=== PATIENT | female | born 1985 | race Caucasian/White ===

== ENCOUNTER → 2023-05-24 | Emergency (ER) | payer BC ==
[~2023-05-24] MED LIST: CODEINE 30MG/APAP 300MG TAB ONE; HYDROCODONE/APAP 10/325 TAB ONE; HYDROCORTISONE SUC 100 MG INJ ONE; LORAZEPAM 1 MG TABLET ONE; MORPHINE 4 MG/ML SYR ONE; NA CHLORIDE 0.9% 1,000 ML ONE; ONDANSETRON 4 MG/2 ML VIAL ONE; PROMETHAZINE 25 MG TABLET ONE; methocarbamoL 500 MG TAB ONE
--- OUTSIDE RECORDS SUMMARY | 2023-05-24 06:32 | XMS REPORT | Continuity of Care Document ---
Author Name Unknown Address [address] [facility] [address] [id number] [facility] thconnect Address [address] [facility] [address] [place] [address] Care Team Providers Care Printed Circuit Layout Taper Name Role Phone PCP, PATIENT DOES NOT HAVE A Primary Care Physic renny Unavailable HORTENCIA MACEDO Attending Clinician Unavailable HUMPHREY GOLDSTEIN Attending Clinician Unavailable Leon WYMAN, Ta Avila Attending Clinician [phone] Pcp-Lab Attending Clinician Unavailable Steve Redd MD Attending Clinician [phone] STEVE REDD Attending Clinician Unavail able Floyd Gallegos MD Attending Clinician [phone] LUC MOSER Attending Clinician Unavailable Buck Ziegler MD Attending Clinician [phone] Luc Moser MD Attending Clinician [phone] Kadie Hardin Attending Clinician UnavailEVELYN Loomis Attending Clinician UnaBARRIE Marcus Attending Clinician UnavailShilo Taylor Attending Clinician Unavailable Evelyn Hickey MD Attending Clinician [phone] Adolph WYMAN, Norbert Attending Clinician [phone] Pcp, Patient Does Not Have A Attending Clinician Vtc-Lab Attending Clinician Unavailable Bianka WYMAN, Cristina Garcia Attending Clinician +[phone] Michael WYMAN, Humphrey Attending Clinician [phone] Doctor Unassigned, Hays Attending Clinician U lilibeth Bourgeois RN, Hoa Attending Clinician Unavailable Crow RIVERS, Mary Byers Attending Clinician + [phone] DIALLO RUVALCABA Attending Clinician Unavailable Lanie WYMAN, Marcel Attending Clinician [phone] Kelly Lim MD Attending Clinician [phone] Diallo Ruvalcaba DO Attending Clinician [phone] Ty HORNE, Dequan Attending Clinician [phone] DEQUAN GHOTRA Attending Clinician Unavailable Unknown, Attending Attending Clinician Unavailab uziel Hilton MD, Jh Clinton Attending Clinician + [phone] Racheal Sierra MD Attending Clinician Unavailab le Lab, [facility] Attending Clinician Unavailable Ronn Frankel MD Attending Clinician [phone] RONN FRANKEL Attending Clinician Unavaila RACHEAL Renner Attending Clinician Unavailable Jose Juan Zepeda MD Attending Clinician [phone] REYMUNDO NOWAK Attending Clinician Unavailable Reymundo Nowak MD Attending Clinician [phone] Rolo Fuentes MD Attending Clinician + [phone] ROLO FUENTES Attending Clinician Unavailab KELLY Morales Attending Clinician Unavailab ROBERT Long II Attending Clinician Unav olamide Villaseñor MD, Haroon Attending Clinician [phone] Dina WEEKS MD, Michael James Attending Clinician Louie RIVERS, Cesar R Attending Clinician Unavailelizabeth ramírez Only, Colleen Uc Test Attending Clinician UnavailNoah De La Paz Attending Clinician [phone] NOAH MUÑOZ Attending Clinician Unavailable Cristina Foster NP Attending Clinician + [phone] CRISTINA FOSTER Attending Clinician Unavailab TA Mcknight Attending Clinician Unavaila Amber Kern Attending Clinician [phone] AMBER HURTADO Attending Clinician Unavailable Therapy, [facility] Attending Clinician Unavailable Db Daily MD Attending Clinician [phone] DB DAILY Attending Clinician Unavailable Only, Fri Cbc Test Attending Clinician Unavailab Chong Bacon DO Attending Clinician [phone] CHONG ZAAR Attending Clinician Unavail able UNKNOWN, ATTENDING Attending Clinician Unavailab uziel Camarillo RN, Belkys Attending Clinician Unavailable Gabe Dawkins MD Attending Clinician + [phone] Emily Coles Attending Clinician +[phone] [facility] Attending Clinician Unavail able Radiology Attending Clinician Unavailable RADIOLOGY Attending Clinician Unavailable Osmany Zuñiga MD Attending Clinician + [phone] OSMANY ZUÑIGA Attending Clinician Unavailable Hoa Pham MA Attending Clinician Unavailelizabeth e [facility]-Lab Attending Clinician Unavailable GABE DAWKINS Attending Clinician Unavailab Sindy Lowe Attending Clinician [phone] JENI LOMBARDI Attending Clinician Unavailable VIRGILIO UNDERWOOD Attending Clinician Unavailable Aure Smith Attending Clinician + [phone] AURE KNIGHT Attending Clinician Unavailabl Rebecca Rodriguez RN Attending Clinician Unavailable Raudel, [facility] Resident Attending Clinician Unavailab Roberta Huitron MD Attending Clinician [phone] May Moore MD Attending Clinician +- [phone] Luanne Toribio Attending Clinician +[phone] LUANNE BARCENAS Attending Clinician Unavailable SJ MEDELLIN Attending Clinician Unavailable MONCHO PEÑA Attending Clinician Unavailable Lab, [facility]-Rmchp Attending Clinician Unavailable 1, [facility] U[facility] Room Attending Clinician Unavaila Sj Beebe Attending Clinician [phone] Meera Azar MD Attending Clinician [phone] Thomas FIFTH HAND, Rosmery Attending Clinician [phone] Blessing WYMAN, Uche Avila Attending Clinician +- [phone] Fellow, Jose [facility] Attending Clinician Un available Kirsten WYMAN, Bharathi Maldonado Attending Clinician [phone] Moncho Peña Attending Clinician [phone] Felisa Orozco MD Attending Clinician [phone] Madalyn WYMAN, Zoë Crabtree Attending Clinician + [phone] Uche Barcenas Attending Clinician +[phone] Boone Jones MD Attending Clinician [phone] Lit WYMAN, Ami Attending Clinician [phone] Visit/Fp, [facility] Nurse Attending Clinician Un available Trimester, [facility] Res-1st Attending Clinician Unavailable BOONE JONES Attending Clinician Unavailable MORRICAL, BUCK O Admitting Clinician Unavaila Darin Ramirez Admitting Clinician Unavailab le Physician, No Primary or Family Admitting Clinic renny Unavailable KELLY LIM Admitting Clinician Unavailab uziel Lim MD, Kelly Shah Admitting Clinician [phone] REYMUNDO NOWAK Admitting Clinician Unavailable Reymundo Nowak MD Admitting Clinician [phone] ROBERT ARROYO II Admitting Clinician Unav olamide Arroyo II, MD, Michael James Admitting Clinician AURE KNIGHT Admitting Clinician UnavailRACHEAL Interiano Admitting Clinician Unavailable Payers Payer Name Policy Type Policy Number Effective Date Expirati on Date Source BCBS FED SELECT [id number] 2019 00:00:00 [facility] [id number] 2019 00:00:00 2023 00:00:00 Problems Condition Name Condition Details Condition Category Status Onset Date Resolution Date Last Treatment Date Treating Clinician Comments Source Sepsis Sepsis Disease Active 2023-1 0-21 00:00: 00 [facility] Elevated brain natriureti c peptide (BNP) level Elevated brain natriureti c peptide (BNP) level Disease Active 2022-05 0-21 00:00: 00 [facility] Stage 5 chronic kidney disease Stage 5 chronic kidney disease Disease Active 2022-05 0-21 00:00: 00 [facility] Symptomati c anemia Symptomati c anemia Disease Active 6- 00:00: 00 [facility] Metabolic acidosis Metabolic acidosis Disease Active 6 00:00: 00 [facility] Oral candidiasi s Oral candidiasi s Disease Active 6 00:00: 00 [facility] SOB (shortness of breath) SOB (shortness of breath) Disease Active 6 00:00: 00 [facility] Hypokalemi a Hypokalemi a Disease Active 4-20 00:00: 00 [facility] Symptomati c anemia Symptomati c anemia Disease Active 4- 00:00: 00 [facility] Fatigue Fatigue Disease Active 1- 00:00: 00 [facility] Leukocytos is Leukocytos is Disease Active 1- 00:00: 00 [facility] Bacteriuri a Bacteriuri a Disease Active 1-10 00:00: 00 [facility] Thrombocyt osis Thrombocyt osis Disease Active 1-10 00:00: 00 [facility] Hypocalcem ia Hypocalcem ia Disease Active 1-10 00:00: 00 [facility] Hypermagne semia Hypermagne semia Disease Active 1-10 00:00: 00 [facility] Elevated liver enzymes Elevated liver enzymes Disease Active 1-10 00:00: 00 [facility] COVID-19 COVID-19 Disease Active 1- 00:00: 00 [facility] Stage 4 chronic kidney disease Stage 4 chronic kidney disease Disease Active 05-27 00:00: 00 [facility] Refractive error Refractive error Disease Active 2016-05 00:00: 00 [facility] 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 Disease Active 2016-05 00:00: 00 [facility] Dehydratio n Dehydratio n Disease Active 2015-05 00:00: 00 [facility] 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 ressive medication Disease Active 2015-05 00:00: 00 [facility] Renal transplant recipient Renal transplant recipient Disease Active 2015-05 00:00: 00 [facility] 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 Disease Recurre aze 2015-05 00:00: 00 [facility] Senile nuclear sclerosis, bilateral Senile nuclear sclerosis, bilateral Disease Recurre aze 2015-05 0 00:00: 00 [facility] 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) Disease Recurre aze 2015-05 0-11 00:00: 00 [facility] Anemia of chronic renal failure, stage 5 Anemia of chronic renal failure, stage 5 Disease Recurre aze 9-23 00:00: 00 [facility] Cervical high risk human papillomav irus (HPV) DNA test positive Cervical high risk human papillomav irus (HPV) DNA test positive Disease Active 08-18 00:00: 00 [facility] Atypical squamous cells of undetermin ed significan ce (ASCUS) on Papanicola ou smear of cervix Atypical squamous cells of undetermin ed significan ce (ASCUS) on Papanicola ou smear of cervix Disease Recurre aze 08-18 00:00: 00 [facility] Failed kidney transplant Failed kidney transplant Disease Recurre aze 16 00:00: 00 Overview: Formattin g of this note might be different from the original. 08/14/2008 1st transplan t at [facility] Anxiety Anxiety Disease Recurre nce 09-13 00:00: 00 [facility] GERD (gastroeso phageal reflux disease) GERD (gastroeso phageal reflux disease) Disease Active 09-13 00:00: 00 [facility] Essential hypertensi on Essential hypertensi on Disease Recurre [facility] 07-24 00:00: 00 [facility] HTN (hypertens ion) HTN (hypertens ion) Disease Active 07-24 00:00: 00 [facility] Anemia Anemia Disease Active 05-26 00:00: 00 Overview: Formattin g of this note might be different from the original. ICD10 Diagnosis Term Mix Maker Utility [facility] HPV (human papilloma virus) anogenital infection HPV (human papilloma virus) anogenital infection Disease Recurre [facility] Hyperlipid emia Hyperlipid emia Disease Recurre [facility] Allergies, Adverse Reactions, Alerts Allergy Name Allergy Type Status Severity Reaction(s) Onset Date Inactive Date Treating Clinician Comments Source HYDRALAZ INE DRUG INGREDI Active Other-Cmnt 05-14 00:00: 00 [facility] Hydralaz ine Propensi ty to adverse reaction s Active Other - See comments 05-14 00:00: 00 Per Nephrolog ist do not take [facility] Beta-Blo ckers (Beta-Ad renergic Bloc DA Active SV halucinate and affects kidneys according to pt 2022-05 00:00: 00 [facility] hydralaz ine DA Active U COMA 2022-05 00:00: 00 [facility] TI Inhibito rs DA Active SV hallucinate and affects kidney according to pt 2022-05 00:00: 00 [facility] No Known Allergie s DA Active U 2022-05 00:00: 00 [facility] Ti Inhibito rs Propensi ty to adverse reaction s Active Other - See comments 09-02 00:00: 00 Contraind icated with CKD/FSGS [facility] Beta-Blo ckers (Beta-Ad renergic Blocking Agts) Propensi ty to adverse reaction s to drug Active Hallucinatio ns 09-02 00:00: 00 [facility] BETA-BLO CKERS (BETA-AD RENERGIC BLOCKING AGTS) Drug Class Active High Hallucinates 09-02 00:00: 00 [facility] TI INHIBITO RS Drug Class Active Other-Cmnt 09-02 00:00: 00 [facility] Ti Inhibito rs Propensi ty to adverse reaction s Active Other - See comments 09-02 00:00: 00 Contraind icated with CKD/FSGS [facility] Beta-Blo ckers (Beta-Ad renergic Blocking Agts) Propensi ty to adverse reaction s to drug Active Hallucinatio ns 09-02 00:00: 00 [facility] Social History Social Habit Start Date Stop Date Quantity Comments Source History SDOH Social Connections Get Together [facility] History SDOH Social Connections [facility] History SDOH Social Connections Membership [facility] History SDOH Social Connections Meetings [facility] Gender identity [facility] Alcohol intake 2023-05-18 00:00:00 2023-05-18 00:00:00 0 /d [facility] History of Social function 2022-11-11 00:00:00 2022-11-11 00:00:00 [facility] History SDOH Alcohol Frequency 2022-10-08 00:00:00 2022-10-08 00:00:00 1 [facility] History SDOH Social Connections Phone 2022-10-08 00:00:00 2022-10-08 00:00:00 5 [facility] History SDOH Social Connections Living 2022-10-08 00:00:00 2022-10-08 00:00:00 3 [facility] History SDOH Physical Activity DPW 2022-10-08 00:00:00 2022-10-08 00:00:00 0 [facility] History SDOH Physical Activity MPS 2022-10-08 00:00:00 2022-10-08 00:00:00 0 [facility] History SDOH Financial 2022-10-08 00:00:00 2022-10-08 00:00:00 5 [facility] History SDOH Food Worry 2022-10-08 00:00:00 2022-10-08 00:00:00 1 [facility] History SDOH Food Scarcity 2022-10-08 00:00:00 2022-10-08 00:00:00 1 [facility] History SDOH Transport Med 2022-10-08 00:00:00 2022-10-08 00:00:00 2 [facility] History SDOH Housing Unable to Pay 2022-10-08 00:00:00 2022-10-08 00:00:00 2 [facility] History SDOH Housing Places Lived 2022-10-08 00:00:00 2022-10-08 00:00:00 1 [facility] History SDOH Housing Homeless Last Year 2022-10-08 00:00:00 2022-10-08 00:00:00 2 [facility] History SDOH Transport Non-Med 2022-09-09 00:00:00 2022-09-09 00:00:00 2 [facility] Exposure to SARS-CoV-2 (event) 2022-08-29 00:00:00 2022-09-08 15:45:00 Not sure [facility] Tobacco use and exposure 2022-09-08 00:00:00 2022-09-08 00:00:00 Smokeless tobacco non-user [facility] History SDOH Alcohol Std Drinks 2022-05-11 00:00:00 2022-05-11 00:00:00 0 [facility] History SDOH Alcohol Binge 2022-05-11 00:00:00 2022-05-11 00:00:00 1 [facility] Tobacco Comment 2022-02-11 00:00:00 2022-02-11 00:00:00 n/a [facility] Sex Assigned At 1985 00:00:00 1985 00:00:00 [facility] Smoking Status Start Date Stop Date Source Never smoked tobacco [facility] Medications Ordered Medication Name Filled Medication Name Start Date Stop Date Current Medication? Ordering Clinician Indication Dosage Frequency Signature (SIG) Comments Components Source famotidine 20 mg tablet 05-18 00:00: 00 Yes [id number] 20mg Take 1 tablet by mouth in the morning and 1 tablet in the evening. [facility] sennosides- docusate sodium (SENOKOT-S) 8.6-50 mg per tablet 05-18 00:00: 00 Yes [id number] 1{tbl} Take 1 tablet by mouth in the morning. [facility] traMADoL 50 mg tablet 05-18 00:00: 00 Yes [id number] 50mg Take 1 tablet by mouth once daily as needed for Pain (scale 7-10). Indication s: acute pain [facility] famotidine 20 mg tablet 05-18 00:00: 00 Yes [id number] 20mg Take 1 tablet by mouth in the morning and 1 tablet in the evening. [facility] sennosides- docusate sodium (SENOKOT-S) 8.6-50 mg per tablet 05-18 00:00: 00 Yes [id number] 1{tbl} Take 1 tablet by mouth in the morning. [facility] traMADoL 50 mg tablet 05-18 00:00: 00 Yes [id number] 50mg Take 1 tablet by mouth once daily as needed for Pain (scale 7-10). Indication s: acute pain [facility] famotidine 20 mg tablet 05-18 00:00: 00 Yes [id number] 20mg Take 1 tablet by mouth in the morning and 1 tablet in the evening. [facility] sennosides- docusate sodium (SENOKOT-S) 8.6-50 mg per tablet 05-18 00:00: 00 Yes [id number] 1{tbl} Take 1 tablet by mouth in the morning. [facility] traMADoL 50 mg tablet 05-18 00:00: 00 Yes [id number] 50mg Take 1 tablet by mouth once daily as needed for Pain (scale 7-10). Indication s: [facility] tablet 05-18 00:00: 00 Yes [id number] 20mg Take 1 tablet by mouth in the morning and 1 tablet in the evening. [facility] sennosides- docusate sodium (SENOKOT-S) 8.6-50 mg per tablet - 00:00: 00 Yes [id number] 1{tbl} Take 1 tablet by mouth in the morning. [facility] tra[facility] mg tablet 0 05-18 00:00: 00 Yes [id number] 50mg Take 1 tablet by mouth once daily as needed for Pain (scale 7-10). Indication s: acute pain [facility] famotidine 20 mg tablet 05-18 00:00: 00 Yes [id number] 20mg Take 1 tablet by mouth in the morning and 1 tablet in the evening. [facility] sennosides- docusate sodium (SENOKOT-S) 8.6-50 mg per tablet 05-18 00:00: 00 Yes [id number] 1{tbl} Take 1 tablet by mouth in the morning. [facility] tra[facility] mg tablet 05-18 00:00: 00 Yes [id number] 50mg Take 1 tablet by mouth once daily as needed for Pain (scale 7-10). Indication s: acute pain [facility] famotidine 20 mg tablet 05-18 00:00: 00 Yes [id number] 20mg Take 1 tablet by mouth in the morning and 1 tablet in the evening. [facility] sennosides- docusate sodium (SENOKOT-S) 8.6-50 mg per tablet 05-18 00:00: 00 Yes [id number] 1{tbl} Take 1 tablet by mouth in the morning. [facility] traMADoL 50 mg tablet 0 17 00:00: 00 Yes [id number] 50mg Take 1 tablet by mouth once daily as needed for Pain (scale 7-10). Indication s: acute pain [facility] diphenhydrA MINE (BENADRYL) injection 25 mg 05-14 13:45: 00 05-14 13:38 :00 No 25mg 25 mg, Slow IV Push, ONCE, 1 dose, On 05/14/23 at 0745, [facility] [facility] metoclopram deepak HCl (REGLAN) injection 10 mg 05-14 13:45: 00 05-14 13:38 :00 No 10mg 10 mg, Slow IV Push, ONCE, 1 dose, On 05/14/23 at 0745, [facility] FENTanyl PF (SUBLIMAZE (PF)) injection 50 mcg 05-14 12:45: 00 05-14 12:02 :00 No 50ug 50 mcg, Slow IV Push, ONCE, 1 dose, On 05/14/23 at 0645, Routine [facility] ondansetron (ZOFRAN (PF)) injection 4 mg 05-14 12:00: 00 05-14 12:02 :00 No 4mg 4 mg, Slow IV Push, ONCE, 1 dose, On 05/14/23 at 0600, [facility] acetaminoph en-codeine 300-15 mg tablet 05-14 00:00: 00 Yes [id number] 1{tbl} Take 1 tablet by mouth every 8 (eight) hours. Indication s: acute pain [facility] docusate 100 mg capsule 05-14 00:00: 00 Yes [id number] 100mg Take 1 capsule by mouth in the morning. [facility] proMETHazin e 12.5 mg tablet 05-14 00:00: 00 Yes [id number] 12.5mg Take 1 tablet by mouth every 8 (eight) hours. [facility] acetaminoph en-codeine 300-15 mg tablet 05-14 00:00: 00 Yes [id number] 1{tbl} Take 1 tablet by mouth every 8 (eight) hours. Indication s: acute pain [facility] proMETHazin e 12.5 mg tablet 4-0 -13 00:00: 00 Yes [id number] 12.5mg Take 1 tablet by mouth every 8 (eight) hours. [facility] acetaminoph en-codeine 300-15 mg tablet 2023-0 -13 00:00: 00 Yes [id number] 1{tbl} Take 1 tablet by mouth every 8 (eight) hours. Indication s: acute pain [facility] proMETHazin e 12.5 mg tablet 4-0 -13 00:00: 00 Yes [id number] 12.5mg Take 1 tablet by mouth every 8 (eight) hours. [facility] acetaminoph en-codeine 300-15 mg tablet 2023-0 -13 00:00: 00 Yes [id number] 1{tbl} Take 1 tablet by mouth every 8 (eight) hours. Indication s: acute pain [facility] proMETHazin e 12.5 mg tablet 4-0 -13 00:00: 00 Yes [id number] 12.5mg Take 1 tablet by mouth every 8 (eight) hours. [facility] acetaminoph en-codeine 300-15 mg tablet 2023-0 -13 00:00: 00 Yes [id number] 1{tbl} Take 1 tablet by mouth every 8 (eight) hours. Indication s: acute pain [facility] proMETHazin e 12.5 mg tablet 2023-0 -13 00:00: 00 Yes [id number] 12.5mg Take 1 tablet by mouth every 8 (eight) hours. [facility] acetaminoph en-codeine 300-15 mg tablet 2023-0 -13 00:00: 00 Yes [id number] 1{tbl} Take 1 tablet by mouth every 8 (eight) hours. Indication s: acute pain [facility] proMETHazin e 12.5 mg tablet 4-0 -13 00:00: 00 Yes [id number] 12.5mg Take 1 tablet by mouth every 8 (eight) hours. [facility] acetaminoph en-codeine 300-15 mg tablet 4-0 -13 00:00: 00 Yes [id number] 1{tbl} Take 1 tablet by mouth every 8 (eight) hours. Indication s: acute pain [facility] proMETHazin e 12.5 mg tablet 05-14 00:00: 00 Yes [id number] 12.5mg Take 1 tablet by mouth every 8 (eight) hours. [facility] docusate 100 mg capsule - 00:00: 00 05-18 00:00 :00 No [id number] 100mg Take 1 capsule by mouth in the morning. [facility] docusate 100 mg capsule 05-14 00:00: 00 05-18 00:00 :00 No [id number] 100mg Take 1 capsule by mouth in the morning. [facility] docusate 100 mg capsule 05-14 00:00: 00 05-18 00:00 :00 No [id number] 100mg Take 1 capsule by mouth in the morning. [facility] GUANFACINE ER 2 mg tablet 2022-05 00:00: 00 Yes 2mg TAKE 1 TABLET BY MOUTH EVERY DAY IN THE MORNING [facility] GUANFACINE ER 2 mg tablet 2022-05 00:00: 00 Yes 2mg TAKE 1 TABLET BY MOUTH EVERY DAY IN THE MORNING [facility] GUANFACINE ER 2 mg tablet 2022-05 00:00: 00 Yes 2mg TAKE 1 TABLET BY MOUTH EVERY DAY IN THE MORNING [facility] GUANFACINE ER 2 mg tablet 2022-05 00:00: 00 Yes 2mg TAKE 1 TABLET BY MOUTH EVERY DAY IN THE MORNING [facility] GUANFACINE ER 2 mg tablet 2022-05 00:00: 00 Yes 2mg TAKE 1 TABLET BY MOUTH EVERY DAY IN THE MORNING [facility] GUANFACINE ER 2 mg tablet 2022-05 00:00: 00 Yes 2mg TAKE 1 TABLET BY MOUTH EVERY DAY IN THE MORNING [facility] GUANFACINE ER 2 mg tablet 2022-05 00:00: 00 Yes 2mg TAKE 1 TABLET BY MOUTH EVERY DAY IN THE MORNING [facility] GUANFACINE ER 2 mg tablet 2022-05 00:00: 00 Yes 2mg TAKE 1 TABLET BY MOUTH EVERY DAY IN THE MORNING [facility] GUANFACINE ER 2 mg tablet 2022-05 00:00: 00 Yes 2mg TAKE 1 TABLET BY MOUTH EVERY DAY IN THE MORNING [facility] GUANFACINE ER 2 mg tablet 2022-05 00:00: 00 Yes 2mg TAKE 1 TABLET BY MOUTH EVERY DAY IN THE MORNING [facility] guanFACINE ER 2 mg tablet 2022-05 00:00: 00 Yes 2mg Take 1 tablet by mouth in the morning. [facility] guanFACINE ER 2 mg tablet 2022-05 00:00: 00 Yes 2mg Take 1 tablet by mouth in the morning. [facility] sodium bicarbonate 650 mg tablet 2022-05 00:00: 00 Yes [id number] 1300mg Take 2 tablets by mouth in the morning and 2 tablets at noon and 2 tablets in the evening. [facility] guanFACINE ER 2 mg tablet 2022-05 00:00: 00 Yes 2mg Take 1 tablet by mouth in the morning. [facility] sodium bicarbonate 650 mg tablet 2022-05 00:00: 00 Yes [id number] 1300mg Take 2 tablets by mouth in the morning and 2 tablets at noon and 2 tablets in the evening. [facility] guanFACINE ER 2 mg tablet 2022-05 00:00: 00 Yes 2mg Take 1 tablet by mouth in the morning. [facility] sodium bicarbonate 650 mg tablet 2022-05 00:00: 00 Yes [id number] 1300mg Take 2 tablets by mouth in the morning and 2 tablets at noon and 2 tablets in the evening. [facility] sodium bicarbonate 650 mg tablet 2022-05 00:00: 00 Yes [id number] 1300mg Take 2 tablets by mouth in the morning and 2 tablets at noon and 2 tablets in the evening. [facility] sodium bicarbonate 650 mg tablet 2022-05 00:00: 00 Yes [id number] 1300mg Take 2 tablets by mouth in the morning and 2 tablets at noon and 2 tablets in the evening. [facility] sodium bicarbonate 650 mg tablet 2022-05 00:00: 00 Yes [id number] 1300mg Take 2 tablets by mouth in the morning and 2 tablets at noon and 2 tablets in the evening. [facility] sodium bicarbonate 650 mg tablet 2022-05 00:00: 00 Yes [id number] 1300mg Take 2 tablets by mouth in the morning and 2 tablets at noon and 2 tablets in the evening. [facility] sodium bicarbonate 650 mg tablet 2022-05 00:00: 00 Yes [id number] 1300mg Take 2 tablets by mouth in the morning and 2 tablets at noon and 2 tablets in the evening. [facility] sodium bicarbonate 650 mg tablet 2022-05 00:00: 00 Yes [id number] 1300mg Take 2 tablets by mouth in the morning and 2 tablets at noon and 2 tablets in the evening. [facility] sodium bicarbonate 650 mg tablet 2022-05 00:00: 00 Yes [id number] 1300mg Take 2 tablets by mouth in the morning and 2 tablets at noon and 2 tablets in the evening. [facility] sodium bicarbonate 650 mg tablet 2022-05 00:00: 00 Yes [id number] 1300mg Take 2 tablets by mouth in the morning and 2 tablets at noon and 2 tablets in the evening. [facility] sodium bicarbonate 650 mg tablet 2022-05 00:00: 00 Yes [id number] 1300mg Take 2 tablets by mouth in the morning and 2 tablets at noon and 2 tablets in the evening. [facility] sodium bicarbonate 650 mg tablet 2022-05 00:00: 00 Yes [id number] 1300mg Take 2 tablets by mouth in the morning and 2 tablets at noon and 2 tablets in the evening. [facility] sodium bicarbonate 650 mg tablet 2022-05 00:00: 00 Yes [id number] 1300mg Take 2 tablets by mouth in the morning and 2 tablets at noon and 2 tablets in the evening. [facility] guanFACINE ER 2 mg tablet 2022-05 00:00: 00 04-21 00:00 :00 No 2mg Take 1 tablet by mouth in the morning. [facility] fluticasone propionate 50 mcg/actuati on nasal spray 2022-05 00:00: 00 Yes [id number] 2{spray } Use 2 Sprays in each nostril in the morning and 2 Sprays in the evening. [facility] fluticasone propionate 50 mcg/actuati on nasal spray 2022-05 00:00: 00 Yes [id number] 2{spray } Use 2 Sprays in each nostril in the morning and 2 Sprays in the evening. [facility] fluticasone propionate 50 mcg/actuati on nasal spray 2022-05 00:00: 00 Yes [id number] 2{spray } Use 2 Sprays in each nostril in the morning and 2 Sprays in the evening. [facility] fluticasone propionate 50 mcg/actuati on nasal spray 2022-05 00:00: 00 Yes [id number] 2{spray } Use 2 Sprays in each nostril in the morning and 2 Sprays in the evening. [facility] fluticasone propionate 50 mcg/actuati on nasal spray 2022-05 00:00: 00 Yes [id number] 2{spray } Use 2 Sprays in each nostril in the morning and 2 Sprays in the evening. [facility] fluticasone propionate 50 mcg/actuati on nasal spray 2022-05 00:00: 00 Yes [id number] 2{spray } Use 2 Sprays in each nostril in the morning and 2 Sprays in the evening. [facility] fluticasone propionate 50 mcg/actuati on nasal spray 2022-05 00:00: 00 Yes [id number] 2{spray } Use 2 Sprays in each nostril in the morning and 2 Sprays in the evening. [facility] fluticasone propionate 50 mcg/actuati on nasal spray 2022-05 00:00: 00 Yes [id number] 2{spray } Use 2 Sprays in each nostril in the morning and 2 Sprays in the evening. [facility] fluticasone propionate 50 mcg/actuati on nasal spray 2022-05 00:00: 00 Yes [id number] 2{spray } Use 2 Sprays in each nostril in the morning and 2 Sprays in the evening. [facility] fluticasone propionate 50 mcg/actuati on nasal spray 2022-05 00:00: 00 Yes [id number] 2{spray } Use 2 Sprays in each nostril in the morning and 2 Sprays in the evening. [facility] fluticasone propionate 50 mcg/actuati on nasal spray 2022-05 00:00: 00 Yes [id number] 2{spray } Use 2 Sprays in each nostril in the morning and 2 Sprays in the evening. [facility] fluticasone propionate 50 mcg/actuati on nasal spray 2022-05 00:00: 00 Yes [id number] 2{spray } Use 2 Sprays in each nostril in the morning and 2 Sprays in the evening. [facility] fluticasone propionate 50 mcg/actuati on nasal spray 2022-05 00:00: 00 Yes [id number] 2{spray } Use 2 Sprays in each nostril in the morning and 2 Sprays in the evening. [facility] fluticasone propionate 50 mcg/actuati on nasal spray 2022-05 00:00: 00 Yes [id number] 2{spray } Use 2 Sprays in each nostril in the morning and 2 Sprays in the evening. [facility] fluticasone propionate 50 mcg/actuati on nasal spray 2022-05 00:00: 00 Yes [id number] 2{spray } Use 2 Sprays in each nostril in the morning and 2 Sprays in the evening. [facility] fluticasone propionate 50 mcg/actuati on nasal spray 2022-05 00:00: 00 Yes [id number] 2{spray } Use 2 Sprays in each nostril in the morning and 2 Sprays in the evening. [facility] fluticasone propionate 50 mcg/actuati on nasal spray 2022-05 00:00: 00 Yes [id number] 2{spray } Use 2 Sprays in each nostril in the morning and 2 Sprays in the evening. [facility] fluticasone propionate 50 mcg/actuati on nasal spray 2022-05 00:00: 00 Yes [id number] 2{spray } Use 2 Sprays in each nostril in the morning and 2 Sprays in the evening. [facility] fluticasone propionate 50 mcg/actuati on nasal spray 2022-05 00:00: 00 Yes [id number] 2{spray } Use 2 Sprays in each nostril in the morning and 2 Sprays in the evening. [facility] fluticasone propionate 50 mcg/actuati on nasal spray 2022-05 00:00: 00 Yes [id number] 2{spray } Use 2 Sprays in each nostril in the morning and 2 Sprays in the evening. [facility] fluticasone propionate 50 mcg/actuati on nasal spray 2022-05 00:00: 00 03-04 00:00 :00 No [id number] 2{spray } Use 2 Sprays in each nostril in the morning and 2 Sprays in the evening. [facility] sodium bicarbonate 650 mg tablet 2022-05 00:00: 00 Yes [id number] 1300mg Take 2 tablets by mouth in the morning and 2 tablets in the evening. [facility] sodium bicarbonate 650 mg tablet 2022-05 00:00: 00 Yes [id number] 1300mg Take 2 tablets by mouth in the morning and 2 tablets in the evening. [facility] sodium bicarbonate 650 mg tablet 2022-05 00:00: 00 Yes [id number] 1300mg Take 2 tablets by mouth in the morning and 2 tablets in the evening. [facility] sodium bicarbonate 650 mg tablet 2022-05 00:00: 00 Yes [id number] 1300mg Take 2 tablets by mouth in the morning and 2 tablets in the evening. [facility] sodium bicarbonate 650 mg tablet 2022-05 0- 00:00: 00 Yes [id number] 1300mg Take 2 tablets by mouth in the morning and 2 tablets in the evening. [facility] sodium bicarbonate 650 mg tablet 2022-05 0- 00:00: 00 Yes [id number] 1300mg Take 2 tablets by mouth in the morning and 2 tablets in the evening. [facility] sodium bicarbonate 650 mg tablet 2022-05 0 00:00: 00 Yes [id number] 1300mg Take 2 tablets by mouth in the morning and 2 tablets in the evening. [facility] sodium bicarbonate 650 mg tablet 2022-05 0 00:00: 00 Yes [id number] 1300mg Take 2 tablets by mouth in the morning and 2 tablets in the evening. [facility] sodium bicarbonate 650 mg tablet 2022-05 0 00:00: 00 Yes [id number] 1300mg Take 2 tablets by mouth in the morning and 2 tablets in the evening. [facility] sodium bicarbonate 650 mg tablet 2022-05 0 00:00: 00 Yes [id number] 1300mg Take 2 tablets by mouth in the morning and 2 tablets in the evening. [facility] sodium bicarbonate 650 mg tablet 2022-05 0 00:00: 00 Yes [id number] 1300mg Take 2 tablets by mouth in the morning and 2 tablets in the evening. [facility] sodium bicarbonate 650 mg tablet 2022-05 0 00:00: 00 Yes [id number] 1300mg Take 2 tablets by mouth in the morning and 2 tablets in the evening. [facility] sodium bicarbonate 650 mg tablet 2022-05 0 00:00: 00 03-28 00:00 :00 No [id number] 1300mg Take 2 tablets by mouth in the morning and 2 tablets in the evening. [facility] sodium bicarbonate 650 mg tablet 2022-05 0- 00:00: 00 03-28 00:00 :00 No [id number] 1300mg Take 2 tablets by mouth in the morning and 2 tablets in the evening. [facility] aspirin 81 mg EC tablet 2022-05 0-30 00:00: 00 Yes 81mg Take 1 tablet by mouth in the morning. [facility]-05 0-30 00:00: 00 Yes 81mg Take 1 tablet by mouth in the morning. [facility] aspirin 81 mg EC tablet 2022-05 0-30 00:00: 00 Yes 81mg Take 1 tablet by mouth in the morning. [facility] aspirin 81 mg EC tablet 2022-05 0-30 00:00: 00 Yes 81mg Take 1 tablet by mouth in the morning. [facility] aspirin 81 mg EC tablet 2022-05 0-30 00:00: 00 Yes 81mg Take 1 tablet by mouth in the morning. [facility] aspirin 81 mg EC tablet 2022-05 0-30 00:00: 00 Yes 81mg Take 1 tablet by mouth in the morning. [facility] aspirin 81 mg EC tablet 2022-05 0-30 00:00: 00 Yes 81mg Take 1 tablet by mouth in the morning. [facility] aspirin 81 mg EC tablet 2022-05 0-30 00:00: 00 Yes 81mg Take 1 tablet by mouth in the morning. [facility] aspirin 81 mg EC tablet 2022-05 0-30 00:00: 00 Yes 81mg Take 1 tablet by mouth in the morning. [facility] aspirin 81 mg EC tablet 2022-05 0-30 00:00: 00 Yes 81mg Take 1 tablet by mouth in the morning. [facility] aspirin 81 mg EC tablet 2022-05 0-30 00:00: 00 Yes 81mg Take 1 tablet by mouth in the morning. [facility] aspirin 81 mg EC tablet 2022-1 0-30 00:00: 00 Yes 81mg Take 1 tablet by mouth in the morning. [facility] aspirin 81 mg EC tablet 2022-1 0-30 00:00: 00 Yes 81mg Take 1 tablet by mouth in the morning. [facility] aspirin 81 mg EC tablet 2022- 0-30 00:00: 00 Yes 81mg Take 1 tablet by mouth in the morning. [facility] aspirin 81 mg EC tablet 2022-05 0-30 00:00: 00 Yes 81mg Take 1 tablet by mouth in the morning. [facility] aspirin 81 mg EC tablet 2022-05 0-30 00:00: 00 Yes 81mg Take 1 tablet by mouth in the morning. [facility] 2022-05 0-30 00:00: 00 Yes 81mg Take 1 tablet by mouth in the morning. [facility] 2022-05 0-30 00:00: 00 Yes 81mg Take 1 tablet by mouth in the morning. [facility] 2022-05 0-30 00:00: 00 Yes 81mg Take 1 tablet by mouth in the morning. [facility] 2022-05 0-30 00:00: 00 Yes 81mg Take 1 tablet by mouth in the morning. [facility] aspirin 81 mg EC tablet 2022-05 0-30 00:00: 00 Yes 81mg Take 1 tablet by mouth in the morning. [facility] aspirin 81 mg EC tablet 2022-05 030 00:00: 00 Yes 81mg Take 1 tablet by mouth in the morning. [facility] aspirin 81 mg EC tablet 2022-05 0-30 00:00: 00 Yes 81mg Take 1 tablet by mouth in the morning. [facility] aspirin 81 mg EC tablet 2022- 0-30 00:00: 00 Yes 81mg Take 1 tablet by mouth in the morning. [facility] aspirin 81 mg EC tablet 2022-05 0-30 00:00: 00 Yes 81mg Take 1 tablet by mouth in the morning. [facility] aspirin 81 mg EC tablet 2022-1 0-30 00:00: 00 Yes 81mg Take 1 tablet by mouth in the morning. [facility] aspirin 81 mg EC tablet 2022- 0-30 00:00: 00 Yes 81mg Take 1 tablet by mouth in the morning. [facility] aspirin 81 mg EC tablet 2022-1 0-30 00:00: 00 Yes 81mg Take 1 tablet by mouth in the morning. [facility] aspirin 81 mg EC tablet 2022-05 00:00: 00 Yes 81mg Take 1 tablet by mouth in the morning. [facility] aspirin 81 mg EC tablet 2022-05 00:00: 00 Yes 81mg Take 1 tablet by mouth in the morning. [facility] aspirin 81 mg EC tablet 2022-05 00:00: 00 Yes 81mg Take 1 tablet by mouth in the morning. [facility] mycophenola te sodium (MYFORTIC) EC tablet 720 mg 2022-05 14:00: 00 Yes 720mg 720 mg, Oral, QAM, First dose (after last modificati on) on 02/21/23 at 0900, Until Discontinu ed, Routine
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 [facility] hydrOXYzine (ATARAX) tablet 25 mg 2022-05 03:18: 00 02-21 03:59 :00 No 25mg 25 mg, Oral, ONCE, 1 dose, On 02/20/23 at 2230, Routine [facility] fluconazole 100 mg tablet 2022-05 00:00: 00 Yes [id number] 100mg Take 1 tablet by mouth in the morning. [facility] fluconazole 100 mg tablet 2022-05 00:00: 00 Yes [id number] 100mg Take 1 tablet by mouth in the morning. [facility] fluconazole 100 mg tablet 2022-05 00:00: 00 Yes [id number] 100mg Take 1 tablet by mouth in the morning. [facility] fluconazole 100 mg tablet 2022-05 00:00: 00 Yes [id number] 100mg Take 1 tablet by mouth in the morning. [facility] cefdinir 300 mg capsule 2022-05 00:00: 00 03-04 04:59 :00 No [id number] 300mg Take 1 capsule by mouth every 12 (twelve) hours for 10 days. [facility] cefdinir 300 mg capsule 2022- 0-23 00:00: 00 03-04 04:59 :00 No [id number] 300mg Take 1 capsule by mouth every 12 (twelve) hours for 10 days. [facility] cefdinir 300 mg capsule 2022- 0-23 00:00: 00 03-04 04:59 :00 No [id number] 300mg Take 1 capsule by mouth every 12 (twelve) hours for 10 days. [facility] cefdinir 300 mg capsule 2022- 0-23 00:00: 00 03-04 04:59 :00 No [id number] 300mg Take 1 capsule by mouth every 12 (twelve) hours for 10 days. [facility] cefdinir 300 mg capsule 2022- 0-23 00:00: 00 03-04 04:59 :00 No [id number] 300mg Take 1 capsule by mouth every 12 (twelve) hours for 10 days. [facility] cefdinir 300 mg capsule 2022- 0-23 00:00: 00 03-04 04:59 :00 No [id number] 300mg Take 1 capsule by mouth every 12 (twelve) hours for 10 days. [facility] cefdinir 300 mg capsule 2022- 0-23 00:00: 00 03-04 04:59 :00 No [id number] 300mg Take 1 capsule by mouth every 12 (twelve) hours for 10 days. [facility] cefdinir 300 mg capsule 2022- 0-23 00:00: 00 03-04 04:59 :00 No [id number] 300mg Take 1 capsule by mouth every 12 (twelve) hours for 10 days. [facility] cefdinir 300 mg capsule 2022- 0-23 00:00: 00 03-04 04:59 :00 No [id number] 300mg Take 1 capsule by mouth every 12 (twelve) hours for 10 days. [facility] cefdinir 300 mg capsule 2022- 0-23 00:00: 00 03-04 04:59 :00 No [id number] 300mg Take 1 capsule by mouth every 12 (twelve) hours for 10 days. [facility] cefdinir 300 mg capsule 2022-05 0 00:00: 00 03-04 04:59 :00 No [id number] 300mg Take 1 capsule by mouth every 12 (twelve) hours for 10 days. [facility] cefdinir 300 mg capsule 2022-05 00:00: 00 03-04 04:59 :00 No [id number] 300mg Take 1 capsule by mouth every 12 (twelve) hours for 10 days. [facility] cefdinir 300 mg capsule 2022-05 00:00: 00 03-04 04:59 :00 No [id number] 300mg Take 1 capsule by mouth every 12 (twelve) hours for 10 days. [facility] cefdinir 300 mg capsule 2022-05 00:00: 03-04 04:59 :00 No [id number] 300mg Take 1 capsule by mouth every 12 (twelve) hours for 10 days. [facility] fluconazole 100 mg tablet 2022-05 00:00: 00 02-28 00:00 :00 No [id number] 100mg Take 1 tablet by mouth in the morning. [facility] fluconazole 100 mg tablet 2022-05 00:00: 00 02-28 00:00 :00 No [id number] 100mg Take 1 tablet by mouth in the morning. [facility] fluconazole 100 mg tablet 2022-05 00:00: 00 02-28 00:00 :00 No [id number] 100mg Take 1 tablet by mouth in the morning. [facility] fluconazole 100 mg tablet 2022-05 00:00: 00 02-28 00:00 :00 No [id number] 100mg Take 1 tablet by mouth in the morning. [facility] mycophenola te sodium (MYFORTIC) EC tablet 360 mg 2022-05 0 22:00: 00 Yes 360mg 360 mg, Oral, QPM, First dose on [place] 02/20/23 at 1700, Until Discontinu ed, Routine
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
Reas on for Anti-Infec tive: Documented Infection< br>Documen josué Infection Site: Urine
D uration of Therapy: 7 days [facility] famotidine (PEPCID AC) tablet 20 mg 2022-05 14:00: 00 Yes 20mg 20 mg, Oral, DAILY, First dose on [place] 02/20/23 at 0900, Until Discontinu ed [facility] predniSONE (DELTASONE) tablet 10 mg 2022-05 14:00: 00 Yes 10mg 10 mg, Oral, DAILY, First dose on [place] 02/20/23 at 0900, Until Discontinu ed, Routine [facility] guanFACINE (TENEX) tablet 2 mg 2022-05 03:30: 00 Yes 2mg 2 mg, Oral, QHS, First dose on [facility] 02/19/23 at 2230, Until Discontinu ed, Routine [facility] pravastatin (PRAVACHOL) tablet 20 mg 2022-05 02:00: 00 Yes 20mg 20 mg, Oral, QHS, First dose on [facility] 02/19/23 at 2100, Until Discontinu ed, Routine [facility] albuterol (PROVENTIL) 2.5 mg /3 mL (0.083 %) nebulizer solution 2.5 mg 2022-05 01:27: 14 Yes 2.5mg 2.5 mg, Inhalation , Q4HPRN, Starting on [facility] 02/19/23 at 2027, Until Discontinu ed, Routine, Shortness of Breath, Wheezing [facility] sodium bicarbonate (ANTACID (SODIUM BICARBONATE )) tablet 650 mg 2022-05 01:00: 00 Yes 650mg 650 mg, Oral, BID, First dose on 02/19/23 at 2000, Until Discontinu ed, Routine [facility] diltiazem XR (DILT-XR) capsule 240 mg 2022-05 01:00: 00 Yes 240mg 240 mg, Oral, BID, First dose on 02/19/23 at 2000, Until Discontinu ed, Routine [facility] mycophenola te sodium (MYFORTIC) EC tablet 360 mg 2022-05 01:00: 00 02-20 13:47 :22 No 360mg 360 mg, Oral, Q12H, First dose on 02/19/23 at 1999, Until Discontinu ed, Routine
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 [facility] vancomycin (VANCOCIN) 1,000 mg in NaCl 0.9% (NS) 250 mL VIAL-MATE IV piggyback 2022-05 15:30: 00 02-19 18:16 :00 No 15mg/kg 1,000 mg (rounded from 1,002 mg = 15 mg/kg ?66.8 kg), IV Piggyback, ONCE, 1 dose, On 02/19/23 at 1030, Administer over 60 Minutes, 250 mL
Reas on for Anti-Infec tive: Documented Infection& lt;br>Docu mented Infection Site: Urine
D uration of Therapy: 7 days [facility] cefTRIAXone (ROCEPHIN) 1,000 mg in NaCl 0.9% (NS) 100 mL MINI-BAG 2022-05 14:45: 00 02-19 16:34 :00 No 1000mg 1,000 mg, IV Piggyback, ONCE, 1 dose, On 02/19/23 at 0945, Administer over 30 Minutes, 100 mL
Reas on for Anti-Infec tive: Documented Infection< br>Documen josué Infection Site: Other
O ther site: sepsis
Duration of Therapy: 7 days [facility] ondansetron (ZOFRAN (PF)) injection 4 mg 2022-05 13:15: 00 02-19 14:02 :00 No 4mg 4 mg, Slow IV Push, ONCE, 1 dose, On 02/19/23 at 0815, [facility] acetaminoph en (TYLENOL) tablet 650 mg 2022-05 13:15: 00 02-19 13:15 :00 No 650mg 650 mg, Oral, ONCE, 1 dose, On 02/19/23 at 0815, [facility] NaCl 0.9% (NS) bolus infusion 1,000 mL 2022-05 13:15: 00 02-19 17:02 :00 No 1000mL at 999 mL/hr, 1,000 mL, IV Infusion, ONCE, 1 dose, On 02/19/23 at 0815, [place] [facility] albuterol 90 mcg/actuati on inhaler 2022-05 0 00:00: 00 Yes [id number] 2{puff} Inhale 2 Puffs every 6 (six) hours as needed for Wheezing or Shortness of Breath. [facility] albuterol 90 mcg/actuati on inhaler 2022-05 020 00:00: 00 Yes [id number] 2{puff} Inhale 2 Puffs every 6 (six) hours as needed for Wheezing or Shortness of Breath. [facility] benzonatate (TESSALON PERLES) 100 mg capsule 2022-05 0 00:00: 00 03-01 04:59 :00 No [id number] 100mg Take 1 capsule by mouth every 8 (eight) hours as needed for Cough for up to 10 days. [facility] benzonatate (TESSALON PERLES) 100 mg capsule 2022-05 0 00:00: 00 03-01 04:59 :00 No [id number] 100mg Take 1 capsule by mouth every 8 (eight) hours as needed for Cough for up to 10 days. [facility] ciprofloxac in-dexameth asone 0.3-0.1 % otic drops 2022-05 020 00:00: 00 02-26 04:59 :00 No [id number] 4[drp] Place 4 Drops in left ear in the morning and 4 Drops in the evening. Do all this for 7 days. [facility] ciprofloxac in-dexameth asone 0.3-0.1 % otic drops 2022-05 020 00:00: 00 02-26 04:59 :00 No [id number] 4[drp] Place 4 Drops in left ear in the morning and 4 Drops in the evening. Do all this for 7 days. [facility] doxycycline hyclate 100 mg tablet 2022-05 020 00:00: 00 02-24 04:59 :00 No [id number] 100mg Take 1 tablet by mouth in the morning and 1 tablet in the evening. Do all this for 5 days. [facility] doxycycline hyclate 100 mg tablet 2022-05 0-20 00:00: 00 02-24 04:59 :00 No [id number] 100mg Take 1 tablet by mouth in the morning and 1 tablet in the evening. Do all this for 5 days. [facility] doxycycline hyclate 100 mg tablet 2022-05 0-20 00:00: 00 02-19 00:00 :00 No [id number] 100mg Take 1 tablet by mouth in the morning and 1 tablet in the evening. Do all this for 5 days. [facility] ciprofloxac in-dexameth asone 0.3-0.1 % otic drops 2022-05 0-20 00:00: 00 02-19 00:00 :00 No [id number] 4[drp] Place 4 Drops in left ear in the morning and 4 Drops in the evening. Do all this for 7 days. [facility] benzonatate (TESSALON PERLES) 100 mg capsule 2022-05 0-20 00:00: 00 02-19 00:00 :00 No [id number] 100mg Take 1 capsule by mouth every 8 (eight) hours as needed for Cough for up to 10 days. [facility] albuterol 90 mcg/actuati on inhaler 2022-05 0-20 00:00: 00 02-19 00:00 :00 No [id number] 2{puff} Inhale 2 Puffs every 6 (six) hours as needed for Wheezing or Shortness of Breath. [facility] doxycycline hyclate 100 mg tablet 2022-05 0-20 00:00: 00 02-19 00:00 :00 No [id number] 100mg Take 1 tablet by mouth in the morning and 1 tablet in the evening. Do all this for 5 days. [facility] ciprofloxac in-dexameth asone 0.3-0.1 % otic drops 2022-05 0-20 00:00: 00 02-19 00:00 :00 No [id number] 4[drp] Place 4 Drops in left ear in the morning and 4 Drops in the evening. Do all this for 7 days. [facility] benzonatate (TESSALON PERLES) 100 mg capsule 2022-05 0 00:00: 00 02-19 00:00 :00 No [id number] 100mg Take 1 capsule by mouth every 8 (eight) hours as needed for Cough for up to 10 days. [facility] albuterol 90 mcg/actuati on inhaler 2022-05 00:00: 00 02-19 00:00 :00 No [id number] 2{puff} Inhale 2 Puffs every 6 (six) hours as needed for Wheezing or Shortness of Breath. [facility] aspirin 81 mg Cap 2022-0 - 11:41: 00 Yes Take by mouth. [facility] aspirin 81 mg Cap 2022-0 9-25 11:41: 00 Yes Take by mouth. [facility] aspirin 81 mg Cap 2022-0 -25 11:41: 00 Yes Take by mouth. [facility] aspirin 81 mg Cap 2022-0 9-25 11:41: 00 Yes Take by mouth. [facility] aspirin 81 mg Cap 2022-0 9-25 11:41: 00 Yes Take by mouth. [facility] aspirin 81 mg Cap 2022-0 9-25 11:41: 00 Yes Take by mouth. [facility] aspirin 81 mg Cap 2022-0 9-25 11:41: 00 Yes Take by mouth. [facility] aspirin 81 mg Cap 2022-0 9-25 11:41: 00 Yes Take by mouth. [facility] aspirin 81 mg Cap 3-0 9-25 11:41: 00 Yes Take by mouth. [facility] aspirin 81 mg Cap 2022-0 9-25 11:41: 00 Yes Take by mouth. [facility] aspirin 81 mg Cap 2022-0 9-25 11:41: 00 Yes Take by mouth. [facility] aspirin 81 mg Cap 2022-0 9-25 11:41: 00 Yes Take by mouth. [facility] guanFACINE ER 2 mg tablet 01-24 00:00: 00 Yes [id number] 2mg Take 1 tablet by mouth at bedtime. [facility] mycophenola te sodium 360 mg EC tablet 01-24 00:00: 00 Yes [id number] Take 2 tablets by mouth every morning AND 1 tablet every evening. [facility] diltiazem XR 240 mg 24 hr capsule 01-24 00:00: 00 Yes [id number] 240mg Take 1 capsule by mouth in the morning and 1 capsule in the evening. [facility] predniSONE 10 mg tablet 01-24 00:00: 00 Yes [id number] 10mg Take 1 tablet by mouth in the morning. [facility] sodium bicarbonate 650 mg tablet 01-24 00:00: 00 Yes [id number] 650mg Take 1 tablet by mouth in the morning and 1 tablet in the evening. [facility] guanFACINE ER 2 mg tablet 01-24 00:00: 00 Yes [id number] 2mg Take 1 tablet by mouth at bedtime. [facility] mycophenola te sodium 360 mg EC tablet 01-24 00:00: 00 Yes [id number] Take 2 tablets by mouth every morning AND 1 tablet every evening. [facility] diltiazem XR 240 mg 24 hr capsule 01-24 00:00: 00 Yes [id number] 240mg Take 1 capsule by mouth in the morning and 1 capsule in the evening. [facility] predniSONE 10 mg tablet 01-24 00:00: 00 Yes [id number] 10mg Take 1 tablet by mouth in the morning. [facility] sodium bicarbonate 650 mg tablet 01-24 00:00: 00 Yes [id number] 650mg Take 1 tablet by mouth in the morning and 1 tablet in the evening. [facility] guanFACINE ER 2 mg tablet 01-24 00:00: 00 Yes [id number] 2mg Take 1 tablet by mouth at bedtime. [facility] mycophenola te sodium 360 mg EC tablet 01-24 00:00: 00 Yes [id number] Take 2 tablets by mouth every morning AND 1 tablet every evening. [facility] diltiazem XR 240 mg 24 hr capsule 01-24 00:00: 00 Yes [id number] 240mg Take 1 capsule by mouth in the morning and 1 capsule in the evening. [facility] predniSONE 10 mg tablet 01-24 00:00: 00 Yes [id number] 10mg Take 1 tablet by mouth in the morning. [facility] sodium bicarbonate 650 mg tablet 01-24 00:00: 00 Yes [id number] 650mg Take 1 tablet by mouth in the morning and 1 tablet in the evening. [facility] guanFACINE ER 2 mg tablet 01-24 00:00: 00 Yes [id number] 2mg Take 1 tablet by mouth at bedtime. [facility] mycophenola te sodium 360 mg EC tablet 01-24 00:00: 00 Yes [id number] Take 2 tablets by mouth every morning AND 1 tablet every evening. [facility] diltiazem XR 240 mg 24 hr capsule 01-24 00:00: 00 Yes [id number] 240mg Take 1 capsule by mouth in the morning and 1 capsule in the evening. [facility] predniSONE 10 mg tablet 01-24 00:00: 00 Yes [id number] 10mg Take 1 tablet by mouth in the morning. [facility] sodium bicarbonate 650 mg tablet 01-24 00:00: 00 Yes [id number] 650mg Take 1 tablet by mouth in the morning and 1 tablet in the evening. [facility] mycophenola te sodium 360 mg EC tablet 01-24 00:00: 00 Yes [id number] Take 2 tablets by mouth every morning AND 1 tablet every evening. [facility] diltiazem XR 240 mg 24 hr capsule 01-24 00:00: 00 Yes [id number] 240mg Take 1 capsule by mouth in the morning and 1 capsule in the evening. [facility] predniSONE 10 mg tablet 01-24 00:00: 00 Yes [id number] 10mg Take 1 tablet by mouth in the morning. [facility] sodium bicarbonate 650 mg tablet 0 01-24 00:00: 00 Yes [id number] 650mg Take 1 tablet by mouth in the morning and 1 tablet in the evening. [facility] mycophenola te sodium 360 mg EC tablet 01-24 00:00: 00 Yes [id number] Take 2 tablets by mouth every morning AND 1 tablet every evening. [facility] diltiazem XR 240 mg 24 hr capsule 01-24 00:00: 00 Yes [id number] 240mg Take 1 capsule by mouth in the morning and 1 capsule in the evening. [facility] predniSONE 10 mg tablet 01-24 00:00: 00 Yes [id number] 10mg Take 1 tablet by mouth in the morning. [facility] sodium bicarbonate 650 mg tablet 01-24 00:00: 00 Yes [id number] 650mg Take 1 tablet by mouth in the morning and 1 tablet in the evening. [facility] mycophenola te sodium 360 mg EC tablet 01-24 00:00: 00 Yes [id number] Take 2 tablets by mouth every morning AND 1 tablet every evening. [facility] diltiazem XR 240 mg 24 hr capsule 01-24 00:00: 00 Yes [id number] 240mg Take 1 capsule by mouth in the morning and 1 capsule in the evening. [facility] predniSONE 10 mg tablet 0 01-24 00:00: 00 Yes [id number] 10mg Take 1 tablet by mouth in the morning. [facility] sodium bicarbonate 650 mg tablet 0 01-24 00:00: 00 Yes [id number] 650mg Take 1 tablet by mouth in the morning and 1 tablet in the evening. [facility] mycophenola te sodium 360 mg EC tablet 01-24 00:00: 00 Yes [id number] Take 2 tablets by mouth every morning AND 1 tablet every evening. [facility] diltiazem XR 240 mg 24 hr capsule 2022-0 01-24 00:00: 00 Yes [id number] 240mg Take 1 capsule by mouth in the morning and 1 capsule in the evening. [facility] predniSONE 10 mg tablet 01-24 00:00: 00 Yes [id number] 10mg Take 1 tablet by mouth in the morning. [facility] sodium bicarbonate 650 mg tablet 01-24 00:00: 00 Yes [id number] 650mg Take 1 tablet by mouth in the morning and 1 tablet in the evening. [facility] mycophenola te sodium 360 mg EC tablet 01-24 00:00: 00 Yes [id number] Take 2 tablets by mouth every morning AND 1 tablet every evening. [facility] diltiazem XR 240 mg 24 hr capsule 01-24 00:00: 00 Yes [id number] 240mg Take 1 capsule by mouth in the morning and 1 capsule in the evening. [facility] predniSONE 10 mg tablet 01-24 00:00: 00 Yes [id number] 10mg Take 1 tablet by mouth in the morning. [facility] sodium bicarbonate 650 mg tablet 01-24 00:00: 00 Yes [id number] 650mg Take 1 tablet by mouth in the morning and 1 tablet in the evening. [facility] mycophenola te sodium 360 mg EC tablet 01-24 00:00: 00 Yes [id number] Take 2 tablets by mouth every morning AND 1 tablet every evening. [facility] diltiazem XR 240 mg 24 hr capsule 01-24 00:00: 00 Yes [id number] 240mg Take 1 capsule by mouth in the morning and 1 capsule in the evening. [facility] predniSONE 10 mg tablet 01-24 00:00: 00 Yes [id number] 10mg Take 1 tablet by mouth in the morning. [facility] sodium bicarbonate 650 mg tablet 01-24 00:00: 00 Yes [id number] 650mg Take 1 tablet by mouth in the morning and 1 tablet in the evening. [facility] mycophenola te sodium 360 mg EC tablet 01-24 00:00: 00 Yes [id number] Take 2 tablets by mouth every morning AND 1 tablet every evening. [facility] diltiazem XR 240 mg 24 hr capsule 01-24 00:00: 00 Yes [id number] 240mg Take 1 capsule by mouth in the morning and 1 capsule in the evening. [facility] predniSONE 10 mg tablet 01-24 00:00: 00 Yes [id number] 10mg Take 1 tablet by mouth in the morning. [facility] sodium bicarbonate 650 mg tablet 01-24 00:00: 00 Yes [id number] 650mg Take 1 tablet by mouth in the morning and 1 tablet in the evening. [facility] mycophenola te sodium 360 mg EC tablet 01-24 00:00: 00 Yes [id number] Take 2 tablets by mouth every morning AND 1 tablet every evening. [facility] diltiazem XR 240 mg 24 hr capsule 01-24 00:00: 00 Yes [id number] 240mg Take 1 capsule by mouth in the morning and 1 capsule in the evening. [facility] predniSONE 10 mg tablet 01-24 00:00: 00 Yes [id number] 10mg Take 1 tablet by mouth in the morning. [facility] sodium bicarbonate 650 mg tablet 01-24 00:00: 00 Yes [id number] 650mg Take 1 tablet by mouth in the morning and 1 tablet in the evening. [facility] mycophenola te sodium 360 mg EC tablet 01-24 00:00: 00 Yes [id number] Take 2 tablets by mouth every morning AND 1 tablet every evening. [facility] diltiazem XR 240 mg 24 hr capsule 01-24 00:00: 00 Yes [id number] 240mg Take 1 capsule by mouth in the morning and 1 capsule in the evening. [facility] predniSONE 10 mg tablet 01-24 00:00: 00 Yes [id number] 10mg Take 1 tablet by mouth in the morning. [facility] mycophenola te sodium 360 mg EC tablet 01-24 00:00: 00 Yes [id number] Take 2 tablets by mouth every morning AND 1 tablet every evening. [facility] diltiazem XR 240 mg 24 hr capsule 0 01-24 00:00: 00 Yes [id number] 240mg Take 1 capsule by mouth in the morning and 1 capsule in the evening. [facility] predniSONE 10 mg tablet 0 01-24 00:00: 00 Yes [id number] 10mg Take 1 tablet by mouth in the morning. [facility] mycophenola te sodium 360 mg EC tablet 0 01-24 00:00: 00 Yes [id number] Take 2 tablets by mouth every morning AND 1 tablet every evening. [facility] diltiazem XR 240 mg 24 hr capsule 01-24 00:00: 00 Yes [id number] 240mg Take 1 capsule by mouth in the morning and 1 capsule in the evening. [facility] predniSONE 10 mg tablet 0 01-24 00:00: 00 Yes [id number] 10mg Take 1 tablet by mouth in the morning. [facility] mycophenola te sodium 360 mg EC tablet 01-24 00:00: 00 Yes [id number] Take 2 tablets by mouth every morning AND 1 tablet every evening. [facility] diltiazem XR 240 mg 24 hr capsule 01-24 00:00: 00 Yes [id number] 240mg Take 1 capsule by mouth in the morning and 1 capsule in the evening. [facility] predniSONE 10 mg tablet 0 01-24 00:00: 00 Yes [id number] 10mg Take 1 tablet by mouth in the morning. [facility] mycophenola te sodium 360 mg EC tablet 01-24 00:00: 00 Yes [id number] Take 2 tablets by mouth every morning AND 1 tablet every evening. [facility] diltiazem XR 240 mg 24 hr capsule 0 01-24 00:00: 00 Yes [id number] 240mg Take 1 capsule by mouth in the morning and 1 capsule in the evening. [facility] predniSONE 10 mg tablet 2022-0 01-24 00:00: 00 Yes [id number] 10mg Take 1 tablet by mouth in the morning. [facility] mycophenola te sodium 360 mg EC tablet 0 01-24 00:00: 00 Yes [id number] Take 2 tablets by mouth every morning AND 1 tablet every evening. [facility] diltiazem XR 240 mg 24 hr capsule 0 01-24 00:00: 00 Yes [id number] 240mg Take 1 capsule by mouth in the morning and 1 capsule in the evening. [facility] predniSONE 10 mg tablet 0 01-24 00:00: 00 Yes [id number] 10mg Take 1 tablet by mouth in the morning. [facility] mycophenola te sodium 360 mg EC tablet 0 01-24 00:00: 00 Yes [id number] Take 2 tablets by mouth every morning AND 1 tablet every evening. [facility] diltiazem XR 240 mg 24 hr capsule 0 01-24 00:00: 00 Yes [id number] 240mg Take 1 capsule by mouth in the morning and 1 capsule in the evening. [facility] predniSONE 10 mg tablet 0 01-24 00:00: 00 Yes [id number] 10mg Take 1 tablet by mouth in the morning. [facility] mycophenola te sodium 360 mg EC tablet 01-24 00:00: 00 Yes [id number] Take 2 tablets by mouth every morning AND 1 tablet every evening. [facility] diltiazem XR 240 mg 24 hr capsule 0 01-24 00:00: 00 Yes [id number] 240mg Take 1 capsule by mouth in the morning and 1 capsule in the evening. [facility] predniSONE 10 mg tablet 0 01-24 00:00: 00 Yes [id number] 10mg Take 1 tablet by mouth in the morning. [facility] mycophenola te sodium 360 mg EC tablet 0 01-24 00:00: 00 Yes [id number] Take 2 tablets by mouth every morning AND 1 tablet every evening. [facility] diltiazem XR 240 mg 24 hr capsule 2022-0 01-24 00:00: 00 Yes [id number] 240mg Take 1 capsule by mouth in the morning and 1 capsule in the evening. [facility] predniSONE 10 mg tablet 0 01-24 00:00: 00 Yes [id number] 10mg Take 1 tablet by mouth in the morning. [facility] mycophenola te sodium 360 mg EC tablet 0 01-24 00:00: 00 Yes [id number] Take 2 tablets by mouth every morning AND 1 tablet every evening. [facility] diltiazem XR 240 mg 24 hr capsule 0 01-24 00:00: 00 Yes [id number] 240mg Take 1 capsule by mouth in the morning and 1 capsule in the evening. [facility] predniSONE 10 mg tablet 01-24 00:00: 00 Yes [id number] 10mg Take 1 tablet by mouth in the morning. [facility] mycophenola te sodium 360 mg EC tablet 01-24 00:00: 00 Yes [id number] Take 2 tablets by mouth every morning AND 1 tablet every evening. [facility] diltiazem XR 240 mg 24 hr capsule 01-24 00:00: 00 Yes [id number] 240mg Take 1 capsule by mouth in the morning and 1 capsule in the evening. [facility] predniSONE 10 mg tablet 01-24 00:00: 00 Yes [id number] 10mg Take 1 tablet by mouth in the morning. [facility] mycophenola te sodium 360 mg EC tablet 01-24 00:00: 00 Yes [id number] Take 2 tablets by mouth every morning AND 1 tablet every evening. [facility] diltiazem XR 240 mg 24 hr capsule 01-24 00:00: 00 Yes [id number] 240mg Take 1 capsule by mouth in the morning and 1 capsule in the evening. [facility] predniSONE 10 mg tablet 0 01-24 00:00: 00 Yes [id number] 10mg Take 1 tablet by mouth in the morning. [facility] mycophenola te sodium 360 mg EC tablet 0 01-24 00:00: 00 Yes [id number] Take 2 tablets by mouth every morning AND 1 tablet every evening. [facility] diltiazem XR 240 mg 24 hr capsule 0 01-24 00:00: 00 Yes [id number] 240mg Take 1 capsule by mouth in the morning and 1 capsule in the evening. [facility] predniSONE 10 mg tablet 01-24 00:00: 00 Yes [id number] 10mg Take 1 tablet by mouth in the morning. [facility] mycophenola te sodium 360 mg EC tablet 01-24 00:00: 00 Yes [id number] Take 2 tablets by mouth every morning AND 1 tablet every evening. [facility] diltiazem XR 240 mg 24 hr capsule 0 01-24 00:00: 00 Yes [id number] 240mg Take 1 capsule by mouth in the morning and 1 capsule in the evening. [facility] predniSONE 10 mg tablet 01-24 00:00: 00 Yes [id number] 10mg Take 1 tablet by mouth in the morning. [facility] mycophenola te sodium 360 mg EC tablet 01-24 00:00: 00 Yes [id number] Take 2 tablets by mouth every morning AND 1 tablet every evening. [facility] diltiazem XR 240 mg 24 hr capsule 01-24 00:00: 00 Yes [id number] 240mg Take 1 capsule by mouth in the morning and 1 capsule in the evening. [facility] predniSONE 10 mg tablet 01-24 00:00: 00 Yes [id number] 10mg Take 1 tablet by mouth in the morning. [facility] mycophenola te sodium 360 mg EC tablet 01-24 00:00: 00 Yes [id number] Take 2 tablets by mouth every morning AND 1 tablet every evening. [facility] diltiazem XR 240 mg 24 hr capsule 0 01-24 00:00: 00 Yes [id number] 240mg Take 1 capsule by mouth in the morning and 1 capsule in the evening. [facility] predniSONE 10 mg tablet 0 01-24 00:00: 00 Yes [id number] 10mg Take 1 tablet by mouth in the morning. [facility] mycophenola te sodium 360 mg EC tablet 01-24 00:00: 00 Yes [id number] Take 2 tablets by mouth every morning AND 1 tablet every evening. [facility] diltiazem XR 240 mg 24 hr capsule 01-24 00:00: 00 Yes [id number] 240mg Take 1 capsule by mouth in the morning and 1 capsule in the evening. [facility] predniSONE 10 mg tablet 01-24 00:00: 00 Yes [id number] 10mg Take 1 tablet by mouth in the morning. [facility] mycophenola te sodium 360 mg EC tablet 01-24 00:00: 00 Yes [id number] Take 2 tablets by mouth every morning AND 1 tablet every evening. [facility] diltiazem XR 240 mg 24 hr capsule 01-24 00:00: 00 Yes [id number] 240mg Take 1 capsule by mouth in the morning and 1 capsule in the evening. [facility] predniSONE 10 mg tablet 01-24 00:00: 00 Yes [id number] 10mg Take 1 tablet by mouth in the morning. [facility] mycophenola te sodium 360 mg EC tablet 01-24 00:00: 00 Yes [id number] Take 2 tablets by mouth every morning AND 1 tablet every evening. [facility] diltiazem XR 240 mg 24 hr capsule 01-24 00:00: 00 Yes [id number] 240mg Take 1 capsule by mouth in the morning and 1 capsule in the evening. [facility] predniSONE 10 mg tablet 0 01-24 00:00: 00 Yes [id number] 10mg Take 1 tablet by mouth in the morning. [facility] mycophenola te sodium 360 mg EC tablet 01-24 00:00: 00 Yes [id number] Take 2 tablets by mouth every morning AND 1 tablet every evening. [facility] diltiazem XR 240 mg 24 hr capsule 01-24 00:00: 00 Yes [id number] 240mg Take 1 capsule by mouth in the morning and 1 capsule in the evening. [facility] predniSONE 10 mg tablet 01-24 00:00: 00 Yes [id number] 10mg Take 1 tablet by mouth in the morning. [facility] mycophenola te sodium 360 mg EC tablet 01-24 00:00: 00 Yes [id number] Take 2 tablets by mouth every morning AND 1 tablet every evening. [facility] diltiazem XR 240 mg 24 hr capsule 0 01-24 00:00: 00 Yes [id number] 240mg Take 1 capsule by mouth in the morning and 1 capsule in the evening. [facility] predniSONE 10 mg tablet 01-24 00:00: 00 Yes [id number] 10mg Take 1 tablet by mouth in the morning. [facility] mycophenola te sodium 360 mg EC tablet 01-24 00:00: 00 Yes [id number] Take 2 tablets by mouth every morning AND 1 tablet every evening. [facility] diltiazem XR 240 mg 24 hr capsule 01-24 00:00: 00 Yes [id number] 240mg Take 1 capsule by mouth in the morning and 1 capsule in the evening. [facility] predniSONE 10 mg tablet 01-24 00:00: 00 Yes [id number] 10mg Take 1 tablet by mouth in the morning. [facility] mycophenola te sodium 360 mg EC tablet 01-24 00:00: 00 Yes [id number] Take 2 tablets by mouth every morning AND 1 tablet every evening. [facility] diltiazem XR 240 mg 24 hr capsule 01-24 00:00: 00 Yes [id number] 240mg Take 1 capsule by mouth in the morning and 1 capsule in the evening. [facility] predniSONE 10 mg tablet 0 01-24 00:00: 00 Yes [id number] 10mg Take 1 tablet by mouth in the morning. [facility] mycophenola te sodium 360 mg EC tablet 01-24 00:00: 00 Yes [id number] Take 2 tablets by mouth every morning AND 1 tablet every evening. [facility] diltiazem XR 240 mg 24 hr capsule 01-24 00:00: 00 Yes [id number] 240mg Take 1 capsule by mouth in the morning and 1 capsule in the evening. [facility] predniSONE 10 mg tablet 01-24 00:00: 00 Yes [id number] 10mg Take 1 tablet by mouth in the morning. [facility] mycophenola te sodium 360 mg EC tablet 01-24 00:00: 00 Yes [id number] Take 2 tablets by mouth every morning AND 1 tablet every evening. [facility] diltiazem XR 240 mg 24 hr capsule 01-24 00:00: 00 Yes [id number] 240mg Take 1 capsule by mouth in the morning and 1 capsule in the evening. [facility] predniSONE 10 mg tablet 01-24 00:00: 00 Yes [id number] 10mg Take 1 tablet by mouth in the morning. [facility] mycophenola te sodium 360 mg EC tablet 01-24 00:00: 00 Yes [id number] Take 2 tablets by mouth every morning AND 1 tablet every evening. [facility] diltiazem XR 240 mg 24 hr capsule 01-24 00:00: 00 Yes [id number] 240mg Take 1 capsule by mouth in the morning and 1 capsule in the evening. [facility] predniSONE 10 mg tablet 01-24 00:00: 00 Yes [id number] 10mg Take 1 tablet by mouth in the morning. [facility] mycophenola te sodium 360 mg EC tablet 01-24 00:00: 00 Yes [id number] Take 2 tablets by mouth every morning AND 1 tablet every evening. [facility] diltiazem XR 240 mg 24 hr capsule 01-24 00:00: 00 Yes [id number] 240mg Take 1 capsule by mouth in the morning and 1 capsule in the evening. [facility] predniSONE 10 mg tablet 01-24 00:00: 00 Yes [id number] 10mg Take 1 tablet by mouth in the morning. [facility] mycophenola te sodium 360 mg EC tablet 01-24 00:00: 00 Yes [id number] Take 2 tablets by mouth every morning AND 1 tablet every evening. [facility] diltiazem XR 240 mg 24 hr capsule 01-24 00:00: 00 Yes [id number] 240mg Take 1 capsule by mouth in the morning and 1 capsule in the evening. [facility] predniSONE 10 mg tablet 01-24 00:00: 00 Yes [id number] 10mg Take 1 tablet by mouth in the morning. [facility] mycophenola te sodium 360 mg EC tablet 01-24 00:00: 00 Yes [id number] Take 2 tablets by mouth every morning AND 1 tablet every evening. [facility] diltiazem XR 240 mg 24 hr capsule 01-24 00:00: 00 Yes [id number] 240mg Take 1 capsule by mouth in the morning and 1 capsule in the evening. [facility] predniSONE 10 mg tablet 01-24 00:00: 00 Yes [id number] 10mg Take 1 tablet by mouth in the morning. [facility] mycophenola te sodium 360 mg EC tablet 01-24 00:00: 00 Yes [id number] Take 2 tablets by mouth every morning AND 1 tablet every evening. [facility] diltiazem XR 240 mg 24 hr capsule 01-24 00:00: 00 Yes [id number] 240mg Take 1 capsule by mouth in the morning and 1 capsule in the evening. [facility] predniSONE 10 mg tablet 01-24 00:00: 00 Yes [id number] 10mg Take 1 tablet by mouth in the morning. [facility] sodium bicarbonate 650 mg tablet 01-24 00:00: 00 Yes [id number] 650mg Take 1 tablet by mouth in the morning and 1 tablet in the evening. [facility] guanFACINE ER 2 mg tablet 01-24 00:00: 00 Yes [id number] 2mg Take 1 tablet by mouth at bedtime. [facility] mycophenola te sodium 360 mg EC tablet 01-24 00:00: 00 Yes [id number] Take 2 tablets by mouth every morning AND 1 tablet every evening. [facility] diltiazem XR 240 mg 24 hr capsule 01-24 00:00: 00 Yes [id number] 240mg Take 1 capsule by mouth in the morning and 1 capsule in the evening. [facility] predniSONE 10 mg tablet 01-24 00:00: 00 Yes [id number] 10mg Take 1 tablet by mouth in the morning. [facility] sodium bicarbonate 650 mg tablet 01-24 00:00: 00 Yes [id number] 650mg Take 1 tablet by mouth in the morning and 1 tablet in the evening. [facility] guanFACINE ER 2 mg tablet 01-24 00:00: 00 Yes [id number] 2mg Take 1 tablet by mouth at bedtime. [facility] mycophenola te sodium 360 mg EC tablet 01-24 00:00: 00 Yes [id number] Take 2 tablets by mouth every morning AND 1 tablet every evening. [facility] diltiazem XR 240 mg 24 hr capsule 01-24 00:00: 00 Yes [id number] 240mg Take 1 capsule by mouth in the morning and 1 capsule in the evening. [facility] predniSONE 10 mg tablet 01-24 00:00: 00 Yes [id number] 10mg Take 1 tablet by mouth in the morning. [facility] sodium bicarbonate 650 mg tablet 01-24 00:00: 00 Yes [id number] 650mg Take 1 tablet by mouth in the morning and 1 tablet in the evening. [facility] guanFACINE ER 2 mg tablet 01-24 00:00: 00 Yes [id number] 2mg Take 1 tablet by mouth at bedtime. [facility] mycophenola te sodium 360 mg EC tablet 01-24 00:00: 00 Yes [id number] Take 2 tablets by mouth every morning AND 1 tablet every evening. [facility] diltiazem XR 240 mg 24 hr capsule 01-24 00:00: 00 Yes [id number] 240mg Take 1 capsule by mouth in the morning and 1 capsule in the evening. [facility] predniSONE 10 mg tablet 01-24 00:00: 00 Yes [id number] 10mg Take 1 tablet by mouth in the morning. [facility] sodium bicarbonate 650 mg tablet 01-24 00:00: 00 Yes [id number] 650mg Take 1 tablet by mouth in the morning and 1 tablet in the evening. [facility] guanFACINE ER 2 mg tablet 01-24 00:00: 00 Yes [id number] 2mg Take 1 tablet by mouth at bedtime. [facility] mycophenola te sodium 360 mg EC tablet 01-24 00:00: 00 Yes [id number] Take 2 tablets by mouth every morning AND 1 tablet every evening. [facility] diltiazem XR 240 mg 24 hr capsule 01-24 00:00: 00 Yes [id number] 240mg Take 1 capsule by mouth in the morning and 1 capsule in the evening. [facility] predniSONE 10 mg tablet 01-24 00:00: 00 Yes [id number] 10mg Take 1 tablet by mouth in the morning. [facility] sodium bicarbonate 650 mg tablet 01-24 00:00: 00 Yes [id number] 650mg Take 1 tablet by mouth in the morning and 1 tablet in the evening. [facility] guanFACINE ER 2 mg tablet 01-24 00:00: 00 Yes [id number] 2mg Take 1 tablet by mouth at bedtime. [facility] mycophenola te sodium 360 mg EC tablet 01-24 00:00: 00 Yes [id number] Take 2 tablets by mouth every morning AND 1 tablet every evening. [facility] diltiazem XR 240 mg 24 hr capsule 01-24 00:00: 00 Yes [id number] 240mg Take 1 capsule by mouth in the morning and 1 capsule in the evening. [facility] predniSONE 10 mg tablet 01-24 00:00: 00 Yes [id number] 10mg Take 1 tablet by mouth in the morning. [facility] sodium bicarbonate 650 mg tablet 01-24 00:00: 00 Yes [id number] 650mg Take 1 tablet by mouth in the morning and 1 tablet in the evening. [facility] guanFACINE ER 2 mg tablet 01-24 00:00: 00 Yes [id number] 2mg Take 1 tablet by mouth at bedtime. [facility] mycophenola te sodium 360 mg EC tablet 01-24 00:00: 00 Yes [id number] Take 2 tablets by mouth every morning AND 1 tablet every evening. [facility] diltiazem XR 240 mg 24 hr capsule 01-24 00:00: 00 Yes [id number] 240mg Take 1 capsule by mouth in the morning and 1 capsule in the evening. [facility] predniSONE 10 mg tablet 01-24 00:00: 00 Yes [id number] 10mg Take 1 tablet by mouth in the morning. [facility] sodium bicarbonate 650 mg tablet 01-24 00:00: 00 Yes [id number] 650mg Take 1 tablet by mouth in the morning and 1 tablet in the evening. [facility] guanFACINE ER 2 mg tablet 01-24 00:00: 00 Yes [id number] 2mg Take 1 tablet by mouth at bedtime. [facility] mycophenola te sodium 360 mg EC tablet 01-24 00:00: 00 Yes [id number] Take 2 tablets by mouth every morning AND 1 tablet every evening. [facility] diltiazem XR 240 mg 24 hr capsule 01-24 00:00: 00 Yes [id number] 240mg Take 1 capsule by mouth in the morning and 1 capsule in the evening. [facility] predniSONE 10 mg tablet 01-24 00:00: 00 Yes [id number] 10mg Take 1 tablet by mouth in the morning. [facility] sodium bicarbonate 650 mg tablet 01-24 00:00: 00 Yes [id number] 650mg Take 1 tablet by mouth in the morning and 1 tablet in the evening. [facility] guanFACINE ER 2 mg tablet 01-24 00:00: 00 Yes [id number] 2mg Take 1 tablet by mouth at bedtime. [facility] mycophenola te sodium 360 mg EC tablet 01-24 00:00: 00 Yes [id number] Take 2 tablets by mouth every morning AND 1 tablet every evening. [facility] diltiazem XR 240 mg 24 hr capsule 01-24 00:00: 00 Yes [id number] 240mg Take 1 capsule by mouth in the morning and 1 capsule in the evening. [facility] predniSONE 10 mg tablet 01-24 00:00: 00 Yes [id number] 10mg Take 1 tablet by mouth in the morning. [facility] sodium bicarbonate 650 mg tablet 01-24 00:00: 00 Yes [id number] 650mg Take 1 tablet by mouth in the morning and 1 tablet in the evening. [facility] sodium bicarbonate 650 mg tablet 01-24 00:00: 00 03-01 00:00 :00 No [id number] 650mg Take 1 tablet by mouth in the morning and 1 tablet in the evening. [facility] sodium bicarbonate 650 mg tablet 01-24 00:00: 00 03-01 00:00 :00 No [id number] 650mg Take 1 tablet by mouth in the morning and 1 tablet in the evening. [facility] guanFACINE ER 2 mg tablet 01-24 00:00: 00 02-19 00:00 :00 No [id number] 2mg Take 1 tablet by mouth at bedtime. [facility] guanFACINE ER 2 mg tablet 01-24 00:00: 00 02-19 00:00 :00 No [id number] 2mg Take 1 tablet by mouth at bedtime. [facility] mycophenola te sodium 360 mg EC tablet 01-24 00:00: 00 01-24 00:00 :00 No [id number] TAKE 1 TABLET BY MOUTH IN THE MORNING AT NOON AND IN THE EVENING [facility] mycophenola te sodium 360 mg EC tablet 01-24 00:00: 00 01-24 00:00 :00 No [id number] TAKE 1 TABLET BY MOUTH IN THE MORNING AT NOON AND IN THE EVENING [facility] mycophenola te sodium 360 mg EC tablet 01-24 00:00: 00 01-24 00:00 :00 No [id number] TAKE 1 TABLET BY MOUTH IN THE MORNING AT NOON AND IN THE EVENING [facility] guanFACINE ER 2 mg tablet 12-29 00:00: 00 Yes [id number] 2mg Take 1 tablet by mouth at bedtime. [facility] guanFACINE ER 2 mg tablet 12-29 00:00: 00 Yes [id number] 2mg Take 1 tablet by mouth at bedtime. [facility] guanFACINE ER 2 mg tablet 12-29 00:00: 00 01-24 00:00 :00 No [id number] 2mg Take 1 tablet by mouth at bedtime. [facility] guanFACINE ER 2 mg tablet 12-29 00:00: 00 01-24 00:00 :00 No [id number] 2mg Take 1 tablet by mouth at bedtime. [facility] guanFACINE ER 2 mg tablet 12-29 00:00: 00 01-24 00:00 :00 No [id number] 2mg Take 1 tablet by mouth at bedtime. [facility] darbepoetin michael in polysorbat (ARANESP, POLYSORBATE ,) 200 mcg/0.4 mL injection 12-04 00:00: 00 Yes [id number] 9101 200ug inject 0.4 mL under the skin every 2 (two) weeks. [facility] darbepoetin michael in polysorbat (ARANESP, POLYSORBATE ,) 200 mcg/0.4 mL injection 12-04 00:00: 00 Yes [id number] 200ug inject 0.4 mL under the skin every 2 (two) weeks. [facility] darbepoetin michael in polysorbat (ARANESP, POLYSORBATE ,) 200 mcg/0.4 mL injection 12-04 00:00: 00 Yes [id number] 9101 200ug inject 0.4 mL under the skin every 2 (two) weeks. [facility] darbepoetin michael in polysorbat (ARANESP, POLYSORBATE ,) 200 mcg/0.4 mL injection 8 00:00: 00 Yes [id number] 9101 200ug inject 0.4 mL under the skin every 2 (two) weeks. [facility] darbepoetin michael in polysorbat (ARANESP, POLYSORBATE ,) 200 mcg/0.4 mL injection 12-04 00:00: 00 Yes [id number] 9101 200ug inject 0.4 mL under the skin every 2 (two) weeks. [facility] darbepoetin michael in polysorbat (ARANESP, POLYSORBATE ,) 200 mcg/0.4 mL injection 12-04 00:00: 00 Yes [id number] 9101 200ug inject 0.4 mL under the skin every 2 (two) weeks. [facility] darbepoetin michael in polysorbat (ARANESP, POLYSORBATE ,) 200 mcg/0.4 mL injection 12-04 00:00: 00 Yes [id number] 9101 200ug inject 0.4 mL under the skin every 2 (two) weeks. [facility] darbepoetin michael in polysorbat (ARANESP, POLYSORBATE ,) 200 mcg/0.4 mL injection 12-04 00:00: 00 Yes [id number] 9101 200ug inject 0.4 mL under the skin every 2 (two) weeks. [facility] darbepoetin michael in polysorbat (ARANESP, POLYSORBATE ,) 200 mcg/0.4 mL injection 8 00:00: 00 Yes [id number] 9101 200ug inject 0.4 mL under the skin every 2 (two) weeks. [facility] darbepoetin michael in polysorbat (ARANESP, POLYSORBATE ,) 200 mcg/0.4 mL injection 8 00:00: 00 Yes [id number] 9101 200ug inject 0.4 mL under the skin every 2 (two) weeks. [facility] darbepoetin michael in polysorbat (ARANESP, POLYSORBATE ,) 200 mcg/0.4 mL injection 8 00:00: 00 Yes [id number] 9101 200ug inject 0.4 mL under the skin every 2 (two) weeks. [facility] darbepoetin michael in polysorbat (ARANESP, POLYSORBATE ,) 200 mcg/0.4 mL injection 8 00:00: 00 Yes [id number] 9101 200ug inject 0.4 mL under the skin every 2 (two) weeks. [facility] darbepoetin michael in polysorbat (ARANESP, POLYSORBATE ,) 200 mcg/0.4 mL injection 8 00:00: 00 Yes [id number] 9101 200ug inject 0.4 mL under the skin every 2 (two) weeks. [facility] darbepoetin michael in polysorbat (ARANESP, POLYSORBATE ,) 200 mcg/0.4 mL injection 8 00:00: 00 Yes [id number] 9101 200ug inject 0.4 mL under the skin every 2 (two) weeks. [facility] darbepoetin michael in polysorbat (ARANESP, POLYSORBATE ,) 200 mcg/0.4 mL injection 8 00:00: 00 Yes [id number] 9101 200ug inject 0.4 mL under the skin every 2 (two) weeks. [facility] darbepoetin michael in polysorbat (ARANESP, POLYSORBATE ,) 200 mcg/0.4 mL injection 8 00:00: 00 Yes [id number] 9101 200ug inject 0.4 mL under the skin every 2 (two) weeks. [facility] darbepoetin michael in polysorbat (ARANESP, POLYSORBATE ,) 200 mcg/0.4 mL injection 12-04 00:00: 00 Yes [id number] 9101 200ug inject 0.4 mL under the skin every 2 (two) weeks. [facility] darbepoetin michael in polysorbat (ARANESP, POLYSORBATE ,) 200 mcg/0.4 mL injection 12-04 00:00: 00 Yes [id number] 9101 200ug inject 0.4 mL under the skin every 2 (two) weeks. [facility] darbepoetin michael in polysorbat (ARANESP, POLYSORBATE ,) 200 mcg/0.4 mL injection 12-04 00:00: 00 Yes [id number] 9101 200ug inject 0.4 mL under the skin every 2 (two) weeks. [facility] darbepoetin michael in polysorbat (ARANESP, POLYSORBATE ,) 200 mcg/0.4 mL injection 12-04 00:00: 00 Yes [id number] 9101 200ug inject 0.4 mL under the skin every 2 (two) weeks. [facility] darbepoetin michael in polysorbat (ARANESP, POLYSORBATE ,) 200 mcg/0.4 mL injection 12-04 00:00: 00 Yes [id number] 9101 200ug inject 0.4 mL under the skin every 2 (two) weeks. [facility] darbepoetin michael in polysorbat (ARANESP, POLYSORBATE ,) 200 mcg/0.4 mL injection 12-04 00:00: 00 02-19 00:00 :00 No [id number] 9101 200ug inject 0.4 mL under the skin every 2 (two) weeks. [facility] darbepoetin michael in polysorbat (ARANESP, POLYSORBATE ,) 200 mcg/0.4 mL injection 12-04 00:00: 00 02-19 00:00 :00 No [id number] 9101 200ug inject 0.4 mL under the skin every 2 (two) weeks. [facility] diltiazem XR 240 mg 24 hr capsule 2023-0 7-18 00:00: 00 Yes [id number] 240mg Take 1 capsule by mouth in the morning and 1 capsule in the evening. [facility] 24 hr capsule 2023-0 7-18 00:00: 00 Yes [id number] 240mg Take 1 capsule by mouth in the morning and 1 capsule in the evening. [facility] diltiazem XR 240 mg 24 hr capsule 2023-0 7-18 00:00: 00 Yes [id number] 240mg Take 1 capsule by mouth in the morning and 1 capsule in the evening. [facility] 24 hr capsule 2023-0 7-18 00:00: 00 Yes [id number] 240mg Take 1 capsule by mouth in the morning and 1 capsule in the evening. [facility] diltiazem XR 240 mg 24 hr capsule 3-0 7-18 00:00: 00 Yes [id number] 240mg Take 1 capsule by mouth in the morning and 1 capsule in the evening. [facility] diltiazem XR 240 mg 24 hr capsule 2023-0 7-18 00:00: 00 Yes [id number] 240mg Take 1 capsule by mouth in the morning and 1 capsule in the evening. [facility] diltiazem XR 240 mg 24 hr capsule 3-0 7-18 00:00: 00 Yes [id number] 240mg Take 1 capsule by mouth in the morning and 1 capsule in the evening. [facility] diltiazem XR 240 mg 24 hr capsule 3-0 7-18 00:00: 00 Yes [id number] 240mg Take 1 capsule by mouth in the morning and 1 capsule in the evening. [facility] diltiazem XR 240 mg 24 hr capsule 2023-0 7-18 00:00: 00 Yes [id number] 240mg Take 1 capsule by mouth in the morning and 1 capsule in the evening. [facility] diltiazem XR 240 mg 24 hr capsule 2023-0 7-18 00:00: 00 Yes [id number] 240mg Take 1 capsule by mouth in the morning and 1 capsule in the evening. [facility] diltiazem XR 240 mg 24 hr capsule 2022-11-16 00:00: 00 01-24 00:00 :00 No [id number] 240mg Take 1 capsule by mouth in the morning and 1 capsule in the evening. [facility] diltiazem XR 240 mg 24 hr capsule 2022-11-16 00:00: 00 01-24 00:00 :00 No [id number] 240mg Take 1 capsule by mouth in the morning and 1 capsule in the evening. [facility] diltiazem XR 240 mg 24 hr capsule 11-16 00:00: 00 01-24 00:00 :00 No [id number] 240mg Take 1 capsule by mouth in the morning and 1 capsule in the evening. [facility] calcium carbonate 200 mg calcium (500 mg) chewable tablet 11-11 00:00: 00 Yes [id number] 1{tbl} Take 1 tablet by mouth in the morning and 1 tablet at noon and 1 tablet in the evening. Take before meals. [facility] calcium carbonate 200 mg calcium (500 mg) chewable tablet 11-11 00:00: 00 Yes [id number] 1{tbl} Take 1 tablet by mouth in the morning and 1 tablet at noon and 1 tablet in the evening. Take before meals. [facility] calcium carbonate 200 mg calcium (500 mg) chewable tablet 11-11 00:00: 00 Yes [id number] 1{tbl} Take 1 tablet by mouth in the morning and 1 tablet at noon and 1 tablet in the evening. Take before meals. [facility] calcium carbonate 200 mg calcium (500 mg) chewable tablet 11-11 00:00: 00 Yes [id number] 1{tbl} Take 1 tablet by mouth in the morning and 1 tablet at noon and 1 tablet in the evening. Take before meals. [facility] calcium carbonate 200 mg calcium (500 mg) chewable tablet 11-11 00:00: 00 Yes [id number] 1{tbl} Take 1 tablet by mouth in the morning and 1 tablet at noon and 1 tablet in the evening. Take before meals. [facility] calcium carbonate 200 mg calcium (500 mg) chewable tablet 11-11 00:00: 00 Yes [id number] 1{tbl} Take 1 tablet by mouth in the morning and 1 tablet at noon and 1 tablet in the evening. Take before meals. [facility] calcium carbonate 200 mg calcium (500 mg) chewable tablet 11-11 00:00: 00 Yes [id number] 1{tbl} Take 1 tablet by mouth in the morning and 1 tablet at noon and 1 tablet in the evening. Take before meals. [facility] calcium carbonate 200 mg calcium (500 mg) chewable tablet 11-11 00:00: 00 Yes [id number] 1{tbl} Take 1 tablet by mouth in the morning and 1 tablet at noon and 1 tablet in the evening. Take before meals. [facility] calcium carbonate 200 mg calcium (500 mg) chewable tablet 11-11 00:00: 00 Yes [id number] 1{tbl} Take 1 tablet by mouth in the morning and 1 tablet at noon and 1 tablet in the evening. Take before meals. [facility] calcium carbonate 200 mg calcium (500 mg) chewable tablet 11-11 00:00: 00 Yes [id number] 1{tbl} Take 1 tablet by mouth in the morning and 1 tablet at noon and 1 tablet in the evening. Take before meals. [facility] calcium carbonate 200 mg calcium (500 mg) chewable tablet 11-11 00:00: 00 Yes [id number] 1{tbl} Take 1 tablet by mouth in the morning and 1 tablet at noon and 1 tablet in the evening. Take before meals. [facility] calcium carbonate 200 mg calcium (500 mg) chewable tablet 11-11 00:00: 00 Yes [id number] 1{tbl} Take 1 tablet by mouth in the morning and 1 tablet at noon and 1 tablet in the evening. Take before meals. [facility] calcium carbonate 200 mg calcium (500 mg) chewable tablet 11-11 00:00: 00 Yes [id number] 1{tbl} Take 1 tablet by mouth in the morning and 1 tablet at noon and 1 tablet in the evening. Take before meals. [facility] calcium carbonate 200 mg calcium (500 mg) chewable tablet 11-11 00:00: 00 Yes [id number] 1{tbl} Take 1 tablet by mouth in the morning and 1 tablet at noon and 1 tablet in the evening. Take before meals. [facility] calcium carbonate 200 mg calcium (500 mg) chewable tablet 11-11 00:00: 00 Yes [id number] 1{tbl} Take 1 tablet by mouth in the morning and 1 tablet at noon and 1 tablet in the evening. Take before meals. [facility] calcium carbonate 200 mg calcium (500 mg) chewable tablet 11-11 00:00: 00 Yes [id number] 1{tbl} Take 1 tablet by mouth in the morning and 1 tablet at noon and 1 tablet in the evening. Take before meals. [facility] calcium carbonate 200 mg calcium (500 mg) chewable tablet 11-11 00:00: 00 Yes [id number] 1{tbl} Take 1 tablet by mouth in the morning and 1 tablet at noon and 1 tablet in the evening. Take before meals. [facility] calcium carbonate 200 mg calcium (500 mg) chewable tablet 11-11 00:00: 00 Yes [id number] 1{tbl} Take 1 tablet by mouth in the morning and 1 tablet at noon and 1 tablet in the evening. Take before meals. [facility] calcium carbonate 200 mg calcium (500 mg) chewable tablet 11-11 00:00: 00 Yes [id number] 1{tbl} Take 1 tablet by mouth in the morning and 1 tablet at noon and 1 tablet in the evening. Take before meals. [facility] calcium carbonate 200 mg calcium (500 mg) chewable tablet 11-11 00:00: 00 Yes [id number] 1{tbl} Take 1 tablet by mouth in the morning and 1 tablet at noon and 1 tablet in the evening. Take before meals. [facility] calcium carbonate 200 mg calcium (500 mg) chewable tablet 0 13 00:00: 00 Yes [id number] 1{tbl} Take 1 tablet by mouth in the morning and 1 tablet at noon and 1 tablet in the evening. Take before meals. [facility] calcium carbonate 200 mg calcium (500 mg) chewable tablet 0 11-11 00:00: 00 Yes [id number] 1{tbl} Take 1 tablet by mouth in the morning and 1 tablet at noon and 1 tablet in the evening. Take before meals. [facility] calcium carbonate 200 mg calcium (500 mg) chewable tablet 0 11-11 00:00: 00 Yes [id number] 1{tbl} Take 1 tablet by mouth in the morning and 1 tablet at noon and 1 tablet in the evening. Take before meals. [facility] calcium carbonate 200 mg calcium (500 mg) chewable tablet 0 11-11 00:00: 00 Yes [id number] 1{tbl} Take 1 tablet by mouth in the morning and 1 tablet at noon and 1 tablet in the evening. Take before meals. [facility] calcium carbonate 200 mg calcium (500 mg) chewable tablet 0 11-11 00:00: 00 Yes [id number] 1{tbl} Take 1 tablet by mouth in the morning and 1 tablet at noon and 1 tablet in the evening. Take before meals. [facility] calcium carbonate 200 mg calcium (500 mg) chewable tablet 0 11-11 00:00: 00 Yes [id number] 1{tbl} Take 1 tablet by mouth in the morning and 1 tablet at noon and 1 tablet in the evening. Take before meals. [facility] calcium carbonate 200 mg calcium (500 mg) chewable tablet 0 11-11 00:00: 00 Yes [id number] 1{tbl} Take 1 tablet by mouth in the morning and 1 tablet at noon and 1 tablet in the evening. Take before meals. [facility] calcium carbonate 200 mg calcium (500 mg) chewable tablet 0 13 00:00: 00 Yes [id number] 1{tbl} Take 1 tablet by mouth in the morning and 1 tablet at noon and 1 tablet in the evening. Take before meals. [facility] calcium carbonate 200 mg calcium (500 mg) chewable tablet 11-11 00:00: 00 Yes [id number] 1{tbl} Take 1 tablet by mouth in the morning and 1 tablet at noon and 1 tablet in the evening. Take before meals. [facility] calcium carbonate 200 mg calcium (500 mg) chewable tablet 11-11 00:00: 00 Yes [id number] 1{tbl} Take 1 tablet by mouth in the morning and 1 tablet at noon and 1 tablet in the evening. Take before meals. [facility] calcium carbonate 200 mg calcium (500 mg) chewable tablet 11-11 00:00: 00 Yes [id number] 1{tbl} Take 1 tablet by mouth in the morning and 1 tablet at noon and 1 tablet in the evening. Take before meals. [facility] calcium carbonate 200 mg calcium (500 mg) chewable tablet 11-11 00:00: 00 Yes [id number] 1{tbl} Take 1 tablet by mouth in the morning and 1 tablet at noon and 1 tablet in the evening. Take before meals. [facility] calcium carbonate 200 mg calcium (500 mg) chewable tablet 11-11 00:00: 00 Yes [id number] 1{tbl} Take 1 tablet by mouth in the morning and 1 tablet at noon and 1 tablet in the evening. Take before meals. [facility] calcium carbonate 200 mg calcium (500 mg) chewable tablet 11-11 00:00: 00 Yes [id number] 1{tbl} Take 1 tablet by mouth in the morning and 1 tablet at noon and 1 tablet in the evening. Take before meals. [facility] calcium carbonate 200 mg calcium (500 mg) chewable tablet 11-11 00:00: 00 Yes [id number] 1{tbl} Take 1 tablet by mouth in the morning and 1 tablet at noon and 1 tablet in the evening. Take before meals. [facility] calcium carbonate 200 mg calcium (500 mg) chewable tablet 11-11 00:00: 00 Yes [id number] 1{tbl} Take 1 tablet by mouth in the morning and 1 tablet at noon and 1 tablet in the evening. Take before meals. [facility] calcium carbonate 200 mg calcium (500 mg) chewable tablet 11-11 00:00: 00 Yes [id number] 1{tbl} Take 1 tablet by mouth in the morning and 1 tablet at noon and 1 tablet in the evening. Take before meals. [facility] calcium carbonate 200 mg calcium (500 mg) chewable tablet 11-11 00:00: 00 Yes [id number] 1{tbl} Take 1 tablet by mouth in the morning and 1 tablet at noon and 1 tablet in the evening. Take before meals. [facility] calcium carbonate 200 mg calcium (500 mg) chewable tablet 11-11 00:00: 00 Yes [id number] 1{tbl} Take 1 tablet by mouth in the morning and 1 tablet at noon and 1 tablet in the evening. Take before meals. [facility] calcium carbonate 200 mg calcium (500 mg) chewable tablet 11-11 00:00: 00 Yes [id number] 1{tbl} Take 1 tablet by mouth in the morning and 1 tablet at noon and 1 tablet in the evening. Take before meals. [facility] calcium carbonate 200 mg calcium (500 mg) chewable tablet 11-11 00:00: 00 Yes [id number] 1{tbl} Take 1 tablet by mouth in the morning and 1 tablet at noon and 1 tablet in the evening. Take before meals. [facility] darbepoetin michael in polysorbat (ARANESP, POLYSORBATE ,) 200 mcg/0.4 mL injection 11-11 00:00: 00 Yes [id number] 200ug inject 0.4 mL under the skin weekly. [facility] calcium carbonate 200 mg calcium (500 mg) chewable tablet 11-11 00:00: 00 Yes [id number] 1{tbl} Take 1 tablet by mouth in the morning and 1 tablet at noon and 1 tablet in the evening. Take before meals. [facility] calcium carbonate 200 mg calcium (500 mg) chewable tablet 0 11-11 00:00: 00 Yes [id number] 1{tbl} Take 1 tablet by mouth in the morning and 1 tablet at noon and 1 tablet in the evening. Take before meals. [facility] calcium carbonate 200 mg calcium (500 mg) chewable tablet 11-11 00:00: 00 Yes [id number] 1{tbl} Take 1 tablet by mouth in the morning and 1 tablet at noon and 1 tablet in the evening. Take before meals. [facility] calcium carbonate 200 mg calcium (500 mg) chewable tablet 11-11 00:00: 00 Yes [id number] 1{tbl} Take 1 tablet by mouth in the morning and 1 tablet at noon and 1 tablet in the evening. Take before meals. [facility] calcium carbonate 200 mg calcium (500 mg) chewable tablet 11-11 00:00: 00 Yes [id number] 1{tbl} Take 1 tablet by mouth in the morning and 1 tablet at noon and 1 tablet in the evening. Take before meals. [facility] calcium carbonate 200 mg calcium (500 mg) chewable tablet 11-11 00:00: 00 Yes [id number] 1{tbl} Take 1 tablet by mouth in the morning and 1 tablet at noon and 1 tablet in the evening. Take before meals. [facility] calcium carbonate 200 mg calcium (500 mg) chewable tablet 11-11 00:00: 00 Yes [id number] 1{tbl} Take 1 tablet by mouth in the morning and 1 tablet at noon and 1 tablet in the evening. Take before meals. [facility] calcium carbonate 200 mg calcium (500 mg) chewable tablet 0 11-11 00:00: 00 Yes [id number] 1{tbl} Take 1 tablet by mouth in the morning and 1 tablet at noon and 1 tablet in the evening. Take before meals. [facility] calcium carbonate 200 mg calcium (500 mg) chewable tablet 0 11-11 00:00: 00 Yes [id number] 1{tbl} Take 1 tablet by mouth in the morning and 1 tablet at noon and 1 tablet in the evening. Take before meals. [facility] calcium carbonate 200 mg calcium (500 mg) chewable tablet 0 11-11 00:00: 00 Yes [id number] 1{tbl} Take 1 tablet by mouth in the morning and 1 tablet at noon and 1 tablet in the evening. Take before meals. [facility] calcium carbonate 200 mg calcium (500 mg) chewable tablet 0 11-11 00:00: 00 Yes [id number] 1{tbl} Take 1 tablet by mouth in the morning and 1 tablet at noon and 1 tablet in the evening. Take before meals. [facility] calcium carbonate 200 mg calcium (500 mg) chewable tablet 0 11-11 00:00: 00 Yes [id number] 1{tbl} Take 1 tablet by mouth in the morning and 1 tablet at noon and 1 tablet in the evening. Take before meals. [facility] calcium carbonate 200 mg calcium (500 mg) chewable tablet 11-11 00:00: 00 Yes [id number] 1{tbl} Take 1 tablet by mouth in the morning and 1 tablet at noon and 1 tablet in the evening. Take before meals. [facility] calcium carbonate 200 mg calcium (500 mg) chewable tablet 11-11 00:00: 00 Yes [id number] 1{tbl} Take 1 tablet by mouth in the morning and 1 tablet at noon and 1 tablet in the evening. Take before meals. [facility] calcium carbonate 200 mg calcium (500 mg) chewable tablet 11-11 00:00: 00 Yes [id number] 1{tbl} Take 1 tablet by mouth in the morning and 1 tablet at noon and 1 tablet in the evening. Take before meals. [facility] calcium carbonate 200 mg calcium (500 mg) chewable tablet 0 11-11 00:00: 00 Yes [id number] 1{tbl} Take 1 tablet by mouth in the morning and 1 tablet at noon and 1 tablet in the evening. Take before meals. [facility] calcium carbonate 200 mg calcium (500 mg) chewable tablet 11-11 00:00: 00 Yes [id number] 1{tbl} Take 1 tablet by mouth in the morning and 1 tablet at noon and 1 tablet in the evening. Take before meals. [facility] calcium carbonate 200 mg calcium (500 mg) chewable tablet 11-11 00:00: 00 Yes [id number] 1{tbl} Take 1 tablet by mouth in the morning and 1 tablet at noon and 1 tablet in the evening. Take before meals. [facility] calcium carbonate 200 mg calcium (500 mg) chewable tablet 11-11 00:00: 00 Yes [id number] 1{tbl} Take 1 tablet by mouth in the morning and 1 tablet at noon and 1 tablet in the evening. Take before meals. [facility] darbepoetin michael in polysorbat (ARANESP, POLYSORBATE ,) 200 mcg/0.4 mL injection 11-11 00:00: 00 12-04 00:00 :00 No [id number] 200ug inject 0.4 mL under the skin weekly. [facility] pravastatin 20 mg tablet 11-04 00:00: 00 Yes [id number] 20mg Take 1 tablet by mouth at bedtime. [facility] pravastatin 20 mg tablet 11-04 00:00: 00 Yes [id number] 20mg Take 1 tablet by mouth at bedtime. [facility] pravastatin 20 mg tablet 11-04 00:00: 00 Yes [id number] 20mg Take 1 tablet by mouth at bedtime. [facility] pravastatin 20 mg tablet 11-04 00:00: 00 Yes [id number] 20mg Take 1 tablet by mouth at bedtime. [facility] pravastatin 20 mg tablet 11-04 00:00: 00 Yes [id number] 20mg Take 1 tablet by mouth at bedtime. [facility] pravastatin 20 mg tablet 11-04 00:00: 00 Yes [id number] 20mg Take 1 tablet by mouth at bedtime. [facility] pravastatin 20 mg tablet 2022-0 11-04 00:00: 00 Yes [id number] 20mg Take 1 tablet by mouth at bedtime. [facility] pravastatin 20 mg tablet 0 11-04 00:00: 00 Yes [id number] 20mg Take 1 tablet by mouth at bedtime. [facility] pravastatin 20 mg tablet 0 11-04 00:00: 00 Yes [id number] 20mg Take 1 tablet by mouth at bedtime. [facility] pravastatin 20 mg tablet 0 11-04 00:00: 00 Yes [id number] 20mg Take 1 tablet by mouth at bedtime. [facility] pravastatin 20 mg tablet 0 11-04 00:00: 00 Yes [id number] 20mg Take 1 tablet by mouth at bedtime. [facility] pravastatin 20 mg tablet 0 11-04 00:00: 00 Yes [id number] 20mg Take 1 tablet by mouth at bedtime. [facility] pravastatin 20 mg tablet 0 11-04 00:00: 00 Yes [id number] 20mg Take 1 tablet by mouth at bedtime. [facility] pravastatin 20 mg tablet 0 11-04 00:00: 00 Yes [id number] 20mg Take 1 tablet by mouth at bedtime. [facility] pravastatin 20 mg tablet 0 11-04 00:00: 00 Yes [id number] 20mg Take 1 tablet by mouth at bedtime. [facility] pravastatin 20 mg tablet 0 11-04 00:00: 00 Yes [id number] 20mg Take 1 tablet by mouth at bedtime. [facility] pravastatin 20 mg tablet 0 11-04 00:00: 00 Yes [id number] 20mg Take 1 tablet by mouth at bedtime. [facility] pravastatin 20 mg tablet 2022-0 11-04 00:00: 00 Yes [id number] 20mg Take 1 tablet by mouth at bedtime. [facility] pravastatin 20 mg tablet 0 11-04 00:00: 00 Yes [id number] 20mg Take 1 tablet by mouth at bedtime. [facility] pravastatin 20 mg tablet 0 11-04 00:00: 00 Yes [id number] 20mg Take 1 tablet by mouth at bedtime. [facility] pravastatin 20 mg tablet 0 11-04 00:00: 00 Yes [id number] 20mg Take 1 tablet by mouth at bedtime. [facility] pravastatin 20 mg tablet 0 11-04 00:00: 00 Yes [id number] 20mg Take 1 tablet by mouth at bedtime. [facility] pravastatin 20 mg tablet 0 11-04 00:00: 00 Yes [id number] 20mg Take 1 tablet by mouth at bedtime. [facility] pravastatin 20 mg tablet 0 11-04 00:00: 00 Yes [id number] 20mg Take 1 tablet by mouth at bedtime. [facility] pravastatin 20 mg tablet 0 11-04 00:00: 00 Yes [id number] 20mg Take 1 tablet by mouth at bedtime. [facility] pravastatin 20 mg tablet 0 11-04 00:00: 00 Yes [id number] 20mg Take 1 tablet by mouth at bedtime. [facility] pravastatin 20 mg tablet 0 11-04 00:00: 00 Yes [id number] 20mg Take 1 tablet by mouth at bedtime. [facility] pravastatin 20 mg tablet 0 11-04 00:00: 00 Yes [id number] 20mg Take 1 tablet by mouth at bedtime. [facility] pravastatin 20 mg tablet 2022-0 11-04 00:00: 00 Yes [id number] 20mg Take 1 tablet by mouth at bedtime. [facility] pravastatin 20 mg tablet 0 11-04 00:00: 00 Yes [id number] 20mg Take 1 tablet by mouth at bedtime. [facility] pravastatin 20 mg tablet 0 11-04 00:00: 00 Yes [id number] 20mg Take 1 tablet by mouth at bedtime. [facility] pravastatin 20 mg tablet 2022-0 11-04 00:00: 00 Yes [id number] 20mg Take 1 tablet by mouth at bedtime. [facility] pravastatin 20 mg tablet 0 11-04 00:00: 00 Yes [id number] 20mg Take 1 tablet by mouth at bedtime. [facility] pravastatin 20 mg tablet 0 11-04 00:00: 00 Yes [id number] 20mg Take 1 tablet by mouth at bedtime. [facility] pravastatin 20 mg tablet 0 11-04 00:00: 00 Yes [id number] 20mg Take 1 tablet by mouth at bedtime. [facility] pravastatin 20 mg tablet 0 11-04 00:00: 00 Yes [id number] 20mg Take 1 tablet by mouth at bedtime. [facility] pravastatin 20 mg tablet 0 11-04 00:00: 00 Yes [id number] 20mg Take 1 tablet by mouth at bedtime. [facility] pravastatin 20 mg tablet 0 11-04 00:00: 00 Yes [id number] 20mg Take 1 tablet by mouth at bedtime. [facility] pravastatin 20 mg tablet 0 11-04 00:00: 00 Yes [id number] 20mg Take 1 tablet by mouth at bedtime. [facility] pravastatin 20 mg tablet 0 11-04 00:00: 00 Yes [id number] 20mg Take 1 tablet by mouth at bedtime. [facility] pravastatin 20 mg tablet 0 11-04 00:00: 00 Yes [id number] 20mg Take 1 tablet by mouth at bedtime. [facility] pravastatin 20 mg tablet 0 11-04 00:00: 00 Yes [id number] 20mg Take 1 tablet by mouth at bedtime. [facility] pravastatin 20 mg tablet 2022-0 11-04 00:00: 00 Yes [id number] 20mg Take 1 tablet by mouth at bedtime. [facility] pravastatin 20 mg tablet 0 11-04 00:00: 00 Yes [id number] 20mg Take 1 tablet by mouth at bedtime. [facility] pravastatin 20 mg tablet 0 11-04 00:00: 00 Yes [id number] 20mg Take 1 tablet by mouth at bedtime. [facility] pravastatin 20 mg tablet 0 11-04 00:00: 00 Yes [id number] 20mg Take 1 tablet by mouth at bedtime. [facility] pravastatin 20 mg tablet 0 11-04 00:00: 00 Yes [id number] 20mg Take 1 tablet by mouth at bedtime. [facility] pravastatin 20 mg tablet 0 11-04 00:00: 00 Yes [id number] 20mg Take 1 tablet by mouth at bedtime. [facility] pravastatin 20 mg tablet 0 11-04 00:00: 00 Yes [id number] 20mg Take 1 tablet by mouth at bedtime. [facility] pravastatin 20 mg tablet 0 11-04 00:00: 00 Yes [id number] 20mg Take 1 tablet by mouth at bedtime. [facility] pravastatin 20 mg tablet 0 11-04 00:00: 00 Yes [id number] 20mg Take 1 tablet by mouth at bedtime. [facility] pravastatin 20 mg tablet 0 11-04 00:00: 00 Yes [id number] 20mg Take 1 tablet by mouth at bedtime. [facility] pravastatin 20 mg tablet 0 11-04 00:00: 00 Yes [id number] 20mg Take 1 tablet by mouth at bedtime. [facility] pravastatin 20 mg tablet 2022-0 11-04 00:00: 00 Yes [id number] 20mg Take 1 tablet by mouth at bedtime. [facility] pravastatin 20 mg tablet 0 11-04 00:00: 00 Yes [id number] 20mg Take 1 tablet by mouth at bedtime. [facility] pravastatin 20 mg tablet 0 11-04 00:00: 00 Yes [id number] 20mg Take 1 tablet by mouth at bedtime. [facility] pravastatin 20 mg tablet 2022-0 11-04 00:00: 00 Yes [id number] 20mg Take 1 tablet by mouth at bedtime. [facility] pravastatin 20 mg tablet 2022-0 11-04 00:00: 00 Yes [id number] 20mg Take 1 tablet by mouth at bedtime. [facility] pravastatin 20 mg tablet 2022-0 11-04 00:00: 00 Yes [id number] 20mg Take 1 tablet by mouth at bedtime. [facility] pravastatin 20 mg tablet 2022-0 11-04 00:00: 00 Yes [id number] 20mg Take 1 tablet by mouth at bedtime. [facility] pravastatin 20 mg tablet 2022-0 11-04 00:00: 00 Yes [id number] 20mg Take 1 tablet by mouth at bedtime. [facility] pravastatin 20 mg tablet 2022-0 11-04 00:00: 00 Yes [id number] 20mg Take 1 tablet by mouth at bedtime. [facility] pravastatin 20 mg tablet 2022-0 11-04 00:00: 00 Yes [id number] 20mg Take 1 tablet by mouth at bedtime. [facility] pravastatin 20 mg tablet 2022-0 11-04 00:00: 00 Yes [id number] 20mg Take 1 tablet by mouth at bedtime. [facility] pravastatin 20 mg tablet 2022-0 11-04 00:00: 00 Yes [id number] 20mg Take 1 tablet by mouth at bedtime. [facility] fluconazole 100 mg tablet 2022-0 10-09 00:00: 00 Yes [id number] 100mg Take 1 tablet by mouth in the morning. [facility] fluconazole 100 mg tablet 3-0 6-10 00:00: 00 Yes [id number] 100mg Take 1 tablet by mouth in the morning. [facility] fluconazole 100 mg tablet 3-0 6-10 00:00: 00 Yes [id number] 100mg Take 1 tablet by mouth in the morning. [facility] fluconazole 100 mg tablet 3-0 6-10 00:00: 00 Yes [id number] 100mg Take 1 tablet by mouth in the morning. [facility] fluconazole 100 mg tablet 3-0 6-10 00:00: 00 Yes [id number] 100mg Take 1 tablet by mouth in the morning. [facility] fluconazole 100 mg tablet 3-0 6-10 00:00: 00 Yes [id number] 100mg Take 1 tablet by mouth in the morning. [facility] fluconazole 100 mg tablet 3-0 6-10 00:00: 00 Yes [id number] 100mg Take 1 tablet by mouth in the morning. [facility] fluconazole 100 mg tablet 3-0 6-10 00:00: 00 Yes [id number] 100mg Take 1 tablet by mouth in the morning. [facility] fluconazole 100 mg tablet 3-0 610 00:00: 00 Yes [id number] 100mg Take 1 tablet by mouth in the morning. [facility] fluconazole 100 mg tablet 3-0 -10 00:00: 00 Yes [id number] 100mg Take 1 tablet by mouth in the morning. [facility] fluconazole 100 mg tablet 3-0 6-10 00:00: 00 Yes [id number] 100mg Take 1 tablet by mouth in the morning. [facility] fluconazole 100 mg tablet 3-0 10 00:00: 00 10-08 00:00 :00 No [id number] 100mg Take 1 tablet by mouth in the morning for 4 days. [facility] aspirin 81 mg Cap 3-0 10-08 14:39: 18 Yes Take by mouth. [facility] aspirin 81 mg Cap 2023-0 10-08 14:39: 18 Yes Take by mouth. [facility] aspirin 81 mg Cap 3-0 10-08 14:39: 18 Yes Take by mouth. [facility] aspirin 81 mg Cap 3-0 10-08 14:39: 18 Yes Take by mouth. [facility] aspirin 81 mg Cap 2023-0 10-08 14:39: 18 Yes Take by mouth. [facility] aspirin 81 mg Cap 2023-0 10-08 14:39: 18 Yes Take by mouth. [facility] aspirin 81 mg Cap 3-0 10-08 14:39: 18 Yes Take by mouth. [facility] aspirin 81 mg Cap 3-0 10-08 14:39: 18 Yes Take by mouth. [facility] aspirin 81 mg Cap 3-0 10-08 14:39: 18 Yes Take by mouth. [facility] aspirin 81 mg Cap 3-0 10-08 14:39: 18 Yes Take by mouth. [facility] aspirin 81 mg Cap 3-0 10-08 14:39: 18 Yes Take by mouth. [facility] aspirin 81 mg Cap 2022-0 10-08 14:39: 18 Yes Take by mouth. [facility] aspirin 81 mg Cap 3-0 10-08 14:39: 18 Yes Take by mouth. [facility] aspirin 81 mg Cap 2022-0 10-08 14:39: 18 Yes Take by mouth. [facility] aspirin 81 mg Cap 3-0 10-08 14:39: 18 Yes Take by mouth. [facility] aspirin 81 mg Cap 2022-0 10-08 14:39: 18 Yes Take by mouth. [facility] aspirin 81 mg Cap 2022-0 10-08 14:39: 18 Yes Take by mouth. [facility] aspirin 81 mg Cap 2022-0 10-08 14:39: 18 Yes Take by mouth. [facility] aspirin 81 mg Cap 2022-0 10-08 14:39: 18 Yes Take by mouth. [facility] aspirin 81 mg Cap 3-0 10-08 14:39: 18 Yes Take by mouth. [facility] predniSONE (DELTASONE) tablet 10 mg 2022-10-08 14:00: 00 Yes 10mg 10 mg, Oral, DAILY, First dose on Tue10/08/22 at 0900, Until Discontinu ed, Routine [facility] norgestimat e-ethinyl estradioL (VYLIBRA) 0.25-35 mg-mcg per tablet 1 tablet 2022-10-08 14:00: 00 Yes 1{tbl} 1 tablet, Oral, DAILY, First dose on Tue10/08/22 at 0900, Until Discontinu ed, Routine
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 : REYMUNDO NOWAK [facility] aspirin chewable tablet 81 mg 10-08 14:00: 00 Yes 81mg 81 mg, Oral, DAILY, First dose on Tue10/08/22 at 0900, Until Discontinu ed [facility] sodium bicarbonate (ANTACID (SODIUM BICARBONATE )) tablet 1,300 mg 10-08 13:00: 00 Yes 1300mg 1,300 mg, Oral, BID, First dose (after last modificati on) on Tue10/08/22 at 0800, Until Discontinu ed, Routine [facility] acyclovir (ZOVIRAX) tablet 400 mg 10-08 12:15: 00 Yes 400mg 400 mg, Oral, Q8H, First dose on Tue10/08/22 at 0715, Until Discontinu ed, [facility] diphenhydrA MINE (BENADRYL) injection 25 mg 10-08 11:14: 00 10-08 11:24 :00 No 25mg 25 mg, Intravenou s, ONCE, 1 dose, On Tue10/08/22 at 0615, Routine [facility] pravastatin (PRAVACHOL) tablet 20 mg 10-08 02:00: 00 Yes 20mg 20 mg, Oral, QHS, First dose on Tue10/07/22 at 2100, Until Discontinu ed, Routine [facility] guanFACINE (TENEX) tablet 1 mg 10-08 02:00: 00 Yes 1mg 1 mg, Oral, QHS, First dose on Tue10/07/22 at 2100, Until Discontinu ed [facility] heparin (porcine) injection 5,000 Units 10-08 01:00: 00 Yes 5000U 5,000 Units, Subcutaneo us, Q12H, First dose on Tue10/07/22 at 2000, Until Discontinu ed, Routine [facility] famotidine (PEPCID AC) tablet 20 mg 10-08 01:00: 00 Yes 20mg 20 mg, Oral, BID, First dose on [place] 10/07/22 at 1999, Until Discontinu ed [facility] mycophenola te sodium (MYFORTIC) EC tablet 360 mg 10-08 01:00: 00 Yes 360mg 360 mg, Oral, Q12H, First dose on [facility] 10/07/22 at 1999, Until Discontinu ed, Routine
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 [facility] sodium bicarbonate 650 mg tablet 10-08 00:00: 00 Yes [id number] 1300mg Take 2 tablets by mouth in the morning and 2 tablets in the evening. [facility] acyclovir 400 mg tablet 10-08 00:00: 00 Yes [id number] 400mg Take 1 tablet by mouth every 8 (eight) hours. [facility] sodium bicarbonate 650 mg tablet 10-08 00:00: 00 Yes [id number] 1300mg Take 2 tablets by mouth in the morning and 2 tablets in the evening. [facility] acyclovir 400 mg tablet 10-08 00:00: 00 Yes [id number] 400mg Take 1 tablet by mouth every 8 (eight) hours. [facility] sodium bicarbonate 650 mg tablet 10-08 00:00: 00 Yes [id number] 1300mg Take 2 tablets by mouth in the morning and 2 tablets in the evening. [facility] acyclovir 400 mg tablet 2022-0 10-08 00:00: 00 Yes [id number] 400mg Take 1 tablet by mouth every 8 (eight) hours. [facility] sodium bicarbonate 650 mg tablet 2022-0 10-08 00:00: 00 Yes [id number] 1300mg Take 2 tablets by mouth in the morning and 2 tablets in the evening. [facility] acyclovir 400 mg tablet 2022-0 10-08 00:00: 00 Yes [id number] 400mg Take 1 tablet by mouth every 8 (eight) hours. [facility] sodium bicarbonate 650 mg tablet 2022-0 10-08 00:00: 00 Yes [id number] 1300mg Take 2 tablets by mouth in the morning and 2 tablets in the evening. [facility] acyclovir 400 mg tablet 2022-0 10-08 00:00: 00 Yes [id number] 400mg Take 1 tablet by mouth every 8 (eight) hours. [facility] sodium bicarbonate 650 mg tablet 2022-0 10-08 00:00: 00 Yes [id number] 1300mg Take 2 tablets by mouth in the morning and 2 tablets in the evening. [facility] acyclovir 400 mg tablet 2022-0 10-08 00:00: 00 Yes [id number] 400mg Take 1 tablet by mouth every 8 (eight) hours. [facility] sodium bicarbonate 650 mg tablet 2022-0 10-08 00:00: 00 Yes [id number] 1300mg Take 2 tablets by mouth in the morning and 2 tablets in the evening. [facility] acyclovir 400 mg tablet 2022-0 10-08 00:00: 00 Yes [id number] 400mg Take 1 tablet by mouth every 8 (eight) hours. [facility] sodium bicarbonate 650 mg tablet 2022-0 10-08 00:00: 00 Yes [id number] 1300mg Take 2 tablets by mouth in the morning and 2 tablets in the evening. [facility] acyclovir 400 mg tablet 2022-0 10-08 00:00: 00 Yes [id number] 400mg Take 1 tablet by mouth every 8 (eight) hours. [facility] sodium bicarbonate 650 mg tablet 2022-0 10-08 00:00: 00 Yes [id number] 1300mg Take 2 tablets by mouth in the morning and 2 tablets in the evening. [facility] acyclovir 400 mg tablet 0 10-08 00:00: 00 Yes [id number] 400mg Take 1 tablet by mouth every 8 (eight) hours. [facility] sodium bicarbonate 650 mg tablet 0 10-08 00:00: 00 Yes [id number] 1300mg Take 2 tablets by mouth in the morning and 2 tablets in the evening. [facility] acyclovir 400 mg tablet 10-08 00:00: 00 Yes [id number] 400mg Take 1 tablet by mouth every 8 (eight) hours. [facility] sodium bicarbonate 650 mg tablet 2022-0 10-08 00:00: 00 Yes [id number] 1300mg Take 2 tablets by mouth in the morning and 2 tablets in the evening. [facility] sodium bicarbonate 650 mg tablet 0 10-08 00:00: 00 Yes [id number] 1300mg Take 2 tablets by mouth in the morning and 2 tablets in the evening. [facility] sodium bicarbonate 650 mg tablet 2022-0 10-08 00:00: 00 Yes [id number] 1300mg Take 2 tablets by mouth in the morning and 2 tablets in the evening. [facility] sodium bicarbonate 650 mg tablet 2022-0 10-08 00:00: 00 Yes [id number] 1300mg Take 2 tablets by mouth in the morning and 2 tablets in the evening. [facility] sodium bicarbonate 650 mg tablet 2022-0 10-08 00:00: 00 Yes [id number] 1300mg Take 2 tablets by mouth in the morning and 2 tablets in the evening. [facility] sodium bicarbonate 650 mg tablet 2022-0 10-08 00:00: 00 Yes [id number] 1300mg Take 2 tablets by mouth in the morning and 2 tablets in the evening. [facility] sodium bicarbonate 650 mg tablet 2022-0 10-08 00:00: 00 Yes [id number] 1300mg Take 2 tablets by mouth in the morning and 2 tablets in the evening. [facility] sodium bicarbonate 650 mg tablet 10-08 00:00: 00 Yes [id number] 1300mg Take 2 tablets by mouth in the morning and 2 tablets in the evening. [facility] sodium bicarbonate 650 mg tablet 10-08 00:00: 00 Yes [id number] 1300mg Take 2 tablets by mouth in the morning and 2 tablets in the evening. [facility] sodium bicarbonate 650 mg tablet 10-08 00:00: 00 Yes [id number] 1300mg Take 2 tablets by mouth in the morning and 2 tablets in the evening. [facility] sodium bicarbonate 650 mg tablet 10-08 00:00: 00 01-24 00:00 :00 No [id number] 1300mg Take 2 tablets by mouth in the morning and 2 tablets in the evening. [facility] sodium bicarbonate 650 mg tablet 10-08 00:00: 00 01-24 00:00 :00 No [id number] 1300mg Take 2 tablets by mouth in the morning and 2 tablets in the evening. [facility] sodium bicarbonate 650 mg tablet 10-08 00:00: 00 01-24 00:00 :00 No [id number] 1300mg Take 2 tablets by mouth in the morning and 2 tablets in the evening. [facility] acyclovir 400 mg tablet 10-08 00:00: 00 10-08 00:00 :00 No [id number] 400mg Take 1 tablet by mouth every 8 (eight) hours. [facility] sodium bicarbonate 650 mg tablet 10-08 00:00: 00 10-08 00:00 :00 No [id number] 1300mg Take 2 tablets by mouth in the morning and 2 tablets in the evening. [facility] nystatin (NILSTAT) 100,000 unit/mL suspension 1,000,000 Units 10-07 21:00: 00 Yes 10mL 1,000,000 Units (10 mL), Oral, QID, First dose on Tue10/07/22 at 1600, Until Discontinu ed, [facility] [facility] fluconazole (DIFLUCAN) tablet 100 mg 10-07 21:00: 00 10-14 13:59 :00 No 100mg 100 mg, Oral, DAILY, 7 doses, First dose on Tue10/07/22 at 1600, Last dose on Tue10/13/22 at 0900, [place]
Re ason for Anti-Infec tive: Documented Infection< br>Documen josué Infection Site: HEENT
D uration of Therapy: 7 days [facility] diphenhydrA MINE (BENADRYL) tablet 25 mg 10-07 17:45: 00 10-07 20:12 :00 No 25mg 25 mg, Oral, ONCE, 1 dose, On Tue10/07/22 at 1245, Routine [facility] acetaminoph en (TYLENOL) tablet 650 mg 10-07 17:27: 23 Yes 650mg 650 mg, Oral, Q6HPRN, Starting on Tue10/07/22 at 1227, Until Discontinu ed, Routine, Pain (scale 1-3) [facility] darbepoetin michael in polysorbat (ARANESP, POLYSORBATE ,) 200 mcg/0.4 mL injection 09-13 00:00: 00 12-01 04:59 :00 No [id number] 200ug inject 0.4 mL under the skin weekly for 12 doses. [facility] darbepoetin michael in polysorbat (ARANESP, POLYSORBATE ,) 200 mcg/0.4 mL injection 09-13 00:00: 00 12-01 04:59 :00 No [id number] 200ug inject 0.4 mL under the skin weekly for 12 doses. [facility] darbepoetin michael in polysorbat (ARANESP, POLYSORBATE ,) 200 mcg/0.4 mL injection 09-13 00:00: 00 12-01 04:59 :00 No [id number] 9101 200ug inject 0.4 mL under the skin weekly for 12 doses. [facility] darbepoetin michael in polysorbat (ARANESP, POLYSORBATE ,) 200 mcg/0.4 mL injection 0 5-15 00:00: 00 12-01 04:59 :00 No [id number] 9101 200ug inject 0.4 mL under the skin weekly for 12 doses. [facility] darbepoetin michael in polysorbat (ARANESP, POLYSORBATE ,) 200 mcg/0.4 mL injection 0 5-15 00:00: 00 12-01 04:59 :00 No [id number] 9101 200ug inject 0.4 mL under the skin weekly for 12 doses. [facility] darbepoetin michael in polysorbat (ARANESP, POLYSORBATE ,) 200 mcg/0.4 mL injection 0 5-15 00:00: 00 12-01 04:59 :00 No [id number] 9101 200ug inject 0.4 mL under the skin weekly for 12 doses. [facility] darbepoetin michael in polysorbat (ARANESP, POLYSORBATE ,) 200 mcg/0.4 mL injection 0 5-15 00:00: 00 12-01 04:59 :00 No [id number] 9101 200ug inject 0.4 mL under the skin weekly for 12 doses. [facility] darbepoetin michael in polysorbat (ARANESP, POLYSORBATE ,) 200 mcg/0.4 mL injection 0 5-15 00:00: 00 12-01 04:59 :00 No [id number] 9101 200ug inject 0.4 mL under the skin weekly for 12 doses. [facility] darbepoetin michael in polysorbat (ARANESP, POLYSORBATE ,) 200 mcg/0.4 mL injection 2022-0 5-15 00:00: 00 12-01 04:59 :00 No [id number] 9101 200ug inject 0.4 mL under the skin weekly for 12 doses. [facility] darbepoetin michael in polysorbat (ARANESP, POLYSORBATE ,) 200 mcg/0.4 mL injection 0 5-15 00:00: 00 12-01 04:59 :00 No [id number] 9101 200ug inject 0.4 mL under the skin weekly for 12 doses. [facility] darbepoetin michael in polysorbat (ARANESP, POLYSORBATE ,) 200 mcg/0.4 mL injection 0 5-15 00:00: 00 12-01 04:59 :00 No [id number] 9101 200ug inject 0.4 mL under the skin weekly for 12 doses. [facility] darbepoetin michael in polysorbat (ARANESP, POLYSORBATE ,) 200 mcg/0.4 mL injection 0 5-15 00:00: 00 12-01 04:59 :00 No [id number] 9101 200ug inject 0.4 mL under the skin weekly for 12 doses. [facility] darbepoetin michael in polysorbat (ARANESP, POLYSORBATE ,) 200 mcg/0.4 mL injection 0 5-15 00:00: 00 12-01 04:59 :00 No [id number] 9101 200ug inject 0.4 mL under the skin weekly for 12 doses. [facility] darbepoetin michael in polysorbat (ARANESP, POLYSORBATE ,) 200 mcg/0.4 mL injection 0 5-15 00:00: 00 12-01 04:59 :00 No [id number] 9101 200ug inject 0.4 mL under the skin weekly for 12 doses. [facility] darbepoetin michael in polysorbat (ARANESP, POLYSORBATE ,) 200 mcg/0.4 mL injection 0 5-15 00:00: 00 12-01 04:59 :00 No [id number] 9101 200ug inject 0.4 mL under the skin weekly for 12 doses. [facility] darbepoetin michael in polysorbat (ARANESP, POLYSORBATE ,) 200 mcg/0.4 mL injection 3-0 5-15 00:00: 00 12-01 04:59 :00 No [id number] 9101 200ug inject 0.4 mL under the skin weekly for 12 doses. [facility] in polysorbat (ARANESP, POLYSORBATE ,) 200 mcg/0.4 mL injection 3-0 5-15 00:00: 00 12-01 04:59 :00 No [id number] 9101 200ug inject 0.4 mL under the skin weekly for 12 doses. [facility] darbepoetin michael in polysorbat (ARANESP, POLYSORBATE ,) 200 mcg/0.4 mL injection 2022-0 5-15 00:00: 00 12-01 04:59 :00 No [id number] 9101 200ug inject 0.4 mL under the skin weekly for 12 doses. [facility] darbepoetin michael in polysorbat (ARANESP, POLYSORBATE ,) 200 mcg/0.4 mL injection 2022-0 5-15 00:00: 00 12-01 04:59 :00 No [id number] 9101 200ug inject 0.4 mL under the skin weekly for 12 doses. [facility] aspirin 81 mg Cap 2023-0 5-11 15:55: 09 Yes Take by mouth. [facility] aspirin 81 mg Cap 2023-0 5-11 15:55: 09 Yes Take by mouth. [facility] aspirin 81 mg Cap 2023-0 5-11 15:55: 09 Yes Take by mouth. [facility] aspirin 81 mg Cap 2023-0 5-11 15:55: 09 Yes Take by mouth. [facility] aspirin 81 mg Cap 2023-0 5-11 15:55: 09 Yes Take by mouth. [facility] aspirin 81 mg Cap 2023-0 5-11 15:55: 09 Yes Take by mouth. [facility] aspirin 81 mg Cap 2023-0 5-11 15:55: 09 Yes Take by mouth. [facility] aspirin 81 mg Cap 2023-0 5-11 15:55: 09 Yes Take by mouth. [facility] aspirin 81 mg Cap 09-09 15:55: 09 Yes Take by mouth. [facility] aspirin 81 mg Cap 09-09 15:55: 09 Yes Take by mouth. [facility] aspirin 81 mg Cap 09-09 15:55: 09 Yes Take by mouth. [facility] predniSONE (DELTASONE) tablet 10 mg 09-09 14:00: 00 Yes 10mg 10 mg, Oral, DAILY, First dose on Ijeoma 09/09/22 at 0900, Until Discontinu ed, Routine [facility] mycophenola te sodium (MYFORTIC) EC tablet 720 mg 09-09 14:00: 00 Yes 720mg 720 mg, Oral, QAM, First dose on Tue09/09/22 at 0900, Until Discontinu ed, Routine
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 : MAURICE LIM [facility] aspirin chewable tablet 81 mg 09-09 14:00: 00 Yes 81mg 81 mg, Oral, DAILY, First dose on Tue09/09/22 at 0900, Until Discontinu ed [facility] KCL (KLOR-CON M20) tablet 40 mEq 09-09 13:00: 00 09-09 14:19 :00 No 40meq 40 mEq, Oral, ONCE, 1 dose, On Ijeoma 09/09/22 at 0800, Routine [facility] magnesium sulfate in water 2 gram/50 mL (4 %) infusion 2 g 09-09 13:00: 00 09-09 15:19 :00 No 2g 2 g, IV Piggyback, Administer over 60 Minutes, ONCE, 1 dose, On Tue09/09/22 at 0800, Routine [facility] mycophenola te sodium (MYFORTIC) EC tablet 360 mg 09-09 02:00: 00 Yes 360mg 360 mg, Oral, QHS, First dose on Tue09/08/22 at 2100, Until Discontinu ed, Routine
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 : MAURICE LIM [facility] pravastatin (PRAVACHOL) tablet 20 mg 09-09 02:00: 00 Yes 20mg 20 mg, Oral, QHS, First dose on Tue09/08/22 at 2100, Until Discontinu ed, Routine [facility] guanFACINE (TENEX) tablet 2 mg 09-09 02:00: 00 Yes 2mg 2 mg, Oral, QHS, First dose on Tue09/08/22 at 2100, Until Discontinu ed [facility] sodium bicarbonate (ANTACID (SODIUM BICARBONATE )) tablet 650 mg 09-09 01:00: 00 Yes 650mg 650 mg, Oral, BID, First dose on Tue09/08/22 at 1999, Until Discontinu ed, Routine [facility] famotidine (PEPCID AC) tablet 20 mg 09-09 01:00: 00 Yes 20mg 20 mg, Oral, BID, First dose on Tue09/08/22 at 1999, Until Discontinu ed [facility] diltiazem XR (DILT-XR) capsule 240 mg 09-09 01:00: 00 Yes 240mg 240 mg, Oral, BID, First dose on Tue09/08/22 at 1999, Until Discontinu ed, Routine [facility] darbepoetin michael-polyso rbate (ARANESP, POLYSORBATE ,) 100 mcg/0.5 mL injection 09-09 00:00: 00 Yes [id number] 9101 200ug inject 1 mL under the skin weekly. [facility] darbepoetin michael-polyso rbate (ARANESP, POLYSORBATE ,) 100 mcg/0.5 mL injection 09-09 00:00: 00 Yes [id number] 9101 200ug inject 1 mL under the skin weekly. [facility] darbepoetin michael-polyso rbate (ARANESP, POLYSORBATE ,) 100 mcg/0.5 mL injection 09-09 00:00: 00 09-13 00:00 :00 No [id number] 9101 200ug inject 1 mL under the skin weekly. [facility] KCL (KLOR-CON M20) tablet 40 mEq 09-08 19:45: 00 09-08 19:28 :00 No 40meq 40 mEq, Oral, ONCE, 1 dose, On Tue09/08/22 at 1445, Routine [facility] magnesium oxide (MAG-OX 400) tablet 400 mg 09-08 19:00: 00 09-08 19:28 :00 No 400mg 400 mg, Oral, ONCE, 1 dose, On Tue09/08/22 at 1400, Routine [facility] diphenhydrA MINE (BENADRYL) tablet 25 mg 09-08 18:15: 00 09-09 02:58 :00 No 25mg 25 mg, Oral, ONCE, 1 dose, On Tue09/08/22 at 1315, Routine [facility] diphenhydrA MINE (BENADRYL) tablet 25 mg 09-08 17:30: 00 09-08 20:16 :00 No 25mg 25 mg, Oral, ONCE, 1 dose, On Tue09/08/22 at 1230, Routine [facility] ondansetron (ZOFRAN) tablet 8 mg 09-08 17:09: 39 Yes 8mg 8 mg, Oral, Q8HPRN, Starting on Tue09/08/22 at 1209, Until Discontinu ed, Routine, Nausea and Vomiting (N/V) [facility] ARTIFICIAL TEARS,DEXT7 0-HYPRO, OPHTHALMIC 09-08 12:13: 47 09-08 00:00 :[address] in each eye. [facility] ondansetron 8 mg tablet 0 08-28 00:00: 00 Yes [id number] 8mg Take 1 tablet by mouth every 8 (eight) hours as needed for Nausea and Vomiting (N/V). [facility] ondansetron 8 mg tablet 2022-0 08-28 00:00: 00 Yes [id number] 8mg Take 1 tablet by mouth every 8 (eight) hours as needed for Nausea and Vomiting (N/V). [facility] ondansetron 8 mg tablet 2022-0 08-28 00:00: 00 Yes [id number] 8mg Take 1 tablet by mouth every 8 (eight) hours as needed for Nausea and Vomiting (N/V). [facility] ondansetron 8 mg tablet 0 08-28 00:00: 00 Yes [id number] 8mg Take 1 tablet by mouth every 8 (eight) hours as needed for Nausea and Vomiting (N/V). [facility] ondansetron 8 mg tablet 2022-0 08-28 00:00: 00 Yes [id number] 8mg Take 1 tablet by mouth every 8 (eight) hours as needed for Nausea and Vomiting (N/V). [facility] ondansetron 8 mg tablet 2022-0 08-28 00:00: 00 Yes [id number] 8mg Take 1 tablet by mouth every 8 (eight) hours as needed for Nausea and Vomiting (N/V). [facility] ondansetron 8 mg tablet 2022-0 08-28 00:00: 00 Yes [id number] 8mg Take 1 tablet by mouth every 8 (eight) hours as needed for Nausea and Vomiting (N/V). [facility] ondansetron 8 mg tablet 2022-0 08-28 00:00: 00 Yes [id number] 8mg Take 1 tablet by mouth every 8 (eight) hours as needed for Nausea and Vomiting (N/V). [facility] ondansetron 8 mg tablet 2022-0 08-28 00:00: 00 Yes [id number] 8mg Take 1 tablet by mouth every 8 (eight) hours as needed for Nausea and Vomiting (N/V). [facility] ondansetron 8 mg tablet 2022-0 08-28 00:00: 00 Yes [id number] 8mg Take 1 tablet by mouth every 8 (eight) hours as needed for Nausea and Vomiting (N/V). [facility] ondansetron 8 mg tablet 2022-0 08-28 00:00: 00 Yes [id number] 8mg Take 1 tablet by mouth every 8 (eight) hours as needed for Nausea and Vomiting (N/V). [facility] ondansetron 8 mg tablet 2022-0 08-28 00:00: 00 Yes [id number] 8mg Take 1 tablet by mouth every 8 (eight) hours as needed for Nausea and Vomiting (N/V). [facility] ondansetron 8 mg tablet 2022-0 08-28 00:00: 00 Yes [id number] 8mg Take 1 tablet by mouth every 8 (eight) hours as needed for Nausea and Vomiting (N/V). [facility] ondansetron 8 mg tablet 2022-0 08-28 00:00: 00 Yes [id number] 8mg Take 1 tablet by mouth every 8 (eight) hours as needed for Nausea and Vomiting (N/V). [facility] ondansetron 8 mg tablet 2022-0 08-28 00:00: 00 Yes [id number] 8mg Take 1 tablet by mouth every 8 (eight) hours as needed for Nausea and Vomiting (N/V). [facility] ondansetron 8 mg tablet 2022-0 08-28 00:00: 00 Yes [id number] 8mg Take 1 tablet by mouth every 8 (eight) hours as needed for Nausea and Vomiting (N/V). [facility] ondansetron 8 mg tablet 2022-0 08-28 00:00: 00 Yes [id number] 8mg Take 1 tablet by mouth every 8 (eight) hours as needed for Nausea and Vomiting (N/V). [facility] ondansetron 8 mg tablet 2022-0 08-28 00:00: 00 Yes [id number] 8mg Take 1 tablet by mouth every 8 (eight) hours as needed for Nausea and Vomiting (N/V). [facility] ondansetron 8 mg tablet 2022-0 08-28 00:00: 00 Yes [id number] 8mg Take 1 tablet by mouth every 8 (eight) hours as needed for Nausea and Vomiting (N/V). [facility] ondansetron 8 mg tablet 3-0 08-28 00:00: 00 Yes [id number] 8mg Take 1 tablet by mouth every 8 (eight) hours as needed for Nausea and Vomiting (N/V). [facility] ondansetron 8 mg tablet 2022-0 08-28 00:00: 00 Yes [id number] 8mg Take 1 tablet by mouth every 8 (eight) hours as needed for Nausea and Vomiting (N/V). [facility] ondansetron 8 mg tablet 2022-0 08-28 00:00: 00 Yes [id number] 8mg Take 1 tablet by mouth every 8 (eight) hours as needed for Nausea and Vomiting (N/V). [facility] ondansetron 8 mg tablet 2022-0 08-28 00:00: 00 Yes [id number] 8mg Take 1 tablet by mouth every 8 (eight) hours as needed for Nausea and Vomiting (N/V). [facility] ondansetron 8 mg tablet 2022-0 08-28 00:00: 00 Yes [id number] 8mg Take 1 tablet by mouth every 8 (eight) hours as needed for Nausea and Vomiting (N/V). [facility] ondansetron 8 mg tablet 3-0 08-28 00:00: 00 Yes [id number] 8mg Take 1 tablet by mouth every 8 (eight) hours as needed for Nausea and Vomiting (N/V). [facility] ondansetron 8 mg tablet 3-0 29 00:00: 00 Yes [id number] 8mg Take 1 tablet by mouth every 8 (eight) hours as needed for Nausea and Vomiting (N/V). [facility] ondansetron 8 mg tablet 3-0 29 00:00: 00 Yes [id number] 8mg Take 1 tablet by mouth every 8 (eight) hours as needed for Nausea and Vomiting (N/V). [facility] ondansetron 8 mg tablet 2022-0 08-28 00:00: 00 Yes [id number] 8mg Take 1 tablet by mouth every 8 (eight) hours as needed for Nausea and Vomiting (N/V). [facility] ondansetron 8 mg tablet 2022-0 08-28 00:00: 00 Yes [id number] 8mg Take 1 tablet by mouth every 8 (eight) hours as needed for Nausea and Vomiting (N/V). [facility] ondansetron 8 mg tablet 2022-0 08-28 00:00: 00 Yes [id number] 8mg Take 1 tablet by mouth every 8 (eight) hours as needed for Nausea and Vomiting (N/V). [facility] ondansetron 8 mg tablet 2022-0 08-28 00:00: 00 Yes [id number] 8mg Take 1 tablet by mouth every 8 (eight) hours as needed for Nausea and Vomiting (N/V). [facility] ondansetron 8 mg tablet 2022-0 08-28 00:00: 00 Yes [id number] 8mg Take 1 tablet by mouth every 8 (eight) hours as needed for Nausea and Vomiting (N/V). [facility] ondansetron 8 mg tablet 2022-0 08-28 00:00: 00 Yes [id number] 8mg Take 1 tablet by mouth every 8 (eight) hours as needed for Nausea and Vomiting (N/V). [facility] ondansetron 8 mg tablet 3-0 08-28 00:00: 00 Yes [id number] 8mg Take 1 tablet by mouth every 8 (eight) hours as needed for Nausea and Vomiting (N/V). [facility] ondansetron 8 mg tablet 2022-0 08-28 00:00: 00 01-24 00:00 :00 No [id number] 8mg Take 1 tablet by mouth every 8 (eight) hours as needed for Nausea and Vomiting (N/V). [facility] ondansetron 8 mg tablet 08-28 00:00: 00 01-24 00:00 :00 No [id number] 8mg Take 1 tablet by mouth every 8 (eight) hours as needed for Nausea and Vomiting (N/V). [facility] ondansetron 8 mg tablet 08-28 00:00: 00 01-24 00:00 :00 No [id number] 8mg Take 1 tablet by mouth every 8 (eight) hours as needed for Nausea and Vomiting (N/V). [facility] sodium bicarbonate 650 mg tablet 08-24 00:00: 00 Yes [id number] 650mg Take 1 tablet by mouth in the morning and 1 tablet in the evening. [facility] pravastatin 20 mg tablet 0 08-24 00:00: 00 Yes [id number] 20mg Take 1 tablet by mouth at bedtime. [facility] sodium bicarbonate 650 mg tablet 0 08-24 00:00: 00 Yes [id number] 650mg Take 1 tablet by mouth in the morning and 1 tablet in the evening. [facility] pravastatin 20 mg tablet 0 08-24 00:00: 00 Yes [id number] 20mg Take 1 tablet by mouth at bedtime. [facility] sodium bicarbonate 650 mg tablet 0 08-24 00:00: 00 Yes [id number] 650mg Take 1 tablet by mouth in the morning and 1 tablet in the evening. [facility] pravastatin 20 mg tablet 0 08-24 00:00: 00 Yes [id number] 20mg Take 1 tablet by mouth at bedtime. [facility] sodium bicarbonate 650 mg tablet 0 08-24 00:00: 00 Yes [id number] 650mg Take 1 tablet by mouth in the morning and 1 tablet in the evening. [facility] pravastatin 20 mg tablet 0 08-24 00:00: 00 Yes [id number] 20mg Take 1 tablet by mouth at bedtime. [facility] sodium bicarbonate 650 mg tablet 2022-0 08-24 00:00: 00 Yes [id number] 650mg Take 1 tablet by mouth in the morning and 1 tablet in the evening. [facility] pravastatin 20 mg tablet 3-0 425 00:00: 00 Yes [id number] 20mg Take 1 tablet by mouth at bedtime. [facility] sodium bicarbonate 650 mg tablet 2022-0 4-25 00:00: 00 Yes [id number] 650mg Take 1 tablet by mouth in the morning and 1 tablet in the evening. [facility] pravastatin 20 mg tablet 3-0 4-25 00:00: 00 Yes [id number] 20mg Take 1 tablet by mouth at bedtime. [facility] sodium bicarbonate 650 mg tablet 3-0 4-25 00:00: 00 Yes [id number] 650mg Take 1 tablet by mouth in the morning and 1 tablet in the evening. [facility] pravastatin 20 mg tablet 2022-0 4-25 00:00: 00 Yes [id number] 20mg Take 1 tablet by mouth at bedtime. [facility] sodium bicarbonate 650 mg tablet 2022-0 4-25 00:00: 00 Yes [id number] 650mg Take 1 tablet by mouth in the morning and 1 tablet in the evening. [facility] pravastatin 20 mg tablet 3-0 4-25 00:00: 00 Yes [id number] 20mg Take 1 tablet by mouth at bedtime. [facility] sodium bicarbonate 650 mg tablet 3-0 4-25 00:00: 00 Yes [id number] 650mg Take 1 tablet by mouth in the morning and 1 tablet in the evening. [facility] pravastatin 20 mg tablet 3-0 4-25 00:00: 00 Yes [id number] 20mg Take 1 tablet by mouth at bedtime. [facility] sodium bicarbonate 650 mg tablet 3-0 4-25 00:00: 00 Yes [id number] 650mg Take 1 tablet by mouth in the morning and 1 tablet in the evening. [facility] pravastatin 20 mg tablet 3-0 4-25 00:00: 00 Yes [id number] 20mg Take 1 tablet by mouth at bedtime. [facility] sodium bicarbonate 650 mg tablet 3-0 4-25 00:00: 00 Yes [id number] 650mg Take 1 tablet by mouth in the morning and 1 tablet in the evening. [facility] pravastatin 20 mg tablet 3-0 4-25 00:00: 00 Yes [id number] 20mg Take 1 tablet by mouth at bedtime. [facility] sodium bicarbonate 650 mg tablet 3-0 4-25 00:00: 00 Yes [id number] 650mg Take 1 tablet by mouth in the morning and 1 tablet in the evening. [facility] pravastatin 20 mg tablet 2022-0 4-25 00:00: 00 Yes [id number] 20mg Take 1 tablet by mouth at bedtime. [facility] sodium bicarbonate 650 mg tablet 2022-0 4-25 00:00: 00 Yes [id number] 650mg Take 1 tablet by mouth in the morning and 1 tablet in the evening. [facility] pravastatin 20 mg tablet 3-0 -25 00:00: 00 Yes [id number] 20mg Take 1 tablet by mouth at bedtime. [facility] sodium bicarbonate 650 mg tablet 2022-0 -25 00:00: 00 Yes [id number] 650mg Take 1 tablet by mouth in the morning and 1 tablet in the evening. [facility] pravastatin 20 mg tablet 3-0 4-25 00:00: 00 Yes [id number] 20mg Take 1 tablet by mouth at bedtime. [facility] sodium bicarbonate 650 mg tablet 3-0 4-25 00:00: 00 Yes [id number] 650mg Take 1 tablet by mouth in the morning and 1 tablet in the evening. [facility] pravastatin 20 mg tablet 3-0 4-25 00:00: 00 Yes [id number] 20mg Take 1 tablet by mouth at bedtime. [facility] sodium bicarbonate 650 mg tablet 3-0 4-25 00:00: 00 Yes [id number] 650mg Take 1 tablet by mouth in the morning and 1 tablet in the evening. [facility] pravastatin 20 mg tablet 3-0 4-25 00:00: 00 Yes [id number] 20mg Take 1 tablet by mouth at bedtime. [facility] pravastatin 20 mg tablet 2022-0 4-25 00:00: 00 Yes [id number] 20mg Take 1 tablet by mouth at bedtime. [facility] pravastatin 20 mg tablet 2022-0 4-25 00:00: 00 Yes [id number] 20mg Take 1 tablet by mouth at bedtime. [facility] pravastatin 20 mg tablet 2022-0 4-25 00:00: 00 Yes [id number] 20mg Take 1 tablet by mouth at bedtime. [facility] pravastatin 20 mg tablet 2022-0 4-25 00:00: 00 Yes [id number] 20mg Take 1 tablet by mouth at bedtime. [facility] pravastatin 20 mg tablet 2022-0 25 00:00: 00 Yes [id number] 20mg Take 1 tablet by mouth at bedtime. [facility] pravastatin 20 mg tablet 2022-0 25 00:00: 00 11-03 00:00 :00 No [id number] 20mg Take 1 tablet by mouth at bedtime. [facility] sodium bicarbonate 650 mg tablet 2022-0 25 00:00: 00 10-08 00:00 :00 No [id number] 650mg Take 1 tablet by mouth in the morning and 1 tablet in the evening. [facility] pravastatin 20 mg tablet 0 25 00:00: 00 08-24 00:00 :00 No [id number] 20mg Take 1 tablet by mouth at bedtime. [facility] sodium citrate-cit karan acid 500-334 mg/5 mL solution 0 24 00:00: 00 Yes [id number] 15mL Take 15 mL by mouth 2 (two) times daily after breakfast and dinner. [facility] sodium citrate-cit karan acid 500-334 mg/5 mL solution 0 -24 00:00: 00 08-24 00:00 :00 No [id number] 15mL Take 15 mL by mouth 2 (two) times daily after breakfast and dinner. [facility] darbepoetin michael-polyso rbate (ARANESP, POLYSORBATE ,) 100 mcg/0.5 mL injection 08-20 00:00: 00 Yes [id number] 100ug inject 0.5 mL under the skin weekly. [facility] darbepoetin michael-polyso rbate (ARANESP, POLYSORBATE ,) 100 mcg/0.5 mL injection 08-20 00:00: 00 Yes [id number] 100ug inject 0.5 mL under the skin weekly. [facility] darbepoetin michael-polyso rbate (ARANESP, POLYSORBATE ,) 100 mcg/0.5 mL injection 08-20 00:00: 00 Yes [id number] 100ug inject 0.5 mL under the skin weekly. [facility] darbepoetin michael-polyso rbate (ARANESP, POLYSORBATE ,) 100 mcg/0.5 mL injection 08-20 00:00: 00 Yes [id number] 100ug inject 0.5 mL under the skin weekly. [facility] darbepoetin michael-polyso rbate (ARANESP, POLYSORBATE ,) 100 mcg/0.5 mL injection 08-20 00:00: 00 Yes [id number] 9101 100ug inject 0.5 mL under the skin weekly. [facility] darbepoetin michael-polyso rbate (ARANESP, POLYSORBATE ,) 100 mcg/0.5 mL injection 08-20 00:00: 00 Yes [id number] 9101 100ug inject 0.5 mL under the skin weekly. [facility] darbepoetin michael-polyso rbate (ARANESP, POLYSORBATE ,) 100 mcg/0.5 mL injection 08-20 00:00: 00 Yes [id number] 100ug inject 0.5 mL under the skin weekly. [facility] darbepoetin michael-polyso rbate (ARANESP, POLYSORBATE ,) 100 mcg/0.5 mL injection 08-20 00:00: 00 Yes [id number] 100ug inject 0.5 mL under the skin weekly. [facility] darbepoetin mcihael-polyso rbate (ARANESP, POLYSORBATE ,) 100 mcg/0.5 mL injection 08-20 00:00: 00 09-09 00:00 :00 No [id number] 100ug inject 0.5 mL under the skin weekly. [facility] ARTIFICIAL TEARS,DEXT7 0-HYPRO, OPHTHALMIC 08-19 15:55: [address] in each eye. [facility] aspirin 81 mg Cap 08-19 15:55: 36 Yes Take by mouth. [facility] ARTIFICIAL TEARS,DEXT7 0-HYPRO, OPHTHALMIC 08-19 15:55: [address] in each eye. [facility] aspirin 81 mg Cap 08-19 15:55: 36 Yes Take by mouth. [facility] ARTIFICIAL TEARS,DEXT7 0-HYPRO, OPHTHALMIC 08-19 15:55: [address] in each eye. [facility] aspirin 81 mg Cap 0 08-19 15:55: 36 Yes Take by mouth. [facility] ARTIFICIAL TEARS,DEXT7 0-HYPRO, OPHTHALMIC 08-19 15:55: [address] in each eye. [facility] aspirin 81 mg Cap 08-19 15:55: 36 Yes Take by mouth. [facility] ARTIFICIAL TEARS,DEXT7 0-HYPRO, OPHTHALMIC 0 08-19 15:55: [address] in each eye. [facility] aspirin 81 mg Cap 0 08-19 15:55: 36 Yes Take by mouth. [facility] ARTIFICIAL TEARS,DEXT7 0-HYPRO, OPHTHALMIC 2022-0 08-19 15:55: [address] in each eye. [facility] aspirin 81 mg Cap 0 08-19 15:55: 36 Yes Take by mouth. [facility] ARTIFICIAL TEARS,DEXT7 0-HYPRO, OPHTHALMIC 08-19 15:55: [address] in each eye. [facility] aspirin 81 mg Cap 08-19 15:55: 36 Yes Take by mouth. [facility] ARTIFICIAL TEARS,DEXT7 0-HYPRO, OPHTHALMIC 08-19 15:55: [address] in each eye. [facility] aspirin 81 mg Cap 08-19 15:55: 36 Yes Take by mouth. [facility] ARTIFICIAL TEARS,DEXT7 0-HYPRO, OPHTHALMIC 08-19 15:55: [address] in each eye. [facility] aspirin 81 mg Cap 08-19 15:55: 36 Yes Take by mouth. [facility] aspirin chewable tablet 81 mg 08-19 14:00: 00 Yes 81mg 81 mg, Oral, DAILY, First dose on Tue08/19/22 at 0900, Until Discontinu ed, Routine [facility] predniSONE (DELTASONE) tablet 10 mg 08-19 14:00: 00 Yes 10mg 10 mg, Oral, DAILY, First dose on Tue08/19/22 at 0900, Until Discontinu ed, Routine [facility] KCL (KLOR-CON M20) tablet 40 mEq 08-19 12:15: 00 08-19 12:47 :00 No 40meq 40 mEq, Oral, ONCE, 1 dose, On Tue08/19/22 at 0715, Routine [facility] pravastatin (PRAVACHOL) tablet 20 mg 08-19 02:00: 00 Yes 20mg 20 mg, Oral, QHS, First dose on Tue08/18/22 at 2100, Until Discontinu ed, Routine [facility] guanFACINE (TENEX) tablet 2 mg 08-19 02:00: 00 Yes 2mg 2 mg, Oral, QHS, First dose on Tue08/18/22 at 2100, Until Discontinu ed, Routine [facility] diltiazem XR (DILT-XR) capsule 240 mg 08-19 01:00: 00 Yes 240mg 240 mg, Oral, BID, First dose on Tue08/18/22 at 2000, Until Discontinu ed, Routine [facility] diphenhydrA MINE (BENADRYL) injection 25 mg 08-18 19:30: 00 08-18 18:44 :00 No 25mg 25 mg, Intravenou s, ONCE, 1 dose, On Tue08/18/22 at 1430, Routine [facility] mycophenola te sodium (MYFORTIC) EC tablet 360 mg 08-18 19:00: 00 Yes 360mg 360 mg, Oral, TID, First dose on Tue08/18/22 at 1400, Until Discontinu ed, Routine
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 : RACHEAL SIERRA [facility] tc 99m-albumin (DRAXIMAGE MAA) injection 2.1 millicurie 08-18 17:30: 00 08-18 17:30 :00 No [id number] 2.1mCi 2.1 millicurie , Intravenou s, ONCE, 1 dose, On Tue08/18/22 at 1230, Routine [facility] nystatin (NILSTAT) 100,000 unit/mL suspension 1,000,000 Units 08-18 17:00: 00 Yes 10mL 1,000,000 Units (10 mL), Oral, QID, First dose on Tue08/18/22 at 1200, Until Discontinu ed, [place] [facility] ESTARYLLA 0.25-35 mg-mcg per tablet 08-07 00:00: 00 Yes [id number] TAKE 1 TABLET BY MOUTH EVERY DAY [facility] ESTARYLLA 0.25-35 mg-mcg per tablet 08-07 00:00: 00 Yes [id number] TAKE 1 TABLET BY MOUTH EVERY DAY [facility] ESTARYLLA 0.25-35 mg-mcg per tablet 08-07 00:00: 00 Yes [id number] TAKE 1 TABLET BY MOUTH EVERY DAY [facility] ESTARYLLA 0.25-35 mg-mcg per tablet 08-07 00:00: 00 Yes [id number] TAKE 1 TABLET BY MOUTH EVERY DAY [facility] ESTARYLLA 0.25-35 mg-mcg per tablet 0 08-07 00:00: 00 Yes [id number] TAKE 1 TABLET BY MOUTH EVERY DAY [facility] ESTARYLLA 0.25-35 mg-mcg per tablet 0 08-07 00:00: 00 Yes [id number] TAKE 1 TABLET BY MOUTH EVERY DAY [facility] ESTARYLLA 0.25-35 mg-mcg per tablet 0 08-07 00:00: 00 Yes [id number] TAKE 1 TABLET BY MOUTH EVERY DAY [facility] ESTARYLLA 0.25-35 mg-mcg per tablet 0 08-07 00:00: 00 Yes [id number] TAKE 1 TABLET BY MOUTH EVERY DAY [facility] ESTARYLLA 0.25-35 mg-mcg per tablet 0 08-07 00:00: 00 Yes [id number] TAKE 1 TABLET BY MOUTH EVERY DAY [facility] ESTARYLLA 0.25-35 mg-mcg per tablet 0 08-07 00:00: 00 Yes [id number] TAKE 1 TABLET BY MOUTH EVERY DAY [facility] ESTARYLLA 0.25-35 mg-mcg per tablet 0 08-07 00:00: 00 Yes [id number] TAKE 1 TABLET BY MOUTH [facility] 0.25-35 mg-mcg per tablet 0 08-07 00:00: 00 Yes [id number] TAKE 1 TABLET BY MOUTH EVERY DAY [facility] ESTARYLLA 0.25-35 mg-mcg per tablet 0 08-07 00:00: 00 Yes [id number] TAKE 1 TABLET BY MOUTH EVERY DAY [facility] ESTARYLLA 0.25-35 mg-mcg per tablet 0 08-07 00:00: 00 Yes [id number] TAKE 1 TABLET BY MOUTH EVERY DAY [facility] ESTARYLLA 0.25-35 mg-mcg per tablet 0 08-07 00:00: 00 Yes [id number] TAKE 1 TABLET BY MOUTH EVERY DAY [facility] ESTARYLLA 0.25-35 mg-mcg per tablet 0 08-07 00:00: 00 Yes [id number] TAKE 1 TABLET BY MOUTH EVERY DAY [facility] ESTARYLLA 0.25-35 mg-mcg per tablet 0 08-07 00:00: 00 Yes [id number] TAKE 1 TABLET BY MOUTH EVERY DAY [facility] ESTARYLLA 0.25-35 mg-mcg per tablet 0 08-07 00:00: 00 Yes [id number] TAKE 1 TABLET BY MOUTH EVERY DAY [facility] ESTARYLLA 0.25-35 mg-mcg per tablet 0 08-07 00:00: 00 Yes [id number] TAKE 1 TABLET BY MOUTH EVERY DAY [facility] ESTARYLLA 0.25-35 mg-mcg per tablet 0 08-07 00:00: 00 Yes [id number] TAKE 1 TABLET BY MOUTH EVERY DAY [facility] ESTARYLLA 0.25-35 mg-mcg per tablet 0 08-07 00:00: 00 Yes [id number] TAKE 1 TABLET BY MOUTH EVERY DAY [facility] ESTARYLLA 0.25-35 mg-mcg per tablet 0 08-07 00:00: 00 Yes [id number] TAKE 1 TABLET BY MOUTH EVERY DAY [facility] ESTARYLLA 0.25-35 mg-mcg per tablet 0 08-07 00:00: 00 Yes [id number] TAKE 1 TABLET BY MOUTH EVERY DAY [facility] ESTARYLLA 0.25-35 mg-mcg per tablet 0 08-07 00:00: 00 Yes [id number] TAKE 1 TABLET BY MOUTH EVERY DAY [facility] ESTARYLLA 0.25-35 mg-mcg per tablet 0 08-07 00:00: 00 Yes [id number] TAKE 1 TABLET BY MOUTH EVERY DAY [facility] ESTARYLLA 0.25-35 mg-mcg per tablet 0 08-07 00:00: 00 Yes [id number] TAKE 1 TABLET BY MOUTH EVERY DAY [facility] ESTARYLLA 0.25-35 mg-mcg per tablet 0 08-07 00:00: 00 Yes [id number] TAKE 1 TABLET BY MOUTH EVERY DAY [facility] ESTARYLLA 0.25-35 mg-mcg per tablet 0 08-07 00:00: 00 Yes [id number] TAKE 1 TABLET BY MOUTH EVERY DAY [facility] ESTARYLLA 0.25-35 mg-mcg per tablet 0 08-07 00:00: 00 Yes [id number] TAKE 1 TABLET BY MOUTH EVERY DAY [facility] ESTARYLLA 0.25-35 mg-mcg per tablet 0 08-07 00:00: 00 Yes [id number] TAKE 1 TABLET BY MOUTH EVERY DAY [facility] ESTARYLLA 0.25-35 mg-mcg per tablet 0 08-07 00:00: 00 Yes [id number] TAKE 1 TABLET BY MOUTH EVERY DAY [facility] ESTARYLLA 0.25-35 mg-mcg per tablet 0 08-07 00:00: 00 Yes [id number] TAKE 1 TABLET BY MOUTH EVERY DAY [facility] ESTARYLLA 0.25-35 mg-mcg per tablet 0 08-07 00:00: 00 Yes [id number] TAKE 1 TABLET BY MOUTH EVERY DAY [facility] ESTARYLLA 0.25-35 mg-mcg per tablet 0 08-07 00:00: 00 Yes [id number] TAKE 1 TABLET BY MOUTH EVERY DAY [facility] ESTARYLLA 0.25-35 mg-mcg per tablet 0 08-07 00:00: 00 Yes [id number] TAKE 1 TABLET BY MOUTH EVERY DAY [facility] ESTARYLLA 0.25-35 mg-mcg per tablet 0 08-07 00:00: 00 Yes [id number] TAKE 1 TABLET BY MOUTH EVERY DAY [facility] ESTARYLLA 0.25-35 mg-mcg per tablet 0 08-07 00:00: 00 Yes [id number] TAKE 1 TABLET BY MOUTH EVERY DAY [facility] ESTARYLLA 0.25-35 mg-mcg per tablet 0 4-08 00:00: 00 Yes [id number] TAKE 1 TABLET BY MOUTH EVERY DAY [facility] ESTARYLLA 0.25-35 mg-mcg per tablet 0 08-07 00:00: 00 Yes [id number] TAKE 1 TABLET BY MOUTH EVERY DAY [facility] ESTARYLLA 0.25-35 mg-mcg per tablet 0 08-07 00:00: 00 Yes [id number] TAKE 1 TABLET BY MOUTH EVERY DAY [facility] ESTARYLLA 0.25-35 mg-mcg per tablet 0 08-07 00:00: 00 Yes [id number] TAKE 1 TABLET BY MOUTH EVERY DAY [facility] ESTARYLLA 0.25-35 mg-mcg per tablet 0 08-07 00:00: 00 Yes [id number] TAKE 1 TABLET BY MOUTH EVERY DAY [facility] ESTARYLLA 0.25-35 mg-mcg per tablet 0 08-07 00:00: 00 Yes [id number] TAKE 1 TABLET BY MOUTH EVERY DAY [facility] ESTARYLLA 0.25-35 mg-mcg per tablet 0 08-07 00:00: 00 Yes [id number] TAKE 1 TABLET BY MOUTH EVERY DAY [facility] ESTARYLLA 0.25-35 mg-mcg per tablet 0 08-07 00:00: 00 Yes [id number] TAKE 1 TABLET BY MOUTH EVERY DAY [facility] ESTARYLLA 0.25-35 mg-mcg per tablet 0 08-07 00:00: 00 Yes [id number] TAKE 1 TABLET BY MOUTH EVERY DAY [facility] ESTARYLLA 0.25-35 mg-mcg per tablet 0 08-07 00:00: 00 Yes [id number] TAKE 1 TABLET BY MOUTH EVERY DAY [facility] ESTARYLLA 0.25-35 mg-mcg per tablet 0 08-07 00:00: 00 Yes [id number] TAKE 1 TABLET BY MOUTH EVERY DAY [facility] ESTARYLLA 0.25-35 mg-mcg per tablet 2022-0 08 00:00: 00 Yes [id number] TAKE 1 TABLET BY MOUTH EVERY DAY [facility] ESTARYLLA 0.25-35 mg-mcg per tablet 0 08-07 00:00: 00 Yes [id number] TAKE 1 TABLET BY MOUTH EVERY DAY [facility] ESTARYLLA 0.25-35 mg-mcg per tablet 0 08-07 00:00: 00 Yes [id number] TAKE 1 TABLET BY MOUTH EVERY DAY [facility] ESTARYLLA 0.25-35 mg-mcg per tablet 0 08-07 00:00: 00 Yes [id number] TAKE 1 TABLET BY MOUTH EVERY DAY [facility] ESTARYLLA 0.25-35 mg-mcg per tablet 0 08-07 00:00: 00 Yes [id number] TAKE 1 TABLET BY MOUTH EVERY DAY [facility] ESTARYLLA 0.25-35 mg-mcg per tablet 0 08-07 00:00: 00 Yes [id number] TAKE 1 TABLET BY MOUTH EVERY DAY [facility] ESTARYLLA 0.25-35 mg-mcg per tablet 0 08-07 00:00: 00 Yes [id number] TAKE 1 TABLET BY MOUTH EVERY DAY [facility] ESTARYLLA 0.25-35 mg-mcg per tablet 0 08-07 00:00: 00 Yes [id number] TAKE 1 TABLET BY MOUTH EVERY DAY [facility] ESTARYLLA 0.25-35 mg-mcg per tablet 0 08-07 00:00: 00 Yes [id number] TAKE 1 TABLET BY MOUTH EVERY DAY [facility] ESTARYLLA 0.25-35 mg-mcg per tablet 0 08-07 00:00: 00 Yes [id number] TAKE 1 TABLET BY MOUTH EVERY DAY [facility] ESTARYLLA 0.25-35 mg-mcg per tablet 0 08-07 00:00: 00 Yes [id number] TAKE 1 TABLET BY MOUTH EVERY DAY [facility] ESTARYLLA 0.25-35 mg-mcg per tablet 0 08-07 00:00: 00 Yes [id number] TAKE 1 TABLET BY MOUTH EVERY DAY [facility] ESTARYLLA 0.25-35 mg-mcg per tablet 0 08-07 00:00: 00 Yes [id number] TAKE 1 TABLET BY MOUTH EVERY DAY [facility] ESTARYLLA 0.25-35 mg-mcg per tablet 0 08-07 00:00: 00 Yes [id number] TAKE 1 TABLET BY MOUTH EVERY DAY [facility] ESTARYLLA 0.25-35 mg-mcg per tablet 0 08-07 00:00: 00 Yes [id number] TAKE 1 TABLET BY MOUTH EVERY DAY [facility] ESTARYLLA 0.25-35 mg-mcg per tablet 0 08-07 00:00: 00 Yes [id number] TAKE 1 TABLET BY MOUTH EVERY DAY [facility] ESTARYLLA 0.25-35 mg-mcg per tablet 0 08-07 00:00: 00 Yes [id number] TAKE 1 TABLET BY MOUTH EVERY DAY [facility] ESTARYLLA 0.25-35 mg-mcg per tablet 0 08-07 00:00: 00 Yes [id number] TAKE 1 TABLET BY MOUTH EVERY DAY [facility] ESTARYLLA 0.25-35 mg-mcg per tablet 0 08-07 00:00: 00 Yes [id number] TAKE 1 TABLET BY MOUTH EVERY DAY [facility] ESTARYLLA 0.25-35 mg-mcg per tablet 0 08-07 00:00: 00 Yes [id number] TAKE 1 TABLET BY MOUTH EVERY DAY [facility] ESTARYLLA 0.25-35 mg-mcg per tablet 0 08-07 00:00: 00 Yes [id number] TAKE 1 TABLET BY MOUTH EVERY DAY [facility] ESTARYLLA 0.25-35 mg-mcg per tablet 0 08-07 00:00: 00 Yes [id number] TAKE 1 TABLET BY MOUTH EVERY DAY [facility] ESTARYLLA 0.25-35 mg-mcg per tablet 0 08-07 00:00: 00 Yes [id number] TAKE 1 TABLET BY MOUTH EVERY DAY [facility] ESTARYLLA 0.25-35 mg-mcg per tablet 0 08-07 00:00: 00 Yes [id number] TAKE 1 TABLET BY MOUTH EVERY DAY [facility] ESTARYLLA 0.25-35 mg-mcg per tablet 0 08-07 00:00: 00 Yes [id number] TAKE 1 TABLET BY MOUTH EVERY DAY [facility] ESTARYLLA 0.25-35 mg-mcg per tablet 0 08-07 00:00: 00 Yes [id number] TAKE 1 TABLET BY MOUTH EVERY DAY [facility] ESTARYLLA 0.25-35 mg-mcg per tablet 0 08-07 00:00: 00 Yes [id number] TAKE 1 TABLET BY MOUTH EVERY DAY [facility] ESTARYLLA 0.25-35 mg-mcg per tablet 0 08-07 00:00: 00 Yes [id number] TAKE 1 TABLET BY MOUTH EVERY DAY [facility] ESTARYLLA 0.25-35 mg-mcg per tablet 0 08-07 00:00: 00 Yes [id number] TAKE 1 TABLET BY MOUTH EVERY DAY [facility] ESTARYLLA 0.25-35 mg-mcg per tablet 0 08-07 00:00: 00 Yes [id number] TAKE 1 TABLET BY MOUTH EVERY DAY [facility] ESTARYLLA 0.25-35 mg-mcg per tablet 0 08-07 00:00: 00 Yes [id number] TAKE 1 TABLET BY MOUTH EVERY DAY [facility] ESTARYLLA 0.25-35 mg-mcg per tablet 0 08-07 00:00: 00 Yes [id number] TAKE 1 TABLET BY MOUTH EVERY DAY [facility] ESTARYLLA 0.25-35 mg-mcg per tablet 0 08-07 00:00: 00 Yes [id number] TAKE 1 TABLET BY MOUTH EVERY DAY [facility] ESTARYLLA 0.25-35 mg-mcg per tablet 0 08-07 00:00: 00 Yes [id number] TAKE 1 TABLET BY MOUTH EVERY DAY [facility] ESTARYLLA 0.25-35 mg-mcg per tablet 0 08-07 00:00: 00 Yes [id number] TAKE 1 TABLET BY MOUTH EVERY DAY [facility]y [facility] ESTARYLLA 0.25-35 mg-mcg per tablet 08-07 00:00: 00 Yes [id number] TAKE 1 TABLET BY MOUTH EVERY DAY [facility] ESTARYLLA 0.25-35 mg-mcg per tablet 08-07 00:00: 00 Yes [id number] TAKE 1 TABLET BY MOUTH EVERY DAY [facility] ity [facility] ESTARYLLA 0.25-35 mg-mcg per tablet 08-07 00:00: 00 Yes [id number] TAKE 1 TABLET BY MOUTH EVERY DAY [facility] ity [facility] ESTARYLLA 0.25-35 mg-mcg per tablet 08-07 00:00: 00 Yes [id number] TAKE 1 TABLET BY MOUTH EVERY DAY [facility] ity [facility] ESTARYLLA 0.25-35 mg-mcg per tablet 08-07 00:00: 00 Yes [id number] TAKE 1 TABLET BY MOUTH EVERY DAY [facility]y [facility] ESTARYLLA 0.25-35 mg-mcg per tablet 08-07 00:00: 00 Yes [id number] TAKE 1 TABLET BY MOUTH EVERY DAY [facility] ESTARYLLA 0.25-35 mg-mcg per tablet 08-07 00:00: 00 Yes [id number] TAKE 1 TABLET BY MOUTH EVERY DAY [facility] ESTARYLLA 0.25-35 mg-mcg per tablet 08-07 00:00: 00 Yes [id number] TAKE 1 TABLET BY MOUTH EVERY DAY [facility] ESTARYLLA 0.25-35 mg-mcg per tablet 08-07 00:00: 00 Yes [id number] TAKE 1 TABLET BY MOUTH EVERY DAY [facility] ESTARYLLA 0.25-35 mg-mcg per tablet 08-07 00:00: 00 Yes [id number] TAKE 1 TABLET BY MOUTH EVERY DAY [facility] nystatin 100,000 unit/mL suspension 08-04 00:00: 00 Yes [id number] U Take 10 mL by mouth 4 (four) times daily. [facility] nystatin 100,000 unit/mL suspension 08-04 00:00: 00 Yes [id number] U Take 10 mL by mouth 4 (four) times daily. [facility] nystatin 100,000 unit/mL suspension 0 08-04 00:00: 00 Yes [id number] U Take 10 mL by mouth 4 (four) times daily. [facility] nystatin 100,000 unit/mL suspension 0 08-04 00:00: 00 Yes [id number] U Take 10 mL by mouth 4 (four) times daily. [facility] nystatin 100,000 unit/mL suspension 0 08-04 00:00: 00 Yes [id number] U Take 10 mL by mouth 4 (four) times daily. [facility] nystatin 100,000 unit/mL suspension 0 08-04 00:00: 00 Yes [id number] U Take 10 mL by mouth 4 (four) times daily. [facility] nystatin 100,000 unit/mL suspension 0 08-04 00:00: 00 Yes [id number] U Take 10 mL by mouth 4 (four) times daily. [facility] nystatin 100,000 unit/mL suspension 0 08-04 00:00: 00 Yes [id number] U Take 10 mL by mouth 4 (four) times daily. [facility] nystatin 100,000 unit/mL suspension 0 08-04 00:00: 00 Yes [id number] U Take 10 mL by mouth 4 (four) times daily. [facility] nystatin 100,000 unit/mL suspension 0 05 00:00: 00 Yes [id number] U Take 10 mL by mouth 4 (four) times daily. [facility] nystatin 100,000 unit/mL suspension 0 05 00:00: 00 Yes [id number] U Take 10 mL by mouth 4 (four) times daily. [facility] nystatin 100,000 unit/mL suspension 0 05 00:00: 00 Yes [id number] U Take 10 mL by mouth 4 (four) times daily. [facility] nystatin 100,000 unit/mL suspension 0 08-04 00:00: 00 Yes [id number] U Take 10 mL by mouth 4 (four) times daily. [facility] nystatin 100,000 unit/mL suspension 08-04 00:00: 00 Yes [id number] U Take 10 mL by mouth 4 (four) times daily. [facility] nystatin 100,000 unit/mL suspension 0 08-04 00:00: 00 Yes [id number] U Take 10 mL by mouth 4 (four) times daily. [facility] nystatin 100,000 unit/mL suspension 08-04 00:00: 00 Yes [id number] U Take 10 mL by mouth 4 (four) times daily. [facility] nystatin 100,000 unit/mL suspension 0 08-04 00:00: 00 Yes [id number] U Take 10 mL by mouth 4 (four) times daily. [facility] nystatin 100,000 unit/mL suspension 08-04 00:00: 00 Yes [id number] U Take 10 mL by mouth 4 (four) times daily. [facility] nystatin 100,000 unit/mL suspension 08-04 00:00: 00 Yes [id number] U Take 10 mL by mouth 4 (four) times daily. [facility] nystatin 100,000 unit/mL suspension 0 08-04 00:00: 00 Yes [id number] U Take 10 mL by mouth 4 (four) times daily. [facility] nystatin 100,000 unit/mL suspension 0 05 00:00: 00 Yes [id number] U Take 10 mL by mouth 4 (four) times daily. [facility] nystatin 100,000 unit/mL suspension 0 05 00:00: 00 Yes [id number] U Take 10 mL by mouth 4 (four) times daily. [facility] nystatin 100,000 unit/mL suspension 0 05 00:00: 00 Yes [id number] U Take 10 mL by mouth 4 (four) times daily. [facility] nystatin 100,000 unit/mL suspension 0 4-05 00:00: 00 Yes [id number] U Take 10 mL by mouth 4 (four) times daily. [facility] nystatin 100,000 unit/mL suspension 0 4-05 00:00: 00 Yes [id number] U Take 10 mL by mouth 4 (four) times daily. [facility] nystatin 100,000 unit/mL suspension 0 4-05 00:00: 00 Yes [id number] U Take 10 mL by mouth 4 (four) times daily. [facility] nystatin 100,000 unit/mL suspension 0 05 00:00: 00 Yes [id number] U Take 10 mL by mouth 4 (four) times daily. [facility] nystatin 100,000 unit/mL suspension 0 -05 00:00: 00 Yes [id number] U Take 10 mL by mouth 4 (four) times daily. [facility] ity [facility] nystatin 100,000 unit/mL suspension 0 05 00:00: 00 Yes [id number] U Take 10 mL by mouth 4 (four) times daily. [facility] nystatin 100,000 unit/mL suspension 0 05 00:00: 00 Yes [id number] U Take 10 mL by mouth 4 (four) times daily. [facility] nystatin 100,000 unit/mL suspension 0 4-05 00:00: 00 Yes [id number] U Take 10 mL by mouth 4 (four) times daily. [facility] nystatin 100,000 unit/mL suspension 0 4-05 00:00: 00 Yes [id number] U Take 10 mL by mouth 4 (four) times daily. [facility] nystatin 100,000 unit/mL suspension 0 4-05 00:00: 00 Yes [id number] U Take 10 mL by mouth 4 (four) times daily. [facility] nystatin 100,000 unit/mL suspension 0 05 00:00: 00 Yes [id number] U Take 10 mL by mouth 4 (four) times daily. [facility] nystatin 100,000 unit/mL suspension 0 05 00:00: 00 Yes [id number] U Take 10 mL by mouth 4 (four) times daily. [facility] nystatin 100,000 unit/mL suspension 0 05 00:00: 00 Yes [id number] U Take 10 mL by mouth 4 (four) times daily. [facility] nystatin 100,000 unit/mL suspension 0 05 00:00: 00 Yes [id number] U Take 10 mL by mouth 4 (four) times daily. [facility] it[facility] nystatin 100,000 unit/mL suspension 0 08-04 00:00: 00 Yes [id number] U Take 10 mL by mouth 4 (four) times daily. [facility] nystatin 100,000 unit/mL suspension 0 05 00:00: 00 Yes [id number] U Take 10 mL by mouth 4 (four) times daily. [facility] nystatin 100,000 unit/mL suspension 0 05 00:00: 00 Yes [id number] U Take 10 mL by mouth 4 (four) times daily. [facility] nystatin 100,000 unit/mL suspension 0 08-04 00:00: 00 Yes [id number] U Take 10 mL by mouth 4 (four) times daily. [facility] nystatin 100,000 unit/mL suspension 0 05 00:00: 00 Yes [id number] U Take 10 mL by mouth 4 (four) times daily. [facility] nystatin 100,000 unit/mL suspension 0 05 00:00: 00 Yes [id number] U Take 10 mL by mouth 4 (four) times daily. [facility] nystatin 100,000 unit/mL suspension 0 05 00:00: 00 Yes [id number] U Take 10 mL by mouth 4 (four) times daily. [facility] nystatin 100,000 unit/mL suspension 4-05 00:00: 00 01-24 00:00 :00 No [id number] U Take 10 mL by mouth 4 (four) times daily. [facility] nystatin 100,000 unit/mL suspension 4-05 00:00: 00 01-24 00:00 :00 No [id number] U Take 10 mL by mouth 4 (four) times daily. [facility] nystatin 100,000 unit/mL suspension 4-05 00:00: 00 01-24 00:00 :00 No [id number] U Take 10 mL by mouth 4 (four) times daily. [facility] acyclovir 200 mg capsule 07-25 00:00: 00 07-31 04:59 :00 No [id number] 200mg Take 1 capsule by mouth in the morning and 1 capsule at noon and 1 capsule in the evening. Do all this for 5 days. [facility] MYCOPHENOLA TE SODIUM 360 mg EC tablet 07-12 00:00: 00 Yes [id number] TAKE 1 TABLET BY MOUTH IN THE MORNING AT NOON AND IN THE EVENING [facility] MYCOPHENOLA TE SODIUM 360 mg EC tablet 07-12 00:00: 00 Yes [id number] TAKE 1 TABLET BY MOUTH IN THE MORNING AT NOON AND IN THE EVENING [facility] MYCOPHENOLA TE SODIUM 360 mg EC tablet 07-12 00:00: 00 Yes [id number] TAKE 1 TABLET BY MOUTH IN THE MORNING AT NOON AND IN THE EVENING [facility] MYCOPHENOLA TE SODIUM 360 mg EC tablet 0 07-12 00:00: 00 Yes [id number] TAKE 1 TABLET BY MOUTH IN THE MORNING AT NOON AND IN THE EVENING [facility] MYCOPHENOLA TE SODIUM 360 mg EC tablet 0 07-12 00:00: 00 Yes [id number] TAKE 1 TABLET BY MOUTH IN THE MORNING AT NOON AND IN THE EVENING [facility] MYCOPHENOLA TE SODIUM 360 mg EC tablet 0 13 00:00: 00 Yes [id number] TAKE 1 TABLET BY MOUTH IN THE MORNING AT NOON AND IN THE EVENING [facility] MYCOPHENOLA TE SODIUM 360 mg EC tablet 2022-0 13 00:00: 00 Yes [id number] TAKE 1 TABLET BY MOUTH IN THE MORNING AT NOON AND IN THE EVENING [facility] MYCOPHENOLA TE SODIUM 360 mg EC tablet 2022-0 07-12 00:00: 00 Yes [id number] TAKE 1 TABLET BY MOUTH IN THE MORNING AT NOON AND IN THE EVENING [facility] MYCOPHENOLA TE SODIUM 360 mg EC tablet 2022-0 13 00:00: 00 Yes [id number] TAKE 1 TABLET BY MOUTH IN THE MORNING AT NOON AND IN THE EVENING [facility] MYCOPHENOLA TE SODIUM 360 mg EC tablet 2022-0 13 00:00: 00 Yes [id number] TAKE 1 TABLET BY MOUTH IN THE MORNING AT NOON AND IN THE EVENING [facility] MYCOPHENOLA TE SODIUM 360 mg EC tablet 2022-0 07-12 00:00: 00 Yes [id number] TAKE 1 TABLET BY MOUTH IN THE MORNING AT NOON AND IN THE EVENING [facility] MYCOPHENOLA TE SODIUM 360 mg EC tablet 2022-0 13 00:00: 00 Yes [id number] TAKE 1 TABLET BY MOUTH IN THE MORNING AT NOON AND IN THE EVENING [facility] MYCOPHENOLA TE SODIUM 360 mg EC tablet 2022-0 13 00:00: 00 Yes [id number] TAKE 1 TABLET BY MOUTH IN THE MORNING AT NOON AND IN THE EVENING [facility] MYCOPHENOLA TE SODIUM 360 mg EC tablet 2022-0 13 00:00: 00 Yes [id number] TAKE 1 TABLET BY MOUTH IN THE MORNING AT NOON AND IN THE EVENING [facility] MYCOPHENOLA TE SODIUM 360 mg EC tablet 2022-0 13 00:00: 00 Yes [id number] TAKE 1 TABLET BY MOUTH IN THE MORNING AT NOON AND IN THE EVENING [facility] MYCOPHENOLA TE SODIUM 360 mg EC tablet 2022-0 13 00:00: 00 Yes [id number] TAKE 1 TABLET BY MOUTH IN THE MORNING AT NOON AND IN THE EVENING [facility] MYCOPHENOLA TE SODIUM 360 mg EC tablet 3-0 -13 00:00: 00 Yes [id number] TAKE 1 TABLET BY MOUTH IN THE MORNING AT NOON AND IN THE EVENING [facility] MYCOPHENOLA TE SODIUM 360 mg EC tablet 3-0 -13 00:00: 00 Yes [id number] TAKE 1 TABLET BY MOUTH IN THE MORNING AT NOON AND IN THE EVENING [facility] MYCOPHENOLA TE SODIUM 360 mg EC tablet 2022-0 -13 00:00: 00 Yes [id number] TAKE 1 TABLET BY MOUTH IN THE MORNING AT NOON AND IN THE EVENING [facility] MYCOPHENOLA TE SODIUM 360 mg EC tablet 2022-0 -13 00:00: 00 Yes [id number] TAKE 1 TABLET BY MOUTH IN THE MORNING AT NOON AND IN THE EVENING [facility] MYCOPHENOLA TE SODIUM 360 mg EC tablet 2022-0 13 00:00: 00 Yes [id number] TAKE 1 TABLET BY MOUTH IN THE MORNING AT NOON AND IN THE EVENING [facility] MYCOPHENOLA TE SODIUM 360 mg EC tablet 2022-0 13 00:00: 00 Yes [id number] TAKE 1 TABLET BY MOUTH IN THE MORNING AT NOON AND IN THE EVENING [facility] MYCOPHENOLA TE SODIUM 360 mg EC tablet 2022-0 -13 00:00: 00 Yes [id number] TAKE 1 TABLET BY MOUTH IN THE MORNING AT NOON AND IN THE EVENING [facility] MYCOPHENOLA TE SODIUM 360 mg EC tablet 2022-0 13 00:00: 00 Yes [id number] TAKE 1 TABLET BY MOUTH IN THE MORNING AT NOON AND IN THE EVENING [facility] MYCOPHENOLA TE SODIUM 360 mg EC tablet 3-0 -13 00:00: 00 Yes [id number] TAKE 1 TABLET BY MOUTH IN THE MORNING AT NOON AND IN THE EVENING [facility] MYCOPHENOLA TE SODIUM 360 mg EC tablet 3-0 -13 00:00: 00 Yes [id number] TAKE 1 TABLET BY MOUTH IN THE MORNING AT NOON AND IN THE EVENING [facility] MYCOPHENOLA TE SODIUM 360 mg EC tablet 2022-0 13 00:00: 00 Yes [id number] TAKE 1 TABLET BY MOUTH IN THE MORNING AT NOON AND IN THE EVENING [facility] MYCOPHENOLA TE SODIUM 360 mg EC tablet 2022-0 07-12 00:00: 00 Yes [id number] TAKE 1 TABLET BY MOUTH IN THE MORNING AT NOON AND IN THE EVENING [facility] MYCOPHENOLA TE SODIUM 360 mg EC tablet 2022-0 07-12 00:00: 00 Yes [id number] TAKE 1 TABLET BY MOUTH IN THE MORNING AT NOON AND IN THE EVENING [facility] MYCOPHENOLA TE SODIUM 360 mg EC tablet 2022-0 07-12 00:00: 00 Yes [id number] TAKE 1 TABLET BY MOUTH IN THE MORNING AT NOON AND IN THE EVENING [facility] MYCOPHENOLA TE SODIUM 360 mg EC tablet 2022-0 13 00:00: 00 Yes [id number] TAKE 1 TABLET BY MOUTH IN THE MORNING AT NOON AND IN THE EVENING [facility] MYCOPHENOLA TE SODIUM 360 mg EC tablet 2022-0 07-12 00:00: 00 Yes [id number] TAKE 1 TABLET BY MOUTH IN THE MORNING AT NOON AND IN THE EVENING [facility] MYCOPHENOLA TE SODIUM 360 mg EC tablet 2022-0 13 00:00: 00 Yes [id number] TAKE 1 TABLET BY MOUTH IN THE MORNING AT NOON AND IN THE EVENING [facility] MYCOPHENOLA TE SODIUM 360 mg EC tablet 2022-0 13 00:00: 00 Yes [id number] TAKE 1 TABLET BY MOUTH IN THE MORNING AT NOON AND IN THE EVENING [facility] MYCOPHENOLA TE SODIUM 360 mg EC tablet 2022-0 13 00:00: 00 Yes [id number] TAKE 1 TABLET BY MOUTH IN THE MORNING AT NOON AND IN THE EVENING [facility] MYCOPHENOLA TE SODIUM 360 mg EC tablet 2022-0 13 00:00: 00 Yes [id number] TAKE 1 TABLET BY MOUTH IN THE MORNING AT NOON AND IN THE EVENING [facility] MYCOPHENOLA TE SODIUM 360 mg EC tablet 2022-0 3-13 00:00: 00 Yes [id number] TAKE 1 TABLET BY MOUTH IN THE MORNING AT NOON AND IN THE EVENING [facility] MYCOPHENOLA TE SODIUM 360 mg EC tablet 2022-0 07-12 00:00: 00 Yes [id number] TAKE 1 TABLET BY MOUTH IN THE MORNING AT NOON AND IN THE EVENING [facility] MYCOPHENOLA TE SODIUM 360 mg EC tablet 2022-0 07-12 00:00: 00 Yes [id number] TAKE 1 TABLET BY MOUTH IN THE MORNING AT NOON AND IN THE EVENING [facility] MYCOPHENOLA TE SODIUM 360 mg EC tablet 2022-0 13 00:00: 00 Yes [id number] TAKE 1 TABLET BY MOUTH IN THE MORNING AT NOON AND IN THE EVENING [facility] MYCOPHENOLA TE SODIUM 360 mg EC tablet 2022-0 07-12 00:00: 00 Yes [id number] TAKE 1 TABLET BY MOUTH IN THE MORNING AT NOON AND IN THE EVENING [facility] MYCOPHENOLA TE SODIUM 360 mg EC tablet 2022-0 07-12 00:00: 00 Yes [id number] TAKE 1 TABLET BY MOUTH IN THE MORNING AT NOON AND IN THE EVENING [facility] MYCOPHENOLA TE SODIUM 360 mg EC tablet 2022-0 07-12 00:00: 00 Yes [id number] TAKE 1 TABLET BY MOUTH IN THE MORNING AT NOON AND IN THE EVENING [facility] MYCOPHENOLA TE SODIUM 360 mg EC tablet 2022-0 13 00:00: 00 Yes [id number] TAKE 1 TABLET BY MOUTH IN THE MORNING AT NOON AND IN THE EVENING [facility] MYCOPHENOLA TE SODIUM 360 mg EC tablet 2022-0 13 00:00: 00 Yes [id number] TAKE 1 TABLET BY MOUTH IN THE MORNING AT NOON AND IN THE EVENING [facility] MYCOPHENOLA TE SODIUM 360 mg EC tablet 2022-0 07-12 00:00: 00 Yes [id number] TAKE 1 TABLET BY MOUTH IN THE MORNING AT NOON AND IN THE EVENING [facility] MYCOPHENOLA TE SODIUM 360 mg EC tablet 2022-0 07-12 00:00: 00 [id number] 00:00 :00 No [id number] TAKE 1 TABLET BY MOUTH IN THE MORNING AT NOON AND IN THE EVENING [facility] MYCOPHENOLA TE SODIUM 360 mg EC tablet 2022-0 13 00:00: 00 01-24 00:00 :00 No [id number] TAKE 1 TABLET BY MOUTH IN THE MORNING AT NOON AND IN THE EVENING [facility] MYCOPHENOLA TE SODIUM 360 mg EC tablet 2022-0 13 00:00: 00 01-24 00:00 :00 No [id number] TAKE 1 TABLET BY MOUTH IN THE MORNING AT NOON AND IN THE EVENING [facility] predniSONE 10 mg tablet 2022-0 2- 00:00: 00 Yes [id number] 10mg Take 1 tablet by mouth in the morning. [facility] predniSONE 10 mg tablet 2022-0 2- 00:00: 00 Yes [id number] 10mg Take 1 tablet by mouth in the morning. [facility] predniSONE 10 mg tablet 2022-0 2- 00:00: 00 Yes [id number] 10mg Take 1 tablet by mouth in the morning. [facility] predniSONE 10 mg tablet 3-0 2-03 00:00: 00 Yes [id number] 10mg Take 1 tablet by mouth in the morning. [facility] predniSONE 10 mg tablet 2022-0 2-03 00:00: 00 Yes [id number] 10mg Take 1 tablet by mouth in the morning. [facility] predniSONE 10 mg tablet 3-0 2-03 00:00: 00 Yes [id number] 10mg Take 1 tablet by mouth in the morning. [facility] predniSONE 10 mg tablet 3-0 2-03 00:00: 00 Yes [id number] 10mg Take 1 tablet by mouth in the morning. [facility] predniSONE 10 mg tablet 3-0 2-03 00:00: 00 Yes [id number] 10mg Take 1 tablet by mouth in the morning. [facility] predniSONE 10 mg tablet 3-0 2-03 00:00: 00 Yes [id number] 10mg Take 1 tablet by mouth in the morning. [facility] predniSONE 10 mg tablet 3-0 2-03 00:00: 00 Yes [id number] 10mg Take 1 tablet by mouth in the morning. [facility] predniSONE 10 mg tablet 3-0 2-03 00:00: 00 Yes [id number] 10mg Take 1 tablet by mouth in the morning. [facility] predniSONE 10 mg tablet 3-0 2-03 00:00: 00 Yes [id number] 10mg Take 1 tablet by mouth in the morning. [facility] predniSONE 10 mg tablet 3-0 2-03 00:00: 00 Yes [id number] 10mg Take 1 tablet by mouth in the morning. [facility] predniSONE 10 mg tablet 3-0 2-03 00:00: 00 Yes [id number] 10mg Take 1 tablet by mouth in the morning. [facility] predniSONE 10 mg tablet 3-0 2-03 00:00: 00 Yes [id number] 10mg Take 1 tablet by mouth in the morning. [facility] predniSONE 10 mg tablet 3-0 2-03 00:00: 00 Yes [id number] 10mg Take 1 tablet by mouth in the morning. [facility] predniSONE 10 mg tablet 3-0 2-03 00:00: 00 Yes [id number] 10mg Take 1 tablet by mouth in the morning. [facility] predniSONE 10 mg tablet 3-0 2-03 00:00: 00 Yes [id number] 10mg Take 1 tablet by mouth in the morning. [facility] predniSONE 10 mg tablet 3-0 2-03 00:00: 00 Yes [id number] 10mg Take 1 tablet by mouth in the morning. [facility] predniSONE 10 mg tablet 3-0 2-03 00:00: 00 Yes [id number] 10mg Take 1 tablet by mouth in the morning. [facility] predniSONE 10 mg tablet 3-0 2-03 00:00: 00 Yes [id number] 10mg Take 1 tablet by mouth in the morning. [facility] predniSONE 10 mg tablet 3-0 2-03 00:00: 00 Yes [id number] 10mg Take 1 tablet by mouth in the morning. [facility] predniSONE 10 mg tablet 2023-0 2-03 00:00: 00 Yes [id number] 10mg Take 1 tablet by mouth in the morning. [facility] predniSONE 10 mg tablet 3-0 2-03 00:00: 00 Yes [id number] 10mg Take 1 tablet by mouth in the morning. [facility] predniSONE 10 mg tablet 3-0 2-03 00:00: 00 Yes [id number] 10mg Take 1 tablet by mouth in the morning. [facility] predniSONE 10 mg tablet 2023-0 2-03 00:00: 00 Yes [id number] 10mg Take 1 tablet by mouth in the morning. [facility] predniSONE 10 mg tablet 3-0 2-03 00:00: 00 Yes [id number] 10mg Take 1 tablet by mouth in the morning. [facility] predniSONE 10 mg tablet 3-0 2-03 00:00: 00 Yes [id number] 10mg Take 1 tablet by mouth in the morning. [facility] predniSONE 10 mg tablet 3-0 2-03 00:00: 00 Yes [id number] 10mg Take 1 tablet by mouth in the morning. [facility] predniSONE 10 mg tablet 3-0 2-03 00:00: 00 Yes [id number] 10mg Take 1 tablet by mouth in the morning. [facility] predniSONE 10 mg tablet 3-0 2-03 00:00: 00 Yes [id number] 10mg Take 1 tablet by mouth in the morning. [facility] predniSONE 10 mg tablet 3-0 2-03 00:00: 00 Yes [id number] 10mg Take 1 tablet by mouth in the morning. [facility] predniSONE 10 mg tablet 3-0 2-03 00:00: 00 Yes [id number] 10mg Take 1 tablet by mouth in the morning. [facility] predniSONE 10 mg tablet 2023-0 2-03 00:00: 00 Yes [id number] 10mg Take 1 tablet by mouth in the morning. [facility] predniSONE 10 mg tablet 2023-0 2-03 00:00: 00 Yes [id number] 10mg Take 1 tablet by mouth in the morning. [facility] predniSONE 10 mg tablet 2023-0 2-03 00:00: 00 Yes [id number] 10mg Take 1 tablet by mouth in the morning. [facility] predniSONE 10 mg tablet 3-0 2-03 00:00: 00 Yes [id number] 10mg Take 1 tablet by mouth in the morning. [facility] predniSONE 10 mg tablet 2023-0 2-03 00:00: 00 Yes [id number] 10mg Take 1 tablet by mouth in the morning. [facility] predniSONE 10 mg tablet 3-0 2-03 00:00: 00 Yes [id number] 10mg Take 1 tablet by mouth in the morning. [facility] predniSONE 10 mg tablet 3-0 2-03 00:00: 00 Yes [id number] 10mg Take 1 tablet by mouth in the morning. [facility] predniSONE 10 mg tablet 3-0 2-03 00:00: 00 Yes [id number] 10mg Take 1 tablet by mouth in the morning. [facility] predniSONE 10 mg tablet 3-0 2-03 00:00: 00 Yes [id number] 10mg Take 1 tablet by mouth in the morning. [facility] predniSONE 10 mg tablet 3-0 2-03 00:00: 00 Yes [id number] 10mg Take 1 tablet by mouth in the morning. [facility] predniSONE 10 mg tablet 3-0 2-03 00:00: 00 Yes [id number] 10mg Take 1 tablet by mouth in the morning. [facility] predniSONE 10 mg tablet 3-0 2-03 00:00: 00 Yes [id number] 10mg Take 1 tablet by mouth in the morning. [facility] predniSONE 10 mg tablet 3-0 2-03 00:00: 00 Yes [id number] 10mg Take 1 tablet by mouth in the morning. [facility] predniSONE 10 mg tablet 3-0 2-03 00:00: 00 Yes [id number] 10mg Take 1 tablet by mouth in the morning. [facility] predniSONE 10 mg tablet 2023-0 2-03 00:00: 00 Yes [id number] 10mg Take 1 tablet by mouth in the morning. [facility] predniSONE 10 mg tablet 2022-0 2-03 00:00: 00 Yes [id number] 10mg Take 1 tablet by mouth in the morning. [facility] predniSONE 10 mg tablet 2022-0 2-03 00:00: 00 Yes [id number] 10mg Take 1 tablet by mouth in the morning. [facility] predniSONE 10 mg tablet 2022-0 2- 00:00: 00 Yes [id number] 10mg Take 1 tablet by mouth in the morning. [facility] predniSONE 10 mg tablet 0 2- 00:00: 00 01-24 00:00 :00 No [id number] 10mg Take 1 tablet by mouth in the morning. [facility] predniSONE 10 mg tablet 2022-0 2- 00:00: 00 01-24 00:00 :00 No [id number] 10mg Take 1 tablet by mouth in the morning. [facility] predniSONE 10 mg tablet 2 00:00: 00 01-24 00:00 :00 No [id number] 10mg Take 1 tablet by mouth in the morning. [facility] diltiazem XR 240 mg 24 hr capsule 05-26 00:00: 00 Yes [id number] 240mg Take 1 capsule by mouth in the morning and 1 capsule in the evening. [facility] guanFACINE ER 2 mg tablet 0 05-26 00:00: 00 Yes [id number] 2mg Take 1 tablet by mouth at bedtime. [facility] diltiazem XR 240 mg 24 hr capsule 0 05-26 00:00: 00 Yes [id number] 240mg Take 1 capsule by mouth in the morning and 1 capsule in the evening. [facility] guanFACINE ER 2 mg tablet 05-26 00:00: 00 Yes [id number] 2mg Take 1 tablet by mouth at bedtime. [facility] diltiazem XR 240 mg 24 hr capsule 2022-0 25 00:00: 00 Yes [id number] 240mg Take 1 capsule by mouth in the morning and 1 capsule in the evening. [facility] guanFACINE ER 2 mg tablet 2022-0 25 00:00: 00 Yes [id number] 2mg Take 1 tablet by mouth at bedtime. [facility] diltiazem XR 240 mg 24 hr capsule 2022-0 -25 00:00: 00 Yes [id number] 240mg Take 1 capsule by mouth in the morning and 1 capsule in the evening. [facility] guanFACINE ER 2 mg tablet 2022-0 - 00:00: 00 Yes [id number] 2mg Take 1 tablet by mouth at bedtime. [facility] diltiazem XR 240 mg 24 hr capsule 2022-0 - 00:00: 00 Yes [id number] 240mg Take 1 capsule by mouth in the morning and 1 capsule in the evening. [facility] guanFACINE ER 2 mg tablet 2022-0 05-26 00:00: 00 Yes [id number] 2mg Take 1 tablet by mouth at bedtime. [facility] diltiazem XR 240 mg 24 hr capsule 2022-0 05-26 00:00: 00 Yes [id number] 240mg Take 1 capsule by mouth in the morning and 1 capsule in the evening. [facility] guanFACINE ER 2 mg tablet 0 05-26 00:00: 00 Yes [id number] 2mg Take 1 tablet by mouth at bedtime. [facility] diltiazem XR 240 mg 24 hr capsule 2022-0 05-26 00:00: 00 Yes [id number] 240mg Take 1 capsule by mouth in the morning and 1 capsule in the evening. [facility] guanFACINE ER 2 mg tablet 2022-0 25 00:00: 00 Yes [id number] 2mg Take 1 tablet by mouth at bedtime. [facility] diltiazem XR 240 mg 24 hr capsule 2022-0 -25 00:00: 00 Yes [id number] 240mg Take 1 capsule by mouth in the morning and 1 capsule in the evening. [facility] guanFACINE ER 2 mg tablet 3-0 -25 00:00: 00 Yes [id number] 2mg Take 1 tablet by mouth at bedtime. [facility] diltiazem XR 240 mg 24 hr capsule 2022-0 25 00:00: 00 Yes [id number] 240mg Take 1 capsule by mouth in the morning and 1 capsule in the evening. [facility] guanFACINE ER 2 mg tablet 0 25 00:00: 00 Yes [id number] 2mg Take 1 tablet by mouth at bedtime. [facility] diltiazem XR 240 mg 24 hr capsule 2022-0 05-26 00:00: 00 Yes [id number] 240mg Take 1 capsule by mouth in the morning and 1 capsule in the evening. [facility] guanFACINE ER 2 mg tablet 2022-0 05-26 00:00: 00 Yes [id number] 2mg Take 1 tablet by mouth at bedtime. [facility] diltiazem XR 240 mg 24 hr capsule 2022-0 05-26 00:00: 00 Yes [id number] 240mg Take 1 capsule by mouth in the morning and 1 capsule in the evening. [facility] guanFACINE ER 2 mg tablet 2022-0 05-26 00:00: 00 Yes [id number] 2mg Take 1 tablet by mouth at bedtime. [facility] diltiazem XR 240 mg 24 hr capsule 2022-0 05-26 00:00: 00 Yes [id number] 240mg Take 1 capsule by mouth in the morning and 1 capsule in the evening. [facility] guanFACINE ER 2 mg tablet 2022-0 05-26 00:00: 00 Yes [id number] 2mg Take 1 tablet by mouth at bedtime. [facility] diltiazem XR 240 mg 24 hr capsule 2022-0 05-26 00:00: 00 Yes [id number] 240mg Take 1 capsule by mouth in the morning and 1 capsule in the evening. [facility] guanFACINE ER 2 mg tablet 2022-0 25 00:00: 00 Yes [id number] 2mg Take 1 tablet by mouth at bedtime. [facility] diltiazem XR 240 mg 24 hr capsule 3-0 -25 00:00: 00 Yes [id number] 240mg Take 1 capsule by mouth in the morning and 1 capsule in the evening. [facility] guanFACINE ER 2 mg tablet 2022-0 25 00:00: 00 Yes [id number] 2mg Take 1 tablet by mouth at bedtime. [facility] diltiazem XR 240 mg 24 hr capsule 2022-0 -25 00:00: 00 Yes [id number] 240mg Take 1 capsule by mouth in the morning and 1 capsule in the evening. [facility] guanFACINE ER 2 mg tablet 2022-0 - 00:00: 00 Yes [id number] 2mg Take 1 tablet by mouth at bedtime. [facility] diltiazem XR 240 mg 24 hr capsule 2022-0 - 00:00: 00 Yes [id number] 240mg Take 1 capsule by mouth in the morning and 1 capsule in the evening. [facility] guanFACINE ER 2 mg tablet 2022-0 05-26 00:00: 00 Yes [id number] 2mg Take 1 tablet by mouth at bedtime. [facility] diltiazem XR 240 mg 24 hr capsule 2022-0 05-26 00:00: 00 Yes [id number] 240mg Take 1 capsule by mouth in the morning and 1 capsule in the evening. [facility] guanFACINE ER 2 mg tablet 0 05-26 00:00: 00 Yes [id number] 2mg Take 1 tablet by mouth at bedtime. [facility] diltiazem XR 240 mg 24 hr capsule 2022-0 05-26 00:00: 00 Yes [id number] 240mg Take 1 capsule by mouth in the morning and 1 capsule in the evening. [facility] guanFACINE ER 2 mg tablet 2022-0 05-26 00:00: 00 Yes [id number] 2mg Take 1 tablet by mouth at bedtime. [facility] diltiazem XR 240 mg 24 hr capsule 2022-0 25 00:00: 00 Yes [id number] 240mg Take 1 capsule by mouth in the morning and 1 capsule in the evening. [facility] guanFACINE ER 2 mg tablet 2022-0 -25 00:00: 00 Yes [id number] 2mg Take 1 tablet by mouth at bedtime. [facility] diltiazem XR 240 mg 24 hr capsule 2022-0 25 00:00: 00 Yes [id number] 240mg Take 1 capsule by mouth in the morning and 1 capsule in the evening. [facility] guanFACINE ER 2 mg tablet 2022-0 05-26 00:00: 00 Yes [id number] 2mg Take 1 tablet by mouth at bedtime. [facility] diltiazem XR 240 mg 24 hr capsule 2022-0 05-26 00:00: 00 Yes [id number] 240mg Take 1 capsule by mouth in the morning and 1 capsule in the evening. [facility] guanFACINE ER 2 mg tablet 2022-0 05-26 00:00: 00 Yes [id number] 2mg Take 1 tablet by mouth at bedtime. [facility] diltiazem XR 240 mg 24 hr capsule 2022-0 05-26 00:00: 00 Yes [id number] 240mg Take 1 capsule by mouth in the morning and 1 capsule in the evening. [facility] guanFACINE ER 2 mg tablet 0 05-26 00:00: 00 Yes [id number] 2mg Take 1 tablet by mouth at bedtime. [facility] diltiazem XR 240 mg 24 hr capsule 2022-0 05-26 00:00: 00 Yes [id number] 240mg Take 1 capsule by mouth in the morning and 1 capsule in the evening. [facility] guanFACINE ER 2 mg tablet 2022-0 05-26 00:00: 00 Yes [id number] 2mg Take 1 tablet by mouth at bedtime. [facility] diltiazem XR 240 mg 24 hr capsule 2022-0 05-26 00:00: 00 Yes [id number] 240mg Take 1 capsule by mouth in the morning and 1 capsule in the evening. [facility] guanFACINE ER 2 mg tablet 2022-0 25 00:00: 00 Yes [id number] 2mg Take 1 tablet by mouth at bedtime. [facility] diltiazem XR 240 mg 24 hr capsule 3-0 -25 00:00: 00 Yes [id number] 240mg Take 1 capsule by mouth in the morning and 1 capsule in the evening. [facility] guanFACINE ER 2 mg tablet 2022-0 25 00:00: 00 Yes [id number] 2mg Take 1 tablet by mouth at bedtime. [facility] diltiazem XR 240 mg 24 hr capsule 2022-0 -25 00:00: 00 Yes [id number] 240mg Take 1 capsule by mouth in the morning and 1 capsule in the evening. [facility] guanFACINE ER 2 mg tablet 2022-0 05-26 00:00: 00 Yes [id number] 2mg Take 1 tablet by mouth at bedtime. [facility] diltiazem XR 240 mg 24 hr capsule 2022-0 05-26 00:00: 00 Yes [id number] 240mg Take 1 capsule by mouth in the morning and 1 capsule in the evening. [facility] guanFACINE ER 2 mg tablet 2022-0 05-26 00:00: 00 Yes [id number] 2mg Take 1 tablet by mouth at bedtime. [facility] diltiazem XR 240 mg 24 hr capsule 2022-0 05-26 00:00: 00 Yes [id number] 240mg Take 1 capsule by mouth in the morning and 1 capsule in the evening. [facility] guanFACINE ER 2 mg tablet 0 05-26 00:00: 00 Yes [id number] 2mg Take 1 tablet by mouth at bedtime. [facility] diltiazem XR 240 mg 24 hr capsule 2022-0 05-26 00:00: 00 Yes [id number] 240mg Take 1 capsule by mouth in the morning and 1 capsule in the evening. [facility] guanFACINE ER 2 mg tablet 0 05-26 00:00: 00 Yes [id number] 2mg Take 1 tablet by mouth at bedtime. [facility] diltiazem XR 240 mg 24 hr capsule 2022-0 05-26 00:00: 00 Yes [id number] 240mg Take 1 capsule by mouth in the morning and 1 capsule in the evening. [facility] guanFACINE ER 2 mg tablet 2022-0 -25 00:00: 00 Yes [id number] 2mg Take 1 tablet by mouth at bedtime. [facility] diltiazem XR 240 mg 24 hr capsule 2022-0 25 00:00: 00 Yes [id number] 240mg Take 1 capsule by mouth in the morning and 1 capsule in the evening. [facility] guanFACINE ER 2 mg tablet 2022-0 05-26 00:00: 00 Yes [id number] 2mg Take 1 tablet by mouth at bedtime. [facility] diltiazem XR 240 mg 24 hr capsule 2022-0 05-26 00:00: 00 Yes [id number] 240mg Take 1 capsule by mouth in the morning and 1 capsule in the evening. [facility] guanFACINE ER 2 mg tablet 2022-0 05-26 00:00: 00 Yes [id number] 2mg Take 1 tablet by mouth at bedtime. [facility] diltiazem XR 240 mg 24 hr capsule 2022-0 05-26 00:00: 00 Yes [id number] 240mg Take 1 capsule by mouth in the morning and 1 capsule in the evening. [facility] guanFACINE ER 2 mg tablet 0 05-26 00:00: 00 Yes [id number] 2mg Take 1 tablet by mouth at bedtime. [facility] diltiazem XR 240 mg 24 hr capsule 0 05-26 00:00: 00 Yes [id number] 240mg Take 1 capsule by mouth in the morning and 1 capsule in the evening. [facility] guanFACINE ER 2 mg tablet 2022-0 05-26 00:00: 00 Yes [id number] 2mg Take 1 tablet by mouth at bedtime. [facility] diltiazem XR 240 mg 24 hr capsule 2022-0 05-26 00:00: 00 Yes [id number] 240mg Take 1 capsule by mouth in the morning and 1 capsule in the evening. [facility] guanFACINE ER 2 mg tablet 2022-0 05-26 00:00: 00 Yes [id number] 2mg Take 1 tablet by mouth at bedtime. [facility] diltiazem XR 240 mg 24 hr capsule 2022-0 25 00:00: 00 Yes [id number] 240mg Take 1 capsule by mouth in the morning and 1 capsule in the evening. [facility] guanFACINE ER 2 mg tablet 2022-0 25 00:00: 00 Yes [id number] 2mg Take 1 tablet by mouth at bedtime. [facility] diltiazem XR 240 mg 24 hr capsule 2022-0 05-26 00:00: 00 Yes [id number] 240mg Take 1 capsule by mouth in the morning and 1 capsule in the evening. [facility] guanFACINE ER 2 mg tablet 2022-0 05-26 00:00: 00 Yes [id number] 2mg Take 1 tablet by mouth at bedtime. [facility] diltiazem XR 240 mg 24 hr capsule 2022-0 05-26 00:00: 00 Yes [id number] 240mg Take 1 capsule by mouth in the morning and 1 capsule in the evening. [facility] guanFACINE ER 2 mg tablet 2022-0 05-26 00:00: 00 Yes [id number] 2mg Take 1 tablet by mouth at bedtime. [facility] diltiazem XR 240 mg 24 hr capsule 2022-0 05-26 00:00: 00 Yes [id number] 240mg Take 1 capsule by mouth in the morning and 1 capsule in the evening. [facility] guanFACINE ER 2 mg tablet 0 05-26 00:00: 00 Yes [id number] 2mg Take 1 tablet by mouth at bedtime. [facility] diltiazem XR 240 mg 24 hr capsule 2022-0 05-26 00:00: 00 Yes [id number] 240mg Take 1 capsule by mouth in the morning and 1 capsule in the evening. [facility] guanFACINE ER 2 mg tablet 2022-0 05-26 00:00: 00 Yes [id number] 2mg Take 1 tablet by mouth at bedtime. [facility] diltiazem XR 240 mg 24 hr capsule 2022-0 25 00:00: 00 Yes [id number] 240mg Take 1 capsule by mouth in the morning and 1 capsule in the evening. [facility] guanFACINE ER 2 mg tablet 2022-0 -25 00:00: 00 Yes [id number] 2mg Take 1 tablet by mouth at bedtime. [facility] diltiazem XR 240 mg 24 hr capsule 0 05-26 00:00: 00 Yes [id number] 240mg Take 1 capsule by mouth in the morning and 1 capsule in the evening. [facility] guanFACINE ER 2 mg tablet 0 05-26 00:00: 00 Yes [id number] 2mg Take 1 tablet by mouth at bedtime. [facility] guanFACINE ER 2 mg tablet 0 05-26 00:00: 00 Yes [id number] 2mg Take 1 tablet by mouth at bedtime. [facility] guanFACINE ER 2 mg tablet 0 05-26 00:00: 00 Yes [id number] 2mg Take 1 tablet by mouth at bedtime. [facility] guanFACINE ER 2 mg tablet 0 05-26 00:00: 00 Yes [id number] 2mg Take 1 tablet by mouth at bedtime. [facility] guanFACINE ER 2 mg tablet 0 05-26 00:00: 00 Yes [id number] 2mg Take 1 tablet by mouth at bedtime. [facility] guanFACINE ER 2 mg tablet 0 05-26 00:00: 00 Yes [id number] 2mg Take 1 tablet by mouth at bedtime. [facility] guanFACINE ER 2 mg tablet 0 05-26 00:00: 00 Yes [id number] 2mg Take 1 tablet by mouth at bedtime. [facility] guanFACINE ER 2 mg tablet 0 05-26 00:00: 00 Yes [id number] 2mg Take 1 tablet by mouth at bedtime. [facility] guanFACINE ER 2 mg tablet 05-26 00:00: 00 12-28 00:00 :00 No [id number] 2mg Take 1 tablet by mouth at bedtime. [facility] diltiazem XR 240 mg 24 hr capsule 05-26 00:00: 00 11-16 00:00 :00 No [id number] 240mg Take 1 capsule by mouth in the morning and 1 capsule in the evening. [facility] metoclopram deepak HCl 5 mg tablet 3-0 -22 00:00: 00 Yes [id number] 5mg Take 1 tablet by mouth 2 (two) times daily before breakfast and dinner. [facility] metoclopram deepak HCl 5 mg tablet 3-0 -22 00:00: 00 Yes [id number] 5mg Take 1 tablet by mouth 2 (two) times daily before breakfast and dinner. [facility] metoclopram deepak HCl 5 mg tablet 3-0 -22 00:00: 00 Yes [id number] 5mg Take 1 tablet by mouth 2 (two) times daily before breakfast and dinner. [facility] metoclopram deepak HCl 5 mg tablet 3-0 -22 00:00: 00 Yes [id number] 5mg Take 1 tablet by mouth 2 (two) times daily before breakfast and dinner. [facility] metoclopram deepak HCl 5 mg tablet 3-0 -22 00:00: 00 Yes [id number] 5mg Take 1 tablet by mouth 2 (two) times daily before breakfast and dinner. [facility] metoclopram deepak HCl 5 mg tablet 3-0 22 00:00: 00 Yes [id number] 5mg Take 1 tablet by mouth 2 (two) times daily before breakfast and dinner. [facility] metoclopram deepak HCl 5 mg tablet 3-0 -22 00:00: 00 Yes [id number] 5mg Take 1 tablet by mouth 2 (two) times daily before breakfast and dinner. [facility] metoclopram deepak HCl 5 mg tablet 3-0 -22 00:00: 00 Yes [id number] 5mg Take 1 tablet by mouth 2 (two) times daily before breakfast and dinner. [facility] metoclopram deepak HCl 5 mg tablet 3-0 1-22 00:00: 00 Yes [id number] 5mg Take 1 tablet by mouth 2 (two) times daily before breakfast and dinner. [facility] metoclopram deepak HCl 5 mg tablet 2023-0 1-22 00:00: 00 Yes [id number] 5mg Take 1 tablet by mouth 2 (two) times daily before breakfast and dinner. [facility] metoclopram deepak HCl 5 mg tablet 3-0 -22 00:00: 00 Yes [id number] 5mg Take 1 tablet by mouth 2 (two) times daily before breakfast and dinner. [facility] metoclopram deepak HCl 5 mg tablet 3-0 -22 00:00: 00 Yes [id number] 5mg Take 1 tablet by mouth 2 (two) times daily before breakfast and dinner. [facility] metoclopram deepak HCl 5 mg tablet 3-0 -22 00:00: 00 Yes [id number] 5mg Take 1 tablet by mouth 2 (two) times daily before breakfast and dinner. [facility] metoclopram deepak HCl 5 mg tablet 3-0 -22 00:00: 00 Yes [id number] 5mg Take 1 tablet by mouth 2 (two) times daily before breakfast and dinner. [facility] metoclopram deepak HCl 5 mg tablet 3-0 -22 00:00: 00 Yes [id number] 5mg Take 1 tablet by mouth 2 (two) times daily before breakfast and dinner. [facility] metoclopram deepka HCl 5 mg tablet 3-0 22 00:00: 00 Yes [id number] 5mg Take 1 tablet by mouth 2 (two) times daily before breakfast and dinner. [facility] metoclopram deepak HCl 5 mg tablet 3-0 -22 00:00: 00 Yes [id number] 5mg Take 1 tablet by mouth 2 (two) times daily before breakfast and dinner. [facility] metoclopram deepak HCl 5 mg tablet 3-0 -22 00:00: 00 Yes [id number] 5mg Take 1 tablet by mouth 2 (two) times daily before breakfast and dinner. [facility] metoclopram deepak HCl 5 mg tablet 3-0 -22 00:00: 00 Yes [id number] 5mg Take 1 tablet by mouth 2 (two) times daily before breakfast and dinner. [facility] metoclopram deepak HCl 5 mg tablet 2023-0 1-22 00:00: 00 Yes [id number] 5mg Take 1 tablet by mouth 2 (two) times daily before breakfast and dinner. [facility] metoclopram deepak HCl 5 mg tablet 3-0 -22 00:00: 00 Yes [id number] 5mg Take 1 tablet by mouth 2 (two) times daily before breakfast and dinner. [facility] metoclopram deepak HCl 5 mg tablet 3-0 -22 00:00: 00 Yes [id number] 5mg Take 1 tablet by mouth 2 (two) times daily before breakfast and dinner. [facility] metoclopram deepak HCl 5 mg tablet 3-0 -22 00:00: 00 Yes [id number] 5mg Take 1 tablet by mouth 2 (two) times daily before breakfast and dinner. [facility] metoclopram deepak HCl 5 mg tablet 3-0 -22 00:00: 00 Yes [id number] 5mg Take 1 tablet by mouth 2 (two) times daily before breakfast and dinner. [facility] metoclopram deepak HCl 5 mg tablet 3-0 22 00:00: 00 Yes [id number] 5mg Take 1 tablet by mouth 2 (two) times daily before breakfast and dinner. [facility] metoclopram deepak HCl 5 mg tablet 3-0 22 00:00: 00 Yes [id number] 5mg Take 1 tablet by mouth 2 (two) times daily before breakfast and dinner. [facility] metoclopram deepak HCl 5 mg tablet 3-0 -22 00:00: 00 Yes [id number] 5mg Take 1 tablet by mouth 2 (two) times daily before breakfast and dinner. [facility] metoclopram deepak HCl 5 mg tablet 3-0 -22 00:00: 00 Yes [id number] 5mg Take 1 tablet by mouth 2 (two) times daily before breakfast and dinner. [facility] metoclopram deepak HCl 5 mg tablet 3-0 -22 00:00: 00 Yes [id number] 5mg Take 1 tablet by mouth 2 (two) times daily before breakfast and dinner. [facility] metoclopram deepak HCl 5 mg tablet 3-0 -22 00:00: 00 Yes [id number] 5mg Take 1 tablet by mouth 2 (two) times daily before breakfast and dinner. [facility] metoclopram deepak HCl 5 mg tablet 3-0 22 00:00: 00 Yes [id number] 5mg Take 1 tablet by mouth 2 (two) times daily before breakfast and dinner. [facility] metoclopram deepak HCl 5 mg tablet 3-0 22 00:00: 00 Yes [id number] 5mg Take 1 tablet by mouth 2 (two) times daily before breakfast and dinner. [facility] metoclopram deepak HCl 5 mg tablet 3-0 -22 00:00: 00 Yes [id number] 5mg Take 1 tablet by mouth 2 (two) times daily before breakfast and dinner. [facility] metoclopram deepak HCl 5 mg tablet 3-0 22 00:00: 00 Yes [id number] 5mg Take 1 tablet by mouth 2 (two) times daily before breakfast and dinner. [facility] metoclopram deepak HCl 5 mg tablet 3-0 22 00:00: 00 Yes [id number] 5mg Take 1 tablet by mouth 2 (two) times daily before breakfast and dinner. [facility] metoclopram deepak HCl 5 mg tablet 3-0 22 00:00: 00 Yes [id number] 5mg Take 1 tablet by mouth 2 (two) times daily before breakfast and dinner. [facility] metoclopram deepak HCl 5 mg tablet 3-0 22 00:00: 00 Yes [id number] 5mg Take 1 tablet by mouth 2 (two) times daily before breakfast and dinner. [facility] metoclopram deepak HCl 5 mg tablet 3-0 22 00:00: 00 Yes [id number] 5mg Take 1 tablet by mouth 2 (two) times daily before breakfast and dinner. [facility] metoclopram deepak HCl 5 mg tablet 3-0 -22 00:00: 00 Yes [id number] 5mg Take 1 tablet by mouth 2 (two) times daily before breakfast and dinner. [facility] metoclopram deepak HCl 5 mg tablet 3-0 1-22 00:00: 00 Yes [id number] 5mg Take 1 tablet by mouth 2 (two) times daily before breakfast and dinner. [facility] metoclopram deepak HCl 5 mg tablet 3-0 -22 00:00: 00 Yes [id number] 5mg Take 1 tablet by mouth 2 (two) times daily before breakfast and dinner. [facility] metoclopram deepak HCl 5 mg tablet 3-0 -22 00:00: 00 Yes [id number] 5mg Take 1 tablet by mouth 2 (two) times daily before breakfast and dinner. [facility] metoclopram deepak HCl 5 mg tablet 3-0 -22 00:00: 00 Yes [id number] 5mg Take 1 tablet by mouth 2 (two) times daily before breakfast and dinner. [facility] metoclopram deepak HCl 5 mg tablet 3-0 -22 00:00: 00 Yes [id number] 5mg Take 1 tablet by mouth 2 (two) times daily before breakfast and dinner. [facility] metoclopram deepak HCl 5 mg tablet 3-0 22 00:00: 00 Yes [id number] 5mg Take 1 tablet by mouth 2 (two) times daily before breakfast and dinner. [facility] metoclopram deepak HCl 5 mg tablet 3-0 22 00:00: 00 Yes [id number] 5mg Take 1 tablet by mouth 2 (two) times daily before breakfast and dinner. [facility] metoclopram deepak HCl 5 mg tablet 3-0 22 00:00: 00 Yes [id number] 5mg Take 1 tablet by mouth 2 (two) times daily before breakfast and dinner. [facility] metoclopram deepak HCl 5 mg tablet 3-0 -22 00:00: 00 Yes [id number] 5mg Take 1 tablet by mouth 2 (two) times daily before breakfast and dinner. [facility] metoclopram deepak HCl 5 mg tablet 3-0 -22 00:00: 00 Yes [id number] 5mg Take 1 tablet by mouth 2 (two) times daily before breakfast and dinner. [facility] metoclopram deepak HCl 5 mg tablet 2022-0 22 00:00: 00 Yes [id number] 5mg Take 1 tablet by mouth 2 (two) times daily before breakfast and dinner. [facility] metoclopram deepak HCl 5 mg tablet 2022-0 22 00:00: 00 Yes [id number] 5mg Take 1 tablet by mouth 2 (two) times daily before breakfast and dinner. [facility] metoclopram deepak HCl 5 mg tablet 2022-0 05-23 00:00: 00 Yes [id number] 5mg Take 1 tablet by mouth 2 (two) times daily before breakfast and dinner. [facility] metoclopram deepak HCl 5 mg tablet 2022-0 05-23 00:00: 00 Yes [id number] 5mg Take 1 tablet by mouth 2 (two) times daily before breakfast and dinner. [facility] metoclopram deepak HCl 5 mg tablet 05-23 00:00: 00 01-24 00:00 :00 No [id number] 5mg Take 1 tablet by mouth 2 (two) times daily before breakfast and dinner. [facility] metoclopram deepak HCl 5 mg tablet 05-23 00:00: 00 01-24 00:00 :00 No [id number] 5mg Take 1 tablet by mouth 2 (two) times daily before breakfast and dinner. [facility] metoclopram deepak HCl 5 mg tablet 05-23 00:00: 00 01-24 00:00 :00 No [id number] 5mg Take 1 tablet by mouth 2 (two) times daily before breakfast and dinner. [facility] mycophenola te sodium 360 mg EC tablet 0 05-14 00:00: 00 Yes [id number] 360mg Take 1 tablet by mouth in the morning and 1 tablet at noon and 1 tablet in the evening. [facility] mycophenola te sodium 360 mg EC tablet 0 05-14 00:00: 00 Yes [id number] 360mg Take 1 tablet by mouth in the morning and 1 tablet at noon and 1 tablet in the evening. [facility] mycophenola te sodium 360 mg EC tablet 05-14 00:00: 00 Yes [id number] 360mg Take 1 tablet by mouth in the morning and 1 tablet at noon and 1 tablet in the evening. [facility] mycophenola te sodium 360 mg EC tablet 05-14 00:00: 00 Yes [id number] 360mg Take 1 tablet by mouth in the morning and 1 tablet at noon and 1 tablet in the evening. [facility] mycophenola te sodium 360 mg EC tablet 05-14 00:00: 00 Yes [id number] 360mg Take 1 tablet by mouth in the morning and 1 tablet at noon and 1 tablet in the evening. [facility] mycophenola te sodium 360 mg EC tablet 05-14 00:00: 00 Yes [id number] 360mg Take 1 tablet by mouth in the morning and 1 tablet at noon and 1 tablet in the evening. [facility] mycophenola te sodium 360 mg EC tablet 05-14 00:00: 00 Yes [id number] 360mg Take 1 tablet by mouth in the morning and 1 tablet at noon and 1 tablet in the evening. [facility] mycophenola te sodium 360 mg EC tablet 05-14 00:00: 00 Yes [id number] 360mg Take 1 tablet by mouth in the morning and 1 tablet at noon and 1 tablet in the evening. [facility] mycophenola te sodium 360 mg EC tablet 05-14 00:00: 00 Yes [id number] 360mg Take 1 tablet by mouth in the morning and 1 tablet at noon and 1 tablet in the evening. [facility] mycophenola te sodium 360 mg EC tablet 05-14 00:00: 00 Yes [id number] 360mg Take 1 tablet by mouth in the morning and 1 tablet at noon and 1 tablet in the evening. [facility] mycophenola te sodium 360 mg EC tablet 05-14 00:00: 00 07-12 00:00 :00 No [id number] 360mg Take 1 tablet by mouth in the morning and 1 tablet at noon and 1 tablet in the evening. [facility] darbepoetin michael 100 mcg/mL injection 0 05-13 00:00: 00 08-12 04:59 :00 No [id number] 100ug inject 1 mL under the skin every 2 (two) weeks for 90 days. [facility] darbepoetin michael 100 mcg/mL injection 0 05-13 00:00: 00 08-12 04:59 :00 No [id number] 9101 100ug inject 1 mL under the skin every 2 (two) weeks for 90 days. [facility] darbepoetin michael 100 mcg/mL injection 0 05-13 00:00: 00 08-12 04:59 :00 No [id number] 9101 100ug inject 1 mL under the skin every 2 (two) weeks for 90 days. [facility] darbepoetin michael 100 mcg/mL injection 0 05-13 00:00: 00 08-12 04:59 :00 No [id number] 9101 100ug inject 1 mL under the skin every 2 (two) weeks for 90 days. [facility] darbepoetin michael 100 mcg/mL injection 05-13 00:00: 00 08-12 04:59 :00 No [id number] 9101 100ug inject 1 mL under the skin every 2 (two) weeks for 90 days. [facility] darbepoetin michael 100 mcg/mL injection 0 05-13 00:00: 00 08-12 04:59 :00 No [id number] 9101 100ug inject 1 mL under the skin every 2 (two) weeks for 90 days. [facility] darbepoetin michael 100 mcg/mL injection 0 05-13 00:00: 00 08-12 04:59 :00 No [id number] 9101 100ug inject 1 mL under the skin every 2 (two) weeks for 90 days. [facility] darbepoetin michael 100 mcg/mL injection 0 05-13 00:00: 00 08-12 04:59 :00 No [id number] 9101 100ug inject 1 mL under the skin every 2 (two) weeks for 90 days. [facility] darbepoetin michael 100 mcg/mL injection 12 00:00: 00 08-12 04:59 :00 No [id number] 9101 100ug inject 1 mL under the skin every 2 (two) weeks for 90 days. [facility] darbepoetin michael 100 mcg/mL injection 05-13 00:00: 00 08-12 04:59 :00 No [id number] 9101 100ug inject 1 mL under the skin every 2 (two) weeks for 90 days. [facility] darbepoetin michael 100 mcg/mL injection 05-13 00:00: 00 08-12 04:59 :00 No [id number] 9101 100ug inject 1 mL under the skin every 2 (two) weeks for 90 days. [facility] darbepoetin michael 100 mcg/mL injection 05-13 00:00: 00 08-12 04:59 :00 No [id number] 9101 100ug inject 1 mL under the skin every 2 (two) weeks for 90 days. [facility] darbepoetin michael 100 mcg/mL injection 05-13 00:00: 00 08-12 04:59 :00 No [id number] 9101 100ug inject 1 mL under the skin every 2 (two) weeks for 90 days. [facility] darbepoetin imchael 100 mcg/mL injection 12 00:00: 00 08-12 04:59 :00 No [id number] 9101 100ug inject 1 mL under the skin every 2 (two) weeks for 90 days. [facility] darbepoetin michael 100 mcg/mL injection 12 00:00: 00 08-12 04:59 :00 No [id number] 9101 100ug inject 1 mL under the skin every 2 (two) weeks for 90 days. [facility] ARTIFICIAL TEARS,DEXT7 0-HYPRO, OPHTHALMIC 2023-0 05-12 16:08: [address] in each eye. [facility] aspirin 81 mg Cap 2022-0 05-12 16:08: 11 Yes Take by mouth. [facility] ARTIFICIAL TEARS,DEXT7 0-HYPRO, OPHTHALMIC 2023-0 05-12 16:08: [address] in each eye. [facility] aspirin 81 mg Cap 2022-0 05-12 16:08: 11 Yes Take by mouth. [facility] ARTIFICIAL TEARS,DEXT7 0-HYPRO, OPHTHALMIC 2022-0 05-12 16:08: [address] in each eye. [facility] aspirin 81 mg Cap 2022-0 05-12 16:08: 11 Yes Take by mouth. [facility] ARTIFICIAL TEARS,DEXT7 0-HYPRO, OPHTHALMIC 2022-0 05-12 16:08: [address] in each eye. [facility] aspirin 81 mg Cap 2022-0 05-12 16:08: 11 Yes Take by mouth. [facility] ARTIFICIAL TEARS,DEXT7 0-HYPRO, OPHTHALMIC 2022-0 05-12 16:08: [address] [facility] aspirin 81 mg Cap 2022-0 05-12 16:08: 11 Yes Take by mouth. [facility]7 0-HYPRO, OPHTHALMIC 2022-0 05-12 16:08: [address] in each eye. [facility] aspirin 81 mg Cap 2022-0 05-12 16:08: 11 Yes Take by mouth. [facility] ARTIFICIAL TEARS,DEXT7 0-HYPRO, OPHTHALMIC 2022-0 05-12 16:08: [address] in each eye. [facility] aspirin 81 mg Cap 3-0 05-12 16:08: 11 Yes Take by mouth. [facility] ARTIFICIAL TEARS,DEXT7 0-HYPRO, OPHTHALMIC 202-0 05-12 16:08: [address] in each eye. [facility] aspirin 81 mg Cap 2022-0 05-12 16:08: 11 Yes Take by mouth. [facility] ARTIFICIAL TEARS,DEXT7 0-HYPRO, OPHTHALMIC 2022-0 05-12 16:08: [address] in each eye. [facility] aspirin 81 mg Cap 2022-0 05-12 16:08: 11 Yes Take by mouth. [facility] ARTIFICIAL TEARS,DEXT7 0-HYPRO, OPHTHALMIC 2022-0 05-12 16:08: [address] in each eye. [facility] aspirin 81 mg Cap 2022-0 05-12 16:08: 11 Yes Take by mouth. [facility] ARTIFICIAL TEARS,DEXT7 0-HYPRO, OPHTHALMIC 2022-0 05-12 16:08: [address] in each eye. [facility] aspirin 81 mg Cap 2022-0 05-12 16:08: 11 Yes Take by mouth. [facility] ARTIFICIAL TEARS,DEXT7 0-HYPRO, OPHTHALMIC 2022-0 05-12 16:08: [address] in each eye. [facility] aspirin 81 mg Cap 2022-0 05-12 16:08: 11 Yes Take by mouth. [facility] ARTIFICIAL TEARS,DEXT7 0-HYPRO, OPHTHALMIC 2022-0 05-12 16:08: [address] in each eye[address] [facility] aspirin 81 mg Cap 2022-0 05-12 16:08: 11 Yes Take by mouth. [facility] ARTIFICIAL TEARS,DEXT7 0-HYPRO, OPHTHALMIC 2022-0 05-12 16:08: [address] in each eye. [facility] aspirin 81 mg Cap 2022-0 05-12 16:08: 11 Yes Take by mouth. [facility] ARTIFICIAL TEARS,DEXT7 0-HYPRO, OPHTHALMIC 2022-0 05-12 16:08: [address] in each eye. [facility] aspirin 81 mg Cap 2022-0 05-12 16:08: 11 Yes Take by mouth. [facility] ARTIFICIAL TEARS,DEXT7 0-HYPRO, OPHTHALMIC 2022-0 05-12 16:08: [address] in each eye. [facility] aspirin 81 mg Cap 05-12 16:08: 11 Yes Take by mouth. [facility] ARTIFICIAL TEARS,DEXT7 0-HYPRO, OPHTHALMIC 05-12 16:08: [address] in each eye. [facility] aspirin 81 mg Cap 05-12 16:08: 11 Yes Take by mouth. [facility] ARTIFICIAL TEARS,DEXT7 0-HYPRO, OPHTHALMIC 05-12 16:08: [address] in each eye. [facility] aspirin 81 mg Cap 05-12 16:08: 11 Yes Take by mouth. [facility] NaCl 0.9% (NS) bolus infusion 500 mL 05-12 14:00: 00 05-12 15:15 :00 No 500mL at 999 mL/hr, 500 mL, IV Piggyback, ONCE, 1 dose, On Tue05/12/22 at 0800, STAT [facility] NaCl 0.9% (NS) bolus infusion 250 mL 05-12 08:30: 00 05-12 08:36 :00 No 250mL at 999 mL/hr, 250 mL, IV Piggyback, ONCE, 1 dose, On Tue05/12/22 at 0230, STAT [facility] guanFACINE (TENEX) tablet 1 mg 05-12 03:00: 00 Yes 1mg 1 mg, Oral, QHS, First dose on Tue05/11/22 at 2100, Until Discontinu ed, Routine [facility] pravastatin (PRAVACHOL) tablet 20 mg 05-12 03:00: 00 Yes 20mg 20 mg, Oral, QHS, First dose on Tue05/11/22 at 2100, Until Discontinu ed, Routine [facility] mycophenola te sodium (MYFORTIC) EC tablet 360 mg 05-12 03:00: 00 Yes 360mg 360 mg, Oral, QHS, First dose on Tue05/11/22 at 2100, Until Discontinu ed, Routine
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 [facility] sulfamethox azole-trime thoprim (BACTRIM DS) 800-160 mg per tablet 05-12 00:00: 00 Yes [id number] 1{tbl} Take 1 tablet by mouth in the morning and 1 tablet in the evening. [facility] sulfamethox azole-trime thoprim (BACTRIM DS) 800-160 mg per tablet 05-12 00:00: 00 Yes [id number] 1{tbl} Take 1 tablet by mouth in the morning and 1 tablet in the evening. [facility] sulfamethox azole-trime thoprim (BACTRIM DS) 800-160 mg per tablet 05-12 00:00: 00 Yes [id number] 1{tbl} Take 1 tablet by mouth in the morning and 1 tablet in the evening. [facility] sulfamethox azole-trime thoprim (BACTRIM DS) 800-160 mg per tablet 05-12 00:00: 00 Yes [id number] 1{tbl} Take 1 tablet by mouth in the morning and 1 tablet in the evening. [facility] sulfamethox azole-trime thoprim (BACTRIM DS) 800-160 mg per tablet 05-12 00:00: 00 Yes [id number] 1{tbl} Take 1 tablet by mouth in the morning and 1 tablet in the evening. [facility] sulfamethox azole-trime thoprim (BACTRIM DS) 800-160 mg per tablet 05-12 00:00: 00 Yes [id number] 1{tbl} Take 1 tablet by mouth in the morning and 1 tablet in the evening. [facility] sulfamethox azole-trime thoprim (BACTRIM DS) 800-160 mg per tablet 05-12 00:00: 00 Yes [id number] 1{tbl} Take 1 tablet by mouth in the morning and 1 tablet in the evening. [facility] sulfamethox azole-trime thoprim (BACTRIM DS) 800-160 mg per tablet 05-12 00:00: 00 Yes [id number] 1{tbl} Take 1 tablet by mouth in the morning and 1 tablet in the evening. [facility] sulfamethox azole-trime thoprim (BACTRIM DS) 800-160 mg per tablet 05-12 00:00: 00 Yes [id number] 1{tbl} Take 1 tablet by mouth in the morning and 1 tablet in the evening. [facility] sulfamethox azole-trime thoprim (BACTRIM DS) 800-160 mg per tablet 05-12 00:00: 00 Yes [id number] 1{tbl} Take 1 tablet by mouth in the morning and 1 tablet in the evening. [facility] sulfamethox azole-trime thoprim (BACTRIM DS) 800-160 mg per tablet 05-12 00:00: 00 Yes [id number] 1{tbl} Take 1 tablet by mouth in the morning and 1 tablet in the evening. [facility] sulfamethox azole-trime thoprim (BACTRIM DS) 800-160 mg per tablet 05-12 00:00: 00 Yes [id number] 1{tbl} Take 1 tablet by mouth in the morning and 1 tablet in the evening. [facility] sulfamethox azole-trime thoprim (BACTRIM DS) 800-160 mg per tablet 05-12 00:00: 00 Yes [id number] 1{tbl} Take 1 tablet by mouth in the morning and 1 tablet in the evening. [facility] sulfamethox azole-trime thoprim (BACTRIM DS) 800-160 mg per tablet 05-12 00:00: 00 Yes [id number] 1{tbl} Take 1 tablet by mouth in the morning and 1 tablet in the evening. [facility] sulfamethox azole-trime thoprim (BACTRIM DS) 800-160 mg per tablet 05-12 00:00: 00 Yes [id number] 1{tbl} Take 1 tablet by mouth in the morning and 1 tablet in the evening. [facility] sulfamethox azole-trime thoprim (BACTRIM DS) 800-160 mg per tablet 05-12 00:00: 00 Yes [id number] 1{tbl} Take 1 tablet by mouth in the morning and 1 tablet in the evening. [facility] sulfamethox azole-trime thoprim (BACTRIM DS) 800-160 mg per tablet 05-12 00:00: 00 Yes [id number] 1{tbl} Take 1 tablet by mouth in the morning and 1 tablet in the evening. [facility] sulfamethox azole-trime thoprim (BACTRIM DS) 800-160 mg per tablet 05-12 00:00: 00 Yes [id number] 1{tbl} Take 1 tablet by mouth in the morning and 1 tablet in the evening. [facility] sulfamethox azole-trime thoprim (BACTRIM DS) 800-160 mg per tablet 05-12 00:00: 00 08-20 00:00 :00 No [id number] 1{tbl} Take 1 tablet by mouth in the morning and 1 tablet in the evening. [facility] diphenhydrA MINE (BENADRYL) tablet 25 mg 05-11 22:32: 25 Yes 25mg 25 mg, Oral, Q6HPRN, Starting on Tue05/11/22 at 1632, Until Discontinu ed, Routine, nausea [facility] NaCl 0.9% (NS) bolus infusion 1,000 mL 05-11 22:00: 00 05-11 22:00 :00 No 1000mL at 999 mL/hr, 1,000 mL, IV Piggyback, ONCE, 1 dose, On Tue05/11/22 at 1600, STAT [facility] guanFACINE (TENEX) tablet 1 mg 05-11 19:34: 00 05-11 19:52 :00 No 1mg 1 mg, Oral, ONCE, 1 dose, On Tue05/11/22 at 1345, Routine [facility] ondansetron (ZOFRAN) tablet 4 mg 05-11 18:37: 04 Yes 4mg 4 mg, Oral, Q6HPRN, Starting on Tue05/11/22 at 1237, Until Discontinu ed, Routine, Nausea and Vomiting (N/V) [facility] famotidine (PEPCID AC) tablet 20 mg 05-11 15:00: 00 Yes 20mg 20 mg, Oral, DAILY, First dose on Tue05/11/22 at 0900, Until Discontinu ed, Routine [facility] predniSONE (DELTASONE) tablet 10 mg 05-11 15:00: 00 Yes 10mg 10 mg, Oral, DAILY, First dose on Tue05/11/22 at 0900, Until Discontinu ed, Routine [facility] norgestimat e-ethinyl estradioL (VYLIBRA) 0.25-35 mg-mcg per tablet 1 tablet 05-11 15:00: 00 Yes 1{tbl} 1 tablet, Oral, DAILY, First dose on Tue05/11/22 at 0900, Until Discontinu ed, Routine
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 : RACHEAL SIERRA [facility] diltiazem XR (DILT-XR) capsule 240 mg 05-11 14:00: 00 Yes 240mg 240 mg, Oral, BID, First dose on Tue05/11/22 at 0800, Until Discontinu ed, Routine [facility] acetaminoph en (TYLENOL) tablet 650 mg 05-11 08:24: 13 Yes 650mg 650 mg, Oral, Q6HPRN, Starting on Tue05/11/22 at 0224, Until Discontinu ed, Routine, Pain (scale 1-3) [facility] cefTRIAXone (ROCEPHIN) 1,000 mg in NaCl 0.9% (NS) 50 mL MINI-BAG 05-11 07:00: 00 05-11 08:34 :00 No 1000mg 1,000 mg, IV Piggyback, ONCE, 1 dose, On Tue05/11/22 at 0100, Administer over 30 Minutes, 50 mL
Reas on for Anti-Infec tive: Documented Infection< br>Documen josué Infection Site: Urine
D uration of Therapy: 7 days [facility] mycophenola te sodium 360 mg EC tablet 2021-05 00:00: 00 Yes [id number] 360mg Take 1 tablet by mouth every 12 (twelve) hours. [facility] mycophenola te sodium 360 mg EC tablet 2021-05 00:00: 00 Yes [id number] 360mg Take 1 tablet by mouth every 12 (twelve) hours. [facility] mycophenola te sodium 360 mg EC tablet 2021-05 00:00: 00 Yes [id number] 360mg Take 1 tablet by mouth every 12 (twelve) hours. [facility] mycophenola te sodium 360 mg EC tablet 2021-05 00:00: 00 Yes [id number] 360mg Take 1 tablet by mouth every 12 (twelve) hours. [facility] mycophenola te sodium 360 mg EC tablet 2021-05 00:00: 00 Yes [id number] 360mg Take 1 tablet by mouth every 12 (twelve) hours. [facility] mycophenola te sodium 360 mg EC tablet 2021-05 00:00: 00 Yes [id number] 360mg Take 1 tablet by mouth every 12 (twelve) hours. [facility] mycophenola te sodium 360 mg EC tablet 2021-05 00:00: 00 05-14 00:00 :00 No [id number] 360mg Take 1 tablet by mouth every 12 (twelve) hours. [facility] mycophenola te sodium 360 mg EC tablet 2021-05 00:00: 00 05-14 00:00 :00 No [id number] 360mg Take 1 tablet by mouth every 12 (twelve) hours. [facility] Sirolimus 0.5 mg tablet 2021-05 00:00: 00 Yes [id number] .5mg Take 1 tablet by mouth every other day. [facility] Sirolimus 0.5 mg tablet 2021-05 00:00: 00 Yes [id number] .5mg Take 1 tablet by mouth every other day. [facility] Sirolimus 0.5 mg tablet 2021-05 00:00: 00 04-27 00:00 :00 No [id number] .5mg Take 1 tablet by mouth every other day. [facility] GUANFACINE ER 2 mg tablet 2021-05 00:00: 00 Yes [id number] TAKE 1 TABLET BY MOUTH EVERYDAY AT BEDTIME [facility] GUANFACINE ER 2 mg tablet 2021-05 00:00: 00 Yes [id number] TAKE 1 TABLET BY MOUTH EVERYDAY AT BEDTIME [facility] GUANFACINE ER 2 mg tablet 2021-05 00:00: 00 Yes [id number] TAKE 1 TABLET BY MOUTH EVERYDAY AT BEDTIME [facility] GUANFACINE ER 2 mg tablet 2021-05 00:00: 00 Yes [id number] TAKE 1 TABLET BY MOUTH EVERYDAY AT BEDTIME [facility] GUANFACINE ER 2 mg tablet 2021-05 00:00: 00 Yes [id number] TAKE 1 TABLET BY MOUTH EVERYDAY AT BEDTIME [facility] GUANFACINE ER 2 mg tablet 2021-05 00:00: 00 Yes [id number] TAKE 1 TABLET BY MOUTH EVERYDAY AT BEDTIME [facility] GUANFACINE ER 2 mg tablet 2021-05 00:00: 00 Yes [id number] TAKE 1 TABLET BY MOUTH EVERYDAY AT BEDTIME [facility] GUANFACINE ER 2 mg tablet 2021-05 00:00: 00 Yes [id number] TAKE 1 TABLET BY MOUTH EVERYDAY AT BEDTIME [facility] GUANFACINE ER 2 mg tablet 2021-05 00:00: 00 Yes [id number] TAKE 1 TABLET BY MOUTH EVERYDAY AT BEDTIME [facility] GUANFACINE ER 2 mg tablet 2021-05 00:00: 00 Yes [id number] TAKE 1 TABLET BY MOUTH EVERYDAY AT BEDTIME [facility] GUANFACINE ER 2 mg tablet 2021-05 00:00: 00 Yes [id number] TAKE 1 TABLET BY MOUTH EVERYDAY AT BEDTIME [facility] GUANFACINE ER 2 mg tablet 2021-05 00:00: 00 Yes [id number] TAKE 1 TABLET BY MOUTH EVERYDAY AT BEDTIME [facility] GUANFACINE ER 2 mg tablet 2021-05 00:00: 00 Yes [id number] TAKE 1 TABLET BY MOUTH EVERYDAY AT BEDTIME [facility] GUANFACINE ER 2 mg tablet 2021-05 00:00: 00 05-26 00:00 :00 No [id number] TAKE 1 TABLET BY MOUTH EVERYDAY AT BEDTIME [facility] Sirolimus 0.5 mg tablet 2021-05 00:00: 00 Yes [id number] .5mg Take 1 tablet by mouth in the morning. [facility] Sirolimus 0.5 mg tablet 2021-05 00:00: 00 Yes [id number] .5mg Take 1 tablet by mouth in the morning. [facility] [facility] Sirolimus 0.5 mg tablet 2021-05 00:00: 00 Yes [id number] .5mg Take 1 tablet by mouth in the morning. [facility] Sirolimus 0.5 mg tablet 2021-05 1-09 00:00: 00 18 00:00 :00 No [id number] .5mg Take 1 tablet by mouth in the morning. [facility] metoclopram deepak HCl 5 mg tablet 2021-05 0-14 00:00: 00 Yes [id number] 5mg Take 1 tablet by mouth 2 (two) times daily before breakfast and dinner. [facility] metoclopram deepak HCl 5 mg tablet 2021-05 0-14 00:00: 00 Yes [id number] 5mg Take 1 tablet by mouth 2 (two) times daily before breakfast and dinner. [facility] metoclopram deepak HCl 5 mg tablet 2021-05 0-14 00:00: 00 Yes [id number] 5mg Take 1 tablet by mouth 2 (two) times daily before breakfast and dinner. [facility] metoclopram deepak HCl 5 mg tablet 2021-05 0-14 00:00: 00 Yes [id number] 5mg Take 1 tablet by mouth 2 (two) times daily before breakfast and dinner. [facility] metoclopram deepak HCl 5 mg tablet 2021-05 0-14 00:00: 00 Yes [id number] 5mg Take 1 tablet by mouth 2 (two) times daily before breakfast and dinner. [facility] metoclopram deepak HCl 5 mg tablet 2021-05 0-14 00:00: 00 Yes [id number] 5mg Take 1 tablet by mouth 2 (two) times daily before breakfast and dinner. [facility] metoclopram deepak HCl 5 mg tablet 2021-05 0-14 00:00: 00 Yes [id number] 5mg Take 1 tablet by mouth 2 (two) times daily before breakfast and dinner. [facility] metoclopram deepak HCl 5 mg tablet 2021-05 0-14 00:00: 00 Yes [id number] 5mg Take 1 tablet by mouth 2 (two) times daily before breakfast and dinner. [facility] metoclopram deepak HCl 5 mg tablet 2021-05 0-14 00:00: 00 Yes [id number] 5mg Take 1 tablet by mouth 2 (two) times daily before breakfast and dinner. [facility] metoclopram deepak HCl 5 mg tablet 2021-1 0-14 00:00: 00 Yes [id number] 5mg Take 1 tablet by mouth 2 (two) times daily before breakfast and dinner. [facility] metoclopram deepak HCl 5 mg tablet 2021-1 0-14 00:00: 00 Yes [id number] 5mg Take 1 tablet by mouth 2 (two) times daily before breakfast and dinner. [facility] metoclopram deepak HCl 5 mg tablet 2021-1 0-14 00:00: 00 Yes [id number] 5mg Take 1 tablet by mouth 2 (two) times daily before breakfast and dinner. [facility] metoclopram deepak HCl 5 mg tablet 2021- 0-14 00:00: 00 Yes [id number] 5mg Take 1 tablet by mouth 2 (two) times daily before breakfast and dinner. [facility] metoclopram deepak HCl 5 mg tablet 2021- 0-14 00:00: 00 Yes [id number] 5mg Take 1 tablet by mouth 2 (two) times daily before breakfast and dinner. [facility] metoclopram deepak HCl 5 mg tablet 2021- 0-14 00:00: 00 Yes [id number] 5mg Take 1 tablet by mouth 2 (two) times daily before breakfast and dinner. [facility] metoclopram deepak HCl 5 mg tablet 2021- 0-14 00:00: 00 Yes [id number] 5mg Take 1 tablet by mouth 2 (two) times daily before breakfast and dinner. [facility] metoclopram deepak HCl 5 mg tablet 2021- 0-14 00:00: 00 Yes [id number] 5mg Take 1 tablet by mouth 2 (two) times daily before breakfast and dinner. [facility] metoclopram deepak HCl 5 mg tablet 2021-1 0-14 00:00: 00 Yes [id number] 5mg Take 1 tablet by mouth 2 (two) times daily before breakfast and dinner. [facility] metoclopram deepak HCl 5 mg tablet 2021-1 0-14 00:00: 00 Yes [id number] 5mg Take 1 tablet by mouth 2 (two) times daily before breakfast and dinner. [facility] metoclopram deepak HCl 5 mg tablet 2021-05 0-14 00:00: 00 05-21 00:00 :00 No [id number] 5mg Take 1 tablet by mouth 2 (two) times daily before breakfast and dinner. [facility] sirolimus 1 mg tablet 2021-05 0-13 00:00: 00 Yes [id number] 1mg Take 1 tablet by mouth in the morning. [facility] sirolimus 1 mg tablet 2021-05 0-13 00:00: 00 Yes [id number] 1mg Take 1 tablet by mouth in the morning. [facility] sirolimus 1 mg tablet 2021-05 0-13 00:00: 00 Yes [id number] 1mg Take 1 tablet by mouth in the morning. [facility] sirolimus 1 mg tablet 2021-05 0-13 00:00: 00 Yes [id number] 1mg Take 1 tablet by mouth in the morning. [facility] sirolimus 1 mg tablet 2021-05 0-13 00:00: 00 03-10 00:00 :00 No [id number] 1mg Take 1 tablet by mouth in the morning. [facility] sirolimus 1 mg tablet 2021-05 0-13 00:00: 00 03-10 00:00 :00 No [id number] 1mg Take 1 tablet by mouth in the morning. [facility] sirolimus 1 mg tablet 2021-05 0-13 00:00: 00 03-10 00:00 :00 No [id number] 1mg Take 1 tablet by mouth in the morning. [facility] fluconazole 150 mg tablet 8-30 00:00: 00 01-02 04:59 :00 No [id number] 150mg Take 1 tablet by mouth in the morning for 3 doses. [facility] guanFACINE ER 2 mg tablet 8-29 00:00: 00 Yes [id number] 2mg Take 1 tablet by mouth at bedtime. [facility] guanFACINE ER 2 mg tablet 8-29 00:00: 00 Yes [id number] 2mg Take 1 tablet by mouth at bedtime. [facility] guanFACINE ER 2 mg tablet 0 12-28 00:00: 00 Yes [id number] 2mg Take 1 tablet by mouth at bedtime. [facility] guanFACINE ER 2 mg tablet 0 12-28 00:00: 00 Yes [id number] 2mg Take 1 tablet by mouth at bedtime. [facility] guanFACINE ER 2 mg tablet 0 12-28 00:00: 00 Yes [id number] 2mg Take 1 tablet by mouth at bedtime. [facility] guanFACINE ER 2 mg tablet 12-28 00:00: 00 Yes [id number] 2mg Take 1 tablet by mouth at bedtime. [facility] guanFACINE ER 2 mg tablet 12-28 00:00: 00 Yes [id number] 2mg Take 1 tablet by mouth at bedtime. [facility] guanFACINE ER 2 mg tablet 12-28 00:00: 00 Yes [id number] 2mg Take 1 tablet by mouth at bedtime. [facility] guanFACINE ER 2 mg tablet 12-28 00:00: 00 Yes [id number] 2mg Take 1 tablet by mouth at bedtime. [facility] guanFACINE ER 2 mg tablet 12-28 00:00: 00 03-16 00:00 :00 No [id number] 2mg Take 1 tablet by mouth at bedtime. [facility] guanFACINE ER 2 mg tablet 12-28 00:00: 00 03-16 00:00 :00 No [id number] 2mg Take 1 tablet by mouth at bedtime. [facility] guanFACINE ER 2 mg tablet 12-28 00:00: 00 03-16 00:00 :00 No [id number] 2mg Take 1 tablet by mouth at bedtime. [facility] DILTIAZEM XR 240 mg 24 hr capsule 12-10 00:00: 00 Yes [id number] TAKE 1 CAPSULE BY MOUTH TWICE A DAY [facility] DILTIAZEM XR 240 mg 24 hr capsule 2-0 8-11 00:00: 00 Yes [id number] TAKE 1 CAPSULE BY MOUTH TWICE A DAY [facility] [address] [facility] DILTIAZEM XR 240 mg 24 hr capsule 2-0 8-11 00:00: 00 Yes [id number] TAKE 1 CAPSULE BY MOUTH TWICE A DAY [facility] DILTIAZEM XR 240 mg 24 hr capsule 2-0 8-11 00:00: 00 Yes [id number] TAKE 1 CAPSULE BY MOUTH TWICE A DAY [facility] DILTIAZEM XR 240 mg 24 hr capsule 2-0 8-11 00:00: 00 Yes [id number] TAKE 1 CAPSULE BY MOUTH TWICE A DAY [facility] 240 mg 24 hr capsule 2-0 8-11 00:00: 00 Yes [id number] TAKE 1 CAPSULE BY MOUTH TWICE A DAY [facility] DILTIAZEM XR 240 mg 24 hr capsule 2-0 8- 00:00: 00 Yes [id number] TAKE 1 CAPSULE BY MOUTH TWICE A DAY [facility] DILTIAZEM XR 240 mg 24 hr capsule 2-0 8- 00:00: 00 Yes [id number] TAKE 1 CAPSULE BY MOUTH TWICE A DAY [facility] DILTIAZEM XR 240 mg 24 hr capsule 2-0 8- 00:00: 00 Yes [id number] TAKE 1 CAPSULE BY MOUTH TWICE A DAY [facility] DILTIAZEM XR 240 mg 24 hr capsule 2-0 8- 00:00: 00 Yes [id number] TAKE 1 CAPSULE BY MOUTH TWICE A DAY [facility] DILTIAZEM XR 240 mg 24 hr capsule 2-0 8- 00:00: 00 Yes [id number] TAKE 1 CAPSULE BY MOUTH TWICE A DAY [facility] DILTIAZEM XR 240 mg 24 hr capsule 2-0 8-11 00:00: 00 Yes [id number] TAKE 1 CAPSULE BY MOUTH TWICE A DAY [facility] 240 mg 24 hr capsule 2-0 8-11 00:00: 00 Yes [id number] TAKE 1 CAPSULE BY MOUTH TWICE A DAY [facility] DILTIAZEM XR 240 mg 24 hr capsule 2-0 8-11 00:00: 00 Yes [id number] TAKE 1 CAPSULE BY MOUTH TWICE A DAY [facility] DILTIAZEM XR 240 mg 24 hr capsule 2-0 8-11 00:00: 00 Yes [id number] TAKE 1 CAPSULE BY MOUTH TWICE A DAY [facility] DILTIAZEM XR 240 mg 24 hr capsule 2-0 8- 00:00: 00 Yes [id number] TAKE 1 CAPSULE BY MOUTH TWICE A DAY [facility] DILTIAZEM XR 240 mg 24 hr capsule 2-0 8-11 00:00: 00 Yes [id number] TAKE 1 CAPSULE BY MOUTH TWICE A DAY [facility] DILTIAZEM XR 240 mg 24 hr capsule 2-0 8- 00:00: 00 Yes [id number] TAKE 1 CAPSULE BY MOUTH TWICE A DAY [facility] DILTIAZEM XR 240 mg 24 hr capsule 2-0 8- 00:00: 00 Yes [id number] TAKE 1 CAPSULE BY MOUTH TWICE A DAY [facility] DILTIAZEM XR 240 mg 24 hr capsule 2-0 8- 00:00: 00 Yes [id number] TAKE 1 CAPSULE BY MOUTH TWICE A DAY [facility] DILTIAZEM XR 240 mg 24 hr capsule 2-0 8- 00:00: 00 Yes [id number] TAKE 1 CAPSULE BY MOUTH TWICE A DAY [facility] DILTIAZEM XR 240 mg 24 hr capsule 2-0 8- 00:00: 00 Yes [id number] TAKE 1 CAPSULE BY MOUTH TWICE A DAY [facility] DILTIAZEM XR 240 mg 24 hr capsule 2-0 8-11 00:00: 00 Yes [id number] TAKE 1 CAPSULE BY MOUTH TWICE A DAY [facility] DILTIAZEM XR 240 mg 24 hr capsule 2-0 8-11 00:00: 00 Yes [id number] TAKE 1 CAPSULE BY MOUTH TWICE A DAY [facility] DILTIAZEM XR 240 mg 24 hr capsule 2-0 8-11 00:00: 00 Yes [id number] TAKE 1 CAPSULE BY MOUTH TWICE A DAY [facility] DILTIAZEM XR 240 mg 24 hr capsule 2021-0 8 00:00: 00 Yes [id number] TAKE 1 CAPSULE BY MOUTH TWICE A DAY [facility] DILTIAZEM XR 240 mg 24 hr capsule 8 00:00: 00 Yes [id number] TAKE 1 CAPSULE BY MOUTH TWICE A DAY [facility] DILTIAZEM XR 240 mg 24 hr capsule 8 00:00: 00 05-26 00:00 :00 No [id number] TAKE 1 CAPSULE BY MOUTH TWICE A DAY [facility] pravastatin 20 mg tablet 10-16 00:00: 00 Yes [id number] 20mg Take 1 tablet by mouth at bedtime. [facility] norgestimat e-ethinyl estradioL (SPRINTEC) 0.25-35 mg-mcg per tablet 10-16 00:00: 00 Yes [id number] 1{tbl} Take 1 tablet by mouth daily. [facility] pravastatin 20 mg tablet 10-16 00:00: 00 Yes [id number] 20mg Take 1 tablet by mouth at bedtime. [facility] norgestimat e-ethinyl estradioL (SPRINTEC) 0.25-35 mg-mcg per tablet 10-16 00:00: 00 Yes [id number] 1{tbl} Take 1 tablet by mouth daily. [facility] pravastatin 20 mg tablet 10-16 00:00: 00 Yes [id number] 20mg Take 1 tablet by mouth at bedtime. [facility] norgestimat e-ethinyl estradioL (SPRINTEC) 0.25-35 mg-mcg per tablet 10-16 00:00: 00 Yes [id number] 1{tbl} Take 1 tablet by mouth daily. [facility] pravastatin 20 mg tablet 10-16 00:00: 00 Yes [id number] 20mg Take 1 tablet by mouth at bedtime. [facility] norgestimat e-ethinyl estradioL (SPRINTEC) 0.25-35 mg-mcg per tablet 10-16 00:00: 00 Yes [id number] 1{tbl} Take 1 tablet by mouth daily. [facility] pravastatin 20 mg tablet 10-16 00:00: 00 Yes [id number] 20mg Take 1 tablet by mouth at bedtime. [facility] norgestimat e-ethinyl estradioL (SPRINTEC) 0.25-35 mg-mcg per tablet 10-16 00:00: 00 Yes [id number] 1{tbl} Take 1 tablet by mouth daily. [facility] pravastatin 20 mg tablet 10-16 00:00: 00 Yes [id number] 20mg Take 1 tablet by mouth at bedtime. [facility] norgestimat e-ethinyl estradioL (SPRINTEC) 0.25-35 mg-mcg per tablet 10-16 00:00: 00 Yes [id number] 1{tbl} Take 1 tablet by mouth daily. [facility] pravastatin 20 mg tablet 10-16 00:00: 00 Yes [id number] 20mg Take 1 tablet by mouth at bedtime. [facility] norgestimat e-ethinyl estradioL (SPRINTEC) 0.25-35 mg-mcg per tablet 10-16 00:00: 00 Yes [id number] 1{tbl} Take 1 tablet by mouth daily. [facility] pravastatin 20 mg tablet 10-16 00:00: 00 Yes [id number] 20mg Take 1 tablet by mouth at bedtime. [facility] norgestimat e-ethinyl estradioL (SPRINTEC) 0.25-35 mg-mcg per tablet 10-16 00:00: 00 Yes [id number] 1{tbl} Take 1 tablet by mouth daily. [facility] pravastatin 20 mg tablet 10-16 00:00: 00 Yes [id number] 20mg Take 1 tablet by mouth at bedtime. [facility] norgestimat e-ethinyl estradioL (SPRINTEC) 0.25-35 mg-mcg per tablet 10-16 00:00: 00 Yes [id number] 1{tbl} Take 1 tablet by mouth daily. [facility] pravastatin 20 mg tablet 10-16 00:00: 00 Yes [id number] 20mg Take 1 tablet by mouth at bedtime. [facility] norgestimat e-ethinyl estradioL (SPRINTEC) 0.25-35 mg-mcg per tablet 10-16 00:00: 00 Yes [id number] 1{tbl} Take 1 tablet by mouth daily. [facility] pravastatin 20 mg tablet 10-16 00:00: 00 Yes [id number] 20mg Take 1 tablet by mouth at bedtime. [facility] norgestimat e-ethinyl estradioL (SPRINTEC) 0.25-35 mg-mcg per tablet 10-16 00:00: 00 Yes [id number] 1{tbl} Take 1 tablet by mouth daily. [facility] pravastatin 20 mg tablet 10-16 00:00: 00 Yes [id number] 20mg Take 1 tablet by mouth at bedtime. [facility] norgestimat e-ethinyl estradioL (SPRINTEC) 0.25-35 mg-mcg per tablet 10-16 00:00: 00 Yes [id number] 1{tbl} Take 1 tablet by mouth daily. [facility] pravastatin 20 mg tablet 10-16 00:00: 00 Yes [id number] 20mg Take 1 tablet by mouth at bedtime. [facility] norgestimat e-ethinyl estradioL (SPRINTEC) 0.25-35 mg-mcg per tablet 10-16 00:00: 00 Yes [id number] 1{tbl} Take 1 tablet by mouth daily. [facility] pravastatin 20 mg tablet 10-16 00:00: 00 Yes [id number] 20mg Take 1 tablet by mouth at bedtime. [facility] norgestimat e-ethinyl estradioL (SPRINTEC) 0.25-35 mg-mcg per tablet 2021-0 17 00:00: 00 Yes [id number] 1{tbl} Take 1 tablet by mouth daily. [facility] pravastatin 20 mg tablet 0 17 00:00: 00 Yes [id number] 20mg Take 1 tablet by mouth at bedtime. [facility] norgestimat e-ethinyl estradioL (SPRINTEC) 0.25-35 mg-mcg per tablet 0 10-16 00:00: 00 Yes [id number] 1{tbl} Take 1 tablet by mouth daily. [facility] pravastatin 20 mg tablet 0 10-16 00:00: 00 Yes [id number] 20mg Take 1 tablet by mouth at bedtime. [facility] norgestimat e-ethinyl estradioL (SPRINTEC) 0.25-35 mg-mcg per tablet 0 10-16 00:00: 00 Yes [id number] 1{tbl} Take 1 tablet by mouth daily. [facility] pravastatin 20 mg tablet 0 10-16 00:00: 00 Yes [id number] 20mg Take 1 tablet by mouth at bedtime. [facility] norgestimat e-ethinyl estradioL (SPRINTEC) 0.25-35 mg-mcg per tablet 10-16 00:00: 00 Yes [id number] 1{tbl} Take 1 tablet by mouth daily. [facility] pravastatin 20 mg tablet 0 10-16 00:00: 00 Yes [id number] 20mg Take 1 tablet by mouth at bedtime. [facility] norgestimat e-ethinyl estradioL (SPRINTEC) 0.25-35 mg-mcg per tablet 0 10-16 00:00: 00 Yes [id number] 1{tbl} Take 1 tablet by mouth daily. [facility] pravastatin 20 mg tablet 2021-0 10-16 00:00: 00 Yes [id number] 20mg Take 1 tablet by mouth at bedtime. [facility] norgestimat e-ethinyl estradioL (SPRINTEC) 0.25-35 mg-mcg per tablet 0 17 00:00: 00 Yes [id number] 1{tbl} Take 1 tablet by mouth daily. [facility] pravastatin 20 mg tablet 0 17 00:00: 00 Yes [id number] 20mg Take 1 tablet by mouth at bedtime. [facility] norgestimat e-ethinyl estradioL (SPRINTEC) 0.25-35 mg-mcg per tablet 0 10-16 00:00: 00 Yes [id number] 1{tbl} Take 1 tablet by mouth daily. [facility] pravastatin 20 mg tablet 10-16 00:00: 00 Yes [id number] 20mg Take 1 tablet by mouth at bedtime. [facility] norgestimat e-ethinyl estradioL (SPRINTEC) 0.25-35 mg-mcg per tablet 10-16 00:00: 00 Yes [id number] 1{tbl} Take 1 tablet by mouth daily. [facility] pravastatin 20 mg tablet 10-16 00:00: 00 Yes [id number] 20mg Take 1 tablet by mouth at bedtime. [facility] norgestimat e-ethinyl estradioL (SPRINTEC) 0.25-35 mg-mcg per tablet 10-16 00:00: 00 Yes [id number] 1{tbl} Take 1 tablet by mouth daily. [facility] pravastatin 20 mg tablet 0 10-16 00:00: 00 Yes [id number] 20mg Take 1 tablet by mouth at bedtime. [facility] norgestimat e-ethinyl estradioL (SPRINTEC) 0.25-35 mg-mcg per tablet 10-16 00:00: 00 Yes [id number] 1{tbl} Take 1 tablet by mouth daily. [facility] pravastatin 20 mg tablet 0 17 00:00: 00 Yes [id number] 20mg Take 1 tablet by mouth at bedtime. [facility] norgestimat e-ethinyl estradioL (SPRINTEC) 0.25-35 mg-mcg per tablet 10-16 00:00: 00 Yes [id number] 1{tbl} Take 1 tablet by mouth daily. [facility] pravastatin 20 mg tablet 10-16 00:00: 00 Yes [id number] 20mg Take 1 tablet by mouth at bedtime. [facility] norgestimat e-ethinyl estradioL (SPRINTEC) 0.25-35 mg-mcg per tablet 10-16 00:00: 00 Yes [id number] 1{tbl} Take 1 tablet by mouth daily. [facility] pravastatin 20 mg tablet 10-16 00:00: 00 Yes [id number] 20mg Take 1 tablet by mouth at bedtime. [facility] norgestimat e-ethinyl estradioL (SPRINTEC) 0.25-35 mg-mcg per tablet 10-16 00:00: 00 Yes [id number] 1{tbl} Take 1 tablet by mouth daily. [facility] pravastatin 20 mg tablet 10-16 00:00: 00 Yes [id number] 20mg Take 1 tablet by mouth at bedtime. [facility] norgestimat e-ethinyl estradioL (SPRINTEC) 0.25-35 mg-mcg per tablet 10-16 00:00: 00 Yes [id number] 1{tbl} Take 1 tablet by mouth daily. [facility] pravastatin 20 mg tablet 10-16 00:00: 00 Yes [id number] 20mg Take 1 tablet by mouth at bedtime. [facility] norgestimat e-ethinyl estradioL (SPRINTEC) 0.25-35 mg-mcg per tablet 10-16 00:00: 00 Yes [id number] 1{tbl} Take 1 tablet by mouth daily. [facility] pravastatin 20 mg tablet 10-16 00:00: 00 Yes [id number] 20mg Take 1 tablet by mouth at bedtime. [facility] norgestimat e-ethinyl estradioL (SPRINTEC) 0.25-35 mg-mcg per tablet 0 10-16 00:00: 00 Yes [id number] 1{tbl} Take 1 tablet by mouth daily. [facility] pravastatin 20 mg tablet 0 10-16 00:00: 00 Yes [id number] 20mg Take 1 tablet by mouth at bedtime. [facility] norgestimat e-ethinyl estradioL (SPRINTEC) 0.25-35 mg-mcg per tablet 10-16 00:00: 00 Yes [id number] 1{tbl} Take 1 tablet by mouth daily. [facility] pravastatin 20 mg tablet 10-16 00:00: 00 Yes [id number] 20mg Take 1 tablet by mouth at bedtime. [facility] norgestimat e-ethinyl estradioL (SPRINTEC) 0.25-35 mg-mcg per tablet 10-16 00:00: 00 Yes [id number] 1{tbl} Take 1 tablet by mouth daily. [facility] pravastatin 20 mg tablet 0 10-16 00:00: 00 Yes [id number] 20mg Take 1 tablet by mouth at bedtime. [facility] norgestimat e-ethinyl estradioL (SPRINTEC) 0.25-35 mg-mcg per tablet 10-16 00:00: 00 Yes [id number] 1{tbl} Take 1 tablet by mouth daily. [facility] pravastatin 20 mg tablet 0 10-16 00:00: 00 Yes [id number] 20mg Take 1 tablet by mouth at bedtime. [facility] norgestimat e-ethinyl estradioL (SPRINTEC) 0.25-35 mg-mcg per tablet 10-16 00:00: 00 Yes [id number] 1{tbl} Take 1 tablet by mouth daily. [facility] pravastatin 20 mg tablet 2021-0 10-16 00:00: 00 Yes [id number] 20mg Take 1 tablet by mouth at bedtime. [facility] norgestimat e-ethinyl estradioL (SPRINTEC) 0.25-35 mg-mcg per tablet 10-16 00:00: 00 Yes [id number] 1{tbl} Take 1 tablet by mouth daily. [facility] pravastatin 20 mg tablet 10-16 00:00: 00 Yes [id number] 20mg Take 1 tablet by mouth at bedtime. [facility] norgestimat e-ethinyl estradioL (SPRINTEC) 0.25-35 mg-mcg per tablet 10-16 00:00: 00 Yes [id number] 1{tbl} Take 1 tablet by mouth daily. [facility] pravastatin 20 mg tablet 10-16 00:00: 00 Yes [id number] 20mg Take 1 tablet by mouth at bedtime. [facility] norgestimat e-ethinyl estradioL (SPRINTEC) 0.25-35 mg-mcg per tablet 10-16 00:00: 00 Yes [id number] 1{tbl} Take 1 tablet by mouth daily. [facility] pravastatin 20 mg tablet 10-16 00:00: 00 Yes [id number] 20mg Take 1 tablet by mouth at bedtime. [facility] norgestimat e-ethinyl estradioL (SPRINTEC) 0.25-35 mg-mcg per tablet 10-16 00:00: 00 Yes [id number] 1{tbl} Take 1 tablet by mouth daily. [facility] pravastatin 20 mg tablet 10-16 00:00: 00 Yes [id number] 20mg Take 1 tablet by mouth at bedtime. [facility] norgestimat e-ethinyl estradioL (SPRINTEC) 0.25-35 mg-mcg per tablet 10-16 00:00: 00 Yes [id number] 1{tbl} Take 1 tablet by mouth daily. [facility] pravastatin 20 mg tablet 10-16 00:00: 00 Yes [id number] 20mg Take 1 tablet by mouth at bedtime. [facility] norgestimat e-ethinyl estradioL (SPRINTEC) 0.25-35 mg-mcg per tablet 10-16 00:00: 00 Yes [id number] 1{tbl} Take 1 tablet by mouth daily. [facility] pravastatin 20 mg tablet 10-16 00:00: 00 Yes [id number] 20mg Take 1 tablet by mouth at bedtime. [facility] norgestimat e-ethinyl estradioL (SPRINTEC) 0.25-35 mg-mcg per tablet 10-16 00:00: 00 Yes [id number] 1{tbl} Take 1 tablet by mouth daily. [facility] pravastatin 20 mg tablet 10-16 00:00: 00 Yes [id number] 20mg Take 1 tablet by mouth at bedtime. [facility] norgestimat e-ethinyl estradioL (SPRINTEC) 0.25-35 mg-mcg per tablet 10-16 00:00: 00 Yes [id number] 1{tbl} Take 1 tablet by mouth daily. [facility] pravastatin 20 mg tablet 10-16 00:00: 00 Yes [id number] 20mg Take 1 tablet by mouth at bedtime. [facility] norgestimat e-ethinyl estradioL (SPRINTEC) 0.25-35 mg-mcg per tablet 10-16 00:00: 00 Yes [id number] 1{tbl} Take 1 tablet by mouth daily. [facility] pravastatin 20 mg tablet 10-16 00:00: 00 Yes [id number] 20mg Take 1 tablet by mouth at bedtime. [facility] norgestimat e-ethinyl estradioL (SPRINTEC) 0.25-35 mg-mcg per tablet 10-16 00:00: 00 Yes [id number] 1{tbl} Take 1 tablet by mouth daily. [facility] pravastatin 20 mg tablet 10-16 00:00: 00 Yes [id number] 20mg Take 1 tablet by mouth at bedtime. [facility] pravastatin 20 mg tablet 10-16 00:00: 00 Yes [id number] 20mg Take 1 tablet by mouth at bedtime. [facility] pravastatin 20 mg tablet 10-16 00:00: 00 Yes [id number] 20mg Take 1 tablet by mouth at bedtime. [facility] pravastatin 20 mg tablet 10-16 00:00: 00 Yes [id number] 20mg Take 1 tablet by mouth at bedtime. [facility] pravastatin 20 mg tablet 10-16 00:00: 00 Yes [id number] 20mg Take 1 tablet by mouth at bedtime. [facility] pravastatin 20 mg tablet 10-16 00:00: 00 Yes [id number] 20mg Take 1 tablet by mouth at bedtime. [facility] pravastatin 20 mg tablet 10-16 00:00: 00 Yes [id number] 20mg Take 1 tablet by mouth at bedtime. [facility] pravastatin 20 mg tablet 10-16 00:00: 00 08-23 00:00 :00 No [id number] 20mg Take 1 tablet by mouth at bedtime. [facility] norgestimat e-ethinyl estradioL (SPRINTEC) 0.25-35 mg-mcg per tablet 10-16 00:00: 00 08-07 00:00 :00 No [id number] 1{tbl} Take 1 tablet by mouth daily. [facility] cycloSPORIN E 25 mg capsule 08-20 00:00: 00 Yes [id number] 25mg Take 1 capsule by mouth every 12 (twelve) hours. [facility] predniSONE 10 mg tablet 08-20 00:00: 00 Yes Take 5 mg (one-half tablet daily for 2 weeks then 5 mg (1.2 tablet) every other day for 4 weeks, then discontinu e. [facility] cycloSPORIN E 25 mg capsule 08-20 00:00: 00 Yes [id number] 25mg Take 1 capsule by mouth every 12 (twelve) hours. [facility] predniSONE 10 mg tablet 2-0 08-20 00:00: 00 Yes Take 5 mg (one-half tablet daily for 2 weeks then 5 mg (1.2 tablet) every other day for 4 weeks, then discontinu e. [facility] cycloSPORIN E 25 mg capsule 2021-0 08-20 00:00: 00 Yes [id number] 25mg Take 1 capsule by mouth every 12 (twelve) hours. [facility] predniSONE 10 mg tablet 2021-0 08-20 00:00: 00 Yes Take 5 mg (one-half tablet daily for 2 weeks then 5 mg (1.2 tablet) every other day for 4 weeks, then discontinu e. [facility] cycloSPORIN E 25 mg capsule 2021-0 08-20 00:00: 00 Yes [id number] 25mg Take 1 capsule by mouth every 12 (twelve) hours. [facility] predniSONE 10 mg tablet 2021-0 08-20 00:00: 00 Yes Take 5 mg (one-half tablet daily for 2 weeks then 5 mg (1.2 tablet) every other day for 4 weeks, then discontinu e. [facility] cycloSPORIN E 25 mg capsule 2021-0 08-20 00:00: 00 Yes [id number] 25mg Take 1 capsule by mouth every 12 (twelve) hours. [facility] predniSONE 10 mg tablet 2021-0 08-20 00:00: 00 Yes Take 5 mg (one-half tablet daily for 2 weeks then 5 mg (1.2 tablet) every other day for 4 weeks, then discontinu e. [facility] cycloSPORIN E 25 mg capsule 2021-0 08-20 00:00: 00 Yes [id number] 25mg Take 1 capsule by mouth every 12 (twelve) hours. [facility] predniSONE 10 mg tablet 2-0 08-20 00:00: 00 Yes Take 5 mg (one-half tablet daily for 2 weeks then 5 mg (1.2 tablet) every other day for 4 weeks, then discontinu e. [facility] cycloSPORIN E 25 mg capsule 2021-0 08-20 00:00: 00 Yes [id number] 25mg Take 1 capsule by mouth every 12 (twelve) hours. [facility] predniSONE 10 mg tablet 2021-0 08-20 00:00: 00 Yes Take 5 mg (one-half tablet daily for 2 weeks then 5 mg (1.2 tablet) every other day for 4 weeks, then discontinu e. [facility] cycloSPORIN E 25 mg capsule 08-20 00:00: 00 Yes [id number] 25mg Take 1 capsule by mouth every 12 (twelve) hours. [facility] predniSONE 10 mg tablet 2021-0 08-20 00:00: 00 Yes Take 5 mg (one-half tablet daily for 2 weeks then 5 mg (1.2 tablet) every other day for 4 weeks, then discontinu e. [facility] cycloSPORIN E 25 mg capsule 2021-08-20 00:00: 00 Yes [id number] 25mg Take 1 capsule by mouth every 12 (twelve) hours. [facility] predniSONE 10 mg tablet 2021-0 08-20 00:00: 00 Yes Take 5 mg (one-half tablet daily for 2 weeks then 5 mg (1.2 tablet) every other day for 4 weeks, then discontinu e. [facility] cycloSPORIN E 25 mg capsule 08-20 00:00: 00 Yes [id number] 25mg Take 1 capsule by mouth every 12 (twelve) hours. [facility] predniSONE 10 mg tablet 2021-0 08-20 00:00: 00 Yes Take 5 mg (one-half tablet daily for 2 weeks then 5 mg (1.2 tablet) every other day for 4 weeks, then discontinu e. [facility] cycloSPORIN E 25 mg capsule 2021-0 08-20 00:00: 00 Yes [id number] 25mg Take 1 capsule by mouth every 12 (twelve) hours. [facility] predniSONE 10 mg tablet 2021-0 08-20 00:00: 00 Yes Take 5 mg (one-half tablet daily for 2 weeks then 5 mg (1.2 tablet) every other day for 4 weeks, then discontinu e. [facility] cycloSPORIN E 25 mg capsule 2021-0 08-20 00:00: 00 Yes [id number] 25mg Take 1 capsule by mouth every 12 (twelve) hours. [facility] predniSONE 10 mg tablet 0 08-20 00:00: 00 Yes Take 5 mg (one-half tablet daily for 2 weeks then 5 mg (1.2 tablet) every other day for 4 weeks, then discontinu e. [facility] cycloSPORIN E 25 mg capsule 08-20 00:00: 00 Yes [id number] 25mg Take 1 capsule by mouth every 12 (twelve) hours. [facility] predniSONE 10 mg tablet 08-20 00:00: 00 Yes Take 5 mg (one-half tablet daily for 2 weeks then 5 mg (1.2 tablet) every other day for 4 weeks, then discontinu e. [facility] cycloSPORIN E 25 mg capsule 08-20 00:00: 00 Yes [id number] 25mg Take 1 capsule by mouth every 12 (twelve) hours. [facility] predniSONE 10 mg tablet 0 08-20 00:00: 00 Yes Take 5 mg (one-half tablet daily for 2 weeks then 5 mg (1.2 tablet) every other day for 4 weeks, then discontinu e. [facility] predniSONE 10 mg tablet 2021-08-20 00:00: 00 Yes Take 5 mg (one-half tablet daily for 2 weeks then 5 mg (1.2 tablet) every other day for 4 weeks, then discontinu e. [facility] predniSONE 10 mg tablet 2021-0 08-20 00:00: 00 Yes Take 5 mg (one-half tablet daily for 2 weeks then 5 mg (1.2 tablet) every other day for 4 weeks, then discontinu e. [facility] predniSONE 10 mg tablet 2021-0 08-20 00:00: 00 Yes Take 5 mg (one-half tablet daily for 2 weeks then 5 mg (1.2 tablet) every other day for 4 weeks, then discontinu e. [facility] predniSONE 10 mg tablet 2021-0 08-20 00:00: 00 Yes Take 5 mg (one-half tablet daily for 2 weeks then 5 mg (1.2 tablet) every other day for 4 weeks, then discontinu e. [facility] predniSONE 10 mg tablet 0 08-20 00:00: 00 Yes Take 5 mg (one-half tablet daily for 2 weeks then 5 mg (1.2 tablet) every other day for 4 weeks, then discontinu e. [facility] predniSONE 10 mg tablet 08-20 00:00: 00 Yes Take 5 mg (one-half tablet daily for 2 weeks then 5 mg (1.2 tablet) every other day for 4 weeks, then discontinu e. [facility] predniSONE 10 mg tablet 08-20 00:00: 00 Yes Take 5 mg (one-half tablet daily for 2 weeks then 5 mg (1.2 tablet) every other day for 4 weeks, then discontinu e. [facility] predniSONE 10 mg tablet 08-20 00:00: 00 Yes Take 5 mg (one-half tablet daily for 2 weeks then 5 mg (1.2 tablet) every other day for 4 weeks, then discontinu e. [facility] predniSONE 10 mg tablet 08-20 00:00: 00 Yes Take 5 mg (one-half tablet daily for 2 weeks then 5 mg (1.2 tablet) every other day for 4 weeks, then discontinu e. [facility] predniSONE 10 mg tablet 08-20 00:00: 00 Yes Take 5 mg (one-half tablet daily for 2 weeks then 5 mg (1.2 tablet) every other day for 4 weeks, then discontinu e. [facility] predniSONE 10 mg tablet 08-20 00:00: 00 Yes Take 5 mg (one-half tablet daily for 2 weeks then 5 mg (1.2 tablet) every other day for 4 weeks, then discontinu e. [facility] predniSONE 10 mg tablet 08-20 00:00: 00 Yes Take 5 mg (one-half tablet daily for 2 weeks then 5 mg (1.2 tablet) every other day for 4 weeks, then discontinu e. [facility] predniSONE 10 mg tablet 08-20 00:00: 00 Yes Take 5 mg (one-half tablet daily for 2 weeks then 5 mg (1.2 tablet) every other day for 4 weeks, then discontinu e. [facility] predniSONE 10 mg tablet 08-20 00:00: 00 Yes Take 5 mg (one-half tablet daily for 2 weeks then 5 mg (1.2 tablet) every other day for 4 weeks, then discontinu e. [facility] predniSONE 10 mg tablet 08-20 00:00: 00 Yes Take 5 mg (one-half tablet daily for 2 weeks then 5 mg (1.2 tablet) every other day for 4 weeks, then discontinu e. [facility] predniSONE 10 mg tablet 08-20 00:00: 00 Yes Take 5 mg (one-half tablet daily for 2 weeks then 5 mg (1.2 tablet) every other day for 4 weeks, then discontinu e. [facility] predniSONE 10 mg tablet 08-20 00:00: 00 Yes Take 5 mg (one-half tablet daily for 2 weeks then 5 mg (1.2 tablet) every other day for 4 weeks, then discontinu e. [facility] predniSONE 10 mg tablet 08-20 00:00: 00 Yes Take 5 mg (one-half tablet daily for 2 weeks then 5 mg (1.2 tablet) every other day for 4 weeks, then discontinu e. [facility] predniSONE 10 mg tablet 08-20 00:00: 00 Yes Take 5 mg (one-half tablet daily for 2 weeks then 5 mg (1.2 tablet) every other day for 4 weeks, then discontinu e. [facility] predniSONE 10 mg tablet 08-20 00:00: 00 Yes Take 5 mg (one-half tablet daily for 2 weeks then 5 mg (1.2 tablet) every other day for 4 weeks, then discontinu e. [facility] predniSONE 10 mg tablet 08-20 00:00: 00 Yes Take 5 mg (one-half tablet daily for 2 weeks then 5 mg (1.2 tablet) every other day for 4 weeks, then discontinu e. [facility] predniSONE 10 mg tablet 08-20 00:00: 00 Yes Take 5 mg (one-half tablet daily for 2 weeks then 5 mg (1.2 tablet) every other day for 4 weeks, then discontinu e. [facility] predniSONE 10 mg tablet 2021-08-20 00:00: 00 06-04 00:00 :00 No Take 5 mg (one-half tablet daily for 2 weeks then 5 mg (1.2 tablet) every other day for 4 weeks, then discontinu e. [facility] cycloSPORIN E 25 mg capsule 08-20 00:00: 00 02-11 00:00 :00 No [id number] 25mg Take 1 capsule by mouth every 12 (twelve) hours. [facility] cycloSPORIN E 25 mg capsule 08-20 00:00: 00 02-11 00:00 :00 No [id number] 25mg Take 1 capsule by mouth every 12 (twelve) hours. [facility] guanFACINE 1 mg tablet 2021-0 07-21 00:00: 00 Yes [id number] 1mg Take 1 tablet by mouth at bedtime. [facility] guanFACINE 1 mg tablet 2021-0 07-21 00:00: 00 Yes [id number] 1mg Take 1 tablet by mouth at bedtime. [facility] guanFACINE 1 mg tablet 2021-0 07-21 00:00: 00 Yes [id number] 1mg Take 1 tablet by mouth at bedtime. [facility] guanFACINE 1 mg tablet 2021-0 07-21 00:00: 00 Yes [id number] 1mg Take 1 tablet by mouth at bedtime. [facility] guanFACINE 1 mg tablet 2021-0 22 00:00: 00 Yes [id number] 1mg Take 1 tablet by mouth at bedtime. [facility] guanFACINE 1 mg tablet 2021-0 -22 00:00: 00 Yes [id number] 1mg Take 1 tablet by mouth at bedtime. [facility] guanFACINE 1 mg tablet 2-0 -22 00:00: 00 Yes [id number] 1mg Take 1 tablet by mouth at bedtime. [facility] guanFACINE 1 mg tablet 0 07-21 00:00: 00 Yes [id number] 1mg Take 1 tablet by mouth at bedtime. [facility] guanFACINE 1 mg tablet 0 07-21 00:00: 00 Yes [id number] 1mg Take 1 tablet by mouth at bedtime. [facility] guanFACINE 1 mg tablet 0 07-21 00:00: 00 Yes [id number] 1mg Take 1 tablet by mouth at bedtime. [facility] guanFACINE 1 mg tablet 0 07-21 00:00: 00 Yes [id number] 1mg Take 1 tablet by mouth at bedtime. [facility] guanFACINE 1 mg tablet 0 07-21 00:00: 00 12-28 00:00 :00 No [id number] 1mg Take 1 tablet by mouth at bedtime. [facility] PREDNISONE 10 mg tablet 07-20 00:00: 00 08-20 00:00 :00 No [id number] TAKE 1 TABLET BY MOUTH EVERY DAY [facility] MYCOPHENOLA TE SODIUM 360 mg EC tablet 06-30 00:00: 00 Yes [id number] TAKE 1 TABLET BY MOUTH EVERY 12 HOURS [facility] MYCOPHENOLA TE SODIUM 360 mg EC tablet 06-30 00:00: 00 Yes [id number] TAKE 1 TABLET BY MOUTH EVERY 12 HOURS [facility] MYCOPHENOLA TE SODIUM 360 mg EC tablet 0 06-30 00:00: 00 Yes [id number] TAKE 1 TABLET BY MOUTH EVERY 12 HOURS [facility] MYCOPHENOLA TE SODIUM 360 mg EC tablet 0 06-30 00:00: 00 Yes [id number] TAKE 1 TABLET BY MOUTH EVERY 12 HOURS [facility] MYCOPHENOLA TE SODIUM 360 mg EC tablet 0 06-30 00:00: 00 Yes [id number] TAKE 1 TABLET BY MOUTH EVERY 12 HOURS [facility] MYCOPHENOLA TE SODIUM 360 mg EC tablet 0 06-30 00:00: 00 Yes [id number] TAKE 1 TABLET BY MOUTH EVERY 12 HOURS [facility] MYCOPHENOLA TE SODIUM 360 mg EC tablet 06-30 00:00: 00 Yes [id number] TAKE 1 TABLET BY MOUTH EVERY 12 HOURS [facility] MYCOPHENOLA TE SODIUM 360 mg EC tablet 06-30 00:00: 00 Yes [id number] TAKE 1 TABLET BY MOUTH EVERY 12 HOURS [facility] MYCOPHENOLA TE SODIUM 360 mg EC tablet 06-30 00:00: 00 Yes [id number] TAKE 1 TABLET BY MOUTH EVERY 12 HOURS [facility] MYCOPHENOLA TE SODIUM 360 mg EC tablet 06-30 00:00: 00 Yes [id number] TAKE 1 TABLET BY MOUTH EVERY 12 HOURS [facility] MYCOPHENOLA TE SODIUM 360 mg EC tablet 06-30 00:00: 00 Yes [id number] TAKE 1 TABLET BY MOUTH EVERY 12 HOURS [facility] MYCOPHENOLA TE SODIUM 360 mg EC tablet 06-30 00:00: 00 Yes [id number] TAKE 1 TABLET BY MOUTH EVERY 12 HOURS [facility] MYCOPHENOLA TE SODIUM 360 mg EC tablet 06-30 00:00: 00 Yes [id number] TAKE 1 TABLET BY MOUTH EVERY 12 HOURS [facility] MYCOPHENOLA TE SODIUM 360 mg EC tablet 06-30 00:00: 00 Yes [id number] TAKE 1 TABLET BY MOUTH EVERY 12 HOURS [facility] MYCOPHENOLA TE SODIUM 360 mg EC tablet 06-30 00:00: 00 Yes [id number] TAKE 1 TABLET BY MOUTH EVERY 12 HOURS [facility] MYCOPHENOLA TE SODIUM 360 mg EC tablet 06-30 00:00: 00 Yes [id number] TAKE 1 TABLET BY MOUTH EVERY 12 HOURS [facility] MYCOPHENOLA TE SODIUM 360 mg EC tablet 06-30 00:00: 00 Yes [id number] TAKE 1 TABLET BY MOUTH EVERY 12 HOURS [facility] MYCOPHENOLA TE SODIUM 360 mg EC tablet 06-30 00:00: 00 Yes [id number] TAKE 1 TABLET BY MOUTH EVERY 12 HOURS [facility] MYCOPHENOLA TE SODIUM 360 mg EC tablet 0 06-30 00:00: 00 Yes [id number] TAKE 1 TABLET BY MOUTH EVERY 12 [facility]RS [facility] mg EC tablet 0 06-30 00:00: 00 Yes [id number] TAKE 1 TABLET BY MOUTH EVERY 12 HOURS [facility] SODIUM 360 mg EC tablet 0 06-30 00:00: 00 Yes [id number] TAKE 1 TABLET BY MOUTH EVERY 12 HOURS [facility] MYCOPHENOLA TE SODIUM 360 mg EC tablet 0 06-30 00:00: 00 Yes [id number] TAKE 1 TABLET BY MOUTH EVERY 12 HOURS [facility] MYCOPHENOLA TE SODIUM 360 mg EC tablet 06-30 00:00: 00 Yes [id number] TAKE 1 TABLET BY MOUTH EVERY 12 HOURS [facility] MYCOPHENOLA TE SODIUM 360 mg EC tablet 06-30 00:00: 00 Yes [id number] TAKE 1 TABLET BY MOUTH EVERY 12 HOURS [facility] MYCOPHENOLA TE SODIUM 360 mg EC tablet 06-30 00:00: 00 Yes [id number] TAKE 1 TABLET BY MOUTH EVERY 12 HOURS [facility] MYCOPHENOLA TE SODIUM 360 mg EC tablet 06-30 00:00: 00 04-27 00:00 :00 No [id number] TAKE 1 TABLET BY MOUTH EVERY 12 HOURS [facility] diltiazem XR 240 mg 24 hr capsule 2021-0 18 00:00: 00 Yes [id number] 240mg Take 1 capsule by mouth 2 (two) times daily. [facility] diltiazem XR 240 mg 24 hr capsule 2021-0 -18 00:00: 00 Yes [id number] 240mg Take 1 capsule by mouth 2 (two) times daily. [facility] diltiazem XR 240 mg 24 hr capsule 2021-0 2-18 00:00: 00 Yes [id number] 240mg Take 1 capsule by mouth 2 (two) times daily. [facility] diltiazem XR 240 mg 24 hr capsule 2021-0 2-18 00:00: 00 Yes [id number] 240mg Take 1 capsule by mouth 2 (two) times daily. [facility] diltiazem XR 240 mg 24 hr capsule 2021-0 2-18 00:00: 00 Yes [id number] 240mg Take 1 capsule by mouth 2 (two) times daily. [facility] diltiazem XR 240 mg 24 hr capsule 2021-0 2-18 00:00: 00 Yes [id number] 240mg Take 1 capsule by mouth 2 (two) times daily. [facility] diltiazem XR 240 mg 24 hr capsule 2-0 2-18 00:00: 00 Yes [id number] 240mg Take 1 capsule by mouth 2 (two) times daily. [facility] diltiazem XR 240 mg 24 hr capsule 2021-0 2-18 00:00: 00 Yes [id number] 240mg Take 1 capsule by mouth 2 (two) times daily. [facility] diltiazem XR 240 mg 24 hr capsule 2021-0 18 00:00: 00 12-10 00:00 :00 No [id number] 240mg Take 1 capsule by mouth 2 (two) times daily. [facility] ARTIFICIAL TEARS,DEXT7 0-HYPRO, OPHTHALMIC 05-28 19:38: [address] in each eye. [facility] aspirin 81 mg Cap 05-28 19:38: 10 Yes Take by mouth. [facility] ARTIFICIAL TEARS,DEXT7 0-HYPRO, OPHTHALMIC 05-28 19:38: [address] in each eye. [facility] aspirin 81 mg Cap 05-28 19:38: 10 Yes Take by mouth. [facility] ARTIFICIAL TEARS,DEXT7 0-HYPRO, OPHTHALMIC 05-28 19:38: [address] in each eye. [facility] aspirin 81 mg Cap 05-28 19:38: 10 Yes Take by mouth. [facility] ARTIFICIAL TEARS,DEXT7 0-HYPRO, OPHTHALMIC 05-28 19:38: [address] in each eye. [facility] aspirin 81 mg Cap 05-28 19:38: 10 Yes Take by mouth. [facility] ARTIFICIAL TEARS,DEXT7 0-HYPRO, OPHTHALMIC 2021-0 05-28 19:38: [address] in each eye. [facility] aspirin 81 mg Cap 05-28 19:38: 10 Yes Take by mouth. [facility] ARTIFICIAL TEARS,DEXT7 0-HYPRO, OPHTHALMIC 05-28 19:38: [address] in each eye. [facility] aspirin 81 mg Cap 0 05-28 19:38: 10 Yes Take by mouth. [facility] ARTIFICIAL TEARS,DEXT7 0-HYPRO, OPHTHALMIC 05-28 19:38: [address] in each eye. [facility] aspirin 81 mg Cap 05-28 19:38: 10 Yes Take by mouth. [facility] ARTIFICIAL TEARS,DEXT7 0-HYPRO, OPHTHALMIC 05-28 19:38: [address] in each eye. [facility] aspirin 81 mg Cap 0 05-28 19:38: 10 Yes Take by mouth. [facility]-HYPRO, OPHTHALMIC 05-28 19:38: [address] in each eye. [facility] aspirin 81 mg Cap 05-28 19:38: 10 Yes Take by mouth. [facility] ARTIFICIAL TEARS,DEXT7 0-HYPRO, OPHTHALMIC 05-28 19:38: [address] in each eye. [facility] aspirin 81 mg Cap 0 05-28 19:38: 10 Yes Take by mouth. [facility] ARTIFICIAL TEARS,DEXT7 0-HYPRO, OPHTHALMIC 2021-05-28 19:38: [address] in each eye. [facility] aspirin 81 mg Cap 0 05-28 19:38: 10 Yes Take by mouth. [facility] 0-HYPRO, OPHTHALMIC 2021-0 05-28 19:38: [address] in each eye. [facility] aspirin 81 mg Cap 0 05-28 19:38: 10 Yes Take by mouth. [facility] ARTIFICIAL TEARS,DEXT7 0-HYPRO, OPHTHALMIC 05-28 19:38: [address] in each eye. [facility] aspirin 81 mg Cap 05-28 19:38: 10 Yes Take by mouth. [facility] ARTIFICIAL TEARS,DEXT7 0-HYPRO, OPHTHALMIC 05-28 19:38: [address] in each eye. [facility] aspirin 81 mg Cap 0 05-28 19:38: 10 Yes Take by mouth. [facility] ARTIFICIAL TEARS,DEXT7 0-HYPRO, OPHTHALMIC 05-28 19:38: [address] in each eye. [facility] aspirin 81 mg Cap 05-28 19:38: 10 Yes Take by mouth. [facility] ARTIFICIAL TEARS,DEXT7 0-HYPRO, OPHTHALMIC 05-28 19:38: [address] in each eye. [facility] aspirin 81 mg Cap 0 05-28 19:38: 10 Yes Take by mouth. [facility] ARTIFICIAL TEARS,DEXT7 0-HYPRO, OPHTHALMIC 05-28 19:38: [address] in each eye. [facility] aspirin 81 mg Cap 0 05-28 19:38: 10 Yes Take by mouth. [facility] ARTIFICIAL TEARS,DEXT7 0-HYPRO, OPHTHALMIC 2021-0 05-28 19:38: [address] in each eye. [facility] aspirin 81 mg Cap 0 05-28 19:38: 10 Yes Take by mouth. [facility] ARTIFICIAL TEARS,DEXT7 0-HYPRO, OPHTHALMIC 05-28 19:38: [address] in each eye. [facility] aspirin 81 mg Cap 0 05-28 19:38: 10 Yes Take by mouth. [facility] ARTIFICIAL TEARS,DEXT7 0-HYPRO, OPHTHALMIC 05-28 19:38: [address] in each eye. [facility] aspirin 81 mg Cap 05-28 19:38: 10 Yes Take by mouth. [facility] ARTIFICIAL TEARS,DEXT7 0-HYPRO, OPHTHALMIC 05-28 19:38: [address] in each eye. [facility] aspirin 81 mg Cap 05-28 19:38: 10 Yes Take by mouth. [facility] ARTIFICIAL TEARS,DEXT7 0-HYPRO, OPHTHALMIC 05-28 19:38: [address] in each eye. [facility] aspirin 81 mg Cap 05-28 19:38: 10 Yes Take by mouth. [facility] ARTIFICIAL TEARS,DEXT7 0-HYPRO, OPHTHALMIC 05-28 19:38: [address] in each eye. [facility] aspirin 81 mg Cap 05-28 19:38: 10 Yes Take by mouth. [facility] ARTIFICIAL TEARS,DEXT7 0-HYPRO, OPHTHALMIC 05-28 19:38: [address] in each eye. [facility] aspirin 81 mg Cap 05-28 19:38: 10 Yes Take by mouth. [facility] ARTIFICIAL TEARS,DEXT7 0-HYPRO, OPHTHALMIC 05-28 19:38: [address] in each eye. [facility] [facility] mg Cap 05-28 19:38: 10 Yes Take by mouth. [facility] ARTIFICIAL TEARS,DEXT7 0-HYPRO, OPHTHALMIC 05-28 19:38: [address] in each eye. [facility] aspirin 81 mg Cap 0 05-28 19:38: 10 Yes Take by mouth. [facility] ARTIFICIAL TEARS,DEXT7 0-HYPRO, OPHTHALMIC 05-28 19:38: [address] in each eye. [facility] aspirin 81 mg Cap 0 05-28 19:38: 10 Yes Take by mouth. [facility] ARTIFICIAL TEARS,DEXT7 0-HYPRO, OPHTHALMIC 05-28 19:38: [address] in each eye. [facility] aspirin 81 mg Cap 05-28 19:38: 10 Yes Take by mouth. [facility] ARTIFICIAL TEARS,DEXT7 0-HYPRO, OPHTHALMIC 05-28 19:38: [address] in each eye. [facility] aspirin 81 mg Cap 05-28 19:38: 10 Yes Take by mouth. [facility] SPRINTEC 0.25-35 mg-mcg per tablet 11-10 00:00: 00 Yes [id number] TAKE 1 TABLET BY MOUTH EVERY DAY [facility] SPRINTEC 0.25-35 mg-mcg per tablet 11-10 00:00: 00 10-15 00:00 :00 No [id number] TAKE 1 TABLET BY MOUTH EVERY DAY [facility] PRAVASTATIN 20 mg tablet 10-03 00:00: 00 Yes [id number] TAKE 1 TABLET BY MOUTH EVERYDAY AT BEDTIME [facility] PRAVASTATIN 20 mg tablet 10-03 00:00: 00 10-15 00:00 :00 No [id number] TAKE 1 TABLET BY MOUTH EVERYDAY AT BEDTIME [facility] ranitidine 150 mg tablet 12-13 00:00: 00 Yes 150mg Take 1 tablet by mouth every morning. [facility] ranitidine 150 mg tablet 12-13 00:00: 00 Yes 150mg Take 1 tablet by mouth every morning. [facility] ranitidine 150 mg tablet 12-13 00:00: 00 Yes 150mg Take 1 tablet by mouth every morning. [facility] ranitidine 150 mg tablet 12-13 00:00: 00 Yes 150mg Take 1 tablet by mouth every morning. [facility] ranitidine 150 mg tablet 12-13 00:00: 00 Yes 150mg Take 1 tablet by mouth every morning. [facility] ranitidine 150 mg tablet 12-13 00:00: 00 Yes 150mg Take 1 tablet by mouth every morning. [facility] ranitidine 150 mg tablet 12-13 00:00: 00 Yes 150mg Take 1 tablet by mouth every morning. [facility] ranitidine 150 mg tablet 12-13 00:00: 00 Yes 150mg Take 1 tablet by mouth every morning. [facility] ranitidine 150 mg tablet 12-13 00:00: 00 Yes 150mg Take 1 tablet by mouth every morning. [facility] ranitidine 150 mg tablet 12-13 00:00: 00 Yes 150mg Take 1 tablet by mouth every morning. [facility] ranitidine 150 mg tablet 12-13 00:00: 00 Yes 150mg Take 1 tablet by mouth every morning. [facility] ranitidine 150 mg tablet 12-13 00:00: 00 Yes 150mg Take 1 tablet by mouth every morning. [facility] ranitidine 150 mg tablet 12-13 00:00: 00 Yes 150mg Take 1 tablet by mouth every morning. [facility] ranitidine 150 mg tablet 12-13 00:00: 00 Yes 150mg Take 1 tablet by mouth every morning. [facility] ranitidine 150 mg tablet 12-13 00:00: 00 Yes 150mg Take 1 tablet by mouth every morning. [facility] ranitidine 150 mg tablet 12-13 00:00: 00 Yes 150mg Take 1 tablet by mouth every morning. [facility] ranitidine 150 mg tablet 12-13 00:00: 00 Yes 150mg Take 1 tablet by mouth every morning. [facility] ranitidine 150 mg tablet 12-13 00:00: 00 Yes 150mg Take 1 tablet by mouth every morning. [facility] ranitidine 150 mg tablet 12-13 00:00: 00 Yes 150mg Take 1 tablet by mouth every morning. [facility] ranitidine 150 mg tablet 12-13 00:00: 00 Yes 150mg Take 1 tablet by mouth every morning. [facility] ranitidine 150 mg tablet 12-13 00:00: 00 Yes 150mg Take 1 tablet by mouth every morning. [facility] ranitidine 150 mg tablet 12-13 00:00: 00 Yes 150mg Take 1 tablet by mouth every morning. [facility] ranitidine 150 mg tablet 12-13 00:00: 00 Yes 150mg Take 1 tablet by mouth every morning. [facility] ranitidine 150 mg tablet 12-13 00:00: 00 Yes 150mg Take 1 tablet by mouth every morning. [facility] ranitidine 150 mg tablet 12-13 00:00: 00 Yes 150mg Take 1 tablet by mouth every morning. [facility] ranitidine 150 mg tablet 12-13 00:00: 00 Yes 150mg Take 1 tablet by mouth every morning. [facility] ranitidine 150 mg tablet 12-13 00:00: 00 Yes 150mg Take 1 tablet by mouth every morning. [facility] ranitidine 150 mg tablet 12-13 00:00: 00 Yes 150mg Take 1 tablet by mouth every morning. [facility] ranitidine 150 mg tablet 12-13 00:00: 00 Yes 150mg Take 1 tablet by mouth every morning. [facility] ranitidine 150 mg tablet 12-13 00:00: 00 Yes 150mg Take 1 tablet by mouth every morning. [facility] ranitidine 150 mg tablet 12-13 00:00: 00 Yes 150mg Take 1 tablet by mouth every morning. [facility] ranitidine 150 mg tablet 12-13 00:00: 00 Yes 150mg Take 1 tablet by mouth every morning. [facility] ranitidine 150 mg tablet 12-13 00:00: 00 Yes 150mg Take 1 tablet by mouth every morning. [facility] ranitidine 150 mg tablet 12-13 00:00: 00 Yes 150mg Take 1 tablet by mouth every morning. [facility] ranitidine 150 mg tablet 12-13 00:00: 00 Yes 150mg Take 1 tablet by mouth every morning. [facility] ranitidine 150 mg tablet 12-13 00:00: 00 Yes 150mg Take 150 mg by mouth every morning. [facility] ranitidine 150 mg tablet 12-13 00:00: 00 Yes 150mg Take 150 mg by mouth every morning. [facility] ranitidine 150 mg tablet 12-13 00:00: 00 Yes 150mg Take 150 mg by mouth every morning. [facility] ranitidine 150 mg tablet 12-13 00:00: 00 Yes 150mg Take 150 mg by mouth every morning. [facility] ranitidine 150 mg tablet 12-13 00:00: 00 Yes 150mg Take 150 mg by mouth every morning. [facility] ranitidine 150 mg tablet 12-13 00:00: 00 Yes 150mg Take 150 mg by mouth every morning. [facility] ranitidine 150 mg tablet 12-13 00:00: 00 Yes 150mg Take 150 mg by mouth every morning. [facility] ranitidine 150 mg tablet 12-13 00:00: 00 Yes 150mg Take 150 mg by mouth every morning. [facility] ranitidine 150 mg tablet 12-13 00:00: 00 Yes 150mg Take 150 mg by mouth every morning. [facility] ranitidine 150 mg tablet 12-13 00:00: 00 Yes 150mg Take 150 mg by mouth every morning. [facility] ranitidine 150 mg tablet 12-13 00:00: 00 Yes 150mg Take 150 mg by mouth every morning. [facility] ranitidine 150 mg tablet 12-13 00:00: 00 Yes 150mg Take 150 mg by mouth every morning. [facility] ranitidine 150 mg tablet 12-13 00:00: 00 Yes 150mg Take 150 mg by mouth every morning. [facility] ranitidine 150 mg tablet 12-13 00:00: 00 Yes 150mg Take 150 mg by mouth every morning. [facility] ranitidine 150 mg tablet 12-13 00:00: 00 Yes 150mg Take 150 mg by mouth every morning. [facility] ranitidine 150 mg tablet 12-13 00:00: 00 Yes 150mg Take 150 mg by mouth every morning. [facility] ranitidine 150 mg tablet 12-13 00:00: 00 Yes 150mg Take 150 mg by mouth every morning. [facility] ranitidine 150 mg tablet 12-13 00:00: 00 Yes 150mg Take 150 mg by mouth every morning. [facility] ranitidine 150 mg tablet 12-13 00:00: 00 Yes 150mg Take 150 mg by mouth every morning. [facility] ranitidine 150 mg tablet 12-13 00:00: 00 Yes 150mg Take 150 mg by mouth every morning. [facility] ranitidine 150 mg tablet 12-13 00:00: 00 Yes 150mg Take 150 mg by mouth every morning. [facility] ranitidine 150 mg tablet 12-13 00:00: 00 Yes 150mg Take 150 mg by mouth every morning. [facility] ranitidine 150 mg tablet 12-13 00:00: 00 Yes 150mg Take 150 mg by mouth every morning. [facility] ranitidine 150 mg tablet 12-13 00:00: 00 Yes 150mg Take 150 mg by mouth every morning. [facility] ranitidine 150 mg tablet 12-13 00:00: 00 Yes 150mg Take 150 mg by mouth every morning. [facility] ranitidine 150 mg tablet 12-13 00:00: 00 Yes 150mg Take 150 mg by mouth every morning. [facility] ranitidine 150 mg tablet 12-13 00:00: 00 Yes 150mg Take 150 mg by mouth every morning. [facility] ranitidine 150 mg tablet 12-13 00:00: 00 Yes 150mg Take 150 mg by mouth every morning. [facility] ranitidine 150 mg tablet 12-13 00:00: 00 Yes 150mg Take 150 mg by mouth every morning. [facility] ranitidine 150 mg tablet 12-13 00:00: 00 Yes 150mg Take 150 mg by mouth every morning. [facility] ranitidine 150 mg tablet 12-13 00:00: 00 Yes 150mg Take 150 mg by mouth every morning. [facility] ranitidine 150 mg tablet 12-13 00:00: 00 Yes 150mg Take 150 mg by mouth every morning. [facility] ranitidine 150 mg tablet 12-13 00:00: 00 Yes 150mg Take 150 mg by mouth every morning. [facility] ranitidine 150 mg tablet 12-13 00:00: 00 Yes 150mg Take 150 mg by mouth every morning. [facility] ranitidine 150 mg tablet 12-13 00:00: 00 Yes 150mg Take 150 mg by mouth every morning. [facility] ranitidine 150 mg tablet 12-13 00:00: 00 Yes 150mg Take 150 mg by mouth every morning. [facility] ranitidine 150 mg tablet 12-13 00:00: 00 Yes 150mg Take 150 mg by mouth every morning. [facility] ranitidine 150 mg tablet 12-13 00:00: 00 Yes 150mg Take 150 mg by mouth every morning. [facility] ranitidine 150 mg tablet 12-13 00:00: 00 Yes 150mg Take 150 mg by mouth every morning. [facility] ranitidine 150 mg tablet 12-13 00:00: 00 Yes 150mg Take 150 mg by mouth every morning. [facility] ranitidine 150 mg tablet 12-13 00:00: 00 Yes 150mg Take 150 mg by mouth every morning. [facility] ranitidine 150 mg tablet 12-13 00:00: 00 Yes 150mg Take 150 mg by mouth every morning. [facility] ranitidine 150 mg tablet 12-13 00:00: 00 Yes 150mg Take 150 mg by mouth every morning. [facility] ranitidine 150 mg tablet 12-13 00:00: 00 Yes 150mg Take 150 mg by mouth every morning. [facility] ranitidine 150 mg tablet 12-13 00:00: 00 Yes 150mg Take 150 mg by mouth every morning. [facility] ranitidine 150 mg tablet 12-13 00:00: 00 Yes 150mg Take 150 mg by mouth every morning. [facility] ranitidine 150 mg tablet 12-13 00:00: 00 Yes 150mg Take 150 mg by mouth every morning. [facility] ranitidine 150 mg tablet 12-13 00:00: 00 Yes 150mg Take 150 mg by mouth every morning. [facility] ranitidine 150 mg tablet 12-13 00:00: 00 Yes 150mg Take 150 mg by mouth every morning. [facility] ranitidine 150 mg tablet 12-13 00:00: 00 Yes 150mg Take 150 mg by mouth every morning. [facility] ranitidine 150 mg tablet 12-13 00:00: 00 Yes 150mg Take 150 mg by mouth every morning. [facility] ranitidine 150 mg tablet 12-13 00:00: 00 Yes 150mg Take 150 mg by mouth every morning. [facility] ranitidine 150 mg tablet 12-13 00:00: 00 Yes 150mg Take 150 mg by mouth every morning. [facility] ranitidine 150 mg tablet 12-13 00:00: 00 Yes 150mg Take 150 mg by mouth every morning. [facility] ranitidine 150 mg tablet 12-13 00:00: 00 Yes 150mg Take 150 mg by mouth every morning. [facility] ranitidine 150 mg tablet 12-13 00:00: 00 Yes 150mg Take 150 mg by mouth every morning. [facility] ranitidine 150 mg tablet 12-13 00:00: 00 Yes 150mg Take 150 mg by mouth every morning. [facility] ranitidine 150 mg tablet 12-13 00:00: 00 Yes 150mg Take 150 mg by mouth every morning. [facility] ranitidine 150 mg tablet 12-13 00:00: 00 Yes 150mg Take 150 mg by mouth every morning. [facility] ranitidine 150 mg tablet 12-13 00:00: 00 Yes 150mg Take 150 mg by mouth every morning. [facility] ranitidine 150 mg tablet 12-13 00:00: 00 Yes 150mg Take 150 mg by mouth every morning. [facility] ranitidine 150 mg tablet 12-13 00:00: 00 Yes 150mg Take 150 mg by mouth every morning. [facility] ranitidine 150 mg tablet 12-13 00:00: 00 Yes 150mg Take 150 mg by mouth every morning. [facility] ranitidine 150 mg tablet 12-13 00:00: 00 Yes 150mg Take 150 mg by mouth every morning. [facility] ranitidine 150 mg tablet 12-13 00:00: 00 Yes 150mg Take 150 mg by mouth every morning. [facility] ranitidine 150 mg tablet 12-13 00:00: 00 Yes 150mg Take 150 mg by mouth every morning. [facility] ranitidine 150 mg tablet 12-13 00:00: 00 Yes 150mg Take 150 mg by mouth every morning. [facility] ranitidine 150 mg tablet 12-13 00:00: 00 Yes 150mg Take 1 tablet by mouth every morning. [facility] ranitidine 150 mg tablet 12-13 00:00: 00 Yes 150mg Take 1 tablet by mouth every morning. [facility] ranitidine 150 mg tablet 12-13 00:00: 00 Yes 150mg Take 1 tablet by mouth every morning. [facility] ranitidine 150 mg tablet 12-13 00:00: 00 Yes 150mg Take 1 tablet by mouth every morning. [facility] ranitidine 150 mg tablet 12-13 00:00: 00 Yes 150mg Take 1 tablet by mouth every morning. [facility] ranitidine 150 mg tablet 12-13 00:00: 00 Yes 150mg Take 1 tablet by mouth every morning. [facility] ranitidine 150 mg tablet 12-13 00:00: 00 Yes 150mg Take 1 tablet by mouth every morning. [facility] ranitidine 150 mg tablet 12-13 00:00: 00 Yes 150mg Take 1 tablet by mouth every morning. [facility] ranitidine 150 mg tablet 12-13 00:00: 00 Yes 150mg Take 1 tablet by mouth every morning. [facility] ranitidine 150 mg tablet 12-13 00:00: 00 Yes 150mg Take 1 tablet by mouth every morning. [facility] ranitidine 150 mg tablet 12-13 00:00: 00 Yes 150mg Take 1 tablet by mouth every morning. [facility] ranitidine 150 mg tablet 12-13 00:00: 00 Yes 150mg Take 1 tablet by mouth every morning. [facility] ranitidine 150 mg tablet 12-13 00:00: 00 Yes 150mg Take 1 tablet by mouth every morning. [facility] ranitidine 150 mg tablet 12-13 00:00: 00 Yes 150mg Take 1 tablet by mouth every morning. [facility] ranitidine 150 mg tablet 12-13 00:00: 00 Yes 150mg Take 1 tablet by mouth every morning. [facility] ranitidine 150 mg tablet 12-13 00:00: 00 Yes 150mg Take 1 tablet by mouth every morning. [facility] ranitidine 150 mg tablet 12-13 00:00: 00 Yes 150mg Take 1 tablet by mouth every morning. [facility] ranitidine 150 mg tablet 12-13 00:00: 00 Yes 150mg Take 1 tablet by mouth every morning. [facility] ranitidine 150 mg tablet 12-13 00:00: 00 Yes 150mg Take 1 tablet by mouth every morning. [facility] ranitidine 150 mg tablet 12-13 00:00: 00 Yes 150mg Take 1 tablet by mouth every morning. [facility] ranitidine 150 mg tablet 12-13 00:00: 00 Yes 150mg Take 1 tablet by mouth every morning. [facility] ranitidine 150 mg tablet 12-13 00:00: 00 Yes 150mg Take 1 tablet by mouth every morning. [facility] ranitidine 150 mg tablet 12-13 00:00: 00 Yes 150mg Take 1 tablet by mouth every morning. [facility] ranitidine 150 mg tablet 12-13 00:00: 00 Yes 150mg Take 1 tablet by mouth every morning. [facility] ranitidine 150 mg tablet 12-13 00:00: 00 Yes 150mg Take 1 tablet by mouth every morning. [facility] ranitidine 150 mg tablet 12-13 00:00: 00 Yes 150mg Take 1 tablet by mouth every morning. [facility] ranitidine 150 mg tablet 12-13 00:00: 00 Yes 150mg Take 1 tablet by mouth every morning. [facility] ranitidine 150 mg tablet 12-13 00:00: 00 Yes 150mg Take 1 tablet by mouth every morning. [facility] ranitidine 150 mg tablet 12-13 00:00: 00 Yes 150mg Take 1 tablet by mouth every morning. [facility] ranitidine 150 mg tablet 12-13 00:00: 00 05-18 00:00 :00 No 150mg Take 1 tablet by mouth every morning. [facility] ranitidine 150 mg tablet 12-13 00:00: 00 05-18 00:00 :00 No 150mg Take 1 tablet by mouth every morning. [facility] ranitidine 150 mg tablet 2019-0 8-14 00:00: 00 05-18 00:00 :00 No 150mg Take 1 tablet by mouth every morning. [facility] F[facility]-FA (RIGHT STEP VITAMINS) 27 mg iron- 0.8 mg per tablet 0 11-07 00:00: 00 Yes Take by mouth. [facility] Fumar[facility]-FA (RIGHT STEP VITAMINS) 27 mg iron- 0.8 mg per tablet 0 11-07 00:00: 00 Yes Take by mouth. [facility] Fumarate-FA (RIGHT STEP VITAMINS) 27 mg iron- 0.8 mg per tablet 0 11-07 00:00: 00 Yes Take by mouth. [facility]Iron Fumarate-FA (RIGHT STEP VITAMINS) 27 mg iron- 0.8 mg per tablet 0 11-07 00:00: 00 Yes Take by mouth. [facility]Iron Fumarate-FA (RIGHT STEP VITAMINS) 27 mg iron- 0.8 mg per tablet 0 11-07 00:00: 00 Yes Take by mouth. [facility]Iron Fumarate-FA (RIGHT STEP VITAMINS) 27 mg iron- 0.8 mg per tablet 0 11-07 00:00: 00 Yes Take by mouth. [facility] Vit-Iron Fumarate-FA (RIGHT STEP VITAMINS) 27 mg iron- 0.8 mg per tablet 0 11-07 00:00: 00 Yes Take by mouth. [facility] Fumarate-FA (RIGHT STEP VITAMINS) 27 mg iron- 0.8 mg per tablet 0 11-07 00:00: 00 Yes Take by mouth. [facility]Iron Fumarate-FA (RIGHT STEP VITAMINS) 27 mg iron- 0.8 mg per tablet 0 11-07 00:00: 00 Yes Take by mouth. [facility] Fumarate-FA (RIGHT STEP VITAMINS) 27 mg iron- 0.8 mg per tablet 0 11-07 00:00: 00 Yes Take by mouth. [facility] Fumarate-FA (RIGHT STEP VITAMINS) 27 mg iron- 0.8 mg per tablet 0 11-07 00:00: 00 Yes Take by mouth. [facility] Vit-Iron Fumarate-FA (RIGHT STEP VITAMINS) 27 mg iron- 0.8 mg per tablet 0 11-07 00:00: 00 Yes Take by mouth. [facility] Vit-Iron Fumarate-FA (RIGHT STEP VITAMINS) 27 mg iron- 0.8 mg per tablet 0 11-07 00:00: 00 Yes Take by mouth. [facility] Vit-Iron Fumarate-FA (RIGHT STEP VITAMINS) 27 mg iron- 0.8 mg per tablet 0 11-07 00:00: 00 Yes Take by mouth. [facility] Vit-Iron Fumarate-FA (RIGHT STEP VITAMINS) 27 mg iron- 0.8 mg per tablet 0 11-07 00:00: 00 02-11 00:00 :00 No Take by mouth. [facility] Vit-Iron Fumarate-FA (RIGHT STEP VITAMINS) 27 mg iron- 0.8 mg per tablet 0 11-07 00:00: 00 02-11 00:00 :00 No Take by mouth. [facility] Immunizations Ordered Immunization Name Filled Immunization Name Date Status Comments Source Pneumococcal Polysaccharide, PPSV23 (PNEUMOVAX) 2021-04-09 00:00:00 Completed [facility] Pneumococcal Polysaccharide, PPSV23 (PNEUMOVAX) 2021-04-09 00:00:00 Completed [facility] Pneumococcal Polysaccharide, PPSV23 (PNEUMOVAX) 2021-04-09 00:00:00 Completed [facility] Pneumococcal Polysaccharide, PPSV23 (PNEUMOVAX) 2021-04-09 00:00:00 Completed [facility] Pneumococcal Polysaccharide, PPSV23 (PNEUMOVAX) 2021-04-09 00:00:00 Completed [facility] Pneumococcal Polysaccharide, PPSV23 (PNEUMOVAX) 2021-04-09 00:00:00 Completed [facility] Pneumococcal Polysaccharide, PPSV23 (PNEUMOVAX) 2021-04-09 00:00:00 Completed [facility] Pneumococcal Polysaccharide, PPSV23 (PNEUMOVAX) 2021-04-09 00:00:00 Completed [facility] Pneumococcal Polysaccharide, PPSV23 (PNEUMOVAX) 2021-04-09 00:00:00 Completed [facility] Pneumococcal Polysaccharide, PPSV23 (PNEUMOVAX) 2021-04-09 00:00:00 Completed [facility] Pneumococcal Polysaccharide, PPSV23 (PNEUMOVAX) 2021-04-09 00:00:00 Completed [facility] Pneumococcal Polysaccharide, PPSV23 (PNEUMOVAX) 2021-04-09 00:00:00 Completed [facility] Pneumococcal Polysaccharide, PPSV23 (PNEUMOVAX) 2021-04-09 00:00:00 Completed [facility] Pneumococcal Polysaccharide, PPSV23 (PNEUMOVAX) 2021-04-09 00:00:00 Completed [facility] Pneumococcal Polysaccharide, PPSV23 (PNEUMOVAX) 2021-04-09 00:00:00 Completed [facility] Pneumococcal Polysaccharide, PPSV23 (PNEUMOVAX) 2021-04-09 00:00:00 Completed [facility] Pneumococcal Polysaccharide, PPSV23 (PNEUMOVAX) 2021-04-09 00:00:00 Completed [facility] Pneumococcal Polysaccharide, PPSV23 (PNEUMOVAX) 2021-04-09 00:00:00 Completed [facility] Pneumococcal Polysaccharide, PPSV23 (PNEUMOVAX) 2021-04-09 00:00:00 Completed [facility] Pneumococcal Polysaccharide, PPSV23 (PNEUMOVAX) 2021-04-09 00:00:00 Completed [facility] Pneumococcal Polysaccharide, PPSV23 (PNEUMOVAX) 2021-04-09 00:00:00 Completed [facility] Pneumococcal Polysaccharide, PPSV23 (PNEUMOVAX) 2021-04-09 00:00:00 Completed [facility] Pneumococcal Polysaccharide, PPSV23 (PNEUMOVAX) 2021-04-09 00:00:00 Completed [facility] Pneumococcal Polysaccharide, PPSV23 (PNEUMOVAX) 2021-04-09 00:00:00 Completed [facility] Pneumococcal Polysaccharide, PPSV23 (PNEUMOVAX) 2021-04-09 00:00:00 Completed [facility] Pneumococcal Polysaccharide, PPSV23 (PNEUMOVAX) 2021-04-09 00:00:00 Completed [facility] Pneumococcal Polysaccharide, PPSV23 (PNEUMOVAX) 2021-04-09 00:00:00 Completed [facility] Pneumococcal Polysaccharide, PPSV23 (PNEUMOVAX) 2021-04-09 00:00:00 Completed [facility] Pneumococcal Polysaccharide, PPSV23 (PNEUMOVAX) 2021-04-09 00:00:00 Completed [facility] Pneumococcal Polysaccharide, PPSV23 (PNEUMOVAX) 2021-04-09 00:00:00 Completed [facility] Pneumococcal Polysaccharide, PPSV23 (PNEUMOVAX) 2021-04-09 00:00:00 Completed [facility] Pneumococcal Polysaccharide, PPSV23 (PNEUMOVAX) 2021-04-09 00:00:00 Completed [facility] Pneumococcal Polysaccharide, PPSV23 (PNEUMOVAX) 2021-04-09 00:00:00 Completed [facility] Pneumococcal Polysaccharide, PPSV23 (PNEUMOVAX) 2021-04-09 00:00:00 Completed [facility] Pneumococcal Polysaccharide, PPSV23 (PNEUMOVAX) 2021-04-09 00:00:00 Completed [facility] Pneumococcal Polysaccharide, PPSV23 (PNEUMOVAX) 2021-04-09 00:00:00 Completed [facility] Pneumococcal Polysaccharide, PPSV23 (PNEUMOVAX) 2021-04-09 00:00:00 Completed [facility] Pneumococcal Polysaccharide, PPSV23 (PNEUMOVAX) 2021-04-09 00:00:00 Completed [facility] Pneumococcal Polysaccharide, PPSV23 (PNEUMOVAX) 2021-04-09 00:00:00 Completed [facility] Pneumococcal Polysaccharide, PPSV23 (PNEUMOVAX) 2021-04-09 00:00:00 Completed [facility] Pneumococcal Polysaccharide, PPSV23 (PNEUMOVAX) 2021-04-09 00:00:00 Completed [facility] Pneumococcal Polysaccharide, PPSV23 (PNEUMOVAX) 2021-04-09 00:00:00 Completed [facility] Pneumococcal Polysaccharide, PPSV23 (PNEUMOVAX) 2021-04-09 00:00:00 Completed [facility] Pneumococcal Polysaccharide, PPSV23 (PNEUMOVAX) 2021-04-09 00:00:00 Completed [facility] Pneumococcal Polysaccharide, PPSV23 (PNEUMOVAX) 2021-04-09 00:00:00 Completed [facility] Pneumococcal Polysaccharide, PPSV23 (PNEUMOVAX) 2021-04-09 00:00:00 Completed [facility] Pneumococcal Polysaccharide, PPSV23 (PNEUMOVAX) 2021-04-09 00:00:00 Completed [facility] Pneumococcal Polysaccharide, PPSV23 (PNEUMOVAX) 2021-04-09 00:00:00 Completed [facility] Pneumococcal Polysaccharide, PPSV23 (PNEUMOVAX) 2021-04-09 00:00:00 Completed [facility] Pneumococcal Polysaccharide, PPSV23 (PNEUMOVAX) 2021-04-09 00:00:00 Completed [facility] Pneumococcal Polysaccharide, PPSV23 (PNEUMOVAX) 2021-04-09 00:00:00 Completed [facility] Pneumococcal Polysaccharide, PPSV23 (PNEUMOVAX) 2021-04-09 00:00:00 Completed [facility] Pneumococcal Polysaccharide, PPSV23 (PNEUMOVAX) 2021-04-09 00:00:00 Completed [facility] Pneumococcal Polysaccharide, PPSV23 (PNEUMOVAX) 2021-04-09 00:00:00 Completed [facility] Pneumococcal Polysaccharide, PPSV23 (PNEUMOVAX) 2021-04-09 00:00:00 Completed [facility] Pneumococcal Polysaccharide, PPSV23 (PNEUMOVAX) 2021-04-09 00:00:00 Completed [facility] Pneumococcal Polysaccharide, PPSV23 (PNEUMOVAX) 2021-04-09 00:00:00 Completed [facility] Pneumococcal Polysaccharide, PPSV23 (PNEUMOVAX) 2021-04-09 00:00:00 Completed [facility] Pneumococcal Polysaccharide, PPSV23 (PNEUMOVAX) 2021-04-09 00:00:00 Completed [facility] Pneumococcal Polysaccharide, PPSV23 (PNEUMOVAX) 2021-04-09 00:00:00 Completed [facility] Pneumococcal Polysaccharide, PPSV23 (PNEUMOVAX) 2021-04-09 00:00:00 Completed [facility] Pneumococcal Polysaccharide, PPSV23 (PNEUMOVAX) 2021-04-09 00:00:00 Completed [facility] Pneumococcal Polysaccharide, PPSV23 (PNEUMOVAX) 2021-04-09 00:00:00 Completed [facility] Pneumococcal Polysaccharide, PPSV23 (PNEUMOVAX) 2021-04-09 00:00:00 Completed [facility] Pneumococcal Polysaccharide, PPSV23 (PNEUMOVAX) 2021-04-09 00:00:00 Completed [facility] Pneumococcal Polysaccharide, PPSV23 (PNEUMOVAX) 2021-04-09 00:00:00 Completed [facility] Pneumococcal Polysaccharide, PPSV23 (PNEUMOVAX) 2021-04-09 00:00:00 Completed [facility] Pneumococcal Polysaccharide, PPSV23 (PNEUMOVAX) 2021-04-09 00:00:00 Completed [facility] Pneumococcal Polysaccharide, PPSV23 (PNEUMOVAX) 2021-04-09 00:00:00 Completed [facility] Pneumococcal Polysaccharide, PPSV23 (PNEUMOVAX) 2021-04-09 00:00:00 Completed [facility] Pneumococcal Polysaccharide, PPSV23 (PNEUMOVAX) 2021-04-09 00:00:00 Completed [facility] Pneumococcal Polysaccharide, PPSV23 (PNEUMOVAX) 2021-04-09 00:00:00 Completed [facility] Pneumococcal Polysaccharide, PPSV23 (PNEUMOVAX) 2021-04-09 00:00:00 Completed [facility] Pneumococcal Polysaccharide, PPSV23 (PNEUMOVAX) 2021-04-09 00:00:00 Completed [facility] Pneumococcal Polysaccharide, PPSV23 (PNEUMOVAX) 2021-04-09 00:00:00 Completed [facility] Pneumococcal Polysaccharide, PPSV23 (PNEUMOVAX) 2021-04-09 00:00:00 Completed [facility] Pneumococcal Polysaccharide, PPSV23 (PNEUMOVAX) 2021-04-09 00:00:00 Completed [facility] Pneumococcal Polysaccharide, PPSV23 (PNEUMOVAX) 2021-04-09 00:00:00 Completed [facility] Pneumococcal Polysaccharide, PPSV23 (PNEUMOVAX) 2021-04-09 00:00:00 Completed [facility] Pneumococcal Polysaccharide, PPSV23 (PNEUMOVAX) 2021-04-09 00:00:00 Completed [facility] Pneumococcal Polysaccharide, PPSV23 (PNEUMOVAX) 2021-04-09 00:00:00 Completed [facility] Pneumococcal Polysaccharide, PPSV23 (PNEUMOVAX) 2021-04-09 00:00:00 Completed [facility] Pneumococcal Polysaccharide, PPSV23 (PNEUMOVAX) 2021-04-09 00:00:00 Completed [facility] Pneumococcal Polysaccharide, PPSV23 (PNEUMOVAX) 2021-04-09 00:00:00 Completed [facility] Pneumococcal Polysaccharide, PPSV23 (PNEUMOVAX) 2021-04-09 00:00:00 Completed [facility] Pneumococcal Polysaccharide, PPSV23 (PNEUMOVAX) 2021-04-09 00:00:00 Completed [facility] Pneumococcal Polysaccharide, PPSV23 (PNEUMOVAX) 2021-04-09 00:00:00 Completed [facility] Influenza Virus Vaccine Quad IM, Preserv and ABX Free 6 MO-64 YRS 2021-02-12 00:00:00 Completed [facility] Influenza Virus Vaccine Quad IM, Preserv and ABX Free 6 MO-64 YRS 2021-02-12 00:00:00 Completed [facility] Influenza Virus Vaccine Quad IM, Preserv and ABX Free 6 MO-64 YRS 2021-02-12 00:00:00 Completed [facility] Influenza Virus Vaccine Quad IM, Preserv and ABX Free 6 MO-64 YRS 2021-02-12 00:00:00 Completed [facility] Influenza Virus Vaccine Quad IM, Preserv and ABX Free 6 MO-64 YRS 2021-02-12 00:00:00 Completed [facility] Influenza Virus Vaccine Quad IM, Preserv and ABX Free 6 MO-64 YRS 2021-02-12 00:00:00 Completed [facility] Influenza Virus Vaccine Quad IM, Preserv and ABX Free 6 MO-64 YRS 2021-02-12 00:00:00 Completed [facility] Influenza Virus Vaccine Quad IM, Preserv and ABX Free 6 MO-64 YRS 2021-02-12 00:00:00 Completed [facility] Influenza Virus Vaccine Quad IM, Preserv and ABX Free 6 MO-64 YRS 2021-02-12 00:00:00 Completed [facility] Influenza Virus Vaccine Quad IM, Preserv and ABX Free 6 MO-64 YRS 2021-02-12 00:00:00 Completed [facility] Influenza Virus Vaccine Quad IM, Preserv and ABX Free 6 MO-64 YRS 2021-02-12 00:00:00 Completed [facility] Influenza Virus Vaccine Quad IM, Preserv and ABX Free 6 MO-64 YRS 2021-02-12 00:00:00 Completed [facility] Influenza Virus Vaccine Quad IM, Preserv and ABX Free 6 MO-64 YRS 2021-02-12 00:00:00 Completed [facility] Influenza Virus Vaccine Quad IM, Preserv and ABX Free 6 MO-64 YRS 2021-02-12 00:00:00 Completed [facility] Influenza Virus Vaccine Quad IM, Preserv and ABX Free 6 MO-64 YRS 2021-02-12 00:00:00 Completed [facility] Influenza Virus Vaccine Quad IM, Preserv and ABX Free 6 MO-64 YRS 2021-02-12 00:00:00 Completed [facility] Influenza Virus Vaccine Quad IM, Preserv and ABX Free 6 MO-64 YRS 2021-02-12 00:00:00 Completed [facility] Influenza Virus Vaccine Quad IM, Preserv and ABX Free 6 MO-64 YRS 2021-02-12 00:00:00 Completed [facility] Influenza Virus Vaccine Quad IM, Preserv and ABX Free 6 MO-64 YRS 2021-02-12 00:00:00 Completed [facility] Influenza Virus Vaccine Quad IM, Preserv and ABX Free 6 MO-64 YRS 2021-02-12 00:00:00 Completed [facility] Influenza Virus Vaccine Quad IM, Preserv and ABX Free 6 MO-64 YRS 2021-02-12 00:00:00 Completed [facility] Influenza Virus Vaccine Quad IM, Preserv and ABX Free 6 MO-64 YRS 2021-02-12 00:00:00 Completed [facility] Influenza Virus Vaccine Quad IM, Preserv and ABX Free 6 MO-64 YRS 2021-02-12 00:00:00 Completed [facility] Influenza Virus Vaccine Quad IM, Preserv and ABX Free 6 MO-64 YRS 2021-02-12 00:00:00 Completed [facility] Influenza Virus Vaccine Quad IM, Preserv and ABX Free 6 MO-64 YRS 2021-02-12 00:00:00 Completed [facility] Influenza Virus Vaccine Quad IM, Preserv and ABX Free 6 MO-64 YRS 2021-02-12 00:00:00 Completed [facility] Influenza Virus Vaccine Quad IM, Preserv and ABX Free 6 MO-64 YRS 2021-02-12 00:00:00 Completed [facility] Influenza Virus Vaccine Quad IM, Preserv and ABX Free 6 MO-64 YRS 2021-02-12 00:00:00 Completed [facility] Influenza Virus Vaccine Quad IM, Preserv and ABX Free 6 MO-64 YRS 2021-02-12 00:00:00 Completed [facility] Influenza Virus Vaccine Quad IM, Preserv and ABX Free 6 MO-64 YRS 2021-02-12 00:00:00 Completed [facility] Influenza Virus Vaccine Quad IM, Preserv and ABX Free 6 MO-64 YRS 2021-02-12 00:00:00 Completed [facility] Influenza Virus Vaccine Quad IM, Preserv and ABX Free 6 MO-64 YRS 2021-02-12 00:00:00 Completed [facility] Influenza Virus Vaccine Quad IM, Preserv and ABX Free 6 MO-64 YRS 2021-02-12 00:00:00 Completed [facility] Influenza Virus Vaccine Quad IM, Preserv and ABX Free 6 MO-64 YRS 2021-02-12 00:00:00 Completed [facility] Influenza Virus Vaccine Quad IM, Preserv and ABX Free 6 MO-64 YRS 2021-02-12 00:00:00 Completed [facility] Influenza Virus Vaccine Quad IM, Preserv and ABX Free 6 MO-64 YRS 2021-02-12 00:00:00 Completed [facility] Influenza Virus Vaccine Quad IM, Preserv and ABX Free 6 MO-64 YRS 2021-02-12 00:00:00 Completed [facility] Influenza Virus Vaccine Quad IM, Preserv and ABX Free 6 MO-64 YRS 2021-02-12 00:00:00 Completed [facility] Influenza Virus Vaccine Quad IM, Preserv and ABX Free 6 MO-64 YRS 2021-02-12 00:00:00 Completed [facility] Influenza Virus Vaccine Quad IM, Preserv and ABX Free 6 MO-64 YRS 2021-02-12 00:00:00 Completed [facility] Influenza Virus Vaccine Quad IM, Preserv and ABX Free 6 MO-64 YRS 2021-02-12 00:00:00 Completed [facility] Influenza Virus Vaccine Quad IM, Preserv and ABX Free 6 MO-64 YRS 2021-02-12 00:00:00 Completed [facility] Influenza Virus Vaccine Quad IM, Preserv and ABX Free 6 MO-64 YRS 2021-02-12 00:00:00 Completed [facility] Influenza Virus Vaccine Quad IM, Preserv and ABX Free 6 MO-64 YRS 2021-02-12 00:00:00 Completed [facility] Influenza Virus Vaccine Quad IM, Preserv and ABX Free 6 MO-64 YRS 2021-02-12 00:00:00 Completed [facility] Influenza Virus Vaccine Quad IM, Preserv and ABX Free 6 MO-64 YRS 2021-02-12 00:00:00 Completed [facility] Influenza Virus Vaccine Quad IM, Preserv and ABX Free 6 MO-64 YRS 2021-02-12 00:00:00 Completed [facility] Influenza Virus Vaccine Quad IM, Preserv and ABX Free 6 MO-64 YRS 2021-02-12 00:00:00 Completed [facility] Influenza Virus Vaccine Quad IM, Preserv and ABX Free 6 MO-64 YRS 2021-02-12 00:00:00 Completed [facility] Influenza Virus Vaccine Quad IM, Preserv and ABX Free 6 MO-64 YRS 2021-02-12 00:00:00 Completed [facility] Influenza Virus Vaccine Quad IM, Preserv and ABX Free 6 MO-64 YRS 2021-02-12 00:00:00 Completed [facility] Influenza Virus Vaccine Quad IM, Preserv and ABX Free 6 MO-64 YRS 2021-02-12 00:00:00 Completed [facility] Influenza Virus Vaccine Quad IM, Preserv and ABX Free 6 MO-64 YRS 2021-02-12 00:00:00 Completed [facility] Influenza Virus Vaccine Quad IM, Preserv and ABX Free 6 MO-64 YRS 2021-02-12 00:00:00 Completed [facility] Influenza Virus Vaccine Quad IM, Preserv and ABX Free 6 MO-64 YRS 2021-02-12 00:00:00 Completed [facility] Influenza Virus Vaccine Quad IM, Preserv and ABX Free 6 MO-64 YRS 2021-02-12 00:00:00 Completed [facility] Influenza Virus Vaccine Quad IM, Preserv and ABX Free 6 MO-64 YRS 2021-02-12 00:00:00 Completed [facility] Influenza Virus Vaccine Quad IM, Preserv and ABX Free 6 MO-64 YRS 2021-02-12 00:00:00 Completed [facility] Influenza Virus Vaccine Quad IM, Preserv and ABX Free 6 MO-64 YRS 2021-02-12 00:00:00 Completed [facility] Influenza Virus Vaccine Quad IM, Preserv and ABX Free 6 MO-64 YRS 2021-02-12 00:00:00 Completed [facility] Influenza Virus Vaccine Quad IM, Preserv and ABX Free 6 MO-64 YRS 2021-02-12 00:00:00 Completed [facility] Influenza Virus Vaccine Quad IM, Preserv and ABX Free 6 MO-64 YRS 2021-02-12 00:00:00 Completed [facility] Influenza Virus Vaccine Quad IM, Preserv and ABX Free 6 MO-64 YRS 2021-02-12 00:00:00 Completed [facility] Influenza Virus Vaccine Quad IM, Preserv and ABX Free 6 MO-64 YRS 2021-02-12 00:00:00 Completed [facility] Influenza Virus Vaccine Quad IM, Preserv and ABX Free 6 MO-64 YRS 2021-02-12 00:00:00 Completed [facility] Influenza Virus Vaccine Quad IM, Preserv and ABX Free 6 MO-64 YRS 2021-02-12 00:00:00 Completed [facility] Influenza Virus Vaccine Quad IM, Preserv and ABX Free 6 MO-64 YRS 2021-02-12 00:00:00 Completed [facility] Influenza Virus Vaccine Quad IM, Preserv and ABX Free 6 MO-64 YRS 2021-02-12 00:00:00 Completed [facility] Influenza Virus Vaccine Quad IM, Preserv and ABX Free 6 MO-64 YRS 2021-02-12 00:00:00 Completed [facility] Influenza Virus Vaccine Quad IM, Preserv and ABX Free 6 MO-64 YRS 2021-02-12 00:00:00 Completed [facility] Influenza Virus Vaccine Quad IM, Preserv and ABX Free 6 MO-64 YRS 2021-02-12 00:00:00 Completed [facility] Influenza Virus Vaccine Quad IM, Preserv and ABX Free 6 MO-64 YRS 2021-02-12 00:00:00 Completed [facility] Influenza Virus Vaccine Quad IM, Preserv and ABX Free 6 MO-64 YRS 2021-02-12 00:00:00 Completed [facility] Influenza Virus Vaccine Quad IM, Preserv and ABX Free 6 MO-64 YRS 2021-02-12 00:00:00 Completed [facility] Influenza Virus Vaccine Quad IM, Preserv and ABX Free 6 MO-64 YRS 2021-02-12 00:00:00 Completed [facility] Influenza Virus Vaccine Quad IM, Preserv and ABX Free 6 MO-64 YRS 2021-02-12 00:00:00 Completed [facility] Influenza Virus Vaccine Quad IM, Preserv and ABX Free 6 MO-64 YRS 2021-02-12 00:00:00 Completed [facility] Influenza Virus Vaccine Quad IM, Preserv and ABX Free 6 MO-64 YRS 2021-02-12 00:00:00 Completed [facility] Influenza Virus Vaccine Quad IM, Preserv and ABX Free 6 MO-64 YRS 2021-02-12 00:00:00 Completed [facility] Influenza Virus Vaccine Quad IM, Preserv and ABX Free 6 MO-64 YRS 2021-02-12 00:00:00 Completed [facility] Influenza Virus Vaccine Quad IM, Preserv and ABX Free 6 MO-64 YRS 2021-02-12 00:00:00 Completed [facility] Influenza Virus Vaccine Quad IM, Preserv and ABX Free 6 MO-64 YRS 2021-02-12 00:00:00 Completed [facility] Influenza Virus Vaccine Quad IM, Preserv and ABX Free 6 MO-64 YRS 2021-02-12 00:00:00 Completed [facility] Influenza Virus Vaccine Quad IM, Preserv and ABX Free 6 MO-64 YRS 2021-02-12 00:00:00 Completed [facility] Influenza Virus Vaccine Quad IM, Preserv and ABX Free 6 MO-64 YRS 2021-02-12 00:00:00 Completed [facility] Influenza Virus Vaccine Quad IM, Preserv and ABX Free 6 MO-64 YRS (FLUCELVAX) 2021-02-12 00:00:00 Completed [facility] Influenza Virus Vaccine Quad IM, Preserv and ABX Free 6 MO-64 YRS (FLUCELVAX) 2021-02-12 00:00:00 Completed [facility] Pfizer COVID-19 Vaccine Pfizer COVID-19 Vaccine 2021-01-01 00:00:00 Completed SARS-COV-2 COVID-19 PFIZER VACCINE 2020-08-18 00:00:00 Completed [facility] SARS-COV-2 COVID-19 PFIZER VACCINE 2020-08-18 00:00:00 Completed [facility] SARS-COV-2 COVID-19 PFIZER VACCINE 2020-08-18 00:00:00 Completed [facility] SARS-COV-2 COVID-19 PFIZER VACCINE 2020-08-18 00:00:00 Completed [facility] SARS-COV-2 COVID-19 PFIZER VACCINE 2020-08-18 00:00:00 Completed [facility] SARS-COV-2 COVID-19 PFIZER VACCINE 2020-08-18 00:00:00 Completed [facility] SARS-COV-2 COVID-19 PFIZER VACCINE 2020-08-18 00:00:00 Completed [facility] SARS-COV-2 COVID-19 PFIZER VACCINE 2020-08-18 00:00:00 Completed [facility] SARS-COV-2 COVID-19 PFIZER VACCINE 2020-08-18 00:00:00 Completed [facility] SARS-COV-2 COVID-19 PFIZER VACCINE 2020-08-18 00:00:00 Completed [facility] SARS-COV-2 COVID-19 PFIZER VACCINE 2020-08-18 00:00:00 Completed [facility] SARS-COV-2 COVID-19 PFIZER VACCINE 2020-08-18 00:00:00 Completed [facility] SARS-COV-2 COVID-19 PFIZER VACCINE 2020-08-18 00:00:00 Completed [facility] SARS-COV-2 COVID-19 PFIZER VACCINE 2020-08-18 00:00:00 Completed [facility] SARS-COV-2 COVID-19 PFIZER VACCINE 2020-08-18 00:00:00 Completed [facility] SARS-COV-2 COVID-19 PFIZER VACCINE 2020-08-18 00:00:00 Completed [facility] SARS-COV-2 COVID-19 PFIZER VACCINE 2020-08-18 00:00:00 Completed [facility] SARS-COV-2 COVID-19 PFIZER VACCINE 2020-08-18 00:00:00 Completed [facility] SARS-COV-2 COVID-19 PFIZER VACCINE 2020-08-18 00:00:00 Completed [facility] SARS-COV-2 COVID-19 PFIZER VACCINE 2020-08-18 00:00:00 Completed [facility] SARS-COV-2 COVID-19 PFIZER VACCINE 2020-08-18 00:00:00 Completed [facility] SARS-COV-2 COVID-19 PFIZER VACCINE 2020-08-18 00:00:00 Completed [facility] SARS-COV-2 COVID-19 PFIZER VACCINE 2020-08-18 00:00:00 Completed [facility] SARS-COV-2 COVID-19 PFIZER VACCINE 2020-08-18 00:00:00 Completed [facility] SARS-COV-2 COVID-19 PFIZER VACCINE 2020-08-18 00:00:00 Completed [facility] SARS-COV-2 COVID-19 PFIZER VACCINE 2020-08-18 00:00:00 Completed [facility] SARS-COV-2 COVID-19 PFIZER VACCINE 2020-08-18 00:00:00 Completed [facility] SARS-COV-2 COVID-19 PFIZER VACCINE 2020-08-18 00:00:00 Completed [facility] SARS-COV-2 COVID-19 PFIZER VACCINE 2020-08-18 00:00:00 Completed [facility] SARS-COV-2 COVID-19 PFIZER VACCINE 2020-08-18 00:00:00 Completed [facility] SARS-COV-2 COVID-19 PFIZER VACCINE 2020-08-18 00:00:00 Completed [facility] SARS-COV-2 COVID-19 PFIZER VACCINE 2020-08-18 00:00:00 Completed [facility] SARS-COV-2 COVID-19 PFIZER VACCINE 2020-08-18 00:00:00 Completed [facility] SARS-COV-2 COVID-19 PFIZER VACCINE 2020-08-18 00:00:00 Completed [facility] SARS-COV-2 COVID-19 PFIZER VACCINE 2020-08-18 00:00:00 Completed [facility] SARS-COV-2 COVID-19 PFIZER VACCINE 2020-08-18 00:00:00 Completed [facility] SARS-COV-2 COVID-19 PFIZER VACCINE 2020-08-18 00:00:00 Completed [facility] SARS-COV-2 COVID-19 PFIZER VACCINE 2020-08-18 00:00:00 Completed [facility] SARS-COV-2 COVID-19 PFIZER VACCINE 2020-08-18 00:00:00 Completed [facility] SARS-COV-2 COVID-19 PFIZER VACCINE 2020-08-18 00:00:00 Completed [facility] SARS-COV-2 COVID-19 PFIZER VACCINE 2020-08-18 00:00:00 Completed [facility] SARS-COV-2 COVID-19 PFIZER VACCINE 2020-08-18 00:00:00 Completed [facility] SARS-COV-2 COVID-19 PFIZER VACCINE 2020-08-18 00:00:00 Completed [facility] SARS-COV-2 COVID-19 PFIZER VACCINE 2020-08-18 00:00:00 Completed [facility] SARS-COV-2 COVID-19 PFIZER VACCINE 2020-08-18 00:00:00 Completed [facility] SARS-COV-2 COVID-19 PFIZER VACCINE 2020-08-18 00:00:00 Completed [facility] SARS-COV-2 COVID-19 PFIZER VACCINE 2020-08-18 00:00:00 Completed [facility] SARS-COV-2 COVID-19 PFIZER VACCINE 2020-08-18 00:00:00 Completed [facility] SARS-COV-2 COVID-19 PFIZER VACCINE 2020-08-18 00:00:00 Completed [facility] SARS-COV-2 COVID-19 PFIZER VACCINE 2020-08-18 00:00:00 Completed [facility] SARS-COV-2 COVID-19 PFIZER VACCINE 2020-08-18 00:00:00 Completed [facility] SARS-COV-2 COVID-19 PFIZER VACCINE 2020-08-18 00:00:00 Completed [facility] SARS-COV-2 COVID-19 PFIZER VACCINE 2020-08-18 00:00:00 Completed [facility] SARS-COV-2 COVID-19 PFIZER VACCINE 2020-08-18 00:00:00 Completed [facility] SARS-COV-2 COVID-19 PFIZER VACCINE 2020-08-18 00:00:00 Completed [facility] SARS-COV-2 COVID-19 PFIZER VACCINE 2020-08-18 00:00:00 Completed [facility] SARS-COV-2 COVID-19 PFIZER VACCINE 2020-08-18 00:00:00 Completed [facility] SARS-COV-2 COVID-19 PFIZER VACCINE 2020-08-18 00:00:00 Completed [facility] SARS-COV-2 COVID-19 PFIZER VACCINE 2020-08-18 00:00:00 Completed [facility] SARS-COV-2 COVID-19 PFIZER VACCINE 2020-08-18 00:00:00 Completed [facility] SARS-COV-2 COVID-19 PFIZER VACCINE 2020-08-18 00:00:00 Completed [facility] SARS-COV-2 COVID-19 PFIZER VACCINE 2020-08-18 00:00:00 Completed [facility] SARS-COV-2 COVID-19 PFIZER VACCINE 2020-08-18 00:00:00 Completed [facility] SARS-COV-2 COVID-19 PFIZER VACCINE 2020-08-18 00:00:00 Completed [facility] SARS-COV-2 COVID-19 PFIZER VACCINE 2020-08-18 00:00:00 Completed [facility] SARS-COV-2 COVID-19 PFIZER VACCINE 2020-08-18 00:00:00 Completed [facility] SARS-COV-2 COVID-19 PFIZER VACCINE 2020-08-18 00:00:00 Completed [facility] SARS-COV-2 COVID-19 PFIZER VACCINE 2020-08-18 00:00:00 Completed [facility] SARS-COV-2 COVID-19 PFIZER VACCINE 2020-08-18 00:00:00 Completed [facility] SARS-COV-2 COVID-19 PFIZER VACCINE 2020-08-18 00:00:00 Completed [facility] SARS-COV-2 COVID-19 PFIZER VACCINE 2020-08-18 00:00:00 Completed [facility] SARS-COV-2 COVID-19 PFIZER VACCINE 2020-08-18 00:00:00 Completed [facility] SARS-COV-2 COVID-19 PFIZER VACCINE 2020-08-18 00:00:00 Completed [facility] SARS-COV-2 COVID-19 PFIZER VACCINE 2020-08-18 00:00:00 Completed [facility] SARS-COV-2 COVID-19 PFIZER VACCINE 2020-08-18 00:00:00 Completed [facility] SARS-COV-2 COVID-19 PFIZER VACCINE 2020-08-18 00:00:00 Completed [facility] SARS-COV-2 COVID-19 PFIZER VACCINE 2020-08-18 00:00:00 Completed [facility] SARS-COV-2 COVID-19 PFIZER VACCINE 2020-08-18 00:00:00 Completed [facility] SARS-COV-2 COVID-19 PFIZER VACCINE 2020-08-18 00:00:00 Completed [facility] SARS-COV-2 COVID-19 PFIZER VACCINE 2020-08-18 00:00:00 Completed [facility] SARS-COV-2 COVID-19 PFIZER VACCINE 2020-08-18 00:00:00 Completed [facility] SARS-COV-2 COVID-19 PFIZER VACCINE 2020-08-18 00:00:00 Completed [facility] SARS-COV-2 COVID-19 PFIZER VACCINE 2020-08-18 00:00:00 Completed [facility] SARS-COV-2 COVID-19 PFIZER VACCINE 2020-08-18 00:00:00 Completed [facility] SARS-COV-2 COVID-19 PFIZER VACCINE 2020-08-18 00:00:00 Completed [facility] SARS-COV-2 COVID-19 PFIZER VACCINE 2020-08-18 00:00:00 Completed [facility] SARS-COV-2 COVID-19 PFIZER VACCINE 2020-08-18 00:00:00 Completed [facility] Pfizer COVID-19 Vaccine Pfizer COVID-19 Vaccine 2020-08-18 00:00:00 Completed SARS-COV-2 COVID-19 PFIZER VACCINE 2020-07-25 00:00:00 Completed [facility] SARS-COV-2 COVID-19 PFIZER VACCINE 2020-07-25 00:00:00 Completed [facility] SARS-COV-2 COVID-19 PFIZER VACCINE 2020-07-25 00:00:00 Completed [facility] SARS-COV-2 COVID-19 PFIZER VACCINE 2020-07-25 00:00:00 Completed [facility] SARS-COV-2 COVID-19 PFIZER VACCINE 2020-07-25 00:00:00 Completed [facility] SARS-COV-2 COVID-19 PFIZER VACCINE 2020-07-25 00:00:00 Completed [facility] SARS-COV-2 COVID-19 PFIZER VACCINE 2020-07-25 00:00:00 Completed [facility] SARS-COV-2 COVID-19 PFIZER VACCINE 2020-07-25 00:00:00 Completed [facility] SARS-COV-2 COVID-19 PFIZER VACCINE 2020-07-25 00:00:00 Completed [facility] SARS-COV-2 COVID-19 PFIZER VACCINE 2020-07-25 00:00:00 Completed [facility] SARS-COV-2 COVID-19 PFIZER VACCINE 2020-07-25 00:00:00 Completed [facility] SARS-COV-2 COVID-19 PFIZER VACCINE 2020-07-25 00:00:00 Completed [facility] SARS-COV-2 COVID-19 PFIZER VACCINE 2020-07-25 00:00:00 Completed [facility] SARS-COV-2 COVID-19 PFIZER VACCINE 2020-07-25 00:00:00 Completed [facility] SARS-COV-2 COVID-19 PFIZER VACCINE 2020-07-25 00:00:00 Completed [facility] SARS-COV-2 COVID-19 PFIZER VACCINE 2020-07-25 00:00:00 Completed [facility] SARS-COV-2 COVID-19 PFIZER VACCINE 2020-07-25 00:00:00 Completed [facility] SARS-COV-2 COVID-19 PFIZER VACCINE 2020-07-25 00:00:00 Completed [facility] SARS-COV-2 COVID-19 PFIZER VACCINE 2020-07-25 00:00:00 Completed [facility] SARS-COV-2 COVID-19 PFIZER VACCINE 2020-07-25 00:00:00 Completed [facility] SARS-COV-2 COVID-19 PFIZER VACCINE 2020-07-25 00:00:00 Completed [facility] SARS-COV-2 COVID-19 PFIZER VACCINE 2020-07-25 00:00:00 Completed [facility] SARS-COV-2 COVID-19 PFIZER VACCINE 2020-07-25 00:00:00 Completed [facility] SARS-COV-2 COVID-19 PFIZER VACCINE 2020-07-25 00:00:00 Completed [facility] SARS-COV-2 COVID-19 PFIZER VACCINE 2020-07-25 00:00:00 Completed [facility] SARS-COV-2 COVID-19 PFIZER VACCINE 2020-07-25 00:00:00 Completed [facility] SARS-COV-2 COVID-19 PFIZER VACCINE 2020-07-25 00:00:00 Completed [facility] SARS-COV-2 COVID-19 PFIZER VACCINE 2020-07-25 00:00:00 Completed [facility] SARS-COV-2 COVID-19 PFIZER VACCINE 2020-07-25 00:00:00 Completed [facility] SARS-COV-2 COVID-19 PFIZER VACCINE 2020-07-25 00:00:00 Completed [facility] SARS-COV-2 COVID-19 PFIZER VACCINE 2020-07-25 00:00:00 Completed [facility] SARS-COV-2 COVID-19 PFIZER VACCINE 2020-07-25 00:00:00 Completed [facility] SARS-COV-2 COVID-19 PFIZER VACCINE 2020-07-25 00:00:00 Completed [facility] SARS-COV-2 COVID-19 PFIZER VACCINE 2020-07-25 00:00:00 Completed [facility] SARS-COV-2 COVID-19 PFIZER VACCINE 2020-07-25 00:00:00 Completed [facility] SARS-COV-2 COVID-19 PFIZER VACCINE 2020-07-25 00:00:00 Completed [facility] SARS-COV-2 COVID-19 PFIZER VACCINE 2020-07-25 00:00:00 Completed [facility] SARS-COV-2 COVID-19 PFIZER VACCINE 2020-07-25 00:00:00 Completed [facility] SARS-COV-2 COVID-19 PFIZER VACCINE 2020-07-25 00:00:00 Completed [facility] SARS-COV-2 COVID-19 PFIZER VACCINE 2020-07-25 00:00:00 Completed [facility] SARS-COV-2 COVID-19 PFIZER VACCINE 2020-07-25 00:00:00 Completed [facility] SARS-COV-2 COVID-19 PFIZER VACCINE 2020-07-25 00:00:00 Completed [facility] SARS-COV-2 COVID-19 PFIZER VACCINE 2020-07-25 00:00:00 Completed [facility] SARS-COV-2 COVID-19 PFIZER VACCINE 2020-07-25 00:00:00 Completed [facility] SARS-COV-2 COVID-19 PFIZER VACCINE 2020-07-25 00:00:00 Completed [facility] SARS-COV-2 COVID-19 PFIZER VACCINE 2020-07-25 00:00:00 Completed [facility] SARS-COV-2 COVID-19 PFIZER VACCINE 2020-07-25 00:00:00 Completed [facility] SARS-COV-2 COVID-19 PFIZER VACCINE 2020-07-25 00:00:00 Completed [facility] SARS-COV-2 COVID-19 PFIZER VACCINE 2020-07-25 00:00:00 Completed [facility] SARS-COV-2 COVID-19 PFIZER VACCINE 2020-07-25 00:00:00 Completed [facility] SARS-COV-2 COVID-19 PFIZER VACCINE 2020-07-25 00:00:00 Completed [facility] SARS-COV-2 COVID-19 PFIZER VACCINE 2020-07-25 00:00:00 Completed [facility] SARS-COV-2 COVID-19 PFIZER VACCINE 2020-07-25 00:00:00 Completed [facility] SARS-COV-2 COVID-19 PFIZER VACCINE 2020-07-25 00:00:00 Completed [facility] SARS-COV-2 COVID-19 PFIZER VACCINE 2020-07-25 00:00:00 Completed [facility] SARS-COV-2 COVID-19 PFIZER VACCINE 2020-07-25 00:00:00 Completed [facility] SARS-COV-2 COVID-19 PFIZER VACCINE 2020-07-25 00:00:00 Completed [facility] SARS-COV-2 COVID-19 PFIZER VACCINE 2020-07-25 00:00:00 Completed [facility] SARS-COV-2 COVID-19 PFIZER VACCINE 2020-07-25 00:00:00 Completed [facility] SARS-COV-2 COVID-19 PFIZER VACCINE 2020-07-25 00:00:00 Completed [facility] SARS-COV-2 COVID-19 PFIZER VACCINE 2020-07-25 00:00:00 Completed [facility] SARS-COV-2 COVID-19 PFIZER VACCINE 2020-07-25 00:00:00 Completed [facility] SARS-COV-2 COVID-19 PFIZER VACCINE 2020-07-25 00:00:00 Completed [facility] SARS-COV-2 COVID-19 PFIZER VACCINE 2020-07-25 00:00:00 Completed [facility] SARS-COV-2 COVID-19 PFIZER VACCINE 2020-07-25 00:00:00 Completed [facility] SARS-COV-2 COVID-19 PFIZER VACCINE 2020-07-25 00:00:00 Completed [facility] SARS-COV-2 COVID-19 PFIZER VACCINE 2020-07-25 00:00:00 Completed [facility] SARS-COV-2 COVID-19 PFIZER VACCINE 2020-07-25 00:00:00 Completed [facility] SARS-COV-2 COVID-19 PFIZER VACCINE 2020-07-25 00:00:00 Completed [facility] SARS-COV-2 COVID-19 PFIZER VACCINE 2020-07-25 00:00:00 Completed [facility] SARS-COV-2 COVID-19 PFIZER VACCINE 2020-07-25 00:00:00 Completed [facility] SARS-COV-2 COVID-19 PFIZER VACCINE 2020-07-25 00:00:00 Completed [facility] SARS-COV-2 COVID-19 PFIZER VACCINE 2020-07-25 00:00:00 Completed [facility] SARS-COV-2 COVID-19 PFIZER VACCINE 2020-07-25 00:00:00 Completed [facility] SARS-COV-2 COVID-19 PFIZER VACCINE 2020-07-25 00:00:00 Completed [facility] SARS-COV-2 COVID-19 PFIZER VACCINE 2020-07-25 00:00:00 Completed [facility] SARS-COV-2 COVID-19 PFIZER VACCINE 2020-07-25 00:00:00 Completed [facility] SARS-COV-2 COVID-19 PFIZER VACCINE 2020-07-25 00:00:00 Completed [facility] SARS-COV-2 COVID-19 PFIZER VACCINE 2020-07-25 00:00:00 Completed [facility] SARS-COV-2 COVID-19 PFIZER VACCINE 2020-07-25 00:00:00 Completed [facility] SARS-COV-2 COVID-19 PFIZER VACCINE 2020-07-25 00:00:00 Completed [facility] SARS-COV-2 COVID-19 PFIZER VACCINE 2020-07-25 00:00:00 Completed [facility] SARS-COV-2 COVID-19 PFIZER VACCINE 2020-07-25 00:00:00 Completed [facility] SARS-COV-2 COVID-19 PFIZER VACCINE 2020-07-25 00:00:00 Completed [facility] SARS-COV-2 COVID-19 PFIZER VACCINE 2020-07-25 00:00:00 Completed [facility] SARS-COV-2 COVID-19 PFIZER VACCINE 2020-07-25 00:00:00 Completed [facility] SARS-COV-2 COVID-19 PFIZER VACCINE 2020-07-25 00:00:00 Completed [facility] Pfizer COVID-19 Vaccine Pfizer COVID-19 Vaccine 2020-07-25 00:00:00 Completed Influenza Virus Vaccine Recomb Quad IM, Preserv and ABX Free 1864 [facility] 2020-04-04 00:00:00 Completed [facility] Influenza Virus Vaccine Recomb Quad IM, Preserv and ABX Free [address] [facility] 2020-04-04 00:00:00 Completed [facility] Influenza Virus Vaccine Recomb Quad IM, Preserv and ABX Free 1864 [facility] 2020-04-04 00:00:00 Completed [facility] Influenza Virus Vaccine Recomb Quad IM, Preserv and ABX Free 18-64 [facility] 2020-04-04 00:00:00 Completed [facility] Influenza Virus Vaccine Recomb Quad IM, Preserv and ABX Free [address] [facility] 2020-04-04 00:00:00 Completed [facility] Influenza Virus Vaccine Recomb Quad IM, Preserv and ABX Free 18-64 [facility] 2020-04-04 00:00:00 Completed [facility] Influenza Virus Vaccine Recomb Quad IM, Preserv and ABX Free 18-64 [facility] 2020-04-04 00:00:00 Completed [facility] Influenza Virus Vaccine Recomb Quad IM, Preserv and ABX Free 18-64 [facility] 2020-04-04 00:00:00 Completed [facility] Influenza Virus Vaccine Recomb Quad IM, Preserv and ABX Free 18-64 [facility] 2020-04-04 00:00:00 Completed [facility] Influenza Virus Vaccine Recomb Quad IM, Preserv and ABX Free 18-64 [facility] 2020-04-04 00:00:00 Completed [facility] Influenza Virus Vaccine Recomb Quad IM, Preserv and ABX Free 18-64 [facility] 2020-04-04 00:00:00 Completed [facility] Influenza Virus Vaccine Recomb Quad IM, Preserv and ABX Free 18-64 [facility] 2020-04-04 00:00:00 Completed [facility] Influenza Virus Vaccine Recomb Quad IM, Preserv and ABX Free 18-64 [facility] 2020-04-04 00:00:00 Completed [facility] Influenza Virus Vaccine Recomb Quad IM, Preserv and ABX Free [address] [facility] 2020-04-04 00:00:00 Completed [facility] Influenza Virus Vaccine Recomb Quad IM, Preserv and ABX Free [address] [facility] 2020-04-04 00:00:00 Completed [facility] Influenza Virus Vaccine Recomb Quad IM, Preserv and ABX Free [address] [facility] 2020-04-04 00:00:00 Completed [facility] Influenza Virus Vaccine Recomb Quad IM, Preserv and ABX Free [address] [facility] 2020-04-04 00:00:00 Completed [facility] Influenza Virus Vaccine Recomb Quad IM, Preserv and ABX Free [address] [facility] 2020-04-04 00:00:00 Completed [facility] Influenza Virus Vaccine Recomb Quad IM, Preserv and ABX Free [address] [facility] 2020-04-04 00:00:00 Completed [facility] Influenza Virus Vaccine Recomb Quad IM, Preserv and ABX Free [address] [facility] 2020-04-04 00:00:00 Completed [facility] Influenza Virus Vaccine Recomb Quad IM, Preserv and ABX Free [address] [facility] 2020-04-04 00:00:00 Completed [facility] Influenza Virus Vaccine Recomb Quad IM, Preserv and ABX Free [address] [facility] 2020-04-04 00:00:00 Completed [facility] Influenza Virus Vaccine Recomb Quad IM, Preserv and ABX Free [address] [facility] 2020-04-04 00:00:00 Completed [facility] Influenza Virus Vaccine Recomb Quad IM, Preserv and ABX Free [address] [facility] 2020-04-04 00:00:00 Completed [facility] Influenza Virus Vaccine Recomb Quad IM, Preserv and ABX Free [address] [facility] 2020-04-04 00:00:00 Completed [facility] Influenza Virus Vaccine Recomb Quad IM, Preserv and ABX Free 18-64 [facility] 2020-04-04 00:00:00 Completed [facility] Influenza Virus Vaccine Recomb Quad IM, Preserv and ABX Free 18-64 [facility] 2020-04-04 00:00:00 Completed [facility] Influenza Virus Vaccine Recomb Quad IM, Preserv and ABX Free 18-64 [facility] 2020-04-04 00:00:00 Completed [facility] Influenza Virus Vaccine Recomb Quad IM, Preserv and ABX Free 18-64 [facility] 2020-04-04 00:00:00 Completed [facility] Influenza Virus Vaccine Recomb Quad IM, Preserv and ABX Free 18-64 [facility] 2020-04-04 00:00:00 Completed [facility] Influenza Virus Vaccine Recomb Quad IM, Preserv and ABX Free [address] [facility] 2020-04-04 00:00:00 Completed [facility] Influenza Virus Vaccine Recomb Quad IM, Preserv and ABX Free [address] [facility] 2020-04-04 00:00:00 Completed [facility] Influenza Virus Vaccine Recomb Quad IM, Preserv and ABX Free [address] [facility] 2020-04-04 00:00:00 Completed [facility] Influenza Virus Vaccine Recomb Quad IM, Preserv and ABX Free [address] [facility] 2020-04-04 00:00:00 Completed [facility] Influenza Virus Vaccine Recomb Quad IM, Preserv and ABX Free [address] [facility] 2020-04-04 00:00:00 Completed [facility] Influenza Virus Vaccine Recomb Quad IM, Preserv and ABX Free [address] [facility] 2020-04-04 00:00:00 Completed [facility] Influenza Virus Vaccine Recomb Quad IM, Preserv and ABX Free 18-64 [facility] 2020-04-04 00:00:00 Completed [facility] Influenza Virus Vaccine Recomb Quad IM, Preserv and ABX Free [address] [facility] 2020-04-04 00:00:00 Completed [facility] Influenza Virus Vaccine Recomb Quad IM, Preserv and ABX Free [address] [facility] 2020-04-04 00:00:00 Completed [facility] Influenza Virus Vaccine Recomb Quad IM, Preserv and ABX Free [address] [facility] 2020-04-04 00:00:00 Completed [facility] Influenza Virus Vaccine Recomb Quad IM, Preserv and ABX Free [address] [facility] 2020-04-04 00:00:00 Completed [facility] Influenza Virus Vaccine Recomb Quad IM, Preserv and ABX Free 18-64 YRS 2020-04-04 00:00:00 Completed [facility] Influenza Virus Vaccine Recomb Quad IM, Preserv and ABX Free 18-64 YRS 2020-04-04 00:00:00 Completed [facility] Influenza Virus Vaccine Recomb Quad IM, Preserv and ABX Free 18-64 YRS 2020-04-04 00:00:00 Completed [facility] Influenza Virus Vaccine Recomb Quad IM, Preserv and ABX Free 18-64 YRS 2020-04-04 00:00:00 Completed [facility] Influenza Virus Vaccine Recomb Quad IM, Preserv and ABX Free 18-64 YRS 2020-04-04 00:00:00 Completed [facility] Influenza Virus Vaccine Recomb Quad IM, Preserv and ABX Free 18-64 [facility] 2020-04-04 00:00:00 Completed [facility] Influenza Virus Vaccine Recomb Quad IM, Preserv and ABX Free 18-64 [facility] 2020-04-04 00:00:00 Completed [facility] Influenza Virus Vaccine Recomb Quad IM, Preserv and ABX Free 18-64 [facility] 2020-04-04 00:00:00 Completed [facility] Influenza Virus Vaccine Recomb Quad IM, Preserv and ABX Free 18-64 [facility] 2020-04-04 00:00:00 Completed [facility] Influenza Virus Vaccine Recomb Quad IM, Preserv and ABX Free 18-64 [facility] 2020-04-04 00:00:00 Completed [facility] Influenza Virus Vaccine Recomb Quad IM, Preserv and ABX Free 18-64 YRS 2020-04-04 00:00:00 Completed [facility] Influenza Virus Vaccine Recomb Quad IM, Preserv and ABX Free 18-64 [facility] 2020-04-04 00:00:00 Completed [facility] Influenza Virus Vaccine Recomb Quad IM, Preserv and ABX Free 18-64 [facility] 2020-04-04 00:00:00 Completed [facility] Influenza Virus Vaccine Recomb Quad IM, Preserv and ABX Free 18-64 YRS 2020-04-04 00:00:00 Completed [facility] Influenza Virus Vaccine Recomb Quad IM, Preserv and ABX Free 18-64 [facility] 2020-04-04 00:00:00 Completed [facility] Influenza Virus Vaccine Recomb Quad IM, Preserv and ABX Free 18-64 [facility] 2020-04-04 00:00:00 Completed [facility] Influenza Virus Vaccine Recomb Quad IM, Preserv and ABX Free 18-64 [facility] 2020-04-04 00:00:00 Completed [facility] Influenza Virus Vaccine Recomb Quad IM, Preserv and ABX Free 18-64 [facility] 2020-04-04 00:00:00 Completed [facility] Influenza Virus Vaccine Recomb Quad IM, Preserv and ABX Free 18-64 [facility] 2020-04-04 00:00:00 Completed [facility] Influenza Virus Vaccine Recomb Quad IM, Preserv and ABX Free 18-64 [facility] 2020-04-04 00:00:00 Completed [facility] Influenza Virus Vaccine Recomb Quad IM, Preserv and ABX Free [address] [facility] 2020-04-04 00:00:00 Completed [facility] Influenza Virus Vaccine Recomb Quad IM, Preserv and ABX Free [address] [facility] 2020-04-04 00:00:00 Completed [facility] Influenza Virus Vaccine Recomb Quad IM, Preserv and ABX Free [address] [facility] 2020-04-04 00:00:00 Completed [facility] Influenza Virus Vaccine Recomb Quad IM, Preserv and ABX Free [address] [facility] 2020-04-04 00:00:00 Completed [facility] Influenza Virus Vaccine Recomb Quad IM, Preserv and ABX Free [address] [facility] 2020-04-04 00:00:00 Completed [facility] Influenza Virus Vaccine Recomb Quad IM, Preserv and ABX Free [address] [facility] 2020-04-04 00:00:00 Completed [facility] Influenza Virus Vaccine Recomb Quad IM, Preserv and ABX Free 18-64 [facility] 2020-04-04 00:00:00 Completed [facility] Influenza Virus Vaccine Recomb Quad IM, Preserv and ABX Free [address] [facility] 2020-04-04 00:00:00 Completed [facility] Influenza Virus Vaccine Recomb Quad IM, Preserv and ABX Free 18-64 [facility] 2020-04-04 00:00:00 Completed [facility] Influenza Virus Vaccine Recomb Quad IM, Preserv and ABX Free [address] [facility] 2020-04-04 00:00:00 Completed [facility] Influenza Virus Vaccine Recomb Quad IM, Preserv and ABX Free 18-64 YRS 2020-04-04 00:00:00 Completed [facility] Influenza Virus Vaccine Recomb Quad IM, Preserv and ABX Free 18-64 [facility] 2020-04-04 00:00:00 Completed [facility] Influenza Virus Vaccine Recomb Quad IM, Preserv and ABX Free 18-64 [facility] 2020-04-04 00:00:00 Completed [facility] Influenza Virus Vaccine Recomb Quad IM, Preserv and ABX Free [address] [facility] 2020-04-04 00:00:00 Completed [facility] Influenza Virus Vaccine Recomb Quad IM, Preserv and ABX Free [address] [facility] 2020-04-04 00:00:00 Completed [facility] Influenza Virus Vaccine Recomb Quad IM, Preserv and ABX Free [address] [facility] 2020-04-04 00:00:00 Completed [facility] Influenza Virus Vaccine Recomb Quad IM, Preserv and ABX Free [address] [facility] 2020-04-04 00:00:00 Completed [facility] Influenza Virus Vaccine Recomb Quad IM, Preserv and ABX Free [address] [facility] 2020-04-04 00:00:00 Completed [facility] Influenza Virus Vaccine Recomb Quad IM, Preserv and ABX Free [address] [facility] 2020-04-04 00:00:00 Completed [facility] Influenza Virus Vaccine Recomb Quad IM, Preserv and ABX Free [address] [facility] 2020-04-04 00:00:00 Completed [facility] Influenza Virus Vaccine Recomb Quad IM, Preserv and ABX Free [address] [facility] 2020-04-04 00:00:00 Completed [facility] Influenza Virus Vaccine Recomb Quad IM, Preserv and ABX Free [address] [facility] 2020-04-04 00:00:00 Completed [facility] Influenza Virus Vaccine Recomb Quad IM, Preserv and ABX Free [address] [facility] 2020-04-04 00:00:00 Completed [facility] Influenza Virus Vaccine Recomb Quad IM, Preserv and ABX Free [address] [facility] 2020-04-04 00:00:00 Completed [facility] Influenza Virus Vaccine Recomb Quad IM, Preserv and ABX Free [address] [facility] 2020-04-04 00:00:00 Completed [facility] Influenza Virus Vaccine Recomb Quad IM, Preserv and ABX Free 18-64 YRS 2020-04-04 00:00:00 Completed [facility] TDAP (ADACEL) VACCINE 2019-04-10 00:00:00 Completed [facility] TDAP (ADACEL) VACCINE 2019-04-10 00:00:00 Completed [facility] TDAP (ADACEL) VACCINE 2019-04-10 00:00:00 Completed [facility] TDAP (ADACEL) VACCINE 2019-04-10 00:00:00 Completed [facility] TDAP (ADACEL) VACCINE 2019-04-10 00:00:00 Completed [facility] TDAP (ADACEL) VACCINE 2019-04-10 00:00:00 Completed [facility] TDAP (ADACEL) VACCINE 2019-04-10 00:00:00 Completed [facility] TDAP (ADACEL) VACCINE 2019-04-10 00:00:00 Completed [facility] TDAP (ADACEL) VACCINE 2019-04-10 00:00:00 Completed [facility] TDAP (ADACEL) VACCINE 2019-04-10 00:00:00 Completed [facility] TDAP (ADACEL) VACCINE 2019-04-10 00:00:00 Completed [facility] TDAP (ADACEL) VACCINE 2019-04-10 00:00:00 Completed [facility] TDAP (ADACEL) VACCINE 2019-04-10 00:00:00 Completed [facility] TDAP (ADACEL) VACCINE 2019-04-10 00:00:00 Completed [facility] TDAP (ADACEL) VACCINE 2019-04-10 00:00:00 Completed [facility] TDAP (ADACEL) VACCINE 2019-04-10 00:00:00 Completed [facility] TDAP (ADACEL) VACCINE 2019-04-10 00:00:[address] [facility] TDAP (ADACEL) VACCINE 2019-04-10 00:00:00 Completed [facility] TDAP (ADACEL) VACCINE 2019-04-10 00:00:00 Completed [facility] TDAP (ADACEL) VACCINE 2019-04-10 00:00:[address] [facility] TDAP (ADACEL) VACCINE 2019-04-10 00:00:00 Completed [facility] TDAP (ADACEL) VACCINE 2019-04-10 00:00:00 Completed [facility] TDAP (ADACEL) VACCINE 2019-04-10 00:00:00 Completed [facility] TDAP (ADACEL) VACCINE 2019-04-10 00:00:00 Completed [facility] TDAP (ADACEL) VACCINE 2019-04-10 00:00:00 Completed [facility] TDAP (ADACEL) VACCINE 2019-04-10 00:00:00 Completed [facility] TDAP (ADACEL) VACCINE 2019-04-10 00:00:00 Completed [facility] TDAP (ADACEL) VACCINE 2019-04-10 00:00:00 Completed [facility] TDAP (ADACEL) VACCINE 2019-04-10 00:00:00 Completed [facility] TDAP (ADACEL) VACCINE 2019-04-10 00:00:00 Completed [facility] TDAP (ADACEL) VACCINE 2019-04-10 00:00:00 Completed [facility] TDAP (ADACEL) VACCINE 2019-04-10 00:00:00 Completed [facility] TDAP (ADACEL) VACCINE 2019-04-10 00:00:00 Completed [facility] TDAP (ADACEL) VACCINE 2019-04-10 00:00:00 Completed [facility] TDAP (ADACEL) VACCINE 2019-04-10 00:00:00 Completed [facility] TDAP (ADACEL) VACCINE 2019-04-10 00:00:00 Completed [facility] TDAP (ADACEL) VACCINE 2019-04-10 00:00:00 Completed [facility] TDAP (ADACEL) VACCINE 2019-04-10 00:00:00 Completed [facility] TDAP (ADACEL) VACCINE 2019-04-10 00:00:00 Completed [facility] TDAP (ADACEL) VACCINE 2019-04-10 00:00:00 Completed [facility] TDAP (ADACEL) VACCINE 2019-04-10 00:00:00 Completed [facility] TDAP (ADACEL) VACCINE 2019-04-10 00:00:[address] [facility] TDAP (ADACEL) VACCINE 2019-04-10 00:00:00 Completed [facility] TDAP (ADACEL) VACCINE 2019-04-10 00:00:00 Completed [facility] TDAP (ADACEL) VACCINE 2019-04-10 00:00:00 Completed [facility] TDAP (ADACEL) VACCINE 2019-04-10 00:00:00 Completed [facility] TDAP (ADACEL) VACCINE 2019-04-10 00:00:00 Completed [facility] TDAP (ADACEL) VACCINE 2019-04-10 00:00:00 Completed [facility] TDAP (ADACEL) VACCINE 2019-04-10 00:00:00 Completed [facility] TDAP (ADACEL) VACCINE 2019-04-10 00:00:00 Completed [facility] TDAP (ADACEL) VACCINE 2019-04-10 00:00:00 Completed [facility] TDAP (ADACEL) VACCINE 2019-04-10 00:00:00 Completed [facility] TDAP (ADACEL) VACCINE 2019-04-10 00:00:00 Completed [facility] TDAP (ADACEL) VACCINE 2019-04-10 00:00:00 Completed [facility] TDAP (ADACEL) VACCINE 2019-04-10 00:00:00 Completed [facility] TDAP (ADACEL) VACCINE 2019-04-10 00:00:00 Completed [facility] TDAP (ADACEL) VACCINE 2019-04-10 00:00:00 Completed [facility] TDAP (ADACEL) VACCINE 2019-04-10 00:00:00 Completed [facility] TDAP (ADACEL) VACCINE 2019-04-10 00:00:[address] [facility] TDAP (ADACEL) VACCINE 2019-04-10 00:00:[address] [facility] TDAP (ADACEL) VACCINE 2019-04-10 00:00:[address] [facility] TDAP (ADACEL) VACCINE 2019-04-10 00:00:[address] [facility] TDAP (ADACEL) VACCINE 2019-04-10 00:00:[address] [facility] TDAP (ADACEL) VACCINE 2019-04-10 00:00:00 Completed [facility] TDAP (ADACEL) VACCINE 2019-04-10 00:00:00 Completed [facility] TDAP (ADACEL) VACCINE 2019-04-10 00:00:00 Completed [facility] TDAP (ADACEL) VACCINE 2019-04-10 00:00:00 Completed [facility] TDAP (ADACEL) VACCINE 2019-04-10 00:00:00 Completed [facility] TDAP (ADACEL) VACCINE 2019-04-10 00:00:00 Completed [facility] TDAP (ADACEL) VACCINE 2019-04-10 00:00:00 Completed [facility] TDAP (ADACEL) VACCINE 2019-04-10 00:00:00 Completed [facility] TDAP (ADACEL) VACCINE 2019-04-10 00:00:00 Completed [facility] TDAP (ADACEL) VACCINE 2019-04-10 00:00:00 Completed [facility] TDAP (ADACEL) VACCINE 2019-04-10 00:00:00 Completed [facility] TDAP (ADACEL) VACCINE 2019-04-10 00:00:00 Completed [facility] TDAP (ADACEL) VACCINE 2019-04-10 00:00:00 Completed [facility] TDAP (ADACEL) VACCINE 2019-04-10 00:00:00 Completed [facility] TDAP (ADACEL) VACCINE 2019-04-10 00:00:00 Completed [facility] TDAP (ADACEL) VACCINE 2019-04-10 00:00:00 Completed [facility] TDAP (ADACEL) VACCINE 2019-04-10 00:00:00 Completed [facility] TDAP (ADACEL) VACCINE 2019-04-10 00:00:00 Completed [facility] TDAP (ADACEL) VACCINE 2019-04-10 00:00:00 Completed [facility] TDAP (ADACEL) VACCINE 2019-04-10 00:00:00 Completed [facility] TDAP (ADACEL) VACCINE 2019-04-10 00:00:00 Completed [facility] TDAP (ADACEL) VACCINE 2019-04-10 00:00:00 Completed [facility] TDAP (ADACEL) VACCINE 2019-04-10 00:00:00 Completed [facility] TDAP (ADACEL) VACCINE 2019-04-10 00:00:00 Completed [facility] Influenza Virus Vaccine Quad .5 mL IM 6+ MO 2019-02-09 00:00:00 Completed [facility] Influenza Virus Vaccine Quad .5 mL IM 6+ MO 2019-02-09 00:00:00 Completed [facility] Influenza Virus Vaccine Quad .5 mL IM 6+ MO 2019-02-09 00:00:00 Completed [facility] Influenza Virus Vaccine Quad .5 mL IM 6+ MO 2019-02-09 00:00:00 Completed [facility] Influenza Virus Vaccine Quad .5 mL IM 6+ MO 2019-02-09 00:00:00 Completed [facility] Influenza Virus Vaccine Quad .5 mL IM 6+ MO 2019-02-09 00:00:00 Completed [facility] Influenza Virus Vaccine Quad .5 mL IM 6+ MO 2019-02-09 00:00:00 Completed [facility] Influenza Virus Vaccine Quad .5 mL IM 6+ MO 2019-02-09 00:00:00 Completed [facility] Influenza Virus Vaccine Quad .5 mL IM 6+ MO 2019-02-09 00:00:00 Completed [facility] Influenza Virus Vaccine Quad .5 mL IM 6+ MO 2019-02-09 00:00:00 Completed [facility] Influenza Virus Vaccine Quad .5 mL IM 6+ MO 2019-02-09 00:00:00 Completed [facility] Influenza Virus Vaccine Quad .5 mL IM 6+ MO 2019-02-09 00:00:00 Completed [facility] Influenza Virus Vaccine Quad .5 mL IM 6+ MO 2019-02-09 00:00:00 Completed [facility] Influenza Virus Vaccine Quad .5 mL IM 6+ MO 2019-02-09 00:00:00 Completed [facility] Influenza Virus Vaccine Quad .5 mL IM 6+ MO 2019-02-09 00:00:00 Completed [facility] Influenza Virus Vaccine Quad .5 mL IM 6+ MO 2019-02-09 00:00:00 Completed [facility] Influenza Virus Vaccine Quad .5 mL IM 6+ MO 2019-02-09 00:00:00 Completed [facility] Influenza Virus Vaccine Quad .5 mL IM 6+ MO 2019-02-09 00:00:00 Completed [facility] Influenza Virus Vaccine Quad .5 mL IM 6+ MO 2019-02-09 00:00:00 Completed [facility] Influenza Virus Vaccine Quad .5 mL IM 6+ MO 2019-02-09 00:00:00 Completed [facility] Influenza Virus Vaccine Quad .5 mL IM 6+ MO 2019-02-09 00:00:00 Completed [facility] Influenza Virus Vaccine Quad .5 mL IM 6+ MO 2019-02-09 00:00:00 Completed [facility] Influenza Virus Vaccine Quad .5 mL IM 6+ MO 2019-02-09 00:00:00 Completed [facility] Influenza Virus Vaccine Quad .5 mL IM 6+ MO 2019-02-09 00:00:00 Completed [facility] Influenza Virus Vaccine Quad .5 mL IM 6+ MO 2019-02-09 00:00:00 Completed [facility] Influenza Virus Vaccine Quad .5 mL IM 6+ MO 2019-02-09 00:00:00 Completed [facility] Influenza Virus Vaccine Quad .5 mL IM 6+ MO 2019-02-09 00:00:00 Completed [facility] Influenza Virus Vaccine Quad .5 mL IM 6+ MO 2019-02-09 00:00:00 Completed [facility] Influenza Virus Vaccine Quad .5 mL IM 6+ MO 2019-02-09 00:00:00 Completed [facility] Influenza Virus Vaccine Quad .5 mL IM 6+ MO 2019-02-09 00:00:00 Completed [facility] Influenza Virus Vaccine Quad .5 mL IM 6+ MO 2019-02-09 00:00:00 Completed [facility] Influenza Virus Vaccine Quad .5 mL IM 6+ MO 2019-02-09 00:00:00 Completed [facility] Influenza Virus Vaccine Quad .5 mL IM 6+ MO 2019-02-09 00:00:00 Completed [facility] Influenza Virus Vaccine Quad .5 mL IM 6+ MO 2019-02-09 00:00:00 Completed [facility] Influenza Virus Vaccine Quad .5 mL IM 6+ MO 2019-02-09 00:00:00 Completed [facility] Influenza Virus Vaccine Quad .5 mL IM 6+ MO 2019-02-09 00:00:00 Completed [facility] Influenza Virus Vaccine Quad .5 mL IM 6+ MO 2019-02-09 00:00:00 Completed [facility] Influenza Virus Vaccine Quad .5 mL IM 6+ MO 2019-02-09 00:00:00 Completed [facility] Influenza Virus Vaccine Quad .5 mL IM 6+ MO 2019-02-09 00:00:00 Completed [facility] Influenza Virus Vaccine Quad .5 mL IM 6+ MO 2019-02-09 00:00:00 Completed [facility] Influenza Virus Vaccine Quad .5 mL IM 6+ MO 2019-02-09 00:00:00 Completed [facility] Influenza Virus Vaccine Quad .5 mL IM 6+ MO 2019-02-09 00:00:00 Completed [facility] Influenza Virus Vaccine Quad .5 mL IM 6+ MO 2019-02-09 00:00:00 Completed [facility] Influenza Virus Vaccine Quad .5 mL IM 6+ MO 2019-02-09 00:00:00 Completed [facility] Influenza Virus Vaccine Quad .5 mL IM 6+ MO 2019-02-09 00:00:00 Completed [facility] Influenza Virus Vaccine Quad .5 mL IM 6+ MO 2019-02-09 00:00:00 Completed [facility] Influenza Virus Vaccine Quad .5 mL IM 6+ MO 2019-02-09 00:00:00 Completed [facility] Influenza Virus Vaccine Quad .5 mL IM 6+ MO 2019-02-09 00:00:00 Completed [facility] Influenza Virus Vaccine Quad .5 mL IM 6+ MO 2019-02-09 00:00:00 Completed [facility] Influenza Virus Vaccine Quad .5 mL IM 6+ MO 2019-02-09 00:00:00 Completed [facility] Influenza Virus Vaccine Quad .5 mL IM 6+ MO 2019-02-09 00:00:00 Completed [facility] Influenza Virus Vaccine Quad .5 mL IM 6+ MO 2019-02-09 00:00:00 Completed [facility] Influenza Virus Vaccine Quad .5 mL IM 6+ MO 2019-02-09 00:00:00 Completed [facility] Influenza Virus Vaccine Quad .5 mL IM 6+ MO 2019-02-09 00:00:00 Completed [facility] Influenza Virus Vaccine Quad .5 mL IM 6+ MO 2019-02-09 00:00:00 Completed [facility] Influenza Virus Vaccine Quad .5 mL IM 6+ MO 2019-02-09 00:00:00 Completed [facility] Influenza Virus Vaccine Quad .5 mL IM 6+ MO 2019-02-09 00:00:00 Completed [facility] Influenza Virus Vaccine Quad .5 mL IM 6+ MO 2019-02-09 00:00:00 Completed [facility] Influenza Virus Vaccine Quad .5 mL IM 6+ MO 2019-02-09 00:00:00 Completed [facility] Influenza Virus Vaccine Quad .5 mL IM 6+ MO 2019-02-09 00:00:00 Completed [facility] Influenza Virus Vaccine Quad .5 mL IM 6+ MO 2019-02-09 00:00:00 Completed [facility] Influenza Virus Vaccine Quad .5 mL IM 6+ MO 2019-02-09 00:00:00 Completed [facility] Influenza Virus Vaccine Quad .5 mL IM 6+ MO 2019-02-09 00:00:00 Completed [facility] Influenza Virus Vaccine Quad .5 mL IM 6+ MO 2019-02-09 00:00:00 Completed [facility] Influenza Virus Vaccine Quad .5 mL IM 6+ MO 2019-02-09 00:00:00 Completed [facility] Influenza Virus Vaccine Quad .5 mL IM 6+ MO 2019-02-09 00:00:00 Completed [facility] Influenza Virus Vaccine Quad .5 mL IM 6+ MO 2019-02-09 00:00:00 Completed [facility] Influenza Virus Vaccine Quad .5 mL IM 6+ MO 2019-02-09 00:00:00 Completed [facility] Influenza Virus Vaccine Quad .5 mL IM 6+ MO 2019-02-09 00:00:00 Completed [facility] Influenza Virus Vaccine Quad .5 mL IM 6+ MO 2019-02-09 00:00:00 Completed [facility] Influenza Virus Vaccine Quad .5 mL IM 6+ MO 2019-02-09 00:00:00 Completed [facility] Influenza Virus Vaccine Quad .5 mL IM 6+ MO 2019-02-09 00:00:00 Completed [facility] Influenza Virus Vaccine Quad .5 mL IM 6+ MO 2019-02-09 00:00:00 Completed [facility] Influenza Virus Vaccine Quad .5 mL IM 6+ MO 2019-02-09 00:00:00 Completed [facility] Influenza Virus Vaccine Quad .5 mL IM 6+ MO 2019-02-09 00:00:00 Completed [facility] Influenza Virus Vaccine Quad .5 mL IM 6+ MO 2019-02-09 00:00:00 Completed [facility] Influenza Virus Vaccine Quad .5 mL IM 6+ MO 2019-02-09 00:00:00 Completed [facility] Influenza Virus Vaccine Quad .5 mL IM 6+ MO 2019-02-09 00:00:00 Completed [facility] Influenza Virus Vaccine Quad .5 mL IM 6+ MO 2019-02-09 00:00:00 Completed [facility] Influenza Virus Vaccine Quad .5 mL IM 6+ MO 2019-02-09 00:00:00 Completed [facility] Influenza Virus Vaccine Quad .5 mL IM 6+ MO 2019-02-09 00:00:00 Completed [facility] Influenza Virus Vaccine Quad .5 mL IM 6+ MO 2019-02-09 00:00:00 Completed [facility] Influenza Virus Vaccine Quad .5 mL IM 6+ MO 2019-02-09 00:00:00 Completed [facility] Influenza Virus Vaccine Quad .5 mL IM 6+ MO 2019-02-09 00:00:00 Completed [facility] Influenza Virus Vaccine Quad .5 mL IM 6+ MO 2019-02-09 00:00:00 Completed [facility] Influenza Virus Vaccine Quad .5 mL IM 6+ MO (FLUZONE/FLULAVAL/F LUARIX) 2019-02-09 00:00:00 Completed [facility] Influenza Virus Vaccine Quad .5 mL IM 6+ MO (FLUZONE/FLULAVAL/F LUARIX) 2019-02-09 00:00:00 Completed [facility] Influenza High Dose 2018-03-29 00:00:00 Completed [facility] Influenza High Dose 2018-03-29 00:00:00 Completed [facility] Influenza High Dose 2018-03-29 00:00:00 Completed [facility] Influenza High Dose 2018-03-29 00:00:00 Completed [facility] Influenza High Dose 2018-03-29 00:00:00 Completed [facility] Influenza High Dose 2018-03-29 00:00:00 Completed [facility] Influenza High Dose 2018-03-29 00:00:00 Completed [facility] Influenza High Dose 2018-03-29 00:00:00 Completed [facility] Influenza High Dose 2018-03-29 00:00:00 Completed [facility] Influenza High Dose 2018-03-29 00:00:00 Completed [facility] Influenza High Dose 2018-03-29 00:00:00 Completed [facility] Influenza High Dose 2018-03-29 00:00:00 Completed [facility] Influenza High Dose 2018-03-29 00:00:00 Completed [facility] Influenza High Dose 2018-03-29 00:00:00 Completed [facility] Influenza High Dose 2018-03-29 00:00:00 Completed [facility] Influenza High Dose 2018-03-29 00:00:00 Completed [facility] Influenza High Dose 2018-03-29 00:00:00 Completed [facility] Influenza High Dose 2018-03-29 00:00:00 Completed [facility] Influenza High Dose 2018-03-29 00:00:00 Completed [facility] Influenza High Dose 2018-03-29 00:00:00 Completed [facility] Influenza High Dose 2018-03-29 00:00:00 Completed [facility] Influenza High Dose 2018-03-29 00:00:00 Completed [facility] Influenza High Dose 2018-03-29 00:00:00 Completed [facility] Influenza High Dose 2018-03-29 00:00:00 Completed [facility] Influenza High Dose 2018-03-29 00:00:00 Completed [facility] Influenza High Dose 2018-03-29 00:00:00 Completed [facility] Influenza High Dose 2018-03-29 00:00:00 Completed [facility] Influenza High Dose 2018-03-29 00:00:00 Completed [facility] Influenza High Dose 2018-03-29 00:00:00 Completed [facility] Influenza High Dose 2018-03-29 00:00:00 Completed [facility] Influenza High Dose 2018-03-29 00:00:00 Completed [facility] Influenza High Dose 2018-03-29 00:00:00 Completed [facility] Influenza High Dose 2018-03-29 00:00:00 Completed [facility] Influenza High Dose 2018-03-29 00:00:00 Completed [facility] Influenza High Dose 2018-03-29 00:00:00 Completed [facility] Influenza High Dose 2018-03-29 00:00:00 Completed [facility] Influenza High Dose 2018-03-29 00:00:00 Completed [facility] Influenza High Dose 2018-03-29 00:00:00 Completed [facility] Influenza High Dose 2018-03-29 00:00:00 Completed [facility] Influenza High Dose 2018-03-29 00:00:00 Completed [facility] Influenza High Dose 2018-03-29 00:00:00 Completed [facility] Influenza High Dose 2018-03-29 00:00:00 Completed [facility] Influenza High Dose 2018-03-29 00:00:00 Completed [facility] Influenza High Dose 2018-03-29 00:00:00 Completed [facility] Influenza High Dose 2018-03-29 00:00:00 Completed [facility] Influenza High Dose 2018-03-29 00:00:00 Completed [facility] Influenza High Dose 2018-03-29 00:00:00 Completed [facility] Influenza High Dose 2018-03-29 00:00:00 Completed [facility] Influenza High Dose 2018-03-29 00:00:00 Completed [facility] Influenza High Dose 2018-03-29 00:00:00 Completed [facility] Influenza High Dose 2018-03-29 00:00:00 Completed [facility] Influenza High Dose 2018-03-29 00:00:00 Completed [facility] Influenza High Dose 2018-03-29 00:00:00 Completed [facility] Influenza High Dose 2018-03-29 00:00:00 Completed [facility] Influenza High Dose 2018-03-29 00:00:00 Completed [facility] Influenza High Dose 2018-03-29 00:00:00 Completed [facility] Influenza High Dose 2018-03-29 00:00:00 Completed [facility] Influenza High Dose 2018-03-29 00:00:00 Completed [facility] Influenza High Dose 2018-03-29 00:00:00 Completed [facility] Influenza High Dose 2018-03-29 00:00:00 Completed [facility] Influenza High Dose 2018-03-29 00:00:00 Completed [facility] Influenza High Dose 2018-03-29 00:00:00 Completed [facility] Influenza High Dose 2018-03-29 00:00:00 Completed [facility] Influenza High Dose 2018-03-29 00:00:00 Completed [facility] Influenza High Dose 2018-03-29 00:00:00 Completed [facility] Influenza High Dose 2018-03-29 00:00:00 Completed [facility] Influenza High Dose 2018-03-29 00:00:00 Completed [facility] Influenza High Dose 2018-03-29 00:00:00 Completed [facility] Influenza High Dose 2018-03-29 00:00:00 Completed [facility] Influenza High Dose 2018-03-29 00:00:00 Completed [facility] Influenza High Dose 2018-03-29 00:00:00 Completed [facility] Influenza High Dose 2018-03-29 00:00:00 Completed [facility] Influenza High Dose 2018-03-29 00:00:00 Completed [facility] Influenza High Dose 2018-03-29 00:00:00 Completed [facility] Influenza High Dose 2018-03-29 00:00:00 Completed [facility] Influenza High Dose 2018-03-29 00:00:00 Completed [facility] Influenza High Dose 2018-03-29 00:00:00 Completed [facility] Influenza High Dose 2018-03-29 00:00:00 Completed [facility] Influenza High Dose 2018-03-29 00:00:00 Completed [facility] Influenza High Dose 2018-03-29 00:00:00 Completed [facility] Influenza High Dose 2018-03-29 00:00:00 Completed [facility] Influenza High Dose 2018-03-29 00:00:00 Completed [facility] Influenza High Dose 2018-03-29 00:00:00 Completed [facility] Influenza High Dose 2018-03-29 00:00:00 Completed [facility] Influenza High Dose 2018-03-29 00:00:00 Completed [facility] Influenza High Dose 2018-03-29 00:00:00 Completed [facility] Influenza High Dose 2018-03-29 00:00:00 Completed [facility] Influenza High Dose 2017-04-07 00:00:00 Completed [facility] Influenza High Dose 2017-04-07 00:00:00 Completed [facility] Influenza High Dose 2017-04-07 00:00:00 Completed [facility] Influenza High Dose 2017-04-07 00:00:00 Completed [facility] Influenza High Dose 2017-04-07 00:00:00 Completed [facility] Influenza High Dose 2017-04-07 00:00:00 Completed [facility] Influenza High Dose 2017-04-07 00:00:00 Completed [facility] Influenza High Dose 2017-04-07 00:00:00 Completed [facility] Influenza High Dose 2017-04-07 00:00:00 Completed [facility] Influenza High Dose 2017-04-07 00:00:00 Completed [facility] Influenza High Dose 2017-04-07 00:00:00 Completed [facility] Influenza High Dose 2017-04-07 00:00:00 Completed [facility] Influenza High Dose 2017-04-07 00:00:00 Completed [facility] Influenza High Dose 2017-04-07 00:00:00 Completed [facility] Influenza High Dose 2017-04-07 00:00:00 Completed [facility] Influenza High Dose 2017-04-07 00:00:00 Completed [facility] Influenza High Dose 2017-04-07 00:00:00 Completed [facility] Influenza High Dose 2017-04-07 00:00:00 Completed [facility] Influenza High Dose 2017-04-07 00:00:00 Completed [facility] Influenza High Dose 2017-04-07 00:00:00 Completed [facility] Influenza High Dose 2017-04-07 00:00:00 Completed [facility] Influenza High Dose 2017-04-07 00:00:00 Completed [facility] Influenza High Dose 2017-04-07 00:00:00 Completed [facility] Influenza High Dose 2017-04-07 00:00:00 Completed [facility] Influenza High Dose 2017-04-07 00:00:00 Completed [facility] Influenza High Dose 2017-04-07 00:00:00 Completed [facility] Influenza High Dose 2017-04-07 00:00:00 Completed [facility] Influenza High Dose 2017-04-07 00:00:00 Completed [facility] Influenza High Dose 2017-04-07 00:00:00 Completed [facility] Influenza High Dose 2017-04-07 00:00:00 Completed [facility] Influenza High Dose 2017-04-07 00:00:00 Completed [facility] Influenza High Dose 2017-04-07 00:00:00 Completed [facility] Influenza High Dose 2017-04-07 00:00:00 Completed [facility] Influenza High Dose 2017-04-07 00:00:00 Completed [facility] Influenza High Dose 2017-04-07 00:00:00 Completed [facility] Influenza High Dose 2017-04-07 00:00:00 Completed [facility] Influenza High Dose 2017-04-07 00:00:00 Completed [facility] Influenza High Dose 2017-04-07 00:00:00 Completed [facility] Influenza High Dose 2017-04-07 00:00:00 Completed [facility] Influenza High Dose 2017-04-07 00:00:00 Completed [facility] Influenza High Dose 2017-04-07 00:00:00 Completed [facility] Influenza High Dose 2017-04-07 00:00:00 Completed [facility] Influenza High Dose 2017-04-07 00:00:00 Completed [facility] Influenza High Dose 2017-04-07 00:00:00 Completed [facility] Influenza High Dose 2017-04-07 00:00:00 Completed [facility] Influenza High Dose 2017-04-07 00:00:00 Completed [facility] Influenza High Dose 2017-04-07 00:00:00 Completed [facility] Influenza High Dose 2017-04-07 00:00:00 Completed [facility] Influenza High Dose 2017-04-07 00:00:00 Completed [facility] Influenza High Dose 2017-04-07 00:00:00 Completed [facility] Influenza High Dose 2017-04-07 00:00:00 Completed [facility] Influenza High Dose 2017-04-07 00:00:00 Completed [facility] Influenza High Dose 2017-04-07 00:00:00 Completed [facility] Influenza High Dose 2017-04-07 00:00:00 Completed [facility] Influenza High Dose 2017-04-07 00:00:00 Completed [facility] Influenza High Dose 2017-04-07 00:00:00 Completed [facility] Influenza High Dose 2017-04-07 00:00:00 Completed [facility] Influenza High Dose 2017-04-07 00:00:00 Completed [facility] Influenza High Dose 2017-04-07 00:00:00 Completed [facility] Influenza High Dose 2017-04-07 00:00:00 Completed [facility] Influenza High Dose 2017-04-07 00:00:00 Completed [facility] Influenza High Dose 2017-04-07 00:00:00 Completed [facility] Influenza High Dose 2017-04-07 00:00:00 Completed [facility] Influenza High Dose 2017-04-07 00:00:00 Completed [facility] Influenza High Dose 2017-04-07 00:00:00 Completed [facility] Influenza High Dose 2017-04-07 00:00:00 Completed [facility] Influenza High Dose 2017-04-07 00:00:00 Completed [facility] Influenza High Dose 2017-04-07 00:00:00 Completed [facility] Influenza High Dose 2017-04-07 00:00:00 Completed [facility] Influenza High Dose 2017-04-07 00:00:00 Completed [facility] Influenza High Dose 2017-04-07 00:00:00 Completed [facility] Influenza High Dose 2017-04-07 00:00:00 Completed [facility] Influenza High Dose 2017-04-07 00:00:00 Completed [facility] Influenza High Dose 2017-04-07 00:00:00 Completed [facility] Influenza High Dose 2017-04-07 00:00:00 Completed [facility] Influenza High Dose 2017-04-07 00:00:00 Completed [facility] Influenza High Dose 2017-04-07 00:00:00 Completed [facility] Influenza High Dose 2017-04-07 00:00:00 Completed [facility] Influenza High Dose 2017-04-07 00:00:00 Completed [facility] Influenza High Dose 2017-04-07 00:00:00 Completed [facility] Influenza High Dose 2017-04-07 00:00:00 Completed [facility] Influenza High Dose 2017-04-07 00:00:00 Completed [facility] Influenza High Dose 2017-04-07 00:00:00 Completed [facility] Influenza High Dose 2017-04-07 00:00:00 Completed [facility] Influenza High Dose 2017-04-07 00:00:00 Completed [facility] Influenza High Dose 2017-04-07 00:00:00 Completed [facility] Influenza High Dose 2017-04-07 00:00:00 Completed [facility] Influenza High Dose 2016-01-29 00:00:00 Completed [facility] Influenza High Dose 2016-01-29 00:00:00 Completed [facility] Influenza High Dose 2016-01-29 00:00:00 Completed [facility] Influenza High Dose 2016-01-29 00:00:00 Completed [facility] Influenza High Dose 2016-01-29 00:00:00 Completed [facility] Influenza High Dose 2016-01-29 00:00:00 Completed [facility] Influenza High Dose 2016-01-29 00:00:00 Completed [facility] Influenza High Dose 2016-01-29 00:00:00 Completed [facility] Influenza High Dose 2016-01-29 00:00:00 Completed [facility] Influenza High Dose 2016-01-29 00:00:00 Completed [facility] Influenza High Dose 2016-01-29 00:00:00 Completed [facility] Influenza High Dose 2016-01-29 00:00:00 Completed [facility] Influenza High Dose 2016-01-29 00:00:00 Completed [facility] Influenza High Dose 2016-01-29 00:00:00 Completed [facility] Influenza High Dose 2016-01-29 00:00:00 Completed [facility] Influenza High Dose 2016-01-29 00:00:00 Completed [facility] Influenza High Dose 2016-01-29 00:00:00 Completed [facility] Influenza High Dose 2016-01-29 00:00:00 Completed [facility] Influenza High Dose 2016-01-29 00:00:00 Completed [facility] Influenza High Dose 2016-01-29 00:00:00 Completed [facility] Influenza High Dose 2016-01-29 00:00:00 Completed [facility] Influenza High Dose 2016-01-29 00:00:00 Completed [facility] Influenza High Dose 2016-01-29 00:00:00 Completed [facility] Influenza High Dose 2016-01-29 00:00:00 Completed [facility] Influenza High Dose 2016-01-29 00:00:00 Completed [facility] Influenza High Dose 2016-01-29 00:00:00 Completed [facility] Influenza High Dose 2016-01-29 00:00:00 Completed [facility] Influenza High Dose 2016-01-29 00:00:00 Completed [facility] Influenza High Dose 2016-01-29 00:00:00 Completed [facility] Influenza High Dose 2016-01-29 00:00:00 Completed [facility] Influenza High Dose 2016-01-29 00:00:00 Completed [facility] Influenza High Dose 2016-01-29 00:00:00 Completed [facility] Influenza High Dose 2016-01-29 00:00:00 Completed [facility] Influenza High Dose 2016-01-29 00:00:00 Completed [facility] Influenza High Dose 2016-01-29 00:00:00 Completed [facility] Influenza High Dose 2016-01-29 00:00:00 Completed [facility] Influenza High Dose 2016-01-29 00:00:00 Completed [facility] Influenza High Dose 2016-01-29 00:00:00 Completed [facility] Influenza High Dose 2016-01-29 00:00:00 Completed [facility] Influenza High Dose 2016-01-29 00:00:00 Completed [facility] Influenza High Dose 2016-01-29 00:00:00 Completed [facility] Influenza High Dose 2016-01-29 00:00:00 Completed [facility] Influenza High Dose 2016-01-29 00:00:00 Completed [facility] Influenza High Dose 2016-01-29 00:00:00 Completed [facility] Influenza High Dose 2016-01-29 00:00:00 Completed [facility] Influenza High Dose 2016-01-29 00:00:00 Completed [facility] Influenza High Dose 2016-01-29 00:00:00 Completed [facility] Influenza High Dose 2016-01-29 00:00:00 Completed [facility] Influenza High Dose 2016-01-29 00:00:00 Completed [facility] Influenza High Dose 2016-01-29 00:00:00 Completed [facility] Influenza High Dose 2016-01-29 00:00:00 Completed [facility] Influenza High Dose 2016-01-29 00:00:00 Completed [facility] Influenza High Dose 2016-01-29 00:00:00 Completed [facility] Influenza High Dose 2016-01-29 00:00:00 Completed [facility] Influenza High Dose 2016-01-29 00:00:00 Completed [facility] Influenza High Dose 2016-01-29 00:00:00 Completed [facility] Influenza High Dose 2016-01-29 00:00:00 Completed [facility] Influenza High Dose 2016-01-29 00:00:00 Completed [facility] Influenza High Dose 2016-01-29 00:00:00 Completed [facility] Influenza High Dose 2016-01-29 00:00:00 Completed [facility] Influenza High Dose 2016-01-29 00:00:00 Completed [facility] Influenza High Dose 2016-01-29 00:00:00 Completed [facility] Influenza High Dose 2016-01-29 00:00:00 Completed [facility] Influenza High Dose 2016-01-29 00:00:00 Completed [facility] Influenza High Dose 2016-01-29 00:00:00 Completed [facility] Influenza High Dose 2016-01-29 00:00:00 Completed [facility] Influenza High Dose 2016-01-29 00:00:00 Completed [facility] Influenza High Dose 2016-01-29 00:00:00 Completed [facility] Influenza High Dose 2016-01-29 00:00:00 Completed [facility] Influenza High Dose 2016-01-29 00:00:00 Completed [facility] Influenza High Dose 2016-01-29 00:00:00 Completed [facility] Influenza High Dose 2016-01-29 00:00:00 Completed [facility] Influenza High Dose 2016-01-29 00:00:00 Completed [facility] Influenza High Dose 2016-01-29 00:00:00 Completed [facility] Influenza High Dose 2016-01-29 00:00:00 Completed [facility] Influenza High Dose 2016-01-29 00:00:00 Completed [facility] Influenza High Dose 2016-01-29 00:00:00 Completed [facility] Influenza High Dose 2016-01-29 00:00:00 Completed [facility] Influenza High Dose 2016-01-29 00:00:00 Completed [facility] Influenza High Dose 2016-01-29 00:00:00 Completed [facility] Influenza High Dose 2016-01-29 00:00:00 Completed [facility] Influenza High Dose 2016-01-29 00:00:00 Completed [facility] Influenza High Dose 2016-01-29 00:00:00 Completed [facility] Influenza High Dose 2016-01-29 00:00:00 Completed [facility] Influenza High Dose 2016-01-29 00:00:00 Completed [facility] Influenza High Dose 2016-01-29 00:00:00 Completed [facility] Influenza High Dose 2016-01-29 00:00:00 Completed [facility] Influenza High Dose 2015-02-06 00:00:00 Completed [facility] Influenza High Dose 2015-02-06 00:00:00 Completed [facility] Influenza High Dose 2015-02-06 00:00:00 Completed [facility] Influenza High Dose 2015-02-06 00:00:00 Completed [facility] Influenza High Dose 2015-02-06 00:00:00 Completed [facility] Influenza High Dose 2015-02-06 00:00:00 Completed [facility] Influenza High Dose 2015-02-06 00:00:00 Completed [facility] Influenza High Dose 2015-02-06 00:00:00 Completed [facility] Influenza High Dose 2015-02-06 00:00:00 Completed [facility] Influenza High Dose 2015-02-06 00:00:00 Completed [facility] Influenza High Dose 2015-02-06 00:00:00 Completed [facility] Influenza High Dose 2015-02-06 00:00:00 Completed [facility] Influenza High Dose 2015-02-06 00:00:00 Completed [facility] Influenza High Dose 2015-02-06 00:00:00 Completed [facility] Influenza High Dose 2015-02-06 00:00:00 Completed [facility] Influenza High Dose 2015-02-06 00:00:00 Completed [facility] Influenza High Dose 2015-02-06 00:00:00 Completed [facility] Influenza High Dose 2015-02-06 00:00:00 Completed [facility] Influenza High Dose 2015-02-06 00:00:00 Completed [facility] Influenza High Dose 2015-02-06 00:00:00 Completed [facility] Influenza High Dose 2015-02-06 00:00:00 Completed [facility] Influenza High Dose 2015-02-06 00:00:00 Completed [facility] Influenza High Dose 2015-02-06 00:00:00 Completed [facility] Influenza High Dose 2015-02-06 00:00:00 Completed [facility] Influenza High Dose 2015-02-06 00:00:00 Completed [facility] Influenza High Dose 2015-02-06 00:00:00 Completed [facility] Influenza High Dose 2015-02-06 00:00:00 Completed [facility] Influenza High Dose 2015-02-06 00:00:00 Completed [facility] Influenza High Dose 2015-02-06 00:00:00 Completed [facility] Influenza High Dose 2015-02-06 00:00:00 Completed [facility] Influenza High Dose 2015-02-06 00:00:00 Completed [facility] Influenza High Dose 2015-02-06 00:00:00 Completed [facility] Influenza High Dose 2015-02-06 00:00:00 Completed [facility] Influenza High Dose 2015-02-06 00:00:00 Completed [facility] Influenza High Dose 2015-02-06 00:00:00 Completed [facility] Influenza High Dose 2015-02-06 00:00:00 Completed [facility] Influenza High Dose 2015-02-06 00:00:00 Completed [facility] Influenza High Dose 2015-02-06 00:00:00 Completed [facility] Influenza High Dose 2015-02-06 00:00:00 Completed [facility] Influenza High Dose 2015-02-06 00:00:00 Completed [facility] Influenza High Dose 2015-02-06 00:00:00 Completed [facility] Influenza High Dose 2015-02-06 00:00:00 Completed [facility] Influenza High Dose 2015-02-06 00:00:00 Completed [facility] Influenza High Dose 2015-02-06 00:00:00 Completed [facility] Influenza High Dose 2015-02-06 00:00:00 Completed [facility] Influenza High Dose 2015-02-06 00:00:00 Completed [facility] Influenza High Dose 2015-02-06 00:00:00 Completed [facility] Influenza High Dose 2015-02-06 00:00:00 Completed [facility] Influenza High Dose 2015-02-06 00:00:00 Completed [facility] Influenza High Dose 2015-02-06 00:00:00 Completed [facility] Influenza High Dose 2015-02-06 00:00:00 Completed [facility] Influenza High Dose 2015-02-06 00:00:00 Completed [facility] Influenza High Dose 2015-02-06 00:00:00 Completed [facility] Influenza High Dose 2015-02-06 00:00:00 Completed [facility] Influenza High Dose 2015-02-06 00:00:00 Completed [facility] Influenza High Dose 2015-02-06 00:00:00 Completed [facility] Influenza High Dose 2015-02-06 00:00:00 Completed [facility] Influenza High Dose 2015-02-06 00:00:00 Completed [facility] Influenza High Dose 2015-02-06 00:00:00 Completed [facility] Influenza High Dose 2015-02-06 00:00:00 Completed [facility] Influenza High Dose 2015-02-06 00:00:00 Completed [facility] Influenza High Dose 2015-02-06 00:00:00 Completed [facility] Influenza High Dose 2015-02-06 00:00:00 Completed [facility] Influenza High Dose 2015-02-06 00:00:00 Completed [facility] Influenza High Dose 2015-02-06 00:00:00 Completed [facility] Influenza High Dose 2015-02-06 00:00:00 Completed [facility] Influenza High Dose 2015-02-06 00:00:00 Completed [facility] Influenza High Dose 2015-02-06 00:00:00 Completed [facility] Influenza High Dose 2015-02-06 00:00:00 Completed [facility] Influenza High Dose 2015-02-06 00:00:00 Completed [facility] Influenza High Dose 2015-02-06 00:00:00 Completed [facility] Influenza High Dose 2015-02-06 00:00:00 Completed [facility] Influenza High Dose 2015-02-06 00:00:00 Completed [facility] Influenza High Dose 2015-02-06 00:00:00 Completed [facility] Influenza High Dose 2015-02-06 00:00:00 Completed [facility] Influenza High Dose 2015-02-06 00:00:00 Completed [facility] Influenza High Dose 2015-02-06 00:00:00 Completed [facility] Influenza High Dose 2015-02-06 00:00:00 Completed [facility] Influenza High Dose 2015-02-06 00:00:00 Completed [facility] Influenza High Dose 2015-02-06 00:00:00 Completed [facility] Influenza High Dose 2015-02-06 00:00:00 Completed [facility] Influenza High Dose 2015-02-06 00:00:00 Completed [facility] Influenza High Dose 2015-02-06 00:00:00 Completed [facility] Influenza High Dose 2015-02-06 00:00:00 Completed [facility] Influenza High Dose 2015-02-06 00:00:00 Completed [facility] Influenza High Dose 2015-02-06 00:00:00 Completed [facility] Influenza High Dose 2015-02-06 00:00:00 Completed [facility] Influenza Virus Vaccine Quad IM 3+ YRS 2015-01-16 00:00:00 Completed [facility] Influenza Virus Vaccine Quad IM 3+ YRS 2015-01-16 00:00:00 Completed [facility] Influenza Virus Vaccine Quad IM 3+ YRS 2015-01-16 00:00:00 Completed [facility] Influenza Virus Vaccine Quad IM 3+ YRS 2015-01-16 00:00:00 Completed [facility] Influenza Virus Vaccine Quad IM 3+ YRS 2015-01-16 00:00:00 Completed [facility] Influenza Virus Vaccine Quad IM 3+ YRS 2015-01-16 00:00:00 Completed [facility] Influenza Virus Vaccine Quad IM 3+ YRS 2015-01-16 00:00:00 Completed [facility] Influenza Virus Vaccine Quad IM 3+ YRS 2015-01-16 00:00:00 Completed [facility] Influenza Virus Vaccine Quad IM 3+ YRS 2015-01-16 00:00:00 Completed [facility] Influenza Virus Vaccine Quad IM 3+ YRS 2015-01-16 00:00:00 Completed [facility] Influenza Virus Vaccine Quad IM 3+ YRS 2015-01-16 00:00:00 Completed [facility] Influenza Virus Vaccine Quad IM 3+ YRS 2015-01-16 00:00:00 Completed [facility] Influenza Virus Vaccine Quad IM 3+ YRS 2015-01-16 00:00:00 Completed [facility] Influenza Virus Vaccine Quad IM 3+ YRS 2015-01-16 00:00:00 Completed [facility] Influenza Virus Vaccine Quad IM 3+ YRS 2015-01-16 00:00:00 Completed [facility] Influenza Virus Vaccine Quad IM 3+ YRS 2015-01-16 00:00:00 Completed [facility] Influenza Virus Vaccine Quad IM 3+ YRS 2015-01-16 00:00:00 Completed [facility] Influenza Virus Vaccine Quad IM 3+ YRS 2015-01-16 00:00:00 Completed [facility] Influenza Virus Vaccine Quad IM 3+ YRS 2015-01-16 00:00:00 Completed [facility] Influenza Virus Vaccine Quad IM 3+ YRS 2015-01-16 00:00:00 Completed [facility] Influenza Virus Vaccine Quad IM 3+ YRS 2015-01-16 00:00:00 Completed [facility] Influenza Virus Vaccine Quad IM 3+ YRS 2015-01-16 00:00:00 Completed [facility] Influenza Virus Vaccine Quad IM 3+ YRS 2015-01-16 00:00:00 Completed [facility] Influenza Virus Vaccine Quad IM 3+ YRS 2015-01-16 00:00:00 Completed [facility] Influenza Virus Vaccine Quad IM 3+ YRS 2015-01-16 00:00:00 Completed [facility] Influenza Virus Vaccine Quad IM 3+ YRS 2015-01-16 00:00:00 Completed [facility] Influenza Virus Vaccine Quad IM 3+ YRS 2015-01-16 00:00:00 Completed [facility] Influenza Virus Vaccine Quad IM 3+ YRS 2015-01-16 00:00:00 Completed [facility] Influenza Virus Vaccine Quad IM 3+ YRS 2015-01-16 00:00:00 Completed [facility] Influenza Virus Vaccine Quad IM 3+ YRS 2015-01-16 00:00:00 Completed [facility] Influenza Virus Vaccine Quad IM 3+ YRS 2015-01-16 00:00:00 Completed [facility] Influenza Virus Vaccine Quad IM 3+ YRS 2015-01-16 00:00:00 Completed [facility] Influenza Virus Vaccine Quad IM 3+ YRS 2015-01-16 00:00:00 Completed [facility] Influenza Virus Vaccine Quad IM 3+ YRS 2015-01-16 00:00:00 Completed [facility] Influenza Virus Vaccine Quad IM 3+ YRS 2015-01-16 00:00:00 Completed [facility] Influenza Virus Vaccine Quad IM 3+ YRS 2015-01-16 00:00:00 Completed [facility] Influenza Virus Vaccine Quad IM 3+ YRS 2015-01-16 00:00:00 Completed [facility] Influenza Virus Vaccine Quad IM 3+ YRS 2015-01-16 00:00:00 Completed [facility] Influenza Virus Vaccine Quad IM 3+ YRS 2015-01-16 00:00:00 Completed [facility] Influenza Virus Vaccine Quad IM 3+ YRS 2015-01-16 00:00:00 Completed [facility] Influenza Virus Vaccine Quad IM 3+ YRS 2015-01-16 00:00:00 Completed [facility] Influenza Virus Vaccine Quad IM 3+ YRS 2015-01-16 00:00:00 Completed [facility] Influenza Virus Vaccine Quad IM 3+ YRS 2015-01-16 00:00:00 Completed [facility] Influenza Virus Vaccine Quad IM 3+ YRS 2015-01-16 00:00:00 Completed [facility] Influenza Virus Vaccine Quad IM 3+ YRS 2015-01-16 00:00:00 Completed [facility] Influenza Virus Vaccine Quad IM 3+ YRS 2015-01-16 00:00:00 Completed [facility] Influenza Virus Vaccine Quad IM 3+ YRS 2015-01-16 00:00:00 Completed [facility] Influenza Virus Vaccine Quad IM 3+ YRS 2015-01-16 00:00:00 Completed [facility] Influenza Virus Vaccine Quad IM 3+ YRS 2015-01-16 00:00:00 Completed [facility] Influenza Virus Vaccine Quad IM 3+ YRS 2015-01-16 00:00:00 Completed [facility] Influenza Virus Vaccine Quad IM 3+ YRS 2015-01-16 00:00:00 Completed [facility] Influenza Virus Vaccine Quad IM 3+ YRS 2015-01-16 00:00:00 Completed [facility] Influenza Virus Vaccine Quad IM 3+ YRS 2015-01-16 00:00:00 Completed [facility] Influenza Virus Vaccine Quad IM 3+ YRS 2015-01-16 00:00:00 Completed [facility] Influenza Virus Vaccine Quad IM 3+ YRS 2015-01-16 00:00:00 Completed [facility] Influenza Virus Vaccine Quad IM 3+ YRS 2015-01-16 00:00:00 Completed [facility] Influenza Virus Vaccine Quad IM 3+ YRS 2015-01-16 00:00:00 Completed [facility] Influenza Virus Vaccine Quad IM 3+ YRS 2015-01-16 00:00:00 Completed [facility] Influenza Virus Vaccine Quad IM 3+ YRS 2015-01-16 00:00:00 Completed [facility] Influenza Virus Vaccine Quad IM 3+ YRS 2015-01-16 00:00:00 Completed [facility] Influenza Virus Vaccine Quad IM 3+ YRS 2015-01-16 00:00:00 Completed [facility] Influenza Virus Vaccine Quad IM 3+ YRS 2015-01-16 00:00:00 Completed [facility] Influenza Virus Vaccine Quad IM 3+ YRS 2015-01-16 00:00:00 Completed [facility] Influenza Virus Vaccine Quad IM 3+ YRS 2015-01-16 00:00:00 Completed [facility] Influenza Virus Vaccine Quad IM 3+ YRS 2015-01-16 00:00:00 Completed [facility] Influenza Virus Vaccine Quad IM 3+ YRS 2015-01-16 00:00:00 Completed [facility] Influenza Virus Vaccine Quad IM 3+ YRS 2015-01-16 00:00:00 Completed [facility] Influenza Virus Vaccine Quad IM 3+ YRS 2015-01-16 00:00:00 Completed [facility] Influenza Virus Vaccine Quad IM 3+ YRS 2015-01-16 00:00:00 Completed [facility] Influenza Virus Vaccine Quad IM 3+ YRS 2015-01-16 00:00:00 Completed [facility] Influenza Virus Vaccine Quad IM 3+ YRS 2015-01-16 00:00:00 Completed [facility] Influenza Virus Vaccine Quad IM 3+ YRS 2015-01-16 00:00:00 Completed [facility] Influenza Virus Vaccine Quad IM 3+ YRS 2015-01-16 00:00:00 Completed [facility] Influenza Virus Vaccine Quad IM 3+ YRS 2015-01-16 00:00:00 Completed [facility] Influenza Virus Vaccine Quad IM 3+ YRS 2015-01-16 00:00:00 Completed [facility] Influenza Virus Vaccine Quad IM 3+ YRS 2015-01-16 00:00:00 Completed [facility] Influenza Virus Vaccine Quad IM 3+ YRS 2015-01-16 00:00:00 Completed [facility] Influenza Virus Vaccine Quad IM 3+ YRS 2015-01-16 00:00:00 Completed [facility] Influenza Virus Vaccine Quad IM 3+ YRS 2015-01-16 00:00:00 Completed [facility] Influenza Virus Vaccine Quad IM 3+ YRS 2015-01-16 00:00:00 Completed [facility] Influenza Virus Vaccine Quad IM 3+ YRS 2015-01-16 00:00:00 Completed [facility] Influenza Virus Vaccine Quad IM 3+ YRS 2015-01-16 00:00:00 Completed [facility] Influenza Virus Vaccine Quad IM 3+ YRS 2015-01-16 00:00:00 Completed [facility] Influenza Virus Vaccine Quad IM 3+ YRS 2015-01-16 00:00:00 Completed [facility] Influenza Virus Vaccine Quad IM 3+ YRS 2015-01-16 00:00:00 Completed [facility] Influenza Virus Vaccine Quad IM 3+ YRS 2015-01-16 00:00:00 Completed [facility] Influenza Virus Vaccine Quad IM 3+ YRS 2015-01-16 00:00:00 Completed [facility] Hep B, Adol or Pedi Dosage 2014-09-18 00:00:00 Completed [facility] Hep B, Adol or Pedi Dosage 2014-09-18 00:00:00 Completed [facility] Hep B, Adol or Pedi Dosage 2014-09-18 00:00:00 Completed [facility] Hep B, Adol or Pedi Dosage 2014-09-18 00:00:00 Completed [facility] Hep B, Adol or Pedi Dosage 2014-09-18 00:00:00 Completed [facility] Hep B, Adol or Pedi Dosage 2014-09-18 00:00:00 Completed [facility] Hep B, Adol or Pedi Dosage 2014-09-18 00:00:00 Completed [facility] Hep B, Adol or Pedi Dosage 2014-09-18 00:00:00 Completed [facility] Hep B, Adol or Pedi Dosage 2014-09-18 00:00:00 Completed [facility] Hep B, Adol or Pedi Dosage 2014-09-18 00:00:00 Completed [facility] Hep B, Adol or Pedi Dosage 2014-09-18 00:00:00 Completed [facility] Hep B, Adol or Pedi Dosage 2014-09-18 00:00:00 Completed [facility] Hep B, Adol or Pedi Dosage 2014-09-18 00:00:00 Completed [facility] Hep B, Adol or Pedi Dosage 2014-09-18 00:00:00 Completed [facility] Hep B, Adol or Pedi Dosage 2014-09-18 00:00:00 Completed [facility] Hep B, Adol or Pedi Dosage 2014-09-18 00:00:00 Completed [facility] Hep B, Adol or Pedi Dosage 2014-09-18 00:00:00 Completed [facility] Hep B, Adol or Pedi Dosage 2014-09-18 00:00:00 Completed [facility] Hep B, Adol or Pedi Dosage 2014-09-18 00:00:00 Completed [facility] Hep B, Adol or Pedi Dosage 2014-09-18 00:00:00 Completed [facility] Hep B, Adol or Pedi Dosage 2014-09-18 00:00:00 Completed [facility] Hep B, Adol or Pedi Dosage 2014-09-18 00:00:00 Completed [facility] Hep B, Adol or Pedi Dosage 2014-09-18 00:00:00 Completed [facility] Hep B, Adol or Pedi Dosage 2014-09-18 00:00:00 Completed [facility] Hep B, Adol or Pedi Dosage 2014-09-18 00:00:00 Completed [facility] Hep B, Adol or Pedi Dosage 2014-09-18 00:00:00 Completed [facility] Hep B, Adol or Pedi Dosage 2014-09-18 00:00:00 Completed [facility] Hep B, Adol or Pedi Dosage 2014-09-18 00:00:00 Completed [facility] Hep B, Adol or Pedi Dosage 2014-09-18 00:00:00 Completed [facility] Hep B, Adol or Pedi Dosage 2014-09-18 00:00:00 Completed [facility] Hep B, Adol or Pedi Dosage 2014-09-18 00:00:00 Completed [facility] Hep B, Adol or Pedi Dosage 2014-09-18 00:00:00 Completed [facility] Hep B, Adol or Pedi Dosage 2014-09-18 00:00:00 Completed [facility] Hep B, Adol or Pedi Dosage 2014-09-18 00:00:00 Completed [facility] Hep B, Adol or Pedi Dosage 2014-09-18 00:00:00 Completed [facility] Hep B, Adol or Pedi Dosage 2014-09-18 00:00:00 Completed [facility] Hep B, Adol or Pedi Dosage 2014-09-18 00:00:00 Completed [facility] Hep B, Adol or Pedi Dosage 2014-09-18 00:00:00 Completed [facility] Hep B, Adol or Pedi Dosage 2014-09-18 00:00:00 Completed [facility] Hep B, Adol or Pedi Dosage 2014-09-18 00:00:00 Completed [facility] Hep B, Adol or Pedi Dosage 2014-09-18 00:00:00 Completed [facility] Hep B, Adol or Pedi Dosage 2014-09-18 00:00:00 Completed [facility] Hep B, Adol or Pedi Dosage 2014-09-18 00:00:00 Completed [facility] Hep B, Adol or Pedi Dosage 2014-09-18 00:00:00 Completed [facility] Hep B, Adol or Pedi Dosage 2014-09-18 00:00:00 Completed [facility] Hep B, Adol or Pedi Dosage 2014-09-18 00:00:00 Completed [facility] Hep B, Adol or Pedi Dosage 2014-09-18 00:00:00 Completed [facility] Hep B, Adol or Pedi Dosage 2014-09-18 00:00:00 Completed [facility] Hep B, Adol or Pedi Dosage 2014-09-18 00:00:00 Completed [facility] Hep B, Adol or Pedi Dosage 2014-09-18 00:00:00 Completed [facility] Hep B, Adol or Pedi Dosage 2014-09-18 00:00:00 Completed [facility] Hep B, Adol or Pedi Dosage 2014-09-18 00:00:00 Completed [facility] Hep B, Adol or Pedi Dosage 2014-09-18 00:00:00 Completed [facility] Hep B, Adol or Pedi Dosage 2014-09-18 00:00:00 Completed [facility] Hep B, Adol or Pedi Dosage 2014-09-18 00:00:00 Completed [facility] Hep B, Adol or Pedi Dosage 2014-09-18 00:00:00 Completed [facility] Hep B, Adol or Pedi Dosage 2014-09-18 00:00:00 Completed [facility] Hep B, Adol or Pedi Dosage 2014-09-18 00:00:00 Completed [facility] Hep B, Adol or Pedi Dosage 2014-09-18 00:00:00 Completed [facility] Hep B, Adol or Pedi Dosage 2014-09-18 00:00:00 Completed [facility] Hep B, Adol or Pedi Dosage 2014-09-18 00:00:00 Completed [facility] Hep B, Adol or Pedi Dosage 2014-09-18 00:00:00 Completed [facility] Hep B, Adol or Pedi Dosage 2014-09-18 00:00:00 Completed [facility] Hep B, Adol or Pedi Dosage 2014-09-18 00:00:00 Completed [facility] Hep B, Adol or Pedi Dosage 2014-09-18 00:00:00 Completed [facility] Hep B, Adol or Pedi Dosage 2014-09-18 00:00:00 Completed [facility] Hep B, Adol or Pedi Dosage 2014-09-18 00:00:00 Completed [facility] Hep B, Adol or Pedi Dosage 2014-09-18 00:00:00 Completed [facility] Hep B, Adol or Pedi Dosage 2014-09-18 00:00:00 Completed [facility] Hep B, Adol or Pedi Dosage 2014-09-18 00:00:00 Completed [facility] Hep B, Adol or Pedi Dosage 2014-09-18 00:00:00 Completed [facility] Hep B, Adol or Pedi Dosage 2014-09-18 00:00:00 Completed [facility] Hep B, Adol or Pedi Dosage 2014-09-18 00:00:00 Completed [facility] Hep B, Adol or Pedi Dosage 2014-09-18 00:00:00 Completed [facility] Hep B, Adol or Pedi Dosage 2014-09-18 00:00:00 Completed [facility] Hep B, Adol or Pedi Dosage 2014-09-18 00:00:00 Completed [facility] Hep B, Adol or Pedi Dosage 2014-09-18 00:00:00 Completed [facility] Hep B, Adol or Pedi Dosage 2014-09-18 00:00:00 Completed [facility] Hep B, Adol or Pedi Dosage 2014-09-18 00:00:00 Completed [facility] Hep B, Adol or Pedi Dosage 2014-09-18 00:00:00 Completed [facility] Hep B, Adol or Pedi Dosage 2014-09-18 00:00:00 Completed [facility] Hep B, Adol or Pedi Dosage 2014-09-18 00:00:00 Completed [facility] Hep B, Adol or Pedi Dosage 2014-09-18 00:00:00 Completed [facility] Hep B, Adol or Pedi Dosage 2014-09-18 00:00:00 Completed [facility] Hep B, Adol or Pedi Dosage 2014-09-18 00:00:00 Completed [facility] Hep B, Adol or Pedi Dosage 2014-09-18 00:00:00 Completed [facility] Hep B, Adol or Pedi Dosage 2014-09-18 00:00:00 Completed [facility] Influenza Virus Vaccine 2011-02-05 00:00:00 Completed [facility] Influenza Virus Vaccine 2011-02-05 00:00:00 Completed [facility] Influenza Virus Vaccine 2011-02-05 00:00:00 Completed [facility] Influenza Virus Vaccine 2011-02-05 00:00:00 Completed [facility] Influenza Virus Vaccine 2011-02-05 00:00:00 Completed [facility] Influenza Virus Vaccine 2011-02-05 00:00:00 Completed [facility] Influenza Virus Vaccine 2011-02-05 00:00:00 Completed [facility] Influenza Virus Vaccine 2011-02-05 00:00:00 Completed [facility] Influenza Virus Vaccine 2011-02-05 00:00:00 Completed [facility] Influenza Virus Vaccine 2011-02-05 00:00:00 Completed [facility] Influenza Virus Vaccine 2011-02-05 00:00:00 Completed [facility] Influenza Virus Vaccine 2011-02-05 00:00:00 Completed [facility] Influenza Virus Vaccine 2011-02-05 00:00:00 Completed [facility] Influenza Virus Vaccine 2011-02-05 00:00:00 Completed [facility] Influenza Virus Vaccine 2011-02-05 00:00:00 Completed [facility] Influenza Virus Vaccine 2011-02-05 00:00:00 Completed [facility] Influenza Virus Vaccine 2011-02-05 00:00:00 Completed [facility] Influenza Virus Vaccine 2011-02-05 00:00:00 Completed [facility] Influenza Virus Vaccine 2011-02-05 00:00:00 Completed [facility] Influenza Virus Vaccine 2011-02-05 00:00:00 Completed [facility] Influenza Virus Vaccine 2011-02-05 00:00:00 Completed [facility] Influenza Virus Vaccine 2011-02-05 00:00:00 Completed [facility] Influenza Virus Vaccine 2011-02-05 00:00:00 Completed [facility] Influenza Virus Vaccine 2011-02-05 00:00:00 Completed [facility] Influenza Virus Vaccine 2011-02-05 00:00:00 Completed [facility] Influenza Virus Vaccine 2011-02-05 00:00:00 Completed [facility] Influenza Virus Vaccine 2011-02-05 00:00:00 Completed [facility] Influenza Virus Vaccine 2011-02-05 00:00:00 Completed [facility] Influenza Virus Vaccine 2011-02-05 00:00:00 Completed [facility] Influenza Virus Vaccine 2011-02-05 00:00:00 Completed [facility] Influenza Virus Vaccine 2011-02-05 00:00:00 Completed [facility] Influenza Virus Vaccine 2011-02-05 00:00:00 Completed [facility] Influenza Virus Vaccine 2011-02-05 00:00:00 Completed [facility] Influenza Virus Vaccine 2011-02-05 00:00:00 Completed [facility] Influenza Virus Vaccine 2011-02-05 00:00:00 Completed [facility] Influenza Virus Vaccine 2011-02-05 00:00:00 Completed [facility] Influenza Virus Vaccine 2011-02-05 00:00:00 Completed [facility] Influenza Virus Vaccine 2011-02-05 00:00:00 Completed [facility] Influenza Virus Vaccine 2011-02-05 00:00:00 Completed [facility] Influenza Virus Vaccine 2011-02-05 00:00:00 Completed [facility] Influenza Virus Vaccine 2011-02-05 00:00:00 Completed [facility] Influenza Virus Vaccine 2011-02-05 00:00:00 Completed [facility] Influenza Virus Vaccine 2011-02-05 00:00:00 Completed [facility] Influenza Virus Vaccine 2011-02-05 00:00:00 Completed [facility] Influenza Virus Vaccine 2011-02-05 00:00:00 Completed [facility] Influenza Virus Vaccine 2011-02-05 00:00:00 Completed [facility] Influenza Virus Vaccine 2011-02-05 00:00:00 Completed [facility] Influenza Virus Vaccine 2011-02-05 00:00:00 Completed [facility] Influenza Virus Vaccine 2011-02-05 00:00:00 Completed [facility] Influenza Virus Vaccine 2011-02-05 00:00:00 Completed [facility] Influenza Virus Vaccine 2011-02-05 00:00:00 Completed [facility] Influenza Virus Vaccine 2011-02-05 00:00:00 Completed [facility] Influenza Virus Vaccine 2011-02-05 00:00:00 Completed [facility] Influenza Virus Vaccine 2011-02-05 00:00:00 Completed [facility] Influenza Virus Vaccine 2011-02-05 00:00:00 Completed [facility] Influenza Virus Vaccine 2011-02-05 00:00:00 Completed [facility] Influenza Virus Vaccine 2011-02-05 00:00:00 Completed [facility] Influenza Virus Vaccine 2011-02-05 00:00:00 Completed [facility] Influenza Virus Vaccine 2011-02-05 00:00:00 Completed [facility] Influenza Virus Vaccine 2011-02-05 00:00:00 Completed [facility] Influenza Virus Vaccine 2011-02-05 00:00:00 Completed [facility] Influenza Virus Vaccine 2011-02-05 00:00:00 Completed [facility] Influenza Virus Vaccine 2011-02-05 00:00:00 Completed [facility] Influenza Virus Vaccine 2011-02-05 00:00:00 Completed [facility] Influenza Virus Vaccine 2011-02-05 00:00:00 Completed [facility] Influenza Virus Vaccine 2011-02-05 00:00:00 Completed [facility] Influenza Virus Vaccine 2011-02-05 00:00:00 Completed [facility] Influenza Virus Vaccine 2011-02-05 00:00:00 Completed [facility] Influenza Virus Vaccine 2011-02-05 00:00:00 Completed [facility] Influenza Virus Vaccine 2011-02-05 00:00:00 Completed [facility] Influenza Virus Vaccine 2011-02-05 00:00:00 Completed [facility] Influenza Virus Vaccine 2011-02-05 00:00:00 Completed [facility] Influenza Virus Vaccine 2011-02-05 00:00:00 Completed [facility] Influenza Virus Vaccine 2011-02-05 00:00:00 Completed [facility] Influenza Virus Vaccine 2011-02-05 00:00:00 Completed [facility] Influenza Virus Vaccine 2011-02-05 00:00:00 Completed [facility] Influenza Virus Vaccine 2011-02-05 00:00:00 Completed [facility] Influenza Virus Vaccine 2011-02-05 00:00:00 Completed [facility] Influenza Virus Vaccine 2011-02-05 00:00:00 Completed [facility] Influenza Virus Vaccine 2011-02-05 00:00:00 Completed [facility] Influenza Virus Vaccine 2011-02-05 00:00:00 Completed [facility] Influenza Virus Vaccine 2011-02-05 00:00:00 Completed [facility] Influenza Virus Vaccine 2011-02-05 00:00:00 Completed [facility] Influenza Virus Vaccine 2011-02-05 00:00:00 Completed [facility] Influenza Virus Vaccine 2011-02-05 00:00:00 Completed [facility] Influenza Virus Vaccine 2011-02-05 00:00:00 Completed [facility] Influenza Virus Vaccine 2011-02-05 00:00:00 Completed [facility] Influenza Virus Vaccine 2010-04-10 00:00:00 Completed [facility] Influenza Virus Vaccine 2010-04-10 00:00:00 Completed [facility] Influenza Virus Vaccine 2010-04-10 00:00:00 Completed [facility] Influenza Virus Vaccine 2010-04-10 00:00:00 Completed [facility] Influenza Virus Vaccine 2010-04-10 00:00:00 Completed [facility] Influenza Virus Vaccine 2010-04-10 00:00:00 Completed [facility] Influenza Virus Vaccine 2010-04-10 00:00:00 Completed [facility] Influenza Virus Vaccine 2010-04-10 00:00:00 Completed [facility] Influenza Virus Vaccine 2010-04-10 00:00:00 Completed [facility] Influenza Virus Vaccine 2010-04-10 00:00:00 Completed [facility] Influenza Virus Vaccine 2010-04-10 00:00:00 Completed [facility] Influenza Virus Vaccine 2010-04-10 00:00:00 Completed [facility] Influenza Virus Vaccine 2010-04-10 00:00:00 Completed [facility] Influenza Virus Vaccine 2010-04-10 00:00:00 Completed [facility] Influenza Virus Vaccine 2010-04-10 00:00:00 Completed [facility] Influenza Virus Vaccine 2010-04-10 00:00:00 Completed [facility] Influenza Virus Vaccine 2010-04-10 00:00:00 Completed [facility] Influenza Virus Vaccine 2010-04-10 00:00:00 Completed [facility] Influenza Virus Vaccine 2010-04-10 00:00:00 Completed [facility] Influenza Virus Vaccine 2010-04-10 00:00:00 Completed [facility] Influenza Virus Vaccine 2010-04-10 00:00:00 Completed [facility] Influenza Virus Vaccine 2010-04-10 00:00:00 Completed [facility] Influenza Virus Vaccine 2010-04-10 00:00:00 Completed [facility] Influenza Virus Vaccine 2010-04-10 00:00:00 Completed [facility] Influenza Virus Vaccine 2010-04-10 00:00:00 Completed [facility] Influenza Virus Vaccine 2010-04-10 00:00:00 Completed [facility] Influenza Virus Vaccine 2010-04-10 00:00:00 Completed [facility] Influenza Virus Vaccine 2010-04-10 00:00:00 Completed [facility] Influenza Virus Vaccine 2010-04-10 00:00:00 Completed [facility] Influenza Virus Vaccine 2010-04-10 00:00:00 Completed [facility] Influenza Virus Vaccine 2010-04-10 00:00:00 Completed [facility] Influenza Virus Vaccine 2010-04-10 00:00:00 Completed [facility] Influenza Virus Vaccine 2010-04-10 00:00:00 Completed [facility] Influenza Virus Vaccine 2010-04-10 00:00:00 Completed [facility] Influenza Virus Vaccine 2010-04-10 00:00:00 Completed [facility] Influenza Virus Vaccine 2010-04-10 00:00:00 Completed [facility] Influenza Virus Vaccine 2010-04-10 00:00:00 Completed [facility] Influenza Virus Vaccine 2010-04-10 00:00:00 Completed [facility] Influenza Virus Vaccine 2010-04-10 00:00:00 Completed [facility] Influenza Virus Vaccine 2010-04-10 00:00:00 Completed [facility] Influenza Virus Vaccine 2010-04-10 00:00:00 Completed [facility] Influenza Virus Vaccine 2010-04-10 00:00:00 Completed [facility] Influenza Virus Vaccine 2010-04-10 00:00:00 Completed [facility] Influenza Virus Vaccine 2010-04-10 00:00:00 Completed [facility] Influenza Virus Vaccine 2010-04-10 00:00:00 Completed [facility] Influenza Virus Vaccine 2010-04-10 00:00:00 Completed [facility] Influenza Virus Vaccine 2010-04-10 00:00:00 Completed [facility] Influenza Virus Vaccine 2010-04-10 00:00:00 Completed [facility] Influenza Virus Vaccine 2010-04-10 00:00:00 Completed [facility] Influenza Virus Vaccine 2010-04-10 00:00:00 Completed [facility] Influenza Virus Vaccine 2010-04-10 00:00:00 Completed [facility] Influenza Virus Vaccine 2010-04-10 00:00:00 Completed [facility] Influenza Virus Vaccine 2010-04-10 00:00:00 Completed [facility] Influenza Virus Vaccine 2010-04-10 00:00:00 Completed [facility] Influenza Virus Vaccine 2010-04-10 00:00:00 Completed [facility] Influenza Virus Vaccine 2010-04-10 00:00:00 Completed [facility] Influenza Virus Vaccine 2010-04-10 00:00:00 Completed [facility] Influenza Virus Vaccine 2010-04-10 00:00:00 Completed [facility] Influenza Virus Vaccine 2010-04-10 00:00:00 Completed [facility] Influenza Virus Vaccine 2010-04-10 00:00:00 Completed [facility] Influenza Virus Vaccine 2010-04-10 00:00:00 Completed [facility] Influenza Virus Vaccine 2010-04-10 00:00:00 Completed [facility] Influenza Virus Vaccine 2010-04-10 00:00:00 Completed [facility] Influenza Virus Vaccine 2010-04-10 00:00:00 Completed [facility] Influenza Virus Vaccine 2010-04-10 00:00:00 Completed [facility] Influenza Virus Vaccine 2010-04-10 00:00:00 Completed [facility] Influenza Virus Vaccine 2010-04-10 00:00:00 Completed [facility] Influenza Virus Vaccine 2010-04-10 00:00:00 Completed [facility] Influenza Virus Vaccine 2010-04-10 00:00:00 Completed [facility] Influenza Virus Vaccine 2010-04-10 00:00:00 Completed [facility] Influenza Virus Vaccine 2010-04-10 00:00:00 Completed [facility] Influenza Virus Vaccine 2010-04-10 00:00:00 Completed [facility] Influenza Virus Vaccine 2010-04-10 00:00:00 Completed [facility] Influenza Virus Vaccine 2010-04-10 00:00:00 Completed [facility] Influenza Virus Vaccine 2010-04-10 00:00:00 Completed [facility] Influenza Virus Vaccine 2010-04-10 00:00:00 Completed [facility] Influenza Virus Vaccine 2010-04-10 00:00:00 Completed [facility] Influenza Virus Vaccine 2010-04-10 00:00:00 Completed [facility] Influenza Virus Vaccine 2010-04-10 00:00:00 Completed [facility] Influenza Virus Vaccine 2010-04-10 00:00:00 Completed [facility] Influenza Virus Vaccine 2010-04-10 00:00:00 Completed [facility] Influenza Virus Vaccine 2010-04-10 00:00:00 Completed [facility] Influenza Virus Vaccine 2010-04-10 00:00:00 Completed [facility] Influenza Virus Vaccine 2010-04-10 00:00:00 Completed [facility] Influenza Virus Vaccine 2010-04-10 00:00:00 Completed [facility] Influenza Virus Vaccine 2010-04-10 00:00:00 Completed [facility] Influenza Virus Vaccine 2010-04-10 00:00:00 Completed [facility] H1n1 Vaccine 2009-04-02 00:00:00 Completed [facility] H1n1 Vaccine 2009-04-02 00:00:00 Completed [facility] H1n1 Vaccine 2009-04-02 00:00:00 Completed [facility] H1n1 Vaccine 2009-04-02 00:00:00 Completed [facility] H1n1 Vaccine 2009-04-02 00:00:00 Completed [facility] H1n1 Vaccine 2009-04-02 00:00:00 Completed [facility] H1n1 Vaccine 2009-04-02 00:00:00 Completed [facility] H1n1 Vaccine 2009-04-02 00:00:00 Completed [facility] H1n1 Vaccine 2009-04-02 00:00:00 Completed [facility] H1n1 Vaccine 2009-04-02 00:00:00 Completed [facility] H1n1 Vaccine 2009-04-02 00:00:00 Completed [facility] H1n1 Vaccine 2009-04-02 00:00:00 Completed [facility] H1n1 Vaccine 2009-04-02 00:00:00 Completed [facility] H1n1 Vaccine 2009-04-02 00:00:00 Completed [facility] H1n1 Vaccine 2009-04-02 00:00:00 Completed [facility] H1n1 Vaccine 2009-04-02 00:00:00 Completed [facility] H1n1 Vaccine 2009-04-02 00:00:00 Completed [facility] H1n1 Vaccine 2009-04-02 00:00:00 Completed [facility] H1n1 Vaccine 2009-04-02 00:00:00 Completed [facility] H1n1 Vaccine 2009-04-02 00:00:00 Completed [facility] H1n1 Vaccine 2009-04-02 00:00:00 Completed [facility] H1n1 Vaccine 2009-04-02 00:00:00 Completed [facility] H1n1 Vaccine 2009-04-02 00:00:00 Completed [facility] H1n1 Vaccine 2009-04-02 00:00:00 Completed [facility] H1n1 Vaccine 2009-04-02 00:00:00 Completed [facility] H1n1 Vaccine 2009-04-02 00:00:00 Completed [facility] H1n1 Vaccine 2009-04-02 00:00:00 Completed [facility] H1n1 Vaccine 2009-04-02 00:00:00 Completed [facility] H1n1 Vaccine 2009-04-02 00:00:00 Completed [facility] H1n1 Vaccine 2009-04-02 00:00:00 Completed [facility] H1n1 Vaccine 2009-04-02 00:00:00 Completed [facility] H1n1 Vaccine 2009-04-02 00:00:00 Completed [facility] H1n1 Vaccine 2009-04-02 00:00:00 Completed [facility] H1n1 Vaccine 2009-04-02 00:00:00 Completed [facility] H1n1 Vaccine 2009-04-02 00:00:00 Completed [facility] H1n1 Vaccine 2009-04-02 00:00:00 Completed [facility] H1n1 Vaccine 2009-04-02 00:00:00 Completed [facility] H1n1 Vaccine 2009-04-02 00:00:00 Completed [facility] H1n1 Vaccine 2009-04-02 00:00:00 Completed [facility] H1n1 Vaccine 2009-04-02 00:00:00 Completed [facility] H1n1 Vaccine 2009-04-02 00:00:00 Completed [facility] H1n1 Vaccine 2009-04-02 00:00:00 Completed [facility] H1n1 Vaccine 2009-04-02 00:00:00 Completed [facility] H1n1 Vaccine 2009-04-02 00:00:00 Completed [facility] H1n1 Vaccine 2009-04-02 00:00:00 Completed [facility] H1n1 Vaccine 2009-04-02 00:00:00 Completed [facility] H1n1 Vaccine 2009-04-02 00:00:00 Completed [facility] H1n1 Vaccine 2009-04-02 00:00:00 Completed [facility] H1n1 Vaccine 2009-04-02 00:00:00 Completed [facility] H1n1 Vaccine 2009-04-02 00:00:00 Completed [facility] H1n1 Vaccine 2009-04-02 00:00:00 Completed [facility] H1n1 Vaccine 2009-04-02 00:00:00 Completed [facility] H1n1 Vaccine 2009-04-02 00:00:00 Completed [facility] H1n1 Vaccine 2009-04-02 00:00:00 Completed [facility] H1n1 Vaccine 2009-04-02 00:00:00 Completed [facility] H1n1 Vaccine 2009-04-02 00:00:00 Completed [facility] H1n1 Vaccine 2009-04-02 00:00:00 Completed [facility] H1n1 Vaccine 2009-04-02 00:00:00 Completed [facility] H1n1 Vaccine 2009-04-02 00:00:00 Completed [facility] H1n1 Vaccine 2009-04-02 00:00:00 Completed [facility] H1n1 Vaccine 2009-04-02 00:00:00 Completed [facility] H1n1 Vaccine 2009-04-02 00:00:00 Completed [facility] H1n1 Vaccine 2009-04-02 00:00:00 Completed [facility] H1n1 Vaccine 2009-04-02 00:00:00 Completed [facility] H1n1 Vaccine 2009-04-02 00:00:00 Completed [facility] H1n1 Vaccine 2009-04-02 00:00:00 Completed [facility] H1n1 Vaccine 2009-04-02 00:00:00 Completed [facility] H1n1 Vaccine 2009-04-02 00:00:00 Completed [facility] H1n1 Vaccine 2009-04-02 00:00:00 Completed [facility] H1n1 Vaccine 2009-04-02 00:00:00 Completed [facility] H1n1 Vaccine 2009-04-02 00:00:00 Completed [facility] H1n1 Vaccine 2009-04-02 00:00:00 Completed [facility] H1n1 Vaccine 2009-04-02 00:00:00 Completed [facility] H1n1 Vaccine 2009-04-02 00:00:00 Completed [facility] H1n1 Vaccine 2009-04-02 00:00:00 Completed [facility] [place] H1n1 Vaccine 2009-04-02 00:00:00 Completed [facility] H1n1 Vaccine 2009-04-02 00:00:00 Completed [facility] H1n1 Vaccine 2009-04-02 00:00:00 Completed [facility] H1n1 Vaccine 2009-04-02 00:00:00 Completed [facility] H1n1 Vaccine 2009-04-02 00:00:00 Completed [facility] H1n1 Vaccine 2009-04-02 00:00:00 Completed [facility] H1n1 Vaccine 2009-04-02 00:00:00 Completed [facility] H1n1 Vaccine 2009-04-02 00:00:00 Completed [facility] H1n1 Vaccine 2009-04-02 00:00:00 Completed [facility] H1n1 Vaccine 2009-04-02 00:00:00 Completed [facility] H1n1 Vaccine 2009-04-02 00:00:00 Completed [facility] H1n1 Vaccine 2009-04-02 00:00:00 Completed [facility] Influenza Virus Vaccine 2009-02-14 00:00:00 Completed [facility] Influenza Virus Vaccine 2009-02-14 00:00:00 Completed [facility] Influenza Virus Vaccine 2009-02-14 00:00:00 Completed [facility] Influenza Virus Vaccine 2009-02-14 00:00:00 Completed [facility] Influenza Virus Vaccine 2009-02-14 00:00:00 Completed [facility] Influenza Virus Vaccine 2009-02-14 00:00:00 Completed [facility] Influenza Virus Vaccine 2009-02-14 00:00:00 Completed [facility] Influenza Virus Vaccine 2009-02-14 00:00:00 Completed [facility] Influenza Virus Vaccine 2009-02-14 00:00:00 Completed [facility] Influenza Virus Vaccine 2009-02-14 00:00:00 Completed [facility] Influenza Virus Vaccine 2009-02-14 00:00:00 Completed [facility] Influenza Virus Vaccine 2009-02-14 00:00:00 Completed [facility] Influenza Virus Vaccine 2009-02-14 00:00:00 Completed [facility] Influenza Virus Vaccine 2009-02-14 00:00:00 Completed [facility] Influenza Virus Vaccine 2009-02-14 00:00:00 Completed [facility] Influenza Virus Vaccine 2009-02-14 00:00:00 Completed [facility] Influenza Virus Vaccine 2009-02-14 00:00:00 Completed [facility] Influenza Virus Vaccine 2009-02-14 00:00:00 Completed [facility] Influenza Virus Vaccine 2009-02-14 00:00:00 Completed [facility] Influenza Virus Vaccine 2009-02-14 00:00:00 Completed [facility] Influenza Virus Vaccine 2009-02-14 00:00:00 Completed [facility] Influenza Virus Vaccine 2009-02-14 00:00:00 Completed [facility] Influenza Virus Vaccine 2009-02-14 00:00:00 Completed [facility] Influenza Virus Vaccine 2009-02-14 00:00:00 Completed [facility] Influenza Virus Vaccine 2009-02-14 00:00:00 Completed [facility] Influenza Virus Vaccine 2009-02-14 00:00:00 Completed [facility] Influenza Virus Vaccine 2009-02-14 00:00:00 Completed [facility] Influenza Virus Vaccine 2009-02-14 00:00:00 Completed [facility] Influenza Virus Vaccine 2009-02-14 00:00:00 Completed [facility] Influenza Virus Vaccine 2009-02-14 00:00:00 Completed [facility] Influenza Virus Vaccine 2009-02-14 00:00:00 Completed [facility] Influenza Virus Vaccine 2009-02-14 00:00:00 Completed [facility] Influenza Virus Vaccine 2009-02-14 00:00:00 Completed [facility] Influenza Virus Vaccine 2009-02-14 00:00:00 Completed [facility] Influenza Virus Vaccine 2009-02-14 00:00:00 Completed [facility] Influenza Virus Vaccine 2009-02-14 00:00:00 Completed [facility] Influenza Virus Vaccine 2009-02-14 00:00:00 Completed [facility] Influenza Virus Vaccine 2009-02-14 00:00:00 Completed [facility] Influenza Virus Vaccine 2009-02-14 00:00:00 Completed [facility] Influenza Virus Vaccine 2009-02-14 00:00:00 Completed [facility] Influenza Virus Vaccine 2009-02-14 00:00:00 Completed [facility] Influenza Virus Vaccine 2009-02-14 00:00:00 Completed [facility] Influenza Virus Vaccine 2009-02-14 00:00:00 Completed [facility] Influenza Virus Vaccine 2009-02-14 00:00:00 Completed [facility] Influenza Virus Vaccine 2009-02-14 00:00:00 Completed [facility] Influenza Virus Vaccine 2009-02-14 00:00:00 Completed [facility] Influenza Virus Vaccine 2009-02-14 00:00:00 Completed [facility] Influenza Virus Vaccine 2009-02-14 00:00:00 Completed [facility] Influenza Virus Vaccine 2009-02-14 00:00:00 Completed [facility] Influenza Virus Vaccine 2009-02-14 00:00:00 Completed [facility] Influenza Virus Vaccine 2009-02-14 00:00:00 Completed [facility] Influenza Virus Vaccine 2009-02-14 00:00:00 Completed [facility] Influenza Virus Vaccine 2009-02-14 00:00:00 Completed [facility] Influenza Virus Vaccine 2009-02-14 00:00:00 Completed [facility] Influenza Virus Vaccine 2009-02-14 00:00:00 Completed [facility] Influenza Virus Vaccine 2009-02-14 00:00:00 Completed [facility] Influenza Virus Vaccine 2009-02-14 00:00:00 Completed [facility] Influenza Virus Vaccine 2009-02-14 00:00:00 Completed [facility] Influenza Virus Vaccine 2009-02-14 00:00:00 Completed [facility] Influenza Virus Vaccine 2009-02-14 00:00:00 Completed [facility] Influenza Virus Vaccine 2009-02-14 00:00:00 Completed [facility] Influenza Virus Vaccine 2009-02-14 00:00:00 Completed [facility] Influenza Virus Vaccine 2009-02-14 00:00:00 Completed [facility] Influenza Virus Vaccine 2009-02-14 00:00:00 Completed [facility] Influenza Virus Vaccine 2009-02-14 00:00:00 Completed [facility] Influenza Virus Vaccine 2009-02-14 00:00:00 Completed [facility] Influenza Virus Vaccine 2009-02-14 00:00:00 Completed [facility] Influenza Virus Vaccine 2009-02-14 00:00:00 Completed [facility] Influenza Virus Vaccine 2009-02-14 00:00:00 Completed [facility] Influenza Virus Vaccine 2009-02-14 00:00:00 Completed [facility] Influenza Virus Vaccine 2009-02-14 00:00:00 Completed [facility] Influenza Virus Vaccine 2009-02-14 00:00:00 Completed [facility] Influenza Virus Vaccine 2009-02-14 00:00:00 Completed [facility] Influenza Virus Vaccine 2009-02-14 00:00:00 Completed [facility] Influenza Virus Vaccine 2009-02-14 00:00:00 Completed [facility] Influenza Virus Vaccine 2009-02-14 00:00:00 Completed [facility] Influenza Virus Vaccine 2009-02-14 00:00:00 Completed [facility] Influenza Virus Vaccine 2009-02-14 00:00:00 Completed [facility] Influenza Virus Vaccine 2009-02-14 00:00:00 Completed [facility] Influenza Virus Vaccine 2009-02-14 00:00:00 Completed [facility] Influenza Virus Vaccine 2009-02-14 00:00:00 Completed [facility] Influenza Virus Vaccine 2009-02-14 00:00:00 Completed [facility] Influenza Virus Vaccine 2009-02-14 00:00:00 Completed [facility] Influenza Virus Vaccine 2009-02-14 00:00:00 Completed [facility] Influenza Virus Vaccine 2009-02-14 00:00:00 Completed [facility] Influenza Virus Vaccine 2009-02-14 00:00:00 Completed [facility] Influenza Virus Vaccine 2009-02-14 00:00:00 Completed [facility] Influenza Virus Vaccine 2007-05-24 00:00:00 Completed [facility] Influenza Virus Vaccine 2007-05-24 00:00:00 Completed [facility] Influenza Virus Vaccine 2007-05-24 00:00:00 Completed [facility] Influenza Virus Vaccine 2007-05-24 00:00:00 Completed [facility] Influenza Virus Vaccine 2007-05-24 00:00:00 Completed [facility] Influenza Virus Vaccine 2007-05-24 00:00:00 Completed [facility] Influenza Virus Vaccine 2007-05-24 00:00:00 Completed [facility] Influenza Virus Vaccine 2007-05-24 00:00:00 Completed [facility] Influenza Virus Vaccine 2007-05-24 00:00:00 Completed [facility] Influenza Virus Vaccine 2007-05-24 00:00:00 Completed [facility] Influenza Virus Vaccine 2007-05-24 00:00:00 Completed [facility] Influenza Virus Vaccine 2007-05-24 00:00:00 Completed [facility] Influenza Virus Vaccine 2007-05-24 00:00:00 Completed [facility] Influenza Virus Vaccine 2007-05-24 00:00:00 Completed [facility] Influenza Virus Vaccine 2007-05-24 00:00:00 Completed [facility] Influenza Virus Vaccine 2007-05-24 00:00:00 Completed [facility] Influenza Virus Vaccine 2007-05-24 00:00:00 Completed [facility] Influenza Virus Vaccine 2007-05-24 00:00:00 Completed [facility] Influenza Virus Vaccine 2007-05-24 00:00:00 Completed [facility] Influenza Virus Vaccine 2007-05-24 00:00:00 Completed [facility] Influenza Virus Vaccine 2007-05-24 00:00:00 Completed [facility] Influenza Virus Vaccine 2007-05-24 00:00:00 Completed [facility] Influenza Virus Vaccine 2007-05-24 00:00:00 Completed [facility] Influenza Virus Vaccine 2007-05-24 00:00:00 Completed [facility] Influenza Virus Vaccine 2007-05-24 00:00:00 Completed [facility] Influenza Virus Vaccine 2007-05-24 00:00:00 Completed [facility] Influenza Virus Vaccine 2007-05-24 00:00:00 Completed [facility] Influenza Virus Vaccine 2007-05-24 00:00:00 Completed [facility] Influenza Virus Vaccine 2007-05-24 00:00:00 Completed [facility] Influenza Virus Vaccine 2007-05-24 00:00:00 Completed [facility] Influenza Virus Vaccine 2007-05-24 00:00:00 Completed [facility] Influenza Virus Vaccine 2007-05-24 00:00:00 Completed [facility] Influenza Virus Vaccine 2007-05-24 00:00:00 Completed [facility] Influenza Virus Vaccine 2007-05-24 00:00:00 Completed [facility] Influenza Virus Vaccine 2007-05-24 00:00:00 Completed [facility] Influenza Virus Vaccine 2007-05-24 00:00:00 Completed [facility] Influenza Virus Vaccine 2007-05-24 00:00:00 Completed [facility] Influenza Virus Vaccine 2007-05-24 00:00:00 Completed [facility] Influenza Virus Vaccine 2007-05-24 00:00:00 Completed [facility] Influenza Virus Vaccine 2007-05-24 00:00:00 Completed [facility] Influenza Virus Vaccine 2007-05-24 00:00:00 Completed [facility] Influenza Virus Vaccine 2007-05-24 00:00:00 Completed [facility] Influenza Virus Vaccine 2007-05-24 00:00:00 Completed [facility] Influenza Virus Vaccine 2007-05-24 00:00:00 Completed [facility] Influenza Virus Vaccine 2007-05-24 00:00:00 Completed [facility] Influenza Virus Vaccine 2007-05-24 00:00:00 Completed [facility] Influenza Virus Vaccine 2007-05-24 00:00:00 Completed [facility] Influenza Virus Vaccine 2007-05-24 00:00:00 Completed [facility] Influenza Virus Vaccine 2007-05-24 00:00:00 Completed [facility] Influenza Virus Vaccine 2007-05-24 00:00:00 Completed [facility] Influenza Virus Vaccine 2007-05-24 00:00:00 Completed [facility] Influenza Virus Vaccine 2007-05-24 00:00:00 Completed [facility] Influenza Virus Vaccine 2007-05-24 00:00:00 Completed [facility] Influenza Virus Vaccine 2007-05-24 00:00[facility]00 [facility] [facility]ine 2007-05-24 00:00:00 Completed [facility] Influenza Virus Vaccine 2007-05-24 00:00:00 Completed [facility] Influenza Virus Vaccine 2007-05-24 00:00:00 Completed [facility] Influenza Virus Vaccine 2007-05-24 00:00:00 Completed [facility] Influenza Virus Vaccine 2007-05-24 00:00:00 Completed [facility] Influenza Virus Vaccine 2007-05-24 00:00:00 Completed [facility] Influenza Virus Vaccine 2007-05-24 00:00:00 Completed [facility] Influenza Virus Vaccine 2007-05-24 00:00:00 Completed [facility] Influenza Virus Vaccine 2007-05-24 00:00:00 Completed [facility] Influenza Virus Vaccine 2007-05-24 00:00:00 Completed [facility] Influenza Virus Vaccine 2007-05-24 00:00:00 Completed [facility] Influenza Virus Vaccine 2007-05-24 00:00:00 Completed [facility] Influenza Virus Vaccine 2007-05-24 00:00:00 Completed [facility] Influenza Virus Vaccine 2007-05-24 00:00:00 Completed [facility] Influenza Virus Vaccine 2007-05-24 00:00:00 Completed [facility] Influenza Virus Vaccine 2007-05-24 00:00:00 Completed [facility] Influenza Virus Vaccine 2007-05-24 00:00:00 Completed [facility] Influenza Virus Vaccine 2007-05-24 00:00:00 Completed [facility] Influenza Virus Vaccine 2007-05-24 00:00:00 Completed [facility] Influenza Virus Vaccine 2007-05-24 00:00:00 Completed [facility] Influenza Virus Vaccine 2007-05-24 00:00:00 Completed [facility] Influenza Virus Vaccine 2007-05-24 00:00:00 Completed [facility] Influenza Virus Vaccine 2007-05-24 00:00:00 Completed [facility] Influenza Virus Vaccine 2007-05-24 00:00:00 Completed [facility] Influenza Virus Vaccine 2007-05-24 00:00:00 Completed [facility] Influenza Virus Vaccine 2007-05-24 00:00:00 Completed [facility] Influenza Virus Vaccine 2007-05-24 00:00:00 Completed [facility] Influenza Virus Vaccine 2007-05-24 00:00:00 Completed [facility] Influenza Virus Vaccine 2007-05-24 00:00:00 Completed [facility] Influenza Virus Vaccine 2007-05-24 00:00:00 Completed [facility] Influenza Virus Vaccine 2007-05-24 00:00:00 Completed [facility] Influenza Virus Vaccine 2007-05-24 00:00:00 Completed [facility] Influenza Virus Vaccine 2007-05-24 00:00:00 Completed [facility] Influenza Virus Vaccine Unknown Completed [facility] Influenza Virus Vaccine Unknown Completed [facility] H1n1 Vaccine Unknown Completed [facility] Influenza Virus Vaccine Unknown Completed [facility] Influenza Virus Vaccine Unknown Completed [facility] Hep B, Adol or Pedi Dosage Unknown Completed [facility] Influenza Virus Vaccine Quad IM 3+ YRS Unknown Completed [facility] Influenza High Dose Unknown Completed [facility] Influenza High Dose Unknown Completed [facility] Influenza High Dose Unknown Completed [facility] Influenza High Dose Unknown Completed [facility] Influenza Virus Vaccine Quad .5 mL IM 6+ MO (FLUZONE/FLULAVAL/F LUARIX) Unknown Completed [facility] TDAP (ADACEL) VACCINE Unknown Completed [facility] Influenza Virus Vaccine Recomb Quad IM, Preserv and ABX Free 18-64 YRS Unknown Completed [facility] SARS-COV-2 COVID-19 PFIZER VACCINE Unknown Completed [facility] SARS-COV-2 COVID-19 PFIZER VACCINE Unknown Completed [facility] Influenza Virus Vaccine Quad IM, Preserv and ABX Free 6 MO-64 YRS (FLUCELVAX) Unknown Completed [facility] Pneumococcal Polysaccharide, PPSV23 (PNEUMOVAX) Unknown Completed [facility] Influenza Virus Vaccine Unknown Completed [facility] Influenza Virus Vaccine Unknown Completed [facility] H1n1 Vaccine Unknown Completed [facility] Influenza Virus Vaccine Unknown Completed [facility] Influenza Virus Vaccine Unknown Completed [facility] Hep B, Adol or Pedi Dosage Unknown Completed [facility] Influenza Virus Vaccine Quad IM 3+ YRS Unknown Completed [facility] Influenza High Dose Unknown Completed [facility] Influenza High Dose Unknown Completed [facility] Influenza High Dose Unknown Completed [facility] Influenza High Dose Unknown Completed [facility] Influenza Virus Vaccine Quad .5 mL IM 6+ MO (FLUZONE/FLULAVAL/F LUARIX) Unknown Completed [facility] TDAP (ADACEL) VACCINE Unknown Completed [facility] Influenza Virus Vaccine Recomb Quad IM, Preserv and ABX Free 18-64 YRS Unknown Completed [facility] SARS-COV-2 COVID-19 PFIZER VACCINE Unknown Completed [facility] SARS-COV-2 COVID-19 PFIZER VACCINE Unknown Completed [facility] Influenza Virus Vaccine Quad IM, Preserv and ABX Free 6 MO-64 YRS (FLUCELVAX) Unknown Completed [facility] Pneumococcal Polysaccharide, PPSV23 (PNEUMOVAX) Unknown Completed [facility] Influenza Virus Vaccine Unknown Completed [facility] Influenza Virus Vaccine Unknown Completed [facility] H1n1 Vaccine Unknown Completed [facility] Influenza Virus Vaccine Unknown Completed [facility] Influenza Virus Vaccine Unknown Completed [facility] Hep B, Adol or Pedi Dosage Unknown Completed [facility] Influenza Virus Vaccine Quad IM 3+ YRS Unknown Completed [facility] Influenza High Dose Unknown Completed [facility] Influenza High Dose Unknown Completed [facility] Influenza High Dose Unknown Completed [facility] Influenza High Dose Unknown Completed [facility] Influenza Virus Vaccine Quad .5 mL IM 6+ MO (FLUZONE/FLULAVAL/F LUARIX) Unknown Completed [facility] TDAP (ADACEL) VACCINE Unknown Completed [facility] Influenza Virus Vaccine Recomb Quad IM, Preserv and ABX Free 18-64 YRS Unknown Completed [facility] SARS-COV-2 COVID-19 PFIZER VACCINE Unknown Completed [facility] SARS-COV-2 COVID-19 PFIZER VACCINE Unknown Completed [facility] Influenza Virus Vaccine Quad IM, Preserv and ABX Free 6 MO-64 YRS (FLUCELVAX) Unknown Completed [facility] Pneumococcal Polysaccharide, PPSV23 (PNEUMOVAX) Unknown Completed [facility] Influenza Virus Vaccine Unknown Completed [facility] Influenza Virus Vaccine Unknown Completed [facility] H1n1 Vaccine Unknown Completed [facility] Influenza Virus Vaccine Unknown Completed [facility] Influenza Virus Vaccine Unknown Completed [facility] Hep B, Adol or Pedi Dosage Unknown Completed [facility] Influenza Virus Vaccine Quad IM 3+ YRS Unknown Completed [facility] Influenza High Dose Unknown Completed [facility] Influenza High Dose Unknown Completed [facility] Influenza High Dose Unknown Completed [facility] Influenza High Dose Unknown Completed [facility] Influenza Virus Vaccine Quad .5 mL IM 6+ MO (FLUZONE/FLULAVAL/F LUARIX) Unknown Completed [facility] TDAP (ADACEL) VACCINE Unknown Completed [facility] Influenza Virus Vaccine Recomb Quad IM, Preserv and ABX Free 18-64 YRS Unknown Completed [facility] SARS-COV-2 COVID-19 PFIZER VACCINE Unknown Completed [facility] SARS-COV-2 COVID-19 PFIZER VACCINE Unknown Completed [facility] Influenza Virus Vaccine Quad IM, Preserv and ABX Free 6 MO-64 YRS (FLUCELVAX) Unknown Completed [facility] Pneumococcal Polysaccharide, PPSV23 (PNEUMOVAX) [facility] Influ[facility] Vacc[facility] Completed [facility] Influenza Virus Vaccine Unknown Completed [facility] H1n1 Vaccine Unknown Completed [facility] Influenza Virus Vaccine Unknown Completed [facility] Influenza Virus Vaccine Unknown Completed [facility] Hep B, Adol or Pedi Dosage Unknown Completed [facility] Influenza Virus Vaccine Quad IM 3+ YRS Unknown Completed [facility] Influenza High Dose Unknown Completed [facility] Influenza High Dose Unknown Completed [facility] Influenza High Dose Unknown Completed [facility] Influenza High Dose Unknown Completed [facility] Influenza Virus Vaccine Quad .5 mL IM 6+ MO (FLUZONE/FLULAVAL/F LUARIX) Unknown Completed [facility] TDAP (ADACEL) VACCINE Unknown Completed [facility] Influenza Virus Vaccine Recomb Quad IM, Preserv and ABX Free 18-64 YRS Unknown Completed [facility] SARS-COV-2 COVID-19 PFIZER VACCINE Unknown Completed [facility] SARS-COV-2 COVID-19 PFIZER VACCINE Unknown Completed [facility] Influenza Virus Vaccine Quad IM, Preserv and ABX Free 6 MO-64 YRS (FLUCELVAX) Unknown Completed [facility] Pneumococcal Polysaccharide, PPSV23 (PNEUMOVAX) Unknown Completed [facility] Influenza Virus Vaccine Unknown Completed [facility] Influenza Virus Vaccine Unknown Completed [facility] H1n1 Vaccine Unknown Completed [facility] Influenza Virus Vaccine Unknown Completed [facility] Influenza Virus Vaccine Unknown Completed [facility] Hep B, Adol or Pedi Dosage Unknown Completed [facility] Influenza Virus Vaccine Quad IM 3+ YRS Unknown Completed [facility] Influenza High Dose Unknown Completed [facility] Influenza High Dose Unknown Completed [facility] Influenza High Dose Unknown Completed [facility] Influenza High Dose Unknown Completed [facility] Influenza Virus Vaccine Quad .5 mL IM 6+ MO (FLUZONE/FLULAVAL/F LUARIX) Unknown Completed [facility] TDAP (ADACEL) VACCINE Unknown Completed [facility] Influenza Virus Vaccine Recomb Quad IM, Preserv and ABX Free 18-64 YRS Unknown Completed [facility] SARS-COV-2 COVID-19 PFIZER VACCINE Unknown Completed [facility] SARS-COV-2 COVID-19 PFIZER VACCINE Unknown Completed [facility] Influenza Virus Vaccine Quad IM, Preserv and ABX Free 6 MO-64 YRS (FLUCELVAX) Unknown Completed [facility] Pneumococcal Polysaccharide, PPSV23 (PNEUMOVAX) Unknown [facility] Influenza Virus Vaccine Unknown Completed [facility] Influenza Virus Vaccine Unknown Completed [facility] H1n1 Vaccine Unknown Completed [facility] Influenza Virus Vaccine Unknown Completed [facility] Influenza Virus Vaccine Unknown Completed [facility] Hep B, Adol or Pedi Dosage Unknown Completed [facility] Influenza Virus Vaccine Quad IM 3+ YRS Unknown Completed [facility] Influenza High Dose Unknown Completed [facility] Influenza High Dose Unknown Completed [facility] Influenza High Dose Unknown Completed [facility] Influenza High Dose Unknown Completed [facility] Influenza Virus Vaccine Quad .5 mL IM 6+ MO (FLUZONE/FLULAVAL/F LUARIX) Unknown Completed [facility] TDAP (ADACEL) VACCINE Unknown Completed [facility] Influenza Virus Vaccine Recomb Quad IM, Preserv and ABX Free 18-64 YRS Unknown Completed [facility] SARS-COV-2 COVID-19 PFIZER VACCINE Unknown Completed [facility] SARS-COV-2 COVID-19 PFIZER VACCINE Unknown Completed [facility] Influenza Virus Vaccine Quad IM, Preserv and ABX Free 6 MO-64 YRS (FLUCELVAX) Unknown Completed [facility] Pneumococcal Polysaccharide, PPSV23 (PNEUMOVAX) Unknown [facility] Influenza Virus Vaccine Unknown Completed [facility] Influenza Virus Vaccine Unknown Completed [facility] H1n1 Vaccine Unknown Completed [facility] Influenza Virus Vaccine Unknown Completed [facility] Influenza Virus Vaccine Unknown Completed [facility] Hep B, Adol or Pedi Dosage Unknown Completed [facility] Influenza Virus Vaccine Quad IM 3+ YRS Unknown Completed [facility] Influenza High Dose Unknown Completed [facility] Influenza High Dose Unknown Completed [facility] Influenza High Dose Unknown Completed [facility] Influenza High Dose Unknown Completed [facility] Influenza Virus Vaccine Quad .5 mL IM 6+ MO (FLUZONE/FLULAVAL/F LUARIX) Unknown Completed [facility] TDAP (ADACEL) VACCINE Unknown Completed [facility] Influenza Virus Vaccine Recomb Quad IM, Preserv and ABX Free 18-64 YRS Unknown Completed [facility] SARS-COV-2 COVID-19 PFIZER VACCINE Unknown Completed [facility] SARS-COV-2 COVID-19 PFIZER VACCINE Unknown Completed [facility] Influenza Virus Vaccine Quad IM, Preserv and ABX Free 6 MO-64 YRS (FLUCELVAX) Unknown Completed [facility] Pneumococcal Polysaccharide, PPSV23 (PNEUMOVAX) Unknown Completed [facility] Influenza Virus Vaccine Unknown Completed [facility] Influenza Virus Vaccine Unknown Completed [facility] H1n1 Vaccine Unknown Completed [facility] Influenza Virus Vaccine Unknown Completed [facility] Influenza Virus Vaccine Unknown Completed [facility] Hep B, Adol or Pedi Dosage Unknown Completed [facility] Influenza Virus Vaccine Quad IM 3+ YRS Unknown Completed [facility] Influenza High Dose Unknown Completed [facility] Influenza High Dose Unknown Completed [facility] Influenza High Dose Unknown Completed [facility] Influenza High Dose Unknown Completed [facility] Influenza Virus Vaccine Quad .5 mL IM 6+ MO (FLUZONE/FLULAVAL/F LUARIX) Unknown Completed [facility] TDAP (ADACEL) VACCINE Unknown Completed [facility] Influenza Virus Vaccine Recomb Quad IM, Preserv and ABX Free 18-64 YRS Unknown Completed [facility] SARS-COV-2 COVID-19 PFIZER VACCINE Unknown Completed [facility] SARS-COV-2 COVID-19 PFIZER VACCINE Unknown Completed [facility] Influenza Virus Vaccine Quad IM, Preserv and ABX Free 6 MO-64 YRS (FLUCELVAX) Unknown Completed [facility] Pneumococcal Polysaccharide, PPSV23 (PNEUMOVAX) Unknown Completed [facility] Influenza Virus Vaccine Unknown Completed [facility] Influenza Virus Vaccine Unknown Completed [facility] H1n1 Vaccine Unknown Completed [facility] Influenza Virus Vaccine Unknown Completed [facility] Influenza Virus Vaccine Unknown Completed [facility] Hep B, Adol or Pedi Dosage Unknown Completed [facility] Influenza Virus Vaccine Quad IM 3+ YRS Unknown Completed [facility] Influenza High Dose Unknown Completed [facility] Influenza High Dose Unknown Completed [facility] Influenza High Dose Unknown Completed [facility] Influenza High Dose Unknown Completed [facility] Influenza Virus Vaccine Quad .5 mL IM 6+ MO (FLUZONE/FLULAVAL/F LUARIX) Unknown Completed [facility] TDAP (ADACEL) VACCINE Unknown Completed [facility] Influenza Virus Vaccine Recomb Quad IM, Preserv and ABX Free 18-64 YRS Unknown Completed [facility] SARS-COV-2 COVID-19 PFIZER VACCINE Unknown Completed [facility] SARS-COV-2 COVID-19 PFIZER VACCINE Unknown Completed [facility] Influenza Virus Vaccine Quad IM, Preserv and ABX Free 6 MO-64 YRS (FLUCELVAX) Unknown Completed [facility] Pneumococcal Polysaccharide, PPSV23 (PNEUMOVAX) Unknown [facility] Influenza Virus Vaccine Unknown Completed [facility] Influenza Virus Vaccine Unknown Completed [facility] H1n1 Vaccine Unknown Completed [facility] Influenza Virus Vaccine Unknown Completed [facility] Influenza Virus Vaccine Unknown Completed [facility] Hep B, Adol or Pedi Dosage Unknown Completed [facility] Influenza Virus Vaccine Quad IM 3+ YRS Unknown Completed [facility] Influenza High Dose Unknown Completed [facility] Influenza High Dose Unknown Completed [facility] Influenza High Dose Unknown Completed [facility] Influenza High Dose Unknown Completed [facility] Influenza Virus Vaccine Quad .5 mL IM 6+ MO (FLUZONE/FLULAVAL/F LUARIX) Unknown Completed [facility] TDAP (ADACEL) VACCINE Unknown Completed [facility] Influenza Virus Vaccine Recomb Quad IM, Preserv and ABX Free 18-64 YRS Unknown Completed [facility] SARS-COV-2 COVID-19 PFIZER VACCINE Unknown Completed [facility] SARS-COV-2 COVID-19 PFIZER VACCINE Unknown Completed [facility] Influenza Virus Vaccine Quad IM, Preserv and ABX Free 6 MO-64 YRS (FLUCELVAX) Unknown Completed [facility] Pneumococcal Polysaccharide, PPSV23 (PNEUMOVAX) Unknown Completed [facility] Influenza Virus Vaccine Unknown Completed [facility] Influenza Virus Vaccine Unknown Completed [facility] H1n1 Vaccine Unknown Completed [facility] Influenza Virus Vaccine Unknown Completed [facility] Influenza Virus Vaccine Unknown Completed [facility] Hep B, Adol or Pedi Dosage Unknown Completed [facility] Influenza Virus Vaccine Quad IM 3+ YRS Unknown Completed [facility] Influenza High Dose Unknown Completed [facility] Influenza High Dose Unknown Completed [facility] Influenza High Dose Unknown Completed [facility] Influenza High Dose Unknown Completed [facility] Influenza Virus Vaccine Quad .5 mL IM 6+ MO (FLUZONE/FLULAVAL/F LUARIX) Unknown Completed [facility] TDAP (ADACEL) VACCINE Unknown Completed [facility] Influenza Virus Vaccine Recomb Quad IM, Preserv and ABX Free 18-64 YRS Unknown Completed [facility] SARS-COV-2 COVID-19 PFIZER VACCINE Unknown Completed [facility] SARS-COV-2 COVID-19 PFIZER VACCINE Unknown Completed [facility] Influenza Virus Vaccine Quad IM, Preserv and ABX Free 6 MO-64 YRS (FLUCELVAX) Unknown Completed [facility] Pneumococcal Polysaccharide, PPSV23 (PNEUMOVAX) Unknown Completed [facility] Influenza Virus Vaccine Unknown Completed [facility] Influenza Virus Vaccine Unknown Completed [facility] H1n1 Vaccine Unknown Completed [facility] Influenza Virus Vaccine Unknown Completed [facility] Influenza Virus Vaccine Unknown Completed [facility] Hep B, Adol or Pedi Dosage Unknown Completed [facility] Influenza Virus Vaccine Quad IM 3+ YRS Unknown Completed [facility] Influenza High Dose Unknown Completed [facility] Influenza High Dose Unknown Completed [facility] Influenza High Dose Unknown Completed [facility] Influenza High Dose Unknown Completed [facility] Influenza Virus Vaccine Quad .5 mL IM 6+ MO (FLUZONE/FLULAVAL/F LUARIX) Unknown Completed [facility] TDAP (ADACEL) VACCINE Unknown Completed [facility] Influenza Virus Vaccine Recomb Quad IM, Preserv and ABX Free 18-64 YRS Unknown Completed [facility] SARS-COV-2 COVID-19 PFIZER VACCINE Unknown Completed [facility] SARS-COV-2 COVID-19 PFIZER VACCINE Unknown Completed [facility] Influenza Virus Vaccine Quad IM, Preserv and ABX Free 6 MO-64 YRS (FLUCELVAX) Unknown Completed [facility] Pneumococcal Polysaccharide, PPSV23 (PNEUMOVAX) Unknown Completed [facility] Influenza Virus Vaccine Unknown Completed [facility] Influenza Virus Vaccine Unknown Completed [facility] H1n1 Vaccine Unknown Completed [facility] Influenza Virus Vaccine Unknown Completed [facility] Influenza Virus Vaccine Unknown Completed [facility] Hep B, Adol or Pedi Dosage Unknown Completed [facility] Influenza Virus Vaccine Quad IM 3+ YRS Unknown Completed [facility] Influenza High Dose Unknown Completed [facility] Influenza High Dose Unknown Completed [facility] Influenza High Dose Unknown Completed [facility] Influenza High Dose Unknown Completed [facility] Influenza Virus Vaccine Quad .5 mL IM 6+ MO (FLUZONE/FLULAVAL/F LUARIX) Unknown Completed [facility] TDAP (ADACEL) VACCINE Unknown Completed [facility] Influenza Virus Vaccine Recomb Quad IM, Preserv and ABX Free 18-64 YRS Unknown Completed [facility] SARS-COV-2 COVID-19 PFIZER VACCINE Unknown Completed [facility] SARS-COV-2 COVID-19 PFIZER VACCINE Unknown Completed [facility] Influenza Virus Vaccine Quad IM, Preserv and ABX Free 6 MO-64 YRS (FLUCELVAX) Unknown Completed [facility] Pneumococcal Polysaccharide, PPSV23 (PNEUMOVAX) Unknown Completed [facility] Influenza Virus Vaccine Unknown Completed [facility] Influenza Virus Vaccine Unknown Completed [facility] H1n1 Vaccine Unknown Completed [facility] Influenza Virus Vaccine Unknown Completed [facility] Influenza Virus Vaccine Unknown Completed [facility] Hep B, Adol or Pedi Dosage Unknown Completed [facility] Influenza Virus Vaccine Quad IM 3+ YRS Unknown Completed [facility] Influenza High Dose Unknown Completed [facility] Influenza High Dose Unknown Completed [facility] Influenza High Dose Unknown Completed [facility] Influenza High Dose Unknown Completed [facility] Influenza Virus Vaccine Quad .5 mL IM 6+ MO (FLUZONE/FLULAVAL/F LUARIX) Unknown Completed [facility] TDAP (ADACEL) VACCINE Unknown Completed [facility] Influenza Virus Vaccine Recomb Quad IM, Preserv and ABX Free 18-64 YRS Unknown Completed [facility] SARS-COV-2 COVID-19 PFIZER VACCINE Unknown Completed [facility] SARS-COV-2 COVID-19 PFIZER VACCINE Unknown Completed [facility] Influenza Virus Vaccine Quad IM, Preserv and ABX Free 6 MO-64 YRS (FLUCELVAX) Unknown Completed [facility] Pneumococcal Polysaccharide, PPSV23 (PNEUMOVAX) Unknown [facility] Influenza Virus Vaccine Unknown Completed [facility] Influenza Virus Vaccine Unknown Completed [facility] H1n1 Vaccine Unknown Completed [facility] Influenza Virus Vaccine Unknown Completed [facility] Influenza Virus Vaccine Unknown Completed [facility] Hep B, Adol or Pedi Dosage Unknown Completed [facility] Influenza Virus Vaccine Quad IM 3+ YRS Unknown Completed [facility] Influenza High Dose Unknown Completed [facility] Influenza High Dose Unknown Completed [facility] Influenza High Dose Unknown Completed [facility] Influenza High Dose Unknown Completed [facility] Influenza Virus Vaccine Quad .5 mL IM 6+ MO (FLUZONE/FLULAVAL/F LUARIX) Unknown Completed [facility] TDAP (ADACEL) VACCINE Unknown Completed [facility] Influenza Virus Vaccine Recomb Quad IM, Preserv and ABX Free 18-64 YRS Unknown Completed [facility] SARS-COV-2 COVID-19 PFIZER VACCINE Unknown Completed [facility] SARS-COV-2 COVID-19 PFIZER VACCINE Unknown Completed [facility] Influenza Virus Vaccine Quad IM, Preserv and ABX Free 6 MO-64 YRS (FLUCELVAX) Unknown Completed [facility] Pneumococcal Polysaccharide, PPSV23 (PNEUMOVAX) [facility] Completed [facility] Influenza Virus Vaccine Unknown Completed [facility] H1n1 Vaccine Unknown Completed [facility] Influenza Virus Vaccine Unknown Completed [facility] Influenza Virus Vaccine Unknown Completed [facility] Hep B, Adol or Pedi Dosage Unknown Completed [facility] Influenza Virus Vaccine Quad IM 3+ YRS Unknown Completed [facility] Influenza High Dose Unknown Completed [facility] Influenza High Dose Unknown Completed [facility] Influenza High Dose Unknown Completed [facility] Influenza High Dose Unknown Completed [facility] Influenza Virus Vaccine Quad .5 mL IM 6+ MO (FLUZONE/FLULAVAL/F LUARIX) Unknown Completed [facility] TDAP (ADACEL) VACCINE Unknown Completed [facility] Influenza Virus Vaccine Recomb Quad IM, Preserv and ABX Free 18-64 YRS Unknown Completed [facility] SARS-COV-2 COVID-19 PFIZER VACCINE Unknown Completed [facility] SARS-COV-2 COVID-19 PFIZER VACCINE Unknown Completed [facility] Influenza Virus Vaccine Quad IM, Preserv and ABX Free 6 MO-64 YRS (FLUCELVAX) Unknown Completed [facility] Pneumococcal Polysaccharide, PPSV23 (PNEUMOVAX) Unknown Completed [facility] Influenza Virus Vaccine Unknown Completed [facility] Influenza Virus Vaccine Unknown Completed [facility] H1n1 Vaccine Unknown Completed [facility] Influenza Virus Vaccine Unknown Completed [facility] Influenza Virus Vaccine Unknown Completed [facility] Hep B, Adol or Pedi Dosage Unknown Completed [facility] Influenza Virus Vaccine Quad IM 3+ YRS Unknown Completed [facility] Influenza High Dose Unknown Completed [facility] Influenza High Dose Unknown Completed [facility] Influenza High Dose Unknown Completed [facility] Influenza High Dose Unknown Completed [facility] Influenza Virus Vaccine Quad .5 mL IM 6+ MO (FLUZONE/FLULAVAL/F LUARIX) Unknown Completed [facility] TDAP (ADACEL) VACCINE Unknown Completed [facility] Influenza Virus Vaccine Recomb Quad IM, Preserv and ABX Free 18-64 YRS Unknown Completed [facility] SARS-COV-2 COVID-19 PFIZER VACCINE Unknown Completed [facility] SARS-COV-2 COVID-19 PFIZER VACCINE Unknown Completed [facility] Influenza Virus Vaccine Quad IM, Preserv and ABX Free 6 MO-64 YRS (FLUCELVAX) Unknown Completed [facility] Pneumococcal Polysaccharide, PPSV23 (PNEUMOVAX) Unknown Completed [facility] Influenza Virus Vaccine Unknown Completed [facility] Influenza Virus Vaccine Unknown Completed [facility] H1n1 Vaccine Unknown Completed [facility] Influenza Virus Vaccine Unknown Completed [facility] Influenza Virus Vaccine Unknown Completed [facility] Hep B, Adol or Pedi Dosage Unknown Completed [facility] Influenza Virus Vaccine Quad IM 3+ YRS Unknown Completed [facility] Influenza High Dose Unknown Completed [facility] Influenza High Dose Unknown Completed [facility] Influenza High Dose Unknown Completed [facility] Influenza High Dose Unknown Completed [facility] Influenza Virus Vaccine Quad .5 mL IM 6+ MO (FLUZONE/FLULAVAL/F LUARIX) Unknown Completed [facility] TDAP (ADACEL) VACCINE Unknown Completed [facility] Influenza Virus Vaccine Recomb Quad IM, Preserv and ABX Free 18-64 YRS Unknown Completed [facility] SARS-COV-2 COVID-19 PFIZER VACCINE Unknown Completed [facility] SARS-COV-2 COVID-19 PFIZER VACCINE Unknown Completed [facility] Influenza Virus Vaccine Quad IM, Preserv and ABX Free 6 MO-64 YRS (FLUCELVAX) Unknown Completed [facility] Pneumococcal Polysaccharide, PPSV23 (PNEUMOVAX) [facility] Influ[facility] Vacc[facility] Completed [facility] Influenza Virus Vaccine Unknown Completed [facility] H1n1 Vaccine Unknown Completed [facility] Influenza Virus Vaccine Unknown Completed [facility] Influenza Virus Vaccine Unknown Completed [facility] Hep B, Adol or Pedi Dosage Unknown Completed [facility] Influenza Virus Vaccine Quad IM 3+ YRS Unknown Completed [facility] Influenza High Dose Unknown Completed [facility] Influenza High Dose Unknown Completed [facility] Influenza High Dose Unknown Completed [facility] Influenza High Dose Unknown Completed [facility] Influenza Virus Vaccine Quad .5 mL IM 6+ MO (FLUZONE/FLULAVAL/F LUARIX) Unknown Completed [facility] TDAP (ADACEL) VACCINE Unknown Completed [facility] Influenza Virus Vaccine Recomb Quad IM, Preserv and ABX Free 18-64 YRS Unknown Completed [facility] SARS-COV-2 COVID-19 PFIZER VACCINE Unknown Completed [facility] SARS-COV-2 COVID-19 PFIZER VACCINE Unknown Completed [facility] Influenza Virus Vaccine Quad IM, Preserv and ABX Free 6 MO-64 YRS (FLUCELVAX) Unknown Completed [facility] Pneumococcal Polysaccharide, PPSV23 (PNEUMOVAX) Unknown Completed [facility] Influenza Virus Vaccine Unknown Completed [facility] Influenza Virus Vaccine Unknown Completed [facility] H1n1 Vaccine Unknown Completed [facility] Influenza Virus Vaccine Unknown Completed [facility] Influenza Virus Vaccine Unknown Completed [facility] Hep B, Adol or Pedi Dosage Unknown Completed [facility] Influenza Virus Vaccine Quad IM 3+ YRS Unknown Completed [facility] Influenza High Dose Unknown Completed [facility] Influenza High Dose Unknown Completed [facility] Influenza High Dose Unknown Completed [facility] Influenza High Dose Unknown Completed [facility] Influenza Virus Vaccine Quad .5 mL IM 6+ MO (FLUZONE/FLULAVAL/F LUARIX) Unknown Completed [facility] TDAP (ADACEL) VACCINE Unknown Completed [facility] Influenza Virus Vaccine Recomb Quad IM, Preserv and ABX Free 18-64 YRS Unknown Completed [facility] SARS-COV-2 COVID-19 PFIZER VACCINE Unknown Completed [facility] SARS-COV-2 COVID-19 PFIZER VACCINE Unknown Completed [facility] Influenza Virus Vaccine Quad IM, Preserv and ABX Free 6 MO-64 YRS (FLUCELVAX) Unknown Completed [facility] Pneumococcal Polysaccharide, PPSV23 (PNEUMOVAX) Unknown Completed [facility] Influenza Virus Vaccine Unknown Completed [facility] Influenza Virus Vaccine Unknown Completed [facility] H1n1 Vaccine Unknown Completed [facility] Influenza Virus Vaccine Unknown Completed [facility] Influenza Virus Vaccine Unknown Completed [facility] Hep B, Adol or Pedi Dosage Unknown Completed [facility] Influenza Virus Vaccine Quad IM 3+ YRS Unknown Completed [facility] Influenza High Dose Unknown Completed [facility] Influenza High Dose Unknown Completed [facility] Influenza High Dose Unknown Completed [facility] Influenza High Dose Unknown Completed [facility] Influenza Virus Vaccine Quad .5 mL IM 6+ MO (FLUZONE/FLULAVAL/F LUARIX) Unknown Completed [facility] TDAP (ADACEL) VACCINE Unknown Completed [facility] Influenza Virus Vaccine Recomb Quad IM, Preserv and ABX Free 18-64 YRS Unknown Completed [facility] SARS-COV-2 COVID-19 PFIZER VACCINE Unknown Completed [facility] SARS-COV-2 COVID-19 PFIZER VACCINE Unknown Completed [facility] Influenza Virus Vaccine Quad IM, Preserv and ABX Free 6 MO-64 YRS (FLUCELVAX) Unknown Completed [facility] Pneumococcal Polysaccharide, PPSV23 (PNEUMOVAX) Unknown Completed [facility] Influenza Virus Vaccine Unknown Completed [facility] Influenza Virus Vaccine Unknown Completed [facility] H1n1 Vaccine Unknown Completed [facility] Influenza Virus Vaccine Unknown Completed [facility] Influenza Virus Vaccine Unknown Completed [facility] Hep B, Adol or Pedi Dosage Unknown Completed [facility] Influenza Virus Vaccine Quad IM 3+ YRS Unknown Completed [facility] Influenza High Dose Unknown Completed [facility] Influenza High Dose Unknown Completed [facility] Influenza High Dose Unknown Completed [facility] Influenza High Dose Unknown Completed [facility] Influenza Virus Vaccine Quad .5 mL IM 6+ MO (FLUZONE/FLULAVAL/F LUARIX) Unknown Completed [facility] TDAP (ADACEL) VACCINE Unknown Completed [facility] Influenza Virus Vaccine Recomb Quad IM, Preserv and ABX Free 18-64 YRS Unknown Completed [facility] SARS-COV-2 COVID-19 PFIZER VACCINE Unknown Completed [facility] SARS-COV-2 COVID-19 PFIZER VACCINE Unknown Completed [facility] Influenza Virus Vaccine Quad IM, Preserv and ABX Free 6 MO-64 YRS (FLUCELVAX) Unknown Completed [facility] Pneumococcal Polysaccharide, PPSV23 (PNEUMOVAX) Unknown Completed [facility] Influenza Virus Vaccine Unknown Completed [facility] Influenza Virus Vaccine Unknown Completed [facility] H1n1 Vaccine Unknown Completed [facility] Influenza Virus Vaccine Unknown Completed [facility] Influenza Virus Vaccine Unknown Completed [facility] Hep B, Adol or Pedi Dosage Unknown Completed [facility] Influenza Virus Vaccine Quad IM 3+ YRS Unknown Completed [facility] Influenza High Dose Unknown Completed [facility] Influenza High Dose Unknown Completed [facility] Influenza High Dose Unknown Completed [facility] Influenza High Dose Unknown Completed [facility] Influenza Virus Vaccine Quad .5 mL IM 6+ MO (FLUZONE/FLULAVAL/F LUARIX) Unknown Completed [facility] TDAP (ADACEL) VACCINE Unknown Completed [facility] Influenza Virus Vaccine Recomb Quad IM, Preserv and ABX Free 18-64 YRS Unknown Completed [facility] SARS-COV-2 COVID-19 PFIZER VACCINE Unknown Completed [facility] SARS-COV-2 COVID-19 PFIZER VACCINE Unknown Completed [facility] Influenza Virus Vaccine Quad IM, Preserv and ABX Free 6 MO-64 YRS (FLUCELVAX) Unknown Completed [facility] Pneumococcal Polysaccharide, PPSV23 (PNEUMOVAX) Unknown Completed [facility] Influenza Virus Vaccine Unknown Completed [facility] Influenza Virus Vaccine Unknown Completed [facility] H1n1 Vaccine Unknown Completed [facility] Influenza Virus Vaccine Unknown Completed [facility] Influenza Virus Vaccine Unknown Completed [facility] Hep B, Adol or Pedi Dosage Unknown Completed [facility] Influenza Virus Vaccine Quad IM 3+ YRS Unknown Completed [facility] Influenza High Dose Unknown Completed [facility] Influenza High Dose Unknown Completed [facility] Influenza High Dose Unknown Completed [facility] Influenza High Dose Unknown Completed [facility] Influenza Virus Vaccine Quad .5 mL IM 6+ MO (FLUZONE/FLULAVAL/F LUARIX) Unknown Completed [facility] TDAP (ADACEL) VACCINE Unknown Completed [facility] Influenza Virus Vaccine Recomb Quad IM, Preserv and ABX Free 18-64 YRS Unknown Completed [facility] SARS-COV-2 COVID-19 PFIZER VACCINE Unknown Completed [facility] SARS-COV-2 COVID-19 PFIZER VACCINE Unknown Completed [facility] Influenza Virus Vaccine Quad IM, Preserv and ABX Free 6 MO-64 YRS (FLUCELVAX) Unknown Completed [facility] Pneumococcal Polysaccharide, PPSV23 (PNEUMOVAX) Unknown Completed [facility] Influenza Virus Vaccine Unknown Completed [facility] Influenza Virus Vaccine Unknown Completed [facility] H1n1 Vaccine Unknown Completed [facility] Influenza Virus Vaccine Unknown Completed [facility] Influenza Virus Vaccine Unknown Completed [facility] Hep B, Adol or Pedi Dosage Unknown Completed [facility] Influenza Virus Vaccine Quad IM 3+ YRS Unknown Completed [facility] Influenza High Dose Unknown Completed [facility] Influenza High Dose Unknown Completed [facility] Influenza High Dose Unknown Completed [facility] Influenza High Dose Unknown Completed [facility] Influenza Virus Vaccine Quad .5 mL IM 6+ MO (FLUZONE/FLULAVAL/F LUARIX) Unknown Completed [facility] TDAP (ADACEL) VACCINE Unknown Completed [facility] Influenza Virus Vaccine Recomb Quad IM, Preserv and ABX Free 18-64 YRS Unknown Completed [facility] SARS-COV-2 COVID-19 PFIZER VACCINE Unknown Completed [facility] SARS-COV-2 COVID-19 PFIZER VACCINE Unknown Completed [facility] Influenza Virus Vaccine Quad IM, Preserv and ABX Free 6 MO-64 YRS (FLUCELVAX) Unknown Completed [facility] Pneumococcal Polysaccharide, PPSV23 (PNEUMOVAX) Unknown Completed [facility] Influenza Virus Vaccine Unknown Completed [facility] Influenza Virus Vaccine Unknown Completed [facility] H1n1 Vaccine Unknown Completed [facility] Influenza Virus Vaccine Unknown Completed [facility] Influenza Virus Vaccine Unknown Completed [facility] Hep B, Adol or Pedi Dosage Unknown Completed [facility] Influenza Virus Vaccine Quad IM 3+ YRS Unknown Completed [facility] Influenza High Dose Unknown Completed [facility] Influenza High Dose Unknown Completed [facility] Influenza High Dose Unknown Completed [facility] Influenza High Dose Unknown Completed [facility] Influenza Virus Vaccine Quad .5 mL IM 6+ MO (FLUZONE/FLULAVAL/F LUARIX) Unknown Completed [facility] TDAP (ADACEL) VACCINE Unknown Completed [facility] Influenza Virus Vaccine Recomb Quad IM, Preserv and ABX Free 18-64 YRS Unknown Completed [facility] SARS-COV-2 COVID-19 PFIZER VACCINE Unknown Completed [facility] SARS-COV-2 COVID-19 PFIZER VACCINE Unknown Completed [facility] Influenza Virus Vaccine Quad IM, Preserv and ABX Free 6 MO-64 YRS (FLUCELVAX) Unknown Completed [facility] Pneumococcal Polysaccharide, PPSV23 (PNEUMOVAX) Unknown Completed [facility] Influenza Virus Vaccine Unknown Completed [facility] Influenza Virus Vaccine Unknown Completed [facility] H1n1 Vaccine Unknown Completed [facility] Influenza Virus Vaccine Unknown Completed [facility] Influenza Virus Vaccine Unknown Completed [facility] Hep B, Adol or Pedi Dosage Unknown Completed [facility] Influenza Virus Vaccine Quad IM 3+ YRS Unknown Completed [facility] Influenza High Dose Unknown Completed [facility] Influenza High Dose Unknown Completed [facility] Influenza High Dose Unknown Completed [facility] Influenza High Dose Unknown Completed [facility] Influenza Virus Vaccine Quad .5 mL IM 6+ MO (FLUZONE/FLULAVAL/F LUARIX) Unknown Completed [facility] TDAP (ADACEL) VACCINE Unknown Completed [facility] Influenza Virus Vaccine Recomb Quad IM, Preserv and ABX Free 18-64 YRS Unknown Completed [facility] SARS-COV-2 COVID-19 PFIZER VACCINE Unknown Completed [facility] SARS-COV-2 COVID-19 PFIZER VACCINE Unknown Completed [facility] Influenza Virus Vaccine Quad IM, Preserv and ABX Free 6 MO-64 YRS (FLUCELVAX) Unknown Completed [facility] Pneumococcal Polysaccharide, PPSV23 (PNEUMOVAX) [facility] Influ[facility] Completed [facility] Influenza Virus Vaccine Unknown Completed [facility] H1n1 Vaccine Unknown Completed [facility] Influenza Virus Vaccine Unknown Completed [facility] Influenza Virus Vaccine Unknown Completed [facility] Hep B, Adol or Pedi Dosage Unknown Completed [facility] Influenza Virus Vaccine Quad IM 3+ YRS Unknown Completed [facility] Influenza High Dose Unknown Completed [facility] Influenza High Dose Unknown Completed [facility] Influenza High Dose Unknown Completed [facility] Influenza High Dose Unknown Completed [facility] Influenza Virus Vaccine Quad .5 mL IM 6+ MO (FLUZONE/FLULAVAL/F LUARIX) Unknown Completed [facility] TDAP (ADACEL) VACCINE Unknown Completed [facility] Influenza Virus Vaccine Recomb Quad IM, Preserv and ABX Free 18-64 YRS Unknown Completed [facility] SARS-COV-2 COVID-19 PFIZER VACCINE Unknown Completed [facility] SARS-COV-2 COVID-19 PFIZER VACCINE Unknown Completed [facility] Influenza Virus Vaccine Quad IM, Preserv and ABX Free 6 MO-64 YRS (FLUCELVAX) Unknown Completed [facility] Pneumococcal Polysaccharide, PPSV23 (PNEUMOVAX) Unknown Completed [facility] Influenza Virus Vaccine Unknown Completed [facility] Influenza Virus Vaccine Unknown Completed [facility] H1n1 Vaccine Unknown Completed [facility] Influenza Virus Vaccine Unknown Completed [facility] Influenza Virus Vaccine Unknown Completed [facility] Hep B, Adol or Pedi Dosage Unknown Completed [facility] Influenza Virus Vaccine Quad IM 3+ YRS Unknown Completed [facility] Influenza High Dose Unknown Completed [facility] Influenza High Dose Unknown Completed [facility] Influenza High Dose Unknown Completed [facility] Influenza High Dose Unknown Completed [facility] Influenza Virus Vaccine Quad .5 mL IM 6+ MO (FLUZONE/FLULAVAL/F LUARIX) Unknown Completed [facility] TDAP (ADACEL) VACCINE Unknown Completed [facility] Influenza Virus Vaccine Recomb Quad IM, Preserv and ABX Free 18-64 YRS Unknown Completed [facility] SARS-COV-2 COVID-19 PFIZER VACCINE Unknown Completed [facility] SARS-COV-2 COVID-19 PFIZER VACCINE Unknown Completed [facility] Influenza Virus Vaccine Quad IM, Preserv and ABX Free 6 MO-64 YRS (FLUCELVAX) Unknown Completed [facility] Pneumococcal Polysaccharide, PPSV23 (PNEUMOVAX) Unknown Completed [facility] Influenza Virus Vaccine Unknown Completed [facility] Influenza Virus Vaccine Unknown Completed [facility] H1n1 Vaccine Unknown Completed [facility] Influenza Virus Vaccine Unknown Completed [facility] Influenza Virus Vaccine Unknown Completed [facility] Hep B, Adol or Pedi Dosage Unknown Completed [facility] Influenza Virus Vaccine Quad IM 3+ YRS Unknown Completed [facility] Influenza High Dose Unknown Completed [facility] Influenza High Dose Unknown Completed [facility] Influenza High Dose Unknown Completed [facility] Influenza High Dose Unknown Completed [facility] Influenza Virus Vaccine Quad .5 mL IM 6+ MO (FLUZONE/FLULAVAL/F LUARIX) Unknown Completed [facility] TDAP (ADACEL) VACCINE Unknown Completed [facility] Influenza Virus Vaccine Recomb Quad IM, Preserv and ABX Free 18-64 YRS Unknown Completed [facility] SARS-COV-2 COVID-19 PFIZER VACCINE Unknown Completed [facility] SARS-COV-2 COVID-19 PFIZER VACCINE Unknown Completed [facility] Influenza Virus Vaccine Quad IM, Preserv and ABX Free 6 MO-64 YRS (FLUCELVAX) Unknown Completed [facility] Pneumococcal Polysaccharide, PPSV23 (PNEUMOVAX) Unknown Completed [facility] Influenza Virus Vaccine Unknown Completed [facility] Influenza Virus Vaccine Unknown Completed [facility] H1n1 Vaccine Unknown Completed [facility] Influenza Virus Vaccine Unknown Completed [facility] Influenza Virus Vaccine Unknown Completed [facility] Hep B, Adol or Pedi Dosage Unknown Completed [facility] Influenza Virus Vaccine Quad IM 3+ YRS Unknown Completed [facility] Influenza High Dose Unknown Completed [facility] Influenza High Dose Unknown Completed [facility] Influenza High Dose Unknown Completed [facility] Influenza High Dose Unknown Completed [facility] Influenza Virus Vaccine Quad .5 mL IM 6+ MO (FLUZONE/FLULAVAL/F LUARIX) Unknown Completed [facility] TDAP (ADACEL) VACCINE Unknown Completed [facility] Influenza Virus Vaccine Recomb Quad IM, Preserv and ABX Free 18-64 YRS Unknown Completed [facility] SARS-COV-2 COVID-19 PFIZER VACCINE Unknown Completed [facility] SARS-COV-2 COVID-19 PFIZER VACCINE Unknown Completed [facility] Influenza Virus Vaccine Quad IM, Preserv and ABX Free 6 MO-64 YRS (FLUCELVAX) Unknown Completed [facility] Pneumococcal Polysaccharide, PPSV23 (PNEUMOVAX) Unknown Completed [facility] Influenza Virus Vaccine Unknown Completed [facility] Influenza Virus Vaccine Unknown Completed [facility] H1n1 Vaccine Unknown Completed [facility] Influenza Virus Vaccine Unknown Completed [facility] Influenza Virus Vaccine Unknown Completed [facility] Hep B, Adol or Pedi Dosage Unknown Completed [facility] Influenza Virus Vaccine Quad IM 3+ YRS Unknown Completed [facility] Influenza High Dose Unknown Completed [facility] Influenza High Dose Unknown Completed [facility] Influenza High Dose Unknown Completed [facility] Influenza High Dose Unknown Completed [facility] Influenza Virus Vaccine Quad .5 mL IM 6+ MO (FLUZONE/FLULAVAL/F LUARIX) Unknown Completed [facility] TDAP (ADACEL) VACCINE Unknown Completed [facility] Influenza Virus Vaccine Recomb Quad IM, Preserv and ABX Free 18-64 YRS Unknown Completed [facility] SARS-COV-2 COVID-19 PFIZER VACCINE Unknown Completed [facility] SARS-COV-2 COVID-19 PFIZER VACCINE Unknown Completed [facility] Influenza Virus Vaccine Quad IM, Preserv and ABX Free 6 MO-64 YRS (FLUCELVAX) Unknown Completed [facility] Pneumococcal Polysaccharide, PPSV23 (PNEUMOVAX) Unknown [facility] Influenza [facility] Vaccine Unknown Completed [facility] Influenza Virus Vaccine Unknown Completed [facility] H1n1 Vaccine Unknown Completed [facility] Influenza Virus Vaccine Unknown Completed [facility] Influenza Virus Vaccine Unknown Completed [facility] Hep B, Adol or Pedi Dosage Unknown Completed [facility] Influenza Virus Vaccine Quad IM 3+ YRS Unknown Completed [facility] Influenza High Dose Unknown Completed [facility] Influenza High Dose Unknown Completed [facility] Influenza High Dose Unknown Completed [facility] Influenza High Dose Unknown Completed [facility] Influenza Virus Vaccine Quad .5 mL IM 6+ MO (FLUZONE/FLULAVAL/F LUARIX) Unknown Completed [facility] TDAP (ADACEL) VACCINE Unknown Completed [facility] Influenza Virus Vaccine Recomb Quad IM, Preserv and ABX Free 18-64 YRS Unknown Completed [facility] SARS-COV-2 COVID-19 PFIZER VACCINE Unknown Completed [facility] SARS-COV-2 COVID-19 PFIZER VACCINE Unknown Completed [facility] Influenza Virus Vaccine Quad IM, Preserv and ABX Free 6 MO-64 YRS (FLUCELVAX) Unknown Completed [facility] Pneumococcal Polysaccharide, PPSV23 (PNEUMOVAX) Unknown [facility] Influenza Virus Vaccine Unknown Completed [facility] Influenza Virus Vaccine Unknown Completed [facility] H1n1 Vaccine Unknown Completed [facility] Influenza Virus Vaccine Unknown Completed [facility] Influenza Virus Vaccine Unknown Completed [facility] Hep B, Adol or Pedi Dosage Unknown Completed [facility] Influenza Virus Vaccine Quad IM 3+ YRS Unknown Completed [facility] Influenza High Dose Unknown Completed [facility] Influenza High Dose Unknown Completed [facility] Influenza High Dose Unknown Completed [facility] Influenza High Dose Unknown Completed [facility] Influenza Virus Vaccine Quad .5 mL IM 6+ MO (FLUZONE/FLULAVAL/F LUARIX) Unknown Completed [facility] TDAP (ADACEL) VACCINE Unknown Completed [facility] Influenza Virus Vaccine Recomb Quad IM, Preserv and ABX Free 18-64 YRS Unknown Completed [facility] SARS-COV-2 COVID-19 PFIZER VACCINE Unknown Completed [facility] SARS-COV-2 COVID-19 PFIZER VACCINE Unknown Completed [facility] Influenza Virus Vaccine Quad IM, Preserv and ABX Free 6 MO-64 YRS (FLUCELVAX) Unknown Completed [facility] Pneumococcal Polysaccharide, PPSV23 (PNEUMOVAX) Unknown Completed [facility] Influenza Virus Vaccine Unknown Completed [facility] Influenza Virus Vaccine Unknown Completed [facility] H1n1 Vaccine Unknown Completed [facility] Influenza Virus Vaccine Unknown Completed [facility] Influenza Virus Vaccine Unknown Completed [facility] Hep B, Adol or Pedi Dosage Unknown Completed [facility] Influenza Virus Vaccine Quad IM 3+ YRS Unknown Completed [facility] Influenza High Dose Unknown Completed [facility] Influenza High Dose Unknown Completed [facility] Influenza High Dose Unknown Completed [facility] Influenza High Dose Unknown Completed [facility] Influenza Virus Vaccine Quad .5 mL IM 6+ MO (FLUZONE/FLULAVAL/F LUARIX) Unknown Completed [facility] TDAP (ADACEL) VACCINE Unknown Completed [facility] Influenza Virus Vaccine Recomb Quad IM, Preserv and ABX Free 18-64 YRS Unknown Completed [facility] SARS-COV-2 COVID-19 PFIZER VACCINE Unknown Completed [facility] SARS-COV-2 COVID-19 PFIZER VACCINE Unknown Completed [facility] Influenza Virus Vaccine Quad IM, Preserv and ABX Free 6 MO-64 YRS (FLUCELVAX) Unknown Completed [facility] Pneumococcal Polysaccharide, PPSV23 (PNEUMOVAX) Unknown Completed [facility] Influenza Virus Vaccine Unknown Completed [facility] Influenza Virus Vaccine Unknown Completed [facility] H1n1 Vaccine Unknown Completed [facility] Influenza Virus Vaccine Unknown Completed [facility] Influenza Virus Vaccine Unknown Completed [facility] Hep B, Adol or Pedi Dosage Unknown Completed [facility] Influenza Virus Vaccine Quad IM 3+ YRS Unknown Completed [facility] Influenza High Dose Unknown Completed [facility] Influenza High Dose Unknown Completed [facility] Influenza High Dose Unknown Completed [facility] Influenza High Dose Unknown Completed [facility] Influenza Virus Vaccine Quad .5 mL IM 6+ MO (FLUZONE/FLULAVAL/F LUARIX) Unknown Completed [facility] TDAP (ADACEL) VACCINE Unknown Completed [facility] Influenza Virus Vaccine Recomb Quad IM, Preserv and ABX Free 18-64 YRS Unknown Completed [facility] SARS-COV-2 COVID-19 PFIZER VACCINE Unknown Completed [facility] SARS-COV-2 COVID-19 PFIZER VACCINE Unknown Completed [facility] Influenza Virus Vaccine Quad IM, Preserv and ABX Free 6 MO-64 YRS (FLUCELVAX) Unknown Completed [facility] Pneumococcal Polysaccharide, PPSV23 (PNEUMOVAX) Unknown [facility] Influenza Virus Vaccine Unknown Completed [facility] Influenza Virus Vaccine Unknown Completed [facility] H1n1 Vaccine Unknown Completed [facility] Influenza Virus Vaccine Unknown Completed [facility] Influenza Virus Vaccine Unknown Completed [facility] Hep B, Adol or Pedi Dosage Unknown Completed [facility] Influenza Virus Vaccine Quad IM 3+ YRS Unknown Completed [facility] Influenza High Dose Unknown Completed [facility] Influenza High Dose Unknown Completed [facility] Influenza High Dose Unknown Completed [facility] Influenza High Dose Unknown Completed [facility] Influenza Virus Vaccine Quad .5 mL IM 6+ MO (FLUZONE/FLULAVAL/F LUARIX) Unknown Completed [facility] TDAP (ADACEL) VACCINE Unknown Completed [facility] Influenza Virus Vaccine Recomb Quad IM, Preserv and ABX Free 18-64 YRS Unknown Completed [facility] SARS-COV-2 COVID-19 PFIZER VACCINE Unknown Completed [facility] SARS-COV-2 COVID-19 PFIZER VACCINE Unknown Completed [facility] Influenza Virus Vaccine Quad IM, Preserv and ABX Free 6 MO-64 YRS (FLUCELVAX) Unknown Completed [facility] Pneumococcal Polysaccharide, PPSV23 (PNEUMOVAX) Unknown Completed [facility] Influenza Virus Vaccine Unknown Completed [facility] Influenza Virus Vaccine Unknown Completed [facility] H1n1 Vaccine Unknown Completed [facility] Influenza Virus Vaccine Unknown Completed [facility] Influenza Virus Vaccine Unknown Completed [facility] Hep B, Adol or Pedi Dosage Unknown Completed [facility] Influenza Virus Vaccine Quad IM 3+ YRS Unknown Completed [facility] Influenza High Dose Unknown Completed [facility] Influenza High Dose Unknown Completed [facility] Influenza High Dose Unknown Completed [facility] Influenza High Dose Unknown Completed [facility] Influenza Virus Vaccine Quad .5 mL IM 6+ MO (FLUZONE/FLULAVAL/F LUARIX) Unknown Completed [facility] TDAP (ADACEL) VACCINE Unknown Completed [facility] Influenza Virus Vaccine Recomb Quad IM, Preserv and ABX Free 18-64 YRS Unknown Completed [facility] SARS-COV-2 COVID-19 PFIZER VACCINE Unknown Completed [facility] SARS-COV-2 COVID-19 PFIZER VACCINE Unknown Completed [facility] Influenza Virus Vaccine Quad IM, Preserv and ABX Free 6 MO-64 YRS (FLUCELVAX) Unknown Completed [facility] Pneumococcal Polysaccharide, PPSV23 (PNEUMOVAX) Unknown Completed [facility] Influenza Virus Vaccine Unknown Completed [facility] Influenza Virus Vaccine Unknown Completed [facility] H1n1 Vaccine Unknown Completed [facility] Influenza Virus Vaccine Unknown Completed [facility] Influenza Virus Vaccine Unknown Completed [facility] Hep B, Adol or Pedi Dosage Unknown Completed [facility] Influenza Virus Vaccine Quad IM 3+ YRS Unknown Completed [facility] Influenza High Dose Unknown Completed [facility] Influenza High Dose Unknown Completed [facility] Influenza High Dose Unknown Completed [facility] Influenza High Dose Unknown Completed [facility] Influenza Virus Vaccine Quad .5 mL IM 6+ MO (FLUZONE/FLULAVAL/F LUARIX) Unknown Completed [facility] TDAP (ADACEL) VACCINE Unknown Completed [facility] Influenza Virus Vaccine Recomb Quad IM, Preserv and ABX Free 18-64 YRS Unknown Completed [facility] SARS-COV-2 COVID-19 PFIZER VACCINE Unknown Completed [facility] SARS-COV-2 COVID-19 PFIZER VACCINE Unknown Completed [facility] Influenza Virus Vaccine Quad IM, Preserv and ABX Free 6 MO-64 YRS (FLUCELVAX) Unknown Completed [facility] Pneumococcal Polysaccharide, PPSV23 (PNEUMOVAX) Unknown [facility] Influenza Virus Vaccine Unknown Completed [facility] Influenza Virus Vaccine Unknown Completed [facility] H1n1 Vaccine Unknown Completed [facility] Influenza Virus Vaccine Unknown Completed [facility] Influenza Virus Vaccine Unknown Completed [facility] Hep B, Adol or Pedi Dosage Unknown Completed [facility] Influenza Virus Vaccine Quad IM 3+ YRS Unknown Completed [facility] Influenza High Dose Unknown Completed [facility] Influenza High Dose Unknown Completed [facility] Influenza High Dose Unknown Completed [facility] Influenza High Dose Unknown Completed [facility] Influenza Virus Vaccine Quad .5 mL IM 6+ MO (FLUZONE/FLULAVAL/F LUARIX) Unknown Completed [facility] TDAP (ADACEL) VACCINE Unknown Completed [facility] Influenza Virus Vaccine Recomb Quad IM, Preserv and ABX Free 18-64 YRS Unknown Completed [facility] SARS-COV-2 COVID-19 PFIZER VACCINE Unknown Completed [facility] SARS-COV-2 COVID-19 PFIZER VACCINE Unknown Completed [facility] Influenza Virus Vaccine Quad IM, Preserv and ABX Free 6 MO-64 YRS (FLUCELVAX) Unknown Completed [facility] Pneumococcal Polysaccharide, PPSV23 (PNEUMOVAX) Unknown Completed [facility] Influenza Virus Vaccine Unknown Completed [facility] Influenza Virus Vaccine Unknown Completed [facility] H1n1 Vaccine Unknown Completed [facility] Influenza Virus Vaccine Unknown Completed [facility] Influenza Virus Vaccine Unknown Completed [facility] Hep B, Adol or Pedi Dosage Unknown Completed [facility] Influenza Virus Vaccine Quad IM 3+ YRS Unknown Completed [facility] Influenza High Dose Unknown Completed [facility] Influenza High Dose Unknown Completed [facility] Influenza High Dose Unknown Completed [facility] Influenza High Dose Unknown Completed [facility] Influenza Virus Vaccine Quad .5 mL IM 6+ MO (FLUZONE/FLULAVAL/F LUARIX) Unknown Completed [facility] TDAP (ADACEL) VACCINE Unknown Completed [facility] Influenza Virus Vaccine Recomb Quad IM, Preserv and ABX Free 18-64 YRS Unknown Completed [facility] SARS-COV-2 COVID-19 PFIZER VACCINE Unknown Completed [facility] SARS-COV-2 COVID-19 PFIZER VACCINE Unknown Completed [facility] Influenza Virus Vaccine Quad IM, Preserv and ABX Free 6 MO-64 YRS (FLUCELVAX) Unknown Completed [facility] Pneumococcal Polysaccharide, PPSV23 (PNEUMOVAX) Unknown Completed [facility] Influenza Virus Vaccine Unknown Completed [facility] Influenza Virus Vaccine Unknown Completed [facility] H1n1 Vaccine Unknown Completed [facility] Influenza Virus Vaccine Unknown Completed [facility] Influenza Virus Vaccine Unknown Completed [facility] Hep B, Adol or Pedi Dosage Unknown Completed [facility] Influenza Virus Vaccine Quad IM 3+ YRS Unknown Completed [facility] Influenza High Dose Unknown Completed [facility] Influenza High Dose Unknown Completed [facility] Influenza High Dose Unknown Completed [facility] Influenza High Dose Unknown Completed [facility] Influenza Virus Vaccine Quad .5 mL IM 6+ MO (FLUZONE/FLULAVAL/F LUARIX) Unknown Completed [facility] TDAP (ADACEL) VACCINE Unknown Completed [facility] Influenza Virus Vaccine Recomb Quad IM, Preserv and ABX Free 18-64 YRS Unknown Completed [facility] SARS-COV-2 COVID-19 PFIZER VACCINE Unknown Completed [facility] SARS-COV-2 COVID-19 PFIZER VACCINE Unknown Completed [facility] Influenza Virus Vaccine Quad IM, Preserv and ABX Free 6 MO-64 YRS (FLUCELVAX) Unknown Completed [facility] Pneumococcal Polysaccharide, PPSV23 (PNEUMOVAX) Unknown [facility] Influenza Virus Vaccine Unknown Completed [facility] Influenza Virus Vaccine Unknown Completed [facility] H1n1 Vaccine Unknown Completed [facility] Influenza Virus Vaccine Unknown Completed [facility] Influenza Virus Vaccine Unknown Completed [facility] Hep B, Adol or Pedi Dosage Unknown Completed [facility] Influenza Virus Vaccine Quad IM 3+ YRS Unknown Completed [facility] Influenza High Dose Unknown Completed [facility] Influenza High Dose Unknown Completed [facility] Influenza High Dose Unknown Completed [facility] Influenza High Dose Unknown Completed [facility] Influenza Virus Vaccine Quad .5 mL IM 6+ MO (FLUZONE/FLULAVAL/F LUARIX) Unknown Completed [facility] TDAP (ADACEL) VACCINE Unknown Completed [facility] Influenza Virus Vaccine Recomb Quad IM, Preserv and ABX Free 18-64 YRS Unknown Completed [facility] SARS-COV-2 COVID-19 PFIZER VACCINE Unknown Completed [facility] SARS-COV-2 COVID-19 PFIZER VACCINE Unknown Completed [facility] Influenza Virus Vaccine Quad IM, Preserv and ABX Free 6 MO-64 YRS (FLUCELVAX) Unknown Completed [facility] Pneumococcal Polysaccharide, PPSV23 (PNEUMOVAX) Unknown Completed [facility] Influenza Virus Vaccine Unknown Completed [facility] Influenza Virus Vaccine Unknown Completed [facility] H1n1 Vaccine Unknown Completed [facility] Influenza Virus Vaccine Unknown Completed [facility] Influenza Virus Vaccine Unknown Completed [facility] Hep B, Adol or Pedi Dosage Unknown Completed [facility] Influenza Virus Vaccine Quad IM 3+ YRS Unknown Completed [facility] Influenza High Dose Unknown Completed [facility] Influenza High Dose Unknown Completed [facility] Influenza High Dose Unknown Completed [facility] Influenza High Dose Unknown Completed [facility] Influenza Virus Vaccine Quad .5 mL IM 6+ MO (FLUZONE/FLULAVAL/F LUARIX) Unknown Completed [facility] TDAP (ADACEL) VACCINE Unknown Completed [facility] Influenza Virus Vaccine Recomb Quad IM, Preserv and ABX Free 18-64 YRS Unknown Completed [facility] SARS-COV-2 COVID-19 PFIZER VACCINE Unknown Completed [facility] SARS-COV-2 COVID-19 PFIZER VACCINE Unknown Completed [facility] Influenza Virus Vaccine Quad IM, Preserv and ABX Free 6 MO-64 YRS (FLUCELVAX) Unknown Completed [facility] Pneumococcal Polysaccharide, PPSV23 (PNEUMOVAX) Unknown Completed [facility] Influenza Virus Vaccine Unknown Completed [facility] Influenza Virus Vaccine Unknown Completed [facility] H1n1 Vaccine Unknown Completed [facility] Influenza Virus Vaccine Unknown Completed [facility] Influenza Virus Vaccine Unknown Completed [facility] Hep B, Adol or Pedi Dosage Unknown Completed [facility] Influenza Virus Vaccine Quad IM 3+ YRS Unknown Completed [facility] Influenza High Dose Unknown Completed [facility] Influenza High Dose Unknown Completed [facility] Influenza High Dose Unknown Completed [facility] Influenza High Dose Unknown Completed [facility] Influenza Virus Vaccine Quad .5 mL IM 6+ MO (FLUZONE/FLULAVAL/F LUARIX) Unknown Completed [facility] TDAP (ADACEL) VACCINE Unknown Completed [facility] Influenza Virus Vaccine Recomb Quad IM, Preserv and ABX Free 18-64 YRS Unknown Completed [facility] SARS-COV-2 COVID-19 PFIZER VACCINE Unknown Completed [facility] SARS-COV-2 COVID-19 PFIZER VACCINE Unknown Completed [facility] Influenza Virus Vaccine Quad IM, Preserv and ABX Free 6 MO-64 YRS (FLUCELVAX) Unknown Completed [facility] Pneumococcal Polysaccharide, PPSV23 (PNEUMOVAX) [facility] Influ[facility] Virus Vaccine Unknown Completed [facility] Influenza Virus Vaccine Unknown Completed [facility] H1n1 Vaccine Unknown Com[facility] Influenza Virus Vaccine Unknown Completed [facility] Influenza Virus Vaccine Unknown Completed [facility] Hep B, Adol or Pedi Dosage Unknown Completed [facility] Influenza Virus Vaccine Quad IM 3+ YRS Unknown Completed [facility] Influenza High Dose Unknown Completed [facility] Influenza High Dose Unknown Completed [facility] Influenza High Dose Unknown Completed [facility] Influenza High Dose Unknown Completed [facility] Influenza Virus Vaccine Quad .5 mL IM 6+ MO (FLUZONE/FLULAVAL/F LUARIX) Unknown Completed [facility] TDAP (ADACEL) VACCINE Unknown Completed [facility] Influenza Virus Vaccine Recomb Quad IM, Preserv and ABX Free 18-64 YRS Unknown Completed [facility] SARS-COV-2 COVID-19 PFIZER VACCINE Unknown Completed [facility] SARS-COV-2 COVID-19 PFIZER VACCINE Unknown Completed [facility] Influenza Virus Vaccine Quad IM, Preserv and ABX Free 6 MO-64 YRS (FLUCELVAX) Unknown Completed [facility] Pneumococcal Polysaccharide, PPSV23 (PNEUMOVAX) Unknown Completed [facility] Influenza Virus Vaccine Unknown Completed [facility] Influenza Virus Vaccine Unknown Completed [facility] H1n1 Vaccine Unknown Completed [facility] Influenza Virus Vaccine Unknown Completed [facility] Influenza Virus Vaccine Unknown Completed [facility] Hep B, Adol or Pedi Dosage Unknown Completed [facility] Influenza Virus Vaccine Quad IM 3+ YRS Unknown Completed [facility] Influenza High Dose Unknown Completed [facility] Influenza High Dose Unknown Completed [facility] Influenza High Dose Unknown Completed [facility] Influenza High Dose Unknown Completed [facility] Influenza Virus Vaccine Quad .5 mL IM 6+ MO (FLUZONE/FLULAVAL/F LUARIX) Unknown Completed [facility] TDAP (ADACEL) VACCINE Unknown Completed [facility] Influenza Virus Vaccine Recomb Quad IM, Preserv and ABX Free 18-64 YRS Unknown Completed [facility] SARS-COV-2 COVID-19 PFIZER VACCINE Unknown Completed [facility] SARS-COV-2 COVID-19 PFIZER VACCINE Unknown Completed [facility] Influenza Virus Vaccine Quad IM, Preserv and ABX Free 6 MO-64 YRS (FLUCELVAX) Unknown Completed [facility] Pneumococcal Polysaccharide, PPSV23 (PNEUMOVAX) Unknown Completed [facility] Influenza Virus Vaccine Unknown Completed [facility] Influenza Virus Vaccine Unknown Completed [facility] H1n1 Vaccine Unknown Completed [facility] Influenza Virus Vaccine Unknown Completed [facility] Influenza Virus Vaccine Unknown Completed [facility] Hep B, Adol or Pedi Dosage Unknown Completed [facility] Influenza Virus Vaccine Quad IM 3+ YRS Unknown Completed [facility] Influenza High Dose Unknown Completed [facility] Influenza High Dose Unknown Completed [facility] Influenza High Dose Unknown Completed [facility] Influenza High Dose Unknown Completed [facility] Influenza Virus Vaccine Quad .5 mL IM 6+ MO (FLUZONE/FLULAVAL/F LUARIX) Unknown Completed [facility] TDAP (ADACEL) VACCINE Unknown Completed [facility] Influenza Virus Vaccine Recomb Quad IM, Preserv and ABX Free 18-64 YRS Unknown Completed [facility] SARS-COV-2 COVID-19 PFIZER VACCINE Unknown Completed [facility] SARS-COV-2 COVID-19 PFIZER VACCINE Unknown Completed [facility] Influenza Virus Vaccine Quad IM, Preserv and ABX Free 6 MO-64 YRS (FLUCELVAX) Unknown Completed [facility] Pneumococcal Polysaccharide, PPSV23 (PNEUMOVAX) Unknown Completed [facility] Influenza Virus Vaccine Unknown Completed [facility] Influenza Virus Vaccine Unknown Completed [facility] H1n1 Vaccine Unknown Completed [facility] Influenza Virus Vaccine Unknown Completed [facility] Influenza Virus Vaccine Unknown Completed [facility] Hep B, Adol or Pedi Dosage Unknown Completed [facility] Influenza Virus Vaccine Quad IM 3+ YRS Unknown Completed [facility] Influenza High Dose Unknown Completed [facility] Influenza High Dose Unknown Completed [facility] Influenza High Dose Unknown Completed [facility] Influenza High Dose Unknown Completed [facility] Influenza Virus Vaccine Quad .5 mL IM 6+ MO (FLUZONE/FLULAVAL/F LUARIX) Unknown Completed [facility] TDAP (ADACEL) VACCINE Unknown Completed [facility] Influenza Virus Vaccine Recomb Quad IM, Preserv and ABX Free 18-64 YRS Unknown Completed [facility] SARS-COV-2 COVID-19 PFIZER VACCINE Unknown Completed [facility] SARS-COV-2 COVID-19 PFIZER VACCINE Unknown Completed [facility] Influenza Virus Vaccine Quad IM, Preserv and ABX Free 6 MO-64 YRS (FLUCELVAX) Unknown Completed [facility] Pneumococcal Polysaccharide, PPSV23 (PNEUMOVAX) Unknown Completed [facility] Vital Signs Vital Name Observation Time Observation Value Comments S ource Systolic blood pressure 2023-05-18 20:41:00 118 mm[Hg] [facility] Diastolic blood pressure 2023-05-18 20:41:00 84 mm[Hg] [facility] Heart rate 2023-05-18 20:41:00 99 /min [facility] Body temperature 2023-05-18 20:41:00 36.72 Juanita [facility] Respiratory rate 2023-05-18 20:41:00 18 /min [facility] Body height 2023-05-18 20:41:00 157.5 cm [facility] Body weight 2023-05-18 20:41:00 59.693 kg [facility] BMI 2023-05-18 20:41:00 24.07 kg/m2 [facility] Oxygen saturation in Arterial blood by Pulse oximetry 2023-05-18 20:41:00 99 /min [facility] Systolic blood pressure 2023-05-14 14:43:00 125 mm[Hg] [facility] Diastolic blood pressure 2023-05-14 14:43:00 97 mm[Hg] [facility] Heart rate 2023-05-14 14:43:00 87 /min [facility] Respiratory rate 2023-05-14 14:43:00 18 /min [facility] Oxygen saturation in Arterial blood by Pulse oximetry 2023-05-14 14:43:00 100 /min [facility] Body temperature 2023-05-14 11:19:00 36.22 Juanita [facility] Body weight 2023-05-14 11:19:00 67.586 kg [facility] BMI 2023-05-14 11:19:00 27.25 kg/m2 [facility] Systolic blood pressure 2023-03-28 16:16:00 152 mm[Hg] [facility] Diastolic blood pressure 2023-03-28 16:16:00 93 mm[Hg] [facility] Heart rate 2023-03-28 16:16:00 113 /min [facility] Oxygen saturation in Arterial blood by Pulse oximetry 2023-03-28 16:16:00 99 /min [facility] Body temperature 2023-03-28 16:15:00 36.78 Juanita [facility] Body height 2023-03-28 16:15:00 157.5 cm [facility] Body weight 2023-03-28 16:15:00 67.586 kg [facility] BMI 2023-03-28 16:15:00 27.25 kg/m2 [facility] Body temperature 2023-03-03 14:00:00 35.56 Juanita [facility] Body height 2023-03-03 14:00:00 157.5 cm [facility] Body weight 2023-03-03 14:00:00 67.586 kg [facility] BMI 2023-03-03 14:00:00 27.25 kg/m2 [facility] Systolic blood pressure 2023-02-28 13:10:00 134 mm[Hg] [facility] Diastolic blood pressure 2023-02-28 13:10:00 93 mm[Hg] [facility] Heart rate 2023-02-28 13:10:00 86 /min [facility] Oxygen saturation in Arterial blood by Pulse oximetry 2023-02-28 13:10:00 100 /min [facility] Body height 2023-02-28 13:09:00 157.5 cm [facility] Body weight 2023-02-28 13:09:00 66.225 kg [facility] BMI 2023-02-28 13:09:00 26.70 kg/m2 [facility] Systolic blood pressure 2023-02-21 16:52:00 118 mm[Hg] [facility] Diastolic blood pressure 2023-02-21 16:52:00 80 mm[Hg] [facility] Heart rate 2023-02-21 16:52:00 79 /min [facility] Body temperature 2023-02-21 16:52:00 36.83 Juanita [facility] Respiratory rate 2023-02-21 16:52:00 18 /min [facility] Oxygen saturation in Arterial blood by Pulse oximetry 2023-02-21 16:52:00 97 /min [facility] Body height 2023-02-19 21:02:00 157.5 cm [facility] Body weight 2023-02-19 21:02:00 66.679 kg [facility] BMI 2023-02-19 21:02:00 26.89 kg/m2 [facility] Systolic blood pressure 2023-02-18 22:18:00 162 mm[Hg] [facility] Diastolic blood pressure 2023-02-18 22:18:00 111 mm[Hg] [facility] Heart rate 2023-02-18 22:16:00 119 /min [facility] Body temperature 2023-02-18 22:16:00 35.72 Juanita [facility] Respiratory rate 2023-02-18 22:16:00 18 /min [facility] Body height 2023-02-18 22:16:00 157.5 cm [facility] Body weight 2023-02-18 22:16:00 66.769 kg [facility] BMI 2023-02-18 22:16:00 26.92 kg/m2 [facility] Oxygen saturation in Arterial blood by Pulse oximetry 2023-02-18 22:16:00 98 /min [facility] Systolic blood pressure 2023-01-24 16:09:00 148 mm[Hg] [facility] Diastolic blood pressure 2023-01-24 16:09:00 105 mm[Hg] [facility] Heart rate 2023-01-24 16:09:00 98 /min [facility] Oxygen saturation in Arterial blood by Pulse oximetry 2023-01-24 16:09:00 100 /min [facility] Body temperature 2023-01-24 16:08:00 36.22 Juanita [facility] Body height 2023-01-24 16:08:00 157.5 cm [facility] Body weight 2023-01-24 16:08:00 66.679 kg [facility] BMI 2023-01-24 16:08:00 26.89 kg/m2 [facility] Systolic blood pressure 2022-10-08 16:51:00 119 mm[Hg] [facility] Diastolic blood pressure 2022-10-08 16:51:00 76 mm[Hg] [facility] Heart rate 2022-10-08 16:51:00 72 /min [facility] Body temperature 2022-10-08 16:51:00 36.78 Juanita [facility] Respiratory rate 2022-10-08 16:51:00 21 /min [facility] Oxygen saturation in Arterial blood by Pulse oximetry 2022-10-08 16:51:00 98 /min [facility] Body height 2022-10-07 17:04:00 162.6 cm [facility] Body weight 2022-10-07 17:04:00 64.32 kg standing weight [facility] BMI 2022-10-07 17:04:00 24.34 kg/m2 [facility] Body weight 2022-09-30 13:37:00 61.236 kg [facility] BMI 2022-09-30 13:37:00 24.69 kg/m2 [facility] Systolic blood pressure 2022-09-09 16:28:00 108 mm[Hg] [facility] Diastolic blood pressure 2022-09-09 16:28:00 75 mm[Hg] [facility] Heart rate 2022-09-09 16:28:00 62 /min [facility] Body temperature 2022-09-09 16:28:00 36.78 Juanita [facility] Oxygen saturation in Arterial blood by Pulse oximetry 2022-09-09 16:28:00 97 /min [facility] Respiratory rate 2022-09-09 12:32:00 17 /min [facility] Body height 2022-09-08 21:02:00 157.5 cm [facility] Body weight 2022-09-08 21:02:00 61.236 kg [facility] BMI 2022-09-08 21:02:00 24.69 kg/m2 [facility] Systolic blood pressure 2022-08-19 16:28:00 112 mm[Hg] [facility] Diastolic blood pressure 2022-08-19 16:28:00 74 mm[Hg] [facility] Heart rate 2022-08-19 16:28:00 67 /min [facility] Body temperature 2022-08-19 16:28:00 36.83 Juanita [facility] Respiratory rate 2022-08-19 16:28:00 19 /min [facility] Oxygen saturation in Arterial blood by Pulse oximetry 2022-08-19 16:28:00 98 /min [facility] Body height 2022-08-18 15:05:00 157.5 cm [facility] Body weight 2022-08-18 15:05:00 62.596 kg [facility] BMI 2022-08-18 15:05:00 25.24 kg/m2 [facility] Systolic blood pressure 2022-06-10 19:05:00 139 mm[Hg] [facility] Diastolic blood pressure 2022-06-10 19:05:00 92 mm[Hg] [facility] Heart rate 2022-06-10 19:04:00 96 /min [facility] Body temperature 2022-06-10 19:04:00 36.56 Juanita [facility] Respiratory rate 2022-06-10 19:04:00 18 /min [facility] Body height 2022-06-10 19:04:00 157.5 cm [facility] Body weight 2022-06-10 19:04:00 65.318 kg [facility] BMI 2022-06-10 19:04:00 26.34 kg/m2 [facility] Oxygen saturation in Arterial blood by Pulse oximetry 2022-06-10 19:04:00 100 /min [facility] Systolic blood pressure 2022-05-13 19:26:00 156 mm[Hg] [facility] Diastolic blood pressure 2022-05-13 19:26:00 90 mm[Hg] [facility] Heart rate 2022-05-13 19:24:00 104 /min [facility] Body temperature 2022-05-13 19:24:00 37.11 Juanita [facility] Body height 2022-05-13 19:24:00 157.5 cm [facility] Body weight 2022-05-13 19:24:00 65.01 kg [facility] BMI 2022-05-13 19:24:00 26.21 kg/m2 [facility] Oxygen saturation in Arterial blood by Pulse oximetry 2022-05-13 19:24:00 100 /min [facility] Systolic blood pressure 2022-05-12 17:31:00 141 mm[Hg] rn notified [facility] Diastolic blood pressure 2022-05-12 17:31:00 93 mm[Hg] rn notified [facility] Heart rate 2022-05-12 17:31:00 80 /min [facility] Body temperature 2022-05-12 17:31:00 36.17 Juanita [facility] Oxygen saturation in Arterial blood by Pulse oximetry 2022-05-12 17:31:00 99 /min [facility] Respiratory rate 2022-05-12 13:15:00 18 /min [facility] Body height 2022-05-11 19:46:00 157.5 cm [facility] Body weight 2022-05-11 19:46:00 63.05 kg [facility] BMI 2022-05-11 19:46:00 25.42 kg/m2 [facility] Systolic blood pressure 2022-03-06 19:01:00 157 mm[Hg] [facility] Diastolic blood pressure 2022-03-06 19:01:00 97 mm[Hg] [facility] Heart rate 2022-03-06 18:53:00 112 /min [facility] Body temperature 2022-03-06 18:53:00 36.11 Juanita [facility] Respiratory rate 2022-03-06 18:53:00 14 /min [facility] Body height 2022-03-06 18:53:00 157.5 cm [facility] Body weight 2022-03-06 18:53:00 67.45 kg [facility] BMI 2022-03-06 18:53:00 27.20 kg/m2 [facility] Oxygen saturation in Arterial blood by Pulse oximetry 2022-03-06 18:53:00 98 /min [facility] Systolic blood pressure 2022-02-11 18:52:00 166 mm[Hg] [facility] Diastolic blood pressure 2022-02-11 18:52:00 104 mm[Hg] [facility] Heart rate 2022-02-11 18:52:00 113 /min [facility] Body height 2022-02-11 18:52:00 157.5 cm [facility] Body weight 2022-02-11 18:52:00 69.945 kg [facility] BMI 2022-02-11 18:52:00 28.20 kg/m2 [facility] Oxygen saturation in Arterial blood by Pulse oximetry 2022-02-11 18:52:00 99 /min [facility] Systolic blood pressure 2021-08-20 14:21:00 162 mm[Hg] [facility] Diastolic blood pressure 2021-08-20 14:21:00 109 mm[Hg] [facility] Heart rate 2021-08-20 14:21:00 86 /min [facility] Body height 2021-08-20 14:21:00 157.5 cm [facility] Body weight 2021-08-20 14:21:00 69.446 kg [facility] BMI 2021-08-20 14:21:00 28.00 kg/m2 [facility] Oxygen saturation in Arterial blood by Pulse oximetry 2021-08-20 14:21:00 100 /min [facility] Procedures Procedure Date / Time Performed Performing Clinician Source CT ABDOMEN PELVIS WO CONTRAST 2023-05-14 13:10:38 Buck Ziegler [facility] CONSENT/REFUSAL FOR DIAGNOSIS AND TREATMENT 2023-05-14 12:42:23 Doctor Unassigned, [place] [facility] POCT TEST 2023-05-14 12:38:00 Brijesh Ziegler [facility] XR CHEST 2 VW 2023-05-14 12:14:12 Adrianne Buchanan Yob[facility] LACTIC ACID WHOLE BLOOD 2023-05-14 11:49:00 Mary Tate [facility] COMP. METABOLIC PANEL ([id number]) 2023-05-14 11:48:00 Mary Buchanan Yobany [facility] CBC WITH DIFF 2023-05-14 11:48:00 Adrianne Buchanan Yob[facility] URINALYSIS 2023-05-14 11:48:00 Adrianne Buchanan Yobany [facility] [id number] 2023-05-05 00:00:00 ABDHA.01 [facility] [id number] 2023-05-05 00:00:00 ABDHA.01 [facility] [id number] 2023-04-26 00:00:00 ALNMA.01 [facility] [id number] 2023-04-26 00:00:00 ALNMA.01 [facility] [id number] 2023-04-26 00:00:00 JOHKR01 [facility] [id number] 2023-04-26 00:00:00 ALNMA.01 [facility] [id number] 2023-04-26 00:00:00 ALNMA.01 [facility] [id number] 2023-04-26 00:00:00 BELBR.01 [facility] [id number] 2023-04-26 00:00:00 ALNMA.01 [facility] [id number] 2023-04-26 00:00:00 BELBR.01 [facility] [id number] 2023-04-21 00:00:00 MOUDA.01 [facility] [id number] 2023-04-21 00:00:00 MOUDA.01 [facility] [id number] 2023-04-21 00:00:00 MOUDA.01 [facility] TRANSTHORACIC ECHO (TTE) COMPLETE 2023-02-21 14:56:53 Felisa Holm [facility] MAGNESIUM 2023-02-21 10:38:00 Shilo Lance [facility] COMP. METABOLIC PANEL ([id number]) 2023-02-21 10:38:00 Shilo Lance [facility] CBC WITH DIFF 2023-02-21 10:38:00 [facility] 2023-02-20 10:04:00 Felisa Holm [facility] MAGNESIUM 2023-02-20 10:04:00 Felisa Holm [facility] COMP. METABOLIC PANEL ([id number]) 2023-02-20 10:04:00 Felisa Holm [facility] CBC WITH DIFF 2023-02-20 10:04:00 Felisa Holm [facility] EKG-12 LEAD 2023-02-19 21:45:53 Marcel Dela Cruz [facility] TROPONIN I 2023-02-19 21:33:00 Felisa Holm [facility] LACTIC ACID WHOLE BLOOD 2023-02-19 21:33:00 Jose Holm [facility] URINALYSIS 2023-02-19 16:10:00 Dela Cruz, [facility] URINE CULTURE 2023-02-19 16:10:00 Dela Cruz, [facility] BLOOD CULTURE SCREEN 2023-02-19 13:51:00 Dela Cruz, [facility] TROPONIN I 2023-02-19 13:51:00 Dela Cruz, [facility] THYROID STIMULATING HORMONE 2023-02-19 13:51:00 Dela Cruz, [facility] COMP. METABOLIC PANEL ([id number]) 2023-02-19 13:51:00 Dela Cruz, [facility] CBC WITH DIFF 2023-02-19 13:51:00 Dela Cruz, [facility] N-TERMINAL PRO-BNP 2023-02-19 13:51:00 Dela Cruz, Marcel [facility] LACTIC ACID WHOLE BLOOD 2023-02-19 13:51:00 Dela CruzNettie [facility] XR CHEST 2 VW 2023-02-19 12:54:00 Dela Cruz, [facility] CONSENT/REFUSAL FOR DIAGNOSIS AND TREATMENT 2023-02-19 11:21:51 Doctor Unassigned, [facility] [facility] CRITICAL CARE 2023-02-19 11:20:00 Lanie Marcel [facility] XR CHEST 2 VW 2023-02-18 23:05:33 Dequan Ghotra [facility] POCT TEST 2023-02-18 22:37:00 Wallace Ghotra [facility] POCT SARS-COV-2 ANTIGEN (BINAX NOW) 2023-02-18 22:37:00 Dequan Ghotra [facility] ASSIGNMENT OF BENEFITS 2022-10-26 20:44:17 Docto r Unassigned, [facility] [facility] CBC WITHOUT DIFF 2022-10-08 14:48:00 Jose Juan Zepeda [facility] PREPARE PACKED RBC 2022-10-08 11:02:03 Aren Rahman in [facility] BASIC METABOLIC PANEL (NA, K, CL, CO2, GLUCOSE, BUN, CREATININE, CA) 2022-10-08 09:38:00 Maureen Levine [facility] CBC WITH DIFF 2022-10-08 09:38:00 Anjelica Jain [facility] CBC WITHOUT DIFF 2022-10-08 02:06:00 Josiah [facility] HB ABO GROUPING 2022-10-07 18:09:00 [place] [facility] OCT, RETINA - OU - BOTH EYES 2022-09-30 13:38:38 Rolo Fuentes [facility] PHOSPHORUS 2022-09-09 09:09:00 Juancarlos Cloud [facility] MAGNESIUM 2022-09-09 09:09:00 Pedro Luis [facility] BASIC METABOLIC PANEL (NA, K, CL, CO2, GLUCOSE, BUN, CREATININE, CA) 2022-09-09 09:09:00 Pedro Luis [facility] CBC WITH DIFF 2022-09-09 09:09:00 Pedro Luis [facility] PREPARE PACKED RBC 2022-09-09 03:03:04 Abhilash Liu [facility] PREPARE PACKED RBC 2022-09-08 20:29:10 Abhilash Liu [facility] CBC WITH DIFF 2022-09-08 18:01:00 [facility]hilash [facility] 2022-09-08 18:00:00 Abhilash Liu [facility] MAGNESIUM 2022-09-08 18:00:00 Abhilash Liu [facility] HEPATIC FUNCTION PANEL ([id number]) (ALB,T.PRO,BILI T,BU/BC,ALT,AST,ALK PHOS) 2022-09-08 18:00:00 Abhilash Liu [facility] BASIC METABOLIC PANEL (NA, K, CL, CO2, GLUCOSE, BUN, CREATININE, CA) 2022-09-08 18:00:00 Abhilash Liu [facility] HB ABO GROUPING 2022-09-08 18:00:00 Abhilash Liu [facility] PHOSPHORUS 2022-08-19 10:03:00 Diego [facility] [facility] MAGNESIUM 2022-08-19 10:03:00 Kavita [facility] BASIC METABOLIC PANEL (NA, K, CL, CO2, GLUCOSE, BUN, CREATININE, CA) 2022-08-19 10:03:00 Diego Walls [facility] CBC WITH DIFF 2022-08-19 10:03:00 Kavita [facility] CBC WITHOUT DIFF 2022-08-19 03:56:00 Jose Juan Zepeda [facility] PREPARE PACKED RBC 2022-08-18 22:51:35 Kavita [facility] D-DIMER 2022-08-18 16:14:00 Kavita [facility] HB ABO GROUPING 2022-08-18 16:14:00 Nika Reyes [facility] LACTIC ACID WHOLE BLOOD 2022-05-12 16:01:00 Lanie Sabillon [facility] LACTIC ACID WHOLE BLOOD 2022-05-12 07:07:00 Zina Menendez [facility] COMP. METABOLIC PANEL (96481) 2022-05-12 07:06:00 Kathy Boateng [facility] IRON PANEL 2022-05-12 07:06:00 Kathy Boateng [facility] CBC WITH DIFF 2022-05-12 07:06:00 Zina Menendez [facility] LACTIC ACID WHOLE BLOOD 2022-05-11 22:25:00 Deanna Rivas [facility] LACTIC ACID WHOLE BLOOD 2022-05-11 19:37:00 [facility] LACTIC ACID WHOLE BLOOD 2022-05-11 15:15:00 [facility] TRANSTHORACIC ECHO (TTE) COMPLETE 2022-05-11 14:57:40 [facility] COVID-19 (ID NOW RAPID TESTING) 2022-05-11 08:35:00 Haroon Villaseñor [facility] LAB ONLY COVID INTERPRETATION 2022-05-11 08:35:00 Haroon Villaseñor [facility] BLOOD CULTURE SCREEN 2022-05-11 08:05:00 Kasi [facility] XR CHEST 2 VW 2022-05-11 06:34:00 Haroon Villaseñor [facility] MAGNESIUM 2022-05-11 05:51:00 Kasi [facility] FERRITIN SERUM 2022-05-11 05:51:00 Zina Menendez [facility] TEST, SERUM 2022-05-11 05:51:00 Kasi, Nannette l [facility] TROPONIN I 2022-05-11 05:51:00 Kasi [facility] COMP. METABOLIC PANEL (51944) 2022-05-11 05:51:00 Kasi [facility] IRON PANEL 2022-05-11 05:51:00 Zina Menendez [facility] CBC WITH DIFF 2022-05-11 05:51:00 Kasi [facility] URINALYSIS 2022-05-11 05:51:00 Kasi [facility] RETICULOCYTES AUTOMATED 2022-05-11 05:51:00 Zina Menendez [facility] N-TERMINAL PRO-BNP 2022-05-11 05:51:00 Haroon Villaseñor [facility] HB ECG ROUTINE & RHYTHM STRIP 2022-05-11 04:53:26 Zina Menendez [facility] CONSENT/REFUSAL FOR DIAGNOSIS AND TREATMENT 2022-05-11 04:40:20 Doctor Unassigned, [place] [facility] POCT MOLECULAR FLU 2022-03-06 19:25:00 Unknown, Attend ing [facility] POCT MOLECULAR STREP 2022-03-06 19:06:00 Unknown, Atte case [facility] ASSIGNMENT OF BENEFITS 2021-10-24 21:23:30 Docto r Unassigned, [place] [facility] Encounters Start Date/Time End Date/Time Encounter Type Admission Type Attending Clinicians Care Facility Care Department Encounter ID Source 2023-05-25 14:50:00 2023-05-25 14:50:00 Outpatient R HORTENCIA MACEDO [facility] [id number] [facility] 2023-05-23 16:30:00 2023-05-23 16:30:00 Outpatient R [facility] [id number] [facility] 2023-05-19 00:00:00 2023-05-19 00:00:00 Telephone Ta Dimas [facility] 1..114 350.1.13.10 4.2.7.2.686 [id number] [facility] 2023-05-18 16:00:00 2023-05-18 16:15:00 Manager Social Visit Pcp-Lab Steve Redd [facility] 1.0.114 350.1.13.10 4.2.7.2.686 [id number] [facility] 2023-05-18 14:30:00 2023-05-18 15:47:28 Outpatient R STEVE REDD [facility] [id number] [facility] 2023-05-18 14:30:00 2023-05-18 15:47:28 Office Visit Flody Gallegos Laura R [facility] 1..114 350.1.13.10 4.2.7.2.686 [id number] [facility] 2023-05-14 05:19:00 2023-05-14 08:48:00 Emergency X LUC MOSER [facility] ERT [id number] [facility] 2023-05-14 05:19:00 2023-05-14 08:48:00 Emergency Buck Ziegler Ethan [facility] [place] 1..114 350.1.13.10 4.2.7.2.686 [id number] [facility] 2023-04-21 13:36:00 2023-05-13 15:03:00 Inpatient Kadie Molina [facility] EDCL INTE.02 [id number] 55 [facility] 2023-05-09 16:00:00 2023-05-09 16:00:00 Outpatient R EVELYN HERNANDEZ DO [facility] [id number] [facility] 2023-05-06 00:00:00 2023-05-06 00:00:00 Telephone aT Dimas [facility] AND [facility] 1.840.114 350.1.13.10 4.2.7.2.686 [id number] [facility] 2023-05-05 16:15:00 2023-05-05 16:15:00 Outpatient R BARRIE SAMANIEGO [facility] [id number] [facility] 2023-04-21 00:00:00 2023-04-21 00:00:00 RefEvelyn Jeong do [facility] AND [facility] 1.2840.114 350.1.13.10 4.2.7.2.686 [id number] [facility] 2023-04-21 00:00:00 2023-04-21 00:00:00 Telephone Norbert Farfan [facility] AND [facility] 1.0.114 350.1.13.10 4.2.7.2.686 [id number] [facility] 2023-04-13 09:00:00 2023-04-13 09:00:00 Outpatient R [facility] [id number] [facility] 2023-04-12 13:45:00 2023-04-12 13:45:00 Outpatient R HUMPHREY GOLDSTEIN [facility] [id number] [facility] 2023-04-07 14:00:00 2023-04-07 14:00:00 Outpatient R CHERIEBARRIE KIRKLAND [facility] [id number] [facility] 2023-04-07 00:00:00 2023-04-07 00:00:00 Patient Secure Msg Pcp, Patient Does Not Have A [facility] 1.20.114 350.1.13.10 4.2.7.2.686 [id number] [facility] 2023-04-04 13:00:00 2023-04-04 13:00:00 Outpatient R [facility] [id number] [facility] 2023-03-28 10:20:00 2023-03-28 14:43:39 Outpatient R EVELYN HERNANDEZ DO [facility] [id number] [facility] 2023-03-28 10:20:00 2023-03-28 14:43:39 Office Visit Norbert Farfan do, Ann K N [facility] AND [facility] 1..114 350.1.13.10 4.2.7.2.686 [id number] [facility] 2023-03-28 00:00:00 2023-03-28 00:00:00 [facility] (Out[facility] 1..114 350.1.13.10 4.2.7.2.686 [id number] [facility] 2023-03-28 00:00:00 2023-03-28 00:00:00 Patient Secure Msg Steve Redd [facility] AMELIAILLION 1.0.114 350.1.13.10 4.2.7.2.686 [id number] [facility] 2023-03-21 16:00:00 2023-03-21 16:15:00 Manager Social Visit Anabella-Cristina Concepcion do, Ann K N [facility] AND [facility] 1.2840.114 350.1.13.10 4.2.7.2.686 [id number] [facility] 2023-03-21 16:00:00 2023-03-21 16:00:00 Outpatient R ALEXANDRA MORILLO [facility] [id number] [facility] 2023-03-04 00:00:00 2023-03-04 00:00:00 Telephone Michael [facility] PLAANDR[facility] 1.2.840.114 350.1.13.10 4.2.7.2.686 [id number] [facility] 2023-03-03 09:15:00 2023-03-03 09:30:00 Office Visit Michael [facility] FIONA 1.2.840.114 350.1.13.10 4.2.7.2.686 [id number] [facility] 2023-03-03 09:15:00 2023-03-03 09:15:00 Outpatient Leonard GOLDSTEIN [facility] [id number] [facility] 2023-03-03 00:00:00 2023-03-03 00:00:00 Telephone Norbert [facility]fan [facility] 1.840.114 350.1.13.10 4.2.7.2.686 [id number] [facility] 2023-03-02 17:00:00 2023-03-02 17:15:00 Manager Social Visit Vtc-Lab Evelyn Hernandez do [facility] MULTISPEC [facility]TY C[facility] AND [facility] 1.2.840.114 350.1.13.10 4.2.7.2.686 [id number] [facility] 2023-03-02 17:00:00 2023-03-02 17:00:00 Outpatient R EVELYN HERNANDEZ DO [facility] [id number] [facility] 2023-03-02 00:00:00 2023-03-02 00:00:00 Telephone Evelyn Hernandez do [facility] AND [facility] 1.2840.114 350.1.13.10 4.2.7.2.686 [id number] [facility] 2023-03-02 00:00:00 2023-03-02 00:00:00 Patient Secure Msg Doctor Unassigned, [place] [facility] 1.2840.114 350.1.13.10 4.2.7.2.686 [id number] [facility] 2023-03-01 00:00:00 2023-03-01 00:00:00 Telephone Evelyn Hernandez do [facility] 1.2840.114 350.1.13.10 4.2.7.2.686 [id number] [facility] 2023-03-01 00:00:00 2023-03-01 00:00:00 Telephone Ta Dimas [facility] 1.2840.114 350.1.13.10 4.2.7.2.686 [id number] [facility] 2023-03-01 00:00:00 2023-03-01 00:00:00 Patient Secure Msg Doctor Unassigned, [place] [facility] 1.2840.114 350.1.13.10 4.2.7.2.686 [id number] [facility] 2023-02-28 09:15:00 2023-02-28 09:30:00 Manager Social Visit Vtc-Lab Evelyn Hernandez do [facility] AND [facility] 1.2.840.114 350.1.13.10 4.2.7.2.686 [id number] [facility] 2023-02-28 08:00:00 2023-02-28 09:12:18 Outpatient R EVELYN HERNANDEZ DO [facility] [id number] [facility] 2023-02-28 08:00:00 2023-02-28 09:12:18 Office Visit Norbert Farfan do, Evelyn Anand [facility] 1.2.840.114 350.1.13.10 4.2.7.2.686 [id number] [facility] 2023-02-23 00:00:00 2023-02-23 00:00:00 Telephone Hoa Bourgeois [facility] 1.2.840.114 350.1.13.10 4.2.7.2.686 [id number] [facility] 2023-02-22 00:00:00 2023-02-22 00:00:00 Telephone Alexandra morillo, Evelyn Anand [facility]ALTY [place] [facility] 1.2.840.114 350.1.13.10 4.2.7.2.686 [id number] [facility] 2023-02-22 00:00:00 2023-02-22 00:00:00 Transition of Care Mary Maria F[facility] 1.2.840.114 350.1.13.10 4.2.7.2.686 [id number] [facility] 2023-02-22 00:00:00 2023-02-22 00:00:00 Patient Secure Msg Alexandra morillo, Evelyn Anand [facility] 1.2.840.114 350.1.13.10 4.2.7.2.686 [id number] [facility] 2023-02-19 06:35:00 2023-02-21 17:43:00 Inpatient X DM RUVALCABAEEB [facility] [id number] [facility] 2023-02-19 06:35:00 2023-02-21 17:43:00 Hospital Encounter Dela CruzMarcelKelly Alyssa Amyjama [facility] 1..114 350.1.13.10 4.2.7.2.686 [id number] [facility] 2023-02-21 11:00:00 2023-02-21 11:00:00 Outpatient R EVELYN HERNANDEZ DO [facility] [id number] [facility] 2023-02-18 17:54:51 2023-02-18 23:59:00 Hospital Encounter [facility]hot[facility] 1..114 350.1.13.10 4.2.7.2.686 [id number] [facility] 2023-02-18 17:15:00 2023-02-18 18:12:20 Outpatient R DEQUAN GHOTRA SHAHNAZ [facility] [id number] [facility] 2023-02-18 17:15:00 2023-02-18 18:12:20 Urgent Care Dequan Ghotra Unknown, Attending MELANIA [facility] 1..114 350.1.13.10 4.2.7.2.686 [id number] [facility] 2023-02-18 00:00:00 2023-02-18 00:00:00 Letter (Out) Dequan Ghotra [facility] 1..114 350.1.13.10 4.2.7.2.686 [id number] [facility] 2023-02-15 16:45:00 2023-02-15 17:00:00 Manager Social Visit Vtc-Lab Evelyn Hernandez do [facility] AND [facility] 1.2840.114 350.1.13.10 4.2.7.2.686 [id number] [facility] 2023-02-15 16:45:00 2023-02-15 16:45:00 Outpatient R EVELYN HERNANDEZ DO [facility] [id number] [facility] 2023-02-03 00:00:00 2023-02-03 00:00:00 Letter (Out) Ta Dimas [facility] 1.840.114 350.1.13.10 4.2.7.2.686 [id number] [facility] 2023-02-02 00:00:00 2023-02-02 00:00:00 Telephone Evelyn Hernandez do [facility] 1.840.114 350.1.13.10 4.2.7.2.686 [id number] [facility] 2023-01-27 00:00:00 2023-01-27 00:00:00 Telephone Jh Hilton Oz [facility] AND [facility] 1.840.114 350.1.13.10 4.2.7.2.686 [id number] [facility] 2023-01-27 00:00:00 2023-01-27 00:00:00 Telephone Jh Hilton [facility] MULTISPEC [facility]TY CENTER AND [facility] 1.840.114 350.1.13.10 4.2.7.2.686 [id number] [facility] 2023-01-27 00:00:00 2023-01-27 00:00:00 Telephone Jh Hilton [facility]TY [place] [facility] 1..114 350.1.13.10 4.2.7.2.686 [id number] [facility] 2023-01-26 00:00:00 2023-01-26 00:00:00 Patient Secure Alexandra morillo, Evelyn Anand [facility] IAY [place] [facility] 1..114 350.1.13.10 4.2.7.2.686 [id number] [facility] 2023-01-25 12:15:00 2023-01-25 12:30:00 Manager Social Visit Vtc-Lab Alexandra morillo, Evelyn [facility] 1..114 350.1.13.10 4.2.7.2.686 [id number] [facility] 2023-01-25 12:15:00 2023-01-25 12:15:00 Outpatient R ALEXANDRA MORILLO [facility] [id number] [facility] 2023-01-24 11:00:00 2023-01-24 12:19:21 Outpatient R EVELYN HERNANDEZ DO [facility] [id number] [facility] 2023-01-24 11:00:00 2023-01-24 12:19:21 Office Visit Jh Hilton do, Evelyn [facility] 1..114 350.1.13.10 4.2.7.2.686 [id number] [facility] 2023-01-07 00:00:00 2023-01-07 00:00:00 Telephone Racheal Sierra [facility] 1.2.840.114 350.1.13.10 4.2.7.2.686 [id number] [facility] 2022-12-29 00:00:00 2022-12-29 00:00:00 Evelyn Akhtar do [facility] MULTISPEC [facility]TY CENTER AND [facility] 1.2.840.114 350.1.13.10 4.2.7.2.686 [id number] [facility] 2022-12-28 00:00:00 2022-12-28 00:00:00 Racheal Ragland [facility] 1.2.840.114 350.1.13.10 4.2.7.2.686 [id number] [facility] 2022-12-23 00:00:00 2022-12-23 00:00:00 Racheal Ragland [facility] 1.2.840.114 350.1.13.10 4.2.7.2.686 [id number] [facility] 2022-12-15 10:30:00 2022-12-15 10:45:00 Manager Social Visit Lab, Ronn Rios [facility] 1.2.840.114 350.1.13.10 4.2.7.2.686 [id number] [facility] 2022-12-15 10:30:00 2022-12-15 10:30:00 Outpatient RONN SPRINGER [facility] [id number] [facility] 2022-12-14 00:00:00 2022-12-14 00:00:00 Telephone Jh Hilton [facility]ULT[facility]PEC [facility] AND [facility] 1.2.840.114 350.1.13.10 4.2.7.2.686 [id number] [facility] 2022-12-13 16:00:00 2022-12-13 16:00:00 Outpatient R [facility] [id number] [facility] 2022-12-07 16:30:00 2022-12-07 16:45:00 Manager Social Visit [facility] Concepcion [facility] 1.2840.114 350.1.13.10 4.2.7.2.686 [id number] [facility] 2022-12-07 16:30:00 2022-12-07 16:30:00 Outpatient R RACHEAL SIERRA [facility] [id number] [facility] 2022-12-04 00:00:00 2022-12-04 00:00:00 Case Management Bianka [facility]AV[facility] 1.2840.114 350.1.13.10 4.2.7.2.686 [id number] [facility] 2022-11-16 00:00:00 2022-11-16 00:00:00 Refill Racheal Sierra [facility] 1.2.840.114 350.1.13.10 4.2.7.2.686 [id number] [facility] 2022-11-11 13:00:00 2022-11-11 15:18:48 Outpatient R RACHEAL SIERRA [facility] [id number] [facility] 2022-11-11 14:15:00 2022-11-11 14:30:00 Manager Social Visit [facility] Concepcion [facility] 1.2.840.114 350.1.13.10 4.2.7.2.686 [id number] [facility] 2022-11-11 00:00:00 2022-11-11 00:00:00 Case Management Bianka [facility] 1.2.840.114 350.1.13.10 4.2.7.2.686 [id number] [facility] 2022-11-09 00:00:00 2022-11-09 00:00:00 Telephone Ta Dimas [facility] 1.2.840.114 350.1.13.10 4.2.7.2.686 [id number] [facility] 2022-11-03 00:00:00 2022-11-03 00:00:00 Refill Bianka [facility] 1.2.840.114 350.1.13.10 4.2.7.2.686 [id number] [id number] [facility] 2022-10-26 15:45:00 2022-10-26 16:00:00 Manager Social Visit Vtc-Lab Bianka [facility] 1.2.840.114 350.1.13.10 4.2.7.2.686 [id number] [facility] 2022-10-26 15:45:00 2022-10-26 15:45:00 Outpatient R RACHEAL SIERRA [facility] [id number] [facility] 2022-10-26 00:00:00 2022-10-26 00:00:00 Orders Only Doctor Unassigned, [place] [facility] 1.2.840.114 350.1.13.10 4.2.7.2.686 [id number] [facility] 2022-10-20 00:00:00 2022-10-20 00:00:00 Case Management Bianka [facility] 1.2.840.114 350.1.13.10 4.2.7.2.686 [id number] [facility] 2022-10-10 00:00:00 2022-10-10 00:00:00 Jose Juan Cuevas [facility] 1.2.840.114 350.1.13.10 4.2.7.2.686 [id number] [facility] 2022-10-07 11:57:00 2022-10-08 14:39:00 Outpatient U REYMUNDO NOWAK [facility] [id number] [facility] 2022-10-07 11:57:00 2022-10-08 14:39:00 Hospital Encounter Reymundo Nowak [facility] 1.2.840.114 350.1.13.10 4.2.7.2.686 [id number] [facility] 2022-10-06 14:30:00 2022-10-06 14:45:00 Manager Social Visit [facility] Concepcion [facility] MULTISPEC [facility] AND [facility] 1.0.114 350.1.13.10 4.2.7.2.686 [id number] [facility] 2022-10-06 14:30:00 2022-10-06 14:30:00 Outpatient R RACHEAL SIERRA [facility] [id number] [facility] 2022-10-03 00:00:00 2022-10-03 00:00:00 Case Management Racheal Sierra [facility] MAR[facility] 1.2840.114 350.1.13.10 4.2.7.2.686 [id number] [id number] [facility] 2022-09-30 08:15:00 2022-09-30 08:30:00 Office Visit Rolo Fuentes [facility]ULT[facility]PEC [facility] AND [facility] 1.284.114 350.1.13.10 4.2.7.2.686 [id number] [facility] 2022-09-30 08:15:00 2022-09-30 08:15:00 Outpatient R ROLO FUENTES [facility] [id number] [facility] 2022-09-30 00:00:00 2022-09-30 00:00:00 Letter (Out) Rolo Fuentes [facility] 1.2.840.114 350.1.13.10 4.2.7.2.686 [id number] [facility] 2022-09-29 16:30:00 2022-09-29 16:45:00 Manager Social Visit Vtc-Lab Bianka Racheal Ramírez [facility] 1.2.840.114 350.1.13.10 4.2.7.2.686 [id number] [facility] 2022-09-29 16:30:00 2022-09-29 16:30:00 Outpatient R BIANKA RACHEAL [facility] [id number] [facility] 2022-09-24 00:00:00 2022-09-24 00:00:00 Case Management Racheal Sierra [facility] 1.2.840.114 350.1.13.10 4.2.7.2.686 [id number] [facility] 2022-09-15 00:00:00 2022-09-15 00:00:00 Telephone Bianka Racheal Ramírez [facility] 1.2.840.114 350.1.13.10 4.2.7.2.686 [id number] [facility] 2022-09-13 00:00:00 2022-09-13 00:00:00 Case Management Bianka Racheal Ramírez [facility] 1.2.840.114 350.1.13.10 4.2.7.2.686 [id number] [facility] 2022-09-10 00:00:00 2022-09-10 00:00:00 Case Management Bianka Racheal [facility] 1.2.840.114 350.1.13.10 4.2.7.2.686 [id number] [facility] 2022-09-08 11:50:00 2022-09-09 15:55:00 Outpatient R KELLY ILM [facility] [id number] [facility] 2022-09-08 11:50:00 2022-09-09 15:55:00 Hospital Encounter Ian Limashkandesiree [facility] 1.2.840.114 350.1.13.10 4.2.7.2.686 [id number] [facility] 2022-09-09 13:00:00 2022-09-09 13:00:00 Outpatient R RACHEAL SIERRA [facility] [id number] [facility] 2022-09-06 15:15:00 2022-09-06 15:30:00 Manager Social Visit Pcp-Lab Steve Redd [facility] 1.2.840.114 350.1.13.10 4.2.7.2.686 [id number] [facility] 2022-09-06 15:15:00 2022-09-06 15:15:00 Outpatient R STEVE REDD [facility] [id number] [facility] 2022-09-06 00:00:00 2022-09-06 00:00:00 Case Management Racheal Sierra [facility] 1.2.840.114 350.1.13.10 4.2.7.2.686 [id number] [facility] 2022-08-28 00:00:00 2022-08-28 00:00:00 Case Management Racheal Sierra [facility] PRIMARY CARE PAVILLION 1.2.840.114 350.1.13.10 4.2.7.2.686 [id number] 044 [id number] [facility] 2022-08-24 00:00:00 2022-08-24 00:00:00 Case Management Racheal Sierra [facility] PRIMARY CARE PAVILLION 1.2.840.114 350.1.13.10 4.2.7.2.686 [id number] 044 [id number] [facility] 2022-08-24 00:00:00 2022-08-24 00:00:00 Case Management Racheal Sierra [facility] PRIMARY CARE PAVILLION 1.2.840.114 350.1.13.10 4.2.7.2.686 [id number] 044 [id number] [facility] 2022-08-23 00:00:00 2022-08-23 00:00:00 Case Management Racheal Sierra [facility] PRIMARY CARE PAVILLION 1.2.840.114 350.1.13.10 4.2.7.2.686 [id number] 044 [id number] [facility] 2022-08-23 00:00:00 2022-08-23 00:00:00 Refill Racheal Sierra [facility] PRIMARY CARE PAVILLION 1.2.840.114 350.1.13.10 4.2.7.2.686 [id number] 044 [id number] [facility] 2022-08-20 00:00:00 2022-08-20 00:00:00 Case Management Racheal Sierra [facility] PRIMARY CARE PAVILLION 1.2.840.114 350.1.13.10 4.2.7.2.686 [id number] 044 [id number] [facility] 2022-08-18 10:06:00 2022-08-19 15:55:00 Outpatient R KELLY LIM [facility] [id number] [facility] 2022-08-18 10:06:00 2022-08-19 15:55:00 Hospital Encounter Kelly Lim [facility] 1.2.840.114 350.1.13.10 4.2.7.2.686 [id number] [facility] 2022-08-17 17:00:00 2022-08-17 17:15:00 Manager Social Visit Mec-Racheal Concepcion [facility] 1.2.840.114 350.1.13.10 4.2.7.2.686 [id number] [facility] 2022-08-17 17:00:00 2022-08-17 17:00:00 Outpatient R RACHEAL SIERRA [facility] [id number] [facility] 2022-08-16 00:00:00 2022-08-16 00:00:00 Case Management Bianka [facility] PRIMARY CARE PAVILLION 1.2.840.114 350.1.13.10 4.2.7.2.686 [id number] 044 [id number] [facility] 2022-08-06 00:00:00 2022-08-06 00:00:00 Refill Bianka [facility] PRIMARY CARE PAVILLION 1.2.840.114 350.1.13.10 4.2.7.2.686 [id number] 044 [id number] [facility] 2022-08-05 14:00:00 2022-08-05 14:00:00 Outpatient ROLO VERDUZCO [facility] [id number] [facility] 2022-08-04 00:00:00 2022-08-04 00:00:00 Case Management Bianka [facility] PRIMARY CARE PAVILLION 1.2.840.114 350.1.13.10 4.2.7.2.686 [id number] 044 [id number] [facility] 2022-07-25 00:00:00 2022-07-25 00:00:00 Case Management Bianka [facility] PRIMARY CARE PAVILLION 1.2.840.114 350.1.13.10 4.2.7.2.686 [id number] 044 [id number] [facility] 2022-07-09 00:00:00 2022-07-09 00:00:00 Refill Racheal Sierra [facility] PRIMARY CARE PAVILLION 1.2.840.114 350.1.13.10 4.2.7.2.686 [id number] 044 [id number] [facility] 2022-07-01 08:30:00 2022-07-01 08:30:00 Outpatient ROLO VERDUZCO [facility] [id number] [facility] 2022-06-10 13:00:00 2022-06-10 16:44:40 Office Visit Racheal Sierra [facility] PRIMARY CARE PAVILLION 1.2.840.114 350.1.13.10 4.2.7.2.686 [id number] 044 [id number] [facility] 2022-06-10 14:15:00 2022-06-10 14:30:00 Manager Social Visit Pcp-Lab BiankaRacheal [facility] PRIMARY CARE PAVILLION 1.2.840.114 350.1.13.10 4.2.7.2.686 [id number] [facility] 2022-06-10 14:15:00 2022-06-10 14:15:00 Outpatient R BIANKA RACHEAL [facility] [id number] [facility] 2022-06-10 00:00:00 2022-06-10 00:00:00 Case Management Racheal Sierra [facility] PRIMARY CARE PAVILLION 1.2.840.114 350.1.13.10 4.2.7.2.686 [id number] 044 [id number] [facility] 2022-06-04 00:00:00 2022-06-04 00:00:00 Case Management Racheal Sierra [facility] PRIMARY CARE PAVILLION 1.2.840.114 350.1.13.10 4.2.7.2.686 [id number] 044 [id number] [facility] 2022-05-26 00:00:00 2022-05-26 00:00:00 Racheal Ragland [facility] PRIMARY CARE PAVMARYANNEON 1.2.840.114 350.1.13.10 4.2.7.2.686 [id number] 044 [id number] [facility] 2022-05-21 00:00:00 2022-05-21 00:00:00 Refill Racheal Sierra [facility] PRIMARY CARE PAVMARYANNEON 1.2.840.114 350.1.13.10 4.2.7.2.686 [id number] 044 [id number] [facility] 2022-05-18 00:00:00 2022-05-18 00:00:00 Telephone Racheal Sierra [facility] PRIMARY CARE MARLENE 1.2.840.114 350.1.13.10 4.2.7.2.686 [id number] 044 [id number] [facility] 2022-05-13 13:30:00 2022-05-13 16:12:13 Outpatient R RACHEAL SIERRA [facility] [id number] [facility] 2022-05-13 13:30:00 2022-05-13 16:12:13 Office Visit Racheal Sierra [facility] PRIMARY CARE MARLENE 1.2.840.114 350.1.13.10 4.2.7.2.686 [id number] 044 [id number] [facility] 2022-05-13 00:00:00 2022-05-13 00:00:00 Case Management Racheal Sierra [facility] PRIMARY CARE MARLENE 1.2.840.114 350.1.13.10 4.2.7.2.686 [id number] 044 [id number] [facility] 2022-05-10 22:41:00 2022-05-12 16:07:00 Outpatient ROBERT TOLEDO II [facility] [id number] [facility] 2022-05-10 22:41:00 2022-05-12 16:07:00 Emergency Haroon Villaseñor Michael [facility] 1.2.840.114 350.1.13.10 4.2.7.2.686 [id number] [facility] 2022-04-29 00:00:00 2022-04-29 00:00:00 Letter (Out) Cesar Palma [facility] 1.2.840.114 350.1.13.10 4.2.7.2.686 [id number] 019 [id number] [facility] 2022-04-28 18:00:00 2022-04-28 18:15:00 Laboratory Only Only, Colleen Uc Test Unknown, Attending Noah Mu[facility]oz [facility] 1.2.840.114 350.1.13.10 4.2.7.2.686 [id number] [facility] 2022-04-28 18:00:00 2022-04-28 18:13:14 Outpatient R NOAH MUÑOZ [facility] [id number] [facility] 2022-04-27 00:00:00 2022-04-27 00:00:00 Refill Racheal Sierra [facility] PRIMARY CARE PAVILLION 1.2.840.114 350.1.13.10 4.2.7.2.686 [id number] 044 [id number] [facility] 2022-04-27 00:00:00 2022-04-27 00:00:00 Case Management Racheal Seirra [facility] PRIMARY CARE PAVILLION 1.2.840.114 350.1.13.10 4.2.7.2.686 [id number] [id number] [facility] 2022-03-19 00:00:00 2022-03-19 00:00:00 Case Management Racheal Sierra [facility] PRIMARY CARE PAVILLION 1.2.840.114 350.1.13.10 4.2.7.2.686 [id number] 044 [id number] [facility] 2022-03-17 16:00:00 2022-03-17 16:15:00 Manager Social Visit [facility] [place] [place] [facility] 1.840.114 350.1.13.10 4.2.7.2.686 [id number] [facility] 2022-03-17 16:00:00 2022-03-17 16:00:00 Outpatient R RACHEAL SIERRA [facility] [id number] [facility] 2022-03-14 00:00:00 2022-03-14 00:00:00 Refill [facility] PRIMARY CARE PAVILLION 1.2.840.114 350.1.13.10 4.2.7.2.686 [id number] 044 [id number] [facility] 2022-03-10 00:00:00 2022-03-10 00:00:00 Case Management Bianka [facility] PRIMARY CARE PAVILLION 1.2840.114 350.1.13.10 4.2.7.2.686 [id number] 044 [id number] [facility] 2022-03-06 14:00:00 2022-03-06 14:15:00 Urgent Care Cristina Foster, Attending MELANIA [facility] 1..114 350.1.13.10 4.2.7.2.686 [id number] [facility] 2022-03-06 14:00:00 2022-03-06 14:00:00 Outpatient CRISTINA ROTH [facility] [id number] [facility] 2022-03-05 00:00:00 2022-03-05 00:00:00 [facility] PRIMARY CARE PAVILLION 1.2840.114 350.1.13.10 4.2.7.2.686 [id number] 044 [id number] [facility] 2022-03-03 16:45:00 2022-03-03 17:00:00 Manager Social Visit Vtc-Lab Bianka [facility] 1.2.840.114 350.1.13.10 4.2.7.2.686 [id number] [facility] 2022-03-03 16:45:00 2022-03-03 16:45:00 Outpatient R RACHEAL SIERRA [facility] [id number] [facility] 2022-03-02 00:00:00 2022-03-02 00:00:00 Case Management Racheal Sierra [facility] PRIMARY CARE PAVILLION 1.2.840.114 350.1.13.10 4.2.7.2.686 [id number] 044 [id number] [facility] 2022-02-11 14:00:00 2022-02-11 15:37:48 Outpatient R RACHEAL SIERRA [facility] [id number] [facility] 2022-02-11 14:00:00 2022-02-11 15:37:48 Office Visit Racheal Sierra [facility] PRIMARY CARE PAVILLION 1.2.840.114 350.1.13.10 4.2.7.2.686 [id number] 044 [id number] [facility] 2022-02-11 14:30:00 2022-02-11 14:45:00 Manager Social Visit Pcp-Lab Racheal Sierra [facility] PRIMARY CARE PAVILLION 1.2.840.114 350.1.13.10 4.2.7.2.686 [id number] [facility] 2022-02-11 00:00:00 2022-02-11 00:00:00 Case Management Racheal Sierra [facility] PRIMARY CARE PAVILLION 1.2.840.114 350.1.13.10 4.2.7.2.686 [id number] 044 [id number] [facility] 2021-12-29 00:00:00 2021-12-29 00:00:00 Case Management Racheal Sierra [facility] PRIMARY CARE PAVILLION 1.2.840.114 350.1.13.10 4.2.7.2.686 [id number] 044 [id number] [facility] 2021-12-28 00:00:00 2021-12-28 00:00:00 Case Management Racheal Sierra [facility] PRIMARY CARE [place]AV[place] 1.2.840.114 350.1.13.10 4.2.7.2.686 [id number] 044 [id number] [facility] 2021-12-23 14:15:00 2021-12-23 14:30:00 Manager Social Visit Vtc-Lab Bianka [facility]al [facility] 1.2.840.114 350.1.13.10 4.2.7.2.686 [id number] [facility] 2021-12-23 14:15:00 2021-12-23 14:15:00 Outpatient BIANKA [facility] [id number] [facility] 2021-12-17 10:00:00 2021-12-17 10:00:00 Outpatient R BIANKA [facility] [id number] [facility] 2021-12-16 00:00:00 2021-12-16 00:00:00 Case Management [facility] PRIMARY CARE MARLENE 1.2.840.114 350.1.13.10 4.2.7.2.686 [id number] 044 [id number] [facility] 2021-12-03 00:00:00 2021-12-03 00:00:00 Refill Racheal Sierra [facility] CARE [place] 1.2.840.114 350.1.13.10 4.2.7.2.686 [id number] 044 [id number] [facility] 2021-11-11 12:30:00 2021-11-11 23:59:00 Hospital Encounter Ta Dimas [facility] 1.2.840.114 350.1.13.10 4.2.7.2.686 [id number] 040 [id number] [facility] 2021-11-11 00:00:00 2021-11-11 23:59:00 Outpatient R TA DIMAS [facility] ACO [id number] [facility] 2021-11-11 15:30:00 2021-11-11 15:45:00 Manager Social Visit [facility] Racheal Sierra [facility] AND [facility] 1..114 350.1.13.10 4.2.7.2.686 [id number] [facility] 2021-11-08 00:00:00 2021-11-08 00:00:00 Case Management Racheal Sierra [facility] PRIMARY CARE PAVMARYANNEON 1.2.114 350.1.13.10 4.2.7.2.686 [id number] 044 [id number] [facility] 2021-11-06 16:45:00 2021-11-06 16:45:00 Outpatient R [facility] [id number] [facility] 2021-11-05 16:00:00 2021-11-05 16:00:00 Outpatient R BIANKA RACHEAL [facility] [id number] [facility] 2021-10-29 00:00:00 2021-10-29 00:00:00 Case Management Bianka [facility] PRIMARY CARE PAVMARYANNEON 1.2.114 350.1.13.10 4.2.7.2.686 [id number] 044 [id number] [facility] 2021-10-24 16:30:00 2021-10-24 16:30:00 Laboratory Only Only, Colleen Uc Test Unknown, Attending Amber Hurtado [facility] 1..114 350.1.13.10 4.2.7.2.686 [id number] 370 [id number] [facility] 2021-10-24 16:30:00 2021-10-24 16:26:25 Outpatient R AMBER HURTADO [facility] [id number] [facility] 2021-10-24 00:00:00 2021-10-24 00:00:00 Orders Only Doctor Unassigned, [place] [facility] 1.2.840.114 350.1.13.10 4.2.7.2.686 [id number] [facility] 2021-10-15 00:00:00 2021-10-15 00:00:00 Refill Bianka Racheal Ramírez [facility] PRIMARY CARE PAVILLION 1.2.840.114 350.1.13.10 4.2.7.2.686 [id number] 044 [id number] [facility] 2021-08-20 11:30:00 2021-08-20 11:45:00 Manager Social Visit Pcp-Lab Bianka Racheal Desiree [facility] PRIMARY CARE PAVILLION 1.2.840.114 350.1.13.10 4.2.7.2.686 [id number] 366 [id number] [facility] 2021-08-20 09:00:00 2021-08-20 11:10:07 Office Visit BiankaRacheal [facility] PRIMARY CARE PAVMARYANNEON 1.2.840.114 350.1.13.10 4.2.7.2.686 [id number] 044 [id number] [facility] 2021-08-20 09:00:00 2021-08-20 11:10:07 Outpatient R RACHEAL SIERRA [facility] [id number] [facility] 2021-08-20 09:00:00 2021-08-20 09:00:00 Outpatient R RACHEAL SIERRA [facility] [id number] [facility] 2021-08-19 00:00:00 2021-08-19 00:00:00 Case Management Bianka Racheal Ramírez [facility] PRIMARY CARE PAVILLION 1.2.840.114 350.1.13.10 4.2.7.2.686 [id number] 044 [id number] [facility] 2021-07-21 00:00:00 2021-07-21 00:00:00 Case Management Bianka [facility] PRIMARY CARE PAVILLION 1.2.840.114 350.1.13.10 4.2.7.2.686 [id number] 044 [id number] [facility] 2021-07-19 00:00:00 2021-07-19 00:00:00 Racheal Ragland [facility] PRIMARY CARE PAVILLION 1.2.840.114 350.1.13.10 4.2.7.2.686 [id number] 044 [id number] [facility] 2021-06-30 00:00:00 2021-06-30 00:00:00 [facility] PR[facility] CARE PAVILLION 1.2.840.114 350.1.13.10 4.2.7.2.686 [id number] 044 [id number] [facility] 2021-06-25 15:00:00 2021-06-25 15:15:00 Manager Social Visit [facility] Bianka [facility] AND [facility] 1.2.840.114 350.1.13.10 4.2.7.2.686 [id number] [facility] 2021-06-25 15:00:00 2021-06-25 15:00:00 Outpatient R RACHEAL SIERRA [facility] [id number] [facility] 2021-06-25 10:00:00 2021-06-25 10:00:00 Outpatient R BIANKA RACHEAL [facility] [id number] [facility] 2021-06-24 00:00:00 2021-06-24 00:00:00 Case Management [facility] PRIMARY CARE PAVILLION 1.2.840.114 350.1.13.10 4.2.7.2.686 [id number] 044 [id number] [facility] 2021-06-19 00:00:00 2021-06-19 00:00:00 Case Management [facility] PRIMARY CARE PAVILLION 1.2.840.114 350.1.13.10 4.2.7.2.686 [id number] 044 [id number] [facility] 2021-06-08 00:00:00 2021-06-08 00:00:00 Orders Only Doctor Unassigned, [place] [facility] 1.2840.114 350.1.13.10 4.2.7.2.686 [id number] [facility] 2021-06-07 00:00:00 2021-06-07 00:00:00 Case Management Racheal Sierra [facility] PRIMARY CARE PAVILLION 1.2840.114 350.1.13.10 4.2.7.2.686 [id number] 044 [id number] [facility] 2021-06-04 14:30:00 2021-06-04 16:30:08 Outpatient R ROLO FUENTES [facility] [id number] [facility] 2021-06-04 14:30:00 2021-06-04 16:30:08 Office Visit Rolo Fuentes [facility] 1.0.114 350.1.13.10 4.2.7.2.686 [id number] [facility] 2021-05-30 00:00:00 2021-05-30 00:00:00 Case Management Racheal Sierra [facility] PRIMARY CARE PAVILLION 1.2840.114 350.1.13.10 4.2.7.2.686 [id number] 044 [id number] [facility] 2021-05-27 21:50:00 2021-05-28 18:45:00 Outpatient KELLY MCCOY [facility] [id number] [facility] 2021-05-27 21:50:00 2021-05-28 18:45:00 Hospital Encounter Robert Arroyo Quratulanne H [facility] 1.2840.114 350.1.13.10 4.2.7.2.686 [id number] [facility] 2021-05-27 21:50:00 2021-05-28 18:45:00 Outpatient KELLY MCCOY [facility] [id number] [facility] 2021-05-27 00:00:00 2021-05-27 00:00:00 Refill Racheal Sierra [facility] PRIMARY CARE PAVILLION 1.0.114 350.1.13.10 4.2.7.2.686 [id number] 044 [id number] [facility] 2021-05-04 14:30:00 2021-05-04 15:30:00 Nurse Visit Therapy, Db Anguol [facility] 1..114 350.1.13.10 4.2.7.2.686 [id number] 053 [id number] [facility] 2021-05-04 14:30:00 2021-05-04 14:30:00 Outpatient DB MCCARTHY [facility] [id number] [facility] 2021-05-04 00:00:00 2021-05-04 00:00:00 Orders Only Doctor Unassigned, [place] [facility] 1..114 350.1.13.10 4.2.7.2.686 [id number] [id number] [facility] 2021-05-02 00:00:00 2021-05-02 00:00:00 Case Management Racheal Sierra [facility] PRIMARY CARE PAVILLION 1..114 350.1.13.10 4.2.7.2.686 [id number] 044 [id number] [facility] 2021-05-01 14:30:00 2021-05-01 14:45:00 Laboratory Only Only, Fri Cbc Test Chong Azar [facility] 1..114 350.1.13.10 4.2.7.2.686 [id number] [facility] 2021-05-01 14:30:00 2021-05-01 14:37:02 Outpatient R CHONG AZAR [facility] [id number] [facility] 2021-04-27 00:00:00 2021-04-27 00:00:00 Case Management Bianka Racheal Desiree [facility] PRIMARY CARE PAVILLION 1.2.840.114 350.1.13.10 4.2.7.2.686 [id number] 044 [id number] [facility] 2021-04-09 10:30:00 2021-04-09 10:30:00 Outpatient R STEVE REDD [facility] [id number] [facility] 2021-04-09 09:42:02 2021-04-09 09:57:02 Manager Social Visit Pcp-Lab Steve Redd [facility] PRIMARY CARE PAVILLION 1.2.840.114 350.1.13.10 4.2.7.2.686 [id number] [facility] 2021-04-09 09:07:34 2021-04-09 09:39:27 Office Visit Racheal Sierra [facility] PRIMARY CARE PAVILLION 1.2.840.114 350.1.13.10 4.2.7.2.686 [id number] 044 [id number] [facility] 2021-04-09 09:00:00 2021-04-09 09:39:27 Outpatient R RACHEAL SIERRA [facility] [id number] [facility] 2021-04-09 00:00:00 2021-04-09 00:00:00 Case Management Racheal Sierra [facility] PRIMARY CARE PAVILLION 1.2.840.114 350.1.13.10 4.2.7.2.686 [id number] 044 [id number] [facility] 2021-04-06 00:00:00 2021-04-06 00:00:00 Case Management Racheal Sierra [facility] PRIMARY CARE PAVILLION 1.2.840.114 350.1.13.10 4.2.7.2.686 [id number] 044 [id number] [facility] 2021-03-27 00:00:00 2021-03-27 00:00:00 Refill Racheal Sierra [facility] PRIMARY CARE PAVILLION 1.2.840.114 350.1.13.10 4.2.7.2.686 [id number] 044 [id number] [facility] 2021-02-12 11:14:55 2021-02-12 11:29:55 Manager Social Visit Pcp-Lab Racheal Sierra [facility] PRIMARY CARE PAVILLION 1.2.840.114 350.1.13.10 4.2.7.2.686 [id number] [facility] 2021-02-12 10:42:19 2021-02-12 11:12:19 Office Visit Racheal Sierra [facility] PRIMARY CARE PAVILLION 1.2.840.114 350.1.13.10 4.2.7.2.686 [id number] 044 [id number] [facility] 2021-02-12 10:30:00 2021-02-12 10:30:00 Outpatient R BIANKARACHEAL [facility] [id number] [facility] 2021-02-12 00:00:00 2021-02-12 00:00:00 Case Management Racheal Sierra [facility] PRIMARY CARE PAVILLION 1.2.840.114 350.1.13.10 4.2.7.2.686 [id number] 044 [id number] [facility] 2021-01-28 00:00:00 2021-01-28 00:00:00 Case Management Racheal Sierra [facility] PRIMARY CARE PAVILLION 1.2.840.114 350.1.13.10 4.2.7.2.686 [id number] 044 [id number] [facility] 2021-01-14 16:42:17 2021-01-14 16:57:17 Manager Social Visit Vtc-Lab Unknown, Attending [facility] 1.840.114 350.1.13.10 4.2.7.2.686 [id number] [facility] 2021-01-14 16:45:00 2021-01-14 16:45:00 Outpatient R UNKNOWN, ATTENDING [facility] [id number] [facility] 2021-01-06 00:00:00 2021-01-06 00:00:00 Case Management [facility] 1.2840.114 350.1.13.10 4.2.7.2.686 [id number] [facility] 2021-01-02 00:00:00 2021-01-02 00:00:00 Nurse Triage Belkys Hooper [facility] 1.0.114 350.1.13.10 4.2.7.2.686 [id number] [facility] 2021-01-01 00:00:00 2021-01-01 00:00:00 Outpatient GCCOVIDV [facility] [id number] [facility] 2020-12-11 00:00:00 2020-12-11 00:00:00 Case Management [facility] 1.840.114 350.1.13.10 4.2.7.2.686 [id number] [facility] 2020-12-05 00:00:00 2020-12-05 00:00:00 Telephone Evelyn Hernandez do [facility] 1.20.114 350.1.13.10 4.2.7.2.686 [id number] [facility] 2020-12-04 12:46:00 2020-12-04 23:59:00 Hospital Encounter Ta Dimas [facility] 1.2.840.114 350.1.13.10 4.2.7.2.686 [id number] [facility] 2020-12-04 16:30:00 2020-12-04 16:30:00 Outpatient RACHEAL SEYMOUR [facility] [id number] [facility] 2020-12-04 10:21:43 2020-12-04 12:48:12 Office Visit Diallo Ruvalcaba [facility] 1.2.840.114 350.1.13.10 4.2.7.2.686 [id number] [facility] 2020-12-04 10:30:00 2020-12-04 10:30:00 Outpatient Leonard SIERRA [facility] [id number] [facility] 2020-12-04 10:10:13 2020-12-04 10:25:13 Manager Social Visit [facility]-Horacio Sierra [facility] 1.2.840.114 350.1.13.10 4.2.7.2.686 [id number] [facility] 2020-12-04 00:00:00 2020-12-04 00:00:00 Case Management Bianka [facility] 1.2.840.114 350.1.13.10 4.2.7.2.686 [id number] [facility] 2020-12-02 17:00:10 2020-12-02 17:15:10 Manager Social Visit [facility] Sierra [facility] 1.2.840.114 350.1.13.10 4.2.7.2.686 [id number] [facility] 2020-12-02 17:15:00 2020-12-02 17:15:00 Outpatient R BIANKA [facility] [id number] [facility] [facility] 2020-12-02 00:00:00 2020-12-02 00:00:00 Case Management Racheal Sierra [facility] PRIMARY CARE PAVILLION 1.2.840.114 350.1.13.10 4.2.7.2.686 [id number] 044 [id number] [facility] 2020-11-09 00:00:00 2020-11-09 00:00:00 Refill Racheal Sierra [facility] PRIMARY CARE PAVILLION 1.2.840.114 350.1.13.10 4.2.7.2.686 [id number] 044 [id number] [facility] 2020-11-08 00:00:00 2020-11-08 00:00:00 Case Management [facility] PRIMARY CARE PAVILLION 1.2.840.114 350.1.13.10 4.2.7.2.686 [id number] [id number] [facility] 2020-11-05 14:31:28 2020-11-05 14:46:28 Manager Social [facility] 1.2.840.114 350.1.13.10 4.2.7.2.686 [id number] [facility] 2020-11-05 14:30:00 2020-11-05 14:30:00 Outpatient R BIANKARACHEAL [facility] [id number] [facility] 2020-11-04 00:00:00 2020-11-04 00:00:00 Case Management [facility] PRIMARY CARE PAVILLION 1.2.840.114 350.1.13.10 4.2.7.2.686 [id number] 044 [id number] [facility] 2020-10-25 00:00:00 2020-10-25 00:00:00 Case Management [facility] PRIMARY CARE PAVILLION 1.2.840.114 350.1.13.10 4.2.7.2.686 [id number] 044 [id number] [facility] 2020-10-14 00:00:00 2020-10-14 00:00:00 Case Management Bianka Racheal Desiree [facility] PRIMARY CARE PAVILLION 1.2.840.114 350.1.13.10 4.2.7.2.686 [id number] 044 [id number] [facility] 2020-10-09 10:24:50 2020-10-09 23:59:00 Hospital Encounter Gabe Dawkins [facility] 1.2.840.114 350.1.13.10 4.2.7.2.686 [id number] [facility] 2020-10-09 11:32:12 2020-10-09 11:47:12 Manager Social Visit Pcp-Lab Steve Redd [facility] PRIMARY CARE PAVILLION 1.2.840.114 350.1.13.10 4.2.7.2.686 [id number] [facility] 2020-10-09 10:48:04 2020-10-09 11:18:04 Office Visit Racheal Sierra [facility] PRIMARY CARE PAVILLION 1.2.840.114 350.1.13.10 4.2.7.2.686 [id number] 044 [id number] [facility] 2020-10-09 11:00:00 2020-10-09 11:00:00 Outpatient R RACHEAL SIERRA [facility] [id number] [facility] 2020-10-09 09:26:01 2020-10-09 10:23:00 Hospital Encounter Emily Cruz [facility] 1.2.840.114 350.1.13.10 4.2.7.2.686 [id number] [facility] 2020-10-09 00:00:00 2020-10-09 00:00:00 Case Management Racheal Sierra [facility] PRIMARY CARE PAVILLION 1.2.840.114 350.1.13.10 4.2.7.2.686 [id number] 044 [id number] [facility] 2020-10-03 07:36:02 2020-10-03 23:59:00 Hospital Encounter Radiology [facility] 1.2840.114 350.1.13.10 4.2.7.2.686 [id number] [facility] 2020-10-03 00:00:00 2020-10-03 00:00:00 Outpatient R RADIOLOGY [facility] [id number] [facility] 2020-10-02 16:57:05 2020-10-02 17:12:05 Manager Social Visit Vtc-Lab [facility] AND [facility] 1.0.114 350.1.13.10 4.2.7.2.686 [id number] [facility] 2020-10-02 16:45:00 2020-10-02 16:45:00 [facility] [id number] [facility] 2020-09-30 00:00:00 2020-09-30 00:00:00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 Interpretation (test code = 00588-9) Abnormal [facility] CHE[facility] 2 [id number] 12:27:38Examination: Chest PA and lateral Ordering Physician: ?BUCK O MORRICAL Date: 05/14/2023 6:00 AM History: recent ards Comparison: 02/19/2023 Findings/[facility] Whole [id number] 11:57:24* Test Item Value Reference Range Interpretation Comme nts LACTIC ACID (test code = 4000786818) 2.00 mmol/L 0.50-2.20 QUES Lab Interpretation (test cod e = 51729-9) Normal [facility] Center[facility] ASPER [id number] 09:13:00* Test Item Value Reference Range Interpretation Comme nts AG ASPER GALACTOMANNAN (test code = ASPGAG) 0.17 Index 0.00-0.49 Performed A t: CETWE [facility] Jscyzsp[address] [id number] Gadiel Garcia MD Ph:[phone] COMMENTS: Bronchoaveolar lavage- XR CHEST 1 [id number] 07:30:00 [facility] : 1985 Sex: F FAX: Rishabh Manning MD [place]: St: ADM FAX: Kaushal Savage MD [phone] FAX: Darin Page [phone] Name:MARLENE MANCILLA [facility] : 1985 Age/S: 38/F [address] [place] [address] Bl Unit #: [id number] Loc: [place] [address] Phys: Rishabh Manning MD Acct: [id number] Dis Date: Status: ADM IN PHONE #: [phone] Exam Date: 05/13/2023719 FAX #: [phone] Reason: pneumonia EXAMS: CPT CODE: [id number] XR CHEST 1 V 82893 STUDY: Chest radiograph HISTORY: Pneumonia COMPARISON: 05/12/2023 TECHNIQUE: Frontal view of the chest. LOCATION: H19 FINDINGS: The cardiac silhouette is stable in size. There are persistent bibasilar opacities with improved aeration on the left. There is no large p leural effusion or discernible pneumothorax. IMPRESSION: Persistent bibasilar atelectasis versus pneumonia, improving on the left. at 0580 Reported and signed by: Racheal Jaffe M.D. CC: Rishabh Manning MD; Kaushal Neri MD; Darin Kaminski Technologist: RT Kristin(Leonard) Trnscrd Date/Time/By: 05/13/2023 (0198) : By: [email or web address] [facility] D/T: S: 05/13/2023 (0767) PAGE 1 Signed ReportCBC W/AUTO [id number] 10:45:00* Test Item Value Reference Range Interpretation Comme nts WHITE BLOOD CELL (test code = WBC) 10.1 x10 3/uL 4.5-11.0 N RED BLOOD CELL (test code = RBC) 3.19 x10 6/uL 3.54-5.02 L HEMOGLOBIN (test code = HGB) 9.3 g/dL 11.0-15.0 L HEMATOCRIT (test code = HCT) 29.5 % 33.0-45.0 L MEAN CELL VOLUME (test code = MCV) 92.5 fL 81.0-99.0 N MEAN CELL HGB (test code = MCH) 29.2 pg 27.0-33.0 N MEAN CELL HGB CONCETRATION (test code = MCHC) 31.5 g/dL 33.0-37.0 L RED CELL DISTRIBUTION WIDTH CV (test code = RDW) 16.4 % 11.5-14.5 H RED CELL DISTRIBUTION WIDTH SD (test code = RDW-SD) 55.3 fL 37.0-54.0 H PLATELET COUNT (test code = PLT) 543 x10 3/uL 150-400 H MEAN PLATELET VOLUME (test c ode = MPV) 9.4 fL 7.0-9.0 H NEUTROPHIL % (test code = NT%) 43.2 % 56.0-77.0 L IMMATURE GRANULOCYTE % (test code = IG%) 11.6 % 0.0-2.0 H LYMPHOCYTE % (test code = LY%) 31.6 % 14.0-32.0 N MONOCYTE % (test code = MO%) 11.7 % 4.8-9.0 H EOSINOPHIL % (test code = EO%) 1.4 % 0.3-3.7 N BASOPHIL % (test code = BA%) 0.5 % 0.0-2.0 N NUCLEATED RBC % (test code = NRBC%) 0.0 % 0-0 N NEUTROPHIL # (test code = NT#) 4.35 x10 3/uL 2.0-7.6 N IMMATURE GRANULOCYTE # (test code = IG#) 1.17 x10 3/uL 0.00-0.03 H LYMPHOCYTE # (test code = LY#) 3.19 x10 3/uL 1.0-3.8 N MONOCYTE # (test code = MO#) 1.18 x10 3/uL 0.1-0.8 H EOSINOPHIL # (test code = EO#) 0.14 x10 3/uL 0.0-0.2 N BASOPHIL # (test code = BA#) 0.05 x10 3/uL 0.0-0.2 N NUCLEATED RBC # (test code = NRBC#) 0.00 x10 3/uL 0.0-0.1 N MANUAL DIFF REQUIRED (test c ode = MDIFF) YES WBC [id number] 10:45:00* Test Item Value Reference Range Interpretation Comme nts BAND NEUTROPHIL (test code = BAND) 1.8 % 0.0-10.0 N ANISOCYTOSIS (test code = ANISO) NORMAL PLATELET ESTIMATE (test code = PLTEST) Increased THOUSAND ADEQUATE SEGMENTED NEUTROPHILS (test code = SEG) 56.8 % 37-69 N LYMPHOCYTE (test code = LYMPH) 21.6 % 23-55 L MONOCYTE (test code = MON) 8.1 % 0-10 N EOSINOPHIL (test code = EOS) 3.6 % 0.0-4.0 N BASOPHIL (test code = BASO) 0.9 % 0.0-2.0 N METAMYELOCYTE (test code = META) 0.9 % 0.0-0.0 H MYELOCYTE (test code = MYELO) 6.3 % 0.0-0.0 H HISTOPLASMA [id number] 10:22:00* Test Item Value Reference Range Interpretation Comme nts AB HISTOPLASMA MYCELIAL (test code = HISMYC) 1:2 See_Comment [Automated messa ge] The system which generated this result transmitted reference range: Neg:<1:2. The reference range was not used to interpret this result as normal/abnormal. YEAST (test code = HISTOY) 1:2 See_Comment Histoplasma Myce lial ID Ab. Negative CF titers of =>1:8 with positive ID results (M or H band)are suggestive of active infection. CF titers of =>1:32 are strongly suggestive of active infection. This test was developed and its performance characteristicsdetermined by [employer]. It has not been cleared or approvedby the Food and Drug Administration.Previously reported result: 1:2 Edited by: [facility] on 05/12/23:056320 1022: YEAST previously reported as: 1:2 [Automated message] The system which generated this result transmitted reference range: Neg:<1:2. The reference range was not used to interpret this result as normal/abnormal. COMPREHENSIVE METABOLIC [id number] 09:26:00* Test Item Value Reference Range Interpretation Comme nts SODIUM (test code = NA) 140 mEq/L 134-147 N POTASSIUM (test code = K) 3.6 mEq/L 3.4-5.0 N CHLORIDE (test code = CL) 105 mEq/L 100-108 N CARBON DIOXIDE (test code = CO2) 21 mEq/l 21-33 N ANION GAP (test code = GAP) 18 0-20 N GLUCOSE (test code = GLU) 82 mg/dL 77-141 N NOTE: NEW NORMAL RANGE BLOOD UREA NITROGEN (test code = BUN) 28 mg/dL 7-25 H NOTE: NEW NORM AL RANGE GLOMERULAR FILTRATION RATE (test code = GFR) 13.8 95-105 L The Glomerular Filtration Rate is a calculated parameterbased on serum Creatinine, patient age and sex. GFR valuesless than 60 mL/min/1.73 square meters are indicative ofChronic Kidney Disease. Values less than 15 mL/min/1.73square meters indicate Kidney failure. The calculation forGFR is based on the CKD-EPI (2020) calculation. This formulais race indifferent and is the recommended formula for GFRby the National Kidney Foundation for Adults.The GFR will not calculate if the sex is unknown or if thepatient's age is <18 years. CREATININE (test code = CREAT) 4.0 mg/dL 0.6-1.3 H TOTAL PROTEIN (test code = PROT) 6.7 g/dL 6.4-8.2 N ALBUMIN (test code = ALB) 3.40 g/dL 3.4-5.0 N CALCIUM (test code = CA) 8.9 mg/dL 8.0-10.5 N BILIRUBIN TOTAL (test code = BILT) 0.40 mg/dL 0.0-1.0 SGOT/AST (test code = AST) 28 IUnit/L 8-34 N NOTE: NEW NORMAL RANGE SGPT/ALT (test code = ALT) 19 IUnit/L 10-49 NOTE: NEW NORMAL RANGE ALKALINE PHOSPHATASE TOTAL (test code = ALKP) 124 IUnit/L 20-125 N [id number] 09:26:00* Test Item Value Reference Range Interpretation Comme nts PHOSPHOROUS (test code = PHOS) 4.8 MG/DL 2.5-4.9 N [id number] 09:26:00* Test Item Value Reference Range Interpretation Comme nts MAGNESIUM (test code = MAG) 1.96 mg/dL 1.6-2.6 N NOTE: NEW NORMAL RANGE CALCIUM [id number] 09:26:00* Test Item Value Reference Range Interpretation Comme nts CALCIUM IONIZED (test code = TRAVIS) 1.16 MMOL/L 1.09-1.30 N - XR CHEST 1 [id number] 08:16:00 [facility] 1985 Sex: F FAX: Rishabh Manning MD [place]: St: ADM FAX: Kaushal Savage MD [phone] FAX: Darin Page [phone] Name: MARLENE MANCILLA [facility] [place] : 1985 Age/S: 38/F [address] [place] [address] Unit #: [id number] Loc: [address] [address] Phys: Rishabh Manning MD Acct: [id number] Dis Date: Status: ADM IN PHONE #: [phone] Exam Date: 05/12/2023 0807 FAX #: [phone] Reason: pneumonia EXAMS: CPT CODE: [id number] XR CHEST 1 V 08623 STUDY: Chest radiograph HISTORY: Pneumonia COMPARISON: 05/11/2023 TECHNIQUE: Frontal view of the chest. LOCATION: H19 FINDINGS: The cardiac silhouette is stable in size. Bibasilar opacities are similar since the prior exam. There is no large pleural effusion or discernible pneumothorax. IMPRESSION: No significant interval change. at 0816 Reported and signed by: Racheal Jaffe M.D. CC: Rishabh Manning MD; Kaushal Neri MD; Darin Dumont MD Technologist: Opal Paz RT(R) Trnscrd Date/Time/By: 05/12/2023 (08) : By: [email or web address] Orig Print D/T: S: 05/12/2023 (0819) PAGE 1 Signed Report- XR ABDOMEN 1V (KUB)2023-05-11 08:25:00 [facility] : 1985 Sex: F FAX: Kadie Hardin MD [place]: St: ADM FAX: Kaushal Savage MD [phone] FAX: Darin Page [phone] Name: MARLENE MANCILLA [facility] : 1985 Age/S: 38/F [address] [place] [address] Unit #: [id number] Loc: [address] [place] [address] Phys: Kadie Hardin MD Acct: [id number] Dis Date: Status: ADM IN PHONE #: [phone] Exam Date: 05/11/2023 075 FAX #: [phone] Reason: ABDOMINAL PAIN AND DISCOMFORT EXAMS: CPT CODE: [id number] XR ABDOMEN 1V (KUB) 10349 EXAM: - XR ABDOMEN 1V (KUB) HISTORY: ABDOMINAL PAIN AND DISCOMFORT LOCATION CODE:T18 TECHNIQUE: Frontal supine view of the abdomen. COMPARISON: 05/05/2023. FINDINGS/ IMPRESSION: Previously shown enteric tube has been removed. Bowel gas pattern appears normal without obstruction or ileus. No abnormal calcifications. Clips overlie theright iliac bone. No acute osseous abnormalities. at 0825 Reported and signed by: Uyen Macario M.D. CC: Kadie Hardin MD; Kaushal Neri MD; Darin Dumont MD Technologist: RT Kristin(R) Trnscrd Date/Time/By: 05/11/2023 (824) : By: [email or web address] Orig Print D/T: S: 05/11/2023 (827) PAGE 1 Signed ReportCBC W/AUTO [id number] 08:22:00* Test Item Value Reference Range Interpretation Comme nts WHITE BLOOD CELL (test code = WBC) 9.7 x10 3/uL 4.5-11.0 N RED BLOOD CELL (test code = RBC) 2.98 x10 6/uL 3.54-5.02 L HEMOGLOBIN (test code = HGB) 8.7 g/dL 11.0-15.0 L HEMATOCRIT (test code = HCT) 28.2 % 33.0-45.0 L MEAN CELL VOLUME (test code = MCV) 94.6 fL 81.0-99.0 N MEAN CELL HGB (test code = MCH) 29.2 pg 27.0-33.0 N MEAN CELL HGB CONCETRATION (test code = MCHC) 30.9 g/dL 33.0-37.0 L RED CELL DISTRIBUTION WIDTH CV (test code = RDW) 16.4 % 11.5-14.5 H RED CELL DISTRIBUTION WIDTH SD (test code = RDW-SD) 55.7 fL 37.0-54.0 H PLATELET COUNT (test code = PLT) 559 x10 3/uL 150-400 H MEAN PLATELET VOLUME (test c ode = MPV) 9.9 fL 7.0-9.0 H NEUTROPHIL % (test code = NT%) 43.3 % 56.0-77.0 L IMMATURE GRANULOCYTE % (test code = IG%) 10.6 % 0.0-2.0 H LYMPHOCYTE % (test code = LY%) 33.5 % 14.0-32.0 H MONOCYTE % (test code = MO%) 10.4 % 4.8-9.0 H EOSINOPHIL % (test code = EO%) 1.2 % 0.3-3.7 N BASOPHIL % (test code = BA%) 1.0 % 0.0-2.0 N NUCLEATED RBC % (test code = NRBC%) 0.0 % 0-0 N NEUTROPHIL # (test code = NT#) 4.20 x10 3/uL 2.0-7.6 N IMMATURE GRANULOCYTE # (test code = IG#) 1.03 x10 3/uL 0.00-0.03 H LYMPHOCYTE # (test code = LY#) 3.25 x10 3/uL 1.0-3.8 N MONOCYTE # (test code = MO#) 1.01 x10 3/uL 0.1-0.8 H EOSINOPHIL # (test code = EO#) 0.12 x10 3/uL 0.0-0.2 N BASOPHIL # (test code = BA#) 0.10 x10 3/uL 0.0-0.2 N NUCLEATED RBC # (test code = NRBC#) 0.00 x10 3/uL 0.0-0.1 N MANUAL DIFF REQUIRED (test c ode = MDIFF) YES WBC [id number] 08:22:00* Test Item Value Reference Range Interpretation Comme nts BAND NEUTROPHIL (test code = BAND) 0.9 % 0.0-10.0 N ANISOCYTOSIS (test code = ANISO) 1+ PLATELET ESTIMATE (test code = PLTEST) Increased THOUSAND ADEQUATE SEGMENTED NEUTROPHILS (test code = SEG) 56.4 % 37-69 N LYMPHOCYTE (test code = LYMPH) 20.0 % 23-55 L REACTIVE LYMPH (test code = RELYMPH) 2.8 % MONOCYTE (test code = MON) 10.9 % 0-10 H EOSINOPHIL (test code = EOS) 1.8 % 0.0-4.0 N BASOPHIL (test code = BASO) 0.9 % 0.0-2.0 N METAMYELOCYTE (test code = META) 2.7 % 0.0-0.0 H MYELOCYTE (test code = MYELO) 2.7 % 0.0-0.0 H PROMYELOCYTE (test code = PROM) 0.9 % 0-0 H POLYCHROMASIA (test code = POLC) 2+ POIKILOCYTOSIS (test code = POIK) 1+ MICROCYTOSIS (test code = MICR) 1+ COMPREHENSIVE METABOLIC [id number] 08:03:00* Test Item Value Reference Range Interpretation Comme nts SODIUM (test code = NA) 138 mEq/L 134-147 N POTASSIUM (test code = K) 4.0 mEq/L 3.4-5.0 N CHLORIDE (test code = CL) 104 mEq/L 100-108 N CARBON DIOXIDE (test code = CO2) 20 mEq/l 21-33 L ANION GAP (test code = GAP) 18 0-20 N GLUCOSE (test code = GLU) 66 mg/dL 77-141 L NOTE: NEW NORMAL RANGE BLOOD UREA NITROGEN (test code = BUN) 32 mg/dL 7-25 H NOTE: NEW NORM AL RANGE GLOMERULAR FILTRATION RATE (test code = GFR) 13.4 95-105 L The Glomerular Filtration Rate is a calculated parameterbased on serum Creatinine, patient age and sex. GFR valuesless than 60 mL/min/1.73 square meters are indicative ofChronic Kidney Disease. Values less than 15 mL/min/1.73square meters indicate Kidney failure. The calculation forGFR is based on the CKD-EPI (202) calculation. This formulais race indifferent and is the recommended formula for GFRby the National Kidney Foundation for Adults.The GFR will not calculate if the sex is unknown or if thepatient's age is <18 years. CREATININE (test code = CREAT) 4.1 mg/dL 0.6-1.3 H TOTAL PROTEIN (test code = PROT) 6.6 g/dL 6.4-8.2 N ALBUMIN (test code = ALB) 3.20 g/dL 3.4-5.0 L CALCIUM (test code = CA) 9.1 mg/dL 8.0-10.5 N BILIRUBIN TOTAL (test code = BILT) 0.30 mg/dL 0.0-1.0 N SGOT/AST (test code = AST) 22 IUnit/L 8-34 N NOTE: NEW NORMAL RANGE SGPT/ALT (test code = ALT) 10 IUnit/L 10-49 N NOTE: NEW NORMAL RANGE ALKALINE PHOSPHATASE TOTAL (test code = ALKP) 117 IUnit/L 20-125 N [id number] 08:03:00* Test Item Value Reference Range Interpretation Comme nts PHOSPHOROUS (test code = PHOS) 6.1 MG/DL 2.5-4.9 H [id number] 08:03:00* Test Item Value Reference Range Interpretation Comme nts MAGNESIUM (test code = MAG) 2.22 mg/dL 1.6-2.6 N NOTE: NEW NORMAL RANGE CALCIUM [id number] 08:03:00* Test Item Value Reference Range Interpretation Comme nts CALCIUM IONIZED (test code = TRAVIS) 1.13 MMOL/L 1.09-1.30 N - XR CHEST 1 [id number] 08:00:00 [facility] 1985 Sex: F FAX: Rishabh Manning MD [place]: St: [facility] FAX: Kaushal Savage MD [phone] FAX: Darin Page [phone] Name:MARLENE MANCILLA [facility] : 1985 Age/S: 38/F [address] [place] [address] Blvd Unit #: [id number] Loc: [place] [address] Phys: Rishabh Manning MD Acct: [id number] Dis Date: Status: ADM IN PHONE #: [phone] Exam Date: 05/11/2023 0754 FAX #: [phone] Reason: pneumonia EXAMS: CPT CODE: [id number] XR CHEST 1 V 97321 STUDY: Chest radiograph HISTORY: Pneumonia COMPARISON: 05/09/2023 TECHNIQUE: Frontal view of the chest. LOCATION: H19 FINDINGS: The cardiac silhouette is stable in size. There is increasing right basilar although improved left basilar opacities. There is no large pleural effusion or discernible pneumothorax. IMPRESSION: Persistent bibasilar opacities, worsening on theright although improved on the left, suggestive of pneumonia or atelectasis. at 0800 Reported and signed by: Racheal Jaffe M.D. CC: Rishabh Manning MD; Kaushal Neri MD; Darin Dumont MD Technologist: RT Kristin(R) Trnscrd Date/Time/By: 05/11/2023 (0800) : By: [email or web address] Orig Print D/T: S: 05/11/2023 (0803) PAGE 1 Signed ReportHGB [id number] 06:42:00* Test Item Value Reference Range Interpretation Comme nts HEMOGLOBIN (test code = HGB) 8.8 g/dL 11.0-15.0 L HEMATOCRIT (test code = HCT) 27.8 % 33.0-45.0 L (1-3)-PTIR-[id number] 14:11:00* Test Item Value Reference Range Interpretation Comme nts (1-3)-VEDB-P-HOJSVA (test code = BETADGLUCAN) Negative See_Comment [Automated messa ge] The system which generated this result transmitted reference range: (). The reference range was not used to interpret this result as normal/abnormal. CBC W/AUTO [id number] 10:49:00* Test Item Value Reference Range Interpretation Comme nts WHITE BLOOD CELL (test code = WBC) 9.6 x10 3/uL 4.5-11.0 N RED BLOOD CELL (test code = RBC) 3.03 x10 6/uL 3.54-5.02 L HEMOGLOBIN (test code = HGB) 8.9 g/dL 11.0-15.0 L HEMATOCRIT (test code = HCT) 27.9 % 33.0-45.0 L MEAN CELL VOLUME (test code = MCV) 92.1 fL 81.0-99.0 N MEAN CELL HGB (test code = MCH) 29.4 pg 27.0-33.0 N MEAN CELL HGB CONCETRATION (test code = MCHC) 31.9 g/dL 33.0-37.0 L RED CELL DISTRIBUTION WIDTH CV (test code = RDW) 16.6 % 11.5-14.5 H RED CELL DISTRIBUTION WIDTH SD (test code = RDW-SD) 53.3 fL 37.0-54.0 N PLATELET COUNT (test code = PLT) 554 x10 3/uL 150-400 H MEAN PLATELET VOLUME (test c ode = MPV) 9.8 fL 7.0-9.0 H NEUTROPHIL % (test code = NT%) 46.1 % 56.0-77.0 L IMMATURE GRANULOCYTE % (test code = IG%) 9.5 % 0.0-2.0 H LYMPHOCYTE % (test code = LY%) 32.4 % 14.0-32.0 H MONOCYTE % (test code = MO%) 9.6 % 4.8-9.0 H EOSINOPHIL % (test code = EO%) 1.5 % 0.3-3.7 N BASOPHIL % (test code = BA%) 0.9 % 0.0-2.0 N NUCLEATED RBC % (test code = NRBC%) 0.0 % 0-0 N NEUTROPHIL # (test code = NT#) 4.42 x10 3/uL 2.0-7.6 N IMMATURE GRANULOCYTE # (test code = IG#) 0.91 x10 3/uL 0.00-0.03 H LYMPHOCYTE # (test code = LY#) 3.10 x10 3/uL 1.0-3.8 N MONOCYTE # (test code = MO#) 0.92 x10 3/uL 0.1-0.8 H EOSINOPHIL # (test code = EO#) 0.14 x10 3/uL 0.0-0.2 N BASOPHIL # (test code = BA#) 0.09 x10 3/uL 0.0-0.2 N NUCLEATED RBC # (test code = NRBC#) 0.00 x10 3/uL 0.0-0.1 N MANUAL DIFF REQUIRED (test c ode = MDIFF) YES WBC [id number] 10:49:00* Test Item Value Reference Range Interpretation Comme nts BAND NEUTROPHIL (test code = BAND) 1.8 % 0.0-10.0 N ANISOCYTOSIS (test code = ANISO) NORMAL PLATELET ESTIMATE (test code = PLTEST) Increased THOUSAND ADEQUATE SEGMENTED NEUTROPHILS (test code = SEG) 54.1 % 37-69 N LYMPHOCYTE (test code = LYMPH) 26.6 % 23-55 N REACTIVE LYMPH (test code = RELYMPH) 0.9 % MONOCYTE (test code = MON) 8.3 % 0-10 N EOSINOPHIL (test code = EOS) 2.8 % 0.0-4.0 N METAMYELOCYTE (test code = META) 3.7 % 0.0-0.0 H MYELOCYTE (test code = MYELO) 1.8 % 0.0-0.0 H COMPREHENSIVE METABOLIC [id number] 07:22:00* Test Item Value Reference Range Interpretation Comme nts SODIUM (test code = NA) 139 mEq/L 134-147 N POTASSIUM (test code = K) 4.0 mEq/L 3.4-5.0 N CHLORIDE (test code = CL) 106 mEq/L 100-108 N CARBON DIOXIDE (test code = CO2) 21 mEq/l 21-33 N ANION GAP (test code = GAP) 16 0-20 N GLUCOSE (test code = GLU) 72 mg/dL 77-141 L NOTE: NEW NORMAL RANGE BLOOD UREA NITROGEN (test code = BUN) 37 mg/dL 7-25 H NOTE: NEW NORM AL RANGE GLOMERULAR FILTRATION RATE (test code = GFR) 12.3 95-105 L The Glomerular Filtration Rate is a calculated parameterbased on serum Creatinine, patient age and sex. GFR valuesless than 60 mL/min/1.73 square meters are indicative ofChronic Kidney Disease. Values less than 15 mL/min/1.73square meters indicate Kidney failure. The calculation forGFR is based on the CKD-EPI (202) calculation. This formulais race indifferent and is the recommended formula for GFRby the National Kidney Foundation for Adults.The GFR will not calculate if the sex is unknown or if thepatient's age is <18 years. CREATININE (test code = CREAT) 4.4 mg/dL 0.6-1.3 H TOTAL PROTEIN (test code = PROT) 6.8 g/dL 6.4-8.2 N ALBUMIN (test code = ALB) 3.20 g/dL 3.4-5.0 L CALCIUM (test code = CA) 9.1 mg/dL 8.0-10.5 N BILIRUBIN TOTAL (test code = BILT) 0.30 mg/dL 0.0-1.0 N SGOT/AST (test code = AST) 24 IUnit/L 8-34 N NOTE: NEW NORMAL RANGE SGPT/ALT (test code = ALT) 12 IUnit/L 10-49 N NOTE: NEW NORMAL RANGE ALKALINE PHOSPHATASE TOTAL (test code = ALKP) 118 IUnit/L 20-125 N [id number] 07:22:00* Test Item Value Reference Range Interpretation Comme nts PHOSPHOROUS (test code = PHOS) 6.5 MG/DL 2.5-4.9 H [id number] 07:22:00* Test Item Value Reference Range Interpretation Comme nts MAGNESIUM (test code = MAG) 2.32 mg/dL 1.6-2.6 N NOTE: NEW NORMAL RANGE CALCIUM [id number] 07:22:00* Test Item Value Reference Range Interpretation Comme nts CALCIUM IONIZED (test code = TRAVIS) 1.13 MMOL/L 1.09-1.30 N - XR CHEST 1 [id number] 07:59:00 [facility] 1985 Sex: F FAX: Rony Costa MD [phone] [place]: St: [facility] FAX: Racheal Rangel Jr [phone] FAX: Darin Page [phone] Name: MARLENE MANCILLA [facility] : 1985 Age/S: 38/F [address] [place] [address] Unit #: [id number] Loc: [address] [address] Phys: Racheal Rangel Jr, MD Acct: [id number] Dis Date: Status: ADM IN PHONE #: [phone] Exam Date: 05/09/2023 0541 FAX #: [phone] Reason: INTUBATED/PNA EXAMS: CPT CODE: [id number] XR CHEST 1 V 05147 Location: 7 EXAM: - XR CHEST 1 V DATE: 05/09/2023 5:00 AM HISTORY: INTUBATED/PNA COMPARISON: Chest x-ray 05/08/2023 FINDINGS: Stable enlargement ofthe cardiac silhouette. No large pleural effusions. No pneumothorax. Stable airspace opacities in both lung bases, right greater than left due to atelectasis versus pneumonia. IMPRESSION: Stable since prior. at 0759 Reported andsigned by: Noah Ryan M.D. CC: Rony Costa MD; Racheal Rangel Jr, MD; Darin Dumont MD Technologist: RT Wagner(R) Trnscrd Date/Time/By: 05/09/2023 (0759) : By: MonicaMOP Orig Print D/T: S: 05/09/2023 (2627) PAGE 1 Signed ReportCBC W/AUTO [id number] 07:49:00* Test Item Value Reference Range Interpretation Comme nts WHITE BLOOD CELL (test code = WBC) 10.0 x10 3/uL 4.5-11.0 N RED BLOOD CELL (test code = RBC) 3.22 x10 6/uL 3.54-5.02 L HEMOGLOBIN (test code = HGB) 9.5 g/dL 11.0-15.0 L HEMATOCRIT (test code = HCT) 30.1 % 33.0-45.0 L MEAN CELL VOLUME (test code = MCV) 93.5 fL 81.0-99.0 N MEAN CELL HGB (test code = MCH) 29.5 pg 27.0-33.0 N MEAN CELL HGB CONCETRATION (test code = MCHC) 31.6 g/dL 33.0-37.0 L RED CELL DISTRIBUTION WIDTH CV (test code = RDW) 17.2 % 11.5-14.5 H RED CELL DISTRIBUTION WIDTH SD (test code = RDW-SD) 56.8 fL 37.0-54.0 H PLATELET COUNT (test code = PLT) 527 x10 3/uL 150-400 H MEAN PLATELET VOLUME (test c ode = MPV) 9.9 fL 7.0-9.0 H NEUTROPHIL % (test code = NT%) 50.1 % 56.0-77.0 L LYMPHOCYTE % (test code = LY%) 28.6 % 14.0-32.0 N NEUTROPHIL # (test code = NT#) 4.98 x10 3/uL 2.0-7.6 N LYMPHOCYTE # (test code = LY#) 2.85 x10 3/uL 1.0-3.8 N IMMATURE GRANULOCYTE % (test code = IG%) 10.7 % 0.0-2.0 H MONOCYTE % (test code = MO%) 7.6 % 4.8-9.0 N EOSINOPHIL % (test code = EO%) 2.0 % 0.3-3.7 N BASOPHIL % (test code = BA%) 1.0 % 0.0-2.0 N NUCLEATED RBC % (test code = NRBC%) 0.0 % 0-0 N IMMATURE GRANULOCYTE # (test code = IG#) 1.06 x10 3/uL 0.00-0.03 H MONOCYTE # (test code = MO#) 0.76 x10 3/uL 0.1-0.8 N EOSINOPHIL # (test code = EO#) 0.20 x10 3/uL 0.0-0.2 N BASOPHIL # (test code = BA#) 0.10 x10 3/uL 0.0-0.2 N NUCLEATED RBC # (test code = NRBC#) 0.00 x10 3/uL 0.0-0.1 N MANUAL DIFF REQUIRED (test c ode = MDIFF) YES WBC [id number] 07:49:00* Test Item Value Reference Range Interpretation Comme nts BAND NEUTROPHIL (test code = BAND) 0.9 % 0.0-10.0 N ANISOCYTOSIS (test code = ANISO) 2+ PLATELET ESTIMATE (test code = PLTEST) Increased THOUSAND ADEQUATE SEGMENTED NEUTROPHILS (test code = SEG) 66.4 % 37-69 N LYMPHOCYTE (test code = LYMPH) 21.8 % 23-55 L REACTIVE LYMPH (test code = RELYMPH) 0.9 % MONOCYTE (test code = MON) 3.7 % 0-10 N EOSINOPHIL (test code = EOS) 0.9 % 0.0-4.0 N BASOPHIL (test code = BASO) 0.9 % 0.0-2.0 N METAMYELOCYTE (test code = META) 1.8 % 0.0-0.0 H MYELOCYTE (test code = MYELO) 2.7 % 0.0-0.0 H POLYCHROMASIA (test code = POLC) 1+ POIKILOCYTOSIS (test code = POIK) 1+ PLATELET MORPHOLOGY (test code = PLTMORPH) NORMAL COMPREHENSIVE METABOLIC [id number] 07:35:00* Test Item Value Reference Range Interpretation Comme nts SODIUM (test code = NA) 140 mEq/L 134-147 N POTASSIUM (test code = K) 4.1 mEq/L 3.4-5.0 N CHLORIDE (test code = CL) 106 mEq/L 100-108 N CARBON DIOXIDE (test code = CO2) 20 mEq/l 21-33 L ANION GAP (test code = GAP) 18 0-20 N GLUCOSE (test code = GLU) 75 mg/dL 77-141 L NOTE: NEW NORMAL RANGE BLOOD UREA NITROGEN (test code = BUN) 38 mg/dL 7-25 H NOTE: NEW NORM AL RANGE GLOMERULAR FILTRATION RATE (test code = GFR) 12.0 95-105 L The Glomerular Filtration Rate is a calculated parameterbased on serum Creatinine, patient age and sex. GFR valuesless than 60 mL/min/1.73 square meters are indicative ofChronic Kidney Disease. Values less than 15 mL/min/1.73square meters indicate Kidney failure. The calculation forGFR is based on the CKD-EPI (202) calculation. This formulais race indifferent and is the recommended formula for GFRby the National Kidney Foundation for Adults.The GFR will not calculate if the sex is unknown or if thepatient's age is <18 years. CREATININE (test code = CREAT) 4.5 mg/dL 0.6-1.3 H TOTAL PROTEIN (test code = PROT) 7.0 g/dL 6.4-8.2 N ALBUMIN (test code = ALB) 3.40 g/dL 3.4-5.0 N CALCIUM (test code = CA) 9.6 mg/dL 8.0-10.5 N BILIRUBIN TOTAL (test code = BILT) 0.40 mg/dL 0.0-1.0 N SGOT/AST (test code = AST) 27 IUnit/L 8-34 N NOTE: NEW NORMAL RANGE SGPT/ALT (test code = ALT) 11 IUnit/L 10-49 N NOTE: NEW NORMAL RANGE ALKALINE PHOSPHATASE TOTAL (test code = ALKP) 118 IUnit/L 20-125 N [id number] 07:35:00* Test Item Value Reference Range Interpretation Comme nts PHOSPHOROUS (test code = PHOS) 5.9 MG/DL 2.5-4.9 H [id number] 07:35:00* Test Item Value Reference Range Interpretation Comme nts MAGNESIUM (test code = MAG) 2.36 mg/dL 1.6-2.6 N NOTE: NEW NORMAL RANGE CALCIUM [id number] 07:35:00* Test Item Value Reference Range Interpretation Comme nts CALCIUM IONIZED (test code = TRAVIS) 1.11 MMOL/L 1.09-1.30 N CBC W/AUTO [id number] 11:28:00* Test Item Value Reference Range Interpretation Comme nts WHITE BLOOD CELL (test code = WBC) 12.1 x10 3/uL 4.5-11.0 H RED BLOOD CELL (test code = RBC) 3.26 x10 6/uL 3.54-5.02 L HEMOGLOBIN (test code = HGB) 9.5 g/dL 11.0-15.0 L HEMATOCRIT (test code = HCT) 30.8 % 33.0-45.0 L MEAN CELL VOLUME (test code = MCV) 94.5 fL 81.0-99.0 N MEAN CELL HGB (test code = MCH) 29.1 pg 27.0-33.0 N MEAN CELL HGB CONCETRATION (test code = MCHC) 30.8 g/dL 33.0-37.0 L RED CELL DISTRIBUTION WIDTH CV (test code = RDW) 17.2 % 11.5-14.5 H RED CELL DISTRIBUTION WIDTH SD (test code = RDW-SD) 56.4 fL 37.0-54.0 H PLATELET COUNT (test code = PLT) 309 x10 3/uL 150-400 N MEAN PLATELET VOLUME (test c ode = MPV) 10.8 fL 7.0-9.0 H NEUTROPHIL % (test code = NT%) 52.1 % 56.0-77.0 L IMMATURE GRANULOCYTE % (test code = IG%) 8.9 % 0.0-2.0 H LYMPHOCYTE % (test code = LY%) 30.2 % 14.0-32.0 N MONOCYTE % (test code = MO%) 5.4 % 4.8-9.0 N EOSINOPHIL % (test code = EO%) 2.2 % 0.3-3.7 N BASOPHIL % (test code = BA%) 1.2 % 0.0-2.0 N NUCLEATED RBC % (test code = NRBC%) 0.0 % 0-0 N NEUTROPHIL # (test code = NT#) 6.29 x10 3/uL 2.0-7.6 N IMMATURE GRANULOCYTE # (test code = IG#) 1.07 x10 3/uL 0.00-0.03 H LYMPHOCYTE # (test code = LY#) 3.65 x10 3/uL 1.0-3.8 N MONOCYTE # (test code = MO#) 0.65 x10 3/uL 0.1-0.8 N EOSINOPHIL # (test code = EO#) 0.26 x10 3/uL 0.0-0.2 H BASOPHIL # (test code = BA#) 0.15 x10 3/uL 0.0-0.2 N NUCLEATED RBC # (test code = NRBC#) 0.00 x10 3/uL 0.0-0.1 N MANUAL DIFF REQUIRED (test c ode = MDIFF) YES WBC [id number] 11:28:00* Test Item Value Reference Range Interpretation Comme nts BAND NEUTROPHIL (test code = BAND) 3.6 % 0.0-10.0 N ANISOCYTOSIS (test code = ANISO) 1+ PLATELET ESTIMATE (test code = PLTEST) Adequate THOUSAND ADEQUATE SEGMENTED NEUTROPHILS (test code = SEG) 55.5 % 37-69 N LYMPHOCYTE (test code = LYMPH) 23.7 % 23-55 N REACTIVE LYMPH (test code = RELYMPH) 2.7 % MONOCYTE (test code = MON) 6.4 % 0-10 N EOSINOPHIL (test code = EOS) 0.9 % 0.0-4.0 N BASOPHIL (test code = BASO) 0.9 % 0.0-2.0 N METAMYELOCYTE (test code = META) 3.6 % 0.0-0.0 H MYELOCYTE (test code = MYELO) 2.7 % 0.0-0.0 H POLYCHROMASIA (test code = POLC) 1+ MICROCYTOSIS (test code = MICR) 1+ MACROCYTOSIS (test code = MACR) 1+ COMPREHENSIVE METABOLIC [id number] 07:16:00* Test Item Value Reference Range Interpretation Comme nts SODIUM (test code = NA) 137 mEq/L 134-147 N POTASSIUM (test code = K) 4.6 mEq/L 3.4-5.0 CHLORIDE (test code = CL) 105 mEq/L 100-108 N CARBON DIOXIDE (test code = CO2) 19 mEq/l 21-33 L ANION GAP (test code = GAP) 18 0-20 N GLUCOSE (test code = GLU) 71 mg/dL 77-141 L NOTE: NEW NORMAL RANGE BLOOD UREA NITROGEN (test code = BUN) 40 mg/dL 7-25 H NOTE: NEW NORM AL RANGE GLOMERULAR FILTRATION RATE (test code = GFR) 12.0 95-105 L The Glomerular Filtration Rate is a calculated parameterbased on serum Creatinine, patient age and sex. GFR valuesless than 60 mL/min/1.73 square meters are indicative ofChronic Kidney Disease. Values less than 15 mL/min/1.73square meters indicate Kidney failure. The calculation forGFR is based on the CKD-EPI (202) calculation. This formulais race indifferent and is the recommended formula for GFRby the National Kidney Foundation for Adults.The GFR will not calculate if the sex is unknown or if thepatient's age is <18 years. CREATININE (test code = CREAT) 4.5 mg/dL 0.6-1.3 H TOTAL PROTEIN (test code = PROT) 7.2 g/dL 6.4-8.2 ALBUMIN (test code = ALB) 3.50 g/dL 3.4-5.0 N CALCIUM (test code = CA) 9.7 mg/dL 8.0-10.5 N BILIRUBIN TOTAL (test code = BILT) 0.40 mg/dL 0.0-1.0 SGOT/AST (test code = AST) 24 IUnit/L 8-34 NOTE: NEW NORMAL RANGE SGPT/ALT (test code = ALT) 9 IUnit/L 10-49 L NOTE: NEW NORMAL RANGE ALKALINE PHOSPHATASE TOTAL (test code = ALKP) 119 IUnit/L 20-125 N [id number] 07:16:00* Test Item Value Reference Range Interpretation Comme nts PHOSPHOROUS (test code = PHOS) 5.9 MG/DL 2.5-4.9 H [id number] 07:16:00* Test Item Value Reference Range Interpretation Comme nts MAGNESIUM (test code = MAG) 2.32 mg/dL 1.6-2.6 N NOTE: NEW NORMAL RANGE CALCIUM [id number] 07:16:00* Test Item Value Reference Range Interpretation Comme nts CALCIUM IONIZED (test code = TRAVIS) 1.11 MMOL/L 1.09-1.30 N - XR CHEST 1 [id number] 06:20:00 [facility] 1985 Sex: F FAX: Royn Costa MD [phone] [place]: St: [facility] FAX: Racheal Rangel Jr [phone] FAX: Darin Page [phone] Name: MARLENE MANCILLA [facility] [place] : 1985 Age/S: 38/F [address] [place] [address] Unit#: [id number] Loc: G.M[address] [place] [address] Phys: Racheal Rangel Jr, MD Acct: [id number] Dis Date: Status: ADM IN PHONE #: [phone] Exam Date: 05/08/2023 0503 FAX #: [phone] Reason: INTUBATED/PNA EXAMS: CPT CODE: [id number] XR CHEST 1 V 22817 CHEST 1 VIEW: INDICATION: INTUBATED/PNA COMP ARISON: Comparison is made with prior study of 05/07/2023 Location: H54 A single portable AP view of the chest demonstrates heart size at the upper limits of normal. The endotracheal tube is not seen on the images. Patchy left basilar opacities are present. Mild pulmonary vascular congestion noted. No apparent pleural effusion nor pneumothorax. The visualized bony structures are unremarkable. IMPRESSION: 1. Patchy left basilar consolidation and mild vascular congestion present. at 0620 Reported and signed by: Domingo Fenton M.D. CC: Rony Costa MD; Racheal Rangel Jr, MD; Darin Dumont MD Technologist: PERRI Dave) Trnscrd Date/Time/By: 05/08/2023 (619) : By: [email or web address] Orig Print D/T: S: 05/08/2023 (2941)PAGE 1 Signed ReportHGB [id number] 18:30:00* Test Item Value Reference Range Interpretation Comme nts HEMOGLOBIN (test code = HGB) 8.4 g/dL 11.0-15.0 L HEMATOCRIT (test code = HCT) 25.8 % 33.0-45.0 L HGB [id number] 11:38:00* Test Item Value Reference Range Interpretation Comme nts HEMOGLOBIN (test code = HGB) 8.7 g/dL 11.0-15.0 L HEMATOCRIT (test code = HCT) 26.4 % 33.0-45.0 L - XR CHEST 1 [id number] 06:53:00 [facility] : 1985 Sex: F FAX: Kadie Hardin MD [place]: St: [facility] FAX: Racheal Rangel Jr [phone] FAX: Darin Page [phone] Name: MARLENE MANCILLA [facility] [place] : 1985 Age/S: 38/F [address] [place] [address] Unit #: [id number] Loc: [place] [address] Phys: Racheal Rangel Jr, MD Acct: [id number] Dis Date: Status: ADM IN PHONE #: [phone] Exam Date: 05/07/2023513 FAX #: [phone] Reason: INTUBATED/PNA EXAMS: CPT CODE: [id number] XR CHEST 1 V 53371 H 20 TIME OF STUDY: 05/07/2023 5:00 AM REASON FOR EXAM: INTUBATED/PNA COMPARISON: 05/06/2023. FINDINGS: AP view of the chest was obtained. Support devices:ET tube is in place with the tip 1.4 cm above the andrews. Stable enteric tube. Lungs: Low lung volumes with patchy bilateral airspace opacities are present. Pleura: No pneumothorax. Small left pleural effusion. Heart and Mediastinum: Stable cardiomegaly. Bones: Unchanged regional skeletal structures. IMPRESSION: 1. Interval retraction of the ET tube, otherwise unchanged chest radiograph. at 0653 Reported and signed by: Delta Otero M.D. CC: Kadie Hardin MD; Racheal Rangel Jr, MD; Darin Dumont MD Technologist: RT Wagner(R) Trnscrd Date/Time/By: 05/07/2023 (0653) : By: [email or web address] Orig Print D/T: S: 05/07/2023 (0656) PAGE 1 Signed Report[facility] ART[facility] BLOOD [facility]AS 2023-05-07 03:27:00* Test Item Value Reference Range Interpretation Comme nts POC ARTERIAL BLOOD GAS PH (t est code = POCPHA) 7.506 7.35-7.45 HH POC ARTERIAL BLOOD GAS PCO2 (test code = EXMYFH7L) 31.3 mmHg 35.0-45 L POC TCO2 ARTERIAL (test code = POCTCO2) 25.6 POC ARTERIAL BLOOD GAS PO2 ( test code = XRXJS0W) 61.9 mmHg 80-100.0 L POC HCO3 ARTERIAL (test code = ZAALHS5L) 24.7 MMOL/L 22.0-26.0 N POC BASE EXCESS (test code = POCBEA) 1.7 MMOL/L -4.0-4.0 N POC O2 SATURATION (test code = POCO2S) 93.4 % 90-100 N FIO2 (test code = FIO2A) 40 % PaO2/FiO2 (test code = DWZ6NXV7) 154.75 mm/Hg ABG DELIVERY (test code = BETTY) Adult Vent ABG VENT MODE (test code = MODEA) CPAP/PS ABG PEEP (test code = PEEPA) 5 cmH2O ABG PRESSURE SUPPORT (test c ode = PSABG) 5 cmH2O ABG TEMPERATURE (test code = TEMPA) 99.2 F COMPREHENSIVE METABOLIC [id number] 02:52:00* Test Item Value Reference Range Interpretation Comme nts SODIUM (test code = NA) 137 mEq/L 134-147 N POTASSIUM (test code = K) 3.2 mEq/L 3.4-5.0 L CHLORIDE (test code = CL) 100 mEq/L 100-108 N CARBON DIOXIDE (test code = CO2) 25 mEq/l 21-33 ANION GAP (test code = GAP) 15 0-20 N GLUCOSE (test code = GLU) 93 mg/dL 77-141 N NOTE: NEW NORMAL RANGE BLOOD UREA NITROGEN (test code = BUN) 61 mg/dL 7-25 H NOTE: NEW NORM AL RANGE GLOMERULAR FILTRATION RATE (test code = GFR) 12.3 95-105 L The Glomerular Filtration Rate is a calculated parameterbased on serum Creatinine, patient age and sex. GFR valuesless than 60 mL/min/1.73 square meters are indicative ofChronic Kidney Disease. Values less than 15 mL/min/1.73square meters indicate Kidney failure. The calculation forGFR is based on the CKD-EPI (202) calculation. This formulais race indifferent and is the recommended formula for GFRby the National Kidney Foundation for Adults.The GFR will not calculate if the sex is unknown or if thepatient's age is <18 years. CREATININE (test code = CREAT) 4.4 mg/dL 0.6-1.3 H TOTAL PROTEIN (test code = PROT) 6.2 g/dL 6.4-8.2 L ALBUMIN (test code = ALB) 3.00 g/dL 3.4-5.0 L CALCIUM (test code = CA) 9.1 mg/dL 8.0-10.5 N BILIRUBIN TOTAL (test code = BILT) 0.30 mg/dL 0.0-1.0 SGOT/AST (test code = AST) 15 IUnit/L 8-34 N NOTE: NEW NORMAL RANGE SGPT/ALT (test code = ALT) < 7 IUnit/L 10-49 L NOTE: NEW NORMAL RANGE ALKALINE PHOSPHATASE TOTAL (test code = ALKP) 102 IUnit/L 20-125 N [id number] 02:52:00* Test Item Value Reference Range Interpretation Comme nts PHOSPHOROUS (test code = PHOS) 5.9 MG/DL 2.5-4.9 H [id number] 02:52:00* Test Item Value Reference Range Interpretation Comme nts MAGNESIUM (test code = MAG) 2.09 mg/dL 1.6-2.6 N NOTE: NEW NORMAL RANGE CALCIUM [id number] 02:52:00* Test Item Value Reference Range Interpretation Comme nts CALCIUM IONIZED (test code = TRAVIS) 1.14 MMOL/L 1.09-1.30 N CBC W/AUTO [id number] 02:39:00* Test Item Value Reference Range Interpretation Comme nts WHITE BLOOD CELL (test code = WBC) 14.1 x10 3/uL 4.5-11.0 H RED BLOOD CELL (test code = RBC) 2.39 x10 6/uL 3.54-5.02 L HEMOGLOBIN (test code = HGB) 7.1 g/dL 11.0-15.0 L HEMATOCRIT (test code = HCT) 22.4 % 33.0-45.0 L MEAN CELL VOLUME (test code = MCV) 93.7 fL 81.0-99.0 N MEAN CELL HGB (test code = MCH) 29.7 pg 27.0-33.0 N MEAN CELL HGB CONCETRATION (test code = MCHC) 31.7 g/dL 33.0-37.0 L RED CELL DISTRIBUTION WIDTH CV (test code = RDW) 15.9 % 11.5-14.5 H RED CELL DISTRIBUTION WIDTH SD (test code = RDW-SD) 53.7 fL 37.0-54.0 N PLATELET COUNT (test code = PLT) 324 x10 3/uL 150-400 N MEAN PLATELET VOLUME (test code = MPV) 10.2 fL 7.0-9.0 H NEUTROPHIL % (test code = NT%) 64.6 % 56.0-77.0 N IMMATURE GRANULOCYTE % (test code = IG%) 5.3 % 0.0-2.0 H LYMPHOCYTE % (test code = LY%) 23.5 % 14.0-32.0 N MONOCYTE % (test code = MO%) 4.8 % 4.8-9.0 N EOSINOPHIL % (test code = EO%) 1.4 % 0.3-3.7 N BASOPHIL % (test code = BA%) 0.4 % 0.0-2.0 N NUCLEATED RBC % (test code = NRBC%) 0.1 % 0-0 H NEUTROPHIL # (test code = NT#) 9.11 x10 3/uL 2.0-7.6 H IMMATURE GRANULOCYTE # (test code = IG#) 0.74 x10 3/uL 0.00-0.03 H LYMPHOCYTE # (test code = LY#) 3.31 x10 3/uL 1.0-3.8 N MONOCYTE # (test code = MO#) 0.68 x10 3/uL 0.1-0.8 N EOSINOPHIL # (test code = EO#) 0.20 x10 3/uL 0.0-0.2 N BASOPHIL # (test code = BA#) 0.05 x10 3/uL 0.0-0.2 N NUCLEATED RBC # (test code = NRBC#) 0.02 x10 3/uL 0.0-0.1 N MANUAL DIFF REQUIRED (test code = MDIFF) NO SLIDE REVIEW ED, CONSISTENT WITH AUTO DIFF. PROTHROMBIN [id number] 22:07:00* Test Item Value Reference Range Interpretation Comme nts PROTHROMBIN TIME PATIENT (test code = PTP) 12.9 SECONDS 9.3-12.9 N INTERNATIONAL NORMAL RATIO (test code = INR) 1.2 0.8-1.2 N TARGET INR BY INDICATION Indication INR1. Prophylaxis of venous thrombosis 2.0 - 3.0 (orthopedic surgery), Prophylaxis of venous thrombosis (other than high-risk surgery), Treatment of Deep Vein Thrombosis/Pulmonary Embolism, Prevention of systemic embolism - Tissue heart valves, Acute Myocardial Infarction (to prevent systemic embolism), Valvular heart disease, Atrial Fibrillation, Bileaflet mechanical valve in aortic position.2. Mechanical prosthetic valves (high risk), 2.5 - 3.5 Presence of Lupus Anticoagulant or Antiphospholipid Antibodies, Prevention of systemic embolism - Acute Myocardial Infarction (to prevent recurrent infarct). THROMBOPLASTIN TIME [id number] 22:07:00* Test Item Value Reference Range Interpretation Comme nts THROMBOPLASTIN TIME PARTIAL (test code = PTT) 26.5 Seconds 25.0-39.5 N Therapeutic Rang e: 50.4 - 88.3 Seconds Effective 08/15/2018 [id number] 22:07:00* Test Item Value Reference Range Interpretation Comme nts FIBRINOGEN (test code = FIB) 587 MG/DL 160-450 H Excess administr ation of anticoagulants and/or FibrinDegradation Products may affect Fibrinogen value. HGB [id number] 21:52:00* Test Item Value Reference Range Interpretation Comme nts HEMOGLOBIN (test code = HGB) 6.8 g/dL 11.0-15.0 L HEMATOCRIT (test code = HCT) 21.7 % 33.0-45.0 L - DUP VEIN [id number] 15:49:00 [facility] 1985 Sex: F Name: MARLENE MANCILLA [facility] [place] : 1985 Age/S: 38 / F [address] [place] [address] Unit #: [id number] Loc: [place] [address] Phys: Rachel Rodriguez NP Acct: [id number] Dis Date: Status: ADM IN PHONE #: [phone] Exam Date: 05/06/2023 1340 FAX #: [phone] Reason: swelling EXAMS: CPTCODE: [id number] DUP VEIN GURMEET 72260 CLINICAL HISTORY:swelling PROCEDURE: 1. Venous Doppler of lowerextremities. TECHNIQUE: Real-time li scale imaging, with compression, and Doppler venous ultrasound examination of the bilateral lower extremities was performed. COMPARISON: No prior studies are available for comparison. FINDINGS: The visualized common femoral vein, superficial femoral vein, profunda femoral vein, popliteal vein, and visualized distal branches of the bilateral lower legs are unremarkable in sonographic appearance and demonstrate normal Doppler venous blood flow, augmentation, compression, and respiratory variability without sonographic evidence of deep vein thrombosis. Cast on lower left leg, unable to visualize left calf veins. IMPRESSION: No sonographic evidence of deep vein thrombosis within the bilateral lower extremities. at 1549 Reported and signed by: Nestor Wilde M.D. CC: Kadie Hardin MD; Darin Dumont MD; Rachel Rodriguez NP Technologist: Chuyita Arellano RDMS([place])(BR) Trnscb Date/Time: 05/06/2023 (1549) t.SDR.GG11 Orig Print D/T: S: 05/06/2023 (1057) Probe: PAGE 1 Signed Report- NM LUNG PERF [id number] 12:08:00 [facility] : 1985 Sex: F FAX: Justin David MD [place]: St: ADM FAX: Darin Page [phone] Name: MARLENE MANCILLA [facility] : 1985 Age/S: 38/F [address] [place] [address] Unit #: [id number] Loc: G.09 [place] [address] Phys: Justin David MD Acct: [id number] Dis Date: Status: ADM IN PHONE #: [phone] Exam Date: 05/06/20231203 FAX #: [phone] Reason: check for PE. Hypoxic resp failure EXAMS: CPT CODE: [id number] LUNG PERF PARTICULATE 45151 Nuclear medicine lung perfusion scan: INDICATION: check for PE. Hypoxic resp failure RADIOPHARMACEUTICAL: 5.0mCi Tc-99m MAA IV Comparison: Chest films of 05/06/2023 LOCATION: C3 FINDINGS: The study is reviewed in conjunction with the recent chest films. Perfusion images demonstrate homogenous distribution throughout both lungs without segmental or sub-segmental defects. IMPRESSION: 1. Low Probability lung perfusion for Pulmonary Embolus. at 1208 Reported and signed by: Domingo Fenton M.D. CC: Justin David MD; Darin Dumont MD Technologist: ROSALIE Sidhu (N)(CT) Trnscrd Date/Time/By: 05/06/2023 (1208) : By: [email or web address] Orig Print D/T: S: 05/06/2023 (0458) PAGE 1 Signed Report[facility] 2023-[facility]-06 08:06:00* Test Item Value Reference Range Interpretation Comme nts HEMOGLOBIN (test code = HGB) 8.0 g/dL 11.0-15.0 L HEMATOCRIT (test code = HCT) 25.5 % 33.0-45.0 L - XR CHEST 1 [id number] 08:04:00 [facility] : 1985 Sex: F FAX: Rishabh Manning MD [place]: St: [facility] FAX: Darin Page [phone] Name: AMRLENE MANCILLA [facility] :1985 Age/S: 38/F [address] [place] [address] Unit #: [id number] Loc: G.09 [place] [address] Phys: Rishabh Manning MD Acct: [id number] Dis Date: Status: ADM IN PHONE #: [phone] Exam Date: 05/06/2023719 FAX #: [phone] Reason: pneumonia EXAMS: CPT CODE: [id number] XR CHEST 1 V 66345 EXAM: - XR CHEST 1 V COMPARISON: Prior day. LOCATION: H47 HISTORY: pneumonia FINDINGS: Single view ofthe chest. Nasogastric tube is in appropriate position. Endotracheal tube tip is at the andrews, citlalli mmend retraction by 2 cm. No pneumothorax. Unchanged retrocardiac opacification. The mediastinal contours are unchanged. IMPRESSION: Recommend retraction of endotracheal tube tip by 2 cm as it is atthe andrews. Unchanged retrocardiac opacities. at 0804 Reported and signed by: James Garcia M.D. CC: Rishabh Manning MD; Darin Dumont MD Technologist: RT Fritz(R) Trnscrd Date/Time/By: 05/06/2023 (803) : By: Laith.[email or web address] Orig Print D/T: S: 05/06/2023 (0807) PAGE 1 Signed ReportCBC W/AUTO [id number] 05:44:00* Test Item Value Reference Range Interpretation Comme nts WHITE BLOOD CELL (test code = WBC) 14.7 x10 3/uL 4.5-11.0 H RED BLOOD CELL (test code = RBC) 2.59 x10 6/uL 3.54-5.02 L HEMOGLOBIN (test code = HGB) 7.6 g/dL 11.0-15.0 L HEMATOCRIT (test code = HCT) 24.2 % 33.0-45.0 L MEAN CELL VOLUME (test code = MCV) 93.4 fL 81.0-99.0 N MEAN CELL HGB (test code = MCH) 29.3 pg 27.0-33.0 N MEAN CELL HGB CONCETRATION (test code = MCHC) 31.4 g/dL 33.0-37.0 L RED CELL DISTRIBUTION WIDTH CV (test code = RDW) 16.6 % 11.5-14.5 H RED CELL DISTRIBUTION WIDTH SD (test code = RDW-SD) 55.8 fL 37.0-54.0 H PLATELET COUNT (test code = PLT) 256 x10 3/uL 150-400 N MEAN PLATELET VOLUME (test code = MPV) 10.9 fL 7.0-9.0 H NEUTROPHIL % (test code = NT%) 62.4 % 56.0-77.0 N IMMATURE GRANULOCYTE % (test code = IG%) 4.0 % 0.0-2.0 H LYMPHOCYTE % (test code = LY%) 25.5 % 14.0-32.0 N MONOCYTE % (test code = MO%) 6.1 % 4.8-9.0 N EOSINOPHIL % (test code = EO%) 1.5 % 0.3-3.7 N BASOPHIL % (test code = BA%) 0.5 % 0.0-2.0 N NUCLEATED RBC % (test code = NRBC%) 0.0 % 0-0 N NEUTROPHIL # (test code = NT#) 9.19 x10 3/uL 2.0-7.6 H IMMATURE GRANULOCYTE # (test code = IG#) 0.59 x10 3/uL 0.00-0.03 H LYMPHOCYTE # (test code = LY#) 3.75 x10 3/uL 1.0-3.8 N MONOCYTE # (test code = MO#) 0.90 x10 3/uL 0.1-0.8 H EOSINOPHIL # (test code = EO#) 0.22 x10 3/uL 0.0-0.2 H BASOPHIL # (test code = BA#) 0.08 x10 3/uL 0.0-0.2 N NUCLEATED RBC # (test code = NRBC#) 0.00 x10 3/uL 0.0-0.1 N MANUAL DIFF REQUIRED (test code = MDIFF) NO SLIDE REVIEW ED, CONSISTENT WITH AUTO DIFF. COMPREHENSIVE METABOLIC [id number] 05:10:00* Test Item Value Reference Range Interpretation Comme nts SODIUM (test code = NA) 135 mEq/L 134-147 N POTASSIUM (test code = K) 4.9 mEq/L 3.4-5.0 SPECIMEN SLIGHT HEMOLYZED.Results known to be adversely affected by hemolysis are: Potassium Magnesium LDH Phosphorus CHLORIDE (test code = CL) 103 mEq/L 100-108 N CARBON DIOXIDE (test code = CO2) 18 mEq/l 21-33 L ANION GAP (test code = GAP) 19 0-20 N GLUCOSE (test code = GLU) 79 mg/dL 77-141 NOTE: NEW NORMAL RANGE BLOOD UREA NITROGEN (test code = BUN) 43 mg/dL 7-25 H NOTE: NEW NORM AL RANGE GLOMERULAR FILTRATION RATE (test code = GFR) 14.7 95-105 L The Glomerular Filtration Rate is a calculated parameterbased on serum Creatinine, patient age and sex. GFR valuesless than 60 mL/min/1.73 square meters are indicative ofChronic Kidney Disease. Values less than 15 mL/min/1.73square meters indicate Kidney failure. The calculation forGFR is based on the CKD-EPI (202) calculation. This formulais race indifferent and is the recommended formula for GFRby the National Kidney Foundation for Adults.The GFR will not calculate if the sex is unknown or if thepatient's age is <18 years. CREATININE (test code = CREAT) 3.8 mg/dL 0.6-1.3 H TOTAL PROTEIN (test code = PROT) 5.9 g/dL 6.4-8.2 L ALBUMIN (test code = ALB) 2.80 g/dL 3.4-5.0 L CALCIUM (test code = CA) 8.3 mg/dL 8.0-10.5 N BILIRUBIN TOTAL (test code = BILT) 0.20 mg/dL 0.0-1.0 SGOT/AST (test code = AST) 25 IUnit/L 8-34 N NOTE: NEW NORMAL RANGE SGPT/ALT (test code = ALT) 7 IUnit/L 10-49 L NOTE: NEW NORMAL RANGE ALKALINE PHOSPHATASE TOTAL (test code = ALKP) 98 IUnit/L 20-125 N [id number] 05:10:00* Test Item Value Reference Range Interpretation Comme nts PHOSPHOROUS (test code = PHOS) 6.3 MG/DL 2.5-4.9 H [id number] 05:10:00* Test Item Value Reference Range Interpretation Comme nts MAGNESIUM (test code = MAG) 2.05 mg/dL 1.6-2.6 N NOTE: NEW NORMAL RANGE CALCIUM [id number] 05:10:00* Test Item Value Reference Range Interpretation Comme nts CALCIUM IONIZED (test code = TRAVIS) 0.96 MMOL/L 1.09-1.30 L POC ARTERIAL BLOOD [id number] 03:58:00* Test Item Value Reference Range Interpretation Comme nts POC ARTERIAL BLOOD GAS PH (t est code = POCPHA) 7.439 7.35-7.45 N POC ARTERIAL BLOOD GAS PCO2 (test code = GJVIBJ9S) 35.9 mmHg 35.0-45 N POC TCO2 ARTERIAL (test code = POCTCO2) 25.4 POC ARTERIAL BLOOD GAS PO2 ( test code = ZIPWB7U) 182.5 mmHg 80-100.0 H POC HCO3 ARTERIAL (test code = WXDIHF3Z) 24.3 MMOL/L 22.0-26.0 N POC BASE EXCESS (test code = POCBEA) 0.1 MMOL/L -4.0-4.0 N POC O2 SATURATION (test code = POCO2S) 99.7 % 90-100 N FIO2 (test code = FIO2A) 80.0 % PaO2/FiO2 (test code = WCI0JBN9) 228.10 mm/Hg ABG DELIVERY (test code = BETTY) Adult Vent ABG VENT MODE (test code = MODEA) AC ABG VENT RESP RATE (test cod e = RRA) 20 /MIN ABG TIDAL VOLUME (test code = TVA) 350 ml ABG PEEP (test code = PEEPA) 14 cmH2O ABG SITE (test code = SITEA) R Radial DINA'S TEST (test code = ALLENS) Positive - XR ABDOMEN 1V (KUB)2023-05-05 20:53:00 [facility] 1985 Sex: F FAX: Justin David MD [place]: St: ADM FAX: Darin Page [phone] Name: BELENMARLENE Garcia [facility] : 1985 Age/S: 38/F [address] [place] [address] Unit #: [id number] Loc: G.M309 [place] [address] Phys: Justin David MD Acct: [id number] Dis Date: Status: ADM IN PHONE #: [phone] Exam Date: 05/05/2023 190 FAX #: [phone] Reason: NGT Placement EXAMS: CPT CODE: [id number] XR ABDOMEN 1V (KUB) 28905 EXAM: Abdominal x-ray, 1 view Dictation location: H10 INDICATION: NG tube placement COMPARISON: Abdominal x-ray on 05/02/2023 DISCUSSION: A frontal view of the abdomen is submitted. The upper ente karan tube tip overlies the appropriate position over the gastric antrum. There is partial bibasilar consolidation, left greater than right. The bowel gas pattern is nonobstructive. No gross evidence of acute abdominal free air is seen. No acute bony abnormalities are identified. IMPRESSION: 1. The upper enteric tube tip overlies the appropriate position over the gastric antrum. 2. Partial bibasilar consolidation, either due to atelectasis, pneumonia, or a combination of these. ElectronicallySigned by Adrian Copeland on 05/05/2023 at 2052 Reported and signed by: Shilo Copeland M.D. CC: Justin David MD; Darin Dumont MD Technologist: RT Allie(R) Trnscrd Date/Time/By: 05/05/2023 (2052) : By: [email or web address] Orig Print D/T: S: 05/05/2023 (2055) PAGE 1 Signed ReportPOC ARTERIAL BLOOD [id number] 20:27:00* Test Item Value Reference Range Interpretation Comme nts POC ARTERIAL BLOOD GAS PH (t est code = POCPHA) 7.410 7.35-7.45 N POC ARTERIAL BLOOD GAS PCO2 (test code = CQIWLE3Y) 37.5 mmHg 35.0-45 N POC TCO2 ARTERIAL (test code = POCTCO2) 24.9 POC ARTERIAL BLOOD GAS PO2 ( test code = KLCGB2I) 138.2 mmHg 80-100.0 H POC HCO3 ARTERIAL (test code = BZIALS9G) 23.8 MMOL/L 22.0-26.0 N POC BASE EXCESS (test code = POCBEA) -0.9 MMOL/L -4.0-4.0 N POC O2 SATURATION (test code = POCO2S) 99.2 % 90-100 N FIO2 (test code = FIO2A) 90.0 % PaO2/FiO2 (test code = RUL6QIC8) 153.50 mm/Hg ABG DELIVERY (test code = BETTY) Adult Vent ABG VENT MODE (test code = MODEA) AC ABG VENT RESP RATE (test cod e = RRA) 20 /MIN ABG TIDAL VOLUME (test code = TVA) 350 ml ABG PEEP (test code = PEEPA) 15 cmH2O ABG SITE (test code = SITEA) L Radial DINA'S TEST (test code = ALLENS) Positive - XR CHEST 1 [id number] 19:09:00 [facility] : 1985 Sex: F FAX: Justin David MD [place]: GC St: [facility] FAX: Darin Page [phone] Name: MARLENE MANCILLA [facility] : 1985 Age/S: 38/F [address] [place] [address] Unit #: [id number] Loc: G.M309 [place] [address] Phys: Justin David MD Acct: [id number] Dis Date: Status: ADM IN PHONE #: [phone] Exam Date: 05/05/20231901 FAX #: [phone] Reason: INTUBATION EXAMS: CPT CODE: [id number] XR CHEST 1 V 43943 LOCATION: Q15 HISTORY: 38-year-old female, status post intubation. COMMENT: A frontal chest radiograph was obtained at the bedside at 6:29 p.m., and compared to study obtained earlier today at 7:40 a.m. F INDINGS: Since prior study the patient has been intubated. ET tube is above the andrews at the levelaortic arch, and a nasogastric tube is seen projecting outside the bgwwg-as-qnso in the left upper abdominal quadrant. Again seen is thickening in the right minor fissure with consolidation left lungbase, unchanged. Mild cardiac enlargement is unchanged. Skeleton and soft tissues are unchanged. IMPRESSION: This patient status post adequate endotracheal intubation and nasogastric intubation. Please see above for details. at 190 Reported and signed by: Racheal Arroyo M.D. CC: Justin David MD; Darin Dumont MD Technologist: RT Allie(R) Trnscrd Date/Time/By: 05/05/2023 (1908) : By: [email or web address] Orig Print D/T:S: 05/05/2023 (1911) PAGE 1 Signed ReportPO ARTERIAL BLOOD GAS 2023-05-05 17:45:00* Test Item Value Reference Range Interpretation Comme nts POC ARTERIAL BLOOD GAS PH (t est code = POCPHA) 7.455 7.35-7.45 H POC ARTERIAL BLOOD GAS PCO2 (test code = GTLNBK8D) 35.0 mmHg 35.0-45 N POC TCO2 ARTERIAL (test code = POCTCO2) 25.6 POC ARTERIAL BLOOD GAS PO2 ( test code = KGVLV1O) 67.1 mmHg 80-100.0 L POC HCO3 ARTERIAL (test code = HMHSOZ8U) 24.6 MMOL/L 22.0-26.0 N POC BASE EXCESS (test code = POCBEA) 0.7 MMOL/L -4.0-4.0 N POC O2 SATURATION (test code = POCO2S) 94.1 % 90-100 N FIO2 (test code = FIO2A) 100 % PaO2/FiO2 (test code = PXK6JNG1) 67.10 mm/Hg ABG DELIVERY (test code = BETTY) BiPAP ABG VENT MODE (test code = MODEA) NIV ABG VENT RESP RATE (test cod e = RRA) 12 /MIN ABG PEEP (test code = PEEPA) 10 cmH2O ABG PRESSURE SUPPORT (test c ode = PSABG) 12 cmH2O ABG SITE (test code = SITEA) R Kelli DINA'S TEST (test code = ALLENS) N/A LACTIC DEHYDROGENASE(LDH)2023-05-05 17:45:00* Test Item Value Reference Range Interpretation Comme nts LACTIC DEHYDROGENASE(LDH) (t est code = LDH) 457 IUnits/L 84-246 H - CT CHEST W/O [id number] 12:03:00 [facility] 1985 Sex: F Name: MARLENE MANCILLA [facility] : 1985 Age/S: 38 / F [address] [place] [address] Unit #: [id number] Loc: [place] [address] Phys: Osmany Lopez MD Acct: [id number] Dis Date: Status: ADM IN PHONE #: [phone] Exam Date: 05/05/2023 1106 FAX #: [phone] Reason: acute hypoxemic respiratory failure, SOB EXAMS: CPT CODE: [id number] CT CHEST W/O CONTRAST 09171 EXAM: - CT CHEST W/O CONTRAST LOCATION: H47 HISTORY: acute hypoxemic respiratory failure, SOB COMPARISON: None available at the time of interpretation. TECHNIQUE: Axial tomograms through the chest were obtained without intravenous contrast. Coronal and sagittal reformatted images are provided. Unless otherwise specified, inc idental findings do not require dedicated imaging follow-up. This exam was performed according to our departmental dose-optimization program, which includes automated exposure control, adjustment of the mA and/or kV according to patient size and/or use of iterative reconstruction technique. FINDINGS: LUNGS/PLEURA: Atelectasis and complete consolidation of the left lower lobe. Moderate consolidation in the right lower lobe. No effusions. MEDIASTINUM: There is no pericardial effusion. The aorta tapers normally. The trachea is unremarkable. The esophagus is grossly unremarkable. LYMPHADENOPATHY: There is no mediastinal, hilar, or axillary adenopathy. VISUALIZED ABDOMEN: Unremarkable. BONES: No acute osseous findings. SOFT TISSUES: Unremarkable. IMPRESSION: Atelectasis and pneumonia of the left lower lobe. Moderate pneumonia of the right lower lobe. PAGE 1 Signed Report (CONTINUED) Name:MARLENE MANCILLA [facility] : 1985 Age/S: 38 / F [address] [place] [address] Unit #: [id number] Loc: [place] [address] Phys: Osmany Lopez MD Acct: [id number] Dis Date: Status: ADM IN PHONE #: [phone] Exam Date: 05/05/2023 1106 FAX #: [phone] Reason: acute hypoxemic respiratory failure, SOB EXAMS: CPT CODE: [id number] CT CHEST W/O CONTRAST 25468 (Continued) ElectronicallySigned by Adrian Garcia on 05/05/2023 at 1203 Reported and signed by: James Garcia M.D. CC: Osmany Lopez MD; Darin Dumont MD Technologist:Kirill Barragan, RT(R)(CT) CTDI: DLP: Trnscb Date/Time: 05/05/2023 (1203) t.SDR.HV2 Orig Print D/T: S: 05/05/2023 (3666) PAGE 2 Signed ReportCOMPREHENSIVE METABOLIC [id number] 09:15:00* Test Item Value Reference Range Interpretation Comme nts SODIUM (test code = NA) 139 mEq/L 134-147 N POTASSIUM (test code = K) 3.6 mEq/L 3.4-5.0 CHLORIDE (test code = CL) 101 mEq/L 100-108 N CARBON DIOXIDE (test code = CO2) 23 mEq/l 21-33 N ANION GAP (test code = GAP) 19 0-20 N GLUCOSE (test code = GLU) 158 mg/dL 77-141 H NOTE: NEW NORMAL RANGE BLOOD UREA NITROGEN (test code = BUN) 66 mg/dL 7-25 H NOTE: NEW NORM AL RANGE GLOMERULAR FILTRATION RATE (test code = GFR) 13.1 95-105 L The Glomerular Filtration Rate is a calculated parameterbased on serum Creatinine, patient age and sex. GFR valuesless than 60 mL/min/1.73 square meters are indicative ofChronic Kidney Disease. Values less than 15 mL/min/1.73square meters indicate Kidney failure. The calculation forGFR is based on the CKD-EPI (2020) calculation. This formulais race indifferent and is the recommended formula for GFRby the National Kidney Foundation for Adults.The GFR will not calculate if the sex is unknown or if thepatient's age is <18 years. CREATININE (test code = CREAT) 4.2 mg/dL 0.6-1.3 H TOTAL PROTEIN (test code = PROT) 6.7 g/dL 6.4-8.2 N ALBUMIN (test code = ALB) 3.10 g/dL 3.4-5.0 L CALCIUM (test code = CA) 9.2 mg/dL 8.0-10.5 N BILIRUBIN TOTAL (test code = BILT) 0.30 mg/dL 0.0-1.0 N SGOT/AST (test code = AST) 20 IUnit/L 8-34 N NOTE: NEW NORMAL RANGE SGPT/ALT (test code = ALT) 11 IUnit/L 10-49 N NOTE: NEW NORMAL RANGE ALKALINE PHOSPHATASE TOTAL (test code = ALKP) 130 IUnit/L 20-125 H [id number] 09:15:00* Test Item Value Reference Range Interpretation Comme nts PHOSPHOROUS (test code = PHOS) 5.5 MG/DL 2.5-4.9 H [id number] 09:15:00* Test Item Value Reference Range Interpretation Comme nts MAGNESIUM (test code = MAG) 1.99 mg/dL 1.6-2.6 N NOTE: NEW NORMAL RANGE CALCIUM [id number] 09:15:00* Test Item Value Reference Range Interpretation Comme nts CALCIUM IONIZED (test code = TRAVIS) 1.13 MMOL/L 1.09-1.30 N POC ARTERIAL BLOOD [id number] 08:57:00* Test Item Value Reference Range Interpretation Comme nts POC ARTERIAL BLOOD GAS PH (t est code = POCPHA) 7.434 7.35-7.45 N POC ARTERIAL BLOOD GAS PCO2 (test code = IGJWIY8Y) 34.1 mmHg 35.0-45 L POC TCO2 ARTERIAL (test code = POCTCO2) 23.9 POC ARTERIAL BLOOD GAS PO2 ( test code = BFDDP4Y) 98.8 mmHg 80-100.0 N POC HCO3 ARTERIAL (test code = NUTVFP5K) 22.9 MMOL/L 22.0-26.0 N POC BASE EXCESS (test code = POCBEA) -1.4 MMOL/L -4.0-4.0 N POC O2 SATURATION (test code = POCO2S) 97.9 % 90-100 N CBC W/AUTO [id number] 08:41:00* Test Item Value Reference Range Interpretation Comme nts WHITE BLOOD CELL (test code = WBC) 15.3 x10 3/uL 4.5-11.0 H RED BLOOD CELL (test code = RBC) 2.92 x10 6/uL 3.54-5.02 L HEMOGLOBIN (test code = HGB) 8.5 g/dL 11.0-15.0 L HEMATOCRIT (test code = HCT) 26.8 % 33.0-45.0 L MEAN CELL VOLUME (test code = MCV) 91.8 fL 81.0-99.0 MEAN CELL HGB (test code = MCH) 29.1 pg 27.0-33.0 N MEAN CELL HGB CONCETRATION (test code = MCHC) 31.7 g/dL 33.0-37.0 L RED CELL DISTRIBUTION WIDTH CV (test code = RDW) 15.7 % 11.5-14.5 H RED CELL DISTRIBUTION WIDTH SD (test code = RDW-SD) 52.1 fL 37.0-54.0 N PLATELET COUNT (test code = PLT) 223 x10 3/uL 150-400 N MEAN PLATELET VOLUME (test code = MPV) 10.4 fL 7.0-9.0 H NEUTROPHIL % (test code = NT%) 67.0 % 56.0-77.0 N IMMATURE GRANULOCYTE % (test code = IG%) 3.9 % 0.0-2.0 H LYMPHOCYTE % (test code = LY%) 21.1 % 14.0-32.0 N MONOCYTE % (test code = MO%) 6.4 % 4.8-9.0 N EOSINOPHIL % (test code = EO%) 1.2 % 0.3-3.7 N BASOPHIL % (test code = BA%) 0.4 % 0.0-2.0 N NUCLEATED RBC % (test code = NRBC%) 0.0 % 0-0 N NEUTROPHIL # (test code = NT#) 10.23 x10 3/uL 2.0-7.6 H IMMATURE GRANULOCYTE # (test code = IG#) 0.59 x10 3/uL 0.00-0.03 H LYMPHOCYTE # (test code = LY#) 3.22 x10 3/uL 1.0-3.8 N MONOCYTE # (test code = MO#) 0.98 x10 3/uL 0.1-0.8 H EOSINOPHIL # (test code = EO#) 0.19 x10 3/uL 0.0-0.2 N BASOPHIL # (test code = BA#) 0.06 x10 3/uL 0.0-0.2 N NUCLEATED RBC # (test code = NRBC#) 0.00 x10 3/uL 0.0-0.1 N - XR CHEST 1 [id number] 08:19:00 [facility] 1985 Sex: F FAX: Darin Page [phone] [place]: St: ADM Name: MARLENE MANCILLA [facility] : 1985 Age/S: 38/F [address] [place] [address] Unit #: [id number] Loc: G.M309 [place] [address] Phys: Darin Dumont MD Acct: [id number] Dis Date: Status: ADM IN PHONE #: [phone] Exam Date: 05/05/2023 07 FAX #: [phone] Reason: RESPIRATORY DISTRESS EXAMS: CPT CODE: [id number] XR CHEST 1 V 85900 Chest INDICATION: Respiratory distress. COMPARISON: Chest x-ray from yesterday. FINDINGS: Single frontal radiograph chest. There is unchanged bibasilar airspace disease. Cardiac silhouette is enlarged and unchanged. No acute osseous abnormalities. IMPRESSION: 1. Unchanged bibasilar airspace disease with enlarged cardiac silhouette. at 0819 Reported and signed by: Nestor Wilde M.D. CC: Darin Dumont MD Technologist: RT Rosana(R) Trnscrd Date/Time/By: 05/05/2023 (818) : By: [email or web address] Orig Print D/T: S: 05/05/2023 (2422) PAGE 1 Signed Report- XR CHEST 1 [id number] 07:50:00 [facility] 1985 Sex: F FAX: Rishabh Manning MD [place]: St: [facility] FAX: Darin Page [phone] Name: MARLENE MANCILLA [facility] [place] : 1985 Age/S: 38/F [address] [place] [address] Unit #: [id number] Loc: G.M309 [place] [address] Phys: Rishabh Manning MD Acct: [id number] Dis Date: Status: ADM IN PHONE #: [phone] Exam Date: 05/05/2023 0505 FAX #: [phone] Reason: pneumonia EXAMS: CPT CODE: [id number] XR CHEST 1 V 44001 EXAM: - XR CHEST 1 V COMPARISON: Prior day. LOCATION: [facility] HISTORY: pneumonia FINDINGS: Single view of the chest. No indwelling lines/tubes. No pneumothorax. Unchanged right basilar airspace opacities, re trocardiac opacification, small left effusion. The mediastinal contours are unchanged. IMPRESSION: Unchanged exam. at 0750 Reported and signed by: James Garcia M.D. CC: Rishabh Manning MD; Darin Dumont MD Technologist: Xiao Henderson, RT(R) Trnscrd Date/Time/By: 05/05/2023 (0750) : By: [email or web address] Orig Print D/T: S: 05/05/2023 (0753) PAGE 1 Signed ReportCMV DNA [id number] 20:07:00* Test Item Value Reference Range Interpretation Comme nts CMV DNA PCR (test code = CMVDNA) 2530 IU/mL Negative The quantitative range of this assay is 200 to 1 millionIU/mL. CMV DNA LOG10 (test code = CMVDNAL) 3.403 See_Comment INFCE Result Uni ts: log10 IU/mLPerformed At: [facility] [id number] [address] [id number] Gadiel Garcia MD Ph:[phone] [Automated message] The system which generated this result transmitted reference range: (). The reference range was not used to interpret this result as normal/abnormal. COMMENTS: serumCBC W/AUTO [id number] 09:21:00* Test Item Value Reference Range Interpretation Comme nts WHITE BLOOD CELL (test code = WBC) 11.8 x10 3/uL 4.5-11.0 H RED BLOOD CELL (test code = RBC) 3.22 x10 6/uL 3.54-5.02 L HEMOGLOBIN (test code = HGB) 9.5 g/dL 11.0-15.0 L HEMATOCRIT (test code = HCT) 28.4 % 33.0-45.0 L MEAN CELL VOLUME (test code = MCV) 88.2 fL 81.0-99.0 MEAN CELL HGB (test code = MCH) 29.5 pg 27.0-33.0 N MEAN CELL HGB CONCETRATION (test code = MCHC) 33.5 g/dL 33.0-37.0 N RED CELL DISTRIBUTION WIDTH CV (test code = RDW) 15.9 % 11.5-14.5 H RED CELL DISTRIBUTION WIDTH SD (test code = RDW-SD) 50.4 fL 37.0-54.0 N PLATELET COUNT (test code = PLT) 203 x10 3/uL 150-400 N MEAN PLATELET VOLUME (test c ode = MPV) 11.3 fL 7.0-9.0 H NEUTROPHIL % (test code = NT%) 67.9 % 56.0-77.0 N LYMPHOCYTE % (test code = LY%) 19.1 % 14.0-32.0 N NEUTROPHIL # (test code = NT#) 7.98 x10 3/uL 2.0-7.6 H LYMPHOCYTE # (test code = LY#) 2.25 x10 3/uL 1.0-3.8 N IMMATURE GRANULOCYTE % (test code = IG%) 5.1 % 0.0-2.0 H MONOCYTE % (test code = MO%) 5.5 % 4.8-9.0 N EOSINOPHIL % (test code = EO%) 2.0 % 0.3-3.7 N BASOPHIL % (test code = BA%) 0.4 % 0.0-2.0 N NUCLEATED RBC % (test code = NRBC%) 0.0 % 0-0 N IMMATURE GRANULOCYTE # (test code = IG#) 0.60 x10 3/uL 0.00-0.03 H MONOCYTE # (test code = MO#) 0.65 x10 3/uL 0.1-0.8 N EOSINOPHIL # (test code = EO#) 0.23 x10 3/uL 0.0-0.2 H BASOPHIL # (test code = BA#) 0.05 x10 3/uL 0.0-0.2 N NUCLEATED RBC # (test code = NRBC#) 0.00 x10 3/uL 0.0-0.1 N MANUAL DIFF REQUIRED (test c ode = MDIFF) YES WBC [id number] 09:21:00* Test Item Value Reference Range Interpretation Comme nts BAND NEUTROPHIL (test code = BAND) 0.0 % 0.0-10.0 N ANISOCYTOSIS (test code = ANISO) 1+ PLATELET ESTIMATE (test code = PLTEST) Adequate THOUSAND ADEQUATE SEGMENTED NEUTROPHILS (test code = SEG) 72.7 % 37-69 H LYMPHOCYTE (test code = LYMPH) 18.2 % 23-55 L REACTIVE LYMPH (test code = RELYMPH) 0.9 % MONOCYTE (test code = MON) 4.6 % 0-10 N METAMYELOCYTE (test code = META) 0.9 % 0.0-0.0 H MYELOCYTE (test code = MYELO) 1.8 % 0.0-0.0 H PROMYELOCYTE (test code = PROM) 0.9 % 0-0 H POLYCHROMASIA (test code = POLC) 1+ MICROCYTOSIS (test code = MICR) 1+ - XR CHEST 1 [id number] 07:57:00 [facility] 1985 Sex: F FAX: Rishabh Manning MD [place]: St: [facility] FAX: Darin Page [phone] Name: MARLENE MANCILLA [facility] :1985 Age/S: 38/F [address] [place] [address] Unit #: [id number] Loc: G.M309 [place] [address] Phys: Rishabh Manning MD Acct: [id number] Dis Date: Status: ADM IN PHONE #: [phone] Exam Date: 05/04/2023624 FAX #: [phone] Reason: pneumonia EXAMS: CPT CODE: [id number] XR CHEST 1 V 57911 EXAM: - XR CHEST 1 V COMPARISON: Prior day. LOCATION: 7 HISTORY: pneumonia FINDINGS: Single view ofthe chest. No indwelling lines/tubes. No pneumothorax. New linear opacity in the right lung base. Unchanged retrocardiac opacification and small left pleural effusion. The mediastinal contours are unchanged. IMPRESSION: New right basilar subsegmental atelectasis versus mild pneumonitis. at 0757 Reported and signed by: James Garcia M.D. CC: Rishabh Manning MD; Darin Dumont MD Technologist: RT Rod(R) Trnscrd Date/Time/By: 05/04/2023 (0757) : By: [email or web address] Orig Print D/T: S: 05/04/2023 (0800) PAGE 1 Signed ReportCOMPREHENSIVE METABOLIC [id number] 06:18:00* Test Item Value Reference Range Interpretation Comme nts SODIUM (test code = NA) 140 mEq/L 134-147 N POTASSIUM (test code = K) 2.7 mEq/L 3.4-5.0 LL Critical result called to Adolfo CESAR [facility] at 0618 05/04/23Nurse read back resut and tech confirmed it's correct? Y CHLORIDE (test code = CL) 99 mEq/L 100-108 L CARBON DIOXIDE (test code = CO2) 23 mEq/l 21-33 N ANION GAP (test code = GAP) 21 0-20 H GLUCOSE (test code = GLU) 125 mg/dL 77-141 NOTE: NEW NORMAL RANGE BLOOD UREA NITROGEN (test code = BUN) 64 mg/dL 7-25 H NOTE: NEW NORM AL RANGE GLOMERULAR FILTRATION RATE (test code = GFR) 13.1 95-105 L The Glomerular Filtration Rate is a calculated parameterbased on serum Creatinine, patient age and sex. GFR valuesless than 60 mL/min/1.73 square meters are indicative ofChronic Kidney Disease. Values less than 15 mL/min/1.73square meters indicate Kidney failure. The calculation forGFR is based on the CKD-EPI (2020) calculation. This formulais race indifferent and is the recommended formula for GFRby the National Kidney Foundation for Adults.The GFR will not calculate if the sex is unknown or if thepatient's age is <18 years. CREATININE (test code = CREAT) 4.2 mg/dL 0.6-1.3 H TOTAL PROTEIN (test code = PROT) 6.8 g/dL 6.4-8.2 N ALBUMIN (test code = ALB) 3.00 g/dL 3.4-5.0 L CALCIUM (test code = CA) 9.7 mg/dL 8.0-10.5 N BILIRUBIN TOTAL (test code = BILT) 0.30 mg/dL 0.0-1.0 N SGOT/AST (test code = AST) 21 IUnit/L 8-34 N NOTE: NEW NORMAL RANGE SGPT/ALT (test code = ALT) 9 IUnit/L 10-49 L NOTE: NEW NORMAL RANGE ALKALINE PHOSPHATASE TOTAL (test code = ALKP) 137 IUnit/L 20-125 H [id number] 06:18:00* Test Item Value Reference Range Interpretation Comme nts PHOSPHOROUS (test code = PHOS) 6.3 MG/DL 2.5-4.9 H [id number] 06:18:00* Test Item Value Reference Range Interpretation Comme nts MAGNESIUM (test code = MAG) 2.16 mg/dL 1.6-2.6 N NOTE: NEW NORMAL RANGE CALCIUM [id number] 06:18:00* Test Item Value Reference Range Interpretation Comme nts CALCIUM IONIZED (test code = TRAVIS) 1.15 MMOL/L 1.09-1.30 N CBC W/AUTO [id number] 13:34:00* Test Item Value Reference Range Interpretation Comme nts WHITE BLOOD CELL (test code = WBC) 13.6 x10 3/uL 4.5-11.0 H RED BLOOD CELL (test code = RBC) 2.91 x10 6/uL 3.54-5.02 L HEMOGLOBIN (test code = HGB) 8.5 g/dL 11.0-15.0 L HEMATOCRIT (test code = HCT) 26.6 % 33.0-45.0 L MEAN CELL VOLUME (test code = MCV) 91.4 fL 81.0-99.0 N MEAN CELL HGB (test code = MCH) 29.2 pg 27.0-33.0 N MEAN CELL HGB CONCETRATION (test code = MCHC) 32.0 g/dL 33.0-37.0 L RED CELL DISTRIBUTION WIDTH CV (test code = RDW) 15.9 % 11.5-14.5 H RED CELL DISTRIBUTION WIDTH SD (test code = RDW-SD) 52.9 fL 37.0-54.0 N PLATELET COUNT (test code = PLT) 176 x10 3/uL 150-400 N MEAN PLATELET VOLUME (test c ode = MPV) 10.9 fL 7.0-9.0 H NEUTROPHIL % (test code = NT%) 71.9 % 56.0-77.0 N IMMATURE GRANULOCYTE % (test code = IG%) 7.1 % 0.0-2.0 H LYMPHOCYTE % (test code = LY%) 14.4 % 14.0-32.0 N MONOCYTE % (test code = MO%) 4.7 % 4.8-9.0 L EOSINOPHIL % (test code = EO%) 1.5 % 0.3-3.7 N BASOPHIL % (test code = BA%) 0.4 % 0.0-2.0 N NUCLEATED RBC % (test code = NRBC%) 0.0 % 0-0 N NEUTROPHIL # (test code = NT#) 9.78 x10 3/uL 2.0-7.6 H IMMATURE GRANULOCYTE # (test code = IG#) 0.97 x10 3/uL 0.00-0.03 H LYMPHOCYTE # (test code = LY#) 1.96 x10 3/uL 1.0-3.8 N MONOCYTE # (test code = MO#) 0.64 x10 3/uL 0.1-0.8 N EOSINOPHIL # (test code = EO#) 0.21 x10 3/uL 0.0-0.2 H BASOPHIL # (test code = BA#) 0.05 x10 3/uL 0.0-0.2 N NUCLEATED RBC # (test code = NRBC#) 0.00 x10 3/uL 0.0-0.1 N MANUAL DIFF REQUIRED (test c ode = MDIFF) YES WBC [id number] 13:34:00* Test Item Value Reference Range Interpretation Comme nts BAND NEUTROPHIL (test code = BAND) 1.0 % 0.0-10.0 N ANISOCYTOSIS (test code = ANISO) 1+ PLATELET ESTIMATE (test code = PLTEST) Adequate THOUSAND ADEQUATE SEGMENTED NEUTROPHILS (test code = SEG) 81 % 37-69 H LYMPHOCYTE (test code = LYMPH) 14 % 23-55 L MONOCYTE (test code = MON) 1 % 0-10 N EOSINOPHIL (test code = EOS) 2 % 0.0-4.0 N METAMYELOCYTE (test code = META) 1.0 % 0.0-0.0 H POIKILOCYTOSIS (test code = POIK) SLIGHT - XR CHEST 1 [id number] 07:33:00 [facility] : 1985 Sex: F FAX: Rishabh Manning MD [place]: St: ADM FAX: Darin Page [phone] Name: WILLMARLENE MARCUS [facility] : 1985 Age/S: 38/F [address] [place] [address] Unit #: [id number] Loc: G.M309 [place] [address] Phys: Rishabh Manning MD Acct: [id number] Dis Date: Status: ADM IN PHONE #: [phone] Exam Date: 05/03/202340 FAX #: [phone] Reason: pneumonia EXAMS: CPT CODE: [id number] XR CHEST 1 V 84915 EXAM: - XR CHEST 1 V Location code:C3 HISTORY: pneumonia COMPARISON: 05/02/2023 IMPRESSION: Single AP view of the chest is provided. Support lines and tubes are unchanged. Cardiomegaly with vascular congestion is present. Patchy basilar opacities persist. There is no pneumothorax. No additional interval change. at 0733 Reported and signed by: Ronald Fry M.D. CC: Rishabh Manning MD; Darin Dumont MD Technologist: RT Fritz(R) Trnscrd Date/Time/By: 05/03/2023 (0707) : By: [email or web address] Orig Print D/T: S: 05/03/2023 (9675) PAGE 1 Signed ReportCOMPREHENSIVE METABOLIC PANEL 2023-05-03 06:08:00* Test Item Value Reference Range Interpretation Comme nts SODIUM (test code = NA) 141 mEq/L 134-147 N POTASSIUM (test code = K) 3.1 mEq/L 3.4-5.0 L CHLORIDE (test code = CL) 102 mEq/L 100-108 N CARBON DIOXIDE (test code = CO2) 23 mEq/l 21-33 N ANION GAP (test code = GAP) 19 0-20 N GLUCOSE (test code = GLU) 84 mg/dL 77-141 NOTE: NEW NORMAL RANGE BLOOD UREA NITROGEN (test code = BUN) 64 mg/dL 7-25 H NOTE: NEW NORM AL RANGE GLOMERULAR FILTRATION RATE (test code = GFR) 14.3 95-105 L The Glomerular Filtration Rate is a calculated parameterbased on serum Creatinine, patient age and sex. GFR valuesless than 60 mL/min/1.73 square meters are indicative ofChronic Kidney Disease. Values less than 15 mL/min/1.73square meters indicate Kidney failure. The calculation forGFR is based on the CKD-EPI (2020) calculation. This formulais race indifferent and is the recommended formula for GFRby the National Kidney Foundation for Adults.The GFR will not calculate if the sex is unknown or if thepatient's age is <18 years. CREATININE (test code = CREAT) 3.9 mg/dL 0.6-1.3 H TOTAL PROTEIN (test code = PROT) 6.2 g/dL 6.4-8.2 L ALBUMIN (test code = ALB) 2.60 g/dL 3.4-5.0 L CALCIUM (test code = CA) 9.6 mg/dL 8.0-10.5 N BILIRUBIN TOTAL (test code = BILT) 0.30 mg/dL 0.0-1.0 N SGOT/AST (test code = AST) 16 IUnit/L 8-34 N NOTE: NEW NORMAL RANGE SGPT/ALT (test code = ALT) 10 IUnit/L 10-49 N NOTE: NEW NORMAL RANGE ALKALINE PHOSPHATASE TOTAL (test code = ALKP) 137 IUnit/L 20-125 H [id number] 06:08:00* Test Item Value Reference Range Interpretation Comme nts PHOSPHOROUS (test code = PHOS) 5.6 MG/DL 2.5-4.9 H [id number] 06:08:00* Test Item Value Reference Range Interpretation Comme nts MAGNESIUM (test code = MAG) 2.19 mg/dL 1.6-2.6 N NOTE: NEW NORMAL RANGE CALCIUM [id number] 06:08:00* Test Item Value Reference Range Interpretation Comme nts CALCIUM IONIZED (test code = TRAVIS) 1.17 MMOL/L 1.09-1.30 N - US ABDOMEN [id number] 21:35:00 [facility] : 1985 Sex: F Name: MARLNEE MANCILLA [facility] [place] : 1985 Age/S: 38 / F [address] [place] [address] Unit #: [id number] Loc: REF[place] [address] Phys: Rachel Rodriguez NP Acct: [id number] Dis Date: Status: ADM IN PHONE #: [phone] Exam Date: 05/02/20232118 FAX #: [phone] Reason: prolonged fever EXAMS: CPT CODE: [id number] US ABDOMEN LTD 98326 LOCATION: H48 HISTORY: Female, 38 years of age with prolonged fever, history of transplanted kidney EXAM: ULTRASOUND OF THE RIGHT UPPER QUADRANT COMPARISON: CT abdomen and pelvis without contrast 8 hours ago TECHNIQUE: Real-time grayscale 2-D imaging, pulse wave Doppler with spectral analysis, and Doppler color flow imaging were performed with the variable megahertz curved array transducer transabdominally. STATEMENT: According to technologist, study is technically limited due to patient immobility. FINDINGS: PANCREAS: Head and body within normal limits. Tail obscured by bowel gas. GALLBLADDER: No stones, sludge, or wall thickening. There is no pericholecystic fluid. COMMON BILE DUCT: 2.7 mm, normal caliber. LIVER: Normal in echogenicity. No focal mass or enlargement. Portal vein is patent with appropriate hepatopedal flow. RIGHT KIDNEY: Notvisualized, probably secondary to severe atrophy. OTHER: There is no ascites. IMPRESSION: No acute findings in the right upper quadrant. at 2135 Reported and signed by: Meena Meza M.D. 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 Oralcontrast was not administered Axial non-contrast images of the chest, abdomen and pelvis were obtained and reviewed in soft tissue, bone and lung windows. Coronal and sagittal reconstructed images were also provided for review. All CT scans are performed using dose optimization techniques as appropriate to a performed exam including one or more of the following: ?Automated exposure control ?Adjustment of the mA and/or kV according to patient size ?Use of iterative reconstruction technique FINDINGS CHEST: Scattered groundglass opacities remain present throughout both lungs but have decreased in prominence compared to the CT scan from April 24, 2023. There are linear opacities in both lower lungs on today's study, however, which appear somewhat more extensive. Findings may reflect worsening atelectasis or infiltrate. The central airways are patent. Endotracheal and nasogastric tubes are present and appear appropriately positioned. There is no mediastinal, axillary or supraclavicularadenopathy. The chest wall and lower neck are normal in appearance. Regional osseous structures areintact FINDINGS ABDOMEN: Within the limits of this noncontrast CT the liver, gallbladder and biliary tree, spleen, pancreas and adrenal glands are normal. Both kidneys are markedly atrophic in appearance. Tiny cysts seen in the kidneys on the prior study are not well visualized on today's noncontrast images. Left iliac fossa renal transplant is again identified and appears normal. There is no free air, free fluid or lymphadenopathy. Vessels are PAGE 1 Signed Report (CONTINUED) Name: MARLENE MANCILLA [facility] Greg Bonilla : 1985 Age/S: 38 / F [address] [place] [address] Unit #: [id number] Loc: [place] [address] Phys: Rachel Rodriguez AUTOMATION TE[employer] Acct: [id number] Dis Date: Status: ADM IN PHONE #: Exam Date: 05/02/2023 1203 FAX #: [phone] Reason: abdominal distention, persistent fever EXAMS: CPT CODE: [id number] CT CHEST W/O CONTRAST 73001 (Continued) normal. Moderate amount of liquid fecal material is seen throughout the colon which may be related to underlying diarrheal process. There is no evidence of bowel obstruction. Mild degenerative changes are present in the spine. FINDINGS PELVIS: Urinary bladder, uterus and adnexal structures are normal. There is no free air, free fluid or lymphadenopathy. Areas of calcification and linear change in the right iliac fossa are unchanged and may be related to a prior transplant. What appears to be a rectal balloon is noted. No suspicious bowel lesions are identified. Mild diffuse soft tissue anasarca is present. Right common femoral vein central venous catheter is present. Vessels are otherwise unremarkable. Regional osseousstructures are intact IMPRESSION: Waxing and waning infiltrates in both lungs. Please see detailed descriptions above at 1226 Reported and signed by: Nicki Selby M.D. 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 Oral contrast was not ad ministered Axial non-contrast images of the chest, abdomen and pelvis were obtained and reviewed insoft tissue, bone and lung windows. Coronal and sagittal reconstructed images were also provided for review. All CT scans are performed using dose optimization techniques as appropriate to a performed exam including one or more of the following: ?Automated exposure control ?Adjustment of the mA and/or kV according to patient size ?Use of iterative reconstruction technique FINDINGS CHEST: Scattered groundglass opacities remain present throughout both lungs but have decreased in prominence compared to the CT scan from April 24, 2023. There are linear opacities in both lower lungs on today's study, however, which appear somewhat more extensive. Findings may reflect worsening atelectasis or infiltrate. The central airways are patent. Endotracheal and nasogastric tubes are present and appear appropriately positioned. There is no mediastinal, axillary or supraclavicular adenopathy. The chest wall and lower neck are normal in appearance. Regional osseous structures are intact FINDINGS ABDOMEN: Within the limits of this noncontrast CT the liver, gallbladder and biliary tree, spleen, pancreas and adrenal glands are normal. Both kidneys are markedly atrophic in appearance. Tiny cysts seen in the kidneys on the prior study are not well visualized on today's noncontrast images. Left iliac fossa renal transplant is again identified and appears normal. There is no free air, free fluid orlymphadenopathy. 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 Moderate amount of liquid fecal material is seen throughout the colon which may be related to underlying diarrheal process. There is no evidence of bowel obst ruction. Mild degenerative changes are present in the spine. FINDINGS PELVIS: Urinary bladder, uterus and adnexal structures are normal. There is no free air, free fluid or lymphadenopathy. Areas of calcification and linear change in the right iliac fossa are unchanged and may be related to a priortransplant. What appears to be a rectal balloon is noted. No suspicious bowel lesions are identified. Mild diffuse soft tissue anasarca is present. Right common femoral vein central venous catheter is present. Vessels are otherwise unremarkable. Regional osseous structures are intact IMPRESSION: Waxing and waning infiltrates in both lungs. Please see detailed descriptions above ElectronicallySigned by Adrian Selby on 05/02/2023 at 1226 Reported and signed by: Nicki Selby M.D. 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 FINDINGS: The distal end of NG tube is in satisfactory position within the stomach. Partially visualized small bowel loops demonstrate mild gaseous distention, which is within normal limits. There is also mild gaseous distention seen throughout the colon measuring up to 7 cm.No definite intra-abdominal free air. No definite bowel obstruction seen. No abnormal calcifications. No acute bony abnormality. IMPRESSION: Distal end of NG tube is in satisfactory position within the stomach. at 1142 Reported and signed by: Alexander Sexton D.O. CC: Darin Dumont MD; Rachel Rodriguez NP Technologist: RT Lupe(R) Trnscrd Date/Time/By: 05/02/2023 (1142) : By: [email or web address] Orig Print D/T: S: 05/02/2023 (6819) PAGE 1 Signed ReportCBC W/AUTO [id number] 10:20:00* Test Item Value Reference Range Interpretation Comme nts WHITE BLOOD CELL (test code = WBC) 15.4 x10 3/uL 4.5-11.0 H RED BLOOD CELL (test code = RBC) 3.04 x10 6/uL 3.54-5.02 L HEMOGLOBIN (test code = HGB) 8.8 g/dL 11.0-15.0 L HEMATOCRIT (test code = HCT) 28.0 % 33.0-45.0 L MEAN CELL VOLUME (test code = MCV) 92.1 fL 81.0-99.0 N MEAN CELL HGB (test code = MCH) 28.9 pg 27.0-33.0 N MEAN CELL HGB CONCETRATION (test code = MCHC) 31.4 g/dL 33.0-37.0 L RED CELL DISTRIBUTION WIDTH CV (test code = RDW) 15.9 % 11.5-14.5 H RED CELL DISTRIBUTION WIDTH SD (test code = RDW-SD) 52.6 fL 37.0-54.0 N PLATELET COUNT (test code = PLT) 175 x10 3/uL 150-400 N MEAN PLATELET VOLUME (test code = MPV) 11.0 fL 7.0-9.0 H NEUTROPHIL % (test code = NT%) 75.6 % 56.0-77.0 N IMMATURE GRANULOCYTE % (test code = IG%) 5.9 % 0.0-2.0 H LYMPHOCYTE % (test code = LY%) 12.8 % 14.0-32.0 L MONOCYTE % (test code = MO%) 4.2 % 4.8-9.0 L EOSINOPHIL % (test code = EO%) 1.0 % 0.3-3.7 N BASOPHIL % (test code = BA%) 0.5 % 0.0-2.0 N NUCLEATED RBC % (test code = NRBC%) 0.0 % 0-0 N NEUTROPHIL # (test code = NT#) 11.61 x10 3/uL 2.0-7.6 H IMMATURE GRANULOCYTE # (test code = IG#) 0.91 x10 3/uL 0.00-0.03 H LYMPHOCYTE # (test code = LY#) 1.96 x10 3/uL 1.0-3.8 N MONOCYTE # (test code = MO#) 0.65 x10 3/uL 0.1-0.8 N EOSINOPHIL # (test code = EO#) 0.16 x10 3/uL 0.0-0.2 N BASOPHIL # (test code = BA#) 0.07 x10 3/uL 0.0-0.2 N NUCLEATED RBC # (test code = NRBC#) 0.00 x10 3/uL 0.0-0.1 N MANUAL DIFF REQUIRED (test code = MDIFF) YES WBC [id number] 10:20:00* Test Item Value Reference Range Interpretation Comme nts BAND NEUTROPHIL (test code = BAND) 0.0 % 0.0-10.0 N ANISOCYTOSIS (test code = ANISO) NORMAL PLATELET ESTIMATE (test code = PLTEST) Adequate THOUSAND ADEQUATE SEGMENTED NEUTROPHILS (test code = SEG) 75.5 % 37-69 H LYMPHOCYTE (test code = LYMPH) 12.7 % 23-55 L MONOCYTE (test code = MON) 4.6 % 0-10 N EOSINOPHIL (test code = EOS) 1.8 % 0.0-4.0 N BASOPHIL (test code = BASO) 0.9 % 0.0-2.0 N METAMYELOCYTE (test code = META) 3.6 % 0.0-0.0 H MYELOCYTE (test code = MYELO) 0.9 % 0.0-0.0 H - XR CHEST 1 [id number] 07:28:00 [facility] 1985 Sex: F FAX: Rishabh Manning MD [place]: St: [facility] FAX: Darin Page [phone] Name: MARLENE MANCILLA [facility] :1985 Age/S: 38/F [address] [place] [address] Unit #: [id number] Loc: G.M309 [place] [address] Phys: Rishabh Manning MD Acct: [id number] Dis Date: Status: ADM IN PHONE #: [phone] Exam Date: 05/02/2023512 FAX #: [phone] Reason: pneumonia EXAMS: CPT CODE: [id number] XR CHEST 1 V 32546 H20 TIME OF STUDY: 05/02/2023 5:00 AM REASON FOR EXAM: pneumonia COMPARISON: 1 day prior. FINDINGS: AP view of the chest was obtained. Support devices: Stable Lungs: Diffuse bilateral airspace opacities are unchanged. Pleura: No large pleural effusion or pneumothorax. Heart and Mediastinum: Normal cardiomediastinal silhouette and great vessels. Bones: Unchanged regional skeletal structures. IMPRESSION: 1. Unchanged chest radiograph. at 0728 Reported and signed by: Delta Otero M.D. CC: Rishabh Manning MD; Darin Dumont MD Technologist: RT Dave (R) Trnscrd Date/Time/By: 05/02/2023 (0723) : By: [email or web address] Orig Print D/T: S: 05/02/2023 (7721) PAGE 1 Signed Report COMPREHENSIVE METABOLIC [id number] 06:54:00* Test Item Value Reference Range Interpretation Comme nts SODIUM (test code = NA) 139 mEq/L 134-147 N POTASSIUM (test code = K) 3.0 mEq/L 3.4-5.0 L CHLORIDE (test code = CL) 102 mEq/L 100-108 N CARBON DIOXIDE (test code = CO2) 21 mEq/l 21-33 N ANION GAP (test code = GAP) 19 0-20 N GLUCOSE (test code = GLU) 116 mg/dL 77-141 N NOTE: NEW NORMAL RANGE BLOOD UREA NITROGEN (test code = BUN) 60 mg/dL 7-25 H NOTE: NEW NORM AL RANGE GLOMERULAR FILTRATION RATE (test code = GFR) 15.2 95-105 L The Glomerular Filtration Rate is a calculated parameterbased on serum Creatinine, patient age and sex. GFR valuesless than 60 mL/min/1.73 square meters are indicative ofChronic Kidney Disease. Values less than 15 mL/min/1.73square meters indicate Kidney failure. The calculation forGFR is based on the CKD-EPI (2020) calculation. This formulais race indifferent and is the recommended formula for GFRby the National Kidney Foundation for Adults.The GFR will not calculate if the sex is unknown or if thepatient's age is <18 years. CREATININE (test code = CREAT) 3.7 mg/dL 0.6-1.3 H TOTAL PROTEIN (test code = PROT) 5.9 g/dL 6.4-8.2 L ALBUMIN (test code = ALB) 2.50 g/dL 3.4-5.0 L CALCIUM (test code = CA) 9.1 mg/dL 8.0-10.5 N BILIRUBIN TOTAL (test code = BILT) 0.30 mg/dL 0.0-1.0 SGOT/AST (test code = AST) 15 IUnit/L 8-34 N NOTE: NEW NORMAL RANGE SGPT/ALT (test code = ALT) 11 IUnit/L 10-49 NOTE: NEW NORMAL RANGE ALKALINE PHOSPHATASE TOTAL (test code = ALKP) 146 IUnit/L 20-125 H CALCIUM [id number] 06:54:00* Test Item Value Reference Range Interpretation Comme nts CALCIUM IONIZED (test code = TRAVIS) 1.15 MMOL/L 1.09-1.30 N POC ARTERIAL BLOOD [id number] 03:57:00* Test Item Value Reference Range Interpretation Comme nts POC ARTERIAL BLOOD GAS PH (t est code = POCPHA) 7.450 7.35-7.45 N POC ARTERIAL BLOOD GAS PCO2 (test code = PWHAIY3P) 32.8 mmHg 35.0-45 L POC TCO2 ARTERIAL (test code = POCTCO2) 23.8 POC ARTERIAL BLOOD GAS PO2 ( test code = OTVUR8N) 89.3 mmHg 80-100.0 N POC HCO3 ARTERIAL (test code = UDHMWD0S) 22.8 MMOL/L 22.0-26.0 N POC BASE EXCESS (test code = POCBEA) -1.2 MMOL/L -4.0-4.0 N POC O2 SATURATION (test code = POCO2S) 97.4 % 90-100 N FIO2 (test code = FIO2A) 40 % PaO2/FiO2 (test code = UYV4FUU4) 223.25 mm/Hg ABG DELIVERY (test code = BETTY) Adult Vent ABG VENT MODE (test code = MODEA) CPAP/PS ABG PEEP (test code = PEEPA) 5 cmH2O ABG PRESSURE SUPPORT (test c ode = PSABG) 5 cmH2O ABG TEMPERATURE (test code = TEMPA) 98.6 F ABG SITE (test code = SITEA) Art Line DINA'S TEST (test code = ALLENS) N/A BASIC METABOLIC [id number] 03:57:00* Test Item Value Reference Range Interpretation Comme nts SODIUM (test code = NA/ABG) 137 mmol/L 134-147 N POTASSIUM (test code = K/ABG) 3.0 mmol/L 3.4-5.0 L CHLORIDE (test code = CL/ABG) 107 mmol/L 100-108 N CREATININE ABG (test code = CREAABG) 3.7 mg/dL 0.6-1.0 H POC IONIZED CALCIUM (test co de = POCCA) 1.20 MMOL/L 1.12-1.32 N POC GLUCOSE (test code = POCGLU) 135 MG/DL 70-110 H HEMOGLOBIN [id number] 03:57:00* Test Item Value Reference Range Interpretation Comme nts HEMOGLOBIN ABG (test code = HGB/ABG) 8.9 G/DL 11.0-15.0 L [id number] 03:57:00* Test Item Value Reference Range Interpretation Comme nts HEMATOCRIT (test code = HCT/ABG) 26 % 33.0-45.0 L POC LACTIC [id number] 03:57:00* Test Item Value Reference Range Interpretation Comme nts POC LACTIC ACID (test code = POCLAC) 0.7 mmol/l 0.9-1.7 L [id number] 11:59:00* Test Item Value Reference Range Interpretation Comme nts AMMONIA (test code = AMM) < 10 umol/L 11-35 L LACTIC [id number] 11:55:00* Test Item Value Reference Range Interpretation Comme nts LACTIC ACID (test code = LACT) 0.8 mmol/L 0.4-1.9 N CBC W/AUTO [id number] 10:28:00* Test Item Value Reference Range Interpretation Comme nts WHITE BLOOD CELL (test code = WBC) 13.6 x10 3/uL 4.5-11.0 H RED BLOOD CELL (test code = RBC) 2.99 x10 6/uL 3.54-5.02 L HEMOGLOBIN (test code = HGB) 8.7 g/dL 11.0-15.0 L HEMATOCRIT (test code = HCT) 27.1 % 33.0-45.0 L MEAN CELL VOLUME (test code = MCV) 90.6 fL 81.0-99.0 N MEAN CELL HGB (test code = MCH) 29.1 pg 27.0-33.0 N MEAN CELL HGB CONCETRATION (test code = MCHC) 32.1 g/dL 33.0-37.0 L RED CELL DISTRIBUTION WIDTH CV (test code = RDW) 16.6 % 11.5-14.5 H RED CELL DISTRIBUTION WIDTH SD (test code = RDW-SD) 54.7 fL 37.0-54.0 H PLATELET COUNT (test code = PLT) 165 x10 3/uL 150-400 N MEAN PLATELET VOLUME (test code = MPV) 11.2 fL 7.0-9.0 H NEUTROPHIL % (test code = NT%) 76.2 % 56.0-77.0 N IMMATURE GRANULOCYTE % (test code = IG%) 5.6 % 0.0-2.0 H LYMPHOCYTE % (test code = LY%) 12.8 % 14.0-32.0 L MONOCYTE % (test code = MO%) 3.9 % 4.8-9.0 L EOSINOPHIL % (test code = EO%) 1.3 % 0.3-3.7 N BASOPHIL % (test code = BA%) 0.2 % 0.0-2.0 N NUCLEATED RBC % (test code = NRBC%) 0.0 % 0-0 N NEUTROPHIL # (test code = NT#) 10.32 x10 3/uL 2.0-7.6 H IMMATURE GRANULOCYTE # (test code = IG#) 0.76 x10 3/uL 0.00-0.03 H LYMPHOCYTE # (test code = LY#) 1.74 x10 3/uL 1.0-3.8 N MONOCYTE # (test code = MO#) 0.53 x10 3/uL 0.1-0.8 N EOSINOPHIL # (test code = EO#) 0.17 x10 3/uL 0.0-0.2 N BASOPHIL # (test code = BA#) 0.03 x10 3/uL 0.0-0.2 N NUCLEATED RBC # (test code = NRBC#) 0.00 x10 3/uL 0.0-0.1 N MANUAL DIFF REQUIRED (test code = MDIFF) YES WBC [id number] 10:28:00* Test Item Value Reference Range Interpretation Comme nts BAND NEUTROPHIL (test code = BAND) 0.0 % 0.0-10.0 N ANISOCYTOSIS (test code = ANISO) 2+ PLATELET ESTIMATE (test code = PLTEST) Adequate THOUSAND ADEQUATE SEGMENTED NEUTROPHILS (test code = SEG) 82.7 % 37-69 H LYMPHOCYTE (test code = LYMPH) 11.8 % 23-55 L MONOCYTE (test code = MON) 2.8 % 0-10 N EOSINOPHIL (test code = EOS) 0.9 % 0.0-4.0 N METAMYELOCYTE (test code = META) 1.8 % 0.0-0.0 H BASIC METABOLIC [id number] 09:26:00* Test Item Value Reference Range Interpretation Comme nts SODIUM (test code = NA) 139 mEq/L 134-147 N POTASSIUM (test code = K) 3.3 mEq/L 3.4-5.0 L CHLORIDE (test code = CL) 103 mEq/L 100-108 N CARBON DIOXIDE (test code = CO2) 19 mEq/l 21-33 L ANION GAP (test code = GAP) 20 0-20 N GLUCOSE (test code = GLU) 115 mg/dL 77-141 NOTE: NEW NORMAL RANGE BLOOD UREA NITROGEN (test code = BUN) 63 mg/dL 7-25 H NOTE: NEW NORM AL RANGE GLOMERULAR FILTRATION RATE (test code = GFR) 15.7 95-105 L The Glomerular Filtration Rate is a calculated parameterbased on serum Creatinine, patient age and sex. GFR valuesless than 60 mL/min/1.73 square meters are indicative ofChronic Kidney Disease. Values less than 15 mL/min/1.73square meters indicate Kidney failure. The calculation forGFR is based on the CKD-EPI (202) calculation. This formulais race indifferent and is the recommended formula for GFRby the National Kidney Foundation for Adults.The GFR will not calculate if the sex is unknown or if thepatient's age is <18 years. CREATININE (test code = CREAT) 3.6 mg/dL 0.6-1.3 H CALCIUM (test code = CA) 8.8 mg/dL 8.0-10.5 N [id number] 09:26:00* Test Item Value Reference Range Interpretation Comme nts PHOSPHOROUS (test code = PHOS) 4.8 MG/DL 2.5-4.9 N [id number] 09:26:00* Test Item Value Reference Range Interpretation Comme nts MAGNESIUM (test code = MAG) 2.22 mg/dL 1.6-2.6 N NOTE: NEW NORMAL RANGE - XR CHEST 1 [id number] 06:20:00 [facility] 1985 Sex: F FAX: Rishabh Manning MD [place]: St: [facility] FAX: Darin Page [phone] Name: MARLENE MANCILLA [facility] [place] :1985 Age/S: 38/F [address] [place] [address] Unit #: [id number] Loc: G.M309 [place] [address] Phys: Rishabh Manning MD Acct: [id number] Dis Date: Status: ADM IN PHONE #: [phone] Exam Date: 05/01/2023 0501 FAX #: [phone] Reason: pneumonia EXAMS: CPT CODE: [id number] XR CHEST 1 V 98042 CLINICAL HISTORY: pneumonia. LOCATION: A1 FINDINGS: Comparison is made with a previous study dated April 30, 2023. A portable AP view of the chest is dated 05/01/2023 at 5:01 AM. There is stable moderate cardiomegaly. No change in tubes or lines. There is pulmonary vascular congestion. There is moderate infiltrate at the left lower lung as well as diffuse mild infiltrates bilaterally. Infiltrates on the right appear slightly increased. No acute skeletal or soft tissue abnormalities. IMPRESSION: 1. Diffuse mild infiltrates within the right lung are slightly increased from the previous study.There is stable moderate infiltrate at the left lower lung as well as mild infiltrates at the left mid and upper lung. at 0620 Reported and signed by: Martin Monk M.D. CC: Rishabh Manning MD; Darin Dumont MD Technologist: RT Wagner(Leonard) Trnscrd Date/Time/By: 05/01/2023 (619) : By: [email or web address] Orig Print D/T: S: 05/01/2023 (1024) PAGE 1 Signed ReportPOC ARTERIAL BLOOD GAS 2023-05-01 05:01:00* Test Item Value Reference Range Interpretation Comme nts POC ARTERIAL BLOOD GAS PH (t est code = POCPHA) 7.502 7.35-7.45 HH POC ARTERIAL BLOOD GAS PCO2 (test code = RRPTSC6O) 30.3 mmHg 35.0-45 L POC TCO2 ARTERIAL (test code = POCTCO2) 24.7 POC ARTERIAL BLOOD GAS PO2 ( test code = TXUIH3V) 82.8 mmHg 80-100.0 N POC HCO3 ARTERIAL (test code = UBGVJT9G) 23.8 MMOL/L 22.0-26.0 N POC BASE EXCESS (test code = POCBEA) 0.6 MMOL/L -4.0-4.0 N POC O2 SATURATION (test code = POCO2S) 97.2 % 90-100 N FIO2 (test code = FIO2A) 40 % PaO2/FiO2 (test code = [id number]) 207.00 mm/Hg ABG DELIVERY (test code = BETTY) Adult Vent ABG VENT MODE (test code = MODEA) AC ABG VENT RESP RATE (test cod e = RRA) 25 /MIN ABG TIDAL VOLUME (test code = TVA) 350 ml ABG PEEP (test code = PEEPA) 5 cmH2O ABG TEMPERATURE (test code = TEMPA) 98.6 F ABG SITE (test code = SITEA) Art Line DINA'S TEST (test code = ALLENS) N/A BASIC METABOLIC [id number] 05:01:00* Test Item Value Reference Range Interpretation Comme nts SODIUM (test code = NA/ABG) 138 mmol/L 134-147 N POTASSIUM (test code = K/ABG) 3.5 mmol/L 3.4-5.0 N CHLORIDE (test code = CL/ABG) 109 mmol/L 100-108 H CREATININE ABG (test code = CREAABG) 3.7 mg/dL 0.6-1.0 H POC IONIZED CALCIUM (test co de = POCCA) 1.18 MMOL/L 1.12-1.32 N POC GLUCOSE (test code = POCGLU) 113 MG/DL 70-110 H HEMOGLOBIN [id number] 05:01:00* Test Item Value Reference Range Interpretation Comme nts HEMOGLOBIN ABG (test code = HGB/ABG) 8.8 G/DL 11.0-15.0 L [id number] 05:01:00* Test Item Value Reference Range Interpretation Comme nts HEMATOCRIT (test code = HCT/ABG) 26 % 33.0-45.0 L POC LACTIC [id number] 05:01:00* Test Item Value Reference Range Interpretation Comme nts POC LACTIC ACID (test code = POCLAC) 0.6 mmol/l 0.9-1.7 L POC ARTERIAL BLOOD [id number] 20:23:00* Test Item Value Reference Range Interpretation Comme nts POC ARTERIAL BLOOD GAS PH (t est code = POCPHA) 7.488 7.35-7.45 H POC ARTERIAL BLOOD GAS PCO2 (test code = ORTBWW3Q) 30.5 mmHg 35.0-45 L POC TCO2 ARTERIAL (test code = POCTCO2) 24.0 POC ARTERIAL BLOOD GAS PO2 ( test code = HLJZV5B) 121.4 mmHg 80-100.0 H POC HCO3 ARTERIAL (test code = QHIWLM9B) 23.1 MMOL/L 22.0-26.0 N POC BASE EXCESS (test code = POCBEA) -0.3 MMOL/L -4.0-4.0 N POC O2 SATURATION (test code = POCO2S) 99.1 % 90-100 N FIO2 (test code = FIO2A) 40 % PaO2/FiO2 (test code = TMQ3YNU7) 303.50 mm/Hg ABG DELIVERY (test code = BETTY) Adult Vent ABG VENT MODE (test code = MODEA) CPAP/PS ABG PEEP (test code = PEEPA) 8 cmH2O ABG PRESSURE SUPPORT (test c ode = PSABG) 10 cmH2O ABG TEMPERATURE (test code = TEMPA) 98.6 F ABG SITE (test code = SITEA) Art Line DINA'S TEST (test code = ALLENS) N/A BASIC METABOLIC [id number] 20:23:00* Test Item Value Reference Range Interpretation Comme nts SODIUM (test code = NA/ABG) 137 mmol/L 134-147 N POTASSIUM (test code = K/ABG) 2.9 mmol/L 3.4-5.0 LL CHLORIDE (test code = CL/ABG) 107 mmol/L 100-108 N CREATININE ABG (test code = CREAABG) 3.7 mg/dL 0.6-1.0 H POC IONIZED CALCIUM (test co de = POCCA) 1.12 MMOL/L 1.12-1.32 N POC GLUCOSE (test code = POCGLU) 136 MG/DL 70-110 H HEMOGLOBIN [id number] 20:23:00* Test Item Value Reference Range Interpretation Comme nts HEMOGLOBIN ABG (test code = HGB/ABG) 8.8 G/DL 11.0-15.0 L [id number] 20:23:00* Test Item Value Reference Range Interpretation Comme nts HEMATOCRIT (test code = HCT/ABG) 26 % 33.0-45.0 L POC LACTIC [id number] 20:23:00* Test Item Value Reference Range Interpretation Comme nts POC LACTIC ACID (test code = POCLAC) 0.7 mmol/l 0.9-1.7 L - XR CHEST 1 [id number] 06:13:00 [facility] 1985 Sex: F FAX: Rishabh Manning MD [place]: St: [facility] FAX: Darin Page [phone] Name: MARLENE MANCILLA [facility] :1985 Age/S: 38/F [address] [place] [address] Unit #: [id number] Loc: G.M309 [place] [address] Phys: Rishabh Manning MD Acct: [id number] Dis Date: Status: ADM IN PHONE #: [phone] Exam Date: 04/30/2023518 FAX #: [phone] Reason: pneumonia EXAMS: CPT CODE: [id number] XR CHEST 1 V 60992 CLINICAL HISTORY: pneumonia. LOCATION: A1 FINDINGS: Comparison is made with a previous study dated April 29, 2023. A portable AP view of the chest is dated 04/30/2023 at 5:20 AM. There is stable moderate cardiomegaly. No change in tubes or lines. There is pulmonary vascular congestion and mild diffuse interstitial prominence. There is improved aeration of the right lung. Diffuse mild alveolar infiltrates remain within the left lung. No pleural effusions. No acute skeletal or soft tissue abnormalities. IMPRESSION: 1. There is improved aeration of the right lung with stable diffuse mild alveolar infiltrates within the left lung. Underlying pulmonary vascular congestion and mild diffuse interstitial prominence are again noted. at 0613 Reported and signed by: Martin Monk M.D. CC: Rishabh Manning MD; Darin Dumont MDTechnologist: RT Tenzin(Leonard) Trnscrd Date/Time/By: 04/30/2023 (9868) : By: [email or web address] Orig Print D/T: S: 04/30/2023 (3829) PAGE 1 Signed Report COMPREHENSIVE METABOLIC [id number] 06:01:00* Test Item Value Reference Range Interpretation Comme nts SODIUM (test code = NA) 134 mEq/L 134-147 N POTASSIUM (test code = K) 3.0 mEq/L 3.4-5.0 L CHLORIDE (test code = CL) 100 mEq/L 100-108 N CARBON DIOXIDE (test code = CO2) 22 mEq/l 21-33 N ANION GAP (test code = GAP) 15 0-20 N GLUCOSE (test code = GLU) 173 mg/dL 77-141 H NOTE: NEW NORMAL RANGE BLOOD UREA NITROGEN (test code = BUN) 58 mg/dL 7-25 H NOTE: NEW NORM AL RANGE GLOMERULAR FILTRATION RATE (test code = GFR) 15.7 95-105 L The Glomerular Filtration Rate is a calculated parameterbased on serum Creatinine, patient age and sex. GFR valuesless than 60 mL/min/1.73 square meters are indicative ofChronic Kidney Disease. Values less than 15 mL/min/1.73square meters indicate Kidney failure. The calculation forGFR is based on the CKD-EPI (2020) calculation. This formulais race indifferent and is the recommended formula for GFRby the National Kidney Foundation for Adults.The GFR will not calculate if the sex is unknown or if thepatient's age is <18 years. CREATININE (test code = CREAT) 3.6 mg/dL 0.6-1.3 H TOTAL PROTEIN (test code = PROT) 5.7 g/dL 6.4-8.2 L ALBUMIN (test code = ALB) 2.50 g/dL 3.4-5.0 L CALCIUM (test code = CA) 8.4 mg/dL 8.0-10.5 N BILIRUBIN TOTAL (test code = BILT) 0.20 mg/dL 0.0-1.0 SGOT/AST (test code = AST) 23 IUnit/L 8-34 N NOTE: NEW NORMAL RANGE SGPT/ALT (test code = ALT) < 7 IUnit/L 10-49 L NOTE: NEW NORMAL RANGE ALKALINE PHOSPHATASE TOTAL (test code = ALKP) 129 IUnit/L 20-125 H [id number] 06:01:00* Test Item Value Reference Range Interpretation Comme nts PHOSPHOROUS (test code = PHOS) 5.4 MG/DL 2.5-4.9 H [id number] 06:01:00* Test Item Value Reference Range Interpretation Comme nts MAGNESIUM (test code = MAG) 2.35 mg/dL 1.6-2.6 N NOTE: NEW NORMAL RANGE CALCIUM [id number] 06:01:00* Test Item Value Reference Range Interpretation Comme nts CALCIUM IONIZED (test code = TRAVIS) 1.09 MMOL/L 1.09-1.30 N POC ARTERIAL BLOOD [id number] 05:32:00* Test Item Value Reference Range Interpretation Comme nts POC ARTERIAL BLOOD GAS PH (t est code = POCPHA) 7.411 7.35-7.45 N POC ARTERIAL BLOOD GAS PCO2 (test code = CGCSFK8G) 37.4 mmHg 35.0-45 N POC TCO2 ARTERIAL (test code = POCTCO2) 24.9 POC ARTERIAL BLOOD GAS PO2 ( test code = DEWCD5G) 98.7 mmHg 80-100.0 N POC HCO3 ARTERIAL (test code = JFURDE6Y) 23.7 MMOL/L 22.0-26.0 N POC BASE EXCESS (test code = POCBEA) -0.9 MMOL/L -4.0-4.0 N POC O2 SATURATION (test code = POCO2S) 97.8 % 90-100 N FIO2 (test code = FIO2A) 40.0 % PaO2/FiO2 (test code = HZM4IQH0) 246.70 mm/Hg ABG DELIVERY (test code = BETTY) Adult Vent ABG VENT MODE (test code = MODEA) AC ABG VENT RESP RATE (test cod e = RRA) 25 /MIN ABG TIDAL VOLUME (test code = TVA) 350 ml ABG PEEP (test code = PEEPA) 8 cmH2O ABG SITE (test code = SITEA) Art Line DINA'S TEST (test code = ALLENS) N/A CBC W/AUTO [id number] 05:26:00* Test Item Value Reference Range Interpretation Comme nts WHITE BLOOD CELL (test code = WBC) 12.9 x10 3/uL 4.5-11.0 H RED BLOOD CELL (test code = RBC) 2.87 x10 6/uL 3.54-5.02 L HEMOGLOBIN (test code = HGB) 8.5 g/dL 11.0-15.0 L HEMATOCRIT (test code = HCT) 25.8 % 33.0-45.0 L MEAN CELL VOLUME (test code = MCV) 89.9 fL 81.0-99.0 N MEAN CELL HGB (test code = MCH) 29.6 pg 27.0-33.0 N MEAN CELL HGB CONCETRATION (test code = MCHC) 32.9 g/dL 33.0-37.0 L RED CELL DISTRIBUTION WIDTH CV (test code = RDW) 16.5 % 11.5-14.5 H RED CELL DISTRIBUTION WIDTH SD (test code = RDW-SD) 54.3 fL 37.0-54.0 H PLATELET COUNT (test code = PLT) 162 x10 3/uL 150-400 N MEAN PLATELET VOLUME (test code = MPV) 10.9 fL 7.0-9.0 H NEUTROPHIL % (test code = NT%) 85.5 % 56.0-77.0 H IMMATURE GRANULOCYTE % (test code = IG%) 2.9 % 0.0-2.0 H LYMPHOCYTE % (test code = LY%) 7.1 % 14.0-32.0 L MONOCYTE % (test code = MO%) 3.2 % 4.8-9.0 L EOSINOPHIL % (test code = EO%) 1.1 % 0.3-3.7 N BASOPHIL % (test code = BA%) 0.2 % 0.0-2.0 N NUCLEATED RBC % (test code = NRBC%) 0.0 % 0-0 N NEUTROPHIL # (test code = NT#) 11.01 x10 3/uL 2.0-7.6 H IMMATURE GRANULOCYTE # (test code = IG#) 0.37 x10 3/uL 0.00-0.03 H LYMPHOCYTE # (test code = LY#) 0.91 x10 3/uL 1.0-3.8 L MONOCYTE # (test code = MO#) 0.41 x10 3/uL 0.1-0.8 N EOSINOPHIL # (test code = EO#) 0.14 x10 3/uL 0.0-0.2 N BASOPHIL # (test code = BA#) 0.03 x10 3/uL 0.0-0.2 N NUCLEATED RBC # (test code = NRBC#) 0.00 x10 3/uL 0.0-0.1 N Novel Coronavirus [id number] 02:03:00* Test Item Value Reference Range Interpretation Comme nts Novel Coronavirus 2019 Inhouse (test code = [id number]) Negative Negative Positive resul ts are indicative of the presence afZWVQ-[id number]-8 RNA, clinical correlation with patient historyand other diagnostic information is necessary to determinepatient infection status. Positive results do not rule outbacterial infection or co-infection with other viruses. Negative results do not preclude SARS-CoV-2 infection andshould not be used as the sole basis for patient managementdecisions. Negative results must be combined with otherclinical observations, patient history, and epidemiologicalinformation . Detection of SARS-CoV-2 RNA may be affected bysample collection methods, storage conditions, and/or stageof infection. Viral RNA mutations, vaccinations, antiviraltherapeutics, antibiotics, chemotherapeutic orimmunosuppressant drugs have not been evaluated for effectson detection. Results are for the identification of SARS-CoV-2 RNA usingreal-time (RT) polymerase chain reaction (PCR) technologyfor the qualitative detection of nucleic acids from jboSVJG-IcR-4 virus and diagnosis of SARS-CoV-2 virusinfection. It is an Emergency Use Authorization (EUA) testauthorized by the U.S. FDA. COMMENTS: SARS-CoV-2 PCRPOC ARTERIAL BLOOD [id number] 23:46:00* Test Item Value Reference Range Interpretation Comme nts POC ARTERIAL BLOOD GAS PH (t est code = POCPHA) 7.423 7.35-7.45 N POC ARTERIAL BLOOD GAS PCO2 (test code = CPONPF8F) 37.7 mmHg 35.0-45 N POC TCO2 ARTERIAL (test code = POCTCO2) 25.8 POC ARTERIAL BLOOD GAS PO2 ( test code = NNRWJ6I) 77.3 mmHg 80-100.0 L POC HCO3 ARTERIAL (test code = QRXMCS1Q) 24.7 MMOL/L 22.0-26.0 N POC BASE EXCESS (test code = POCBEA) 0.2 MMOL/L -4.0-4.0 N POC O2 SATURATION (test code = POCO2S) 95.6 % 90-100 N FIO2 (test code = FIO2A) 40.0 % PaO2/FiO2 (test code = WFE2NLW2) 193.20 mm/Hg ABG DELIVERY (test code = BETTY) Adult Vent ABG VENT MODE (test code = MODEA) AC ABG VENT RESP RATE (test cod e = RRA) 25 /MIN ABG TIDAL VOLUME (test code = TVA) 350 ml ABG PEEP (test code = PEEPA) 8 cmH2O ABG SITE (test code = SITEA) Art Line DINA'S TEST (test code = ALLENS) N/A - XR ABDOMEN 1V (KUB)2023-04-29 16:57:00 [facility] 1985 Sex: F FAX: Marlene Mann NP [phone] [place]: St: ADM FAX: Darin Page [phone] ------ Name: MARLENE MANCILLA [facility] : 1985 Age/S: 38/F [address] [place] [address] Unit #: [id number] Loc: G.M309 [place] [address] Phys: Marlene Mann NP Acct: [id number] Dis Date: Status: ADM IN PHONE #: [phone] Exam Date: 04/29/2023 1620 FAX #: [phone] Reason: abdominal distention EXAMS: CPT CODE: [id number] XR ABDOMEN 1V (KUB) [id number] EXAM: ABDOMEN ONE VIEW INDICATION: Abdominal Distention LOCATION: B2 COMPARISON: April 20, 2023 TECHNIQUE: AP view of the abdomen. FINDINGS: There is an enteric tube with the tip overlying the stomach. There is mild dilatation of the proximal small bowel loops inthe upper abdomen. No pneumoperitoneum is identified. No abnormal calcifications. The osseous structures are unremarkable. IMPRESSION: Mild dilatation of the proximal small bowel loops in the upper abdomen. This may be secondary to an ileus versus bowel obstruction. at [id number] Reported and signed by: Alicia Pendleton M.D. CC: Eyad [employer]OMATION TE[employer]; Darin Dumont MD Technologist: RT Grazyna(R) Trnnerd Date/Time/By: 04/29/2023 (187) : By: [email or web address] PAGE 1 Signed Report INFLUENZA A [id number] 14:09:00* Test Item Value Reference Range Interpretation Comme nts INFLUENZA A (test code = FLUAPCR) Negative Negative INFLUENZA B (test code = FLUBPCR) Negative Negative MYCOPLASMA PNEUMONIAE [id number] 14:09:00* Test Item Value Reference Range Interpretation Comme nts MYCOPLASMA PNEUMONIAE DNA (test code = MYCODNA) Negative Negative No Mycoplasma pn eumoniae DNA detected.This test was developed and its performance characteristicsdetermined by [email or web address]. It has not been cleared or approvedby the Food and Drug Administration. The FDA hasdetermined that such clearance or approval is notnecessary.Performed At: [address] [id number] Russell MD Ph:[phone] POC ARTERIAL BLOOD [id number] 13:16:00* Test Item Value Reference Range Interpretation Comme nts POC ARTERIAL BLOOD GAS PH (t est code = POCPHA) 7.371 7.35-7.45 N POC ARTERIAL BLOOD GAS PCO2 (test code = FTRTCX7J) 43.7 mmHg 35.0-45 N POC TCO2 ARTERIAL (test code = POCTCO2) 26.7 POC ARTERIAL BLOOD GAS PO2 ( test code = RWBIL8E) 137.7 mmHg 80-100.0 H POC HCO3 ARTERIAL (test code = QESGOO9M) 25.3 MMOL/L 22.0-26.0 N POC BASE EXCESS (test code = POCBEA) 0.1 MMOL/L -4.0-4.0 N POC O2 SATURATION (test code = POCO2S) 99.0 % 90-100 N FIO2 (test code = FIO2A) 45 % PaO2/FiO2 (test code = [id number]) 306.00 mm/Hg ABG DELIVERY (test code = BETTY) Adult Vent ABG VENT MODE (test code = MODEA) AC ABG VENT RESP RATE (test cod e = RRA) 25 /MIN ABG TIDAL VOLUME (test code = TVA) 350 ml ABG PEEP (test code = PEEPA) 10 cmH2O ABG SITE (test code = SITEA) Art Line - XR CHEST 1 [id number] 08:12:00 [facility] : 1985 Sex: F FAX: Rishabh Manning MD [place]: St: [facility] FAX: Darin Page [phone] Name: MARLENE MANCILLA [facility] :1985 Age/S: 38/F [address] [place] [address] Unit #: [id number] Loc: G.M309 [place] [address] Phys: Rishabh Manning MD Acct: [id number] Dis Date: Status: ADM IN PHONE #: [phone] Exam Date: 04/29/2023 0700 FAX #: [phone] Reason: pneumonia EXAMS: CPT CODE: [id number] XR CHEST 1 V [id number] EXAM: CHEST ONE VIEW INDICATION: PNEUMONIA LOCATION: B2 COMPARISON: April 28, 2023 TECHNIQUE: AP view of the chest FINDINGS: The endotracheal tube and enteric tube are unchanged. The heart size is normal. There are diffuse congestive changes bilaterally. No pneumothorax or pleural effusion is identified. The osseous structures are normal. IMPRESSION: Diffuse congestive changes bilaterally. at 0812 Reported and signed by: Alicia Pendleton M.D. CC: Rishabh Manning MD; Darin Dumont MD Technologist: Karrie Tyson, RT(R); Sanjeev Cowart RT(R) Trnscrd Date/Time/By: 04/29/2023 (811) : By: 16 Orig Print D/T: S: 04/29/2023 (0815) PAGE 1 Signed ReportCOMPREHENSIVE METABOLIC [id number] 05:43:00* Test Item Value Reference Range Interpretation Comme nts SODIUM (test code = NA) 137 mEq/L 134-147 N POTASSIUM (test code = K) 3.4 mEq/L 3.4-5.0 N CHLORIDE (test code = CL) 99 mEq/L 100-108 L CARBON DIOXIDE (test code = CO2) 25 mEq/l 21-33 N ANION GAP (test code = GAP) 16 0-20 N GLUCOSE (test code = GLU) 135 mg/dL 77-141 NOTE: NEW NORMAL RANGE BLOOD UREA NITROGEN (test code = BUN) 45 mg/dL 7-25 H NOTE: NEW NORM AL RANGE GLOMERULAR FILTRATION RATE (test code = GFR) 14.7 95-105 L The Glomerular Filtration Rate is a calculated parameterbased on serum Creatinine, patient age and sex. GFR valuesless than 60 mL/min/1.73 square meters are indicative ofChronic Kidney Disease. Values less than 15 mL/min/1.73square meters indicate Kidney failure. The calculation forGFR is based on the CKD-EPI (202) calculation. This formulais race indifferent and is the recommended formula for GFRby the National Kidney Foundation for Adults.The GFR will not calculate if the sex is unknown or if thepatient's age is <18 years. CREATININE (test code = CREAT) 3.8 mg/dL 0.6-1.3 H TOTAL PROTEIN (test code = PROT) 5.7 g/dL 6.4-8.2 L ALBUMIN (test code = ALB) 2.60 g/dL 3.4-5.0 L CALCIUM (test code = CA) 8.6 mg/dL 8.0-10.5 N BILIRUBIN TOTAL (test code = BILT) 0.30 mg/dL 0.0-1.0 N SGOT/AST (test code = AST) 19 IUnit/L 8-34 N NOTE: NEW NORMAL RANGE SGPT/ALT (test code = ALT) < 7 IUnit/L 10-49 L NOTE: NEW NORMAL RANGE ALKALINE PHOSPHATASE TOTAL (test code = ALKP) 86 IUnit/L 20-125 N [id number] 05:43:00* Test Item Value Reference Range Interpretation Comme nts PHOSPHOROUS (test code = PHOS) 8.4 MG/DL 2.5-4.9 H [id number] 05:43:00* Test Item Value Reference Range Interpretation Comme nts MAGNESIUM (test code = MAG) 2.64 mg/dL 1.6-2.6 H NOTE: NEW NORMAL RANGE CALCIUM [id number] 05:43:00* Test Item Value Reference Range Interpretation Comme nts CALCIUM IONIZED (test code = TRAVIS) 1.05 MMOL/L 1.09-1.30 L POC ARTERIAL BLOOD [id number] 05:36:00* Test Item Value Reference Range Interpretation Comme nts POC ARTERIAL BLOOD GAS PH (t est code = POCPHA) 7.322 7.35-7.45 L POC ARTERIAL BLOOD GAS PCO2 (test code = KAYTMS3D) 53.6 mmHg 35.0-45 HH POC TCO2 ARTERIAL (test code = POCTCO2) 29.4 POC ARTERIAL BLOOD GAS PO2 ( test code = GSJGV7V) 110.1 mmHg 80-100.0 H POC HCO3 ARTERIAL (test code = SNISNQ1Y) 27.7 MMOL/L 22.0-26.0 H POC BASE EXCESS (test code = POCBEA) 1.7 MMOL/L -4.0-4.0 N POC O2 SATURATION (test code = POCO2S) 97.8 % 90-100 N FIO2 (test code = FIO2A) 55 % PaO2/FiO2 (test code = ORA2EOE0) 200.18 mm/Hg ABG DELIVERY (test code = BETTY) Adult Vent ABG VENT MODE (test code = MODEA) AC ABG VENT RESP RATE (test cod e = RRA) 25 /MIN ABG TIDAL VOLUME (test code = TVA) 300 ml ABG PEEP (test code = PEEPA) 10 cmH2O ABG TEMPERATURE (test code = TEMPA) 98.6 F ABG SITE (test code = SITEA) Art Line DINA'S TEST (test code = ALLENS) Positive CBC W/AUTO [id number] 05:08:00* Test Item Value Reference Range Interpretation Comme nts WHITE BLOOD CELL (test code = WBC) 11.4 x10 3/uL 4.5-11.0 H RED BLOOD CELL (test code = RBC) 2.84 x10 6/uL 3.54-5.02 L HEMOGLOBIN (test code = HGB) 8.4 g/dL 11.0-15.0 L HEMATOCRIT (test code = HCT) 26.3 % 33.0-45.0 L MEAN CELL VOLUME (test code = MCV) 92.6 fL 81.0-99.0 N MEAN CELL HGB (test code = MCH) 29.6 pg 27.0-33.0 N MEAN CELL HGB CONCETRATION (test code = MCHC) 31.9 g/dL 33.0-37.0 L RED CELL DISTRIBUTION WIDTH CV (test code = RDW) 16.8 % 11.5-14.5 H RED CELL DISTRIBUTION WIDTH SD (test code = RDW-SD) 57.0 fL 37.0-54.0 H PLATELET COUNT (test code = PLT) 158 x10 3/uL 150-400 N MEAN PLATELET VOLUME (test c ode = MPV) 10.8 fL 7.0-9.0 H NEUTROPHIL % (test code = NT%) 84.9 % 56.0-77.0 H IMMATURE GRANULOCYTE % (test code = IG%) 1.7 % 0.0-2.0 N LYMPHOCYTE % (test code = LY%) 8.9 % 14.0-32.0 L MONOCYTE % (test code = MO%) 2.8 % 4.8-9.0 L EOSINOPHIL % (test code = EO%) 1.5 % 0.3-3.7 N BASOPHIL % (test code = BA%) 0.2 % 0.0-2.0 N NUCLEATED RBC % (test code = NRBC%) 0.0 % 0-0 N NEUTROPHIL # (test code = NT#) 9.68 x10 3/uL 2.0-7.6 H IMMATURE GRANULOCYTE # (test code = IG#) 0.19 x10 3/uL 0.00-0.03 H LYMPHOCYTE # (test code = LY#) 1.01 x10 3/uL 1.0-3.8 N MONOCYTE # (test code = MO#) 0.32 x10 3/uL 0.1-0.8 N EOSINOPHIL # (test code = EO#) 0.17 x10 3/uL 0.0-0.2 N BASOPHIL # (test code = BA#) 0.02 x10 3/uL 0.0-0.2 N NUCLEATED RBC # (test code = NRBC#) 0.00 x10 3/uL 0.0-0.1 N POC ARTERIAL BLOOD [id number] 01:49:00* Test Item Value Reference Range Interpretation Comme nts POC ARTERIAL BLOOD GAS PH (t est code = POCPHA) 7.307 7.35-7.45 L POC ARTERIAL BLOOD GAS PCO2 (test code = WDSMLN3P) 55.7 mmHg 35.0-45 HH POC TCO2 ARTERIAL (test code = POCTCO2) 29.5 POC ARTERIAL BLOOD GAS PO2 ( test code = WCWTM0R) 243.2 mmHg 80-100.0 HH POC HCO3 ARTERIAL (test code = MLOULT8C) 27.8 MMOL/L 22.0-26.0 H POC BASE EXCESS (test code = POCBEA) 1.5 MMOL/L -4.0-4.0 N POC O2 SATURATION (test code = POCO2S) 99.8 % 90-100 N FIO2 (test code = FIO2A) 55 % PaO2/FiO2 (test code = HYT4KKC0) 442.18 mm/Hg ABG DELIVERY (test code = BETTY) Adult Vent ABG VENT MODE (test code = MODEA) SIMV ABG VENT RESP RATE (test cod e = RRA) 25 /MIN ABG TIDAL VOLUME (test code = TVA) 300 ml ABG PEEP (test code = PEEPA) 10 cmH2O ABG SITE (test code = SITEA) Art Line DINA'S TEST (test code = ALLENS) N/A AG ASPER [id number] 01:08:00* Test Item Value Reference Range Interpretation Comme nts AG ASPER GALACTOMANNAN (test code = ASPGAG) 0.06 Index 0.00-0.49 Performed A t: [facility] [id number] Earle S MD Ph:[phone] (1-3)-PTWH-R-[id number] 01:08:00* Test Item Value Reference Range Interpretation Comme nts (1-3)-MLJN-B-AYHZEP (test code = BETADGLUCAN) Negative See_Comment [Automated messa ge] The system which generated this result transmitted reference range: (). The reference range was not used to interpret this result as normal/abnormal. HGB [id number] 23:39:00* Test Item Value Reference Range Interpretation Comme nts HEMOGLOBIN (test code = HGB) 8.8 g/dL 11.0-15.0 L HEMATOCRIT (test code = HCT) 27.9 % 33.0-45.0 L POC ARTERIAL BLOOD [id number] 17:54:00* Test Item Value Reference Range Interpretation Comme nts POC ARTERIAL BLOOD GAS PH (t est code = POCPHA) 7.333 7.35-7.45 L POC ARTERIAL BLOOD GAS PCO2 (test code = QRLKGJ2Y) 49.0 mmHg 35.0-45 H POC TCO2 ARTERIAL (test code = POCTCO2) 27.5 POC ARTERIAL BLOOD GAS PO2 ( test code = KGPVE2G) 275.1 mmHg 80-100.0 HH POC HCO3 ARTERIAL (test code = LYNOMH5N) 26.0 MMOL/L 22.0-26.0 N POC BASE EXCESS (test code = POCBEA) 0.2 MMOL/L -4.0-4.0 N POC O2 SATURATION (test code = POCO2S) 99.9 % 90-100 N FIO2 (test code = FIO2A) 55 % PaO2/FiO2 (test code = FGY8JLK3) 500.18 mm/Hg ABG DELIVERY (test code = BETTY) Adult Vent ABG VENT MODE (test code = MODEA) AC ABG VENT RESP RATE (test cod e = RRA) 25 /MIN ABG TIDAL VOLUME (test code = TVA) 300 ml ABG PEEP (test code = PEEPA) 14 cmH2O ABG SITE (test code = SITEA) Art Line HGB [id number] 16:57:00* Test Item Value Reference Range Interpretation Comme nts HEMOGLOBIN (test code = HGB) 9.2 g/dL 11.0-15.0 L HEMATOCRIT (test code = HCT) 28.8 % 33.0-45.0 L INFLUENZA A [id number] 15:27:00* Test Item Value Reference Range Interpretation Comme nts INFLUENZA A (test code = FLUAPCR) Negative Negative INFLUENZA B (test code = FLUBPCR) Negative Negative HGB [id number] 14:07:00* Test Item Value Reference Range Interpretation Comme nts HEMOGLOBIN (test code = HGB) 8.8 g/dL 11.0-15.0 L HEMATOCRIT (test code = HCT) 27.2 % 33.0-45.0 L - XR CHEST 1 [id number] 08:28:00 [facility] : 1985 Sex: F FAX: Rishabh Manning MD [place]: St: [facility] FAX: Kadie Hardin MD FAX: Darin Page [phone] Name: MARLENE MANCILLA [facility] : 1985 Age/S: 38/F [address] [place] [address] Unit #: [id number] Loc: G.M309 [place] [address] Phys: Rishabh Manning MD Acct: [id number] Dis Date: Status: ADM IN PHONE #: [phone] Exam Date: 04/28/2023704 FAX #: [phone] Reason: pneumonia EXAMS: CPT CODE: [id number] XR CHEST 1 V [id number] EXAM: CHEST ONE VIEW INDICATION: PNEUMONIA LOCATION: B2 COMPARISON: April 27, 2023 TECHNIQUE: AP view of the chest FINDINGS: The endotracheal tube and enteric tube are unchanged. The heart size is normal. There are improving congestive changes bilaterally. No pneumothorax orpleural effusion is identified. The osseous structures are normal. IMPRESSION: Improving congestivechanges bilaterally. at 0828 Reported and signed by: Alicia Pendleton M.D. CC: Rishabh Manning MD; Kadie Hardin MD; Darin Dumont MD Technologist: Karrie Tyson, RT(R); RT Francia(R) Trnnerd Date/Time/By: 04/28/2023 (827) : By: [email or web address] Orig Print D/T: S: 04/28/2023 (5073) PAGE 1 S[facility] Report[facility] ART[facility] BLO[facility] [id number] 06:51:00* Test Item Value Reference Range Interpretation Comme nts POC ARTERIAL BLOOD GAS PH (t est code = POCPHA) 7.401 7.35-7.45 N POC ARTERIAL BLOOD GAS PCO2 (test code = RUOMZN0X) 43.1 mmHg 35.0-45 N POC TCO2 ARTERIAL (test code = POCTCO2) 28.1 POC ARTERIAL BLOOD GAS PO2 ( test code = QOOLF0A) 50.0 mmHg 80-100.0 L POC HCO3 ARTERIAL (test code = RAIUDC1J) 26.7 MMOL/L 22.0-26.0 H POC BASE EXCESS (test code = POCBEA) 2.0 MMOL/L -4.0-4.0 N POC O2 SATURATION (test code = POCO2S) 84.8 % 90-100 L FIO2 (test code = FIO2A) 55 % PaO2/FiO2 (test code = FSX6FUS7) 90.90 mm/Hg ABG DELIVERY (test code = BETTY) Adult Vent ABG VENT MODE (test code = MODEA) SIMV ABG VENT RESP RATE (test cod e = RRA) 25 /MIN ABG TIDAL VOLUME (test code = TVA) 300 ml ABG PEEP (test code = PEEPA) 14 cmH2O ABG SITE (test code = SITEA) R Radial DINA'S TEST (test code = ALLENS) Positive COMPREHENSIVE METABOLIC [id number] 05:23:00* Test Item Value Reference Range Interpretation Comme nts SODIUM (test code = NA) 142 mEq/L 134-147 N POTASSIUM (test code = K) 4.0 mEq/L 3.4-5.0 N CHLORIDE (test code = CL) 104 mEq/L 100-108 N CARBON DIOXIDE (test code = CO2) 27 mEq/l 21-33 N ANION GAP (test code = GAP) 15 0-20 N GLUCOSE (test code = GLU) 106 mg/dL 77-141 N NOTE: NEW NORMAL RANGE BLOOD UREA NITROGEN (test code = BUN) 45 mg/dL 7-25 H NOTE: NEW NORM AL RANGE GLOMERULAR FILTRATION RATE (test code = GFR) 15.2 95-105 L The Glomerular Filtration Rate is a calculated parameterbased on serum Creatinine, patient age and sex. GFR valuesless than 60 mL/min/1.73 square meters are indicative ofChronic Kidney Disease. Values less than 15 mL/min/1.73square meters indicate Kidney failure. The calculation forGFR is based on the CKD-EPI (2020) calculation. This formulais race indifferent and is the recommended formula for GFRby the National Kidney Foundation for Adults.The GFR will not calculate if the sex is unknown or if thepatient's age is <18 years. CREATININE (test code = CREAT) 3.7 mg/dL 0.6-1.3 H TOTAL PROTEIN (test code = PROT) 5.7 g/dL 6.4-8.2 L ALBUMIN (test code = ALB) 2.40 g/dL 3.4-5.0 L CALCIUM (test code = CA) 8.8 mg/dL 8.0-10.5 N BILIRUBIN TOTAL (test code = BILT) 0.30 mg/dL 0.0-1.0 N SGOT/AST (test code = AST) 21 IUnit/L 8-34 N NOTE: NEW NORMAL RANGE SGPT/ALT (test code = ALT) < 7 IUnit/L 10-49 L NOTE: NEW NORMAL RANGE ALKALINE PHOSPHATASE TOTAL (test code = ALKP) 77 IUnit/L 20-125 N [id number] 05:23:00* Test Item Value Reference Range Interpretation Comme nts PHOSPHOROUS (test code = PHOS) 7.3 MG/DL 2.5-4.9 H [id number] 05:23:00* Test Item Value Reference Range Interpretation Comme nts MAGNESIUM (test code = MAG) 2.67 mg/dL 1.6-2.6 H NOTE: NEW NORMAL RANGE CALCIUM [id number] 05:23:00* Test Item Value Reference Range Interpretation Comme nts CALCIUM IONIZED (test code = TRAVIS) 1.09 MMOL/L 1.09-1.30 N CBC W/AUTO [id number] 05:03:00* Test Item Value Reference Range Interpretation Comme nts WHITE BLOOD CELL (test code = WBC) 12.1 x10 3/uL 4.5-11.0 H RED BLOOD CELL (test code = RBC) 3.06 x10 6/uL 3.54-5.02 L HEMOGLOBIN (test code = HGB) 9.0 g/dL 11.0-15.0 L HEMATOCRIT (test code = HCT) 28.2 % 33.0-45.0 L MEAN CELL VOLUME (test code = MCV) 92.2 fL 81.0-99.0 N MEAN CELL HGB (test code = MCH) 29.4 pg 27.0-33.0 N MEAN CELL HGB CONCETRATION (test code = MCHC) 31.9 g/dL 33.0-37.0 L RED CELL DISTRIBUTION WIDTH CV (test code = RDW) 18.1 % 11.5-14.5 H RED CELL DISTRIBUTION WIDTH SD (test code = RDW-SD) 60.1 fL 37.0-54.0 H PLATELET COUNT (test code = PLT) 164 x10 3/uL 150-400 N MEAN PLATELET VOLUME (test code = MPV) 10.8 fL 7.0-9.0 H NEUTROPHIL % (test code = NT%) 83.4 % 56.0-77.0 H IMMATURE GRANULOCYTE % (test code = IG%) 1.3 % 0.0-2.0 N LYMPHOCYTE % (test code = LY%) 11.5 % 14.0-32.0 L MONOCYTE % (test code = MO%) 2.3 % 4.8-9.0 L EOSINOPHIL % (test code = EO%) 1.3 % 0.3-3.7 N BASOPHIL % (test code = BA%) 0.2 % 0.0-2.0 N NUCLEATED RBC % (test code = NRBC%) 0.0 % 0-0 N NEUTROPHIL # (test code = NT#) 10.11 x10 3/uL 2.0-7.6 H IMMATURE GRANULOCYTE # (test code = IG#) 0.16 x10 3/uL 0.00-0.03 H LYMPHOCYTE # (test code = LY#) 1.40 x10 3/uL 1.0-3.8 N MONOCYTE # (test code = MO#) 0.28 x10 3/uL 0.1-0.8 N EOSINOPHIL # (test code = EO#) 0.16 x10 3/uL 0.0-0.2 N BASOPHIL # (test code = BA#) 0.02 x10 3/uL 0.0-0.2 N NUCLEATED RBC # (test code = NRBC#) 0.00 x10 3/uL 0.0-0.1 N HGB [id number] 22:59:00* Test Item Value Reference Range Interpretation Comme nts HEMOGLOBIN (test code = HGB) 9.0 g/dL 11.0-15.0 L HEMATOCRIT (test code = HCT) 27.3 % 33.0-45.0 L POC ARTERIAL BLOOD [id number] 12:12:00* Test Item Value Reference Range Interpretation Comme nts POC ARTERIAL BLOOD GAS PH (t est code = POCPHA) 7.364 7.35-7.45 N POC ARTERIAL BLOOD GAS PCO2 (test code = YIFNRX1U) 55.3 mmHg 35.0-45 HH POC TCO2 ARTERIAL (test code = POCTCO2) 33.2 POC ARTERIAL BLOOD GAS PO2 ( test code = IBWQF0N) 85.1 mmHg 80-100.0 N POC HCO3 ARTERIAL (test code = ZPYXQM4R) 31.5 MMOL/L 22.0-26.0 HH POC BASE EXCESS (test code = POCBEA) 6.2 MMOL/L -4.0-4.0 H POC O2 SATURATION (test code = POCO2S) 95.8 % 90-100 N FIO2 (test code = FIO2A) 60.0 % PaO2/FiO2 (test code = VWK7INU0) 141.80 mm/Hg ABG DELIVERY (test code = BETTY) Adult Vent ABG VENT MODE (test code = MODEA) AC ABG VENT RESP RATE (test cod e = RRA) 25 /MIN ABG TIDAL VOLUME (test code = TVA) 300 ml ABG PEEP (test code = PEEPA) 17 cmH2O ABG SITE (test code = SITEA) Art Line DINA'S TEST (test code = ALLENS) N/A HGB [id number] 11:31:00* Test Item Value Reference Range Interpretation Comme nts HEMOGLOBIN (test code = HGB) 6.8 g/dL 11.0-15.0 L HEMATOCRIT (test code = HCT) 21.7 % 33.0-45.0 L BODY FLUID CELL CT/[id number] 08:38:00* Test Item Value Reference Range Interpretation Comments FLUID SOURCE (test code = SOURCEFL) BRONCHIAL LAVAGE RULReference interva ls and other method performancespecifications may be unavailable for certain body fluids.The test results must be integrated into the clinicalcontext for interpretation. FLUID COLOR (test code = COLFL) Red FLUID APPEARANCE (test code = APPFL) CLOUDY FLUID WBC (test code = WBCFL) 275 MM3 0-500 N FLUID RBC (test code = RBCFL) 54069 MM3 See_Comment N [Automated messa ge] The system which generated this result transmitted reference range: <=100,000. The reference range was not used to interpret this result as normal/abnormal. FLUID POLY (test code = POLYFL) 98 % FLUID LYMPHOCYTE (test code = LYMPHFL) 1 % FLUID MONOCYTE (test code = MONOFL) 1 % COMMENTS: Bronchoaveolar lavage- XR CHEST 1 [id number] 07:44:00 [facility] 1985 Sex: F FAX: Rishabh Manning MD [place]: St: [facility] FAX: Kadie Hardin MD FAX: Darin Page [phone] Name: BELENJoseMARLENE [facility] : 1985 Age/S: 38/F [address] [place] [address] Unit #: [id number] Loc: G.M309 [place] [address] Phys: Rishabh Manning MD Acct: [id number] Dis Date: Status: ADM IN PHONE #: [phone] Exam Date: 04/27/2023721 FAX #: [phone] Reason: pneumonia EXAMS: CPT CODE: [id number] XR CHEST 1 V [id number] EXAM: - XR CHEST 1 V Location code:C3 HISTORY: pneumonia COMPARISON: 04/26/2023 IMPRESSION: Single AP view of the chest is provided. Support lines and tubes are unchanged. Bilateral pulmonary opacities are similar. There is no pneumothorax. No additional interval change. Cherelle ctronically Signed by Adrian Fry on 04/27/2023 at 0744 Reported and signed by: Ronald Fry M.D. CC: Rishabh Manning MD; Kadie Hardin MD; Darin Dumont MD Technologist: Karrie Tyson RT(R); RT Francia(R) Trnscrd Date/Time/By: 04/27/2023 (0744) : By: [email or web address] Orig Print D/T: S: 04/27/2023 (0748) PAGE 1 Signed ReportCOMPREHENSIVE METABOLIC PANEL 2023-04-27 06:51:00* Test Item Value Reference Range Interpretation Comme nts SODIUM (test code = NA) 143 mEq/L 134-147 N POTASSIUM (test code = K) 3.6 mEq/L 3.4-5.0 N CHLORIDE (test code = CL) 106 mEq/L 100-108 N CARBON DIOXIDE (test code = CO2) 32 mEq/l 21-33 ANION GAP (test code = GAP) 9 0-20 N GLUCOSE (test code = GLU) 95 mg/dL 77-141 N NOTE: NEW NORMAL RANGE BLOOD UREA NITROGEN (test code = BUN) 32 mg/dL 7-25 H NOTE: NEW NORM AL RANGE GLOMERULAR FILTRATION RATE (test code = GFR) 19.5 95-105 L The Glomerular Filtration Rate is a calculated parameterbased on serum Creatinine, patient age and sex. GFR valuesless than 60 mL/min/1.73 square meters are indicative ofChronic Kidney Disease. Values less than 15 mL/min/1.73square meters indicate Kidney failure. The calculation forGFR is based on the CKD-EPI (2020) calculation. This formulais race indifferent and is the recommended formula for GFRby the National Kidney Foundation for Adults.The GFR will not calculate if the sex is unknown or if thepatient's age is <18 years. CREATININE (test code = CREAT) 3.0 mg/dL 0.6-1.3 H TOTAL PROTEIN (test code = PROT) 5.0 g/dL 6.4-8.2 L ALBUMIN (test code = ALB) 2.30 g/dL 3.4-5.0 L CALCIUM (test code = CA) 7.9 mg/dL 8.0-10.5 L BILIRUBIN TOTAL (test code = BILT) 0.30 mg/dL 0.0-1.0 N SGOT/AST (test code = AST) 23 IUnit/L 8-34 N NOTE: NEW NORMAL RANGE SGPT/ALT (test code = ALT) < 7 IUnit/L 10-49 L NOTE: NEW NORMAL RANGE ALKALINE PHOSPHATASE TOTAL (test code = ALKP) 54 IUnit/L 20-125 N [id number] 06:51:00* Test Item Value Reference Range Interpretation Comme nts PHOSPHOROUS (test code = PHOS) 4.7 MG/DL 2.5-4.9 N LACTIC DEHYDROGENASE(LDH)2023-04-27 06:51:00* Test Item Value Reference Range Interpretation Comme nts LACTIC DEHYDROGENASE(LDH) (t est code = LDH) 568 IUnits/L 84-246 H [id number] 06:51:00* Test Item Value Reference Range Interpretation Comme nts MAGNESIUM (test code = MAG) 2.64 mg/dL 1.6-2.6 H NOTE: NEW NORMAL RANGE CALCIUM [id number] 06:51:00* Test Item Value Reference Range Interpretation Comme nts CALCIUM IONIZED (test code = TRAVIS) 1.02 MMOL/L 1.09-1.30 L TOTAL IRON BINDING [id number] 06:46:00* Test Item Value Reference Range Interpretation Comme nts SERUM IRON (test code = IRON) 13 mcg/dL 35-150 L TOTAL IRON BINDING CAPACITY (test code = TIBC) 145 mcg/dL 260-445 L UIBC (test code = UIBC) 132 mcg/dL IRON SATURATION (test code = FESAT) 9.0 % 14-34 L CBC W/AUTO [id number] 06:27:00* Test Item Value Reference Range Interpretation Comme nts WHITE BLOOD CELL (test code = WBC) 8.2 x10 3/uL 4.5-11.0 N RED BLOOD CELL (test code = RBC) 2.47 x10 6/uL 3.54-5.02 L HEMOGLOBIN (test code = HGB) 7.2 g/dL 11.0-15.0 L HEMATOCRIT (test code = HCT) 22.2 % 33.0-45.0 L MEAN CELL VOLUME (test code = MCV) 89.9 fL 81.0-99.0 N MEAN CELL HGB (test code = MCH) 29.1 pg 27.0-33.0 N MEAN CELL HGB CONCETRATION (test code = MCHC) 32.4 g/dL 33.0-37.0 L RED CELL DISTRIBUTION WIDTH CV (test code = RDW) 18.2 % 11.5-14.5 H RED CELL DISTRIBUTION WIDTH SD (test code = RDW-SD) 58.7 fL 37.0-54.0 H PLATELET COUNT (test code = PLT) 124 x10 3/uL 150-400 L MEAN PLATELET VOLUME (test c ode = MPV) 10.5 fL 7.0-9.0 H NEUTROPHIL % (test code = NT%) 79.9 % 56.0-77.0 H IMMATURE GRANULOCYTE % (test code = IG%) 1.3 % 0.0-2.0 N LYMPHOCYTE % (test code = LY%) 15.1 % 14.0-32.0 N MONOCYTE % (test code = MO%) 2.4 % 4.8-9.0 L EOSINOPHIL % (test code = EO%) 1.2 % 0.3-3.7 N BASOPHIL % (test code = BA%) 0.1 % 0.0-2.0 N NUCLEATED RBC % (test code = NRBC%) 0.0 % 0-0 N NEUTROPHIL # (test code = NT#) 6.53 x10 3/uL 2.0-7.6 N IMMATURE GRANULOCYTE # (test code = IG#) 0.11 x10 3/uL 0.00-0.03 H LYMPHOCYTE # (test code = LY#) 1.24 x10 3/uL 1.0-3.8 N MONOCYTE # (test code = MO#) 0.20 x10 3/uL 0.1-0.8 N EOSINOPHIL # (test code = EO#) 0.10 x10 3/uL 0.0-0.2 N BASOPHIL # (test code = BA#) 0.01 x10 3/uL 0.0-0.2 N NUCLEATED RBC # (test code = NRBC#) 0.00 x10 3/uL 0.0-0.1 N RETIC COUNT (AUTOMATED)2023-04-27 06:27:00* Test Item Value Reference Range Interpretation Comme nts RETIC COUNT (AUTOMATED) (je t code = RETICA) 2.0 % 0.3-2.3 N POC ARTERIAL BLOOD [id number] 05:07:00* Test Item Value Reference Range Interpretation Comme nts POC ARTERIAL BLOOD GAS PH (t est code = POCPHA) 7.469 7.35-7.45 H POC ARTERIAL BLOOD GAS PCO2 (test code = [id number]) 46.1 mmHg 35.0-45 H POC TCO2 ARTERIAL (test code = POCTCO2) 34.9 POC ARTERIAL BLOOD GAS PO2 ( test code = BQUVN3R) 66.8 mmHg 80-100.0 L POC HCO3 ARTERIAL (test code = PFHXWP1O) 33.5 MMOL/L 22.0-26.0 HH POC BASE EXCESS (test code = POCBEA) 9.8 MMOL/L -4.0-4.0 H POC O2 SATURATION (test code = POCO2S) 93.9 % 90-100 N FIO2 (test code = FIO2A) 60 % PaO2/FiO2 (test code = [id number]) 111.33 mm/Hg ABG DELIVERY (test code = BETTY) Adult Vent ABG VENT MODE (test code = MODEA) AC ABG VENT RESP RATE (test cod e = RRA) 25 /MIN ABG TIDAL VOLUME (test code = TVA) 300 ml ABG PEEP (test code = PEEPA) 12 cmH2O ABG TEMPERATURE (test code = TEMPA) 98.6 F ABG SITE (test code = SITEA) Art Line DINA'S TEST (test code = ALLENS) N/A BASIC METABOLIC [id number] 05:07:00* Test Item Value Reference Range Interpretation Comme nts SODIUM (test code = NA/ABG) 146 mmol/L 134-147 N POTASSIUM (test code = K/ABG) 3.5 mmol/L 3.4-5.0 N CHLORIDE (test code = CL/ABG) 109 mmol/L 100-108 H CREATININE ABG (test code = CREAABG) 3.1 mg/dL 0.6-1.0 H POC IONIZED CALCIUM (test co de = POCCA) 1.05 MMOL/L 1.12-1.32 L POC GLUCOSE (test code = POCGLU) 88 MG/DL 70-110 N HEMOGLOBIN [id number] 05:07:00* Test Item Value Reference Range Interpretation Comme nts HEMOGLOBIN ABG (test code = HGB/ABG) 6.3 G/DL 11.0-15.0 L [id number] 05:07:00* Test Item Value Reference Range Interpretation Comme nts HEMATOCRIT (test code = HCT/ABG) 19 % 33.0-45.0 L POC LACTIC [id number] 05:07:00* Test Item Value Reference Range Interpretation Comme nts POC LACTIC ACID (test code = POCLAC) 0.5 mmol/l 0.9-1.7 L HGB [id number] 00:51:00* Test Item Value Reference Range Interpretation Comme nts HEMOGLOBIN (test code = HGB) 6.9 g/dL 11.0-15.0 L HEMATOCRIT (test code = HCT) 20.7 % 33.0-45.0 L POC ARTERIAL BLOOD [id number] 00:26:00* Test Item Value Reference Range Interpretation Comme nts POC ARTERIAL BLOOD GAS PH (t est code = POCPHA) 7.549 7.35-7.45 HH POC ARTERIAL BLOOD GAS PCO2 (test code = FCBRFU6H) 41.1 mmHg 35.0-45 N POC TCO2 ARTERIAL (test code = POCTCO2) 37.1 POC ARTERIAL BLOOD GAS PO2 ( test code = LYLWD6Y) 292.8 mmHg 80-100.0 HH POC HCO3 ARTERIAL (test code = CPDXOT6H) 35.9 MMOL/L 22.0-26.0 HH POC BASE EXCESS (test code = POCBEA) 13.5 MMOL/L -4.0-4.0 H POC O2 SATURATION (test code = POCO2S) 99.9 % 90-100 N FIO2 (test code = FIO2A) 100 % PaO2/FiO2 (test code = LRS0EBZ4) 292.80 mm/Hg ABG DELIVERY (test code = BETTY) Adult Vent ABG VENT MODE (test code = MODEA) AC ABG VENT RESP RATE (test cod e = RRA) 30 /MIN ABG TIDAL VOLUME (test code = TVA) 300 ml ABG PEEP (test code = PEEPA) 14 cmH2O ABG TEMPERATURE (test code = TEMPA) 98.6 F ABG SITE (test code = SITEA) Art Line DINA'S TEST (test code = ALLENS) N/A BASIC METABOLIC [id number] 00:26:00* Test Item Value Reference Range Interpretation Comme nts SODIUM (test code = NA/ABG) 146 mmol/L 134-147 N POTASSIUM (test code = K/ABG) 3.7 mmol/L 3.4-5.0 N CHLORIDE (test code = CL/ABG) 106 mmol/L 100-108 N CREATININE ABG (test code = CREAABG) 3.1 mg/dL 0.6-1.0 H POC IONIZED CALCIUM (test co de = POCCA) 1.01 MMOL/L 1.12-1.32 L POC GLUCOSE (test code = POCGLU) 119 MG/DL 70-110 H HEMOGLOBIN [id number] 00:26:00* Test Item Value Reference Range Interpretation Comme nts HEMOGLOBIN ABG (test code = HGB/ABG) 6.6 G/DL 11.0-15.0 L [id number] 00:26:00* Test Item Value Reference Range Interpretation Comme nts HEMATOCRIT (test code = HCT/ABG) 19 % 33.0-45.0 L POC LACTIC [id number] 00:26:00* Test Item Value Reference Range Interpretation Comme nts POC LACTIC ACID (test code = POCLAC) 1.1 mmol/l 0.9-1.7 N Novel Coronavirus 20:48:00* Test Item Value Reference Range Interpretation Comme nts Novel Coronavirus 2018 Inhouse (test code = [id number]) Negative Negative Positive resul ts are indicative of the presence xjPNUV-MqH-3 RNA, clinical correlation with patient historyand other diagnostic information is necessary to determinepatient infection status. Positive results do not rule outbacterial infection or co-infection with other viruses. Negative results do not preclude SARS-CoV-2 infection andshould not be used as the sole basis for patient managementdecisions. Negative results must be combined with otherclinical observations, patient history, and epidemiologicalinformation . Detection of SARS-CoV-2 RNA may be affected bysample collection methods, storage conditions, and/or stageof infection. Viral RNA mutations, vaccinations, antiviraltherapeutics, antibiotics, chemotherapeutic orimmunosuppressant drugs have not been evaluated for effectson detection. Results are for the identification of SARS-CoV-2 RNA usingreal-time (RT) polymerase chain reaction (PCR) technologyfor the qualitative detection of nucleic acids from dcbJVVG-KbL-7 virus and diagnosis of SARS-CoV-2 virusinfection. It is an Emergency Use Authorization (EUA) testauthorized by the U.S. FDA. COMMENTS: SARS-CoV-2 PCRHGB [id number] 20:29:00* Test Item Value Reference Range Interpretation Comme nts HEMOGLOBIN (test code = HGB) 7.1 g/dL 11.0-15.0 L HEMATOCRIT (test code = HCT) 21.1 % 33.0-45.0 L POC ARTERIAL BLOOD [id number] 18:48:00* Test Item Value Reference Range Interpretation Comme nts POC ARTERIAL BLOOD GAS PH (t est code = POCPHA) 7.345 7.35-7.45 L POC ARTERIAL BLOOD GAS PCO2 (test code = DYJZSY2C) 45.7 mmHg 35.0-45 H POC TCO2 ARTERIAL (test code = POCTCO2) 26.4 POC ARTERIAL BLOOD GAS PO2 ( test code = QSFHW8H) 104.1 mmHg 80-100.0 H POC HCO3 ARTERIAL (test code = KPFDUZ0L) 25.0 MMOL/L 22.0-26.0 N POC BASE EXCESS (test code = POCBEA) -0.7 MMOL/L -4.0-4.0 N POC O2 SATURATION (test code = POCO2S) 97.6 % 90-100 N FIO2 (test code = FIO2A) 100.0 % PaO2/FiO2 (test code = HGW3WKJ4) 104.10 mm/Hg ABG DELIVERY (test code = BETTY) Adult Vent ABG VENT MODE (test code = MODEA) AC ABG VENT RESP RATE (test cod e = RRA) 30 /MIN ABG TIDAL VOLUME (test code = TVA) 300 ml ABG PEEP (test code = PEEPA) 18 cmH2O ABG SITE (test code = SITEA) Art Line DINA'S TEST (test code = ALLENS) N/A - XR CHEST 1 [id number] 17:56:00 [facility] 1985 Sex: F FAX: Vik Tilley MD [phone] [place]: St: [facility] FAX: Kadie Hardin MD FAX: Sandra Page [phone] Name: MARLENE MANCILLA [facility] : 1985 Age/S: 38/F [address] [place] [address] Unit #: [id number] Loc: G.09 [place] [address] Phys: Vik Hinds MD Acct: [id number] Dis Date: Status: ADM INPHONE #: [phone] Exam Date: 04/26/2023 1720 FAX #: [phone] Reason: S/P INTUBATION EXAMS: CPT CODE: [id number] XR CHEST 1 V [id number] REASON FOR EXAM: S/P INTUBATION Exam Order Date: 04/26/2023 4:45 PM Ordering Adrian: Vik Hinds MD PROCEDURE: - XR CHEST 1 V COMPARISON: Chest x-ray earlier thisafternoon FINDINGS/ IMPRESSION: Patient has been intubated. ET tube terminates 4.5 cm above the andrews. Enteric suction tube has been inserted into the stomach. Worsening airspace disease in the right lung. Airspace disease in the left lung is unchanged. Heart and skeletal structures are unchanged.Location: H82 at 1756 Reported and signed by: Cyrus Lozano M.D. CC: Vik Hinds MD; Kadie Hardin MD; Darin Dumont MD Technologist: RT Jd(Leonard) Trnscrd Date/Time/By: 04/26/2023 (773) : By: [email or web address] Orig Print D/T: S: 04/26/2023 (4930) PAGE 1 Signed Report- XR CHEST 1 [id number] 16:10:00[facility] : 1985 Sex: F FAX: Vik Tilley MD [phone] [place]: St: [facility] FAX: Kadie Hardin MD FAX: Sandra Page [phone] Name: MARLENE MANCILLA [facility] [place] : 1985 Age/S: 38/F [address] [place] [address] Unit #: [id number] Loc: [address] [place] [address] Phys: Vik Hinds MD Acct: [id number] Dis Date: Status: ADM INPHONE #: [phone] Exam Date: 04/26/2023 1555 FAX #: [phone] Reason: SOB EXAMS: CPT CODE: [id number] XR CHEST 1 V [id number] EXAM: - XR CHEST 1 V CLINICAL HISTORY: SOB TECHNIQUE: Single frontal view. COMPARISON: Chest radiograph 04/22/2023 LOCATION: U19 FINDINGS: The trachea appears normal. Themediastinum and cardiac silhouette are within normal limits for size. Moderate patchy bilateral airspace opacities throughout the lungs. No pleural effusions. Visualized soft tissues and osseous structures are grossly unremarkable. IMPRESSION: Moderate patchy bilateral airspace opacities, favoringmultifocal infection. at 1610 Reported and signed by: Bjorn Hays D.O. CC: Vik Hinds MD; Kadie Hardin MD; Darin Dumont MD Technologist: RT Allie(R) Trnscrd Date/Time/By: 04/26/2023 (1610) : By: [email or web address] Orig Print D/T: S: 04/26/2023 (2173) PAGE 1 Signed ReportHGB [id number] 13:49:00* Test Item Value Reference Range Interpretation Comme nts HEMOGLOBIN (test code = HGB) 8.1 g/dL 11.0-15.0 L HEMATOCRIT (test code = HCT) 24.5 % 33.0-45.0 L RESPIRATORY VIRUS PANEL [id number] 13:36:00* Test Item Value Reference Range Interpretation Comments RSV A PCR (test code = RSV A) Negative Negative RSV B PCR (test code = RSV B) Negative Negative INFLUENZA A (test code = FLUAPCR) Negative Negative INFLUENZA A SUBTYPE H1 (test code = FLUAH1) Negative Negative INFLUENZA A SUBTYPE H3 (test code = FLUAH3) Negative Negative INFLUENZA B (test code = FLUBPCR) Negative Negative PARAINFLUENZA TYPE 1 PCR (test code = PIF1) Negative Negative PARAINFLUENZA TYPE 2 PCR (test code = PIF2) Negative Negative PARAINFLUENZA TYPE 3 PCR (test code = PIF3) Negative Negative PARAINFLUENZA TYPE 4 PCR (test code = PIF4) Negative Negative RHINOVIRUS PCR (test code = RHINO) Negative Negative METAPNEUMOVIRUS PCR (test code = METAPNEU) Negative Negative ADENOVIRUS PCR (test code = ADENOPCR) Negative Negative BORDETELLA PERTUSSIS DNA PCR (test code = BORDPERDNA) Negative Negative B PARAPERTUSSIS BY PCR (test code = BPARAPCR) Negative Negative BORDETELLA HOLMESII (test code = BORDHOLM) Negative Negative Testing was perf ormed using nucleic acid amplificationincluding Bordetella parapertussis/brochiseptic a, Bordetella holmesii, and Bordetella pertussis. RVP RESULT COMMENT (test code = RVPCOMM) RVP Comment Comment Testing was perf ormed using nucleic acid amplificationincluding influenza A, influenza A H1, influenza A H3,influenza B, RSV-A, RSV-B, Adenovirus, HumanMetapneumovirus, Parainfluenza 1,2,3 and 4, Rhinovirus, Bordetella parapertussis/brochiseptic a, Bordetella holmesii, and Bordetella pertussis. FLU/COVID +/- RSV result negative prior to ordering RVP: YesDesired post - result action: [facility] [id number] 08:06:00 * Test Item Value Reference Range Interpretation Comme nts POC ARTERIAL BLOOD GAS PH (t est code = POCPHA) 7.386 7.35-7.45 N POC ARTERIAL BLOOD GAS PCO2 (test code = QJKANE9Z) 27.3 mmHg 35.0-45 LL POC TCO2 ARTERIAL (test code = POCTCO2) 17.2 POC ARTERIAL BLOOD GAS PO2 ( test code = KMOXL0A) 105.9 mmHg 80-100.0 H POC HCO3 ARTERIAL (test code = YAQMCB4X) 16.4 MMOL/L 22.0-26.0 LL POC BASE EXCESS (test code = POCBEA) -8.6 MMOL/L -4.0-4.0 L POC O2 SATURATION (test code = POCO2S) 98.2 % 90-100 N FIO2 (test code = FIO2A) 100 % PaO2/FiO2 (test code = JOF1XSX5) 105.90 mm/Hg ABG DELIVERY (test code = BETTY) BiPAP ABG VENT MODE (test code = MODEA) BiLevel ABG VENT RESP RATE (test cod e = RRA) 16 /MIN ABG PEEP (test code = PEEPA) 6 cmH2O ABG PRESSURE SUPPORT (test c ode = PSABG) 12 cmH2O ABG SITE (test code = SITEA) R Radial DINA'S TEST (test code = ALLENS) Positive COMPREHENSIVE METABOLIC [id number] 06:59:00* Test Item Value Reference Range Interpretation Comme nts SODIUM (test code = NA) 136 mEq/L 134-147 N POTASSIUM (test code = K) 3.2 mEq/L 3.4-5.0 L CHLORIDE (test code = CL) 107 mEq/L 100-108 N CARBON DIOXIDE (test code = CO2) 17 mEq/l 21-33 L ANION GAP (test code = GAP) 16 0-20 N GLUCOSE (test code = GLU) 91 mg/dL 77-141 NOTE: NEW NORMAL RANGE BLOOD UREA NITROGEN (test code = BUN) 33 mg/dL 7-25 H NOTE: NEW NORM AL RANGE GLOMERULAR FILTRATION RATE (test code = GFR) 19.5 95-105 L The Glomerular Filtration Rate is a calculated parameterbased on serum Creatinine, patient age and sex. GFR valuesless than 60 mL/min/1.73 square meters are indicative ofChronic Kidney Disease. Values less than 15 mL/min/1.73square meters indicate Kidney failure. The calculation forGFR is based on the CKD-EPI (202) calculation. This formulais race indifferent and is the recommended formula for GFRby the National Kidney Foundation for Adults.The GFR will not calculate if the sex is unknown or if thepatient's age is <18 years. CREATININE (test code = CREAT) 3.0 mg/dL 0.6-1.3 H TOTAL PROTEIN (test code = PROT) 5.8 g/dL 6.4-8.2 L ALBUMIN (test code = ALB) 2.90 g/dL 3.4-5.0 L CALCIUM (test code = CA) 7.5 mg/dL 8.0-10.5 L BILIRUBIN TOTAL (test code = BILT) 0.40 mg/dL 0.0-1.0 SGOT/AST (test code = AST) 31 IUnit/L 8-34 NOTE: NEW NORMAL RANGE SGPT/ALT (test code = ALT) < 7 IUnit/L 10-49 L NOTE: NEW NORMAL RANGE ALKALINE PHOSPHATASE TOTAL (test code = ALKP) 65 IUnit/L 20-125 N [id number] 06:59:00* Test Item Value Reference Range Interpretation Comme nts PHOSPHOROUS (test code = PHOS) 4.4 MG/DL 2.5-4.9 [id number] 06:59:00* Test Item Value Reference Range Interpretation Comme nts MAGNESIUM (test code = MAG) 2.63 mg/dL 1.6-2.6 H NOTE: NEW NORMAL RANGE CALCIUM [id number] 06:59:00* Test Item Value Reference Range Interpretation Comme nts CALCIUM IONIZED (test code = TRAVIS) 1.06 MMOL/L 1.09-1.30 L CBC W/AUTO [id number] 06:20:00* Test Item Value Reference Range Interpretation Comme nts WHITE BLOOD CELL (test code = WBC) 13.3 x10 3/uL 4.5-11.0 H RED BLOOD CELL (test code = RBC) 2.77 x10 6/uL 3.54-5.02 L HEMOGLOBIN (test code = HGB) 8.1 g/dL 11.0-15.0 L HEMATOCRIT (test code = HCT) 24.7 % 33.0-45.0 L MEAN CELL VOLUME (test code = MCV) 89.2 fL 81.0-99.0 N MEAN CELL HGB (test code = MCH) 29.2 pg 27.0-33.0 N MEAN CELL HGB CONCETRATION (test code = MCHC) 32.8 g/dL 33.0-37.0 L RED CELL DISTRIBUTION WIDTH CV (test code = RDW) 17.4 % 11.5-14.5 H RED CELL DISTRIBUTION WIDTH SD (test code = RDW-SD) 57.9 fL 37.0-54.0 H PLATELET COUNT (test code = PLT) 138 x10 3/uL 150-400 L MEAN PLATELET VOLUME (test code = MPV) 10.5 fL 7.0-9.0 H NEUTROPHIL % (test code = NT%) 83.9 % 56.0-77.0 H IMMATURE GRANULOCYTE % (test code = IG%) 2.0 % 0.0-2.0 N LYMPHOCYTE % (test code = LY%) 10.4 % 14.0-32.0 L MONOCYTE % (test code = MO%) 3.0 % 4.8-9.0 L EOSINOPHIL % (test code = EO%) 0.5 % 0.3-3.7 N BASOPHIL % (test code = BA%) 0.2 % 0.0-2.0 N NUCLEATED RBC % (test code = NRBC%) 0.2 % 0-0 H NEUTROPHIL # (test code = NT#) 11.21 x10 3/uL 2.0-7.6 H IMMATURE GRANULOCYTE # (test code = IG#) 0.26 x10 3/uL 0.00-0.03 H LYMPHOCYTE # (test code = LY#) 1.38 x10 3/uL 1.0-3.8 N MONOCYTE # (test code = MO#) 0.40 x10 3/uL 0.1-0.8 N EOSINOPHIL # (test code = EO#) 0.06 x10 3/uL 0.0-0.2 N BASOPHIL # (test code = BA#) 0.02 x10 3/uL 0.0-0.2 N NUCLEATED RBC # (test code = NRBC#) 0.02 x10 3/uL 0.0-0.1 N MANUAL DIFF REQUIRED (test code = MDIFF) NO POC ARTERIAL BLOOD [id number] 04:12:00* Test Item Value Reference Range Interpretation Comme nts POC ARTERIAL BLOOD GAS PH (t est code = POCPHA) 7.403 7.35-7.45 N POC ARTERIAL BLOOD GAS PCO2 (test code = PABLLK4F) 27.2 mmHg 35.0-45 LL POC TCO2 ARTERIAL (test code = POCTCO2) 17.8 POC ARTERIAL BLOOD GAS PO2 ( test code = PXHUH9E) 46.1 mmHg 80-100.0 LL POC HCO3 ARTERIAL (test code = OQCRCU2Y) 17.0 MMOL/L 22.0-26.0 LL POC BASE EXCESS (test code = POCBEA) -7.8 MMOL/L -4.0-4.0 L POC O2 SATURATION (test code = POCO2S) 82.9 % 90-100 L ABG SITE (test code = SITEA) R Brach DINA'S TEST (test code = ALLENS) Positive PROTHROMBIN [id number] 22:58:00* Test Item Value Reference Range Interpretation Comme nts PROTHROMBIN TIME PATIENT (test code = PTP) 11.7 SECONDS 9.3-12.9 N INTERNATIONAL NORMAL RATIO (test code = INR) 1.1 0.8-1.2 N TARGET INR BY INDICATION Indication INR1. Prophylaxis of venous thrombosis 2.0 - 3.0 (orthopedic surgery), Prophylaxis of venous thrombosis (other than high-risk surgery), Treatment of Deep Vein Thrombosis/Pulmonary Embolism, Prevention of systemic embolism - Tissue heart valves, Acute Myocardial Infarction (to prevent systemic embolism), Valvular heart disease, Atrial Fibrillation, Bileaflet mechanical valve in aortic position.2. Mechanical prosthetic valves (high risk), 2.5 - 3.5 Presence of Lupus Anticoagulant or Antiphospholipid Antibodies, Prevention of systemic embolism - Acute Myocardial Infarction (to prevent recurrent infarct). THROMBOPLASTIN TIME [id number] 22:58:00* Test Item Value Reference Range Interpretation Comme [facility] THROMBOPLASTIN TIME PARTIAL (test code = PTT) 29.5 Seconds 25.0-39.5 N Therapeutic Rang e: 50.4 - 88.3 Seconds Effective 08/15/2018 [id number] 22:58:00* Test Item Value Reference Range Interpretation Comme [facility] FIBRINOGEN (test code = FIB) 620 MG/DL 160-450 H Excess administr ation of anticoagulants and/or FibrinDegradation Products may affect Fibrinogen value. CREATINE KINASE (CK)2023-04-25 22:37:00* Test Item Value Reference Range Interpretation Comme [facility] CREATINE KINASE (CK) (test c ode = CK) 128 Units/L 34-145 N CBC W/AUTO [id number] 21:57:00* Test Item Value Reference Range Interpretation Comme [facility] WHITE BLOOD CELL (test code = WBC) 12.1 x10 3/uL 4.5-11.0 H RED BLOOD CELL (test code = RBC) 2.25 x10 6/uL 3.54-5.02 L HEMOGLOBIN (test code = HGB) 6.5 g/dL 11.0-15.0 L HEMATOCRIT (test code = HCT) 20.3 % 33.0-45.0 L MEAN CELL VOLUME (test code = MCV) 90.2 fL 81.0-99.0 N MEAN CELL HGB (test code = MCH) 28.9 pg 27.0-33.0 N MEAN CELL HGB CONCETRATION (test code = MCHC) 32.0 g/dL 33.0-37.0 L RED CELL DISTRIBUTION WIDTH CV (test code = RDW) 19.2 % 11.5-14.5 H RED CELL DISTRIBUTION WIDTH SD (test code = RDW-SD) 62.7 fL 37.0-54.0 H PLATELET COUNT (test code = PLT) 134 x10 3/uL 150-400 L MEAN PLATELET VOLUME (test code = MPV) 10.2 fL 7.0-9.0 H NEUTROPHIL % (test code = NT%) 87.2 % 56.0-77.0 H IMMATURE GRANULOCYTE % (test code = IG%) 2.0 % 0.0-2.0 N LYMPHOCYTE % (test code = LY%) 7.7 % 14.0-32.0 L MONOCYTE % (test code = MO%) 2.9 % 4.8-9.0 L EOSINOPHIL % (test code = EO%) 0.1 % 0.3-3.7 L BASOPHIL % (test code = BA%) 0.1 % 0.0-2.0 N NUCLEATED RBC % (test code = NRBC%) 0.0 % 0-0 N NEUTROPHIL # (test code = NT#) 10.52 x10 3/uL 2.0-7.6 H IMMATURE GRANULOCYTE # (test code = IG#) 0.24 x10 3/uL 0.00-0.03 H LYMPHOCYTE # (test code = LY#) 0.93 x10 3/uL 1.0-3.8 L MONOCYTE # (test code = MO#) 0.35 x10 3/uL 0.1-0.8 N EOSINOPHIL # (test code = EO#) 0.01 x10 3/uL 0.0-0.2 N BASOPHIL # (test code = BA#) 0.01 x10 3/uL 0.0-0.2 N NUCLEATED RBC # (test code = NRBC#) 0.00 x10 3/uL 0.0-0.1 N POC ARTERIAL BLOOD [id number] 21:19:00* Test Item Value Reference Range Interpretation Comme nts POC ARTERIAL BLOOD GAS PH (t est code = POCPHA) 7.364 7.35-7.45 N POC ARTERIAL BLOOD GAS PCO2 (test code = VDFAQE0G) 29.5 mmHg 35.0-45 LL POC TCO2 ARTERIAL (test code = POCTCO2) 17.7 POC ARTERIAL BLOOD GAS PO2 ( test code = PPYAX3Q) 74.8 mmHg 80-100.0 L POC HCO3 ARTERIAL (test code = NNVMIK7T) 16.8 MMOL/L 22.0-26.0 LL POC BASE EXCESS (test code = POCBEA) -8.6 MMOL/L -4.0-4.0 L POC O2 SATURATION (test code = POCO2S) 94.6 % 90-100 N FIO2 (test code = FIO2A) 100 % PaO2/FiO2 (test code = XTL1BZO5) 74.80 mm/Hg ABG DELIVERY (test code = BETTY) nrb ABG SITE (test code = SITEA) R Brach DINA'S TEST (test code = ALLENS) Positive POC ARTERIAL BLOOD [id number] 18:10:00* Test Item Value Reference Range Interpretation Comme nts POC ARTERIAL BLOOD GAS PH (t est code = POCPHA) 7.419 7.35-7.45 N POC ARTERIAL BLOOD GAS PCO2 (test code = RVXZEA3Y) 21.2 mmHg 35.0-45 LL POC TCO2 ARTERIAL (test code = POCTCO2) 14.4 POC ARTERIAL BLOOD GAS PO2 ( test code = ZRFQQ8U) 70.1 mmHg 80-100.0 L POC HCO3 ARTERIAL (test code = TZOKGF4R) 13.7 MMOL/L 22.0-26.0 LL POC BASE EXCESS (test code = POCBEA) -10.8 MMOL/L -4.0-4.0 L POC O2 SATURATION (test code = POCO2S) 94.7 % 90-100 N ABG DELIVERY (test code = BETTY) Cannula ABG SITE (test code = SITEA) L Radial DINA'S TEST (test code = ALLENS) Positive BASIC METABOLIC [id number] 18:10:00* Test Item Value Reference Range Interpretation Comme nts SODIUM (test code = NA/ABG) 131 mmol/L 134-147 L POTASSIUM (test code = K/ABG) 3.7 mmol/L 3.4-5.0 N CHLORIDE (test code = CL/ABG) 112 mmol/L 100-108 H CREATININE ABG (test code = CREAABG) 3.0 mg/dL 0.6-1.0 H POC IONIZED CALCIUM (test co de = POCCA) 0.99 MMOL/L 1.12-1.32 L POC GLUCOSE (test code = POCGLU) 147 MG/DL 70-110 H HEMOGLOBIN [id number] 18:10:00* Test Item Value Reference Range Interpretation Comme nts HEMOGLOBIN ABG (test code = HGB/ABG) 6.5 G/DL 11.0-15.0 L [id number] 18:10:00* Test Item Value Reference Range Interpretation Comme nts HEMATOCRIT (test code = HCT/ABG) 19 % 33.0-45.0 L POC LACTIC [id number] 18:10:00* Test Item Value Reference Range Interpretation Comme nts POC LACTIC ACID (test code = POCLAC) 0.4 mmol/l 0.9-1.7 L RENAL FUNCTION [id number] 17:15:00* Test Item Value Reference Range Interpretation Comme nts SODIUM (test code = NA) 134 mEq/L 134-147 N POTASSIUM (test code = K) 3.6 mEq/L 3.4-5.0 N CHLORIDE (test code = CL) 108 mEq/L 100-108 N CARBON DIOXIDE (test code = CO2) 16 mEq/l 21-33 L ANION GAP (test code = GAP) 14 0-20 N GLUCOSE (test code = GLU) 149 mg/dL 77-141 H NOTE: NEW NORMAL RANGE BLOOD UREA NITROGEN (test code = BUN) 34 mg/dL 7-25 H NOTE: NEW NORM AL RANGE GLOMERULAR FILTRATION RATE (test code = GFR) 18.8 95-105 L The Glomerular Filtration Rate is a calculated parameterbased on serum Creatinine, patient age and sex. GFR valuesless than 60 mL/min/1.73 square meters are indicative ofChronic Kidney Disease. Values less than 15 mL/min/1.73square meters indicate Kidney failure. The calculation forGFR is based on the CKD-EPI (202) calculation. This formulais race indifferent and is the recommended formula for GFRby the National Kidney Foundation for Adults.The GFR will not calculate if the sex is unknown or if thepatient's age is <18 years. CREATININE (test code = CREAT) 3.1 mg/dL 0.6-1.3 H ALBUMIN (test code = ALB) 3.10 g/dL 3.4-5.0 L CALCIUM (test code = CA) 7.0 mg/dL 8.0-10.5 L PHOSPHOROUS (test code = PHOS) 3.4 MG/DL 2.5-4.9 N POC ARTERIAL BLOOD [id number] 11:47:00* Test Item Value Reference Range Interpretation Comme nts POC ARTERIAL BLOOD GAS PH (t est code = POCPHA) 7.366 7.35-7.45 N POC ARTERIAL BLOOD GAS PCO2 (test code = EZBXZF6Z) 28.0 mmHg 35.0-45 LL POC TCO2 ARTERIAL (test code = POCTCO2) 16.9 POC ARTERIAL BLOOD GAS PO2 (test code = DCRNX7U) 107.5 mmHg 80-100.0 H POC HCO3 ARTERIAL (test code = LLCLBB3P) 16.0 MMOL/L 22.0-26.0 LL POC BASE EXCESS (test code = POCBEA) -9.3 MMOL/L -4.0-4.0 L POC O2 SATURATION (test code = POCO2S) 98.1 % 90-100 N ABG DELIVERY (test code = BETTY) nonrebreather ABG SITE (test code = SITEA) L Radial DINA'S TEST (test code = ALLENS) Positive - CTA CHEST FOR [id number] 21:41:00 [facility] LAKEName: MARLENE MANCILLA: 1985 Sex: F Name: MARLENE MANCILLA : 1985 Age/S: 38 / F [address] [place] [address] Unit #: [id number] Loc: [place] [address] Phys: Shilo Almonte MD Acct: [id number] Dis Date: Status: ADM INPHONE #: [phone] Exam Date: 04/24/20232128 FAX #: [phone] Reason: PT HAVING LOW OXYGEN LEVELS EXAMS: CPT CODE: [id number] [place] [address] LOCATION: B2 CTA CHEST WITH CONTRAST HISTORY: PT HAVING LOW OXYGEN LEVELS TECHNIQUE: Axial CT images were obtained through the chest after intravenous contrast utilizing pulmonary embolus protocol. Maximum intensity projection images were also created from the data set. One or more of the following dose reduction techniques were used: Automated exposure control, adjustment of the mA and/or kV according to patient size, and/or iterative recon struction. Unless otherwise specified, incidental findings do not require dedicated imaging follow-up. COMPARISON: Chest one view 04/22/2023 FINDINGS: The pulmonary arteries are well opacified with no evidence of pulmonary embolus. There is no evidence of thoracic aortic aneurysm or dissection. Confluent bilateral airspace opacities. No pleural effusion or pneumothorax. There is no significant mediastinal or hilar adenopathy. No acute osseous abnormalities. Maximum intensity projection images confirm these findings. IMPRESSION: Confluent bilateral pulmonary edema and/or pneumonia. No evidenceof pulmonary embolus. at 2141 Reported and signed by: Brandon Lazo M.D. PAGE 1 Signed Report (CONTINUED) Name: MARLENE MANCILLA : 1985 Age/S: 38 / F [address] [place] [address] Unit #: [id number] Loc: [place] [address] Phys: Shilo Almonte MD Acct: [id number] Dis Date: Status: ADM IN PHONE #: [phone] ExamDate: 04/24/20232128 FAX #: [phone] Reason: PT HAVING LOW OXYGEN LEVELS EXAMS: CPT CODE: [id number] [place] [id number] (Continued) CC: Shilo Alomnte MD Technologist:Fredy Sierra, RT(R)(CT) CTDI: DLP: Trnscb Date/Time: 04/24/2023 (2140) [email or web address] Orig Print D/T: S: 04/24/2023 (2143) PAGE 2 Signed ReportCBC W/AUTO [id number] 08:12:00* Test Item Value Reference Range Interpretation Comme nts WHITE BLOOD CELL (test code = WBC) 14.3 x10 3/uL 4.5-11.0 H RED BLOOD CELL (test code = RBC) 2.94 x10 6/uL 3.54-5.02 L HEMOGLOBIN (test code = HGB) 8.4 g/dL 11.0-15.0 L HEMATOCRIT (test code = HCT) 26.2 % 33.0-45.0 L MEAN CELL VOLUME (test code = MCV) 89.1 fL 81.0-99.0 MEAN CELL HGB (test code = MCH) 28.6 pg 27.0-33.0 N MEAN CELL HGB CONCETRATION (test code = MCHC) 32.1 g/dL 33.0-37.0 L RED CELL DISTRIBUTION WIDTH CV (test code = RDW) 19.9 % 11.5-14.5 H RED CELL DISTRIBUTION WIDTH SD (test code = RDW-SD) 64.0 fL 37.0-54.0 H PLATELET COUNT (test code = PLT) 167 x10 3/uL 150-400 N MEAN PLATELET VOLUME (test code = MPV) 10.0 fL 7.0-9.0 H NEUTROPHIL % (test code = NT%) 79.8 % 56.0-77.0 H LYMPHOCYTE % (test code = LY%) 9.5 % 14.0-32.0 L NEUTROPHIL # (test code = NT#) 11.43 x10 3/uL 2.0-7.6 H LYMPHOCYTE # (test code = LY#) 1.36 x10 3/uL 1.0-3.8 N IMMATURE GRANULOCYTE % (test code = IG%) 4.3 % 0.0-2.0 H MONOCYTE % (test code = MO%) 5.9 % 4.8-9.0 N EOSINOPHIL % (test code = EO%) 0.3 % 0.3-3.7 N BASOPHIL % (test code = BA%) 0.2 % 0.0-2.0 N NUCLEATED RBC % (test code = NRBC%) 0.0 % 0-0 N IMMATURE GRANULOCYTE # (test code = IG#) 0.62 x10 3/uL 0.00-0.03 H MONOCYTE # (test code = MO#) 0.84 x10 3/uL 0.1-0.8 H EOSINOPHIL # (test code = EO#) 0.04 x10 3/uL 0.0-0.2 N BASOPHIL # (test code = BA#) 0.03 x10 3/uL 0.0-0.2 N NUCLEATED RBC # (test code = NRBC#) 0.00 x10 3/uL 0.0-0.1 N MANUAL DIFF REQUIRED (test code = MDIFF) YES WBC [id number] 08:12:00* Test Item Value Reference Range Interpretation Comme nts BAND NEUTROPHIL (test code = BAND) 0.0 % 0.0-10.0 N ANISOCYTOSIS (test code = ANISO) 1+ PLATELET ESTIMATE (test code = PLTEST) Adequate THOUSAND ADEQUATE SEGMENTED NEUTROPHILS (test code = SEG) 87.3 % 37-69 H LYMPHOCYTE (test code = LYMPH) 6.4 % 23-55 L MONOCYTE (test code = MON) 2.7 % 0-10 N EOSINOPHIL (test code = EOS) 0.9 % 0.0-4.0 N METAMYELOCYTE (test code = META) 0.9 % 0.0-0.0 H MYELOCYTE (test code = MYELO) 1.8 % 0.0-0.0 H POLYCHROMASIA (test code = POLC) 1+ POIKILOCYTOSIS (test code = POIK) 1+ ECHINOCYTES (test code = ECH) 1+ PLATELET MORPHOLOGY (test code = PLTMORPH) NORMAL COMPREHENSIVE METABOLIC [id number] 06:58:00* Test Item Value Reference Range Interpretation Comme nts SODIUM (test code = NA) 137 mEq/L 134-147 N POTASSIUM (test code = K) 3.5 mEq/L 3.4-5.0 N CHLORIDE (test code = CL) 108 mEq/L 100-108 N CARBON DIOXIDE (test code = CO2) 15 mEq/l 21-33 L ANION GAP (test code = GAP) 17 0-20 N GLUCOSE (test code = GLU) 112 mg/dL 77-141 N NOTE: NEW NORMAL RANGE BLOOD UREA NITROGEN (test code = BUN) 33 mg/dL 7-25 H NOTE: NEW NORM AL RANGE GLOMERULAR FILTRATION RATE (test code = GFR) 16.8 95-105 L The Glomerular Filtration Rate is a calculated parameterbased on serum Creatinine, patient age and sex. GFR valuesless than 60 mL/min/1.73 square meters are indicative ofChronic Kidney Disease. Values less than 15 mL/min/1.73square meters indicate Kidney failure. The calculation forGFR is based on the CKD-EPI (202) calculation. This formulais race indifferent and is the recommended formula for GFRby the National Kidney Foundation for Adults.The GFR will not calculate if the sex is unknown or if thepatient's age is <18 years. CREATININE (test code = CREAT) 3.4 mg/dL 0.6-1.3 H TOTAL PROTEIN (test code = PROT) 6.5 g/dL 6.4-8.2 N ALBUMIN (test code = ALB) 3.60 g/dL 3.4-5.0 N CALCIUM (test code = CA) 6.8 mg/dL 8.0-10.5 L BILIRUBIN TOTAL (test code = BILT) 0.30 mg/dL 0.0-1.0 SGOT/AST (test code = AST) 20 IUnit/L 8-34 N NOTE: NEW NORMAL RANGE SGPT/ALT (test code = ALT) < 7 IUnit/L 10-49 L NOTE: NEW NORMAL RANGE ALKALINE PHOSPHATASE TOTAL (test code = ALKP) 51 IUnit/L 20-125 [id number] 06:58:00* Test Item Value Reference Range Interpretation Comme nts PHOSPHOROUS (test code = PHOS) 4.3 MG/DL 2.5-4.9 N [id number] 06:58:00* Test Item Value Reference Range Interpretation Comme nts MAGNESIUM (test code = MAG) 2.73 mg/dL 1.6-2.6 H NOTE: NEW NORMAL RANGE CALCIUM [id number] 06:58:00* Test Item Value Reference Range Interpretation Comme nts CALCIUM IONIZED (test code = TRAVIS) 0.93 MMOL/L 1.09-1.30 L UR SODIUM [id number] 03:12:00* Test Item Value Reference Range Interpretation Comme nts UR SODIUM RANDOM (test code = OLLIE) 61 MEQ/L The Reference Range and Method Performance specificationshave not been established for this fluid. The test resultshould be correlated into the clinical context forinterpretation. UR PROTEIN/CREATININE [id number] 03:12:00* Test Item Value Reference Range Interpretation Comme nts UR PROTEIN RANDOM (test code = PROTU) 235 mg/dL UR CREATININE RANDOM (test code = CREATU) 65.9 mg/dL The Reference Ra nge and Method Performance specificationshave not been established for this fluid. The test resultshould be correlated into the clinical context forinterpretation. PROTEIN/CREATININE RATIO (test code = P/CRATIO) 3.57 HGB [id number] 21:21:00* Test Item Value Reference Range Interpretation Comme nts HEMOGLOBIN (test code = HGB) 8.3 g/dL 11.0-15.0 L HEMATOCRIT (test code = HCT) 26.0 % 33.0-45.0 L COMPREHENSIVE METABOLIC [id number] 07:12:00* Test Item Value Reference Range Interpretation Comme nts SODIUM (test code = NA) 138 mEq/L 134-147 N POTASSIUM (test code = K) 3.8 mEq/L 3.4-5.0 N CHLORIDE (test code = CL) 110 mEq/L 100-108 H CARBON DIOXIDE (test code = CO2) 17 mEq/l 21-33 L ANION GAP (test code = GAP) 15 0-20 N GLUCOSE (test code = GLU) 115 mg/dL 77-141 N NOTE: NEW NORMAL RANGE BLOOD UREA NITROGEN (test code = BUN) 29 mg/dL 7-25 H NOTE: NEW NORM AL RANGE GLOMERULAR FILTRATION RATE (test code = GFR) 15.2 95-105 L The Glomerular Filtration Rate is a calculated parameterbased on serum Creatinine, patient age and sex. GFR valuesless than 60 mL/min/1.73 square meters are indicative ofChronic Kidney Disease. Values less than 15 mL/min/1.73square meters indicate Kidney failure. The calculation forGFR is based on the CKD-EPI (202) calculation. This formulais race indifferent and is the recommended formula for GFRby the National Kidney Foundation for Adults.The GFR will not calculate if the sex is unknown or if thepatient's age is <18 years. CREATININE (test code = CREAT) 3.7 mg/dL 0.6-1.3 H TOTAL PROTEIN (test code = PROT) 5.9 g/dL 6.4-8.2 L ALBUMIN (test code = ALB) 3.20 g/dL 3.4-5.0 L CALCIUM (test code = CA) 6.8 mg/dL 8.0-10.5 L BILIRUBIN TOTAL (test code = BILT) 0.20 mg/dL 0.0-1.0 N SGOT/AST (test code = AST) 17 IUnit/L 8-34 N NOTE: NEW NORMAL RANGE SGPT/ALT (test code = ALT) < 7 IUnit/L 10-49 L NOTE: NEW NORMAL RANGE ALKALINE PHOSPHATASE TOTAL (test code = ALKP) 33 IUnit/L 20-125 N [id number] 07:12:00* Test Item Value Reference Range Interpretation Comme nts PHOSPHOROUS (test code = PHOS) 4.1 MG/DL 2.5-4.9 N [id number] 07:12:00* Test Item Value Reference Range Interpretation Comme nts MAGNESIUM (test code = MAG) 2.54 mg/dL 1.6-2.6 NOTE: NEW NORMAL RANGE CALCIUM [id number] 07:12:00* Test Item Value Reference Range Interpretation Comme nts CALCIUM IONIZED (test code = TRAVIS) 0.96 MMOL/L 1.09-1.30 L CBC W/AUTO [id number] 06:50:00* Test Item Value Reference Range Interpretation Comme nts WHITE BLOOD CELL (test code = WBC) 13.0 x10 3/uL 4.5-11.0 H RED BLOOD CELL (test code = RBC) 2.09 x10 6/uL 3.54-5.02 L HEMOGLOBIN (test code = HGB) 6.3 g/dL 11.0-15.0 LL Critical result called to TITA Abarca [id number] at 0648 04/23/23Nurse read back resut and tech confirmed it's correct? Y HEMATOCRIT (test code = HCT) 20.4 % 33.0-45.0 L MEAN CELL VOLUME (test code = MCV) 97.6 fL 81.0-99.0 N MEAN CELL HGB (test code = MCH) 30.1 pg 27.0-33.0 N MEAN CELL HGB CONCETRATION (test code = MCHC) 30.9 g/dL 33.0-37.0 L RED CELL DISTRIBUTION WIDTH CV (test code = RDW) 14.3 % 11.5-14.5 N RED CELL DISTRIBUTION WIDTH SD (test code = RDW-SD) 50.4 fL 37.0-54.0 N PLATELET COUNT (test code = PLT) 157 x10 3/uL 150-400 N MEAN PLATELET VOLUME (test code = MPV) 10.0 fL 7.0-9.0 H NEUTROPHIL % (test code = NT%) 79.7 % 56.0-77.0 H IMMATURE GRANULOCYTE % (test code = IG%) 2.9 % 0.0-2.0 H LYMPHOCYTE % (test code = LY%) 9.9 % 14.0-32.0 L MONOCYTE % (test code = MO%) 7.2 % 4.8-9.0 N EOSINOPHIL % (test code = EO%) 0.2 % 0.3-3.7 L BASOPHIL % (test code = BA%) 0.1 % 0.0-2.0 N NUCLEATED RBC % (test code = NRBC%) 0.0 % 0-0 N NEUTROPHIL # (test code = NT#) 10.34 x10 3/uL 2.0-7.6 H IMMATURE GRANULOCYTE # (test code = IG#) 0.37 x10 3/uL 0.00-0.03 H LYMPHOCYTE # (test code = LY#) 1.28 x10 3/uL 1.0-3.8 N MONOCYTE # (test code = MO#) 0.94 x10 3/uL 0.1-0.8 H EOSINOPHIL # (test code = EO#) 0.03 x10 3/uL 0.0-0.2 N BASOPHIL # (test code = BA#) 0.01 x10 3/uL 0.0-0.2 N NUCLEATED RBC # (test code = NRBC#) 0.00 x10 3/uL 0.0-0.1 N UR OSMOLALITY [id number] 17:27:00* Test Item Value Reference Range Interpretation Comme nts UR OSMOLALITY RANDOM (test c ode = OSMOU) 380 MOS/KG 300-1000 N UR SMEAR EOSINOPHIL [id number] 17:27:00* Test Item Value Reference Range Interpretation Comme nts UR SMEAR EOSINOPHIL COUNT (t est code = EOSCTU) NONE SEEN UR SODIUM [id number] 17:27:00* Test Item Value Reference Range Interpretation Comme nts UR SODIUM RANDOM (test code = OLLIE) 74 MEQ/L The Reference Range and Method Performance specificationshave not been established for this fluid. The test resultshould be correlated into the clinical context forinterpretation. UR PROTEIN/CREATININE [id number] 17:27:00* Test Item Value Reference Range Interpretation Comme nts UR PROTEIN RANDOM (test code = PROTU) 217 mg/dL UR CREATININE RANDOM (test code = CREATU) 54.4 mg/dL The Reference Ra nge and Method Performance specificationshave not been established for this fluid. The test resultshould be correlated into the clinical context forinterpretation. PROTEIN/CREATININE RATIO (test code = P/CRATIO) 3.99 UR OSMOLALITY [id number] 17:27:00* Test Item Value Reference Range Interpretation Comme nts UR OSMOLALITY RANDOM (test c ode = OSMOU) 380 MOS/KG 300-1000 UA RFLX MICR CULT IF [id number] 15:17:00* Test Item Value Reference Range Interpretation Comme nts UA COLOR (test code = COLU) STRAW YEL/STRAW UA APPEARANCE (test code = APPU) CLEAR CLEAR UA GLUCOSE DIPSTICK (test co de = DGLUU) 3+ NEGATIVE A UA BILIRUBIN DIPSTICK (test code = BILU) NEGATIVE NEGATIVE UA KETONE DIPSTICK (test cod e = KETU) NEGATIVE NEGATIVE UA SPECIFIC GRAVITY (test co de = SGU) 1.013 1.005-1.030 N UA BLOOD DIPSTICK (test code = RIYA) 1+ NEGATIVE A UA PH DIPSTICK (test code = ISMAEL) 6.0 5.0-7.0 N UA PROTEIN DIPSTICK (test co de = PROU) 2+ NEGATIVE A UA UROBILINIOGEN DIPSTICK (test code = URO) 0.2 mg/dL 0.2-1.0 UA NITRITE DIPSTICK (test co de = HUONG) NEGATIVE NEGATIVE UA LEUKOCYTE ESTERASE DIPSTI CK (test code = LEUU) NEGATIVE NEGATIVE UA WBC (test code = WBCU) 0-3 WBC/HPF 0-3 UA RBC (test code = RBCU) 11-20 RBC/HPF 0-3 UA WBC NO REFLEX (test code = WBCUCL) 0-3 WBC/HPF 0-3 UA BACTERIA (test code = BACU) NONE SEEN /HPF NONE SEEN UA SQUAMOUS CELLS (test code = SQU) 0-5 /HPF NONE SEEN Indication for culture: Dysuria/FrequencySpecimen Description: STRAIGHT CATH CALCIUM [id number] 15:12:00* Test Item Value Reference Range Interpretation Comme nts CALCIUM IONIZED (test code = TRAVIS) 0.99 MMOL/L 1.09-1.30 L - XR CHEST 1 [id number] 12:04:00 [facility] [id number] : 1985 Sex: F FAX: Adilia Rojas APRN [place]: St: [facility] FAX: Shilo Garrett MD [phone] ------ Name: TIMOTHY,[id number] [facility] Greg Bonilla : 1985 Age/S: 38/F [address] [place] [address] Unit #: [id number] Loc:[place] [address] Phys: Adilia Rojas Acct: [id number] Dis Date: Status: ADM IN PHONE #: [phone] Exam Date: 04/22/2023 1113 FAX #: [phone] Reason: Eval pulm process / contusion EXAMS: CPT CODE: [id number] XR CHEST 1 V 18584 EXAM: - XR CHEST 1 V CLINICAL HISTORY: Eval pulm process / contusion TECHNIQUE: Single frontal view. COMPARISON: Chest radiograph from 04/21/2023, multiple priors; chest CT from 04/20/2023 LOCATION: C4 FINDINGS: Lungs are adequately expanded The trachea appears normal. Mediastinal lipomatosis. Bilateral scattered peripheral patchy opacities in themidlung zones. No consolidation. No definite pleural effusions. No pneumothorax. Visualized soft tissues and osseous structures are grossly unremarkable. IMPRESSION: Bilateral scattered patchy opacities likely of infectious/inflammatory in etiology. These correspond to recent CT findings. at 1204 Reported and signed by: Dorota Judge M.D. CC: Adilia Rojas; Shilo Almonte MD Technologist: RT Kristin(R) Trnscrd Date/Time/By: 04/22/2023 (4442) : By: MonicaJJY Lizbeth Print D/T: S: 04/22/2023 (2845) PAGE 1 Signed Report- US RETROPERITONEAL [id number] 09:22:00 [facility] GREG BONILLAName: TIMOTHY [id number] : 1985 Sex: F Name: TRICIA [id number] [facility] [place] : 1985 Age/S: 38 / F [address] [place] [address] Blvd Unit #: [id number] Loc: [place] [address] Phys: Samantha Marks MD Acct: [id number] Dis Date: Status: ADM IN PHONE #: [phone] Exam Date: 04/22/2023707 FAX #: [phone] Reason: Transplant kideny EXAMS: CPT CODE: [id number] [facility] [address] Site ID: [id number] CLINICAL HISTORY: Transplant kidney assessment TECHNIQUE: Realtime montero scale and color doppler imaging ofthe left lower quadrant transplant kidney performed FINDINGS: [place] kidneys are both markedly atrophic. Left lower quadrant transplant kidney appears normal in size and echotexture, measuring 9.6 x 5.7 cm and demonstrates a normal cortical thickness. Arterial and venous flow are maintained, with anormal low resistance renal artery waveform profile and a normal resistive index of 0.68. The renalpelvis is mildly ectatic, no calyceal distention to suggest obstruction. Urinary bladder appears normal. IMPRESSION: Normal renal transplant ultrasound at 0922 Reported and signed by: Valdemar Nicholas M.D. CC: Shilo Almonte MD; Samantha Marks MD Technologist: Marcela Franco Trnscb Date/Time: 04/22/2023 (921) [email or web address] Orig Print D/T: S: 04/22/2023 (39) Probe: PAGE 1 Signed ReportCBC W/AUTO [id number] 08:53:00* Test Item Value Reference Range Interpretation Comme nts WHITE BLOOD CELL (test code = WBC) 15.0 x10 3/uL 4.5-11.0 H RED BLOOD CELL (test code = RBC) 2.48 x10 6/uL 3.54-5.02 L HEMOGLOBIN (test code = HGB) 7.4 g/dL 11.0-15.0 L HEMATOCRIT (test code = HCT) 24.0 % 33.0-45.0 L MEAN CELL VOLUME (test code = MCV) 96.8 fL 81.0-99.0 N MEAN CELL HGB (test code = MCH) 29.8 pg 27.0-33.0 N MEAN CELL HGB CONCETRATION (test code = MCHC) 30.8 g/dL 33.0-37.0 L RED CELL DISTRIBUTION WIDTH CV (test code = RDW) 14.1 % 11.5-14.5 N RED CELL DISTRIBUTION WIDTH SD (test code = RDW-SD) 49.3 fL 37.0-54.0 N PLATELET COUNT (test code = PLT) 163 x10 3/uL 150-400 N MEAN PLATELET VOLUME (test code = MPV) 9.9 fL 7.0-9.0 H NEUTROPHIL % (test code = NT%) 86.7 % 56.0-77.0 H IMMATURE GRANULOCYTE % (test code = IG%) 2.5 % 0.0-2.0 H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 Other/Soft Tissues: Unremarkable. IMPRESSION: 1. No CT evidence of acute intracranial abnormality. at 1955 Reported and signed by: James Garcia M.D. PAGE 1 Signed Report (CONTINUED) Name: TRICIA [id number] [facility] : 1985 Age/S:38 / F [address] [place] [address] Unit #: [id number] Loc: [place] [address] Phys: Shruti Eugene MD Acct: [id number] Dis Date: Status: REG ER PHONE #: [phone] Exam Date: 04/20/20231935 FAX #: [phone] Reason: HEADACHE EXAMS: CPT CODE: [id number] CT HEAD/BRAIN W/O CONT 08576 (Continued) CC: Shruti Eugene MD Technologist:Asia Arellano, RT(R) CTDI: DLP: Trnscb Date/Time: 04/20/2023 (1954) t.[email or web address].[email or web address] Orig Print D/T: S: 04/20/2023 (1957) PAGE 2 Signed Report- XR ANKLE 2 VIEWS [id number] 19:53:00 [facility] GREG BONILLAName: TIMOTHY, [id number] : 1985 Sex: F FAX: Shruti Eugene [place]: St: REG Name: TIMOTHY,[id number] [facility] Greg [facility] : 1985 Age/S: 38/F [address] [place] [address] Unit #: [id number] Loc: [place] [address] Phys: Shruti Eugene MD Acct: [id number] Dis Date: Status: REG ER PHONE #: [phone] Exam Date: 04/20/20231929 FAX #: [phone] Reason: ANKLE PAIN EXAMS: CPT CODE: [id number] XR ANKLE [address] [place] [address] EXAMINATION: - XR ANKLE 2 VIEWS LT INDICATION: ANKLE PAIN COMPARISON: None available at time of dictation LOCATION: H96 FINDINGS/ IMPRESSION: 2 views were obtained. Medial dislocation of talar domerelative to the tibial plafond. Soft tissue swelling and gas. No evidence of fracture or radiopaqueforeign body. at 1952 Reported and signed by: Haroon Valadez M.D. CC: Shruti Eugene MD Technologist: RT Jodie(R) Trnscrd Date/Time/By: 04/20/2023 (1952) : By: [email or web address] Orig Print D/T: S: 04/20/2023 (1956) PAGE 1 Signed Report- XR CHEST 1 [id number] 19:51:00[facility] GREG BONILLAName: TRICIA [id number] : 1985 Sex: F FAX: Shruti Eugene [place]: St: REG Name: TRICIA [id number] [facility] Greg Bonilla : 1985 Age/S: 38/F [address] [place] [address] Unit #: [id number] Loc: [place] [address] Phys: Shruti Eugene MD Acct: [id number] Dis Date: Status: REG ER PHONE #: [phone] Exam Date: 04/20/20231929 FAX #: [phone] Reason: CHEST PAIN EXAMS: CPT CODE: [id number] XR CHEST 1 V 46933 REASONFOR EXAM: CHEST PAIN Exam Order Date: 04/20/2023 6:59 PM Ordering M.D.: Shruti Eugene MD PROCEDURE: - XR CHEST 1 V COMPARISON: None FINDINGS: The lungs are clear. There is no pleural effusion orpneumothorax. Pulmonary vascularity is within normal limits. Cardiomediastinal silhouette is normalin size for technique. The mediastinal contours are within normal limits. Musculoskeletal structures are within normal limits. The visualized upper abdomen is within normal limits. IMPRESSION: No acute cardiopulmonary process. Location: H60 at 1950 Reported and signed by: Sebastian Figueroa M.D. CC: Shruti Eugene MD Technologist: PERRI Feliciano) Trnscrd Date/Time/By: 04/20/2023 (1950) : By: [email or web address] Orig Print D/T: S: 04/20/2023 (1954) PAGE 1 Signed Report- XR TIBIA/FIBULA 2 V [id number] 19:49:00 [facility], [id number] : 1985 Sex: F FAX: Shruti Eugene [place]: St: REG Name: TIMOTHY,[id number] [facility] : 1985 Age/S: 38/F [address] [place] [address] Unit #: [id number] Loc: [place] [address] Phys: Shruti Eugene MD Acct: [id number] Dis Date: Status: REG ER PHONE #: [phone] Exam Date: 04/20/20231929 FAX #: [phone] Reason: LEG PAIN EXAMS: CPT CODE: [id number] XR TIBIA/FIBULA 2 V LT [address]487WXFP TIBIA AND FIBULA 2 VIEWS Dictation location N 13 Clinical history left ankle open fracture TECHNIQUE: AP and lateral views were obtained over 4 cassettes. FINDINGS: The leg is imaged in a splint. There is an acute dislocation of the ankle mortise joint with the talus displaced and angulated me dially. Several bubbles of subcutaneous gas are seen near the ankle joint. There appears to be several centimeter laceration medial aspect of the lower leg oriented transversely. There is a well-corticated 0.8 cm osseous structure projecting lateral to the talus on the AP view not clearly representing a bone fragment from fracture. IMPRESSION: Acute dislocation of the ankle joint. Small well-corticated osseous structure projecting lateral to the talus may represent accessory ossicle versus chipfracture. Recommend follow-up 3 view ankle x-rays following reduction of the dislocation. at 1949 Reported and signed by: Noah Escobedo M.D. CC: Shruti Eugene MD Technologist: DEBORA FelicianoR) Trnscrd Date/Time/By: 04/20/2023 (1948) : By: Amber Orig Print D/T: S: 04/20/2023 (1951) PAGE 1 Signed ReportCOMPREHENSIVE METABOLIC [id number] 19:39:00* Test Item Value Reference Range Interpretation Comme nts SODIUM (test code = NA) 137 mEq/L 134-147 N POTASSIUM (test code = K) 4.4 mEq/L 3.4-5.0 N CHLORIDE (test code = CL) 104 mEq/L 100-108 N CARBON DIOXIDE (test code = CO2) 18 mEq/l 21-33 L ANION GAP (test code = GAP) 20 0-20 N GLUCOSE (test code = GLU) 244 mg/dL 77-141 H NOTE: NEW NORMAL RANGE BLOOD UREA NITROGEN (test code = BUN) 37 mg/dL 7-25 H NOTE: NEW NORM AL RANGE GLOMERULAR FILTRATION RATE (test code = GFR) 14.3 95-105 L The Glomerular Filtration Rate is a calculated parameterbased on serum Creatinine, patient age and sex. GFR valuesless than 60 mL/min/1.73 square meters are indicative ofChronic Kidney Disease. Values less than 15 mL/min/1.73square meters indicate Kidney failure. The calculation forGFR is based on the CKD-EPI (2020) calculation. This formulais race indifferent and is the recommended formula for GFRby the National Kidney Foundation for Adults.The GFR will not calculate if the sex is unknown or if thepatient's age is <18 years. CREATININE (test code = CREAT) 3.9 mg/dL 0.6-1.3 H TOTAL PROTEIN (test code = PROT) 7.1 g/dL 6.4-8.2 N ALBUMIN (test code = ALB) 3.90 g/dL 3.4-5.0 N CALCIUM (test code = CA) 8.8 mg/dL 8.0-10.5 N BILIRUBIN TOTAL (test code = BILT) 0.30 mg/dL 0.0-1.0 N SGOT/AST (test code = AST) 142 IUnit/L 8-34 H NOTE: NEW NORMAL RANGE SGPT/ALT (test code = ALT) 120 IUnit/L 10-49 H NOTE: NEW NORMAL RANGE ALKALINE PHOSPHATASE TOTAL (test code = ALKP) 50 IUnit/L 20-125 N [id number] 19:35:00* Test Item Value Reference Range Interpretation Comme nts ALCOHOL (test code = ALC) < 3.0 mg/dL <10 N Ethyl Alcohol Interpretation: 100 mg/dL - Legally Intoxicated 300-400 mg/dL - Severely Intoxicated >400 mg/dL - Potentially LethalThe pharmacological response to blood alcohol levels mayvary from individual to individual. Signs of intoxicationcan be observed at levels of 50-100 mg/dL. Results are for Medical purposes only, and not for Legal orEmployment evaluation purposes. HCG SERUM [id number] 19:34:00* Test Item Value Reference Range Interpretation Comme nts HCG SERUM QUAL (test code = HCGQL) SERUM NEGATIVE NEGATIVE Transthoracic echo (TTE)2023-02-21 18:19:27* Test Item Value Reference Range Interpretation Comme nts Height (test code = 6109779807) 62 in Weight (test code = 7950573735) 147 lbs Systolic BP (test code = 3688833450) 135 mmHg Diastolic BP (test code = 5500905672) 90 mmHg Heart Rate (test code = 5129642020) 71 bpm BSA (test code = 6142489706) 1.68 m2 LVIDD (test code = 4487232800) 4.50 cm Left Ventricular End Diastolic Volume by Teichholz Method (test code = 1317913) 94.3 mL IVS (test code = 0096964774) 1.12 cm Interventricular Septum Diastolic Thickness by 2D (test code = 6830931) 1.12 cm LVPWD (test code = 5521257997) 1.13 cm PW (test code = 2964295725) 1.13 cm 0.6-1.1 EF(Teich) (test code = 7909578870) 61.90 % LVIDS (test code = 9028131683) 3.00 cm Left Ventricular End Systolic Volume by Teichholz Method (test code = 5713781) 35.9 mL FS (test code = 1802342117) 33 % EF - 2D (test code = 14669735) 61.90 % LVOT diameter (test code = 7599837639) 1.80 cm LVOT area (test code = 0005435225) 2.60 cm2 Ao root diam (test code = 7840759530) 2.47 cm Aortic root (test code = 2710627826) 2.47 cm Ao root annulus (test code = 5660473285) 2.47 cm LA size (test code = 7460895658) 4.0 cm TR Peak Elaine (test code = 5062703453) 206.3 cm/s Triscuspid Valve Regurgitation Peak Gradient (test code = 5834586780) 17.0 mmHg MV Peak E Elaine (test code = 4407997383) 104.5 cm/s MV Peak A Elaine (test code = 3876226891) 112.1 cm/s E/A ratio (test code = 1451895019) 0.93 ratio E wave decelartion time (test code = 9860383790) 0.24 s MV E/e' septal (test code = 5529797698) 6.3 cm/s LVOT stroke volume (test code = 9361778625) 57.50 cm3 LVOT peak elaine (test code = 9017519453) 120.3 cm/s LVOT mn grad (test code = 4500045923) 2.8 mmHg AV LVOT peak gradient (test code = 6775846810) 5.8 mmHg LVOT peak VTI (test code = 2992287598) 22.5 cm LV V1 mean (test code = 5488224953) 78.30 cm/s Aortic valve mean velocity (test code = 0773302846) 121.1 cm/s Ao peak elaine (test code = 3292851626) 182.4 cm/s Ao VTI (test code = 5012275257) 33.3 cm AV area by cont VTI (test code = 4989538751) 1.7 cm2 AV area peak elaine (test code = 6114304795) 1.7 cm2 Ao max PG (test code = 9361674873) 13.30 mm[Hg] AV peak gradient (test code = 0659173856) 13.3 mmHg AV valve area (test code = 5276379705) 1.73 cm2 AV mean gradient (test code = 5721814970) 6.6 mmHg Tapse (test code = 7580502744) 1.67 cm LAV(MOD-sp4) (test code = 5642470684) 40.90 mL LA Volume Index (BP) (test code = 7478482486) 25.1 mL/m2 LA volume (BP) (test code = 1106184018) 42.0 mL LAV(MOD-sp2) (test code = 1079369241) 41.30 mL IVC Diam Exp(MM) (test code = 9607296440) 1.60 cm IVC Diam Ins(MM) (test code = 0824674570) 0.49 cm Radiology Study observation (narrative) (test code = 66129-5) CHINO (test code = CHINO) ?Left?Ventricle: Left ventricle size is normal. Mildly increased wall thickness. Normal wall motion. Normal systolic function with a visually estimated EF of 55 - 60%. Normal diastolic function. ?Right?Ventricle: Right ventricle size is normal. Normal systolic function. ?Left?Atrium: Left atrium size is normal. Left atrium volume index is 25.1 mL/m2. ?Tricuspid?Valve: Trace transvalvular regurgitation. Right ventricular systolic pressure is 15-20 mmHg. ?IVC/SVC: IVC diameter is less than or equal to 21 mm and decreases greater than 50% during inspiration; therefore the estimated right atrial pressure is normal (~0-5 mmHg). Left VentricleLeft ventricle size is normal. Mildly increased wall thickness. Normal wall motion. Normal systolic function with a visually estimated EF of 55 - 60%. Normal diastolic function.Right VentricleRight ventricle size is normal. Normal systolic function.Left AtriumLeft atrium size is normal. Left atrium volume index is 25.1 mL/m2.IVC/SVCIVC diameter is less than or equal to 21 mm and decreases greater than 50% during inspiration; therefore the estimated right atrial pressure is normal (~0-5 mmHg).Mitral ValveMitral valve structure is normal. Trace transvalvular regurgitation. No stenosis.Tricuspid ValveTricuspid valve structure is normal. Trace transvalvular regurgitation. Right ventricular systolic pressure is 15-20 mmHg. No stenosis.Aortic ValveAortic valve opens well. Trace transvalvular regurgitation. No evidence of aortic stenosis.Pulmonic ValveNot well visualized. Trace transvalvular regurgitation. No stenosis.Ascending AortaNormal sized annulus and sinus of Valsalva.PericardiumN o pericardial effusion.Study DetailsA complete echocardiogram was performed using 2D, color flow Doppler and spectral Doppler. [facility] Whole [id number] 21:46:02* Test Item Value Reference Range Interpretation Comme nts LACTIC ACID (test code = 6935741984) 1.55 mmol/L 0.50-2.20 Lab Interpretation (test cod e = 10880-6) Normal [facility] CenterTR[facility] [id number] 15:21:56* Test Item Value Reference Range Interpretation Comme nts TROPONIN I (test code = 8249178981) 0.040 ng/mL <=0.034 H CHINO (test code = CHINO) Reference (Normal) Range (defined by the 99th percentile reference limit): <= 0.034 ng/mL Note: Cardiac troponin begins to rise 3-4 hours after the onset of ischemia. Repeat in 4-6 hours if the sample was drawn within 3-4 hours of the onset of the symptom and found normal. Diagnosis of myocardial injury is made with acute changes in cTn concentrations with at least one serial sample above the 99th percentile upper reference limit (URL), taken together with the patient's clinical presentation. Biotin has been reported to cause a negative bias, interpret results relative to patient's use of biotin. Lab Interpretation (test code = 28094-4) Abnormal [facility] CenterN-TERMINAL [id number] 15:21:56* Test Item Value Reference Range Interpretation Comme [facility] NT-proBNP (test code = 08893-5) 2780 pg/mL <=125 H CHINO (test code = CHINO) Positive: Heart Failure Likely Lab Interpretation (test code = 68469-2) Abnormal [facility] CenterCOMP. METABOLIC PANEL (09323)2023-02-19 15:21:55* Test Item Value Reference Range Interpretation Comme nts NA (test code = 9896772386) 137 mmol/L 135-145 K (test code = 6286339057) 3.9 mmol/L 3.5-5.0 CL (test code = 9688169400) 105 mmol/L 98-108 CO2 TOTAL (test code = 5655668766) 18 mmol/L 23-31 L AGAP (test code = 2447402017) 14 2-16 BUN (test code = 1407655946) 36 mg/dL 7-23 H GLUCOSE (test code = 9966450801) 137 mg/dL 70-110 H CREATININE (test code = 5526738945) 3.63 mg/dL 0.50-1.04 H TOTAL BILI (test code = 7284458557) 0.4 mg/dL 0.1-1.1 CALCIUM (test code = 9789443690) 9.2 mg/dL 8.6-10.6 T PROTEIN (test code = 5330505801) 7.3 g/dL 6.3-8.2 ALBUMIN (test code = 4164151621) 4.3 g/dL 3.5-5.0 ALK PHOS (test code = 3259933182) 78 U/L 34-122 ALTv (test code = 1742-6) 25 U/L 5-35 AST(SGOT) (test code = 3961418489) 19 U/L 13-40 eGFR (test code = 9459717176) 13.9 mL/min/1.73m2 CHINO (test code = CHINO) Association of Glomerular Filtration Rate (GFR) and Staging of Kidney Disease* + --+ --+ ------+| GFR (mL/min/1.73 m2) ?| With Kidney Damage ?| ?Without Kidney Damage+ --------+ --------+ +| ?>90 ?| ?Stage one ?| ? Normal ?+ ---+ ---+ -------+| ?60-89 ?| ?Stage two ?| ? Decreased GFR ? + --+ --+ ------+| ?30-59 ?| ?Stage three ?| ? Stage three ? + --+ --+ ------+| ?15-29 ?| ?Stage four ? | ? Stage four ?+ ---+ ---+ -------+| ?<15 (or dialysis) ? ?| ?Stage five ? | ? Stage five ?+ ---+ ---+ -------+ *Each stage assumes the associated GFR level has been in effect for at least three months. ?Stages 1 to 5, with or without kidney disease, indicate chronic kidney disease. Notes: Determination of stages one and two (with eGFR >59mL/min/1.73 m2) requires estimation of kidney damage for at least three months as defined by structural or functional abnormalities of the kidney, manifested by either:Pathological abnormalities or Markers of kidney damage (including abnormalities in the composition of the blood or urine or abnormalities in imaging tests). Lab Interpretation (test code = 79415-5) Abnormal [facility] CenterTHYROID STIMULATING [id number] 15:21:55 * Test Item Value Reference Range Interpretation Comme nts TSH (test code = 4765072451) 2.11 See_Comment Biotin has been reported to cause a negative bias, interpret results relative to patient's use of biotin. [Automated message] The system which generated this result transmitted reference range: 0.45 - 4.70 mIU/L. The reference range was not used to interpret this result as normal/abnormal. Lab Interpretation (test code = 04958-1) Normal [facility] CenterL[facility] Acid Whole [id number] 14:18:09* Test Item Value Reference Range Interpretation Comme nts LACTIC ACID (test code = 9828942129) 2.41 mmol/L 0.50-2.20 H Lab Interpretation (test cod e = 14449-3) Abnormal [facility] WITH [id number] 14:17:44* Test Item Value Reference Range Interpretation Comme nts WBC (test code = 6690-2) 19.21 See_Comment H [Automated message] The system which generated this result transmitted reference range: 4.30 - 11.10 10*3/?L. The reference range was not used to interpret this result as normal/abnormal. RBC (test code = 789-8) 3.33 See_Comment L [Automated message] The system which generated this result transmitted reference range: 3.93 - 5.25 10*6/?L. The reference range was not used to interpret this result as normal/abnormal. HGB (test code = 718-7) 9.7 g/dL 11.6-15.0 L HCT (test code = 4544-3) 31.0 % 35.7-45.2 L MCV (test code = 787-2) 93.1 fL 80.6-95.5 MCH (test code = 785-6) 29.1 pg 25.9-32.8 MCHC (test code = 786-4) 31.3 g/dL 31.6-35.1 L RDW-SD (test code = 61038-0) 45.0 fL 39.0-49.9 RDW-CV (test code = 788-0) 13.3 % 12.0-15.5 PLT (test code = 777-3) 279 See_Comment [Automated message] The system which generated this result transmitted reference range: 166 - 358 10*3/?L. The reference range was not used to interpret this result as normal/abnormal. MPV (test code = 63808-8) 9.2 fL 9.5-12.9 L NRBC/100 WBC (test code = 4703703806) 0.0 See_Comment [Automated message] The system which generated this result transmitted reference range: 0.0 - 10.0 /100 WBCs. The reference range was not used to interpret this result as normal/abnormal. NRBC x10^3 (test code = 7094964120) See_Comment [Automated message] The system which generated this result transmitted reference range: 10*3/?L. The reference range was not used to interpret this result as normal/abnormal. GRAN MAT (NEUT) % (test code = 770-8) 77.8 % IMM GRAN % (test code = 8886210841) 2.00 % LYMPH % (test code = 736-9) 12.5 % MONO % (test code = 5905-5) 7.4 % EOS % (test code = 713-8) 0.1 % BASO % (test code = 706-2) 0.2 % GRAN MAT x10^3(ANC) (test code = 2149950792) 14.94 10*3/uL 1.88-7.09 H IMM GRAN x10^3 (test code = 6680104257) 0.38 10*3/uL 0.00-0.06 H LYMPH x10^3 (test code = 731-0) 2.41 10*3/uL 1.32-3.29 MONO x10^3 (test code = 742-7) 1.42 10*3/uL 0.33-0.92 H EOS x10^3 (test code = 711-2) 0.03-0.39 L BASO x10^3 (test code = 704-7) 0.04 10*3/uL 0.01-0.07 Lab Interpretation (test code = 81671-6) Abnormal [facility] SARS-COV-2 ANTIGEN (BINAX NOW)2023-02-18 22:37:00* Test Item Value Reference Range Interpretation Comme nts POCT SARS-COV-2 ANTIGEN (test code = 66760-4) Not Detected Not Detected On board controls acceptable with C Line (test code = 3574) Yes CHINO (test code = CHINO) accurate developme nt and interpretation of all internal controls Lab Interpretation (test code = 19046-8) Normal [facility] CenterPOCT [id number] 22:37:00* Test Item Value Reference Range Interpretation Comme nts POCT PREG (test code = 1605) Negative On board controls acceptable with C Line (test code = 3574) Yes POCT PREG LOT # (test code = 3575) POCT PREG TEST DATE (test code = 3576) CHINO (test code = CHINO) accurate developme nt and interpretation of all internal controls Lab Interpretation (test code = 32535-9) Normal [facility] WITHOUT [id number] 14:56:30* Test Item Value Reference Range Interpretation Comme nts WBC (test code = 6690-2) 12.01 See_Comment H [Automated message] The system which generated this result transmitted reference range: 4.30 - 11.10 10*3/?L. The reference range was not used to interpret this result as normal/abnormal. RBC (test code = 789-8) 2.63 See_Comment L [Automated message] The system which generated this result transmitted reference range: 3.93 - 5.25 10*6/?L. The reference range was not used to interpret this result as normal/abnormal. HGB (test code = 718-7) 7.7 g/dL 11.6-15.0 L HCT (test code = 4544-3) 22.3 % 35.7-45.2 L MCH (test code = 785-6) 29.3 pg 25.9-32.8 MCV (test code = 787-2) 84.8 fL 80.6-95.5 MCHC (test code = 786-4) 34.5 g/dL 31.6-35.1 PLT (test code = 777-3) 150 See_Comment L [Automated message] The system which generated this result transmitted reference range: 166 - 358 10*3/?L. The reference range was not used to interpret this result as normal/abnormal. MPV (test code = 46976-8) 10.6 fL 9.5-12.9 RDW-CV (test code = 788-0) 14.1 % 12.0-15.5 RDW-SD (test code = 27219-4) 42.1 fL 39.0-49.9 NRBC x10^3 (test code = 2805879334) See_Comment [Automated messa ge] The system which generated this result transmitted reference range: 10*3/?L. The reference range was not used to interpret this result as normal/abnormal. NRBC/100 WBC (test code = 9545784767) 0.0 See_Comment [Automated messa ge] The system which generated this result transmitted reference range: 0.0 - 10.0 /100 WBCs. The reference range was not used to interpret this result as normal/abnormal. IPF % (test code = 7965430067) Lab Interpretation (test code = 10924-9) Abnormal [facility] Packed RBC (in units), 2 Units 2022-10-08 11:02:03* Test Item Value Reference Range Interpretation Comme [facility] Cross Match Result (test code = 4409) Compatible ISBT Blood Type Code (test code = 514613) 6200 Unit Blood Type (test code = 4410) A Pos Unit Number (test code = 4411) [id number] Blood Expiration Date & Time (test code = 000452) 164584019887 Status Information (test code = 4412) Issued Product Identification (test code = 4413) Red Blood Cells Product Code (test code = 4414) [id number] Performed at [facility] B Laboratory Services - [facility] Blood [address] [address]Oqfi Free: [phone] No. [id number] [facility] Packed RBC (in units), 1 Units 2022-09-09 03:03:04* Test Item Value Reference Range Interpretation Comme nts Cross Match Result (test code = 4409) Compatible ISBT Blood Type Code (test code = 344442) 6200 Unit Blood Type (test code = 4410) A Pos Unit Number (test code = 4411) [id number] Blood Expiration Date & Time (test code = 333985) 274749243925 Status Information (test code = 4412) Issued Product Identification (test code = 4413) Red Blood Cells Product Code (test code = 4414) [id number] Performed at [facility] Blood [place] [id number] Free: [phone] No. [id number] [facility] Packed RBC (in units), 1 Units 2022-09-08 20:29:10* Test Item Value Reference Range Interpretation Comme nts Cross Match Result (test code = 4409) Compatible ISBT Blood Type Code (test code = 116433) 6200 Unit Blood Type (test code = 4410) A Pos Unit Number (test code = 4411) [id number] Blood Expiration Date & Time (test code = 975197) 176062823676 Status Information (test code = 4412) Issued Product Identification (test code = 4413) Red Blood Cells Product Code (test code = 4414) [id number] Performed at [facility] Blood [place] [id number] Free: [phone] No. [id number] [facility] (NA, K, CL, CO2, GLUCOSE, BUN, CREATININE, CA)2022-08-19 11:23:50* Test Item Value Reference Range Interpretation Comme nts NA (test code = 2099316203) 135 mmol/L 135-145 K (test code = 1317531726) 3.1 mmol/L 3.5-5.0 L CL (test code = 7775175291) 112 mmol/L 98-108 H CO2 TOTAL (test code = 0999300803) 12 mmol/L 23-31 L AGAP (test code = 2830111290) 11 2-16 BUN (test code = 6442891554) 33 mg/dL 7-23 H GLUCOSE (test code = 3636080466) 110 mg/dL 70-110 CREATININE (test code = 9301988895) 3.32 mg/dL 0.50-1.04 H CALCIUM (test code = 2933332348) 7.5 mg/dL 8.6-10.6 L eGFR (test code = 4292830046) 15.5 mL/min/1.73m2 CHINO (test code = CHINO) Association of Glomerular Filtration Rate (GFR) and Staging of Kidney Disease* + --+ --+ ------+| GFR (mL/min/1.73 m2) ?| With Kidney Damage ?| ?Without Kidney Damage+ --------+ --------+ +| ?>90 ?| ?Stage one ?| ? Normal ?+ ---+ ---+ -------+| ?60-89 ?| ?Stage two ?| ? Decreased GFR ? + --+ --+ ------+| ?30-59 ?| ?Stage three ?| ? Stage three ? + --+ --+ ------+| ?15-29 ?| ?Stage four ? | ? Stage four ?+ ---+ ---+ -------+| ?<15 (or dialysis) ? ?| ?Stage five ? | ? Stage five ?+ ---+ ---+ -------+ *Each stage assumes the associated GFR level has been in effect for at least three months. ?Stages 1 to 5, with or without kidney disease, indicate chronic kidney disease. Notes: Determination of stages one and two (with eGFR >59mL/min/1.73 m2) requires estimation of kidney damage for at least three months as defined by structural or functional abnormalities of the kidney, manifested by either:Pathological abnormalities or Markers of kidney damage (including abnormalities in the composition of the blood or urine or abnormalities in imaging tests). Lab Interpretation (test code = 28854-0) Abnormal [facility] CenterPHOSPHORUS2023-04-20 11:23:50* Test Item Value Reference Range Interpretation Comme nts PHOSPHORUS (test code = 6725277529) 3.3 mg/dL 2.5-5.0 Lab Interpretation (test cod e = 76923-1) Normal [facility] CenterMAGNESIUM2023-04-20 11:23:50* Test Item Value Reference Range Interpretation Comme nts MAGNESIUM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
[2023-05-24 07:04] LABS: Absolute Lymphocytes (CBC) 5.1 K/uL (0.7-4.9); Hematocrit 27.9 % (36.0-45.0); Lymphocytes % 28.1 % (15.3-44.8); MCV 88.7 fL (80-100); MPV 7.4 fL (7.6-11.3); Platelets 292 thou/uL (152-406); RBC Red Blood Cell Count 3.14 M/uL (3.86-4.86)
[2023-05-24 07:24] LABS: Albumin 3.3 g/dL (3.4-5.0); Bilirubin Total 0.3 mg/dL (0.2-1.0); Potassium 3.8 mEq/L (3.5-5.1); Protein, Total 7.8 g/dL (6.4-8.2)
--- NOTE | 2023-05-24 07:42 | RAD REPORT ---
EXAM DESCRIPTION: CTChest Abd Pelvis Wo Con - 05/24/2023 7:25 am CLINICAL HISTORY: chest and back pain COMPARISON: No comparisons TECHNIQUE: CT of the chest, abdomen, and pelvis was performed. All CT scans are performed using dose optimization technique as appropriate and may include automated exposure control or mA/KV adjustment according to patient size. FINDINGS: Thorax: Chest Wall: No abnormal mass Lungs: No acute abnormality. Pleura: No effusions or pneumothorax. Veronica/Mediastinum: No lymphadenopathy. Aorta/Pulmonary Arteries: Unremarkable Heart: Mild cardiomegaly. Trace coronary artery calcifications in the LAD. Abdomen/Pelvis: Liver: No acute abnormality or suspicious lesions. Biliary: No biliary ductal dilatation. The gallbladder is distended but no pericholecystic inflammato ry changes. Stomach: No significant focal abnormality. Duodenum: No significant focal abnormality. Pancreas: No significant abnormality. Spleen: No significant abnormality. Adrenal: No suspicious lesions. Kidney/ureter: No hydronephrosis. Severely atrophic kidneys bilaterally. Right upper pole renal lesio n which is likely a cyst. Left iliac fossa renal transplant. No hydronephrosis. Retroperitoneum: No retroperitoneal adenopathy. Vascular: No aneurysm. Bowel: No significant focal abnormality. Peritoneum: No ascites or free air. Bladder: Grossly unremarkable. Reproductive: No adnexal masses. Bones: Nondisplaced fracture of the right pubic bone likely extend into the superior pubic ramus. Rig ht sacral fracture which may be an insufficiency fracture. Nondisplaced left L5 transverse process fr acture. Remote appearing rib fractures. No acute displaced rib fracture appreciated. Other: Probable hematoma within the left lower abdominal wall the subcutaneous tissues measuring 9.4 x 4.3 cm. IMPRESSION: 1. Left lower quadrant anterior abdominal wall large superficial hematoma. Evaluation fo r active bleeding limited without IV contrast. 2. Acute nondisplaced anterior pubic bone fracture. No extension to the acetabulum. Right sacral frac ture may be a sacral insufficieny or subacute fracture. Acute left L5 transverse process fracture whi ch is nondisplaced.
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
[2023-05-24 08:29] LABS: Platelet Estimate ADEQ
[2023-05-24 08:30] LABS: Anisocytosis 1+; Blood Morphology Comment NOTED (NOT SEEN)
[2023-05-24 11:09] VITALS: BP 118/68; TEMP 97.9; O2SAT 98
== END ==
LOC: ER 05:54
DX: G89.21 Chronic pain due to trauma (principal); K85.90 Acute pancreatitis without necrosis or infection, unspecified; S22.39XA Fracture of one rib, unspecified side, initial encounter for closed fracture; S22.009A Unspecified fracture of unspecified thoracic vertebra, initial encounter for closed fracture; Z88.8 Allergy status to other drugs, medicaments and biological substances
CPT/HCPCS: 96361; 85025; 36415; 83690; 80053; 71250; 74176; 96375; 96374; 99284; J1720; J2405; J7030

== ENCOUNTER → 2023-05-25 | Emergency (ER) | payer BC ==
--- OUTSIDE RECORDS SUMMARY | 2023-05-25 05:20 | XMS REPORT | Continuity of Care Document ---
Author Name Unknown Address [address] [facility] [address] [place] [address] [facility] thconnect Address [address] [facility] [facility] [address] [place] [address] Care Team Providers Care Team Lead Name Role Phone Pcp, Patient Does Not Have A Primary Care Physic renny CONRAD ABERNATHY Attending Clinician Unavailable HORTENCIA MACEDO Attending Clinician Unavailable HUMPHREY GOLDSTEIN Attending Clinician Unavailable Floyd Gallegos MD Attending Clinician + [phone] Ta Dimas MD Attending Clinician [phone] Pcp-Lab Attending Clinician Unavailable Steve Redd MD Attending Clinician [phone] STEVE REDD Attending Clinician Unavail able LUC MOSER Attending Clinician Unavailable Buck Lewis MD Attending Clinician [phone] Luc Moser MD Attending Clinician [phone] Kadie Hardin Attending Clinician UnavailEVELYN Loomis Attending Clinician Unava BARRIE Hood Attending Clinician UnavailShilo Taylor Attending Clinician Unavailable Edelmira WYMAN, Evelyn Anand Attending Clinician [phone] Adolph WYMAN, Norbert Attending Clinician [phone] Pcp, Patient Does Not Have A Attending Clinician Vtc-Lab Attending Clinician Unavailable Bianka WYMAN, Cristina Garcia Attending Clinician [phone] Michael WYMAN, Humphrey Attending Clinician [phone] Doctor Unassigned, [place] Attending Clinician U liliebth Bourgeois RN, Hoa Attending Clinician Unavailable Crow RIVERS, Mary Byers Attending Clinician + [phone] DIALLO RUVALCABA Attending Clinician Unavailable Lanie WYMAN, Marcel Attending Clinician [phone] Kelly Lim MD Attending Clinician [phone] Ly MORILLO, Diallo Attending Clinician [phone] Ty HORNE, Dequan Attending Clinician +[phone] DEQUAN GHOTRA Attending Clinician Unavailable Unknown, Attending Attending Clinician Unavailab uziel Hilton MD, Jh Oz Attending Clinician [phone] Racheal Sierra MD Attending Clinician Unavailab le Lab, [facility] Cbc Attending Clinician Unavailable Lalit WYMAN, Ronn Hare Attending Clinician [phone] RONN FRANKEL Attending Clinician Unavaila RACHEAL Renner Attending Clinician Unavailable Jose Juan Zepeda MD Attending Clinician [phone] REYMUNDO NOWAK Attending Clinician Unavailable Reymundo Nowak MD Attending Clinician +[phone] Rolo Fuentes MD Attending Clinician + [phone] ROLO FUENTES Attending Clinician Unavailab KELLY Corbett Attending Clinician Unavailab ROBERT Long II Attending Clinician Unav olamide Villaseñor MD, Haroon Attending Clinician [phone] Dina WEEKS MD, Michael James Attending Clinician Louie RIVERS, Cesar Russo Attending Clinician Unavailabl desiree Only, Colleen Uc Test Attending Clinician UnavailNoah De La Paz Attending Clinician [phone] MUÑOZ, MARIA Attending Clinician Unavailable Cristina Foster NP Attending Clinician + [phone] CRISTINA FOSTER Attending Clinician Unavailab TA Mcknight Attending Clinician Unavaila facundo BOONE, Amber Attending Clinician [phone] AMBER HURTADO Attending Clinician Unavailable Therapy, [facility] Attending Clinician Unavailable Db Daily MD Attending Clinician [phone] DB DAILY Attending Clinician Unavailable Only, Fri Cbc Test Attending Clinician Unavailab Chong Bacon DO Attending Clinician [phone] CHONG AZAR Attending Clinician Unavail able UNKNOWN, ATTENDING Attending Clinician Unavailab Belkys Viramontes RN Attending Clinician Unavailable Gabe Dawkins MD Attending Clinician + [phone] Emily Coles Attending Clinician +[phone] [facility] Attending Clinician Unavail able Radiology Attending Clinician Unavailable RADIOLOGY Attending Clinician Unavailable Osmany Zuñiga MD Attending Clinician [phone] OSMANY ZUÑIGA Attending Clinician Unavailable Hoa Pham MA Attending Clinician Unavailelizabeth e [facility] Attending Clinician Unavailable GABE DAWKINS Attending Clinician Unavailab uziel [facility] [phone] JENI LOMBARDI Attending Clinician Unavailable VIRGILIO UNDERWOOD Attending Clinician Unavailable Aure Smith Attending Clinician + [phone] AURE KNIGHT Attending Clinician Unavailabl Rebecca Rodriguez RN Attending Clinician Unavailable Raudel, [facility] Resident Attending Clinician Unavailab Roberta Huitron MD Attending Clinician [phone] May Moore MD Attending Clinician +[phone] Rosaura BOONE, Luanne Attending Clinician +[phone] LUANNE KAPLAN Attending Clinician Unavailable SJ MEDELLIN Attending Clinician Unavailable MONCHO PEÑA Attending Clinician Unavailable Lab, [facility] Attending Clinician Unavailable 1, [facility] Usg Room Attending Clinician Unavaila Sj Beebe Attending Clinician [phone] Doe WYMAN, Meera Byers Attending Clinician +[phone] Rosmery Bartlett Attending Clinician [phone] Blessing WYMAN, Uche Avila Attending Clinician +[phone] Fellow, [facility] Attending Clinician Un available Kirsten WYMAN, Bharathi Maldonado Attending Clinician +[phone] Moncho Peña Attending Clinician [phone] Ernesto WYMAN, Felisa Nails Attending Clinician + [phone] Madalyn WYMAN, Zoë Crabtree Attending Clinician + [phone] Uche Barcenas Attending Clinician +[phone] Boone Jones MD Attending Clinician [phone] Lit WYMAN, Ami Attending Clinician [phone] Visit/Fp, [facility] Nurse Attending Clinician Un available Trimester, [facility] Res-1st Attending Clinician Unavailable BOONE JONES Attending Clinician Unavailable MORRICAL, BUCK O Admitting Clinician Unavaila Darin Ramirez Admitting Clinician Unavailab le Physician, No Primary or Family Admitting Clinic renny Unavailable KELLY LIM Admitting Clinician Unavailab Kelly Corbett MD Admitting Clinician [phone] REYMUNDO NOWAK Admitting Clinician Unavailable Reymundo Nowak MD Admitting Clinician [phone] ROBERT ARROYO II Admitting Clinician Unav olamide Arroyo II, MD, Michael James Admitting Clinician AURE KNIGHT Admitting Clinician UnavailRACHEAL Interiano Admitting Clinician Unavailable Payers Payer Name Policy Type Policy Number Effective Date Expirati on Date Source [facility] [employer] [id number] 2019 00:00:00 [facility] SAMIA IRISH [id number] 2019 00:00:00 2023 00:00:00 Problems Condition Name Condition Details Condition Category Status Onset Date Resolution Date Last Treatment Date Treating Clinician Comments Source Sepsis Sepsis Disease Active 2022-05 0-21 00:00: 00 [facility] Elevated brain natriureti c peptide (BNP) level Elevated brain natriureti c peptide (BNP) level Disease Active 2022-05 0-21 00:00: 00 [facility] Stage 5 chronic kidney disease Stage 5 chronic kidney disease Disease Active 2022-05 0-21 00:00: 00 [facility] Symptomati c anemia Symptomati c anemia Disease Active 6- 00:00: 00 [facility] Metabolic acidosis Metabolic acidosis Disease Active 6 00:00: 00 [facility] Oral candidiasi s Oral candidiasi s Disease Active 10-07 00:00: 00 [facility] SOB (shortness of breath) SOB (shortness of breath) Disease Active 6 00:00: 00 [facility] Hypokalemi a Hypokalemi a Disease Active 4-20 00:00: 00 [facility] Symptomati c anemia Symptomati c anemia Disease Active 4- 00:00: 00 [facility] Fatigue Fatigue Disease Active - 00:00: 00 [facility] Leukocytos is Leukocytos is Disease Active 1- 00:00: 00 [facility] Bacteriuri a Bacteriuri a Disease Active 1- 00:00: 00 [facility] Thrombocyt osis Thrombocyt osis Disease Active 1- 00:00: 00 [facility] Hypocalcem ia Hypocalcem ia Disease Active 1- 00:00: 00 [facility] Hypermagne semia Hypermagne semia Disease Active 1- 00:00: 00 [facility] Elevated liver enzymes Elevated liver enzymes Disease Active 1- 00:00: 00 [facility] COVID-19 COVID-19 Disease Active 00:00: 00 [facility] Stage 4 chronic kidney disease Stage 4 chronic kidney disease Disease Active 05-27 00:00: 00 [facility] Refractive error Refractive error Disease Active 2016-05 00:00: 00 [facility] 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 Disease Active 2016-05 00:00: 00 [facility] Dehydratio n Dehydratio n Disease Active 2015-05 00:00: 00 [facility] 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 ressive medication Disease Active 2015-05 00:00: 00 [facility] Renal transplant recipient Renal transplant recipient Disease Active 2015-05 00:00: 00 [facility] 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 Disease Recurre mae 2015-05 0 00:00: 00 [facility] Senile nuclear sclerosis, bilateral Senile nuclear sclerosis, bilateral Disease Recurre nce 2015-05 0 00:00: 00 [facility] 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) Disease Recurre nce 2015-05 0-11 00:00: 00 [facility] Anemia of chronic renal failure, stage 5 Anemia of chronic renal failure, stage 5 Disease Recurre nce 9 00:00: 00 [facility] Cervical high risk human papillomav irus (HPV) DNA test positive Cervical high risk human papillomav irus (HPV) DNA test positive Disease Active 08-18 00:00: 00 [facility] Atypical squamous cells of undetermin ed significan ce (ASCUS) on Papanicola ou smear of cervix Atypical squamous cells of undetermin ed significan ce (ASCUS) on Papanicola ou smear of cervix Disease Recurre nce 08-18 00:00: 00 [facility] Failed kidney transplant Failed kidney transplant Disease Recurre nce 16 00:00: 00 Overview: Formattin g of this note might be different from the original. 08/14/2008 1st transplan t at [facility] Anxiety Anxiety Disease Recurre [facility] 09-13 00:00: 00 [facility] GERD (gastroeso phageal reflux disease) GERD (gastroeso phageal reflux disease) Disease Active 09-13 00:00: 00 [facility] Essential hypertensi on Essential hypertensi on Disease Recurre [facility] 07-24 00:00: 00 [facility] HTN (hypertens ion) HTN (hypertens ion) Disease Active 07-24 00:00: 00 [facility] Anemia Anemia Disease Active 05-26 00:00: 00 Overview: Formattin g of this note might be different from the original. ICD10 Diagnosis Term Clinical Support Associate Utility [facility] HPV (human papilloma virus) anogenital infection HPV (human papilloma virus) anogenital infection Disease Recurre [facility] Hyperlipid emia Hyperlipid emia Disease Recurre [facility] Allergies, Adverse Reactions, Alerts Allergy Name Allergy Type Status Severity Reaction(s) Onset Date Inactive Date Treating Clinician Comments Source HYDRALAZ INE DRUG INGREDI Active Other-Cmnt 05-14 00:00: 00 [facility] Hydralaz ine Propensi ty to adverse reaction s Active Other - See comments 05-14 00:00: 00 Per Nephrolog ist do not take [facility] Beta-Blo ckers (Beta-Ad renergic Bloc DA Active SV halucinate and affects kidneys according to pt 2022-05 00:00: [address] [facility] hydralaz ine DA Active U COMA 2022-05 00:00: 00 [facility] TI Inhibito rs DA Active SV hallucinate and affects kidney according to pt 2022-05 00:00: 00 [facility] No Known Allergie s DA Active U 2022-05 00:00: 00 [facility] Ti Inhibito rs Propensi ty to adverse reaction s Active Other - See comments 09-02 00:00: 00 Contraind icated with CKD/FSGS [facility] Beta-Blo ckers (Beta-Ad renergic Blocking Agts) Propensi ty to adverse reaction s to drug Active Hallucinatio ns 09-02 00:00: 00 [facility] BETA-BLO CKERS (BETA-AD RENERGIC BLOCKING AGTS) Drug Class Active High Hallucinates 09-02 00:00: 00 [facility] TI INHIBITO RS Drug Class Active Other-Cmnt 09-02 00:00: 00 [facility] Ti Inhibito rs Propensi ty to adverse reaction s Active Other - See comments 09-02 00:00: 00 Contraind icated with CKD/FSGS [facility] Beta-Blo ckers (Beta-Ad renergic Blocking Agts) Propensi ty to adverse reaction s to drug Active Hallucinatio ns 09-02 00:00: 00 [facility] Social History Social Habit Start Date Stop Date Quantity Comments Source History SDOH Social Connections Get Together [facility] History SDOH Social Connections [facility] History SDOH Social Connections Membership [facility] History SDOH Social Connections Meetings [facility] Gender identity Univ [facility] Sexual orientation U [facility] Alcohol intake 2023-05-18 00:00:00 2023-05-18 00:00:00 0 /d [facility] History of Social function 2022-11-11 00:00:00 2022-11-11 00:00:00 [facility] History SDOH Alcohol Frequency 2022-10-08 00:00:00 2022-10-08 00:00:00 1 [facility] History SDOH Social Connections Phone 2022-10-08 00:00:00 2022-10-08 00:00:00 5 [facility] History SDOH Social Connections Living 2022-10-08 00:00:00 2022-10-08 00:00:00 3 [facility] History SDOH Physical Activity DPW 2022-10-08 00:00:00 2022-10-08 00:00:00 0 [facility] History SDOH Physical Activity MPS 2022-10-08 00:00:00 2022-10-08 00:00:00 0 [facility] History SDOH Financial 2022-10-08 00:00:00 2022-10-08 00:00:00 5 [facility] History SDOH Food Worry 2022-10-08 00:00:00 2022-10-08 00:00:00 1 [facility] History SDOH Food Scarcity 2022-10-08 00:00:00 2022-10-08 00:00:00 1 [facility] History SDOH Transport Med 2022-10-08 00:00:00 2022-10-08 00:00:00 2 [facility] History SDOH Housing Unable to Pay 2022-10-08 00:00:00 2022-10-08 00:00:00 2 [facility] History SDOH Housing Places Lived 2022-10-08 00:00:00 2022-10-08 00:00:00 1 [facility] History SDOH Housing Homeless Last Year 2022-10-08 00:00:00 2022-10-08 00:00:00 2 [facility] History SDOH Transport Non-Med 2022-09-09 00:00:00 2022-09-09 00:00:00 2 [facility] Exposure to SARS-CoV-2 (event) 2022-08-29 00:00:00 2022-09-08 15:45:00 Not sure [facility] Tobacco use and exposure 2022-09-08 00:00:00 2022-09-08 00:00:00 Smokeless tobacco non-user [facility] History SDOH Alcohol Std Drinks 2022-05-11 00:00:00 2022-05-11 00:00:00 0 [facility] History SDOH Alcohol Binge 2022-05-11 00:00:00 2022-05-11 00:00:00 1 [facility] Tobacco Comment 2022-02-11 00:00:00 2022-02-11 00:00:00 n/a [facility] Sex Assigned At 1985 00:00:00 1985 00:00:00 [facility] Smoking Status Start Date Stop Date Source Never smoked tobacco [facility] Medications Ordered Medication Name Filled Medication Name Start Date Stop Date Current Medication? Ordering Clinician Indication Dosage Frequency Signature (SIG) Comments Components Source famotidine 20 mg tablet 05-18 00:00: 00 Yes [id number] 20mg Take 1 tablet by mouth in the morning and 1 tablet in the evening. [facility] sennosides- docusate sodium (SENOKOT-S) 8.6-50 mg per tablet 05-18 00:00: 00 Yes [id number] 1{tbl} Take 1 tablet by mouth in the morning. [facility] traMADoL 50 mg tablet 05-18 00:00: 00 Yes [id number] 50mg Take 1 tablet by mouth once daily as needed for Pain (scale 7-10). Indication s: acute pain [facility] famotidine 20 mg tablet 05-18 00:00: 00 Yes [id number] 20mg Take 1 tablet by mouth in the morning and 1 tablet in the evening. [facility] sennosides- docusate sodium (SENOKOT-S) 8.6-50 mg per tablet 05-18 00:00: 00 Yes [id number] 1{tbl} Take 1 tablet by mouth in the morning. [facility] traMADoL 50 mg tablet 05-18 00:00: 00 Yes [id number] 50mg Take 1 tablet by mouth once daily as needed for Pain (scale 7-10). Indication s: acute pain [facility] famotidine 20 mg tablet 05-18 00:00: 00 Yes [id number] 20mg Take 1 tablet by mouth in the morning and 1 tablet in the evening. [facility] sennosides- docusate sodium (SENOKOT-S) 8.6-50 mg per tablet 05-18 00:00: 00 Yes [id number] 1{tbl} Take 1 tablet by mouth in the morning. [facility] traMADoL 50 mg tablet 05-18 00:00: 00 Yes [id number] 50mg Take 1 tablet by mouth once daily as needed for Pain (scale 7-10). Indication s: [facility] mg tablet 05-18 00:00: 00 Yes [id number] 20mg Take 1 tablet by mouth in the morning and 1 tablet in the evening. [facility] sennosides- docusate sodium (SENOKOT-S) 8.6-50 mg per tablet 05-18 00:00: 00 Yes [id number] 1{tbl} Take 1 tablet by mouth in the morning. [facility] tra[facility]AD[facility] mg tablet 05-18 00:00: 00 Yes [id number] 50mg Take 1 tablet by mouth once daily as needed for Pain (scale 7-10). Indication s: acute pain [facility] famotidine 20 mg tablet 05-18 00:00: 00 Yes [id number] 20mg Take 1 tablet by mouth in the morning and 1 tablet in the evening. [facility] sennosides- docusate sodium (SENOKOT-S) 8.6-50 mg per tablet 05-18 00:00: 00 Yes [id number] 1{tbl} Take 1 tablet by mouth in the morning. [facility] traMADoL [facility] mg tablet 05-18 00:00: 00 Yes [id number] 50mg Take 1 tablet by mouth once daily as needed for Pain (scale 7-10). Indication s: acute pain [facility] famotidine 20 mg tablet 05-18 00:00: 00 Yes [id number] 20mg Take 1 tablet by mouth in the morning and 1 tablet in the evening. [facility] sennosides- docusate sodium (SENOKOT-S) 8.6-50 mg per tablet 05-18 00:00: 00 Yes [id number] 1{tbl} Take 1 tablet by mouth in the morning. [facility] traMADoL 50 mg tablet 0 05-18 00:00: 00 Yes [id number] 50mg Take 1 tablet by mouth once daily as needed for Pain (scale 7-10). Indication s: acute pain [facility] famotidine 20 mg tablet 05-18 00:00: 00 Yes [id number] 20mg Take 1 tablet by mouth in the morning and 1 tablet in the evening. [facility] sennosides- docusate sodium (SENOKOT-S) 8.6-50 mg per tablet 05-18 00:00: 00 Yes [id number] 1{tbl} Take 1 tablet by mouth in the morning. [facility] traMADoL 50 mg tablet 05-18 00:00: 00 Yes [id number] 50mg Take 1 tablet by mouth once daily as needed for Pain (scale 7-10). Indication s: acute pain [facility] diphenhydrA MINE (BENADRYL) injection 25 mg 05-14 13:45: 00 05-14 13:38 :00 No 25mg 25 mg, Slow IV Push, ONCE, 1 dose, On 05/14/23 at 0745, [facility] metoclopram deepak HCl (REGLAN) injection 10 mg 05-14 13:45: 00 05-14 13:38 :00 No 10mg 10 mg, Slow IV Push, ONCE, 1 dose, On 05/14/23 at 0745, [facility] FENTanyl PF (SUBLIMAZE (PF)) injection 50 mcg 05-14 12:45: 00 05-14 12:02 :00 No 50ug 50 mcg, Slow IV Push, ONCE, 1 dose, On 05/14/23 at 0645, Routine [facility] ondansetron (ZOFRAN (PF)) injection 4 mg 05-14 12:00: 00 05-14 12:02 :00 No 4mg 4 mg, Slow IV Push, ONCE, 1 dose, On 05/14/23 at 0600, [facility] acetaminoph en-codeine 300-15 mg tablet 05-14 00:00: 00 Yes [id number] 1{tbl} Take 1 tablet by mouth every 8 (eight) hours. Indication s: acute pain [facility] docusate 100 mg capsule 0 05-14 00:00: 00 Yes [id number] 100mg Take 1 capsule by mouth in the morning. [facility] proMETHazin e 12.5 mg tablet 0 05-14 00:00: 00 Yes [id number] 12.5mg Take 1 tablet by mouth every 8 (eight) hours. [facility] acetaminoph en-codeine 300-15 mg tablet 0 05-14 00:00: 00 Yes [id number] 1{tbl} Take 1 tablet by mouth every 8 (eight) hours. Indication s: acute pain [facility] proMETHazin e 12.5 mg tablet 0 13 00:00: 00 Yes [id number] 12.5mg Take 1 tablet by mouth every 8 (eight) hours. [facility] acetaminoph en-codeine 300-15 mg tablet 05-14 00:00: 00 Yes [id number] 1{tbl} Take 1 tablet by mouth every 8 (eight) hours. Indication s: acute pain [facility] proMETHazin e 12.5 mg tablet 0 13 00:00: 00 Yes [id number] 12.5mg Take 1 tablet by mouth every 8 (eight) hours. [facility] acetaminoph en-codeine 300-15 mg tablet 05-14 00:00: 00 Yes [id number] 1{tbl} Take 1 tablet by mouth every 8 (eight) hours. Indication s: acute pain [facility] proMETHazin e 12.5 mg tablet 0 -13 00:00: 00 Yes [id number] 12.5mg Take 1 tablet by mouth every 8 (eight) hours. [facility] acetaminoph en-codeine 300-15 mg tablet 2023-0 -13 00:00: 00 Yes [id number] 1{tbl} Take 1 tablet by mouth every 8 (eight) hours. Indication s: acute pain [facility] proMETHazin e 12.5 mg tablet 2024-0 1-13 00:00: 00 Yes [id number] 12.5mg Take 1 tablet by mouth every 8 (eight) hours. [facility] acetaminoph en-codeine 300-15 mg tablet 2023-0 -13 00:00: 00 Yes [id number] 1{tbl} Take 1 tablet by mouth every 8 (eight) hours. Indication s: acute pain [facility] proMETHazin e 12.5 mg tablet 4-0 -13 00:00: 00 Yes [id number] 12.5mg Take 1 tablet by mouth every 8 (eight) hours. [facility] acetaminoph en-codeine 300-15 mg tablet 4-0 -13 00:00: 00 Yes [id number] 1{tbl} Take 1 tablet by mouth every 8 (eight) hours. Indication s: acute pain [facility] proMETHazin e 12.5 mg tablet 4-0 -13 00:00: 00 Yes [id number] 12.5mg Take 1 tablet by mouth every 8 (eight) hours. [facility] acetaminoph en-codeine 300-15 mg tablet 2023-0 -13 00:00: 00 Yes [id number] 1{tbl} Take 1 tablet by mouth every 8 (eight) hours. Indication s: acute pain [facility] proMETHazin e 12.5 mg tablet 2023-0 -13 00:00: 00 Yes [id number] 12.5mg Take 1 tablet by mouth every 8 (eight) hours. [facility] docusate 100 mg capsule 2023-0 -13 00:00: 00 05-18 00:00 :00 No [id number] 100mg Take 1 capsule by mouth in the morning. [facility] docusate 100 mg capsule 4-0 1-13 00:00: 00 05-18 00:00 :00 No [id number] 100mg Take 1 capsule by mouth in the morning. [facility] docusate 100 mg capsule 4-0 1-13 00:00: 00 05-18 00:00 :00 No [id number] 100mg Take 1 capsule by mouth in the morning. [facility] GUANFACINE ER 2 mg tablet 2022-05 00:00: 00 Yes 2mg TAKE 1 TABLET BY MOUTH EVERY DAY IN THE MORNING [facility] GUANFACINE ER 2 mg tablet 2022-05 00:00: 00 Yes 2mg TAKE 1 TABLET BY MOUTH EVERY DAY IN THE MORNING [facility] GUANFACINE ER 2 mg tablet 2022-05 00:00: 00 Yes 2mg TAKE 1 TABLET BY MOUTH EVERY DAY IN THE MORNING [facility] GUANFACINE ER 2 mg tablet 2022-05 00:00: 00 Yes 2mg TAKE 1 TABLET BY MOUTH EVERY DAY IN THE MORNING [facility] GUANFACINE ER 2 mg tablet 2022-05 00:00: 00 Yes 2mg TAKE 1 TABLET BY MOUTH EVERY DAY IN THE MORNING [facility] GUANFACINE ER 2 mg tablet 2022-05 00:00: 00 Yes 2mg TAKE 1 TABLET BY MOUTH EVERY DAY IN THE MORNING [facility] GUANFACINE ER 2 mg tablet 2022-05 00:00: 00 Yes 2mg TAKE 1 TABLET BY MOUTH EVERY DAY IN THE MORNING [facility] GUANFACINE ER 2 mg tablet 2022-05 00:00: 00 Yes 2mg TAKE 1 TABLET BY MOUTH EVERY DAY IN THE MORNING [facility] GUANFACINE ER 2 mg tablet 2022-05 00:00: 00 Yes 2mg TAKE 1 TABLET BY MOUTH EVERY DAY IN THE MORNING [facility] GUANFACINE ER 2 mg tablet 2022-05 00:00: 00 Yes 2mg TAKE 1 TABLET BY MOUTH EVERY DAY IN THE MORNING [facility] GUANFACINE ER 2 mg tablet 2022-05 00:00: 00 Yes 2mg TAKE 1 TABLET BY MOUTH EVERY DAY IN THE MORNING [facility] guanFACINE ER 2 mg tablet 2022-05 00:00: 00 Yes 2mg Take 1 tablet by mouth in the morning. [facility] guanFACINE ER 2 mg tablet 2022-05 00:00: 00 Yes 2mg Take 1 tablet by mouth in the morning. [facility] sodium bicarbonate 650 mg tablet 2022-05 00:00: 00 Yes [id number] 1300mg Take 2 tablets by mouth in the morning and 2 tablets at noon and 2 tablets in the evening. [facility] guanFACINE ER 2 mg tablet 2022-05 00:00: 00 Yes 2mg Take 1 tablet by mouth in the morning. [facility] sodium bicarbonate 650 mg tablet 2022-05 00:00: 00 Yes [id number] 1300mg Take 2 tablets by mouth in the morning and 2 tablets at noon and 2 tablets in the evening. [facility] guanFACINE ER 2 mg tablet 2022-05 00:00: 00 Yes 2mg Take 1 tablet by mouth in the morning. [facility] sodium bicarbonate 650 mg tablet 2022-05 00:00: 00 Yes [id number] 1300mg Take 2 tablets by mouth in the morning and 2 tablets at noon and 2 tablets in the evening. [facility] sodium bicarbonate 650 mg tablet 2022-05 00:00: 00 Yes [id number] 1300mg Take 2 tablets by mouth in the morning and 2 tablets at noon and 2 tablets in the evening. [facility] sodium bicarbonate 650 mg tablet 2022-05 00:00: 00 Yes [id number] 1300mg Take 2 tablets by mouth in the morning and 2 tablets at noon and 2 tablets in the evening. [facility] sodium bicarbonate 650 mg tablet 2022-05 00:00: 00 Yes [id number] 1300mg Take 2 tablets by mouth in the morning and 2 tablets at noon and 2 tablets in the evening. [facility] sodium bicarbonate 650 mg tablet 2022-05 00:00: 00 Yes [id number] 1300mg Take 2 tablets by mouth in the morning and 2 tablets at noon and 2 tablets in the evening. [facility] sodium bicarbonate 650 mg tablet 2022-05 00:00: 00 Yes [id number] 1300mg Take 2 tablets by mouth in the morning and 2 tablets at noon and 2 tablets in the evening. [facility] sodium bicarbonate 650 mg tablet 2022-05 00:00: 00 Yes [id number] 1300mg Take 2 tablets by mouth in the morning and 2 tablets at noon and 2 tablets in the evening. [facility] sodium bicarbonate 650 mg tablet 2022-05 00:00: 00 Yes [id number] 1300mg Take 2 tablets by mouth in the morning and 2 tablets at noon and 2 tablets in the evening. [facility] sodium bicarbonate 650 mg tablet 2022-05 00:00: 00 Yes [id number] 1300mg Take 2 tablets by mouth in the morning and 2 tablets at noon and 2 tablets in the evening. [facility] sodium bicarbonate 650 mg tablet 2022-05 00:00: 00 Yes [id number] 1300mg Take 2 tablets by mouth in the morning and 2 tablets at noon and 2 tablets in the evening. [facility] sodium bicarbonate 650 mg tablet 2022-05 00:00: 00 Yes [id number] 1300mg Take 2 tablets by mouth in the morning and 2 tablets at noon and 2 tablets in the evening. [facility] sodium bicarbonate 650 mg tablet 2022-05 00:00: 00 Yes [id number] 1300mg Take 2 tablets by mouth in the morning and 2 tablets at noon and 2 tablets in the evening. [facility] sodium bicarbonate 650 mg tablet 2022-05 00:00: 00 Yes [id number] 1300mg Take 2 tablets by mouth in the morning and 2 tablets at noon and 2 tablets in the evening. [facility] guanFACINE ER 2 mg tablet 2022-05 00:00: 00 04-21 00:00 :00 No 2mg Take 1 tablet by mouth in the morning. [facility] fluticasone propionate 50 mcg/actuati on nasal spray 2022-05 00:00: 00 Yes [id number] 2{spray } Use 2 Sprays in each nostril in the morning and 2 Sprays in the evening. [facility] fluticasone propionate 50 mcg/actuati on nasal spray 2022-05 00:00: 00 Yes [id number] 2{spray } Use 2 Sprays in each nostril in the morning and 2 Sprays in the evening. [facility] fluticasone propionate 50 mcg/actuati on nasal spray 2022-05 00:00: 00 Yes [id number] 2{spray } Use 2 Sprays in each nostril in the morning and 2 Sprays in the evening. [facility] fluticasone propionate 50 mcg/actuati on nasal spray 2022-05 00:00: 00 Yes [id number] 2{spray } Use 2 Sprays in each nostril in the morning and 2 Sprays in the evening. [facility] fluticasone propionate 50 mcg/actuati on nasal spray 2022-05 00:00: 00 Yes [id number] 2{spray } Use 2 Sprays in each nostril in the morning and 2 Sprays in the evening. [facility] fluticasone propionate 50 mcg/actuati on nasal spray 2022-05 00:00: 00 Yes [id number] 2{spray } Use 2 Sprays in each nostril in the morning and 2 Sprays in the evening. [facility] fluticasone propionate 50 mcg/actuati on nasal spray 2022-05 00:00: 00 Yes [id number] 2{spray } Use 2 Sprays in each nostril in the morning and 2 Sprays in the evening. [facility] fluticasone propionate 50 mcg/actuati on nasal spray 2022-05 00:00: 00 Yes [id number] 2{spray } Use 2 Sprays in each nostril in the morning and 2 Sprays in the evening. [facility] fluticasone propionate 50 mcg/actuati on nasal spray 2022-05 00:00: 00 Yes [id number] 2{spray } Use 2 Sprays in each nostril in the morning and 2 Sprays in the evening. [facility] fluticasone propionate 50 mcg/actuati on nasal spray 2022-05 00:00: 00 Yes [id number] 2{spray } Use 2 Sprays in each nostril in the morning and 2 Sprays in the evening. [facility] fluticasone propionate 50 mcg/actuati on nasal spray 2022-05 00:00: 00 Yes [id number] 2{spray } Use 2 Sprays in each nostril in the morning and 2 Sprays in the evening. [facility] fluticasone propionate 50 mcg/actuati on nasal spray 2022-05 00:00: 00 Yes [id number] 2{spray } Use 2 Sprays in each nostril in the morning and 2 Sprays in the evening. [facility] fluticasone propionate 50 mcg/actuati on nasal spray 2022-05 00:00: 00 Yes [id number] 2{spray } Use 2 Sprays in each nostril in the morning and 2 Sprays in the evening. [facility] fluticasone propionate 50 mcg/actuati on nasal spray 2022-05 00:00: 00 Yes [id number] 2{spray } Use 2 Sprays in each nostril in the morning and 2 Sprays in the evening. [facility] fluticasone propionate 50 mcg/actuati on nasal spray 2022-05 00:00: 00 Yes [id number] 2{spray } Use 2 Sprays in each nostril in the morning and 2 Sprays in the evening. [facility] fluticasone propionate 50 mcg/actuati on nasal spray 2022-05 00:00: 00 Yes [id number] 2{spray } Use 2 Sprays in each nostril in the morning and 2 Sprays in the evening. [facility] fluticasone propionate 50 mcg/actuati on nasal spray 2022-05 00:00: 00 Yes [id number] 2{spray } Use 2 Sprays in each nostril in the morning and 2 Sprays in the evening. [facility] fluticasone propionate 50 mcg/actuati on nasal spray 2022-05 00:00: 00 Yes [id number] 2{spray } Use 2 Sprays in each nostril in the morning and 2 Sprays in the evening. [facility] fluticasone propionate 50 mcg/actuati on nasal spray 2022-05 00:00: 00 Yes [id number] 2{spray } Use 2 Sprays in each nostril in the morning and 2 Sprays in the evening. [facility] fluticasone propionate 50 mcg/actuati on nasal spray 2022-05 00:00: 00 Yes [id number] 2{spray } Use 2 Sprays in each nostril in the morning and 2 Sprays in the evening. [facility] fluticasone propionate 50 mcg/actuati on nasal spray 2022-05 00:00: 00 Yes [id number] 2{spray } Use 2 Sprays in each nostril in the morning and 2 Sprays in the evening. [facility] fluticasone propionate 50 mcg/actuati on nasal spray 2022-05 00:00: 00 03-04 00:00 :00 No [id number] 2{spray } Use 2 Sprays in each nostril in the morning and 2 Sprays in the evening. [facility] sodium bicarbonate 650 mg tablet 2022-05 00:00: 00 Yes [id number] 1300mg Take 2 tablets by mouth in the morning and 2 tablets in the evening. [facility] sodium bicarbonate 650 mg tablet 2022-05 00:00: 00 Yes [id number] 1300mg Take 2 tablets by mouth in the morning and 2 tablets in the evening. [facility] sodium bicarbonate 650 mg tablet 2022-05 00:00: 00 Yes [id number] 1300mg Take 2 tablets by mouth in the morning and 2 tablets in the evening. [facility] sodium bicarbonate 650 mg tablet 2022-05 00:00: 00 Yes [id number] 1300mg Take 2 tablets by mouth in the morning and 2 tablets in the evening. [facility] sodium bicarbonate 650 mg tablet 2022-05 00:00: 00 Yes [id number] 1300mg Take 2 tablets by mouth in the morning and 2 tablets in the evening. [facility] sodium bicarbonate 650 mg tablet 2022-05 0 00:00: 00 Yes [id number] 1300mg Take 2 tablets by mouth in the morning and 2 tablets in the evening. [facility] sodium bicarbonate 650 mg tablet 2022-05 0 00:00: 00 Yes [id number] 1300mg Take 2 tablets by mouth in the morning and 2 tablets in the evening. [facility] sodium bicarbonate 650 mg tablet 2022-05 0 00:00: 00 Yes [id number] 1300mg Take 2 tablets by mouth in the morning and 2 tablets in the evening. [facility] sodium bicarbonate 650 mg tablet 2022-05 0 00:00: 00 Yes [id number] 1300mg Take 2 tablets by mouth in the morning and 2 tablets in the evening. [facility] sodium bicarbonate 650 mg tablet 2022-05 00:00: 00 Yes [id number] 1300mg Take 2 tablets by mouth in the morning and 2 tablets in the evening. [facility] sodium bicarbonate 650 mg tablet 2022-05 00:00: 00 Yes [id number] 1300mg Take 2 tablets by mouth in the morning and 2 tablets in the evening. [facility] sodium bicarbonate 650 mg tablet 2022-05 0 00:00: 00 Yes [id number] 1300mg Take 2 tablets by mouth in the morning and 2 tablets in the evening. [facility] sodium bicarbonate 650 mg tablet 2022-05 00:00: 00 03-28 00:00 :00 No [id number] 1300mg Take 2 tablets by mouth in the morning and 2 tablets in the evening. [facility] sodium bicarbonate 650 mg tablet 2022-05 0 00:00: 00 03-28 00:00 :00 No [id number] 1300mg Take 2 tablets by mouth in the morning and 2 tablets in the evening. [facility] aspirin 81 mg EC tablet 2022-05 0 00:00: 00 Yes 81mg Take 1 tablet by mouth in the morning. [facility] aspirin 81 mg EC tablet 2022-05 0 00:00: 00 Yes 81mg Take 1 tablet by mouth in the morning. [facility] aspirin 81 mg EC tablet 2022- 0-30 00:00: 00 Yes 81mg Take 1 tablet by mouth in the morning. [facility] aspirin 81 mg EC tablet 2022-05 0-30 00:00: 00 Yes 81mg Take 1 tablet by mouth in the morning. [facility] aspirin 81 mg EC tablet 2022-05 0-30 00:00: 00 Yes 81mg Take 1 tablet by mouth in the morning. [facility]-1 0-30 00:00: 00 Yes 81mg Take 1 tablet by mouth in the morning. [facility] aspirin 81 mg EC tablet 2022- 0-30 00:00: 00 Yes 81mg Take 1 tablet by mouth in the morning. [facility] aspirin 81 mg EC tablet 2022- 0-30 00:00: 00 Yes 81mg Take 1 tablet by mouth in the morning. [facility] aspirin 81 mg EC tablet 2022- 0-30 00:00: 00 Yes 81mg Take 1 tablet by mouth in the morning. [facility] aspirin 81 mg EC tablet 2022- 0-30 00:00: 00 Yes 81mg Take 1 tablet by mouth in the morning. [facility] aspirin 81 mg EC tablet 2022-05 0-30 00:00: 00 Yes 81mg Take 1 tablet by mouth in the morning. [facility] aspirin 81 mg EC tablet 2022- 0-30 00:00: 00 Yes 81mg Take 1 tablet by mouth in the morning. [facility] aspirin 81 mg EC tablet 2022-1 0-30 00:00: 00 Yes 81mg Take 1 tablet by mouth in the morning. [facility] aspirin 81 mg EC tablet 2022-1 0-30 00:00: 00 Yes 81mg Take 1 tablet by mouth in the morning. [facility] aspirin 81 mg EC tablet 2022-1 0-30 00:00: 00 Yes 81mg Take 1 tablet by mouth in the morning. [facility] aspirin 81 mg EC tablet 2022-1 0-30 00:00: 00 Yes 81mg Take 1 tablet by mouth in the morning. [facility] aspirin 81 mg EC tablet 2022-05 0-30 00:00: 00 Yes 81mg Take 1 tablet by mouth in the morning. [facility] 2022-05 0-30 00:00: 00 Yes 81mg Take 1 tablet by mouth in the morning. [facility] 2022- 0-30 00:00: 00 Yes 81mg Take 1 tablet by mouth in the morning. [facility] 2022-05 0-30 00:00: 00 Yes 81mg Take 1 tablet by mouth in the morning. [facility] aspirin 81 mg EC tablet 2022-05 0-30 00:00: 00 Yes 81mg Take 1 tablet by mouth in the morning. [facility] aspirin 81 mg EC tablet 2022-05 0-30 00:00: 00 Yes 81mg Take 1 tablet by mouth in the morning. [facility] aspirin 81 mg EC tablet 2022-05 0-30 00:00: 00 Yes 81mg Take 1 tablet by mouth in the morning. [facility] aspirin 81 mg EC tablet 2022-05 030 00:00: 00 Yes 81mg Take 1 tablet by mouth in the morning. [facility] aspirin 81 mg EC tablet 2022-05 0-30 00:00: 00 Yes 81mg Take 1 tablet by mouth in the morning. [facility] aspirin 81 mg EC tablet 2022- 0-30 00:00: 00 Yes 81mg Take 1 tablet by mouth in the morning. [facility] aspirin 81 mg EC tablet 2022- 0-30 00:00: 00 Yes 81mg Take 1 tablet by mouth in the morning. [facility] aspirin 81 mg EC tablet 1 0-30 00:00: 00 Yes 81mg Take 1 tablet by mouth in the morning. [facility] aspirin 81 mg EC tablet 2022- 0-30 00:00: 00 Yes 81mg Take 1 tablet by mouth in the morning. [facility] aspirin 81 mg EC tablet 2022-1 0-30 00:00: 00 Yes 81mg Take 1 tablet by mouth in the morning. [facility] aspirin 81 mg EC tablet 2022-05 00:00: 00 Yes 81mg Take 1 tablet by mouth in the morning. [facility] aspirin 81 mg EC tablet 2022-05 00:00: 00 Yes 81mg Take 1 tablet by mouth in the morning. [facility] mycophenola te sodium (MYFORTIC) EC tablet 720 mg 2022-05 14:00: 00 Yes 720mg 720 mg, Oral, QAM, First dose (after last modificati on) on 02/21/23 at 0900, Until Discontinu ed, Routine
managing member approving Restricted medication : MAURICE LIM [facility] aspirin 81 mg Cap 2022-05 11:37: 03 02-21 00:00 :00 No Take by mouth. [facility] hydrOXYzine (ATARAX) tablet 25 mg 2022-05 03:18: 00 02-21 03:59 :00 No 25mg 25 mg, Oral, ONCE, 1 dose, On 02/20/23 at 2230, Routine [facility] fluconazole 100 mg tablet 2022-05 00:00: 00 Yes [id number] 100mg Take 1 tablet by mouth in the morning. [facility] fluconazole 100 mg tablet 2022-05 00:00: 00 Yes [id number] 100mg Take 1 tablet by mouth in the morning. [facility] fluconazole 100 mg tablet 2022-05 00:00: 00 Yes [id number] 100mg Take 1 tablet by mouth in the morning. [facility] fluconazole 100 mg tablet 2022-05 00:00: 00 Yes [id number] 100mg Take 1 tablet by mouth in the morning. [facility] cefdinir 300 mg capsule 2022-05 00:00: 00 03-04 04:59 :00 No [id number] 300mg Take 1 capsule by mouth every 12 (twelve) hours for 10 days. [facility] cefdinir 300 mg capsule 2023-1 0-23 00:00: 00 03-04 04:59 :00 No [id number] 300mg Take 1 capsule by mouth every 12 (twelve) hours for 10 days. [facility] cefdinir 300 mg capsule 2022-05 0-23 00:00: 00 03-04 04:59 :00 No [id number] 300mg Take 1 capsule by mouth every 12 (twelve) hours for 10 days. [facility] cefdinir 300 mg capsule 2022-05 0-23 00:00: 00 03-04 04:59 :00 No [id number] 300mg Take 1 capsule by mouth every 12 (twelve) hours for 10 days. [facility] cefdinir 300 mg capsule 2022-05 0- 00:00: 00 03-04 04:59 :00 No [id number] 300mg Take 1 capsule by mouth every 12 (twelve) hours for 10 days. [facility] cefdinir 300 mg capsule 2022-05 0 00:00: 00 03-04 04:59 :00 No [id number] 300mg Take 1 capsule by mouth every 12 (twelve) hours for 10 days. [facility] cefdinir 300 mg capsule 2022-05 0 00:00: 00 03-04 04:59 :00 No [id number] 300mg Take 1 capsule by mouth every 12 (twelve) hours for 10 days. [facility] cefdinir 300 mg capsule 2022-05 0-23 00:00: 00 03-04 04:59 :00 No [id number] 300mg Take 1 capsule by mouth every 12 (twelve) hours for 10 days. [facility] cefdinir 300 mg capsule 2022- 0-23 00:00: 00 03-04 04:59 :00 No [id number] 300mg Take 1 capsule by mouth every 12 (twelve) hours for 10 days. [facility] cefdinir 300 mg capsule 2022- 0-23 00:00: 00 03-04 04:59 :00 No [id number] 300mg Take 1 capsule by mouth every 12 (twelve) hours for 10 days. [facility] cefdinir 300 mg capsule 2022- 0-23 00:00: 00 03-04 04:59 :00 No [id number] 300mg Take 1 capsule by mouth every 12 (twelve) hours for 10 days. [facility] cefdinir 300 mg capsule 2022-05 0-23 00:00: 00 03-04 04:59 :00 No [id number] 300mg Take 1 capsule by mouth every 12 (twelve) hours for 10 days. [facility] cefdinir 300 mg capsule 2022-05 0- 00:00: 00 03-04 04:59 :00 No [id number] 300mg Take 1 capsule by mouth every 12 (twelve) hours for 10 days. [facility] cefdinir 300 mg capsule 2022-05 0- 00:00: 00 03-04 04:59 :00 No [id number] 300mg Take 1 capsule by mouth every 12 (twelve) hours for 10 days. [facility] fluconazole 100 mg tablet 2022-05 0 00:00: 00 02-28 00:00 :00 No [id number] 100mg Take 1 tablet by mouth in the morning. [facility] fluconazole 100 mg tablet 2022-05 0- 00:00: 00 02-28 00:00 :00 No [id number] 100mg Take 1 tablet by mouth in the morning. [facility] fluconazole 100 mg tablet 2022-05 0- 00:00: 00 02-28 00:00 :00 No [id number] 100mg Take 1 tablet by mouth in the morning. [facility] fluconazole 100 mg tablet 2022-05 0 00:00: 00 02-28 00:00 :00 No [id number] 100mg Take 1 tablet by mouth in the morning. [facility] mycophenola te sodium (MYFORTIC) EC tablet 360 mg 2022-05 0 22:00: 00 Yes 360mg 360 mg, Oral, QPM, First dose on 02/20/23 at 1700, Until Discontinu ed, Routine
managing member approving Restricted medication : MAURICE LIM [facility] cefTRIAXone (ROCEPHIN) 1,000 mg in NaCl 0.9% (NS) 100 mL MINI-BAG 2022-05 16:00: 00 02-25 15:59 :00 No 1000mg 1,000 mg, IV Piggyback, Q24H ABX, 5 doses, First dose (after last modificati on) on 02/20/23 at 1100, Last dose on [place] 02/24/23 at 1100, Administer over 30 Minutes, 100 mL
Reas on for Anti-Infec tive: Documented Infection< br>Documen josué Infection Site: Urine
D uration of Therapy: 7 days [facility] famotidine (PEPCID AC) tablet 20 mg 2022-05 14:00: 00 Yes 20mg 20 mg, Oral, DAILY, First dose on [place] 02/20/23 at 0900, Until Discontinu ed [facility] predniSONE (DELTASONE) tablet 10 mg 2022-05 14:00: 00 Yes 10mg 10 mg, Oral, DAILY, First dose on [place] 02/20/23 at 0900, Until Discontinu ed, Routine [facility] guanFACINE (TENEX) tablet 2 mg 2022-05 03:30: 00 Yes 2mg 2 mg, Oral, QHS, First dose on [facility] 02/19/23 at 2230, Until Discontinu ed, Routine [facility] pravastatin (PRAVACHOL) tablet 20 mg 2022-05 02:00: 00 Yes 20mg 20 mg, Oral, QHS, First dose on [facility] 02/19/23 at 2100, Until Discontinu ed, Routine [facility] albuterol (PROVENTIL) 2.5 mg /3 mL (0.083 %) nebulizer solution 2.5 mg 2022-05 01:27: 14 Yes 2.5mg 2.5 mg, Inhalation , Q4HPRN, Starting on 02/19/23 at 2027, Until Discontinu ed, Routine, Shortness of Breath, Wheezing [facility] sodium bicarbonate (ANTACID (SODIUM BICARBONATE )) tablet 650 mg 2022-05 01:00: 00 Yes 650mg 650 mg, Oral, BID, First dose on 02/19/23 at 1999, Until Discontinu ed, Routine [facility] diltiazem XR (DILT-XR) capsule 240 mg 2022-05 01:00: 00 Yes 240mg 240 mg, Oral, BID, First dose on 02/19/23 at 1999, Until Discontinu ed, Routine [facility] mycophenola te sodium (MYFORTIC) EC tablet 360 mg 2022-05 01:00: 00 02-20 13:47 :22 No 360mg 360 mg, Oral, Q12H, First dose on 02/19/23 at 1999, Until Discontinu ed, Routine
managing member approving Restricted medication : MAURICE LIM [facility] acetaminoph en (TYLENOL) tablet 650 mg 2022-05 00:40: 01 Yes 650mg 650 mg, Oral, Q6HPRN, Starting on 02/19/23 at 1940, Until Discontinu ed, [place], Pain (scale 4-6) [facility] norgestimat e-ethinyl estradioL (SPINTEC (28)) 0.25-35 mg-mcg per tablet 1 tablet 2022-05 20:30: 00 Yes 1{tbl} 1 tablet, Oral, DAILY, First dose on 02/19/23 at 1530, Until Discontinu ed, Routine
managing member approving Restricted medication : MAURICE LIM [facility] morpHINE (4 mg/mL) injection 4 mg 2022-05 16:45: 00 02-19 18:22 :00 No 4mg 4 mg, Slow IV Push, ONCE, 1 dose, On 02/19/23 at 1145, STAT [facility] aspirin 81 mg Cap 2022-05 15:45: 34 Yes Take by mouth. [facility] vancomycin (VANCOCIN) 1,000 mg in NaCl 0.9% [...] Urine
D uration of Therapy: 7 days [facility] cefTRIAXone (ROCEPHIN) 1,000 mg in NaCl 0.9% (NS) 100 mL MINI-BAG 2022-05 14:45: 00 02-19 16:34 :00 No 1000mg 1,000 mg, IV Piggyback, ONCE, 1 dose, On 02/19/23 at 0945, Administer over 30 Minutes, 100 mL
Reas on for Anti-Infec tive: Documented Infection< br>Documen josué Infection Site: Other
O ther site: sepsis
Duration of Therapy: 7 days [facility] ondansetron (ZOFRAN (PF)) injection 4 mg 2022-05 13:15: 00 02-19 14:02 :00 No 4mg 4 mg, Slow IV Push, ONCE, 1 dose, On 02/19/23 at 0815, [facility] acetaminoph en (TYLENOL) tablet 650 mg 2022-05 13:15: 00 02-19 13:15 :00 No 650mg 650 mg, Oral, ONCE, 1 dose, On 02/19/23 at 0815, [facility] NaCl 0.9% (NS) bolus infusion 1,000 mL 2022-05 13:15: 00 02-19 17:02 :00 No 1000mL at 999 mL/hr, 1,000 mL, IV Infusion, ONCE, 1 dose, On 02/19/23 at 0815, [facility] albuterol 90 mcg/actuati on inhaler 2022-05 0 00:00: 00 Yes [id number] 2{puff} Inhale 2 Puffs every 6 (six) hours as needed for Wheezing or Shortness of Breath. [facility] albuterol 90 mcg/actuati on inhaler 2022-05 0 00:00: 00 Yes [id number] 2{puff} Inhale 2 Puffs every 6 (six) hours as needed for Wheezing or Shortness of Breath. [facility] benzonatate (TESSALON PERLES) 100 mg capsule 2022-05 00:00: 00 03-01 04:59 :00 No [id number] 100mg Take 1 capsule by mouth every 8 (eight) hours as needed for Cough for up to 10 days. [facility] benzonatate (TESSALON PERLES) 100 mg capsule 2022-05 00:00: 00 03-01 04:59 :00 No [id number] 100mg Take 1 capsule by mouth every 8 (eight) hours as needed for Cough for up to 10 days. [facility] ciprofloxac in-dexameth asone 0.3-0.1 % otic drops 2022-05 00:00: 00 02-26 04:59 :00 No [id number] 4[drp] Place 4 Drops in left ear in the morning and 4 Drops in the evening. Do all this for 7 days. [facility] ciprofloxac in-dexameth asone 0.3-0.1 % otic drops 2022-05 00:00: 00 02-26 04:59 :00 No [id number] 4[drp] Place 4 Drops in left ear in the morning and 4 Drops in the evening. Do all this for 7 days. [facility] doxycycline hyclate 100 mg tablet 2022-05 00:00: 00 02-24 04:59 :00 No [id number] 100mg Take 1 tablet by mouth in the morning and 1 tablet in the evening. Do all this for 5 days. [facility] doxycycline hyclate 100 mg tablet 2022-05 00:00: 00 02-24 04:59 :00 No [id number] 100mg Take 1 tablet by mouth in the morning and 1 tablet in the evening. Do all this for 5 days. [facility] doxycycline hyclate 100 mg tablet 2022-05 0 00:00: 00 02-19 00:00 :00 No [id number] 100mg Take 1 tablet by mouth in the morning and 1 tablet in the evening. Do all this for 5 days. [facility] ciprofloxac in-dexameth asone 0.3-0.1 % otic drops 2022-05 0 00:00: 00 02-19 00:00 :00 No [id number] 4[drp] Place 4 Drops in left ear in the morning and 4 Drops in the evening. Do all this for 7 days. [facility] benzonatate (TESSALON PERLES) 100 mg capsule 2022-05 0 00:00: 00 02-19 00:00 :00 No [id number] 100mg Take 1 capsule by mouth every 8 (eight) hours as needed for Cough for up to 10 days. [facility] albuterol 90 mcg/actuati on inhaler 2022-05 00:00: 00 02-19 00:00 :00 No [id number] 2{puff} Inhale 2 Puffs every 6 (six) hours as needed for Wheezing or Shortness of Breath. [facility] doxycycline hyclate 100 mg tablet 2022-05 0 00:00: 00 02-19 00:00 :00 No [id number] 100mg Take 1 tablet by mouth in the morning and 1 tablet in the evening. Do all this for 5 days. [facility] ciprofloxac in-dexameth asone 0.3-0.1 % otic drops 2022-05 020 00:00: 00 02-19 00:00 :00 No [id number] 4[drp] Place 4 Drops in left ear in the morning and 4 Drops in the evening. Do all this for 7 days. [facility] benzonatate (TESSALON PERLES) 100 mg capsule 2022-05 0 00:00: 00 02-19 00:00 :00 No [id number] 100mg Take 1 capsule by mouth every 8 (eight) hours as needed for Cough for up to 10 days. [facility] albuterol 90 mcg/actuati on inhaler 2022-05 00:00: 00 02-19 00:00 :00 No [id number] 2{puff} Inhale 2 Puffs every 6 (six) hours as needed for Wheezing or Shortness of Breath. [facility] aspirin 81 mg Cap 2022-0 01-24 11:41: 00 Yes Take by mouth. [facility] aspirin 81 mg Cap 2022-0 01-24 11:41: 00 Yes Take by mouth. [facility] aspirin 81 mg Cap 2022-0 01-24 11:41: 00 Yes Take by mouth. [facility] aspirin 81 mg Cap 2022-0 01-24 11:41: 00 Yes Take by mouth. [facility] aspirin 81 mg Cap 2022-0 01-24 11:41: 00 Yes Take by mouth. [facility] aspirin 81 mg Cap 2022-0 01-24 11:41: 00 Yes Take by mouth. [facility] aspirin 81 mg Cap 2022-0 01-24 11:41: 00 Yes Take by mouth. [facility] aspirin 81 mg Cap 2022-0 01-24 11:41: 00 Yes Take by mouth. [facility] aspirin 81 mg Cap 2022-0 01-24 11:41: 00 Yes Take by mouth. [facility] aspirin 81 mg Cap 3-0 01-24 11:41: 00 Yes Take by mouth. [facility] aspirin 81 mg Cap 3-0 01-24 11:41: 00 Yes Take by mouth. [facility] aspirin 81 mg Cap 3-0 01-24 11:41: 00 Yes Take by mouth. [facility] guanFACINE ER 2 mg tablet 2022-0 01-24 00:00: 00 Yes [id number] 2mg Take 1 tablet by mouth at bedtime. [facility] mycophenola te sodium 360 mg EC tablet 01-24 00:00: 00 Yes [id number] Take 2 tablets by mouth every morning AND 1 tablet every evening. [facility] diltiazem XR 240 mg 24 hr capsule 01-24 00:00: 00 Yes [id number] 240mg Take 1 capsule by mouth in the morning and 1 capsule in the evening. [facility] predniSONE 10 mg tablet 01-24 00:00: 00 Yes [id number] 10mg Take 1 tablet by mouth in the morning. [facility] sodium bicarbonate 650 mg tablet 01-24 00:00: 00 Yes [id number] 650mg Take 1 tablet by mouth in the morning and 1 tablet in the evening. [facility] guanFACINE ER 2 mg tablet 01-24 00:00: 00 Yes [id number] 2mg Take 1 tablet by mouth at bedtime. [facility] mycophenola te sodium 360 mg EC tablet 01-24 00:00: 00 Yes [id number] Take 2 tablets by mouth every morning AND 1 tablet every evening. [facility] diltiazem XR 240 mg 24 hr capsule 01-24 00:00: 00 Yes [id number] 240mg Take 1 capsule by mouth in the morning and 1 capsule in the evening. [facility] predniSONE 10 mg tablet 01-24 00:00: 00 Yes [id number] 10mg Take 1 tablet by mouth in the morning. [facility] sodium bicarbonate 650 mg tablet 01-24 00:00: 00 Yes [id number] 650mg Take 1 tablet by mouth in the morning and 1 tablet in the evening. [facility] guanFACINE ER 2 mg tablet 01-24 00:00: 00 Yes [id number] 2mg Take 1 tablet by mouth at bedtime. [facility] mycophenola te sodium 360 mg EC tablet 01-24 00:00: 00 Yes [id number] Take 2 tablets by mouth every morning AND 1 tablet every evening. [facility] diltiazem XR 240 mg 24 hr capsule 01-24 00:00: 00 Yes [id number] 240mg Take 1 capsule by mouth in the morning and 1 capsule in the evening. [facility] predniSONE 10 mg tablet 01-24 00:00: 00 Yes [id number] 10mg Take 1 tablet by mouth in the morning. [facility] sodium bicarbonate 650 mg tablet 01-24 00:00: 00 Yes [id number] 650mg Take 1 tablet by mouth in the morning and 1 tablet in the evening. [facility] guanFACINE ER 2 mg tablet 01-24 00:00: 00 Yes [id number] 2mg Take 1 tablet by mouth at bedtime. [facility] mycophenola te sodium 360 mg EC tablet 01-24 00:00: 00 Yes [id number] Take 2 tablets by mouth every morning AND 1 tablet every evening. [facility] diltiazem XR 240 mg 24 hr capsule 01-24 00:00: 00 Yes [id number] 240mg Take 1 capsule by mouth in the morning and 1 capsule in the evening. [facility] predniSONE 10 mg tablet 01-24 00:00: 00 Yes [id number] 10mg Take 1 tablet by mouth in the morning. [facility] sodium bicarbonate 650 mg tablet 01-24 00:00: 00 Yes [id number] 650mg Take 1 tablet by mouth in the morning and 1 tablet in the evening. [facility] mycophenola te sodium 360 mg EC tablet 01-24 00:00: 00 Yes [id number] Take 2 tablets by mouth every morning AND 1 tablet every evening. [facility] diltiazem XR 240 mg 24 hr capsule 01-24 00:00: 00 Yes [id number] 240mg Take 1 capsule by mouth in the morning and 1 capsule in the evening. [facility] predniSONE 10 mg tablet 01-24 00:00: 00 Yes [id number] 10mg Take 1 tablet by mouth in the morning. [facility] sodium bicarbonate 650 mg tablet 01-24 00:00: 00 Yes [id number] 650mg Take 1 tablet by mouth in the morning and 1 tablet in the evening. [facility] mycophenola te sodium 360 mg EC tablet 01-24 00:00: 00 Yes [id number] Take 2 tablets by mouth every morning AND 1 tablet every evening. [facility] diltiazem XR 240 mg 24 hr capsule 01-24 00:00: 00 Yes [id number] 240mg Take 1 capsule by mouth in the morning and 1 capsule in the evening. [facility] predniSONE 10 mg tablet 01-24 00:00: 00 Yes [id number] 10mg Take 1 tablet by mouth in the morning. [facility] sodium bicarbonate 650 mg tablet 01-24 00:00: 00 Yes [id number] 650mg Take 1 tablet by mouth in the morning and 1 tablet in the evening. [facility] mycophenola te sodium 360 mg EC tablet 01-24 00:00: 00 Yes [id number] Take 2 tablets by mouth every morning AND 1 tablet every evening. [facility] diltiazem XR 240 mg 24 hr capsule 01-24 00:00: 00 Yes [id number] 240mg Take 1 capsule by mouth in the morning and 1 capsule in the evening. [facility] predniSONE 10 mg tablet 01-24 00:00: 00 Yes [id number] 10mg Take 1 tablet by mouth in the morning. [facility] sodium bicarbonate 650 mg tablet 01-24 00:00: 00 Yes [id number] 650mg Take 1 tablet by mouth in the morning and 1 tablet in the evening. [facility] mycophenola te sodium 360 mg EC tablet 01-24 00:00: 00 Yes [id number] Take 2 tablets by mouth every morning AND 1 tablet every evening. [facility] diltiazem XR 240 mg 24 hr capsule 2022-0 01-24 00:00: 00 Yes [id number] 240mg Take 1 capsule by mouth in the morning and 1 capsule in the evening. [facility] predniSONE 10 mg tablet 25 00:00: 00 Yes [id number] 10mg Take 1 tablet by mouth in the morning. [facility] sodium bicarbonate 650 mg tablet 01-24 00:00: 00 Yes [id number] 650mg Take 1 tablet by mouth in the morning and 1 tablet in the evening. [facility] mycophenola te sodium 360 mg EC tablet 01-24 00:00: 00 Yes [id number] Take 2 tablets by mouth every morning AND 1 tablet every evening. [facility] diltiazem XR 240 mg 24 hr capsule 0 01-24 00:00: 00 Yes [id number] 240mg Take 1 capsule by mouth in the morning and 1 capsule in the evening. [facility] predniSONE 10 mg tablet 01-24 00:00: 00 Yes [id number] 10mg Take 1 tablet by mouth in the morning. [facility] sodium bicarbonate 650 mg tablet 01-24 00:00: 00 Yes [id number] 650mg Take 1 tablet by mouth in the morning and 1 tablet in the evening. [facility] mycophenola te sodium 360 mg EC tablet 01-24 00:00: 00 Yes [id number] Take 2 tablets by mouth every morning AND 1 tablet every evening. [facility] diltiazem XR 240 mg 24 hr capsule 01-24 00:00: 00 Yes [id number] 240mg Take 1 capsule by mouth in the morning and 1 capsule in the evening. [facility] predniSONE 10 mg tablet 0 01-24 00:00: 00 Yes [id number] 10mg Take 1 tablet by mouth in the morning. [facility] sodium bicarbonate 650 mg tablet 0 01-24 00:00: 00 Yes [id number] 650mg Take 1 tablet by mouth in the morning and 1 tablet in the evening. [facility] mycophenola te sodium 360 mg EC tablet 01-24 00:00: 00 Yes [id number] Take 2 tablets by mouth every morning AND 1 tablet every evening. [facility] diltiazem XR 240 mg 24 hr capsule 01-24 00:00: 00 Yes [id number] 240mg Take 1 capsule by mouth in the morning and 1 capsule in the evening. [facility] predniSONE 10 mg tablet 01-24 00:00: 00 Yes [id number] 10mg Take 1 tablet by mouth in the morning. [facility] sodium bicarbonate 650 mg tablet 01-24 00:00: 00 Yes [id number] 650mg Take 1 tablet by mouth in the morning and 1 tablet in the evening. [facility] mycophenola te sodium 360 mg EC tablet 01-24 00:00: 00 Yes [id number] Take 2 tablets by mouth every morning AND 1 tablet every evening. [facility] diltiazem XR 240 mg 24 hr capsule 01-24 00:00: 00 Yes [id number] 240mg Take 1 capsule by mouth in the morning and 1 capsule in the evening. [facility] predniSONE 10 mg tablet 01-24 00:00: 00 Yes [id number] 10mg Take 1 tablet by mouth in the morning. [facility] sodium bicarbonate 650 mg tablet 01-24 00:00: 00 Yes [id number] 650mg Take 1 tablet by mouth in the morning and 1 tablet in the evening. [facility] mycophenola te sodium 360 mg EC tablet 01-24 00:00: 00 Yes [id number] Take 2 tablets by mouth every morning AND 1 tablet every evening. [facility] diltiazem XR 240 mg 24 hr capsule 01-24 00:00: 00 Yes [id number] 240mg Take 1 capsule by mouth in the morning and 1 capsule in the evening. [facility] predniSONE 10 mg tablet 01-24 00:00: 00 Yes [id number] 10mg Take 1 tablet by mouth in the morning. [facility] mycophenola te sodium 360 mg EC tablet 01-24 00:00: 00 Yes [id number] Take 2 tablets by mouth every morning AND 1 tablet every evening. [facility] diltiazem XR 240 mg 24 hr capsule 01-24 00:00: 00 Yes [id number] 240mg Take 1 capsule by mouth in the morning and 1 capsule in the evening. [facility] predniSONE 10 mg tablet 01-24 00:00: 00 Yes [id number] 10mg Take 1 tablet by mouth in the morning. [facility] mycophenola te sodium 360 mg EC tablet 01-24 00:00: 00 Yes [id number] Take 2 tablets by mouth every morning AND 1 tablet every evening. [facility] diltiazem XR 240 mg 24 hr capsule 01-24 00:00: 00 Yes [id number] 240mg Take 1 capsule by mouth in the morning and 1 capsule in the evening. [facility] predniSONE 10 mg tablet 01-24 00:00: 00 Yes [id number] 10mg Take 1 tablet by mouth in the morning. [facility] mycophenola te sodium 360 mg EC tablet 01-24 00:00: 00 Yes [id number] Take 2 tablets by mouth every morning AND 1 tablet every evening. [facility] diltiazem XR 240 mg 24 hr capsule 01-24 00:00: 00 Yes [id number] 240mg Take 1 capsule by mouth in the morning and 1 capsule in the evening. [facility] predniSONE 10 mg tablet 01-24 00:00: 00 Yes [id number] 10mg Take 1 tablet by mouth in the morning. [facility] mycophenola te sodium 360 mg EC tablet 01-24 00:00: 00 Yes [id number] Take 2 tablets by mouth every morning AND 1 tablet every evening. [facility] diltiazem XR 240 mg 24 hr capsule 01-24 00:00: 00 Yes [id number] 240mg Take 1 capsule by mouth in the morning and 1 capsule in the evening. [facility] predniSONE 10 mg tablet 01-24 00:00: 00 Yes [id number] 10mg Take 1 tablet by mouth in the morning. [facility] mycophenola te sodium 360 mg EC tablet 01-24 00:00: 00 Yes [id number] Take 2 tablets by mouth every morning AND 1 tablet every evening. [facility] diltiazem XR 240 mg 24 hr capsule 01-24 00:00: 00 Yes [id number] 240mg Take 1 capsule by mouth in the morning and 1 capsule in the evening. [facility] predniSONE 10 mg tablet 01-24 00:00: 00 Yes [id number] 10mg Take 1 tablet by mouth in the morning. [facility] mycophenola te sodium 360 mg EC tablet 01-24 00:00: 00 Yes [id number] Take 2 tablets by mouth every morning AND 1 tablet every evening. [facility] diltiazem XR 240 mg 24 hr capsule 01-24 00:00: 00 Yes [id number] 240mg Take 1 capsule by mouth in the morning and 1 capsule in the evening. [facility] predniSONE 10 mg tablet 01-24 00:00: 00 Yes [id number] 10mg Take 1 tablet by mouth in the morning. [facility] mycophenola te sodium 360 mg EC tablet 01-24 00:00: 00 Yes [id number] Take 2 tablets by mouth every morning AND 1 tablet every evening. [facility] diltiazem XR 240 mg 24 hr capsule 01-24 00:00: 00 Yes [id number] 240mg Take 1 capsule by mouth in the morning and 1 capsule in the evening. [facility] predniSONE 10 mg tablet 01-24 00:00: 00 Yes [id number] 10mg Take 1 tablet by mouth in the morning. [facility] mycophenola te sodium 360 mg EC tablet 01-24 00:00: 00 Yes [id number] Take 2 tablets by mouth every morning AND 1 tablet every evening. [facility] diltiazem XR 240 mg 24 hr capsule 01-24 00:00: 00 Yes [id number] 240mg Take 1 capsule by mouth in the morning and 1 capsule in the evening. [facility] predniSONE 10 mg tablet 01-24 00:00: 00 Yes [id number] 10mg Take 1 tablet by mouth in the morning. [facility] mycophenola te sodium 360 mg EC tablet 01-24 00:00: 00 Yes [id number] Take 2 tablets by mouth every morning AND 1 tablet every evening. [facility] diltiazem XR 240 mg 24 hr capsule 01-24 00:00: 00 Yes [id number] 240mg Take 1 capsule by mouth in the morning and 1 capsule in the evening. [facility] predniSONE 10 mg tablet 01-24 00:00: 00 Yes [id number] 10mg Take 1 tablet by mouth in the morning. [facility] mycophenola te sodium 360 mg EC tablet 01-24 00:00: 00 Yes [id number] Take 2 tablets by mouth every morning AND 1 tablet every evening. [facility] diltiazem XR 240 mg 24 hr capsule 01-24 00:00: 00 Yes [id number] 240mg Take 1 capsule by mouth in the morning and 1 capsule in the evening. [facility] predniSONE 10 mg tablet 01-24 00:00: 00 Yes [id number] 10mg Take 1 tablet by mouth in the morning. [facility] mycophenola te sodium 360 mg EC tablet 01-24 00:00: 00 Yes [id number] Take 2 tablets by mouth every morning AND 1 tablet every evening. [facility] diltiazem XR 240 mg 24 hr capsule 01-24 00:00: 00 Yes [id number] 240mg Take 1 capsule by mouth in the morning and 1 capsule in the evening. [facility] predniSONE 10 mg tablet 01-24 00:00: 00 Yes [id number] 10mg Take 1 tablet by mouth in the morning. [facility] mycophenola te sodium 360 mg EC tablet 01-24 00:00: 00 Yes [id number] Take 2 tablets by mouth every morning AND 1 tablet every evening. [facility] diltiazem XR 240 mg 24 hr capsule 01-24 00:00: 00 Yes [id number] 240mg Take 1 capsule by mouth in the morning and 1 capsule in the evening. [facility] predniSONE 10 mg tablet 0 01-24 00:00: 00 Yes [id number] 10mg Take 1 tablet by mouth in the morning. [facility] mycophenola te sodium 360 mg EC tablet 01-24 00:00: 00 Yes [id number] Take 2 tablets by mouth every morning AND 1 tablet every evening. [facility] diltiazem XR 240 mg 24 hr capsule 01-24 00:00: 00 Yes [id number] 240mg Take 1 capsule by mouth in the morning and 1 capsule in the evening. [facility] predniSONE 10 mg tablet 01-24 00:00: 00 Yes [id number] 10mg Take 1 tablet by mouth in the morning. [facility] mycophenola te sodium 360 mg EC tablet 01-24 00:00: 00 Yes [id number] Take 2 tablets by mouth every morning AND 1 tablet every evening. [facility] diltiazem XR 240 mg 24 hr capsule 01-24 00:00: 00 Yes [id number] 240mg Take 1 capsule by mouth in the morning and 1 capsule in the evening. [facility] predniSONE 10 mg tablet 01-24 00:00: 00 Yes [id number] 10mg Take 1 tablet by mouth in the morning. [facility] mycophenola te sodium 360 mg EC tablet 01-24 00:00: 00 Yes [id number] Take 2 tablets by mouth every morning AND 1 tablet every evening. [facility] diltiazem XR 240 mg 24 hr capsule 01-24 00:00: 00 Yes [id number] 240mg Take 1 capsule by mouth in the morning and 1 capsule in the evening. [facility] predniSONE 10 mg tablet 0 01-24 00:00: 00 Yes [id number] 10mg Take 1 tablet by mouth in the morning. [facility] mycophenola te sodium 360 mg EC tablet 01-24 00:00: 00 Yes [id number] Take 2 tablets by mouth every morning AND 1 tablet every evening. [facility] diltiazem XR 240 mg 24 hr capsule 2022-0 01-24 00:00: 00 Yes [id number] 240mg Take 1 capsule by mouth in the morning and 1 capsule in the evening. [facility] predniSONE 10 mg tablet 0 01-24 00:00: 00 Yes [id number] 10mg Take 1 tablet by mouth in the morning. [facility] mycophenola te sodium 360 mg EC tablet 0 01-24 00:00: 00 Yes [id number] Take 2 tablets by mouth every morning AND 1 tablet every evening. [facility] diltiazem XR 240 mg 24 hr capsule 0 01-24 00:00: 00 Yes [id number] 240mg Take 1 capsule by mouth in the morning and 1 capsule in the evening. [facility] predniSONE 10 mg tablet 0 01-24 00:00: 00 Yes [id number] 10mg Take 1 tablet by mouth in the morning. [facility] mycophenola te sodium 360 mg EC tablet 0 01-24 00:00: 00 Yes [id number] Take 2 tablets by mouth every morning AND 1 tablet every evening. [facility] diltiazem XR 240 mg 24 hr capsule 01-24 00:00: 00 Yes [id number] 240mg Take 1 capsule by mouth in the morning and 1 capsule in the evening. [facility] predniSONE 10 mg tablet 2022-0 01-24 00:00: 00 Yes [id number] 10mg Take 1 tablet by mouth in the morning. [facility] mycophenola te sodium 360 mg EC tablet 0 01-24 00:00: 00 Yes [id number] Take 2 tablets by mouth every morning AND 1 tablet every evening. [facility] diltiazem XR 240 mg 24 hr capsule 0 01-24 00:00: 00 Yes [id number] 240mg Take 1 capsule by mouth in the morning and 1 capsule in the evening. [facility] predniSONE 10 mg tablet 2022-0 01-24 00:00: 00 Yes [id number] 10mg Take 1 tablet by mouth in the morning. [facility] mycophenola te sodium 360 mg EC tablet 01-24 00:00: 00 Yes [id number] Take 2 tablets by mouth every morning AND 1 tablet every evening. [facility] diltiazem XR 240 mg 24 hr capsule 01-24 00:00: 00 Yes [id number] 240mg Take 1 capsule by mouth in the morning and 1 capsule in the evening. [facility] predniSONE 10 mg tablet 01-24 00:00: 00 Yes [id number] 10mg Take 1 tablet by mouth in the morning. [facility] mycophenola te sodium 360 mg EC tablet 01-24 00:00: 00 Yes [id number] Take 2 tablets by mouth every morning AND 1 tablet every evening. [facility] diltiazem XR 240 mg 24 hr capsule 01-24 00:00: 00 Yes [id number] 240mg Take 1 capsule by mouth in the morning and 1 capsule in the evening. [facility] predniSONE 10 mg tablet 01-24 00:00: 00 Yes [id number] 10mg Take 1 tablet by mouth in the morning. [facility] mycophenola te sodium 360 mg EC tablet 01-24 00:00: 00 Yes [id number] Take 2 tablets by mouth every morning AND 1 tablet every evening. [facility] diltiazem XR 240 mg 24 hr capsule 01-24 00:00: 00 Yes [id number] 240mg Take 1 capsule by mouth in the morning and 1 capsule in the evening. [facility] predniSONE 10 mg tablet 01-24 00:00: 00 Yes [id number] 10mg Take 1 tablet by mouth in the morning. [facility] mycophenola te sodium 360 mg EC tablet 01-24 00:00: 00 Yes [id number] Take 2 tablets by mouth every morning AND 1 tablet every evening. [facility] diltiazem XR 240 mg 24 hr capsule 0 01-24 00:00: 00 Yes [id number] 240mg Take 1 capsule by mouth in the morning and 1 capsule in the evening. [facility] predniSONE 10 mg tablet 01-24 00:00: 00 Yes [id number] 10mg Take 1 tablet by mouth in the morning. [facility] mycophenola te sodium 360 mg EC tablet 01-24 00:00: 00 Yes [id number] Take 2 tablets by mouth every morning AND 1 tablet every evening. [facility] diltiazem XR 240 mg 24 hr capsule 01-24 00:00: 00 Yes [id number] 240mg Take 1 capsule by mouth in the morning and 1 capsule in the evening. [facility] predniSONE 10 mg tablet 01-24 00:00: 00 Yes [id number] 10mg Take 1 tablet by mouth in the morning. [facility] mycophenola te sodium 360 mg EC tablet 01-24 00:00: 00 Yes [id number] Take 2 tablets by mouth every morning AND 1 tablet every evening. [facility] diltiazem XR 240 mg 24 hr capsule 01-24 00:00: 00 Yes [id number] 240mg Take 1 capsule by mouth in the morning and 1 capsule in the evening. [facility] predniSONE 10 mg tablet 01-24 00:00: 00 Yes [id number] 10mg Take 1 tablet by mouth in the morning. [facility] mycophenola te sodium 360 mg EC tablet 01-24 00:00: 00 Yes [id number] Take 2 tablets by mouth every morning AND 1 tablet every evening. [facility] diltiazem XR 240 mg 24 hr capsule 01-24 00:00: 00 Yes [id number] 240mg Take 1 capsule by mouth in the morning and 1 capsule in the evening. [facility] predniSONE 10 mg tablet 01-24 00:00: 00 Yes [id number] 10mg Take 1 tablet by mouth in the morning. [facility] mycophenola te sodium 360 mg EC tablet 01-24 00:00: 00 Yes [id number] Take 2 tablets by mouth every morning AND 1 tablet every evening. [facility] diltiazem XR 240 mg 24 hr capsule 01-24 00:00: 00 Yes [id number] 240mg Take 1 capsule by mouth in the morning and 1 capsule in the evening. [facility] predniSONE 10 mg tablet 01-24 00:00: 00 Yes [id number] 10mg Take 1 tablet by mouth in the morning. [facility] mycophenola te sodium 360 mg EC tablet 01-24 00:00: 00 Yes [id number] Take 2 tablets by mouth every morning AND 1 tablet every evening. [facility] diltiazem XR 240 mg 24 hr capsule 01-24 00:00: 00 Yes [id number] 240mg Take 1 capsule by mouth in the morning and 1 capsule in the evening. [facility] predniSONE 10 mg tablet 01-24 00:00: 00 Yes [id number] 10mg Take 1 tablet by mouth in the morning. [facility] mycophenola te sodium 360 mg EC tablet 01-24 00:00: 00 Yes [id number] Take 2 tablets by mouth every morning AND 1 tablet every evening. [facility] diltiazem XR 240 mg 24 hr capsule 01-24 00:00: 00 Yes [id number] 240mg Take 1 capsule by mouth in the morning and 1 capsule in the evening. [facility] predniSONE 10 mg tablet 01-24 00:00: 00 Yes [id number] 10mg Take 1 tablet by mouth in the morning. [facility] mycophenola te sodium 360 mg EC tablet 01-24 00:00: 00 Yes [id number] Take 2 tablets by mouth every morning AND 1 tablet every evening. [facility] diltiazem XR 240 mg 24 hr capsule 01-24 00:00: 00 Yes [id number] 240mg Take 1 capsule by mouth in the morning and 1 capsule in the evening. [facility] predniSONE 10 mg tablet 01-24 00:00: 00 Yes [id number] 10mg Take 1 tablet by mouth in the morning. [facility] sodium bicarbonate 650 mg tablet 01-24 00:00: 00 Yes [id number] 650mg Take 1 tablet by mouth in the morning and 1 tablet in the evening. [facility] guanFACINE ER 2 mg tablet 01-24 00:00: 00 Yes [id number] 2mg Take 1 tablet by mouth at bedtime. [facility] mycophenola te sodium 360 mg EC tablet 01-24 00:00: 00 Yes [id number] Take 2 tablets by mouth every morning AND 1 tablet every evening. [facility] diltiazem XR 240 mg 24 hr capsule 01-24 00:00: 00 Yes [id number] 240mg Take 1 capsule by mouth in the morning and 1 capsule in the evening. [facility] predniSONE 10 mg tablet 01-24 00:00: 00 Yes [id number] 10mg Take 1 tablet by mouth in the morning. [facility] sodium bicarbonate 650 mg tablet 01-24 00:00: 00 Yes [id number] 650mg Take 1 tablet by mouth in the morning and 1 tablet in the evening. [facility] guanFACINE ER 2 mg tablet 01-24 00:00: 00 Yes [id number] 2mg Take 1 tablet by mouth at bedtime. [facility] mycophenola te sodium 360 mg EC tablet 01-24 00:00: 00 Yes [id number] Take 2 tablets by mouth every morning AND 1 tablet every evening. [facility] diltiazem XR 240 mg 24 hr capsule 01-24 00:00: 00 Yes [id number] 240mg Take 1 capsule by mouth in the morning and 1 capsule in the evening. [facility] predniSONE 10 mg tablet 01-24 00:00: 00 Yes [id number] 10mg Take 1 tablet by mouth in the morning. [facility] sodium bicarbonate 650 mg tablet 01-24 00:00: 00 Yes [id number] 650mg Take 1 tablet by mouth in the morning and 1 tablet in the evening. [facility] guanFACINE ER 2 mg tablet 01-24 00:00: 00 Yes [id number] 2mg Take 1 tablet by mouth at bedtime. [facility] mycophenola te sodium 360 mg EC tablet 01-24 00:00: 00 Yes [id number] Take 2 tablets by mouth every morning AND 1 tablet every evening. [facility] diltiazem XR 240 mg 24 hr capsule 01-24 00:00: 00 Yes [id number] 240mg Take 1 capsule by mouth in the morning and 1 capsule in the evening. [facility] predniSONE 10 mg tablet 01-24 00:00: 00 Yes [id number] 10mg Take 1 tablet by mouth in the morning. [facility] sodium bicarbonate 650 mg tablet 01-24 00:00: 00 Yes [id number] 650mg Take 1 tablet by mouth in the morning and 1 tablet in the evening. [facility] guanFACINE ER 2 mg tablet 01-24 00:00: 00 Yes [id number] 2mg Take 1 tablet by mouth at bedtime. [facility] mycophenola te sodium 360 mg EC tablet 01-24 00:00: 00 Yes [id number] Take 2 tablets by mouth every morning AND 1 tablet every evening. [facility] diltiazem XR 240 mg 24 hr capsule 01-24 00:00: 00 Yes [id number] 240mg Take 1 capsule by mouth in the morning and 1 capsule in the evening. [facility] predniSONE 10 mg tablet 01-24 00:00: 00 Yes [id number] 10mg Take 1 tablet by mouth in the morning. [facility] sodium bicarbonate 650 mg tablet 01-24 00:00: 00 Yes [id number] 650mg Take 1 tablet by mouth in the morning and 1 tablet in the evening. [facility] guanFACINE ER 2 mg tablet 01-24 00:00: 00 Yes [id number] 2mg Take 1 tablet by mouth at bedtime. [facility] mycophenola te sodium 360 mg EC tablet 01-24 00:00: 00 Yes [id number] Take 2 tablets by mouth every morning AND 1 tablet every evening. [facility] diltiazem XR 240 mg 24 hr capsule 01-24 00:00: 00 Yes [id number] 240mg Take 1 capsule by mouth in the morning and 1 capsule in the evening. [facility] predniSONE 10 mg tablet 01-24 00:00: 00 Yes [id number] 10mg Take 1 tablet by mouth in the morning. [facility] sodium bicarbonate 650 mg tablet 01-24 00:00: 00 Yes [id number] 650mg Take 1 tablet by mouth in the morning and 1 tablet in the evening. [facility] guanFACINE ER 2 mg tablet 01-24 00:00: 00 Yes [id number] 2mg Take 1 tablet by mouth at bedtime. [facility] mycophenola te sodium 360 mg EC tablet 01-24 00:00: 00 Yes [id number] Take 2 tablets by mouth every morning AND 1 tablet every evening. [facility] diltiazem XR 240 mg 24 hr capsule 01-24 00:00: 00 Yes [id number] 240mg Take 1 capsule by mouth in the morning and 1 capsule in the evening. [facility] predniSONE 10 mg tablet 01-24 00:00: 00 Yes [id number] 10mg Take 1 tablet by mouth in the morning. [facility] sodium bicarbonate 650 mg tablet 01-24 00:00: 00 Yes [id number] 650mg Take 1 tablet by mouth in the morning and 1 tablet in the evening. [facility] guanFACINE ER 2 mg tablet 01-24 00:00: 00 Yes [id number] 2mg Take 1 tablet by mouth at bedtime. [facility] mycophenola te sodium 360 mg EC tablet 01-24 00:00: 00 Yes [id number] Take 2 tablets by mouth every morning AND 1 tablet every evening. [facility] diltiazem XR 240 mg 24 hr capsule 01-24 00:00: 00 Yes [id number] 240mg Take 1 capsule by mouth in the morning and 1 capsule in the evening. [facility] predniSONE 10 mg tablet 01-24 00:00: 00 Yes [id number] 10mg Take 1 tablet by mouth in the morning. [facility] sodium bicarbonate 650 mg tablet 01-24 00:00: 00 Yes [id number] 650mg Take 1 tablet by mouth in the morning and 1 tablet in the evening. [facility] guanFACINE ER 2 mg tablet 01-24 00:00: 00 Yes [id number] 2mg Take 1 tablet by mouth at bedtime. [facility] mycophenola te sodium 360 mg EC tablet 01-24 00:00: 00 Yes [id number] Take 2 tablets by mouth every morning AND 1 tablet every evening. [facility] diltiazem XR 240 mg 24 hr capsule 01-24 00:00: 00 Yes [id number] 240mg Take 1 capsule by mouth in the morning and 1 capsule in the evening. [facility] predniSONE 10 mg tablet 01-24 00:00: 00 Yes [id number] 10mg Take 1 tablet by mouth in the morning. [facility] sodium bicarbonate 650 mg tablet 01-24 00:00: 00 Yes [id number] 650mg Take 1 tablet by mouth in the morning and 1 tablet in the evening. [facility] sodium bicarbonate 650 mg tablet 01-24 00:00: 00 03-01 00:00 :00 No [id number] 650mg Take 1 tablet by mouth in the morning and 1 tablet in the evening. [facility] sodium bicarbonate 650 mg tablet 01-24 00:00: 00 03-01 00:00 :00 No [id number] 650mg Take 1 tablet by mouth in the morning and 1 tablet in the evening. [facility] guanFACINE ER 2 mg tablet 01-24 00:00: 00 02-19 00:00 :00 No [id number] 2mg Take 1 tablet by mouth at bedtime. [facility] guanFACINE ER 2 mg tablet 01-24 00:00: 02-19 00:00 :00 No [id number] 2mg Take 1 tablet by mouth at bedtime. [facility] mycophenola te sodium 360 mg EC tablet 01-24 00:00: 00 01-24 00:00 :00 No [id number] TAKE 1 TABLET BY MOUTH IN THE MORNING AT NOON AND IN THE EVENING [facility] mycophenola te sodium 360 mg EC tablet 01-24 00:00: 00 01-24 00:00 :00 No [id number] TAKE 1 TABLET BY MOUTH IN THE MORNING AT NOON AND IN THE EVENING [facility] mycophenola te sodium 360 mg EC tablet 01-24 00:00: 00 01-24 00:00 :00 No [id number] TAKE 1 TABLET BY MOUTH IN THE MORNING AT NOON AND IN THE EVENING [facility] guanFACINE ER 2 mg tablet 12-29 00:00: 00 Yes [id number] 2mg Take 1 tablet by mouth at bedtime. [facility] guanFACINE ER 2 mg tablet 12-29 00:00: 00 Yes [id number] 2mg Take 1 tablet by mouth at bedtime. [facility] guanFACINE ER 2 mg tablet 12-29 00:00: 00 01-24 00:00 :00 No [id number] 2mg Take 1 tablet by mouth at bedtime. [facility] guanFACINE ER 2 mg tablet 12-29 00:00: 00 01-24 00:00 :00 No [id number] 2mg Take 1 tablet by mouth at bedtime. [facility] guanFACINE ER 2 mg tablet 12-29 00:00: 00 01-24 00:00 :00 No [id number] 2mg Take 1 tablet by mouth at bedtime. [facility] darbepoetin michael in polysorbat (ARANESP, POLYSORBATE ,) 200 mcg/0.4 mL injection 805 00:00: 00 Yes [id number] 9101 200ug inject 0.4 mL under the skin every 2 (two) weeks. [facility] darbepoetin michael in polysorbat (ARANESP, POLYSORBATE ,) 200 mcg/0.4 mL injection 8 00:00: 00 Yes [id number] 9101 200ug inject 0.4 mL under the skin every 2 (two) weeks. [facility] darbepoetin michael in polysorbat (ARANESP, POLYSORBATE ,) 200 mcg/0.4 mL injection 8 00:00: 00 Yes [id number] 9101 200ug inject 0.4 mL under the skin every 2 (two) weeks. [facility] darbepoetin michael in polysorbat (ARANESP, POLYSORBATE ,) 200 mcg/0.4 mL injection 12-04 00:00: 00 Yes [id number] 9101 200ug inject 0.4 mL under the skin every 2 (two) weeks. [facility] darbepoetin michael in polysorbat (ARANESP, POLYSORBATE ,) 200 mcg/0.4 mL injection 12-04 00:00: 00 Yes [id number] 9101 200ug inject 0.4 mL under the skin every 2 (two) weeks. [facility] darbepoetin michael in polysorbat (ARANESP, POLYSORBATE ,) 200 mcg/0.4 mL injection 0 8 00:00: 00 Yes [id number] 9101 200ug inject 0.4 mL under the skin every 2 (two) weeks. [facility] darbepoetin michael in polysorbat (ARANESP, POLYSORBATE ,) 200 mcg/0.4 mL injection 0 8 00:00: 00 Yes [id number] 9101 200ug inject 0.4 mL under the skin every 2 (two) weeks. [facility] darbepoetin michael in polysorbat (ARANESP, POLYSORBATE ,) 200 mcg/0.4 mL injection 0 805 00:00: 00 Yes [id number] 200ug inject 0.4 mL under the skin every 2 (two) weeks. [facility] darbepoetin michael in polysorbat (ARANESP, POLYSORBATE ,) 200 mcg/0.4 mL injection 0 805 00:00: 00 Yes [id number] 9101 200ug inject 0.4 mL under the skin every 2 (two) weeks. [facility] darbepoetin michael in polysorbat (ARANESP, POLYSORBATE ,) 200 mcg/0.4 mL injection 805 00:00: 00 Yes [id number] 9101 200ug inject 0.4 mL under the skin every 2 (two) weeks. [facility] darbepoetin michael in polysorbat (ARANESP, POLYSORBATE ,) 200 mcg/0.4 mL injection 8 00:00: 00 Yes [id number] 9101 200ug inject 0.4 mL under the skin every 2 (two) weeks. [facility] darbepoetin michael in polysorbat (ARANESP, POLYSORBATE ,) 200 mcg/0.4 mL injection 0 8 00:00: 00 Yes [id number] 9101 200ug inject 0.4 mL under the skin every 2 (two) weeks. [facility] darbepoetin michael in polysorbat (ARANESP, POLYSORBATE ,) 200 mcg/0.4 mL injection 2022-0 805 00:00: 00 Yes [id number] 9101 200ug inject 0.4 mL under the skin every 2 (two) weeks. [facility] darbepoetin michael in polysorbat (ARANESP, POLYSORBATE ,) 200 mcg/0.4 mL injection 0 805 00:00: 00 Yes [id number] 9101 200ug inject 0.4 mL under the skin every 2 (two) weeks. [facility] darbepoetin michael in polysorbat (ARANESP, POLYSORBATE ,) 200 mcg/0.4 mL injection 2022-0 8-05 00:00: 00 Yes [id number] 9101 200ug inject 0.4 mL under the skin every 2 (two) weeks. [facility] darbepoetin michael in polysorbat (ARANESP, POLYSORBATE ,) 200 mcg/0.4 mL injection 12-04 00:00: 00 Yes [id number] 9101 200ug inject 0.4 mL under the skin every 2 (two) weeks. [facility] darbepoetin michael in polysorbat (ARANESP, POLYSORBATE ,) 200 mcg/0.4 mL injection 12-04 00:00: 00 Yes [id number] 9101 200ug inject 0.4 mL under the skin every 2 (two) weeks. [facility] darbepoetin michael in polysorbat (ARANESP, POLYSORBATE ,) 200 mcg/0.4 mL injection 12-04 00:00: 00 Yes [id number] 9101 200ug inject 0.4 mL under the skin every 2 (two) weeks. [facility] darbepoetin michael in polysorbat (ARANESP, POLYSORBATE ,) 200 mcg/0.4 mL injection 12-04 00:00: 00 Yes [id number] 9101 200ug inject 0.4 mL under the skin every 2 (two) weeks. [facility] darbepoetin michael in polysorbat (ARANESP, POLYSORBATE ,) 200 mcg/0.4 mL injection 8 00:00: 00 Yes [id number] 9101 200ug inject 0.4 mL under the skin every 2 (two) weeks. [facility] darbepoetin michael in polysorbat (ARANESP, POLYSORBATE ,) 200 mcg/0.4 mL injection 805 00:00: 00 Yes [id number] 9101 200ug inject 0.4 mL under the skin every 2 (two) weeks. [facility] darbepoetin michael in polysorbat (ARANESP, POLYSORBATE ,) 200 mcg/0.4 mL injection 0 8-05 00:00: 00 02-19 00:00 :00 No [id number] 9101 200ug inject 0.4 mL under the skin every 2 (two) weeks. [facility] darbepoetin michael in polysorbat (ARANESP, POLYSORBATE ,) 200 mcg/0.4 mL injection 8-05 00:00: 00 02-19 00:00 :00 No [id number] 9101 200ug inject 0.4 mL under the skin every 2 (two) weeks. [facility] diltiazem XR 240 mg 24 hr capsule 0 18 00:00: 00 Yes [id number] 240mg Take 1 capsule by mouth in the morning and 1 capsule in the evening. [facility] diltiazem XR 240 mg 24 hr capsule 2022-0 18 00:00: 00 Yes [id number] 240mg Take 1 capsule by mouth in the morning and 1 capsule in the evening. [facility] diltiazem XR 240 mg 24 hr capsule 2022-0 18 00:00: 00 Yes [id number] 240mg Take 1 capsule by mouth in the morning and 1 capsule in the evening. [facility] diltiazem XR 240 mg 24 hr capsule 2022-0 18 00:00: 00 Yes [id number] 240mg Take 1 capsule by mouth in the morning and 1 capsule in the evening. [facility] diltiazem XR 240 mg 24 hr capsule 2022-0 18 00:00: 00 Yes [id number] 240mg Take 1 capsule by mouth in the morning and 1 capsule in the evening. [facility] diltiazem XR 240 mg 24 hr capsule 2022-0 18 00:00: 00 Yes [id number] 240mg Take 1 capsule by mouth in the morning and 1 capsule in the evening. [facility] diltiazem XR 240 mg 24 hr capsule 3-0 7-18 00:00: 00 Yes [id number] 240mg Take 1 capsule by mouth in the morning and 1 capsule in the evening. [facility] diltiazem XR 240 mg 24 hr capsule 3-0 7-18 00:00: 00 Yes [id number] 240mg Take 1 capsule by mouth in the morning and 1 capsule in the evening. [facility] diltiazem XR 240 mg 24 hr capsule 2022-0 11-16 00:00: 00 Yes [id number] 240mg Take 1 capsule by mouth in the morning and 1 capsule in the evening. [facility] diltiazem XR 240 mg 24 hr capsule 11-16 00:00: 00 Yes [id number] 240mg Take 1 capsule by mouth in the morning and 1 capsule in the evening. [facility] diltiazem XR 240 mg 24 hr capsule 11-16 00:00: 00 01-24 00:00 :00 No [id number] 240mg Take 1 capsule by mouth in the morning and 1 capsule in the evening. [facility] diltiazem XR 240 mg 24 hr capsule 11-16 00:00: 00 01-24 00:00 :00 No [id number] 240mg Take 1 capsule by mouth in the morning and 1 capsule in the evening. [facility] diltiazem XR 240 mg 24 hr capsule 11-16 00:00: 00 01-24 00:00 :00 No [id number] 240mg Take 1 capsule by mouth in the morning and 1 capsule in the evening. [facility] calcium carbonate 200 mg calcium (500 mg) chewable tablet 11-11 00:00: 00 Yes [id number] 1{tbl} Take 1 tablet by mouth in the morning and 1 tablet at noon and 1 tablet in the evening. Take before meals. [facility] calcium carbonate 200 mg calcium (500 mg) chewable tablet 11-11 00:00: 00 Yes [id number] 1{tbl} Take 1 tablet by mouth in the morning and 1 tablet at noon and 1 tablet in the evening. Take before meals. [facility] calcium carbonate 200 mg calcium (500 mg) chewable tablet 11-11 00:00: 00 Yes [id number] 1{tbl} Take 1 tablet by mouth in the morning and 1 tablet at noon and 1 tablet in the evening. Take before meals. [facility] calcium carbonate 200 mg calcium (500 mg) chewable tablet 11-11 00:00: 00 Yes [id number] 1{tbl} Take 1 tablet by mouth in the morning and 1 tablet at noon and 1 tablet in the evening. Take before meals. [facility] calcium carbonate 200 mg calcium (500 mg) chewable tablet 0 11-11 00:00: 00 Yes [id number] 1{tbl} Take 1 tablet by mouth in the morning and 1 tablet at noon and 1 tablet in the evening. Take before meals. [facility] calcium carbonate 200 mg calcium (500 mg) chewable tablet 0 11-11 00:00: 00 Yes [id number] 1{tbl} Take 1 tablet by mouth in the morning and 1 tablet at noon and 1 tablet in the evening. Take before meals. [facility] calcium carbonate 200 mg calcium (500 mg) chewable tablet 0 11-11 00:00: 00 Yes [id number] 1{tbl} Take 1 tablet by mouth in the morning and 1 tablet at noon and 1 tablet in the evening. Take before meals. [facility] calcium carbonate 200 mg calcium (500 mg) chewable tablet 11-11 00:00: 00 Yes [id number] 1{tbl} Take 1 tablet by mouth in the morning and 1 tablet at noon and 1 tablet in the evening. Take before meals. [facility] calcium carbonate 200 mg calcium (500 mg) chewable tablet 11-11 00:00: 00 Yes [id number] 1{tbl} Take 1 tablet by mouth in the morning and 1 tablet at noon and 1 tablet in the evening. Take before meals. [facility] calcium carbonate 200 mg calcium (500 mg) chewable tablet 0 11-11 00:00: 00 Yes [id number] 1{tbl} Take 1 tablet by mouth in the morning and 1 tablet at noon and 1 tablet in the evening. Take before meals. [facility] calcium carbonate 200 mg calcium (500 mg) chewable tablet 0 11-11 00:00: 00 Yes [id number] 1{tbl} Take 1 tablet by mouth in the morning and 1 tablet at noon and 1 tablet in the evening. Take before meals. [facility] calcium carbonate 200 mg calcium (500 mg) chewable tablet 11-11 00:00: 00 Yes [id number] 1{tbl} Take 1 tablet by mouth in the morning and 1 tablet at noon and 1 tablet in the evening. Take before meals. [facility] calcium carbonate 200 mg calcium (500 mg) chewable tablet 11-11 00:00: 00 Yes [id number] 1{tbl} Take 1 tablet by mouth in the morning and 1 tablet at noon and 1 tablet in the evening. Take before meals. [facility] calcium carbonate 200 mg calcium (500 mg) chewable tablet 11-11 00:00: 00 Yes [id number] 1{tbl} Take 1 tablet by mouth in the morning and 1 tablet at noon and 1 tablet in the evening. Take before meals. [facility] calcium carbonate 200 mg calcium (500 mg) chewable tablet 11-11 00:00: 00 Yes [id number] 1{tbl} Take 1 tablet by mouth in the morning and 1 tablet at noon and 1 tablet in the evening. Take before meals. [facility] calcium carbonate 200 mg calcium (500 mg) chewable tablet 11-11 00:00: 00 Yes [id number] 1{tbl} Take 1 tablet by mouth in the morning and 1 tablet at noon and 1 tablet in the evening. Take before meals. [facility] calcium carbonate 200 mg calcium (500 mg) chewable tablet 11-11 00:00: 00 Yes [id number] 1{tbl} Take 1 tablet by mouth in the morning and 1 tablet at noon and 1 tablet in the evening. Take before meals. [facility] calcium carbonate 200 mg calcium (500 mg) chewable tablet 11-11 00:00: 00 Yes [id number] 1{tbl} Take 1 tablet by mouth in the morning and 1 tablet at noon and 1 tablet in the evening. Take before meals. [facility] calcium carbonate 200 mg calcium (500 mg) chewable tablet 11-11 00:00: 00 Yes [id number] 1{tbl} Take 1 tablet by mouth in the morning and 1 tablet at noon and 1 tablet in the evening. Take before meals. [facility] calcium carbonate 200 mg calcium (500 mg) chewable tablet 0 11-11 00:00: 00 Yes [id number] 1{tbl} Take 1 tablet by mouth in the morning and 1 tablet at noon and 1 tablet in the evening. Take before meals. [facility] calcium carbonate 200 mg calcium (500 mg) chewable tablet 0 11-11 00:00: 00 Yes [id number] 1{tbl} Take 1 tablet by mouth in the morning and 1 tablet at noon and 1 tablet in the evening. Take before meals. [facility] calcium carbonate 200 mg calcium (500 mg) chewable tablet 0 11-11 00:00: 00 Yes [id number] 1{tbl} Take 1 tablet by mouth in the morning and 1 tablet at noon and 1 tablet in the evening. Take before meals. [facility] calcium carbonate 200 mg calcium (500 mg) chewable tablet 11-11 00:00: 00 Yes [id number] 1{tbl} Take 1 tablet by mouth in the morning and 1 tablet at noon and 1 tablet in the evening. Take before meals. [facility] calcium carbonate 200 mg calcium (500 mg) chewable tablet 11-11 00:00: 00 Yes [id number] 1{tbl} Take 1 tablet by mouth in the morning and 1 tablet at noon and 1 tablet in the evening. Take before meals. [facility] calcium carbonate 200 mg calcium (500 mg) chewable tablet 0 11-11 00:00: 00 Yes [id number] 1{tbl} Take 1 tablet by mouth in the morning and 1 tablet at noon and 1 tablet in the evening. Take before meals. [facility] calcium carbonate 200 mg calcium (500 mg) chewable tablet 2022-0 11-11 00:00: 00 Yes [id number] 1{tbl} Take 1 tablet by mouth in the morning and 1 tablet at noon and 1 tablet in the evening. Take before meals. [facility] calcium carbonate 200 mg calcium (500 mg) chewable tablet 11-11 00:00: 00 Yes [id number] 1{tbl} Take 1 tablet by mouth in the morning and 1 tablet at noon and 1 tablet in the evening. Take before meals. [facility] calcium carbonate 200 mg calcium (500 mg) chewable tablet 0 11-11 00:00: 00 Yes [id number] 1{tbl} Take 1 tablet by mouth in the morning and 1 tablet at noon and 1 tablet in the evening. Take before meals. [facility] calcium carbonate 200 mg calcium (500 mg) chewable tablet 0 11-11 00:00: 00 Yes [id number] 1{tbl} Take 1 tablet by mouth in the morning and 1 tablet at noon and 1 tablet in the evening. Take before meals. [facility] calcium carbonate 200 mg calcium (500 mg) chewable tablet 11-11 00:00: 00 Yes [id number] 1{tbl} Take 1 tablet by mouth in the morning and 1 tablet at noon and 1 tablet in the evening. Take before meals. [facility] calcium carbonate 200 mg calcium (500 mg) chewable tablet 11-11 00:00: 00 Yes [id number] 1{tbl} Take 1 tablet by mouth in the morning and 1 tablet at noon and 1 tablet in the evening. Take before meals. [facility] calcium carbonate 200 mg calcium (500 mg) chewable tablet 11-11 00:00: 00 Yes [id number] 1{tbl} Take 1 tablet by mouth in the morning and 1 tablet at noon and 1 tablet in the evening. Take before meals. [facility] calcium carbonate 200 mg calcium (500 mg) chewable tablet 0 11-11 00:00: 00 Yes [id number] 1{tbl} Take 1 tablet by mouth in the morning and 1 tablet at noon and 1 tablet in the evening. Take before meals. [facility] calcium carbonate 200 mg calcium (500 mg) chewable tablet 11-11 00:00: 00 Yes [id number] 1{tbl} Take 1 tablet by mouth in the morning and 1 tablet at noon and 1 tablet in the evening. Take before meals. [facility] calcium carbonate 200 mg calcium (500 mg) chewable tablet 11-11 00:00: 00 Yes [id number] 1{tbl} Take 1 tablet by mouth in the morning and 1 tablet at noon and 1 tablet in the evening. Take before meals. [facility] calcium carbonate 200 mg calcium (500 mg) chewable tablet 11-11 00:00: 00 Yes [id number] 1{tbl} Take 1 tablet by mouth in the morning and 1 tablet at noon and 1 tablet in the evening. Take before meals. [facility] calcium carbonate 200 mg calcium (500 mg) chewable tablet 11-11 00:00: 00 Yes [id number] 1{tbl} Take 1 tablet by mouth in the morning and 1 tablet at noon and 1 tablet in the evening. Take before meals. [facility] calcium carbonate 200 mg calcium (500 mg) chewable tablet 11-11 00:00: 00 Yes [id number] 1{tbl} Take 1 tablet by mouth in the morning and 1 tablet at noon and 1 tablet in the evening. Take before meals. [facility] calcium carbonate 200 mg calcium (500 mg) chewable tablet 11-11 00:00: 00 Yes [id number] 1{tbl} Take 1 tablet by mouth in the morning and 1 tablet at noon and 1 tablet in the evening. Take before meals. [facility] calcium carbonate 200 mg calcium (500 mg) chewable tablet 11-11 00:00: 00 Yes [id number] 1{tbl} Take 1 tablet by mouth in the morning and 1 tablet at noon and 1 tablet in the evening. Take before meals. [facility] calcium carbonate 200 mg calcium (500 mg) chewable tablet 11-11 00:00: 00 Yes [id number] 1{tbl} Take 1 tablet by mouth in the morning and 1 tablet at noon and 1 tablet in the evening. Take before meals. [facility] calcium carbonate 200 mg calcium (500 mg) chewable tablet 11-11 00:00: 00 Yes [id number] 1{tbl} Take 1 tablet by mouth in the morning and 1 tablet at noon and 1 tablet in the evening. Take before meals. [facility] darbepoetin michael in polysorbat (ARANESP, POLYSORBATE ,) 200 mcg/0.4 mL injection 11-11 00:00: 00 Yes [id number] 200ug inject 0.4 mL under the skin weekly. [facility] calcium carbonate 200 mg calcium (500 mg) chewable tablet 11-11 00:00: 00 Yes [id number] 1{tbl} Take 1 tablet by mouth in the morning and 1 tablet at noon and 1 tablet in the evening. Take before meals. [facility] calcium carbonate 200 mg calcium (500 mg) chewable tablet 11-11 00:00: 00 Yes [id number] 1{tbl} Take 1 tablet by mouth in the morning and 1 tablet at noon and 1 tablet in the evening. Take before meals. [facility] calcium carbonate 200 mg calcium (500 mg) chewable tablet 11-11 00:00: 00 Yes [id number] 1{tbl} Take 1 tablet by mouth in the morning and 1 tablet at noon and 1 tablet in the evening. Take before meals. [facility] calcium carbonate 200 mg calcium (500 mg) chewable tablet 11-11 00:00: 00 Yes [id number] 1{tbl} Take 1 tablet by mouth in the morning and 1 tablet at noon and 1 tablet in the evening. Take before meals. [facility] calcium carbonate 200 mg calcium (500 mg) chewable tablet 11-11 00:00: 00 Yes [id number] 1{tbl} Take 1 tablet by mouth in the morning and 1 tablet at noon and 1 tablet in the evening. Take before meals. [facility] calcium carbonate 200 mg calcium (500 mg) chewable tablet 11-11 00:00: 00 Yes [id number] 1{tbl} Take 1 tablet by mouth in the morning and 1 tablet at noon and 1 tablet in the evening. Take before meals. [facility] calcium carbonate 200 mg calcium (500 mg) chewable tablet 11-11 00:00: 00 Yes [id number] 1{tbl} Take 1 tablet by mouth in the morning and 1 tablet at noon and 1 tablet in the evening. Take before meals. [facility] calcium carbonate 200 mg calcium (500 mg) chewable tablet 0 11-11 00:00: 00 Yes [id number] 1{tbl} Take 1 tablet by mouth in the morning and 1 tablet at noon and 1 tablet in the evening. Take before meals. [facility] calcium carbonate 200 mg calcium (500 mg) chewable tablet 0 11-11 00:00: 00 Yes [id number] 1{tbl} Take 1 tablet by mouth in the morning and 1 tablet at noon and 1 tablet in the evening. Take before meals. [facility] calcium carbonate 200 mg calcium (500 mg) chewable tablet 11-11 00:00: 00 Yes [id number] 1{tbl} Take 1 tablet by mouth in the morning and 1 tablet at noon and 1 tablet in the evening. Take before meals. [facility] calcium carbonate 200 mg calcium (500 mg) chewable tablet 11-11 00:00: 00 Yes [id number] 1{tbl} Take 1 tablet by mouth in the morning and 1 tablet at noon and 1 tablet in the evening. Take before meals. [facility] calcium carbonate 200 mg calcium (500 mg) chewable tablet 11-11 00:00: 00 Yes [id number] 1{tbl} Take 1 tablet by mouth in the morning and 1 tablet at noon and 1 tablet in the evening. Take before meals. [facility] calcium carbonate 200 mg calcium (500 mg) chewable tablet 0 11-11 00:00: 00 Yes [id number] 1{tbl} Take 1 tablet by mouth in the morning and 1 tablet at noon and 1 tablet in the evening. Take before meals. [facility] calcium carbonate 200 mg calcium (500 mg) chewable tablet 11-11 00:00: 00 Yes [id number] 1{tbl} Take 1 tablet by mouth in the morning and 1 tablet at noon and 1 tablet in the evening. Take before meals. [facility] calcium carbonate 200 mg calcium (500 mg) chewable tablet 11-11 00:00: 00 Yes [id number] 1{tbl} Take 1 tablet by mouth in the morning and 1 tablet at noon and 1 tablet in the evening. Take before meals. [facility] calcium carbonate 200 mg calcium (500 mg) chewable tablet 11-11 00:00: 00 Yes [id number] 1{tbl} Take 1 tablet by mouth in the morning and 1 tablet at noon and 1 tablet in the evening. Take before meals. [facility] calcium carbonate 200 mg calcium (500 mg) chewable tablet 11-11 00:00: 00 Yes [id number] 1{tbl} Take 1 tablet by mouth in the morning and 1 tablet at noon and 1 tablet in the evening. Take before meals. [facility] calcium carbonate 200 mg calcium (500 mg) chewable tablet 11-11 00:00: 00 Yes [id number] 1{tbl} Take 1 tablet by mouth in the morning and 1 tablet at noon and 1 tablet in the evening. Take before meals. [facility] calcium carbonate 200 mg calcium (500 mg) chewable tablet 11-11 00:00: 00 Yes [id number] 1{tbl} Take 1 tablet by mouth in the morning and 1 tablet at noon and 1 tablet in the evening. Take before meals. [facility] darbepoetin michael in polysorbat (ARANESP, POLYSORBATE ,) 200 mcg/0.4 mL injection 11-11 00:00: 00 12-04 00:00 :00 No [id number] 200ug inject 0.4 mL under the skin weekly. [facility] pravastatin 20 mg tablet 11-04 00:00: 00 Yes [id number] 20mg Take 1 tablet by mouth at bedtime. [facility] pravastatin 20 mg tablet 11-04 00:00: 00 Yes [id number] 20mg Take 1 tablet by mouth at bedtime. [facility] pravastatin 20 mg tablet 2022-0 11-04 00:00: 00 Yes [id number] 20mg Take 1 tablet by mouth at bedtime. [facility] pravastatin 20 mg tablet 2022-0 11-04 00:00: 00 Yes [id number] 20mg Take 1 tablet by mouth at bedtime. [facility] pravastatin 20 mg tablet 2022-0 11-04 00:00: 00 Yes [id number] 20mg Take 1 tablet by mouth at bedtime. [facility] pravastatin 20 mg tablet 3-0 11-04 00:00: 00 Yes [id number] 20mg Take 1 tablet by mouth at bedtime. [facility] pravastatin 20 mg tablet 2022-0 11-04 00:00: 00 Yes [id number] 20mg Take 1 tablet by mouth at bedtime. [facility] pravastatin 20 mg tablet 2022-0 11-04 00:00: 00 Yes [id number] 20mg Take 1 tablet by mouth at bedtime. [facility] pravastatin 20 mg tablet 2022-0 11-04 00:00: 00 Yes [id number] 20mg Take 1 tablet by mouth at bedtime. [facility] pravastatin 20 mg tablet 2022-0 11-04 00:00: 00 Yes [id number] 20mg Take 1 tablet by mouth at bedtime. [facility] pravastatin 20 mg tablet 2022-0 11-04 00:00: 00 Yes [id number] 20mg Take 1 tablet by mouth at bedtime. [facility] pravastatin 20 mg tablet 3-0 11-04 00:00: 00 Yes [id number] 20mg Take 1 tablet by mouth at bedtime. [facility] pravastatin 20 mg tablet 3-0 11-04 00:00: 00 Yes [id number] 20mg Take 1 tablet by mouth at bedtime. [facility] pravastatin 20 mg tablet 3-0 11-04 00:00: 00 Yes [id number] 20mg Take 1 tablet by mouth at bedtime. [facility] pravastatin 20 mg tablet 2022-0 11-04 00:00: 00 Yes [id number] 20mg Take 1 tablet by mouth at bedtime. [facility] pravastatin 20 mg tablet 2022-0 11-04 00:00: 00 Yes [id number] 20mg Take 1 tablet by mouth at bedtime. [facility] pravastatin 20 mg tablet 2022-0 11-04 00:00: 00 Yes [id number] 20mg Take 1 tablet by mouth at bedtime. [facility] pravastatin 20 mg tablet 2022-0 11-04 00:00: 00 Yes [id number] 20mg Take 1 tablet by mouth at bedtime. [facility] pravastatin 20 mg tablet 2022-0 11-04 00:00: 00 Yes [id number] 20mg Take 1 tablet by mouth at bedtime. [facility] pravastatin 20 mg tablet 2022-0 11-04 00:00: 00 Yes [id number] 20mg Take 1 tablet by mouth at bedtime. [facility] pravastatin 20 mg tablet 2022-0 11-04 00:00: 00 Yes [id number] 20mg Take 1 tablet by mouth at bedtime. [facility] pravastatin 20 mg tablet 2022-0 11-04 00:00: 00 Yes [id number] 20mg Take 1 tablet by mouth at bedtime. [facility] pravastatin 20 mg tablet 3-0 11-04 00:00: 00 Yes [id number] 20mg Take 1 tablet by mouth at bedtime. [facility] pravastatin 20 mg tablet 3-0 11-04 00:00: 00 Yes [id number] 20mg Take 1 tablet by mouth at bedtime. [facility] pravastatin 20 mg tablet 3-0 11-04 00:00: 00 Yes [id number] 20mg Take 1 tablet by mouth at bedtime. [facility] pravastatin 20 mg tablet 3-0 11-04 00:00: 00 Yes [id number] 20mg Take 1 tablet by mouth at bedtime. [facility] pravastatin 20 mg tablet 2022-0 11-04 00:00: 00 Yes [id number] 20mg Take 1 tablet by mouth at bedtime. [facility] pravastatin 20 mg tablet 2022-0 11-04 00:00: 00 Yes [id number] 20mg Take 1 tablet by mouth at bedtime. [facility] pravastatin 20 mg tablet 2022-0 11-04 00:00: 00 Yes [id number] 20mg Take 1 tablet by mouth at bedtime. [facility] pravastatin 20 mg tablet 2022-0 11-04 00:00: 00 Yes [id number] 20mg Take 1 tablet by mouth at bedtime. [facility] pravastatin 20 mg tablet 3-0 11-04 00:00: 00 Yes [id number] 20mg Take 1 tablet by mouth at bedtime. [facility] pravastatin 20 mg tablet 2022-0 11-04 00:00: 00 Yes [id number] 20mg Take 1 tablet by mouth at bedtime. [facility] pravastatin 20 mg tablet 2022-0 11-04 00:00: 00 Yes [id number] 20mg Take 1 tablet by mouth at bedtime. [facility] pravastatin 20 mg tablet 2022-0 11-04 00:00: 00 Yes [id number] 20mg Take 1 tablet by mouth at bedtime. [facility] pravastatin 20 mg tablet 2022-0 11-04 00:00: 00 Yes [id number] 20mg Take 1 tablet by mouth at bedtime. [facility] pravastatin 20 mg tablet 2022-0 11-04 00:00: 00 Yes [id number] 20mg Take 1 tablet by mouth at bedtime. [facility] pravastatin 20 mg tablet 3-0 11-04 00:00: 00 Yes [id number] 20mg Take 1 tablet by mouth at bedtime. [facility] pravastatin 20 mg tablet 3-0 11-04 00:00: 00 Yes [id number] 20mg Take 1 tablet by mouth at bedtime. [facility] pravastatin 20 mg tablet 3-0 11-04 00:00: 00 Yes [id number] 20mg Take 1 tablet by mouth at bedtime. [facility] pravastatin 20 mg tablet 2022-0 11-04 00:00: 00 Yes [id number] 20mg Take 1 tablet by mouth at bedtime. [facility] pravastatin 20 mg tablet 2022-0 11-04 00:00: 00 Yes [id number] 20mg Take 1 tablet by mouth at bedtime. [facility] pravastatin 20 mg tablet 2022-0 11-04 00:00: 00 Yes [id number] 20mg Take 1 tablet by mouth at bedtime. [facility] pravastatin 20 mg tablet 2022-0 11-04 00:00: 00 Yes [id number] 20mg Take 1 tablet by mouth at bedtime. [facility] pravastatin 20 mg tablet 2022-0 11-04 00:00: 00 Yes [id number] 20mg Take 1 tablet by mouth at bedtime. [facility] pravastatin 20 mg tablet 2022-0 11-04 00:00: 00 Yes [id number] 20mg Take 1 tablet by mouth at bedtime. [facility] pravastatin 20 mg tablet 2022-0 11-04 00:00: 00 Yes [id number] 20mg Take 1 tablet by mouth at bedtime. [facility] pravastatin 20 mg tablet 2022-0 11-04 00:00: 00 Yes [id number] 20mg Take 1 tablet by mouth at bedtime. [facility] pravastatin 20 mg tablet 3-0 11-04 00:00: 00 Yes [id number] 20mg Take 1 tablet by mouth at bedtime. [facility] pravastatin 20 mg tablet 3-0 11-04 00:00: 00 Yes [id number] 20mg Take 1 tablet by mouth at bedtime. [facility] pravastatin 20 mg tablet 3-0 11-04 00:00: 00 Yes [id number] 20mg Take 1 tablet by mouth at bedtime. [facility] pravastatin 20 mg tablet 3-0 11-04 00:00: 00 Yes [id number] 20mg Take 1 tablet by mouth at bedtime. [facility] pravastatin 20 mg tablet 2022-0 11-04 00:00: 00 Yes [id number] 20mg Take 1 tablet by mouth at bedtime. [facility] pravastatin 20 mg tablet 2022-0 11-04 00:00: 00 Yes [id number] 20mg Take 1 tablet by mouth at bedtime. [facility] pravastatin 20 mg tablet 2022-0 11-04 00:00: 00 Yes [id number] 20mg Take 1 tablet by mouth at bedtime. [facility] pravastatin 20 mg tablet 2022-0 11-04 00:00: 00 Yes [id number] 20mg Take 1 tablet by mouth at bedtime. [facility] pravastatin 20 mg tablet 3-0 11-04 00:00: 00 Yes [id number] 20mg Take 1 tablet by mouth at bedtime. [facility] pravastatin 20 mg tablet 2022-0 11-04 00:00: 00 Yes [id number] 20mg Take 1 tablet by mouth at bedtime. [facility] pravastatin 20 mg tablet 2022-0 11-04 00:00: 00 Yes [id number] 20mg Take 1 tablet by mouth at bedtime. [facility] pravastatin 20 mg tablet 2022-0 11-04 00:00: 00 Yes [id number] 20mg Take 1 tablet by mouth at bedtime. [facility] pravastatin 20 mg tablet 2022-0 11-04 00:00: 00 Yes [id number] 20mg Take 1 tablet by mouth at bedtime. [facility] pravastatin 20 mg tablet 2022-0 11-04 00:00: 00 Yes [id number] 20mg Take 1 tablet by mouth at bedtime. [facility] pravastatin 20 mg tablet 3-0 11-04 00:00: 00 Yes [id number] 20mg Take 1 tablet by mouth at bedtime. [facility] pravastatin 20 mg tablet 3-0 11-04 00:00: 00 Yes [id number] 20mg Take 1 tablet by mouth at bedtime. [facility] pravastatin 20 mg tablet 3-0 11-04 00:00: 00 Yes [id number] 20mg Take 1 tablet by mouth at bedtime. [facility] pravastatin 20 mg tablet 3-0 7-06 00:00: 00 Yes [id number] 20mg Take 1 tablet by mouth at bedtime. [facility] pravastatin 20 mg tablet 2022-0 7-06 00:00: 00 Yes [id number] 20mg Take 1 tablet by mouth at bedtime. [facility] fluconazole 100 mg tablet 3-0 6-10 00:00: 00 Yes [id number] 100mg Take 1 tablet by mouth in the morning. [facility] fluconazole 100 mg tablet 3-0 6-10 00:00: 00 Yes [id number] 100mg Take 1 tablet by mouth in the morning. [facility] fluconazole 100 mg tablet 3-0 6-10 00:00: 00 Yes [id number] 100mg Take 1 tablet by mouth in the morning. [facility] fluconazole 100 mg tablet 3-0 6-10 00:00: 00 Yes [id number] 100mg Take 1 tablet by mouth in the morning. [facility] fluconazole 100 mg tablet 3-0 6-10 00:00: 00 Yes [id number] 100mg Take 1 tablet by mouth in the morning. [facility] fluconazole 100 mg tablet 3-0 6-10 00:00: 00 Yes [id number] 100mg Take 1 tablet by mouth in the morning. [facility] fluconazole 100 mg tablet 3-0 6-10 00:00: 00 Yes [id number] 100mg Take 1 tablet by mouth in the morning. [facility] fluconazole 100 mg tablet 3-0 6-10 00:00: 00 Yes [id number] 100mg Take 1 tablet by mouth in the morning. [facility] fluconazole 100 mg tablet 3-0 6-10 00:00: 00 Yes [id number] 100mg Take 1 tablet by mouth in the morning. [facility] fluconazole 100 mg tablet 3-0 6-10 00:00: 00 Yes [id number] 100mg Take 1 tablet by mouth in the morning. [facility] fluconazole 100 mg tablet 3-0 6-10 00:00: 00 Yes [id number] 100mg Take 1 tablet by mouth in the morning. [facility] fluconazole 100 mg tablet 10-09 00:00: 00 10-08 00:00 :00 No [id number] 100mg Take 1 tablet by mouth in the morning for 4 days. [facility] [place] aspirin 81 mg Cap 3-0 10-08 14:39: 18 Yes Take by mouth. [facility] aspirin 81 mg Cap 2023-0 10-08 14:39: 18 Yes Take by mouth. [facility] aspirin 81 mg Cap 3-0 10-08 14:39: 18 Yes Take by mouth. [facility] aspirin 81 mg Cap 3-0 10-08 14:39: 18 Yes Take by mouth. [facility] [place] aspirin 81 mg Cap 3-0 10-08 14:39: 18 Yes Take by mouth. [facility] aspirin 81 mg Cap 3-0 10-08 14:39: 18 Yes Take by mouth. [facility] [place] aspirin 81 mg Cap 3-0 10-08 14:39: 18 Yes Take by mouth. [facility] aspirin 81 mg Cap 3-0 10-08 14:39: 18 Yes Take by mouth. [facility] [place] aspirin 81 mg Cap 3-0 10-08 14:39: 18 Yes Take by mouth. [facility] [place] aspirin 81 mg Cap 3-0 10-08 14:39: 18 Yes Take by mouth. [facility] ity [facility] [place] aspirin 81 mg Cap 3-0 10-08 14:39: 18 Yes Take by mouth. [facility] ity [facility] aspirin 81 mg Cap 3-0 10-08 14:39: 18 Yes Take by mouth. [facility] ity [facility] aspirin 81 mg Cap 3-0 10-08 14:39: 18 Yes Take by mouth. [facility] ity [facility] aspirin 81 mg Cap 2023-0 10-08 14:39: 18 Yes Take by mouth. [facility] ity [facility] [place] aspirin 81 mg Cap 2023-0 10-08 14:39: 18 Yes Take by mouth. [facility] it[facility] [place] aspirin 81 mg Cap 2023-0 10-08 14:39: 18 Yes Take by mouth. [facility] aspirin 81 mg Cap 10-08 14:39: 18 Yes Take by mouth. [facility] aspirin 81 mg Cap 10-08 14:39: 18 Yes Take by mouth. [facility] aspirin 81 mg Cap 10-08 14:39: 18 Yes Take by mouth. [facility] aspirin 81 mg Cap 10-08 14:39: 18 Yes Take by mouth. [facility] predniSONE (DELTASONE) tablet 10 mg 10-08 14:00: 00 Yes 10mg 10 mg, Oral, DAILY, First dose on Tue10/08/22 at 0900, Until Discontinu ed, Routine [facility] norgestimat e-ethinyl estradioL (VYLIBRA) 0.25-35 mg-mcg per tablet 1 tablet 10-08 14:00: 00 Yes 1{tbl} 1 tablet, Oral, DAILY, First dose on Tue10/08/22 at 0900, Until Discontinu ed, Routine
managing member approving Restricted medication : REYMUNDO NOWAK [facility] aspirin chewable tablet 81 mg 10-08 14:00: 00 Yes 81mg 81 mg, Oral, DAILY, First dose on Tue10/08/22 at 0900, Until Discontinu ed [facility] sodium bicarbonate (ANTACID (SODIUM BICARBONATE )) tablet 1,300 mg 10-08 13:00: 00 Yes 1300mg 1,300 mg, Oral, BID, First dose (after last modificati on) on Tue10/08/22 at 0800, Until Discontinu ed, Routine [facility] acyclovir (ZOVIRAX) tablet 400 mg 10-08 12:15: 00 Yes 400mg 400 mg, Oral, Q8H, First dose on Tue10/08/22 at 0715, Until Discontinu ed, [facility] diphenhydrA MINE (BENADRYL) injection 25 mg 10-08 11:14: 00 10-08 11:24 :00 No 25mg 25 mg, Intravenou s, ONCE, 1 dose, On Tue10/08/22 at 0615, Routine [facility] pravastatin (PRAVACHOL) tablet 20 mg 10-08 02:00: 00 Yes 20mg 20 mg, Oral, QHS, First dose on Tue10/07/22 at 2100, Until Discontinu ed, Routine [facility] guanFACINE (TENEX) tablet 1 mg 10-08 02:00: 00 Yes 1mg 1 mg, Oral, QHS, First dose on Tue10/07/22 at 2100, Until [facility]continu ed [facility] 5,000 Units 10-08 01:00: 00 Yes 5000U 5,000 Units, Subcutaneo us, Q12H, First dose on Tue10/07/22 at 1999, Until Discontinu ed, Routine [facility] famotidine (PEPCID AC) tablet 20 mg 10-08 01:00: 00 Yes 20mg 20 mg, Oral, BID, First dose on Tue10/07/22 at 2000, Until Discontinu ed [facility] my[facility] (MYFORTIC) EC tablet 360 mg 10-08 01:00: 00 Yes 360mg 360 mg, Oral, Q12H, First dose on Tue10/07/22 at 1999, Until Discontinu ed, Routine
managing member approving Restricted medication : REYMUNDO NOWAK [facility] diltiazem XR (DILT-XR) capsule 240 mg 10-08 01:00: 00 Yes 240mg 240 mg, Oral, BID, First dose on Tue10/07/22 at 1999, Until Discontinu ed, [facility] b[facility]ate (ANTACID (SODIUM BICARBONATE )) tablet 650 mg 10-08 01:00: 00 10-08 11:48 :36 No 650mg 650 mg, Oral, BID, First dose on Tue10/07/22 at 1999, Until Discontinu ed, Routine [facility] acyclovir 400 mg tablet 10-08 00:00: 00 Yes [id number] 400mg Take 1 tablet by mouth every 8 (eight) hours. [facility] sodium bicarbonate 650 mg tablet 2022-0 10-08 00:00: 00 Yes [id number] 1300mg Take 2 tablets by mouth in the morning and 2 tablets in the evening. [facility] acyclovir 400 mg tablet 0 10-08 00:00: 00 Yes [id number] 400mg Take 1 tablet by mouth every 8 (eight) hours. [facility] sodium bicarbonate 650 mg tablet 0 10-08 00:00: 00 Yes [id number] 1300mg Take 2 tablets by mouth in the morning and 2 tablets in the evening. [facility] acyclovir 400 mg tablet 0 10-08 00:00: 00 Yes [id number] 400mg Take 1 tablet by mouth every 8 (eight) hours. [facility] sodium bicarbonate 650 mg tablet 2022-0 10-08 00:00: 00 Yes [id number] 1300mg Take 2 tablets by mouth in the morning and 2 tablets in the evening. [facility] acyclovir 400 mg tablet 2022-0 10-08 00:00: 00 Yes [id number] 400mg Take 1 tablet by mouth every 8 (eight) hours. [facility] sodium bicarbonate 650 mg tablet 2022-0 10-08 00:00: 00 Yes [id number] 1300mg Take 2 tablets by mouth in the morning and 2 tablets in the evening. [facility] acyclovir 400 mg tablet 2022-0 10-08 00:00: 00 Yes [id number] 400mg Take 1 tablet by mouth every 8 (eight) hours. [facility] sodium bicarbonate 650 mg tablet 2022-0 10-08 00:00: 00 Yes [id number] 1300mg Take 2 tablets by mouth in the morning and 2 tablets in the evening. [facility] acyclovir 400 mg tablet 2022-0 10-08 00:00: 00 Yes [id number] 400mg Take 1 tablet by mouth every 8 (eight) hours. [facility] sodium bicarbonate 650 mg tablet 2022-0 10-08 00:00: 00 Yes [id number] 1300mg Take 2 tablets by mouth in the morning and 2 tablets in the evening. [facility] acyclovir 400 mg tablet 3-0 10-08 00:00: 00 Yes [id number] 400mg Take 1 tablet by mouth every 8 (eight) hours. [facility] sodium bicarbonate 650 mg tablet 2022-0 10-08 00:00: 00 Yes [id number] 1300mg Take 2 tablets by mouth in the morning and 2 tablets in the evening. [facility] acyclovir 400 mg tablet 2022-0 10-08 00:00: 00 Yes [id number] 400mg Take 1 tablet by mouth every 8 (eight) hours. [facility] sodium bicarbonate 650 mg tablet 2022-0 10-08 00:00: 00 Yes [id number] 1300mg Take 2 tablets by mouth in the morning and 2 tablets in the evening. [facility] acyclovir 400 mg tablet 2022-0 10-08 00:00: 00 Yes [id number] 400mg Take 1 tablet by mouth every 8 (eight) hours. [facility] sodium bicarbonate 650 mg tablet 2022-0 10-08 00:00: 00 Yes [id number] 1300mg Take 2 tablets by mouth in the morning and 2 tablets in the evening. [facility] acyclovir 400 mg tablet 2022-0 10-08 00:00: 00 Yes [id number] 400mg Take 1 tablet by mouth every 8 (eight) hours. [facility] sodium bicarbonate 650 mg tablet 3-0 10-08 00:00: 00 Yes [id number] 1300mg Take 2 tablets by mouth in the morning and 2 tablets in the evening. [facility] acyclovir 400 mg tablet 3-0 10-08 00:00: 00 Yes [id number] 400mg Take 1 tablet by mouth every 8 (eight) hours. [facility] sodium bicarbonate 650 mg tablet 3-0 10-08 00:00: 00 Yes [id number] 1300mg Take 2 tablets by mouth in the morning and 2 tablets in the evening. [facility] sodium bicarbonate 650 mg tablet 3-0 10-08 00:00: 00 Yes [id number] 1300mg Take 2 tablets by mouth in the morning and 2 tablets in the evening. [facility] sodium bicarbonate 650 mg tablet 3-0 10-08 00:00: 00 Yes [id number] 1300mg Take 2 tablets by mouth in the morning and 2 tablets in the evening. [facility] sodium bicarbonate 650 mg tablet 2022-0 10-08 00:00: 00 Yes [id number] 1300mg Take 2 tablets by mouth in the morning and 2 tablets in the evening. [facility] sodium bicarbonate 650 mg tablet 2022-0 10-08 00:00: 00 Yes [id number] 1300mg Take 2 tablets by mouth in the morning and 2 tablets in the evening. [facility] sodium bicarbonate 650 mg tablet 2022-0 10-08 00:00: 00 Yes [id number] 1300mg Take 2 tablets by mouth in the morning and 2 tablets in the evening. [facility] sodium bicarbonate 650 mg tablet 2022-0 10-08 00:00: 00 Yes [id number] 1300mg Take 2 tablets by mouth in the morning and 2 tablets in the evening. [facility] sodium bicarbonate 650 mg tablet 2022-0 10-08 00:00: 00 Yes [id number] 1300mg Take 2 tablets by mouth in the morning and 2 tablets in the evening. [facility] sodium bicarbonate 650 mg tablet 2022-0 10-08 00:00: 00 Yes [id number] 1300mg Take 2 tablets by mouth in the morning and 2 tablets in the evening. [facility] sodium bicarbonate 650 mg tablet 3-0 10-08 00:00: 00 Yes [id number] 1300mg Take 2 tablets by mouth in the morning and 2 tablets in the evening. [facility] sodium bicarbonate 650 mg tablet 3-0 10-08 00:00: 00 01-24 00:00 :00 No [id number] 1300mg Take 2 tablets by mouth in the morning and 2 tablets in the evening. [facility] sodium bicarbonate 650 mg tablet 3-0 10-08 00:00: 00 01-24 00:00 :00 No [id number] 1300mg Take 2 tablets by mouth in the morning and 2 tablets in the evening. [facility] sodium bicarbonate 650 mg tablet 10-08 00:00: 00 01-24 00:00 :00 No [id number] 1300mg Take 2 tablets by mouth in the morning and 2 tablets in the evening. [facility] acyclovir 400 mg tablet 10-08 00:00: 00 10-08 00:00 :00 No [id number] 400mg Take 1 tablet by mouth every 8 (eight) hours. [facility] sodium bicarbonate 650 mg tablet 10-08 00:00: 00 10-08 00:00 :00 No [id number] 1300mg Take 2 tablets by mouth in the morning and 2 tablets in the evening. [facility] nystatin (NILSTAT) 100,000 unit/mL suspension 1,000,000 Units 10-07 21:00: 00 Yes 10mL 1,000,000 Units (10 mL), Oral, QID, First dose on Tue10/07/22 at 1600, Until Discontinu ed, [facility] fluconazole (DIFLUCAN) tablet 100 mg 10-07 21:00: 00 10-14 13:59 :00 No 100mg 100 mg, Oral, DAILY, 7 doses, First dose on Tue10/07/22 at 1600, Last dose on Tue10/13/22 at 0900, [facility]
Re ason for Anti-Infec tive: Documented Infection< br>Documen josué Infection Site: HEENT
D uration of Therapy: 7 days [facility] diphenhydrA MINE (BENADRYL) tablet 25 mg 10-07 17:45: 00 10-07 20:12 :00 No 25mg 25 mg, Oral, ONCE, 1 dose, On Tue10/07/22 at 1245, Routine [facility] acetaminoph en (TYLENOL) tablet 650 mg 10-07 17:27: 23 Yes 650mg 650 mg, Oral, Q6HPRN, Starting on Tue10/07/22 at 1227, Until Discontinu ed, Routine, Pain (scale 1-3) [facility] darbepoetin michael in polysorbat (ARANESP, POLYSORBATE ,) 200 mcg/0.4 mL injection 0 5-15 00:00: 00 12-01 04:59 :00 No [id number] 9101 200ug inject 0.4 mL under the skin weekly for 12 doses. [facility] darbepoetin michael in polysorbat (ARANESP, POLYSORBATE ,) 200 mcg/0.4 mL injection 5-15 00:00: 00 12-01 04:59 :00 No [id number] 9101 200ug inject 0.4 mL under the skin weekly for 12 doses. [facility] darbepoetin michael in polysorbat (ARANESP, POLYSORBATE ,) 200 mcg/0.4 mL injection 15 00:00: 00 12-01 04:59 :00 No [id number] 9101 200ug inject 0.4 mL under the skin weekly for 12 doses. [facility] darbepoetin michael in polysorbat (ARANESP, POLYSORBATE ,) 200 mcg/0.4 mL injection -15 00:00: 00 12-01 04:59 :00 No [id number] 9101 200ug inject 0.4 mL under the skin weekly for 12 doses. [facility] darbepoetin michael in polysorbat (ARANESP, POLYSORBATE ,) 200 mcg/0.4 mL injection 0 5-15 00:00: 00 12-01 04:59 :00 No [id number] 9101 200ug inject 0.4 mL under the skin weekly for 12 doses. [facility] darbepoetin michael in polysorbat (ARANESP, POLYSORBATE ,) 200 mcg/0.4 mL injection 5-15 00:00: 00 12-01 04:59 :00 No [id number] 9101 200ug inject 0.4 mL under the skin weekly for 12 doses. [facility] darbepoetin michael in polysorbat (ARANESP, POLYSORBATE ,) 200 mcg/0.4 mL injection 2022-0 5-15 00:00: 00 12-01 04:59 :00 No [id number] 9101 200ug inject 0.4 mL under the skin weekly for 12 doses. [facility] darbepoetin michael in polysorbat (ARANESP, POLYSORBATE ,) 200 mcg/0.4 mL injection 2022-0 5-15 00:00: 00 12-01 04:59 :00 No [id number] 9101 200ug inject 0.4 mL under the skin weekly for 12 doses. [facility] darbepoetin michael in polysorbat (ARANESP, POLYSORBATE ,) 200 mcg/0.4 mL injection 0 5-15 00:00: 00 12-01 04:59 :00 No [id number] 9101 200ug inject 0.4 mL under the skin weekly for 12 doses. [facility] darbepoetin michael in polysorbat (ARANESP, POLYSORBATE ,) 200 mcg/0.4 mL injection 2022-0 5-15 00:00: 00 12-01 04:59 :00 No [id number] 9101 200ug inject 0.4 mL under the skin weekly for 12 doses. [facility] darbepoetin michael in polysorbat (ARANESP, POLYSORBATE ,) 200 mcg/0.4 mL injection 2022-0 5-15 00:00: 00 12-01 04:59 :00 No [id number] 9101 200ug inject 0.4 mL under the skin weekly for 12 doses. [facility] darbepoetin michael in polysorbat (ARANESP, POLYSORBATE ,) 200 mcg/0.4 mL injection 2022-0 5-15 00:00: 00 12-01 04:59 :00 No [id number] 9101 200ug inject 0.4 mL under the skin weekly for 12 doses. [facility] darbepoetin michael in polysorbat (ARANESP, POLYSORBATE ,) 200 mcg/0.4 mL injection 2022-0 5-15 00:00: 00 12-01 04:59 :00 No [id number] 9101 200ug inject 0.4 mL under the skin weekly for 12 doses. [facility] darbepoetin michael in polysorbat (ARANESP, POLYSORBATE ,) 200 mcg/0.4 mL injection 0 5-15 00:00: 00 12-01 04:59 :00 No [id number] 9101 200ug inject 0.4 mL under the skin weekly for 12 doses. [facility] darbepoetin michael in polysorbat (ARANESP, POLYSORBATE ,) 200 mcg/0.4 mL injection 0 5-15 00:00: 00 12-01 04:59 :00 No [id number] 9101 200ug inject 0.4 mL under the skin weekly for 12 doses. [facility] darbepoetin michael in polysorbat (ARANESP, POLYSORBATE ,) 200 mcg/0.4 mL injection 0 5-15 00:00: 00 12-01 04:59 :00 No [id number] 9101 200ug inject 0.4 mL under the skin weekly for 12 doses. [facility] darbepoetin michael in polysorbat (ARANESP, POLYSORBATE ,) 200 mcg/0.4 mL injection 0 5-15 00:00: 00 12-01 04:59 :00 No [id number] 9101 200ug inject 0.4 mL under the skin weekly for 12 doses. [facility] darbepoetin michael in polysorbat (ARANESP, POLYSORBATE ,) 200 mcg/0.4 mL injection 0 5-15 00:00: 00 12-01 04:59 :00 No [id number] 9101 200ug inject 0.4 mL under the skin weekly for 12 doses. [facility] darbepoetin michael in polysorbat (ARANESP, POLYSORBATE ,) 200 mcg/0.4 mL injection 2022-0 5-15 00:00: 00 12-01 04:59 :00 No [id number] 9101 200ug inject 0.4 mL under the skin weekly for 12 doses. [facility] aspirin 81 mg Cap 3-0 09-09 15:55: 09 Yes Take by mouth. [facility] aspirin 81 mg Cap 3-0 09-09 15:55: 09 Yes Take by mouth. [facility] aspirin 81 mg Cap 3-0 09-09 15:55: 09 Yes Take by mouth. [facility] aspirin 81 mg Cap 3-0 09-09 15:55: 09 Yes Take by mouth. [facility] aspirin 81 mg Cap 3-0 09-09 15:55: 09 Yes Take by mouth. [facility] aspirin 81 mg Cap 2022-0 09-09 15:55: 09 Yes Take by mouth. [facility] aspirin 81 mg Cap 2022-0 09-09 15:55: 09 Yes Take by mouth. [facility] aspirin 81 mg Cap 2022-0 09-09 15:55: 09 Yes Take by mouth. [facility] aspirin 81 mg Cap 3-0 09-09 15:55: 09 Yes Take by mouth. [facility] aspirin 81 mg Cap 2022-0 09-09 15:55: 09 Yes Take by mouth. [facility] aspirin 81 mg Cap 3-0 09-09 15:55: 09 Yes Take by mouth. [facility] predniSONE (DELTASONE) tablet 10 mg 09-09 14:00: 00 Yes 10mg 10 mg, Oral, DAILY, First dose on Tue09/09/22 at 0900, Until Discontinu ed, Routine [facility] mycophenola te sodium (MYFORTIC) EC tablet 720 mg 09-09 14:00: 00 Yes 720mg 720 mg, Oral, QAM, First dose on Tue09/09/22 at 0900, Until Discontinu ed, Routine
managing member approving Restricted medication : MAURICE LIM [facility] norgestimat e-ethinyl estradioL (VYLIBRA) 0.25-35 mg-mcg per tablet 1 tablet 09-09 14:00: 00 Yes 1{tbl} 1 tablet, Oral, DAILY, First dose on Tue09/09/22 at 0900, Until Discontinu ed, Routine
managing member approving Restricted medication : MAURICE LIM [facility] aspirin chewable tablet 81 mg 09-09 14:00: 00 Yes 81mg 81 mg, Oral, DAILY, First dose on Tue09/09/22 at 0900, Until Discontinu ed [facility] KCL (KLOR-CON M20) tablet 40 mEq 09-09 13:00: 00 09-09 14:19 :00 No 40meq 40 mEq, Oral, ONCE, 1 dose, On Ijeoma 09/09/22 at 0800, Routine [facility] magnesium sulfate in water 2 gram/50 mL (4 %) infusion 2 g 09-09 13:00: 00 09-09 15:19 :00 No 2g 2 g, IV Piggyback, Administer over 60 Minutes, ONCE, 1 dose, On Ijeoma 09/09/22 at 0800, Routine [facility] mycophenola te sodium (MYFORTIC) EC tablet 360 mg 09-09 02:00: 00 Yes 360mg 360 mg, Oral, QHS, First dose on Tue09/08/22 at 2100, Until Discontinu ed, Routine
managing member approving Restricted medication : MAURICE LIM [facility] pravastatin (PRAVACHOL) tablet 20 mg 09-09 02:00: 00 Yes 20mg 20 mg, Oral, QHS, First dose on Tue09/08/22 at 2100, Until Discontinu ed, Routine [facility] guanFACINE (TENEX) tablet 2 mg 09-09 02:00: 00 Yes 2mg 2 mg, Oral, QHS, First dose on Tue09/08/22 at 2100, Until Discontinu ed [facility] sodium bicarbonate (ANTACID (SODIUM BICARBONATE )) tablet 650 mg 09-09 01:00: 00 Yes 650mg 650 mg, Oral, BID, First dose on Tue09/08/22 at 1999, Until Discontinu ed, Routine [facility] famotidine (PEPCID AC) tablet 20 mg 09-09 01:00: 00 Yes 20mg 20 mg, Oral, BID, First dose on Tue09/08/22 at 1999, Until Discontinu ed [facility] diltiazem XR (DILT-XR) capsule 240 mg 09-09 01:00: 00 Yes 240mg 240 mg, Oral, BID, First dose on Tue09/08/22 at 1999, Until Discontinu ed, Routine [facility] darbepoetin michael-polyso rbate (ARANESP, POLYSORBATE ,) 100 mcg/0.5 mL injection 09-09 00:00: 00 Yes [id number] 200ug inject 1 mL under the skin weekly. [facility] darbepoetin michael-polyso rbate (ARANESP, POLYSORBATE ,) 100 mcg/0.5 mL injection 09-09 00:00: 00 Yes [id number] 9101 200ug inject 1 mL under the skin weekly. [facility] darbepoetin michael-polyso rbate (ARANESP, POLYSORBATE ,) 100 mcg/0.5 mL injection 09-09 00:00: 00 09-13 00:00 :00 No [id number] 9101 200ug inject 1 mL under the skin weekly. [facility] KCL (KLOR-CON M20) tablet 40 mEq 09-08 19:45: 00 09-08 19:28 :00 No 40meq 40 mEq, Oral, ONCE, 1 dose, On Tue09/08/22 at 1445, Routine [facility] magnesium oxide (MAG-OX 400) tablet 400 mg 09-08 19:00: 00 09-08 19:28 :00 No 400mg 400 mg, Oral, ONCE, 1 dose, On Tue09/08/22 at 1400, Routine [facility] diphenhydrA MINE (BENADRYL) tablet 25 mg 09-08 18:15: 00 09-09 02:58 :00 No 25mg 25 mg, Oral, ONCE, 1 dose, On Tue09/08/22 at 1315, Routine [facility] diphenhydrA MINE (BENADRYL) tablet 25 mg 09-08 17:30: 00 09-08 20:16 :00 No 25mg 25 mg, Oral, ONCE, 1 dose, On Tue09/08/22 at 1230, Routine [facility] ondansetron (ZOFRAN) tablet 8 mg 09-08 17:09: 39 Yes 8mg 8 mg, Oral, Q8HPRN, Starting on Tue09/08/22 at 1209, Until Discontinu ed, Routine, Nausea and Vomiting (N/V) [facility] ARTIFICIAL TEARS,DEXT7 0-HYPRO, OPHTHALMIC 09-08 12:13: 47 09-08 00:00 :[address] in each eye. [facility] ondansetron 8 mg tablet 08-28 00:00: 00 Yes [id number] 8mg Take 1 tablet by mouth every 8 (eight) hours as needed for Nausea and Vomiting (N/V). [facility] ondansetron 8 mg tablet 08-28 00:00: 00 Yes [id number] 8mg Take 1 tablet by mouth every 8 (eight) hours as needed for Nausea and Vomiting (N/V). [facility] ondansetron 8 mg tablet 08-28 00:00: 00 Yes [id number] 8mg Take 1 tablet by mouth every 8 (eight) hours as needed for Nausea and Vomiting (N/V). [facility] ondansetron 8 mg tablet 0 08-28 00:00: 00 Yes [id number] 8mg Take 1 tablet by mouth every 8 (eight) hours as needed for Nausea and Vomiting (N/V). [facility] ondansetron 8 mg tablet 08-28 00:00: 00 Yes [id number] 8mg Take 1 tablet by mouth every 8 (eight) hours as needed for Nausea and Vomiting (N/V). [facility] ondansetron 8 mg tablet 3-0 08-28 00:00: 00 Yes [id number] 8mg Take 1 tablet by mouth every 8 (eight) hours as needed for Nausea and Vomiting (N/V). [facility] ondansetron 8 mg tablet 3-0 08-28 00:00: 00 Yes [id number] 8mg Take 1 tablet by mouth every 8 (eight) hours as needed for Nausea and Vomiting (N/V). [facility] ondansetron 8 mg tablet 2022-0 08-28 00:00: 00 Yes [id number] 8mg Take 1 tablet by mouth every 8 (eight) hours as needed for Nausea and Vomiting (N/V). [facility] ondansetron 8 mg tablet 2022-0 08-28 00:00: 00 Yes [id number] 8mg Take 1 tablet by mouth every 8 (eight) hours as needed for Nausea and Vomiting (N/V). [facility] ondansetron 8 mg tablet 2022-0 08-28 00:00: 00 Yes [id number] 8mg Take 1 tablet by mouth every 8 (eight) hours as needed for Nausea and Vomiting (N/V). [facility] ondansetron 8 mg tablet 2022-0 08-28 00:00: 00 Yes [id number] 8mg Take 1 tablet by mouth every 8 (eight) hours as needed for Nausea and Vomiting (N/V). [facility] ondansetron 8 mg tablet 2022-0 08-28 00:00: 00 Yes [id number] 8mg Take 1 tablet by mouth every 8 (eight) hours as needed for Nausea and Vomiting (N/V). [facility] ondansetron 8 mg tablet 3-0 29 00:00: 00 Yes [id number] 8mg Take 1 tablet by mouth every 8 (eight) hours as needed for Nausea and Vomiting (N/V). [facility] ondansetron 8 mg tablet 3-0 29 00:00: 00 Yes [id number] 8mg Take 1 tablet by mouth every 8 (eight) hours as needed for Nausea and Vomiting (N/V). [facility] ondansetron 8 mg tablet 3-0 08-28 00:00: 00 Yes [id number] 8mg Take 1 tablet by mouth every 8 (eight) hours as needed for Nausea and Vomiting (N/V). [facility] ondansetron 8 mg tablet 2022-0 08-28 00:00: 00 Yes [id number] 8mg Take 1 tablet by mouth every 8 (eight) hours as needed for Nausea and Vomiting (N/V). [facility] ondansetron 8 mg tablet 2022-0 08-28 00:00: 00 Yes [id number] 8mg Take 1 tablet by mouth every 8 (eight) hours as needed for Nausea and Vomiting (N/V). [facility] ondansetron 8 mg tablet 2022-0 08-28 00:00: 00 Yes [id number] 8mg Take 1 tablet by mouth every 8 (eight) hours as needed for Nausea and Vomiting (N/V). [facility] ondansetron 8 mg tablet 2022-0 08-28 00:00: 00 Yes [id number] 8mg Take 1 tablet by mouth every 8 (eight) hours as needed for Nausea and Vomiting (N/V). [facility] ondansetron 8 mg tablet 2022-0 08-28 00:00: 00 Yes [id number] 8mg Take 1 tablet by mouth every 8 (eight) hours as needed for Nausea and Vomiting (N/V). [facility] ondansetron 8 mg tablet 2022-0 08-28 00:00: 00 Yes [id number] 8mg Take 1 tablet by mouth every 8 (eight) hours as needed for Nausea and Vomiting (N/V). [facility] ondansetron 8 mg tablet 3-0 08-28 00:00: 00 Yes [id number] 8mg Take 1 tablet by mouth every 8 (eight) hours as needed for Nausea and Vomiting (N/V). [facility] ondansetron 8 mg tablet 3-0 08-28 00:00: 00 Yes [id number] 8mg Take 1 tablet by mouth every 8 (eight) hours as needed for Nausea and Vomiting (N/V). [facility] ondansetron 8 mg tablet 3-0 08-28 00:00: 00 Yes [id number] 8mg Take 1 tablet by mouth every 8 (eight) hours as needed for Nausea and Vomiting (N/V). [facility] ondansetron 8 mg tablet 3-0 08-28 00:00: 00 Yes [id number] 8mg Take 1 tablet by mouth every 8 (eight) hours as needed for Nausea and Vomiting (N/V). [facility] ondansetron 8 mg tablet 2022-0 08-28 00:00: 00 Yes [id number] 8mg Take 1 tablet by mouth every 8 (eight) hours as needed for Nausea and Vomiting (N/V). [facility] ondansetron 8 mg tablet 2022-0 08-28 00:00: 00 Yes [id number] 8mg Take 1 tablet by mouth every 8 (eight) hours as needed for Nausea and Vomiting (N/V). [facility] ondansetron 8 mg tablet 2022-0 08-28 00:00: 00 Yes [id number] 8mg Take 1 tablet by mouth every 8 (eight) hours as needed for Nausea and Vomiting (N/V). [facility] ondansetron 8 mg tablet 2022-0 08-28 00:00: 00 Yes [id number] 8mg Take 1 tablet by mouth every 8 (eight) hours as needed for Nausea and Vomiting (N/V). [facility] ondansetron 8 mg tablet 2022-0 08-28 00:00: 00 Yes [id number] 8mg Take 1 tablet by mouth every 8 (eight) hours as needed for Nausea and Vomiting (N/V). [facility] ondansetron 8 mg tablet 3-0 29 00:00: 00 Yes [id number] 8mg Take 1 tablet by mouth every 8 (eight) hours as needed for Nausea and Vomiting (N/V). [facility] ondansetron 8 mg tablet 3-0 29 00:00: 00 Yes [id number] 8mg Take 1 tablet by mouth every 8 (eight) hours as needed for Nausea and Vomiting (N/V). [facility] ondansetron 8 mg tablet 08-28 00:00: 00 Yes [id number] 8mg Take 1 tablet by mouth every 8 (eight) hours as needed for Nausea and Vomiting (N/V). [facility] ondansetron 8 mg tablet 08-28 00:00: 00 Yes [id number] 8mg Take 1 tablet by mouth every 8 (eight) hours as needed for Nausea and Vomiting (N/V). [facility] ondansetron 8 mg tablet 08-28 00:00: 00 01-24 00:00 :00 No [id number] 8mg Take 1 tablet by mouth every 8 (eight) hours as needed for Nausea and Vomiting (N/V). [facility] ondansetron 8 mg tablet 08-28 00:00: 00 01-24 00:00 :00 No [id number] 8mg Take 1 tablet by mouth every 8 (eight) hours as needed for Nausea and Vomiting (N/V). [facility] ondansetron 8 mg tablet 08-28 00:00: 00 01-24 00:00 :00 No [id number] 8mg Take 1 tablet by mouth every 8 (eight) hours as needed for Nausea and Vomiting (N/V). [facility] sodium bicarbonate 650 mg tablet 08-24 00:00: 00 Yes [id number] 650mg Take 1 tablet by mouth in the morning and 1 tablet in the evening. [facility] pravastatin 20 mg tablet 0 08-24 00:00: 00 Yes [id number] 20mg Take 1 tablet by mouth at bedtime. [facility] sodium bicarbonate 650 mg tablet 0 08-24 00:00: 00 Yes [id number] 650mg Take 1 tablet by mouth in the morning and 1 tablet in the evening. [facility] pravastatin 20 mg tablet 2022-0 08-24 00:00: 00 Yes [id number] 20mg Take 1 tablet by mouth at bedtime. [facility] sodium bicarbonate 650 mg tablet 3-0 4-25 00:00: 00 Yes [id number] 650mg Take 1 tablet by mouth in the morning and 1 tablet in the evening. [facility] pravastatin 20 mg tablet 3-0 4-25 00:00: 00 Yes [id number] 20mg Take 1 tablet by mouth at bedtime. [facility] sodium bicarbonate 650 mg tablet 3-0 4-25 00:00: 00 Yes [id number] 650mg Take 1 tablet by mouth in the morning and 1 tablet in the evening. [facility] pravastatin 20 mg tablet 3-0 4-25 00:00: 00 Yes [id number] 20mg Take 1 tablet by mouth at bedtime. [facility] sodium bicarbonate 650 mg tablet 3-0 4-25 00:00: 00 Yes [id number] 650mg Take 1 tablet by mouth in the morning and 1 tablet in the evening. [facility] pravastatin 20 mg tablet 3-0 4-25 00:00: 00 Yes [id number] 20mg Take 1 tablet by mouth at bedtime. [facility] sodium bicarbonate 650 mg tablet 3-0 4-25 00:00: 00 Yes [id number] 650mg Take 1 tablet by mouth in the morning and 1 tablet in the evening. [facility] pravastatin 20 mg tablet 3-0 4-25 00:00: 00 Yes [id number] 20mg Take 1 tablet by mouth at bedtime. [facility] sodium bicarbonate 650 mg tablet 3-0 4-25 00:00: 00 Yes [id number] 650mg Take 1 tablet by mouth in the morning and 1 tablet in the evening. [facility] pravastatin 20 mg tablet 3-0 4-25 00:00: 00 Yes [id number] 20mg Take 1 tablet by mouth at bedtime. [facility] sodium bicarbonate 650 mg tablet 3-0 4-25 00:00: 00 Yes [id number] 650mg Take 1 tablet by mouth in the morning and 1 tablet in the evening. [facility] pravastatin 20 mg tablet 3-0 4-25 00:00: 00 Yes [id number] 20mg Take 1 tablet by mouth at bedtime. [facility] sodium bicarbonate 650 mg tablet 3-0 4-25 00:00: 00 Yes [id number] 650mg Take 1 tablet by mouth in the morning and 1 tablet in the evening. [facility] pravastatin 20 mg tablet 3-0 4-25 00:00: 00 Yes [id number] 20mg Take 1 tablet by mouth at bedtime. [facility] sodium bicarbonate 650 mg tablet 3-0 4-25 00:00: 00 Yes [id number] 650mg Take 1 tablet by mouth in the morning and 1 tablet in the evening. [facility] pravastatin 20 mg tablet 3-0 4-25 00:00: 00 Yes [id number] 20mg Take 1 tablet by mouth at bedtime. [facility] sodium bicarbonate 650 mg tablet 3-0 4-25 00:00: 00 Yes [id number] 650mg Take 1 tablet by mouth in the morning and 1 tablet in the evening. [facility] pravastatin 20 mg tablet 3-0 4-25 00:00: 00 Yes [id number] 20mg Take 1 tablet by mouth at bedtime. [facility] sodium bicarbonate 650 mg tablet 3-0 4-25 00:00: 00 Yes [id number] 650mg Take 1 tablet by mouth in the morning and 1 tablet in the evening. [facility] pravastatin 20 mg tablet 3-0 4-25 00:00: 00 Yes [id number] 20mg Take 1 tablet by mouth at bedtime. [facility] sodium bicarbonate 650 mg tablet 3-0 4-25 00:00: 00 Yes [id number] 650mg Take 1 tablet by mouth in the morning and 1 tablet in the evening. [facility] pravastatin 20 mg tablet 3-0 4-25 00:00: 00 Yes [id number] 20mg Take 1 tablet by mouth at bedtime. [facility] sodium bicarbonate 650 mg tablet 3-0 4-25 00:00: 00 Yes [id number] 650mg Take 1 tablet by mouth in the morning and 1 tablet in the evening. [facility] pravastatin 20 mg tablet 2022-0 4-25 00:00: 00 Yes [id number] 20mg Take 1 tablet by mouth at bedtime. [facility] sodium bicarbonate 650 mg tablet 2022-0 4-25 00:00: 00 Yes [id number] 650mg Take 1 tablet by mouth in the morning and 1 tablet in the evening. [facility] pravastatin 20 mg tablet 2022-0 4-25 00:00: 00 Yes [id number] 20mg Take 1 tablet by mouth at bedtime. [facility] sodium bicarbonate 650 mg tablet 2022-0 4-25 00:00: 00 Yes [id number] 650mg Take 1 tablet by mouth in the morning and 1 tablet in the evening. [facility] pravastatin 20 mg tablet 2022-0 4-25 00:00: 00 Yes [id number] 20mg Take 1 tablet by mouth at bedtime. [facility] pravastatin 20 mg tablet 2022-0 4-25 00:00: 00 Yes [id number] 20mg Take 1 tablet by mouth at bedtime. [facility] pravastatin 20 mg tablet 2022-0 425 00:00: 00 Yes [id number] 20mg Take 1 tablet by mouth at bedtime. [facility] pravastatin 20 mg tablet 2022-0 4-25 00:00: 00 Yes [id number] 20mg Take 1 tablet by mouth at bedtime. [facility] pravastatin 20 mg tablet 2022-0 425 00:00: 00 Yes [id number] 20mg Take 1 tablet by mouth at bedtime. [facility] pravastatin 20 mg tablet 2022-0 4-25 00:00: 00 Yes [id number] 20mg Take 1 tablet by mouth at bedtime. [facility] pravastatin 20 mg tablet 2022-0 4-25 00:00: 00 11-03 00:00 :00 No [id number] 20mg Take 1 tablet by mouth at bedtime. [facility] sodium bicarbonate 650 mg tablet 2022-0 4-25 00:00: 00 10-08 00:00 :00 No [id number] 650mg Take 1 tablet by mouth in the morning and 1 tablet in the evening. [facility] pravastatin 20 mg tablet 08-24 00:00: 00 08-24 00:00 :00 No [id number] 20mg Take 1 tablet by mouth at bedtime. [facility] sodium citrate-cit karan acid 500-334 mg/5 mL solution 08-23 00:00: 00 Yes [id number] 15mL Take 15 mL by mouth 2 (two) times daily after breakfast and dinner. [facility] sodium citrate-cit karan acid 500-334 mg/5 mL solution 08-23 00:00: 00 08-24 00:00 :00 No [id number] 15mL Take 15 mL by mouth 2 (two) times daily after breakfast and dinner. [facility] darbepoetin michael-polyso rbate (ARANESP, POLYSORBATE ,) 100 mcg/0.5 mL injection 08-20 00:00: 00 Yes [id number] 9101 100ug inject 0.5 mL under the skin weekly. [facility] darbepoetin michael-polyso rbate (ARANESP, POLYSORBATE ,) 100 mcg/0.5 mL injection 08-20 00:00: 00 Yes [id number] 9101 100ug inject 0.5 mL under the skin weekly. [facility] darbepoetin michael-polyso rbate (ARANESP, POLYSORBATE ,) 100 mcg/0.5 mL injection 08-20 00:00: 00 Yes [id number] 9101 100ug inject 0.5 mL under the skin weekly. [facility] darbepoetin michael-polyso rbate (ARANESP, POLYSORBATE ,) 100 mcg/0.5 mL injection 08-20 00:00: 00 Yes [id number] 9101 100ug inject 0.5 mL under the skin weekly. [facility] darbepoetin michael-polyso rbate (ARANESP, POLYSORBATE ,) 100 mcg/0.5 mL injection 08-20 00:00: 00 Yes [id number] 100ug inject 0.5 mL under the skin weekly. [facility] darbepoetin michael-polyso rbate (ARANESP, POLYSORBATE ,) 100 mcg/0.5 mL injection 08-20 00:00: 00 Yes [id number] 9101 100ug inject 0.5 mL under the skin weekly. [facility] darbepoetin michael-polyso rbate (ARANESP, POLYSORBATE ,) 100 mcg/0.5 mL injection 08-20 00:00: 00 Yes [id number] 9101 100ug inject 0.5 mL under the skin weekly. [facility] darbepoetin michael-polyso rbate (ARANESP, POLYSORBATE ,) 100 mcg/0.5 mL injection 08-20 00:00: 00 Yes [id number] 100ug inject 0.5 mL under the skin weekly. [facility] darbepoetin michael-polyso rbate (ARANESP, POLYSORBATE ,) 100 mcg/0.5 mL injection 08-20 00:00: 00 09-09 00:00 :00 No [id number] 9101 100ug inject 0.5 mL under the skin weekly. [facility] ARTIFICIAL TEARS,DEXT7 0-HYPRO, OPHTHALMIC 08-19 15:55: [address] in each eye. [facility] aspirin 81 mg Cap 08-19 15:55: 36 Yes Take by mouth. [facility] ARTIFICIAL TEARS,DEXT7 0-HYPRO, OPHTHALMIC 08-19 15:55: [address] in each eye. [facility] aspirin 81 mg Cap 08-19 15:55: 36 Yes Take by mouth. [facility] ARTIFICIAL TEARS,DEXT7 0-HYPRO, OPHTHALMIC 08-19 15:55: [address] in each eye. [facility] aspirin 81 mg Cap 08-19 15:55: 36 Yes Take by mouth. [facility] ARTIFICIAL TEARS,DEXT7 0-HYPRO, OPHTHALMIC 3-0 20 15:55: [address] in each eye. [facility] aspirin 81 mg Cap 2022-0 20 15:55: 36 Yes Take by mouth. [facility] ARTIFICIAL TEARS,DEXT7 0-HYPRO, OPHTHALMIC 2022-0 20 15:55: [address] in each eye. [facility] aspirin 81 mg Cap 2022-0 20 15:55: 36 Yes Take by mouth. [facility] ARTIFICIAL TEARS,DEXT7 0-HYPRO, OPHTHALMIC 2022-0 20 15:55: [address] in each eye. [facility] aspirin 81 mg Cap 2022-0 20 15:55: 36 Yes Take by mouth. [facility] ARTIFICIAL TEARS,DEXT7 0-HYPRO, OPHTHALMIC 2022-0 08-19 15:55: [address] in each eye. [facility] aspirin 81 mg Cap 2022-0 08-19 15:55: 36 Yes Take by mouth. [facility] ARTIFICIAL TEARS,DEXT7 0-HYPRO, OPHTHALMIC 2022-0 08-19 15:55: [address] in each eye. [facility] aspirin 81 mg Cap 2022-0 20 15:55: 36 Yes Take by mouth. [facility] ARTIFICIAL TEARS,DEXT7 0-HYPRO, OPHTHALMIC 2022-0 08-19 15:55: [address] in each eye. [facility] aspirin 81 mg Cap 2022-0 20 15:55: 36 Yes Take by mouth. [facility] aspirin chewable tablet 81 mg 3-0 -20 14:00: 00 Yes 81mg 81 mg, Oral, DAILY, First dose on Ijeoma 08/19/22 at 0900, Until Discontinu ed, Routine [facility] predniSONE (DELTASONE) tablet 10 mg 3-0 08-19 14:00: 00 Yes 10mg 10 mg, Oral, DAILY, First dose on Ijeoma 08/19/22 at 0900, Until Discontinu ed, Routine [facility] KCL (KLOR-CON M20) tablet 40 mEq 08-19 12:15: 00 08-19 12:47 :00 No 40meq 40 mEq, Oral, ONCE, 1 dose, On Tue08/19/22 at 0715, Routine [facility] pravastatin (PRAVACHOL) tablet 20 mg 08-19 02:00: 00 Yes 20mg 20 mg, Oral, QHS, First dose on Tue08/18/22 at 2100, Until Discontinu ed, Routine [facility] guanFACINE (TENEX) tablet 2 mg 08-19 02:00: 00 Yes 2mg 2 mg, Oral, QHS, First dose on Tue08/18/22 at 2100, Until Discontinu ed, Routine [facility] diltiazem XR (DILT-XR) capsule 240 mg 08-19 01:00: 00 Yes 240mg 240 mg, Oral, BID, First dose on Tue08/18/22 at 2000, Until Discontinu ed, Routine [facility] diphenhydrA MINE (BENADRYL) injection 25 mg 08-18 19:30: 00 08-18 18:44 :00 No 25mg 25 mg, Intravenou s, ONCE, 1 dose, On Tue08/18/22 at 1430, Routine [facility] mycophenola te sodium (MYFORTIC) EC tablet 360 mg 08-18 19:00: 00 Yes 360mg 360 mg, Oral, TID, First dose on Tue08/18/22 at 1400, Until Discontinu ed, Routine
managing member approving Restricted medication : RACHEAL SIERRA [facility] tc 99m-albumin (DRAXIMAGE MAA) injection 2.1 millicurie 08-18 17:30: 00 08-18 17:30 :00 No [id number] 2.1mCi 2.1 millicurie , Intravenou s, ONCE, 1 dose, On Tue08/18/22 at 1230, Routine [facility] nystatin (NILSTAT) 100,000 unit/mL suspension 1,000,000 Units 08-18 17:00: 00 Yes 10mL 1,000,000 Units (10 mL), Oral, QID, First dose on Tue08/18/22 at 1200, Until Discontinu ed, [place] [facility] ESTARYLLA 0.25-35 mg-mcg per tablet 0 08-07 00:00: 00 Yes [id number] TAKE 1 TABLET BY MOUTH EVERY DAY [facility] ESTARYLLA 0.25-35 mg-mcg per tablet 0 08-07 00:00: 00 Yes [id number] [facility] 1 [facility]-mcg per tablet 08-07 00:00: 00 Yes [id number] TAKE 1 TABLET BY MOUTH EVERY DAY [facility] ESTARYLLA 0.25-35 mg-mcg per tablet 0 08-07 00:00: 00 Yes [id number] TAKE 1 TABLET [facility]OUTH [facility]-35 mg-mcg per tablet 0 08-07 00:00: 00 Yes [id number] TAKE 1 TABLET BY MOUTH [facility].25-35 mg-mcg per tablet 0 08-07 00:00: 00 Yes [id number] TAKE 1 TABLET BY MOUTH EVERY DAY [facility] ESTARYLLA 0.25-35 mg-mcg per tablet 0 08-07 00:00: 00 Yes [id number] TAKE 1 TABLET BY MOUTH EVERY DAY [facility] ESTARYLLA 0.25-35 mg-mcg per tablet 0 08-07 00:00: 00 Yes [id number] TAKE 1 TABLET BY MOUTH EVERY DAY [facility] ESTARYLLA 0.25-35 mg-mcg per tablet 0 08-07 00:00: 00 Yes [id number] TAKE 1 TABLET BY MOUTH EVERY DAY [facility] ESTARYLLA 0.25-35 mg-mcg per tablet 0 08-07 00:00: 00 Yes [id number] TAKE 1 TABLET BY MOUTH EVERY DAY [facility] ESTARYLLA 0.25-35 mg-mcg per tablet 0 08-07 00:00: 00 Yes [id number] TAKE 1 TABLET BY MOUTH EVERY DAY [facility] ESTARYLLA 0.25-35 mg-mcg per tablet 0 08-07 00:00: 00 Yes [id number] TAKE 1 TABLET BY MOUTH EVERY DAY [facility] ESTARYLLA 0.25-35 mg-mcg per tablet 0 08-07 00:00: 00 Yes [id number] TAKE 1 TABLET BY MOUTH EVERY DAY [facility] ESTARYLLA 0.25-35 mg-mcg per tablet 0 08-07 00:00: 00 Yes [id number] TAKE 1 TABLET BY MOUTH EVERY DAY [facility] ESTARYLLA 0.25-35 mg-mcg per tablet 08-07 00:00: 00 Yes [id number] TAKE 1 TABLET BY MOUTH EVERY DAY [facility] ESTARYLLA 0.25-35 mg-mcg per tablet 0 08-07 00:00: 00 Yes [id number] TAKE 1 TABLET BY MOUTH EVERY DAY [facility] ESTARYLLA 0.25-35 mg-mcg per tablet 0 08-07 00:00: 00 Yes [id number] TAKE 1 TABLET BY MOUTH EVERY DAY [facility] ESTARYLLA 0.25-35 mg-mcg per tablet 08-07 00:00: 00 Yes [id number] TAKE 1 TABLET BY MOUTH EVERY DAY [facility] ESTARYLLA 0.25-35 mg-mcg per tablet 0 08-07 00:00: 00 Yes [id number] TAKE 1 TABLET BY MOUTH EVERY DAY [facility] ESTARYLLA 0.25-35 mg-mcg per tablet 0 08-07 00:00: 00 Yes [id number] TAKE 1 TABLET BY MOUTH EVERY DAY [facility] ESTARYLLA 0.25-35 mg-mcg per tablet 0 08 00:00: 00 Yes [id number] TAKE 1 TABLET BY MOUTH EVERY DAY [facility] ESTARYLLA 0.25-35 mg-mcg per tablet 0 08-07 00:00: 00 Yes [id number] TAKE 1 TABLET BY MOUTH EVERY DAY [facility] ESTARYLLA 0.25-35 mg-mcg per tablet 0 08-07 00:00: 00 Yes [id number] TAKE 1 TABLET BY MOUTH EVERY DAY [facility] ESTARYLLA 0.25-35 mg-mcg per tablet 0 08-07 00:00: 00 Yes [id number] TAKE 1 TABLET BY MOUTH EVERY DAY [facility] ESTARYLLA 0.25-35 mg-mcg per tablet 0 08-07 00:00: 00 Yes [id number] TAKE 1 TABLET BY MOUTH EVERY DAY [facility] ESTARYLLA 0.25-35 mg-mcg per tablet 0 08-07 00:00: 00 Yes [id number] TAKE 1 TABLET BY MOUTH EVERY DAY [facility] ESTARYLLA 0.25-35 mg-mcg per tablet 0 08-07 00:00: 00 Yes [id number] TAKE 1 TABLET BY MOUTH EVERY DAY [facility] ESTARYLLA 0.25-35 mg-mcg per tablet 0 08-07 00:00: 00 Yes [id number] TAKE 1 TABLET BY MOUTH EVERY DAY [facility] ESTARYLLA 0.25-35 mg-mcg per tablet 0 08-07 00:00: 00 Yes [id number] TAKE 1 TABLET BY MOUTH EVERY DAY [facility] ESTARYLLA 0.25-35 mg-mcg per tablet 0 08-07 00:00: 00 Yes [id number] TAKE 1 TABLET BY MOUTH EVERY DAY [facility] ESTARYLLA 0.25-35 mg-mcg per tablet 0 08-07 00:00: 00 Yes [id number] TAKE 1 TABLET BY MOUTH EVERY DAY [facility] ESTARYLLA 0.25-35 mg-mcg per tablet 0 08-07 00:00: 00 Yes [id number] TAKE 1 TABLET BY MOUTH EVERY DAY [facility] ESTARYLLA 0.25-35 mg-mcg per tablet 0 08-07 00:00: 00 Yes [id number] TAKE 1 TABLET BY MOUTH EVERY DAY [facility] ESTARYLLA 0.25-35 mg-mcg per tablet 0 08-07 00:00: 00 Yes [id number] TAKE 1 TABLET BY MOUTH EVERY DAY [facility] ESTARYLLA 0.25-35 mg-mcg per tablet 0 08-07 00:00: 00 Yes [id number] TAKE 1 TABLET BY MOUTH EVERY DAY [facility] ESTARYLLA 0.25-35 mg-mcg per tablet 0 08-07 00:00: 00 Yes [id number] TAKE 1 TABLET BY MOUTH EVERY DAY [facility] ESTARYLLA 0.25-35 mg-mcg per tablet 0 08-07 00:00: 00 Yes [id number] TAKE 1 TABLET BY MOUTH EVERY DAY [facility] ESTARYLLA 0.25-35 mg-mcg per tablet 0 08-07 00:00: 00 Yes [id number] TAKE 1 TABLET BY MOUTH EVERY DAY [facility] ESTARYLLA 0.25-35 mg-mcg per tablet 0 08-07 00:00: 00 Yes [id number] TAKE 1 TABLET BY MOUTH EVERY DAY [facility] ESTARYLLA 0.25-35 mg-mcg per tablet 0 08-07 00:00: 00 Yes [id number] TAKE 1 TABLET BY MOUTH EVERY DAY [facility] ESTARYLLA 0.25-35 mg-mcg per tablet 0 08-07 00:00: 00 Yes [id number] TAKE 1 TABLET BY MOUTH EVERY DAY [facility] ESTARYLLA 0.25-35 mg-mcg per tablet 0 08-07 00:00: 00 Yes [id number] TAKE 1 TABLET BY MOUTH EVERY DAY [facility] ESTARYLLA 0.25-35 mg-mcg per tablet 0 08-07 00:00: 00 Yes [id number] TAKE 1 TABLET BY MOUTH EVERY DAY [facility] ESTARYLLA 0.25-35 mg-mcg per tablet 0 08-07 00:00: 00 Yes [id number] TAKE 1 TABLET BY MOUTH EVERY DAY [facility] ESTARYLLA 0.25-35 mg-mcg per tablet 0 08-07 00:00: 00 Yes [id number] TAKE 1 TABLET BY MOUTH EVERY DAY [facility] ESTARYLLA 0.25-35 mg-mcg per tablet 0 08-07 00:00: 00 Yes [id number] TAKE 1 TABLET BY MOUTH EVERY DAY [facility] ESTARYLLA 0.25-35 mg-mcg per tablet 0 08-07 00:00: 00 Yes [id number] TAKE 1 TABLET BY MOUTH EVERY DAY [facility] ESTARYLLA 0.25-35 mg-mcg per tablet 0 08-07 00:00: 00 Yes [id number] TAKE 1 TABLET BY MOUTH EVERY DAY [facility] ESTARYLLA 0.25-35 mg-mcg per tablet 0 08-07 00:00: 00 Yes [id number] TAKE 1 TABLET BY MOUTH EVERY DAY [facility] ESTARYLLA 0.25-35 mg-mcg per tablet 0 08-07 00:00: 00 Yes [id number] TAKE 1 TABLET BY MOUTH EVERY DAY [facility] ESTARYLLA 0.25-35 mg-mcg per tablet 0 08-07 00:00: 00 Yes [id number] TAKE 1 TABLET BY MOUTH EVERY DAY [facility] ESTARYLLA 0.25-35 mg-mcg per tablet 0 08-07 00:00: 00 Yes [id number] TAKE 1 TABLET BY MOUTH EVERY DAY [facility] ESTARYLLA 0.25-35 mg-mcg per tablet 0 08-07 00:00: 00 Yes [id number] TAKE 1 TABLET BY MOUTH EVERY DAY [facility] ESTARYLLA 0.25-35 mg-mcg per tablet 0 08-07 00:00: 00 Yes [id number] TAKE 1 TABLET BY MOUTH EVERY DAY [facility] ESTARYLLA 0.25-35 mg-mcg per tablet 0 08-07 00:00: 00 Yes [id number] TAKE 1 TABLET BY MOUTH EVERY DAY [facility] ESTARYLLA 0.25-35 mg-mcg per tablet 0 08-07 00:00: 00 Yes [id number] TAKE 1 TABLET BY MOUTH EVERY DAY [facility] ESTARYLLA 0.25-35 mg-mcg per tablet 0 08-07 00:00: 00 Yes [id number] TAKE 1 TABLET BY MOUTH EVERY DAY [facility] ESTARYLLA 0.25-35 mg-mcg per tablet 0 08-07 00:00: 00 Yes [id number] TAKE 1 TABLET BY MOUTH EVERY DAY [facility] ESTARYLLA 0.25-35 mg-mcg per tablet 0 08-07 00:00: 00 Yes [id number] TAKE 1 TABLET BY MOUTH EVERY DAY [facility] ESTARYLLA 0.25-35 mg-mcg per tablet 0 08-07 00:00: 00 Yes [id number] TAKE 1 TABLET BY MOUTH EVERY DAY [facility] ESTARYLLA 0.25-35 mg-mcg per tablet 0 08-07 00:00: 00 Yes [id number] TAKE 1 TABLET BY MOUTH EVERY DAY [facility] ESTARYLLA 0.25-35 mg-mcg per tablet 0 08-07 00:00: 00 Yes [id number] TAKE 1 TABLET BY MOUTH EVERY DAY [facility] ESTARYLLA 0.25-35 mg-mcg per tablet 0 08-07 00:00: 00 Yes [id number] TAKE 1 TABLET BY MOUTH EVERY DAY [facility] ESTARYLLA 0.25-35 mg-mcg per tablet 0 08-07 00:00: 00 Yes [id number] TAKE 1 TABLET BY MOUTH EVERY DAY [facility] ESTARYLLA 0.25-35 mg-mcg per tablet 0 08-07 00:00: 00 Yes [id number] TAKE 1 TABLET BY MOUTH EVERY DAY [facility] ESTARYLLA 0.25-35 mg-mcg per tablet 0 08-07 00:00: 00 Yes [id number] TAKE 1 TABLET BY MOUTH EVERY DAY [facility] ESTARYLLA 0.25-35 mg-mcg per tablet 0 08-07 00:00: 00 Yes [id number] TAKE 1 TABLET BY MOUTH EVERY DAY [facility] ESTARYLLA 0.25-35 mg-mcg per tablet 0 08-07 00:00: 00 Yes [id number] TAKE 1 TABLET BY MOUTH EVERY DAY [facility] ESTARYLLA 0.25-35 mg-mcg per tablet 0 08-07 00:00: 00 Yes [id number] TAKE 1 TABLET BY MOUTH EVERY DAY [facility] ESTARYLLA 0.25-35 mg-mcg per tablet 0 08-07 00:00: 00 Yes [id number] TAKE 1 TABLET BY MOUTH EVERY DAY [facility] ESTARYLLA 0.25-35 mg-mcg per tablet 0 08-07 00:00: 00 Yes [id number] TAKE 1 TABLET BY MOUTH EVERY DAY [facility] ESTARYLLA 0.25-35 mg-mcg per tablet 0 08-07 00:00: 00 Yes [id number] TAKE 1 TABLET BY MOUTH EVERY DAY [facility] ESTARYLLA 0.25-35 mg-mcg per tablet 0 08-07 00:00: 00 Yes [id number] TAKE 1 TABLET BY MOUTH EVERY DAY [facility] ESTARYLLA 0.25-35 mg-mcg per tablet 0 08-07 00:00: 00 Yes [id number] TAKE 1 TABLET BY MOUTH EVERY DAY [facility] ESTARYLLA 0.25-35 mg-mcg per tablet 0 08-07 00:00: 00 Yes [id number] TAKE 1 TABLET BY MOUTH EVERY DAY [facility] ESTARYLLA 0.25-35 mg-mcg per tablet 0 08-07 00:00: 00 Yes [id number] TAKE 1 TABLET BY MOUTH EVERY DAY [facility] ESTARYLLA 0.25-35 mg-mcg per tablet 0 08-07 00:00: 00 Yes [id number] TAKE 1 TABLET BY MOUTH EVERY DAY [facility] ESTARYLLA 0.25-35 mg-mcg per tablet 0 08-07 00:00: 00 Yes [id number] TAKE 1 TABLET BY MOUTH EVERY DAY [facility] ESTARYLLA 0.25-35 mg-mcg per tablet 0 08-07 00:00: 00 Yes [id number] TAKE 1 TABLET BY MOUTH EVERY DAY [facility] ESTARYLLA 0.25-35 mg-mcg per tablet 0 08-07 00:00: 00 Yes [id number] TAKE 1 TABLET BY MOUTH EVERY DAY [facility] ESTARYLLA 0.25-35 mg-mcg per tablet 0 08-07 00:00: 00 Yes [id number] TAKE 1 TABLET BY MOUTH EVERY DAY [facility] ESTARYLLA 0.25-35 mg-mcg per tablet 0 08-07 00:00: 00 Yes [id number] TAKE 1 TABLET BY MOUTH EVERY DAY [facility] ESTARYLLA 0.25-35 mg-mcg per tablet 0 08-07 00:00: 00 Yes [id number] TAKE 1 TABLET BY MOUTH EVERY DAY [facility] ESTARYLLA 0.25-35 mg-mcg per tablet 0 08-07 00:00: 00 Yes [id number] TAKE 1 TABLET BY MOUTH EVERY DAY [facility] ESTARYLLA 0.25-35 mg-mcg per tablet 0 08-07 00:00: 00 Yes [id number] TAKE 1 TABLET BY MOUTH EVERY DAY [facility] ESTARYLLA 0.25-35 mg-mcg per tablet 0 08-07 00:00: 00 Yes [id number] TAKE 1 TABLET BY MOUTH EVERY DAY [facility] ESTARYLLA 0.25-35 mg-mcg per tablet 0 08-07 00:00: 00 Yes [id number] TAKE 1 TABLET BY MOUTH EVERY DAY [facility] ESTARYLLA 0.25-35 mg-mcg per tablet 0 08-07 00:00: 00 Yes [id number] TAKE 1 TABLET BY MOUTH EVERY DAY [facility] ESTARYLLA 0.25-35 mg-mcg per tablet 0 08-07 00:00: 00 Yes [id number] TAKE 1 TABLET BY MOUTH EVERY DAY [facility] ESTARYLLA 0.25-35 mg-mcg per tablet 0 08-07 00:00: 00 Yes [id number] TAKE 1 TABLET BY MOUTH EVERY DAY [facility] ESTARYLLA 0.25-35 mg-mcg per tablet 08-07 00:00: 00 Yes [id number] TAKE 1 TABLET BY MOUTH EVERY DAY [facility] ESTARYLLA 0.25-35 mg-mcg per tablet 08-07 00:00: 00 Yes [id number] TAKE 1 TABLET BY MOUTH EVERY DAY [facility] ESTARYLLA 0.25-35 mg-mcg per tablet 08-07 00:00: 00 Yes [id number] TAKE 1 TABLET BY MOUTH EVERY DAY [facility] ESTARYLLA 0.25-35 mg-mcg per tablet 08-07 00:00: 00 Yes [id number] TAKE 1 TABLET BY MOUTH [facility] 08-04 00:00: 00 Yes [id number] U Take 10 mL by mouth 4 (four) times daily. [facility] nystatin 100,000 unit/mL suspension 08-04 00:00: 00 Yes [id number] U Take 10 mL by mouth 4 (four) times daily. [facility] nystatin 100,000 unit/mL suspension 08-04 00:00: 00 Yes [id number] U Take 10 mL by mouth 4 (four) times daily. [facility] nystatin 100,000 unit/mL suspension 08-04 00:00: 00 Yes [id number] U Take 10 mL by mouth 4 (four) times daily. [facility] nystatin 100,000 unit/mL suspension 0 08-04 00:00: 00 Yes [id number] U Take 10 mL by mouth 4 (four) times daily. [facility] nystatin 100,000 unit/mL suspension 08-04 00:00: 00 Yes [id number] U Take 10 mL by mouth 4 (four) times daily. [facility] nystatin 100,000 unit/mL suspension 08-04 00:00: 00 Yes [id number] U Take 10 mL by mouth 4 (four) times daily. [facility] nystatin 100,000 unit/mL suspension 0 08-04 00:00: 00 Yes [id number] U Take 10 mL by mouth 4 (four) times daily. [facility] nystatin 100,000 unit/mL suspension 0 08-04 00:00: 00 Yes [id number] U Take 10 mL by mouth 4 (four) times daily. [facility] nystatin 100,000 unit/mL suspension 0 08-04 00:00: 00 Yes [id number] U Take 10 mL by mouth 4 (four) times daily. [facility] nystatin 100,000 unit/mL suspension 0 08-04 00:00: 00 Yes [id number] U Take 10 mL by mouth 4 (four) times daily. [facility] nystatin 100,000 unit/mL suspension 0 08-04 00:00: 00 Yes [id number] U Take 10 mL by mouth 4 (four) times daily. [facility] nystatin 100,000 unit/mL suspension 0 05 00:00: 00 Yes [id number] U Take 10 mL by mouth 4 (four) times daily. [facility] nystatin 100,000 unit/mL suspension 0 08-04 00:00: 00 Yes [id number] U Take 10 mL by mouth 4 (four) times daily. [facility] nystatin 100,000 unit/mL suspension 0 05 00:00: 00 Yes [id number] U Take 10 mL by mouth 4 (four) times daily. [facility] nystatin 100,000 unit/mL suspension 0 05 00:00: 00 Yes [id number] U Take 10 mL by mouth 4 (four) times daily. [facility] nystatin 100,000 unit/mL suspension 0 05 00:00: 00 Yes [id number] U Take 10 mL by mouth 4 (four) times daily. [facility] nystatin 100,000 unit/mL suspension 0 05 00:00: 00 Yes [id number] U Take 10 mL by mouth 4 (four) times daily. [facility] nystatin 100,000 unit/mL suspension 0 05 00:00: 00 Yes [id number] U Take 10 mL by mouth 4 (four) times daily. [facility] nystatin 100,000 unit/mL suspension 0 05 00:00: 00 Yes [id number] U Take 10 mL by mouth 4 (four) times daily. [facility] nystatin 100,000 unit/mL suspension 0 05 00:00: 00 Yes [id number] U Take 10 mL by mouth 4 (four) times daily. [facility] nystatin 100,000 unit/mL suspension 0 08-04 00:00: 00 Yes [id number] U Take 10 mL by mouth 4 (four) times daily. [facility] nystatin 100,000 unit/mL suspension 0 05 00:00: 00 Yes [id number] U Take 10 mL by mouth 4 (four) times daily. [facility] nystatin 100,000 unit/mL suspension 0 05 00:00: 00 Yes [id number] U Take 10 mL by mouth 4 (four) times daily. [facility] nystatin 100,000 unit/mL suspension 0 05 00:00: 00 Yes [id number] U Take 10 mL by mouth 4 (four) times daily. [facility] nystatin 100,000 unit/mL suspension 0 05 00:00: 00 Yes [id number] U Take 10 mL by mouth 4 (four) times daily. [facility] nystatin 100,000 unit/mL suspension 0 05 00:00: 00 Yes [id number] U Take 10 mL by mouth 4 (four) times daily. [facility] nystatin 100,000 unit/mL suspension 0 4-05 00:00: 00 Yes [id number] U Take 10 mL by mouth 4 (four) times daily. [facility] nystatin 100,000 unit/mL suspension 0 4-05 00:00: 00 Yes [id number] U Take 10 mL by mouth 4 (four) times daily. [facility] nystatin 100,000 unit/mL suspension 0 4-05 00:00: 00 Yes [id number] U Take 10 mL by mouth 4 (four) times daily. [facility] nystatin 100,000 unit/mL suspension 0 4-05 00:00: 00 Yes [id number] U Take 10 mL by mouth 4 (four) times daily. [facility] nystatin 100,000 unit/mL suspension 0 05 00:00: 00 Yes [id number] U Take 10 mL by mouth 4 (four) times daily. [facility] nystatin 100,000 unit/mL suspension 0 05 00:00: 00 Yes [id number] U Take 10 mL by mouth 4 (four) times daily. [facility] nystatin 100,000 unit/mL suspension 0 05 00:00: 00 Yes [id number] U Take 10 mL by mouth 4 (four) times daily. [facility] nystatin 100,000 unit/mL suspension 0 05 00:00: 00 Yes [id number] U Take 10 mL by mouth 4 (four) times daily. [facility] nystatin 100,000 unit/mL suspension 0 05 00:00: 00 Yes [id number] U Take 10 mL by mouth 4 (four) times daily. [facility] nystatin 100,000 unit/mL suspension 0 4-05 00:00: 00 Yes [id number] U Take 10 mL by mouth 4 (four) times daily. [facility] nystatin 100,000 unit/mL suspension 0 4-05 00:00: 00 Yes [id number] U Take 10 mL by mouth 4 (four) times daily. [facility] nystatin 100,000 unit/mL suspension 0 4-05 00:00: 00 Yes [id number] U Take 10 mL by mouth 4 (four) times daily. [facility] nystatin 100,000 unit/mL suspension 0 4-05 00:00: 00 Yes [id number] U Take 10 mL by mouth 4 (four) times daily. [facility] nystatin 100,000 unit/mL suspension 0 4-05 00:00: 00 Yes [id number] U Take 10 mL by mouth 4 (four) times daily. [facility] nystatin 100,000 unit/mL suspension 0 4-05 00:00: 00 Yes [id number] U Take 10 mL by mouth 4 (four) times daily. [facility] 0 4-05 00:00: 00 Yes [id number] U Take 10 mL by mouth 4 (four) times daily. [facility] nystatin 100,000 unit/mL suspension 4-05 00:00: 00 Yes [id number] U Take 10 mL by mouth 4 (four) times daily. [facility]mL suspension 4-05 00:00: 00 01-24 00:00 :00 No [id number] U Take 10 mL by mouth 4 (four) times daily. [facility]mL suspension 4-05 00:00: 00 01-24 00:00 :00 No [id number] U Take 10 mL by mouth 4 (four) times daily. [facility]mL suspension 4-05 00:00: 00 01-24 00:00 :00 No [id number] U Take 10 mL by mouth 4 (four) times daily. [facility] acyclovir 200 mg capsule 3-26 00:00: 00 07-31 04:59 :00 No [id number] 200mg Take 1 capsule by mouth in the morning and 1 capsule at noon and 1 capsule in the evening. Do all this for 5 days. [facility] MYCOPHENOLA TE SODIUM 360 mg EC tablet 2022-0 13 00:00: 00 Yes [id number] TAKE 1 TABLET BY MOUTH IN THE MORNING AT NOON AND IN THE EVENING [facility] MYCOPHENOLA TE SODIUM 360 mg EC tablet 2022-0 -13 00:00: 00 Yes [id number] TAKE 1 TABLET BY MOUTH IN THE MORNING AT NOON AND IN THE EVENING [facility] MYCOPHENOLA TE SODIUM 360 mg EC tablet 2022-0 -13 00:00: 00 Yes [id number] TAKE 1 TABLET BY MOUTH IN THE MORNING AT NOON AND IN THE EVENING [facility] MYCOPHENOLA TE SODIUM 360 mg EC tablet 2022-0 -13 00:00: 00 Yes [id number] TAKE 1 TABLET BY MOUTH IN THE MORNING AT NOON AND IN THE EVENING [facility] MYCOPHENOLA TE SODIUM 360 mg EC tablet 2022-0 13 00:00: 00 Yes [id number] TAKE 1 TABLET BY MOUTH IN THE MORNING AT NOON AND IN THE EVENING [facility] MYCOPHENOLA TE SODIUM 360 mg EC tablet 2022-0 13 00:00: 00 Yes [id number] TAKE 1 TABLET BY MOUTH IN THE MORNING AT NOON AND IN THE EVENING [facility] MYCOPHENOLA TE SODIUM 360 mg EC tablet 2022-0 13 00:00: 00 Yes [id number] TAKE 1 TABLET BY MOUTH IN THE MORNING AT NOON AND IN THE EVENING [facility] MYCOPHENOLA TE SODIUM 360 mg EC tablet 2022-0 13 00:00: 00 Yes [id number] TAKE 1 TABLET BY MOUTH IN THE MORNING AT NOON AND IN THE EVENING [facility] MYCOPHENOLA TE SODIUM 360 mg EC tablet 2022-0 -13 00:00: 00 Yes [id number] TAKE 1 TABLET BY MOUTH IN THE MORNING AT NOON AND IN THE EVENING [facility] MYCOPHENOLA TE SODIUM 360 mg EC tablet 3-0 -13 00:00: 00 Yes [id number] TAKE 1 TABLET BY MOUTH IN THE MORNING AT NOON AND IN THE EVENING [facility] MYCOPHENOLA TE SODIUM 360 mg EC tablet 2022-0 3-13 00:00: 00 Yes [id number] TAKE 1 TABLET BY MOUTH IN THE MORNING AT NOON AND IN THE EVENING [facility] MYCOPHENOLA TE SODIUM 360 mg EC tablet 2022-0 13 00:00: 00 Yes [id number] TAKE 1 TABLET BY MOUTH IN THE MORNING AT NOON AND IN THE EVENING [facility] MYCOPHENOLA TE SODIUM 360 mg EC tablet 2022-0 13 00:00: 00 Yes [id number] TAKE 1 TABLET BY MOUTH IN THE MORNING AT NOON AND IN THE EVENING [facility] MYCOPHENOLA TE SODIUM 360 mg EC tablet 2022-0 13 00:00: 00 Yes [id number] TAKE 1 TABLET BY MOUTH IN THE MORNING AT NOON AND IN THE EVENING [facility] MYCOPHENOLA TE SODIUM 360 mg EC tablet 2022-0 13 00:00: 00 Yes [id number] TAKE 1 TABLET BY MOUTH IN THE MORNING AT NOON AND IN THE EVENING [facility] MYCOPHENOLA TE SODIUM 360 mg EC tablet 2022-0 13 00:00: 00 Yes [id number] TAKE 1 TABLET BY MOUTH IN THE MORNING AT NOON AND IN THE EVENING [facility] MYCOPHENOLA TE SODIUM 360 mg EC tablet 2022-0 13 00:00: 00 Yes [id number] TAKE 1 TABLET BY MOUTH IN THE MORNING AT NOON AND IN THE EVENING [facility] MYCOPHENOLA TE SODIUM 360 mg EC tablet 2022-0 13 00:00: 00 Yes [id number] TAKE 1 TABLET BY MOUTH IN THE MORNING AT NOON AND IN THE EVENING [facility] MYCOPHENOLA TE SODIUM 360 mg EC tablet 2022-0 13 00:00: 00 Yes [id number] TAKE 1 TABLET BY MOUTH IN THE MORNING AT NOON AND IN THE EVENING [facility] MYCOPHENOLA TE SODIUM 360 mg EC tablet 3-0 13 00:00: 00 Yes [id number] TAKE 1 TABLET BY MOUTH IN THE MORNING AT NOON AND IN THE EVENING [facility] MYCOPHENOLA TE SODIUM 360 mg EC tablet 3-0 13 00:00: 00 Yes [id number] TAKE 1 TABLET BY MOUTH IN THE MORNING AT NOON AND IN THE EVENING [facility] MYCOPHENOLA TE SODIUM 360 mg EC tablet 2022-0 -13 00:00: 00 Yes [id number] TAKE 1 TABLET BY MOUTH IN THE MORNING AT NOON AND IN THE EVENING [facility] MYCOPHENOLA TE SODIUM 360 mg EC tablet 3-0 -13 00:00: 00 Yes [id number] TAKE 1 TABLET BY MOUTH IN THE MORNING AT NOON AND IN THE EVENING [facility] MYCOPHENOLA TE SODIUM 360 mg EC tablet 2022-0 -13 00:00: 00 Yes [id number] TAKE 1 TABLET BY MOUTH IN THE MORNING AT NOON AND IN THE EVENING [facility] MYCOPHENOLA TE SODIUM 360 mg EC tablet 2022-0 -13 00:00: 00 Yes [id number] TAKE 1 TABLET BY MOUTH IN THE MORNING AT NOON AND IN THE EVENING [facility] MYCOPHENOLA TE SODIUM 360 mg EC tablet 2022-0 13 00:00: 00 Yes [id number] TAKE 1 TABLET BY MOUTH IN THE MORNING AT NOON AND IN THE EVENING [facility] MYCOPHENOLA TE SODIUM 360 mg EC tablet 2022-0 -13 00:00: 00 Yes [id number] TAKE 1 TABLET BY MOUTH IN THE MORNING AT NOON AND IN THE EVENING [facility] MYCOPHENOLA TE SODIUM 360 mg EC tablet 2022-0 -13 00:00: 00 Yes [id number] TAKE 1 TABLET BY MOUTH IN THE MORNING AT NOON AND IN THE EVENING [facility] MYCOPHENOLA TE SODIUM 360 mg EC tablet 2022-0 -13 00:00: 00 Yes [id number] TAKE 1 TABLET BY MOUTH IN THE MORNING AT NOON AND IN THE EVENING [facility] MYCOPHENOLA TE SODIUM 360 mg EC tablet 2022-0 -13 00:00: 00 Yes [id number] TAKE 1 TABLET BY MOUTH IN THE MORNING AT NOON AND IN THE EVENING [facility] MYCOPHENOLA TE SODIUM 360 mg EC tablet 3-0 -13 00:00: 00 Yes [id number] TAKE 1 TABLET BY MOUTH IN THE MORNING AT NOON AND IN THE EVENING [facility] MYCOPHENOLA TE SODIUM 360 mg EC tablet 2022-0 13 00:00: 00 Yes [id number] TAKE 1 TABLET BY MOUTH IN THE MORNING AT NOON AND IN THE EVENING [facility] MYCOPHENOLA TE SODIUM 360 mg EC tablet 2022-0 13 00:00: 00 Yes [id number] TAKE 1 TABLET BY MOUTH IN THE MORNING AT NOON AND IN THE EVENING [facility] MYCOPHENOLA TE SODIUM 360 mg EC tablet 2022-0 07-12 00:00: 00 Yes [id number] TAKE 1 TABLET BY MOUTH IN THE MORNING AT NOON AND IN THE EVENING [facility] MYCOPHENOLA TE SODIUM 360 mg EC tablet 2022-0 07-12 00:00: 00 Yes [id number] TAKE 1 TABLET BY MOUTH IN THE MORNING AT NOON AND IN THE EVENING [facility] MYCOPHENOLA TE SODIUM 360 mg EC tablet 2022-0 13 00:00: 00 Yes [id number] TAKE 1 TABLET BY MOUTH IN THE MORNING AT NOON AND IN THE EVENING [facility] MYCOPHENOLA TE SODIUM 360 mg EC tablet 2022-0 07-12 00:00: 00 Yes [id number] TAKE 1 TABLET BY MOUTH IN THE MORNING AT NOON AND IN THE EVENING [facility] MYCOPHENOLA TE SODIUM 360 mg EC tablet 2022-0 13 00:00: 00 Yes [id number] TAKE 1 TABLET BY MOUTH IN THE MORNING AT NOON AND IN THE EVENING [facility] MYCOPHENOLA TE SODIUM 360 mg EC tablet 2022-0 13 00:00: 00 Yes [id number] TAKE 1 TABLET BY MOUTH IN THE MORNING AT NOON AND IN THE EVENING [facility] MYCOPHENOLA TE SODIUM 360 mg EC tablet 2022-0 13 00:00: 00 Yes [id number] TAKE 1 TABLET BY MOUTH IN THE MORNING AT NOON AND IN THE EVENING [facility] MYCOPHENOLA TE SODIUM 360 mg EC tablet 2022-0 13 00:00: 00 Yes [id number] TAKE 1 TABLET BY MOUTH IN THE MORNING AT NOON AND IN THE EVENING [facility] MYCOPHENOLA TE SODIUM 360 mg EC tablet 2022-0 13 00:00: 00 Yes [id number] TAKE 1 TABLET BY MOUTH IN THE MORNING AT NOON AND IN THE EVENING [facility] [facility] MYCOPHENOLA TE SODIUM 360 mg EC tablet 0 13 00:00: 00 Yes [id number] TAKE 1 TABLET BY MOUTH IN THE MORNING AT NOON AND IN THE EVENING [facility] MYCOPHENOLA TE SODIUM 360 mg EC tablet 2022-0 13 00:00: 00 Yes [id number] TAKE 1 TABLET BY MOUTH IN THE MORNING AT NOON AND IN THE EVENING [facility] MYCOPHENOLA TE SODIUM 360 mg EC tablet 2022-0 13 00:00: 00 Yes [id number] TAKE 1 TABLET BY MOUTH IN THE MORNING AT NOON AND IN THE EVENING [facility] MYCOPHENOLA TE SODIUM 360 mg EC tablet 0 07-12 00:00: 00 Yes [id number] TAKE 1 TABLET BY MOUTH IN THE MORNING AT NOON AND IN THE EVENING [facility] MYCOPHENOLA TE SODIUM 360 mg EC tablet 2022-0 07-12 00:00: 00 01-24 00:00 :00 No [id number] TAKE 1 TABLET BY MOUTH IN THE MORNING AT NOON AND IN THE EVENING [facility] MYCOPHENOLA TE SODIUM 360 mg EC tablet 0 07-12 00:00: 00 01-24 00:00 :00 No [id number] TAKE 1 TABLET BY MOUTH IN THE MORNING AT NOON AND IN THE EVENING [facility] MYCOPHENOLA TE SODIUM 360 mg EC tablet 2022-0 07-12 00:00: 00 01-24 00:00 :00 No [id number] TAKE 1 TABLET BY MOUTH IN THE MORNING AT NOON AND IN THE EVENING [facility] predniSONE 10 mg tablet 2022-0 2- 00:00: 00 Yes [id number] 10mg Take 1 tablet by mouth in the morning. [facility] predniSONE 10 mg tablet 2022-0 2-03 00:00: 00 Yes [id number] 10mg Take 1 tablet by mouth in the morning. [facility] predniSONE 10 mg tablet 2022-0 2-03 00:00: 00 Yes [id number] 10mg Take 1 tablet by mouth in the morning. [facility] predniSONE 10 mg tablet 3-0 2-03 00:00: 00 Yes [id number] 10mg Take 1 tablet by mouth in the morning. [facility] predniSONE 10 mg tablet 3-0 2-03 00:00: 00 Yes [id number] 10mg Take 1 tablet by mouth in the morning. [facility] predniSONE 10 mg tablet 3-0 2-03 00:00: 00 Yes [id number] 10mg Take 1 tablet by mouth in the morning. [facility] predniSONE 10 mg tablet 3-0 2-03 00:00: 00 Yes [id number] 10mg Take 1 tablet by mouth in the morning. [facility] predniSONE 10 mg tablet 3-0 2- 00:00: 00 Yes [id number] 10mg Take 1 tablet by mouth in the morning. [facility] predniSONE 10 mg tablet 3-0 2-03 00:00: 00 Yes [id number] 10mg Take 1 tablet by mouth in the morning. [facility] predniSONE 10 mg tablet 3-0 2- 00:00: 00 Yes [id number] 10mg Take 1 tablet by mouth in the morning. [facility] predniSONE 10 mg tablet 3-0 2- 00:00: 00 Yes [id number] 10mg Take 1 tablet by mouth in the morning. [facility] predniSONE 10 mg tablet 3-0 2-03 00:00: 00 Yes [id number] 10mg Take 1 tablet by mouth in the morning. [facility] predniSONE 10 mg tablet 3-0 2-03 00:00: 00 Yes [id number] 10mg Take 1 tablet by mouth in the morning. [facility] predniSONE 10 mg tablet 3-0 2-03 00:00: 00 Yes [id number] 10mg Take 1 tablet by mouth in the morning. [facility] predniSONE 10 mg tablet 3-0 2-03 00:00: 00 Yes [id number] 10mg Take 1 tablet by mouth in the morning. [facility] predniSONE 10 mg tablet 3-0 2-03 00:00: 00 Yes [id number] 10mg Take 1 tablet by mouth in the morning. [facility] predniSONE 10 mg tablet 3-0 2-03 00:00: 00 Yes [id number] 10mg Take 1 tablet by mouth in the morning. [facility] predniSONE 10 mg tablet 3-0 2-03 00:00: 00 Yes [id number] 10mg Take 1 tablet by mouth in the morning. [facility] predniSONE 10 mg tablet 3-0 2-03 00:00: 00 Yes [id number] 10mg Take 1 tablet by mouth in the morning. [facility] predniSONE 10 mg tablet 3-0 2-03 00:00: 00 Yes [id number] 10mg Take 1 tablet by mouth in the morning. [facility] predniSONE 10 mg tablet 3-0 2-03 00:00: 00 Yes [id number] 10mg Take 1 tablet by mouth in the morning. [facility] predniSONE 10 mg tablet 3-0 2-03 00:00: 00 Yes [id number] 10mg Take 1 tablet by mouth in the morning. [facility] predniSONE 10 mg tablet 3-0 2-03 00:00: 00 Yes [id number] 10mg Take 1 tablet by mouth in the morning. [facility] predniSONE 10 mg tablet 3-0 2-03 00:00: 00 Yes [id number] 10mg Take 1 tablet by mouth in the morning. [facility] predniSONE 10 mg tablet 3-0 2-03 00:00: 00 Yes [id number] 10mg Take 1 tablet by mouth in the morning. [facility] predniSONE 10 mg tablet 3-0 2-03 00:00: 00 Yes [id number] 10mg Take 1 tablet by mouth in the morning. [facility] predniSONE 10 mg tablet 3-0 2-03 00:00: 00 Yes [id number] 10mg Take 1 tablet by mouth in the morning. [facility] predniSONE 10 mg tablet 2023-0 2-03 00:00: 00 Yes [id number] 10mg Take 1 tablet by mouth in the morning. [facility] predniSONE 10 mg tablet 3-0 2-03 00:00: 00 Yes [id number] 10mg Take 1 tablet by mouth in the morning. [facility] predniSONE 10 mg tablet 3-0 2-03 00:00: 00 Yes [id number] 10mg Take 1 tablet by mouth in the morning. [facility] predniSONE 10 mg tablet 3-0 2-03 00:00: 00 Yes [id number] 10mg Take 1 tablet by mouth in the morning. [facility] predniSONE 10 mg tablet 3-0 2-03 00:00: 00 Yes [id number] 10mg Take 1 tablet by mouth in the morning. [facility] predniSONE 10 mg tablet 3-0 2-03 00:00: 00 Yes [id number] 10mg Take 1 tablet by mouth in the morning. [facility] predniSONE 10 mg tablet 3-0 2-03 00:00: 00 Yes [id number] 10mg Take 1 tablet by mouth in the morning. [facility] predniSONE 10 mg tablet 3-0 2-03 00:00: 00 Yes [id number] 10mg Take 1 tablet by mouth in the morning. [facility] predniSONE 10 mg tablet 3-0 2-03 00:00: 00 Yes [id number] 10mg Take 1 tablet by mouth in the morning. [facility] predniSONE 10 mg tablet 3-0 2-03 00:00: 00 Yes [id number] 10mg Take 1 tablet by mouth in the morning. [facility] predniSONE 10 mg tablet 3-0 2-03 00:00: 00 Yes [id number] 10mg Take 1 tablet by mouth in the morning. [facility] predniSONE 10 mg tablet 3-0 2-03 00:00: 00 Yes [id number] 10mg Take 1 tablet by mouth in the morning. [facility] predniSONE 10 mg tablet 3-0 2-03 00:00: 00 Yes [id number] 10mg Take 1 tablet by mouth in the morning. [facility] predniSONE 10 mg tablet 3-0 2-03 00:00: 00 Yes [id number] 10mg Take 1 tablet by mouth in the morning. [facility] predniSONE 10 mg tablet 2023-0 2-03 00:00: 00 Yes [id number] 10mg Take 1 tablet by mouth in the morning. [facility] predniSONE 10 mg tablet 3-0 2-03 00:00: 00 Yes [id number] 10mg Take 1 tablet by mouth in the morning. [facility] predniSONE 10 mg tablet 2023-0 2-03 00:00: 00 Yes [id number] 10mg Take 1 tablet by mouth in the morning. [facility] predniSONE 10 mg tablet 2023-0 2-03 00:00: 00 Yes [id number] 10mg Take 1 tablet by mouth in the morning. [facility] predniSONE 10 mg tablet 3-0 2-03 00:00: 00 Yes [id number] 10mg Take 1 tablet by mouth in the morning. [facility] predniSONE 10 mg tablet 3-0 2-03 00:00: 00 Yes [id number] 10mg Take 1 tablet by mouth in the morning. [facility] predniSONE 10 mg tablet 2023-0 2-03 00:00: 00 Yes [id number] 10mg Take 1 tablet by mouth in the morning. [facility] predniSONE 10 mg tablet 3-0 2-03 00:00: 00 Yes [id number] 10mg Take 1 tablet by mouth in the morning. [facility] predniSONE 10 mg tablet 3-0 2-03 00:00: 00 Yes [id number] 10mg Take 1 tablet by mouth in the morning. [facility] predniSONE 10 mg tablet 3-0 2-03 00:00: 00 Yes [id number] 10mg Take 1 tablet by mouth in the morning. [facility] predniSONE 10 mg tablet 3-0 2-03 00:00: 00 01-24 00:00 :00 No [id number] 10mg Take 1 tablet by mouth in the morning. [facility] predniSONE 10 mg tablet 3-0 2-03 00:00: 00 01-24 00:00 :00 No [id number] 10mg Take 1 tablet by mouth in the morning. [facility] predniSONE 10 mg tablet 3-0 2-03 00:00: 00 01-24 00:00 :00 No [id number] 10mg Take 1 tablet by mouth in the morning. [facility] diltiazem XR 240 mg 24 hr capsule 05-26 00:00: 00 Yes [id number] 240mg Take 1 capsule by mouth in the morning and 1 capsule in the evening. [facility] guanFACINE ER 2 mg tablet 05-26 00:00: 00 Yes [id number] 2mg Take 1 tablet by mouth at bedtime. [facility] diltiazem XR 240 mg 24 hr capsule 05-26 00:00: 00 Yes [id number] 240mg Take 1 capsule by mouth in the morning and 1 capsule in the evening. [facility] guanFACINE ER 2 mg tablet 05-26 00:00: 00 Yes [id number] 2mg Take 1 tablet by mouth at bedtime. [facility] diltiazem XR 240 mg 24 hr capsule 05-26 00:00: 00 Yes [id number] 240mg Take 1 capsule by mouth in the morning and 1 capsule in the evening. [facility] guanFACINE ER 2 mg tablet 05-26 00:00: 00 Yes [id number] 2mg Take 1 tablet by mouth at bedtime. [facility] diltiazem XR 240 mg 24 hr capsule 05-26 00:00: 00 Yes [id number] 240mg Take 1 capsule by mouth in the morning and 1 capsule in the evening. [facility] guanFACINE ER 2 mg tablet 05-26 00:00: 00 Yes [id number] 2mg Take 1 tablet by mouth at bedtime. [facility] diltiazem XR 240 mg 24 hr capsule 0 05-26 00:00: 00 Yes [id number] 240mg Take 1 capsule by mouth in the morning and 1 capsule in the evening. [facility] guanFACINE ER 2 mg tablet 05-26 00:00: 00 Yes [id number] 2mg Take 1 tablet by mouth at bedtime. [facility] diltiazem XR 240 mg 24 hr capsule 0 25 00:00: 00 Yes [id number] 240mg Take 1 capsule by mouth in the morning and 1 capsule in the evening. [facility] guanFACINE ER 2 mg tablet 0 05-26 00:00: 00 Yes [id number] 2mg Take 1 tablet by mouth at bedtime. [facility] diltiazem XR 240 mg 24 hr capsule 0 05-26 00:00: 00 Yes [id number] 240mg Take 1 capsule by mouth in the morning and 1 capsule in the evening. [facility] guanFACINE ER 2 mg tablet 0 05-26 00:00: 00 Yes [id number] 2mg Take 1 tablet by mouth at bedtime. [facility] diltiazem XR 240 mg 24 hr capsule 0 05-26 00:00: 00 Yes [id number] 240mg Take 1 capsule by mouth in the morning and 1 capsule in the evening. [facility] guanFACINE ER 2 mg tablet 0 05-26 00:00: 00 Yes [id number] 2mg Take 1 tablet by mouth at bedtime. [facility] diltiazem XR 240 mg 24 hr capsule 0 05-26 00:00: 00 Yes [id number] 240mg Take 1 capsule by mouth in the morning and 1 capsule in the evening. [facility] guanFACINE ER 2 mg tablet 0 05-26 00:00: 00 Yes [id number] 2mg Take 1 tablet by mouth at bedtime. [facility] diltiazem XR 240 mg 24 hr capsule 0 05-26 00:00: 00 Yes [id number] 240mg Take 1 capsule by mouth in the morning and 1 capsule in the evening. [facility] guanFACINE ER 2 mg tablet 2022-0 05-26 00:00: 00 Yes [id number] 2mg Take 1 tablet by mouth at bedtime. [facility] diltiazem XR 240 mg 24 hr capsule 2022-0 05-26 00:00: 00 Yes [id number] 240mg Take 1 capsule by mouth in the morning and 1 capsule in the evening. [facility] guanFACINE ER 2 mg tablet 0 25 00:00: 00 Yes [id number] 2mg Take 1 tablet by mouth at bedtime. [facility] diltiazem XR 240 mg 24 hr capsule 2022-0 -25 00:00: 00 Yes [id number] 240mg Take 1 capsule by mouth in the morning and 1 capsule in the evening. [facility] guanFACINE ER 2 mg tablet 2022-0 05-26 00:00: 00 Yes [id number] 2mg Take 1 tablet by mouth at bedtime. [facility] diltiazem XR 240 mg 24 hr capsule 2022-0 05-26 00:00: 00 Yes [id number] 240mg Take 1 capsule by mouth in the morning and 1 capsule in the evening. [facility] guanFACINE ER 2 mg tablet 0 05-26 00:00: 00 Yes [id number] 2mg Take 1 tablet by mouth at bedtime. [facility] diltiazem XR 240 mg 24 hr capsule 0 05-26 00:00: 00 Yes [id number] 240mg Take 1 capsule by mouth in the morning and 1 capsule in the evening. [facility] guanFACINE ER 2 mg tablet 2022-0 05-26 00:00: 00 Yes [id number] 2mg Take 1 tablet by mouth at bedtime. [facility] diltiazem XR 240 mg 24 hr capsule 2022-0 05-26 00:00: 00 Yes [id number] 240mg Take 1 capsule by mouth in the morning and 1 capsule in the evening. [facility] guanFACINE ER 2 mg tablet 2022-0 25 00:00: 00 Yes [id number] 2mg Take 1 tablet by mouth at bedtime. [facility] diltiazem XR 240 mg 24 hr capsule 2022-0 25 00:00: 00 Yes [id number] 240mg Take 1 capsule by mouth in the morning and 1 capsule in the evening. [facility] guanFACINE ER 2 mg tablet 2022-0 25 00:00: 00 Yes [id number] 2mg Take 1 tablet by mouth at bedtime. [facility] diltiazem XR 240 mg 24 hr capsule 2022-0 05-26 00:00: 00 Yes [id number] 240mg Take 1 capsule by mouth in the morning and 1 capsule in the evening. [facility] guanFACINE ER 2 mg tablet 2022-0 05-26 00:00: 00 Yes [id number] 2mg Take 1 tablet by mouth at bedtime. [facility] diltiazem XR 240 mg 24 hr capsule 2022-0 05-26 00:00: 00 Yes [id number] 240mg Take 1 capsule by mouth in the morning and 1 capsule in the evening. [facility] guanFACINE ER 2 mg tablet 0 05-26 00:00: 00 Yes [id number] 2mg Take 1 tablet by mouth at bedtime. [facility] diltiazem XR 240 mg 24 hr capsule 0 05-26 00:00: 00 Yes [id number] 240mg Take 1 capsule by mouth in the morning and 1 capsule in the evening. [facility] guanFACINE ER 2 mg tablet 0 05-26 00:00: 00 Yes [id number] 2mg Take 1 tablet by mouth at bedtime. [facility] diltiazem XR 240 mg 24 hr capsule 0 05-26 00:00: 00 Yes [id number] 240mg Take 1 capsule by mouth in the morning and 1 capsule in the evening. [facility] guanFACINE ER 2 mg tablet 0 05-26 00:00: 00 Yes [id number] 2mg Take 1 tablet by mouth at bedtime. [facility] diltiazem XR 240 mg 24 hr capsule 2022-0 05-26 00:00: 00 Yes [id number] 240mg Take 1 capsule by mouth in the morning and 1 capsule in the evening. [facility] guanFACINE ER 2 mg tablet 2022-0 05-26 00:00: 00 Yes [id number] 2mg Take 1 tablet by mouth at bedtime. [facility] diltiazem XR 240 mg 24 hr capsule 2022-0 05-26 00:00: 00 Yes [id number] 240mg Take 1 capsule by mouth in the morning and 1 capsule in the evening. [facility] guanFACINE ER 2 mg tablet 0 05-26 00:00: 00 Yes [id number] 2mg Take 1 tablet by mouth at bedtime. [facility] diltiazem XR 240 mg 24 hr capsule 0 05-26 00:00: 00 Yes [id number] 240mg Take 1 capsule by mouth in the morning and 1 capsule in the evening. [facility] guanFACINE ER 2 mg tablet 0 05-26 00:00: 00 Yes [id number] 2mg Take 1 tablet by mouth at bedtime. [facility] diltiazem XR 240 mg 24 hr capsule 0 05-26 00:00: 00 Yes [id number] 240mg Take 1 capsule by mouth in the morning and 1 capsule in the evening. [facility] guanFACINE ER 2 mg tablet 05-26 00:00: 00 Yes [id number] 2mg Take 1 tablet by mouth at bedtime. [facility] diltiazem XR 240 mg 24 hr capsule 0 05-26 00:00: 00 Yes [id number] 240mg Take 1 capsule by mouth in the morning and 1 capsule in the evening. [facility] guanFACINE ER 2 mg tablet 0 05-26 00:00: 00 Yes [id number] 2mg Take 1 tablet by mouth at bedtime. [facility] diltiazem XR 240 mg 24 hr capsule 0 05-26 00:00: 00 Yes [id number] 240mg Take 1 capsule by mouth in the morning and 1 capsule in the evening. [facility] guanFACINE ER 2 mg tablet 0 05-26 00:00: 00 Yes [id number] 2mg Take 1 tablet by mouth at bedtime. [facility] diltiazem XR 240 mg 24 hr capsule 0 05-26 00:00: 00 Yes [id number] 240mg Take 1 capsule by mouth in the morning and 1 capsule in the evening. [facility] guanFACINE ER 2 mg tablet 0 05-26 00:00: 00 Yes [id number] 2mg Take 1 tablet by mouth at bedtime. [facility] diltiazem XR 240 mg 24 hr capsule 0 -25 00:00: 00 Yes [id number] 240mg Take 1 capsule by mouth in the morning and 1 capsule in the evening. [facility] guanFACINE ER 2 mg tablet 2022-0 05-26 00:00: 00 Yes [id number] 2mg Take 1 tablet by mouth at bedtime. [facility] diltiazem XR 240 mg 24 hr capsule 2022-0 05-26 00:00: 00 Yes [id number] 240mg Take 1 capsule by mouth in the morning and 1 capsule in the evening. [facility] guanFACINE ER 2 mg tablet 0 05-26 00:00: 00 Yes [id number] 2mg Take 1 tablet by mouth at bedtime. [facility] diltiazem XR 240 mg 24 hr capsule 2022-0 05-26 00:00: 00 Yes [id number] 240mg Take 1 capsule by mouth in the morning and 1 capsule in the evening. [facility] guanFACINE ER 2 mg tablet 0 05-26 00:00: 00 Yes [id number] 2mg Take 1 tablet by mouth at bedtime. [facility] diltiazem XR 240 mg 24 hr capsule 2022-0 05-26 00:00: 00 Yes [id number] 240mg Take 1 capsule by mouth in the morning and 1 capsule in the evening. [facility] guanFACINE ER 2 mg tablet 0 05-26 00:00: 00 Yes [id number] 2mg Take 1 tablet by mouth at bedtime. [facility] diltiazem XR 240 mg 24 hr capsule 2022-0 05-26 00:00: 00 Yes [id number] 240mg Take 1 capsule by mouth in the morning and 1 capsule in the evening. [facility] guanFACINE ER 2 mg tablet 2022-0 05-26 00:00: 00 Yes [id number] 2mg Take 1 tablet by mouth at bedtime. [facility] diltiazem XR 240 mg 24 hr capsule 2022-0 25 00:00: 00 Yes [id number] 240mg Take 1 capsule by mouth in the morning and 1 capsule in the evening. [facility] guanFACINE ER 2 mg tablet 0 05-26 00:00: 00 Yes [id number] 2mg Take 1 tablet by mouth at bedtime. [facility] diltiazem XR 240 mg 24 hr capsule 2022-0 05-26 00:00: 00 Yes [id number] 240mg Take 1 capsule by mouth in the morning and 1 capsule in the evening. [facility] guanFACINE ER 2 mg tablet 0 05-26 00:00: 00 Yes [id number] 2mg Take 1 tablet by mouth at bedtime. [facility] diltiazem XR 240 mg 24 hr capsule 0 05-26 00:00: 00 Yes [id number] 240mg Take 1 capsule by mouth in the morning and 1 capsule in the evening. [facility] guanFACINE ER 2 mg tablet 0 05-26 00:00: 00 Yes [id number] 2mg Take 1 tablet by mouth at bedtime. [facility] diltiazem XR 240 mg 24 hr capsule 0 05-26 00:00: 00 Yes [id number] 240mg Take 1 capsule by mouth in the morning and 1 capsule in the evening. [facility] guanFACINE ER 2 mg tablet 0 05-26 00:00: 00 Yes [id number] 2mg Take 1 tablet by mouth at bedtime. [facility] diltiazem XR 240 mg 24 hr capsule 0 05-26 00:00: 00 Yes [id number] 240mg Take 1 capsule by mouth in the morning and 1 capsule in the evening. [facility] guanFACINE ER 2 mg tablet 0 05-26 00:00: 00 Yes [id number] 2mg Take 1 tablet by mouth at bedtime. [facility] diltiazem XR 240 mg 24 hr capsule 0 05-26 00:00: 00 Yes [id number] 240mg Take 1 capsule by mouth in the morning and 1 capsule in the evening. [facility] guanFACINE ER 2 mg tablet 0 25 00:00: 00 Yes [id number] 2mg Take 1 tablet by mouth at bedtime. [facility] diltiazem XR 240 mg 24 hr capsule 2022-0 25 00:00: 00 Yes [id number] 240mg Take 1 capsule by mouth in the morning and 1 capsule in the evening. [facility] guanFACINE ER 2 mg tablet 0 05-26 00:00: 00 Yes [id number] 2mg Take 1 tablet by mouth at bedtime. [facility] diltiazem XR 240 mg 24 hr capsule 2022-0 05-26 00:00: 00 Yes [id number] 240mg Take 1 capsule by mouth in the morning and 1 capsule in the evening. [facility] guanFACINE ER 2 mg tablet 0 05-26 00:00: 00 Yes [id number] 2mg Take 1 tablet by mouth at bedtime. [facility] diltiazem XR 240 mg 24 hr capsule 0 05-26 00:00: 00 Yes [id number] 240mg Take 1 capsule by mouth in the morning and 1 capsule in the evening. [facility] guanFACINE ER 2 mg tablet 0 05-26 00:00: 00 Yes [id number] 2mg Take 1 tablet by mouth at bedtime. [facility] diltiazem XR 240 mg 24 hr capsule 0 05-26 00:00: 00 Yes [id number] 240mg Take 1 capsule by mouth in the morning and 1 capsule in the evening. [facility] guanFACINE ER 2 mg tablet 0 05-26 00:00: 00 Yes [id number] 2mg Take 1 tablet by mouth at bedtime. [facility] guanFACINE ER 2 mg tablet 0 05-26 00:00: 00 Yes [id number] 2mg Take 1 tablet by mouth at bedtime. [facility] guanFACINE ER 2 mg tablet 2022-0 05-26 00:00: 00 Yes [id number] 2mg Take 1 tablet by mouth at bedtime. [facility] guanFACINE ER 2 mg tablet 2022-0 05-26 00:00: 00 Yes [id number] 2mg Take 1 tablet by mouth at bedtime. [facility] guanFACINE ER 2 mg tablet 0 05-26 00:00: 00 Yes [id number] 2mg Take 1 tablet by mouth at bedtime. [facility] guanFACINE ER 2 mg tablet 05-26 00:00: 00 Yes [id number] 2mg Take 1 tablet by mouth at bedtime. [facility] guanFACINE ER 2 mg tablet 05-26 00:00: 00 Yes [id number] 2mg Take 1 tablet by mouth at bedtime. [facility] guanFACINE ER 2 mg tablet 05-26 00:00: 00 Yes [id number] 2mg Take 1 tablet by mouth at bedtime. [facility] guanFACINE ER 2 mg tablet 05-26 00:00: 00 12-28 00:00 :00 No [id number] 2mg Take 1 tablet by mouth at bedtime. [facility] diltiazem XR 240 mg 24 hr capsule 05-26 00:00: 00 11-16 00:00 :00 No [id number] 240mg Take 1 capsule by mouth in the morning and 1 capsule in the evening. [facility] metoclopram deepak HCl 5 mg tablet 05-23 00:00: 00 Yes [id number] 5mg Take 1 tablet by mouth 2 (two) times daily before breakfast and dinner. [facility] metoclopram deepak HCl 5 mg tablet 05-23 00:00: 00 Yes [id number] 5mg Take 1 tablet by mouth 2 (two) times daily before breakfast and dinner. [facility] metoclopram deepak HCl 5 mg tablet 2022-0 05-23 00:00: 00 Yes [id number] 5mg Take 1 tablet by mouth 2 (two) times daily before breakfast and dinner. [facility] metoclopram deepak HCl 5 mg tablet 0 05-23 00:00: 00 Yes [id number] 5mg Take 1 tablet by mouth 2 (two) times daily before breakfast and dinner. [facility] metoclopram deepak HCl 5 mg tablet 2022-0 05-23 00:00: 00 Yes [id number] 5mg Take 1 tablet by mouth 2 (two) times daily before breakfast and dinner. [facility] metoclopram deepak HCl 5 mg tablet 3-0 -22 00:00: 00 Yes [id number] 5mg Take 1 tablet by mouth 2 (two) times daily before breakfast and dinner. [facility] metoclopram deepak HCl 5 mg tablet 3-0 -22 00:00: 00 Yes [id number] 5mg Take 1 tablet by mouth 2 (two) times daily before breakfast and dinner. [facility] metoclopram deepak HCl 5 mg tablet 3-0 -22 00:00: 00 Yes [id number] 5mg Take 1 tablet by mouth 2 (two) times daily before breakfast and dinner. [facility] metoclopram deepak HCl 5 mg tablet 3-0 -22 00:00: 00 Yes [id number] 5mg Take 1 tablet by mouth 2 (two) times daily before breakfast and dinner. [facility] metoclopram deepak HCl 5 mg tablet 3-0 -22 00:00: 00 Yes [id number] 5mg Take 1 tablet by mouth 2 (two) times daily before breakfast and dinner. [facility] metoclopram deepak HCl 5 mg tablet 3-0 -22 00:00: 00 Yes [id number] 5mg Take 1 tablet by mouth 2 (two) times daily before breakfast and dinner. [facility] metoclopram deepak HCl 5 mg tablet 3-0 -22 00:00: 00 Yes [id number] 5mg Take 1 tablet by mouth 2 (two) times daily before breakfast and dinner. [facility] metoclopram deepak HCl 5 mg tablet 3-0 -22 00:00: 00 Yes [id number] 5mg Take 1 tablet by mouth 2 (two) times daily before breakfast and dinner. [facility] metoclopram deepak HCl 5 mg tablet 3-0 -22 00:00: 00 Yes [id number] 5mg Take 1 tablet by mouth 2 (two) times daily before breakfast and dinner. [facility] metoclopram deepak HCl 5 mg tablet 3-0 1-22 00:00: 00 Yes [id number] 5mg Take 1 tablet by mouth 2 (two) times daily before breakfast and dinner. [facility] metoclopram deepak HCl 5 mg tablet 3-0 22 00:00: 00 Yes [id number] 5mg Take 1 tablet by mouth 2 (two) times daily before breakfast and dinner. [facility] metoclopram deepak HCl 5 mg tablet 3-0 22 00:00: 00 Yes [id number] 5mg Take 1 tablet by mouth 2 (two) times daily before breakfast and dinner. [facility] metoclopram deepak HCl 5 mg tablet 3-0 22 00:00: 00 Yes [id number] 5mg Take 1 tablet by mouth 2 (two) times daily before breakfast and dinner. [facility] metoclopram deepak HCl 5 mg tablet 3-0 05-23 00:00: 00 Yes [id number] 5mg Take 1 tablet by mouth 2 (two) times daily before breakfast and dinner. [facility] metoclopram deepak HCl 5 mg tablet 3-0 05-23 00:00: 00 Yes [id number] 5mg Take 1 tablet by mouth 2 (two) times daily before breakfast and dinner. [facility] metoclopram deepak HCl 5 mg tablet 3-0 05-23 00:00: 00 Yes [id number] 5mg Take 1 tablet by mouth 2 (two) times daily before breakfast and dinner. [facility] metoclopram deepak HCl 5 mg tablet 3-0 22 00:00: 00 Yes [id number] 5mg Take 1 tablet by mouth 2 (two) times daily before breakfast and dinner. [facility] metoclopram deepak HCl 5 mg tablet 3-0 22 00:00: 00 Yes [id number] 5mg Take 1 tablet by mouth 2 (two) times daily before breakfast and dinner. [facility] metoclopram deepak HCl 5 mg tablet 3-0 -22 00:00: 00 Yes [id number] 5mg Take 1 tablet by mouth 2 (two) times daily before breakfast and dinner. [facility] metoclopram deepak HCl 5 mg tablet 3-0 -22 00:00: 00 Yes [id number] 5mg Take 1 tablet by mouth 2 (two) times daily before breakfast and dinner. [facility] metoclopram deepak HCl 5 mg tablet 3-0 22 00:00: 00 Yes [id number] 5mg Take 1 tablet by mouth 2 (two) times daily before breakfast and dinner. [facility] metoclopram deepak HCl 5 mg tablet 3-0 22 00:00: 00 Yes [id number] 5mg Take 1 tablet by mouth 2 (two) times daily before breakfast and dinner. [facility] metoclopram deepak HCl 5 mg tablet 3-0 22 00:00: 00 Yes [id number] 5mg Take 1 tablet by mouth 2 (two) times daily before breakfast and dinner. [facility] metoclopram deepak HCl 5 mg tablet 3-0 05-23 00:00: 00 Yes [id number] 5mg Take 1 tablet by mouth 2 (two) times daily before breakfast and dinner. [facility] metoclopram deepak HCl 5 mg tablet 3-0 05-23 00:00: 00 Yes [id number] 5mg Take 1 tablet by mouth 2 (two) times daily before breakfast and dinner. [facility] metoclopram deepak HCl 5 mg tablet 3-0 05-23 00:00: 00 Yes [id number] 5mg Take 1 tablet by mouth 2 (two) times daily before breakfast and dinner. [facility] metoclopram deepak HCl 5 mg tablet 3-0 22 00:00: 00 Yes [id number] 5mg Take 1 tablet by mouth 2 (two) times daily before breakfast and dinner. [facility] metoclopram deepak HCl 5 mg tablet 3-0 22 00:00: 00 Yes [id number] 5mg Take 1 tablet by mouth 2 (two) times daily before breakfast and dinner. [facility] metoclopram deepak HCl 5 mg tablet 3-0 22 00:00: 00 Yes [id number] 5mg Take 1 tablet by mouth 2 (two) times daily before breakfast and dinner. [facility] metoclopram deepak HCl 5 mg tablet 3-0 1-22 00:00: 00 Yes [id number] 5mg Take 1 tablet by mouth 2 (two) times daily before breakfast and dinner. [facility] metoclopram deepak HCl 5 mg tablet 3-0 -22 00:00: 00 Yes [id number] 5mg Take 1 tablet by mouth 2 (two) times daily before breakfast and dinner. [facility] metoclopram deepak HCl 5 mg tablet 3-0 -22 00:00: 00 Yes [id number] 5mg Take 1 tablet by mouth 2 (two) times daily before breakfast and dinner. [facility] metoclopram deepak HCl 5 mg tablet 3-0 -22 00:00: 00 Yes [id number] 5mg Take 1 tablet by mouth 2 (two) times daily before breakfast and dinner. [facility] metoclopram deepak HCl 5 mg tablet 3-0 -22 00:00: 00 Yes [id number] 5mg Take 1 tablet by mouth 2 (two) times daily before breakfast and dinner. [facility] metoclopram deepak HCl 5 mg tablet 3-0 22 00:00: 00 Yes [id number] 5mg Take 1 tablet by mouth 2 (two) times daily before breakfast and dinner. [facility] metoclopram deepak HCl 5 mg tablet 3-0 22 00:00: 00 Yes [id number] 5mg Take 1 tablet by mouth 2 (two) times daily before breakfast and dinner. [facility] metoclopram deepak HCl 5 mg tablet 3-0 -22 00:00: 00 Yes [id number] 5mg Take 1 tablet by mouth 2 (two) times daily before breakfast and dinner. [facility] metoclopram deepak HCl 5 mg tablet 3-0 -22 00:00: 00 Yes [id number] 5mg Take 1 tablet by mouth 2 (two) times daily before breakfast and dinner. [facility] metoclopram deepak HCl 5 mg tablet 3-0 -22 00:00: 00 Yes [id number] 5mg Take 1 tablet by mouth 2 (two) times daily before breakfast and dinner. [facility] metoclopram deepak HCl 5 mg tablet 3-0 -22 00:00: 00 Yes [id number] 5mg Take 1 tablet by mouth 2 (two) times daily before breakfast and dinner. [facility] metoclopram deepak HCl 5 mg tablet 3-0 -22 00:00: 00 Yes [id number] 5mg Take 1 tablet by mouth 2 (two) times daily before breakfast and dinner. [facility] metoclopram deepak HCl 5 mg tablet 3-0 -22 00:00: 00 Yes [id number] 5mg Take 1 tablet by mouth 2 (two) times daily before breakfast and dinner. [facility] metoclopram deepak HCl 5 mg tablet 3-0 -22 00:00: 00 Yes [id number] 5mg Take 1 tablet by mouth 2 (two) times daily before breakfast and dinner. [facility] metoclopram deepak HCl 5 mg tablet 3-0 05-23 00:00: 00 Yes [id number] 5mg Take 1 tablet by mouth 2 (two) times daily before breakfast and dinner. [facility] metoclopram deepak HCl 5 mg tablet 3-0 22 00:00: 00 Yes [id number] 5mg Take 1 tablet by mouth 2 (two) times daily before breakfast and dinner. [facility] metoclopram deepak HCl 5 mg tablet 3-0 22 00:00: 00 Yes [id number] 5mg Take 1 tablet by mouth 2 (two) times daily before breakfast and dinner. [facility] metoclopram deepak HCl 5 mg tablet 3-0 22 00:00: 00 Yes [id number] 5mg Take 1 tablet by mouth 2 (two) times daily before breakfast and dinner. [facility] metoclopram deepak HCl 5 mg tablet 3-0 -22 00:00: 00 Yes [id number] 5mg Take 1 tablet by mouth 2 (two) times daily before breakfast and dinner. [facility] metoclopram deepak HCl 5 mg tablet 3-0 22 00:00: 00 01-24 00:00 :00 No [id number] 5mg Take 1 tablet by mouth 2 (two) times daily before breakfast and dinner. [facility] metoclopram deepak HCl 5 mg tablet 05-23 00:00: 00 01-24 00:00 :00 No [id number] 5mg Take 1 tablet by mouth 2 (two) times daily before breakfast and dinner. [facility] metoclopram deepak HCl 5 mg tablet 05-23 00:00: 00 01-24 00:00 :00 No [id number] 5mg Take 1 tablet by mouth 2 (two) times daily before breakfast and dinner. [facility] mycophenola te sodium 360 mg EC tablet 05-14 00:00: 00 Yes [id number] 360mg Take 1 tablet by mouth in the morning and 1 tablet at noon and 1 tablet in the evening. [facility] mycophenola te sodium 360 mg EC tablet 05-14 00:00: 00 Yes [id number] 360mg Take 1 tablet by mouth in the morning and 1 tablet at noon and 1 tablet in the evening. [facility] mycophenola te sodium 360 mg EC tablet 05-14 00:00: 00 Yes [id number] 360mg Take 1 tablet by mouth in the morning and 1 tablet at noon and 1 tablet in the evening. [facility] mycophenola te sodium 360 mg EC tablet 05-14 00:00: 00 Yes [id number] 360mg Take 1 tablet by mouth in the morning and 1 tablet at noon and 1 tablet in the evening. [facility] mycophenola te sodium 360 mg EC tablet 05-14 00:00: 00 Yes [id number] 360mg Take 1 tablet by mouth in the morning and 1 tablet at noon and 1 tablet in the evening. [facility] mycophenola te sodium 360 mg EC tablet 05-14 00:00: 00 Yes [id number] 360mg Take 1 tablet by mouth in the morning and 1 tablet at noon and 1 tablet in the evening. [facility] mycophenola te sodium 360 mg EC tablet 05-14 00:00: 00 Yes [id number] 360mg Take 1 tablet by mouth in the morning and 1 tablet at noon and 1 tablet in the evening. [facility] mycophenola te sodium 360 mg EC tablet 05-14 00:00: 00 Yes [id number] 360mg Take 1 tablet by mouth in the morning and 1 tablet at noon and 1 tablet in the evening. [facility] mycophenola te sodium 360 mg EC tablet 05-14 00:00: 00 Yes [id number] 360mg Take 1 tablet by mouth in the morning and 1 tablet at noon and 1 tablet in the evening. [facility] mycophenola te sodium 360 mg EC tablet 05-14 00:00: 00 Yes [id number] 360mg Take 1 tablet by mouth in the morning and 1 tablet at noon and 1 tablet in the evening. [facility] mycophenola te sodium 360 mg EC tablet 05-14 00:00: 00 07-12 00:00 :00 No [id number] 360mg Take 1 tablet by mouth in the morning and 1 tablet at noon and 1 tablet in the evening. [facility] darbepoetin michael 100 mcg/mL injection 05-13 00:00: 00 08-12 04:59 :00 No [id number] 9101 100ug inject 1 mL under the skin every 2 (two) weeks for 90 days. [facility] darbepoetin michael 100 mcg/mL injection 05-13 00:00: 00 08-12 04:59 :00 No [id number] 9101 100ug inject 1 mL under the skin every 2 (two) weeks for 90 days. [facility] darbepoetin michael 100 mcg/mL injection 05-13 00:00: 00 08-12 04:59 :00 No [id number] 9101 100ug inject 1 mL under the skin every 2 (two) weeks for 90 days. [facility] darbepoetin michael 100 mcg/mL injection 05-13 00:00: 00 08-12 04:59 :00 No [id number] 9101 100ug inject 1 mL under the skin every 2 (two) weeks for 90 days. [facility] darbepoetin michael 100 mcg/mL injection 05-13 00:00: 00 08-12 04:59 :00 No [id number] 9101 100ug inject 1 mL under the skin every 2 (two) weeks for 90 days. [facility] darbepoetin michael 100 mcg/mL injection 05-13 00:00: 00 08-12 04:59 :00 No [id number] 9101 100ug inject 1 mL under the skin every 2 (two) weeks for 90 days. [facility] darbepoetin michael 100 mcg/mL injection 05-13 00:00: 00 08-12 04:59 :00 No [id number] 9101 100ug inject 1 mL under the skin every 2 (two) weeks for 90 days. [facility] darbepoetin michael 100 mcg/mL injection 05-13 00:00: 00 08-12 04:59 :00 No [id number] 9101 100ug inject 1 mL under the skin every 2 (two) weeks for 90 days. [facility] darbepoetin michael 100 mcg/mL injection 05-13 00:00: 00 08-12 04:59 :00 No [id number] 9101 100ug inject 1 mL under the skin every 2 (two) weeks for 90 days. [facility] darbepoetin michael 100 mcg/mL injection 05-13 00:00: 00 08-12 04:59 :00 No [id number] 9101 100ug inject 1 mL under the skin every 2 (two) weeks for 90 days. [facility] darbepoetin michael 100 mcg/mL injection 0 05-13 00:00: 00 08-12 04:59 :00 No [id number] 9101 100ug inject 1 mL under the skin every 2 (two) weeks for 90 days. [facility] darbepoetin michael 100 mcg/mL injection 0 -12 00:00: 00 08-12 04:59 :00 No [id number] 9101 100ug inject 1 mL under the skin every 2 (two) weeks for 90 days. [facility] darbepoetin michael 100 mcg/mL injection 0 1-12 00:00: 00 08-12 04:59 :00 No [id number] 9101 100ug inject 1 mL under the skin every 2 (two) weeks for 90 days. [facility] darbepoetin michael 100 mcg/mL injection 0 12 00:00: 00 08-12 04:59 :00 No [id number] 9101 100ug inject 1 mL under the skin every 2 (two) weeks for 90 days. [facility] darbepoetin michael 100 mcg/mL injection 0 05-13 00:00: 00 08-12 04:59 :00 No [id number] 9101 100ug inject 1 mL under the skin every 2 (two) weeks for 90 days. [facility] ARTIFICIAL TEARS,DEXT7 0-HYPRO, OPHTHALMIC 05-12 16:08: [address] in each eye. [facility] aspirin 81 mg Cap 05-12 16:08: 11 Yes Take by mouth. [facility] ARTIFICIAL TEARS,DEXT7 0-HYPRO, OPHTHALMIC 05-12 16:08: [address] in each eye. [facility] aspirin 81 mg Cap 0 05-12 16:08: 11 Yes Take by mouth. [facility] ARTIFICIAL TEARS,DEXT7 0-HYPRO, OPHTHALMIC 0 05-12 16:08: [address] in each eye. [facility] aspirin 81 mg Cap 0 05-12 16:08: 11 Yes Take by mouth. [facility] ARTIFICIAL TEARS,DEXT7 0-HYPRO, OPHTHALMIC 0 05-12 16:08: [address] in each eye. [facility] aspirin 81 mg Cap 0 05-12 16:08: 11 Yes Take by mouth. [facility] ARTIFICIAL TEARS,DEXT7 0-HYPRO, OPHTHALMIC 2022-0 05-12 16:08: [address] in each eye. [facility] aspirin 81 mg Cap 2022-0 05-12 16:08: 11 Yes Take by mouth. [facility] ARTIFICIAL TEARS,DEXT7 0-HYPRO, OPHTHALMIC 2022-0 05-12 16:08: [address] in each eye. [facility] aspirin 81 mg Cap 2022-0 05-12 16:08: 11 Yes Take by mouth. [facility] ARTIFICIAL TEARS,DEXT7 0-HYPRO, OPHTHALMIC 2022-0 05-12 16:08: [address] in each eye. [facility] aspirin 81 mg Cap 2022-0 05-12 16:08: 11 Yes Take by mouth. [facility] ARTIFICIAL TEARS,DEXT7 0-HYPRO, OPHTHALMIC 0 05-12 16:08: [address] [facility] aspirin 81 mg Cap 0 05-12 16:08: 11 Yes Take by mouth. [facility] ARTIFICIAL TEARS,DEXT7 0-HYPRO, OPHTHALMIC 2022-0 05-12 16:08: [address] [facility] [facility] aspirin 81 mg Cap 0 05-12 16:08: 11 Yes Take by mouth. [facility] ARTIFICIAL TEARS,DEXT7 0-HYPRO, OPHTHALMIC 2022-0 05-12 16:08: [address] in each eye. [facility] aspirin 81 mg Cap 2022-0 05-12 16:08: 11 Yes Take by mouth. [facility] ARTIFICIAL TEARS,DEXT7 0-HYPRO, OPHTHALMIC 2022-0 05-12 16:08: [address] in each eye. [facility] aspirin 81 mg Cap 2022-0 05-12 16:08: 11 Yes Take by mouth. [facility] 0-HYPRO, OPHTHALMIC 2022-0 05-12 16:08: [address] [facility] eye[address] [facility] mg Cap 2022-0 05-12 16:08: 11 Yes Take by mouth. [facility] ARTIFICIAL TEARS,DEXT7 0-HYPRO, OPHTHALMIC 2022-0 05-12 16:08: [address] [facility] eye[address] [facility] aspirin 81 mg Cap 2022-0 05-12 16:08: 11 Yes Take by mouth. [facility] ARTIFICIAL TEARS,DEXT7 0-HYPRO, OPHTHALMIC 0 05-12 16:08: [address] in each eye. [facility] aspirin 81 mg Cap 0 05-12 16:08: 11 Yes Take by mouth. [facility] ARTIFICIAL TEARS,DEXT7 0-HYPRO, OPHTHALMIC 0 05-12 16:08: [address] in each eye. [facility] aspirin 81 mg Cap 0 05-12 16:08: 11 Yes Take by mouth. [facility]T7 0-HYPRO, OPHTHALMIC 0 05-12 16:08: [address] in each eye. [facility] aspirin 81 mg Cap 0 05-12 16:08: 11 Yes Take by mouth. [facility] ARTIFICIAL TEARS,DEXT7 0-HYPRO, OPHTHALMIC 0 05-12 16:08: [address] in each eye. [facility] aspirin 81 mg Cap 0 05-12 16:08: 11 Yes Take by mouth. [facility] ARTIFICIAL TEARS,DEXT7 0-HYPRO, OPHTHALMIC 05-12 16:08: [address] in each eye. [facility] aspirin 81 mg Cap 0 05-12 16:08: 11 Yes Take by mouth. [facility] NaCl 0.9% (NS) bolus infusion 500 mL 05-12 14:00: 00 05-12 15:15 :00 No 500mL at 999 mL/hr, 500 mL, IV Piggyback, ONCE, 1 dose, On Tue05/12/22 at 0800, STAT [facility] NaCl 0.9% (NS) bolus infusion 250 mL 05-12 08:30: 00 05-12 08:36 :00 No 250mL at 999 mL/hr, 250 mL, IV Piggyback, ONCE, 1 dose, On Tue05/12/22 at 0230, STAT [facility] guanFACINE (TENEX) tablet 1 mg 05-12 03:00: 00 Yes 1mg 1 mg, Oral, QHS, First dose on Tue05/11/22 at 2100, Until Discontinu ed, Routine [facility] pravastatin (PRAVACHOL) tablet 20 mg 05-12 03:00: 00 Yes 20mg 20 mg, Oral, QHS, First dose on Tue05/11/22 at 2100, Until Discontinu ed, Routine [facility] mycophenola te sodium (MYFORTIC) EC tablet 360 mg 05-12 03:00: 00 Yes 360mg 360 mg, Oral, QHS, First dose on Tue05/11/22 at 2100, Until Discontinu ed, Routine
managing member approving Restricted medication : RACHEAL SIERRA [facility] epoetin michael-epbx (RETACRIT) injection 8,000 Units 05-12 02:00: 00 05-12 02:37 :00 No 8000U 8,000 Units, Subcutaneo us, ONCE AT 1999, 1 dose, On Tue05/11/22 at 2000, Routine
managing member approving Restricted medication : RACHEAL SIERRA [facility] sulfamethox azole-trime thoprim (BACTRIM DS) 800-160 mg per tablet 05-12 00:00: 00 Yes [id number] 1{tbl} Take 1 tablet by mouth in the morning and 1 tablet in the evening. [facility] sulfamethox azole-trime thoprim (BACTRIM DS) 800-160 mg per tablet 05-12 00:00: 00 Yes [id number] 1{tbl} Take 1 tablet by mouth in the morning and 1 tablet in the evening. [facility] sulfamethox azole-trime thoprim (BACTRIM DS) 800-160 mg per tablet 05-12 00:00: 00 Yes [id number] 1{tbl} Take 1 tablet by mouth in the morning and 1 tablet in the evening. [facility] sulfamethox azole-trime thoprim (BACTRIM DS) 800-160 mg per tablet 05-12 00:00: 00 Yes [id number] 1{tbl} Take 1 tablet by mouth in the morning and 1 tablet in the evening. [facility] sulfamethox azole-trime thoprim (BACTRIM DS) 800-160 mg per tablet 05-12 00:00: 00 Yes [id number] 1{tbl} Take 1 tablet by mouth in the morning and 1 tablet in the evening. [facility] sulfamethox azole-trime thoprim (BACTRIM DS) 800-160 mg per tablet 05-12 00:00: 00 Yes [id number] 1{tbl} Take 1 tablet by mouth in the morning and 1 tablet in the evening. [facility] sulfamethox azole-trime thoprim (BACTRIM DS) 800-160 mg per tablet 05-12 00:00: 00 Yes [id number] 1{tbl} Take 1 tablet by mouth in the morning and 1 tablet in the evening. [facility] sulfamethox azole-trime thoprim (BACTRIM DS) 800-160 mg per tablet 05-12 00:00: 00 Yes [id number] 1{tbl} Take 1 tablet by mouth in the morning and 1 tablet in the evening. [facility] sulfamethox azole-trime thoprim (BACTRIM DS) 800-160 mg per tablet 05-12 00:00: 00 Yes [id number] 1{tbl} Take 1 tablet by mouth in the morning and 1 tablet in the evening. [facility] sulfamethox azole-trime thoprim (BACTRIM DS) 800-160 mg per tablet 05-12 00:00: 00 Yes [id number] 1{tbl} Take 1 tablet by mouth in the morning and 1 tablet in the evening. [facility] sulfamethox azole-trime thoprim (BACTRIM DS) 800-160 mg per tablet 05-12 00:00: 00 Yes [id number] 1{tbl} Take 1 tablet by mouth in the morning and 1 tablet in the evening. [facility] sulfamethox azole-trime thoprim (BACTRIM DS) 800-160 mg per tablet 05-12 00:00: 00 Yes [id number] 1{tbl} Take 1 tablet by mouth in the morning and 1 tablet in the evening. [facility] sulfamethox azole-trime thoprim (BACTRIM DS) 800-160 mg per tablet 05-12 00:00: 00 Yes [id number] 1{tbl} Take 1 tablet by mouth in the morning and 1 tablet in the evening. [facility] sulfamethox azole-trime thoprim (BACTRIM DS) 800-160 mg per tablet 05-12 00:00: 00 Yes [id number] 1{tbl} Take 1 tablet by mouth in the morning and 1 tablet in the evening. [facility] sulfamethox azole-trime thoprim (BACTRIM DS) 800-160 mg per tablet 05-12 00:00: 00 Yes [id number] 1{tbl} Take 1 tablet by mouth in the morning and 1 tablet in the evening. [facility] sulfamethox azole-trime thoprim (BACTRIM DS) 800-160 mg per tablet 05-12 00:00: 00 Yes [id number] 1{tbl} Take 1 tablet by mouth in the morning and 1 tablet in the evening. [facility] sulfamethox azole-trime thoprim (BACTRIM DS) 800-160 mg per tablet 05-12 00:00: 00 Yes [id number] 1{tbl} Take 1 tablet by mouth in the morning and 1 tablet in the evening. [facility] sulfamethox azole-trime thoprim (BACTRIM DS) 800-160 mg per tablet 05-12 00:00: 00 Yes [id number] 1{tbl} Take 1 tablet by mouth in the morning and 1 tablet in the evening. [facility] sulfamethox azole-trime thoprim (BACTRIM DS) 800-160 mg per tablet 05-12 00:00: 00 Yes [id number] 1{tbl} Take 1 tablet by mouth in the morning and 1 tablet in the evening. [facility] sulfamethox azole-trime thoprim (BACTRIM DS) 800-160 mg per tablet 05-12 00:00: 00 08-20 00:00 :00 No [id number] 1{tbl} Take 1 tablet by mouth in the morning and 1 tablet in the evening. [facility] diphenhydrA MINE (BENADRYL) tablet 25 mg 05-11 22:32: 25 Yes 25mg 25 mg, Oral, Q6HPRN, Starting on Tue05/11/22 at 1632, Until Discontinu ed, Routine, nausea [facility] NaCl 0.9% (NS) bolus infusion 1,000 mL 05-11 22:00: 00 05-11 22:00 :00 No 1000mL at 999 mL/hr, 1,000 mL, IV Piggyback, ONCE, 1 dose, On Tue05/11/22 at 1600, STAT [facility] guanFACINE (TENEX) tablet 1 mg 05-11 19:34: 00 05-11 19:52 :00 No 1mg 1 mg, Oral, ONCE, 1 dose, On Tue05/11/22 at 1345, Routine [facility] ondansetron (ZOFRAN) tablet 4 mg 05-11 18:37: 04 Yes 4mg 4 mg, Oral, Q6HPRN, Starting on Tue05/11/22 at 1237, Until Discontinu ed, Routine, Nausea and Vomiting (N/V) [facility] famotidine (PEPCID AC) tablet 20 mg 05-11 15:00: 00 Yes 20mg 20 mg, Oral, DAILY, First dose on Tue05/11/22 at 0900, Until Discontinu ed, Routine [facility] predniSONE (DELTASONE) tablet 10 mg 05-11 15:00: 00 Yes 10mg 10 mg, Oral, DAILY, First dose on Tue05/11/22 at 0900, Until Discontinu ed, Routine [facility] norgestimat e-ethinyl estradioL (VYLIBRA) 0.25-35 mg-mcg per tablet 1 tablet 05-11 15:00: 00 Yes 1{tbl} 1 tablet, Oral, DAILY, First dose on Tue05/11/22 at 0900, Until Discontinu ed, Routine
managing member approving Restricted medication : ROBERT ARROYO II [facility] mycophenola te sodium (MYFORTIC) EC tablet 720 mg 05-11 15:00: 00 Yes 720mg 720 mg, Oral, QAM, First dose on Tue05/11/22 at 0900, Until Discontinu ed, Routine
managing member approving Restricted medication : RACHEAL SIERRA [facility] diltiazem XR (DILT-XR) capsule 240 mg 05-11 14:00: 00 Yes 240mg 240 mg, Oral, BID, First dose on Tue05/11/22 at 0800, Until Discontinu ed, Routine [facility] acetaminoph en (TYLENOL) tablet 650 mg 05-11 08:24: 13 Yes 650mg 650 mg, Oral, Q6HPRN, Starting on Tue05/11/22 at 0224, Until Discontinu ed, Routine, Pain (scale 1-3) [facility] cefTRIAXone (ROCEPHIN) 1,000 mg in NaCl 0.9% (NS) 50 mL MINI-BAG 05-11 07:00: 00 05-11 08:34 :00 No 1000mg 1,000 mg, IV Piggyback, ONCE, 1 dose, On Tue05/11/22 at 0100, Administer over 30 Minutes, 50 mL
Reas on for Anti-Infec tive: Documented Infection< br>Documen josué Infection Site: Urine
D uration of Therapy: 7 days [facility] mycophenola te sodium 360 mg EC tablet 2021-05 00:00: 00 Yes [id number] 360mg Take 1 tablet by mouth every 12 (twelve) hours. [facility] mycophenola te sodium 360 mg EC tablet 2021-05 00:00: 00 Yes [id number] 360mg Take 1 tablet by mouth every 12 (twelve) hours. [facility] mycophenola te sodium 360 mg EC tablet 2021-05 00:00: 00 Yes [id number] 360mg Take 1 tablet by mouth every 12 (twelve) hours. [facility] mycophenola te sodium 360 mg EC tablet 2021-05 00:00: 00 Yes [id number] 360mg Take 1 tablet by mouth every 12 (twelve) hours. [facility] mycophenola te sodium 360 mg EC tablet 2021-05 00:00: 00 Yes [id number] 360mg Take 1 tablet by mouth every 12 (twelve) hours. [facility] mycophenola te sodium 360 mg EC tablet 2021-05 00:00: 00 Yes [id number] 360mg Take 1 tablet by mouth every 12 (twelve) hours. [facility] mycophenola te sodium 360 mg EC tablet 2021-05 00:00: 00 05-14 00:00 :00 No [id number] 360mg Take 1 tablet by mouth every 12 (twelve) hours. [facility] mycophenola te sodium 360 mg EC tablet 2021-05 00:00: 00 05-14 00:00 :00 No [id number] 360mg Take 1 tablet by mouth every 12 (twelve) hours. [facility] Sirolimus 0.5 mg tablet 2021-05 00:00: 00 Yes [id number] .5mg Take 1 tablet by mouth every other day. [facility] Sirolimus 0.5 mg tablet 2021-05 00:00: 00 Yes [id number] .5mg Take 1 tablet by mouth every other day. [facility] Sirolimus 0.5 mg tablet 2021-05 00:00: 00 04-27 00:00 :00 No [id number] .5mg Take 1 tablet by mouth every other day. [facility] GUANFACINE ER 2 mg tablet 2021-05 00:00: 00 Yes [id number] TAKE 1 TABLET BY MOUTH EVERYDAY AT BEDTIME [facility] GUANFACINE ER 2 mg tablet 2021-05 00:00: 00 Yes [id number] TAKE 1 TABLET BY MOUTH EVERYDAY AT BEDTIME [facility] GUANFACINE ER 2 mg tablet 2021-05 00:00: 00 Yes [id number] TAKE 1 TABLET BY MOUTH EVERYDAY AT BEDTIME [facility] GUANFACINE ER 2 mg tablet 2021-05 00:00: 00 Yes [id number] TAKE 1 TABLET BY MOUTH EVERYDAY AT BEDTIME [facility] GUANFACINE ER 2 mg tablet 2021-05 00:00: 00 Yes [id number] TAKE 1 TABLET BY MOUTH EVERYDAY AT BEDTIME [facility] GUANFACINE ER 2 mg tablet 2021-05 00:00: 00 Yes [id number] TAKE 1 TABLET BY MOUTH EVERYDAY AT BEDTIME [facility] GUANFACINE ER 2 mg tablet 2021-05 00:00: 00 Yes [id number] TAKE 1 TABLET BY MOUTH EVERYDAY AT BEDTIME [facility] GUANFACINE ER 2 mg tablet 2021-05 00:00: 00 Yes [id number] TAKE 1 TABLET BY MOUTH EVERYDAY AT BEDTIME [facility] GUANFACINE ER 2 mg tablet 2021-05 00:00: 00 Yes [id number] TAKE 1 TABLET BY MOUTH EVERYDAY AT BEDTIME [facility] GUANFACINE ER 2 mg tablet 2021-05 00:00: 00 Yes [id number] TAKE 1 TABLET BY MOUTH EVERYDAY AT BEDTIME [facility] GUANFACINE ER 2 mg tablet 2021-05 00:00: 00 Yes [id number] TAKE 1 TABLET BY MOUTH EVERYDAY AT BEDTIME [facility] GUANFACINE ER 2 mg tablet 2021-05 00:00: 00 Yes [id number] TAKE 1 TABLET BY MOUTH EVERYDAY AT BEDTIME [facility] GUANFACINE ER 2 mg tablet 2021-05 00:00: 00 Yes [id number] TAKE 1 TABLET BY MOUTH EVERYDAY AT BEDTIME [facility] GUANFACINE ER 2 mg tablet 2021-05 00:00: 00 05-26 00:00 :00 No [id number] TAKE 1 TABLET BY MOUTH EVERYDAY AT BEDTIME [facility] Sirolimus 0.5 mg tablet 2021-05 00:00: 00 Yes [id number] .5mg Take 1 tablet by mouth in the morning. [facility] Sirolimus 0.5 mg tablet 2021-05 00:00: 00 Yes [id number] .5mg Take 1 tablet by mouth in the morning. [facility] Sirolimus 0.5 mg tablet 2021-05 00:00: 00 Yes [id number] .5mg Take 1 tablet by mouth in the morning. [facility] Sirolimus 0.5 mg tablet 2021-05 00:00: 00 03-19 00:00 :00 No [id number] .5mg Take 1 tablet by mouth in the morning. [facility] metoclopram deepak HCl 5 mg tablet 2021-0514 00:00: 00 Yes [id number] 5mg Take 1 tablet by mouth 2 (two) times daily before breakfast and dinner. [facility] metoclopram deepak HCl 5 mg tablet 2021-05 014 00:00: 00 Yes [id number] 5mg Take 1 tablet by mouth 2 (two) times daily before breakfast and dinner. [facility] metoclopram deepak HCl 5 mg tablet 2021-05 014 00:00: 00 Yes [id number] 5mg Take 1 tablet by mouth 2 (two) times daily before breakfast and dinner. [facility] metoclopram deepak HCl 5 mg tablet 2021-05 014 00:00: 00 Yes [id number] 5mg Take 1 tablet by mouth 2 (two) times daily before breakfast and dinner. [facility] metoclopram deepak HCl 5 mg tablet 2021-1 0-14 00:00: 00 Yes [id number] 5mg Take 1 tablet by mouth 2 (two) times daily before breakfast and dinner. [facility] metoclopram deepak HCl 5 mg tablet 2021-1 0-14 00:00: 00 Yes [id number] 5mg Take 1 tablet by mouth 2 (two) times daily before breakfast and dinner. [facility] metoclopram deepak HCl 5 mg tablet 2021- 0-14 00:00: 00 Yes [id number] 5mg Take 1 tablet by mouth 2 (two) times daily before breakfast and dinner. [facility] metoclopram deepak HCl 5 mg tablet 2021- 0-14 00:00: 00 Yes [id number] 5mg Take 1 tablet by mouth 2 (two) times daily before breakfast and dinner. [facility] metoclopram deepak HCl 5 mg tablet 2021- 0-14 00:00: 00 Yes [id number] 5mg Take 1 tablet by mouth 2 (two) times daily before breakfast and dinner. [facility] metoclopram deepak HCl 5 mg tablet 2021- 0-14 00:00: 00 Yes [id number] 5mg Take 1 tablet by mouth 2 (two) times daily before breakfast and dinner. [facility] metoclopram deepak HCl 5 mg tablet 2021-1 0-14 00:00: 00 Yes [id number] 5mg Take 1 tablet by mouth 2 (two) times daily before breakfast and dinner. [facility] metoclopram deepak HCl 5 mg tablet 2021-1 0-14 00:00: 00 Yes [id number] 5mg Take 1 tablet by mouth 2 (two) times daily before breakfast and dinner. [facility] metoclopram deepak HCl 5 mg tablet 2021-1 0-14 00:00: 00 Yes [id number] 5mg Take 1 tablet by mouth 2 (two) times daily before breakfast and dinner. [facility] metoclopram deepak HCl 5 mg tablet 2021-1 0-14 00:00: 00 Yes [id number] 5mg Take 1 tablet by mouth 2 (two) times daily before breakfast and dinner. [facility] metoclopram deepak HCl 5 mg tablet 2021-05 0-14 00:00: 00 Yes [id number] 5mg Take 1 tablet by mouth 2 (two) times daily before breakfast and dinner. [facility] metoclopram deepak HCl 5 mg tablet 2021-05 0-14 00:00: 00 Yes [id number] 5mg Take 1 tablet by mouth 2 (two) times daily before breakfast and dinner. [facility] metoclopram deepak HCl 5 mg tablet 2021-05 0-14 00:00: 00 Yes [id number] 5mg Take 1 tablet by mouth 2 (two) times daily before breakfast and dinner. [facility] metoclopram deepak HCl 5 mg tablet 2021-05 0-14 00:00: 00 Yes [id number] 5mg Take 1 tablet by mouth 2 (two) times daily before breakfast and dinner. [facility] metoclopram deepak HCl 5 mg tablet 2021-05 0-14 00:00: 00 Yes [id number] 5mg Take 1 tablet by mouth 2 (two) times daily before breakfast and dinner. [facility] metoclopram deepak HCl 5 mg tablet 2021-05 0-14 00:00: 00 05-21 00:00 :00 No [id number] 5mg Take 1 tablet by mouth 2 (two) times daily before breakfast and dinner. [facility] sirolimus 1 mg tablet 2021-05 0-13 00:00: 00 Yes [id number] 1mg Take 1 tablet by mouth in the morning. [facility] sirolimus 1 mg tablet 2021-05 0-13 00:00: 00 Yes [id number] 1mg Take 1 tablet by mouth in the morning. [facility] sirolimus 1 mg tablet 2021-05 0-13 00:00: 00 Yes [id number] 1mg Take 1 tablet by mouth in the morning. [facility] sirolimus 1 mg tablet 2021-05 0-13 00:00: 00 Yes [id number] 1mg Take 1 tablet by mouth in the morning. [facility] sirolimus 1 mg tablet 2021-05 0-13 00:00: 00 03-10 00:00 :00 No [id number] 1mg Take 1 tablet by mouth in the morning. [facility] sirolimus 1 mg tablet 2021-05 0-13 00:00: 00 03-10 00:00 :00 No [id number] 1mg Take 1 tablet by mouth in the morning. [facility] sirolimus 1 mg tablet 2021-05 0-13 00:00: 00 03-10 00:00 :00 No [id number] 1mg Take 1 tablet by mouth in the morning. [facility] fluconazole 150 mg tablet 12-29 00:00: 00 01-02 04:59 :00 No [id number] 150mg Take 1 tablet by mouth in the morning for 3 doses. [facility] guanFACINE ER 2 mg tablet 12-28 00:00: 00 Yes [id number] 2mg Take 1 tablet by mouth at bedtime. [facility] guanFACINE ER 2 mg tablet 0 12-28 00:00: 00 Yes [id number] 2mg Take 1 tablet by mouth at bedtime. [facility] guanFACINE ER 2 mg tablet 12-28 00:00: 00 Yes [id number] 2mg Take 1 tablet by mouth at bedtime. [facility] guanFACINE ER 2 mg tablet 2021-0 12-28 00:00: 00 Yes [id number] 2mg Take 1 tablet by mouth at bedtime. [facility] guanFACINE ER 2 mg tablet 2021-0 12-28 00:00: 00 Yes [id number] 2mg Take 1 tablet by mouth at bedtime. [facility] guanFACINE ER 2 mg tablet 0 8 00:00: 00 Yes [id number] 2mg Take 1 tablet by mouth at bedtime. [facility] guanFACINE ER 2 mg tablet 2021-0 8 00:00: 00 Yes [id number] 2mg Take 1 tablet by mouth at bedtime. [facility] guanFACINE ER 2 mg tablet 2021-0 829 00:00: 00 Yes [id number] 2mg Take 1 tablet by mouth at bedtime. [facility] guanFACINE ER 2 mg tablet 2021-0 12-28 00:00: 00 Yes [id number] 2mg Take 1 tablet by mouth at bedtime. [facility] guanFACINE ER 2 mg tablet 2021-0 12-28 00:00: 00 03-16 00:00 :00 No [id number] 2mg Take 1 tablet by mouth at bedtime. [facility] guanFACINE ER 2 mg tablet 0 12-28 00:00: 00 03-16 00:00 :00 No [id number] 2mg Take 1 tablet by mouth at bedtime. [facility] guanFACINE ER 2 mg tablet 0 12-28 00:00: 00 03-16 00:00 :00 No [id number] 2mg Take 1 tablet by mouth at bedtime. [facility] DILTIAZEM XR 240 mg 24 hr capsule 2021-0 12-10 00:00: 00 Yes [id number] TAKE 1 CAPSULE BY MOUTH TWICE A DAY [facility] DILTIAZEM XR 240 mg 24 hr capsule 2021-0 12-10 00:00: 00 Yes [id number] TAKE 1 CAPSULE BY MOUTH TWICE A DAY [facility] DILTIAZEM XR 240 mg 24 hr capsule 2021-0 12-10 00:00: 00 Yes [id number] TAKE 1 CAPSULE BY MOUTH TWICE A DAY [facility] DILTIAZEM XR 240 mg 24 hr capsule 2021-0 8 00:00: 00 Yes [id number] TAKE 1 CAPSULE BY MOUTH TWICE A DAY [facility] DILTIAZEM XR 240 mg 24 hr capsule 2-0 8 00:00: 00 Yes [id number] TAKE 1 CAPSULE BY MOUTH TWICE A DAY [facility] DILTIAZEM XR 240 mg 24 hr capsule 2-0 8 00:00: 00 Yes [id number] TAKE 1 CAPSULE BY MOUTH TWICE A DAY [facility] DILTIAZEM XR 240 mg 24 hr capsule 2-0 8 00:00: 00 Yes [id number] TAKE 1 CAPSULE BY MOUTH TWICE A DAY [facility] DILTIAZEM XR 240 mg 24 hr capsule 2-0 8-11 00:00: 00 Yes [id number] TAKE 1 CAPSULE BY MOUTH TWICE A DAY [facility] DILTIAZEM XR 240 mg 24 hr capsule 2-0 8-11 00:00: 00 Yes [id number] TAKE 1 CAPSULE BY MOUTH TWICE A DAY [facility] DILTIAZEM XR 240 mg 24 hr capsule 2-0 8-11 00:00: 00 Yes [id number] TAKE 1 CAPSULE BY MOUTH TWICE A DAY [facility] DILTIAZEM XR 240 mg 24 hr capsule 2-0 8-11 00:00: 00 Yes [id number] TAKE 1 CAPSULE BY MOUTH TWICE A DAY [facility] DILTIAZEM XR 240 mg 24 hr capsule 2-0 8-11 00:00: 00 Yes [id number] TAKE 1 CAPSULE BY MOUTH TWICE A DAY [facility] DILTIAZEM XR 240 mg 24 hr capsule 2-0 8-11 00:00: 00 Yes [id number] TAKE 1 CAPSULE BY MOUTH TWICE A DAY [facility] DILTIAZEM XR 240 mg 24 hr capsule 2-0 8- 00:00: 00 Yes [id number] TAKE 1 CAPSULE BY MOUTH TWICE A DAY [facility] DILTIAZEM XR 240 mg 24 hr capsule 2-0 8-11 00:00: 00 Yes [id number] TAKE 1 CAPSULE BY MOUTH TWICE A DAY [facility] DILTIAZEM XR 240 mg 24 hr capsule 2-0 8-11 00:00: 00 Yes [id number] TAKE 1 CAPSULE BY MOUTH TWICE A DAY [facility] DILTIAZEM XR 240 mg 24 hr capsule 2-0 8-11 00:00: 00 Yes [id number] TAKE 1 CAPSULE BY MOUTH TWICE A DAY [facility] DILTIAZEM XR 240 mg 24 hr capsule 2-0 8-11 00:00: 00 Yes [id number] TAKE 1 CAPSULE BY MOUTH TWICE A DAY [facility] DILTIAZEM XR 240 mg 24 hr capsule 2-0 8-11 00:00: 00 Yes [id number] TAKE 1 CAPSULE BY MOUTH TWICE A DAY [facility] DILTIAZEM XR 240 mg 24 hr capsule 2021-0 8- 00:00: 00 Yes [id number] TAKE 1 CAPSULE BY MOUTH TWICE A DAY [facility] DILTIAZEM XR 240 mg 24 hr capsule 0 8- 00:00: 00 Yes [id number] TAKE 1 CAPSULE BY MOUTH TWICE A DAY [facility] DILTIAZEM XR 240 mg 24 hr capsule 2021-0 8- 00:00: 00 Yes [id number] TAKE 1 CAPSULE BY MOUTH TWICE A DAY [facility] DILTIAZEM XR 240 mg 24 hr capsule 0 8- 00:00: 00 Yes [id number] TAKE 1 CAPSULE BY MOUTH TWICE A DAY [facility] DILTIAZEM XR 240 mg 24 hr capsule 0 8- 00:00: 00 Yes [id number] TAKE 1 CAPSULE BY MOUTH TWICE A DAY [facility] DILTIAZEM XR 240 mg 24 hr capsule 20210 8- 00:00: 00 Yes [id number] TAKE 1 CAPSULE BY MOUTH TWICE A DAY [facility] DILTIAZEM XR 240 mg 24 hr capsule 0 8 00:00: 00 Yes [id number] TAKE 1 CAPSULE BY MOUTH TWICE A DAY [facility] DILTIAZEM XR 240 mg 24 hr capsule 0 8 00:00: 00 Yes [id number] TAKE 1 CAPSULE BY MOUTH TWICE A DAY [facility] DILTIAZEM XR 240 mg 24 hr capsule 8 00:00: 00 05-26 00:00 :00 No [id number] TAKE 1 CAPSULE BY MOUTH TWICE A DAY [facility] pravastatin 20 mg tablet 10-16 00:00: 00 Yes [id number] 20mg Take 1 tablet by mouth at bedtime. [facility] norgestimat e-ethinyl estradioL (SPRINTEC) 0.25-35 mg-mcg per tablet 10-16 00:00: 00 Yes [id number] 1{tbl} Take 1 tablet by mouth daily. [facility] pravastatin 20 mg tablet 10-16 00:00: 00 Yes [id number] 20mg Take 1 tablet by mouth at bedtime. [facility] norgestimat e-ethinyl estradioL (SPRINTEC) 0.25-35 mg-mcg per tablet 10-16 00:00: 00 Yes [id number] 1{tbl} Take 1 tablet by mouth daily. [facility] pravastatin 20 mg tablet 10-16 00:00: 00 Yes [id number] 20mg Take 1 tablet by mouth at bedtime. [facility] norgestimat e-ethinyl estradioL (SPRINTEC) 0.25-35 mg-mcg per tablet 10-16 00:00: 00 Yes [id number] 1{tbl} Take 1 tablet by mouth daily. [facility] pravastatin 20 mg tablet 10-16 00:00: 00 Yes [id number] 20mg Take 1 tablet by mouth at bedtime. [facility] norgestimat e-ethinyl estradioL (SPRINTEC) 0.25-35 mg-mcg per tablet 10-16 00:00: 00 Yes [id number] 1{tbl} Take 1 tablet by mouth daily. [facility] pravastatin 20 mg tablet 10-16 00:00: 00 Yes [id number] 20mg Take 1 tablet by mouth at bedtime. [facility] norgestimat e-ethinyl estradioL (SPRINTEC) 0.25-35 mg-mcg per tablet 10-16 00:00: 00 Yes [id number] 1{tbl} Take 1 tablet by mouth daily. [facility] pravastatin 20 mg tablet 10-16 00:00: 00 Yes [id number] 20mg Take 1 tablet by mouth at bedtime. [facility] norgestimat e-ethinyl estradioL (SPRINTEC) 0.25-35 mg-mcg per tablet 10-16 00:00: 00 Yes [id number] 1{tbl} Take 1 tablet by mouth daily. [facility] pravastatin 20 mg tablet 10-16 00:00: 00 Yes [id number] 20mg Take 1 tablet by mouth at bedtime. [facility] norgestimat e-ethinyl estradioL (SPRINTEC) 0.25-35 mg-mcg per tablet 10-16 00:00: 00 Yes [id number] 1{tbl} Take 1 tablet by mouth daily. [facility] pravastatin 20 mg tablet 10-16 00:00: 00 Yes [id number] 20mg Take 1 tablet by mouth at bedtime. [facility] norgestimat e-ethinyl estradioL (SPRINTEC) 0.25-35 mg-mcg per tablet 10-16 00:00: 00 Yes [id number] 1{tbl} Take 1 tablet by mouth daily. [facility] pravastatin 20 mg tablet 10-16 00:00: 00 Yes [id number] 20mg Take 1 tablet by mouth at bedtime. [facility] norgestimat e-ethinyl estradioL (SPRINTEC) 0.25-35 mg-mcg per tablet 10-16 00:00: 00 Yes [id number] 1{tbl} Take 1 tablet by mouth daily. [facility] pravastatin 20 mg tablet 10-16 00:00: 00 Yes [id number] 20mg Take 1 tablet by mouth at bedtime. [facility] norgestimat e-ethinyl estradioL (SPRINTEC) 0.25-35 mg-mcg per tablet 10-16 00:00: 00 Yes [id number] 1{tbl} Take 1 tablet by mouth daily. [facility] pravastatin 20 mg tablet 10-16 00:00: 00 Yes [id number] 20mg Take 1 tablet by mouth at bedtime. [facility] norgestimat e-ethinyl estradioL (SPRINTEC) 0.25-35 mg-mcg per tablet 10-16 00:00: 00 Yes [id number] 1{tbl} Take 1 tablet by mouth daily. [facility] pravastatin 20 mg tablet 0 10-16 00:00: 00 Yes [id number] 20mg Take 1 tablet by mouth at bedtime. [facility] norgestimat e-ethinyl estradioL (SPRINTEC) 0.25-35 mg-mcg per tablet 0 10-16 00:00: 00 Yes [id number] 1{tbl} Take 1 tablet by mouth daily. [facility] pravastatin 20 mg tablet 10-16 00:00: 00 Yes [id number] 20mg Take 1 tablet by mouth at bedtime. [facility] norgestimat e-ethinyl estradioL (SPRINTEC) 0.25-35 mg-mcg per tablet 10-16 00:00: 00 Yes [id number] 1{tbl} Take 1 tablet by mouth daily. [facility] pravastatin 20 mg tablet 10-16 00:00: 00 Yes [id number] 20mg Take 1 tablet by mouth at bedtime. [facility] norgestimat e-ethinyl estradioL (SPRINTEC) 0.25-35 mg-mcg per tablet 10-16 00:00: 00 Yes [id number] 1{tbl} Take 1 tablet by mouth daily. [facility] pravastatin 20 mg tablet 10-16 00:00: 00 Yes [id number] 20mg Take 1 tablet by mouth at bedtime. [facility] norgestimat e-ethinyl estradioL (SPRINTEC) 0.25-35 mg-mcg per tablet 10-16 00:00: 00 Yes [id number] 1{tbl} Take 1 tablet by mouth daily. [facility] pravastatin 20 mg tablet 10-16 00:00: 00 Yes [id number] 20mg Take 1 tablet by mouth at bedtime. [facility] norgestimat e-ethinyl estradioL (SPRINTEC) 0.25-35 mg-mcg per tablet 0 10-16 00:00: 00 Yes [id number] 1{tbl} Take 1 tablet by mouth daily. [facility] pravastatin 20 mg tablet 0 10-16 00:00: 00 Yes [id number] 20mg Take 1 tablet by mouth at bedtime. [facility] norgestimat e-ethinyl estradioL (SPRINTEC) 0.25-35 mg-mcg per tablet 0 10-16 00:00: 00 Yes [id number] 1{tbl} Take 1 tablet by mouth daily. [facility] pravastatin 20 mg tablet 0 10-16 00:00: 00 Yes [id number] 20mg Take 1 tablet by mouth at bedtime. [facility] norgestimat e-ethinyl estradioL (SPRINTEC) 0.25-35 mg-mcg per tablet 10-16 00:00: 00 Yes [id number] 1{tbl} Take 1 tablet by mouth daily. [facility] pravastatin 20 mg tablet 10-16 00:00: 00 Yes [id number] 20mg Take 1 tablet by mouth at bedtime. [facility] norgestimat e-ethinyl estradioL (SPRINTEC) 0.25-35 mg-mcg per tablet 10-16 00:00: 00 Yes [id number] 1{tbl} Take 1 tablet by mouth daily. [facility] pravastatin 20 mg tablet 10-16 00:00: 00 Yes [id number] 20mg Take 1 tablet by mouth at bedtime. [facility] norgestimat e-ethinyl estradioL (SPRINTEC) 0.25-35 mg-mcg per tablet 10-16 00:00: 00 Yes [id number] 1{tbl} Take 1 tablet by mouth daily. [facility] pravastatin 20 mg tablet 0 10-16 00:00: 00 Yes [id number] 20mg Take 1 tablet by mouth at bedtime. [facility] norgestimat e-ethinyl estradioL (SPRINTEC) 0.25-35 mg-mcg per tablet 10-16 00:00: 00 Yes [id number] 1{tbl} Take 1 tablet by mouth daily. [facility] pravastatin 20 mg tablet 0 10-16 00:00: 00 Yes [id number] 20mg Take 1 tablet by mouth at bedtime. [facility] norgestimat e-ethinyl estradioL (SPRINTEC) 0.25-35 mg-mcg per tablet 10-16 00:00: 00 Yes [id number] 1{tbl} Take 1 tablet by mouth daily. [facility] pravastatin 20 mg tablet 0 10-16 00:00: 00 Yes [id number] 20mg Take 1 tablet by mouth at bedtime. [facility] norgestimat e-ethinyl estradioL (SPRINTEC) 0.25-35 mg-mcg per tablet 10-16 00:00: 00 Yes [id number] 1{tbl} Take 1 tablet by mouth daily. [facility] pravastatin 20 mg tablet 10-16 00:00: 00 Yes [id number] 20mg Take 1 tablet by mouth at bedtime. [facility] norgestimat e-ethinyl estradioL (SPRINTEC) 0.25-35 mg-mcg per tablet 10-16 00:00: 00 Yes [id number] 1{tbl} Take 1 tablet by mouth daily. [facility] pravastatin 20 mg tablet 10-16 00:00: 00 Yes [id number] 20mg Take 1 tablet by mouth at bedtime. [facility] norgestimat e-ethinyl estradioL (SPRINTEC) 0.25-35 mg-mcg per tablet 10-16 00:00: 00 Yes [id number] 1{tbl} Take 1 tablet by mouth daily. [facility] pravastatin 20 mg tablet 10-16 00:00: 00 Yes [id number] 20mg Take 1 tablet by mouth at bedtime. [facility] norgestimat e-ethinyl estradioL (SPRINTEC) 0.25-35 mg-mcg per tablet 0 10-16 00:00: 00 Yes [id number] 1{tbl} Take 1 tablet by mouth daily. [facility] pravastatin 20 mg tablet 10-16 00:00: 00 Yes [id number] 20mg Take 1 tablet by mouth at bedtime. [facility] norgestimat e-ethinyl estradioL (SPRINTEC) 0.25-35 mg-mcg per tablet 10-16 00:00: 00 Yes [id number] 1{tbl} Take 1 tablet by mouth daily. [facility] pravastatin 20 mg tablet 10-16 00:00: 00 Yes [id number] 20mg Take 1 tablet by mouth at bedtime. [facility] norgestimat e-ethinyl estradioL (SPRINTEC) 0.25-35 mg-mcg per tablet 10-16 00:00: 00 Yes [id number] 1{tbl} Take 1 tablet by mouth daily. [facility] pravastatin 20 mg tablet 10-16 00:00: 00 Yes [id number] 20mg Take 1 tablet by mouth at bedtime. [facility] norgestimat e-ethinyl estradioL (SPRINTEC) 0.25-35 mg-mcg per tablet 10-16 00:00: 00 Yes [id number] 1{tbl} Take 1 tablet by mouth daily. [facility] pravastatin 20 mg tablet 10-16 00:00: 00 Yes [id number] 20mg Take 1 tablet by mouth at bedtime. [facility] norgestimat e-ethinyl estradioL (SPRINTEC) 0.25-35 mg-mcg per tablet 10-16 00:00: 00 Yes [id number] 1{tbl} Take 1 tablet by mouth daily. [facility] pravastatin 20 mg tablet 10-16 00:00: 00 Yes [id number] 20mg Take 1 tablet by mouth at bedtime. [facility] norgestimat e-ethinyl estradioL (SPRINTEC) 0.25-35 mg-mcg per tablet 10-16 00:00: 00 Yes [id number] 1{tbl} Take 1 tablet by mouth daily. [facility] pravastatin 20 mg tablet 0 10-16 00:00: 00 Yes [id number] 20mg Take 1 tablet by mouth at bedtime. [facility] norgestimat e-ethinyl estradioL (SPRINTEC) 0.25-35 mg-mcg per tablet 0 10-16 00:00: 00 Yes [id number] 1{tbl} Take 1 tablet by mouth daily. [facility] pravastatin 20 mg tablet 0 10-16 00:00: 00 Yes [id number] 20mg Take 1 tablet by mouth at bedtime. [facility] norgestimat e-ethinyl estradioL (SPRINTEC) 0.25-35 mg-mcg per tablet 10-16 00:00: 00 Yes [id number] 1{tbl} Take 1 tablet by mouth daily. [facility] pravastatin 20 mg tablet 10-16 00:00: 00 Yes [id number] 20mg Take 1 tablet by mouth at bedtime. [facility] norgestimat e-ethinyl estradioL (SPRINTEC) 0.25-35 mg-mcg per tablet 10-16 00:00: 00 Yes [id number] 1{tbl} Take 1 tablet by mouth daily. [facility] pravastatin 20 mg tablet 0 10-16 00:00: 00 Yes [id number] 20mg Take 1 tablet by mouth at bedtime. [facility] norgestimat e-ethinyl estradioL (SPRINTEC) 0.25-35 mg-mcg per tablet 0 10-16 00:00: 00 Yes [id number] 1{tbl} Take 1 tablet by mouth daily. [facility] pravastatin 20 mg tablet 0 10-16 00:00: 00 Yes [id number] 20mg Take 1 tablet by mouth at bedtime. [facility] norgestimat e-ethinyl estradioL (SPRINTEC) 0.25-35 mg-mcg per tablet 10-16 00:00: 00 Yes [id number] 1{tbl} Take 1 tablet by mouth daily. [facility] pravastatin 20 mg tablet 10-16 00:00: 00 Yes [id number] 20mg Take 1 tablet by mouth at bedtime. [facility] norgestimat e-ethinyl estradioL (SPRINTEC) 0.25-35 mg-mcg per tablet 10-16 00:00: 00 Yes [id number] 1{tbl} Take 1 tablet by mouth daily. [facility] pravastatin 20 mg tablet 10-16 00:00: 00 Yes [id number] 20mg Take 1 tablet by mouth at bedtime. [facility] norgestimat e-ethinyl estradioL (SPRINTEC) 0.25-35 mg-mcg per tablet 10-16 00:00: 00 Yes [id number] 1{tbl} Take 1 tablet by mouth daily. [facility] pravastatin 20 mg tablet 10-16 00:00: 00 Yes [id number] 20mg Take 1 tablet by mouth at bedtime. [facility] norgestimat e-ethinyl estradioL (SPRINTEC) 0.25-35 mg-mcg per tablet 10-16 00:00: 00 Yes [id number] 1{tbl} Take 1 tablet by mouth daily. [facility] pravastatin 20 mg tablet 10-16 00:00: 00 Yes [id number] 20mg Take 1 tablet by mouth at bedtime. [facility] norgestimat e-ethinyl estradioL (SPRINTEC) 0.25-35 mg-mcg per tablet 10-16 00:00: 00 Yes [id number] 1{tbl} Take 1 tablet by mouth daily. [facility] pravastatin 20 mg tablet 10-16 00:00: 00 Yes [id number] 20mg Take 1 tablet by mouth at bedtime. [facility] norgestimat e-ethinyl estradioL (SPRINTEC) 0.25-35 mg-mcg per tablet 0 10-16 00:00: 00 Yes [id number] 1{tbl} Take 1 tablet by mouth daily. [facility] pravastatin 20 mg tablet 0 17 00:00: 00 Yes [id number] 20mg Take 1 tablet by mouth at bedtime. [facility] norgestimat e-ethinyl estradioL (SPRINTEC) 0.25-35 mg-mcg per tablet 0 10-16 00:00: 00 Yes [id number] 1{tbl} Take 1 tablet by mouth daily. [facility] pravastatin 20 mg tablet 0 10-16 00:00: 00 Yes [id number] 20mg Take 1 tablet by mouth at bedtime. [facility] norgestimat e-ethinyl estradioL (SPRINTEC) 0.25-35 mg-mcg per tablet 10-16 00:00: 00 Yes [id number] 1{tbl} Take 1 tablet by mouth daily. [facility] pravastatin 20 mg tablet 0 17 00:00: 00 Yes [id number] 20mg Take 1 tablet by mouth at bedtime. [facility] pravastatin 20 mg tablet 2021-0 10-16 00:00: 00 Yes [id number] 20mg Take 1 tablet by mouth at bedtime. [facility] pravastatin 20 mg tablet 0 10-16 00:00: 00 Yes [id number] 20mg Take 1 tablet by mouth at bedtime. [facility] pravastatin 20 mg tablet 0 10-16 00:00: 00 Yes [id number] 20mg Take 1 tablet by mouth at bedtime. [facility] pravastatin 20 mg tablet 2021-0 17 00:00: 00 Yes [id number] 20mg Take 1 tablet by mouth at bedtime. [facility] pravastatin 20 mg tablet 2021-0 17 00:00: 00 Yes [id number] 20mg Take 1 tablet by mouth at bedtime. [facility] pravastatin 20 mg tablet 2021-0 17 00:00: 00 Yes [id number] 20mg Take 1 tablet by mouth at bedtime. [facility] pravastatin 20 mg tablet 10-16 00:00: 00 08-23 00:00 :00 No [id number] 20mg Take 1 tablet by mouth at bedtime. [facility] norgestimat e-ethinyl estradioL (SPRINTEC) 0.25-35 mg-mcg per tablet 10-16 00:00: 00 08-07 00:00 :00 No [id number] 1{tbl} Take 1 tablet by mouth daily. [facility] cycloSPORIN E 25 mg capsule 08-20 00:00: 00 Yes [id number] 25mg Take 1 capsule by mouth every 12 (twelve) hours. [facility] predniSONE 10 mg tablet 08-20 00:00: 00 Yes Take 5 mg (one-half tablet daily for 2 weeks then 5 mg (1.2 tablet) every other day for 4 weeks, then discontinu e. [facility] cycloSPORIN E 25 mg capsule 08-20 00:00: 00 Yes [id number] 25mg Take 1 capsule by mouth every 12 (twelve) hours. [facility] predniSONE 10 mg tablet 08-20 00:00: 00 Yes Take 5 mg (one-half tablet daily for 2 weeks then 5 mg (1.2 tablet) every other day for 4 weeks, then discontinu e. [facility] cycloSPORIN E 25 mg capsule 08-20 00:00: 00 Yes [id number] 25mg Take 1 capsule by mouth every 12 (twelve) hours. [facility] predniSONE 10 mg tablet 08-20 00:00: 00 Yes Take 5 mg (one-half tablet daily for 2 weeks then 5 mg (1.2 tablet) every other day for 4 weeks, then discontinu e. [facility] cycloSPORIN E 25 mg capsule 08-20 00:00: 00 Yes [id number] 25mg Take 1 capsule by mouth every 12 (twelve) hours. [facility] predniSONE 10 mg tablet 08-20 00:00: 00 Yes Take 5 mg (one-half tablet daily for 2 weeks then 5 mg (1.2 tablet) every other day for 4 weeks, then discontinu e. [facility] cycloSPORIN E 25 mg capsule 2021-0 08-20 00:00: 00 Yes [id number] 25mg Take 1 capsule by mouth every 12 (twelve) hours. [facility] predniSONE 10 mg tablet 2021-0 08-20 00:00: 00 Yes Take 5 mg (one-half tablet daily for 2 weeks then 5 mg (1.2 tablet) every other day for 4 weeks, then discontinu e. [facility] cycloSPORIN E 25 mg capsule 0 08-20 00:00: 00 Yes [id number] 25mg Take 1 capsule by mouth every 12 (twelve) hours. [facility] predniSONE 10 mg tablet 2021-0 08-20 00:00: 00 Yes Take 5 mg (one-half tablet daily for 2 weeks then 5 mg (1.2 tablet) every other day for 4 weeks, then discontinu e. [facility] cycloSPORIN E 25 mg capsule 2021-0 08-20 00:00: 00 Yes [id number] 25mg Take 1 capsule by mouth every 12 (twelve) hours. [facility] predniSONE 10 mg tablet 2021-0 08-20 00:00: 00 Yes Take 5 mg (one-half tablet daily for 2 weeks then 5 mg (1.2 tablet) every other day for 4 weeks, then discontinu e. [facility] cycloSPORIN E 25 mg capsule 2021-0 08-20 00:00: 00 Yes [id number] 25mg Take 1 capsule by mouth every 12 (twelve) hours. [facility] predniSONE 10 mg tablet 2021-0 08-20 00:00: 00 Yes Take 5 mg (one-half tablet daily for 2 weeks then 5 mg (1.2 tablet) every other day for 4 weeks, then discontinu e. [facility] cycloSPORIN E 25 mg capsule 2021-0 08-20 00:00: 00 Yes [id number] 25mg Take 1 capsule by mouth every 12 (twelve) hours. [facility] predniSONE 10 mg tablet 2021-0 08-20 00:00: 00 Yes Take 5 mg (one-half tablet daily for 2 weeks then 5 mg (1.2 tablet) every other day for 4 weeks, then discontinu e. [facility] cycloSPORIN E 25 mg capsule 2021-0 08-20 00:00: 00 Yes [id number] 25mg Take 1 capsule by mouth every 12 (twelve) hours. [facility] predniSONE 10 mg tablet 2021-0 08-20 00:00: 00 Yes Take 5 mg (one-half tablet daily for 2 weeks then 5 mg (1.2 tablet) every other day for 4 weeks, then discontinu e. [facility] cycloSPORIN E 25 mg capsule 2021-0 08-20 00:00: 00 Yes [id number] 25mg Take 1 capsule by mouth every 12 (twelve) hours. [facility] predniSONE 10 mg tablet 2021-0 08-20 00:00: 00 Yes Take 5 mg (one-half tablet daily for 2 weeks then 5 mg (1.2 tablet) every other day for 4 weeks, then discontinu e. [facility] cycloSPORIN E 25 mg capsule 2021-0 08-20 00:00: 00 Yes [id number] 25mg Take 1 capsule by mouth every 12 (twelve) hours. [facility] predniSONE 10 mg tablet 2021-0 08-20 00:00: 00 Yes Take 5 mg (one-half tablet daily for 2 weeks then 5 mg (1.2 tablet) every other day for 4 weeks, then discontinu e. [facility] cycloSPORIN E 25 mg capsule 2021-0 08-20 00:00: 00 Yes [id number] 25mg Take 1 capsule by mouth every 12 (twelve) hours. [facility] predniSONE 10 mg tablet 2-0 08-20 00:00: 00 Yes Take 5 mg (one-half tablet daily for 2 weeks then 5 mg (1.2 tablet) every other day for 4 weeks, then discontinu e. [facility] cycloSPORIN E 25 mg capsule 2021-0 08-20 00:00: 00 Yes [id number] 25mg Take 1 capsule by mouth every 12 (twelve) hours. [facility] predniSONE 10 mg tablet 0 08-20 00:00: 00 Yes Take 5 mg (one-half tablet daily for 2 weeks then 5 mg (1.2 tablet) every other day for 4 weeks, then discontinu e. [facility] predniSONE 10 mg tablet 0 08-20 00:00: 00 Yes Take 5 mg (one-half tablet daily for 2 weeks then 5 mg (1.2 tablet) every other day for 4 weeks, then discontinu e. [facility] predniSONE 10 mg tablet 2021-08-20 00:00: 00 Yes Take 5 mg (one-half tablet daily for 2 weeks then 5 mg (1.2 tablet) every other day for 4 weeks, then [facility]:00: 00 Yes Take 5 mg (one-half tablet daily for 2 weeks then 5 mg (1.2 tablet) every other day for 4 weeks, then discontinu e. [facility] predniSONE 10 mg tablet 2021-08-20 00:00: 00 Yes Take 5 mg (one-half tablet daily for 2 weeks then 5 mg (1.2 tablet) every other day for 4 weeks, then [facility] 08-20 00:00: 00 Yes Take 5 mg (one-half tablet daily for 2 weeks then 5 mg (1.2 tablet) every other day for 4 weeks, then discontinu e. [facility] predniSONE 10 mg tablet 2021-0 08-20 00:00: 00 Yes Take 5 mg (one-half tablet daily for 2 weeks then 5 mg (1.2 tablet) every other day for 4 weeks, then discontinu e. [facility] predniSONE 10 mg tablet 2021-0 08-20 00:00: 00 Yes Take 5 mg (one-half tablet daily for 2 weeks then 5 mg (1.2 tablet) every other day for 4 weeks, then discontinu e. [facility] predniSONE 10 mg tablet 2021-0 08-20 00:00: 00 Yes Take 5 mg (one-half tablet daily for 2 weeks then 5 mg (1.2 tablet) every other day for 4 weeks, then discontinu e. [facility] predniSONE 10 mg tablet 2021-0 08-20 00:00: 00 Yes Take 5 mg (one-half tablet daily for 2 weeks then 5 mg (1.2 tablet) every other day for 4 weeks, then discontinu e. [facility] predniSONE 10 mg tablet 08-20 00:00: 00 Yes Take 5 mg (one-half tablet daily for 2 weeks then 5 mg (1.2 tablet) every other day for 4 weeks, then discontinu e. [facility] predniSONE 10 mg tablet 08-20 00:00: 00 Yes Take 5 mg (one-half tablet daily for 2 weeks then 5 mg (1.2 tablet) every other day for 4 weeks, then discontinu e. [facility] predniSONE 10 mg tablet 08-20 00:00: 00 Yes Take 5 mg (one-half tablet daily for 2 weeks then 5 mg (1.2 tablet) every other day for 4 weeks, then discontinu e. [facility] predniSONE 10 mg tablet 2021-0 08-20 00:00: 00 Yes Take 5 mg (one-half tablet daily for 2 weeks then 5 mg (1.2 tablet) every other day for 4 weeks, then discontinu e. [facility] predniSONE 10 mg tablet 2021-08-20 00:00: 00 Yes Take 5 mg (one-half tablet daily for 2 weeks then 5 mg (1.2 tablet) every other day for 4 weeks, then discontinu e. [facility] predniSONE 10 mg tablet 2021-08-20 00:00: 00 Yes Take 5 mg (one-half tablet daily for 2 weeks then 5 mg (1.2 tablet) every other day for 4 weeks, then discontinu e. [facility] predniSONE 10 mg tablet 08-20 00:00: 00 Yes Take 5 mg (one-half tablet daily for 2 weeks then 5 mg (1.2 tablet) every other day for 4 weeks, then discontinu e. [facility] predniSONE 10 mg tablet 2021-0 08-20 00:00: 00 Yes Take 5 mg (one-half tablet daily for 2 weeks then 5 mg (1.2 tablet) every other day for 4 weeks, then discontinu e. [facility] predniSONE 10 mg tablet 08-20 00:00: 00 Yes Take 5 mg (one-half tablet daily for 2 weeks then 5 mg (1.2 tablet) every other day for 4 weeks, then discontinu e. [facility] predniSONE 10 mg tablet 08-20 00:00: 00 Yes Take 5 mg (one-half tablet daily for 2 weeks then 5 mg (1.2 tablet) every other day for 4 weeks, then discontinu e. [facility] predniSONE 10 mg tablet 08-20 00:00: 00 Yes Take 5 mg (one-half tablet daily for 2 weeks then 5 mg (1.2 tablet) every other day for 4 weeks, then discontinu e. [facility] predniSONE 10 mg tablet 08-20 00:00: 00 Yes Take 5 mg (one-half tablet daily for 2 weeks then 5 mg (1.2 tablet) every other day for 4 weeks, then discontinu e. [facility] predniSONE 10 mg tablet 08-20 00:00: 00 Yes Take 5 mg (one-half tablet daily for 2 weeks then 5 mg (1.2 tablet) every other day for 4 weeks, then discontinu e. [facility] predniSONE 10 mg tablet 08-20 00:00: 00 06-04 00:00 :00 No Take 5 mg (one-half tablet daily for 2 weeks then 5 mg (1.2 tablet) every other day for 4 weeks, then discontinu e. [facility] cycloSPORIN E 25 mg capsule 08-20 00:00: 00 02-11 00:00 :00 No [id number] 25mg Take 1 capsule by mouth every 12 (twelve) hours. [facility] cycloSPORIN E 25 mg capsule 08-20 00:00: 00 02-11 00:00 :00 No [id number] 25mg Take 1 capsule by mouth every 12 (twelve) hours. [facility] guanFACINE 1 mg tablet 07-21 00:00: 00 Yes [id number] 1mg Take 1 tablet by mouth at bedtime. [facility] guanFACINE 1 mg tablet 2-0 3-22 00:00: 00 Yes [id number] 1mg Take 1 tablet by mouth at bedtime. [facility] guanFACINE 1 mg tablet 2-0 3-22 00:00: 00 Yes [id number] 1mg Take 1 tablet by mouth at bedtime. [facility] guanFACINE 1 mg tablet 2-0 322 00:00: 00 Yes [id number] 1mg Take 1 tablet by mouth at bedtime. [facility] guanFACINE 1 mg tablet 2-0 322 00:00: 00 Yes [id number] 1mg Take 1 tablet by mouth at bedtime. [facility] guanFACINE 1 mg tablet 2-0 22 00:00: 00 Yes [id number] 1mg Take 1 tablet by mouth at bedtime. [facility] guanFACINE 1 mg tablet 2-0 22 00:00: 00 Yes [id number] 1mg Take 1 tablet by mouth at bedtime. [facility] guanFACINE 1 mg tablet 2-0 322 00:00: 00 Yes [id number] 1mg Take 1 tablet by mouth at bedtime. [facility] guanFACINE 1 mg tablet 2021-0 22 00:00: 00 Yes [id number] 1mg Take 1 tablet by mouth at bedtime. [facility] guanFACINE 1 mg tablet 2-0 322 00:00: 00 Yes [id number] 1mg Take 1 tablet by mouth at bedtime. [facility] guanFACINE 1 mg tablet 2-0 322 00:00: 00 Yes [id number] 1mg Take 1 tablet by mouth at bedtime. [facility] guanFACINE 1 mg tablet 2-0 22 00:00: 00 12-28 00:00 :00 No [id number] 1mg Take 1 tablet by mouth at bedtime. [facility] PREDNISONE 10 mg tablet 2-0 3 00:00: 00 08-20 00:00 :00 No [id number] TAKE 1 TABLET BY MOUTH EVERY DAY [facility] MYCOPHENOLA TE SODIUM 360 mg EC tablet 06-30 00:00: 00 Yes [id number] TAKE 1 TABLET BY MOUTH EVERY 12 HOURS [facility] MYCOPHENOLA TE SODIUM 360 mg EC tablet 06-30 00:00: 00 Yes [id number] TAKE 1 TABLET BY MOUTH EVERY 12 HOURS [facility] MYCOPHENOLA TE SODIUM 360 mg EC tablet 06-30 00:00: 00 Yes [id number] TAKE 1 TABLET BY MOUTH EVERY 12 HOURS [facility] MYCOPHENOLA TE SODIUM 360 mg EC tablet 06-30 00:00: 00 Yes [id number] TAKE 1 TABLET BY MOUTH EVERY 12 HOURS [facility] MYCOPHENOLA TE SODIUM 360 mg EC tablet 06-30 00:00: 00 Yes [id number] TAKE 1 TABLET BY MOUTH EVERY 12 HOURS [facility] MYCOPHENOLA TE SODIUM 360 mg EC tablet 06-30 00:00: 00 Yes [id number] TAKE 1 TABLET BY MOUTH EVERY 12 HOURS [facility] MYCOPHENOLA TE SODIUM 360 mg EC tablet 06-30 00:00: 00 Yes [id number] TAKE 1 TABLET BY MOUTH EVERY 12 HOURS [facility] MYCOPHENOLA TE SODIUM 360 mg EC tablet 06-30 00:00: 00 Yes [id number] TAKE 1 TABLET BY MOUTH EVERY 12 HOURS [facility] MYCOPHENOLA TE SODIUM 360 mg EC tablet 06-30 00:00: 00 Yes [id number] TAKE 1 TABLET BY MOUTH EVERY 12 HOURS [facility] MYCOPHENOLA TE SODIUM 360 mg EC tablet 06-30 00:00: 00 Yes [id number] TAKE 1 TABLET BY MOUTH EVERY 12 HOURS [facility] MYCOPHENOLA TE SODIUM 360 mg EC tablet 06-30 00:00: 00 Yes [id number] TAKE 1 TABLET BY MOUTH EVERY 12 HOURS [facility] MYCOPHENOLA TE SODIUM 360 mg EC tablet 06-30 00:00: 00 Yes [id number] TAKE 1 TABLET BY MOUTH EVERY 12 HOURS [facility] MYCOPHENOLA TE SODIUM 360 mg EC tablet 06-30 00:00: 00 Yes [id number] TAKE 1 TABLET BY MOUTH EVERY 12 HOURS [facility] MYCOPHENOLA TE SODIUM 360 mg EC tablet 06-30 00:00: 00 Yes [id number] TAKE 1 TABLET BY MOUTH EVERY 12 HOURS [facility] MYCOPHENOLA TE SODIUM 360 mg EC tablet 06-30 00:00: 00 Yes [id number] TAKE 1 TABLET BY MOUTH EVERY 12 HOURS [facility] MYCOPHENOLA TE SODIUM 360 mg EC tablet 06-30 00:00: 00 Yes [id number] TAKE 1 TABLET BY MOUTH EVERY 12 HOURS [facility] MYCOPHENOLA TE SODIUM 360 mg EC tablet 06-30 00:00: 00 Yes [id number] TAKE 1 TABLET BY MOUTH EVERY 12 HOURS [facility] MYCOPHENOLA TE SODIUM 360 mg EC tablet 06-30 00:00: 00 Yes [id number] TAKE 1 TABLET BY MOUTH EVERY 12 HOURS [facility] MYCOPHENOLA TE SODIUM 360 mg EC tablet 06-30 00:00: 00 Yes [id number] TAKE 1 TABLET BY MOUTH EVERY 12 HOURS [facility] MYCOPHENOLA TE SODIUM 360 mg EC tablet 06-30 00:00: 00 Yes [id number] TAKE 1 TABLET BY MOUTH EVERY 12 HOURS [facility] MYCOPHENOLA TE SODIUM 360 mg EC tablet 06-30 00:00: 00 Yes [id number] TAKE 1 TABLET BY MOUTH EVERY 12 HOURS [facility] MYCOPHENOLA TE SODIUM 360 mg EC tablet 06-30 00:00: 00 Yes [id number] TAKE 1 TABLET BY MOUTH EVERY 12 HOURS [facility] MYCOPHENOLA TE SODIUM 360 mg EC tablet 06-30 00:00: 00 Yes [id number] TAKE 1 TABLET BY MOUTH EVERY 12 HOURS [facility] MYCOPHENOLA TE SODIUM 360 mg EC tablet 06-30 00:00: 00 Yes [id number] TAKE 1 TABLET BY MOUTH EVERY 12 HOURS [facility] MYCOPHENOLA TE SODIUM 360 mg EC tablet 2021-0 3- 00:00: 00 Yes [id number] TAKE 1 TABLET BY MOUTH EVERY 12 HOURS [facility] mg EC tablet 2021-0 3-01 00:00: 00 04-27 00:00 :00 No [id number] TAKE 1 TABLET BY MOUTH EVERY 12 HOURS [facility] diltiazem XR 240 mg 24 hr capsule 2021-0 2-18 00:00: 00 Yes [id number] 240mg Take 1 capsule by mouth 2 (two) times daily. [facility] 24 hr capsule 2-0 2-18 00:00: 00 Yes [id number] 240mg Take 1 capsule by mouth 2 (two) times daily. [facility] diltiazem XR 240 mg 24 hr capsule 2021-0 2-18 00:00: 00 Yes [id number] 240mg Take 1 capsule by mouth 2 (two) times daily. [facility] diltiazem XR 240 mg 24 hr capsule 2021-0 2-18 00:00: 00 Yes [id number] 240mg Take 1 capsule by mouth 2 (two) times daily. [facility] diltiazem XR 240 mg 24 hr capsule 2-0 2-18 00:00: 00 Yes [id number] 240mg Take 1 capsule by mouth 2 (two) times daily. [facility] diltiazem XR 240 mg 24 hr capsule 2021-0 2-18 00:00: 00 Yes [id number] 240mg Take 1 capsule by mouth 2 (two) times daily. [facility] diltiazem XR 240 mg 24 hr capsule 2-0 2-18 00:00: 00 Yes [id number] 240mg Take 1 capsule by mouth 2 (two) times daily. [facility] diltiazem XR 240 mg 24 hr capsule 2-0 2-18 00:00: 00 Yes [id number] 240mg Take 1 capsule by mouth 2 (two) times daily. [facility] diltiazem XR 240 mg 24 hr capsule 2021-0 2-18 00:00: 00 12-10 00:00 :00 No [id number] 240mg Take 1 capsule by mouth 2 (two) times daily. [facility] ARTIFICIAL TEARS,DEXT7 0-HYPRO, OPHTHALMIC 2021-05-28 19:38: [address] in each eye. [facility] aspirin 81 mg Cap 05-28 19:38: 10 Yes Take by mouth. [facility] ARTIFICIAL TEARS,DEXT7 0-HYPRO, OPHTHALMIC 05-28 19:38: [address] in each eye. [facility] aspirin 81 mg Cap 05-28 19:38: 10 Yes Take by mouth. [facility] ARTIFICIAL TEARS,DEXT7 0-HYPRO, OPHTHALMIC 05-28 19:38: [address] in each eye. [facility] aspirin 81 mg Cap 05-28 19:38: 10 Yes [facility] ARTIFICIAL TEARS,DEXT7 0-HYPRO, OPHTHALMIC 05-28 19:38: [address] in each eye. [facility] aspirin 81 mg Cap 0 05-28 19:38: 10 Yes Take [facility] mouth. [facility] ARTIFICIAL TEARS,DEXT7 0-HYPRO, OPHTHALMIC 05-28 19:38: [address] in each eye. [facility] aspirin 81 mg Cap 05-28 19:38: 10 Yes Take by mouth. [facility] ARTIFICIAL TEARS,DEXT7 0-HYPRO, OPHTHALMIC 05-28 19:38: [address] in each eye. [facility] aspirin 81 mg Cap 0 05-28 19:38: 10 Yes Take by mouth. [facility] ARTIFICIAL TEARS,DEXT7 0-HYPRO, OPHTHALMIC 05-28 19:38: [address] in each eye. [facility] aspirin 81 mg Cap 05-28 19:38: 10 Yes Take by mouth. [facility]T7 0-HYPRO, OPHTHALMIC 0 05-28 19:38: [address] in each eye. [facility] aspirin 81 mg Cap 0 05-28 19:38: 10 Yes Take by mouth. [facility] it[facility] ARTIFICIAL TEARS,DEXT7 0-HYPRO, OPHTHALMIC 05-28 19:38: [address] in each eye. [facility] aspirin 81 mg Cap 05-28 19:38: 10 Yes Take by mouth. [facility] ARTIFICIAL TEARS,DEXT7 0-HYPRO, OPHTHALMIC 05-28 19:38: [address] in each eye. [facility] aspirin 81 mg Cap 05-28 19:38: 10 Yes Take by mouth. [facility] ARTIFICIAL TEARS,DEXT7 0-HYPRO, OPHTHALMIC 05-28 19:38: [address] in each eye. [facility] aspirin 81 mg Cap 05-28 19:38: 10 Yes Take by mouth. [facility] ARTIFICIAL TEARS,DEXT7 0-HYPRO, OPHTHALMIC 05-28 19:38: [address] in each eye. [facility] aspirin 81 mg Cap 05-28 19:38: 10 Yes Take by mouth. [facility] ARTIFICIAL TEARS,DEXT7 0-HYPRO, OPHTHALMIC 05-28 19:38: [address] in each eye. [facility] aspirin 81 mg Cap 05-28 19:38: 10 Yes Take by mouth. [facility] ARTIFICIAL TEARS,DEXT7 0-HYPRO, OPHTHALMIC 05-28 19:38: [address] in each eye. [facility] aspirin 81 mg Cap 0 05-28 19:38: 10 Yes Take by mouth. [facility] ARTIFICIAL TEARS,DEXT7 0-HYPRO, OPHTHALMIC 05-28 19:38: [address] in each eye. [facility] aspirin 81 mg Cap 0 05-28 19:38: 10 Yes Take by mouth. [facility] ARTIFICIAL TEARS,DEXT7 0-HYPRO, OPHTHALMIC 0 05-28 19:38: [address] in each eye. [facility] aspirin 81 mg Cap 0 05-28 19:38: 10 Yes Take by mouth. [facility] ARTIFICIAL TEARS,DEXT7 0-HYPRO, OPHTHALMIC 2021-0 05-28 19:38: [address] in each eye. [facility] aspirin 81 mg Cap 0 05-28 19:38: 10 Yes Take by mouth. [facility] ARTIFICIAL TEARS,DEXT7 0-HYPRO, OPHTHALMIC 05-28 19:38: [address] in each eye. [facility] aspirin 81 mg Cap 0 05-28 19:38: 10 Yes Take by mouth. [facility] ARTIFICIAL TEARS,DEXT7 0-HYPRO, OPHTHALMIC 05-28 19:38: [address] in each eye. [facility] aspirin 81 mg Cap 05-28 19:38: 10 Yes Take by mouth. [facility] ARTIFICIAL TEARS,DEXT7 0-HYPRO, OPHTHALMIC 05-28 19:38: [address] in each eye. [facility] aspirin 81 mg Cap 05-28 19:38: 10 Yes Take by mouth. [facility] ARTIFICIAL TEARS,DEXT7 0-HYPRO, OPHTHALMIC 05-28 19:38: [address] in each eye. [facility] aspirin 81 mg Cap 0 05-28 19:38: 10 Yes Take by mouth. [facility] ARTIFICIAL TEARS,DEXT7 0-HYPRO, OPHTHALMIC 0 05-28 19:38: [address] in each eye. [facility] aspirin 81 mg Cap 0 05-28 19:38: 10 Yes Take by mouth. [facility] ARTIFICIAL TEARS,DEXT7 0-HYPRO, OPHTHALMIC 05-28 19:38: [address] in each eye. [facility] aspirin 81 mg Cap 0 05-28 19:38: 10 Yes Take by mouth. [facility] ARTIFICIAL TEARS,DEXT7 0-HYPRO, OPHTHALMIC 05-28 19:38: [address] in each eye. [facility] aspirin 81 mg Cap 05-28 19:38: 10 Yes Take by mouth. [facility] ARTIFICIAL TEARS,DEXT7 0-HYPRO, OPHTHALMIC 05-28 19:38: [address] in each eye. [facility] aspirin 81 mg Cap 05-28 19:38: 10 Yes Take by mouth. [facility] ARTIFICIAL TEARS,DEXT7 0-HYPRO, OPHTHALMIC 05-28 19:38: [address] in each eye. [facility] aspirin 81 mg Cap 05-28 19:38: 10 Yes Take by mouth. [facility] ARTIFICIAL TEARS,DEXT7 0-HYPRO, OPHTHALMIC 05-28 19:38: [address] in each eye. [facility] aspirin 81 mg Cap 05-28 19:38: 10 Yes Take by mouth. [facility] ARTIFICIAL TEARS,DEXT7 0-HYPRO, OPHTHALMIC 05-28 19:38: [address] in each eye. [facility] aspirin 81 mg Cap 05-28 19:38: 10 Yes Take by mouth. [facility] ARTIFICIAL TEARS,DEXT7 0-HYPRO, OPHTHALMIC 05-28 19:38: [address] in each eye. [facility] aspirin 81 mg Cap 05-28 19:38: 10 Yes Take by mouth. [facility] SPRINTEC 0.25-35 mg-mcg per tablet 11-10 00:00: 00 Yes [id number] TAKE 1 TABLET BY MOUTH EVERY DAY [facility] SPRINTEC 0.25-35 mg-mcg per tablet 11-10 00:00: 00 10-15 00:00 :00 No [id number] TAKE 1 TABLET BY MOUTH EVERY DAY [facility] PRAVASTATIN 20 mg tablet 10-03 00:00: 00 Yes [id number] TAKE 1 TABLET BY MOUTH EVERYDAY AT BEDTIME [facility] PRAVASTATIN 20 mg tablet 10-03 00:00: 00 10-15 00:00 :00 No [id number] TAKE 1 TABLET BY MOUTH EVERYDAY AT BEDTIME [facility] ranitidine 150 mg tablet 12-13 00:00: 00 Yes 150mg Take 1 tablet by mouth every morning. [facility] ranitidine 150 mg tablet 12-13 00:00: 00 Yes 150mg Take 1 tablet by mouth every morning. [facility] ranitidine 150 mg tablet 12-13 00:00: 00 Yes 150mg Take 1 tablet by mouth every morning. [facility] ranitidine 150 mg tablet 12-13 00:00: 00 Yes 150mg Take 1 tablet by mouth every morning. [facility] ranitidine 150 mg tablet 12-13 00:00: 00 Yes 150mg Take 1 tablet by mouth every morning. [facility] ranitidine 150 mg tablet 12-13 00:00: 00 Yes 150mg Take 1 tablet by mouth every morning. [facility] ranitidine 150 mg tablet 12-13 00:00: 00 Yes 150mg Take 1 tablet by mouth every morning. [facility] ranitidine 150 mg tablet 12-13 00:00: 00 Yes 150mg Take 1 tablet by mouth every morning. [facility] ranitidine 150 mg tablet 12-13 00:00: 00 Yes 150mg Take 1 tablet by mouth every morning. [facility] ranitidine 150 mg tablet 12-13 00:00: 00 Yes 150mg Take 1 tablet by mouth every morning. [facility] ranitidine 150 mg tablet 12-13 00:00: 00 Yes 150mg Take 1 tablet by mouth every morning. [facility] ranitidine 150 mg tablet 12-13 00:00: 00 Yes 150mg Take 1 tablet by mouth every morning. [facility] ranitidine 150 mg tablet 12-13 00:00: 00 Yes 150mg Take 1 tablet by mouth every morning. [facility] ranitidine 150 mg tablet 12-13 00:00: 00 Yes 150mg Take 1 tablet by mouth every morning. [facility] ranitidine 150 mg tablet 12-13 00:00: 00 Yes 150mg Take 1 tablet by mouth every morning. [facility] ranitidine 150 mg tablet 12-13 00:00: 00 Yes 150mg Take 1 tablet by mouth every morning. [facility] ranitidine 150 mg tablet 12-13 00:00: 00 Yes 150mg Take 1 tablet by mouth every morning. [facility] ranitidine 150 mg tablet 12-13 00:00: 00 Yes 150mg Take 1 tablet by mouth every morning. [facility] ranitidine 150 mg tablet 12-13 00:00: 00 Yes 150mg Take 1 tablet by mouth every morning. [facility] ranitidine 150 mg tablet 12-13 00:00: 00 Yes 150mg Take 1 tablet by mouth every morning. [facility] ranitidine 150 mg tablet 12-13 00:00: 00 Yes 150mg Take 1 tablet by mouth every morning. [facility] ranitidine 150 mg tablet 12-13 00:00: 00 Yes 150mg Take 1 tablet by mouth every morning. [facility] ranitidine 150 mg tablet 12-13 00:00: 00 Yes 150mg Take 1 tablet by mouth every morning. [facility] ranitidine 150 mg tablet 12-13 00:00: 00 Yes 150mg Take 1 tablet by mouth every morning. [facility] ranitidine 150 mg tablet 12-13 00:00: 00 Yes 150mg Take 1 tablet by mouth every morning. [facility] ranitidine 150 mg tablet 12-13 00:00: 00 Yes 150mg Take 1 tablet by mouth every morning. [facility] ranitidine 150 mg tablet 12-13 00:00: 00 Yes 150mg Take 1 tablet by mouth every morning. [facility] ranitidine 150 mg tablet 12-13 00:00: 00 Yes 150mg Take 1 tablet by mouth every morning. [facility] ranitidine 150 mg tablet 12-13 00:00: 00 Yes 150mg Take 1 tablet by mouth every morning. [facility] ranitidine 150 mg tablet 12-13 00:00: 00 Yes 150mg Take 1 tablet by mouth every morning. [facility] ranitidine 150 mg tablet 12-13 00:00: 00 Yes 150mg Take 1 tablet by mouth every morning. [facility] ranitidine 150 mg tablet 12-13 00:00: 00 Yes 150mg Take 1 tablet by mouth every morning. [facility] ranitidine 150 mg tablet 12-13 00:00: 00 Yes 150mg Take 1 tablet by mouth every morning. [facility] ranitidine 150 mg tablet 12-13 00:00: 00 Yes 150mg Take 1 tablet by mouth every morning. [facility] ranitidine 150 mg tablet 12-13 00:00: 00 Yes 150mg Take 1 tablet by mouth every morning. [facility] ranitidine 150 mg tablet 12-13 00:00: 00 Yes 150mg Take 150 mg by mouth every morning. [facility] ranitidine 150 mg tablet 12-13 00:00: 00 Yes 150mg Take 150 mg by mouth every morning. [facility] ranitidine 150 mg tablet 12-13 00:00: 00 Yes 150mg Take 150 mg by mouth every morning. [facility] ranitidine 150 mg tablet 12-13 00:00: 00 Yes 150mg Take 150 mg by mouth every morning. [facility] ranitidine 150 mg tablet 12-13 00:00: 00 Yes 150mg Take 150 mg by mouth every morning. [facility] ranitidine 150 mg tablet 12-13 00:00: 00 Yes 150mg Take 150 mg by mouth every morning. [facility] ranitidine 150 mg tablet 12-13 00:00: 00 Yes 150mg Take 150 mg by mouth every morning. [facility] ranitidine 150 mg tablet 12-13 00:00: 00 Yes 150mg Take 150 mg by mouth every morning. [facility] ranitidine 150 mg tablet 12-13 00:00: 00 Yes 150mg Take 150 mg by mouth every morning. [facility] ranitidine 150 mg tablet 12-13 00:00: 00 Yes 150mg Take 150 mg by mouth every morning. [facility] ranitidine 150 mg tablet 12-13 00:00: 00 Yes 150mg Take 150 mg by mouth every morning. [facility] ranitidine 150 mg tablet 12-13 00:00: 00 Yes 150mg Take 150 mg by mouth every morning. [facility] ranitidine 150 mg tablet 12-13 00:00: 00 Yes 150mg Take 150 mg by mouth every morning. [facility] ranitidine 150 mg tablet 12-13 00:00: 00 Yes 150mg Take 150 mg by mouth every morning. [facility] ranitidine 150 mg tablet 12-13 00:00: 00 Yes 150mg Take 150 mg by mouth every morning. [facility] ranitidine 150 mg tablet 12-13 00:00: 00 Yes 150mg Take 150 mg by mouth every morning. [facility] ranitidine 150 mg tablet 12-13 00:00: 00 Yes 150mg Take 150 mg by mouth every morning. [facility] ranitidine 150 mg tablet 12-13 00:00: 00 Yes 150mg Take 150 mg by mouth every morning. [facility] ranitidine 150 mg tablet 12-13 00:00: 00 Yes 150mg Take 150 mg by mouth every morning. [facility] ranitidine 150 mg tablet 12-13 00:00: 00 Yes 150mg Take 150 mg by mouth every morning. [facility] ranitidine 150 mg tablet 12-13 00:00: 00 Yes 150mg Take 150 mg by mouth every morning. [facility] ranitidine 150 mg tablet 12-13 00:00: 00 Yes 150mg Take 150 mg by mouth every morning. [facility] ranitidine 150 mg tablet 12-13 00:00: 00 Yes 150mg Take 150 mg by mouth every morning. [facility] ranitidine 150 mg tablet 12-13 00:00: 00 Yes 150mg Take 150 mg by mouth every morning. [facility] ranitidine 150 mg tablet 12-13 00:00: 00 Yes 150mg Take 150 mg by mouth every morning. [facility] ranitidine 150 mg tablet 12-13 00:00: 00 Yes 150mg Take 150 mg by mouth every morning. [facility] ranitidine 150 mg tablet 12-13 00:00: 00 Yes 150mg Take 150 mg by mouth every morning. [facility] ranitidine 150 mg tablet 12-13 00:00: 00 Yes 150mg Take 150 mg by mouth every morning. [facility] ranitidine 150 mg tablet 12-13 00:00: 00 Yes 150mg Take 150 mg by mouth every morning. [facility] ranitidine 150 mg tablet 12-13 00:00: 00 Yes 150mg Take 150 mg by mouth every morning. [facility] ranitidine 150 mg tablet 12-13 00:00: 00 Yes 150mg Take 150 mg by mouth every morning. [facility] ranitidine 150 mg tablet 12-13 00:00: 00 Yes 150mg Take 150 mg by mouth every morning. [facility] ranitidine 150 mg tablet 12-13 00:00: 00 Yes 150mg Take 150 mg by mouth every morning. [facility] ranitidine 150 mg tablet 12-13 00:00: 00 Yes 150mg Take 150 mg by mouth every morning. [facility] ranitidine 150 mg tablet 12-13 00:00: 00 Yes 150mg Take 150 mg by mouth every morning. [facility] ranitidine 150 mg tablet 12-13 00:00: 00 Yes 150mg Take 150 mg by mouth every morning. [facility] ranitidine 150 mg tablet 12-13 00:00: 00 Yes 150mg Take 150 mg by mouth every morning. [facility] ranitidine 150 mg tablet 12-13 00:00: 00 Yes 150mg Take 150 mg by mouth every morning. [facility] ranitidine 150 mg tablet 12-13 00:00: 00 Yes 150mg Take 150 mg by mouth every morning. [facility] ranitidine 150 mg tablet 12-13 00:00: 00 Yes 150mg Take 150 mg by mouth every morning. [facility] ranitidine 150 mg tablet 12-13 00:00: 00 Yes 150mg Take 150 mg by mouth every morning. [facility] ranitidine 150 mg tablet 12-13 00:00: 00 Yes 150mg Take 150 mg by mouth every morning. [facility] ranitidine 150 mg tablet 12-13 00:00: 00 Yes 150mg Take 150 mg by mouth every morning. [facility] ranitidine 150 mg tablet 12-13 00:00: 00 Yes 150mg Take 150 mg by mouth every morning. [facility] ranitidine 150 mg tablet 12-13 00:00: 00 Yes 150mg Take 150 mg by mouth every morning. [facility] ranitidine 150 mg tablet 12-13 00:00: 00 Yes 150mg Take 150 mg by mouth every morning. [facility] ranitidine 150 mg tablet 12-13 00:00: 00 Yes 150mg Take 150 mg by mouth every morning. [facility] ranitidine 150 mg tablet 12-13 00:00: 00 Yes 150mg Take 150 mg by mouth every morning. [facility] ranitidine 150 mg tablet 12-13 00:00: 00 Yes 150mg Take 150 mg by mouth every morning. [facility] ranitidine 150 mg tablet 12-13 00:00: 00 Yes 150mg Take 150 mg by mouth every morning. [facility] ranitidine 150 mg tablet 12-13 00:00: 00 Yes 150mg Take 150 mg by mouth every morning. [facility] ranitidine 150 mg tablet 12-13 00:00: 00 Yes 150mg Take 150 mg by mouth every morning. [facility] 12-13 00:00: 00 Yes 150mg Take 150 mg by mouth every morning. [facility] ranitidine 150 mg tablet 12-13 00:00: 00 Yes 150mg Take 150 mg by mouth every morning. [facility] ranitidine 150 mg tablet 12-13 00:00: 00 Yes 150mg Take 150 mg by mouth every morning. [facility] ranitidine 150 mg tablet 12-13 00:00: 00 Yes 150mg Take 150 mg by mouth every morning. [facility] ranitidine 150 mg tablet 12-13 00:00: 00 Yes 150mg Take 150 mg by mouth every morning. [facility] ranitidine 150 mg tablet 12-13 00:00: 00 Yes 150mg Take 150 mg by mouth every morning. [facility] ranitidine 150 mg tablet 12-13 00:00: 00 Yes 150mg Take 150 mg by mouth every morning. [facility] ranitidine 150 mg tablet 12-13 00:00: 00 Yes 150mg Take 150 mg by mouth every morning. [facility] ranitidine 150 mg tablet 12-13 00:00: 00 Yes 150mg Take 150 mg by mouth every morning. [facility] ranitidine 150 mg tablet 12-13 00:00: 00 Yes 150mg Take 150 mg by mouth every morning. [facility] ranitidine 150 mg tablet 12-13 00:00: 00 Yes 150mg Take 150 mg by mouth every morning. [facility] ranitidine 150 mg tablet 12-13 00:00: 00 Yes 150mg Take 150 mg by mouth every morning. [facility] ranitidine 150 mg tablet 12-13 00:00: 00 Yes 150mg Take 150 mg by mouth every morning. [facility] ranitidine 150 mg tablet 12-13 00:00: 00 Yes 150mg Take 150 mg by mouth every morning. [facility] ranitidine 150 mg tablet 12-13 00:00: 00 Yes 150mg Take 150 mg by mouth every morning. [facility] ranitidine 150 mg tablet 12-13 00:00: 00 Yes 150mg Take 1 tablet by mouth every morning. [facility] ranitidine 150 mg tablet 12-13 00:00: 00 Yes 150mg Take 1 tablet by mouth every morning. [facility] ranitidine 150 mg tablet 12-13 00:00: 00 Yes 150mg Take 1 tablet by mouth every morning. [facility] ranitidine 150 mg tablet 12-13 00:00: 00 Yes 150mg Take 1 tablet by mouth every morning. [facility] ranitidine 150 mg tablet 12-13 00:00: 00 Yes 150mg Take 1 tablet by mouth every morning. [facility] ranitidine 150 mg tablet 12-13 00:00: 00 Yes 150mg Take 1 tablet by mouth every morning. [facility] ranitidine 150 mg tablet 12-13 00:00: 00 Yes 150mg Take 1 tablet by mouth every morning. [facility] ranitidine 150 mg tablet 12-13 00:00: 00 Yes 150mg Take 1 tablet by mouth every morning. [facility] ranitidine 150 mg tablet 12-13 00:00: 00 Yes 150mg Take 1 tablet by mouth every morning. [facility] ranitidine 150 mg tablet 12-13 00:00: 00 Yes 150mg Take 1 tablet by mouth every morning. [facility] ranitidine 150 mg tablet 12-13 00:00: 00 Yes 150mg Take 1 tablet by mouth every morning. [facility] ranitidine 150 mg tablet 12-13 00:00: 00 Yes 150mg Take 1 tablet by mouth every morning. [facility] ranitidine 150 mg tablet 12-13 00:00: 00 Yes 150mg Take 1 tablet by mouth every morning. [facility] ranitidine 150 mg tablet 12-13 00:00: 00 Yes 150mg Take 1 tablet by mouth every morning. [facility] ranitidine 150 mg tablet 12-13 00:00: 00 Yes 150mg Take 1 tablet by mouth every morning. [facility] ranitidine 150 mg tablet 12-13 00:00: 00 Yes 150mg Take 1 tablet by mouth every morning. [facility] ranitidine 150 mg tablet 12-13 00:00: 00 Yes 150mg Take 1 tablet by mouth every morning. [facility] ranitidine 150 mg tablet 12-13 00:00: 00 Yes 150mg Take 1 tablet by mouth every morning. [facility] ranitidine 150 mg tablet 12-13 00:00: 00 Yes 150mg Take 1 tablet by mouth every morning. [facility] ranitidine 150 mg tablet 12-13 00:00: 00 Yes 150mg Take 1 tablet by mouth every morning. [facility] ranitidine 150 mg tablet 12-13 00:00: 00 Yes 150mg Take 1 tablet by mouth every morning. [facility] ranitidine 150 mg tablet 12-13 00:00: 00 Yes 150mg Take 1 tablet by mouth every morning. [facility] ranitidine 150 mg tablet 12-13 00:00: 00 Yes 150mg Take 1 tablet by mouth every morning. [facility] ranitidine 150 mg tablet 12-13 00:00: 00 Yes 150mg Take 1 tablet by mouth every morning. [facility] ranitidine 150 mg tablet 12-13 00:00: 00 Yes 150mg Take 1 tablet by mouth every morning. [facility] ranitidine 150 mg tablet 814 00:00: 00 Yes 150mg Take 1 tablet by mouth every morning. [facility] ranitidine 150 mg tablet 0 814 00:00: 00 Yes 150mg Take 1 tablet by mouth every morning. [facility] ranitidine 150 mg tablet 0 814 00:00: 00 Yes 150mg Take 1 tablet by mouth every morning. [facility] ranitidine 150 mg tablet 0 814 00:00: 00 Yes 150mg Take 1 tablet by mouth every morning. [facility] ranitidine 150 mg tablet 0 14 00:00: 00 05-18 00:00 :00 No 150mg Take 1 tablet by mouth every morning. [facility] ranitidine 150 mg tablet 14 00:00: 00 05-18 00:00 :00 No 150mg Take 1 tablet by mouth every morning. [facility] ranitidine 150 mg tablet 14 00:00: 00 05-18 00:00 :00 No 150mg Take 1 tablet by mouth every morning. [facility] Vit-Iron Fumarate-FA (RIGHT STEP VITAMINS) 27 mg iron- 0.8 mg per tablet 11-07 00:00: 00 Yes Take by mouth. [facility] Vit-Iron Fumarate-FA (RIGHT STEP VITAMINS) 27 mg iron- 0.8 mg per tablet 0 11-07 00:00: 00 Yes Take by mouth. [facility] Vit-Iron Fumarate-FA (RIGHT STEP VITAMINS) 27 mg iron- 0.8 mg per tablet 0 11-07 00:00: 00 Yes Take by mouth. [facility] Vit-Iron Fumarate-FA (RIGHT STEP VITAMINS) 27 mg iron- 0.8 mg per tablet 0 11-07 00:00: 00 Yes Take by mouth. [facility] Vit-Iron Fumarate-FA (RIGHT STEP VITAMINS) 27 mg iron- 0.8 mg per tablet 0 11-07 00:00: 00 Yes Take by mouth. [facility]Iron Fumarate-FA (RIGHT STEP VITAMINS) 27 mg iron- 0.8 mg per tablet 0 11-07 00:00: 00 Yes Take by mouth. [facility] Vit-Iron Fumarate-FA (RIGHT STEP VITAMINS) 27 mg iron- 0.8 mg per tablet 0 11-07 00:00: 00 Yes Take by mouth. [facility] Vit-Iron Fumarate-FA (RIGHT STEP VITAMINS) 27 mg iron- 0.8 mg per tablet 0 11-07 00:00: 00 Yes Take by mouth. [facility] Vit-Iron Fumarate-FA (RIGHT STEP VITAMINS) 27 mg iron- 0.8 mg per tablet 0 11-07 00:00: 00 Yes Take by mouth. [facility] Vit-Iron Fumarate-FA (RIGHT STEP VITAMINS) 27 mg iron- 0.8 mg per tablet 0 11-07 00:00: 00 Yes Take by mouth. [facility] Vit-Iron Fumarate-FA (RIGHT STEP VITAMINS) 27 mg iron- 0.8 mg per tablet 0 11-07 00:00: 00 Yes Take by mouth. [facility] Vit-Iron Fumarate-FA (RIGHT STEP VITAMINS) 27 mg iron- 0.8 mg per tablet 0 11-07 00:00: 00 Yes Take by mouth. [facility] Vit-Iron Fumarate-FA (RIGHT STEP VITAMINS) 27 mg iron- 0.8 mg per tablet 0 11-07 00:00: 00 Yes Take by mouth. [facility] Vit-Iron Fumarate-FA (RIGHT STEP VITAMINS) 27 mg iron- 0.8 mg per tablet 0 11-07 00:00: 00 Yes Take by mouth. [facility] Vit-Iron Fumarate-FA (RIGHT STEP VITAMINS) 27 mg iron- 0.8 mg per tablet 0 11-07 00:00: 00 02-11 00:00 :00 No Take by mouth. [facility] Vit-Iron Fumarate-FA (RIGHT STEP VITAMINS) 27 mg iron- 0.8 mg per tablet 2019-0 11-07 00:00: 00 02-11 00:00 :00 No Take by mouth. [facility] Immunizations Ordered Immunization Name Filled Immunization Name Date Status Comments Source Pneumococcal Polysaccharide, PPSV23 (PNEUMOVAX) 2021-04-09 00:00:00 Completed [facility] Pneumococcal Polysaccharide, PPSV23 (PNEUMOVAX) 2021-04-09 00:00:00 Completed [facility] Pneumococcal Polysaccharide, PPSV23 (PNEUMOVAX) 2021-04-09 00:00:00 Completed [facility] Pneumococcal Polysaccharide, PPSV23 (PNEUMOVAX) 2021-04-09 00:00:00 Completed [facility] Pneumococcal Polysaccharide, PPSV23 (PNEUMOVAX) 2021-04-09 00:00:00 Completed [facility] Pneumococcal Polysaccharide, PPSV23 (PNEUMOVAX) 2021-04-09 00:00:00 Completed [facility] Pneumococcal Polysaccharide, PPSV23 (PNEUMOVAX) 2021-04-09 00:00:00 Completed [facility] Pneumococcal Polysaccharide, PPSV23 (PNEUMOVAX) 2021-04-09 00:00:00 Completed [facility] Pneumococcal Polysaccharide, PPSV23 (PNEUMOVAX) 2021-04-09 00:00:00 Completed [facility] Pneumococcal Polysaccharide, PPSV23 (PNEUMOVAX) 2021-04-09 00:00:00 Completed [facility] Pneumococcal Polysaccharide, PPSV23 (PNEUMOVAX) 2021-04-09 00:00:00 Completed [facility] Pneumococcal Polysaccharide, PPSV23 (PNEUMOVAX) 2021-04-09 00:00:00 Completed [facility] Pneumococcal Polysaccharide, PPSV23 (PNEUMOVAX) 2021-04-09 00:00:00 Completed [facility] Pneumococcal Polysaccharide, PPSV23 (PNEUMOVAX) 2021-04-09 00:00:00 Completed [facility] Pneumococcal Polysaccharide, PPSV23 (PNEUMOVAX) 2021-04-09 00:00:00 Completed [facility] Pneumococcal Polysaccharide, PPSV23 (PNEUMOVAX) 2021-04-09 00:00:00 Completed [facility] Pneumococcal Polysaccharide, PPSV23 (PNEUMOVAX) 2021-04-09 00:00:00 Completed [facility] Pneumococcal Polysaccharide, PPSV23 (PNEUMOVAX) 2021-04-09 00:00:00 Completed [facility] Pneumococcal Polysaccharide, PPSV23 (PNEUMOVAX) 2021-04-09 00:00:00 Completed [facility] Pneumococcal Polysaccharide, PPSV23 (PNEUMOVAX) 2021-04-09 00:00:00 Completed [facility] Pneumococcal Polysaccharide, PPSV23 (PNEUMOVAX) 2021-04-09 00:00:00 Completed [facility] Pneumococcal Polysaccharide, PPSV23 (PNEUMOVAX) 2021-04-09 00:00:00 Completed [facility] Pneumococcal Polysaccharide, PPSV23 (PNEUMOVAX) 2021-04-09 00:00:00 Completed [facility] Pneumococcal Polysaccharide, PPSV23 (PNEUMOVAX) 2021-04-09 00:00:00 Completed [facility] Pneumococcal Polysaccharide, PPSV23 (PNEUMOVAX) 2021-04-09 00:00:00 Completed [facility] Pneumococcal Polysaccharide, PPSV23 (PNEUMOVAX) 2021-04-09 00:00:00 Completed [facility] Pneumococcal Polysaccharide, PPSV23 (PNEUMOVAX) 2021-04-09 00:00:00 Completed [facility] Pneumococcal Polysaccharide, PPSV23 (PNEUMOVAX) 2021-04-09 00:00:00 Completed [facility] Pneumococcal Polysaccharide, PPSV23 (PNEUMOVAX) 2021-04-09 00:00:00 Completed [facility] Pneumococcal Polysaccharide, PPSV23 (PNEUMOVAX) 2021-04-09 00:00:00 Completed [facility] Pneumococcal Polysaccharide, PPSV23 (PNEUMOVAX) 2021-04-09 00:00:00 Completed [facility] Pneumococcal Polysaccharide, PPSV23 (PNEUMOVAX) 2021-04-09 00:00:00 Completed [facility] Pneumococcal Polysaccharide, PPSV23 (PNEUMOVAX) 2021-04-09 00:00:00 Completed [facility] Pneumococcal Polysaccharide, PPSV23 (PNEUMOVAX) 2021-04-09 00:00:00 Completed [facility] Pneumococcal Polysaccharide, PPSV23 (PNEUMOVAX) 2021-04-09 00:00:00 Completed [facility] Pneumococcal Polysaccharide, PPSV23 (PNEUMOVAX) 2021-04-09 00:00:00 Completed [facility] Pneumococcal Polysaccharide, PPSV23 (PNEUMOVAX) 2021-04-09 00:00:00 Completed [facility] Pneumococcal Polysaccharide, PPSV23 (PNEUMOVAX) 2021-04-09 00:00:00 Completed [facility] Pneumococcal Polysaccharide, PPSV23 (PNEUMOVAX) 2021-04-09 00:00:00 Completed [facility] Pneumococcal Polysaccharide, PPSV23 (PNEUMOVAX) 2021-04-09 00:00:00 Completed [facility] Pneumococcal Polysaccharide, PPSV23 (PNEUMOVAX) 2021-04-09 00:00:00 Completed [facility] Pneumococcal Polysaccharide, PPSV23 (PNEUMOVAX) 2021-04-09 00:00:00 Completed [facility] Pneumococcal Polysaccharide, PPSV23 (PNEUMOVAX) 2021-04-09 00:00:00 Completed [facility] Pneumococcal Polysaccharide, PPSV23 (PNEUMOVAX) 2021-04-09 00:00:00 Completed [facility] Pneumococcal Polysaccharide, PPSV23 (PNEUMOVAX) 2021-04-09 00:00:00 Completed [facility] Pneumococcal Polysaccharide, PPSV23 (PNEUMOVAX) 2021-04-09 00:00:00 Completed [facility] Pneumococcal Polysaccharide, PPSV23 (PNEUMOVAX) 2021-04-09 00:00:00 Completed [facility] Pneumococcal Polysaccharide, PPSV23 (PNEUMOVAX) 2021-04-09 00:00:00 Completed [facility] Pneumococcal Polysaccharide, PPSV23 (PNEUMOVAX) 2021-04-09 00:00:00 Completed [facility] Pneumococcal Polysaccharide, PPSV23 (PNEUMOVAX) 2021-04-09 00:00:00 Completed [facility] Pneumococcal Polysaccharide, PPSV23 (PNEUMOVAX) 2021-04-09 00:00:00 Completed [facility] Pneumococcal Polysaccharide, PPSV23 (PNEUMOVAX) 2021-04-09 00:00:00 Completed [facility] Pneumococcal Polysaccharide, PPSV23 (PNEUMOVAX) 2021-04-09 00:00:00 Completed [facility] Pneumococcal Polysaccharide, PPSV23 (PNEUMOVAX) 2021-04-09 00:00:00 Completed [facility] Pneumococcal Polysaccharide, PPSV23 (PNEUMOVAX) 2021-04-09 00:00:00 Completed [facility] Pneumococcal Polysaccharide, PPSV23 (PNEUMOVAX) 2021-04-09 00:00:00 Completed [facility] Pneumococcal Polysaccharide, PPSV23 (PNEUMOVAX) 2021-04-09 00:00:00 Completed [facility] Pneumococcal Polysaccharide, PPSV23 (PNEUMOVAX) 2021-04-09 00:00:00 Completed [facility] Pneumococcal Polysaccharide, PPSV23 (PNEUMOVAX) 2021-04-09 00:00:00 Completed [facility] Pneumococcal Polysaccharide, PPSV23 (PNEUMOVAX) 2021-04-09 00:00:00 Completed [facility] Pneumococcal Polysaccharide, PPSV23 (PNEUMOVAX) 2021-04-09 00:00:00 Completed [facility] Pneumococcal Polysaccharide, PPSV23 (PNEUMOVAX) 2021-04-09 00:00:00 Completed [facility] Pneumococcal Polysaccharide, PPSV23 (PNEUMOVAX) 2021-04-09 00:00:00 Completed [facility] Pneumococcal Polysaccharide, PPSV23 (PNEUMOVAX) 2021-04-09 00:00:00 Completed [facility] Pneumococcal Polysaccharide, PPSV23 (PNEUMOVAX) 2021-04-09 00:00:00 Completed [facility] Pneumococcal Polysaccharide, PPSV23 (PNEUMOVAX) 2021-04-09 00:00:00 Completed [facility] Pneumococcal Polysaccharide, PPSV23 (PNEUMOVAX) 2021-04-09 00:00:00 Completed [facility] Pneumococcal Polysaccharide, PPSV23 (PNEUMOVAX) 2021-04-09 00:00:00 Completed [facility] Pneumococcal Polysaccharide, PPSV23 (PNEUMOVAX) 2021-04-09 00:00:00 Completed [facility] Pneumococcal Polysaccharide, PPSV23 (PNEUMOVAX) 2021-04-09 00:00:00 Completed [facility] Pneumococcal Polysaccharide, PPSV23 (PNEUMOVAX) 2021-04-09 00:00:00 Completed [facility] Pneumococcal Polysaccharide, PPSV23 (PNEUMOVAX) 2021-04-09 00:00:00 Completed [facility] Pneumococcal Polysaccharide, PPSV23 (PNEUMOVAX) 2021-04-09 00:00:00 Completed [facility] Pneumococcal Polysaccharide, PPSV23 (PNEUMOVAX) 2021-04-09 00:00:00 Completed [facility] Pneumococcal Polysaccharide, PPSV23 (PNEUMOVAX) 2021-04-09 00:00:00 Completed [facility] Pneumococcal Polysaccharide, PPSV23 (PNEUMOVAX) 2021-04-09 00:00:00 Completed [facility] Pneumococcal Polysaccharide, PPSV23 (PNEUMOVAX) 2021-04-09 00:00:00 Completed [facility] Pneumococcal Polysaccharide, PPSV23 (PNEUMOVAX) 2021-04-09 00:00:00 Completed [facility] Pneumococcal Polysaccharide, PPSV23 (PNEUMOVAX) 2021-04-09 00:00:00 Completed [facility] Pneumococcal Polysaccharide, PPSV23 (PNEUMOVAX) 2021-04-09 00:00:00 Completed [facility] Pneumococcal Polysaccharide, PPSV23 (PNEUMOVAX) 2021-04-09 00:00:00 Completed [facility] Pneumococcal Polysaccharide, PPSV23 (PNEUMOVAX) 2021-04-09 00:00:00 Completed [facility] Pneumococcal Polysaccharide, PPSV23 (PNEUMOVAX) 2021-04-09 00:00:00 Completed [facility] Pneumococcal Polysaccharide, PPSV23 (PNEUMOVAX) 2021-04-09 00:00:00 Completed [facility] Pneumococcal Polysaccharide, PPSV23 (PNEUMOVAX) 2021-04-09 00:00:00 Completed [facility] Pneumococcal Polysaccharide, PPSV23 (PNEUMOVAX) 2021-04-09 00:00:00 Completed [facility] Pneumococcal Polysaccharide, PPSV23 (PNEUMOVAX) 2021-04-09 00:00:00 Completed [facility] Influenza Virus Vaccine Quad IM, Preserv and ABX Free 6 MO-64 YRS 2021-02-12 00:00:00 Completed [facility] Influenza Virus Vaccine Quad IM, Preserv and ABX Free 6 MO-64 YRS 2021-02-12 00:00:00 Completed [facility] Influenza Virus Vaccine Quad IM, Preserv and ABX Free 6 MO-64 YRS 2021-02-12 00:00:00 Completed [facility] Influenza Virus Vaccine Quad IM, Preserv and ABX Free 6 MO-64 YRS 2021-02-12 00:00:00 Completed [facility] Influenza Virus Vaccine Quad IM, Preserv and ABX Free 6 MO-64 YRS 2021-02-12 00:00:00 Completed [facility] Influenza Virus Vaccine Quad IM, Preserv and ABX Free 6 MO-64 YRS 2021-02-12 00:00:00 Completed [facility] Influenza Virus Vaccine Quad IM, Preserv and ABX Free 6 MO-64 YRS 2021-02-12 00:00:00 Completed [facility] Influenza Virus Vaccine Quad IM, Preserv and ABX Free 6 MO-64 YRS 2021-02-12 00:00:00 Completed [facility] Influenza Virus Vaccine Quad IM, Preserv and ABX Free 6 MO-64 YRS 2021-02-12 00:00:00 Completed [facility] Influenza Virus Vaccine Quad IM, Preserv and ABX Free 6 MO-64 YRS 2021-02-12 00:00:00 Completed [facility] Influenza Virus Vaccine Quad IM, Preserv and ABX Free 6 MO-64 YRS 2021-02-12 00:00:00 Completed [facility] Influenza Virus Vaccine Quad IM, Preserv and ABX Free 6 MO-64 YRS 2021-02-12 00:00:00 Completed [facility] Influenza Virus Vaccine Quad IM, Preserv and ABX Free 6 MO-64 YRS 2021-02-12 00:00:00 Completed [facility] Influenza Virus Vaccine Quad IM, Preserv and ABX Free 6 MO-64 YRS 2021-02-12 00:00:00 Completed [facility] Influenza Virus Vaccine Quad IM, Preserv and ABX Free 6 MO-64 YRS 2021-02-12 00:00:00 Completed [facility] Influenza Virus Vaccine Quad IM, Preserv and ABX Free 6 MO-64 YRS 2021-02-12 00:00:00 Completed [facility] Influenza Virus Vaccine Quad IM, Preserv and ABX Free 6 MO-64 YRS 2021-02-12 00:00:00 Completed [facility] Influenza Virus Vaccine Quad IM, Preserv and ABX Free 6 MO-64 YRS 2021-02-12 00:00:00 Completed [facility] Influenza Virus Vaccine Quad IM, Preserv and ABX Free 6 MO-64 YRS 2021-02-12 00:00:00 Completed [facility] Influenza Virus Vaccine Quad IM, Preserv and ABX Free 6 MO-64 YRS 2021-02-12 00:00:00 Completed [facility] Influenza Virus Vaccine Quad IM, Preserv and ABX Free 6 MO-64 YRS 2021-02-12 00:00:00 Completed [facility] Influenza Virus Vaccine Quad IM, Preserv and ABX Free 6 MO-64 YRS 2021-02-12 00:00:00 Completed [facility] Influenza Virus Vaccine Quad IM, Preserv and ABX Free 6 MO-64 YRS 2021-02-12 00:00:00 Completed [facility] Influenza Virus Vaccine Quad IM, Preserv and ABX Free 6 MO-64 YRS 2021-02-12 00:00:00 Completed [facility] Influenza Virus Vaccine Quad IM, Preserv and ABX Free 6 MO-64 YRS 2021-02-12 00:00:00 Completed [facility] Influenza Virus Vaccine Quad IM, Preserv and ABX Free 6 MO-64 YRS 2021-02-12 00:00:00 Completed [facility] Influenza Virus Vaccine Quad IM, Preserv and ABX Free 6 MO-64 YRS 2021-02-12 00:00:00 Completed [facility] Influenza Virus Vaccine Quad IM, Preserv and ABX Free 6 MO-64 YRS 2021-02-12 00:00:00 Completed [facility] Influenza Virus Vaccine Quad IM, Preserv and ABX Free 6 MO-64 YRS 2021-02-12 00:00:00 Completed [facility] Influenza Virus Vaccine Quad IM, Preserv and ABX Free 6 MO-64 YRS 2021-02-12 00:00:00 Completed [facility] Influenza Virus Vaccine Quad IM, Preserv and ABX Free 6 MO-64 YRS 2021-02-12 00:00:00 Completed [facility] Influenza Virus Vaccine Quad IM, Preserv and ABX Free 6 MO-64 YRS 2021-02-12 00:00:00 Completed [facility] Influenza Virus Vaccine Quad IM, Preserv and ABX Free 6 MO-64 YRS 2021-02-12 00:00:00 Completed [facility] Influenza Virus Vaccine Quad IM, Preserv and ABX Free 6 MO-64 YRS 2021-02-12 00:00:00 Completed [facility] Influenza Virus Vaccine Quad IM, Preserv and ABX Free 6 MO-64 YRS 2021-02-12 00:00:00 Completed [facility] Influenza Virus Vaccine Quad IM, Preserv and ABX Free 6 MO-64 YRS 2021-02-12 00:00:00 Completed [facility] Influenza Virus Vaccine Quad IM, Preserv and ABX Free 6 MO-64 YRS 2021-02-12 00:00:00 Completed [facility] Influenza Virus Vaccine Quad IM, Preserv and ABX Free 6 MO-64 YRS 2021-02-12 00:00:00 Completed [facility] Influenza Virus Vaccine Quad IM, Preserv and ABX Free 6 MO-64 YRS 2021-02-12 00:00:00 Completed [facility] Influenza Virus Vaccine Quad IM, Preserv and ABX Free 6 MO-64 YRS 2021-02-12 00:00:00 Completed [facility] Influenza Virus Vaccine Quad IM, Preserv and ABX Free 6 MO-64 YRS 2021-02-12 00:00:00 Completed [facility] Influenza Virus Vaccine Quad IM, Preserv and ABX Free 6 MO-64 YRS 2021-02-12 00:00:00 Completed [facility] Influenza Virus Vaccine Quad IM, Preserv and ABX Free 6 MO-64 YRS 2021-02-12 00:00:00 Completed [facility] Influenza Virus Vaccine Quad IM, Preserv and ABX Free 6 MO-64 YRS 2021-02-12 00:00:00 Completed [facility] Influenza Virus Vaccine Quad IM, Preserv and ABX Free 6 MO-64 YRS 2021-02-12 00:00:00 Completed [facility] Influenza Virus Vaccine Quad IM, Preserv and ABX Free 6 MO-64 YRS 2021-02-12 00:00:00 Completed [facility] Influenza Virus Vaccine Quad IM, Preserv and ABX Free 6 MO-64 YRS 2021-02-12 00:00:00 Completed [facility] Influenza Virus Vaccine Quad IM, Preserv and ABX Free 6 MO-64 YRS 2021-02-12 00:00:00 Completed [facility] Influenza Virus Vaccine Quad IM, Preserv and ABX Free 6 MO-64 YRS 2021-02-12 00:00:00 Completed [facility] Influenza Virus Vaccine Quad IM, Preserv and ABX Free 6 MO-64 YRS 2021-02-12 00:00:00 Completed [facility] Influenza Virus Vaccine Quad IM, Preserv and ABX Free 6 MO-64 YRS 2021-02-12 00:00:00 Completed [facility] Influenza Virus Vaccine Quad IM, Preserv and ABX Free 6 MO-64 YRS 2021-02-12 00:00:00 Completed [facility] Influenza Virus Vaccine Quad IM, Preserv and ABX Free 6 MO-64 YRS 2021-02-12 00:00:00 Completed [facility] Influenza Virus Vaccine Quad IM, Preserv and ABX Free 6 MO-64 YRS 2021-02-12 00:00:00 Completed [facility] Influenza Virus Vaccine Quad IM, Preserv and ABX Free 6 MO-64 YRS 2021-02-12 00:00:00 Completed [facility] Influenza Virus Vaccine Quad IM, Preserv and ABX Free 6 MO-64 YRS 2021-02-12 00:00:00 Completed [facility] Influenza Virus Vaccine Quad IM, Preserv and ABX Free 6 MO-64 YRS 2021-02-12 00:00:00 Completed [facility] Influenza Virus Vaccine Quad IM, Preserv and ABX Free 6 MO-64 YRS 2021-02-12 00:00:00 Completed [facility] Influenza Virus Vaccine Quad IM, Preserv and ABX Free 6 MO-64 YRS 2021-02-12 00:00:00 Completed [facility] Influenza Virus Vaccine Quad IM, Preserv and ABX Free 6 MO-64 YRS 2021-02-12 00:00:00 Completed [facility] Influenza Virus Vaccine Quad IM, Preserv and ABX Free 6 MO-64 YRS 2021-02-12 00:00:00 Completed [facility] Influenza Virus Vaccine Quad IM, Preserv and ABX Free 6 MO-64 YRS 2021-02-12 00:00:00 Completed [facility] Influenza Virus Vaccine Quad IM, Preserv and ABX Free 6 MO-64 YRS 2021-02-12 00:00:00 Completed [facility] Influenza Virus Vaccine Quad IM, Preserv and ABX Free 6 MO-64 YRS 2021-02-12 00:00:00 Completed [facility] Influenza Virus Vaccine Quad IM, Preserv and ABX Free 6 MO-64 YRS 2021-02-12 00:00:00 Completed [facility] Influenza Virus Vaccine Quad IM, Preserv and ABX Free 6 MO-64 YRS 2021-02-12 00:00:00 Completed [facility] Influenza Virus Vaccine Quad IM, Preserv and ABX Free 6 MO-64 YRS 2021-02-12 00:00:00 Completed [facility] Influenza Virus Vaccine Quad IM, Preserv and ABX Free 6 MO-64 YRS 2021-02-12 00:00:00 Completed [facility] Influenza Virus Vaccine Quad IM, Preserv and ABX Free 6 MO-64 YRS 2021-02-12 00:00:00 Completed [facility] Influenza Virus Vaccine Quad IM, Preserv and ABX Free 6 MO-64 YRS 2021-02-12 00:00:00 Completed [facility] Influenza Virus Vaccine Quad IM, Preserv and ABX Free 6 MO-64 YRS 2021-02-12 00:00:00 Completed [facility] Influenza Virus Vaccine Quad IM, Preserv and ABX Free 6 MO-64 YRS 2021-02-12 00:00:00 Completed [facility] Influenza Virus Vaccine Quad IM, Preserv and ABX Free 6 MO-64 YRS 2021-02-12 00:00:00 Completed [facility] Influenza Virus Vaccine Quad IM, Preserv and ABX Free 6 MO-64 YRS 2021-02-12 00:00:00 Completed [facility] Influenza Virus Vaccine Quad IM, Preserv and ABX Free 6 MO-64 YRS 2021-02-12 00:00:00 Completed [facility] Influenza Virus Vaccine Quad IM, Preserv and ABX Free 6 MO-64 YRS 2021-02-12 00:00:00 Completed [facility] Influenza Virus Vaccine Quad IM, Preserv and ABX Free 6 MO-64 YRS 2021-02-12 00:00:00 Completed [facility] Influenza Virus Vaccine Quad IM, Preserv and ABX Free 6 MO-64 YRS 2021-02-12 00:00:00 Completed [facility] Influenza Virus Vaccine Quad IM, Preserv and ABX Free 6 MO-64 YRS 2021-02-12 00:00:00 Completed [facility] Influenza Virus Vaccine Quad IM, Preserv and ABX Free 6 MO-64 YRS 2021-02-12 00:00:00 Completed [facility] Influenza Virus Vaccine Quad IM, Preserv and ABX Free 6 MO-64 YRS 2021-02-12 00:00:00 Completed [facility] Influenza Virus Vaccine Quad IM, Preserv and ABX Free 6 MO-64 YRS 2021-02-12 00:00:00 Completed [facility] Influenza Virus Vaccine Quad IM, Preserv and ABX Free 6 MO-64 YRS 2021-02-12 00:00:00 Completed [facility] Influenza Virus Vaccine Quad IM, Preserv and ABX Free 6 MO-64 YRS 2021-02-12 00:00:00 Completed [facility] Influenza Virus Vaccine Quad IM, Preserv and ABX Free 6 MO-64 YRS 2021-02-12 00:00:00 Completed [facility] Influenza Virus Vaccine Quad IM, Preserv and ABX Free 6 MO-64 YRS (FLUCELVAX) 2021-02-12 00:00:00 Completed [facility] Influenza Virus Vaccine Quad IM, Preserv and ABX Free 6 MO-64 YRS (FLUCELVAX) 2021-02-12 00:00:00 Completed [facility] Pfizer COVID-19 Vaccine Pfizer COVID-19 Vaccine 2021-01-01 00:00:00 Completed SARS-COV-2 COVID-19 PFIZER VACCINE 2020-08-18 00:00:00 Completed [facility] SARS-COV-2 COVID-19 PFIZER VACCINE 2020-08-18 00:00:00 Completed [facility] SARS-COV-2 COVID-19 PFIZER VACCINE 2020-08-18 00:00:00 Completed [facility] SARS-COV-2 COVID-19 PFIZER VACCINE 2020-08-18 00:00:00 Completed [facility] SARS-COV-2 COVID-19 PFIZER VACCINE 2020-08-18 00:00:00 Completed [facility] SARS-COV-2 COVID-19 PFIZER VACCINE 2020-08-18 00:00:00 Completed [facility] SARS-COV-2 COVID-19 PFIZER VACCINE 2020-08-18 00:00:00 Completed [facility] SARS-COV-2 COVID-19 PFIZER VACCINE 2020-08-18 00:00:00 Completed [facility] SARS-COV-2 COVID-19 PFIZER VACCINE 2020-08-18 00:00:00 Completed [facility] SARS-COV-2 COVID-19 PFIZER VACCINE 2020-08-18 00:00:00 Completed [facility] SARS-COV-2 COVID-19 PFIZER VACCINE 2020-08-18 00:00:00 Completed [facility] SARS-COV-2 COVID-19 PFIZER VACCINE 2020-08-18 00:00:00 Completed [facility] SARS-COV-2 COVID-19 PFIZER VACCINE 2020-08-18 00:00:00 Completed [facility] SARS-COV-2 COVID-19 PFIZER VACCINE 2020-08-18 00:00:00 Completed [facility] SARS-COV-2 COVID-19 PFIZER VACCINE 2020-08-18 00:00:00 Completed [facility] SARS-COV-2 COVID-19 PFIZER VACCINE 2020-08-18 00:00:00 Completed [facility] SARS-COV-2 COVID-19 PFIZER VACCINE 2020-08-18 00:00:00 Completed [facility] SARS-COV-2 COVID-19 PFIZER VACCINE 2020-08-18 00:00:00 Completed [facility] SARS-COV-2 COVID-19 PFIZER VACCINE 2020-08-18 00:00:00 Completed [facility] SARS-COV-2 COVID-19 PFIZER VACCINE 2020-08-18 00:00:00 Completed [facility] SARS-COV-2 COVID-19 PFIZER VACCINE 2020-08-18 00:00:00 Completed [facility] SARS-COV-2 COVID-19 PFIZER VACCINE 2020-08-18 00:00:00 Completed [facility] SARS-COV-2 COVID-19 PFIZER VACCINE 2020-08-18 00:00:00 Completed [facility] SARS-COV-2 COVID-19 PFIZER VACCINE 2020-08-18 00:00:00 Completed [facility] SARS-COV-2 COVID-19 PFIZER VACCINE 2020-08-18 00:00:00 Completed [facility] SARS-COV-2 COVID-19 PFIZER VACCINE 2020-08-18 00:00:00 Completed [facility] SARS-COV-2 COVID-19 PFIZER VACCINE 2020-08-18 00:00:00 Completed [facility] SARS-COV-2 COVID-19 PFIZER VACCINE 2020-08-18 00:00:00 Completed [facility] SARS-COV-2 COVID-19 PFIZER VACCINE 2020-08-18 00:00:00 Completed [facility] SARS-COV-2 COVID-19 PFIZER VACCINE 2020-08-18 00:00:00 Completed [facility] SARS-COV-2 COVID-19 PFIZER VACCINE 2020-08-18 00:00:00 Completed [facility] SARS-COV-2 COVID-19 PFIZER VACCINE 2020-08-18 00:00:00 Completed [facility] SARS-COV-2 COVID-19 PFIZER VACCINE 2020-08-18 00:00:00 Completed [facility] SARS-COV-2 COVID-19 PFIZER VACCINE 2020-08-18 00:00:00 Completed [facility] SARS-COV-2 COVID-19 PFIZER VACCINE 2020-08-18 00:00:00 Completed [facility] SARS-COV-2 COVID-19 PFIZER VACCINE 2020-08-18 00:00:00 Completed [facility] SARS-COV-2 COVID-19 PFIZER VACCINE 2020-08-18 00:00:00 Completed [facility] SARS-COV-2 COVID-19 PFIZER VACCINE 2020-08-18 00:00:00 Completed [facility] SARS-COV-2 COVID-19 PFIZER VACCINE 2020-08-18 00:00:00 Completed [facility] SARS-COV-2 COVID-19 PFIZER VACCINE 2020-08-18 00:00:00 Completed [facility] SARS-COV-2 COVID-19 PFIZER VACCINE 2020-08-18 00:00:00 Completed [facility] SARS-COV-2 COVID-19 PFIZER VACCINE 2020-08-18 00:00:00 Completed [facility] SARS-COV-2 COVID-19 PFIZER VACCINE 2020-08-18 00:00:00 Completed [facility] SARS-COV-2 COVID-19 PFIZER VACCINE 2020-08-18 00:00:00 Completed [facility] SARS-COV-2 COVID-19 PFIZER VACCINE 2020-08-18 00:00:00 Completed [facility] SARS-COV-2 COVID-19 PFIZER VACCINE 2020-08-18 00:00:00 Completed [facility] SARS-COV-2 COVID-19 PFIZER VACCINE 2020-08-18 00:00:00 Completed [facility] SARS-COV-2 COVID-19 PFIZER VACCINE 2020-08-18 00:00:00 Completed [facility] SARS-COV-2 COVID-19 PFIZER VACCINE 2020-08-18 00:00:00 Completed [facility] SARS-COV-2 COVID-19 PFIZER VACCINE 2020-08-18 00:00:00 Completed [facility] SARS-COV-2 COVID-19 PFIZER VACCINE 2020-08-18 00:00:00 Completed [facility] SARS-COV-2 COVID-19 PFIZER VACCINE 2020-08-18 00:00:00 Completed [facility] SARS-COV-2 COVID-19 PFIZER VACCINE 2020-08-18 00:00:00 Completed [facility] SARS-COV-2 COVID-19 PFIZER VACCINE 2020-08-18 00:00:00 Completed [facility] SARS-COV-2 COVID-19 PFIZER VACCINE 2020-08-18 00:00:00 Completed [facility] SARS-COV-2 COVID-19 PFIZER VACCINE 2020-08-18 00:00:00 Completed [facility] SARS-COV-2 COVID-19 PFIZER VACCINE 2020-08-18 00:00:00 Completed [facility] SARS-COV-2 COVID-19 PFIZER VACCINE 2020-08-18 00:00:00 Completed [facility] SARS-COV-2 COVID-19 PFIZER VACCINE 2020-08-18 00:00:00 Completed [facility] SARS-COV-2 COVID-19 PFIZER VACCINE 2020-08-18 00:00:00 Completed [facility] SARS-COV-2 COVID-19 PFIZER VACCINE 2020-08-18 00:00:00 Completed [facility] SARS-COV-2 COVID-19 PFIZER VACCINE 2020-08-18 00:00:00 Completed [facility] SARS-COV-2 COVID-19 PFIZER VACCINE 2020-08-18 00:00:00 Completed [facility] SARS-COV-2 COVID-19 PFIZER VACCINE 2020-08-18 00:00:00 Completed [facility] SARS-COV-2 COVID-19 PFIZER VACCINE 2020-08-18 00:00:00 Completed [facility] SARS-COV-2 COVID-19 PFIZER VACCINE 2020-08-18 00:00:00 Completed [facility] SARS-COV-2 COVID-19 PFIZER VACCINE 2020-08-18 00:00:00 Completed [facility] SARS-COV-2 COVID-19 PFIZER VACCINE 2020-08-18 00:00:00 Completed [facility] SARS-COV-2 COVID-19 PFIZER VACCINE 2020-08-18 00:00:00 Completed [facility] SARS-COV-2 COVID-19 PFIZER VACCINE 2020-08-18 00:00:00 Completed [facility] SARS-COV-2 COVID-19 PFIZER VACCINE 2020-08-18 00:00:00 Completed [facility] SARS-COV-2 COVID-19 PFIZER VACCINE 2020-08-18 00:00:00 Completed [facility] SARS-COV-2 COVID-19 PFIZER VACCINE 2020-08-18 00:00:00 Completed [facility] SARS-COV-2 COVID-19 PFIZER VACCINE 2020-08-18 00:00:00 Completed [facility] SARS-COV-2 COVID-19 PFIZER VACCINE 2020-08-18 00:00:00 Completed [facility] SARS-COV-2 COVID-19 PFIZER VACCINE 2020-08-18 00:00:00 Completed [facility] SARS-COV-2 COVID-19 PFIZER VACCINE 2020-08-18 00:00:00 Completed [facility] SARS-COV-2 COVID-19 PFIZER VACCINE 2020-08-18 00:00:00 Completed [facility] SARS-COV-2 COVID-19 PFIZER VACCINE 2020-08-18 00:00:00 Completed [facility] SARS-COV-2 COVID-19 PFIZER VACCINE 2020-08-18 00:00:00 Completed [facility] SARS-COV-2 COVID-19 PFIZER VACCINE 2020-08-18 00:00:00 Completed [facility] SARS-COV-2 COVID-19 PFIZER VACCINE 2020-08-18 00:00:00 Completed [facility] SARS-COV-2 COVID-19 PFIZER VACCINE 2020-08-18 00:00:00 Completed [facility] SARS-COV-2 COVID-19 PFIZER VACCINE 2020-08-18 00:00:00 Completed [facility] SARS-COV-2 COVID-19 PFIZER VACCINE 2020-08-18 00:00:00 Completed [facility] SARS-COV-2 COVID-19 PFIZER VACCINE 2020-08-18 00:00:00 Completed [facility] SARS-COV-2 COVID-19 PFIZER VACCINE 2020-08-18 00:00:00 Completed [facility] Pfizer COVID-19 Vaccine Pfizer COVID-19 Vaccine 2020-08-18 00:00:00 Completed SARS-COV-2 COVID-19 PFIZER VACCINE 2020-07-25 00:00:00 Completed [facility] SARS-COV-2 COVID-19 PFIZER VACCINE 2020-07-25 00:00:00 Completed [facility] SARS-COV-2 COVID-19 PFIZER VACCINE 2020-07-25 00:00:00 Completed [facility] SARS-COV-2 COVID-19 PFIZER VACCINE 2020-07-25 00:00:00 Completed [facility] SARS-COV-2 COVID-19 PFIZER VACCINE 2020-07-25 00:00:00 Completed [facility] SARS-COV-2 COVID-19 PFIZER VACCINE 2020-07-25 00:00:00 Completed [facility] SARS-COV-2 COVID-19 PFIZER VACCINE 2020-07-25 00:00:00 Completed [facility] SARS-COV-2 COVID-19 PFIZER VACCINE 2020-07-25 00:00:00 Completed [facility] SARS-COV-2 COVID-19 PFIZER VACCINE 2020-07-25 00:00:00 Completed [facility] SARS-COV-2 COVID-19 PFIZER VACCINE 2020-07-25 00:00:00 Completed [facility] SARS-COV-2 COVID-19 PFIZER VACCINE 2020-07-25 00:00:00 Completed [facility] SARS-COV-2 COVID-19 PFIZER VACCINE 2020-07-25 00:00:00 Completed [facility] SARS-COV-2 COVID-19 PFIZER VACCINE 2020-07-25 00:00:00 Completed [facility] SARS-COV-2 COVID-19 PFIZER VACCINE 2020-07-25 00:00:00 Completed [facility] SARS-COV-2 COVID-19 PFIZER VACCINE 2020-07-25 00:00:00 Completed [facility] SARS-COV-2 COVID-19 PFIZER VACCINE 2020-07-25 00:00:00 Completed [facility] SARS-COV-2 COVID-19 PFIZER VACCINE 2020-07-25 00:00:00 Completed [facility] SARS-COV-2 COVID-19 PFIZER VACCINE 2020-07-25 00:00:00 Completed [facility] SARS-COV-2 COVID-19 PFIZER VACCINE 2020-07-25 00:00:00 Completed [facility] SARS-COV-2 COVID-19 PFIZER VACCINE 2020-07-25 00:00:00 Completed [facility] SARS-COV-2 COVID-19 PFIZER VACCINE 2020-07-25 00:00:00 Completed [facility] SARS-COV-2 COVID-19 PFIZER VACCINE 2020-07-25 00:00:00 Completed [facility] SARS-COV-2 COVID-19 PFIZER VACCINE 2020-07-25 00:00:00 Completed [facility] SARS-COV-2 COVID-19 PFIZER VACCINE 2020-07-25 00:00:00 Completed [facility] SARS-COV-2 COVID-19 PFIZER VACCINE 2020-07-25 00:00:00 Completed [facility] SARS-COV-2 COVID-19 PFIZER VACCINE 2020-07-25 00:00:00 Completed [facility] SARS-COV-2 COVID-19 PFIZER VACCINE 2020-07-25 00:00:00 Completed [facility] SARS-COV-2 COVID-19 PFIZER VACCINE 2020-07-25 00:00:00 Completed [facility] SARS-COV-2 COVID-19 PFIZER VACCINE 2020-07-25 00:00:00 Completed [facility] SARS-COV-2 COVID-19 PFIZER VACCINE 2020-07-25 00:00:00 Completed [facility] SARS-COV-2 COVID-19 PFIZER VACCINE 2020-07-25 00:00:00 Completed [facility] SARS-COV-2 COVID-19 PFIZER VACCINE 2020-07-25 00:00:00 Completed [facility] SARS-COV-2 COVID-19 PFIZER VACCINE 2020-07-25 00:00:00 Completed [facility] SARS-COV-2 COVID-19 PFIZER VACCINE 2020-07-25 00:00:00 Completed [facility] SARS-COV-2 COVID-19 PFIZER VACCINE 2020-07-25 00:00:00 Completed [facility] SARS-COV-2 COVID-19 PFIZER VACCINE 2020-07-25 00:00:00 Completed [facility] SARS-COV-2 COVID-19 PFIZER VACCINE 2020-07-25 00:00:00 Completed [facility] SARS-COV-2 COVID-19 PFIZER VACCINE 2020-07-25 00:00:00 Completed [facility] SARS-COV-2 COVID-19 PFIZER VACCINE 2020-07-25 00:00:00 Completed [facility] SARS-COV-2 COVID-19 PFIZER VACCINE 2020-07-25 00:00:00 Completed [facility] SARS-COV-2 COVID-19 PFIZER VACCINE 2020-07-25 00:00:00 Completed [facility] SARS-COV-2 COVID-19 PFIZER VACCINE 2020-07-25 00:00:00 Completed [facility] SARS-COV-2 COVID-19 PFIZER VACCINE 2020-07-25 00:00:00 Completed [facility] SARS-COV-2 COVID-19 PFIZER VACCINE 2020-07-25 00:00:00 Completed [facility] SARS-COV-2 COVID-19 PFIZER VACCINE 2020-07-25 00:00:00 Completed [facility] SARS-COV-2 COVID-19 PFIZER VACCINE 2020-07-25 00:00:00 Completed [facility] SARS-COV-2 COVID-19 PFIZER VACCINE 2020-07-25 00:00:00 Completed [facility] SARS-COV-2 COVID-19 PFIZER VACCINE 2020-07-25 00:00:00 Completed [facility] SARS-COV-2 COVID-19 PFIZER VACCINE 2020-07-25 00:00:00 Completed [facility] SARS-COV-2 COVID-19 PFIZER VACCINE 2020-07-25 00:00:00 Completed [facility] SARS-COV-2 COVID-19 PFIZER VACCINE 2020-07-25 00:00:00 Completed [facility] SARS-COV-2 COVID-19 PFIZER VACCINE 2020-07-25 00:00:00 Completed [facility] SARS-COV-2 COVID-19 PFIZER VACCINE 2020-07-25 00:00:00 Completed [facility] SARS-COV-2 COVID-19 PFIZER VACCINE 2020-07-25 00:00:00 Completed [facility] SARS-COV-2 COVID-19 PFIZER VACCINE 2020-07-25 00:00:00 Completed [facility] SARS-COV-2 COVID-19 PFIZER VACCINE 2020-07-25 00:00:00 Completed [facility] SARS-COV-2 COVID-19 PFIZER VACCINE 2020-07-25 00:00:00 Completed [facility] SARS-COV-2 COVID-19 PFIZER VACCINE 2020-07-25 00:00:00 Completed [facility] SARS-COV-2 COVID-19 PFIZER VACCINE 2020-07-25 00:00:00 Completed [facility] SARS-COV-2 COVID-19 PFIZER VACCINE 2020-07-25 00:00:00 Completed [facility] SARS-COV-2 COVID-19 PFIZER VACCINE 2020-07-25 00:00:00 Completed [facility] SARS-COV-2 COVID-19 PFIZER VACCINE 2020-07-25 00:00:00 Completed [facility] SARS-COV-2 COVID-19 PFIZER VACCINE 2020-07-25 00:00:00 Completed [facility] SARS-COV-2 COVID-19 PFIZER VACCINE 2020-07-25 00:00:00 Completed [facility] SARS-COV-2 COVID-19 PFIZER VACCINE 2020-07-25 00:00:00 Completed [facility] SARS-COV-2 COVID-19 PFIZER VACCINE 2020-07-25 00:00:00 Completed [facility] SARS-COV-2 COVID-19 PFIZER VACCINE 2020-07-25 00:00:00 Completed [facility] SARS-COV-2 COVID-19 PFIZER VACCINE 2020-07-25 00:00:00 Completed [facility] SARS-COV-2 COVID-19 PFIZER VACCINE 2020-07-25 00:00:00 Completed [facility] SARS-COV-2 COVID-19 PFIZER VACCINE 2020-07-25 00:00:00 Completed [facility] SARS-COV-2 COVID-19 PFIZER VACCINE 2020-07-25 00:00:00 Completed [facility] SARS-COV-2 COVID-19 PFIZER VACCINE 2020-07-25 00:00:00 Completed [facility] SARS-COV-2 COVID-19 PFIZER VACCINE 2020-07-25 00:00:00 Completed [facility] SARS-COV-2 COVID-19 PFIZER VACCINE 2020-07-25 00:00:00 Completed [facility] SARS-COV-2 COVID-19 PFIZER VACCINE 2020-07-25 00:00:00 Completed [facility] SARS-COV-2 COVID-19 PFIZER VACCINE 2020-07-25 00:00:00 Completed [facility] SARS-COV-2 COVID-19 PFIZER VACCINE 2020-07-25 00:00:00 Completed [facility] SARS-COV-2 COVID-19 PFIZER VACCINE 2020-07-25 00:00:00 Completed [facility] SARS-COV-2 COVID-19 PFIZER VACCINE 2020-07-25 00:00:00 Completed [facility] SARS-COV-2 COVID-19 PFIZER VACCINE 2020-07-25 00:00:00 Completed [facility] SARS-COV-2 COVID-19 PFIZER VACCINE 2020-07-25 00:00:00 Completed [facility] SARS-COV-2 COVID-19 PFIZER VACCINE 2020-07-25 00:00:00 Completed [facility] SARS-COV-2 COVID-19 PFIZER VACCINE 2020-07-25 00:00:00 Completed [facility] SARS-COV-2 COVID-19 PFIZER VACCINE 2020-07-25 00:00:00 Completed [facility] SARS-COV-2 COVID-19 PFIZER VACCINE 2020-07-25 00:00:00 Completed [facility] SARS-COV-2 COVID-19 PFIZER VACCINE 2020-07-25 00:00:00 Completed [facility] SARS-COV-2 COVID-19 PFIZER VACCINE 2020-07-25 00:00:00 Completed [facility] Pfizer COVID-19 Vaccine Pfizer COVID-19 Vaccine 2020-07-25 00:00:00 Completed Influenza Virus Vaccine Recomb Quad IM, Preserv and ABX Free 1866 2020-04-04 00:00:00 Completed [facility] Influenza Virus Vaccine Recomb Quad IM, Preserv and ABX Free 1864 2020-04-04 00:00:00 Completed [facility] Influenza Virus Vaccine Recomb Quad IM, Preserv and ABX Free 1864 2020-04-04 00:00:00 Completed [facility] Influenza Virus Vaccine Recomb Quad IM, Preserv and ABX Free 18-64 YRS 2020-04-04 00:00:00 Completed [facility] Influenza Virus Vaccine Recomb Quad IM, Preserv and ABX Free 18-64 YRS 2020-04-04 00:00:00 Completed [facility] Influenza Virus Vaccine Recomb Quad IM, Preserv and ABX Free 18-64 YRS 2020-04-04 00:00:00 Completed [facility] Influenza Virus Vaccine Recomb Quad IM, Preserv and ABX Free 18-64 [facility] 2020-04-04 00:00:00 Completed [facility] Influenza Virus Vaccine Recomb Quad IM, Preserv and ABX Free 18-64 YRS 2020-04-04 00:00:00 Completed [facility] Influenza Virus Vaccine Recomb Quad IM, Preserv and ABX Free 18-64 YRS 2020-04-04 00:00:00 Completed [facility] Influenza Virus Vaccine Recomb Quad IM, Preserv and ABX Free 18-64 [facility] 2020-04-04 00:00:00 Completed [facility] Influenza Virus Vaccine Recomb Quad IM, Preserv and ABX Free 18-64 [facility] 2020-04-04 00:00:00 Completed [facility] Influenza Virus Vaccine Recomb Quad IM, Preserv and ABX Free 18-64 [facility] 2020-04-04 00:00:00 Completed [facility] Influenza Virus Vaccine Recomb Quad IM, Preserv and ABX Free 18-64 [facility] 2020-04-04 00:00:00 Completed [facility] Influenza Virus Vaccine Recomb Quad IM, Preserv and ABX Free 18-64 [facility] 2020-04-04 00:00:00 Completed [facility] Influenza Virus Vaccine Recomb Quad IM, Preserv and ABX Free 18-64 [facility] 2020-04-04 00:00:00 Completed [facility] Influenza Virus Vaccine Recomb Quad IM, Preserv and ABX Free 18-64 [facility] 2020-04-04 00:00:00 Completed [facility] Influenza Virus Vaccine Recomb Quad IM, Preserv and ABX Free 18-64 [facility] 2020-04-04 00:00:00 Completed [facility] Influenza Virus Vaccine Recomb Quad IM, Preserv and ABX Free 1866 [facility] 2020-04-04 00:00:00 Completed [facility] Influenza Virus Vaccine Recomb Quad IM, Preserv and ABX Free 18-64 [facility] 2020-04-04 00:00:00 Completed [facility] Influenza Virus Vaccine Recomb Quad IM, Preserv and ABX Free 18-64 [facility] 2020-04-04 00:00:00 Completed [facility] Influenza Virus Vaccine Recomb Quad IM, Preserv and ABX Free 18-64 YRS 2020-04-04 00:00:00 Completed [facility] Influenza Virus Vaccine Recomb Quad IM, Preserv and ABX Free 18-64 [facility] 2020-04-04 00:00:00 Completed [facility] Influenza Virus Vaccine Recomb Quad IM, Preserv and ABX Free 18-64 [facility] 2020-04-04 00:00:00 Completed [facility] Influenza Virus Vaccine Recomb Quad IM, Preserv and ABX Free 18-64 [facility] 2020-04-04 00:00:00 Completed [facility] Influenza Virus Vaccine Recomb Quad IM, Preserv and ABX Free 1866 [facility] 2020-04-04 00:00:00 Completed [facility] Influenza Virus Vaccine Recomb Quad IM, Preserv and ABX Free 18-64 [facility] 2020-04-04 00:00:00 Completed [facility] Influenza Virus Vaccine Recomb Quad IM, Preserv and ABX Free 18-64 [facility] 2020-04-04 00:00:00 Completed [facility] Influenza Virus Vaccine Recomb Quad IM, Preserv and ABX Free 18-64 [facility] 2020-04-04 00:00:00 Completed [facility] Influenza Virus Vaccine Recomb Quad IM, Preserv and ABX Free 18-64 [facility] 2020-04-04 00:00:00 Completed [facility] Influenza Virus Vaccine Recomb Quad IM, Preserv and ABX Free 18-64 [facility] 2020-04-04 00:00:00 Completed [facility] Influenza Virus Vaccine Recomb Quad IM, Preserv and ABX Free 18-64 [facility] 2020-04-04 00:00:00 Completed [facility] Influenza Virus Vaccine Recomb Quad IM, Preserv and ABX Free 18-64 [facility] 2020-04-04 00:00:00 Completed [facility] Influenza Virus Vaccine Recomb Quad IM, Preserv and ABX Free 18-64 [facility] 2020-04-04 00:00:00 Completed [facility] Influenza Virus Vaccine Recomb Quad IM, Preserv and ABX Free 18-64 YRS 2020-04-04 00:00:00 Completed [facility] Influenza Virus Vaccine Recomb Quad IM, Preserv and ABX Free 18-64 YRS 2020-04-04 00:00:00 Completed [facility] Influenza Virus Vaccine Recomb Quad IM, Preserv and ABX Free 18-64 [facility] 2020-04-04 00:00:00 Completed [facility] Influenza Virus Vaccine Recomb Quad IM, Preserv and ABX Free 18-64 [facility] 2020-04-04 00:00:00 Completed [facility] [facility] Influenza Virus Vaccine Recomb Quad IM, Preserv and ABX Free 18-64 [facility] 2020-04-04 00:00:00 Completed [facility] Influenza Virus Vaccine Recomb Quad IM, Preserv and ABX Free 1864 [facility] 2020-04-04 00:00:00 Completed [facility] Influenza Virus Vaccine Recomb Quad IM, Preserv and ABX Free 1864 [facility] 2020-04-04 00:00:00 Completed [facility] Influenza Virus Vaccine Recomb Quad IM, Preserv and ABX Free 1864 [facility] 2020-04-04 00:00:00 Completed [facility] Influenza Virus Vaccine Recomb Quad IM, Preserv and ABX Free 1864 [facility] 2020-04-04 00:00:00 Completed [facility] Influenza Virus Vaccine Recomb Quad IM, Preserv and ABX Free 1864 [facility] 2020-04-04 00:00:00 Completed [facility] Influenza Virus Vaccine Recomb Quad IM, Preserv and ABX Free 18-64 [facility] 2020-04-04 00:00:00 Completed [facility] Influenza Virus Vaccine Recomb Quad IM, Preserv and ABX Free 18-64 [facility] 2020-04-04 00:00:00 Completed [facility] Influenza Virus Vaccine Recomb Quad IM, Preserv and ABX Free 1864 [facility] 2020-04-04 00:00:00 Completed [facility] Influenza Virus Vaccine Recomb Quad IM, Preserv and ABX Free 18-64 [facility] 2020-04-04 00:00:00 Completed [facility] Influenza Virus Vaccine Recomb Quad IM, Preserv and ABX Free 18-64 [facility] 2020-04-04 00:00:00 Completed [facility] Influenza Virus Vaccine Recomb Quad IM, Preserv and ABX Free 18-64 YRS 2020-04-04 00:00:00 Completed [facility] Influenza Virus Vaccine Recomb Quad IM, Preserv and ABX Free 18-64 [facility] 2020-04-04 00:00:00 Completed [facility] Influenza Virus Vaccine Recomb Quad IM, Preserv and ABX Free 18-64 [facility] 2020-04-04 00:00:00 Completed [facility] Influenza Virus Vaccine Recomb Quad IM, Preserv and ABX Free 18-64 [facility] 2020-04-04 00:00:00 Completed [facility] Influenza Virus Vaccine Recomb Quad IM, Preserv and ABX Free 18-64 [facility] 2020-04-04 00:00:00 Completed [facility] Influenza Virus Vaccine Recomb Quad IM, Preserv and ABX Free 1864 [facility] 2020-04-04 00:00:00 Completed [facility] Influenza Virus Vaccine Recomb Quad IM, Preserv and ABX Free 1864 [facility] 2020-04-04 00:00:00 Completed [facility] Influenza Virus Vaccine Recomb Quad IM, Preserv and ABX Free 1864 [facility] 2020-04-04 00:00:00 Completed [facility] Influenza Virus Vaccine Recomb Quad IM, Preserv and ABX Free 1864 [facility] 2020-04-04 00:00:00 Completed [facility] Influenza Virus Vaccine Recomb Quad IM, Preserv and ABX Free 1864 [facility] 2020-04-04 00:00:00 Completed [facility] Influenza Virus Vaccine Recomb Quad IM, Preserv and ABX Free 18-64 [facility] 2020-04-04 00:00:00 Completed [facility] Influenza Virus Vaccine Recomb Quad IM, Preserv and ABX Free 1864 [facility] 2020-04-04 00:00:00 Completed [facility] Influenza Virus Vaccine Recomb Quad IM, Preserv and ABX Free 1864 [facility] 2020-04-04 00:00:00 Completed [facility] Influenza Virus Vaccine Recomb Quad IM, Preserv and ABX Free 1864 [facility] 2020-04-04 00:00:00 Completed [facility] Influenza Virus Vaccine Recomb Quad IM, Preserv and ABX Free 1864 [facility] 2020-04-04 00:00:00 Completed [facility] Influenza Virus Vaccine Recomb Quad IM, Preserv and ABX Free 18-64 YRS 2020-04-04 00:00:00 Completed [facility] Influenza Virus Vaccine Recomb Quad IM, Preserv and ABX Free 18-64 YRS 2020-04-04 00:00:00 Completed [facility] Influenza Virus Vaccine Recomb Quad IM, Preserv and ABX Free 18-64 YRS 2020-04-04 00:00:00 Completed [facility] Influenza Virus Vaccine Recomb Quad IM, Preserv and ABX Free 18-64 YRS 2020-04-04 00:00:00 Completed [facility] Influenza Virus Vaccine Recomb Quad IM, Preserv and ABX Free 18-64 YRS 2020-04-04 00:00:00 Completed [facility] Influenza Virus Vaccine Recomb Quad IM, Preserv and ABX Free 18-64 YRS 2020-04-04 00:00:00 Completed [facility] Influenza Virus Vaccine Recomb Quad IM, Preserv and ABX Free 18-64 YRS 2020-04-04 00:00:00 Completed [facility] Influenza Virus Vaccine Recomb Quad IM, Preserv and ABX Free 18-64 [facility] 2020-04-04 00:00:00 Completed [facility] Influenza Virus Vaccine Recomb Quad IM, Preserv and ABX Free 18-64 YRS 2020-04-04 00:00:00 Completed [facility] Influenza Virus Vaccine Recomb Quad IM, Preserv and ABX Free 18-64 [facility] 2020-04-04 00:00:00 Completed [facility] Influenza Virus Vaccine Recomb Quad IM, Preserv and ABX Free 18-64 YRS 2020-04-04 00:00:00 Completed [facility] Influenza Virus Vaccine Recomb Quad IM, Preserv and ABX Free 18-64 YRS 2020-04-04 00:00:00 Completed [facility] Influenza Virus Vaccine Recomb Quad IM, Preserv and ABX Free 18-64 YRS 2020-04-04 00:00:00 Completed [facility] Influenza Virus Vaccine Recomb Quad IM, Preserv and ABX Free 18-64 YRS 2020-04-04 00:00:00 Completed [facility] Influenza Virus Vaccine Recomb Quad IM, Preserv and ABX Free 18-64 YRS 2020-04-04 00:00:00 Completed [facility] Influenza Virus Vaccine Recomb Quad IM, Preserv and ABX Free 18-64 YRS 2020-04-04 00:00:00 Completed [facility] Influenza Virus Vaccine Recomb Quad IM, Preserv and ABX Free 18-64 YRS 2020-04-04 00:00:00 Completed [facility] Influenza Virus Vaccine Recomb Quad IM, Preserv and ABX Free 18-64 YRS 2020-04-04 00:00:00 Completed [facility] Influenza Virus Vaccine Recomb Quad IM, Preserv and ABX Free 18-64 YRS 2020-04-04 00:00:00 Completed [facility] Influenza Virus Vaccine Recomb Quad IM, Preserv and ABX Free 18-64 YRS 2020-04-04 00:00:00 Completed [facility] Influenza Virus Vaccine Recomb Quad IM, Preserv and ABX Free 18-64 YRS 2020-04-04 00:00:00 Completed [facility] Influenza Virus Vaccine Recomb Quad IM, Preserv and ABX Free 18-64 YRS 2020-04-04 00:00:00 Completed [facility] Influenza Virus Vaccine Recomb Quad IM, Preserv and ABX Free 18-64 YRS 2020-04-04 00:00:00 Completed [facility] Influenza Virus Vaccine Recomb Quad IM, Preserv and ABX Free 18-64 YRS 2020-04-04 00:00:00 Completed [facility] TDAP (ADACEL) VACCINE 2019-04-10 00:00:00 Completed [facility] TDAP (ADACEL) VACCINE 2019-04-10 00:00:00 Completed [facility] TDAP (ADACEL) VACCINE 2019-04-10 00:00:00 Completed [facility] TDAP (ADACEL) VACCINE 2019-04-10 00:00:00 Completed [facility] TDAP (ADACEL) VACCINE 2019-04-10 00:00:00 Completed [facility] TDAP (ADACEL) VACCINE 2019-04-10 00:00:00 Completed [facility] TDAP (ADACEL) VACCINE 2019-04-10 00:00:00 Completed [facility] TDAP (ADACEL) VACCINE 2019-04-10 00:00:00 Completed [facility] TDAP (ADACEL) VACCINE 2019-04-10 00:00:00 Completed [facility] TDAP (ADACEL) VACCINE 2019-04-10 00:00:00 Completed [facility] TDAP (ADACEL) VACCINE 2019-04-10 00:00:00 Completed [facility] TDAP (ADACEL) VACCINE 2019-04-10 00:00:00 Completed [facility] TDAP (ADACEL) VACCINE 2019-04-10 00:00:[address] [facility] TDAP (ADACEL) VACCINE 2019-04-10 00:00:00 Completed [facility] TDAP (ADACEL) VACCINE 2019-04-10 00:00:[address] [facility] TDAP (ADACEL) VACCINE 2019-04-10 00:00:00 Completed [facility] TDAP (ADACEL) VACCINE 2019-04-10 00:00:00 Completed [facility] TDAP (ADACEL) VACCINE 2019-04-10 00:00:00 Completed [facility] TDAP (ADACEL) VACCINE 2019-04-10 00:00:00 Completed [facility] TDAP (ADACEL) VACCINE 2019-04-10 00:00:00 Completed [facility] TDAP (ADACEL) VACCINE 2019-04-10 00:00:00 Completed [facility] TDAP (ADACEL) VACCINE 2019-04-10 00:00:00 Completed [facility] TDAP (ADACEL) VACCINE 2019-04-10 00:00:00 Completed [facility] TDAP (ADACEL) VACCINE 2019-04-10 00:00:00 Completed [facility] TDAP (ADACEL) VACCINE 2019-04-10 00:00:00 Completed [facility] TDAP (ADACEL) VACCINE 2019-04-10 00:00:00 Completed [facility] TDAP (ADACEL) VACCINE 2019-04-10 00:00:00 Completed [facility] TDAP (ADACEL) VACCINE 2019-04-10 00:00:00 Completed [facility] TDAP (ADACEL) VACCINE 2019-04-10 00:00:00 Completed [facility] TDAP (ADACEL) VACCINE 2019-04-10 00:00:00 Completed [facility] TDAP (ADACEL) VACCINE 2019-04-10 00:00:00 Completed [facility] TDAP (ADACEL) VACCINE 2019-04-10 00:00:00 Completed [facility] TDAP (ADACEL) VACCINE 2019-04-10 00:00:[address] [facility] TDAP (ADACEL) VACCINE 2019-04-10 00:00:[address] [facility] TDAP (ADACEL) VACCINE 2019-04-10 00:00:00 Completed [facility] TDAP (ADACEL) VACCINE 2019-04-10 00:00:00 Completed [facility] TDAP (ADACEL) VACCINE 2019-04-10 00:00:00 Completed [facility] TDAP (ADACEL) VACCINE 2019-04-10 00:00:00 Completed [facility] TDAP (ADACEL) VACCINE 2019-04-10 00:00:00 Completed [facility] TDAP (ADACEL) VACCINE 2019-04-10 00:00:00 Completed [facility] TDAP (ADACEL) VACCINE 2019-04-10 00:00:00 Completed [facility] TDAP (ADACEL) VACCINE 2019-04-10 00:00:00 Completed [facility] TDAP (ADACEL) VACCINE 2019-04-10 00:00:00 Completed [facility] TDAP (ADACEL) VACCINE 2019-04-10 00:00:00 Completed [facility] TDAP (ADACEL) VACCINE 2019-04-10 00:00:00 Completed [facility] TDAP (ADACEL) VACCINE 2019-04-10 00:00:00 Completed [facility] TDAP (ADACEL) VACCINE 2019-04-10 00:00:00 Completed [facility] TDAP (ADACEL) VACCINE 2019-04-10 00:00:00 Completed [facility] TDAP (ADACEL) VACCINE 2019-04-10 00:00:00 Completed [facility] TDAP (ADACEL) VACCINE 2019-04-10 00:00:00 Completed [facility] TDAP (ADACEL) VACCINE 2019-04-10 00:00:00 Completed [facility] TDAP (ADACEL) VACCINE 2019-04-10 00:00:[address] [facility] TDAP (ADACEL) VACCINE 2019-04-10 00:00:00 Completed [facility] TDAP (ADACEL) VACCINE 2019-04-10 00:00:00 Completed [facility] TDAP (ADACEL) VACCINE 2019-04-10 00:00:[address] [facility] TDAP (ADACEL) VACCINE 2019-04-10 00:00:00 Completed [facility] TDAP (ADACEL) VACCINE 2019-04-10 00:00:00 Completed [facility] TDAP (ADACEL) VACCINE 2019-04-10 00:00:00 Completed [facility] TDAP (ADACEL) VACCINE 2019-04-10 00:00:00 Completed [facility] TDAP (ADACEL) VACCINE 2019-04-10 00:00:00 Completed [facility] TDAP (ADACEL) VACCINE 2019-04-10 00:00:00 Completed [facility] TDAP (ADACEL) VACCINE 2019-04-10 00:00:00 Completed [facility] TDAP (ADACEL) VACCINE 2019-04-10 00:00:00 Completed [facility] TDAP (ADACEL) VACCINE 2019-04-10 00:00:00 Completed [facility] TDAP (ADACEL) VACCINE 2019-04-10 00:00:00 Completed [facility] TDAP (ADACEL) VACCINE 2019-04-10 00:00:00 Completed [facility] TDAP (ADACEL) VACCINE 2019-04-10 00:00:00 Completed [facility] TDAP (ADACEL) VACCINE 2019-04-10 00:00:00 Completed [facility] TDAP (ADACEL) VACCINE 2019-04-10 00:00:00 Completed [facility] TDAP (ADACEL) VACCINE 2019-04-10 00:00:00 Completed [facility] TDAP (ADACEL) VACCINE 2019-04-10 00:00:00 Completed [facility] TDAP (ADACEL) VACCINE 2019-04-10 00:00:00 Completed [facility] TDAP (ADACEL) VACCINE 2019-04-10 00:00:00 Completed [facility] TDAP (ADACEL) VACCINE 2019-04-10 00:00:00 Completed [facility] TDAP (ADACEL) VACCINE 2019-04-10 00:00:00 Completed [facility] TDAP (ADACEL) VACCINE 2019-04-10 00:00:00 Completed [facility] TDAP (ADACEL) VACCINE 2019-04-10 00:00:00 Completed [facility] TDAP (ADACEL) VACCINE 2019-04-10 00:00:00 Completed [facility] TDAP (ADACEL) VACCINE 2019-04-10 00:00:00 Completed [facility] TDAP (ADACEL) VACCINE 2019-04-10 00:00:00 Completed [facility] TDAP (ADACEL) VACCINE 2019-04-10 00:00:00 Completed [facility] TDAP (ADACEL) VACCINE 2019-04-10 00:00:00 Completed [facility] TDAP (ADACEL) VACCINE 2019-04-10 00:00:00 Completed [facility] TDAP (ADACEL) VACCINE 2019-04-10 00:00:00 Completed [facility] TDAP (ADACEL) VACCINE 2019-04-10 00:00:00 Completed [facility] TDAP (ADACEL) VACCINE 2019-04-10 00:00:00 Completed [facility] TDAP (ADACEL) VACCINE 2019-04-10 00:00:00 Completed [facility] Influenza Virus Vaccine Quad .5 mL IM 6+ MO 2019-02-09 00:00:00 Completed [facility] Influenza Virus Vaccine Quad .5 mL IM 6+ MO 2019-02-09 00:00:00 Completed [facility] Influenza Virus Vaccine Quad .5 mL IM 6+ MO 2019-02-09 00:00:00 Completed [facility] Influenza Virus Vaccine Quad .5 mL IM 6+ MO 2019-02-09 00:00:00 Completed [facility] Influenza Virus Vaccine Quad .5 mL IM 6+ MO 2019-02-09 00:00:00 Completed [facility] Influenza Virus Vaccine Quad .5 mL IM 6+ MO 2019-02-09 00:00:00 Completed [facility] Influenza Virus Vaccine Quad .5 mL IM 6+ MO 2019-02-09 00:00:00 Completed [facility] Influenza Virus Vaccine Quad .5 mL IM 6+ MO 2019-02-09 00:00:00 Completed [facility] Influenza Virus Vaccine Quad .5 mL IM 6+ MO 2019-02-09 00:00:00 Completed [facility] Influenza Virus Vaccine Quad .5 mL IM 6+ MO 2019-02-09 00:00:00 Completed [facility] Influenza Virus Vaccine Quad .5 mL IM 6+ MO 2019-02-09 00:00:00 Completed [facility] Influenza Virus Vaccine Quad .5 mL IM 6+ MO 2019-02-09 00:00:00 Completed [facility] Influenza Virus Vaccine Quad .5 mL IM 6+ MO 2019-02-09 00:00:00 Completed [facility] Influenza Virus Vaccine Quad .5 mL IM 6+ MO 2019-02-09 00:00:00 Completed [facility] Influenza Virus Vaccine Quad .5 mL IM 6+ MO 2019-02-09 00:00:00 Completed [facility] Influenza Virus Vaccine Quad .5 mL IM 6+ MO 2019-02-09 00:00:00 Completed [facility] Influenza Virus Vaccine Quad .5 mL IM 6+ MO 2019-02-09 00:00:00 Completed [facility] Influenza Virus Vaccine Quad .5 mL IM 6+ MO 2019-02-09 00:00:00 Completed [facility] Influenza Virus Vaccine Quad .5 mL IM 6+ MO 2019-02-09 00:00:00 Completed [facility] Influenza Virus Vaccine Quad .5 mL IM 6+ MO 2019-02-09 00:00:00 Completed [facility] Influenza Virus Vaccine Quad .5 mL IM 6+ MO 2019-02-09 00:00:00 Completed [facility] Influenza Virus Vaccine Quad .5 mL IM 6+ MO 2019-02-09 00:00:00 Completed [facility] Influenza Virus Vaccine Quad .5 mL IM 6+ MO 2019-02-09 00:00:00 Completed [facility] Influenza Virus Vaccine Quad .5 mL IM 6+ MO 2019-02-09 00:00:00 Completed [facility] Influenza Virus Vaccine Quad .5 mL IM 6+ MO 2019-02-09 00:00:00 Completed [facility] Influenza Virus Vaccine Quad .5 mL IM 6+ MO 2019-02-09 00:00:00 Completed [facility] Influenza Virus Vaccine Quad .5 mL IM 6+ MO 2019-02-09 00:00:00 Completed [facility] Influenza Virus Vaccine Quad .5 mL IM 6+ MO 2019-02-09 00:00:00 Completed [facility] Influenza Virus Vaccine Quad .5 mL IM 6+ MO 2019-02-09 00:00:00 Completed [facility] Influenza Virus Vaccine Quad .5 mL IM 6+ MO 2019-02-09 00:00:00 Completed [facility] Influenza Virus Vaccine Quad .5 mL IM 6+ MO 2019-02-09 00:00:00 Completed [facility] Influenza Virus Vaccine Quad .5 mL IM 6+ MO 2019-02-09 00:00:00 Completed [facility] Influenza Virus Vaccine Quad .5 mL IM 6+ MO 2019-02-09 00:00:00 Completed [facility] Influenza Virus Vaccine Quad .5 mL IM 6+ MO 2019-02-09 00:00:00 Completed [facility] Influenza Virus Vaccine Quad .5 mL IM 6+ MO 2019-02-09 00:00:00 Completed [facility] Influenza Virus Vaccine Quad .5 mL IM 6+ MO 2019-02-09 00:00:00 Completed [facility] Influenza Virus Vaccine Quad .5 mL IM 6+ MO 2019-02-09 00:00:00 Completed [facility] Influenza Virus Vaccine Quad .5 mL IM 6+ MO 2019-02-09 00:00:00 Completed [facility] Influenza Virus Vaccine Quad .5 mL IM 6+ MO 2019-02-09 00:00:00 Completed [facility] Influenza Virus Vaccine Quad .5 mL IM 6+ MO 2019-02-09 00:00:00 Completed [facility] Influenza Virus Vaccine Quad .5 mL IM 6+ MO 2019-02-09 00:00:00 Completed [facility] Influenza Virus Vaccine Quad .5 mL IM 6+ MO 2019-02-09 00:00:00 Completed [facility] Influenza Virus Vaccine Quad .5 mL IM 6+ MO 2019-02-09 00:00:00 Completed [facility] Influenza Virus Vaccine Quad .5 mL IM 6+ MO 2019-02-09 00:00:00 Completed [facility] Influenza Virus Vaccine Quad .5 mL IM 6+ MO 2019-02-09 00:00:00 Completed [facility] Influenza Virus Vaccine Quad .5 mL IM 6+ MO 2019-02-09 00:00:00 Completed [facility] Influenza Virus Vaccine Quad .5 mL IM 6+ MO 2019-02-09 00:00:00 Completed [facility] Influenza Virus Vaccine Quad .5 mL IM 6+ MO 2019-02-09 00:00:00 Completed [facility] Influenza Virus Vaccine Quad .5 mL IM 6+ MO 2019-02-09 00:00:00 Completed [facility] Influenza Virus Vaccine Quad .5 mL IM 6+ MO 2019-02-09 00:00:00 Completed [facility] Influenza Virus Vaccine Quad .5 mL IM 6+ MO 2019-02-09 00:00:00 Completed [facility] Influenza Virus Vaccine Quad .5 mL IM 6+ MO 2019-02-09 00:00:00 Completed [facility] Influenza Virus Vaccine Quad .5 mL IM 6+ MO 2019-02-09 00:00:00 Completed [facility] Influenza Virus Vaccine Quad .5 mL IM 6+ MO 2019-02-09 00:00:00 Completed [facility] Influenza Virus Vaccine Quad .5 mL IM 6+ MO 2019-02-09 00:00:00 Completed [facility] Influenza Virus Vaccine Quad .5 mL IM 6+ MO 2019-02-09 00:00:00 Completed [facility] Influenza Virus Vaccine Quad .5 mL IM 6+ MO 2019-02-09 00:00:00 Completed [facility] Influenza Virus Vaccine Quad .5 mL IM 6+ MO 2019-02-09 00:00:00 Completed [facility] Influenza Virus Vaccine Quad .5 mL IM 6+ MO 2019-02-09 00:00:00 Completed [facility] Influenza Virus Vaccine Quad .5 mL IM 6+ MO 2019-02-09 00:00:00 Completed [facility] Influenza Virus Vaccine Quad .5 mL IM 6+ MO 2019-02-09 00:00:00 Completed [facility] Influenza Virus Vaccine Quad .5 mL IM 6+ MO 2019-02-09 00:00:00 Completed [facility] Influenza Virus Vaccine Quad .5 mL IM 6+ MO 2019-02-09 00:00:00 Completed [facility] Influenza Virus Vaccine Quad .5 mL IM 6+ MO 2019-02-09 00:00:00 Completed [facility] Influenza Virus Vaccine Quad .5 mL IM 6+ MO 2019-02-09 00:00:00 Completed [facility] Influenza Virus Vaccine Quad .5 mL IM 6+ MO 2019-02-09 00:00:00 Completed [facility] Influenza Virus Vaccine Quad .5 mL IM 6+ MO 2019-02-09 00:00:00 Completed [facility] Influenza Virus Vaccine Quad .5 mL IM 6+ MO 2019-02-09 00:00:00 Completed [facility] Influenza Virus Vaccine Quad .5 mL IM 6+ MO 2019-02-09 00:00:00 Completed [facility] Influenza Virus Vaccine Quad .5 mL IM 6+ MO 2019-02-09 00:00:00 Completed [facility] Influenza Virus Vaccine Quad .5 mL IM 6+ MO 2019-02-09 00:00:00 Completed [facility] Influenza Virus Vaccine Quad .5 mL IM 6+ MO 2019-02-09 00:00:00 Completed [facility] Influenza Virus Vaccine Quad .5 mL IM 6+ MO 2019-02-09 00:00:00 Completed [facility] Influenza Virus Vaccine Quad .5 mL IM 6+ MO 2019-02-09 00:00:00 Completed [facility] Influenza Virus Vaccine Quad .5 mL IM 6+ MO 2019-02-09 00:00:00 Completed [facility] Influenza Virus Vaccine Quad .5 mL IM 6+ MO 2019-02-09 00:00:00 Completed [facility] Influenza Virus Vaccine Quad .5 mL IM 6+ MO 2019-02-09 00:00:00 Completed [facility] Influenza Virus Vaccine Quad .5 mL IM 6+ MO 2019-02-09 00:00:00 Completed [facility] Influenza Virus Vaccine Quad .5 mL IM 6+ MO 2019-02-09 00:00:00 Completed [facility] Influenza Virus Vaccine Quad .5 mL IM 6+ MO 2019-02-09 00:00:00 Completed [facility] Influenza Virus Vaccine Quad .5 mL IM 6+ MO 2019-02-09 00:00:00 Completed [facility] Influenza Virus Vaccine Quad .5 mL IM 6+ MO 2019-02-09 00:00:00 Completed [facility] Influenza Virus Vaccine Quad .5 mL IM 6+ MO 2019-02-09 00:00:00 Completed [facility] Influenza Virus Vaccine Quad .5 mL IM 6+ MO 2019-02-09 00:00:00 Completed [facility] Influenza Virus Vaccine Quad .5 mL IM 6+ MO 2019-02-09 00:00:00 Completed [facility] Influenza Virus Vaccine Quad .5 mL IM 6+ MO (FLUZONE/FLULAVAL/F LUARIX) 2019-02-09 00:00:00 Completed [facility] Influenza Virus Vaccine Quad .5 mL IM 6+ MO (FLUZONE/FLULAVAL/F LUARIX) 2019-02-09 00:00:00 Completed [facility] Influenza High Dose 2018-03-29 00:00:00 Completed [facility] Influenza High Dose 2018-03-29 00:00:00 Completed [facility] Influenza High Dose 2018-03-29 00:00:00 Completed [facility] Influenza High Dose 2018-03-29 00:00:00 Completed [facility] Influenza High Dose 2018-03-29 00:00:00 Completed [facility] Influenza High Dose 2018-03-29 00:00:00 Completed [facility] Influenza High Dose 2018-03-29 00:00:00 Completed [facility] Influenza High Dose 2018-03-29 00:00:00 Completed [facility] Influenza High Dose 2018-03-29 00:00:00 Completed [facility] Influenza High Dose 2018-03-29 00:00:00 Completed [facility] Influenza High Dose 2018-03-29 00:00:00 Completed [facility] Influenza High Dose 2018-03-29 00:00:00 Completed [facility] Influenza High Dose 2018-03-29 00:00:00 Completed [facility] Influenza High Dose 2018-03-29 00:00:00 Completed [facility] Influenza High Dose 2018-03-29 00:00:00 Completed [facility] Influenza High Dose 2018-03-29 00:00:00 Completed [facility] Influenza High Dose 2018-03-29 00:00:00 Completed [facility] Influenza High Dose 2018-03-29 00:00:00 Completed [facility] Influenza High Dose 2018-03-29 00:00:00 Completed [facility] Influenza High Dose 2018-03-29 00:00:00 Completed [facility] Influenza High Dose 2018-03-29 00:00:00 Completed [facility] Influenza High Dose 2018-03-29 00:00:00 Completed [facility] Influenza High Dose 2018-03-29 00:00:00 Completed [facility] Influenza High Dose 2018-03-29 00:00:00 Completed [facility] Influenza High Dose 2018-03-29 00:00:00 Completed [facility] Influenza High Dose 2018-03-29 00:00:00 Completed [facility] Influenza High Dose 2018-03-29 00:00:00 Completed [facility] Influenza High Dose 2018-03-29 00:00:00 Completed [facility] Influenza High Dose 2018-03-29 00:00:00 Completed [facility] Influenza High Dose 2018-03-29 00:00:00 Completed [facility] Influenza High Dose 2018-03-29 00:00:00 Completed [facility] Influenza High Dose 2018-03-29 00:00:00 Completed [facility] Influenza High Dose 2018-03-29 00:00:00 Completed [facility] Influenza High Dose 2018-03-29 00:00:00 Completed [facility] Influenza High Dose 2018-03-29 00:00:00 Completed [facility] Influenza High Dose 2018-03-29 00:00:00 Completed [facility] Influenza High Dose 2018-03-29 00:00:00 Completed [facility] Influenza High Dose 2018-03-29 00:00:00 Completed [facility] Influenza High Dose 2018-03-29 00:00:00 Completed [facility] Influenza High Dose 2018-03-29 00:00:00 Completed [facility] Influenza High Dose 2018-03-29 00:00:00 Completed [facility] Influenza High Dose 2018-03-29 00:00:00 Completed [facility] Influenza High Dose 2018-03-29 00:00:00 Completed [facility] Influenza High Dose 2018-03-29 00:00:00 Completed [facility] Influenza High Dose 2018-03-29 00:00:00 Completed [facility] Influenza High Dose 2018-03-29 00:00:00 Completed [facility] Influenza High Dose 2018-03-29 00:00:00 Completed [facility] Influenza High Dose 2018-03-29 00:00:00 Completed [facility] Influenza High Dose 2018-03-29 00:00:00 Completed [facility] Influenza High Dose 2018-03-29 00:00:00 Completed [facility] Influenza High Dose 2018-03-29 00:00:00 Completed [facility] Influenza High Dose 2018-03-29 00:00:00 Completed [facility] Influenza High Dose 2018-03-29 00:00:00 Completed [facility] Influenza High Dose 2018-03-29 00:00:00 Completed [facility] Influenza High Dose 2018-03-29 00:00:00 Completed [facility] Influenza High Dose 2018-03-29 00:00:00 Completed [facility] Influenza High Dose 2018-03-29 00:00:00 Completed [facility] Influenza High Dose 2018-03-29 00:00:00 Completed [facility] Influenza High Dose 2018-03-29 00:00:00 Completed [facility] Influenza High Dose 2018-03-29 00:00:00 Completed [facility] Influenza High Dose 2018-03-29 00:00:00 Completed [facility] Influenza High Dose 2018-03-29 00:00:00 Completed [facility] Influenza High Dose 2018-03-29 00:00:00 Completed [facility] Influenza High Dose 2018-03-29 00:00:00 Completed [facility] Influenza High Dose 2018-03-29 00:00:00 Completed [facility] Influenza High Dose 2018-03-29 00:00:00 Completed [facility] Influenza High Dose 2018-03-29 00:00:00 Completed [facility] Influenza High Dose 2018-03-29 00:00:00 Completed [facility] Influenza High Dose 2018-03-29 00:00:00 Completed [facility] Influenza High Dose 2018-03-29 00:00:00 Completed [facility] Influenza High Dose 2018-03-29 00:00:00 Completed [facility] Influenza High Dose 2018-03-29 00:00:00 Completed [facility] Influenza High Dose 2018-03-29 00:00:00 Completed [facility] Influenza High Dose 2018-03-29 00:00:00 Completed [facility] Influenza High Dose 2018-03-29 00:00:00 Completed [facility] Influenza High Dose 2018-03-29 00:00:00 Completed [facility] Influenza High Dose 2018-03-29 00:00:00 Completed [facility] Influenza High Dose 2018-03-29 00:00:00 Completed [facility] Influenza High Dose 2018-03-29 00:00:00 Completed [facility] Influenza High Dose 2018-03-29 00:00:00 Completed [facility] Influenza High Dose 2018-03-29 00:00:00 Completed [facility] Influenza High Dose 2018-03-29 00:00:00 Completed [facility] Influenza High Dose 2018-03-29 00:00:00 Completed [facility] Influenza High Dose 2018-03-29 00:00:00 Completed [facility] Influenza High Dose 2018-03-29 00:00:00 Completed [facility] Influenza High Dose 2018-03-29 00:00:00 Completed [facility] Influenza High Dose 2018-03-29 00:00:00 Completed [facility] Influenza High Dose 2017-04-07 00:00:00 Completed [facility] Influenza High Dose 2017-04-07 00:00:00 Completed [facility] Influenza High Dose 2017-04-07 00:00:00 Completed [facility] Influenza High Dose 2017-04-07 00:00:00 Completed [facility] Influenza High Dose 2017-04-07 00:00:00 Completed [facility] Influenza High Dose 2017-04-07 00:00:00 Completed [facility] Influenza High Dose 2017-04-07 00:00:00 Completed [facility] Influenza High Dose 2017-04-07 00:00:00 Completed [facility] Influenza High Dose 2017-04-07 00:00:00 Completed [facility] Influenza High Dose 2017-04-07 00:00:00 Completed [facility] Influenza High Dose 2017-04-07 00:00:00 Completed [facility] Influenza High Dose 2017-04-07 00:00:00 Completed [facility] Influenza High Dose 2017-04-07 00:00:00 Completed [facility] Influenza High Dose 2017-04-07 00:00:00 Completed [facility] Influenza High Dose 2017-04-07 00:00:00 Completed [facility] Influenza High Dose 2017-04-07 00:00:00 Completed [facility] Influenza High Dose 2017-04-07 00:00:00 Completed [facility] Influenza High Dose 2017-04-07 00:00:00 Completed [facility] Influenza High Dose 2017-04-07 00:00:00 Completed [facility] Influenza High Dose 2017-04-07 00:00:00 Completed [facility] Influenza High Dose 2017-04-07 00:00:00 Completed [facility] Influenza High Dose 2017-04-07 00:00:00 Completed [facility] Influenza High Dose 2017-04-07 00:00:00 Completed [facility] Influenza High Dose 2017-04-07 00:00:00 Completed [facility] Influenza High Dose 2017-04-07 00:00:00 Completed [facility] Influenza High Dose 2017-04-07 00:00:00 Completed [facility] Influenza High Dose 2017-04-07 00:00:00 Completed [facility] Influenza High Dose 2017-04-07 00:00:00 Completed [facility] Influenza High Dose 2017-04-07 00:00:00 Completed [facility] Influenza High Dose 2017-04-07 00:00:00 Completed [facility] Influenza High Dose 2017-04-07 00:00:00 Completed [facility] Influenza High Dose 2017-04-07 00:00:00 Completed [facility] Influenza High Dose 2017-04-07 00:00:00 Completed [facility] Influenza High Dose 2017-04-07 00:00:00 Completed [facility] Influenza High Dose 2017-04-07 00:00:00 Completed [facility] Influenza High Dose 2017-04-07 00:00:00 Completed [facility] Influenza High Dose 2017-04-07 00:00:00 Completed [facility] Influenza High Dose 2017-04-07 00:00:00 Completed [facility] Influenza High Dose 2017-04-07 00:00:00 Completed [facility] Influenza High Dose 2017-04-07 00:00:00 Completed [facility] Influenza High Dose 2017-04-07 00:00:00 Completed [facility] Influenza High Dose 2017-04-07 00:00:00 Completed [facility] Influenza High Dose 2017-04-07 00:00:00 Completed [facility] Influenza High Dose 2017-04-07 00:00:00 Completed [facility] Influenza High Dose 2017-04-07 00:00:00 Completed [facility] Influenza High Dose 2017-04-07 00:00:00 Completed [facility] Influenza High Dose 2017-04-07 00:00:00 Completed [facility] Influenza High Dose 2017-04-07 00:00:00 Completed [facility] Influenza High Dose 2017-04-07 00:00:00 Completed [facility] Influenza High Dose 2017-04-07 00:00:00 Completed [facility] Influenza High Dose 2017-04-07 00:00:00 Completed [facility] Influenza High Dose 2017-04-07 00:00:00 Completed [facility] Influenza High Dose 2017-04-07 00:00:00 Completed [facility] Influenza High Dose 2017-04-07 00:00:00 Completed [facility] Influenza High Dose 2017-04-07 00:00:00 Completed [facility] Influenza High Dose 2017-04-07 00:00:00 Completed [facility] Influenza High Dose 2017-04-07 00:00:00 Completed [facility] Influenza High Dose 2017-04-07 00:00:00 Completed [facility] Influenza High Dose 2017-04-07 00:00:00 Completed [facility] Influenza High Dose 2017-04-07 00:00:00 Completed [facility] Influenza High Dose 2017-04-07 00:00:00 Completed [facility] Influenza High Dose 2017-04-07 00:00:00 Completed [facility] Influenza High Dose 2017-04-07 00:00:00 Completed [facility] Influenza High Dose 2017-04-07 00:00:00 Completed [facility] Influenza High Dose 2017-04-07 00:00:00 Completed [facility] Influenza High Dose 2017-04-07 00:00:00 Completed [facility] Influenza High Dose 2017-04-07 00:00:00 Completed [facility] Influenza High Dose 2017-04-07 00:00:00 Completed [facility] Influenza High Dose 2017-04-07 00:00:00 Completed [facility] Influenza High Dose 2017-04-07 00:00:00 Completed [facility] Influenza High Dose 2017-04-07 00:00:00 Completed [facility] Influenza High Dose 2017-04-07 00:00:00 Completed [facility] Influenza High Dose 2017-04-07 00:00:00 Completed [facility] Influenza High Dose 2017-04-07 00:00:00 Completed [facility] Influenza High Dose 2017-04-07 00:00:00 Completed [facility] Influenza High Dose 2017-04-07 00:00:00 Completed [facility] Influenza High Dose 2017-04-07 00:00:00 Completed [facility] Influenza High Dose 2017-04-07 00:00:00 Completed [facility] Influenza High Dose 2017-04-07 00:00:00 Completed [facility] Influenza High Dose 2017-04-07 00:00:00 Completed [facility] Influenza High Dose 2017-04-07 00:00:00 Completed [facility] Influenza High Dose 2017-04-07 00:00:00 Completed [facility] Influenza High Dose 2017-04-07 00:00:00 Completed [facility] Influenza High Dose 2017-04-07 00:00:00 Completed [facility] Influenza High Dose 2017-04-07 00:00:00 Completed [facility] Influenza High Dose 2017-04-07 00:00:00 Completed [facility] Influenza High Dose 2017-04-07 00:00:00 Completed [facility] Influenza High Dose 2016-01-29 00:00:00 Completed [facility] Influenza High Dose 2016-01-29 00:00:00 Completed [facility] Influenza High Dose 2016-01-29 00:00:00 Completed [facility] Influenza High Dose 2016-01-29 00:00:00 Completed [facility] Influenza High Dose 2016-01-29 00:00:00 Completed [facility] Influenza High Dose 2016-01-29 00:00:00 Completed [facility] Influenza High Dose 2016-01-29 00:00:00 Completed [facility] Influenza High Dose 2016-01-29 00:00:00 Completed [facility] Influenza High Dose 2016-01-29 00:00:00 Completed [facility] Influenza High Dose 2016-01-29 00:00:00 Completed [facility] Influenza High Dose 2016-01-29 00:00:00 Completed [facility] Influenza High Dose 2016-01-29 00:00:00 Completed [facility] Influenza High Dose 2016-01-29 00:00:00 Completed [facility] Influenza High Dose 2016-01-29 00:00:00 Completed [facility] Influenza High Dose 2016-01-29 00:00:00 Completed [facility] Influenza High Dose 2016-01-29 00:00:00 Completed [facility] Influenza High Dose 2016-01-29 00:00:00 Completed [facility] Influenza High Dose 2016-01-29 00:00:00 Completed [facility] Influenza High Dose 2016-01-29 00:00:00 Completed [facility] Influenza High Dose 2016-01-29 00:00:00 Completed [facility] Influenza High Dose 2016-01-29 00:00:00 Completed [facility] Influenza High Dose 2016-01-29 00:00:00 Completed [facility] Influenza High Dose 2016-01-29 00:00:00 Completed [facility] Influenza High Dose 2016-01-29 00:00:00 Completed [facility] Influenza High Dose 2016-01-29 00:00:00 Completed [facility] Influenza High Dose 2016-01-29 00:00:00 Completed [facility] Influenza High Dose 2016-01-29 00:00:00 Completed [facility] Influenza High Dose 2016-01-29 00:00:00 Completed [facility] Influenza High Dose 2016-01-29 00:00:00 Completed [facility] Influenza High Dose 2016-01-29 00:00:00 Completed [facility] Influenza High Dose 2016-01-29 00:00:00 Completed [facility] Influenza High Dose 2016-01-29 00:00:00 Completed [facility] Influenza High Dose 2016-01-29 00:00:00 Completed [facility] Influenza High Dose 2016-01-29 00:00:00 Completed [facility] Influenza High Dose 2016-01-29 00:00:00 Completed [facility] Influenza High Dose 2016-01-29 00:00:00 Completed [facility] Influenza High Dose 2016-01-29 00:00:00 Completed [facility] Influenza High Dose 2016-01-29 00:00:00 Completed [facility] Influenza High Dose 2016-01-29 00:00:00 Completed [facility] Influenza High Dose 2016-01-29 00:00:00 Completed [facility] Influenza High Dose 2016-01-29 00:00:00 Completed [facility] Influenza High Dose 2016-01-29 00:00:00 Completed [facility] Influenza High Dose 2016-01-29 00:00:00 Completed [facility] Influenza High Dose 2016-01-29 00:00:00 Completed [facility] Influenza High Dose 2016-01-29 00:00:00 Completed [facility] Influenza High Dose 2016-01-29 00:00:00 Completed [facility] Influenza High Dose 2016-01-29 00:00:00 Completed [facility] Influenza High Dose 2016-01-29 00:00:00 Completed [facility] Influenza High Dose 2016-01-29 00:00:00 Completed [facility] Influenza High Dose 2016-01-29 00:00:00 Completed [facility] Influenza High Dose 2016-01-29 00:00:00 Completed [facility] Influenza High Dose 2016-01-29 00:00:00 Completed [facility] Influenza High Dose 2016-01-29 00:00:00 Completed [facility] Influenza High Dose 2016-01-29 00:00:00 Completed [facility] Influenza High Dose 2016-01-29 00:00:00 Completed [facility] Influenza High Dose 2016-01-29 00:00:00 Completed [facility] Influenza High Dose 2016-01-29 00:00:00 Completed [facility] Influenza High Dose 2016-01-29 00:00:00 Completed [facility] Influenza High Dose 2016-01-29 00:00:00 Completed [facility] Influenza High Dose 2016-01-29 00:00:00 Completed [facility] Influenza High Dose 2016-01-29 00:00:00 Completed [facility] Influenza High Dose 2016-01-29 00:00:00 Completed [facility] Influenza High Dose 2016-01-29 00:00:00 Completed [facility] Influenza High Dose 2016-01-29 00:00:00 Completed [facility] Influenza High Dose 2016-01-29 00:00:00 Completed [facility] Influenza High Dose 2016-01-29 00:00:00 Completed [facility] Influenza High Dose 2016-01-29 00:00:00 Completed [facility] Influenza High Dose 2016-01-29 00:00:00 Completed [facility] Influenza High Dose 2016-01-29 00:00:00 Completed [facility] Influenza High Dose 2016-01-29 00:00:00 Completed [facility] Influenza High Dose 2016-01-29 00:00:00 Completed [facility] Influenza High Dose 2016-01-29 00:00:00 Completed [facility] Influenza High Dose 2016-01-29 00:00:00 Completed [facility] Influenza High Dose 2016-01-29 00:00:00 Completed [facility] Influenza High Dose 2016-01-29 00:00:00 Completed [facility] Influenza High Dose 2016-01-29 00:00:00 Completed [facility] Influenza High Dose 2016-01-29 00:00:00 Completed [facility] Influenza High Dose 2016-01-29 00:00:00 Completed [facility] Influenza High Dose 2016-01-29 00:00:00 Completed [facility] Influenza High Dose 2016-01-29 00:00:00 Completed [facility] Influenza High Dose 2016-01-29 00:00:00 Completed [facility] Influenza High Dose 2016-01-29 00:00:00 Completed [facility] Influenza High Dose 2016-01-29 00:00:00 Completed [facility] Influenza High Dose 2016-01-29 00:00:00 Completed [facility] Influenza High Dose 2016-01-29 00:00:00 Completed [facility] Influenza High Dose 2016-01-29 00:00:00 Completed [facility] Influenza High Dose 2016-01-29 00:00:00 Completed [facility] Influenza High Dose 2015-02-06 00:00:00 Completed [facility] Influenza High Dose 2015-02-06 00:00:00 Completed [facility] Influenza High Dose 2015-02-06 00:00:00 Completed [facility] Influenza High Dose 2015-02-06 00:00:00 Completed [facility] Influenza High Dose 2015-02-06 00:00:00 Completed [facility] Influenza High Dose 2015-02-06 00:00:00 Completed [facility] Influenza High Dose 2015-02-06 00:00:00 Completed [facility] Influenza High Dose 2015-02-06 00:00:00 Completed [facility] Influenza High Dose 2015-02-06 00:00:00 Completed [facility] Influenza High Dose 2015-02-06 00:00:00 Completed [facility] Influenza High Dose 2015-02-06 00:00:00 Completed [facility] Influenza High Dose 2015-02-06 00:00:00 Completed [facility] Influenza High Dose 2015-02-06 00:00:00 Completed [facility] Influenza High Dose 2015-02-06 00:00:00 Completed [facility] Influenza High Dose 2015-02-06 00:00:00 Completed [facility] Influenza High Dose 2015-02-06 00:00:00 Completed [facility] Influenza High Dose 2015-02-06 00:00:00 Completed [facility] Influenza High Dose 2015-02-06 00:00:00 Completed [facility] Influenza High Dose 2015-02-06 00:00:00 Completed [facility] Influenza High Dose 2015-02-06 00:00:00 Completed [facility] Influenza High Dose 2015-02-06 00:00:00 Completed [facility] Influenza High Dose 2015-02-06 00:00:00 Completed [facility] Influenza High Dose 2015-02-06 00:00:00 Completed [facility] Influenza High Dose 2015-02-06 00:00:00 Completed [facility] Influenza High Dose 2015-02-06 00:00:00 Completed [facility] Influenza High Dose 2015-02-06 00:00:00 Completed [facility] Influenza High Dose 2015-02-06 00:00:00 Completed [facility] Influenza High Dose 2015-02-06 00:00:00 Completed [facility] Influenza High Dose 2015-02-06 00:00:00 Completed [facility] Influenza High Dose 2015-02-06 00:00:00 Completed [facility] Influenza High Dose 2015-02-06 00:00:00 Completed [facility] Influenza High Dose 2015-02-06 00:00:00 Completed [facility] Influenza High Dose 2015-02-06 00:00:00 Completed [facility] Influenza High Dose 2015-02-06 00:00:00 Completed [facility] Influenza High Dose 2015-02-06 00:00:00 Completed [facility] Influenza High Dose 2015-02-06 00:00:00 Completed [facility] Influenza High Dose 2015-02-06 00:00:00 Completed [facility] Influenza High Dose 2015-02-06 00:00:00 Completed [facility] Influenza High Dose 2015-02-06 00:00:00 Completed [facility] Influenza High Dose 2015-02-06 00:00:00 Completed [facility] Influenza High Dose 2015-02-06 00:00:00 Completed [facility] Influenza High Dose 2015-02-06 00:00:00 Completed [facility] Influenza High Dose 2015-02-06 00:00:00 Completed [facility] Influenza High Dose 2015-02-06 00:00:00 Completed [facility] Influenza High Dose 2015-02-06 00:00:00 Completed [facility] Influenza High Dose 2015-02-06 00:00:00 Completed [facility] Influenza High Dose 2015-02-06 00:00:00 Completed [facility] Influenza High Dose 2015-02-06 00:00:00 Completed [facility] Influenza High Dose 2015-02-06 00:00:00 Completed [facility] Influenza High Dose 2015-02-06 00:00:00 Completed [facility] Influenza High Dose 2015-02-06 00:00:00 Completed [facility] Influenza High Dose 2015-02-06 00:00:00 Completed [facility] Influenza High Dose 2015-02-06 00:00:00 Completed [facility] Influenza High Dose 2015-02-06 00:00:00 Completed [facility] Influenza High Dose 2015-02-06 00:00:00 Completed [facility] Influenza High Dose 2015-02-06 00:00:00 Completed [facility] Influenza High Dose 2015-02-06 00:00:00 Completed [facility] Influenza High Dose 2015-02-06 00:00:00 Completed [facility] Influenza High Dose 2015-02-06 00:00:00 Completed [facility] Influenza High Dose 2015-02-06 00:00:00 Completed [facility] Influenza High Dose 2015-02-06 00:00:00 Completed [facility] Influenza High Dose 2015-02-06 00:00:00 Completed [facility] Influenza High Dose 2015-02-06 00:00:00 Completed [facility] Influenza High Dose 2015-02-06 00:00:00 Completed [facility] Influenza High Dose 2015-02-06 00:00:00 Completed [facility] Influenza High Dose 2015-02-06 00:00:00 Completed [facility] Influenza High Dose 2015-02-06 00:00:00 Completed [facility] Influenza High Dose 2015-02-06 00:00:00 Completed [facility] Influenza High Dose 2015-02-06 00:00:00 Completed [facility] Influenza High Dose 2015-02-06 00:00:00 Completed [facility] Influenza High Dose 2015-02-06 00:00:00 Completed [facility] Influenza High Dose 2015-02-06 00:00:00 Completed [facility] Influenza High Dose 2015-02-06 00:00:00 Completed [facility] Influenza High Dose 2015-02-06 00:00:00 Completed [facility] Influenza High Dose 2015-02-06 00:00:00 Completed [facility] Influenza High Dose 2015-02-06 00:00:00 Completed [facility] Influenza High Dose 2015-02-06 00:00:00 Completed [facility] Influenza High Dose 2015-02-06 00:00:00 Completed [facility] Influenza High Dose 2015-02-06 00:00:00 Completed [facility] Influenza High Dose 2015-02-06 00:00:00 Completed [facility] Influenza High Dose 2015-02-06 00:00:00 Completed [facility] Influenza High Dose 2015-02-06 00:00:00 Completed [facility] Influenza High Dose 2015-02-06 00:00:00 Completed [facility] Influenza High Dose 2015-02-06 00:00:00 Completed [facility] Influenza High Dose 2015-02-06 00:00:00 Completed [facility] Influenza High Dose 2015-02-06 00:00:00 Completed [facility] Influenza High Dose 2015-02-06 00:00:00 Completed [facility] Influenza Virus Vaccine Quad IM 3+ YRS 2015-01-16 00:00:00 Completed [facility] Influenza Virus Vaccine Quad IM 3+ YRS 2015-01-16 00:00:00 Completed [facility] Influenza Virus Vaccine Quad IM 3+ YRS 2015-01-16 00:00:00 Completed [facility] Influenza Virus Vaccine Quad IM 3+ YRS 2015-01-16 00:00:00 Completed [facility] Influenza Virus Vaccine Quad IM 3+ YRS 2015-01-16 00:00:00 Completed [facility] Influenza Virus Vaccine Quad IM 3+ YRS 2015-01-16 00:00:00 Completed [facility] Influenza Virus Vaccine Quad IM 3+ YRS 2015-01-16 00:00:00 Completed [facility] Influenza Virus Vaccine Quad IM 3+ YRS 2015-01-16 00:00:00 Completed [facility] Influenza Virus Vaccine Quad IM 3+ YRS 2015-01-16 00:00:00 Completed [facility] Influenza Virus Vaccine Quad IM 3+ YRS 2015-01-16 00:00:00 Completed [facility] Influenza Virus Vaccine Quad IM 3+ YRS 2015-01-16 00:00:00 Completed [facility] Influenza Virus Vaccine Quad IM 3+ YRS 2015-01-16 00:00:00 Completed [facility] Influenza Virus Vaccine Quad IM 3+ YRS 2015-01-16 00:00:00 Completed [facility] Influenza Virus Vaccine Quad IM 3+ YRS 2015-01-16 00:00:00 Completed [facility] Influenza Virus Vaccine Quad IM 3+ YRS 2015-01-16 00:00:00 Completed [facility] Influenza Virus Vaccine Quad IM 3+ YRS 2015-01-16 00:00:00 Completed [facility] Influenza Virus Vaccine Quad IM 3+ YRS 2015-01-16 00:00:00 Completed [facility] Influenza Virus Vaccine Quad IM 3+ YRS 2015-01-16 00:00:00 Completed [facility] Influenza Virus Vaccine Quad IM 3+ YRS 2015-01-16 00:00:00 Completed [facility] Influenza Virus Vaccine Quad IM 3+ YRS 2015-01-16 00:00:00 Completed [facility] Influenza Virus Vaccine Quad IM 3+ YRS 2015-01-16 00:00:00 Completed [facility] Influenza Virus Vaccine Quad IM 3+ YRS 2015-01-16 00:00:00 Completed [facility] Influenza Virus Vaccine Quad IM 3+ YRS 2015-01-16 00:00:00 Completed [facility] Influenza Virus Vaccine Quad IM 3+ YRS 2015-01-16 00:00:00 Completed [facility] Influenza Virus Vaccine Quad IM 3+ YRS 2015-01-16 00:00:00 Completed [facility] Influenza Virus Vaccine Quad IM 3+ YRS 2015-01-16 00:00:00 Completed [facility] Influenza Virus Vaccine Quad IM 3+ YRS 2015-01-16 00:00:00 Completed [facility] Influenza Virus Vaccine Quad IM 3+ YRS 2015-01-16 00:00:00 Completed [facility] Influenza Virus Vaccine Quad IM 3+ YRS 2015-01-16 00:00:00 Completed [facility] Influenza Virus Vaccine Quad IM 3+ YRS 2015-01-16 00:00:00 Completed [facility] Influenza Virus Vaccine Quad IM 3+ YRS 2015-01-16 00:00:00 Completed [facility] Influenza Virus Vaccine Quad IM 3+ YRS 2015-01-16 00:00:00 Completed [facility] Influenza Virus Vaccine Quad IM 3+ YRS 2015-01-16 00:00:00 Completed [facility] Influenza Virus Vaccine Quad IM 3+ YRS 2015-01-16 00:00:00 Completed [facility] Influenza Virus Vaccine Quad IM 3+ YRS 2015-01-16 00:00:00 Completed [facility] Influenza Virus Vaccine Quad IM 3+ YRS 2015-01-16 00:00:00 Completed [facility] Influenza Virus Vaccine Quad IM 3+ YRS 2015-01-16 00:00:00 Completed [facility] Influenza Virus Vaccine Quad IM 3+ YRS 2015-01-16 00:00:00 Completed [facility] Influenza Virus Vaccine Quad IM 3+ YRS 2015-01-16 00:00:00 Completed [facility] Influenza Virus Vaccine Quad IM 3+ YRS 2015-01-16 00:00:00 Completed [facility] Influenza Virus Vaccine Quad IM 3+ YRS 2015-01-16 00:00:00 Completed [facility] Influenza Virus Vaccine Quad IM 3+ YRS 2015-01-16 00:00:00 Completed [facility] Influenza Virus Vaccine Quad IM 3+ YRS 2015-01-16 00:00:00 Completed [facility] Influenza Virus Vaccine Quad IM 3+ YRS 2015-01-16 00:00:00 Completed [facility] Influenza Virus Vaccine Quad IM 3+ YRS 2015-01-16 00:00:00 Completed [facility] Influenza Virus Vaccine Quad IM 3+ YRS 2015-01-16 00:00:00 Completed [facility] Influenza Virus Vaccine Quad IM 3+ YRS 2015-01-16 00:00:00 Completed [facility] Influenza Virus Vaccine Quad IM 3+ YRS 2015-01-16 00:00:00 Completed [facility] Influenza Virus Vaccine Quad IM 3+ YRS 2015-01-16 00:00:00 Completed [facility] Influenza Virus Vaccine Quad IM 3+ YRS 2015-01-16 00:00:00 Completed [facility] Influenza Virus Vaccine Quad IM 3+ YRS 2015-01-16 00:00:00 Completed [facility] Influenza Virus Vaccine Quad IM 3+ YRS 2015-01-16 00:00:00 Completed [facility] Influenza Virus Vaccine Quad IM 3+ YRS 2015-01-16 00:00:00 Completed [facility] Influenza Virus Vaccine Quad IM 3+ YRS 2015-01-16 00:00:00 Completed [facility] Influenza Virus Vaccine Quad IM 3+ YRS 2015-01-16 00:00:00 Completed [facility] Influenza Virus Vaccine Quad IM 3+ YRS 2015-01-16 00:00:00 Completed [facility] Influenza Virus Vaccine Quad IM 3+ YRS 2015-01-16 00:00:00 Completed [facility] Influenza Virus Vaccine Quad IM 3+ YRS 2015-01-16 00:00:00 Completed [facility] Influenza Virus Vaccine Quad IM 3+ YRS 2015-01-16 00:00:00 Completed [facility] Influenza Virus Vaccine Quad IM 3+ YRS 2015-01-16 00:00:00 Completed [facility] Influenza Virus Vaccine Quad IM 3+ YRS 2015-01-16 00:00:00 Completed [facility] Influenza Virus Vaccine Quad IM 3+ YRS 2015-01-16 00:00:00 Completed [facility] Influenza Virus Vaccine Quad IM 3+ YRS 2015-01-16 00:00:00 Completed [facility] Influenza Virus Vaccine Quad IM 3+ YRS 2015-01-16 00:00:00 Completed [facility] Influenza Virus Vaccine Quad IM 3+ YRS 2015-01-16 00:00:00 Completed [facility] Influenza Virus Vaccine Quad IM 3+ YRS 2015-01-16 00:00:00 Completed [facility] Influenza Virus Vaccine Quad IM 3+ YRS 2015-01-16 00:00:00 Completed [facility] Influenza Virus Vaccine Quad IM 3+ YRS 2015-01-16 00:00:00 Completed [facility] Influenza Virus Vaccine Quad IM 3+ YRS 2015-01-16 00:00:00 Completed [facility] Influenza Virus Vaccine Quad IM 3+ YRS 2015-01-16 00:00:00 Completed [facility] Influenza Virus Vaccine Quad IM 3+ YRS 2015-01-16 00:00:00 Completed [facility] Influenza Virus Vaccine Quad IM 3+ YRS 2015-01-16 00:00:00 Completed [facility] Influenza Virus Vaccine Quad IM 3+ YRS 2015-01-16 00:00:00 Completed [facility] Influenza Virus Vaccine Quad IM 3+ YRS 2015-01-16 00:00:00 Completed [facility] Influenza Virus Vaccine Quad IM 3+ YRS 2015-01-16 00:00:00 Completed [facility] Influenza Virus Vaccine Quad IM 3+ YRS 2015-01-16 00:00:00 Completed [facility] Influenza Virus Vaccine Quad IM 3+ YRS 2015-01-16 00:00:00 Completed [facility] Influenza Virus Vaccine Quad IM 3+ YRS 2015-01-16 00:00:00 Completed [facility] Influenza Virus Vaccine Quad IM 3+ YRS 2015-01-16 00:00:00 Completed [facility] Influenza Virus Vaccine Quad IM 3+ YRS 2015-01-16 00:00:00 Completed [facility] Influenza Virus Vaccine Quad IM 3+ YRS 2015-01-16 00:00:00 Completed [facility] Influenza Virus Vaccine Quad IM 3+ YRS 2015-01-16 00:00:00 Completed [facility] Influenza Virus Vaccine Quad IM 3+ YRS 2015-01-16 00:00:00 Completed [facility] Influenza Virus Vaccine Quad IM 3+ YRS 2015-01-16 00:00:00 Completed [facility] Influenza Virus Vaccine Quad IM 3+ YRS 2015-01-16 00:00:00 Completed [facility] Influenza Virus Vaccine Quad IM 3+ YRS 2015-01-16 00:00:00 Completed [facility] Influenza Virus Vaccine Quad IM 3+ YRS 2015-01-16 00:00:00 Completed [facility] Hep B, Adol or Pedi Dosage 2014-09-18 00:00:00 Completed [facility] Hep B, Adol or Pedi Dosage 2014-09-18 00:00:00 Completed [facility] Hep B, Adol or Pedi Dosage 2014-09-18 00:00:00 Completed [facility] Hep B, Adol or Pedi Dosage 2014-09-18 00:00:00 Completed [facility] Hep B, Adol or Pedi Dosage 2014-09-18 00:00:00 Completed [facility] Hep B, Adol or Pedi Dosage 2014-09-18 00:00:00 Completed [facility] Hep B, Adol or Pedi Dosage 2014-09-18 00:00:00 Completed [facility] Hep B, Adol or Pedi Dosage 2014-09-18 00:00:00 Completed [facility] Hep B, Adol or Pedi Dosage 2014-09-18 00:00:00 Completed [facility] Hep B, Adol or Pedi Dosage 2014-09-18 00:00:00 Completed [facility] Hep B, Adol or Pedi Dosage 2014-09-18 00:00:00 Completed [facility] Hep B, Adol or Pedi Dosage 2014-09-18 00:00:00 Completed [facility] Hep B, Adol or Pedi Dosage 2014-09-18 00:00:00 Completed [facility] Hep B, Adol or Pedi Dosage 2014-09-18 00:00:00 Completed [facility] Hep B, Adol or Pedi Dosage 2014-09-18 00:00:00 Completed [facility] Hep B, Adol or Pedi Dosage 2014-09-18 00:00:00 Completed [facility] Hep B, Adol or Pedi Dosage 2014-09-18 00:00:00 Completed [facility] Hep B, Adol or Pedi Dosage 2014-09-18 00:00:00 Completed [facility] Hep B, Adol or Pedi Dosage 2014-09-18 00:00:00 Completed [facility] Hep B, Adol or Pedi Dosage 2014-09-18 00:00:00 Completed [facility] Hep B, Adol or Pedi Dosage 2014-09-18 00:00:00 Completed [facility] Hep B, Adol or Pedi Dosage 2014-09-18 00:00:00 Completed [facility] Hep B, Adol or Pedi Dosage 2014-09-18 00:00:00 Completed [facility] Hep B, Adol or Pedi Dosage 2014-09-18 00:00:00 Completed [facility] Hep B, Adol or Pedi Dosage 2014-09-18 00:00:00 Completed [facility] Hep B, Adol or Pedi Dosage 2014-09-18 00:00:00 Completed [facility] Hep B, Adol or Pedi Dosage 2014-09-18 00:00:00 Completed [facility] Hep B, Adol or Pedi Dosage 2014-09-18 00:00:00 Completed [facility] Hep B, Adol or Pedi Dosage 2014-09-18 00:00:00 Completed [facility] Hep B, Adol or Pedi Dosage 2014-09-18 00:00:00 Completed [facility] Hep B, Adol or Pedi Dosage 2014-09-18 00:00:00 Completed [facility] Hep B, Adol or Pedi Dosage 2014-09-18 00:00:00 Completed [facility] Hep B, Adol or Pedi Dosage 2014-09-18 00:00:00 Completed [facility] Hep B, Adol or Pedi Dosage 2014-09-18 00:00:00 Completed [facility] Hep B, Adol or Pedi Dosage 2014-09-18 00:00:00 Completed [facility] Hep B, Adol or Pedi Dosage 2014-09-18 00:00:00 Completed [facility] Hep B, Adol or Pedi Dosage 2014-09-18 00:00:00 Completed [facility] Hep B, Adol or Pedi Dosage 2014-09-18 00:00:00 Completed [facility] Hep B, Adol or Pedi Dosage 2014-09-18 00:00:00 Completed [facility] Hep B, Adol or Pedi Dosage 2014-09-18 00:00:00 Completed [facility] Hep B, Adol or Pedi Dosage 2014-09-18 00:00:00 Completed [facility] Hep B, Adol or Pedi Dosage 2014-09-18 00:00:00 Completed [facility] Hep B, Adol or Pedi Dosage 2014-09-18 00:00:00 Completed [facility] Hep B, Adol or Pedi Dosage 2014-09-18 00:00:00 Completed [facility] Hep B, Adol or Pedi Dosage 2014-09-18 00:00:00 Completed [facility] Hep B, Adol or Pedi Dosage 2014-09-18 00:00:00 Completed [facility] Hep B, Adol or Pedi Dosage 2014-09-18 00:00:00 Completed [facility] Hep B, Adol or Pedi Dosage 2014-09-18 00:00:00 Completed [facility] Hep B, Adol or Pedi Dosage 2014-09-18 00:00:00 Completed [facility] Hep B, Adol or Pedi Dosage 2014-09-18 00:00:00 Completed [facility] Hep B, Adol or Pedi Dosage 2014-09-18 00:00:00 Completed [facility] Hep B, Adol or Pedi Dosage 2014-09-18 00:00:00 Completed [facility] Hep B, Adol or Pedi Dosage 2014-09-18 00:00:00 Completed [facility] Hep B, Adol or Pedi Dosage 2014-09-18 00:00:00 Completed [facility] Hep B, Adol or Pedi Dosage 2014-09-18 00:00:00 Completed [facility] Hep B, Adol or Pedi Dosage 2014-09-18 00:00:00 Completed [facility] Hep B, Adol or Pedi Dosage 2014-09-18 00:00:00 Completed [facility] Hep B, Adol or Pedi Dosage 2014-09-18 00:00:00 Completed [facility] Hep B, Adol or Pedi Dosage 2014-09-18 00:00:00 Completed [facility] Hep B, Adol or Pedi Dosage 2014-09-18 00:00:00 Completed [facility] Hep B, Adol or Pedi Dosage 2014-09-18 00:00:00 Completed [facility] Hep B, Adol or Pedi Dosage 2014-09-18 00:00:00 Completed [facility] Hep B, Adol or Pedi Dosage 2014-09-18 00:00:00 Completed [facility] Hep B, Adol or Pedi Dosage 2014-09-18 00:00:00 Completed [facility] Hep B, Adol or Pedi Dosage 2014-09-18 00:00:00 Completed [facility] Hep B, Adol or Pedi Dosage 2014-09-18 00:00:00 Completed [facility] Hep B, Adol or Pedi Dosage 2014-09-18 00:00:00 Completed [facility] Hep B, Adol or Pedi Dosage 2014-09-18 00:00:00 Completed [facility] Hep B, Adol or Pedi Dosage 2014-09-18 00:00:00 Completed [facility] Hep B, Adol or Pedi Dosage 2014-09-18 00:00:00 Completed [facility] Hep B, Adol or Pedi Dosage 2014-09-18 00:00:00 Completed [facility] Hep B, Adol or Pedi Dosage 2014-09-18 00:00:00 Completed [facility] Hep B, Adol or Pedi Dosage 2014-09-18 00:00:00 Completed [facility] Hep B, Adol or Pedi Dosage 2014-09-18 00:00:00 Completed [facility] Hep B, Adol or Pedi Dosage 2014-09-18 00:00:00 Completed [facility] Hep B, Adol or Pedi Dosage 2014-09-18 00:00:00 Completed [facility] Hep B, Adol or Pedi Dosage 2014-09-18 00:00:00 Completed [facility] Hep B, Adol or Pedi Dosage 2014-09-18 00:00:00 Completed [facility] Hep B, Adol or Pedi Dosage 2014-09-18 00:00:00 Completed [facility] Hep B, Adol or Pedi Dosage 2014-09-18 00:00:00 Completed [facility] Hep B, Adol or Pedi Dosage 2014-09-18 00:00:00 Completed [facility] Hep B, Adol or Pedi Dosage 2014-09-18 00:00:00 Completed [facility] Hep B, Adol or Pedi Dosage 2014-09-18 00:00:00 Completed [facility] Hep B, Adol or Pedi Dosage 2014-09-18 00:00:00 Completed [facility] Hep B, Adol or Pedi Dosage 2014-09-18 00:00:00 Completed [facility] Hep B, Adol or Pedi Dosage 2014-09-18 00:00:00 Completed [facility] Hep B, Adol or Pedi Dosage 2014-09-18 00:00:00 Completed [facility] Influenza Virus Vaccine 2011-02-05 00:00:00 Completed [facility] Influenza Virus Vaccine 2011-02-05 00:00:00 Completed [facility] Influenza Virus Vaccine 2011-02-05 00:00:00 Completed [facility] Influenza Virus Vaccine 2011-02-05 00:00:00 Completed [facility] Influenza Virus Vaccine 2011-02-05 00:00:00 Completed [facility] Influenza Virus Vaccine 2011-02-05 00:00:00 Completed [facility] Influenza Virus Vaccine 2011-02-05 00:00:00 Completed [facility] Influenza Virus Vaccine 2011-02-05 00:00:00 Completed [facility] Influenza Virus Vaccine 2011-02-05 00:00:00 Completed [facility] Influenza Virus Vaccine 2011-02-05 00:00:00 Completed [facility] Influenza Virus Vaccine 2011-02-05 00:00:00 Completed [facility] Influenza Virus Vaccine 2011-02-05 00:00:00 Completed [facility] Influenza Virus Vaccine 2011-02-05 00:00:00 Completed [facility] Influenza Virus Vaccine 2011-02-05 00:00:00 Completed [facility] Influenza Virus Vaccine 2011-02-05 00:00:00 Completed [facility] Influenza Virus Vaccine 2011-02-05 00:00:00 Completed [facility] Influenza Virus Vaccine 2011-02-05 00:00:00 Completed [facility] Influenza Virus Vaccine 2011-02-05 00:00:00 Completed [facility] Influenza Virus Vaccine 2011-02-05 00:00:00 Completed [facility] Influenza Virus Vaccine 2011-02-05 00:00:00 Completed [facility] Influenza Virus Vaccine 2011-02-05 00:00:00 Completed [facility] Influenza Virus Vaccine 2011-02-05 00:00:00 Completed [facility] Influenza Virus Vaccine 2011-02-05 00:00:00 Completed [facility] Influenza Virus Vaccine 2011-02-05 00:00:00 Completed [facility] Influenza Virus Vaccine 2011-02-05 00:00:00 Completed [facility] Influenza Virus Vaccine 2011-02-05 00:00:00 Completed [facility] Influenza Virus Vaccine 2011-02-05 00:00:00 Completed [facility] Influenza Virus Vaccine 2011-02-05 00:00:00 Completed [facility] Influenza Virus Vaccine 2011-02-05 00:00:00 Completed [facility] Influenza Virus Vaccine 2011-02-05 00:00:00 Completed [facility] Influenza Virus Vaccine 2011-02-05 00:00:00 Completed [facility] Influenza Virus Vaccine 2011-02-05 00:00:00 [facility] [facility] Virus Vaccine 2011-02-05 00:00:00 Completed [facility] Influenza Virus Vaccine 2011-02-05 00:00:00 Completed [facility] Influenza Virus Vaccine 2011-02-05 00:00:00 Completed [facility] Influenza Virus Vaccine 2011-02-05 00:00:00 Completed [facility] Influenza Virus Vaccine 2011-02-05 00:00:00 Completed [facility] Influenza Virus Vaccine 2011-02-05 00:00:00 Completed [facility] Influenza Virus Vaccine 2011-02-05 00:00:00 Completed [facility] Influenza Virus Vaccine 2011-02-05 00:00:00 Completed [facility] Influenza Virus Vaccine 2011-02-05 00:00:00 Completed [facility] Influenza Virus Vaccine 2011-02-05 00:00:00 Completed [facility] Influenza Virus Vaccine 2011-02-05 00:00:00 Completed [facility] Influenza Virus Vaccine 2011-02-05 00:00:00 Completed [facility] Influenza Virus Vaccine 2011-02-05 00:00:00 Completed [facility] Influenza Virus Vaccine 2011-02-05 00:00:00 Completed [facility] Influenza Virus Vaccine 2011-02-05 00:00:00 Completed [facility] Influenza Virus Vaccine 2011-02-05 00:00:00 Completed [facility] Influenza Virus Vaccine 2011-02-05 00:00:00 Completed [facility] Influenza Virus Vaccine 2011-02-05 00:00:00 Completed [facility] Influenza Virus Vaccine 2011-02-05 00:00:00 Completed [facility] Influenza Virus Vaccine 2011-02-05 00:00:00 Completed [facility] Influenza Virus Vaccine 2011-02-05 00:00:00 Completed [facility] Influenza Virus Vaccine 2011-02-05 00:00:00 Completed [facility] Influenza Virus Vaccine 2011-02-05 00:00:00 Completed [facility] Influenza Virus Vaccine 2011-02-05 00:00:00 Completed [facility] Influenza Virus Vaccine 2011-02-05 00:00:00 Completed [facility] Influenza Virus Vaccine 2011-02-05 00:00:00 Completed [facility] Influenza Virus Vaccine 2011-02-05 00:00:00 Completed [facility] Influenza Virus Vaccine 2011-02-05 00:00:00 Completed [facility] Influenza Virus Vaccine 2011-02-05 00:00:00 Completed [facility] Influenza Virus Vaccine 2011-02-05 00:00:00 Completed [facility] Influenza Virus Vaccine 2011-02-05 00:00:00 Completed [facility] Influenza Virus Vaccine 2011-02-05 00:00:00 Completed [facility] Influenza Virus Vaccine 2011-02-05 00:00:00 Completed [facility] Influenza Virus Vaccine 2011-02-05 00:00:00 Completed [facility] Influenza Virus Vaccine 2011-02-05 00:00:00 Completed [facility] Influenza Virus Vaccine 2011-02-05 00:00:00 Completed [facility] Influenza Virus Vaccine 2011-02-05 00:00:00 Completed [facility] Influenza Virus Vaccine 2011-02-05 00:00:00 Completed [facility] Influenza Virus Vaccine 2011-02-05 00:00:00 Completed [facility] Influenza Virus Vaccine 2011-02-05 00:00:00 Completed [facility] Influenza Virus Vaccine 2011-02-05 00:00:00 Completed [facility] Influenza Virus Vaccine 2011-02-05 00:00:00 Completed [facility] Influenza Virus Vaccine 2011-02-05 00:00:00 Completed [facility] Influenza Virus Vaccine 2011-02-05 00:00:00 Completed [facility] Influenza Virus Vaccine 2011-02-05 00:00:00 Completed [facility] Influenza Virus Vaccine 2011-02-05 00:00:00 Completed [facility] Influenza Virus Vaccine 2011-02-05 00:00:00 Completed [facility] Influenza Virus Vaccine 2011-02-05 00:00:00 Completed [facility] Influenza Virus Vaccine 2011-02-05 00:00:00 Completed [facility] Influenza Virus Vaccine 2011-02-05 00:00:00 Completed [facility] Influenza Virus Vaccine 2011-02-05 00:00:00 Completed [facility] Influenza Virus Vaccine 2011-02-05 00:00:00 Completed [facility] Influenza Virus Vaccine 2011-02-05 00:00:00 Completed [facility] Influenza Virus Vaccine 2011-02-05 00:00:00 Completed [facility] Influenza Virus Vaccine 2011-02-05 00:00:00 Completed [facility] Influenza Virus Vaccine 2010-04-10 00:00:00 Completed [facility] Influenza Virus Vaccine 2010-04-10 00:00:00 Completed [facility] Influenza Virus Vaccine 2010-04-10 00:00:00 Completed [facility] Influenza Virus Vaccine 2010-04-10 00:00:00 Completed [facility] Influenza Virus Vaccine 2010-04-10 00:00:00 Completed [facility] Influenza Virus Vaccine 2010-04-10 00:00:00 Completed [facility] Influenza Virus Vaccine 2010-04-10 00:00:00 Completed [facility] Influenza Virus Vaccine 2010-04-10 00:00:00 Completed [facility] Influenza Virus Vaccine 2010-04-10 00:00:00 Completed [facility] Influenza Virus Vaccine 2010-04-10 00:00:00 Completed [facility] Influenza Virus Vaccine 2010-04-10 00:00:00 Completed [facility] Influenza Virus Vaccine 2010-04-10 00:00:00 Completed [facility] Influenza Virus Vaccine 2010-04-10 00:00:00 Completed [facility] Influenza Virus Vaccine 2010-04-10 00:00:00 Completed [facility] Influenza Virus Vaccine 2010-04-10 00:00:00 Completed [facility] Influenza Virus Vaccine 2010-04-10 00:00:00 Completed [facility] Influenza Virus Vaccine 2010-04-10 00:00:00 Completed [facility] Influenza Virus Vaccine 2010-04-10 00:00:00 Completed [facility] Influenza Virus Vaccine 2010-04-10 00:00:00 Completed [facility] Influenza Virus Vaccine 2010-04-10 00:00:00 Completed [facility] Influenza Virus Vaccine 2010-04-10 00:00:00 Completed [facility] Influenza Virus Vaccine 2010-04-10 00:00:00 Completed [facility] Influenza Virus Vaccine 2010-04-10 00:00:00 Completed [facility] Influenza Virus Vaccine 2010-04-10 00:00:00 Completed [facility] Influenza Virus Vaccine 2010-04-10 00:00:00 Completed [facility] Influenza Virus Vaccine 2010-04-10 00:00:00 Completed [facility] Influenza Virus Vaccine 2010-04-10 00:00:00 Completed [facility] Influenza Virus Vaccine 2010-04-10 00:00:00 Completed [facility] Influenza Virus Vaccine 2010-04-10 00:00:00 Completed [facility] Influenza Virus Vaccine 2010-04-10 00:00:00 Completed [facility] Influenza Virus Vaccine 2010-04-10 00:00:00 Completed [facility] Influenza Virus Vaccine 2010-04-10 00:00:00 Completed [facility] Influenza Virus Vaccine 2010-04-10 00:00:00 Completed [facility] Influenza Virus Vaccine 2010-04-10 00:00:00 Completed [facility] Influenza Virus Vaccine 2010-04-10 00:00:00 Completed [facility] Influenza Virus Vaccine 2010-04-10 00:00:00 Completed [facility] Influenza Virus Vaccine 2010-04-10 00:00:00 Completed [facility] Influenza Virus Vaccine 2010-04-10 00:00:00 Completed [facility] Influenza Virus Vaccine 2010-04-10 00:00:00 Completed [facility] Influenza Virus Vaccine 2010-04-10 00:00:00 Completed [facility] Influenza Virus Vaccine 2010-04-10 00:00:00 Completed [facility] Influenza Virus Vaccine 2010-04-10 00:00:00 Completed [facility] Influenza Virus Vaccine 2010-04-10 00:00:00 Completed [facility] Influenza Virus Vaccine 2010-04-10 00:00:00 Completed [facility] Influenza Virus Vaccine 2010-04-10 00:00:00 Completed [facility] Influenza Virus Vaccine 2010-04-10 00:00:00 Completed [facility] Influenza Virus Vaccine 2010-04-10 00:00:00 Completed [facility] Influenza Virus Vaccine 2010-04-10 00:00:00 Completed [facility] Influenza Virus Vaccine 2010-04-10 00:00:00 Completed [facility] Influenza Virus Vaccine 2010-04-10 00:00:00 Completed [facility] Influenza Virus Vaccine 2010-04-10 00:00:00 Completed [facility] Influenza Virus Vaccine 2010-04-10 00:00:00 Completed [facility] Influenza Virus Vaccine 2010-04-10 00:00:00 Completed [facility] Influenza Virus Vaccine 2010-04-10 00:00:00 Completed [facility] Influenza Virus Vaccine 2010-04-10 00:00:00 Completed [facility] Influenza Virus Vaccine 2010-04-10 00:00:00 Completed [facility] Influenza Virus Vaccine 2010-04-10 00:00:00 Completed [facility] Influenza Virus Vaccine 2010-04-10 00:00:00 Completed [facility] Influenza Virus Vaccine 2010-04-10 00:00:00 Completed [facility] Influenza Virus Vaccine 2010-04-10 00:00:00 Completed [facility] Influenza Virus Vaccine 2010-04-10 00:00:00 Completed [facility] Influenza Virus Vaccine 2010-04-10 00:00:00 Completed [facility] Influenza Virus Vaccine 2010-04-10 00:00:00 Completed [facility] Influenza Virus Vaccine 2010-04-10 00:00:00 Completed [facility] Influenza Virus Vaccine 2010-04-10 00:00:00 Completed [facility] Influenza Virus Vaccine 2010-04-10 00:00:00 Completed [facility] Influenza Virus Vaccine 2010-04-10 00:00:00 Completed [facility] Influenza Virus Vaccine 2010-04-10 00:00:00 Completed [facility] Influenza Virus Vaccine 2010-04-10 00:00:00 Completed [facility] Influenza Virus Vaccine 2010-04-10 00:00:00 Completed [facility] Influenza Virus Vaccine 2010-04-10 00:00:00 Completed [facility] Influenza Virus Vaccine 2010-04-10 00:00:00 Completed [facility] Influenza Virus Vaccine 2010-04-10 00:00:00 Completed [facility] Influenza Virus Vaccine 2010-04-10 00:00:00 Completed [facility] Influenza Virus Vaccine 2010-04-10 00:00:00 Completed [facility] Influenza Virus Vaccine 2010-04-10 00:00:00 Completed [facility] Influenza Virus Vaccine 2010-04-10 00:00:00 Completed [facility] Influenza Virus Vaccine 2010-04-10 00:00:00 Completed [facility] Influenza Virus Vaccine 2010-04-10 00:00:00 Completed [facility] Influenza Virus Vaccine 2010-04-10 00:00:00 Completed [facility] Influenza Virus Vaccine 2010-04-10 00:00:00 Completed [facility] Influenza Virus Vaccine 2010-04-10 00:00:00 Completed [facility] Influenza Virus Vaccine 2010-04-10 00:00:00 Completed [facility] Influenza Virus Vaccine 2010-04-10 00:00:00 Completed [facility] Influenza Virus Vaccine 2010-04-10 00:00:00 Completed [facility] Influenza Virus Vaccine 2010-04-10 00:00:00 Completed [facility] Influenza Virus Vaccine 2010-04-10 00:00:00 Completed [facility] H1n1 Vaccine 2009-04-02 00:00:00 Completed [facility] H1n1 Vaccine 2009-04-02 00:00:00 Completed [facility] H1n1 Vaccine 2009-04-02 00:00:00 Completed [facility] H1n1 Vaccine 2009-04-02 00:00:00 Completed [facility] H1n1 Vaccine 2009-04-02 00:00:00 Completed [facility] H1n1 Vaccine 2009-04-02 00:00:00 Completed [facility] H1n1 Vaccine 2009-04-02 00:00:00 Completed [facility] H1n1 Vaccine 2009-04-02 00:00:00 Completed [facility] H1n1 Vaccine 2009-04-02 00:00:00 Completed [facility] H1n1 Vaccine 2009-04-02 00:00:00 Completed [facility] H1n1 Vaccine 2009-04-02 00:00:00 Completed [facility] H1n1 Vaccine 2009-04-02 00:00:00 Completed [facility] H1n1 Vaccine 2009-04-02 00:00:00 Completed [facility] H1n1 Vaccine 2009-04-02 00:00:00 Completed [facility] H1n1 Vaccine 2009-04-02 00:00:00 Completed [facility] H1n1 Vaccine 2009-04-02 00:00:00 Completed [facility] H1n1 Vaccine 2009-04-02 00:00:00 Completed [facility] H1n1 Vaccine 2009-04-02 00:00:00 Completed [facility] H1n1 Vaccine 2009-04-02 00:00:00 Completed [facility] H1n1 Vaccine 2009-04-02 00:00:00 Completed [facility] H1n1 Vaccine 2009-04-02 00:00:00 Completed [facility] H1n1 Vaccine 2009-04-02 00:00:00 Completed [facility] H1n1 Vaccine 2009-04-02 00:00:00 Completed [facility] H1n1 Vaccine 2009-04-02 00:00:00 Completed [facility] H1n1 Vaccine 2009-04-02 00:00:00 Completed [facility] H1n1 Vaccine 2009-04-02 00:00:00 Completed [facility] H1n1 Vaccine 2009-04-02 00:00:00 Completed [facility] H1n1 Vaccine 2009-04-02 00:00:00 Completed [facility] H1n1 Vaccine 2009-04-02 00:00:00 Completed [facility] H1n1 Vaccine 2009-04-02 00:00:00 Completed [facility] H1n1 Vaccine 2009-04-02 00:00:00 Completed [facility] H1n1 Vaccine 2009-04-02 00:00:00 Completed [facility] H1n1 Vaccine 2009-04-02 00:00:00 Completed [facility] H1n1 Vaccine 2009-04-02 00:00:00 Completed [facility] H1n1 Vaccine 2009-04-02 00:00:00 Completed [facility] H1n1 Vaccine 2009-04-02 00:00:00 Completed [facility] H1n1 Vaccine 2009-04-02 00:00:00 Completed [facility] H1n1 Vaccine 2009-04-02 00:00:00 Completed [facility] H1n1 Vaccine 2009-04-02 00:00:00 Completed [facility] H1n1 Vaccine 2009-04-02 00:00:00 Completed [facility] H1n1 Vaccine 2009-04-02 00:00:00 Completed [facility] H1n1 Vaccine 2009-04-02 00:00:00 Completed [facility] H1n1 Vaccine 2009-04-02 00:00:00 Completed [facility] H1n1 Vaccine 2009-04-02 00:00:00 Completed [facility] H1n1 Vaccine 2009-04-02 00:00:00 Completed [facility] H1n1 Vaccine 2009-04-02 00:00:00 Completed [facility] H1n1 Vaccine 2009-04-02 00:00:00 Completed [facility] H1n1 Vaccine 2009-04-02 00:00:00 Completed [facility] H1n1 Vaccine 2009-04-02 00:00:00 Completed [facility] H1n1 Vaccine 2009-04-02 00:00:00 Completed [facility] H1n1 Vaccine 2009-04-02 00:00:00 Completed [facility] H1n1 Vaccine 2009-04-02 00:00:00 Completed [facility] H1n1 Vaccine 2009-04-02 00:00:00 Completed [facility] H1n1 Vaccine 2009-04-02 00:00:00 Completed [facility] H1n1 Vaccine 2009-04-02 00:00:00 Completed [facility] H1n1 Vaccine 2009-04-02 00:00:00 Completed [facility] H1n1 Vaccine 2009-04-02 00:00:00 Completed [facility] H1n1 Vaccine 2009-04-02 00:00:00 Completed [facility] H1n1 Vaccine 2009-04-02 00:00:00 Completed [facility] H1n1 Vaccine 2009-04-02 00:00:00 Completed [facility] H1n1 Vaccine 2009-04-02 00:00:00 Completed [facility] H1n1 Vaccine 2009-04-02 00:00:00 Completed [facility] H1n1 Vaccine 2009-04-02 00:00:00 Completed [facility] H1n1 Vaccine 2009-04-02 00:00:00 Completed [facility] H1n1 Vaccine 2009-04-02 00:00:00 Completed [facility] H1n1 Vaccine 2009-04-02 00:00:00 Completed [facility] H1n1 Vaccine 2009-04-02 00:00:00 Completed [facility] H1n1 Vaccine 2009-04-02 00:00:00 Completed [facility] H1n1 Vaccine 2009-04-02 00:00:00 Completed [facility] H1n1 Vaccine 2009-04-02 00:00:00 Completed [facility] H1n1 Vaccine 2009-04-02 00:00:00 Completed [facility] H1n1 Vaccine 2009-04-02 00:00:00 Completed [facility] H1n1 Vaccine 2009-04-02 00:00:00 Completed [facility] H1n1 Vaccine 2009-04-02 00:00:00 Completed [facility] H1n1 Vaccine 2009-04-02 00:00:00 Completed [facility] H1n1 Vaccine 2009-04-02 00:00:00 Completed [facility] H1n1 Vaccine 2009-04-02 00:00:00 Completed [facility] H1n1 Vaccine 2009-04-02 00:00:00 Completed [facility] H1n1 Vaccine 2009-04-02 00:00:00 Completed [facility] H1n1 Vaccine 2009-04-02 00:00:00 Completed [facility] H1n1 Vaccine 2009-04-02 00:00:00 Completed [facility] H1n1 Vaccine 2009-04-02 00:00:00 Completed [facility] H1n1 Vaccine 2009-04-02 00:00:00 Completed [facility] H1n1 Vaccine 2009-04-02 00:00:00 Completed [facility] H1n1 Vaccine 2009-04-02 00:00:00 Completed [facility] H1n1 Vaccine 2009-04-02 00:00:00 Completed [facility] H1n1 Vaccine 2009-04-02 00:00:00 Completed [facility] Influenza Virus Vaccine 2009-02-14 00:00:00 Completed [facility] Influenza Virus Vaccine 2009-02-14 00:00:00 Completed [facility] Influenza Virus Vaccine 2009-02-14 00:00:00 Completed [facility] Influenza Virus Vaccine 2009-02-14 00:00:00 Completed [facility] Influenza Virus Vaccine 2009-02-14 00:00:00 Completed [facility] Influenza Virus Vaccine 2009-02-14 00:00:00 Completed [facility] Influenza Virus Vaccine 2009-02-14 00:00:00 Completed [facility] Influenza Virus Vaccine 2009-02-14 00:00:00 Completed [facility] Influenza Virus Vaccine 2009-02-14 00:00:00 Completed [facility] Influenza Virus Vaccine 2009-02-14 00:00:00 Completed [facility] Influenza Virus Vaccine 2009-02-14 00:00:00 Completed [facility] Influenza Virus Vaccine 2009-02-14 00:00:00 Completed [facility] Influenza Virus Vaccine 2009-02-14 00:00:00 Completed [facility] Influenza Virus Vaccine 2009-02-14 00:00:00 Completed [facility] Influenza Virus Vaccine 2009-02-14 00:00:00 Completed [facility] Influenza Virus Vaccine 2009-02-14 00:00:00 Completed [facility] Influenza Virus Vaccine 2009-02-14 00:00:00 Completed [facility] Influenza Virus Vaccine 2009-02-14 00:00:00 Completed [facility] Influenza Virus Vaccine 2009-02-14 00:00:00 Completed [facility] Influenza Virus Vaccine 2009-02-14 00:00:00 Completed [facility] Influenza Virus Vaccine 2009-02-14 00:00:00 Completed [facility] Influenza Virus Vaccine 2009-02-14 00:00:00 Completed [facility] Influenza Virus Vaccine 2009-02-14 00:00:00 Completed [facility] Influenza Virus Vaccine 2009-02-14 00:00:00 Completed [facility] Influenza Virus Vaccine 2009-02-14 00:00:00 Completed [facility] Influenza Virus Vaccine 2009-02-14 00:00:00 Completed [facility] Influenza Virus Vaccine 2009-02-14 00:00:00 Completed [facility] Influenza Virus Vaccine 2009-02-14 00:00:00 Completed [facility] Influenza Virus Vaccine 2009-02-14 00:00:00 Completed [facility] Influenza Virus Vaccine 2009-02-14 00:00:00 Completed [facility] Influenza Virus Vaccine 2009-02-14 00:00:00 Completed [facility] Influenza Virus Vaccine 2009-02-14 00:00:00 Completed [facility] Influenza Virus Vaccine 2009-02-14 00:00:00 Completed [facility] Influenza Virus Vaccine 2009-02-14 00:00:00 Completed [facility] Influenza Virus Vaccine 2009-02-14 00:00:00 Completed [facility] Influenza Virus Vaccine 2009-02-14 00:00:00 Completed [facility] Influenza Virus Vaccine 2009-02-14 00:00:00 Completed [facility] Influenza Virus Vaccine 2009-02-14 00:00:00 Completed [facility] Influenza Virus Vaccine 2009-02-14 00:00:00 Completed [facility] Influenza Virus Vaccine 2009-02-14 00:00:00 Completed [facility] Influenza Virus Vaccine 2009-02-14 00:00:00 Completed [facility] Influenza Virus Vaccine 2009-02-14 00:00:00 Completed [facility] Influenza Virus Vaccine 2009-02-14 00:00[facility]00 [facility] [facility] Vaccine 2009-02-14 00:00:00 Completed [facility] Influenza Virus Vaccine 2009-02-14 00:00:00 Completed [facility] Influenza Virus Vaccine 2009-02-14 00:00:00 Completed [facility] Influenza Virus Vaccine 2009-02-14 00:00:00 Completed [facility] Influenza Virus Vaccine 2009-02-14 00:00:00 Completed [facility] Influenza Virus Vaccine 2009-02-14 00:00:00 Completed [facility] Influenza Virus Vaccine 2009-02-14 00:00:00 Completed [facility] Influenza Virus Vaccine 2009-02-14 00:00:00 Completed [facility] Influenza Virus Vaccine 2009-02-14 00:00:00 Completed [facility] Influenza Virus Vaccine 2009-02-14 00:00:00 Completed [facility] Influenza Virus Vaccine 2009-02-14 00:00:00 Completed [facility] Influenza Virus Vaccine 2009-02-14 00:00:00 Completed [facility] Influenza Virus Vaccine 2009-02-14 00:00:00 Completed [facility] Influenza Virus Vaccine 2009-02-14 00:00:00 Completed [facility] Influenza Virus Vaccine 2009-02-14 00:00:00 Completed [facility] Influenza Virus Vaccine 2009-02-14 00:00:00 Completed [facility] Influenza Virus Vaccine 2009-02-14 00:00:00 Completed [facility] Influenza Virus Vaccine 2009-02-14 00:00:00 Completed [facility] Influenza Virus Vaccine 2009-02-14 00:00:00 Completed [facility] Influenza Virus Vaccine 2009-02-14 00:00:00 Completed [facility] Influenza Virus Vaccine 2009-02-14 00:00:00 Completed [facility] Influenza Virus Vaccine 2009-02-14 00:00:00 Completed [facility] Influenza Virus Vaccine 2009-02-14 00:00:00 Completed [facility] Influenza Virus Vaccine 2009-02-14 00:00:00 Completed [facility] Influenza Virus Vaccine 2009-02-14 00:00:00 Completed [facility] Influenza Virus Vaccine 2009-02-14 00:00:00 Completed [facility] Influenza Virus Vaccine 2009-02-14 00:00:00 Completed [facility] Influenza Virus Vaccine 2009-02-14 00:00:00 Completed [facility] Influenza Virus Vaccine 2009-02-14 00:00:00 Completed [facility] Influenza Virus Vaccine 2009-02-14 00:00:00 Completed [facility] Influenza Virus Vaccine 2009-02-14 00:00:00 Completed [facility] Influenza Virus Vaccine 2009-02-14 00:00:00 Completed [facility] Influenza Virus Vaccine 2009-02-14 00:00:00 Completed [facility] Influenza Virus Vaccine 2009-02-14 00:00:00 Completed [facility] Influenza Virus Vaccine 2009-02-14 00:00:00 Completed [facility] Influenza Virus Vaccine 2009-02-14 00:00:00 Completed [facility] Influenza Virus Vaccine 2009-02-14 00:00:00 Completed [facility] Influenza Virus Vaccine 2009-02-14 00:00:00 Completed [facility] Influenza Virus Vaccine 2009-02-14 00:00:00 Completed [facility] Influenza Virus Vaccine 2009-02-14 00:00:00 Completed [facility] Influenza Virus Vaccine 2009-02-14 00:00:00 Completed [facility] Influenza Virus Vaccine 2009-02-14 00:00:00 Completed [facility] Influenza Virus Vaccine 2009-02-14 00:00:00 Completed [facility] Influenza Virus Vaccine 2009-02-14 00:00:00 Completed [facility] Influenza Virus Vaccine 2007-05-24 00:00:00 Completed [facility] Influenza Virus Vaccine 2007-05-24 00:00:00 Completed [facility] Influenza Virus Vaccine 2007-05-24 00:00:00 Completed [facility] Influenza Virus Vaccine 2007-05-24 00:00:00 Completed [facility] Influenza Virus Vaccine 2007-05-24 00:00:00 Completed [facility] Influenza Virus Vaccine 2007-05-24 00:00:00 Completed [facility] Influenza Virus Vaccine 2007-05-24 00:00:00 Completed [facility] Influenza Virus Vaccine 2007-05-24 00:00:00 Completed [facility] Influenza Virus Vaccine 2007-05-24 00:00:00 Completed [facility] Influenza Virus Vaccine 2007-05-24 00:00:00 Completed [facility] Influenza Virus Vaccine 2007-05-24 00:00:00 Completed [facility] Influenza Virus Vaccine 2007-05-24 00:00:00 Completed [facility] Influenza Virus Vaccine 2007-05-24 00:00:00 Completed [facility] Influenza Virus Vaccine 2007-05-24 00:00:00 Completed [facility] Influenza Virus Vaccine 2007-05-24 00:00:00 Completed [facility] Influenza Virus Vaccine 2007-05-24 00:00:00 Completed [facility] Influenza Virus Vaccine 2007-05-24 00:00:00 Completed [facility] Influenza Virus Vaccine 2007-05-24 00:00:00 Completed [facility] Influenza Virus Vaccine 2007-05-24 00:00:00 Completed [facility] Influenza Virus Vaccine 2007-05-24 00:00:00 Completed [facility] Influenza Virus Vaccine 2007-05-24 00:00:00 Completed [facility] Influenza Virus Vaccine 2007-05-24 00:00:00 Completed [facility] Influenza Virus Vaccine 2007-05-24 00:00:00 Completed [facility] Influenza Virus Vaccine 2007-05-24 00:00:00 Completed [facility] Influenza Virus Vaccine 2007-05-24 00:00:00 Completed [facility] Influenza Virus Vaccine 2007-05-24 00:00:00 Completed [facility] Influenza Virus Vaccine 2007-05-24 00:00:00 Completed [facility] Influenza Virus Vaccine 2007-05-24 00:00:00 Completed [facility] Influenza Virus Vaccine 2007-05-24 00:00:00 Completed [facility] Influenza Virus Vaccine 2007-05-24 00:00:00 Completed [facility] Influenza Virus Vaccine 2007-05-24 00:00:00 Completed [facility] Influenza Virus Vaccine 2007-05-24 00:00:00 Completed [facility] Influenza Virus Vaccine 2007-05-24 00:00:00 Completed [facility] Influenza Virus Vaccine 2007-05-24 00:00:00 Completed [facility] Influenza Virus Vaccine 2007-05-24 00:00:00 Completed [facility] Influenza Virus Vaccine 2007-05-24 00:00:00 Completed [facility] Influenza Virus Vaccine 2007-05-24 00:00:00 Completed [facility] Influenza Virus Vaccine 2007-05-24 00:00:00 Completed [facility] Influenza Virus Vaccine 2007-05-24 00:00:00 Completed [facility] Influenza Virus Vaccine 2007-05-24 00:00:00 Completed [facility] Influenza Virus Vaccine 2007-05-24 00:00:00 Completed [facility] Influenza Virus Vaccine 2007-05-24 00:00:00 Completed [facility] Influenza Virus Vaccine 2007-05-24 00:00:00 Completed [facility] Influenza Virus Vaccine 2007-05-24 00:00:00 Completed [facility] Influenza Virus Vaccine 2007-05-24 00:00:00 Completed [facility] Influenza Virus Vaccine 2007-05-24 00:00:00 Completed [facility] Influenza Virus Vaccine 2007-05-24 00:00:00 Completed [facility] Influenza Virus Vaccine 2007-05-24 00:00:00 Completed [facility] Influenza Virus Vaccine 2007-05-24 00:00:00 Completed [facility] Influenza Virus Vaccine 2007-05-24 00:00:00 Completed [facility] Influenza Virus Vaccine 2007-05-24 00:00:00 Completed [facility] Influenza Virus Vaccine 2007-05-24 00:00:00 Completed [facility] Influenza Virus Vaccine 2007-05-24 00:00:00 Completed [facility] Influenza Virus Vaccine 2007-05-24 00:00:00 Completed [facility] Influenza Virus Vaccine 2007-05-24 00:00:00 Completed [facility] Influenza Virus Vaccine 2007-05-24 00:00:00 Completed [facility] Influenza Virus Vaccine 2007-05-24 00:00:00 Completed [facility] Influenza Virus Vaccine 2007-05-24 00:00:00 Completed [facility] Influenza Virus Vaccine 2007-05-24 00:00:00 Completed [facility] Influenza Virus Vaccine 2007-05-24 00:00:00 Completed [facility] Influenza Virus Vaccine 2007-05-24 00:00:00 Completed [facility] Influenza Virus Vaccine 2007-05-24 00:00:00 Completed [facility] Influenza Virus Vaccine 2007-05-24 00:00:00 Completed [facility] Influenza Virus Vaccine 2007-05-24 00:00:00 Completed [facility] Influenza Virus Vaccine 2007-05-24 00:00:00 Completed [facility] Influenza Virus Vaccine 2007-05-24 00:00:00 Completed [facility] Influenza Virus Vaccine 2007-05-24 00:00:00 Completed [facility] Influenza Virus Vaccine 2007-05-24 00:00:00 Completed [facility] Influenza Virus Vaccine 2007-05-24 00:00:00 Completed [facility] Influenza Virus Vaccine 2007-05-24 00:00:00 Completed [facility] Influenza Virus Vaccine 2007-05-24 00:00:00 Completed [facility] Influenza Virus Vaccine 2007-05-24 00:00:00 Completed [facility] Influenza Virus Vaccine 2007-05-24 00:00:00 Completed [facility] Influenza Virus Vaccine 2007-05-24 00:00:00 Completed [facility] Influenza Virus Vaccine 2007-05-24 00:00:00 Completed [facility] Influenza Virus Vaccine 2007-05-24 00:00:00 Completed [facility] Influenza Virus Vaccine 2007-05-24 00:00:00 Completed [facility] Influenza Virus Vaccine 2007-05-24 00:00:00 Completed [facility] Influenza Virus Vaccine 2007-05-24 00:00:00 Completed [facility] Influenza Virus Vaccine 2007-05-24 00:00:00 Completed [facility] Influenza Virus Vaccine 2007-05-24 00:00:00 Completed [facility] Influenza Virus Vaccine 2007-05-24 00:00:00 Completed [facility] Influenza Virus Vaccine 2007-05-24 00:00:00 Completed [facility] Influenza Virus Vaccine 2007-05-24 00:00:00 Completed [facility] Influenza Virus Vaccine 2007-05-24 00:00:00 Completed [facility] Influenza Virus Vaccine 2007-05-24 00:00:00 Completed [facility] Influenza Virus Vaccine 2007-05-24 00:00:00 Completed [facility] Influenza Virus Vaccine Unknown Completed [facility] Influenza Virus Vaccine Unknown Completed [facility] H1n1 Vaccine Unknown Completed [facility] Influenza Virus Vaccine Unknown Completed [facility] Influenza Virus Vaccine Unknown Completed [facility] Hep B, Adol or Pedi Dosage Unknown Completed [facility] Influenza Virus Vaccine Quad IM 3+ YRS Unknown Completed [facility] Influenza High Dose Unknown Completed [facility] Influenza High Dose Unknown Completed [facility] Influenza High Dose Unknown Completed [facility] Influenza High Dose Unknown Completed [facility] Influenza Virus Vaccine Quad .5 mL IM 6+ MO (FLUZONE/FLULAVAL/F LUARIX) Unknown Completed [facility] TDAP (ADACEL) VACCINE Unknown Completed [facility] Influenza Virus Vaccine Recomb Quad IM, Preserv and ABX Free 18-64 YRS Unknown Completed [facility] SARS-COV-2 COVID-19 PFIZER VACCINE Unknown Completed [facility] SARS-COV-2 COVID-19 PFIZER VACCINE Unknown Completed [facility] Influenza Virus Vaccine Quad IM, Preserv and ABX Free 6 MO-64 YRS (FLUCELVAX) Unknown Completed [facility] Pneumococcal Polysaccharide, PPSV23 (PNEUMOVAX) Unknown Completed [facility] Influenza Virus Vaccine Unknown Completed [facility] Influenza Virus Vaccine Unknown Completed [facility] H1n1 Vaccine Unknown Completed [facility] Influenza Virus Vaccine Unknown Completed [facility] Influenza Virus Vaccine Unknown Completed [facility] Hep B, Adol or Pedi Dosage Unknown Completed [facility] Influenza Virus Vaccine Quad IM 3+ YRS Unknown Completed [facility] Influenza High Dose Unknown Completed [facility] Influenza High Dose Unknown Completed [facility] Influenza High Dose Unknown Completed [facility] Influenza High Dose Unknown Completed [facility] Influenza Virus Vaccine Quad .5 mL IM 6+ MO (FLUZONE/FLULAVAL/F LUARIX) Unknown Completed [facility] TDAP (ADACEL) VACCINE Unknown Completed [facility] Influenza Virus Vaccine Recomb Quad IM, Preserv and ABX Free 18-64 YRS Unknown Completed [facility] SARS-COV-2 COVID-19 PFIZER VACCINE Unknown Completed [facility] SARS-COV-2 COVID-19 PFIZER VACCINE Unknown Completed [facility] Influenza Virus Vaccine Quad IM, Preserv and ABX Free 6 MO-64 YRS (FLUCELVAX) Unknown Completed [facility] Pneumococcal Polysaccharide, PPSV23 (PNEUMOVAX) Unknown Completed [facility] Influenza Virus Vaccine Unknown Completed [facility] Influenza Virus Vaccine Unknown Completed [facility] H1n1 Vaccine Unknown Completed [facility] Influenza Virus Vaccine Unknown Completed [facility] Influenza Virus Vaccine Unknown Completed [facility] Hep B, Adol or Pedi Dosage Unknown Completed [facility] Influenza Virus Vaccine Quad IM 3+ YRS Unknown Completed [facility] Influenza High Dose Unknown Completed [facility] Influenza High Dose Unknown Completed [facility] Influenza High Dose Unknown Completed [facility] Influenza High Dose Unknown Completed [facility] Influenza Virus Vaccine Quad .5 mL IM 6+ MO (FLUZONE/FLULAVAL/F LUARIX) Unknown Completed [facility] TDAP (ADACEL) VACCINE Unknown Completed [facility] Influenza Virus Vaccine Recomb Quad IM, Preserv and ABX Free 18-64 YRS Unknown Completed [facility] SARS-COV-2 COVID-19 PFIZER VACCINE Unknown Completed [facility] SARS-COV-2 COVID-19 PFIZER VACCINE Unknown Completed [facility] Influenza Virus Vaccine Quad IM, Preserv and ABX Free 6 MO-64 YRS (FLUCELVAX) Unknown Completed [facility] Pneumococcal Polysaccharide, PPSV23 (PNEUMOVAX) Unknown Completed [facility] Influenza Virus Vaccine Unknown Completed [facility] Influenza Virus Vaccine Unknown Completed [facility] H1n1 Vaccine Unknown Completed [facility] Influenza Virus Vaccine Unknown Completed [facility] Influenza Virus Vaccine Unknown Completed [facility] Hep B, Adol or Pedi Dosage Unknown Completed [facility] Influenza Virus Vaccine Quad IM 3+ YRS Unknown Completed [facility] Influenza High Dose Unknown Completed [facility] Influenza High Dose Unknown Completed [facility] Influenza High Dose Unknown Completed [facility] Influenza High Dose Unknown Completed [facility] Influenza Virus Vaccine Quad .5 mL IM 6+ MO (FLUZONE/FLULAVAL/F LUARIX) Unknown Completed [facility] TDAP (ADACEL) VACCINE Unknown Completed [facility] Influenza Virus Vaccine Recomb Quad IM, Preserv and ABX Free 18-64 YRS Unknown Completed [facility] SARS-COV-2 COVID-19 PFIZER VACCINE Unknown Completed [facility] SARS-COV-2 COVID-19 PFIZER VACCINE Unknown Completed [facility] Influenza Virus Vaccine Quad IM, Preserv and ABX Free 6 MO-64 YRS (FLUCELVAX) Unknown Completed [facility] Pneumococcal Polysaccharide, PPSV23 (PNEUMOVAX) Unknown Completed [facility] Influenza Virus Vaccine Unknown Completed [facility] Influenza Virus Vaccine Unknown Completed [facility] H1n1 Vaccine Unknown Completed [facility] Influenza Virus Vaccine Unknown Completed [facility] Influenza Virus Vaccine Unknown Completed [facility] Hep B, Adol or Pedi Dosage Unknown Completed [facility] Influenza Virus Vaccine Quad IM 3+ YRS Unknown Completed [facility] Influenza High Dose Unknown Completed [facility] Influenza High Dose Unknown Completed [facility] Influenza High Dose Unknown Completed [facility] Influenza High Dose Unknown Completed [facility] Influenza Virus Vaccine Quad .5 mL IM 6+ MO (FLUZONE/FLULAVAL/F LUARIX) Unknown Completed [facility] TDAP (ADACEL) VACCINE Unknown Completed [facility] Influenza Virus Vaccine Recomb Quad IM, Preserv and ABX Free 18-64 YRS Unknown Completed [facility] SARS-COV-2 COVID-19 PFIZER VACCINE Unknown Completed [facility] SARS-COV-2 COVID-19 PFIZER VACCINE Unknown Completed [facility] Influenza Virus Vaccine Quad IM, Preserv and ABX Free 6 MO-64 YRS (FLUCELVAX) Unknown Completed [facility] Pneumococcal Polysaccharide, PPSV23 (PNEUMOVAX) [facility] Influ[facility] Vacc[facility] Unknown Completed [facility] Influenza Virus Vaccine Unknown Completed [facility] H1n1 Vaccine Unknown Completed [facility] Influenza Virus Vaccine Unknown Completed [facility] Influenza Virus Vaccine Unknown Completed [facility] Hep B, Adol or Pedi Dosage Unknown Completed [facility] Influenza Virus Vaccine Quad IM 3+ YRS Unknown Completed [facility] Influenza High Dose Unknown Completed [facility] Influenza High Dose Unknown Completed [facility] Influenza High Dose Unknown Completed [facility] Influenza High Dose Unknown Completed [facility] Influenza Virus Vaccine Quad .5 mL IM 6+ MO (FLUZONE/FLULAVAL/F LUARIX) Unknown Completed [facility] TDAP (ADACEL) VACCINE Unknown Completed [facility] Influenza Virus Vaccine Recomb Quad IM, Preserv and ABX Free 18-64 YRS Unknown Completed [facility] SARS-COV-2 COVID-19 PFIZER VACCINE Unknown Completed [facility] SARS-COV-2 COVID-19 PFIZER VACCINE Unknown Completed [facility] Influenza Virus Vaccine Quad IM, Preserv and ABX Free 6 MO-64 YRS (FLUCELVAX) Unknown Completed [facility] Pneumococcal Polysaccharide, PPSV23 (PNEUMOVAX) Unknown [facility] Influenza Virus Vaccine Unknown Completed [facility] Influenza Virus Vaccine Unknown Completed [facility] H1n1 Vaccine Unknown Completed [facility] Influenza Virus Vaccine Unknown Completed [facility] Influenza Virus Vaccine Unknown Completed [facility] Hep B, Adol or Pedi Dosage Unknown Completed [facility] Influenza Virus Vaccine Quad IM 3+ YRS Unknown Completed [facility] Influenza High Dose Unknown Completed [facility] Influenza High Dose Unknown Completed [facility] Influenza High Dose Unknown Completed [facility] Influenza High Dose Unknown Completed [facility] Influenza Virus Vaccine Quad .5 mL IM 6+ MO (FLUZONE/FLULAVAL/F LUARIX) Unknown Completed [facility] TDAP (ADACEL) VACCINE Unknown Completed [facility] Influenza Virus Vaccine Recomb Quad IM, Preserv and ABX Free 18-64 YRS Unknown Completed [facility] SARS-COV-2 COVID-19 PFIZER VACCINE Unknown Completed [facility] SARS-COV-2 COVID-19 PFIZER VACCINE Unknown Completed [facility] Influenza Virus Vaccine Quad IM, Preserv and ABX Free 6 MO-64 YRS (FLUCELVAX) Unknown Completed [facility] Pneumococcal Polysaccharide, PPSV23 (PNEUMOVAX) Unknown [facility] Influenza Virus Vaccine Unknown Completed [facility] Influenza Virus Vaccine Unknown Completed [facility] H1n1 Vaccine Unknown Completed [facility] Influenza Virus Vaccine Unknown Completed [facility] Influenza Virus Vaccine Unknown Completed [facility] Hep B, Adol or Pedi Dosage Unknown Completed [facility] Influenza Virus Vaccine Quad IM 3+ YRS Unknown Completed [facility] Influenza High Dose Unknown Completed [facility] Influenza High Dose Unknown Completed [facility] Influenza High Dose Unknown Completed [facility] Influenza High Dose Unknown Completed [facility] Influenza Virus Vaccine Quad .5 mL IM 6+ MO (FLUZONE/FLULAVAL/F LUARIX) Unknown Completed [facility] TDAP (ADACEL) VACCINE Unknown Completed [facility] Influenza Virus Vaccine Recomb Quad IM, Preserv and ABX Free 18-64 YRS Unknown Completed [facility] SARS-COV-2 COVID-19 PFIZER VACCINE Unknown Completed [facility] SARS-COV-2 COVID-19 PFIZER VACCINE Unknown Completed [facility] Influenza Virus Vaccine Quad IM, Preserv and ABX Free 6 MO-64 YRS (FLUCELVAX) Unknown Completed [facility] Pneumococcal Polysaccharide, PPSV23 (PNEUMOVAX) Unknown Completed [facility] Influenza Virus Vaccine Unknown Completed [facility] Influenza Virus Vaccine Unknown Completed [facility] H1n1 Vaccine Unknown Completed [facility] Influenza Virus Vaccine Unknown Completed [facility] Influenza Virus Vaccine Unknown Completed [facility] Hep B, Adol or Pedi Dosage Unknown Completed [facility] Influenza Virus Vaccine Quad IM 3+ YRS Unknown Completed [facility] Influenza High Dose Unknown Completed [facility] Influenza High Dose Unknown Completed [facility] Influenza High Dose Unknown Completed [facility] Influenza High Dose Unknown Completed [facility] Influenza Virus Vaccine Quad .5 mL IM 6+ MO (FLUZONE/FLULAVAL/F LUARIX) Unknown Completed [facility] TDAP (ADACEL) VACCINE Unknown Completed [facility] Influenza Virus Vaccine Recomb Quad IM, Preserv and ABX Free 18-64 YRS Unknown Completed [facility] SARS-COV-2 COVID-19 PFIZER VACCINE Unknown Completed [facility] SARS-COV-2 COVID-19 PFIZER VACCINE Unknown Completed [facility] Influenza Virus Vaccine Quad IM, Preserv and ABX Free 6 MO-64 YRS (FLUCELVAX) Unknown Completed [facility] Pneumococcal Polysaccharide, PPSV23 (PNEUMOVAX) Unknown Completed [facility] Influenza Virus Vaccine Unknown Completed [facility] Influenza Virus Vaccine Unknown Completed [facility] H1n1 Vaccine Unknown Completed [facility] Influenza Virus Vaccine Unknown Completed [facility] Influenza Virus Vaccine Unknown Completed [facility] Hep B, Adol or Pedi Dosage Unknown Completed [facility] Influenza Virus Vaccine Quad IM 3+ YRS Unknown Completed [facility] Influenza High Dose Unknown Completed [facility] Influenza High Dose Unknown Completed [facility] Influenza High Dose Unknown Completed [facility] Influenza High Dose Unknown Completed [facility] Influenza Virus Vaccine Quad .5 mL IM 6+ MO (FLUZONE/FLULAVAL/F LUARIX) Unknown Completed [facility] TDAP (ADACEL) VACCINE Unknown Completed [facility] Influenza Virus Vaccine Recomb Quad IM, Preserv and ABX Free 18-64 YRS Unknown Completed [facility] SARS-COV-2 COVID-19 PFIZER VACCINE Unknown Completed [facility] SARS-COV-2 COVID-19 PFIZER VACCINE Unknown Completed [facility] Influenza Virus Vaccine Quad IM, Preserv and ABX Free 6 MO-64 YRS (FLUCELVAX) Unknown Completed [facility] Pneumococcal Polysaccharide, PPSV23 (PNEUMOVAX) Unknown Completed [facility] Influenza Virus Vaccine Unknown Completed [facility] Influenza Virus Vaccine Unknown Completed [facility] H1n1 Vaccine Unknown Completed [facility] Influenza Virus Vaccine Unknown Completed [facility] Influenza Virus Vaccine Unknown Completed [facility] Hep B, Adol or Pedi Dosage Unknown Completed [facility] Influenza Virus Vaccine Quad IM 3+ YRS Unknown Completed [facility] Influenza High Dose Unknown Completed [facility] Influenza High Dose Unknown Completed [facility] Influenza High Dose Unknown Completed [facility] Influenza High Dose Unknown Completed [facility] Influenza Virus Vaccine Quad .5 mL IM 6+ MO (FLUZONE/FLULAVAL/F LUARIX) Unknown Completed [facility] TDAP (ADACEL) VACCINE Unknown Completed [facility] Influenza Virus Vaccine Recomb Quad IM, Preserv and ABX Free 18-64 YRS Unknown Completed [facility] SARS-COV-2 COVID-19 PFIZER VACCINE Unknown Completed [facility] SARS-COV-2 COVID-19 PFIZER VACCINE Unknown Completed [facility] Influenza Virus Vaccine Quad IM, Preserv and ABX Free 6 MO-64 YRS (FLUCELVAX) Unknown Completed [facility] Pneumococcal Polysaccharide, PPSV23 (PNEUMOVAX) Unknown Completed [facility] Influenza Virus Vaccine Unknown Completed [facility] Influenza Virus Vaccine Unknown Completed [facility] H1n1 Vaccine Unknown Completed [facility] Influenza Virus Vaccine Unknown Completed [facility] Influenza Virus Vaccine Unknown Completed [facility] Hep B, Adol or Pedi Dosage Unknown Completed [facility] Influenza Virus Vaccine Quad IM 3+ YRS Unknown Completed [facility] Influenza High Dose Unknown Completed [facility] Influenza High Dose Unknown Completed [facility] Influenza High Dose Unknown Completed [facility] Influenza High Dose Unknown Completed [facility] Influenza Virus Vaccine Quad .5 mL IM 6+ MO (FLUZONE/FLULAVAL/F LUARIX) Unknown Completed [facility] TDAP (ADACEL) VACCINE Unknown Completed [facility] Influenza Virus Vaccine Recomb Quad IM, Preserv and ABX Free 18-64 YRS Unknown Completed [facility] SARS-COV-2 COVID-19 PFIZER VACCINE Unknown Completed [facility] SARS-COV-2 COVID-19 PFIZER VACCINE Unknown Completed [facility] Influenza Virus Vaccine Quad IM, Preserv and ABX Free 6 MO-64 YRS (FLUCELVAX) Unknown Completed [facility] Pneumococcal Polysaccharide, PPSV23 (PNEUMOVAX) Unknown Completed [facility] Influenza Virus Vaccine Unknown Completed [facility] Influenza Virus Vaccine Unknown Completed [facility] H1n1 Vaccine Unknown Completed [facility] Influenza Virus Vaccine Unknown Completed [facility] Influenza Virus Vaccine Unknown Completed [facility] Hep B, Adol or Pedi Dosage Unknown Completed [facility] Influenza Virus Vaccine Quad IM 3+ YRS Unknown Completed [facility] Influenza High Dose Unknown Completed [facility] Influenza High Dose Unknown Completed [facility] Influenza High Dose Unknown Completed [facility] Influenza High Dose Unknown Completed [facility] Influenza Virus Vaccine Quad .5 mL IM 6+ MO (FLUZONE/FLULAVAL/F LUARIX) Unknown Completed [facility] TDAP (ADACEL) VACCINE Unknown Completed [facility] Influenza Virus Vaccine Recomb Quad IM, Preserv and ABX Free 18-64 YRS Unknown Completed [facility] SARS-COV-2 COVID-19 PFIZER VACCINE Unknown Completed [facility] SARS-COV-2 COVID-19 PFIZER VACCINE Unknown Completed [facility] Influenza Virus Vaccine Quad IM, Preserv and ABX Free 6 MO-64 YRS (FLUCELVAX) Unknown Completed [facility] Pneumococcal Polysaccharide, PPSV23 (PNEUMOVAX) Unknown Completed [facility] Influenza Virus Vaccine Unknown Completed [facility] Influenza Virus Vaccine Unknown Completed [facility] H1n1 Vaccine Unknown Completed [facility] Influenza Virus Vaccine Unknown Completed [facility] Influenza Virus Vaccine Unknown Completed [facility] Hep B, Adol or Pedi Dosage Unknown Completed [facility] Influenza Virus Vaccine Quad IM 3+ YRS Unknown Completed [facility] Influenza High Dose Unknown Completed [facility] Influenza High Dose Unknown Completed [facility] Influenza High Dose Unknown Completed [facility] Influenza High Dose Unknown Completed [facility] Influenza Virus Vaccine Quad .5 mL IM 6+ MO (FLUZONE/FLULAVAL/F LUARIX) Unknown Completed [facility] TDAP (ADACEL) VACCINE Unknown Completed [facility] Influenza Virus Vaccine Recomb Quad IM, Preserv and ABX Free 18-64 YRS Unknown Completed [facility] SARS-COV-2 COVID-19 PFIZER VACCINE Unknown Completed [facility] SARS-COV-2 COVID-19 PFIZER VACCINE Unknown Completed [facility] Influenza Virus Vaccine Quad IM, Preserv and ABX Free 6 MO-64 YRS (FLUCELVAX) Unknown Completed [facility] Pneumococcal Polysaccharide, PPSV23 (PNEUMOVAX) [facility] Influ[facility] Virus Vaccine Unknown Completed [facility] Influenza Virus Vaccine Unknown Completed [facility] H1n1 Vaccine Unknown Completed [facility] Influenza Virus Vaccine Unknown Completed [facility] Influenza Virus Vaccine Unknown Completed [facility] Hep B, Adol or Pedi Dosage Unknown Completed [facility] Influenza Virus Vaccine Quad IM 3+ YRS Unknown Completed [facility] Influenza High Dose Unknown Completed [facility] Influenza High Dose Unknown Completed [facility] Influenza High Dose Unknown Completed [facility] Influenza High Dose Unknown Completed [facility] Influenza Virus Vaccine Quad .5 mL IM 6+ MO (FLUZONE/FLULAVAL/F LUARIX) Unknown Completed [facility] TDAP (ADACEL) VACCINE Unknown Completed [facility] Influenza Virus Vaccine Recomb Quad IM, Preserv and ABX Free 18-64 YRS Unknown Completed [facility] SARS-COV-2 COVID-19 PFIZER VACCINE Unknown Completed [facility] SARS-COV-2 COVID-19 PFIZER VACCINE Unknown Completed [facility] Influenza Virus Vaccine Quad IM, Preserv and ABX Free 6 MO-64 YRS (FLUCELVAX) Unknown Completed [facility] Pneumococcal Polysaccharide, PPSV23 (PNEUMOVAX) [facility] Influ[facility] Virus Vaccine Unknown Completed [facility] Influenza Virus Vaccine Unknown Completed [facility] H1n1 Vaccine Unknown Com[facility]ine [facility] Completed [facility] Influenza Virus Vaccine Unknown Completed [facility] Hep B, Adol or Pedi Dosage Unknown Completed [facility] Influenza Virus Vaccine Quad IM 3+ YRS Unknown Completed [facility] Influenza High Dose Unknown Completed [facility] Influenza High Dose Unknown Completed [facility] Influenza High Dose Unknown Completed [facility] Influenza High Dose Unknown Completed [facility] Influenza Virus Vaccine Quad .5 mL IM 6+ MO (FLUZONE/FLULAVAL/F LUARIX) Unknown Completed [facility] TDAP (ADACEL) VACCINE Unknown Completed [facility] Influenza Virus Vaccine Recomb Quad IM, Preserv and ABX Free 18-64 YRS Unknown Completed [facility] SARS-COV-2 COVID-19 PFIZER VACCINE Unknown Completed [facility] SARS-COV-2 COVID-19 PFIZER VACCINE Unknown Completed [facility] Influenza Virus Vaccine Quad IM, Preserv and ABX Free 6 MO-64 YRS (FLUCELVAX) Unknown Completed [facility] Pneumococcal Polysaccharide, PPSV23 (PNEUMOVAX) Unknown Completed [facility] Influenza Virus Vaccine Unknown Completed [facility] Influenza Virus Vaccine Unknown Completed [facility] H1n1 Vaccine Unknown Completed [facility] Influenza Virus Vaccine Unknown Completed [facility] Influenza Virus Vaccine Unknown Completed [facility] Hep B, Adol or Pedi Dosage Unknown Completed [facility] Influenza Virus Vaccine Quad IM 3+ YRS Unknown Completed [facility] Influenza High Dose Unknown Completed [facility] Influenza High Dose Unknown Completed [facility] Influenza High Dose Unknown Completed [facility] Influenza High Dose Unknown Completed [facility] Influenza Virus Vaccine Quad .5 mL IM 6+ MO (FLUZONE/FLULAVAL/F LUARIX) Unknown Completed [facility] TDAP (ADACEL) VACCINE Unknown Completed [facility] Influenza Virus Vaccine Recomb Quad IM, Preserv and ABX Free 18-64 YRS Unknown Completed [facility] SARS-COV-2 COVID-19 PFIZER VACCINE Unknown Completed [facility] SARS-COV-2 COVID-19 PFIZER VACCINE Unknown Completed [facility] Influenza Virus Vaccine Quad IM, Preserv and ABX Free 6 MO-64 YRS (FLUCELVAX) Unknown Completed [facility] Pneumococcal Polysaccharide, PPSV23 (PNEUMOVAX) Unknown Completed [facility] Influenza Virus Vaccine Unknown Completed [facility] Influenza Virus Vaccine Unknown Completed [facility] H1n1 Vaccine Unknown Completed [facility] Influenza Virus Vaccine Unknown Completed [facility] Influenza Virus Vaccine Unknown Completed [facility] Hep B, Adol or Pedi Dosage Unknown Completed [facility] Influenza Virus Vaccine Quad IM 3+ YRS Unknown Completed [facility] Influenza High Dose Unknown Completed [facility] Influenza High Dose Unknown Completed [facility] Influenza High Dose Unknown Completed [facility] Influenza High Dose Unknown Completed [facility] Influenza Virus Vaccine Quad .5 mL IM 6+ MO (FLUZONE/FLULAVAL/F LUARIX) Unknown Completed [facility] TDAP (ADACEL) VACCINE Unknown Completed [facility] Influenza Virus Vaccine Recomb Quad IM, Preserv and ABX Free 18-64 YRS Unknown Completed [facility] SARS-COV-2 COVID-19 PFIZER VACCINE Unknown Completed [facility] SARS-COV-2 COVID-19 PFIZER VACCINE Unknown Completed [facility] Influenza Virus Vaccine Quad IM, Preserv and ABX Free 6 MO-64 YRS (FLUCELVAX) Unknown Completed [facility] Pneumococcal Polysaccharide, PPSV23 (PNEUMOVAX) Unknown Completed [facility] Influenza Virus Vaccine Unknown Completed [facility] Influenza Virus Vaccine Unknown Completed [facility] H1n1 Vaccine Unknown Completed [facility] Influenza Virus Vaccine Unknown Completed [facility] Influenza Virus Vaccine Unknown Completed [facility] Hep B, Adol or Pedi Dosage Unknown Completed [facility] Influenza Virus Vaccine Quad IM 3+ YRS Unknown Completed [facility] Influenza High Dose Unknown Completed [facility] Influenza High Dose Unknown Completed [facility] Influenza High Dose Unknown Completed [facility] Influenza High Dose Unknown Completed [facility] Influenza Virus Vaccine Quad .5 mL IM 6+ MO (FLUZONE/FLULAVAL/F LUARIX) Unknown Completed [facility] TDAP (ADACEL) VACCINE Unknown Completed [facility] Influenza Virus Vaccine Recomb Quad IM, Preserv and ABX Free 18-64 YRS Unknown Completed [facility] SARS-COV-2 COVID-19 PFIZER VACCINE Unknown Completed [facility] SARS-COV-2 COVID-19 PFIZER VACCINE Unknown Completed [facility] Influenza Virus Vaccine Quad IM, Preserv and ABX Free 6 MO-64 YRS (FLUCELVAX) Unknown Completed [facility] Pneumococcal Polysaccharide, PPSV23 (PNEUMOVAX) Unknown [facility] Influenza Virus Vaccine Unknown Completed [facility] Influenza Virus Vaccine Unknown Completed [facility] H1n1 Vaccine Unknown Completed [facility] Influenza Virus Vaccine Unknown Completed [facility] Influenza Virus Vaccine Unknown Completed [facility] Hep B, Adol or Pedi Dosage Unknown Completed [facility] Influenza Virus Vaccine Quad IM 3+ YRS Unknown Completed [facility] Influenza High Dose Unknown Completed [facility] Influenza High Dose Unknown Completed [facility] Influenza High Dose Unknown Completed [facility] Influenza High Dose Unknown Completed [facility] Influenza Virus Vaccine Quad .5 mL IM 6+ MO (FLUZONE/FLULAVAL/F LUARIX) Unknown Completed [facility] TDAP (ADACEL) VACCINE Unknown Completed [facility] Influenza Virus Vaccine Recomb Quad IM, Preserv and ABX Free 18-64 YRS Unknown Completed [facility] SARS-COV-2 COVID-19 PFIZER VACCINE Unknown Completed [facility] SARS-COV-2 COVID-19 PFIZER VACCINE Unknown Completed [facility] Influenza Virus Vaccine Quad IM, Preserv and ABX Free 6 MO-64 YRS (FLUCELVAX) Unknown Completed [facility] Pneumococcal Polysaccharide, PPSV23 (PNEUMOVAX) Unknown Completed [facility] Influenza Virus Vaccine Unknown Completed [facility] Influenza Virus Vaccine Unknown Completed [facility] H1n1 Vaccine Unknown Completed [facility] Influenza Virus Vaccine Unknown Completed [facility] Influenza Virus Vaccine Unknown Completed [facility] Hep B, Adol or Pedi Dosage Unknown Completed [facility] Influenza Virus Vaccine Quad IM 3+ YRS Unknown Completed [facility] Influenza High Dose Unknown Completed [facility] Influenza High Dose Unknown Completed [facility] Influenza High Dose Unknown Completed [facility] Influenza High Dose Unknown Completed [facility] Influenza Virus Vaccine Quad .5 mL IM 6+ MO (FLUZONE/FLULAVAL/F LUARIX) Unknown Completed [facility] TDAP (ADACEL) VACCINE Unknown Completed [facility] Influenza Virus Vaccine Recomb Quad IM, Preserv and ABX Free 18-64 YRS Unknown Completed [facility] SARS-COV-2 COVID-19 PFIZER VACCINE Unknown Completed [facility] SARS-COV-2 COVID-19 PFIZER VACCINE Unknown Completed [facility] Influenza Virus Vaccine Quad IM, Preserv and ABX Free 6 MO-64 YRS (FLUCELVAX) Unknown Completed [facility] Pneumococcal Polysaccharide, PPSV23 (PNEUMOVAX) Unknown Completed [facility] Influenza Virus Vaccine Unknown Completed [facility] Influenza Virus Vaccine Unknown Completed [facility] H1n1 Vaccine Unknown Completed [facility] Influenza Virus Vaccine Unknown Completed [facility] Influenza Virus Vaccine Unknown Completed [facility] Hep B, Adol or Pedi Dosage Unknown Completed [facility] Influenza Virus Vaccine Quad IM 3+ YRS Unknown Completed [facility] Influenza High Dose Unknown Completed [facility] Influenza High Dose Unknown Completed [facility] Influenza High Dose Unknown Completed [facility] Influenza High Dose Unknown Completed [facility] Influenza Virus Vaccine Quad .5 mL IM 6+ MO (FLUZONE/FLULAVAL/F LUARIX) Unknown Completed [facility] TDAP (ADACEL) VACCINE Unknown Completed [facility] Influenza Virus Vaccine Recomb Quad IM, Preserv and ABX Free 18-64 YRS Unknown Completed [facility] SARS-COV-2 COVID-19 PFIZER VACCINE Unknown Completed [facility] SARS-COV-2 COVID-19 PFIZER VACCINE Unknown Completed [facility] Influenza Virus Vaccine Quad IM, Preserv and ABX Free 6 MO-64 YRS (FLUCELVAX) Unknown Completed [facility] Pneumococcal Polysaccharide, PPSV23 (PNEUMOVAX) Unknown Completed [facility] Influenza Virus Vaccine Unknown Completed [facility] Influenza Virus Vaccine Unknown Completed [facility] H1n1 Vaccine Unknown Completed [facility] Influenza Virus Vaccine Unknown Completed [facility] Influenza Virus Vaccine Unknown Completed [facility] Hep B, Adol or Pedi Dosage Unknown Completed [facility] Influenza Virus Vaccine Quad IM 3+ YRS Unknown Completed [facility] Influenza High Dose Unknown Completed [facility] Influenza High Dose Unknown Completed [facility] Influenza High Dose Unknown Completed [facility] Influenza High Dose Unknown Completed [facility] Influenza Virus Vaccine Quad .5 mL IM 6+ MO (FLUZONE/FLULAVAL/F LUARIX) Unknown Completed [facility] TDAP (ADACEL) VACCINE Unknown Completed [facility] Influenza Virus Vaccine Recomb Quad IM, Preserv and ABX Free 18-64 YRS Unknown Completed [facility] SARS-COV-2 COVID-19 PFIZER VACCINE Unknown Completed [facility] SARS-COV-2 COVID-19 PFIZER VACCINE Unknown Completed [facility] Influenza Virus Vaccine Quad IM, Preserv and ABX Free 6 MO-64 YRS (FLUCELVAX) Unknown Completed [facility] Pneumococcal Polysaccharide, PPSV23 (PNEUMOVAX) Unknown Completed [facility] Influenza Virus Vaccine Unknown Completed [facility] Influenza Virus Vaccine Unknown Completed [facility] H1n1 Vaccine Unknown Com[facility]ine [facility] Completed [facility] Influenza Virus Vaccine Unknown Completed [facility] Hep B, Adol or Pedi Dosage Unknown Completed [facility] Influenza Virus Vaccine Quad IM 3+ YRS Unknown Completed [facility] Influenza High Dose Unknown Completed [facility] Influenza High Dose Unknown Completed [facility] Influenza High Dose Unknown Completed [facility] Influenza High Dose Unknown Completed [facility] Influenza Virus Vaccine Quad .5 mL IM 6+ MO (FLUZONE/FLULAVAL/F LUARIX) Unknown Completed [facility] TDAP (ADACEL) VACCINE Unknown Completed [facility] Influenza Virus Vaccine Recomb Quad IM, Preserv and ABX Free 18-64 YRS Unknown Completed [facility] SARS-COV-2 COVID-19 PFIZER VACCINE Unknown Completed [facility] SARS-COV-2 COVID-19 PFIZER VACCINE Unknown Completed [facility] Influenza Virus Vaccine Quad IM, Preserv and ABX Free 6 MO-64 YRS (FLUCELVAX) Unknown Completed [facility] Pneumococcal Polysaccharide, PPSV23 (PNEUMOVAX) [facility] Influ[facility] Vaccine Unknown Completed [facility] Influenza Virus Vaccine Unknown Completed [facility] H1n1 Vaccine Unknown Completed [facility] Influenza Virus Vaccine Unknown Completed [facility] Influenza Virus Vaccine Unknown Completed [facility] Hep B, Adol or Pedi Dosage Unknown Completed [facility] Influenza Virus Vaccine Quad IM 3+ YRS Unknown Completed [facility] Influenza High Dose Unknown Completed [facility] Influenza High Dose Unknown Completed [facility] Influenza High Dose Unknown Completed [facility] Influenza High Dose Unknown Completed [facility] Influenza Virus Vaccine Quad .5 mL IM 6+ MO (FLUZONE/FLULAVAL/F LUARIX) Unknown Completed [facility] TDAP (ADACEL) VACCINE Unknown Completed [facility] Influenza Virus Vaccine Recomb Quad IM, Preserv and ABX Free 18-64 YRS Unknown Completed [facility] SARS-COV-2 COVID-19 PFIZER VACCINE Unknown Completed [facility] SARS-COV-2 COVID-19 PFIZER VACCINE Unknown Completed [facility] Influenza Virus Vaccine Quad IM, Preserv and ABX Free 6 MO-64 YRS (FLUCELVAX) Unknown Completed [facility] Pneumococcal Polysaccharide, PPSV23 (PNEUMOVAX) Unknown Completed [facility] Influenza Virus Vaccine Unknown Completed [facility] Influenza Virus Vaccine Unknown Completed [facility] H1n1 Vaccine Unknown Completed [facility] Influenza Virus Vaccine Unknown Completed [facility] Influenza Virus Vaccine Unknown Completed [facility] Hep B, Adol or Pedi Dosage Unknown Completed [facility] Influenza Virus Vaccine Quad IM 3+ YRS Unknown Completed [facility] Influenza High Dose Unknown Completed [facility] Influenza High Dose Unknown Completed [facility] Influenza High Dose Unknown Completed [facility] Influenza High Dose Unknown Completed [facility] Influenza Virus Vaccine Quad .5 mL IM 6+ MO (FLUZONE/FLULAVAL/F LUARIX) Unknown Completed [facility] TDAP (ADACEL) VACCINE Unknown Completed [facility] Influenza Virus Vaccine Recomb Quad IM, Preserv and ABX Free 18-64 YRS Unknown Completed [facility] SARS-COV-2 COVID-19 PFIZER VACCINE Unknown Completed [facility] SARS-COV-2 COVID-19 PFIZER VACCINE Unknown Completed [facility] Influenza Virus Vaccine Quad IM, Preserv and ABX Free 6 MO-64 YRS (FLUCELVAX) Unknown Completed [facility] Pneumococcal Polysaccharide, PPSV23 (PNEUMOVAX) Unknown Completed [facility] Influenza Virus Vaccine Unknown Completed [facility] Influenza Virus Vaccine Unknown Completed [facility] H1n1 Vaccine Unknown Completed [facility] Influenza Virus Vaccine Unknown Completed [facility] Influenza Virus Vaccine Unknown Completed [facility] Hep B, Adol or Pedi Dosage Unknown Completed [facility] Influenza Virus Vaccine Quad IM 3+ YRS Unknown Completed [facility] Influenza High Dose Unknown Completed [facility] Influenza High Dose Unknown Completed [facility] Influenza High Dose Unknown Completed [facility] Influenza High Dose Unknown Completed [facility] Influenza Virus Vaccine Quad .5 mL IM 6+ MO (FLUZONE/FLULAVAL/F LUARIX) Unknown Completed [facility] TDAP (ADACEL) VACCINE Unknown Completed [facility] Influenza Virus Vaccine Recomb Quad IM, Preserv and ABX Free 18-64 YRS Unknown Completed [facility] SARS-COV-2 COVID-19 PFIZER VACCINE Unknown Completed [facility] SARS-COV-2 COVID-19 PFIZER VACCINE Unknown Completed [facility] Influenza Virus Vaccine Quad IM, Preserv and ABX Free 6 MO-64 YRS (FLUCELVAX) Unknown Completed [facility] Pneumococcal Polysaccharide, PPSV23 (PNEUMOVAX) Unknown Completed [facility] Influenza Virus Vaccine Unknown Completed [facility] Influenza Virus Vaccine Unknown Completed [facility] H1n1 Vaccine Unknown Completed [facility] Influenza Virus Vaccine Unknown Completed [facility] Influenza Virus Vaccine Unknown Completed [facility] Hep B, Adol or Pedi Dosage Unknown Completed [facility] Influenza Virus Vaccine Quad IM 3+ YRS Unknown Completed [facility] Influenza High Dose Unknown Completed [facility] Influenza High Dose Unknown Completed [facility] Influenza High Dose Unknown Completed [facility] Influenza High Dose Unknown Completed [facility] Influenza Virus Vaccine Quad .5 mL IM 6+ MO (FLUZONE/FLULAVAL/F LUARIX) Unknown Completed [facility] TDAP (ADACEL) VACCINE Unknown Completed [facility] Influenza Virus Vaccine Recomb Quad IM, Preserv and ABX Free 18-64 YRS Unknown Completed [facility] SARS-COV-2 COVID-19 PFIZER VACCINE Unknown Completed [facility] SARS-COV-2 COVID-19 PFIZER VACCINE Unknown Completed [facility] Influenza Virus Vaccine Quad IM, Preserv and ABX Free 6 MO-64 YRS (FLUCELVAX) Unknown Completed [facility] Pneumococcal Polysaccharide, PPSV23 (PNEUMOVAX) Unknown Completed [facility] Influenza Virus Vaccine Unknown Completed [facility] Influenza Virus Vaccine Unknown Completed [facility] H1n1 Vaccine Unknown [facility]ine [facility] Completed [facility] Influenza Virus Vaccine Unknown Completed [facility] Hep B, Adol or Pedi Dosage Unknown Completed [facility] Influenza Virus Vaccine Quad IM 3+ YRS Unknown Completed [facility] Influenza High Dose Unknown Completed [facility] Influenza High Dose Unknown Completed [facility] Influenza High Dose Unknown Completed [facility] Influenza High Dose Unknown Completed [facility] Influenza Virus Vaccine Quad .5 mL IM 6+ MO (FLUZONE/FLULAVAL/F LUARIX) Unknown Completed [facility] TDAP (ADACEL) VACCINE Unknown Completed [facility] Influenza Virus Vaccine Recomb Quad IM, Preserv and ABX Free 18-64 YRS Unknown Completed [facility] SARS-COV-2 COVID-19 PFIZER VACCINE Unknown Completed [facility] SARS-COV-2 COVID-19 PFIZER VACCINE Unknown Completed [facility] Influenza Virus Vaccine Quad IM, Preserv and ABX Free 6 MO-64 YRS (FLUCELVAX) Unknown Completed [facility] Pneumococcal Polysaccharide, PPSV23 (PNEUMOVAX) Unknown Completed [facility] Influenza Virus Vaccine Unknown Completed [facility] Influenza Virus Vaccine Unknown Completed [facility] H1n1 Vaccine Unknown Completed [facility] Influenza Virus Vaccine Unknown Completed [facility] Influenza Virus Vaccine Unknown Completed [facility] Hep B, Adol or Pedi Dosage Unknown Completed [facility] Influenza Virus Vaccine Quad IM 3+ YRS Unknown Completed [facility] Influenza High Dose Unknown Completed [facility] Influenza High Dose Unknown Completed [facility] Influenza High Dose Unknown Completed [facility] Influenza High Dose Unknown Completed [facility] Influenza Virus Vaccine Quad .5 mL IM 6+ MO (FLUZONE/FLULAVAL/F LUARIX) Unknown Completed [facility] TDAP (ADACEL) VACCINE Unknown Completed [facility] Influenza Virus Vaccine Recomb Quad IM, Preserv and ABX Free 18-64 YRS Unknown Completed [facility] SARS-COV-2 COVID-19 PFIZER VACCINE Unknown Completed [facility] SARS-COV-2 COVID-19 PFIZER VACCINE Unknown Completed [facility] Influenza Virus Vaccine Quad IM, Preserv and ABX Free 6 MO-64 YRS (FLUCELVAX) Unknown Completed [facility] Pneumococcal Polysaccharide, PPSV23 (PNEUMOVAX) Unknown Completed [facility] Influenza Virus Vaccine Unknown Completed [facility] Influenza Virus Vaccine Unknown Completed [facility] H1n1 Vaccine Unknown Completed [facility] Influenza Virus Vaccine Unknown Completed [facility] Influenza Virus Vaccine Unknown Completed [facility] Hep B, Adol or Pedi Dosage Unknown Completed [facility] Influenza Virus Vaccine Quad IM 3+ YRS Unknown Completed [facility] Influenza High Dose Unknown Completed [facility] Influenza High Dose Unknown Completed [facility] Influenza High Dose Unknown Completed [facility] Influenza High Dose Unknown Completed [facility] Influenza Virus Vaccine Quad .5 mL IM 6+ MO (FLUZONE/FLULAVAL/F LUARIX) Unknown Completed [facility] TDAP (ADACEL) VACCINE Unknown Completed [facility] Influenza Virus Vaccine Recomb Quad IM, Preserv and ABX Free 18-64 YRS Unknown Completed [facility] SARS-COV-2 COVID-19 PFIZER VACCINE Unknown Completed [facility] SARS-COV-2 COVID-19 PFIZER VACCINE Unknown Completed [facility] Influenza Virus Vaccine Quad IM, Preserv and ABX Free 6 MO-64 YRS (FLUCELVAX) Unknown Completed [facility] Pneumococcal Polysaccharide, PPSV23 (PNEUMOVAX) Unknown Completed [facility] Influenza Virus Vaccine Unknown Completed [facility] Influenza Virus Vaccine Unknown Completed [facility] H1n1 Vaccine Unknown Completed [facility] Influenza Virus Vaccine Unknown Completed [facility] Influenza Virus Vaccine Unknown Completed [facility] Hep B, Adol or Pedi Dosage Unknown Completed [facility] Influenza Virus Vaccine Quad IM 3+ YRS Unknown Completed [facility] Influenza High Dose Unknown Completed [facility] Influenza High Dose Unknown Completed [facility] Influenza High Dose Unknown Completed [facility] Influenza High Dose Unknown Completed [facility] Influenza Virus Vaccine Quad .5 mL IM 6+ MO (FLUZONE/FLULAVAL/F LUARIX) Unknown Completed [facility] TDAP (ADACEL) VACCINE Unknown Completed [facility] Influenza Virus Vaccine Recomb Quad IM, Preserv and ABX Free 18-64 YRS Unknown Completed [facility] SARS-COV-2 COVID-19 PFIZER VACCINE Unknown Completed [facility] SARS-COV-2 COVID-19 PFIZER VACCINE Unknown Completed [facility] Influenza Virus Vaccine Quad IM, Preserv and ABX Free 6 MO-64 YRS (FLUCELVAX) Unknown Completed [facility] Pneumococcal Polysaccharide, PPSV23 (PNEUMOVAX) Unknown Completed [facility] Influenza Virus Vaccine Unknown Completed [facility] Influenza Virus Vaccine Unknown Completed [facility] H1n1 Vaccine Unknown Completed [facility] Influenza Virus Vaccine Unknown Completed [facility] Influenza Virus Vaccine Unknown Completed [facility] Hep B, Adol or Pedi Dosage Unknown Completed [facility] Influenza Virus Vaccine Quad IM 3+ YRS Unknown Completed [facility] Influenza High Dose Unknown Completed [facility] Influenza High Dose Unknown Completed [facility] Influenza High Dose Unknown Completed [facility] Influenza High Dose Unknown Completed [facility] Influenza Virus Vaccine Quad .5 mL IM 6+ MO (FLUZONE/FLULAVAL/F LUARIX) Unknown Completed [facility] TDAP (ADACEL) VACCINE Unknown Completed [facility] Influenza Virus Vaccine Recomb Quad IM, Preserv and ABX Free 18-64 YRS Unknown Completed [facility] SARS-COV-2 COVID-19 PFIZER VACCINE Unknown Completed [facility] SARS-COV-2 COVID-19 PFIZER VACCINE Unknown Completed [facility] Influenza Virus Vaccine Quad IM, Preserv and ABX Free 6 MO-64 YRS (FLUCELVAX) Unknown Completed [facility] Pneumococcal Polysaccharide, PPSV23 (PNEUMOVAX) Unknown Completed [facility] Influenza Virus Vaccine Unknown Completed [facility] Influenza Virus Vaccine Unknown Completed [facility] H1n1 Vaccine Unknown Completed [facility] Influenza Virus Vaccine Unknown Completed [facility] Influenza Virus Vaccine Unknown Completed [facility] Hep B, Adol or Pedi Dosage Unknown Completed [facility] Influenza Virus Vaccine Quad IM 3+ YRS Unknown Completed [facility] Influenza High Dose Unknown Completed [facility] Influenza High Dose Unknown Completed [facility] Influenza High Dose Unknown Completed [facility] Influenza High Dose Unknown Completed [facility] Influenza Virus Vaccine Quad .5 mL IM 6+ MO (FLUZONE/FLULAVAL/F LUARIX) Unknown Completed [facility] TDAP (ADACEL) VACCINE Unknown Completed [facility] Influenza Virus Vaccine Recomb Quad IM, Preserv and ABX Free 18-64 YRS Unknown Completed [facility] SARS-COV-2 COVID-19 PFIZER VACCINE Unknown Completed [facility] SARS-COV-2 COVID-19 PFIZER VACCINE Unknown Completed [facility] Influenza Virus Vaccine Quad IM, Preserv and ABX Free 6 MO-64 YRS (FLUCELVAX) Unknown Completed [facility] Pneumococcal Polysaccharide, PPSV23 (PNEUMOVAX) Unknown Completed [facility] Influenza Virus Vaccine Unknown Completed [facility] Influenza Virus Vaccine Unknown Completed [facility] H1n1 Vaccine Unknown Completed [facility] Influenza Virus Vaccine Unknown Completed [facility] Influenza Virus Vaccine Unknown Completed [facility] Hep B, Adol or Pedi Dosage Unknown Completed [facility] Influenza Virus Vaccine Quad IM 3+ YRS Unknown Completed [facility] Influenza High Dose Unknown Completed [facility] Influenza High Dose Unknown Completed [facility] Influenza High Dose Unknown Completed [facility] Influenza High Dose Unknown Completed [facility] Influenza Virus Vaccine Quad .5 mL IM 6+ MO (FLUZONE/FLULAVAL/F LUARIX) Unknown Completed [facility] TDAP (ADACEL) VACCINE Unknown Completed [facility] Influenza Virus Vaccine Recomb Quad IM, Preserv and ABX Free 18-64 YRS Unknown Completed [facility] SARS-COV-2 COVID-19 PFIZER VACCINE Unknown Completed [facility] SARS-COV-2 COVID-19 PFIZER VACCINE Unknown Completed [facility] Influenza Virus Vaccine Quad IM, Preserv and ABX Free 6 MO-64 YRS (FLUCELVAX) Unknown Completed [facility] Pneumococcal Polysaccharide, PPSV23 (PNEUMOVAX) Unknown Completed [facility] Influenza Virus Vaccine Unknown Completed [facility] Influenza Virus Vaccine Unknown Completed [facility] H1n1 Vaccine Unknown Completed [facility] Influenza Virus Vaccine Unknown Completed [facility] Influenza Virus Vaccine Unknown Completed [facility] Hep B, Adol or Pedi Dosage Unknown Completed [facility] Influenza Virus Vaccine Quad IM 3+ YRS Unknown Completed [facility] Influenza High Dose Unknown Completed [facility] Influenza High Dose Unknown Completed [facility] Influenza High Dose Unknown Completed [facility] Influenza High Dose Unknown Completed [facility] Influenza Virus Vaccine Quad .5 mL IM 6+ MO (FLUZONE/FLULAVAL/F LUARIX) Unknown Completed [facility] TDAP (ADACEL) VACCINE Unknown Completed [facility] Influenza Virus Vaccine Recomb Quad IM, Preserv and ABX Free 18-64 YRS Unknown Completed [facility] SARS-COV-2 COVID-19 PFIZER VACCINE Unknown Completed [facility] SARS-COV-2 COVID-19 PFIZER VACCINE Unknown Completed [facility] Influenza Virus Vaccine Quad IM, Preserv and ABX Free 6 MO-64 YRS (FLUCELVAX) Unknown Completed [facility] Pneumococcal Polysaccharide, PPSV23 (PNEUMOVAX) Unknown Completed [facility] Influenza Virus Vaccine Unknown Completed [facility] Influenza Virus Vaccine Unknown Completed [facility] H1n1 Vaccine Unknown Completed [facility] Influenza Virus Vaccine Unknown Completed [facility] Influenza Virus Vaccine Unknown Completed [facility] Hep B, Adol or Pedi Dosage Unknown Completed [facility] Influenza Virus Vaccine Quad IM 3+ YRS Unknown Completed [facility] Influenza High Dose Unknown Completed [facility] Influenza High Dose Unknown Completed [facility] Influenza High Dose Unknown Completed [facility] Influenza High Dose Unknown Completed [facility] Influenza Virus Vaccine Quad .5 mL IM 6+ MO (FLUZONE/FLULAVAL/F LUARIX) Unknown Completed [facility] TDAP (ADACEL) VACCINE Unknown Completed [facility] Influenza Virus Vaccine Recomb Quad IM, Preserv and ABX Free 18-64 YRS Unknown Completed [facility] SARS-COV-2 COVID-19 PFIZER VACCINE Unknown Completed [facility] SARS-COV-2 COVID-19 PFIZER VACCINE Unknown Completed [facility] Influenza Virus Vaccine Quad IM, Preserv and ABX Free 6 MO-64 YRS (FLUCELVAX) Unknown Completed [facility] Pneumococcal Polysaccharide, PPSV23 (PNEUMOVAX) Unknown Completed [facility] Influenza Virus Vaccine Unknown Completed [facility] Influenza Virus Vaccine Unknown Completed [facility] H1n1 Vaccine Unknown Com[facility]ine [facility] Completed [facility] Influenza Virus Vaccine Unknown Completed [facility] Hep B, Adol or Pedi Dosage Unknown Completed [facility] Influenza Virus Vaccine Quad IM 3+ YRS Unknown Completed [facility] Influenza High Dose Unknown Completed [facility] Influenza High Dose Unknown Completed [facility] Influenza High Dose Unknown Completed [facility] Influenza High Dose Unknown Completed [facility] Influenza Virus Vaccine Quad .5 mL IM 6+ MO (FLUZONE/FLULAVAL/F LUARIX) Unknown Completed [facility] TDAP (ADACEL) VACCINE Unknown Completed [facility] Influenza Virus Vaccine Recomb Quad IM, Preserv and ABX Free 18-64 YRS Unknown Completed [facility] SARS-COV-2 COVID-19 PFIZER VACCINE Unknown Completed [facility] SARS-COV-2 COVID-19 PFIZER VACCINE Unknown Completed [facility] Influenza Virus Vaccine Quad IM, Preserv and ABX Free 6 MO-64 YRS (FLUCELVAX) Unknown Completed [facility] Pneumococcal Polysaccharide, PPSV23 (PNEUMOVAX) Unknown Completed [facility] Influenza Virus Vaccine Unknown Completed [facility] Influenza Virus Vaccine Unknown Completed [facility] H1n1 Vaccine Unknown Completed [facility] Influenza Virus Vaccine Unknown Completed [facility] Influenza Virus Vaccine Unknown Completed [facility] Hep B, Adol or Pedi Dosage Unknown Completed [facility] Influenza Virus Vaccine Quad IM 3+ YRS Unknown Completed [facility] Influenza High Dose Unknown Completed [facility] Influenza High Dose Unknown Completed [facility] Influenza High Dose Unknown Completed [facility] Influenza High Dose Unknown Completed [facility] Influenza Virus Vaccine Quad .5 mL IM 6+ MO (FLUZONE/FLULAVAL/F LUARIX) Unknown Completed [facility] TDAP (ADACEL) VACCINE Unknown Completed [facility] Influenza Virus Vaccine Recomb Quad IM, Preserv and ABX Free 18-64 YRS Unknown Completed [facility] SARS-COV-2 COVID-19 PFIZER VACCINE Unknown Completed [facility] SARS-COV-2 COVID-19 PFIZER VACCINE Unknown Completed [facility] Influenza Virus Vaccine Quad IM, Preserv and ABX Free 6 MO-64 YRS (FLUCELVAX) Unknown Completed [facility] Pneumococcal Polysaccharide, PPSV23 (PNEUMOVAX) Unknown Completed [facility] Influenza Virus Vaccine Unknown Completed [facility] Influenza Virus Vaccine Unknown Completed [facility] H1n1 Vaccine Unknown Completed [facility] Influenza Virus Vaccine Unknown Completed [facility] Influenza Virus Vaccine Unknown Completed [facility] Hep B, Adol or Pedi Dosage Unknown Completed [facility] Influenza Virus Vaccine Quad IM 3+ YRS Unknown Completed [facility] Influenza High Dose Unknown Completed [facility] Influenza High Dose Unknown Completed [facility] Influenza High Dose Unknown Completed [facility] Influenza High Dose Unknown Completed [facility] Influenza Virus Vaccine Quad .5 mL IM 6+ MO (FLUZONE/FLULAVAL/F LUARIX) Unknown Completed [facility] TDAP (ADACEL) VACCINE Unknown Completed [facility] Influenza Virus Vaccine Recomb Quad IM, Preserv and ABX Free 18-64 YRS Unknown [facility] [facility] SARS[facility]OV[facility]2 COVID-19 PFIZER VACCINE Unknown Completed [facility] SARS-COV-2 COVID-19 PFIZER VACCINE Unknown Completed [facility] Influenza Virus Vaccine Quad IM, Preserv and ABX Free 6 MO-64 YRS (FLUCELVAX) Unknown Completed [facility] Pneumococcal Polysaccharide, PPSV23 (PNEUMOVAX) Unknown Completed [facility] Influenza Virus Vaccine Unknown Completed [facility] Influenza Virus Vaccine Unknown Completed [facility] H1n1 Vaccine Unknown Completed [facility] Influenza Virus Vaccine Unknown Completed [facility] Influenza Virus Vaccine Unknown Completed [facility] Hep B, Adol or Pedi Dosage Unknown Completed [facility] Influenza Virus Vaccine Quad IM 3+ YRS Unknown Completed [facility] Influenza High Dose Unknown Completed [facility] Influenza High Dose Unknown Completed [facility] Influenza High Dose Unknown Completed [facility] Influenza High Dose Unknown Completed [facility] Influenza Virus Vaccine Quad .5 mL IM 6+ MO (FLUZONE/FLULAVAL/F LUARIX) Unknown Completed [facility] TDAP (ADACEL) VACCINE Unknown Completed [facility] Influenza Virus Vaccine Recomb Quad IM, Preserv and ABX Free 18-64 YRS Unknown Completed [facility] SARS-COV-2 COVID-19 PFIZER VACCINE Unknown Completed [facility] SARS-COV-2 COVID-19 PFIZER VACCINE Unknown Completed [facility] Influenza Virus Vaccine Quad IM, Preserv and ABX Free 6 MO-64 YRS (FLUCELVAX) Unknown Completed [facility] Pneumococcal Polysaccharide, PPSV23 (PNEUMOVAX) Unknown [facility] Influenza Virus Vaccine Unknown Completed [facility] Influenza Virus Vaccine Unknown Completed [facility] H1n1 Vaccine Unknown Completed [facility] Influenza Virus Vaccine Unknown Completed [facility] Influenza Virus Vaccine Unknown Completed [facility] Hep B, Adol or Pedi Dosage Unknown Completed [facility] Influenza Virus Vaccine Quad IM 3+ YRS Unknown Completed [facility] Influenza High Dose Unknown Completed [facility] Influenza High Dose Unknown Completed [facility] Influenza High Dose Unknown Completed [facility] Influenza High Dose Unknown Completed [facility] Influenza Virus Vaccine Quad .5 mL IM 6+ MO (FLUZONE/FLULAVAL/F LUARIX) Unknown Completed [facility] TDAP (ADACEL) VACCINE Unknown Completed [facility] Influenza Virus Vaccine Recomb Quad IM, Preserv and ABX Free 18-64 YRS Unknown Completed [facility] SARS-COV-2 COVID-19 PFIZER VACCINE Unknown Completed [facility] SARS-COV-2 COVID-19 PFIZER VACCINE Unknown Completed [facility] Influenza Virus Vaccine Quad IM, Preserv and ABX Free 6 MO-64 YRS (FLUCELVAX) Unknown Completed [facility] Pneumococcal Polysaccharide, PPSV23 (PNEUMOVAX) Unknown [facility] Influ[facility] Virus Vaccine Unknown Completed [facility] Influenza Virus Vaccine Unknown Completed [facility] H1n1 Vaccine Unknown Completed [facility] Influenza Virus Vaccine Unknown Completed [facility] Influenza Virus Vaccine Unknown Completed [facility] Hep B, Adol or Pedi Dosage Unknown Completed [facility] Influenza Virus Vaccine Quad IM 3+ YRS Unknown Completed [facility] Influenza High Dose Unknown Completed [facility] Influenza High Dose Unknown Completed [facility] Influenza High Dose Unknown Completed [facility] Influenza High Dose Unknown Completed [facility] Influenza Virus Vaccine Quad .5 mL IM 6+ MO (FLUZONE/FLULAVAL/F LUARIX) Unknown Completed [facility] TDAP (ADACEL) VACCINE Unknown Completed [facility] Influenza Virus Vaccine Recomb Quad IM, Preserv and ABX Free 18-64 YRS Unknown Completed [facility] SARS-COV-2 COVID-19 PFIZER VACCINE Unknown Completed [facility] SARS-COV-2 COVID-19 PFIZER VACCINE Unknown Completed [facility] Influenza Virus Vaccine Quad IM, Preserv and ABX Free 6 MO-64 YRS (FLUCELVAX) Unknown Completed [facility] Pneumococcal Polysaccharide, PPSV23 (PNEUMOVAX) Unknown Completed [facility] Influenza Virus Vaccine Unknown Completed [facility] Influenza Virus Vaccine Unknown Completed [facility] H1n1 Vaccine Unknown Completed [facility] Influenza Virus Vaccine Unknown Completed [facility] Influenza Virus Vaccine Unknown Completed [facility] Hep B, Adol or Pedi Dosage Unknown Completed [facility] Influenza Virus Vaccine Quad IM 3+ YRS Unknown Completed [facility] Influenza High Dose Unknown Completed [facility] Influenza High Dose Unknown Completed [facility] Influenza High Dose Unknown Completed [facility] Influenza High Dose Unknown Completed [facility] Influenza Virus Vaccine Quad .5 mL IM 6+ MO (FLUZONE/FLULAVAL/F LUARIX) Unknown Completed [facility] TDAP (ADACEL) VACCINE Unknown Completed [facility] Influenza Virus Vaccine Recomb Quad IM, Preserv and ABX Free 18-64 YRS Unknown Completed [facility] SARS-COV-2 COVID-19 PFIZER VACCINE Unknown Completed [facility] SARS-COV-2 COVID-19 PFIZER VACCINE Unknown Completed [facility] Influenza Virus Vaccine Quad IM, Preserv and ABX Free 6 MO-64 YRS (FLUCELVAX) Unknown Completed [facility] Pneumococcal Polysaccharide, PPSV23 (PNEUMOVAX) Unknown Completed [facility] Influenza Virus Vaccine Unknown Completed [facility] Influenza Virus Vaccine Unknown Completed [facility] H1n1 Vaccine Unknown Completed [facility] Influenza Virus Vaccine Unknown Completed [facility] Influenza Virus Vaccine Unknown Completed [facility] Hep B, Adol or Pedi Dosage Unknown Completed [facility] Influenza Virus Vaccine Quad IM 3+ YRS Unknown Completed [facility] Influenza High Dose Unknown Completed [facility] Influenza High Dose Unknown Completed [facility] Influenza High Dose Unknown Completed [facility] Influenza High Dose Unknown Completed [facility] Influenza Virus Vaccine Quad .5 mL IM 6+ MO (FLUZONE/FLULAVAL/F LUARIX) Unknown Completed [facility] TDAP (ADACEL) VACCINE Unknown Completed [facility] Influenza Virus Vaccine Recomb Quad IM, Preserv and ABX Free 18-64 YRS Unknown Completed [facility] SARS-COV-2 COVID-19 PFIZER VACCINE Unknown Completed [facility] SARS-COV-2 COVID-19 PFIZER VACCINE Unknown Completed [facility] Influenza Virus Vaccine Quad IM, Preserv and ABX Free 6 MO-64 YRS (FLUCELVAX) Unknown Completed [facility] Pneumococcal Polysaccharide, PPSV23 (PNEUMOVAX) Unknown Completed [facility] Influenza Virus Vaccine Unknown Completed [facility] Influenza Virus Vaccine Unknown Completed [facility] H1n1 Vaccine Unknown Completed [facility] Influenza Virus Vaccine Unknown Completed [facility] Influenza Virus Vaccine Unknown Completed [facility] Hep B, Adol or Pedi Dosage Unknown Completed [facility] Influenza Virus Vaccine Quad IM 3+ YRS Unknown Completed [facility] Influenza High Dose Unknown Completed [facility] Influenza High Dose Unknown Completed [facility] Influenza High Dose Unknown Completed [facility] Influenza High Dose Unknown Completed [facility] Influenza Virus Vaccine Quad .5 mL IM 6+ MO (FLUZONE/FLULAVAL/F LUARIX) Unknown Completed [facility] TDAP (ADACEL) VACCINE Unknown Completed [facility] Influenza Virus Vaccine Recomb Quad IM, Preserv and ABX Free 18-64 YRS Unknown Completed [facility] SARS-COV-2 COVID-19 PFIZER VACCINE Unknown Completed [facility] SARS-COV-2 COVID-19 PFIZER VACCINE Unknown Completed [facility] Influenza Virus Vaccine Quad IM, Preserv and ABX Free 6 MO-64 YRS (FLUCELVAX) Unknown Completed [facility] Pneumococcal Polysaccharide, PPSV23 (PNEUMOVAX) Unknown Completed [facility] Influenza Virus Vaccine Unknown Completed [facility] Influenza Virus Vaccine Unknown Completed [facility] H1n1 Vaccine Unknown Completed [facility] Influenza Virus Vaccine Unknown Completed [facility] Influenza Virus Vaccine Unknown Completed [facility] Hep B, Adol or Pedi Dosage Unknown Completed [facility] Influenza Virus Vaccine Quad IM 3+ YRS Unknown Completed [facility] Influenza High Dose Unknown Completed [facility] Influenza High Dose Unknown Completed [facility] Influenza High Dose Unknown Completed [facility] Influenza High Dose Unknown Completed [facility] Influenza Virus Vaccine Quad .5 mL IM 6+ MO (FLUZONE/FLULAVAL/F LUARIX) Unknown Completed [facility] TDAP (ADACEL) VACCINE Unknown Completed [facility] Influenza Virus Vaccine Recomb Quad IM, Preserv and ABX Free 18-64 YRS Unknown Completed [facility] SARS-COV-2 COVID-19 PFIZER VACCINE Unknown Completed [facility] SARS-COV-2 COVID-19 PFIZER VACCINE Unknown Completed [facility] Influenza Virus Vaccine Quad IM, Preserv and ABX Free 6 MO-64 YRS (FLUCELVAX) Unknown Completed [facility] Pneumococcal Polysaccharide, PPSV23 (PNEUMOVAX) Unknown Completed [facility] Influenza Virus Vaccine Unknown Completed [facility] Influenza Virus Vaccine Unknown Completed [facility] H1n1 Vaccine Unknown Completed [facility] Influenza Virus Vaccine Unknown Completed [facility] Influenza Virus Vaccine Unknown Completed [facility] Hep B, Adol or Pedi Dosage Unknown Completed [facility] Influenza Virus Vaccine Quad IM 3+ YRS Unknown Completed [facility] Influenza High Dose Unknown Completed [facility] Influenza High Dose Unknown Completed [facility] Influenza High Dose Unknown Completed [facility] Influenza High Dose Unknown Completed [facility] Influenza Virus Vaccine Quad .5 mL IM 6+ MO (FLUZONE/FLULAVAL/F LUARIX) Unknown Completed [facility] TDAP (ADACEL) VACCINE Unknown Completed [facility] Influenza Virus Vaccine Recomb Quad IM, Preserv and ABX Free 18-64 YRS Unknown Completed [facility] SARS-COV-2 COVID-19 PFIZER VACCINE Unknown Completed [facility] SARS-COV-2 COVID-19 PFIZER VACCINE Unknown Completed [facility] Influenza Virus Vaccine Quad IM, Preserv and ABX Free 6 MO-64 YRS (FLUCELVAX) Unknown Completed [facility] Pneumococcal Polysaccharide, PPSV23 (PNEUMOVAX) Unknown Completed [facility] Influenza Virus Vaccine Unknown Completed [facility] Influenza Virus Vaccine Unknown Completed [facility] H1n1 Vaccine Unknown Completed [facility] Influenza Virus Vaccine Unknown Completed [facility] Influenza Virus Vaccine Unknown Completed [facility] Hep B, Adol or Pedi Dosage Unknown Completed [facility] Influenza Virus Vaccine Quad IM 3+ YRS Unknown Completed [facility] Influenza High Dose Unknown Completed [facility] Influenza High Dose Unknown Completed [facility] Influenza High Dose Unknown Completed [facility] Influenza High Dose Unknown Completed [facility] Influenza Virus Vaccine Quad .5 mL IM 6+ MO (FLUZONE/FLULAVAL/F LUARIX) Unknown Completed [facility] TDAP (ADACEL) VACCINE Unknown Completed [facility] Influenza Virus Vaccine Recomb Quad IM, Preserv and ABX Free 18-64 YRS Unknown Completed [facility] SARS-COV-2 COVID-19 PFIZER VACCINE Unknown Completed [facility] SARS-COV-2 COVID-19 PFIZER VACCINE Unknown Completed [facility] Influenza Virus Vaccine Quad IM, Preserv and ABX Free 6 MO-64 YRS (FLUCELVAX) Unknown Completed [facility] Pneumococcal Polysaccharide, PPSV23 (PNEUMOVAX) Unknown Completed [facility] Influenza Virus Vaccine Unknown Completed [facility] Influenza Virus Vaccine Unknown Completed [facility] H1n1 Vaccine Unknown Completed [facility] Influenza Virus Vaccine Unknown Completed [facility] Influenza Virus Vaccine Unknown Completed [facility] Hep B, Adol or Pedi Dosage Unknown Completed [facility] Influenza Virus Vaccine Quad IM 3+ YRS Unknown Completed [facility] Influenza High Dose Unknown Completed [facility] Influenza High Dose Unknown Completed [facility] Influenza High Dose Unknown Completed [facility] Influenza High Dose Unknown Completed [facility] Influenza Virus Vaccine Quad .5 mL IM 6+ MO (FLUZONE/FLULAVAL/F LUARIX) Unknown Completed [facility] TDAP (ADACEL) VACCINE Unknown Completed [facility] Influenza Virus Vaccine Recomb Quad IM, Preserv and ABX Free 18-64 YRS Unknown Completed [facility] SARS-COV-2 COVID-19 PFIZER VACCINE Unknown Completed [facility] SARS-COV-2 COVID-19 PFIZER VACCINE Unknown Completed [facility] Influenza Virus Vaccine Quad IM, Preserv and ABX Free 6 MO-64 YRS (FLUCELVAX) Unknown Completed [facility] Pneumococcal Polysaccharide, PPSV23 (PNEUMOVAX) Unknown Completed [facility] Influenza Virus Vaccine Unknown Completed [facility] Influenza Virus Vaccine Unknown Completed [facility] H1n1 Vaccine Unknown Completed [facility] Influenza Virus Vaccine Unknown Completed [facility] Influenza Virus Vaccine Unknown Completed [facility] Hep B, Adol or Pedi Dosage Unknown Completed [facility] Influenza Virus Vaccine Quad IM 3+ YRS Unknown Completed [facility] Influenza High Dose Unknown Completed [facility] Influenza High Dose Unknown Completed [facility] Influenza High Dose Unknown Completed [facility] Influenza High Dose Unknown Completed [facility] Influenza Virus Vaccine Quad .5 mL IM 6+ MO (FLUZONE/FLULAVAL/F LUARIX) Unknown Completed [facility] TDAP (ADACEL) VACCINE Unknown Completed [facility] Influenza Virus Vaccine Recomb Quad IM, Preserv and ABX Free 18-64 YRS Unknown Completed [facility] SARS-COV-2 COVID-19 PFIZER VACCINE Unknown Completed [facility] SARS-COV-2 COVID-19 PFIZER VACCINE Unknown Completed [facility] Influenza Virus Vaccine Quad IM, Preserv and ABX Free 6 MO-64 YRS (FLUCELVAX) Unknown Completed [facility] Pneumococcal Polysaccharide, PPSV23 (PNEUMOVAX) Unknown Completed [facility] Vital Signs Vital Name Observation Time Observation Value Comments S ource Systolic blood pressure 2023-05-18 20:41:00 118 mm[Hg] [facility] Diastolic blood pressure 2023-05-18 20:41:00 84 mm[Hg] [facility] Heart rate 2023-05-18 20:41:00 99 /min [facility] Body temperature 2023-05-18 20:41:00 36.72 Juanita [facility] Respiratory rate 2023-05-18 20:41:00 18 /min [facility] Body height 2023-05-18 20:41:00 157.5 cm [facility] Body weight 2023-05-18 20:41:00 59.693 kg [facility] BMI 2023-05-18 20:41:00 24.07 kg/m2 [facility] Oxygen saturation in Arterial blood by Pulse oximetry 2023-05-18 20:41:00 99 /min [facility] Systolic blood pressure 2023-05-14 14:43:00 125 mm[Hg] [facility] Diastolic blood pressure 2023-05-14 14:43:00 97 mm[Hg] [facility] Heart rate 2023-05-14 14:43:00 87 /min [facility] Respiratory rate 2023-05-14 14:43:00 18 /min [facility] Oxygen saturation in Arterial blood by Pulse oximetry 2023-05-14 14:43:00 100 /min [facility] Body temperature 2023-05-14 11:19:00 36.22 Juanita [facility] Body weight 2023-05-14 11:19:00 67.586 kg [facility] BMI 2023-05-14 11:19:00 27.25 kg/m2 [facility] Systolic blood pressure 2023-03-28 16:16:00 152 mm[Hg] [facility] Diastolic blood pressure 2023-03-28 16:16:00 93 mm[Hg] [facility] Heart rate 2023-03-28 16:16:00 113 /min [facility] Oxygen saturation in Arterial blood by Pulse oximetry 2023-03-28 16:16:00 99 /min [facility] Body temperature 2023-03-28 16:15:00 36.78 Juanita [facility] Body height 2023-03-28 16:15:00 157.5 cm [facility] Body weight 2023-03-28 16:15:00 67.586 kg [facility] BMI 2023-03-28 16:15:00 27.25 kg/m2 [facility] Body temperature 2023-03-03 14:00:00 35.56 Juanita [facility] Body height 2023-03-03 14:00:00 157.5 cm [facility] Body weight 2023-03-03 14:00:00 67.586 kg [facility] BMI 2023-03-03 14:00:00 27.25 kg/m2 [facility] Systolic blood pressure 2023-02-28 13:10:00 134 mm[Hg] [facility] Diastolic blood pressure 2023-02-28 13:10:00 93 mm[Hg] [facility] Heart rate 2023-02-28 13:10:00 86 /min [facility] Oxygen saturation in Arterial blood by Pulse oximetry 2023-02-28 13:10:00 100 /min [facility] Body height 2023-02-28 13:09:00 157.5 cm [facility] Body weight 2023-02-28 13:09:00 66.225 kg [facility] BMI 2023-02-28 13:09:00 26.70 kg/m2 [facility] Systolic blood pressure 2023-02-21 16:52:00 118 mm[Hg] [facility] Diastolic blood pressure 2023-02-21 16:52:00 80 mm[Hg] [facility] Heart rate 2023-02-21 16:52:00 79 /min [facility] Body temperature 2023-02-21 16:52:00 36.83 Juanita [facility] Respiratory rate 2023-02-21 16:52:00 18 /min [facility] Oxygen saturation in Arterial blood by Pulse oximetry 2023-02-21 16:52:00 97 /min [facility] Body height 2023-02-19 21:02:00 157.5 cm [facility] Body weight 2023-02-19 21:02:00 66.679 kg [facility] BMI 2023-02-19 21:02:00 26.89 kg/m2 [facility] Systolic blood pressure 2023-02-18 22:18:00 162 mm[Hg] [facility] Diastolic blood pressure 2023-02-18 22:18:00 111 mm[Hg] [facility] Heart rate 2023-02-18 22:16:00 119 /min [facility] Body temperature 2023-02-18 22:16:00 35.72 Juanita [facility] Respiratory rate 2023-02-18 22:16:00 18 /min [facility] Body height 2023-02-18 22:16:00 157.5 cm [facility] Body weight 2023-02-18 22:16:00 66.769 kg [facility] BMI 2023-02-18 22:16:00 26.92 kg/m2 [facility] Oxygen saturation in Arterial blood by Pulse oximetry 2023-02-18 22:16:00 98 /min [facility] Systolic blood pressure 2023-01-24 16:09:00 148 mm[Hg] [facility] Diastolic blood pressure 2023-01-24 16:09:00 105 mm[Hg] [facility] Heart rate 2023-01-24 16:09:00 98 /min [facility] Oxygen saturation in Arterial blood by Pulse oximetry 2023-01-24 16:09:00 100 /min [facility] Body temperature 2023-01-24 16:08:00 36.22 Juanita [facility] Body height 2023-01-24 16:08:00 157.5 cm [facility] Body weight 2023-01-24 16:08:00 66.679 kg [facility] BMI 2023-01-24 16:08:00 26.89 kg/m2 [facility] Systolic blood pressure 2022-10-08 16:51:00 119 mm[Hg] [facility] Diastolic blood pressure 2022-10-08 16:51:00 76 mm[Hg] [facility] Heart rate 2022-10-08 16:51:00 72 /min [facility] Body temperature 2022-10-08 16:51:00 36.78 Juanita [facility] Respiratory rate 2022-10-08 16:51:00 21 /min [facility] Oxygen saturation in Arterial blood by Pulse oximetry 2022-10-08 16:51:00 98 /min [facility] Body height 2022-10-07 17:04:00 162.6 cm [facility] Body weight 2022-10-07 17:04:00 64.32 kg standing weight [facility] BMI 2022-10-07 17:04:00 24.34 kg/m2 [facility] Body weight 2022-09-30 13:37:00 61.236 kg [facility] BMI 2022-09-30 13:37:00 24.69 kg/m2 [facility] Systolic blood pressure 2022-09-09 16:28:00 108 mm[Hg] [facility] Diastolic blood pressure 2022-09-09 16:28:00 75 mm[Hg] [facility] Heart rate 2022-09-09 16:28:00 62 /min [facility] Body temperature 2022-09-09 16:28:00 36.78 Juanita [facility] Oxygen saturation in Arterial blood by Pulse oximetry 2022-09-09 16:28:00 97 /min [facility] Respiratory rate 2022-09-09 12:32:00 17 /min [facility] Body height 2022-09-08 21:02:00 157.5 cm [facility] Body weight 2022-09-08 21:02:00 61.236 kg [facility] BMI 2022-09-08 21:02:00 24.69 kg/m2 [facility] Systolic blood pressure 2022-08-19 16:28:00 112 mm[Hg] [facility] Diastolic blood pressure 2022-08-19 16:28:00 74 mm[Hg] [facility] Heart rate 2022-08-19 16:28:00 67 /min [facility] Body temperature 2022-08-19 16:28:00 36.83 Juanita [facility] Respiratory rate 2022-08-19 16:28:00 19 /min [facility] Oxygen saturation in Arterial blood by Pulse oximetry 2022-08-19 16:28:00 98 /min [facility] Body height 2022-08-18 15:05:00 157.5 cm [facility] Body weight 2022-08-18 15:05:00 62.596 kg [facility] BMI 2022-08-18 15:05:00 25.24 kg/m2 [facility] Systolic blood pressure 2022-06-10 19:05:00 139 mm[Hg] [facility] Diastolic blood pressure 2022-06-10 19:05:00 92 mm[Hg] [facility] Heart rate 2022-06-10 19:04:00 96 /min [facility] Body temperature 2022-06-10 19:04:00 36.56 Juanita [facility] Respiratory rate 2022-06-10 19:04:00 18 /min [facility] Body height 2022-06-10 19:04:00 157.5 cm [facility] Body weight 2022-06-10 19:04:00 65.318 kg [facility] BMI 2022-06-10 19:04:00 26.34 kg/m2 [facility] Oxygen saturation in Arterial blood by Pulse oximetry 2022-06-10 19:04:00 100 /min [facility] Systolic blood pressure 2022-05-13 19:26:00 156 mm[Hg] [facility] Diastolic blood pressure 2022-05-13 19:26:00 90 mm[Hg] [facility] Heart rate 2022-05-13 19:24:00 104 /min [facility] Body temperature 2022-05-13 19:24:00 37.11 Juanita [facility] Body height 2022-05-13 19:24:00 157.5 cm [facility] Body weight 2022-05-13 19:24:00 65.01 kg [facility] BMI 2022-05-13 19:24:00 26.21 kg/m2 [facility] Oxygen saturation in Arterial blood by Pulse oximetry 2022-05-13 19:24:00 100 /min [facility] Systolic blood pressure 2022-05-12 17:31:00 141 mm[Hg] rn notified [facility] Diastolic blood pressure 2022-05-12 17:31:00 93 mm[Hg] rn notified [facility] Heart rate 2022-05-12 17:31:00 80 /min [facility] Body temperature 2022-05-12 17:31:00 36.17 Juanita [facility] Oxygen saturation in Arterial blood by Pulse oximetry 2022-05-12 17:31:00 99 /min [facility] Respiratory rate 2022-05-12 13:15:00 18 /min [facility] Body height 2022-05-11 19:46:00 157.5 cm [facility] Body weight 2022-05-11 19:46:00 63.05 kg [facility] BMI 2022-05-11 19:46:00 25.42 kg/m2 [facility] Systolic blood pressure 2022-03-06 19:01:00 157 mm[Hg] [facility] Diastolic blood pressure 2022-03-06 19:01:00 97 mm[Hg] [facility] Heart rate 2022-03-06 18:53:00 112 /min [facility] Body temperature 2022-03-06 18:53:00 36.11 Juanita [facility] Respiratory rate 2022-03-06 18:53:00 14 /min [facility] Body height 2022-03-06 18:53:00 157.5 cm [facility] Body weight 2022-03-06 18:53:00 67.45 kg [facility] BMI 2022-03-06 18:53:00 27.20 kg/m2 [facility] Oxygen saturation in Arterial blood by Pulse oximetry 2022-03-06 18:53:00 98 /min [facility] Systolic blood pressure 2022-02-11 18:52:00 166 mm[Hg] [facility] Diastolic blood pressure 2022-02-11 18:52:00 104 mm[Hg] [facility] Heart rate 2022-02-11 18:52:00 113 /min [facility] Body height 2022-02-11 18:52:00 157.5 cm [facility] Body weight 2022-02-11 18:52:00 69.945 kg [facility] BMI 2022-02-11 18:52:00 28.20 kg/m2 [facility] Oxygen saturation in Arterial blood by Pulse oximetry 2022-02-11 18:52:00 99 /min [facility] Systolic blood pressure 2021-08-20 14:21:00 162 mm[Hg] [facility] Diastolic blood pressure 2021-08-20 14:21:00 109 mm[Hg] [facility] Heart rate 2021-08-20 14:21:00 86 /min [facility] Body height 2021-08-20 14:21:00 157.5 cm [facility] Body weight 2021-08-20 14:21:00 69.446 kg [facility] BMI 2021-08-20 14:21:00 28.00 kg/m2 [facility] Oxygen saturation in Arterial blood by Pulse oximetry 2021-08-20 14:21:00 100 /min [facility] Procedures Procedure Date / Time Performed Performing Clinician Source CT ABDOMEN PELVIS WO CONTRAST 2023-05-14 13:10:38 Buck Lewis [facility] CONSENT/REFUSAL FOR DIAGNOSIS AND TREATMENT 2023-05-14 12:42:23 Doctor Unassigned, [place] [facility] POCT TEST 2023-05-14 12:38:00 Brijesh Lewis [facility] XR CHEST 2 VW 2023-05-14 12:14:12 Adrianne Buchanan [facility] LACTIC ACID WHOLE BLOOD 2023-05-14 11:49:00 Mary Tate [facility] COMP. METABOLIC PANEL ([id number]) 2023-05-14 11:48:00 Mary Buchanan Yobany [facility] CBC WITH DIFF 2023-05-14 11:48:00 Adrianne Buchanan Yobany [facility] URINALYSIS 2023-05-14 11:48:00 Adrianne Buchanan Yobany [facility] [id number] 2023-05-05 00:00:00 ABDHA.01 [facility] [id number] 2023-05-05 00:00:00 ABDHA.01 [facility] [id number] 2023-04-26 00:00:00 ALNMA.01 [facility] [id number] 2023-04-26 00:00:00 ALNMA.01 [facility] [id number] 2023-04-26 00:00:00 JOHKR01 [facility] [id number] 2023-04-26 00:00:00 ALNMA.01 [facility] [id number] 2023-04-26 00:00:00 ALNMA.01 [facility] [id number] 2023-04-26 00:00:00 BELBR.01 [facility] [id number] 2023-04-26 00:00:00 ALNMA.01 [facility] [id number] 2023-04-26 00:00:00 BELBR.01 [facility] [id number] 2023-04-21 00:00:00 MOUDA.01 [facility] [id number] 2023-04-21 00:00:00 MOUDA.01 [facility] [id number] 2023-04-21 00:00:00 MOUDA.01 [facility] TRANSTHORACIC ECHO (TTE) COMPLETE 2023-02-21 14:56:53 Felisa Holm [facility] MAGNESIUM 2023-02-21 10:38:00 Shilo Lance [facility] COMP. METABOLIC PANEL ([id number]) 2023-02-21 10:38:00 Shilo Lance [facility] CBC WITH DIFF 2023-02-21 10:38:[address] 2023-02-20 10:04:00 Felisa Holm [facility] MAGNESIUM 2023-02-20 10:04:00 Felisa Holm [facility] COMP. METABOLIC PANEL ([id number]) 2023-02-20 10:04:00 Felisa Holm [facility] CBC WITH DIFF 2023-02-20 10:04:00 Felisa Holm [facility] EKG-12 LEAD 2023-02-19 21:45:53 [facility]-02-19 21:33:00 Felisa Holm [facility] LACTIC ACID WHOLE BLOOD 2023-02-19 21:33:00 Jose Holm [facility] URINALYSIS 2023-02-19 16:10:00 Dela Cruz Marcel [facility] URINE CULTURE 2023-02-19 16:10:00 Dela Cruz [facility] BLOOD CULTURE SCREEN 2023-02-19 13:51:00 Dela Cruz[facility] TROPONIN I 2023-02-19 13:51:[address] [facility] THYROID STIMULATING HORMONE 2023-02-19 13:51:00 Dela Cruz, [facility] COMP. METABOLIC PANEL ([id number]) 2023-02-19 13:51:00 Dela Cruz, [facility] CBC WITH DIFF 2023-02-19 13:51:00 Dela Cruz [facility] N-TERMINAL PRO-BNP 2023-02-19 13:51:00 Dela CruzParveenMarcel [facility] LACTIC ACID WHOLE BLOOD 2023-02-19 13:51:00 Nettie Dela Cruz [facility] XR CHEST 2 VW 2023-02-19 12:54:00 Lanie [facility] CONSENT/REFUSAL FOR DIAGNOSIS AND TREATMENT 2023-02-19 11:21:51 Doctor Unassigned, [place] [facility] CRITICAL CARE 2023-02-19 11:20:00 Marcel Dela Cruz [facility] XR CHEST 2 VW 2023-02-18 23:05:33 Dequan Ghotra [facility] POCT TEST 2023-02-18 22:37:00 Wallace Ghotra [facility] POCT SARS-COV-2 ANTIGEN (BINAX NOW) 2023-02-18 22:37:00 Dequan Ghotra [facility] ASSIGNMENT OF BENEFITS 2022-10-26 20:44:17 Docto r Unassigned, [place] [facility] CBC WITHOUT DIFF 2022-10-08 14:48:00 Jose Juan Zepeda [facility] PREPARE PACKED RBC 2022-10-08 11:02:03 Aren Rahman in [facility] BASIC METABOLIC PANEL (NA, K, CL, CO2, GLUCOSE, BUN, CREATININE, CA) 2022-10-08 09:38:00 [facility] 2022-10-08 09:38:00 [facility] WITHOUT DIFF 2022-10-08 02:06:00 Josiah [facility] HB ABO GROUPING 2022-10-07 18:09:00 Josiah [facility] OCT, RETINA - OU - BOTH EYES 2022-09-30 13:38:38 Rolo Fuentes [facility] PHOSPHORUS 2022-09-09 09:09:00 Juancarlos Cloud [facility] MAGNESIUM 2022-09-09 09:09:00 Pedro Luis [facility] BASIC METABOLIC PANEL (NA, K, CL, CO2, GLUCOSE, BUN, CREATININE, CA) 2022-09-09 09:09:00 Pedro Luis [facility] CBC WITH DIFF 2022-09-09 09:09:00 Pedro Luis [facility] PREPARE PACKED RBC 2022-09-09 03:03:04 Abhilash Liu [facility] PREPARE PACKED RBC 2022-09-08 20:29:10 Abhilash Liu [facility] CBC WITH DIFF 2022-09-08 18:01:00 Abhilash Liu [facility] PHOSPHORUS 2022-09-08 18:00:00 Abhilash [facility] MAGNESIUM 2022-09-08 18:00:00 Abhilash Liu [facility] HEPATIC FUNCTION PANEL ([id number]) (ALB,T.PRO,BILI T,BU/BC,ALT,AST,ALK PHOS) 2022-09-08 18:00:00 Abhilash Liu [facility] BASIC METABOLIC PANEL (NA, K, CL, CO2, GLUCOSE, BUN, CREATININE, CA) 2022-09-08 18:00:00 Abhilash Liu [facility] HB ABO GROUPING 2022-09-08 18:00:00 Abhilash Liu [facility] PHOSPHORUS 2022-08-19 10:03:00 Kavita [facility] MAGNESIUM 2022-08-19 10:03:00 Kavita [facility] BASIC METABOLIC PANEL (NA, K, CL, CO2, GLUCOSE, BUN, CREATININE, CA) 2022-08-19 10:03:00 Kavita [facility] CBC WITH DIFF 2022-08-19 10:03:00 Kavita [facility] CBC WITHOUT DIFF 2022-08-19 03:56:00 Jose Juan Zepeda [facility] PREPARE PACKED RBC 2022-08-18 22:51:35 Kavita [facility] D-DIMER 2022-08-18 16:14:00 Kavita [facility] HB ABO GROUPING 2022-08-18 16:14:00 Nika Reyes [facility] LACTIC ACID WHOLE BLOOD 2022-05-12 16:01:00 Ridge [facility] LACTIC ACID WHOLE BLOOD 2022-05-12 07:07:00 Zina Menendez [facility] COMP. METABOLIC PANEL ([id number]) 2022-05-12 07:06:00 Kathy Boateng [facility] IRON PANEL 2022-05-12 07:06:00 Kathy Boateng U [facility] CBC WITH DIFF 2022-05-12 07:06:00 Zina Menendez [facility] LACTIC ACID WHOLE BLOOD 2022-05-11 22:25:00 Deanna Rivas [facility] LACTIC ACID WHOLE BLOOD 2022-05-11 19:37:00 Ridge [facility] LACTIC ACID WHOLE BLOOD 2022-05-11 15:15:00 Ridge [facility] TRANSTHORACIC ECHO (TTE) COMPLETE 2022-05-11 14:57:40 Ridge [facility] COVID-19 (ID NOW RAPID TESTING) 2022-05-11 08:35:00 Haroon Villaseñor [facility] LAB ONLY COVID INTERPRETATION 2022-05-11 08:35:00 Kasi [facility] BLOOD CULTURE SCREEN 2022-05-11 08:05:00 Kasi [facility] XR CHEST 2 VW 2022-05-11 06:34:00 Haroon Villaseñor [facility] MAGNESIUM 2022-05-11 05:51:00 [facility] FERRITIN SERUM 2022-05-11 05:51:00 Zina Menendez [facility] TEST, SERUM 2022-05-11 05:51:00 Nannette Villaseñor [facility] TROPONIN I 2022-05-11 05:51:00 [facility] COMP. METABOLIC PANEL ([id number]) 2022-05-11 05:51:00 Kasi [facility] IRON PANEL 2022-05-11 05:51:00 Zina Menendez [facility] CBC WITH DIFF 2022-05-11 05:51:00 Kasi [facility] URINALYSIS 2022-05-11 05:51:00 [facility] RETICULOCYTES AUTOMATED 2022-05-11 05:51:00 Zina Menendez [facility] N-TERMINAL PRO-BNP 2022-05-11 05:51:00 Haroon Villaseñor [facility] HB ECG ROUTINE & RHYTHM STRIP 2022-05-11 04:53:26 Zina Menendez [facility] CONSENT/REFUSAL FOR DIAGNOSIS AND TREATMENT 2022-05-11 04:40:20 Doctor Unassigned, [place] [facility] POCT MOLECULAR FLU 2022-03-06 19:25:00 Unknown, Attend ing [facility] POCT MOLECULAR STREP 2022-03-06 19:06:00 Unknown, Atte nding [facility] ASSIGNMENT OF BENEFITS 2021-10-24 21:23:30 Docto r Unassigned, [place] [facility] Encounters Start Date/Time End Date/Time Encounter Type Admission Type Attending [facility] Care Department Encounter ID Source 2023-05-25 14:50:00 2023-05-25 14:50:00 Outpatient R MACEDO HORTENCIA [facility] [id number] [facility] 2023-05-24 16:00:00 2023-05-24 16:00:00 Outpatient R [facility] [id number] [facility] 2023-05-23 16:30:00 2023-05-23 16:30:00 Outpatient R [facility] [id number] [facility] 2023-05-23 00:00:00 2023-05-23 00:00:00 Telephone Chelo Gallegosidhasmukh [facility] 1.840.114 350.1.13.10 4.2.7.2.686 [id number] [facility] 2023-05-19 00:00:00 2023-05-19 00:00:00 Telephone Ta Dimas [facility] 1.840.114 350.1.13.10 4.2.7.2.686 [id number] [facility] 2023-05-18 16:00:00 2023-05-18 16:15:00 Director Of Agronomy Visit Pcp-Lab Steve Redd [facility] 1.284.114 350.1.13.10 4.2.7.2.686 [id number] [facility] 2023-05-18 14:30:00 2023-05-18 15:47:28 Outpatient R STEVE REDD [facility] [id number] [facility] 2023-05-18 14:30:00 2023-05-18 15:47:28 Office Visit Floyd Gallegos Laura R [facility] 1.2840.114 350.1.13.10 4.2.7.2.686 [id number] [facility] 2023-05-14 05:19:00 2023-05-14 08:48:00 Emergency X EHSAN [facility] ERT [id number] [facility] 2023-05-14 05:19:00 2023-05-14 08:48:00 Emergency Morrical[facility] 1.840.114 350.1.13.10 4.2.7.2.686 [id number] [facility] 2023-04-21 13:36:00 2023-05-13 15:03:00 Inpatient Kadie Molina [facility]02 [id number] [facility] 2023-05-09 16:00:00 2023-05-09 16:00:00 Outpatient EVELYN DE JESUS DO [facility] [id number] [facility] 2023-05-06 00:00:00 2023-05-06 00:00:00 [facility] 1..840.114 350.1.13.10 4.2.7.2.686 [id number] [facility] 2023-05-05 16:15:00 2023-05-05 16:15:00 Outpatient BARRIE BARBOSA [facility] [id number] [facility] 2023-04-21 00:00:00 2023-04-21 00:00:00 [facility] 1..840.114 350.1.13.10 4.2.7.2.686 [id number] [facility] 2023-04-21 00:00:00 2023-04-21 00:00:00 Telephone Norbert Farfan [facility] 1.114 350.1.13.10 4.2.7.2.686 [id number] [facility] 2023-04-13 09:00:00 2023-04-13 09:00:00 Outpatient R [facility] [id number] [facility] 2023-04-12 13:45:00 2023-04-12 13:45:00 Outpatient R HUMPHREY GOLDSTEIN [facility] [id number] [facility] 2023-04-07 14:00:00 2023-04-07 14:00:00 Outpatient R BARRIE SAMANIEGO [facility] [id number] [facility] 2023-04-07 00:00:00 2023-04-07 00:00:00 Patient Secure Msg Pcp, Patient Does Not Have A [facility] 1.114 350.1.13.10 4.2.7.2.686 [id number] [facility] 2023-04-04 13:00:00 2023-04-04 13:00:00 Outpatient R [facility] [id number] [facility] 2023-03-28 10:20:00 2023-03-28 14:43:39 Outpatient R EVELYN HERNANDEZ DO [facility] [id number] [facility] 2023-03-28 10:20:00 2023-03-28 14:43:39 Office Visit Norbert Farfan do, Ann K N [facility] MULTISPEC IALTY [facility] 1.114 350.1.13.10 4.2.7.2.686 [id number] [facility] 2023-03-28 00:00:00 2023-03-28 00:00:00 Letter (Out) Norbert Farfan [facility] MULTISPEC [facility]ALTY [facility] 1..114 350.1.13.10 4.2.7.2.686 [id number] [facility] 2023-03-28 00:00:00 2023-03-28 00:00:00 Patient Secure Steve Pisano [facility] 1.2840.114 350.1.13.10 4.2.7.2.686 [id number] [facility] 2023-03-21 16:00:00 2023-03-21 16:15:00 Director Of Agronomy Visit [facility] Concepcion do, Ann K N [facility] MULTISPEC IALTY [facility] AND [facility] 1..114 350.1.13.10 4.2.7.2.686 [id number] [facility] 2023-03-21 16:00:00 2023-03-21 16:00:00 Outpatient EVELYN DE JESUS DO [facility] [id number] [facility] 2023-03-04 00:00:00 2023-03-04 00:00:00 Telephone Humphrey Goldstein [facility] WILFREDKarina [place] 1.840.114 350.1.13.10 4.2.7.2.686 [id number] [facility] 2023-03-03 09:15:00 2023-03-03 09:30:00 Office Visit Humphrey Goldstein [facility] WILFRED JEANNE MCC[place]LLAND 1.840.114 350.1.13.10 4.2.7.2.686 [id number] [facility] 2023-03-03 09:15:00 2023-03-03 09:15:00 Outpatient Rafaela GOLDSTEIN [place] [id number] [facility] 2023-03-03 00:00:00 2023-03-03 00:00:00 Telephone Norbert Farfan [facility] MULTISPEC IALTY [facility]ENTER AND [facility] 1.0.114 350.1.13.10 4.2.7.2.686 [id number] [facility] 2023-03-02 17:00:00 2023-03-02 17:15:00 Director Of Agronomy Visit Vtc-Lab Evelyn Hernandez do [facility] MULTISPEC IALTY [facility] AND [facility] 1.840.114 350.1.13.10 4.2.7.2.686 [id number] [facility] 2023-03-02 17:00:00 2023-03-02 17:00:00 Outpatient R EVELYN HERNANDEZ DO [facility] [id number] [facility] 2023-03-02 00:00:00 2023-03-02 00:00:00 Telephone Evelyn Hernandez do [facility] 1.0.114 350.1.13.10 4.2.7.2.686 [id number] [facility] 2023-03-02 00:00:00 2023-03-02 00:00:00 Patient Secure Msg Doctor Unassigned, [place] [facility] 1.0.114 350.1.13.10 4.2.7.2.686 [id number] [facility] 2023-03-01 00:00:00 2023-03-01 00:00:00 Telephone [facility] 1.0.114 350.1.13.10 4.2.7.2.686 [id number] [facility] 2023-03-01 00:00:00 2023-03-01 00:00:00 Telephone [facility] 1..114 350.1.13.10 4.2.7.2.686 [id number] [facility] 2023-03-01 00:00:00 2023-03-01 00:00:00 Patient Secure Msg Doctor Unassigned, [place] [facility] 1.0.114 350.1.13.10 4.2.7.2.686 [id number] [facility] 2023-02-28 09:15:00 2023-02-28 09:30:00 Director Of Agronomy Visit Vtc-Lab Alexandra morillo, Evelyn [facility] 1..114 350.1.13.10 4.2.7.2.686 [id number] [facility] 2023-02-28 08:00:00 2023-02-28 09:12:18 Outpatient R EVELYN HERNANDEZ DO [facility] [id number] [facility] 2023-02-28 08:00:00 2023-02-28 09:12:18 Office Visit Norbert Farfan do, Evelyn [facility] IALTY [place] [facility] 1..114 350.1.13.10 4.2.7.2.686 [id number] [facility] 2023-02-23 00:00:00 2023-02-23 00:00:00 Telephone [facility] 1..114 350.1.13.10 4.2.7.2.686 [id number] [facility] 2023-02-22 00:00:00 2023-02-22 00:00:00 Telephone Evelyn Hernandez [facility] 1..114 350.1.13.10 4.2.7.2.686 [id number] [facility] 2023-02-22 00:00:00 2023-02-22 00:00:00 Transition of Care Maria, Mary MCC[place]LL[place] 1.114 350.1.13.10 4.2.7.2.686 [id number] [facility] 2023-02-22 00:00:00 2023-02-22 00:00:00 Patient Secure Msvelma Hernandez do, Evelyn Lowry [facility] MULT[facility]PEC [facility] 1.114 350.1.13.10 4.2.7.2.686 [id number] [facility] 2023-02-19 06:35:00 2023-02-21 17:43:00 Inpatient X DIALLO [facility]UN [facility] [id number] [facility] 2023-02-19 06:35:00 2023-02-21 17:43:00 Hospital Encounter Marcel Dela Cruz Quratulanne H Diallo yun [facility] 1.114 350.1.13.10 4.2.7.2.686 [id number] [facility] 2023-02-21 11:00:00 2023-02-21 11:00:00 Outpatient EVELYN DE JESUS DO [facility] [id number] [facility] 2023-02-18 17:54:51 2023-02-18 23:59:00 Hospital Encounter [facility] 1.114 350.1.13.10 4.2.7.2.686 [id number] [facility] 2023-02-18 17:15:00 2023-02-18 18:12:20 Outpatient R DEQUAN GHOTRA SHAHNAZ [facility] [id number] [facility] 2023-02-18 17:15:00 2023-02-18 18:12:20 Urgent Care Ty, Dequan Unknown, Attending [facility] 1.2840.114 350.1.13.10 4.2.7.2.686 [id number] [facility] 2023-02-18 00:00:00 2023-02-18 00:00:00 Letter (Out) Ty, Dequan [facility] 1.840.114 350.1.13.10 4.2.7.2.686 [id number] [facility] 2023-02-15 16:45:00 2023-02-15 17:00:00 Director Of Agronomy Visit Vtc-Lab Evelyn Hernandez do [facility] 1.0.114 350.1.13.10 4.2.7.2.686 [id number] [facility] 2023-02-15 16:45:00 2023-02-15 16:45:00 Outpatient R EVELYN HERNANDEZ DO [facility] [id number] [facility] 2023-02-03 00:00:00 2023-02-03 00:00:00 Letter (Out) Ta Dimas [facility] 1..114 350.1.13.10 4.2.7.2.686 [id number] [facility] 2023-02-02 00:00:00 2023-02-02 00:00:00 Telephone Evelyn Hernandez do [facility] M[facility]PEC [facility]ALTY [facility]ENTER AND [facility] 1.840.114 350.1.13.10 4.2.7.2.686 [id number] [facility] 2023-01-27 00:00:00 2023-01-27 00:00:00 Telephone [facility] AND [facility] 1.2.840.114 350.1.13.10 4.2.7.2.686 [id number] [facility] 2023-01-27 00:00:00 2023-01-27 00:00:00 Telephone [facility] AND [facility] 1.2.840.114 350.1.13.10 4.2.7.2.686 [id number] [facility] 2023-01-27 00:00:00 2023-01-27 00:00:00 Telephone [facility] AND [facility] 1.2.840.114 350.1.13.10 4.2.7.2.686 [id number] [facility] 2023-01-26 00:00:00 2023-01-26 00:00:00 Patient Secure Msg Alexandra morillo, [facility] 1.2.840.114 350.1.13.10 4.2.7.2.686 [id number] [facility] 2023-01-25 12:15:00 2023-01-25 12:30:00 Director Of Agronomy Visit V[facility]-Lab Evelyn Hernandez do [facility] MULTISPEC [facility]TY CENTER AND [facility] 1.2.840.114 350.1.13.10 4.2.7.2.686 [id number] [facility] 2023-01-25 12:15:00 2023-01-25 12:15:00 Outpatient R EVELYN HERNANDEZ DO [facility] [id number] [facility] 2023-01-24 11:00:00 2023-01-24 12:19:21 Outpatient R ALEXANDRA MORILLO, EVELYN [facility] [id number] [facility] 2023-01-24 11:00:00 2023-01-24 12:19:21 Office Visit Jh Hilton Oz Hernandez do, Evelyn [facility] 1.2.840.114 350.1.13.10 4.2.7.2.686 [id number] [facility] 2023-01-07 00:00:00 2023-01-07 00:00:00 Telephone Bian[facility] PRIMARY CARE PAVILLION 1.2.840.114 350.1.13.10 4.2.7.2.686 [id number] 044 [id number] [facility] 2022-12-29 00:00:00 2022-12-29 00:00:00 Refjefry Hernandez do, Evelyn [facility] 1.2.840.114 350.1.13.10 4.2.7.2.686 [id number] [facility] 2022-12-28 00:00:00 2022-12-28 [facility]:00[facility] PR[facility] C[facility] PAVILL[facility] 1.2.840.114 350.1.13.10 4.2.7.2.686 [id number] 044 [id number] [facility] 2022-12-23 00:00:00 2022-12-23 [facility] 1.2.840.114 350.1.13.10 4.2.7.2.686 [id number] 044 [id number] [facility] 2022-12-15 10:30:00 2022-12-15 10:45:00 Director Of Agronomy Visit Lab, Ronn Rios [facility] 1.2.840.114 350.1.13.10 4.2.7.2.686 [id number] [facility] 2022-12-15 10:30:00 2022-12-15 10:30:00 Outpatient R LALIT RONN [facility] [id number] [facility] 2022-12-14 00:00:00 2022-12-14 00:00:00 [facility] [place] [facility] 1.840.114 350.1.13.10 4.2.7.2.686 [id number] [facility] 2022-12-13 16:00:00 2022-12-13 16:00:00 Outpatient R [facility] [id number] [facility] 2022-12-07 16:30:00 2022-12-07 16:45:00 Director Of Agronomy Visit [facility] [place] [facility] 1.84.114 350.1.13.10 4.2.7.2.686 [id number] [facility] 2022-12-07 16:30:00 2022-12-07 16:30:00 Outpatient R RACHEAL SIERRA [facility] [id number] [facility] 2022-12-04 00:00:00 2022-12-04 00:00:00 Case Management Racheal Sierra [facility] PRIMARY CARE PAVILLION 1.840.114 350.1.13.10 4.2.7.2.686 [id number] 044 [id number] [facility] 2022-11-16 00:00:00 2022-11-16 00:00:00 Refill Racheal Sierra [facility] PRIMARY CARE PAVILLION 1.840.114 350.1.13.10 4.2.7.2.686 [id number] 044 [id number] [facility] 2022-11-11 13:00:00 2022-11-11 15:18:48 Outpatient R RACHEAL SIERRA [facility] [id number] [facility] 2022-11-11 14:15:00 2022-11-11 14:30:00 Director Of Agronomy Visit [facility] Racheal Sierra [facility] PRIMARY [facility]ARE MARLENE 1.2.840.114 350.1.13.10 4.2.7.2.686 [id number] [facility] 2022-11-11 00:00:00 2022-11-11 00:00:00 Case Management Racheal Sierra [facility] MAR[facility] 1.2.840.114 350.1.13.10 4.2.7.2.686 [id number] 044 [id number] [facility] 2022-11-09 00:00:00 2022-11-09 00:00:00 Telephone Ta Dimas [facility] MULTISPEC IALTY CENTER AND [facility] 1.2.840.114 350.1.13.10 4.2.7.2.686 [id number] [facility] 2022-11-03 00:00:00 2022-11-03 00:00:00 Refill Racheal Sierra [facility] PRIMARY CARE DREWON 1.2.840.114 350.1.13.10 4.2.7.2.686 [id number] 044 [id number] [facility] 2022-10-26 15:45:00 2022-10-26 16:00:00 Director Of Agronomy Visit [facility] 1.2.840.114 350.1.13.10 4.2.7.2.686 [id number] [facility] 2022-10-26 15:45:00 2022-10-26 15:45:00 Outpatient R RACHEAL SIERRA [facility] [id number] [facility] 2022-10-26 00:00:00 2022-10-26 00:00:00 Orders Only Doctor Unassigned, [place] [facility] 1.2.840.114 350.1.13.10 4.2.7.2.686 [id number] [facility] 2022-10-20 00:00:00 2022-10-20 00:00:00 Case Management Racheal Sierra [facility] PRIMARY CARE PAVILLION 1.2.840.114 350.1.13.10 4.2.7.2.686 [id number] 044 [id number] [facility] 2022-10-10 00:00:00 2022-10-10 00:00:00 Jose Juan Cuevas [facility] PRIMARY CARE PAVILLI 1.2.840.114 350.1.13.10 4.2.7.2.686 [id number] 044 [id number] [facility] 2022-10-07 11:57:00 2022-10-08 14:39:00 Outpatient U REYMUNDO NOWAK [facility] [id number] [facility] 2022-10-07 11:57:00 2022-10-08 14:39:00 Hospital Encounter Reymundo Nowak [facility] 1.2.840.114 350.1.13.10 4.2.7.2.686 [id number] [id number] [facility] 2022-10-06 14:30:00 2022-10-06 14:45:00 Director Of Agronomy Visit Vtc-Lab Racheal Sierra [facility] CENTER AND [facility] 1.2.840.114 350.1.13.10 4.2.7.2.686 [id number] [facility] 2022-10-06 14:30:00 2022-10-06 14:30:00 Outpatient R RACHEAL SIERRA [facility] [id number] [facility] 2022-10-03 00:00:00 2022-10-03 00:00:00 Case Management Racheal Sierra [facility] PRIMARY CARE PAVILLION 1.2.840.114 350.1.13.10 4.2.7.2.686 [id number] 044 [id number] [facility] 2022-09-30 08:15:00 2022-09-30 08:30:00 Office Visit Rolo Fuentes [facility] MULTISPEC IALTY CENTER AND [facility] 1.2.840.114 350.1.13.10 4.2.7.2.686 [id number] [facility] 2022-09-30 08:15:00 2022-09-30 08:15:00 Outpatient R ROLO FUENTES [facility] [id number] [facility] 2022-09-30 00:00:00 2022-09-30 00:00:00 Letter (Out) Rolo Fuentes [facility] MULTISPEC IALTY CENTER AND [facility] 1.2840.114 350.1.13.10 4.2.7.2.686 [id number] [facility] 2022-09-29 16:30:00 2022-09-29 16:45:00 Director Of Agronomy Visit [facility] 1.2840.114 350.1.13.10 4.2.7.2.686 [id number] [facility] 2022-09-29 16:30:00 2022-09-29 16:30:00 Outpatient R RACHEAL SIERRA [facility] [id number] [facility] 2022-09-24 00:00:00 2022-09-24 00:00:00 Case Management Racheal Sierra [facility] PRIMARY CARE PAVILLION 1.2.840.114 350.1.13.10 4.2.7.2.686 [id number] [id number] [facility] 2022-09-15 00:00:00 2022-09-15 00:00:00 Telephone Racheal Sierra [facility] PRIMARY CARE PAVILLION 1.2.840.114 350.1.13.10 4.2.7.2.686 [id number] 044 [id number] [facility] 2022-09-13 00:00:00 2022-09-13 00:00:00 Case Management Racheal Sierra [facility] PRIMARY CARE PAVILLION 1.2.840.114 350.1.13.10 4.2.7.2.686 [id number] 044 [id number] [facility] 2022-09-10 00:00:00 2022-09-10 00:00:00 Case Management Racheal Sierra [facility] PRIMARY CARE PAVILLION 1.2.840.114 350.1.13.10 4.2.7.2.686 [id number] 044 [id number] [facility] 2022-09-08 11:50:00 2022-09-09 15:55:00 Outpatient R KELLY LIM [facility] [id number] [facility] 2022-09-08 11:50:00 2022-09-09 15:55:00 Hospital Encounter Kelly Lim [facility] 1.2.840.114 350.1.13.10 4.2.7.2.686 [id number] [facility] 2022-09-09 13:00:00 2022-09-09 13:00:00 Outpatient R BIANKA RACHEAL [facility] [id number] [facility] 2022-09-06 15:15:00 2022-09-06 15:30:00 Director Of Agronomy Visit Pcp-Lab Steve Redd [facility] PRIMARY CARE PAVILLION 1.2.840.114 350.1.13.10 4.2.7.2.686 [id number] [facility] 2022-09-06 15:15:00 2022-09-06 15:15:00 Outpatient R STEVE REDD [facility] [id number] [facility] 2022-09-06 00:00:00 2022-09-06 00:00:00 Case Management Racheal Sierra PRIMARY CARE PAVILLION 1.2.840.114 350.1.13.10 4.2.7.2.686 [id number] 044 [id number] [facility] 2022-08-28 00:00:00 2022-08-28 00:00:00 Case Management Racheal Sierra [facility] 1.2.840.114 350.1.13.10 4.2.7.2.686 [id number] 044 [id number] [facility] 2022-08-24 00:00:00 2022-08-24 00:00:00 Case Management Racheal Sierra [facility] PRIMARY CARE PAVILLION 1.2.840.114 350.1.13.10 4.2.7.2.686 [id number] 044 [id number] [facility] 2022-08-24 00:00:00 2022-08-24 00:00:00 Case Management Racheal Sierra [facility] PRIMARY CARE PAVILLION 1.2.840.114 350.1.13.10 4.2.7.2.686 [id number] 044 [id number] [facility] 2022-08-23 00:00:00 2022-08-23 00:00:00 Case Management Racheal Sierra PRIMARY CARE PAVILLION 1.2.840.114 350.1.13.10 4.2.7.2.686 [id number] [id number] [facility] 2022-08-23 00:00:00 2022-08-23 00:00:00 Refill Racheal Sierra [facility] PRIMARY CARE PAVILLION 1.2.840.114 350.1.13.10 4.2.7.2.686 [id number] 044 [id number] [facility] 2022-08-20 00:00:00 2022-08-20 00:00:00 Case Management Racheal Sierra [facility] PRIMARY CARE PAVILLION 1.2.840.114 350.1.13.10 4.2.7.2.686 [id number] 044 [id number] [facility] 2022-08-18 10:06:00 2022-08-19 15:55:00 Outpatient R JH LIMLENGHANSHYAM [facility] [id number] [facility] 2022-08-18 10:06:00 2022-08-19 15:55:00 Hospital Encounter Raphael Kelly [facility] 1.2.840.114 350.1.13.10 4.2.7.2.686 [id number] [id number] [facility] 2022-08-17 17:00:00 2022-08-17 17:15:00 Director Of Agronomy Visit [facility] Concepcion [facility] AND [facility] 1.2.840.114 350.1.13.10 4.2.7.2.686 [id number] [facility] 2022-08-17 17:00:00 2022-08-17 17:00:00 Outpatient R RACHEAL SIERRA [facility] [id number] [facility] 2022-08-16 00:00:00 2022-08-16 00:00:00 Case Management Racheal Sierra [facility] PRIMARY CARE PAVILLION 1.2.840.114 350.1.13.10 4.2.7.2.686 [id number] 044 [id number] [facility] 2022-08-06 00:00:00 2022-08-06 00:00:00 Refill Racheal Sierra [facility] PRIMARY CARE PAVILLION 1.2.840.114 350.1.13.10 4.2.7.2.686 [id number] 044 [id number] [facility] 2022-08-05 14:00:00 2022-08-05 14:00:00 Outpatient R ROLO FUENTES [facility] [id number] [facility] 2022-08-04 00:00:00 2022-08-04 00:00:00 Case Management Racheal Sierra [facility] PRIMARY CARE PAVILLION 1.2.840.114 350.1.13.10 4.2.7.2.686 [id number] 044 [id number] [facility] 2022-07-25 00:00:00 2022-07-25 00:00:00 Case Management Racheal Sierra [facility] PRIMARY CARE PAVILLION 1.2.840.114 350.1.13.10 4.2.7.2.686 [id number] 044 [id number] [facility] 2022-07-09 00:00:00 2022-07-09 00:00:00 Refill Racheal Sierra [facility] PRIMARY CARE PAVILLION 1.2.840.114 350.1.13.10 4.2.7.2.686 [id number] 044 [id number] [facility] 2022-07-01 08:30:00 2022-07-01 08:30:00 Outpatient R ROLO FUENTES [facility] [id number] [facility] 2022-06-10 13:00:00 2022-06-10 16:44:40 Office Visit Racheal Sierra [facility] PRIMARY CARE PAVMARYANNEON 1.2.840.114 350.1.13.10 4.2.7.2.686 [id number] [id number] [facility] 2022-06-10 14:15:00 2022-06-10 14:30:00 Director Of Agronomy Visit Pcp-Lab Racheal Sierra [facility] PRIMARY CARE PAVMARYANNEON 1.2.840.114 350.1.13.10 4.2.7.2.686 [id number] [facility] 2022-06-10 14:15:00 2022-06-10 14:15:00 Outpatient R BIANKARACHEAL [facility] [id number] [facility] 2022-06-10 00:00:00 2022-06-10 00:00:00 Case Management Racheal Sierra [facility] PRIMARY CARE PAVILLION 1.2.840.114 350.1.13.10 4.2.7.2.686 [id number] 044 [id number] [facility] 2022-06-04 00:00:00 2022-06-04 00:00:00 Case Management Racheal Sierra [facility] PRIMARY CARE PAVILLION 1.2.840.114 350.1.13.10 4.2.7.2.686 [id number] 044 [id number] [facility] 2022-05-26 00:00:00 2022-05-26 00:00:00 Refill Racheal Sierra [facility] PRIMARY CARE PAVILLION 1.2.840.114 350.1.13.10 4.2.7.2.686 [id number] 044 [id number] [facility] 2022-05-21 00:00:00 2022-05-21 00:00:00 Refill Racheal Sierra [facility] PRIMARY CARE PAVILLION 1.2.840.114 350.1.13.10 4.2.7.2.686 [id number] 044 [id number] [facility] 2022-05-18 00:00:00 2022-05-18 00:00:00 Telephone Racheal Sierra [facility] PRIMARY CARE PAVILLION 1.2.840.114 350.1.13.10 4.2.7.2.686 [id number] 044 [id number] [facility] 2022-05-13 13:30:00 2022-05-13 16:12:13 Outpatient R RACHEAL SIERRA [facility] [id number] [facility] 2022-05-13 13:30:00 2022-05-13 16:12:13 Office Visit Racheal Sierra [facility] PRIMARY CARE PAVMARYANNEON 1.2.840.114 350.1.13.10 4.2.7.2.686 [id number] 044 [id number] [facility] 2022-05-13 00:00:00 2022-05-13 00:00:00 Case Management Racheal Sirera [facility] PRIMARY CARE PAVILLION 1.2.840.114 350.1.13.10 4.2.7.2.686 [id number] 044 [id number] [facility] 2022-05-10 22:41:00 2022-05-12 16:07:00 Outpatient Cipriano ARROYO DES[facility]ERT [facility] [id number] [facility] 2022-05-10 22:41:00 2022-05-12 16:07:00 Emergency Kasi, Robert Valladares [facility] 1.2.840.114 350.1.13.10 4.2.7.2.686 [id number] [facility] 2022-04-29 00:00:00 2022-04-29 00:00:00 Letter (Out) Cesar Palma [facility] 1.2.840.114 350.1.13.10 4.2.7.2.686 [id number] [facility] 2022-04-28 18:00:00 2022-04-28 18:15:00 Laboratory Only Only, Colleen Uc Test Unknown, Attending Noah Muñoz [facility] 1.2.840.114 350.1.13.10 4.2.7.2.686 [id number] [facility] 2022-04-28 18:00:00 2022-04-28 18:13:14 Outpatient NOAH LERMA [facility] [id number] [facility] 2022-04-27 00:00:00 2022-04-27 00:00:00 Refill Racheal Sierra [facility] PRIMARY CARE PAVILLION 1.2.840.114 350.1.13.10 4.2.7.2.686 [id number] 044 [id number] [facility] 2022-04-27 00:00:00 2022-04-27 00:00:00 Case Management Racheal Sierra [facility] PRIMARY CARE PAVILLION 1.2.840.114 350.1.13.10 4.2.7.2.686 [id number] 044 [id number] [facility] 2022-03-19 00:00:00 2022-03-19 00:00:00 Case Management Racheal Sierra [facility] PRIMARY CARE PAVILLION 1.2.840.114 350.1.13.10 4.2.7.2.686 [id number] 044 [id number] [facility] 2022-03-17 16:00:00 2022-03-17 16:15:00 Director Of Agronomy Visit [facility] Bianka [facility] AND [facility] 1.2.840.114 350.1.13.10 4.2.7.2.686 [id number] [facility] 2022-03-17 16:00:00 2022-03-17 16:00:00 Outpatient R RACHEAL SIERRA [facility] [id number] [facility] 2022-03-14 00:00:00 2022-03-14 00:00:00 Refill Bianka [facility] 1.2.840.114 350.1.13.10 4.2.7.2.686 [id number] 044 [id number] [facility] 2022-03-10 00:00:00 2022-03-10 00:00:00 Case Management Bianka [facility] PRIMARY CARE PAVILLION 1.2.840.114 350.1.13.10 4.2.7.2.686 [id number] [id number] [facility] 2022-03-06 14:00:00 2022-03-06 14:15:00 Urgent Care Cristina Foster, Attending [facility] 1.2.840.114 350.1.13.10 4.2.7.2.686 [id number] [facility] 2022-03-06 14:00:00 2022-03-06 14:00:00 Outpatient R CRISTINA FOSTER [facility] [id number] [facility] 2022-03-05 00:00:00 2022-03-05 00:00:00 Refill Racheal Sierra [facility] PRIMARY CARE PAVILLION 1.2.840.114 350.1.13.10 4.2.7.2.686 [id number] 044 [id number] [facility] 2022-03-03 16:45:00 2022-03-03 17:00:00 Director Of Agronomy Visit [facility] Sierra Racheal [facility] AND [facility] 1.2.840.114 350.1.13.10 4.2.7.2.686 [id number] [facility] 2022-03-03 16:45:00 2022-03-03 16:45:00 Outpatient R RACHEAL SIERRA [facility] [id number] [facility] 2022-03-02 00:00:00 2022-03-02 00:00:00 Case Management Racheal Sierra [facility] PRIMARY CARE PAVILLION 1.2.840.114 350.1.13.10 4.2.7.2.686 [id number] 044 [id number] [facility] 2022-02-11 14:00:00 2022-02-11 15:37:48 Outpatient R RACHEAL SIERRA [facility] [id number] [facility] 2022-02-11 14:00:00 2022-02-11 15:37:48 Office Visit Racheal Sierra [facility] PRIMARY CARE PAVILLION 1.2.840.114 350.1.13.10 4.2.7.2.686 [id number] [id number] [facility] 2022-02-11 14:30:00 2022-02-11 14:45:00 Director Of Agronomy Visit [facility] Sierra [facility] PRIMARY CARE PAVILLION 1.2.840.114 350.1.13.10 4.2.7.2.686 [id number] [facility] 2022-02-11 00:00:00 2022-02-11 00:00:00 Case Management [place]al [facility] PRIMARY CARE PAVILLION 1.2.840.114 350.1.13.10 4.2.7.2.686 [id number] [facility] 2021-12-29 00:00:00 2021-12-29 00:00:00 Case Management [facility] PRIMARY CARE PAVILLION 1.2.840.114 350.1.13.10 4.2.7.2.686 [id number] [facility] 2021-12-28 00:00:00 2021-12-28 00:00:00 Case Management [facility] PRIMARY CARE PAVILLION 1.2.840.114 350.1.13.10 4.2.7.2.686 [id number] [facility] 2021-12-23 14:15:00 2021-12-23 14:30:00 Director Of Agronomy Visit [facility] 1.2.840.114 350.1.13.10 4.2.7.2.686 [id number] [facility] 2021-12-23 14:15:00 2021-12-23 14:15:00 Outpatient R [facility]ANKA [facility] [id number] [facility] 2021-12-17 10:00:00 2021-12-17 10:00:00 Outpatient [facility]ANKA [facility] [id number] [facility] 2021-12-16 00:00:00 2021-12-16 00:00:[address] [facility] PRIMARY CARE PAVILLION 1.2.840.114 350.1.13.10 4.2.7.2.686 [id number] [facility] 2021-12-03 00:00:00 2021-12-03 00:00:00 Refill Racheal Sierra [facility] PRIMARY CARE PAVILLION 1.2.840.114 350.1.13.10 4.2.7.2.686 [id number] [facility] 2021-11-11 12:30:00 2021-11-11 23:59:00 Hospital Encounter Atul Dimasmadhavi [facility] 1.2.840.114 350.1.13.10 4.2.7.2.686 [id number] [facility] 2021-11-11 00:00:00 2021-11-11 23:59:00 Outpatient R TA DIMAS [facility] ACO [id number] [facility] 2021-11-11 15:30:00 2021-11-11 15:45:00 Director Of Agronomy Visit [facility] Racheal Sierra [facility] 1.2.840.114 350.1.13.10 4.2.7.2.686 [id number] [facility] 2021-11-08 00:00:00 2021-11-08 00:00:00 Case Management Bianka [facility] PRIMARY CARE PAVILLION 1.2.840.114 350.1.13.10 4.2.7.2.686 [id number] [facility] 2021-11-06 16:45:00 2021-11-06 16:45:00 Outpatient R [facility] [id number] [facility] 2021-11-05 16:00:00 2021-11-05 16:00:00 Outpatient R RACHEAL SIERRA [facility] [id number] [facility] 2021-10-29 00:00:00 2021-10-29 00:00:00 [facility] 1.2.840.114 350.1.13.10 4.2.7.2.686 [id number] [facility] 2021-10-24 16:30:00 2021-10-24 16:30:00 Laboratory Only Only, Colleen Uc Test Unknown, Attending Amber [facility] 1.2.840.114 350.1.13.10 4.2.7.2.686 [id number] [facility] 2021-10-24 16:30:00 2021-10-24 16:26:25 Outpatient R AMBER HURTADO [facility] [id number] [facility] 2021-10-24 00:00:00 2021-10-24 00:00:00 Orders Only Doctor Unassigned, [place] [facility] 1.2.840.114 350.1.13.10 4.2.7.2.686 [id number] [facility] 2021-10-15 00:00:00 2021-10-15 00:00:00 Refill Racheal Sierra [facility] PAVILLION 1.2.840.114 350.1.13.10 4.2.7.2.686 [id number] 044 [id number] [facility] 2021-08-20 11:30:00 2021-08-20 11:45:00 Director Of Agronomy Visit Pcp-Lab Racheal Sierra [facility] PAVILLION 1.2.840.114 350.1.13.10 4.2.7.2.686 [id number] [facility] 2021-08-20 09:00:00 2021-08-20 11:10:07 Office Visit Racheal Sierra [facility] C[facility] PAVMARYANNEON 1.2.840.114 350.1.13.10 4.2.7.2.686 [id number] 044 [id number] [facility] 2021-08-20 09:00:00 2021-08-20 11:10:07 Outpatient R RACHEAL SIERRA [facility] [id number] [facility] 2021-08-20 09:00:00 2021-08-20 09:00:00 Outpatient RACHEAL SEYMOUR [facility] [id number] [facility] 2021-08-19 00:00:00 2021-08-19 00:00:00 Case Management Racheal Sierra [facility] PRIMARY CARE PAVILLION 1.2.840.114 350.1.13.10 4.2.7.2.686 [id number] [id number] [facility] 2021-07-21 00:00:00 2021-07-21 00:00:00 Case Management Racheal Sierra [facility] CARE PAVILLION 1.2.840.114 350.1.13.10 4.2.7.2.686 [id number] [id number] [facility] 2021-07-19 00:00:00 2021-07-19 00:00:00 Racheal Ragland [facility] C[facility]AVILL[facility] 1.2.840.114 350.1.13.10 4.2.7.2.686 [id number] 044 [id number] [facility] 2021-06-30 00:00:00 2021-06-30 00:00:00 Racheal Ragland [facility]AV[facility] 1.2.840.114 350.1.13.10 4.2.7.2.686 [id number] 044 [id number] [facility] 2021-06-25 15:00:00 2021-06-25 15:15:00 Director Of Agronomy Visit Scc-Lab Bianka Racheal [facility] 1.2.840.114 350.1.13.10 4.2.7.2.686 [id number] [facility] 2021-06-25 15:00:00 2021-06-25 15:00:00 Outpatient Rafaela RACHEAL [facility]ERRA [facility] [id number] [facility] 2021-06-25 10:00:00 2021-06-25 10:00:00 Outpatient R RACHEAL [facility] [id number] [facility] 2021-06-24 00:00:00 2021-06-24 00:00:00 Case Management Racheal Sierra [facility] CARE [facility]AV[facility] 1.2.840.114 350.1.13.10 4.2.7.2.686 [id number] 044 [id number] [facility] 2021-06-19 00:00:00 2021-06-19 00:00:00 Case Management Racheal Sierra [facility] C[facility] PAVMARYANNEON 1.2.840.114 350.1.13.10 4.2.7.2.686 [id number] [id number] [facility] 2021-06-08 00:00:00 2021-06-08 00:00:00 Orders Only Doctor Unassigned, [place] [facility] 1.2.840.114 350.1.13.10 4.2.7.2.686 [id number] [facility] 2021-06-07 00:00:00 2021-06-07 00:00:00 Case Management Racheal Sierra [facility] PAVMARYANNEON 1.2.840.114 350.1.13.10 4.2.7.2.686 [id number] [id number] [facility] 2021-06-04 14:30:00 2021-06-04 16:30:08 Outpatient R ROLO FUENTES [facility] [id number] [facility] 2021-06-04 14:30:00 2021-06-04 16:30:08 Office Visit Rolo Fuentes [facility] 1.2.840.114 350.1.13.10 4.2.7.2.686 [id number] [facility] 2021-05-30 00:00:00 2021-05-30 00:00:00 Case Management Racheal Sierra [facility] CARE PAVILLION 1.840.114 350.1.13.10 4.2.7.2.686 [id number] [id number] [facility] 2021-05-27 21:50:00 2021-05-28 18:45:00 Outpatient Alejandro LIM [facility] [id number] [facility] 2021-05-27 21:50:00 2021-05-28 18:45:00 Hospital Encounter Robert Arroyo [facility] 1..114 350.1.13.10 4.2.7.2.686 [id number] [facility] 2021-05-27 21:50:00 2021-05-28 18:45:00 Outpatient [facility] [id number] [facility] 2021-05-27 00:00:00 2021-05-27 00:00:00 Sreedhar Sierra Racheal Ramírez [facility] C[facility] PAVMARYANNEON 1..114 350.1.13.10 4.2.7.2.686 [id number] 044 [id number] [facility] 2021-05-04 14:30:00 2021-05-04 15:30:00 Nurse Visit Therapy, Clc Covid Db Lomeli [facility] 1..114 350.1.13.10 4.2.7.2.686 [id number] [id number] [facility] 2021-05-04 14:30:00 2021-05-04 14:30:00 Outpatient DB MCCARTHY [facility] [id number] [facility] 2021-05-04 00:00:00 2021-05-04 00:00:00 Orders Only Doctor Unassigned, [place] [facility] 1.0.114 350.1.13.10 4.2.7.2.686 [id number] [facility] 2021-05-02 00:00:00 2021-05-02 00:00:00 Case Management BiankaRacheal [facility]AVILL[facility] 1.2.840.114 350.1.13.10 4.2.7.2.686 [id number] [id number] [facility] 2021-05-01 14:30:00 2021-05-01 14:45:00 Laboratory Only Only, Fri Cbc Test Chong Azar [facility] 1.2.840.114 350.1.13.10 4.2.7.2.686 [id number] [facility] 2021-05-01 14:30:00 2021-05-01 14:37:02 Outpatient R CHONG AZAR [facility] [id number] [facility] 2021-04-27 00:00:00 2021-04-27 00:00:00 Case Management BiankaRacheal [facility] C[facility] PAVMARYANNEON 1.2.840.114 350.1.13.10 4.2.7.2.686 [id number] [id number] [facility] 2021-04-09 10:30:00 2021-04-09 10:30:00 Outpatient R STEVE REDD [facility] [id number] [facility] 2021-04-09 09:42:02 2021-04-09 09:57:02 Director Of Agronomy Visit Pcp-Lab Steve Redd [facility] CARE PAVILLION 1.2.840.114 350.1.13.10 4.2.7.2.686 [id number] [facility] 2021-04-09 09:07:34 2021-04-09 09:39:27 Office Visit Bianka Racheal Ramírez [facility] PR[facility] CARE PAVMARYANNEON 1.2.840.114 350.1.13.10 4.2.7.2.686 [id number] 044 [id number] [facility] 2021-04-09 09:00:00 2021-04-09 09:39:27 Outpatient R RACHEAL SIERRA [facility] [id number] [facility] 2021-04-09 00:00:00 2021-04-09 00:00:00 Case Management Racheal Sierra [facility] CARE PAVILLION 1.2.840.114 350.1.13.10 4.2.7.2.686 [id number] 044 [id number] [facility] 2021-04-06 00:00:00 2021-04-06 00:00:00 Case Management Racheal Sierra [facility] CARE PAVILLION 1.2.840.114 350.1.13.10 4.2.7.2.686 [id number] [id number] [facility] 2021-03-27 00:00:00 2021-03-27 00:00:00 Refill Racheal Sierra [facility] CARE PAVILLION 1.2.840.114 350.1.13.10 4.2.7.2.686 [id number] [id number] [facility] 2021-02-12 11:14:55 2021-02-12 11:29:55 Director Of Agronomy Visit Pcp-Lab Racheal Sierra [facility] CARE PAVILLION 1.2.840.114 350.1.13.10 4.2.7.2.686 [id number] [facility] 2021-02-12 10:42:19 2021-02-12 11:12:19 Office Visit Racheal Sierra [facility]AVILL[facility] 1.2.840.114 350.1.13.10 4.2.7.2.686 [id number] [id number] [facility] 2021-02-12 10:30:00 2021-02-12 10:30:00 Outpatient R RACHEAL [facility]ERRA [facility] [id number] [facility] 2021-02-12 00:00:00 2021-02-12 00:00:00 Case Management Racheal Sierra [facility]AV[place]IE 1.2.840.114 350.1.13.10 4.2.7.2.686 [id number] [facility] 2021-01-28 00:00:00 2021-01-28 00:00:00 Case Management Racheal Sierra [facility] [place] 1.2.840.114 350.1.13.10 4.2.7.2.686 [id number] 044 [id number] [facility] 2021-01-14 16:42:17 2021-01-14 16:57:17 Director Of Agronomy Visit Vtc-Lab Unknown, Attending [facility] AND [facility] 1.2.840.114 350.1.13.10 4.2.7.2.686 [id number] [facility] 2021-01-14 16:45:00 2021-01-14 16:45:00 Outpatient R UNKNOWN, ATTENDING [facility] [id number] [facility] 2021-01-06 00:00:00 2021-01-06 00:00:00 Case Management Racheal Sierra [facility] 1.2.840.114 350.1.13.10 4.2.7.2.686 [id number] [facility] 2021-01-02 00:00:00 2021-01-02 00:00:00 Nurse Triage Drew Camarillo, [facility] 1.2.840.114 350.1.13.10 4.2.7.2.686 [id number] [facility] 2021-01-01 00:00:00 2021-01-01 00:00:00 Outpatient [facility] [id number] [facility] 2020-12-11 00:00:00 2020-12-11 00:00:00 Case Management Racheal Sierra [facility] C[facility] PAVMARYANNEON 1.2.840.114 350.1.13.10 4.2.7.2.686 [id number] [id number] [facility] 2020-12-05 00:00:00 2020-12-05 00:00:00 Telephone Evelyn Hernandez do [facility] 1.2.840.114 350.1.13.10 4.2.7.2.686 [id number] [facility] 2020-12-04 12:46:00 2020-12-04 23:59:00 Hospital Encounter Ta Dimas [facility] 1.2.840.114 350.1.13.10 4.2.7.2.686 [id number] [facility] 2020-12-04 16:30:00 2020-12-04 16:30:00 Outpatient R RACHEAL SIERRA [facility] [id number] [facility] 2020-12-04 10:21:43 2020-12-04 12:48:12 Office Visit Diallo Ruvalcaba Robert E [facility]AVILLION 1.2.840.114 350.1.13.10 4.2.7.2.686 [id number] [id number] [facility] 2020-12-04 10:30:00 2020-12-04 10:30:00 Outpatient RACHEAL SEYMOUR [facility] [id number] [facility] 2020-12-04 10:10:13 2020-12-04 10:25:13 Director Of Agronomy Visit Pcp-Lab Racheal Sierra [facility] PR[facility] CARE PAVILLION 1.2.840.114 350.1.13.10 4.2.7.2.686 [id number] [facility] 2020-12-04 00:00:00 2020-12-04 00:00:00 Case Management Racheal Sierra [facility] CARE PAVILLION 1.2.840.114 350.1.13.10 4.2.7.2.686 [id number] [id number] [facility] 2020-12-02 17:00:10 2020-12-02 17:15:10 Director Of Agronomy Visit [facility] [facility] 1.2.840.114 350.1.13.10 4.2.7.2.686 [id number] [facility] 2020-12-02 17:15:00 2020-12-02 17:15:00 Outpatient R BIANKA [facility] [id number] [facility] 2020-12-02 00:00:00 2020-12-02 00:00:[address] [facility] PRIMARY CARE PAVILLION 1.2.840.114 350.1.13.10 4.2.7.2.686 [id number] 044 [id number] [facility] 2020-11-09 00:00:00 2020-11-09 00:00:[address] [facility] PRIMARY CARE PAVILLION 1.2.840.114 350.1.13.10 4.2.7.2.686 [id number] 044 [id number] [facility] 2020-11-08 00:00:00 2020-11-08 00:00:[address] [facility] PRIMARY CARE PAVILLION 1.2.840.114 350.1.13.10 4.2.7.2.686 [id number] [facility] 2020-11-05 14:31:28 2020-11-05 14:46:28 Director Of Agronomy Visit [facility] 1.2.840.114 350.1.13.10 4.2.7.2.686 [id number] [facility] 2020-11-05 14:30:00 2020-11-05 14:30:00 Outpatient R BIANKA [facility] [id number] [facility] 2020-11-04 00:00:00 2020-11-04 00:00:00 Case Management Racheal Sierra [facility] CARE PAVILLION 1.2.840.114 350.1.13.10 4.2.7.2.686 [id number] 044 [id number] [facility] 2020-10-25 00:00:00 2020-10-25 00:00:00 Case Management Racheal Sierra [facility] CARE PAVILLION 1.2.840.114 350.1.13.10 4.2.7.2.686 [id number] 044 [id number] [facility] 2020-10-14 00:00:00 2020-10-14 00:00:00 Case Management Racheal Sierra [facility] CARE PAVILLION 1.2.840.114 350.1.13.10 4.2.7.2.686 [id number] [id number] [facility] 2020-10-09 10:24:50 2020-10-09 23:59:00 Hospital Encounter Kirill Gabe [facility] 1.2.840.114 350.1.13.10 4.2.7.2.686 [id number] [facility] 2020-10-09 11:32:12 2020-10-09 11:47:12 Director Of Agronomy Visit Pcp-Lab Steve Redd [facility] PRIMARY CARE PAVMARYANNEON 1.2.840.114 350.1.13.10 4.2.7.2.686 [id number] [facility] 2020-10-09 10:48:04 2020-10-09 11:18:04 Office Visit Racheal Sierra [facility] PRIMARY CARE PAVMARYANNEON 1.2.840.114 350.1.13.10 4.2.7.2.686 [id number] [facility] 2020-10-09 11:00:00 2020-10-09 11:00:00 Outpatient R RACHEAL SIERRA [facility] [id number] [facility] 2020-10-09 09:26:01 2020-10-09 10:23:00 Hospital Encounter Nancy [facility] 1.20.114 350.1.13.10 4.2.7.2.686 [id number] [facility] 2020-10-09 00:00:00 2020-10-09 00:00:00 Case Management Racheal Sierra [facility] PR[facility] CARE PAVILLION 1.2840.114 350.1.13.10 4.2.7.2.686 [id number] [facility] 2020-10-03 07:36:02 2020-10-03 23:59:00 Hospital Encounter Johan [facility] 1.2.114 350.1.13.10 4.2.7.2.686 [id number] [facility] 2020-10-03 00:00:00 2020-10-03 00:00:00 Outpatient R RADIOLOGY [facility] [id number] [facility] 2020-10-02 16:57:05 2020-10-02 17:12:05 Director Of Agronomy Visit Vtc-Osmany Hughes [facility] 1.2.114 350.1.13.10 4.2.7.2.686 [id number] [facility] 2020-10-02 16:45:00 2020-10-02 16:45:00 Outpatient R OSMANY ZUÑIGA [facility] [id number] [facility] 2020-09-30 00:00:00 2020-09-30 00:00:00 Refill Racheal Sierra [facility] PR[facility] CARE PAVILLION 1.2.114 350.1.13.10 4.2.7.2.686 [id number] [id number] [facility] 2020-09-24 00:00:00 2020-09-24 00:00:00 Case Management Racheal Sierra [facility] CARE PAVILLION 1.2.840.114 350.1.13.10 4.2.7.2.686 [id number] [id number] [facility] 2020-09-24 00:00:00 2020-09-24 00:00:00 Case Management [facility] 1.2.840.114 350.1.13.10 4.2.7.2.686 [id number] [facility] 2020-09-24 00:00:00 2020-09-24 00:00:00 Telephone [facility] 1.2.840.114 350.1.13.10 4.2.7.2.686 [id number] [facility] 2020-09-23 16:11:06 2020-09-23 16:26:06 Director Of Agronomy Visit [facility] 1.2.840.114 350.1.13.10 4.2.7.2.686 [id number] [facility] 2020-09-23 15:31:00 2020-09-23 16:10:03 Office Visit [facility] 1.2.840.114 350.1.13.10 4.2.7.2.686 [id number] [facility] 2020-09-23 15:15:00 2020-09-23 15:15:00 Outpatient R OSMANY ZUÑIGA [facility] [id number] [facility] 2020-09-19 00:00:00 2020-09-19 00:00:00 Case Management Racheal Sierra [facility] PR[facility] CARE PAVILLION 1.2.840.114 350.1.13.10 4.2.7.2.686 [id number] [id number] [facility] 2020-09-09 07:29:13 2020-09-09 23:59:00 Hospital Encounter Gabe Dawkins, [facility] 1.114 350.1.13.10 4.2.7.2.686 [id number] [facility] 2020-09-09 00:00:00 2020-09-09 00:00:00 Outpatient GABE VALERIO [facility] [id number] [facility] 2020-09-05 14:13:11 2020-09-05 23:59:00 Hospital Encounter Gabe Dawkins [facility] 1.114 350.1.13.10 4.2.7.2.686 [id number] [facility] 2020-09-05 00:00:00 2020-09-05 00:00:00 Outpatient GABE VALERIO [facility] [id number] [facility] 2020-09-04 00:00:00 2020-09-04 00:00:00 Case Management Sindy Fleming [facility] 1.114 350.1.13.10 4.2.7.2.686 [id number] [facility] 2020-08-28 10:36:26 2020-08-28 10:51:26 Director Of Agronomy Visit [facility]Racheal Concepcion [facility] MULTISPEC IALTY [facility] AND [facility] 1.114 350.1.13.10 4.2.7.2.686 [id number] [facility] 2020-08-28 08:38:24 2020-08-28 08:53:24 Office Visit Rolo Fuentes [facility]ISPEC [facility]TY [facility] AND [facility] 1.114 350.1.13.10 4.2.7.2.686 [id number] [facility] 2020-08-28 08:30:00 2020-08-28 08:30:00 Outpatient ROLO VERDUZCO [facility] [id number] [facility] 2020-08-18 15:20:00 2020-08-18 15:20:00 Outpatient JENI PAN [facility] [id number] [facility] 2020-08-18 00:00:00 2020-08-18 00:00:00 Outpatient GCCOVIDV [facility] [id number] [facility] 2020-08-14 14:15:00 2020-08-14 14:15:00 Outpatient ROLO VERDUZCO [facility] [id number] [facility] 2020-08-14 00:00:00 2020-08-14 00:00:00 Case Management Bianka [facility] PRIMARY CARE [place] 1.2.840.114 350.1.13.10 4.2.7.2.686 [id number] [facility] 2020-08-13 09:00:00 2020-08-13 23:59:00 Hospital Encounter Racheal Sierra [facility] 1.2.840.114 350.1.13.10 4.2.7.2.686 [id number] [facility] 2020-08-13 00:00:00 2020-08-13 00:00:00 Outpatient RACHEAL SEYMOUR [facility] [id number] [facility] 2020-07-25 16:10:00 2020-07-25 16:10:00 Outpatient CHONG AZAR [facility] [id number] [facility] 2020-07-25 00:00:00 2020-07-25 00:00:00 Outpatient GCCOVIDV [facility]OVID[facility] [id number] [facility] V 2020-07-24 15:00:00 2020-07-24 15:00:00 Outpatient VIRGILIO MORLEY [facility] [id number] [facility] 2020-07-24 00:00:00 2020-07-24 00:00:00 Case Management BiankaRacheal [facility] [place] 1.2840.114 350.1.13.10 4.2.7.2.686 [id number] [facility] 2020-07-23 14:20:00 2020-07-23 14:20:00 Outpatient JENI PAN [facility] [id number] [facility] 2020-07-21 13:30:00 2020-07-21 13:30:00 Outpatient R BIANKA RACHEAL [facility] [id number] [facility] 2020-07-21 00:00:00 2020-07-21 00:00:00 Patient Outreach Chong Azar [facility] [place] 1.2840.114 350.1.13.10 4.2.7.2.686 [id number] [facility] 2020-07-21 00:00:00 2020-07-21 00:00:00 Orders Only Doctor Unassigned, [place] [facility] 1.2840.114 350.1.13.10 4.2.7.2.686 [id number] [facility] 2020-07-17 10:58:37 2020-07-17 11:01:21 Director Of Agronomy Visit Pcp-Lab Bianka Racheal Ramírez [facility] [place] 1.2840.114 350.1.13.10 4.2.7.2.686 [id number] [facility] 2020-07-17 11:00:00 2020-07-17 11:00:00 Outpatient R BIANKA RACHEAL [facility] [id number] [facility] 2020-07-17 10:05:28 2020-07-17 10:25:28 Office Visit Bianka Racheal Ramírez [facility] [place] 1.2840.114 350.1.13.10 4.2.7.2.686 [id number] [facility] 2020-07-07 00:00:00 2020-07-07 00:00:00 Case Management Racheal Sierra [facility] PRIMARY CARE PAVILLION 1.2.840.114 350.1.13.10 4.2.7.2.686 [id number] [facility] 2020-07-06 00:00:00 2020-07-06 00:00:00 Case Management Racheal Sierra [facility] [place] 1.2.840.114 350.1.13.10 4.2.7.2.686 [id number] [facility] 2020-06-24 14:45:00 2020-06-24 14:45:00 Outpatient OSMANY MOORE [facility] [id number] [facility] 2020-06-18 00:00:00 2020-06-18 00:00:00 Case Management Racheal Sierra [facility] [id number] 350.1.13.10 4.2.7.2.686 [id number] [facility] 2020-06-16 10:15:00 2020-06-16 10:15:00 Outpatient OSMANY MOORE [facility] [id number] [facility] 2020-06-13 00:00:00 2020-06-13 00:00:00 Telephone Aure Knight [facility] [id number] 350.1.13.10 4.2.7.2.686 [id number] [facility] 2020-06-12 10:03:11 2020-06-12 23:59:00 Outpatient R AURE KNIGHT [facility] [id number] [facility] 2020-06-12 10:00:00 2020-06-12 23:59:00 Hospital Encounter Aure Knight [facility] 1.2840.114 350.1.13.10 4.2.7.2.686 [id number] [facility] 2020-06-09 13:00:00 2020-06-09 13:00:00 Outpatient R [facility]ARA [facility] [id number] [facility] 2020-06-03 00:00:00 2020-06-03 00:00:00 Telephone Zara [facility] [id number] 350.1.13.10 4.2.7.2.686 [id number] [facility] 2020-05-26 00:00:00 2020-05-26 00:00:00 Telephone Aure Knight [facility] 1.2840.114 350.1.13.10 4.2.7.2.686 [id number] [facility] 2020-05-22 13:33:26 2020-05-22 14:44:07 Office Visit Aure Knight [facility] 1.2840.114 350.1.13.10 4.2.7.2.686 [id number] [facility] 2020-05-22 13:30:00 2020-05-22 13:30:00 Outpatient R AURE KNIGHT [facility] [id number] [facility] 2020-05-12 09:45:00 2020-05-12 09:45:00 Outpatient R [facility] [id number] [facility] 2020-05-08 10:05:18 2020-05-08 10:20:18 Director Of Agronomy Visit [facility]al Concepcion [facility] 1.2840.114 350.1.13.10 4.2.7.2.686 [id number] [facility] 2020-05-08 10:00:00 2020-05-08 10:00:00 Outpatient R RACHEAL SIERRA [facility] [id number] [facility] 2020-04-30 00:00:00 2020-04-30 00:00:00 Case Management Racheal Sierra [facility] [id number] 350.1.13.10 4.2.7.2.686 [id number] [facility] 2020-04-15 00:00:00 2020-04-15 00:00:00 Case Management Racheal Sierra [facility]AVILLION 1.2.840.114 350.1.13.10 4.2.7.2.686 [id number] 044 [id number] [facility] 2020-04-14 00:00:00 2020-04-14 00:00:00 Case Management Racheal Sierra [facility] 1.2.840.114 350.1.13.10 4.2.7.2.686 [id number] 044 [id number] [facility] 2020-04-13 00:00:00 2020-04-13 00:00:00 Nurse Triage Ivanna [facility] 1.2.840.114 350.1.13.10 4.2.7.2.686 [id number] [facility] 2020-04-12 00:00:00 2020-04-12 00:00:00 Case Management Racheal Sierra [facility] 1.2.840.114 350.1.13.10 4.2.7.2.686 [id number] [id number] [facility] 2020-04-11 08:25:23 2020-04-11 23:59:00 Hospital Encounter Racheal Sierra [facility] 1.2.840.114 350.1.13.10 4.2.7.2.686 [id number] [facility] 2020-04-11 08:25:23 2020-04-11 23:59:00 Outpatient R RACHEAL ISERRA [facility] [id number] [facility] 2020-04-10 00:00:00 2020-04-10 00:00:00 Refill Racheal Sierra [facility] 1.2.840.114 350.1.13.10 4.2.7.2.686 [id number] 044 [id number] [facility] 2020-04-04 08:44:45 2020-04-04 09:04:45 Office Visit Racheal Sierra [facility] MARLENE 1.2840.114 350.1.13.10 4.2.7.2.686 [id number] 044 [id number] [facility] 2020-04-04 08:40:00 2020-04-04 08:40:00 Outpatient R RACHEAL [facility]ERRA [facility] [id number] [facility] 2020-03-26 10:11:21 2020-03-26 10:26:21 Director Of Agronomy Visit [facility] AND [facility] 1.0.114 350.1.13.10 4.2.7.2.686 [id number] [facility] 2020-03-26 10:15:00 2020-03-26 10:15:00 Outpatient R RACHEAL [facility] [id number] [facility] 2020-03-20 00:00:00 2020-03-20 00:00:00 Case Management Racheal Sierra [facility] PAVMOOKIE 1.2.840.114 350.1.13.10 4.2.7.2.686 [id number] [id number] [facility] 2020-03-19 08:18:22 2020-03-19 08:33:22 Director Of Agronomy Visit [facility] Steve Redd [facility] 1.2840.114 350.1.13.10 4.2.7.2.686 [id number] [facility] 2020-03-19 08:15:00 2020-03-19 08:15:00 Outpatient R TRAMAINE STEVE [facility] [id number] [facility] 2020-03-19 00:00:00 2020-03-19 00:00:00 Case Management Racheal Sierra [facility] 1.2.840.114 350.1.13.10 4.2.7.2.686 [id number] [id number] [facility] 2020-03-12 00:00:00 2020-03-12 00:00:00 Case Management Racheal Sierra [facility] 1.2.840.114 350.1.13.10 4.2.7.2.686 [id number] [id number] [facility] 2020-03-04 00:00:00 2020-03-04 00:00:00 Case Management Bianka [facility] PRIMARY CARE PAVILLION 1.2.840.114 350.1.13.10 4.2.7.2.686 [id number] [id number] [facility] 2020-03-03 00:00:00 2020-03-03 00:00:00 Racheal Ragland [facility] 1.2.840.114 350.1.13.10 4.2.7.2.686 [id number] 044 [id number] [facility] 2020-02-02 00:00:00 2020-02-02 00:00:00 [facility] Racheal Sierra [facility]AV[facility] 1.2.840.114 350.1.13.10 4.2.7.2.686 [id number] 044 [id number] [facility] 2020-01-04 00:00:00 2020-01-04 00:00:00 Case Management Bianka [facility] PRIMARY CARE PAVILLION 1.2.840.114 350.1.13.10 4.2.7.2.686 [id number] [id number] [facility] 2020-01-03 11:30:00 2020-01-03 11:30:00 Outpatient R BIANKARACHEAL [facility] [id number] [facility] 2020-01-03 11:02:02 2020-01-03 11:17:02 Director Of Agronomy Visit [facility] Racheal Sierra [facility] 1.2.840.114 350.1.13.10 4.2.7.2.686 [id number] [facility] 2019-12-21 10:40:00 2019-12-21 10:40:00 Outpatient R STEVE REDD [facility] [id number] [facility] 2019-12-19 00:00:00 2019-12-19 00:00:00 Case Management Bianka [facility] PRIMARY CARE PAVILLION 1.2.840.114 350.1.13.10 4.2.7.2.686 [id number] [id number] [facility] 2019-12-10 00:00:00 2019-12-10 00:00:00 Case Management Racheal Sierra [facility] 1.2.840.114 350.1.13.10 4.2.7.2.686 [id number] 044 [id number] [facility] 2019-11-17 00:00:00 2019-11-17 00:00:00 Case Management Bianka [facility] PR[facility] CARE PAVILLION 1.2.840.114 350.1.13.10 4.2.7.2.686 [id number] 044 [id number] [facility] 2019-10-23 00:00:00 2019-10-23 00:00:00 Case Management Bianka [facility] PR[facility] CARE PAVILLION 1.2.840.114 350.1.13.10 4.2.7.2.686 [id number] 044 [id number] [facility] 2019-10-11 00:00:00 2019-10-11 00:00:00 Case Management Racheal Sierra [facility]AVILL[facility] 1.2.840.114 350.1.13.10 4.2.7.2.686 [id number] 044 [id number] [facility] 2019-10-02 00:00:00 2019-10-02 00:00:00 Refill Racheal Sierra [facility]AVILL[facility] 1.2.840.114 350.1.13.10 4.2.7.2.686 [id number] 044 [id number] [facility] 2019-09-21 10:43:58 2019-09-22 07:52:17 Office Visit Tramaine Steve [facility] PAVMARYANNEON 1.2.840.114 350.1.13.10 4.2.7.2.686 [id number] 044 [id number] [facility] 2019-09-21 10:40:00 2019-09-21 10:40:00 Outpatient R TRAMAINESTEVE YU [facility] [id number] [facility] 2019-09-21 09:52:31 2019-09-21 10:02:31 Director Of Agronomy Visit Pcp-Lab TramaineSteve yu BiankaRacheal [facility] 1.2.840.114 350.1.13.10 4.2.7.2.686 [id number] [facility] 2019-09-07 00:00:00 2019-09-07 00:00:00 Telephone Steve Redd [facility]AV[facility] 1.2.840.114 350.1.13.10 4.2.7.2.686 [id number] 044 [id number] [facility] 2019-09-06 00:00:00 2019-09-06 00:00:00 Case Management Racheal Sierra [facility] PAVILLION 1.2.840.114 350.1.13.10 4.2.7.2.686 [id number] 044 [id number] [facility] 2019-08-27 00:00:00 2019-08-27 00:00:00 Refill Racheal Sierra [facility] 1.2.840.114 350.1.13.10 4.2.7.2.686 [id number] 044 [id number] [facility] 2019-08-20 00:00:00 2019-08-20 00:00:00 Case Management Racheal Sierra [facility] 1.2.840.114 350.1.13.10 4.2.7.2.686 [id number] 044 [id number] [facility] 2019-08-04 00:00:00 2019-08-04 00:00:00 Case Management Racheal Sierra [facility] 1.2.840.114 350.1.13.10 4.2.7.2.686 [id number] 044 [id number] [facility] 2019-07-31 00:00:00 2019-07-31 00:00:00 Case Management Racheal Sierra [facility]AVILL[facility] 1.2.840.114 350.1.13.10 4.2.7.2.686 [id number] 044 [id number] [facility] 2019-07-22 00:00:00 2019-07-22 00:00:00 Case Management Racheal Sierra [facility] 1.2.840.114 350.1.13.10 4.2.7.2.686 [id number] 044 [id number] [facility] 2019-07-19 00:00:00 2019-07-19 00:00:00 Case Management Racheal Sierra [facility]AVILL[facility] 1.2.840.114 350.1.13.10 4.2.7.2.686 [id number] 044 [id number] [facility] 2019-07-07 00:00:00 2019-07-07 00:00:00 Case Management Racheal Sierra [facility]AVILL[facility] 1.2.840.114 350.1.13.10 4.2.7.2.686 [id number] 044 [id number] [facility] 2019-06-25 00:00:00 2019-06-25 00:00:00 Case Management Racheal Sierra [facility] PAV[facility] 1.2.840.114 350.1.13.10 4.2.7.2.686 [id number] 044 [id number] [facility] 2019-06-21 15:26:20 2019-06-21 16:12:14 Office Visit Raudel, [facility] Resident Racheal Sierra Pooja R [facility] 1.0.114 350.1.13.10 4.2.7.2.686 [id number] [facility] 2019-06-21 09:29:07 2019-06-21 09:39:07 Director Of Agronomy Visit [facility] Racheal Sierra [facility] AND [facility] 1.840.114 350.1.13.10 4.2.7.2.686 [id number] [facility] 2019-06-21 09:30:00 2019-06-21 09:30:00 Outpatient R RACHEAL SIERRA [facility] [id number] [facility] 2019-06-21 00:00:00 2019-06-21 00:00:00 Orders Only Doctor Unassigned, [place] [facility] 1.840.114 350.1.13.10 4.2.7.2.686 [id number] [facility] 2019-06-21 00:00:00 2019-06-21 00:00:00 Case Management Racheal Sierra [facility] 1.840.114 350.1.13.10 4.2.7.2.686 [id number] 044 [id number] [facility] 2019-06-21 00:00:00 2019-06-21 00:00:00 Case Management Bianka [facility] PRIMARY CARE PAVILLION 1.2840.114 350.1.13.10 4.2.7.2.686 [id number] 044 [id number] [facility] 2019-06-18 00:00:00 2019-06-18 00:00:00 Case Management Racheal Sierra [facility] PAVILL[facility] 1.2.840.114 350.1.13.10 4.2.7.2.686 [id number] 044 [id number] [facility] 2019-05-29 00:00:00 2019-05-29 00:00:00 Case Management Racheal Sierra [facility] PAVILL[facility] 1.2.840.114 350.1.13.10 4.2.7.2.686 [id number] 044 [id number] [facility] 2019-05-29 00:00:00 2019-05-29 00:00:00 S[facility] 1.2.840.114 350.1.13.10 4.2.7.2.686 [id number] [facility] 2019-05-28 10:45:00 2019-05-28 10:30:46 Outpatient R RACHEAL SIERRA [facility] [id number] [facility] 2019-05-28 10:28:46 2019-05-28 10:30:46 Director Of Agronomy Visit [facility] Racheal Sierra [facility] 1.2.840.114 350.1.13.10 4.2.7.2.686 [id number] [facility] 2019-05-28 00:00:00 2019-05-28 00:00:00 Case Management Racheal Sierra [facility]AVILL[facility] 1.2.840.114 350.1.13.10 4.2.7.2.686 [id number] [id number] [facility] 2019-05-28 00:00:00 2019-05-28 00:00:00 Case Management Racheal Sierra [facility]AV[facility] 1.2.840.114 350.1.13.10 4.2.7.2.686 [id number] 044 [id number] [facility] 2019-05-26 00:00:00 2019-05-26 00:00:00 [place] [facility] 1.84.114 350.1.13.10 4.2.7.2.686 [id number] 019 [id number] [facility] 2019-05-23 15:54:32 2019-05-23 16:33:43 Routine Visit Rosaura [facility] 1..114 350.1.13.10 4.2.7.2.686 [id number] [facility] 2019-05-23 15:45:00 2019-05-23 16:33:43 Outpatient R [facility]A [facility] [id number] [facility] 2019-05-23 00:00:00 2019-05-23 00:00:00 Orders Only Doctor Unassigned, [place] [facility] 1.84.114 350.1.13.10 4.2.7.2.686 [id number] [facility] 2019-05-17 13:00:00 2019-05-17 13:00:00 Outpatient SJ MULLINS [facility] [id number] [facility] 2019-05-09 09:00:00 2019-05-09 09:43:22 Outpatient MONCHO BOLTON [facility] [id number] [facility] 2019-05-08 08:10:00 2019-05-08 08:10:00 Outpatient RACHEAL SEYMOUR [facility] [id number] [facility] 2019-04-19 13:00:00 2019-04-19 14:59:52 Outpatient SJ MULLINS [facility] [id number] [facility] 2019-01-10 09:08:07 2019-01-10 09:23:07 Director Of Agronomy Visit [facility] Racheal Sierra [facility] 1.84.114 350.1.13.10 4.2.7.2.686 [id number] [facility] 2019-01-10 08:53:29 2019-01-10 09:03:54 Director Of Agronomy Visit Lab, [facility] Steve Redd [facility] 1.2.840.114 350.1.13.10 4.2.7.2.686 [id number] [facility] 2019-01-10 07:59:49 2019-01-10 08:44:49 Director Of Agronomy Visit 1, [facility] Us Room Sj Medellin Shannon M [facility] 1.2.840.114 350.1.13.10 4.2.7.2.686 [id number] [facility] 2019-01-10 00:00:00 2019-01-10 00:00:00 Case Management Rosmery Guzman [facility] 1.2.840.114 350.1.13.10 4.2.7.2.686 [id number] [facility] 2019-01-10 00:00:00 2019-01-10 00:00:00 Case Management Uche Funk [facility] 1.2.840.114 350.1.13.10 4.2.7.2.686 [id number] [facility] 2019-01-10 00:00:00 2019-01-10 00:00:00 Case Management [facility] PRIMARY CARE PAVILLION 1.2.840.114 350.1.13.10 4.2.7.2.686 [id number] 044 [id number] [facility] 2019-01-10 00:00:00 2019-01-10 00:00:00 Case Management [facility] PRIMARY CARE PAVILLION 1.2.840.114 350.1.13.10 4.2.7.2.686 [id number] 044 [id number] [facility] 2019-01-05 14:19:33 2019-01-09 15:00:11 Routine [facility] Uche Funk [facility] 1.2.840.114 350.1.13.10 4.2.7.2.686 [id number] [facility] 2019-01-09 00:00:00 2019-01-09 00:00:00 Telephone Uche Funk [facility] 1.2.840.114 350.1.13.10 4.2.7.2.686 [id number] [facility] 2019-01-04 09:14:04 2019-01-08 10:56:39 Office Visit Bharathi Curtis Laura R [facility]AV[facility] 1.2.840.114 350.1.13.10 4.2.7.2.686 [id number] 044 [id number] [facility] 2019-01-04 08:59:34 2019-01-04 09:07:23 Director Of Agronomy Visit [facility] Racheal Sierra [facility] 1.2.840.114 350.1.13.10 4.2.7.2.686 [id number] [facility] 2019-01-04 00:00:00 2019-01-04 00:00:00 Orders Only Doctor Unassigned, [place] [facility] 1.2.840.114 350.1.13.10 4.2.7.2.686 [id number] [facility] 2019-01-03 00:00:00 2019-01-03 00:00:00 Case Management Racheal Sierra [facility] PAVILLION 1.2.840.114 350.1.13.10 4.2.7.2.686 [id number] 044 [id number] [facility] 2018-12-27 15:04:37 2018-12-27 15:19:37 Director Of Agronomy Visit [facility] Moncho Peña [facility] 1.2.840.114 350.1.13.10 4.2.7.2.686 [id number] [facility] 2018-12-27 13:51:58 2018-12-27 14:59:37 Routine Visit Pool, [facility] Res[facility] Ernesto, Felisa Peña [facility] 1.2.840.114 350.1.13.10 4.2.7.2.686 [id number] [facility] 2018-12-20 15:23:39 2018-12-20 16:35:05 Director Of Agronomy Visit 1, [facility] Us Room Madalyn, Zoë Crabtree Narinder, [facility] 1.2840.114 350.1.13.10 4.2.7.2.686 [id number] [facility] 2018-12-08 09:59:10 2018-12-08 11:07:06 Routine Visit Fellow[facility] 1.2.840.114 350.1.13.10 4.2.7.2.686 [id number] [facility] 2018-12-06 14:11:18 2018-12-06 15:06:32 Nurse Visit Visit/Fp, [facility] Nurse Boone Jones [facility] 1.2.840.114 350.1.13.10 4.2.7.2.686 [id number] [facility] 2018-12-06 00:00:00 2018-12-06 00:00:00 Case Management Rosmery Guzman [facility] 1.2.840.114 350.1.13.10 4.2.7.2.686 [id number] [facility] 2018-12-06 00:00:00 2018-12-06 00:00:00 Case Management [facility] 1.2.840.114 350.1.13.10 4.2.7.2.686 [id number] [facility] 2018-11-30 00:00:00 2018-11-30 00:00:00 Telephone [facility] 1.2.840.114 350.1.13.10 4.2.7.2.686 [id number] [facility] 2018-11-25 00:00:00 2018-11-25 00:00:00 Telephone [facility] 1.2.840.114 350.1.13.10 4.2.7.2.686 [id number] 113 [id number] [facility] 2018-11-24 08:42:13 2018-11-24 11:55:49 Director Of Agronomy Visit [facility] 1.2.840.114 350.1.13.10 4.2.7.2.686 [id number] [facility] 2018-11-24 09:55:22 2018-11-24 10:53:43 Routine Visit Trimester, [facility] Res-1st [facility] 1.2.840.114 350.1.13.10 4.2.7.2.686 [id number] [facility] 2018-11-24 00:00:00 2018-11-24 00:00:00 Telephone [facility] 1.2.840.114 350.1.13.10 4.2.7.2.686 [id number] 113 [id number] [facility] 2018-11-16 13:30:00 2018-11-16 15:37:15 Outpatient BOONE AGUILA [facility] [id number] [facility] Results Test Description Test Time Test Comments Results Resul t Comments Source CT ABDOMEN PELVIS WO CONTRAST 2023-05-02 3 13:36:18 Examination: Computed tomography of the abdomen and pelvis without contrast Ordering Physician: MOR LEWIS Date: 05/14/2023 6:15 AM History: Abdominal trauma, [...] no suspicious lytic or blastic bony lesion. [id number] 12:38:00* Test Item Value Reference Range Interpretation Comme nts POCT PREG (test code = 1605) Negative On board controls acceptable with C Line (test code = 3574) Yes POCT PREG LOT # (test code = 3575) [id number] POCT PREG TEST DATE ( test code = 3576) 07/10/2024 Lab Interpretation (test cod e = 40283-4) [facility] [id number] 12:29:27* Test Item Value Reference Range Interpretation Comme nts WBC (test code = 6690-2) 15.80 See_Comment H [Automated [employer]a Piazza] The system which generated this result transmitted [...] 32.7 g/dL 31.6-35.1 RDW-SD (test code = 49907-2) 54.4 fL 39.0-49.9 H RDW-CV (test code = 788-0) 16.4 % 12.0-15.5 H PLT (test code = 777-3) 569 See_Comment H [Automated messa ge] The system which generated this result transmitted reference range: 166 - 358 10*3/?L. The reference range was not used to interpret this result as normal/abnormal. MPV (test code = 79759-9) 9.6 fL 9.5-12.9 NRBC/100 WBC (test code = 9377636801) 0.0 See_Comment [Automated [employer] ssage] The system which generated this result transmitted reference range: 0.0 - 10.0 /100 WBCs. The reference range was not used to interpret this result as normal/abnormal. NRBC x10^3 (test code = 1130321107) See_Comment [Automated messa ge] The system which generated this result transmitted reference range: 10*3/?L. The reference range was not used to interpret this result as normal/abnormal. SEG % (test code = 52456-1) 45 % 33-76 BAND % (test code = 98559-9) 7 % 0-1 H META % (test code = 94121-2) 2 % <=0 H MYELO % (test code = 26104-3) 3 % <=0 H LYMPH % (test code = 68628-2) 26 % 14-54 MONO % (test code = 87705-0) 11 % 0-4 H EOS % (test code = 62319-8) 5 % 0-3 H BASO % (test code = 01408-6) 1 % 0-1 ANC (test code = 753-4) 8.22 10*3/uL 1.88-7.09 H Lab Interpretation (test code = 01996-6) [facility]normal [facility] 2 [id number] 12:27:38Examination: Chest PA and lateral Ordering Physician: MOR LEWIS Date: 05/14/2023 6:00 AM History: recent ards Comparison: 02/19/2023 Findings/[facility] Whole [id number] 11:57:24* Test Item Value Reference Range Interpretation Comme nts LACTIC ACID (test code = 4174225060) 2.00 mmol/L 0.50-2.20 QUES Lab Interpretation (test cod e = 05996-2) Normal [facility] ASPER [id number] 09:13:00* Test Item Value Reference Range Interpretation Comme nts AG ASPER GALACTOMANNAN (test code = ASPGAG) 0.17 Index 0.00-0.49 Performed A t: CETWE [facility] [id number] [id number] Earle S MD Ph:[phone] COMMENTS: Bronchoaveolar lavage- XR CHEST 1 [id number] 07:30:00 [facility] : 1985 Sex: F FAX: Rishabh Manning MD [place]: St: ADM FAX: Kaushal Savage MD [phone] FAX: Darin Page [phone] Name: MARLENE MANCILLA [facility] : 1985 Age/S: 38/F [address] [place] [address] Unit #: [id number] Loc: [address] [place] [address] Phys: Rishabh Manning MD Acct: [id number] Dis Date: Status: ADM IN PHONE #: [phone] Exam Date: 05/13/2023719 FAX #: [phone] Reason: pneumonia EXAMS: CPT CODE: [id number] XR CHEST 1 V 47983 STUDY: Chest radiograph HISTORY: Pneumonia COMPARISON: 05/12/2023 TECHNIQUE: Frontal view of the chest. LOCATION: H19 FINDINGS: The cardiac silhouette is stable in size. There are persistent bibasilar opacities with improved aeration on the left. There is no large pl eural effusion or discernible pneumothorax. IMPRESSION: Persistent bibasilar atelectasis versus pneumonia, improving on the left. at 0730 Reported and signed by: Racheal Jaffe M.D. CC: Rishabh Manning MD; Kaushal Neri MD; Darin Dumont MD Technologist: RT Kristin(Rafaela) Trnmnrd Date/Time/By: 05/13/2023 (7330) : By: [email or web address] Orig Print D/T: S: 05/13/2023 (2204) PAGE 1 Signed ReportCBC W/AUTO DIFF 2023-05-12 10:45:00* Test Item Value Reference Range Interpretation [...] (test c ode = MDIFF) YES WBC [id number] 10:45:00* Test Item Value Reference Range Interpretation [...] = MYELO) 6.3 % 0.0-0.0 H HISTOPLASMA [id number] 10:22:00* Test Item Value Reference Range Interpretation [...] was developed and its performance characteristicsdetermined by [facility]. It has not been cleared or approvedby the Food and Drug Administration.Previously reported result: 1:2 Edited by: [facility] [place]12[place]23[place][id number] 1022: YEAST previously reported as: 1:2 [Automated message] The system which generated this result transmitted reference range: Neg:<1:2. The reference range was not used to interpret this result as normal/abnormal. COMPREHENSIVE METABOLIC [id number] 09:26:00* Test Item Value Reference Range Interpretation [...] code = ALKP) 124 IUnit/L 20-125 N [id number] 09:26:00* Test Item Value Reference Range Interpretation Comme nts PHOSPHOROUS (test code = PHOS) 4.8 MG/DL 2.5-4.9 N [id number] 09:26:00* Test Item Value Reference Range Interpretation Comme nts MAGNESIUM (test code = MAG) 1.96 mg/dL 1.6-2.6 N NOTE: NEW NORMAL RANGE CALCIUM [id number] 09:26:00* Test Item Value Reference Range Interpretation Comme nts CALCIUM IONIZED (test code = TRAVIS) 1.16 MMOL/L 1.09-1.30 N - XR CHEST 1 [id number] 08:16:00 [facility] 1985 Sex: F FAX: Rishabh Manning MD [place]: St: ADM FAX: Kaushal Savage MD [phone] FAX: Darin Page [phone] Name: WILLMARLENE MARCUS [facility] : 1985 Age/S: 38/F [address] [place] [place] [address] Blvd Unit #: [id number] Loc: [address] [place] [address] Phys: Rishabh Manning MD Acct: [id number] Dis Date: Status: ADM INPHONE #: [phone] Exam Date: 05/12/2023 0807 FAX #: [phone] Reason: pneumonia EXAMS: CPT CODE: [id number] XR CHEST 1 V 09528 STUDY: Chest radiograph HISTORY: Pneumonia COMPARISON: 05/11/2023 TECHNIQUE: Frontal view of the chest. LOCATION: H19 FINDINGS: The cardiac silhouette is stable in size. Bibasilar opacities are similar since the prior exam. There is no large pleural effusion or discernible pneumothorax. IMPRESSION: No significant interval change. at 0816 Reported and signed by: Racheal Jaffe M.D. CC: Rishabh Manning MD;Kaushal Neri MD; Darin Dumont MD Technologist: RT Kristin(Rafaela) Trnscrd Date/Time/By: 05/12/2023 (0816) : By: [email or web address] Orig Print D/T: S: 05/12/2023 (0819) PAGE 1 Signed Report- XR ABDOMEN 1V (KUB) 2023-05-11 08:25:00 [facility] : 1985 Sex: F FAX: Kadie Hardin MD [place]: St: [facility] FAX: Kaushal Savage MD [phone] FAX: Darin Page [phone] Name: MARLENE MANCILLA [facility] Greg Bonilla : 1985 Age/S: 38/F [address] [place] [address] Unit #: [id number] Loc: [place] [address] Phys: Kadie Hardin MD Acct: [id number] Dis Date: Status: ADM IN PHONE #: [phone] Exam Date: 05/11/2023753 FAX #: [phone] Reason: ABDOMINAL PAINAND DISCOMFORT EXAMS: CPT CODE: [id number] XR ABDOMEN 1V (KUB) 61609 EXAM: - XR ABDOMEN 1V (KUB) HISTORY: ABDOMINAL PAIN AND DISCOMFORT LOCATION CODE:T18 TECHNIQUE: Frontal supine view of the abdomen. COMPARISON: 05/05/2023. FINDINGS/ IMPRESSION: Previously shown enteric tube has been removed. Bowel gas pattern appears normal without obstruction or ileus. No abnormal calcifications. Clips overlie the right iliac bone. No acute osseous abnormalities. at 0825 Reported and signed by: Uyen Macario M.D. CC: Kadie Hardin MD; Kaushal Neri MD; Darin Dumont MD Technologist: RT Kristin(R) Trnscrd Date/Time/By: 05/11/2023 (08) : By: [email or web address] Orig Print D/T: S: 05/11/2023 (5269) PAGE 1 Signed ReportCBC W/AUTO [id number] 08:22:00* Test Item Value Reference Range Interpretation [...] (test c ode = MDIFF) YES WBC [id number] 08:22:00* Test Item Value Reference Range Interpretation [...] (test code = MICR) 1+ COMPREHENSIVE METABOLIC [id number] 08:03:00* Test Item Value Reference Range Interpretation [...] code = ALKP) 117 IUnit/L 20-125 N [id number] 08:03:00* Test Item Value Reference Range Interpretation Comme nts PHOSPHOROUS (test code = PHOS) 6.1 MG/DL 2.5-4.9 H [id number] 08:03:00* Test Item Value Reference Range Interpretation Comme nts MAGNESIUM (test code = MAG) 2.22 mg/dL 1.6-2.6 N NOTE: NEW NORMAL RANGE CALCIUM [id number] 08:03:00* Test Item Value Reference Range Interpretation Comme nts CALCIUM IONIZED (test code = TRAVIS) 1.13 MMOL/L 1.09-1.30 N - XR CHEST 1 [id number] 08:00:00 [facility] : 1985 Sex: F FAX: Rishabh Manning MD [place]: St: ADM FAX: Kaushal Savage MD [phone] FAX: Darin Page [phone] Name:MARLENE MANCILLA [facility] : 1985 Age/S: 38/F [address] [place] [address] Unit #: [id number] Loc: [address] [place] [address] Phys: Rishabh Manning MD Acct: [id number] Dis Date: Status: ADM IN PHONE #: [phone] Exam Date: 05/11/2023753 FAX #: [phone] Reason: pneumonia EXAMS: CPT CODE: [id number] XR CHEST 1 V 74981 STUDY: Chest radiograph HISTORY: Pneumonia COMPARISON: 05/09/2023 TECHNIQUE: Frontal view of the chest. LOCATION: H19 FINDINGS: The cardiac silhouette is stable in size. There is increasing right basilar although improved left basilar opacities. There is no large pleural effusion or discernible pneumothorax. IMPRESSION: Persistent bibasilar opacities, worsening onthe right although improved on the left, suggestive of pneumonia or atelectasis. at 0800 Reported and signed by: Racheal Jaffe M.D. CC: Rishabh Manning MD; Kaushal Neri MD; Darin Dumont MD Technologist: RT Kristin(R) Trnscrd Date/Time/By: 05/11/2023 (0800) : By: [email or web address] Orig Print D/T: S: 05/11/2023 (0803) PAGE 1 Signed ReportB [id number] 06:42:00* Test Item Value Reference Range Interpretation Comme nts HEMOGLOBIN (test code = HGB) 8.8 g/dL 11.0-15.0 L HEMATOCRIT (test code = HCT) 27.8 % 33.0-45.0 L (1-3)-JIMS-W-[id number] 14:11:00* Test Item Value Reference Range Interpretation Comme nts (1-3)-TVVR-T-HXNFBU (test code = BETADGLUCAN) Negative See_Comment [[employer] ge] The system which generated this result transmitted reference range: (). The reference range was not used to interpret this result as normal/abnormal. CBC W/AUTO [id number] 10:49:00* Test Item Value Reference Range Interpretation [...] (test c ode = MDIFF) YES WBC [id number] 10:49:00* Test Item Value Reference Range Interpretation [...] MYELO) 1.8 % 0.0-0.0 H COMPREHENSIVE METABOLIC [id number] 07:22:00* Test Item Value Reference Range Interpretation [...] code = ALKP) 118 IUnit/L 20-125 N [id number] 07:22:00* Test Item Value Reference Range Interpretation Comme nts PHOSPHOROUS (test code = PHOS) 6.5 MG/DL 2.5-4.9 H [id number] 07:22:00* Test Item Value Reference Range Interpretation Comme nts MAGNESIUM (test code = MAG) 2.32 mg/dL 1.6-2.6 N NOTE: NEW NORMAL RANGE CALCIUM [id number] 07:22:00* Test Item Value Reference Range Interpretation Comme nts CALCIUM IONIZED (test code = TRAVIS) 1.13 MMOL/L 1.09-1.30 N - XR CHEST 1 [id number] 07:59:00 [facility] : 1985 Sex: F FAX: Rony Costa MD [phone] [place]: St: ADM FAX: Racheal Rangel Jr [phone] FAX: Darin Page [phone] Name: WILLMARLENE MARCUS [facility] : 1985 Age/S: 38/F [address] [place] [address] Unit #: [id number] Loc: [address] [place] [address] Phys: Racheal Rangel Jr, MD Acct: [id number] Dis Date: Status: ADM IN PHONE #: [phone] Exam Date: 05/09/2023540 FAX #: [phone] Reason: INTUBATED/PNA EXAMS: CPT CODE: [id number] XR CHEST 1 V 94343 Location: [facility] EXAM: - XR CHEST 1 V DATE: [...] Rangel Jr, MD; Darin Dumont MD Technologist: Lea Buchanan RT(R) Trnscrd Date/Time/By: 05/09/2023 (0759) : By: [email or web address] Orig Print D/T: S: 05/09/2023 (0802) PAGE 1 Signed ReportCBC W/AUTO [id number] 07:49:00* Test Item Value Reference Range Interpretation [...] (test c ode = MDIFF) YES WBC [id number] 07:49:00* Test Item Value Reference Range Interpretation [...] (test code = PLTMORPH) NORMAL COMPREHENSIVE METABOLIC [id number] 07:35:00* Test Item Value Reference Range Interpretation [...] code = ALKP) 118 IUnit/L 20-125 N [id number] 07:35:00* Test Item Value Reference Range Interpretation Comme nts PHOSPHOROUS (test code = PHOS) 5.9 MG/DL 2.5-4.9 H [id number] 07:35:00* Test Item Value Reference Range Interpretation Comme nts MAGNESIUM (test code = MAG) 2.36 mg/dL 1.6-2.6 N NOTE: NEW NORMAL RANGE CALCIUM [id number] 07:35:00* Test Item Value Reference Range Interpretation Comme nts CALCIUM IONIZED (test code = TRAVIS) 1.11 MMOL/L 1.09-1.30 N CBC W/AUTO [id number] 11:28:00* Test Item Value Reference Range Interpretation [...] (test c ode = MDIFF) YES WBC [id number] 11:28:00* Test Item Value Reference Range Interpretation [...] (test code = MACR) 1+ COMPREHENSIVE METABOLIC [id number] 07:16:00* Test Item Value Reference Range Interpretation [...] code = ALKP) 119 IUnit/L 20-125 N [id number] 07:16:00* Test Item Value Reference Range Interpretation Comme nts PHOSPHOROUS (test code = PHOS) 5.9 MG/DL 2.5-4.9 H [id number] 07:16:00* Test Item Value Reference Range Interpretation Comme nts MAGNESIUM (test code = MAG) 2.32 mg/dL 1.6-2.6 N NOTE: NEW NORMAL RANGE CALCIUM [id number] 07:16:00* Test Item Value Reference Range Interpretation Comme nts CALCIUM IONIZED (test code = TRAVIS) 1.11 MMOL/L 1.09-1.30 N - XR CHEST 1 [id number] 06:20:00 [facility] : 1985 Sex: F FAX: Rony Costa MD [phone] [place]: St: [facility] FAX: Racheal Rangel Jr [phone] FAX: Darin Page [phone] Name: RIKAMARLENE [facility] : 1985 Age/S: 38/F [address] [place] [address] Unit#: [id number] Loc: [address] [place] [address] Phys: Racheal Rangel Jr, MD Acct: [id number] Dis Date: Status: ADM IN PHONE #: [phone] Exam Date: 05/08/2023 0503 FAX #: [phone] Reason: INTUBATED/PNA EXAMS: CPT CODE: [id number] XR CHEST 1 V 61060 CHEST 1 VIEW: INDICATION: INTUBATED/PNA COMPAR HALIMA: Comparison is made with prior study of [...] Jr, MD; Darin Dumont MD Technologist: RT Tenzin(R) Trnscrd Date/Time/By: 05/08/2023 (619) : By: [email or web address] Orig Print D/T: S: 05/08/2023 (0623)PAGE 1 Signed ReportHGB [id number] 18:30:00* Test Item Value Reference Range Interpretation Comme nts HEMOGLOBIN (test code = HGB) 8.4 g/dL 11.0-15.0 L HEMATOCRIT (test code = HCT) 25.8 % 33.0-45.0 L HGB [id number] 11:38:00* Test Item Value Reference Range Interpretation Comme nts HEMOGLOBIN (test code = HGB) 8.7 g/dL 11.0-15.0 L HEMATOCRIT (test code = HCT) 26.4 % 33.0-45.0 L - XR CHEST 1 [id number] 06:53:00 [facility] : 1985 Sex: F FAX: Kadie Hardin MD [place]: St: ADM FAX: Racheal Rangel Jr [phone] FAX: Darin Page [phone] Name: MARLENE MANCILLA [facility] : 1985 Age/S: 38/F [address] [place] [address] Unit #: [id number] Loc: [address] [address] Phys: Racheal Rangel Jr, MD Acct: [id number] Dis Date: Status: ADM IN PHONE #: [phone] Exam Date: 05/07/2023513 FAX #: [phone] Reason: INTUBATED/PNA EXAMS: CPT CODE: [id number] XR CHEST 1 V 92683 H 20 TIME OF STUDY: 05/07/2023 5:00 AM REASON FOR EXAM: INTUBATED/PNA COMPARISON: 05/06/2023. FINDINGS: AP view of the chest was obtained. Support devices: ET tube is in place with the tip [...] Rangel Jr, MD; Darin Dumont MD Technologist: Lea Buchanan RT(R) Trnscrd Date/Time/By: 05/07/2023 (0653) : By: [email or web address] Orig Print D/T: S: 05/07/2023 (0656)PAGE 1 Signed ReportPO ARTERIAL BLOOD GAS 2023-05-07 03:27:00* Test Item Value Reference Range Interpretation Comme nts POC ARTERIAL BLOOD GAS PH (t est code = POCPHA) 7.506 7.35-7.45 HH POC ARTERIAL BLOOD GAS PCO2 (test code = VFGPHS2E) 31.3 mmHg 35.0-45 L POC TCO2 ARTERIAL (test code = POCTCO2) 25.6 POC ARTERIAL BLOOD GAS PO2 ( test code = UJGMS1C) 61.9 mmHg 80-100.0 L POC HCO3 ARTERIAL (test code = XHEOSU2A) 24.7 MMOL/L 22.0-26.0 N POC BASE EXCESS (test code = POCBEA) 1.7 MMOL/L -4.0-4.0 N POC O2 SATURATION (test code = POCO2S) 93.4 % 90-100 N FIO2 (test code = FIO2A) 40 % PaO2/FiO2 (test code = OCD6TZA4) 154.75 mm/Hg ABG DELIVERY (test code = BETTY) Adult Vent ABG VENT MODE (test code = MODEA) CPAP/PS ABG PEEP (test code = PEEPA) 5 cmH2O ABG PRESSURE SUPPORT (test c ode = PSABG) 5 cmH2O ABG TEMPERATURE (test code = TEMPA) 99.2 F COMPREHENSIVE METABOLIC [id number] 02:52:00* Test Item Value Reference Range Interpretation [...] code = ALKP) 102 IUnit/L 20-125 N [id number] 02:52:00* Test Item Value Reference Range Interpretation Comme nts PHOSPHOROUS (test code = PHOS) 5.9 MG/DL 2.5-4.9 H [id number] 02:52:00* Test Item Value Reference Range Interpretation Comme nts MAGNESIUM (test code = MAG) 2.09 mg/dL 1.6-2.6 N NOTE: NEW NORMAL RANGE CALCIUM [id number] 02:52:00* Test Item Value Reference Range Interpretation Comme nts CALCIUM IONIZED (test code = TRAVIS) 1.14 MMOL/L 1.09-1.30 N CBC W/AUTO [id number] 02:39:00* Test Item Value Reference Range Interpretation [...] REVIEW ED, CONSISTENT WITH AUTO DIFF. PROTHROMBIN [id number] 22:07:00* Test Item Value Reference Range Interpretation [...] Infarction (to prevent recurrent infarct). THROMBOPLASTIN TIME [id number] 22:07:00* Test Item Value Reference Range Interpretation Comme [facility] THROMBOPLASTIN TIME PARTIAL (test code = PTT) 26.5 Seconds 25.0-39.5 N Therapeutic Rang e: 50.4 - 88.3 Seconds Effective 08/15/2018 [id number] 22:07:00* Test Item Value Reference Range Interpretation Comme [facility] FIBRINOGEN (test code = FIB) 587 MG/DL 160-450 H Excess administr ation of anticoagulants and/or FibrinDegradation Products may affect Fibrinogen value. HGB [id number] 21:52:00* Test Item Value Reference Range Interpretation Comme nts HEMOGLOBIN (test code = HGB) 6.8 g/dL 11.0-15.0 L HEMATOCRIT (test code = HCT) 21.7 % 33.0-45.0 L - DUP VEIN [id number] 15:49:00 [facility] : 1985 Sex: F Name: MARLENE MANCILLA [facility] Greg Bonilla : 1985 Age/S: 38 / F [address] [place] [address] Blvd Unit #: [id number] Loc: [place] [address] Phys: Rachel Rodriguez NP Acct: [id number] Dis Date: Status: ADM IN PHONE #: [phone] Exam Date: 05/06/2023 1340 FAX #: [phone] Reason: swelling EXAMS: CPT CODE: [id number] DUP VEIN GURMEET 432[address] CLINICAL HISTORY:swelling PROCEDURE: 1. Venous Doppler of lower extremities. TECHNIQUE: Real-time li scale imaging, with compression, and Doppler venous ultrasoundexamination of the bilateral lower extremities was performed. [...] Chuyita Arellano RDMS([place])(BR) Trnscb Date/Time: 05/06/2023 (1549) [email or web address] Orig Print D/T: S: 05/06/2023 (5472) Probe: PAGE 1 Signed Report- NM LUNG PERF [id number] 12:08:00 [facility] : 1985 Sex: F FAX: Justin David MD [place]: St: ADM FAX: Darin Page [phone] Name: MARLENE MANCILLA [facility] : 1985 Age/S: 38/F [address] [place] [address] Unit #: [id number] Loc: G.[address] [place] [address] Phys: Justin David MD Acct: [id number] Dis Date: Status: ADM IN PHONE #: [phone] Exam Date: 05/06/2023 1204 FAX #: [phone] Reason: check for PE. Hypoxic resp failure EXAMS: CPT CODE: [id number] NM LUNG PERF PARTICULATE 42162 Nuclear medicine lung perfusion scan: INDICATION: check [...] 1208 Reported and signed by: Domingo Fenton M.D.CC: Justin David MD; Darin Dumont MD Technologist: ROSALIE Sidhu (N)(CT) Trnscrd Date/Time/By: 05/06/2023 (8793) : By: [email or web address] Orig Print D/T: S: 05/06/2023 (2602) PAGE 1 Signed ReportHGB HCT 2023-05-06 08:06:00* Test Item Value Reference Range Interpretation Comme nts HEMOGLOBIN (test code = HGB) 8.0 g/dL 11.0-15.0 L HEMATOCRIT (test code = HCT) 25.5 % 33.0-45.0 L - XR CHEST 1 [id number] 08:04:00 [facility] : 1985 Sex: F FAX: Rishabh Manning MD [place]: St: [facility] FAX: Darin Page [phone] Name: MARLENE MANCILLA [facility] : 1985 Age/S: 38/F [address] [place] [address] Unit #: [id number] Loc: [address] [place] [address] Phys: Rishabh Manning MD Acct: [id number] Dis Date: Status: ADM IN PHONE #: [phone] Exam Date: 05/06/2023719 FAX #: [phone] Reason: pneumonia EXAMS: CPT CODE: [id number] XR CHEST 1 V 95559 EXAM: - XR CHEST 1 V COMPARISON: Prior day. LOCATION: H47 HISTORY: pneumonia FINDINGS: Single view of the chest. Nasogastric tube is in appropriate position. Endotracheal tube tip is at the andrews, recommend retraction by 2 cm. No pneumothorax. Unchanged retrocardiac opacification. The mediastinal contours are unchanged. IMPRESSION: Recommend retraction of endotracheal tube tip by 2 cm as it is at the andrews. Unchanged retrocardiac opacities. Electronically Signed by Adrian Garcia on05/06/2023 at 0804 Reported and signed by: James Garcia M.D. CC: Rishabh Manning MD; Darin Dumont MD Technologist: Karrie Tyson RT(R) Trnscrd Date/Time/By: 05/06/2023 (803) : By: [email or web address] Orig Print D/T: S: 05/06/2023 (0807) PAGE 1 Signed ReportCBC W/AUTO [id number] 05:44:00* Test Item Value Reference Range Interpretation [...] ED, CONSISTENT WITH AUTO DIFF. COMPREHENSIVE METABOLIC [id number] 05:10:00* Test Item Value Reference Range Interpretation [...] code = ALKP) 98 IUnit/L 20-125 N [id number] 05:10:00* Test Item Value Reference Range Interpretation Comme nts PHOSPHOROUS (test code = PHOS) 6.3 MG/DL 2.5-4.9 H [id number] 05:10:00* Test Item Value Reference Range Interpretation Comme nts MAGNESIUM (test code = MAG) 2.05 mg/dL 1.6-2.6 N NOTE: NEW NORMAL RANGE CALCIUM [id number] 05:10:00* Test Item Value Reference Range Interpretation Comme nts CALCIUM IONIZED (test code = TRAVIS) 0.96 MMOL/L 1.09-1.30 L POC ARTERIAL BLOOD [id number] 03:58:00* Test Item Value Reference Range Interpretation Comme nts POC ARTERIAL BLOOD GAS PH (t est code = POCPHA) 7.439 7.35-7.45 N POC ARTERIAL BLOOD GAS PCO2 (test code = PRAHLS5V) 35.9 mmHg 35.0-45 N POC TCO2 ARTERIAL (test code = POCTCO2) 25.4 POC ARTERIAL BLOOD GAS PO2 ( test code = LBAYN7U) 182.5 mmHg 80-100.0 H POC HCO3 ARTERIAL (test code = JOXMZO1Y) 24.3 MMOL/L 22.0-26.0 N POC BASE EXCESS (test code = POCBEA) 0.1 MMOL/L -4.0-4.0 N POC O2 SATURATION (test code = POCO2S) 99.7 % 90-100 N FIO2 (test code = FIO2A) 80.0 % PaO2/FiO2 (test code = HSE2LTJ2) 228.10 mm/Hg ABG DELIVERY (test code = [...] Positive - XR ABDOMEN 1V (KUB)2023-05-05 20:53:00 [facility] : 1985 Sex: F FAX: Justin David MD [place]: St: [facility] FAX: Darin Page [phone] Name: MARLENE MANCILLA [facility] : 1985 Age/S: 38/F [address] [place] [address] Unit #: [id number] Loc: G.[address] [place] [address] Phys: Justin David MD Acct: [id number] Dis Date: Status: ADM IN PHONE #: [phone] Exam Date: 05/05/20231901 FAX #: [phone] Reason: NGT Placement EXAMS: CPT CODE: [id number] XR ABDOMEN 1V (KUB) 06874 EXAM: Abdominal x-ray, 1 view Dictation location: H10 INDICATION: NG tube placement COMPARISON: Abdominal x-ray on 05/02/2023 DISCUSSION: A frontal view of the abdomen is submitted. The upper ent jose alberto tube tip overlies the appropriate position over the gastric antrum. There is partial bibasilarconsolidation, left greater than right. The bowel gas [...] David MD; Darin Dumont MD Technologist: RT Allie(Rafaela) [facility] Date/Time/By: 05/05/2023 (2052) : By: [email or web address] Orig Print D/T: S: 05/05/2023 (2055) PAGE 1 Signed ReportPO ARTERIAL BLOOD [id number] 20:27:00* Test Item Value Reference Range Interpretation Comme nts POC ARTERIAL BLOOD GAS PH (t est code = POCPHA) 7.410 7.35-7.45 N POC ARTERIAL BLOOD GAS PCO2 (test code = DPVEHR1U) 37.5 mmHg 35.0-45 N POC TCO2 ARTERIAL (test code = POCTCO2) 24.9 POC ARTERIAL BLOOD GAS PO2 ( test code = THNXW5L) 138.2 mmHg 80-100.0 H POC HCO3 ARTERIAL (test code = OUVWJD4E) 23.8 MMOL/L 22.0-26.0 N POC BASE EXCESS (test code = POCBEA) -0.9 MMOL/L -4.0-4.0 N POC O2 SATURATION (test code = POCO2S) 99.2 % 90-100 N FIO2 (test code = FIO2A) 90.0 % PaO2/FiO2 (test code = DVC3DSW2) 153.50 mm/Hg ABG DELIVERY (test code = [...] = ALLENS) Positive - XR CHEST 1 [id number] 19:09:00 [facility] : 1985 Sex: F FAX: Justin David MD [place]: St: ADM FAX: Darin Page [phone] Name: MARLENE MANCILLA [facility] : 1985 Age/S: 38/F [address] [place] [address] Unit #: [id number] Loc: [address] [address] Phys: Justin David MD Acct: [id number] Dis Date: Status: ADM IN PHONE #: [phone] Exam Date: 05/05/20231901 FAX #: [phone] Reason: INTUBATION EXAMS: CPT CODE: [id number] XR CHEST 1 V 54994 LOCATION: Q15 HISTORY: 38-year-old female, status post intubation. COMMENT: A frontal chest radiograph was obtained at the bedside at 6:29 p.m., and compared to study obtained earlier today at 7:40 a.m. FI NDINGS: Since prior study the patient has been intubated. ET tube is above the andrews at the level aortic arch, and a nasogastric tube is seen projecting outside the imvgm-wm-efxn in the left upper abdominal quadrant. Again seen is thickening in the right minor fissure with consolidation left lungbase, unchanged. Mild cardiac enlargement is unchanged. Skeleton and soft tissues are unchanged. IMPRESSION: This patient status post adequate endotracheal intubation and nasogastric intubation. Please see above for details. at 1909 Reported and signed by: Racheal Arroyo M.D. CC: Justin David MD; Darin Dumont MD Technologist: RT Allie(R) Trnscrd Date/Time/By: 05/05/2023 (1908) : By: [email or web address] Orig Print D/T: S: 05/05/2023 (232) PAGE 1 Signed ReportPO ARTERIAL BLOOD GAS 2023-05-05 17:45:00* Test Item Value Reference Range Interpretation Comme nts POC ARTERIAL BLOOD GAS PH (t est code = POCPHA) 7.455 7.35-7.45 H POC ARTERIAL BLOOD GAS PCO2 (test code = BIQYTH1X) 35.0 mmHg 35.0-45 N POC TCO2 ARTERIAL (test code = POCTCO2) 25.6 POC ARTERIAL BLOOD GAS PO2 ( test code = EWHJD6I) 67.1 mmHg 80-100.0 L POC HCO3 ARTERIAL (test code = UZUNGT9N) 24.6 MMOL/L 22.0-26.0 N POC BASE EXCESS (test code = POCBEA) 0.7 MMOL/L -4.0-4.0 N POC O2 SATURATION (test code = POCO2S) 94.1 % 90-100 N FIO2 (test code = FIO2A) 100 % PaO2/FiO2 (test code = RGX7DIL9) 67.10 mm/Hg ABG DELIVERY (test code = [...] Test Item Value Reference Range Interpretation Comme [facility] LACTIC DEHYDROGENASE(LDH) (t est code = LDH) 457 IUnits/L 84-246 H - CT CHEST W/O [id number] 12:03:00 [facility] 1985 Sex: F Name: MARLENE MANCILLA : 1985 Age/S: 38 / F [address] [place] [address] Unit #: [id number] Loc: [place] [address] Phys: Osmany Lopez MD Acct: [id number] Dis Date: Status: ADM INPHONE #: [phone] Exam Date: 05/05/20231105 FAX #: [phone] Reason: acute hypoxemic respiratory failure, SOB EXAMS: CPT CODE: [id number] CT CHEST W/O CONTRAST 95774 EXAM: - CT CHEST W/O CONTRAST LOCATION: H47 HISTORY: acute hypoxemic respiratory failure, SOB COMPARISON: None available at the time of interpretation. TECHNIQUE: Axial tomograms through the chest were obtained without intravenous contrast. Coronal and sagittal reformatted images are provided. Unless otherwise specified, in cidental findings do not require dedicated imaging follow-up. [...] MEDIASTINUM: There is no pericardial effusion. The aortatapers normally. The trachea is unremarkable. The esophagus is grossly unremarkable. LYMPHADENOPATHY: There is no mediastinal, hilar, or axillary adenopathy. VISUALIZED ABDOMEN: Unremarkable. BONES: No acute osseous findings. SOFT TISSUES: Unremarkable. IMPRESSION: Atelectasis and pneumonia of the left lower lobe. Moderate pneumonia of the right lower lobe. PAGE 1 Signed Report (CONTINUED) Name: MARLENE MANCILLA : 1985 Age/S: 38 / F [address] [place] [address] Unit #: [id number] Loc: [place] [address] Phys: Osmany Lopze MD Acct: [id number] Dis Date: Status: ADM IN PHONE #: [phone] Exam Date: 05/05/20231105 FAX #: [phone] Reason: acute hypoxemic respiratory failure, SOB EXAMS: CPT CODE: [id number] CT CHEST W/O CONTRAST 93625 (Continued) at 1203 Reported and signed by: James Garcia M.D. CC: Osmany Lopez MD; Darin Dumont MD Technologist:Kirill Barragan, RT(R)(CT) CTDI: DLP: Trnscb Date/Time: 05/05/2023 (1203) [email or web address] Orig Print D/T: S: 05/05/2023 (1206) PAGE 2 Signed ReportCOMPREHENSIVE METABOLIC [id number] 09:15:00* Test Item Value Reference Range Interpretation [...] code = ALKP) 130 IUnit/L 20-125 H [id number] 09:15:00* Test Item Value Reference Range Interpretation Comme nts PHOSPHOROUS (test code = PHOS) 5.5 MG/DL 2.5-4.9 H [id number] 09:15:00* Test Item Value Reference Range Interpretation Comme nts MAGNESIUM (test code = MAG) 1.99 mg/dL 1.6-2.6 N NOTE: NEW NORMAL RANGE CALCIUM [id number] 09:15:00* Test Item Value Reference Range Interpretation Comme nts CALCIUM IONIZED (test code = TRAVIS) 1.13 MMOL/L 1.09-1.30 N POC ARTERIAL BLOOD [id number] 08:57:00* Test Item Value Reference Range Interpretation Comme nts POC ARTERIAL BLOOD GAS PH (t est code = POCPHA) 7.434 7.35-7.45 N POC ARTERIAL BLOOD GAS PCO2 (test code = TNFQLJ4I) 34.1 mmHg 35.0-45 L POC TCO2 ARTERIAL (test code = POCTCO2) 23.9 POC ARTERIAL BLOOD GAS PO2 ( test code = MRPNL3A) 98.8 mmHg 80-100.0 N POC HCO3 ARTERIAL (test code = UKYQAJ8F) 22.9 MMOL/L 22.0-26.0 N POC BASE EXCESS (test code = POCBEA) -1.4 MMOL/L -4.0-4.0 N POC O2 SATURATION (test code = POCO2S) 97.9 % 90-100 N CBC W/AUTO [id number] 08:41:00* Test Item Value Reference Range Interpretation [...] 3/uL 0.0-0.1 N - XR CHEST 1 [id number] 08:19:00 [facility] 1985 Sex: F FAX: Darin Page [phone] [place]: St: ADM Name: MARLENE MANCILLA [facility] : 1985 Age/S: 38/F [address] [place] [address] Unit #: [id number] Loc: G.09 [place] [address] Phys: Darin Dumont MD Acct: [id number] Dis Date: Status: ADM IN PHONE #: [phone] Exam Date: 05/05/2023737 FAX #: [phone] Reason: RESPIRATORY DISTRESS EXAMS: CPT CODE: [id number] XR CHEST 1 V 38784 Chest INDICATION: Respiratory distress. COMPARISON: Chest x-ray from yesterday. FINDINGS: Single frontal radiograph chest. There is unchanged bibasilar airspace disease. Cardiac silhouette is enlarged and unchanged. No acute osseous abnormalities. IMPRESSION: 1. Unchanged bibasilar airspace disease with enlarged cardiac silhouette. at 0819 Reported and signed by: Nestor Wilde M.D. CC: Darin Dumont MD Technologist: Emi Gottlieb RT(R) Trnscrd Date/Time/By: 05/05/2023 (818) : By: [email or web address] Orig Print D/T: S: 05/05/2023 (821) PAGE 1Signed Report- XR CHEST 1 [id number] 07:50:00 [facility] : 1985 Sex: F FAX: Rishabh Manning MD [place]: St: ADM FAX: Darin Page [phone] Name: BELENJoseMARLENE [facility] :1985 Age/S: 38/F [address] [place] [address] Unit #: [id number] Loc: G.M309 [place] [address] Phys: Rishabh Manning MD Acct: [id number] Dis Date: Status: ADM IN PHONE #: [phone] Exam Date: 05/05/2023 0505 FAX #: [phone] Reason: pneumonia EXAMS: CPT CODE: [id number] XR CHEST 1 V 79214 EXAM: - XR CHEST 1 V COMPARISON: Prior day. LOCATION: H47 HISTORY: pneumonia FINDINGS: Single view of the chest. No indwelling lines/tubes. No pneumothorax. Unchanged right basilar airspace opacities, retrocardiac opacification, small left effusion. The mediastinal contours are unchanged. IMPRESSION:Unchanged exam. at 0750 Reported and signed by: James Garcia M.D. CC: Rishabh Manning MD; Darin Dumont MD Technologist: RT Rod(R) Trnscrd Date/Time/By: 05/05/2023 (0750) : By: Laith.[email or web address] Orig Print D/T: S: 05/05/2023 (0753) PAGE 1 Signed ReportCMV DNA QUANT 2023-05-04 20:07:00* Test Item Value Reference Range Interpretation Comme nts CMV DNA PCR (test code = CMVDNA) 2530 IU/mL Negative The quantitative range of this assay is 200 to 1 millionIU/mL. CMV DNA LOG10 (test code = CMVDNAL) 3.403 See_Comment INFCE Result Uni ts: log10 IU/mLPerformed At: [facility] Tttcruh[address] [id number] Gadiel Garcia MD Ph:[phone] [Automated message] The system which generated this result transmitted reference range: (). The reference range was not used to interpret this result as normal/abnormal. COMMENTS: serumCBC W/AUTO [id number] 09:21:00* Test Item Value Reference Range Interpretation [...] (test c ode = MDIFF) YES WBC [id number] 09:21:00* Test Item Value Reference Range Interpretation [...] = MICR) 1+ - XR CHEST 1 [id number] 07:57:00 [facility] : 1985 Sex: F FAX: Rishabh Manning MD [place]: St: [facility] FAX: Darin Page [phone] Name: MARLENE MANCILLA [facility] :1985 Age/S: 38/F [address] [place] [address] Blvd Unit #: [id number] Loc: G.M309 [place] [address] Phys: Rishabh Manning MD Acct: [id number] Dis Date: Status: ADM IN PHONE #: [phone] Exam Date: 05/04/2023624 FAX #: [phone] Reason: pneumonia EXAMS: CPT CODE: [id number] XR CHEST 1 V 87339 EXAM: - XR CHEST 1 V COMPARISON: [...] Rod(R) Trnscrd Date/Time/By: 05/04/2023 (0757) : By: [email or web address] Orig Print D/T: S: 05/04/2023 (08) PAGE 1 Signed ReportCOMPREHENSIVE METABOLIC [id number] 06:18:00* Test Item Value Reference Range Interpretation Comme nts SODIUM (test code = NA) 140 mEq/L 134-147 N POTASSIUM (test code = K) 2.7 mEq/L 3.4-5.0 LL Critical result called to Adolfo CESAR [facility] at 0618 05/04/23Nurse read back resut and [...] code = ALKP) 137 IUnit/L 20-125 H [id number] 06:18:00* Test Item Value Reference Range Interpretation Comme nts PHOSPHOROUS (test code = PHOS) 6.3 MG/DL 2.5-4.9 H [id number] 06:18:00* Test Item Value Reference Range Interpretation Comme nts MAGNESIUM (test code = MAG) 2.16 mg/dL 1.6-2.6 N NOTE: NEW NORMAL RANGE CALCIUM [id number] 06:18:00* Test Item Value Reference Range Interpretation Comme nts CALCIUM IONIZED (test code = TRAVIS) 1.15 MMOL/L 1.09-1.30 N CBC W/AUTO [id number] 13:34:00* Test Item Value Reference Range Interpretation [...] (test c ode = MDIFF) YES WBC [id number] 13:34:00* Test Item Value Reference Range Interpretation [...] = POIK) SLIGHT - XR CHEST 1 [id number] 07:33:00 [facility] : 1985 Sex: F FAX: Rishabh Manning MD [place]: St: [facility] FAX: Darin Page [phone] Name: MARLENE MANCILLA [facility] :1985 Age/S: 38/F [address] [place] [address] Unit #: [id number] Loc: GMeeraM309 [place] [address] Phys: Rishabh Manning MD Acct: [id number] Dis Date: Status: ADM IN PHONE #: [phone] Exam Date: 05/03/2023 0640 FAX #: [phone] Reason: pneumonia EXAMS: CPT CODE: [id number] XR CHEST 1 V 19194 EXAM: - XR CHEST 1 V Location code:C3 HISTORY: pneumonia COMPARISON: 05/02/2023 IMPRESSION: Single AP view of the chest is provided. Support lines and tubes are unchanged. Cardiomegaly with vascular congestion is present. Patchy basilar opacities persist. There is no pneumothorax. No additional interval change. at 0770 Reported and signed by: Ronald Fry M.D. CC: Rishabh Manning MD; Darin Dumont MD Technologist:Karrie Tyson RT(R) Trnscrd Date/Time/By: 05/03/2023 (0733) : By: [email or web address] Orig Print D/T: S: 05/03/2023 (0736) PAGE 1 Signed ReportCOMPREHENSIVE METABOLIC [id number] 06:08:00* Test Item Value Reference Range Interpretation [...] code = ALKP) 137 IUnit/L 20-125 H [id number] 06:08:00* Test Item Value Reference Range Interpretation Comme nts PHOSPHOROUS (test code = PHOS) 5.6 MG/DL 2.5-4.9 H [id number] 06:08:00* Test Item Value Reference Range Interpretation Comme nts MAGNESIUM (test code = MAG) 2.19 mg/dL 1.6-2.6 N NOTE: NEW NORMAL RANGE CALCIUM [id number] 06:08:00* Test Item Value Reference Range Interpretation Comme nts CALCIUM IONIZED (test code = TRAVIS) 1.17 MMOL/L 1.09-1.30 N - US ABDOMEN [id number] 21:35:00 [facility] : 1985 Sex: F Name: MARLENE MANCILLA [facility] Greg Bonilla : 1985 Age/S: 38 / F [address] [place] [address] Unit #: [id number] Loc: [place] [address] Phys: Rachel Rodriguez TRAFFIC RATE COMPUTER Acct: [id number] Dis Date: Status: ADM IN PHONE #: [phone] Exam Date: 05/02/20232118 FAX #: [phone] Reason: prolonged fever EXAMS: CPT CODE: [id number] US ABDOMEN LTD 65307 LOCATION: 8 HISTORY: Female, 38 years of age with prolonged fever, history of transplanted kidney EXAM: ULTRASOUND OF THE RIGHT UPPER QUADRANT COMPARISON:CT abdomen and pelvis without contrast 8 hours [...] patent with appropriate hepatopedal flow. RIGHT KIDNEY: Not visualized, probably secondary to severe atrophy. OTHER: There is no ascites. IMPRESSION: No acute findings in the right upper quadrant. at 2134 Reported and signed by: Meena Meza M.D. CC: Darin Dumont MD; Rachel Rodriguez NP Technologist: Mima Mark RDMS(AB)(OB) Trnscb Date/Time: 05/02/2023 (2134) [email or web address] Orig Print D/T: S: 05/02/2023 (2137) Probe: PAGE 1 Signed Report- CT CHEST W/O [id number] 12:26:00 [facility] : 1985 Sex: F Name: MARLENE MANCILLA [facility] : 1985 Age/S: 38 / F [address] [place] [address] Unit #: [id number] Loc: [place] [address] Phys: Rachel Rodriguez TRAFFIC RATE COMPUTER Acct: [id number] Dis Date: Status: ADM IN PHONE #: [phone] Exam Date: 05/02/20231206 FAX #: [phone] Reason: abdominal distention,persistent fever EXAMS: CPT CODE: [id number] CT CHEST W/O CONTRAST 30884 EXAMINATION: - CT ABD PELVIS W/O CONT, - CT CHEST W/O CONTRAST COMPARISON: Chest CT performed April 24, [address] scan of the abdomen and pelvis performed April 20, 2023 HISTORY: Abdominal distention, persistent fever LOCATION CODE: C3 TECHNIQUE: CT of the Chest, Abdomen and Pelvis without intravenous contrast. Oral contrast was not administered Axial non-contrast images of [...] this noncontrast CT the liver, gallbladder and biliarytree, spleen, pancreas and adrenal glands are normal. Both kidneys are markedly atrophic in appearance. Tiny cysts seen in the kidneys on the prior study are not well visualized on today's noncontrast images. Left iliac fossa renal transplant is again identified and appears normal. There is no freeair, free fluid or lymphadenopathy. Vessels are PAGE 1 Signed Report (CONTINUED) Name: MARLENE MANCILLA [facility] : 1985 Age/S: 38 / F [address] [place], [place] [address] Unit #: [id number] Loc: [place] [address] Phys: Rachel Rodriguez TRAFFIC RATE COMPUTER Acct: [id number] Dis Date: Status: ADM IN PHONE #: [phone] Exam Date: 05/02/2023 1207 FAX #: [phone] Reason: abdominal distention, persistent feverEXAMS: CPT CODE: [id number] CT CHEST W/O CONTRAST 55813 (Continued) normal. Moderate amount of liquid fecal material is seen throughout the colon which may be related to underlying diarrheal process.There is no evidence of bowel obstruction. Mild [...] CC: Darin Dumont MD; Rachel Rodriguez NP Technologist:RT Jefe(R)(CT) CTDI: DLP: Trnscb Date/Time: 05/02/2023 (1226) [email or web address] Orig Print D/T: S: 05/02/2023 (9568) PAGE 2 Signed Report- CT ABD PELVIS W/O [id number] 12:26:00 [facility] : 1985 Sex: F Name: MARLENE MANCILLA [facility] : 1985 Age/S: 38 / F [address] [place] [address] Unit #: [id number] Loc: [place] [address] Phys: Rachel Rodriguez NP Acct: [id number] Dis Date: Status: ADM INPHONE #: [phone] Exam Date: 05/02/2023 1207 FAX #: [phone] Reason: abdominal distention EXAMS: CPT CODE: [id number] CT ABD PELVIS W/O CONT 88057 EXAMINATION: - CT ABD PELVIS W/O CONT, [...] 1 Signed Report (CONTINUED) Name: MARLENE MANCILLA [facility] : 1985 Age/S: 38 / F [address] [place] [address] Unit #: [id number] Loc: [place] [address] Phys: Rachel Rodriguez TRAFFIC RATE COMPUTER Acct: [id number] Dis Date: Status: ADM IN PHONE #: [phone] Exam Date: 05/02/2023 1207 FAX #: [phone] Reason: abdominal distention EXAMS: CPT CODE: [id number] CT ABD PELVIS W/O CONT 38376 (Continued) normal. Moderate amount of liquid fecal [...] Ortega, RT(R)(CT) CTDI: DLP: Trnscb Date/Time: 05/02/2023 (8876) [email or web address] Orig Print D/T: S: 05/02/2023 (8454) PAGE 2 Signed Report- XR ABDOMEN 1V (KUB)2023-05-02 11:42:00[facility] : 1985 Sex: F FAX: Darin Page [phone] [place]: St: [facility] FAX: Rachel Rodriguez NP Name: [facility] 1985 Age/S: 38/F [address] [place] [address] Unit #: [id number] Loc: [place] [address] Phys: Rachel Rodriguez NP Acct: [id number] Dis Date: Status: ADM IN PHONE #: [phone] Exam Da te: 05/02/2023 1130 FAX #: [phone] Reason: NGT PLACEENT EXAMS: CPT CODE: [id number] XR ABDOMEN 1V (KUB) 60756 EXAM: - XR ABDOMEN 1V (KUB) HISTORY: [...] satisfactory position within the stomach. at 1142 Reportedand signed by: Alexander Sexton D.O. CC: Darin Dumont MD; Rachel Rodriguez NP Technologist: Marlene Ordaz RT(R) Trnscrd Date/Time/By: 05/02/2023 (1142) : By: [email or web address] [facility] Print D/T: S: 05/02/2023 (1143) PAGE 1 Signed ReportCBC W/AUTO [id number] 10:20:00* Test Item Value Reference Range Interpretation [...] REQUIRED (test code = MDIFF) YES WBC [id number] 10:20:00* Test Item Value Reference Range Interpretation [...] % 0.0-0.0 H - XR CHEST 1 [id number] 07:28:00 [facility] : 1985 Sex: F FAX: Rishabh Manning MD [place]: St: [facility] FAX: Darin Page [phone] Name: BELENMARLENE Garcia [facility] :1985 Age/S: 38/F [address] [place] [address] Unit #: [id number] Loc: Jessi09 [place] [address] Phys: Rishabh Manning MD Acct: [id number] Dis Date: Status: ADM IN PHONE #: [phone] Exam Date: 05/02/2023512 FAX #: [phone] Reason: pneumonia EXAMS: CPT CODE: [id number] XR CHEST 1 V 29879 H20 TIME OF STUDY: 05/02/2023 5:00 AM REASON FOR EXAM: pneumonia COMPARISON: 1 day prior. FINDINGS: APview of the chest was obtained. Support devices: Stable Lungs: Diffuse bilateral airspace opacitiesare unchanged. Pleura: No large pleural effusion or pneumothorax. Heart and Mediastinum: Normal cardiomediastinal silhouette and great vessels. Bones: Unchanged regional skeletal structures. IMPRESSION: 1. Unchanged chest radiograph. at 0728 Reported and signed by: Delta Otero M.D. CC: Rishabh Manning MD; Darin Dumont MD Technologist: Cristina Queen RT(R) Trnscrd Date/Time/By: 05/02/2023 (0728) : By: [email or web address] Orig Print D/T: S: 05/02/2023 (0750) PAGE 1 Signed Report COMPREHENSIVE METABOLIC [id number] 06:54:00* Test Item Value Reference Range Interpretation [...] = ALKP) 146 IUnit/L 20-125 H CALCIUM [id number] 06:54:00* Test Item Value Reference Range Interpretation Comme nts CALCIUM IONIZED (test code = TRAVIS) 1.15 MMOL/L 1.09-1.30 N POC ARTERIAL BLOOD [id number] 03:57:00* Test Item Value Reference Range Interpretation Comme nts POC ARTERIAL BLOOD GAS PH (t est code = POCPHA) 7.450 7.35-7.45 N POC ARTERIAL BLOOD GAS PCO2 (test code = GSETOB4H) 32.8 mmHg 35.0-45 L POC TCO2 ARTERIAL (test code = POCTCO2) 23.8 POC ARTERIAL BLOOD GAS PO2 ( test code = IDAYZ6G) 89.3 mmHg 80-100.0 N POC HCO3 ARTERIAL (test code = WXFARL6G) 22.8 MMOL/L 22.0-26.0 N POC BASE EXCESS (test code = POCBEA) -1.2 MMOL/L -4.0-4.0 N POC O2 SATURATION (test code = POCO2S) 97.4 % 90-100 N FIO2 (test code = FIO2A) 40 % PaO2/FiO2 (test code = UOS2KTF4) 223.25 mm/Hg ABG DELIVERY (test code = BETTY) Adult Vent ABG VENT MODE (test code = MODEA) CPAP/PS ABG PEEP (test code = PEEPA) 5 cmH2O ABG PRESSURE SUPPORT (test c ode = PSABG) 5 cmH2O ABG TEMPERATURE (test code = TEMPA) 98.6 F ABG SITE (test code = SITEA) Art Line DINA'S TEST (test code = ALLENS) N/A BASIC METABOLIC [id number] 03:57:00* Test Item Value Reference Range Interpretation [...] = POCGLU) 135 MG/DL 70-110 H HEMOGLOBIN [id number] 03:57:00* Test Item Value Reference Range Interpretation Comme nts HEMOGLOBIN ABG (test code = HGB/ABG) 8.9 G/DL 11.0-15.0 L [id number] 03:57:00* Test Item Value Reference Range Interpretation Comme nts HEMATOCRIT (test code = HCT/ABG) 26 % 33.0-45.0 L POC LACTIC [id number] 03:57:00* Test Item Value Reference Range Interpretation Comme nts POC LACTIC ACID (test code = POCLAC) 0.7 mmol/l 0.9-1.7 L [id number] 11:59:00* Test Item Value Reference Range Interpretation Comme nts AMMONIA (test code = AMM) < 10 umol/L 11-35 L LACTIC [id number] 11:55:00* Test Item Value Reference Range Interpretation Comme nts LACTIC ACID (test code = LACT) 0.8 mmol/L 0.4-1.9 N CBC W/AUTO [id number] 10:28:00* Test Item Value Reference Range Interpretation [...] REQUIRED (test code = MDIFF) YES WBC [id number] 10:28:00* Test Item Value Reference Range Interpretation [...] META) 1.8 % 0.0-0.0 H BASIC METABOLIC [id number] 09:26:00* Test Item Value Reference Range Interpretation [...] code = CA) 8.8 mg/dL 8.0-10.5 N [id number] 09:26:00* Test Item Value Reference Range Interpretation Comme nts PHOSPHOROUS (test code = PHOS) 4.8 MG/DL 2.5-4.9 N [id number] 09:26:00* Test Item Value Reference Range Interpretation Comme nts MAGNESIUM (test code = MAG) 2.22 mg/dL 1.6-2.6 N NOTE: NEW NORMAL RANGE - XR CHEST 1 [id number] 06:20:00 [facility] : 1985 Sex: F FAX: Rishabh Manning MD [place]: St: [facility] FAX: Darin Page [phone] Name: MARLENE MANCILLA [facility] :1985 Age/S: 38/F [address] [place] [address] Unit #: [id number] Loc: G.M309 [place] [address] Phys: Rishabh Manning MD Acct: [id number] Dis Date: Status: ADM IN PHONE #: [phone] Exam Date: 05/01/2023 0501 FAX #: [phone] Reason: pneumonia EXAMS: CPT CODE: [id number] XR CHEST 1 V 93283 CLINICAL HISTORY: pneumonia. LOCATION: A1 FINDINGS: Comparison is made with a previous study dated April 30, 2023. A portable AP view of the chest is dated 05/01/2023 at 5:01 AM. There is stable moderate cardiomegaly. No change in tubes or lines. There is pulmonary vascular congestion. There is moderate infiltrate at the left lower lung as well as diffuse mild infiltrates bilaterally. Infiltrateson the right appear slightly increased. No acute skeletal or soft tissue abnormalities. IMPRESSION:1. Diffuse mild infiltrates within the right lung are slightly increased from the previous study. There is stable moderate infiltrate at the left lower lung as well as mild infiltrates at the left mid and upper lung. at 0620 Reported and signed by: Martin Monk M.D. CC: Rishabh Manning MD; Darin Dumont MD Technologist: PERRI Edward) Trnscrd Date/Time/By: 05/01/2023 (619) : By: [email or web address] Orig Print D/T: S: 05/01/2023 (1966) PAGE 1 Signed ReportPO ARTERIAL BLOOD GAS 2023-05-01 05:01:00* Test Item Value Reference Range Interpretation Comme nts POC ARTERIAL BLOOD GAS PH (t est code = POCPHA) 7.502 7.35-7.45 HH POC ARTERIAL BLOOD GAS PCO2 (test code = UHCWIN5N) 30.3 mmHg 35.0-45 L POC TCO2 ARTERIAL (test code = POCTCO2) 24.7 POC ARTERIAL BLOOD GAS PO2 ( test code = PJYAK7W) 82.8 mmHg 80-100.0 N POC HCO3 ARTERIAL (test code = ZOEKCO1Y) 23.8 MMOL/L 22.0-26.0 N POC BASE EXCESS (test code = POCBEA) 0.6 MMOL/L -4.0-4.0 N POC O2 SATURATION (test code = POCO2S) 97.2 % 90-100 N FIO2 (test code = FIO2A) 40 % PaO2/FiO2 (test code = TJW1FRJ5) 207.00 mm/Hg ABG DELIVERY (test code = [...] (test code = ALLENS) N/A BASIC METABOLIC [id number] 05:01:00* Test Item Value Reference Range Interpretation [...] = POCGLU) 113 MG/DL 70-110 H HEMOGLOBIN [id number] 05:01:00* Test Item Value Reference Range Interpretation Comme nts HEMOGLOBIN ABG (test code = HGB/ABG) 8.8 G/DL 11.0-15.0 L [id number] 05:01:00* Test Item Value Reference Range Interpretation Comme nts HEMATOCRIT (test code = HCT/ABG) 26 % 33.0-45.0 L POC LACTIC [id number] 05:01:00* Test Item Value Reference Range Interpretation Comme nts POC LACTIC ACID (test code = POCLAC) 0.6 mmol/l 0.9-1.7 L POC ARTERIAL BLOOD [id number] 20:23:00* Test Item Value Reference Range Interpretation Comme nts POC ARTERIAL BLOOD GAS PH (t est code = POCPHA) 7.488 7.35-7.45 H POC ARTERIAL BLOOD GAS PCO2 (test code = LSVJBA5F) 30.5 mmHg 35.0-45 L POC TCO2 ARTERIAL (test code = POCTCO2) 24.0 POC ARTERIAL BLOOD GAS PO2 ( test code = ZLKFV7A) 121.4 mmHg 80-100.0 H POC HCO3 ARTERIAL (test code = WIPDCM1K) 23.1 MMOL/L 22.0-26.0 N POC BASE EXCESS (test code = POCBEA) -0.3 MMOL/L -4.0-4.0 N POC O2 SATURATION (test code = POCO2S) 99.1 % 90-100 N FIO2 (test code = FIO2A) 40 % PaO2/FiO2 (test code = UHC2TCY7) 303.50 mm/Hg ABG DELIVERY (test code = BETTY) Adult Vent ABG VENT MODE (test code = MODEA) CPAP/PS ABG PEEP (test code = PEEPA) 8 cmH2O ABG PRESSURE SUPPORT (test c ode = PSABG) 10 cmH2O ABG TEMPERATURE (test code = TEMPA) 98.6 F ABG SITE (test code = SITEA) Art Line DINA'S TEST (test code = ALLENS) N/A BASIC METABOLIC [id number] 20:23:00* Test Item Value Reference Range Interpretation [...] = POCGLU) 136 MG/DL 70-110 H HEMOGLOBIN [id number] 20:23:00* Test Item Value Reference Range Interpretation Comme nts HEMOGLOBIN ABG (test code = HGB/ABG) 8.8 G/DL 11.0-15.0 L [id number] 20:23:00* Test Item Value Reference Range Interpretation Comme nts HEMATOCRIT (test code = HCT/ABG) 26 % 33.0-45.0 L POC LACTIC [id number] 20:23:00* Test Item Value Reference Range Interpretation Comme nts POC LACTIC ACID (test code = POCLAC) 0.7 mmol/l 0.9-1.7 L - XR CHEST 1 [id number] 06:13:00 [facility] 1985 Sex: F FAX: Rishabh Manning MD [place]: St: ADM FAX: Darin Page [phone] Name: MARLENE MANCILLA [facility] [place] :1985 Age/S: 38/F [address] [place] [address] Unit #: [id number] Loc: G.M309 [place] [address] Phys: Rishabh Manning MD Acct: [id number] Dis Date: Status: ADM IN PHONE #: [phone] Exam Date: 04/30/2023 0519 FAX #: [phone] Reason: pneumonia EXAMS: CPT CODE: [id number] XR CHEST 1 V 45175 CLINICAL HISTORY: pneumonia. LOCATION: A1 FINDINGS: Comparison [...] Rishabh Manning MD; Darin Dumont MDTechnologist: RT Tenzin(R) Trnscrd Date/Time/By: 04/30/2023 (612) : By: [email or web address] Orig Print D/T: S: 04/30/2023 (619) PAGE 1 Signed Report COMPREHENSIVE METABOLIC [id number] 06:01:00* Test Item Value Reference Range Interpretation [...] code = ALKP) 129 IUnit/L 20-125 H [id number] 06:01:00* Test Item Value Reference Range Interpretation Comme nts PHOSPHOROUS (test code = PHOS) 5.4 MG/DL 2.5-4.9 H [id number] 06:01:00* Test Item Value Reference Range Interpretation Comme nts MAGNESIUM (test code = MAG) 2.35 mg/dL 1.6-2.6 N NOTE: NEW NORMAL RANGE CALCIUM [id number] 06:01:00* Test Item Value Reference Range Interpretation Comme nts CALCIUM IONIZED (test code = TRAVIS) 1.09 MMOL/L 1.09-1.30 N POC ARTERIAL BLOOD [id number] 05:32:00* Test Item Value Reference Range Interpretation Comme nts POC ARTERIAL BLOOD GAS PH (t est code = POCPHA) 7.411 7.35-7.45 N POC ARTERIAL BLOOD GAS PCO2 (test code = HBAKJD2L) 37.4 mmHg 35.0-45 N POC TCO2 ARTERIAL (test code = POCTCO2) 24.9 POC ARTERIAL BLOOD GAS PO2 ( test code = LRMTB3C) 98.7 mmHg 80-100.0 N POC HCO3 ARTERIAL (test code = [id number]) 23.7 MMOL/L 22.0-26.0 N POC BASE EXCESS (test code = POCBEA) -0.9 MMOL/L -4.0-4.0 N POC O2 SATURATION (test code = POCO2S) 97.8 % 90-100 N FIO2 (test code = FIO2A) 40.0 % PaO2/FiO2 (test code = [id number]) 246.70 mm/Hg ABG DELIVERY (test code = BETTY) Adult Vent ABG VENT MODE (test code = MODEA) AC ABG VENT RESP RATE (test cod e = RRA) 25 /MIN ABG TIDAL VOLUME (test code = TVA) 350 ml ABG PEEP (test code = PEEPA) 8 cmH2O ABG SITE (test code = SITEA) Art Line DINA'S TEST (test code = ALLENS) N/A CBC W/AUTO [id number] 05:26:00* Test Item Value Reference Range Interpretation [...] 0.00 x10 3/uL 0.0-0.1 N Novel Coronavirus [id number] 02:03:00* Test Item Value Reference Range Interpretation Comme nts Novel Coronavirus 2019 Inhouse (test code = [id number]) Negative Negative Positive resul ts are indicative of the presence [id number] RNA, clinical correlation with patient historyand other [...] the qualitative detection of nucleic acids from [id number]-EpY-1 virus and diagnosis of SARS-CoV-2 virusinfection. It is an Emergency Use Authorization (EUA) testauthorized by the [place] FDA. COMMENTS: SARS-CoV-2 PCRPOC ARTERIAL BLOOD [id number] 23:46:00* Test Item Value Reference Range Interpretation Comme nts POC ARTERIAL BLOOD GAS PH (t est code = POCPHA) 7.423 7.35-7.45 N POC ARTERIAL BLOOD GAS PCO2 (test code = [id number]) 37.7 mmHg 35.0-45 N POC TCO2 ARTERIAL (test code = POCTCO2) 25.8 POC ARTERIAL BLOOD GAS PO2 ( test code = MBKAH9I) 77.3 mmHg 80-100.0 L POC HCO3 ARTERIAL (test code = [id number]) 24.7 MMOL/L 22.0-26.0 N POC BASE EXCESS (test code = POCBEA) 0.2 MMOL/L -4.0-4.0 N POC O2 SATURATION (test code = POCO2S) 95.6 % 90-100 N FIO2 (test code = FIO2A) 40.0 % PaO2/FiO2 (test code = GNN4PFZ2) 193.20 mm/Hg ABG DELIVERY (test code = [...] N/A - XR ABDOMEN 1V (KUB)2023-04-29 16:57:00 [facility] : 1985 Sex: F FAX: Marlene Mann NP [phone] [place]: St: [facility] FAX: Darin Page [phone] ------ Name: MARLENE MANCILLA [facility]CA[facility] : 1985 Age/S: 38/F [address] [place] [address] Unit #: [id number] Loc: .[address] [address] Phys: Marlene Mann NP Acct: [id number] Dis Date: Status: ADM IN PHONE #: [phone] Exam Date: 04/29/2023 1620 FAX #: [phone] Reason: abdominal distention EXAMS: CPT CODE: [id number] XR ABDOMEN 1V (KUB) 58439 EXAM: ABDOMEN ONE VIEW INDICATION: Abdominal Distention LOCATION: B2 COMPARISON: April 20, 2023 TECHNIQUE: AP view of the abdomen. FINDINGS: There is an enteric tube with the tip overlying the stomach. There is mild dilatation of the proximal small bowel loops in the upper abdomen. No pneumoperitoneum is identified. No abnormal calcifications. The osseous structures are unremarkable. IMPRESSION: Mild dilatation of the proximal small bowel loops in the upper abdomen. This may be secondary to an ileus versus bowel obstruction. at 1657 Reported and signed by: Alicia Pendleton M.D. CC: Marlene Mann TRAFFIC RATE COMPUTER; Darin Dumont MD Technologist: RT Grazyna(Rafaela) Trnscrd Date/Time/By: 04/29/2023 (4577) : By: [email or web address] PAGE 1 Signed Report INFLUENZA A [id number] 14:09:00* Test Item Value Reference Range Interpretation Comme nts INFLUENZA A (test code = FLUAPCR) Negative Negative INFLUENZA B (test code = FLUBPCR) Negative Negative MYCOPLASMA PNEUMONIAE [id number] 14:09:00* Test Item Value Reference Range Interpretation Comme nts MYCOPLASMA PNEUMONIAE DNA (test code = MYCODNA) Negative Negative No Mycoplasma pn eumoniae DNA detected.This test was developed and its performance characteristicsdetermined by [facility]. It has not been cleared or approvedby the Food and Drug Administration. The FDA hasdetermined that such clearance or approval is notnecessary.Performed At: [facility] [address] [place], [place] [address]Nlaxwctz Sanjai MD Ph:[phone] POC ARTERIAL BLOOD [id number] 13:16:00* Test Item Value Reference Range Interpretation Comme nts POC ARTERIAL BLOOD GAS PH (t est code = POCPHA) 7.371 7.35-7.45 N POC ARTERIAL BLOOD GAS PCO2 (test code = BAMXHH8L) 43.7 mmHg 35.0-45 N POC TCO2 ARTERIAL (test code = POCTCO2) 26.7 POC ARTERIAL BLOOD GAS PO2 ( test code = URSAR8P) 137.7 mmHg 80-100.0 H POC HCO3 ARTERIAL (test code = AKWABT7H) 25.3 MMOL/L 22.0-26.0 N POC BASE EXCESS (test code = POCBEA) 0.1 MMOL/L -4.0-4.0 N POC O2 SATURATION (test code = POCO2S) 99.0 % 90-100 N FIO2 (test code = FIO2A) 45 % PaO2/FiO2 (test code = ABI5BZH3) 306.00 mm/Hg ABG DELIVERY (test code = BETTY) Adult Vent ABG VENT MODE (test code = MODEA) AC ABG VENT RESP RATE (test cod e = RRA) 25 /MIN ABG TIDAL VOLUME (test code = TVA) 350 ml ABG PEEP (test code = PEEPA) 10 cmH2O ABG SITE (test code = SITEA) Art Line - XR CHEST 1 [id number] 08:12:00 [facility] : 1985 Sex: F FAX: Rishabh Manning MD [place]: St: [facility] FAX: Darin Page [phone] Name: MARLENE MANCILLA [facility] : 1985 Age/S: 38/F [address] [place] [address] Unit #: [id number] Loc: G.M[address] [place] [address] Phys: Rishabh Manning MD Acct: [id number] Dis Date: Status: ADM IN PHONE #: [phone] Exam Date: 04/29/2023 0700 FAX #: [phone] Reason: pneumonia EXAMS: CPT CODE: [id number] XR CHEST 1 V 62070 EXAM: CHEST ONE VIEW INDICATION: PNEUMONIA LOCATION: [...] RT(R) Trnscrd Date/Time/By: 04/29/2023 (811) : By: [email or web address] Orig Print D/T: S: 04/29/2023 (8115) PAGE 1 Signed ReportCOMPREHENSIVE METABOLIC [id number] 05:43:00* Test Item Value Reference Range Interpretation [...] code = ALKP) 86 IUnit/L 20-125 N [id number] 05:43:00* Test Item Value Reference Range Interpretation Comme nts PHOSPHOROUS (test code = PHOS) 8.4 MG/DL 2.5-4.9 H [id number] 05:43:00* Test Item Value Reference Range Interpretation Comme nts MAGNESIUM (test code = MAG) 2.64 mg/dL 1.6-2.6 H NOTE: NEW NORMAL RANGE CALCIUM [id number] 05:43:00* Test Item Value Reference Range Interpretation Comme nts CALCIUM IONIZED (test code = TRAVIS) 1.05 MMOL/L 1.09-1.30 L POC ARTERIAL BLOOD [id number] 05:36:00* Test Item Value Reference Range Interpretation Comme nts POC ARTERIAL BLOOD GAS PH (t est code = POCPHA) 7.322 7.35-7.45 L POC ARTERIAL BLOOD GAS PCO2 (test code = WSFXBT7I) 53.6 mmHg 35.0-45 HH POC TCO2 ARTERIAL (test code = POCTCO2) 29.4 POC ARTERIAL BLOOD GAS PO2 ( test code = XUQKP0P) 110.1 mmHg 80-100.0 H POC HCO3 ARTERIAL (test code = IPQAWX5B) 27.7 MMOL/L 22.0-26.0 H POC BASE EXCESS (test code = POCBEA) 1.7 MMOL/L -4.0-4.0 N POC O2 SATURATION (test code = POCO2S) 97.8 % 90-100 N FIO2 (test code = FIO2A) 55 % PaO2/FiO2 (test code = EKU1QDE8) 200.18 mm/Hg ABG DELIVERY (test code = [...] (test code = ALLENS) Positive CBC W/AUTO [id number] 05:08:00* Test Item Value Reference Range Interpretation [...] x10 3/uL 0.0-0.1 N POC ARTERIAL BLOOD [id number] 01:49:00* Test Item Value Reference Range Interpretation Comme nts POC ARTERIAL BLOOD GAS PH (t est code = POCPHA) 7.307 7.35-7.45 L POC ARTERIAL BLOOD GAS PCO2 (test code = AIVEQU2C) 55.7 mmHg 35.0-45 HH POC TCO2 ARTERIAL (test code = POCTCO2) 29.5 POC ARTERIAL BLOOD GAS PO2 ( test code = ERHNJ4J) 243.2 mmHg 80-100.0 HH POC HCO3 ARTERIAL (test code = NWPJSV8V) 27.8 MMOL/L 22.0-26.0 H POC BASE EXCESS (test code = POCBEA) 1.5 MMOL/L -4.0-4.0 N POC O2 SATURATION (test code = POCO2S) 99.8 % 90-100 N FIO2 (test code = FIO2A) 55 % PaO2/FiO2 (test code = SRJ0KZS5) 442.18 mm/Hg ABG DELIVERY (test code = BETTY) Adult Vent ABG VENT MODE (test code = MODEA) SIMV ABG VENT RESP RATE (test cod e = RRA) 25 /MIN ABG TIDAL VOLUME (test code = TVA) 300 ml ABG PEEP (test code = PEEPA) 10 cmH2O ABG SITE (test code = SITEA) Art Line DINA'S TEST (test code = ALLENS) N/A AG ASPER [id number] 01:08:00* Test Item Value Reference Range Interpretation Comme nts AG ASPER GALACTOMANNAN (test code = ASPGAG) 0.06 Index 0.00-0.49 Performed A t: [facility] [id number] Earle S MD Ph:[phone] (1-3)-HNOQ-Z-[id number] 01:08:00* Test Item Value Reference Range Interpretation Comme nts (1-3)-SKQE-W-NSPHUQ (test code = BETADGLUCAN) Negative See_Comment [Automated messa ge] The system which generated this result transmitted reference range: (). The reference range was not used to interpret this result as normal/abnormal. HGB [id number] 23:39:00* Test Item Value Reference Range Interpretation Comme nts HEMOGLOBIN (test code = HGB) 8.8 g/dL 11.0-15.0 L HEMATOCRIT (test code = HCT) 27.9 % 33.0-45.0 L POC ARTERIAL BLOOD [id number] 17:54:00* Test Item Value Reference Range Interpretation Comme nts POC ARTERIAL BLOOD GAS PH (t est code = POCPHA) 7.333 7.35-7.45 L POC ARTERIAL BLOOD GAS PCO2 (test code = PDGCEM5C) 49.0 mmHg 35.0-45 H POC TCO2 ARTERIAL (test code = POCTCO2) 27.5 POC ARTERIAL BLOOD GAS PO2 ( test code = NNSZC4O) 275.1 mmHg 80-100.0 HH POC HCO3 ARTERIAL (test code = GLNTCN4B) 26.0 MMOL/L 22.0-26.0 N POC BASE EXCESS (test code = POCBEA) 0.2 MMOL/L -4.0-4.0 N POC O2 SATURATION (test code = POCO2S) 99.9 % 90-100 N FIO2 (test code = FIO2A) 55 % PaO2/FiO2 (test code = GFX4MUE8) 500.18 mm/Hg ABG DELIVERY (test code = BETTY) Adult Vent ABG VENT MODE (test code = MODEA) AC ABG VENT RESP RATE (test cod e = RRA) 25 /MIN ABG TIDAL VOLUME (test code = TVA) 300 ml ABG PEEP (test code = PEEPA) 14 cmH2O ABG SITE (test code = SITEA) Art Line HGB [id number] 16:57:00* Test Item Value Reference Range Interpretation Comme nts HEMOGLOBIN (test code = HGB) 9.2 g/dL 11.0-15.0 L HEMATOCRIT (test code = HCT) 28.8 % 33.0-45.0 L INFLUENZA A [id number] 15:27:00* Test Item Value Reference Range Interpretation Comme nts INFLUENZA A (test code = FLUAPCR) Negative Negative INFLUENZA B (test code = FLUBPCR) Negative Negative HGB [id number] 14:07:00* Test Item Value Reference Range Interpretation Comme nts HEMOGLOBIN (test code = HGB) 8.8 g/dL 11.0-15.0 L HEMATOCRIT (test code = HCT) 27.2 % 33.0-45.0 L - XR CHEST 1 [id number] 08:28:00 [facility] 1985 Sex: F FAX: Rishabh Manning MD [place]: St: ADM FAX: Kadie Hardin MD FAX: Darin Page [phone] Name: MARLENE MANCILLA [facility] [place] : 1985 Age/S: 38/F [address] [place] [address] Unit #: [id number] Loc: G.M309 [place] [address] Phys: Rishabh Manning MD Acct: [id number] Dis Date: Status: ADM IN PHONE #: [phone] Exam Date: 04/28/2023 0705 FAX #: [phone] Reason: pneumonia EXAMS: CPT CODE: [id number] XR CHEST 1 V 67753 EXAM: CHEST ONE VIEW INDICATION: PNEUMONIA LOCATION: [...] Tyson, RT(R); Sanjeev Cowart RT(R) Trnscrd Date/Time/By: 04/28/2023 (0 828) : By: 16 Orig Print D/T: S: 04/28/2023 (0842) PAGE 1 Signed Report POC ARTERIAL BLOOD [id number] 06:51:00* Test Item Value Reference Range Interpretation Comme nts POC ARTERIAL BLOOD GAS PH (t est code = POCPHA) 7.401 7.35-7.45 N POC ARTERIAL BLOOD GAS PCO2 (test code = UVIJMU2M) 43.1 mmHg 35.0-45 N POC TCO2 ARTERIAL (test code = POCTCO2) 28.1 POC ARTERIAL BLOOD GAS PO2 ( test code = LBUCJ4V) 50.0 mmHg 80-100.0 L POC HCO3 ARTERIAL (test code = FKQAYY6P) 26.7 MMOL/L 22.0-26.0 H POC BASE EXCESS (test code = POCBEA) 2.0 MMOL/L -4.0-4.0 N POC O2 SATURATION (test code = POCO2S) 84.8 % 90-100 L FIO2 (test code = FIO2A) 55 % PaO2/FiO2 (test code = NSA4LFV5) 90.90 mm/Hg ABG DELIVERY (test code = BETTY) Adult Vent ABG VENT MODE (test code = MODEA) SIMV ABG VENT RESP RATE (test cod e = RRA) 25 /MIN ABG TIDAL VOLUME (test code = TVA) 300 ml ABG PEEP (test code = PEEPA) 14 cmH2O ABG SITE (test code = SITEA) R Radial DINA'S TEST (test code = ALLENS) Positive COMPREHENSIVE METABOLIC [id number] 05:23:00* Test Item Value Reference Range Interpretation [...] code = ALKP) 77 IUnit/L 20-125 N [id number] 05:23:00* Test Item Value Reference Range Interpretation Comme nts PHOSPHOROUS (test code = PHOS) 7.3 MG/DL 2.5-4.9 H [id number] 05:23:00* Test Item Value Reference Range Interpretation Comme nts MAGNESIUM (test code = MAG) 2.67 mg/dL 1.6-2.6 H NOTE: NEW NORMAL RANGE CALCIUM [id number] 05:23:00* Test Item Value Reference Range Interpretation Comme nts CALCIUM IONIZED (test code = TRAVIS) 1.09 MMOL/L 1.09-1.30 N CBC W/AUTO [id number] 05:03:00* Test Item Value Reference Range Interpretation [...] NRBC#) 0.00 x10 3/uL 0.0-0.1 N HGB [id number] 22:59:00* Test Item Value Reference Range Interpretation Comme nts HEMOGLOBIN (test code = HGB) 9.0 g/dL 11.0-15.0 L HEMATOCRIT (test code = HCT) 27.3 % 33.0-45.0 L POC ARTERIAL BLOOD [id number] 12:12:00* Test Item Value Reference Range Interpretation Comme nts POC ARTERIAL BLOOD GAS PH (t est code = POCPHA) 7.364 7.35-7.45 N POC ARTERIAL BLOOD GAS PCO2 (test code = RVMFBN0X) 55.3 mmHg 35.0-45 HH POC TCO2 ARTERIAL (test code = POCTCO2) 33.2 POC ARTERIAL BLOOD GAS PO2 ( test code = TIXWB6E) 85.1 mmHg 80-100.0 N POC HCO3 ARTERIAL (test code = YZSQIG9A) 31.5 MMOL/L 22.0-26.0 HH POC BASE EXCESS (test code = POCBEA) 6.2 MMOL/L -4.0-4.0 H POC O2 SATURATION (test code = POCO2S) 95.8 % 90-100 N FIO2 (test code = FIO2A) 60.0 % PaO2/FiO2 (test code = NSW3DTQ3) 141.80 mm/Hg ABG DELIVERY (test code = BETTY) Adult Vent ABG VENT MODE (test code = MODEA) AC ABG VENT RESP RATE (test cod e = RRA) 25 /MIN ABG TIDAL VOLUME (test code = TVA) 300 ml ABG PEEP (test code = PEEPA) 17 cmH2O ABG SITE (test code = SITEA) Art Line DINA'S TEST (test code = ALLENS) N/A HGB [id number] 11:31:00* Test Item Value Reference Range Interpretation Comme nts HEMOGLOBIN (test code = HGB) 6.8 g/dL 11.0-15.0 L HEMATOCRIT (test code = HCT) 21.7 % 33.0-45.[address]/[id number] 08:38:00* Test Item Value Reference Range Interpretation [...] N FLUID RBC (test code = RBCFL) 26658 MM3 See_Comment N [Automated messa ge] The system which generated this result transmitted reference range: <=100,000. The reference range was not used to interpret this result as normal/abnormal. FLUID POLY (test code = POLYFL) 98 % FLUID LYMPHOCYTE (test code = LYMPHFL) 1 % FLUID MONOCYTE (test code = MONOFL) 1 % COMMENTS: Bronchoaveolar lavage- XR CHEST 1 [id number] 07:44:00 [facility] : 1985 Sex: F FAX: Rishabh Manning MD [place]: St: [facility] FAX: Kadie Hardin MD FAX: Darin Page [phone] Name: MARLENE MANCILLA [facility] Greg Bonilla : 1985 Age/S: 38/F [address] [place] [address] Unit #: [id number] Loc: G.M309 [place] [address] Phys: Rishabh Manning MD Acct: [id number] Dis Date: Status: ADM IN PHONE #: [phone] Exam Date: 04/27/2023 07 FAX #: [phone] Reason: pneumonia EXAMS: CPT CODE: [id number] XR CHEST 1 V 66816 EXAM: - XR CHEST 1 V Location code:C3 HISTORY: pneumonia COMPARISON: 04/26/2023 IMPRESSION: Single AP view of the chest is provided. Support lines and tubes are unchanged. Bilateral pulmonary opacities are similar. There is no pneumothorax. No additional interval change. Elec tronically Signed by Adrian Fry on 04/27/2023 at 0744 Reported and signed by: Ronald Fry M.D. CC: Rishabh Manning MD; Kadie Hardin MD; Darin Dumont MD Technologist: Karrie Tyson, RT(R); Sanjeev Cowart RT(R) Trnscrd Date/Time/By: 04/27/2023 (0744) : By: [email or web address] [...] code = ALKP) 54 IUnit/L 20-125 N [id number] 06:51:00* Test Item Value Reference Range Interpretation Comme nts PHOSPHOROUS (test code = PHOS) 4.7 MG/DL 2.5-4.9 N LACTIC DEHYDROGENASE(LDH)2023-04-27 06:51:00* Test Item Value Reference Range Interpretation Comme nts LACTIC DEHYDROGENASE(LDH) (t est code = LDH) 568 IUnits/L 84-246 H [id number] 06:51:00* Test Item Value Reference Range Interpretation Comme nts MAGNESIUM (test code = MAG) 2.64 mg/dL 1.6-2.6 H NOTE: NEW NORMAL RANGE CALCIUM [id number] 06:51:00* Test Item Value Reference Range Interpretation Comme nts CALCIUM IONIZED (test code = TRAVIS) 1.02 MMOL/L 1.09-1.30 L TOTAL IRON BINDING [id number] 06:46:00* Test Item Value Reference Range Interpretation Comme nts SERUM IRON (test code = IRON) 13 mcg/dL 35-150 L TOTAL IRON BINDING CAPACITY (test code = TIBC) 145 mcg/dL 260-445 L UIBC (test code = UIBC) 132 mcg/dL IRON SATURATION (test code = FESAT) 9.0 % 14-34 L CBC W/AUTO [id number] 06:27:00* Test Item Value Reference Range Interpretation [...] 2.0 % 0.3-2.3 N POC ARTERIAL BLOOD [id number] 05:07:00* Test Item Value Reference Range Interpretation Comme nts POC ARTERIAL BLOOD GAS PH (t est code = POCPHA) 7.469 7.35-7.45 H POC ARTERIAL BLOOD GAS PCO2 (test code = NDOAON3M) 46.1 mmHg 35.0-45 H POC TCO2 ARTERIAL (test code = POCTCO2) 34.9 POC ARTERIAL BLOOD GAS PO2 ( test code = VRKWA9E) 66.8 mmHg 80-100.0 L POC HCO3 ARTERIAL (test code = FZEQOO3D) 33.5 MMOL/L 22.0-26.0 HH POC BASE EXCESS (test code = POCBEA) 9.8 MMOL/L -4.0-4.0 H POC O2 SATURATION (test code = POCO2S) 93.9 % 90-100 N FIO2 (test code = FIO2A) 60 % PaO2/FiO2 (test code = OFD4RCN8) 111.33 mm/Hg ABG DELIVERY (test code = [...] (test code = ALLENS) N/A BASIC METABOLIC [id number] 05:07:00* Test Item Value Reference Range Interpretation [...] = POCGLU) 88 MG/DL 70-110 N HEMOGLOBIN [id number] 05:07:00* Test Item Value Reference Range Interpretation Comme nts HEMOGLOBIN ABG (test code = HGB/ABG) 6.3 G/DL 11.0-15.0 L [id number] 05:07:00* Test Item Value Reference Range Interpretation Comme nts HEMATOCRIT (test code = HCT/ABG) 19 % 33.0-45.0 L POC LACTIC [id number] 05:07:00* Test Item Value Reference Range Interpretation Comme nts POC LACTIC ACID (test code = POCLAC) 0.5 mmol/l 0.9-1.7 L HGB [id number] 00:51:00* Test Item Value Reference Range Interpretation Comme nts HEMOGLOBIN (test code = HGB) 6.9 g/dL 11.0-15.0 L HEMATOCRIT (test code = HCT) 20.7 % 33.0-45.0 L POC ARTERIAL BLOOD [id number] 00:26:00* Test Item Value Reference Range Interpretation Comme nts POC ARTERIAL BLOOD GAS PH (t est code = POCPHA) 7.549 7.35-7.45 HH POC ARTERIAL BLOOD GAS PCO2 (test code = SZIXZI0E) 41.1 mmHg 35.0-45 N POC TCO2 ARTERIAL (test code = POCTCO2) 37.1 POC ARTERIAL BLOOD GAS PO2 ( test code = YWKCH6C) 292.8 mmHg 80-100.0 HH POC HCO3 ARTERIAL (test code = EYYHFD4C) 35.9 MMOL/L 22.0-26.0 HH POC BASE EXCESS (test code = POCBEA) 13.5 MMOL/L -4.0-4.0 H POC O2 SATURATION (test code = POCO2S) 99.9 % 90-100 N FIO2 (test code = FIO2A) 100 % PaO2/FiO2 (test code = TBF2AMJ2) 292.80 mm/Hg ABG DELIVERY (test code = [...] (test code = ALLENS) N/A BASIC METABOLIC [id number] 00:26:00* Test Item Value Reference Range Interpretation [...] = POCGLU) 119 MG/DL 70-110 H HEMOGLOBIN [id number] 00:26:00* Test Item Value Reference Range Interpretation Comme nts HEMOGLOBIN ABG (test code = HGB/ABG) 6.6 G/DL 11.0-15.0 L [id number] 00:26:00* Test Item Value Reference Range Interpretation Comme nts HEMATOCRIT (test code = HCT/ABG) 19 % 33.0-45.0 L POC LACTIC [id number] 00:26:00* Test Item Value Reference Range Interpretation Comme nts POC LACTIC ACID (test code = POCLAC) 1.1 mmol/l 0.9-1.7 N Novel Coronavirus [id number] 20:48:00* Test Item Value Reference Range Interpretation Comme nts Novel Coronavirus 2019 Inhouse (test code = NXKMS86MK) Negative Negative Positive resul ts are indicative of the presence iqWPXN-StI-2 RNA, clinical correlation with patient historyand other [...] the qualitative detection of nucleic acids from kptGPNO-AlG-3 virus and diagnosis of SARS-CoV-2 virusinfection. It is an Emergency Use Authorization (EUA) testauthorized by the U.S. FDA. COMMENTS: SARS-CoV-2 PCRHGB [id number] 20:29:00* Test Item Value Reference Range Interpretation Comme nts HEMOGLOBIN (test code = HGB) 7.1 g/dL 11.0-15.0 L HEMATOCRIT (test code = HCT) 21.1 % 33.0-45.0 L POC ARTERIAL BLOOD [id number] 18:48:00* Test Item Value Reference Range Interpretation Comme nts POC ARTERIAL BLOOD GAS PH (t est code = POCPHA) 7.345 7.35-7.45 L POC ARTERIAL BLOOD GAS PCO2 (test code = HIOKZB1F) 45.7 mmHg 35.0-45 H POC TCO2 ARTERIAL (test code = POCTCO2) 26.4 POC ARTERIAL BLOOD GAS PO2 ( test code = WTGDP3Z) 104.1 mmHg 80-100.0 H POC HCO3 ARTERIAL (test code = IUOANQ7Q) 25.0 MMOL/L 22.0-26.0 N POC BASE EXCESS (test code = POCBEA) -0.7 MMOL/L -4.0-4.0 N POC O2 SATURATION (test code = POCO2S) 97.6 % 90-100 N FIO2 (test code = FIO2A) 100.0 % PaO2/FiO2 (test code = OFL5SUA9) 104.10 mm/Hg ABG DELIVERY (test code = [...] = ALLENS) N/A - XR CHEST 1 [id number] 17:56:00 [facility] : 1985 Sex: F FAX: Vik Tilley MD [phone] [place]: St: [facility] FAX: Kadie Hardin MD FAX: Sandra Page [phone] Name: MARLENE MANCILLA [facility] [place] : 1985 Age/S: 38/F [address] [place] [address] Unit #: [id number] Loc: [place] [address] Phys: Vik Hinds MD Acct: [id number] Dis Date: Status: ADM IN PHONE #: [phone] Exam Date: 04/26/2023 1720 FAX #: [phone] Reason: S/P INTUBATION EXAMS: CPT CODE: [id number] XR CHEST 1 V 31351 REASON FOR EXAM: S/P INTUBATION Exam Order Date: 34:45 PM Ordering M.Tequila: Vik Hinds MD PROCEDURE: - XR CHEST 1 V COMPARISON: Chest x-ray earlier this afternoon FINDINGS/ IMPRESSION: Patient has been intubated. ET tube terminates 4.5 cm above the andrews. Enteric suction tube has been inserted into the stomach. Worsening airspace disease in the right lung. Airspace disease in the left lung is unchanged. Heart and skeletal structures are unchanged. Location: H82 at 1756 Reported and signed by: Cyrus Lozano M.D. CC: Vik Hinds MD; Kadie Hardin MD; Darin Dumont MD Technologist: Antonio Cisneros RT(R) Trnscrd Date/Time/By: 04/26/2023 (7514) : By: [email or web address] [facility] Print D/T: S: 04/26/2023 (5292) PAGE 1 Signed Report- XR CHEST 1 [id number] 16:10:00[facility] : 1985 Sex: F FAX: Vik Tilley MD [phone] [place]: St: [facility] FAX: Kadie Hardin MD FAX: Darin Page [phone] Name: MARLENE MANCILLA [facility] : 1985 Age/S: 38/F [address] [place] [address] Unit #: [id number] Loc: G.M309 [place] [address] Phys: Vik Hinds MD Acct: [id number] Dis Date: Status: ADM IN PHONE #: [phone] Exam Date: 04/26/2023 1555 FAX #: [phone] Reason: SOB EXAMS: CPT CODE: [id number] XR CHEST 1 V 41968 EXAM: - XR CHEST 1 V CLINICAL HISTORY: SOB TECHNIQUE: Single frontal view. COMPARISON: Chest radiograph 04/22/2023 LOCATION: [facility] FINDINGS: The trachea appears normal. The mediastinum and cardiac silhouette are within normal limits for size. Moderate patchy bilateral airspace opacities throughout the lungs. No pleural effusions. Visualized soft tissues and osseous structures are grossly unremarkable. IMPRESSION: Moderate patchy bilateral airspace opacities, favoring multifocal infection. at 1610 Reported and signed by: Bjorn Hays D.O. CC: Vik Hinds MD; Kadie Hardin MD; Darin Dumont MD Technologist: RT Allie(R) Trnscrd Date/Time/By: 04/26/2023 (161) : By: [email or web address] Orig Print D/T: S: 04/26/2023 (3917) PAGE 1 Signed ReportHGB [id number] 13:49:00* Test Item Value Reference Range Interpretation Comme nts HEMOGLOBIN (test code = HGB) 8.1 g/dL 11.0-15.0 L HEMATOCRIT (test code = HCT) 24.5 % 33.0-45.0 L RESPIRATORY VIRUS PANEL [id number] 13:36:00* Test Item Value Reference Range Interpretation [...] RVP: YesDesired post - result action: De-escalate antibioticsPOC ARTERIAL BLOOD [id number] 08:06:00 * Test Item Value Reference Range Interpretation Comme nts POC ARTERIAL BLOOD GAS PH (t est code = POCPHA) 7.386 7.35-7.45 N POC ARTERIAL BLOOD GAS PCO2 (test code = HSNAWE8W) 27.3 mmHg 35.0-45 LL POC TCO2 ARTERIAL (test code = POCTCO2) 17.2 POC ARTERIAL BLOOD GAS PO2 ( test code = HSOZR5U) 105.9 mmHg 80-100.0 H POC HCO3 ARTERIAL (test code = PPNMGM5U) 16.4 MMOL/L 22.0-26.0 LL POC BASE EXCESS (test code = POCBEA) -8.6 MMOL/L -4.0-4.0 L POC O2 SATURATION (test code = POCO2S) 98.2 % 90-100 N FIO2 (test code = FIO2A) 100 % PaO2/FiO2 (test code = IBP6QDX2) 105.90 mm/Hg ABG DELIVERY (test code = BETTY) BiPAP ABG VENT MODE (test code = MODEA) BiLevel ABG VENT RESP RATE (test cod e = RRA) 16 /MIN ABG PEEP (test code = PEEPA) 6 cmH2O ABG PRESSURE SUPPORT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 automated exposure control, adjustment of the mA and/or kV according to patient size and/or use of iterative reconstruction technique. FINDINGS: Globes are intact. Intraorbital contents are normal. No acute fracture of the orbital rims or tiwari, sinus tiwari, zygomatic arches, nasal bone, anterior nasal spine, [...] RT(R) CTDI: DLP: Trnscb Date/Time: 04/20/2023 (2041) tJOSE [email or web address] Orig Print D/T: S: 04/20/2023 (2044) PAGE 1 Signed ReportWBC [id number] 20:19:00* Test Item Value Reference Range Interpretation [...] (test code = POLC) 1+ CBC W/AUTO [id number] 20:19:00* Test Item Value Reference Range Interpretation [...] = MDIFF) YES - CT C-SPINE W/O [id number] 20:19:00 [facility] GREG BONILLAName: TIMOTHY, [id number] : 1985 Sex: F Name: TRICIA [id number] [facility] Greg Bonilla : 1985 Age/S: 38 / F [address] [place] [address] Unit #: [id number] Loc: [place] [address] Phys: Shruti Eugene MD Acct: [id number] Dis Date: Status: [facility] ER PHONE #: [phone] Exam Date: 04/20/20231935 FAX #: [phone]: NECK PAIN EXAMS: CPT CODE: [id number] CT C-SPINE W/O CONT 63030 EXAMINATION: - CT C-SPINE W/O CONT INDICATION: [...] No suspicious osseous lesions. No evidence of traumaticmalalignment, vertebral body height loss, or fracture. Intervertebral disc spaces are grossly preserved. Partial opacification of left mastoid air cells. No mastoid fracture is seen. Fat stranding inthe subcutaneous fat of posterior triangle of right neck. Minimal fat stranding and midline base ofthe anterior neck. No focal hematoma or radiopaque foreign body. IMPRESSION: No acute osseous findings. Other findings above. at 2019 Reported and signed by: Haroon Valadez M.D. PAGE 1 Signed Report (CONTINUED) Name: [id number] [facility] Greg Bonilla : 1985 Age/S: 38 / F [address] [place] [address] Unit #: [id number] Loc: [place] [address] Phys: Shruti Eugene MD Acct: [id number] Dis Date: Status: REG ER PHONE #: [phone] Exam Date: 04/20/20231935 FAX #: [phone] Reason: NECK PAIN EXAMS: CPT CODE: [id number] CT C-SPINE W/O CONT 75200 (Continued) CC: Shruti Eugene MD Technologist:Asia Arellano, RT(R) CTDI: DLP: Trnscb Date/Time: 04/20/2023 (2018) tJOSE [email or web address] Orig Print D/T: S: 04/20/2023(2021) PAGE 2 Signed Report- XR PELVIS 1/2 [id number] 20:02:00 [facility] GREG BONILLAName: TIMOTHY, [id number] : 1985 Sex: F FAX: Shruti Eugene Fisk: St: REG Name: TIMOTHY,[id number] [facility] Greg NEWTON : 1985 Age/S: 38/F [address] [place] [address] Unit #: [id number] Loc: [place] [address] Phys: Shruti Eugene MD Acct: [id number] Dis Date: Status: REG ER PHONE #: [phone] Exam Date: 04/20/20231929 FAX #: [phone] Reason: PELVIC PAIN EXAMS: CPT CODE: [id number] XR PELVIS 1/2 VIEWS 37945 EXAM: - XR PELVIS 1/2 VIEWS LOCATION: H47 HISTORY: PELVIC PAIN COMPARISON: None available at the time of interpretation. FINDINGS: Single frontal view of the pelvis. No acute fracture or malalignment. No soft tissue findings are apparent. IMPRESSION: No acute findings. at 2001 Reported and signed by: James Garcia M.D. CC: Shruti Eugene MD Technologist: RT Jodie(Rafaela) Trnscrd Date/Time/By: 04/20/2023 (2001) : By: [email or web address] Orig Print D/T: S: 04/20/2023 (2004) PAGE 1 Signed Report- XR FOOT 2 VIEWS [id number] 19:58:00 [facility] GREG BONILLAName: TIMOTHY, [id number] : 1985 Sex: F FAX: Shruti Eugene Fisk: St: REG Name: TIMOTHY,[id number] [facility] : 1985 Age/S: 38/F [address] [place] [address] Unit #: [id number] Loc: [place] [address] Phys: Shruti Eugene MD Acct: [id number] Dis Date: Status: REG ER PHONE #: [phone] Exam Date: 04/20/20231929 FAX #: [phone] Reason: FOOT PAIN EXAMS: CPT CODE: [id number] XR FOOT 2 [place] [address] EXAM: - XR FOOT 2 VIEWS LT LOCATION: H47 HISTORY: FOOT PAIN COMPARISON: None available at the time ofinterpretation. FINDINGS: Frontal, oblique, and lateral views of the left foot are provided. Tibiotalar dislocation noted. Possible fracture fragment identified at the lateral aspect of the talus. Rec ommend ankle x-ray for further evaluation. IMPRESSION: As above. at 1957 Reported and signed by: James Garcia M.D. CC: Shruti Eugene MD Technologist: PERRI Feliciano) Trnscrd Date/Time/By: 04/20/2023 (1957) : By: [email or web address] Orig Print D/T: S: 04/20/2023 (2000) PAGE 1 Signed Report- CT HEAD/BRAIN W/O [id number] 19:55:00 [facility] GREG BONILLAName: TIMOTHY [id number] : 1985 Sex: F Name: TRICIA [id number] [facility] Greg Bonilla : 1985 Age/S: 38 / F [address] [place] [address] Unit #: [id number] Loc: [place] [address] Phys: Shruti Eugene MD Acct: [id number] Dis Date: Status: REG ER PHONE #: [phone] Exam Date: 04/20/20231935 FAX #: [phone] Reason: HEADACHE EXAMS: CPT CODE: [id number] CT HEAD/BRAIN W/O CONT 03904 EXAM: - CT HEAD/BRAIN W/O CONT LOCATION: H47 HISTORY: HEADACHE COMPARISON: None available at the time of interpretation. TECHNIQUE: Computerized tomography images from the skull base to the vertex were obtained. Coronal and sagittal reformatted images are provided. This exam was performed according to our departmental dose- optimization program, which includes automated exposure control, adjustment of the mA and/or kV according to patient size and/or use of iterative reconstruction technique FINDINGS: Brain: The brainparenchymal architecture is unremarkable. The brain parenchyma is age appropriate. There is no evidence of an acute territorial infarct. There is no [...] CT evidence of acute intracranial abnormality. at 1954 Reported and signed by: James Garcia M.D. PAGE 1 Signed Report (CONTINUED) Name: TIMOTHY,[id number] [facility] Greg NEWTON : 1985 Age/S: 38 / F [address] [place] [address] Unit #: [id number] Loc: [place] [address] Phys: Ethel Eugene MD Acct: [id number] Dis Date: Status: REG ER PHONE #: [phone] Exam Date: 04/20/20231935 FAX #: [phone] Reason: HEADACHE EXAMS: CPT CODE: [id number] CT HEAD/BRAIN W/O CONT 36353 (Continued) CC: Shruti Eugene MD Technologist:Asia Arellano, RT(R) CTDI: DLP: Trnscb Date/Time: 04/20/2023 (1954) [email or web address] Orig Print D/T: S: 04/20/2023 (1957) PAGE 2 Signed Report- XR ANKLE 2 VIEWS [id number] 19:53:00 [facility] GREG BONILLAName: TIMOTHY, [id number] : 1985 Sex: F FAX: Shruti Eugene Fisk: St: REG Name: [id number] [facility] Greg NEWTON : 1985 Age/S: 38/F [address] [place] [address] Unit #: [id number] Loc: [place] [address] Phys: Shruti Eugene MD Acct: [id number] Dis Date: Status: REG ER PHONE #: [phone] Exam Date: 04/20/20231929 FAX #: [phone] Reason: ANKLE PAIN EXAMS: CPT CODE: [id number] XR ANKLE 2 VIEWS LT [address]MDKMRYBYKYV: - XR ANKLE 2 VIEWS LT INDICATION: ANKLE PAIN COMPARISON: None available at time of dictation LOCATION: H96 FINDINGS/ IMPRESSION: 2 views were obtained. Medial dislocation of talar dome relative to the tibial plafond. Soft tissue swelling and gas. No evidence of fracture or radiopaque foreign body. at 1952 Reported and signed by: Haroon Valadez M.D. CC: Shruti Eugene MD Technologist: RT Jodie(Rafaela) Trnscrd Date/Time/By: 04/20/2023 (1952) : By: [email or web address] Orig Print D/T: S: 04/20/2023 (1956) PAGE 1 Signed Report- XR CHEST 1 [id number] 19:51:00[facility] GREG BONILLAName: TIMOTHY, [id number] : 1985 Sex: F FAX: Shruti Eugene Fisk: St: REG Name: TIMOTHY,[id number] [facility] : 1985 Age/S: 38/F [address] [place] [address] Bl Unit #: [id number] Loc: [place] [address] Phys: Shruti Eugene MD Acct: [id number] Dis Date: Status: REG ER PHONE #: [phone] Exam Date: 04/20/20231929 FAX #: [phone] Reason: CHEST PAIN EXAMS: CPT CODE: [id number] XR CHEST 1 V 74024 REASONFOR EXAM: CHEST PAIN Exam Order Date: 04/20/2023 6:59 PM Ordering M.Tequila: Shruti Eugene MD PROCEDURE: - XR CHEST 1 V COMPARISON: None FINDINGS: The lungs are clear. There is no pleural effusion or pneumothorax. Pulmonary vascularity is within normal limits. Cardiomediastinal silhouette is normal in size for technique. The mediastinal contours are within normal limits. Musculoskeletal structures are within normal limits. The visualized upper abdomen is within normal limits. IMPRESSION: No acute cardiopulmonary process. Location: 0 at 1950 Reported and signed by: Sebastian Figueroa M.D. CC: Shruti Eugene MD Technologist: RT Jodie(R) Trnscrd Date/Time/By: 04/20/2023 (1950) : By: [email or web address] Orig Print D/T: S: 04/20/2023 (1954) PAGE 1 Signed Report- XR TIBIA/FIBULA 2 V [id number] 19:49:00 [facility] GREG BONILLAName: TIMOTHY, [id number] : 1985 Sex: F FAX: Shruti Eugene Fisk: St: REG Name: TIMOTHY,[id number] [facility] Greg Bonilla : 1985 Age/S: 38/F [address] [place] [address] Unit #: [id number] Loc: [place] [address] Phys: Shruti Eugene MD Acct: [id number] Dis Date: Status: REG ER PHONE #: [phone] Exam Date: 04/20/20231929 FAX #: [phone] Reason: LEG PAIN EXAMS: CPT CODE: [id number] XR TIBIA/FIBUL[place] 2 [place] [address] LEFT TIBIA AND FIBULA 2 VIEWS Dictation location N 13 Clinical history left ankle open fracture TECHNIQUE: AP and lateral views were obtained over 4 cassettes. FINDINGS: The leg is imaged in a splint. There is an acute dislocation of the ankle mortise joint with the talus displaced and angulated m edially. Several bubbles of subcutaneous gas are seen [...] the talus may represent accessory ossicle versus chip fracture. Recommend follow-up 3 view ankle x-rays following reduction of the dislocation. at 1949 Reported and signed by: Noah Escobedo M.D. CC: Shruti Eugene MD Technologist: RT Jodie(R) Trnscrd Date/Time/By:04/20/2023 (1948) : By: Amber Orig Print D/T: S: 04/20/2023 (1951) PAGE 1 Signed ReportCOMPREHENSIVE METABOLIC [id number] 19:39:00* Test Item Value Reference Range Interpretation [...] code = ALKP) 50 IUnit/L 20-125 N [id number] 19:35:00* Test Item Value Reference Range Interpretation [...] for Legal orEmployment evaluation purposes. HCG SERUM [id number] 19:34:00* Test Item Value Reference Range Interpretation Comme nts HCG SERUM QUAL (test code = HCGQL) SERUM NEGATIVE NEGATIVE Transthoracic echo (TTE)2023-02-21 18:19:27* Test Item Value Reference Range Interpretation Comme nts Height (test code = 9293054193) 62 in Weight (test code = 6405369365) 147 lbs Systolic BP (test code = 9098385753) 135 mmHg Diastolic BP (test code = 9342386533) 90 mmHg Heart Rate (test code = 9006808354) 71 bpm BSA (test code = 8244455508) 1.68 m2 LVIDD (test code = 9371470635) 4.50 cm Left Ventricular End Diastolic Volume by Teichholz Method (test code = 2488164) 94.3 mL IVS (test code = 8458914416) 1.12 cm Interventricular Septum Diastolic Thickness by 2D (test code = 9013386) 1.12 cm LVPWD (test code = 8474129618) 1.13 cm PW (test code = 7242327864) 1.13 cm 0.6-1.1 EF(Teich) (test code = 2975634826) 61.90 % LVIDS (test code = 0963816571) 3.00 cm Left Ventricular End Systolic Volume by Teichholz Method (test code = 1644584) 35.9 mL FS (test code = 7655792846) 33 % EF - 2D (test code = 43191390) 61.90 % LVOT diameter (test code = 5637803272) 1.80 cm LVOT area (test code = 2312866502) 2.60 cm2 Ao root diam (test code = 4429623969) 2.47 cm Aortic root (test code = 5384941360) 2.47 cm Ao root annulus (test code = 5876749989) 2.47 cm LA size (test code = 2856279749) 4.0 cm TR Peak Elaine (test code = 9972186772) 206.3 cm/s Triscuspid Valve Regurgitation Peak Gradient (test code = 0813757271) 17.0 mmHg MV Peak E Elaine (test code = 6094856561) 104.5 cm/s MV Peak A Elaine (test code = 4659626118) 112.1 cm/s E/A ratio (test code = 9181288743) 0.93 ratio E wave decelartion time (test code = 7645441223) 0.24 s MV E/e' septal (test code = 3389614015) 6.3 cm/s LVOT stroke volume (test code = 4400342549) 57.50 cm3 LVOT peak elaine (test code = 7115681294) 120.3 cm/s LVOT mn grad (test code = 8219897308) 2.8 mmHg AV LVOT peak gradient (test code = 9408652601) 5.8 mmHg LVOT peak VTI (test code = 0983841776) 22.5 cm LV V1 mean (test code = 0478886856) 78.30 cm/s Aortic valve mean velocity (test code = 5088560026) 121.1 cm/s Ao peak ealine (test code = 6832574077) 182.4 cm/s Ao VTI (test code = 9527314151) 33.3 cm AV area by cont VTI (test code = 0641357229) 1.7 cm2 AV area peak elaine (test code = 1622092030) 1.7 cm2 Ao max PG (test code = 6709303296) 13.30 mm[Hg] AV peak gradient (test code = 8174859090) 13.3 mmHg AV valve area (test code = 8588382565) 1.73 cm2 AV mean gradient (test code = 6443599875) 6.6 mmHg Tapse (test code = 4078442436) 1.67 cm LAV(MOD-sp4) (test code = 7659619241) 40.90 mL LA Volume Index (BP) (test code = 3323332880) 25.1 mL/m2 LA volume (BP) (test code = 5518793642) 42.0 mL LAV(MOD-sp2) (test code = 6933747492) 41.30 mL IVC Diam Exp(MM) (test code = 8271990426) 1.60 cm IVC Diam Ins(MM) (test code = 4974515114) 0.49 cm Radiology Study observation (narrative) (test code = 04669-7) CHINO (test code = CHINO) ?Left?Ventricle: Left [...] 2D, color flow Doppler and spectral Doppler. [facility] [id number] 21:46:02* Test Item Value Reference Range Interpretation Comme nts LACTIC ACID (test code = 3878380855) 1.55 mmol/L 0.50-2.20 Lab Interpretation (test cod e = 40739-2) Normal [facility] [id number] 15:21:56* Test Item Value Reference Range Interpretation Comme nts TROPONIN I (test code = 2008985321) 0.040 ng/mL <=0.034 H CHINO (test code [...] of biotin. Lab Interpretation (test code = 54790-5) Abnormal [facility]MINAL STN-[id number] 15:21:56* Test Item Value Reference Range Interpretation Comme nts NT-proBNP (test code = 73558-4) 2780 pg/mL <=125 H CHINO (test code = CHINO) Positive: Heart Failure Likely Lab Interpretation (test code = 63491-5) Abnormal [facility]ABOLIC PANEL (28243)2023-02-19 15:21:55* Test Item Value Reference Range Interpretation Comme nts NA (test code = 9769731498) 137 mmol/L 135-145 K (test code = 3929916882) 3.9 mmol/L 3.5-5.0 CL (test code = 0188675548) 105 mmol/L 98-108 CO2 TOTAL (test code = 7452885861) 18 mmol/L 23-31 L AGAP (test code = 7948863023) 14 2-16 BUN (test code = 0814078988) 36 mg/dL 7-23 H GLUCOSE (test code = 3235962593) 137 mg/dL 70-110 H CREATININE (test code = 4635276412) 3.63 mg/dL 0.50-1.04 H TOTAL BILI (test code = 6590674283) 0.4 mg/dL 0.1-1.1 CALCIUM (test code = 3603115451) 9.2 mg/dL 8.6-10.6 T PROTEIN (test code = 3181599257) 7.3 g/dL 6.3-8.2 ALBUMIN (test code = 2833015319) 4.3 g/dL 3.5-5.0 ALK PHOS (test code = 3343194313) 78 U/L 34-122 ALTv (test code = 1742-6) 25 U/L 5-35 AST(SGOT) (test code = 1004310636) 19 U/L 13-40 eGFR (test code = 8764937597) 13.9 mL/min/1.73m2 CHINO (test code = CHINO) [...] imaging tests). Lab Interpretation (test code = 97429-7) Abnormal [facility] Hospital[facility]ID STIMULATING [id number] 15:21:55 * Test Item Value Reference Range Interpretation Comme nts TSH (test code = 5156687348) 2.11 See_Comment Biotin has been reported to cause a negative bias, interpret results relative to patient's use of biotin. [Automated message] The system which generated this result transmitted reference range: 0.45 - 4.70 mIU/L. The reference range was not used to interpret this result as normal/abnormal. Lab Interpretation (test code = 61457-6) Normal [facility] Whole [id number] 14:18:09* Test Item Value Reference Range Interpretation Comme nts LACTIC ACID (test code = 2521356620) 2.41 mmol/L 0.50-2.20 H Lab Interpretation (test cod e = 10987-0) Abnormal [facility] WITH [id number] 14:17:44* Test Item Value Reference Range Interpretation [...] g/dL 31.6-35.1 L RDW-SD (test code = 37865-3) 45.0 fL 39.0-49.9 RDW-CV (test code = 788-0) 13.3 % 12.0-15.5 PLT (test code = 777-3) 279 See_Comment [Automated message] The system which generated this result transmitted reference range: 166 - 358 10*3/?L. The reference range was not used to interpret this result as normal/abnormal. MPV (test code = 42078-8) 9.2 fL 9.5-12.9 L NRBC/100 WBC (test code = 3851622128) 0.0 See_Comment [Automated message] The system which generated this result transmitted reference range: 0.0 - 10.0 /100 WBCs. The reference range was not used to interpret this result as normal/abnormal. NRBC x10^3 (test code = 8678613140) See_Comment [Automated message] The system which generated this result transmitted reference range: 10*3/?L. The reference range was not used to interpret this result as normal/abnormal. GRAN MAT (NEUT) % (test code = 770-8) 77.8 % IMM GRAN % (test code = 0827443169) 2.00 % LYMPH % (test code = 736-9) 12.5 % MONO % (test code = 5905-5) 7.4 % EOS % (test code = 713-8) 0.1 % BASO % (test code = 706-2) 0.2 % GRAN MAT x10^3(ANC) (test code = 6609845537) 14.94 10*3/uL 1.88-7.09 H IMM GRAN x10^3 (test code = 3278381924) 0.38 10*3/uL 0.00-0.06 H LYMPH x10^3 (test code = 731-0) 2.41 10*3/uL 1.32-3.29 MONO x10^3 (test code = 742-7) 1.42 10*3/uL 0.33-0.92 H EOS x10^3 (test code = 711-2) 0.03-0.39 L BASO x10^3 (test code = 704-7) 0.04 10*3/uL 0.01-0.07 Lab Interpretation (test code = 00988-1) Abnormal [facility] SARS-COV-2 ANTIGEN (BINAX NOW)2023-02-18 22:37:00* Test Item Value Reference Range Interpretation Comme nts POCT SARS-COV-2 ANTIGEN (test code = 00028-1) Not Detected Not Detected On board controls acceptable with C Line (test code = 3574) Yes CHINO (test code = CHINO) accurate developme nt and interpretation of all internal controls Lab Interpretation (test code = 27775-4) Normal [facility] [id number] 22:37:00* Test Item Value Reference Range Interpretation Comme nts POCT PREG (test code = 1605) Negative On board controls acceptable with C Line (test code = 3574) Yes POCT PREG LOT # (test code = 3575) POCT PREG TEST DATE (test code = 3576) CHINO (test code = CHINO) accurate developme nt and interpretation of all internal controls Lab Interpretation (test code = 93313-9) Normal [facility] WITHOUT [id number] 14:56:30* Test Item Value Reference Range Interpretation [...] result as normal/abnormal. MPV (test code = 88770-8) 10.6 fL 9.5-12.9 RDW-CV (test code = 788-0) 14.1 % 12.0-15.5 RDW-SD (test code = 56586-6) 42.1 fL 39.0-49.9 NRBC x10^3 (test code = 5487166113) See_Comment [Automated messa ge] The system which generated this result transmitted reference range: 10*3/?L. The reference range was not used to interpret this result as normal/abnormal. NRBC/100 WBC (test code = 5329894445) 0.0 See_Comment [Automated messa ge] The system which generated this result transmitted reference range: 0.0 - 10.0 /100 WBCs. The reference range was not used to interpret this result as normal/abnormal. IPF % (test code = 4683592532) Lab Interpretation (test code = 09884-6) Abnormal [facility] Packed RBC (in units), 2 Units 2022-10-08 11:02:03* Test Item Value Reference Range Interpretation Comme nts Cross Match Result (test code = 4409) Compatible ISBT Blood Type Code (test code = 241666) 6200 Unit Blood Type (test code = 4410) A Pos Unit Number (test code = 4411) [id number] Blood Expiration Date & Time (test code = 614469) 546503604880 Status Information (test code = 4412) Issued Product Identification (test code = 4413) Red Blood Cells Product Code (test code = 4414) [id number] Performed at [facility] Laboratory Services - [facility] Blood [address] [place] [address]Wcix Free: [phone] No. [id number] [facility] Packed RBC (in units), 1 Units 2022-09-09 03:03:04* Test Item Value Reference Range Interpretation Comme nts Cross Match Result (test code = 4409) Compatible ISBT Blood Type Code (test code = 638164) 6200 Unit Blood Type (test code = 4410) A Pos Unit Number (test code = 4411) [id number] Blood Expiration Date & Time (test code = 652196) 718791858132 Status Information (test code = 4412) Issued Product Identification (test code = 4413) Red Blood Cells Product Code (test code = 4414) [id number] Performed at [facility] Blood [address] [address]Fhgn Free: [phone] No. [id number] [facility] Packed RBC (in units), 1 Units 2022-09-08 20:29:10* Test Item Value Reference Range Interpretation Comme nts Cross Match Result (test code = 4409) Compatible ISBT Blood Type Code (test code = 724160) 6200 Unit Blood Type (test code = 4410) A Pos Unit Number (test code = 4411) [id number] Blood Expiration Date & Time (test code = 920657) 798967998102 Status Information (test code = 4412) Issued Product Identification (test code = 4413) Red Blood Cells Product Code (test code = 4414) [id number] Performed at [facility] Blood [address] [address]Xmnt Free: [phone] No. [id number] [facility]OL[facility] (NA, K, CL, CO2, GLUCOSE, BUN, CREATININE, CA)2022-08-19 11:23:50* Test Item Value Reference Range Interpretation Comme nts NA (test code = 6891997439) 135 mmol/L 135-145 K (test code = 4879574642) 3.1 mmol/L 3.5-5.0 L CL (test code = 3446020273) 112 mmol/L 98-108 H CO2 TOTAL (test code = 4373660068) 12 mmol/L 23-31 L AGAP (test code = 5292281894) 11 2-16 BUN (test code = 0897565377) 33 mg/dL 7-23 H GLUCOSE (test code = 8213667805) 110 mg/dL 70-110 CREATININE (test code = 2849271016) 3.32 mg/dL 0.50-1.04 H CALCIUM (test code = 8371186705) 7.5 mg/dL 8.6-10.6 L eGFR (test code = 1751295376) 15.5 mL/min/1.73m2 CHINO (test code = CHINO) [...] imaging tests). Lab Interpretation (test code = 20339-4) Abnormal [facility]2023-04-20 11:23:50* Test Item Value Reference Range Interpretation Comme nts PHOSPHORUS (test code = 9237903007) 3.3 mg/dL 2.5-5.0 Lab Interpretation (test cod e = 79165-3) Normal [facility]2023-04-20 11:23:50* Test Item Value Reference Range Interpretation Comme nts MAGNESIUM (test code = 2025510614) 1.7 mg/dL 1.7-2.4 Lab Interpretation (test cod e = 65502-6) Normal [facility] WITH [id number] 11:05:40* Test Item Value Reference Range Interpretation [...] 34.1 g/dL 31.6-35.1 RDW-SD (test code = 88036-7) 45.5 fL 39.0-49.9 RDW-CV (test code = 788-0) 14.8 % 12.0-15.5 PLT (test code = 777-3) 186 See_Comment [Automated messa ge] The system which generated this result transmitted reference range: 166 - 358 10*3/?L. The reference range was not used to interpret this result as normal/abnormal. MPV (test code = 86388-0) 10.6 fL 9.5-12.9 NRBC/100 WBC (test code = 2409703698) 0.0 See_Comment [Automated me ssage] The system which generated this result transmitted reference range: 0.0 - 10.0 /100 WBCs. The reference range was not used to interpret this result as normal/abnormal. NRBC x10^3 (test code = 5285696950) See_Comment [Automated messa ge] The system which generated this result transmitted reference range: 10*3/?L. The reference range was not used to interpret this result as normal/abnormal. GRAN MAT (NEUT) % (test code = 770-8) 50.7 % IMM GRAN % (test code = 5649106656) 2.80 % LYMPH % (test code = 736-9) 35.2 % MONO % (test code = 5905-5) 9.8 % EOS % (test code = 713-8) 1.3 % BASO % (test code = 706-2) 0.2 % GRAN MAT x10^3(ANC) (test code = 0247208473) 2.31 10*3/uL 1.88-7.09 IMM GRAN x10^3 (test code = 0211935121) 0.13 10*3/uL 0.00-0.06 H LYMPH x10^3 (test code = 731-0) 1.61 10*3/uL 1.32-3.29 MONO x10^3 (test code = 742-7) 0.45 10*3/uL 0.33-0.92 EOS x10^3 (test code = 711-2) 0.06 10*3/uL 0.03-0.39 BASO x10^3 (test code = 704-7) 0.01-0.07 LG GRAN LYMPHS (test code = 2801161300) Rare Rare Lab Interpretation (test code = 74174-6) Abnormal [facility] Packed RBC (in units), 2 Units 2022-08-18 22:51:35* Test Item Value Reference Range Interpretation Comme nts Cross Match Result (test code = 4409) Compatible ISBT Blood Type Code (test code = 013955) 6200 Unit Blood Type (test code = 4410) A Pos Unit Number (test code = 4411) [id number] Blood Expiration Date & Time (test code = 254985) [id number] Status Information (test code = 4412) Issued Product Identification (test code = 4413) Red Blood Cells Product Code (test code = 4414) [id number] Performed at [facility] Laboratory Services [facility] Blood [address] [id number] Free: [phone] No. [id number] [facility] Jtlie3742-02-89 16:14:34* Test Item Value Reference Range Interpretation Comme nts LACTIC ACID (test code = 4032266793) 2.07 mmol/L 0.50-2.20 QUES Lab Interpretation (test cod e = 82605-4) [facility] Yiynp4371-47-82 07:18:27* Test Item Value Reference Range Interpretation Comme nts LACTIC ACID (test code = 5684202078) 2.25 mmol/L 0.50-2.20 H QUES Lab Interpretation (test cod e = 65185-9) Abnormal [facility] Acid Whole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 LT7766-37-24I02:31:441.2.840.493915.1.72.3.15|1.2.840.11 4350.1.13.104.2.7.2.727879_[id number] [facility]
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
[2023-05-25 10:46] VITALS: TEMP 97.9
[2023-05-25 10:47] VITALS: BP 144/91; O2SAT 95
--- NOTE | 2023-05-25 14:17 | RAD REPORT ---
EXAM DESCRIPTION: RAD - Chest Single View - 05/25/2023 5:46 am CLINICAL HISTORY: The patient is 38 years old and is Female; CHEST PAIN TECHNIQUE: Single view of the chest. COMPARISON: No relevant prior studies available. FINDINGS: Lungs: No pulmonary vascular congestion or consolidation. Pleural space: Unremarkable. No pneumothorax. Heart: The cardiac silhouette is enlarged versus artifact of AP technique. Mediastinum: Unremarkable. Bones/joints: No acute fracture visualized. Upper abdomen: No free air in the visualized upper abdomen. IMPRESSION: No acute cardiopulmonary process identified. Electronically signed by: Gina Olmos MD 05/25/2023 06:02 AM UNDER CUTTER Due to temporary technical issues with the PACS/Fluency reporting system, reports are being signed by the in house radiologist without review as a courtesy to ensure prompt reporting. The interpreting r adiologist is fully responsible for the content of the report.
== END ==
LOC: ER 04:47
DX: M54.50 Low back pain, unspecified (principal); S32.059A Unspecified fracture of fifth lumbar vertebra, initial encounter for closed fracture; S32.10XA Unspecified fracture of sacrum, initial encounter for closed fracture; S32.509A Unspecified fracture of unspecified pubis, initial encounter for closed fracture; Z87.828 Personal history of other (healed) physical injury and trauma; Z94.0 Kidney transplant status; Z88.8 Allergy status to other drugs, medicaments and biological substances
CPT/HCPCS: 71045; 99283